=== PATIENT | male | born 1960 | race Caucasian/White ===

== ENCOUNTER → 2016-06-29 | Outpatient (CLI) | payer MEDICARE, OTHER ==
[2016-06-29 13:21] LABS: ALT 30 U/L (21-72); AST 26 U/L (17-59); Alkaline Phosphatase 58 U/L (38-126); Anion Gap 11 mmol/L; Blood Urea Nitrogen 11 mg/dL (9-20); Calcium 9.7 mg/dL (8.4-10.2); Carbon Dioxide 28 mmol/L (22-30); Chloride 97 mmol/L (98-107); Cholesterol 129 mg/dL (<200); Glucose 217 mg/dL (74-99); HDL Cholesterol 68 mg/dL (40-60); Non-African American GFR(MDRD) >60 (>60 ml/min/1.73 sqM); Potassium 4.3 mmol/L (3.5-5.1); Sodium 136 mmol/L (137-145); Total Bilirubin 0.7 mg/dL (0.2-1.3); Total Protein 7.1 g/dL (6.3-8.2); Triglycerides 56 mg/dL (<150)
--- NOTE | 2016-06-29 15:24 | CT ---
EXAMINATION TYPE: CT abdomen wo/w con DATE OF EXAM: 06/29/2016 2:31 PM REFERENCE: Previous study dated 01/28/2016. HISTORY: Pancreatitis K86.1 CT DLP: 1421 mGy Automated exposure control for dose reduction was used. TECHNIQUE: Helical acquisition through the abdomen and pelvis was obtained following the oral ingesti on of with Oral Contrast and following intravenous administration of 100 ml mL of Omnipaque 300. The data was reformatted in axial, coronal and sagittal projections. FINDINGS: Visualized portions of the lungs are clear. There is no pleural or pericardial fluid. The heart is upper limits of normal in size. Within the abdomen, there are gallstones within the gallbladder. The liver and spleen appear normal. Both adrenal glands appear normal. Both kidneys demonstrate function and appear morphologically normal. There are multiple calcifications associated with the pancreas indicating chronic calcific pancreatit is. A cystic lesion in the mid body of the pancreas is decreased in size from 2.3 cm to 1.7 cm. And 1 .6 x 1.4 cm cyst in the head of pancreas is enlarged. 3.1 x 2.3 cm on today's exam. There is no surro unding inflammatory change. There is no significant retroperitoneal adenopathy. There is considerable stool within the colon. Small bowel loops are unremarkable. There is hypertrophic spondylosis within the spine. No free fluid and no free air is seen. IMPRESSION: 1. CHANGING PICTURE OF PANCREATITIS WITH WAXING AND WANING A PANCREATIC CYST. 2. NO SIGNIFICANT PERIPANCREATIC INFLAMMATION. 3. CHOLELITHIASIS. 4. BORDERLINE CARDIOMEGALY. 5. CONSTIPATION.
== END | disposition home or self-care (01) ==
LOC: RADCTMAIN 12:11
DX: K86.1 Other chronic pancreatitis (principal); K86.2 Cyst of pancreas; K80.20 Calculus of gallbladder without cholecystitis without obstruction
CPT/HCPCS: 80061; 80053; 84443; 86301; 82043; 74170; 36415; Q9967

== ENCOUNTER → 2016-11-02 | Outpatient (CLI) | payer MEDICARE, OTHER ==
[2016-11-02 10:43] LABS: ALT 33 U/L (21-72); AST 24 U/L (17-59); Alkaline Phosphatase 56 U/L (38-126); Anion Gap 9 mmol/L; Blood Urea Nitrogen 20 mg/dL (9-20); Calcium 9.6 mg/dL (8.4-10.2); Carbon Dioxide 27 mmol/L (22-30); Chloride 104 mmol/L (98-107); Glucose 79 mg/dL (74-99); Magnesium 1.9 mg/dL (1.6-2.3); Non-African American GFR(MDRD) >60 (>60 ml/min/1.73 sqM); Potassium 4.1 mmol/L (3.5-5.1); Sodium 140 mmol/L (137-145); Total Bilirubin 0.3 mg/dL (0.2-1.3); Total Protein 6.2 g/dL (6.3-8.2)
[2016-11-02 11:32] LABS: Vitamin B12 267 pg/mL (239-931)
== END ==
LOC: LABWHC1 09:57
PROVIDERS: ATTEND Internal Medicine Endocrinology, Diabetes & Metabolism
DX: E11.65 Type 2 diabetes mellitus with hyperglycemia (principal); R63.4 Abnormal weight loss
CPT/HCPCS: 36415; 80053; 82533; 82607; 83735; 84439; 84443; 84681

== ENCOUNTER 2016-11-19 21:03 | Inpatient (IN) | payer MEDICARE, OTHER ==
[2016-11-19] MEDS ORDERED: ACETAMINOPHEN TAB 500 MG TAB PO STA (21:34)
[2016-11-19] MEDS ORDERED: LORazepam 2 MG/ML SYRINGE IV STA (21:35)
[2016-11-19] MEDS ORDERED: MORPHINE SULFATE 4 MG/ML SYRINGE IVP STA (21:35)
[2016-11-19] MEDS ORDERED: LEVOFLOXACIN 750MG-D5W PMX 750 MG in DEXTROSE/WATER 1 150ML.BAG IVPB STA (21:36)
[2016-11-19] MEDS ORDERED: methylPREDNISolone SOD SUCCI 125 MG/2 ML VIAL IV STA (21:36)
[2016-11-19] MEDS ORDERED: IPRATROPIUM 0.5 MG/2.5 ML NEBU INHALATION STA (21:36)
[2016-11-19] MEDS ORDERED: ALBUTEROL NEBULIZED 2.5 MG/3 ML INHALATION STA (21:36)
[2016-11-19] MEDS ORDERED: SODIUM CHLORIDE 0.9% 500 ML IV STA (21:36)
[2016-11-19] MEDS ORDERED: PIPERACILLIN-TAZOBACTAM 3.375 GM in DEXTROSE/WATER 1 50ML.BAG IVPB STA (21:36)
[2016-11-19] MEDS ORDERED: SODIUM CHLORIDE 0.9% 1,000 ML IV STA ×2 (21:36)
[2016-11-19 21:58] LABS: INR 1.1 (<1.2); Partial Thromboplastin Time 28.9 sec (22.0-30.0); Prothrombin Time 10.8 sec (9.0-12.0)
[2016-11-19 21:59] LABS: Basophils % (A) 0 %; CH 30.9; CHCM 34.2; Eosinophils % (A) 0 %; HCT 37.7 % (39.0-53.0); HDW 2.33; HGB 12.5 gm/dL (13.0-17.5); Luc # (Auto) 0.14; Luc % (Auto) 3; Lymphocytes # (A) 0.4 k/uL (1.0-4.8); Lymphocytes % (A) 8 %; MCH 30.1 pg (25.0-35.0); MCHC 33.2 g/dL (31.0-37.0); MCV 90.6 fL (80.0-100.0); Mean Platelet Volume 7.2; Monocytes # (A) 0.5 k/uL (0-1.0); Monocytes % (A) 10 %; Neutrophils # (A) 3.6 k/uL (1.3-7.7); Neutrophils % (A) 79 %; RBC 4.16 m/uL (4.30-5.90); RDW 13.4 % (11.5-15.5); WBC 4.6 k/uL (3.8-10.6)
[2016-11-19] MEDS ORDERED: PNEUMONIA PROTOCOL UTILIZED 1 EACH MISC PO PRN (21:59)
[2016-11-19] MEDS ORDERED: ALBUTEROL NEBULIZED 2.5 MG/3 ML INHALATION PRN (21:59)
[2016-11-19 22:00] LABS: ALT 34 U/L (21-72); AST 23 U/L (17-59); Alkaline Phosphatase 67 U/L (38-126); Anion Gap 11 mmol/L; Blood Urea Nitrogen 16 mg/dL (9-20); Calcium 9.5 mg/dL (8.4-10.2); Carbon Dioxide 23 mmol/L (22-30); Chloride 93 mmol/L (98-107); Glucose 104 mg/dL (74-99); Magnesium 1.7 mg/dL (1.6-2.3); Non-African American GFR(MDRD) >60 (>60 ml/min/1.73 sqM); Potassium 4.3 mmol/L (3.5-5.1); Sodium 127 mmol/L (137-145); Total Bilirubin 0.9 mg/dL (0.2-1.3); Total Protein 6.8 g/dL (6.3-8.2)
--- NOTE | 2016-11-19 22:01 | ED ---
General Adult HPI - General Chief complaint: Chest Pain Stated complaint: chest pain/SOB Time Seen by Provider: 11/19/16 21:24 Source: patient, family, RN notes reviewed, old records reviewed Mode of arrival: wheelchair Limitations: no limitations - History of Present Illness Initial comments: This is a 56-year-old male in the ER for evaluation. Patient presents to ER for evaluation regarding shortness of breath, severe shortness of breath with cough and congestion. Fever. Chest pain. Patient has history of COPD multiple recent hospital admissions. Patient is in significant distress, he does admit to smoking cigarettes. No recent travel history - Related Data Home Medications Medication Instructions Recorded Confirmed Albuterol Nebulized [Ventolin 2.5 mg INHALATION RT-QID PRN 08/21/13 12/09/15 Nebulized] Aspirin 325 mg PO DAILY 08/21/13 12/09/15 Carvedilol [Coreg] 3.125 mg PO BID 08/21/13 12/09/15 Furosemide [Lasix] 40 mg PO BID 08/21/13 12/09/15 Ipratropium/Albuterol Sulfate 1 puff INHALATION RT-QID PRN 08/21/13 12/09/15 [Combivent Respimat Inhaler] Lisinopril [Zestril] 2.5 mg PO BID 08/21/13 12/09/15 Spironolactone [Aldactone] 25 mg PO BID 08/21/13 12/09/15 Atorvastatin [Lipitor] 20 mg PO HS 04/23/14 12/09/15 Budesonide-Formot 160-4.5 Mcg 2 puff INHALATION RT-BID 04/23/14 12/09/15 [Symbicort 160-4.5 Mcg Inhaler] cycloSPORINE [Restasis] 1 drop LEFT EYE DAILY 04/23/14 12/09/15 Acetaminophen with Codeine 1 tab PO Q4H PRN 12/09/15 12/09/15 [Acetaminophen with Codeine #4] Ciprofloxacin-Dexameth [Ciprodex 4 drop LEFT EAR BID 12/09/15 12/09/15 Otic Susp] HYDROcodone/APAP 7.5-325MG [[place] 1 tab PO Q4H PRN 12/09/15 12/09/15 7.5-325] Insulin Aspart [NovoLOG Flexpen] See Protocol SQ PC-TID 12/09/15 12/09/15 Insulin Detemir [Levemir Flextouch] 26 units SQ BID 12/09/15 12/09/15 Zolpidem [Ambien] 5 mg PO HS PRN 12/09/15 12/09/15 glipiZIDE [Glucotrol] 10 mg PO DAILY 12/09/15 12/09/15 metFORMIN HCL 1,000 mg PO BID 12/09/15 12/09/15 oxyCODONE-APAP 7.5-325MG [Percocet 1 tab PO Q8H PRN 12/09/15 12/09/15 7.5-325 mg] Allergies Allergy/AdvReac Type Severity Reaction Status Date / Time meperidine HCl [From Demerol] Allergy Severe Rapid Verified 11/19/16 22:17 Heart Rate/VOMITING ibuprofen [From Motrin] AdvReac Vomiting Verified 11/19/16 22:17 Review of Systems ROS Statement: Those systems with pertinent positive or pertinent negative responses have been documented in the HPI. ROS Other: All systems not noted in ROS Statement are negative. Past Medical History Past Medical History: Coronary Artery Disease (CAD), Heart Failure, COPD, Diabetes Mellitus, Hyperlipidemia, Hypertension, Renal Disease Additional Past Medical History / Comment(s): PANCREATITIS, O2 DEPENDANT 4 LITERS N/[place], arthritis History of Any Multi-Drug Resistant Organisms: None Reported Past Surgical History: AICD, Pacemaker Past Anesthesia/Blood Transfusion Reactions: No Reported Reaction Type of Cardiac Device: Permanent Pacemaker, Unknown Device Placement Date:: 2009 Past Psychological History: No Psychological Hx Reported Smoking Status: Current some day smoker Past Alcohol Use History: Occasional Past Drug Use History: None Reported - Past Family History Father Family Medical History: Congestive Heart Failure (CHF), COPD, Diabetes Mellitus Additional Family Medical History / Comment(s): mrsa, gbs, asbestoes exposure/ lings Mother Family Medical History: Diabetes Mellitus, Hypertension General Exam Limitations: no limitations General appearance: alert, anxious, in distress, cachectic Head exam: Present: atraumatic, normocephalic, normal inspection Eye exam: Present: normal appearance, PERRL, EOMI. Absent: scleral icterus, conjunctival injection, periorbital swelling ENT exam: Present: normal exam, mucous membranes moist Neck exam: Present: normal inspection. Absent: tenderness, meningismus, lymphadenopathy Respiratory exam: Present: respiratory distress, wheezes, accessory muscle use, decreased breath sounds, prolonged expiratory. Absent: rales, rhonchi, stridor Cardiovascular Exam: Present: normal rhythm, tachycardia, normal heart sounds. Absent: systolic murmur, diastolic murmur, rubs, gallop, clicks GI/Abdominal exam: Present: soft, normal bowel sounds. Absent: distended, tenderness, guarding, rebound, rigid Extremities exam: Present: normal inspection, full ROM, normal capillary refill. Absent: tenderness, pedal edema, joint swelling, calf tenderness Back exam: Present: normal inspection Neurological exam: Present: alert, oriented X3, CN II-XII intact Psychiatric exam: Present: normal affect, normal mood Skin exam: Present: warm, dry, intact, normal color. 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 She was on BiPAP EKG Findings - EKG Comments: EKG Findings:: EKG shows sinus tachycardia rate of 129, TN 140, QRS 96, QTc 460 Medical Decision Making - Medical Decision Making 56 mailed to the ER for reevaluation significant shortness of breath or chest pain. Patient has positive pneumonia positive fever and severe respiratory failure on BiPAP. Patient be admitted for cardiopulmonary resuscitation evaluation - Lab Data Result diagrams: 11/19/16 21:35 11/19/16 21:35 Lab Results 11/19/16 11/19/16 11/19/16 Range/Units 21:35 21:35 21:35 WBC 4.6 (3.8-10.6) k/uL RBC 4.16 L (4.30-5.90) m/uL Hgb 12.5 L (13.0-17.5) gm/dL Hct 37.7 L (39.0-53.0) % MCV 90.6 (80.0-100.0) fL MCH 30.1 (25.0-35.0) pg MCHC 33.2 (31.0-37.0) g/dL RDW 13.4 (11.5-15.5) % Plt Count 180 (150-450) k/uL Neutrophils % 79 % Lymphocytes % 8 % Monocytes % 10 % Eosinophils % 0 % Basophils % 0 % Neutrophils # 3.6 (1.3-7.7) k/uL Lymphocytes # 0.4 L (1.0-4.8) k/uL Monocytes # 0.5 (0-1.0) k/uL Eosinophils # 0.0 (0-0.7) k/uL Basophils # 0.0 (0-0.2) k/uL PT 10.8 (9.0-12.0) sec INR 1.1 (<1.2) APTT 28.9 (22.0-30.0) sec Sodium 127 L (137-145) mmol/L Potassium 4.3 (3.5-5.1) mmol/L Chloride 93 L (98-107) mmol/L Carbon Dioxide 23 (22-30) mmol/L Anion Gap 11 mmol/L BUN 16 (9-20) mg/dL Creatinine 0.90 (0.66-1.25) mg/dL Est GFR (MDRD) Af Amer >60 (>60 ml/min/1.73 sqM) Est GFR (MDRD) Non-Af >60 (>60 ml/min/1.73 sqM) Glucose 104 H (74-99) mg/dL POC Glucose (mg/dL) (75-99) mg/dL POC Glu Chemic Mangler ID Plasma Lactic Acid Iam (0.7-2.0) mmol/L Calcium 9.5 (8.4-10.2) mg/dL Magnesium 1.7 (1.6-2.3) mg/dL Total Bilirubin 0.9 (0.2-1.3) mg/dL AST 23 (17-59) U/L ALT 34 (21-72) U/L Alkaline Phosphatase 67 (38-126) U/L Total Protein 6.8 (6.3-8.2) g/dL Albumin 4.3 (3.5-5.0) g/dL 11/19/16 11/19/16 Range/Units 21:35 21:58 WBC (3.8-10.6) k/uL RBC (4.30-5.90) m/uL Hgb (13.0-17.5) gm/dL Hct (39.0-53.0) % MCV (80.0-100.0) fL MCH (25.0-35.0) pg MCHC (31.0-37.0) g/dL RDW (11.5-15.5) % Plt Count (150-450) k/uL Neutrophils % % Lymphocytes % % Monocytes % % Eosinophils % % Basophils % % Neutrophils # (1.3-7.7) k/uL Lymphocytes # (1.0-4.8) k/uL Monocytes # (0-1.0) k/uL Eosinophils # (0-0.7) k/uL Basophils # (0-0.2) k/uL PT (9.0-12.0) sec INR (<1.2) APTT (22.0-30.0) sec Sodium (137-145) mmol/L Potassium (3.5-5.1) mmol/L Chloride (98-107) mmol/L Carbon Dioxide (22-30) mmol/L Anion Gap mmol/L BUN (9-20) mg/dL Creatinine (0.66-1.25) mg/dL Est GFR (MDRD) Af Amer (>60 ml/min/1.73 sqM) Est GFR (MDRD) Non-Af (>60 ml/min/1.73 sqM) Glucose (74-99) mg/dL POC Glucose (mg/dL) 109 H (75-99) mg/dL POC Glu Chemic Mangler Janeth Lopez Plasma Lactic Acid Iam 0.8 (0.7-2.0) mmol/L Calcium (8.4-10.2) mg/dL Magnesium (1.6-2.3) mg/dL Total Bilirubin (0.2-1.3) mg/dL AST (17-59) U/L ALT (21-72) U/L Alkaline Phosphatase (38-126) U/L Total Protein (6.3-8.2) g/dL Albumin (3.5-5.0) g/dL - Radiology Data Radiology results: report reviewed (Chest x-ray is positive for pneumonia), image reviewed Critical Care Time Critical Care Time: Yes Total Critical Care Time: 31 Disposition Clinical Impression: COPD (chronic obstructive pulmonary disease), Nosocomial pneumonia, Hypoxia, Respiratory failure Disposition: ADMITTED IP TO THIS HOSP Condition: Serious Referrals: Yusuf Lind MD [Primary Care Provider] - 1-2 days
--- NOTE | 2016-11-19 22:02 | XR ---
EXAMINATION TYPE: XR chest 1V portable DATE OF EXAM: 11/19/2016 COMPARISON: 12/09/2015 HISTORY: Chest pain and short of breath TECHNIQUE: Single frontal view of the chest is obtained. FINDINGS: There is some blunting of left costophrenic angle. There is infiltrate in the left lower l obe behind the heart. There is no heart failure. Heart size is normal. There is a left axillary pacem bea with the lead tip in the right ventricle. There are no hilar masses. IMPRESSION: There is new left lower lobe pneumonic infiltrate compared to last exam. No heart failur e. There is probably also a minimal right paraspinal right lower lobe new infiltrate.
[2016-11-19 22:15] LABS: Glucose,Whole Blood 109 mg/dL (75-99)
[2016-11-19 22:49] LABS: Creatine Kinase MB 0.3 ng/mL (0.0-2.4); Troponin I 0.033 ng/mL (0.000-0.034)
[2016-11-20 00:07] LABS: Glucose,Whole Blood 161 mg/dL (75-99)
[2016-11-20] MEDS ORDERED: PIPERACILLIN-TAZOBACTAM 3.375 GM in DEXTROSE/WATER 1 50ML.BAG IVPB STA (01:13)
[2016-11-20] MEDS: SODIUM CHLORIDE 0.9% 1,000 ML IV SCH ×4 (01:31→21:34)
[2016-11-20 07:06] LABS: Glucose,Whole Blood 302 mg/dL (75-99)
--- NOTE | 2016-11-20 07:19 | XR ---
EXAMINATION TYPE: XR chest 1V portable DATE OF EXAM: 11/20/2016 COMPARISON: 11/19/2016 HISTORY: Shortness of breath TECHNIQUE: Single frontal view of the chest is obtained. FINDINGS: The heart is enlarged diffuse hyperinflation. Cardiac device seen. Arthropathy of the shou lders noted. Subsegmental consolidation and tiny left effusion. Subsegmental changes in the right per ihilar region remain. Underlying COPD noted. Arthropathy shoulders. IMPRESSION: 1. Stable left lower lobe infiltrate and tiny effusion. 2. COPD with right perihilar infiltrate.
[2016-11-20] MEDS: IPRATROPIUM-ALBUTEROL 3 ML NEB INHALATION SCH ×4 (08:34→20:41)
[2016-11-20 09:14] VITALS: RESP 20
[2016-11-20] MEDS ORDERED: INSULIN DETEMIR 100 UNIT/ML 10 ML VIAL SQ SCH (09:30)
[2016-11-20] MEDS ORDERED: INSULIN LISPRO (humaLOG) 300 UNIT/3 ML VIAL SQ ONE (09:31)
[2016-11-20 09:45] LABS: Glucose,Whole Blood 333 mg/dL (75-99)
[2016-11-20] MEDS: PIPERACILLIN-TAZOBACTAM 3.375 GM in DEXTROSE/WATER 1 50ML.BAG IVPB SCH ×3 (09:50→23:31)
[2016-11-20] MEDS: ENOXAPARIN 40 MG/0.4 ML SYRINGE SQ SCH (09:50)
[2016-11-20 11:50] LABS: Glucose,Whole Blood 542 mg/dL (75-99)
--- NOTE | 2016-11-20 12:11 | P.CNPUL ---
History of Present Illness Consult date: 11/20/16 Requesting physician: Yusuf Lind Reason for consult: dyspnea Chief complaint: Shortness of breath, cough and congestion. Chest pain History of present illness: This is a very pleasant 56-year-old gentleman who follows with Dr. Lind as his primary care physician. He has a history of coronary artery disease with ischemic cardiomyopathy status post AICD placement, pancreatitis with previous alcohol abuse, diabetes mellitus, hypertension, hyperlipidemia, renal disease. The patient also has significant chronic obstructive pulmonary disease and is oxygen dependent usually on 4 L in the outpatient setting. Unfortunately he continues to smoke. He follows with Dr. Khanna in our office for the same. He is maintained on Symbicort and Combivent in the outpatient setting. He presented here to the emergency room yesterday with complaints of chest pain, shortness of breath cough and congestion. His chest x-ray revealed a left lower lobe pneumonic infiltrate. There is a minimal right perihilar infiltrate as well. He did present with a T-max of 102.5. No leukocytosis. Hemodynamically stable. He is maintaining good O2 saturations in the 90s on the 4 L/m per nasal cannula. Sodium was low at 127. Review of Systems 14 point review of system was conducted. All negative other than as mentioned in the HPI. Past Medical History Past Medical History: Coronary Artery Disease (CAD), Heart Failure, COPD, Diabetes Mellitus, Hyperlipidemia, Hypertension, Renal Disease Additional Past Medical History / Comment(s): PANCREATITIS, O2 DEPENDANT 4 LITERS N/[place], arthritis. bone infection L ear, hole in eardrum. History of Any Multi-Drug Resistant Organisms: None Reported Past Surgical History: AICD, Pacemaker Past Anesthesia/Blood Transfusion Reactions: No Reported Reaction Type of Cardiac Device: Permanent Pacemaker, Unknown Device Placement Date:: 2009 Past Psychological History: No Psychological Hx Reported Smoking Status: Current some day smoker Past Alcohol Use History: Occasional Additional Past Alcohol Use History / Comment(s): started smoking age 8, smoked 2 ppd, quit 2012 after severl attempts to quit, drinks occassionaly Past Drug Use History: None Reported - Past Family History Father Family Medical History: Congestive Heart Failure (CHF), COPD, Diabetes Mellitus Additional Family Medical History / Comment(s): mrsa, gbs, asbestoes exposure/ lings Mother Family Medical History: Diabetes Mellitus, Hypertension Medications and Allergies Home Medications Medication Instructions Recorded Confirmed Type Albuterol Nebulized [Ventolin 2.5 mg INHALATION RT-QID PRN 08/21/13 11/20/16 History Nebulized] Furosemide [Lasix] 40 mg PO BID 08/21/13 11/20/16 History Ipratropium/Albuterol Sulfate 1 puff INHALATION RT-QID PRN 08/21/13 11/20/16 History [Combivent Respimat Inhaler] Lisinopril [Zestril] 2.5 mg PO BID 08/21/13 11/20/16 History Spironolactone [Aldactone] 25 mg PO DAILY 08/21/13 11/20/16 History Insulin Detemir [Levemir Flextouch] 23 units SQ BID 12/09/15 11/20/16 History glipiZIDE [Glucotrol] 15 mg PO DAILY 12/09/15 11/20/16 History metFORMIN HCL 1,000 mg PO BID 12/09/15 11/20/16 History Fluticasone/Vilanterol [Breo 1 puff INHALATION RT-DAILY 11/20/16 11/20/16 History Ellipta 200-25 Mcg INH] Hydrocodone/Acetaminophen [[place] 1 tab PO Q4H PRN 11/20/16 11/20/16 History 10-325] Lipase/Protease/Amylase [Alesia Dr 1 cap PO TID 11/20/16 11/20/16 History 36,000 Units Capsule] Metoprolol Succinate (ER) [Toprol 50 mg PO DAILY 11/20/16 11/20/16 History Xl] Allergies Allergy/AdvReac Type Severity Reaction Status Date / Time meperidine HCl [From Demerol] Allergy Severe Rapid Verified 11/19/16 22:17 Heart Rate/VOMITING ibuprofen [From Motrin] AdvReac Vomiting Verified 11/19/16 22:17 Physical Exam Vitals: Vital Signs Temp Pulse Pulse Pulse Resp BP BP 11/20/16 08:47 96 11/20/16 08:34 92 11/20/16 08:00 98.9 F 90 20 118/72 11/20/16 03:46 98.6 F 97 24 140/85 11/20/16 00:00 98.6 F 112 H 30 H 116/76 11/19/16 23:42 11/19/16 23:12 99.0 F 126 H 30 H 109/62 11/19/16 22:38 98.6 F 112 H 30 H 116/76 11/19/16 22:29 128 H 11/19/16 22:00 127 H 11/19/16 21:45 125 H 11/19/16 21:27 129 H 11/19/16 21:22 102.5 F H 129 H 40 H 126/76 Pulse Ox 11/20/16 08:47 11/20/16 08:34 11/20/16 08:00 96 11/20/16 03:46 98 11/20/16 00:00 100 11/19/16 23:42 100 11/19/16 23:12 98 11/19/16 22:38 100 11/19/16 22:29 11/19/16 22:00 11/19/16 21:45 11/19/16 21:27 11/19/16 21:22 95 Intake and Output 11/19/16 11/20/16 11/20/16 22:59 06:59 14:59 Intake Total 100 1160 Output Total 800 Balance -700 1160 Intake: Intake, IV Titration 100 800 Amount Sodium Chloride 0.9% 1, 100 800 000 ml @ 100 mls/hr IV . Q10H JOSY Rx#:[id number] Oral 360 Output: Urine 800 Other: # Voids 1 Weight 55 kg 53 kg GENERAL EXAM: Alert, weak, comfortable in no apparent distress. HEAD: Normocephalic. EYES: Normal reaction of pupils, equal size. NOSE: Clear with pink turbinates. THROAT: No erythema or exudates. NECK: No masses, no JVD. CHEST: No chest wall deformity. LUNGS: Equal air entry with crackles in the posterior bases more so on the left. Diminished. CVS: S1 and S2 normal with no audible murmurs, regular rhythm. ABDOMEN: No hepatosplenomegaly, normal bowel sounds, no guarding or rigidity. SPINE: No scoliosis or deformity SKIN: No rashes CENTRAL NERVOUS SYSTEM: No focal deficits, tone is normal in all 4 extremities. Extremities: There is trace peripheral edema. No clubbing, no cyanosis. Peripheral pulses are intact. Results - Laboratory Findings CBC and BMP: 11/19/16 21:35 11/19/16 21:35 PT/INR, D-dimer PT 10.8 sec (9.0-12.0) 11/19/16 21:35 INR 1.1 (<1.2) 11/19/16 21:35 Abnormal lab findings: Abnormal Labs 11/19/16 11/19/16 11/19/16 21:35 21:35 21:35 RBC 4.16 L Hgb 12.5 L Hct 37.7 L Lymphocytes # 0.4 L Sodium 127 L Chloride 93 L Glucose 104 H POC Glucose (mg/dL) Total Creatine Kinase 33 L 11/19/16 11/19/16 11/20/16 21:58 23:55 07:02 RBC Hgb Hct Lymphocytes # Sodium Chloride Glucose POC Glucose (mg/dL) 109 H 161 H 302 H Total Creatine Kinase 11/20/16 11/20/16 09:32 11:49 RBC Hgb Hct Lymphocytes # Sodium Chloride Glucose POC Glucose (mg/dL) 333 H 542 H Total Creatine Kinase - Diagnostic Findings Chest x-ray: image reviewed Assessment and Plan Plan: Impression: #1 Acute community-acquired left lower lobe pneumonia. #2 Acute exacerbation of chronic obstructive pulmonary disease secondary to above. #3 Chronic and ongoing tobacco dependence. #4 Coronary artery disease. #5 Ischemic cardiomyopathy status post AICD placement. #6 History of pancreatitis. #7 History of previous alcohol abuse. #8 Diabetes mellitus with steroid-induced hyperglycemia. #9 Hypertension. #10 Hyperlipidemia. Plan: The patient was seen and evaluated by Dr. Ray. His chest x-rays and labs were reviewed. We will continue with his current medications including DuoNeb inhalations 4 times a day and when necessary, Symbicort and antibiotics in the form of Zosyn and Levaquin. He is on Lovenox for DVT prophylaxis. We will increase his activity as tolerated. We'll continue to follow.
[2016-11-20] MEDS ORDERED: INSULIN LISPRO (humaLOG) 300 UNIT/3 ML VIAL SQ STA (12:12)
[2016-11-20 12:13] LABS: Glucose,Whole Blood 540 mg/dL (75-99)
[2016-11-20] MEDS ORDERED: INSULIN REGULAR BOLUS (FROM DRIP BAG) IV ONE (12:17)
[2016-11-20] MEDS ORDERED: INSULIN LISPRO (humaLOG) 300 UNIT/3 ML VIAL SQ SCH ×5 (12:30)
[2016-11-20 12:42] VITALS: BMI 17.2
[2016-11-20 13:02] LABS: Glucose,Whole Blood 545 mg/dL (75-99)
[2016-11-20] MEDS: INSULIN REGULAR 100 UNIT in SODIUM CHLORIDE 0.9% 100 ML IV SCH ×6 (13:06→20:14)
[2016-11-20] MEDS: INSULIN LISPRO (humaLOG) 300 UNIT/3 ML VIAL SQ SCH ×2 (13:18→17:17)
[2016-11-20] MEDS: HYDROcodone/APAP 10-325MG 1 EACH TAB PO PRN ×2 (13:30→23:45)
[2016-11-20 13:38] LABS: Glucose,Whole Blood >600 mg/dL (75-99)
[2016-11-20 14:19] LABS: Hemoglobin A1C 11.1 % (4.2-6.1)
[2016-11-20 14:37] LABS: Glucose,Whole Blood 498 mg/dL (75-99)
[2016-11-20 15:15] LABS: Glucose,Whole Blood 462 mg/dL (75-99)
[2016-11-20] MEDS: LISINOPRIL 2.5 MG TAB PO SCH ×2 (15:37→20:04)
[2016-11-20] MEDS: methylPREDNISolone SOD SUCCI 125 MG/2 ML VIAL IV SCH ×3 (15:37→23:30)
[2016-11-20] MEDS: FUROSEMIDE 40 MG TAB PO SCH ×2 (15:37→20:04)
[2016-11-20] MEDS: METOPROLOL SUCCINATE (ER) 50 MG TAB.ER.24H PO SCH (15:38)
[2016-11-20] MEDS: SPIRONOLACTONE 25 MG TAB PO SCH (15:38)
[2016-11-20 15:47] LABS: Glucose,Whole Blood 450 mg/dL (75-99)
[2016-11-20 16:12] LABS: Glucose,Whole Blood 415 mg/dL (75-99)
[2016-11-20] MEDS: HYDROmorphone 1 MG/ML 1 ML SYRINGE IVP PRN ×2 (16:12→21:39)
[2016-11-20 16:14] LABS: Basophils % (A) 0 %; CHCM 31.5; Eosinophils % (A) 0 %; HCT 34.8 % (39.0-53.0); HDW 2.39; HGB 11.1 gm/dL (13.0-17.5); Luc # (Auto) 0.07; Luc % (Auto) 1; Lymphocytes # (A) 0.3 k/uL (1.0-4.8); Lymphocytes % (A) 6 %; MCH 30.7 pg (25.0-35.0); Mean Platelet Volume 7.3; Monocytes # (A) 0.3 k/uL (0-1.0); Monocytes % (A) 7 %; Neutrophils % (A) 85 %; RBC 3.64 m/uL (4.30-5.90); RDW 13.5 % (11.5-15.5); WBC 4.6 k/uL (3.8-10.6); WBC (Perox) 4.89
[2016-11-20 16:20] LABS: MCV 95.7 fL (80.0-100.0)
[2016-11-20 16:23] LABS: Anion Gap 11 mmol/L; Blood Urea Nitrogen 25 mg/dL (9-20); Calcium 8.4 mg/dL (8.4-10.2); Carbon Dioxide 17 mmol/L (22-30); Chloride 101 mmol/L (98-107); Non-African American GFR(MDRD) 59 (>60 ml/min/1.73 sqM); Potassium 4.1 mmol/L (3.5-5.1); Sodium 129 mmol/L (137-145)
[2016-11-20 16:36] LABS: Glucose,Whole Blood 332 mg/dL (75-99)
[2016-11-20 16:40] LABS: Glucose 503 mg/dL (74-99)
[2016-11-20 17:16] LABS: Glucose,Whole Blood 283 mg/dL (75-99)
[2016-11-20] MEDS: LIPASE 5,000/PROTEASE 17,000/AMYLASE 27,0000 PO SCH ×2 (17:16→20:04)
[2016-11-20] MEDS ORDERED: SUCRALFATE 1 GM TAB PO SCH (17:30)
[2016-11-20 17:37] LABS: Glucose,Whole Blood 261 mg/dL (75-99)
[2016-11-20 18:01] LABS: Glucose,Whole Blood 254 mg/dL (75-99)
[2016-11-20 18:45] LABS: Glucose,Whole Blood 265 mg/dL (75-99)
[2016-11-20 20:03] LABS: Glucose,Whole Blood 207 mg/dL (75-99)
[2016-11-20] MEDS: SYMBICORT 160-4.5 MCG INHALER INHALATION SCH (20:42)
[2016-11-20] MEDS ORDERED: PANTOPRAZOLE 40 MG/10 ML VIAL IVP SCH (21:00)
[2016-11-20] MEDS ORDERED: LEVOFLOXACIN 750MG-D5W PMX 750 MG in DEXTROSE/WATER 1 150ML.BAG IVPB SCH (21:00)
[2016-11-20 21:55] LABS: Glucose,Whole Blood 137 mg/dL (75-99)
[2016-11-20 23:52] LABS: Glucose,Whole Blood 114 mg/dL (75-99)
[2016-11-21 01:14] LABS: Glucose,Whole Blood 161 mg/dL (75-99)
[2016-11-21] MEDS: HYDROmorphone 1 MG/ML 1 ML SYRINGE IVP PRN ×2 (02:35→06:19)
[2016-11-21 02:50] LABS: Glucose,Whole Blood 163 mg/dL (75-99)
[2016-11-21 03:50] LABS: Basophils % (A) 0 %; CH 29.7; CHCM 31.9; Eosinophils % (A) 1 %; HCT 32.1 % (39.0-53.0); HDW 2.45; HGB 10.6 gm/dL (13.0-17.5); Luc # (Auto) 0.13; Luc % (Auto) 3; Lymphocytes # (A) 0.4 k/uL (1.0-4.8); Lymphocytes % (A) 10 %; MCH 30.8 pg (25.0-35.0); MCV 93.5 fL (80.0-100.0); Mean Platelet Volume 7.2; Monocytes # (A) 0.3 k/uL (0-1.0); Monocytes % (A) 7 %; Neutrophils % (A) 80 %; RBC 3.44 m/uL (4.30-5.90); RDW 13.5 % (11.5-15.5); WBC 3.8 k/uL (3.8-10.6); WBC (Perox) 3.87
[2016-11-21 04:41] LABS: Anion Gap 10 mmol/L; Blood Urea Nitrogen 34 mg/dL (9-20); Calcium 8.5 mg/dL (8.4-10.2); Carbon Dioxide 17 mmol/L (22-30); Chloride 106 mmol/L (98-107); Glucose 158 mg/dL (74-99); Non-African American GFR(MDRD) >60 (>60 ml/min/1.73 sqM); Potassium 4.4 mmol/L (3.5-5.1); Sodium 133 mmol/L (137-145)
[2016-11-21] MEDS: methylPREDNISolone SOD SUCCI 125 MG/2 ML VIAL IV SCH ×2 (05:15→11:06)
[2016-11-21 05:36] LABS: Glucose,Whole Blood 176 mg/dL (75-99)
[2016-11-21 06:32] LABS: Glucose,Whole Blood 204 mg/dL (75-99)
[2016-11-21] MEDS: INSULIN LISPRO (humaLOG) 300 UNIT/3 ML VIAL SQ SCH ×2 (07:15→12:21)
[2016-11-21] MEDS: HYDROcodone/APAP 10-325MG 1 EACH TAB PO PRN (07:23)
[2016-11-21] MEDS: SYMBICORT 160-4.5 MCG INHALER INHALATION SCH (07:49)
[2016-11-21] MEDS: IPRATROPIUM-ALBUTEROL 3 ML NEB INHALATION SCH ×2 (07:49→10:50)
[2016-11-21] MEDS ORDERED: NON-FORMULARY DRUG (Fluticasone/Vilanterol [Breo Ellipta 200-25 Mcg Inh] 1 PUFF) INHALATION SCH (08:00)
[2016-11-21 08:16] LABS: Glucose,Whole Blood 238 mg/dL (75-99)
[2016-11-21] MEDS: ENOXAPARIN 40 MG/0.4 ML SYRINGE SQ SCH (08:22)
[2016-11-21] MEDS: LIPASE 5,000/PROTEASE 17,000/AMYLASE 27,0000 PO SCH (08:23)
[2016-11-21] MEDS: FUROSEMIDE 40 MG TAB PO SCH (08:23)
[2016-11-21] MEDS: LISINOPRIL 2.5 MG TAB PO SCH (08:23)
[2016-11-21] MEDS: SPIRONOLACTONE 25 MG TAB PO SCH (08:24)
[2016-11-21] MEDS: METOPROLOL SUCCINATE (ER) 50 MG TAB.ER.24H PO SCH (08:24)
[2016-11-21] MEDS: PIPERACILLIN-TAZOBACTAM 3.375 GM in DEXTROSE/WATER 1 50ML.BAG IVPB SCH (08:33)
[2016-11-21] MEDS ORDERED: PANTOPRAZOLE 40 MG/10 ML VIAL IVP SCH (09:00)
[2016-11-21 10:11] LABS: Glucose,Whole Blood 277 mg/dL (75-99)
--- NOTE | 2016-11-21 11:31 | HP ---
DATE OF ADMISSION: 11/20/16 I am covering for Dr. Lind. CHIEF COMPLAINT: Chest pain, shortness of breath, cough and sputum. HISTORY OF PRESENT ILLNESS: This 56-year-old gentleman with past medical history of multiple medical problems including CAD, COPD, CHF, hypertension, being followed by Dr. Lind as well as Dr. Khanna in the outpatient setting, was not feeling well over the past several days. The patient has shortness of breath as well as cough and congestion. The patient was found to have multilobar pneumonia. The patient came to [facility] and was admitted to the hospital for further evaluation and treatment. The patient was given steroids and bronchodilators. The patient feeling slightly better but however, the blood sugars are more than 500 with steroids and insulin that has been initiated. There is no history of fever, rigors or chills. No history of headache, loss of consciousness or seizures. Past medical history of CAD, COPD, diabetes, hypertension, hyperlipidemia. Mediations prior to admission include: Home medications are: 1. Toprol XL 50 mg po daily. 2. Lipase. 3. Amylase. 4. [place] one tablets po t.i.d. 5. Breo Ellipta one puff daily. 6. Metformin 1000 mg po b.i.d. 7. Glucotrol 15 mg po daily. 8. Aldactone 25 mg po daily. 9. Zestril 2.5 mg po b.i.d. 10. Combivent one puff q.i.d. and prn. 11. Levemir 23 units subcu b.i.d. 12. [place] one tablet q4h prn. 13. Lasix 40 mg po b.i.d. 14. Ventolin 2.5 mg q.i.d. prn ALLERGIES: DEMEROL, MOTRIN. FAMILY HISTORY: History of CHF and COPD, diabetes mellitus. SOCIAL HISTORY: History of smoking. No history of alcohol intake. REVIEW OF SYSTEMS: HEENT: No diminished vision. No diminished hearing. Cardiovascular system: As mentioned earlier. Respiratory: As mentioned earlier. GI: No nausea or vomiting. : No dysuria. Nervous system: No numbness, weakness. Allergy/Immunology: No asthma or hayfever. Musculoskeletal : As mentioned earlier. Hematology/oncology: No history of anemia. Endocrine: as mentioned earlier. Constitutional: As mentioned earlier. Dermatology: Negative. Rheumatology: Negative. Psychiatry: As mentioned earlier. PHYSICAL EXAMINATION: The patient is alert, oriented times three. Pulse 84. Blood pressure 120/73. Respiratory rate 20, temperature 98.4. Pulse ox 100% on 4 L. HEENT: Conjunctivae normal. Oral mucosa moist. NECK: No JVD. No thyroid enlargement. No lymph node enlargement. Cardiovascular: S1, S2 muffled. Respiratory: Breath sounds diminished at the bases. No rhonchi and no crackles. No bronchial breath sounds. Abdomen is soft, nontender. No mass palpable. Legs: No edema. No swelling. Nervous system: Higher functions as mentioned earlier. Moves all four limbs. No focal motor or sensory deficits. Lymphatics: No lymph nodes palpable in the neck, axilla or groin. Skin: No ulcer, rash or bleeding. LABS: At this time shows x-ray reviewed. Accu-Cheks noted. WBC 4.6, hemoglobin 11.9, sodium 129. FINAL DIAGNOSES: 1. Chronic obstructive pulmonary disease acute exacerbation with bibasilar pneumonia, mostly left lower lobe pneumonia. 2. History of nicotine dependence. 3. Diabetes mellitus Type 2 uncontrolled. 4. Hyponatremia. 5. History of hypertension. 6. History of hyperlipidemia. 7. History of pancreatitis. RECOMMENDATIONS AND DISCUSSION: In this 56 -year-old gentleman who presented with multiple medical issues, we will monitor the patient closely, continue the current medications. We will optimize bronchodilator treatment and empiric antibiotics. Closely follow with pulmonary. Obtain the cultures. Resume the home medications. DVT prophylaxis. Otherwise, proton pump inhibitors. See orders for further details. Prognosis guarded. Further recommendations to follow. MTDD
--- NOTE | 2016-11-21 11:33 | P.PN ---
Subjective Progress note dated 11/21/2016 56-year-old male who sees Dr. Lind and also my partner. I the patient has a history of CAD with previous AICD placement pancreatitis secondary to alcohol abuse diabetes mellitus hypertension hyperlipidemia and chronic renal disease. The patient also has oxygen-dependent COPD. This is why he sees my partner. He continues to smoke. He was admitted with a diagnosis of a respiratory complaints including shortness breath chest congestion cough and phlegm production. Chest x-ray revealed a left lower lobe infiltrate/pneumonia. His temperature was elevated. He was seen yesterday in consultation by myself my nurse practitioner. Apparently today he wants to be discharged. Not a very compliant male who does not give a very good history. Objective - Vital Signs Vital signs: Vital Signs Temp 97.8 F 11/21/16 08:00 Pulse 72 11/21/16 11:01 Resp 20 11/21/16 08:00 BP 95/60 11/21/16 08:00 Pulse Ox 100 11/21/16 08:00 Intake & Output 11/20/16 11/21/16 11/21/16 18:59 06:59 18:59 Intake Total 1478.867 41.458 133.200 Balance 1478.867 41.458 133.200 Weight 53 kg 56.4 kg Intake: Intake, IV Titration 878.867 41.458 13.200 Amount Insulin Regular 100 unit 78.867 41.458 13.200 In Sodium Chloride 0.9% 100 ml @ Titrate IV .Q0M JOSY Rx#:[id number] Sodium Chloride 0.9% 1, 800 000 ml @ 100 mls/hr IV . Q10H JOSY Rx#:[id number] Oral 600 120 Other: # Voids 2 - Exam No acute distress, oriented 3. No respiratory distress. HEENT examination is unremarkable lesions. Neck is supple. Full range of motion. No adenopathy thyromegaly or neck vein distention. Cardiovascular examination reveals regular rhythm rate. S1-S2 normal. No S3- S4 or murmur. Lungs reveal a few scattered coarse rhonchi. Breath sounds are equal but diminished. No crackles. No wheezes. Abdomen soft bowel sounds are heard. Extremities are intact. No cyanosis clubbing. No edema. Skin without rash. Neurologic examination is nonfocal. - Labs CBC & Chem 7: 11/21/16 03:37 11/21/16 03:37 Labs: Abnormal Lab Results - Last 24 Hours (Table) 11/19/16 11/20/16 11/20/16 Range/Units 21:35 11:49 12:04 RBC (4.30-5.90) m/uL Hgb (13.0-17.5) gm/dL Hct (39.0-53.0) % Lymphocytes # (1.0-4.8) k/uL Sodium (137-145) mmol/L Carbon Dioxide (22-30) mmol/L BUN (9-20) mg/dL Creatinine (0.66-1.25) mg/dL Glucose (74-99) mg/dL POC Glucose (mg/dL) 542 H 540 H (75-99) mg/dL Hemoglobin A1c 11.1 H (4.2-6.1) % 11/20/16 11/20/16 11/20/16 Range/Units 13:00 13:34 14:24 RBC (4.30-5.90) m/uL Hgb (13.0-17.5) gm/dL Hct (39.0-53.0) % Lymphocytes # (1.0-4.8) k/uL Sodium (137-145) mmol/L Carbon Dioxide (22-30) mmol/L BUN (9-20) mg/dL Creatinine (0.66-1.25) mg/dL Glucose (74-99) mg/dL POC Glucose (mg/dL) 545 H >600 H 498 H (75-99) mg/dL Hemoglobin A1c (4.2-6.1) % 11/20/16 11/20/16 11/20/16 Range/Units 15:03 15:21 15:21 RBC 3.64 L (4.30-5.90) m/uL Hgb 11.1 L (13.0-17.5) gm/dL Hct 34.8 L (39.0-53.0) % Lymphocytes # 0.3 L (1.0-4.8) k/uL Sodium 129 L (137-145) mmol/L Carbon Dioxide 17 L (22-30) mmol/L BUN 25 H (9-20) mg/dL Creatinine 1.26 H (0.66-1.25) mg/dL Glucose 503 H* (74-99) mg/dL POC Glucose (mg/dL) 462 H (75-99) mg/dL Hemoglobin A1c (4.2-6.1) % 11/20/16 11/20/16 11/20/16 Range/Units 15:36 15:59 16:30 RBC (4.30-5.90) m/uL Hgb (13.0-17.5) gm/dL Hct (39.0-53.0) % Lymphocytes # (1.0-4.8) k/uL Sodium (137-145) mmol/L Carbon Dioxide (22-30) mmol/L BUN (9-20) mg/dL Creatinine (0.66-1.25) mg/dL Glucose (74-99) mg/dL POC Glucose (mg/dL) 450 H 415 H 332 H (75-99) mg/dL Hemoglobin A1c (4.2-6.1) % 11/20/16 11/20/16 11/20/16 Range/Units 17:05 17:35 18:00 RBC (4.30-5.90) m/uL Hgb (13.0-17.5) gm/dL Hct (39.0-53.0) % Lymphocytes # (1.0-4.8) k/uL Sodium (137-145) mmol/L Carbon Dioxide (22-30) mmol/L BUN (9-20) mg/dL Creatinine (0.66-1.25) mg/dL Glucose (74-99) mg/dL POC Glucose (mg/dL) 283 H 261 H 254 H (75-99) mg/dL Hemoglobin A1c (4.2-6.1) % 11/20/16 11/20/16 11/20/16 Range/Units 18:35 19:43 21:44 RBC (4.30-5.90) m/uL Hgb (13.0-17.5) gm/dL Hct (39.0-53.0) % Lymphocytes # (1.0-4.8) k/uL Sodium (137-145) mmol/L Carbon Dioxide (22-30) mmol/L BUN (9-20) mg/dL Creatinine (0.66-1.25) mg/dL Glucose (74-99) mg/dL POC Glucose (mg/dL) 265 H 207 H 137 H (75-99) mg/dL Hemoglobin A1c (4.2-6.1) % 11/20/16 11/21/16 11/21/16 Range/Units 23:40 00:50 02:38 RBC (4.30-5.90) m/uL Hgb (13.0-17.5) gm/dL Hct (39.0-53.0) % Lymphocytes # (1.0-4.8) k/uL Sodium (137-145) mmol/L Carbon Dioxide (22-30) mmol/L BUN (9-20) mg/dL Creatinine (0.66-1.25) mg/dL Glucose (74-99) mg/dL POC Glucose (mg/dL) 114 H 161 H 163 H (75-99) mg/dL Hemoglobin A1c (4.2-6.1) % 11/21/16 11/21/16 11/21/16 Range/Units 03:37 03:37 05:16 RBC 3.44 L (4.30-5.90) m/uL Hgb 10.6 L (13.0-17.5) gm/dL Hct 32.1 L (39.0-53.0) % Lymphocytes # 0.4 L (1.0-4.8) k/uL Sodium 133 L (137-145) mmol/L Carbon Dioxide 17 L (22-30) mmol/L BUN 34 H (9-20) mg/dL Creatinine (0.66-1.25) mg/dL Glucose 158 H (74-99) mg/dL POC Glucose (mg/dL) 176 H (75-99) mg/dL Hemoglobin A1c (4.2-6.1) % 11/21/16 11/21/16 11/21/16 Range/Units 06:16 08:02 09:59 RBC (4.30-5.90) m/uL Hgb (13.0-17.5) gm/dL Hct (39.0-53.0) % Lymphocytes # (1.0-4.8) k/uL Sodium (137-145) mmol/L Carbon Dioxide (22-30) mmol/L BUN (9-20) mg/dL Creatinine (0.66-1.25) mg/dL Glucose (74-99) mg/dL POC Glucose (mg/dL) 204 H 238 H 277 H (75-99) mg/dL Hemoglobin A1c (4.2-6.1) % Microbiology - Last 24 Hours (Table) 11/19/16 21:35 Blood Culture - Preliminary Blood No Growth after 24 hours Assessment and Plan (1) COPD (chronic obstructive pulmonary disease) Status: Acute (2) Hypoxia Status: Acute (3) Nosocomial pneumonia Status: Acute (4) Respiratory failure Status: Acute (5) Chronic pancreatitis Status: Acute (6) Diabetes Status: Acute (7) NICM (nonischemic cardiomyopathy) Status: Acute (8) Pancreatitis Status: Acute Plan: Date plan dated 11/21/2016 This 56-year-old male well-known to our service was admitted with a diagnosis of community-acquired left lower lobe pneumonia and COPD exacerbation. Doing better today. Apparently expressed a desire to be discharged. In addition, the patient has history of chronic and ongoing tobacco use CAD and ischemic cardiomyopathy, status post AICD placement pancreatitis previous alcohol abuse diabetes mellitus hypertension and hyperlipidemia. The patient was placed on DuoNeb as Symbicort antibiotics. The patient possibly may be discharged today. Up to the hospitalist. We'll continue to follow. We encourage him to follow up with Dr. Khanna and our office. Time with Patient: Less than 30
[2016-11-21 12:14] LABS: Glucose,Whole Blood 219 mg/dL (75-99)
[2016-11-21 12:37] VITALS: BP 85/49; PULSE 80; TEMP 97.5
[2016-11-21 14:19] LABS: Glucose,Whole Blood 226 mg/dL (75-99)
--- NOTE | 2016-11-21 18:36 | P.DS ---
Providers Date of admission: 11/19/16 21:59 Attending physician: Yusuf Lind Consults: 11/19/16 21:59 Consult Physician Routine Consulting Provider: Steve Khanna Consult Reason/Comments: known Do you want consulting provider notified?: Yes Primary care physician: Yusuf Lind Hospital Course: This 56-year-old gentleman was admitted with COPD acute exacerbation as well as by Mr. pneumonia. Patient improved significantly with the treatment. Patient was seen by Dr. Bower on consultation. Patient is keen on going home. Patient has to have some appointments in the next few days according to him. He will follow-up with Dr. Lind and Dr. Khanna as an outpatient. On exam vitals stable. Cardio S1 and S2 normal. Respirator system bilateral scattered rhonchi and a few crackles. Abdomen soft nontender. Nervous system no focal deficit. Final diagnosis 1. COPD acute exacerbation with possibly left lower lobe pneumonia possibly gram-negative. Improved 2. History and nicotine dependence 3. Diabetes was type II uncontrolled 4. Hyponatremia 5. History of hypertension Patient Condition at Discharge: Serious Plan - Discharge Summary New Discharge Prescriptions: New Azithromycin [Zithromax] 500 mg PO DAILY #5 tab Cefuroxime Axetil [Ceftin] 500 mg PO BID #10 tab predniSONE 10 mg PO DIRECTED #6 tab Continue Furosemide [Lasix] 40 mg PO BID Spironolactone [Aldactone] 25 mg PO DAILY Lisinopril [Zestril] 2.5 mg PO BID Ipratropium/Albuterol Sulfate [Combivent Respimat Inhaler] 1 puff INHALATION RT-QID PRN PRN Reason: Shortness Of Breath glipiZIDE [Glucotrol] 15 mg PO DAILY metFORMIN HCL 1,000 mg PO BID Insulin Detemir [Levemir Flextouch] 23 units SQ BID Metoprolol Succinate (ER) [Toprol XL] 50 mg PO DAILY Lipase/Protease/Amylase [[place] 36,000 Units Capsule] 1 cap PO TID Fluticasone/Vilanterol [Breo Ellipta 200-25 Mcg INH] 1 puff INHALATION RT- DAILY Hydrocodone/Acetaminophen [[place] 10-325] 1 tab PO Q4H PRN PRN Reason: Pain Changed Albuterol Nebulized [Ventolin Nebulized] 2.5 mg INHALATION RT-QID #0 Discharge Medication List Furosemide [Lasix] 40 mg PO BID 08/21/13 [History] Ipratropium/Albuterol Sulfate [Combivent Respimat Inhaler] 1 puff INHALATION RT- QID PRN 08/21/13 [History] Lisinopril [Zestril] 2.5 mg PO BID 08/21/13 [History] Spironolactone [Aldactone] 25 mg PO DAILY 08/21/13 [History] Insulin Detemir [Levemir Flextouch] 23 units SQ BID 12/09/15 [History] glipiZIDE [Glucotrol] 15 mg PO DAILY 12/09/15 [History] metFORMIN HCL 1,000 mg PO BID 12/09/15 [History] Fluticasone/Vilanterol [Breo Ellipta 200-25 Mcg INH] 1 puff INHALATION RT-DAILY 11/20/16 [History] Hydrocodone/Acetaminophen [[place] 10-325] 1 tab PO Q4H PRN 11/20/16 [History] Lipase/Protease/Amylase [Creon Dr 36,000 Units Capsule] 1 cap PO TID 11/20/16 [ History] Metoprolol Succinate (ER) [Toprol XL] 50 mg PO DAILY 11/20/16 [History] Albuterol Nebulized [Ventolin Nebulized] 2.5 mg INHALATION RT-QID #0 11/21/16 [ Rx] Azithromycin [Zithromax] 500 mg PO DAILY #5 tab 11/21/16 [Rx] Cefuroxime Axetil [Ceftin] 500 mg PO BID #10 tab 11/21/16 [Rx] predniSONE 10 mg PO DIRECTED #6 tab 11/21/16 [Rx] Follow up Appointment(s)/Referral(s): Yusuf Lind MD [Primary Care Provider] - 3 Days Alexa Feng MD [REFERRING] - 11/22/16 ([facility]) Ambulatory/Diagnostic Orders: Complete Blood Count w/diff [LAB.AMB] Time Frame: 3 Days, Location: Determined By Patient Activity/Diet/Wound Care/Special Instructions: Lisinopril on hold secondary to hypotension, reevaluate outpatient at follow-up visit with PCP Diet: Cardiac, consistent carb Accu-Cheks before meals and at bedtime Activity: Limited until follow up Discharge Disposition: HOME SELF-CARE
== END 2016-11-21 15:40 | disposition home or self-care (01) | DRG 190 ==
LOC: EC 21:03 → 6SEL 21:59
PROVIDERS: ADMIT Family Medicine; ATTEND Family Medicine
DX: J44.0 Chronic obstructive pulmonary disease with (acute) lower respiratory infection (principal); J15.6 Pneumonia due to other Gram-negative bacteria; J96.91 Respiratory failure, unspecified with hypoxia; R64 Cachexia; I95.9 Hypotension, unspecified; E11.22 Type 2 diabetes mellitus with diabetic chronic kidney disease; E11.65 Type 2 diabetes mellitus with hyperglycemia; Z99.81 Dependence on supplemental oxygen; E87.1 Hypo-osmolality and hyponatremia; K86.1 Other chronic pancreatitis; Z68.1 Body mass index [BMI] 19.9 or less, adult; J44.1 Chronic obstructive pulmonary disease with (acute) exacerbation; I25.5 Ischemic cardiomyopathy; I12.9 Hypertensive chronic kidney disease with stage 1 through stage 4 chronic kidney disease, or unspecified chronic kidney disease; N18.9 Chronic kidney disease, unspecified; T38.0X5A Adverse effect of glucocorticoids and synthetic analogues, initial encounter; I25.10 Atherosclerotic heart disease of native coronary artery without angina pectoris; T46.4X5A Adverse effect of angiotensin-converting-enzyme inhibitors, initial encounter; E78.5 Hyperlipidemia, unspecified; R00.0 Tachycardia, unspecified; R53.1 Weakness; M19.90 Unspecified osteoarthritis, unspecified site; F17.210 Nicotine dependence, cigarettes, uncomplicated; Z79.899 Other long term (current) drug therapy; Z79.51 Long term (current) use of inhaled steroids; Z79.4 Long term (current) use of insulin; Z82.5 Family history of asthma and other chronic lower respiratory diseases; Z83.3 Family history of diabetes mellitus; Z82.49 Family history of ischemic heart disease and other diseases of the circulatory system; Z95.810 Presence of automatic (implantable) cardiac defibrillator; Z88.6 Allergy status to analgesic agent; Z88.5 Allergy status to narcotic agent; Z71.3 Dietary counseling and surveillance; Z87.19 Personal history of other diseases of the digestive system; Z91.19 Patient's noncompliance with other medical treatment and regimen; Z79.82 Long term (current) use of aspirin; Z86.79 Personal history of other diseases of the circulatory system; Z86.19 Personal history of other infectious and parasitic diseases; Z87.39 Personal history of other diseases of the musculoskeletal system and connective tissue; Z86.69 Personal history of other diseases of the nervous system and sense organs; Z79.891 Long term (current) use of opiate analgesic
CPT/HCPCS: 36415; 71010; 80048; 80053; 82550; 82553; 83036; 83605; 83735; 83880; 84484; 85025; 85610; 85730; 87040; 87070; 87205; 93005; 94640; 94644; 94660; 96360; 96361; 96365; 96366; 96375; 99291

== ENCOUNTER → 2016-11-22 | Outpatient (CLI) | payer MEDICARE, OTHER ==
[2016-11-22 14:34] LABS: Basophils % (A) 0 %; CH 30.8; CHCM 32.3; Eosinophils % (A) 0 %; HCT 39.4 % (39.0-53.0); HDW 2.55; HGB 12.2 gm/dL (13.0-17.5); Luc # (Auto) 0.15; Luc % (Auto) 2; Lymphocytes # (A) 0.8 k/uL (1.0-4.8); Lymphocytes % (A) 11 %; MCH 29.7 pg (25.0-35.0); MCHC 30.9 g/dL (31.0-37.0); MCV 96.1 fL (80.0-100.0); Mean Platelet Volume 8.6; Monocytes # (A) 0.7 k/uL (0-1.0); Monocytes % (A) 9 %; Neutrophils # (A) 6.1 k/uL (1.3-7.7); Neutrophils % (A) 78 %; RDW 14.5 % (11.5-15.5); WBC 7.8 k/uL (3.8-10.6); WBC (Perox) 8.12
[2016-11-22 14:46] LABS: ALT 61 U/L (21-72); AST 38 U/L (17-59); Alkaline Phosphatase 66 U/L (38-126); Amylase <30 U/L (30-110); Anion Gap 12 mmol/L; Blood Urea Nitrogen 30 mg/dL (9-20); Calcium 9.2 mg/dL (8.4-10.2); Carbon Dioxide 22 mmol/L (22-30); Chloride 103 mmol/L (98-107); Glucose 182 mg/dL (74-99); Non-African American GFR(MDRD) >60 (>60 ml/min/1.73 sqM); Potassium 3.8 mmol/L (3.5-5.1); Sodium 137 mmol/L (137-145); Total Bilirubin 0.2 mg/dL (0.2-1.3); Total Protein 5.6 g/dL (6.3-8.2)
== END | disposition home or self-care (01) ==
LOC: LABWHC1 14:01
DX: K86.89 Other specified diseases of pancreas (principal)
CPT/HCPCS: 36415; 80053; 82150; 83690; 85025

== ENCOUNTER → 2017-01-03 | Outpatient (CLI) | payer MEDICARE, OTHER ==
[2017-01-03 11:52] LABS: ALT 54 U/L (21-72); AST 36 U/L (17-59); Alkaline Phosphatase 66 U/L (38-126); Anion Gap 10 mmol/L; Blood Urea Nitrogen 19 mg/dL (9-20); Calcium 9.3 mg/dL (8.4-10.2); Carbon Dioxide 26 mmol/L (22-30); Chloride 98 mmol/L (98-107); Cholesterol 153 mg/dL (<200); Glucose 190 mg/dL (74-99); HDL Cholesterol 89 mg/dL (40-60); Non-African American GFR(MDRD) >60 (>60 ml/min/1.73 sqM); Potassium 4.7 mmol/L (3.5-5.1); Sodium 134 mmol/L (137-145); Total Bilirubin 0.3 mg/dL (0.2-1.3); Total Protein 6.9 g/dL (6.3-8.2)
== END | disposition home or self-care (01) ==
LOC: LABWHC1 11:07
PROVIDERS: ATTEND Internal Medicine Clinical Cardiac Electrophysiology
DX: I42.9 Cardiomyopathy, unspecified (principal)
CPT/HCPCS: 36415; 80053; 80061

== ENCOUNTER → 2017-01-31 | Outpatient (CLI) | payer MEDICARE, OTHER ==
--- NOTE | 2017-01-31 15:38 | XR ---
EXAMINATION TYPE: XR shoulder complete BILAT DATE OF EXAM: 01/31/2017 CLINICAL HISTORY: pain TECHNIQUE: Three views of the bilateral shoulders are obtained. COMPARISON: None FINDINGS: There is no acute fracture/dislocation evident. The acromioclavicular and glenohumeral sujey int spaces appear mildly narrowed. Nonacute rib deformities left ribs 5 and 6. IMPRESSION: 1. There is no acute fracture or dislocation. ICD 10 NO FRACTURE, INITIAL EVALUATION
--- NOTE | 2017-01-31 15:39 | XR ---
EXAMINATION TYPE: XR cervical spine comp DATE OF EXAM: 01/31/2017 CLINICAL HISTORY: pain COMPARISON: NONE TECHNIQUE: Frontal, lateral, oblique, swimmers, and open mouth view of the cervical spine are obtaine d. FINDINGS: The cervical spine is visualized in its entirety from C1 thru the top of T1 level. It is s atisfactory in alignment without evidence of acute fracture or dislocation. The pre-vertebral soft t issue appears within normal limits. Mild degenerative disc space narrowing identified. The C1-C2 viv culation is unremarkable on the open mouth view. The oblique images are within normal limits. IMPRESSION: No acute fracture or dislocation is seen in the cervical spine.ICD 10 NO FRACTURE, INITI AL EVALUATION
== END | disposition home or self-care (01) ==
LOC: RADXRMAIN 15:05
PROVIDERS: ATTEND Family Medicine
DX: M54.2 Cervicalgia (principal); M25.512 Pain in left shoulder
CPT/HCPCS: 72050

== ENCOUNTER → 2017-06-09 | Outpatient (CLI) | payer MEDICARE, OTHER ==
[2017-06-09 13:24] LABS: ALT 36 U/L (21-72); AST 35 U/L (17-59); Albumin 4.6 g/dL (3.5-5.0); Alkaline Phosphatase 94 U/L (38-126); Anion Gap 10 mmol/L; Blood Urea Nitrogen 17 mg/dL (9-20); Calcium 9.4 mg/dL (8.4-10.2); Carbon Dioxide 28 mmol/L (22-30); Chloride 95 mmol/L (98-107); Cholesterol 156 mg/dL (<200); Glucose 330 mg/dL (74-99); HDL Cholesterol 90 mg/dL (40-60); LDL Cholesterol,Calculated 54 mg/dL (0-99); Potassium 4.7 mmol/L (3.5-5.1); Sodium 133 mmol/L (137-145); Total Bilirubin 0.6 mg/dL (0.2-1.3); Triglycerides 61 mg/dL (<150)
[2017-06-09 13:40] LABS: T4, Free (Free Thyroxine) 1.26 ng/dL (0.78-2.19)
[2017-06-10 06:04] LABS: Hemoglobin A1C 10.1 % (4.0-6.0)
== END | disposition home or self-care (01) ==
LOC: LABWHC1 12:53
PROVIDERS: ATTEND Internal Medicine
DX: E10.65 Type 1 diabetes mellitus with hyperglycemia (principal)
CPT/HCPCS: 36415; 80053; 80061; 82043; 82570; 83036; 84439; 84443

== ENCOUNTER 2017-08-19 21:17 | Emergency (ER) | payer MEDICARE, OTHER ==
[2017-08-19 21:32] VITALS: TEMP 97.3
--- NOTE | 2017-08-19 21:57 | ED ---
Chest Pain HPI - General Chief Complaint: Chest Pain Stated Complaint: Chest pain,PIA Time Seen by Provider: 08/19/17 21:43 Source: patient, family Mode of arrival: ambulatory Limitations: no limitations - History of Present Illness Initial Comments: This patient is a 56-year-old man who presents with 2 complaints today. The first complaint is that since about 1:00 in the morning, going on 21 hours now, he has been feeling more short of breath than usual. The patient has history of COPD and is on home oxygen he states usually at 4 L. He states starting around 1 AM he was feeling more short of breath than usual. He did try nebulize treatment but didn't have much relief from it. He states that starting in the morning he began having some intermittent chest pains that he locates in the left anterior axillary line lateral to his nipple. He has a difficult time characterizing these pains. He states that they come on for a minute to at time and resolved. He has not found any factors that seem to make them get better or worse. He denies any anginal symptoms other than the dyspnea which is been going on. He has not had diaphoresis, nausea or vomiting , palpitations, lightheadedness or syncope. MD Complaint: chest pain, other Onset/Timin -: hour(s) Onset: during rest Pain Location: left chest Pain Radiation: none Severity: mild Quality: other (Unable to characterize) Consistency: intermittent Improves With: nothing Worsens With: nothing Treatments Prior to Arrival: none - Related Data Home Medications Medication Instructions Recorded Confirmed Furosemide [Lasix] 40 mg PO BID 08/21/13 11/20/16 Ipratropium/Albuterol Sulfate 1 puff INHALATION RT-QID PRN 08/21/13 11/20/16 [Combivent Respimat Inhaler] Lisinopril [Zestril] 2.5 mg PO BID 08/21/13 11/20/16 Spironolactone [Aldactone] 25 mg PO DAILY 08/21/13 11/20/16 Insulin Detemir [Levemir Flextouch] 23 units SQ BID 12/09/15 11/20/16 glipiZIDE [Glucotrol] 15 mg PO DAILY 12/09/15 11/20/16 metFORMIN HCL 1,000 mg PO BID 12/09/15 11/20/16 Fluticasone/Vilanterol [Breo 1 puff INHALATION RT-DAILY 11/20/16 11/20/16 Ellipta 200-25 Mcg INH] Hydrocodone/Acetaminophen [[place] 1 tab PO Q4H PRN 11/20/16 11/20/16 10-325] Lipase/Protease/Amylase [Creon Dr 1 cap PO TID 11/20/16 11/20/16 36,000 Units Capsule] Metoprolol Succinate (ER) [Toprol 50 mg PO DAILY 11/20/16 11/20/16 XL] Previous Rx's Medication Instructions Recorded Albuterol Nebulized [Ventolin 2.5 mg INHALATION RT-QID #0 11/21/16 Nebulized] Azithromycin [Zithromax] 500 mg PO DAILY #5 tab 11/21/16 Cefuroxime Axetil [Ceftin] 500 mg PO BID #10 tab 11/21/16 predniSONE 10 mg PO DIRECTED #6 tab 11/21/16 Allergies Allergy/AdvReac Type Severity Reaction Status Date / Time meperidine HCl [From Demerol] Allergy Severe Rapid Verified 08/19/17 21:57 Heart Rate/VOMITING ibuprofen [From Motrin] AdvReac Vomiting Verified 08/19/17 21:57 Review of Systems ROS Statement: Those systems with pertinent positive or pertinent negative responses have been documented in the HPI. ROS Other: All systems not noted in ROS Statement are negative. Constitutional: Denies: fever, chills, weakness Respiratory: Reports: as per HPI, dyspnea, wheezes. Denies: cough, hemoptysis Cardiovascular: Reports: as per HPI, chest pain. Denies: palpitations, dyspnea on exertion, orthopnea, edema, syncope Gastrointestinal: Denies: abdominal pain, vomiting, diarrhea Genitourinary: Denies: dysuria, hematuria Musculoskeletal: Denies: back pain Skin: Denies: rash Neurological: Denies: headache, weakness, numbness EKG Findings - EKG Results: EKG: interpreted by ERMMani, sinus rhythm (With occasional PVCs, rate is 96 bpm) - Blocks, [place], Hypertrophy, ST Abn: AV and intraventricular conduction: left anterior fascicular block Chamber hypertrophy or enlargement: left ventricular hypertrophy or enlargement (LVE) Past Medical History Past Medical History: Coronary Artery Disease (CAD), Heart Failure, COPD, Diabetes Mellitus, Hyperlipidemia, Hypertension, Renal Disease Additional Past Medical History / Comment(s): PANCREATITIS, O2 DEPENDANT 4 LITERS N/[place], arthritis. bone infection L ear, hole in eardrum. History of Any Multi-Drug Resistant Organisms: None Reported Past Surgical History: AICD, Pacemaker Past Anesthesia/Blood Transfusion Reactions: No Reported Reaction Type of Cardiac Device: Permanent Pacemaker, Unknown Device Placement Date:: 2009 Past Psychological History: No Psychological Hx Reported Smoking Status: Current some day smoker Past Alcohol Use History: Occasional Past Drug Use History: None Reported - Past Family History Father Family Medical History: Congestive Heart Failure (CHF), COPD, Diabetes Mellitus Additional Family Medical History / Comment(s): mrsa, gbs, asbestoes exposure/ lings Mother Family Medical History: Diabetes Mellitus, Hypertension General Exam Limitations: no limitations General appearance: alert, in no apparent distress Head exam: Present: atraumatic, normocephalic Eye exam: Present: normal appearance. Absent: scleral icterus, conjunctival injection ENT exam: Present: normal oropharynx Neck exam: Present: normal inspection Respiratory exam: Present: wheezes. Absent: respiratory distress, rales, rhonchi, stridor, chest wall tenderness, accessory muscle use, decreased breath sounds, prolonged expiratory Cardiovascular Exam: Present: regular rate, normal rhythm, normal heart sounds. Absent: systolic murmur, diastolic murmur, rubs, gallop GI/Abdominal exam: Present: soft. Absent: distended, tenderness, guarding, rebound, mass Extremities exam: Present: normal inspection, normal capillary refill. Absent: pedal edema, calf tenderness Back exam: Present: normal inspection. Absent: CVA tenderness (R), CVA tenderness (L) Neurological exam: Present: alert Skin exam: Present: warm, dry, intact, normal color. Absent: rash Course Vital Signs 08/19/17 08/19/17 08/19/17 21:27 22:49 23:01 Temperature 97.3 F L Pulse Rate 62 66 99 Respiratory 20 16 Rate Blood Pressure 128/92 112/66 O2 Sat by Pulse 99 97 Oximetry 08/19/17 23:11 Temperature Pulse Rate 99 Respiratory Rate Blood Pressure O2 Sat by Pulse Oximetry Disposition Clinical Impression: COPD (chronic obstructive pulmonary disease), Acute coronary syndrome Disposition: ADMITTED IP TO THIS HOSP Condition: Fair
[2017-08-19 22:12] LABS: Basophils % (A) 0 %; Eosinophils # (A) 0.1 k/uL (0-0.7); Eosinophils % (A) 2 %; HCT 39.9 % (39.0-53.0); HGB 13.5 gm/dL (13.0-17.5); Lymphocytes # (A) 1.5 k/uL (1.0-4.8); Lymphocytes % (A) 27 %; MCH 30.5 pg (25.0-35.0); MCHC 33.7 g/dL (31.0-37.0); MCV 90.5 fL (80.0-100.0); Mean Platelet Volume 6.9; Monocytes # (A) 0.4 k/uL (0-1.0); Monocytes % (A) 7 %; Neutrophils # (A) 3.4 k/uL (1.3-7.7); Neutrophils % (A) 61 %; Platelet Count 176 k/uL (150-450); RBC 4.41 m/uL (4.30-5.90); WBC 5.6 k/uL (3.8-10.6)
[2017-08-19 22:21] LABS: INR 1.2 (<1.2); Partial Thromboplastin Time 25.8 sec (22.0-30.0); Prothrombin Time 11.2 sec (9.0-12.0)
--- NOTE | 2017-08-19 22:25 | XR ---
EXAMINATION TYPE: XR chest 1V portable DATE OF EXAM: 08/19/2017 COMPARISON: 11/20/2016 HISTORY: Difficulty breathing. Short of breath TECHNIQUE: Single frontal view of the chest is obtained. FINDINGS: No pulmonary consolidation. There is no pleural effusion. There is slight coarsening of in terstitial markings. There are old left-sided healed rib fractures. There is a left axillary pacemake r with the lead tip in the right ventricle. There are chest leads. IMPRESSION: No active cardiopulmonary disease. No significant change compared to old exam.
[2017-08-19 22:31] LABS: ALT 72 U/L (21-72); AST 65 U/L (17-59); Alkaline Phosphatase 127 U/L (38-126); Anion Gap 13 mmol/L; Blood Urea Nitrogen 27 mg/dL (9-20); Calcium 9.2 mg/dL (8.4-10.2); Carbon Dioxide 21 mmol/L (22-30); Chloride 94 mmol/L (98-107); Glucose 320 mg/dL (74-99); Magnesium 1.9 mg/dL (1.6-2.3); Potassium 4.9 mmol/L (3.5-5.1); Sodium 128 mmol/L (137-145); Total Bilirubin 0.8 mg/dL (0.2-1.3)
[2017-08-19 22:52] VITALS: BP 112/66; RESP 16
[2017-08-19] MEDS ORDERED: ASPIRIN 81 MG PO STA (22:54)
[2017-08-19] MEDS ORDERED: NITROGLYCERIN SL TABS 0.4 MG TAB SUBLINGUAL STA (22:54)
[2017-08-19] MEDS ORDERED: HEPARIN SODIUM,PORCINE 5,000 UNIT/ML 1 ML VIAL IV ONE (22:54)
[2017-08-19] MEDS ORDERED: HEPARIN SODIUM,PORCINE 5,000 UNIT/ML 1 ML VIAL IV PRN (22:54)
[2017-08-19] MEDS ORDERED: INSULIN REGULAR 100 UNIT/ML VIAL IV STA (22:55)
[2017-08-19] MEDS ORDERED: ALBUTEROL NEBULIZED 2.5 MG/3 ML INHALATION STA (22:55)
[2017-08-19] MEDS ORDERED: NITROGLYCERIN SL TABS 0.4 MG TAB SUBLINGUAL PRN (22:57)
[2017-08-19] MEDS ORDERED: HYDROcodone/APAP 10-325MG 1 EACH TAB PO PRN (22:59)
[2017-08-19] MEDS ORDERED: IPRATROPIUM-ALBUTEROL 3 ML NEB INHALATION PRN (22:59)
[2017-08-19] MEDS ORDERED: HEPARIN SODIUM,PORCINE/D5W PMX 25,000 UNIT in DEXTROSE/WATER 1 500ML.BAG IV SCH (23:00)
[2017-08-19 23:03] VITALS: PULSE 99
[2017-08-20] MEDS ORDERED: ALBUTEROL NEBULIZED 2.5 MG/3 ML INHALATION SCH (08:00)
[2017-08-20] MEDS ORDERED: SYMBICORT 160-4.5 MCG INHALER INHALATION SCH (08:00)
[2017-08-20] MEDS ORDERED: predniSONE 10 MG TAB PO SCH (09:00)
[2017-08-20] MEDS ORDERED: glipiZIDE 5 MG TAB PO SCH (09:00)
[2017-08-20] MEDS ORDERED: CEFUROXIME 250 MG TAB PO SCH (09:00)
[2017-08-20] MEDS ORDERED: LIPASE 5,000/PROTEASE 17,000/AMYLASE 27,0000 PO SCH (09:00)
[2017-08-20] MEDS ORDERED: LISINOPRIL 2.5 MG TAB PO SCH (09:00)
[2017-08-20] MEDS ORDERED: INSULIN DETEMIR 100 UNIT/ML 10 ML VIAL SQ SCH (09:00)
[2017-08-20] MEDS ORDERED: ASPIRIN 325 MG TAB PO SCH (09:00)
[2017-08-20] MEDS ORDERED: metFORMIN 500 MG TAB PO SCH (09:00)
[2017-08-20] MEDS ORDERED: FUROSEMIDE 40 MG TAB PO SCH (09:00)
[2017-08-20] MEDS ORDERED: AZITHROMYCIN 500 MG TAB PO SCH (09:00)
[2017-08-20] MEDS ORDERED: SPIRONOLACTONE 25 MG TAB PO SCH (09:00)
[2017-08-20] MEDS ORDERED: METOPROLOL SUCCINATE (ER) 50 MG TAB.ER.24H PO SCH (09:00)
== END 2017-08-19 23:53 | disposition other institution (70) ==
LOC: EC 21:17 → UNDOADMIN 22:59 → 6SEL 22:59 → EC 23:53
DX: J44.9 Chronic obstructive pulmonary disease, unspecified (principal); I24.9 Acute ischemic heart disease, unspecified; I11.0 Hypertensive heart disease with heart failure; I50.9 Heart failure, unspecified; I25.10 Atherosclerotic heart disease of native coronary artery without angina pectoris; E11.9 Type 2 diabetes mellitus without complications; F17.200 Nicotine dependence, unspecified, uncomplicated; Z79.4 Long term (current) use of insulin; Z79.51 Long term (current) use of inhaled steroids; Z79.899 Other long term (current) drug therapy; Z88.5 Allergy status to narcotic agent; Z88.6 Allergy status to analgesic agent; Z99.81 Dependence on supplemental oxygen; Z82.49 Family history of ischemic heart disease and other diseases of the circulatory system; Z95.0 Presence of cardiac pacemaker
CPT/HCPCS: 36415; 71045; 80053; 83735; 84484; 85025; 85610; 85730; 93005; 94640; 99285

== ENCOUNTER 2017-09-16 23:51 | Observation (INO) | payer MEDICARE, OTHER ==
[2017-09-17] MEDS ORDERED: ONDANSETRON 4 MG/2 ML VIAL IVP STA (00:18)
[2017-09-17] MEDS ORDERED: SODIUM CHLORIDE 0.9% 500 ML IV STA (00:18)
[2017-09-17] MEDS ORDERED: PANTOPRAZOLE 40 MG/10 ML VIAL IVP STA (00:18)
[2017-09-17] MEDS ORDERED: SODIUM CHLORIDE 0.9% 1,000 ML IV STA (00:18)
[2017-09-17] MEDS ORDERED: MORPHINE SULFATE 2 MG/ML SYRINGE IV STA (00:18)
[2017-09-17 00:23] LABS: Glucose,Whole Blood 385 mg/dL (75-99)
[2017-09-17] MEDS ORDERED: DIAZEPAM 5 MG/ML 2 ML INJ IVP STA (00:33)
[2017-09-17 00:40] LABS: Basophils % (A) 0 %; Eosinophils # (A) 0.1 k/uL (0-0.7); Eosinophils % (A) 2 %; HCT 45.1 % (39.0-53.0); HGB 14.7 gm/dL (13.0-17.5); Lymphocytes # (A) 1.4 k/uL (1.0-4.8); Lymphocytes % (A) 26 %; MCH 30.3 pg (25.0-35.0); MCHC 32.7 g/dL (31.0-37.0); MCV 92.9 fL (80.0-100.0); Mean Platelet Volume 7.1; Monocytes # (A) 0.5 k/uL (0-1.0); Monocytes % (A) 9 %; Neutrophils # (A) 3.3 k/uL (1.3-7.7); Neutrophils % (A) 61 %; Platelet Count 178 k/uL (150-450); RBC 4.85 m/uL (4.30-5.90); RDW 13.7 % (11.5-15.5); WBC 5.4 k/uL (3.8-10.6)
[2017-09-17 00:49] LABS: ALT 35 U/L (21-72); AST 38 U/L (17-59); Albumin 4.6 g/dL (3.5-5.0); Alkaline Phosphatase 78 U/L (38-126); Amylase 47 U/L (30-110); Anion Gap 15 mmol/L; Blood Urea Nitrogen 25 mg/dL (9-20); Calcium 9.7 mg/dL (8.4-10.2); Carbon Dioxide 22 mmol/L (22-30); Chloride 94 mmol/L (98-107); Glucose 394 mg/dL (74-99); Lipase 349 U/L (23-300); Potassium 4.6 mmol/L (3.5-5.1); Sodium 131 mmol/L (137-145); Total Bilirubin 0.5 mg/dL (0.2-1.3); Total Protein 6.7 g/dL (6.3-8.2)
[2017-09-17] MEDS ORDERED: MORPHINE SULFATE 2 MG/ML SYRINGE IVP STA (01:20)
--- NOTE | 2017-09-17 01:22 | ED ---
General Adult HPI - General Chief complaint: Extremity Injury, Lower Stated complaint: foot pain/diabetic concerns Time Seen by Provider: 09/17/17 00:07 Source: patient, family, RN notes reviewed, old records reviewed Mode of arrival: ambulatory Limitations: no limitations - History of Present Illness Initial comments: This is a 48-year-old male the ER for evaluation. Patient is today for evaluation of significant medical complaints multiple medical complaints. Patient states that he does not feel well, bilateral lower extremity pain, chest pain, shortness of breath. Patient has multiple episodes of similar complaints, states his legs and early her this much so he does have history of chest pain history of pancreatitis - Related Data Home Medications Medication Instructions Recorded Confirmed Furosemide [Lasix] 40 mg PO BID 08/21/13 09/17/17 Ipratropium/Albuterol Sulfate 1 puff INHALATION RT-QID PRN 08/21/13 09/17/17 [Combivent Respimat Inhaler] Lisinopril [Zestril] 2.5 mg PO BID 08/21/13 09/17/17 Spironolactone [Aldactone] 25 mg PO DAILY 08/21/13 09/17/17 Insulin Detemir [Levemir Flextouch] 28 units SQ HS 12/09/15 09/17/17 glipiZIDE [Glucotrol] 15 mg PO DAILY 12/09/15 09/17/17 metFORMIN HCL 1,000 mg PO BID 12/09/15 09/17/17 Fluticasone/Vilanterol [Breo 1 puff INHALATION RT-DAILY 11/20/16 09/17/17 Ellipta 200-25 Mcg INH] Hydrocodone/Acetaminophen [[place] 1 tab PO Q4H PRN 11/20/16 09/17/17 10-325] Lipase/Protease/Amylase [Creon Dr 1 cap PO TID 11/20/16 09/17/17 36,000 Units Capsule] Metoprolol Succinate (ER) [Toprol 50 mg PO DAILY 11/20/16 09/17/17 XL] INSULIN LISPRO (humaLOG) [humaLOG] See Protocol SQ ACHS 09/17/17 09/17/17 Previous Rx's Medication Instructions Recorded Albuterol Nebulized [Ventolin 2.5 mg INHALATION RT-QID #0 11/21/16 Nebulized] Allergies Allergy/AdvReac Type Severity Reaction Status Date / Time meperidine HCl [From Demerol] Allergy Severe Rapid Verified 09/17/17 10:14 Heart Rate/VOMITING ibuprofen [From Motrin] AdvReac Vomiting Verified 09/17/17 10:14 Review of Systems ROS Statement: Those systems with pertinent positive or pertinent negative responses have been documented in the HPI. ROS Other: All systems not noted in ROS Statement are negative. Past Medical History Past Medical History: Coronary Artery Disease (CAD), Heart Failure, COPD, Diabetes Mellitus, Hyperlipidemia, Hypertension, Renal Disease Additional Past Medical History / Comment(s): PANCREATITIS, O2 DEPENDANT 4 LITERS N/[place], arthritis. bone infection L ear, hole in eardrum. History of Any Multi-Drug Resistant Organisms: None Reported Past Surgical History: AICD, Pacemaker Past Anesthesia/Blood Transfusion Reactions: No Reported Reaction Type of Cardiac Device: Permanent Pacemaker, Unknown Device Placement Date:: 2009 Past Psychological History: No Psychological Hx Reported Smoking Status: Current some day smoker Past Alcohol Use History: Occasional Past Drug Use History: None Reported - Past Family History Father Family Medical History: Congestive Heart Failure (CHF), COPD, Diabetes Mellitus Additional Family Medical History / Comment(s): mrsa, gbs, asbestoes exposure/ lings Mother Family Medical History: Diabetes Mellitus, Hypertension General Exam Limitations: no limitations General appearance: alert, in no apparent distress Head exam: Present: atraumatic, normocephalic, normal inspection Eye exam: Present: normal appearance, PERRL, EOMI. Absent: scleral icterus, conjunctival injection, periorbital swelling ENT exam: Present: normal exam, mucous membranes moist Neck exam: Present: normal inspection. Absent: tenderness, meningismus, lymphadenopathy Respiratory exam: Present: normal lung sounds bilaterally. Absent: respiratory distress, wheezes, rales, rhonchi, stridor Cardiovascular Exam: Present: regular rate, normal rhythm, normal heart sounds. Absent: systolic murmur, diastolic murmur, rubs, gallop, clicks GI/Abdominal exam: Present: soft, normal bowel sounds. Absent: distended, tenderness, guarding, rebound, rigid Extremities exam: Present: normal inspection, full ROM, normal capillary refill. Absent: tenderness, pedal edema, joint swelling, calf tenderness Back exam: Present: normal inspection Neurological exam: Present: alert, oriented X3, CN II-XII intact Psychiatric exam: Present: normal affect, normal mood Skin exam: Present: warm, dry, intact, normal color. Absent: rash Course Vital Signs 09/17/17 09/17/17 09/17/17 00:00 00:10 01:04 Temperature 98.3 F Pulse Rate 110 H 101 H 99 Respiratory 20 16 15 Rate Blood Pressure 134/79 141/86 138/79 O2 Sat by Pulse 98 96 98 Oximetry 09/17/17 09/17/17 09/17/17 03:40 06:00 07:09 Temperature 98.4 F Pulse Rate 98 80 89 Respiratory 19 15 16 Rate Blood Pressure 124/73 119/64 116/82 O2 Sat by Pulse 100 97 99 Oximetry 09/17/17 11:46 Temperature 98 F Pulse Rate 78 Respiratory 16 Rate Blood Pressure 126/81 O2 Sat by Pulse 99 Oximetry - Reevaluation(s) Reevaluation #1: Patient is significantly improved symptom control EKG Findings - EKG Comments: EKG Findings:: EKG shows sinus tachycardia rate of 84, NM 1:30, QRS 02, QTc 444 Medical Decision Making - Medical Decision Making 56 male the ER for evaluation of severe lower [place] pain. Patient also found a panic otitis of chest pain. Patient be admitted for chest pain observation secondary to elevated troponin, patient will also be placed on pain control and hydration for pancreatitis as well as neuropathic pain management - Lab Data Result diagrams: 09/17/17 00:16 09/17/17 00:16 Lab Results 09/17/17 09/17/17 09/17/17 Range/Units 00:16 00:16 00:16 WBC 5.4 (3.8-10.6) k/uL RBC 4.85 (4.30-5.90) m/uL Hgb 14.7 (13.0-17.5) gm/dL Hct 45.1 (39.0-53.0) % MCV 92.9 (80.0-100.0) fL MCH 30.3 (25.0-35.0) pg MCHC 32.7 (31.0-37.0) g/dL RDW 13.7 (11.5-15.5) % Plt Count 178 (150-450) k/uL Neutrophils % 61 % Lymphocytes % 26 % Monocytes % 9 % Eosinophils % 2 % Basophils % 0 % Neutrophils # 3.3 (1.3-7.7) k/uL Lymphocytes # 1.4 (1.0-4.8) k/uL Monocytes # 0.5 (0-1.0) k/uL Eosinophils # 0.1 (0-0.7) k/uL Basophils # 0.0 (0-0.2) k/uL Sodium 131 L (137-145) mmol/L Potassium 4.6 (3.5-5.1) mmol/L Chloride 94 L (98-107) mmol/L Carbon Dioxide 22 (22-30) mmol/L Anion Gap 15 mmol/L BUN 25 H (9-20) mg/dL Creatinine 1.10 (0.66-1.25) mg/dL Est GFR (CKD-EPI)AfAm 85 (>60 ml/min/1.73 sqM) Est GFR (CKD-EPI)NonAf 74 (>60 ml/min/1.73 sqM) Glucose 394 H (74-99) mg/dL POC Glucose (mg/dL) (75-99) mg/dL POC Glu Section Gang ID Calcium 9.7 (8.4-10.2) mg/dL Total Bilirubin 0.5 (0.2-1.3) mg/dL AST 38 (17-59) U/L ALT 35 (21-72) U/L Alkaline Phosphatase 78 (38-126) U/L Total Creatine Kinase 149 (55-170) U/L CK-MB (CK-2) 3.0 H* (0.0-2.4) ng/mL CK-MB (CK-2) Rel Index 2.0 Troponin I 0.074 H* (0.000-0.034) ng/mL Total Protein 6.7 (6.3-8.2) g/dL Albumin 4.6 (3.5-5.0) g/dL Amylase 47 (30-110) U/L Lipase 349 H (23-300) U/L Acetone, Qual Negative (Negative) 09/17/17 Range/Units 00:21 WBC (3.8-10.6) k/uL RBC (4.30-5.90) m/uL Hgb (13.0-17.5) gm/dL Hct (39.0-53.0) % MCV (80.0-100.0) fL MCH (25.0-35.0) pg MCHC (31.0-37.0) g/dL RDW (11.5-15.5) % Plt Count (150-450) k/uL Neutrophils % % Lymphocytes % % Monocytes % % Eosinophils % % Basophils % % Neutrophils # (1.3-7.7) k/uL Lymphocytes # (1.0-4.8) k/uL Monocytes # (0-1.0) k/uL Eosinophils # (0-0.7) k/uL Basophils # (0-0.2) k/uL Sodium (137-145) mmol/L Potassium (3.5-5.1) mmol/L Chloride (98-107) mmol/L Carbon Dioxide (22-30) mmol/L Anion Gap mmol/L BUN (9-20) mg/dL Creatinine (0.66-1.25) mg/dL Est GFR (CKD-EPI)AfAm (>60 ml/min/1.73 sqM) Est GFR (CKD-EPI)NonAf (>60 ml/min/1.73 sqM) Glucose (74-99) mg/dL POC Glucose (mg/dL) 385 H (75-99) mg/dL POC Glu Section Gang ID Manuel Beaver Calcium (8.4-10.2) mg/dL Total Bilirubin (0.2-1.3) mg/dL AST (17-59) U/L ALT (21-72) U/L Alkaline Phosphatase (38-126) U/L Total Creatine Kinase (55-170) U/L CK-MB (CK-2) (0.0-2.4) ng/mL CK-MB (CK-2) Rel Index Troponin I (0.000-0.034) ng/mL Total Protein (6.3-8.2) g/dL Albumin (3.5-5.0) g/dL Amylase (30-110) U/L Lipase (23-300) U/L Acetone, Qual (Negative) - Radiology Data Radiology results: report reviewed, image reviewed Disposition Clinical Impression: Pancreatitis, Chronic pancreatitis, Chest pain, Neuropathic pain of right foot Disposition: ADMITTED IP TO THIS [facility] Condition: Fair Is patient prescribed a controlled substance at d/c from ED?: No
[2017-09-17 01:23] LABS: Troponin I 0.074 ng/mL (0.000-0.034)
[2017-09-17] MEDS ORDERED: MORPHINE SULFATE 2 MG/ML SYRINGE IV PRN (01:38)
[2017-09-17] MEDS ORDERED: GABAPENTIN 300 MG CAP PO STA (01:38)
[2017-09-17] MEDS ORDERED: NITROGLYCERIN SL TABS 0.4 MG TAB SUBLINGUAL PRN (01:38)
[2017-09-17 04:25] LABS: Glucose,Whole Blood 240 mg/dL (75-99)
[2017-09-17 06:26] LABS: Creatine Kinase MB 2.4 ng/mL (0.0-2.4)
[2017-09-17 06:39] LABS: Troponin I 0.072 ng/mL (0.000-0.034)
[2017-09-17 06:48] LABS: Appearance,Urine Clear (Clear); Bilirubin,Urine Negative (Negative); Blood,Urine Negative (Negative); Color,Urine Yellow; Glucose,Urine (UA) 4+ (Negative); Hyaline Casts,Urine 1 /lpf (0-2); Ketones,Urine Negative (Negative); Leukocyte Esterase,Urine Negative (Negative); Nitrite,Urine Negative (Negative); PH, Urine 5.5 (5.0-8.0); Protein,Urine 1+ (Negative); RBC,Urine <1 /hpf (0-5); Specific Gravity,Urine 1.009 (1.001-1.035); Urobilinogen,Urine <2.0 mg/dL (<2.0); WBC,Urine 1 /hpf (0-5)
[2017-09-17 06:56] LABS: Glucose,Whole Blood 156 mg/dL (75-99)
[2017-09-17 07:11] VITALS: RESP 16
[2017-09-17] MEDS ORDERED: INSULIN ASPART 100 UNIT/ML 1 ML 10 ML VIAL SQ SCH (07:30)
[2017-09-17] MEDS ORDERED: GABAPENTIN 300 MG CAP PO SCH (09:00)
[2017-09-17 11:47] VITALS: BP 126/81; PULSE 78; TEMP 98
[2017-09-17 13:03] LABS: Hemoglobin A1C 11.6 % (4.0-6.0)
--- NOTE | 2017-09-17 19:33 | P.DS ---
Providers Date of admission: 09/17/17 01:40 Attending physician: Jamison Morris Primary care physician: Yusuf Lind [facility] Course: pt is presented with chest pain , pancreatitis, foot pain , i was called by the nurse norma pt signed leaving AMA before i have a chance to see him Patient Condition at Discharge: Fair Plan - Discharge Summary New Discharge Prescriptions: No Action Furosemide [Lasix] 40 mg PO BID Spironolactone [Aldactone] 25 mg PO DAILY Lisinopril [Zestril] 2.5 mg PO BID Ipratropium/Albuterol Sulfate [Combivent Respimat Inhaler] 1 puff INHALATION RT-QID PRN PRN Reason: Shortness Of Breath glipiZIDE [Glucotrol] 15 mg PO DAILY metFORMIN HCL 1,000 mg PO BID Insulin Detemir [Levemir Flextouch] 28 units SQ HS Metoprolol Succinate (ER) [Toprol XL] 50 mg PO DAILY Lipase/Protease/Amylase [Creon Dr 36,000 Units Capsule] 1 cap PO TID Fluticasone/Vilanterol [Breo Ellipta 200-25 Mcg INH] 1 puff INHALATION RT- DAILY Hydrocodone/Acetaminophen [Mims 10-325] 1 tab PO Q4H PRN PRN Reason: Pain Albuterol Nebulized [Ventolin Nebulized] 2.5 mg INHALATION RT-QID #0 INSULIN LISPRO (humaLOG) [humaLOG] See Protocol SQ ACHS Discharge Medication List Furosemide [Lasix] 40 mg PO BID 08/21/13 [History] Ipratropium/Albuterol Sulfate [Combivent Respimat Inhaler] 1 puff INHALATION RT- QID PRN 08/21/13 [History] Lisinopril [Zestril] 2.5 mg PO BID 08/21/13 [History] Spironolactone [Aldactone] 25 mg PO DAILY 08/21/13 [History] Insulin Detemir [Levemir Flextouch] 28 units SQ HS 12/09/15 [History] glipiZIDE [Glucotrol] 15 mg PO DAILY 12/09/15 [History] metFORMIN HCL 1,000 mg PO BID 12/09/15 [History] Fluticasone/Vilanterol [Breo Ellipta 200-25 Mcg INH] 1 puff INHALATION RT-DAILY 11/20/16 [History] Hydrocodone/Acetaminophen [Mims 10-325] 1 tab PO Q4H PRN 11/20/16 [History] Lipase/Protease/Amylase [Creon Dr 36,000 Units Capsule] 1 cap PO TID 11/20/16 [ History] Metoprolol Succinate (ER) [Toprol XL] 50 mg PO DAILY 11/20/16 [History] Albuterol Nebulized [Ventolin Nebulized] 2.5 mg INHALATION RT-QID #0 11/21/16 [ Rx] INSULIN LISPRO (humaLOG) [humaLOG] See Protocol SQ ACHS 09/17/17 [History] Follow up Appointment(s)/Referral(s): Yusuf Lind MD [Primary Care Provider] - 1-2 days Discharge Disposition: Left Against Medical Advice
--- NOTE | 2017-09-17 19:34 | P.HPIM ---
History of Present Illness pt is presented with chest pain , pancreatitis, foot pain , i was called by the nurse pt signed leaving AMA before i have a chance to see him Past Medical History Past Medical History: Coronary Artery Disease (CAD), Heart Failure, COPD, Diabetes Mellitus, Hyperlipidemia, Hypertension, Renal Disease Additional Past Medical History / Comment(s): PANCREATITIS, O2 DEPENDANT 4 LITERS [place], arthritis. bone infection L ear, hole in eardrum. History of Any Multi-Drug Resistant Organisms: None Reported Past Surgical History: AICD, Pacemaker Past Anesthesia/Blood Transfusion Reactions: No Reported Reaction Type of Cardiac Device: Permanent Pacemaker, Unknown Device Placement Date:: 2009 Past Psychological History: No Psychological Hx Reported Smoking Status: Current some day smoker Past Alcohol Use History: Occasional Past Drug Use History: None Reported - Past Family History Father Family Medical History: Congestive Heart Failure (CHF), COPD, Diabetes Mellitus Additional Family Medical History / Comment(s): mrsa, gbs, asbestoes exposure/ lings Mother Family Medical History: Diabetes Mellitus, Hypertension Medications and Allergies Home Medications Medication Instructions Recorded Confirmed Type Furosemide [Lasix] 40 mg PO BID 08/21/13 09/17/17 History Ipratropium/Albuterol Sulfate 1 puff INHALATION RT-QID PRN 08/21/13 09/17/17 History [Combivent Respimat Inhaler] Lisinopril [Zestril] 2.5 mg PO BID 08/21/13 09/17/17 History Spironolactone [Aldactone] 25 mg PO DAILY 08/21/13 09/17/17 History Insulin Detemir [Levemir Flextouch] 28 units SQ HS 12/09/15 09/17/17 History glipiZIDE [Glucotrol] 15 mg PO DAILY 12/09/15 09/17/17 History metFORMIN HCL 1,000 mg PO BID 12/09/15 09/17/17 History Fluticasone/Vilanterol [Breo 1 puff INHALATION RT-DAILY 11/20/16 09/17/17 History Ellipta 200-25 Mcg INH] Hydrocodone/Acetaminophen [[place] 1 tab PO Q4H PRN 11/20/16 09/17/17 History 10-325] Lipase/Protease/Amylase [Creon Dr 1 cap PO TID 11/20/16 09/17/17 History 36,000 Units Capsule] Metoprolol Succinate (ER) [Toprol 50 mg PO DAILY 11/20/16 09/17/17 History XL] Albuterol Nebulized [Ventolin 2.5 mg INHALATION RT-QID #0 11/21/16 09/17/17 Rx Nebulized] INSULIN LISPRO (humaLOG) [humaLOG] See Protocol SQ ACHS 09/17/17 09/17/17 History Allergies Allergy/AdvReac Type Severity Reaction Status Date / Time meperidine HCl [From Demerol] Allergy Severe Rapid Verified 09/17/17 10:14 Heart Rate/VOMITING ibuprofen [From Motrin] AdvReac Vomiting Verified 09/17/17 10:14 Physical Exam Vitals: Vital Signs Temp Pulse Resp BP Pulse Ox 09/17/17 11:46 98 F 78 16 126/81 99 09/17/17 07:09 89 16 116/82 99 09/17/17 06:00 98.4 F 80 15 119/64 97 09/17/17 03:40 98 19 124/73 100 09/17/17 01:04 99 15 138/79 98 09/17/17 00:10 101 H 16 141/86 96 09/17/17 00:00 98.3 F 110 H 20 134/79 98 Intake and Output 09/17/17 09/17/17 09/17/17 06:59 14:59 22:59 Other: Weight 58.967 kg Results CBC & Chem 7: 09/17/17 00:16 09/17/17 00:16 Labs: Abnormal Lab Results - Last 24 Hours (Table) 09/17/17 09/17/17 09/17/17 Range/Units 00:16 00:16 00:21 Sodium 131 L (137-145) mmol/L Chloride 94 L (98-107) mmol/L BUN 25 H (9-20) mg/dL Glucose 394 H (74-99) mg/dL POC Glucose (mg/dL) 385 H (75-99) mg/dL CK-MB (CK-2) 3.0 H* (0.0-2.4) ng/mL Troponin I 0.074 H* (0.000-0.034) ng/mL Lipase 349 H (23-300) U/L Urine Protein (Negative) Urine Glucose (UA) (Negative) 09/17/17 09/17/17 09/17/17 Range/Units 04:24 05:41 06:27 Sodium (137-145) mmol/L Chloride (98-107) mmol/L BUN (9-20) mg/dL Glucose (74-99) mg/dL POC Glucose (mg/dL) 240 H (75-99) mg/dL CK-MB (CK-2) (0.0-2.4) ng/mL Troponin I 0.072 H* (0.000-0.034) ng/mL Lipase (23-300) U/L Urine Protein 1+ H (Negative) Urine Glucose (UA) 4+ H (Negative) 09/17/17 Range/Units 06:52 Sodium (137-145) mmol/L Chloride (98-107) mmol/L BUN (9-20) mg/dL Glucose (74-99) mg/dL POC Glucose (mg/dL) 156 H (75-99) mg/dL CK-MB (CK-2) (0.0-2.4) ng/mL Troponin I (0.000-0.034) ng/mL Lipase (23-300) U/L Urine Protein (Negative) Urine Glucose (UA) (Negative) Microbiology - Last 24 Hours (Table) 09/17/17 06:27 Urine Culture - Preliminary Urine,Voided
[2017-09-18] MEDS ORDERED: ASPIRIN 325 MG TAB PO SCH (09:00)
== END 2017-09-17 13:30 | disposition left against medical advice (07) ==
LOC: EC 09-17 00:40 → 3OBS 09-17 01:40 → 6SEL 09-17 01:48
PROVIDERS: ADMIT Hospitalist; ATTEND Hospitalist
DX: R07.9 Chest pain, unspecified (principal); K85.90 Acute pancreatitis without necrosis or infection, unspecified; K86.1 Other chronic pancreatitis; M79.671 Pain in right foot; G62.9 Polyneuropathy, unspecified; Z53.21 Procedure and treatment not carried out due to patient leaving prior to being seen by health care provider; I25.10 Atherosclerotic heart disease of native coronary artery without angina pectoris; I50.9 Heart failure, unspecified; J44.9 Chronic obstructive pulmonary disease, unspecified; E11.9 Type 2 diabetes mellitus without complications; E78.5 Hyperlipidemia, unspecified; I11.0 Hypertensive heart disease with heart failure; Z99.81 Dependence on supplemental oxygen; M19.90 Unspecified osteoarthritis, unspecified site; Z95.810 Presence of automatic (implantable) cardiac defibrillator; F17.200 Nicotine dependence, unspecified, uncomplicated; Z79.899 Other long term (current) drug therapy; Z79.84 Long term (current) use of oral hypoglycemic drugs; Z79.4 Long term (current) use of insulin; Z79.51 Long term (current) use of inhaled steroids; Z88.8 Allergy status to other drugs, medicaments and biological substances; Z88.5 Allergy status to narcotic agent
CPT/HCPCS: 96374 ×2; 96375 ×4; 96376 ×3; 99284 ×2; 36415; 93005; 80053; 82150; 82550; 82553; 82009; 83690; 84484; 85025; 81001; 87086; 83036; G0378; J3360; J2405; J2270; C9113

== ENCOUNTER → 2017-11-08 | Outpatient (CLI) | payer MEDICARE, OTHER ==
[2017-11-08 08:27] LABS: Albumin 4.4 g/dL (3.5-5.0); Calcium 9.3 mg/dL (8.4-10.2); Potassium 4.2 mmol/L (3.5-5.1); Total Bilirubin 0.8 mg/dL (0.2-1.3); Total Protein 6.6 g/dL (6.3-8.2)
== END | disposition home or self-care (01) ==
LOC: LABWHC1 07:40
PROVIDERS: ATTEND Nurse Practitioner Adult Health
DX: I50.23 Acute on chronic systolic (congestive) heart failure (principal)
CPT/HCPCS: 36415; 80053

== ENCOUNTER → 2017-11-18 | Outpatient (CLI) | payer MEDICARE, OTHER ==
[2017-11-18 13:31] LABS: ALT 33 U/L (21-72); AST 30 U/L (17-59); Albumin 3.9 g/dL (3.5-5.0); Alkaline Phosphatase 83 U/L (38-126); Anion Gap 8 mmol/L; Blood Urea Nitrogen 22 mg/dL (9-20); Calcium 8.9 mg/dL (8.4-10.2); Carbon Dioxide 27 mmol/L (22-30); Chloride 94 mmol/L (98-107); Glucose 368 mg/dL (74-99); Potassium 4.9 mmol/L (3.5-5.1); Sodium 129 mmol/L (137-145); Total Bilirubin 0.8 mg/dL (0.2-1.3); Total Protein 5.9 g/dL (6.3-8.2)
== END | disposition home or self-care (01) ==
LOC: LABWHC1 12:45
PROVIDERS: ATTEND Internal Medicine Critical Care Medicine
DX: E87.1 Hypo-osmolality and hyponatremia (principal)
CPT/HCPCS: 36415; 80053

== ENCOUNTER 2017-11-25 14:50 | Inpatient (IN) | payer MEDICARE, OTHER ==
--- NOTE | 2017-11-25 15:16 | XR ---
EXAMINATION TYPE: XR chest 2V DATE OF EXAM: 11/25/2017 COMPARISON: 08/19/2017 HISTORY: 57-year-old male difficulty breathing, pain TECHNIQUE: PA and lateral views FINDINGS: Left anterior chest wall AICD generator with right ventricular lead. Heart upper limits of normal in size. Mild diffuse interstitial prominence is a chronic appearance. Strandy atelectasis mid and lower lungs. No dulce consolidation or pleural effusion. Old left-sided upper rib fracture deformity. IMPRESSION: Chronic-appearing changes, possible chronic bronchitis/asthma. No definite acute process.
[2017-11-25 15:45] LABS: Basophils % (A) 0 %; Eosinophils % (A) 1 %; HCT 47.7 % (39.0-53.0); HGB 15.3 gm/dL (13.0-17.5); Lymphocytes # (A) 0.3 k/uL (1.0-4.8); Lymphocytes % (A) 6 %; MCH 30.4 pg (25.0-35.0); Mean Platelet Volume 7.2; Monocytes # (A) 0.4 k/uL (0-1.0); Monocytes % (A) 9 %; Neutrophils # (A) 3.7 k/uL (1.3-7.7); Neutrophils % (A) 83 %; Platelet Count 148 k/uL (150-450); RBC 5.02 m/uL (4.30-5.90); RDW 14.6 % (11.5-15.5); WBC 4.5 k/uL (3.8-10.6)
[2017-11-25 15:56] LABS: ALT 32 U/L (21-72); AST 29 U/L (17-59); Albumin 4.2 g/dL (3.5-5.0); Alkaline Phosphatase 108 U/L (38-126); Anion Gap 12 mmol/L; Blood Urea Nitrogen 17 mg/dL (9-20); Calcium 9.1 mg/dL (8.4-10.2); Carbon Dioxide 24 mmol/L (22-30); Chloride 94 mmol/L (98-107); Glucose 422 mg/dL (74-99); Potassium 5.1 mmol/L (3.5-5.1); Sodium 130 mmol/L (137-145); Total Bilirubin 0.9 mg/dL (0.2-1.3); Total Protein 6.6 g/dL (6.3-8.2)
[2017-11-25 16:02] LABS: INR 1.2 (<1.2); Partial Thromboplastin Time 25.7 sec (22.0-30.0); Prothrombin Time 11.4 sec (9.0-12.0)
[2017-11-25 16:10] LABS: Creatine Kinase MB 2.1 ng/mL (0.0-2.4)
[2017-11-25 16:11] LABS: Troponin I 0.039 ng/mL (0.000-0.034)
[2017-11-25] MEDS ORDERED: NITROGLYCERIN SL TABS 0.4 MG TAB SUBLINGUAL PRN (16:22)
[2017-11-25] MEDS ORDERED: FUROSEMIDE 10 MG/ML 4 ML VIAL IV STA (16:22)
[2017-11-25] MEDS ORDERED: methylPREDNISolone SOD SUCCI 125 MG/2 ML VIAL IV STA (16:22)
[2017-11-25] MEDS ORDERED: ALBUTEROL NEBULIZED 2.5 MG/3 ML INHALATION STA (16:22)
[2017-11-25] MEDS ORDERED: IPRATROPIUM 0.5 MG/2.5 ML NEBU INHALATION STA (16:22)
[2017-11-25] MEDS ORDERED: LORazepam 2 MG/ML INJ IV STA (16:22)
[2017-11-25] MEDS ORDERED: ASPIRIN 81 MG PO STA (16:22)
[2017-11-25 16:54] LABS: Magnesium 2.2 mg/dL (1.6-2.3)
--- NOTE | 2017-11-25 17:38 | ED ---
General Adult HPI - General Chief complaint: Abdominal Pain Stated complaint: Chest Pain Time Seen by Provider: 11/25/17 16:14 Source: patient, RN notes reviewed, old records reviewed Mode of arrival: wheelchair Limitations: no limitations - History of Present Illness Initial comments: This is a 57-year-old male the ER for evaluation. This patient presents today for evaluation regards to not feeling well. Patient states he hasn't abdominal pain, shortness of breath, denies chest pain. Patient has significant history of heart disease, as well as COPD. They debrided she was at home with no significant help. No recent travel history no known sick contacts. No fevers. - Related Data Home Medications Medication Instructions Recorded Confirmed Furosemide [Lasix] 40 mg PO BID 08/21/13 11/25/17 Ipratropium/Albuterol Sulfate 1 puff INHALATION RT-QID PRN 08/21/13 11/25/17 [Combivent Respimat Inhaler] Lisinopril [Zestril] 2.5 mg PO BID 08/21/13 11/25/17 Spironolactone [Aldactone] 25 mg PO DAILY 08/21/13 11/25/17 Insulin Detemir [Levemir Flextouch] 28 units SQ HS 12/09/15 11/25/17 glipiZIDE [Glucotrol] 10 mg PO DAILY 12/09/15 11/25/17 Fluticasone/Vilanterol [Breo 1 puff INHALATION RT-DAILY 11/20/16 11/25/17 Ellipta 200-25 Mcg INH] Lipase/Protease/Amylase [Alesia Dr 1 cap PO TID 11/20/16 11/25/17 36,000 Units Capsule] INSULIN LISPRO (humaLOG) [humaLOG] See Protocol SQ ACHS 09/17/17 11/25/17 Atorvastatin [Lipitor] 20 mg PO DAILY 11/25/17 11/25/17 Budesonide/Formoterol Fumarate 2 puff INHALATION BID 11/25/17 11/25/17 [Symbicort 160-4.5 Mcg Inhaler] Carvedilol [Coreg] 3.125 mg PO BID 11/25/17 11/25/17 Metoprolol Succinate [Toprol XL] 25 mg PO DAILY 11/25/17 11/25/17 metFORMIN HCL [Glucophage] 500 mg PO BID 11/25/17 11/25/17 Previous Rx's Medication Instructions Recorded Albuterol Nebulized [Ventolin 2.5 mg INHALATION RT-QID #0 11/21/16 Nebulized] Allergies Allergy/AdvReac Type Severity Reaction Status Date / Time meperidine HCl [From Demerol] Allergy Severe Rapid Verified 11/25/17 14:56 Heart Rate/VOMITING ibuprofen [From Motrin] AdvReac Vomiting Verified 11/25/17 14:56 Review of Systems ROS Statement: Those systems with pertinent positive or pertinent negative responses have been documented in the HPI. ROS Other: All systems not noted in ROS Statement are negative. Past Medical History Past Medical History: Coronary Artery Disease (CAD), Heart Failure, COPD, Diabetes Mellitus, Hyperlipidemia, Hypertension, Renal Disease Additional Past Medical History / Comment(s): PANCREATITIS, O2 DEPENDANT 4 LITERS [place], arthritis. bone infection L ear, hole in eardrum. History of Any Multi-Drug Resistant Organisms: None Reported Past Surgical History: AICD, Pacemaker Past Anesthesia/Blood Transfusion Reactions: No Reported Reaction Type of Cardiac Device: Permanent Pacemaker, Unknown Device Placement Date:: 2009 Past Psychological History: No Psychological Hx Reported Smoking Status: Current some day smoker Past Alcohol Use History: Occasional Past Drug Use History: None Reported - Past Family History Father Family Medical History: Congestive Heart Failure (CHF), COPD, Diabetes Mellitus Additional Family Medical History / Comment(s): mrsa, gbs, asbestoes exposure/ lings Mother Family Medical History: Diabetes Mellitus, Hypertension General Exam Limitations: no limitations General appearance: alert, anxious, in distress Head exam: Present: atraumatic, normocephalic, normal inspection Eye exam: Present: normal appearance, PERRL, EOMI. Absent: scleral icterus, conjunctival injection, periorbital swelling ENT exam: Present: normal exam, mucous membranes moist Neck exam: Present: normal inspection. Absent: tenderness, meningismus, lymphadenopathy Respiratory exam: Present: respiratory distress, wheezes, accessory muscle use, decreased breath sounds, prolonged expiratory. Absent: normal lung sounds bilaterally, rales, rhonchi, stridor Cardiovascular Exam: Present: regular rate, normal rhythm, normal heart sounds. Absent: systolic murmur, diastolic murmur, rubs, gallop, clicks GI/Abdominal exam: Present: soft, normal bowel sounds. Absent: distended, tenderness, guarding, rebound, rigid Extremities exam: Present: normal inspection, full ROM, normal capillary refill. Absent: tenderness, pedal edema, joint swelling, calf tenderness Back exam: Present: normal inspection Neurological exam: Present: alert, oriented X3, CN II-XII intact Psychiatric exam: Present: normal affect, normal mood Skin exam: Present: warm, dry, intact, normal color. Absent: rash Course Vital Signs 11/25/17 11/25/17 11/25/17 14:52 17:06 17:07 Temperature 98.8 F Pulse Rate 58 L 89 96 Respiratory 22 18 Rate Blood Pressure 136/80 144/82 O2 Sat by Pulse 99 100 Oximetry 11/25/17 11/25/17 11/25/17 17:20 17:55 17:59 Temperature Pulse Rate 102 H 99 Respiratory 20 Rate Blood Pressure O2 Sat by Pulse Oximetry EKG Findings - EKG Comments: EKG Findings:: EKG shows sinus rhythm rate of 93, MI 152, QRS 08, QTc 474 Medical Decision Making - Medical Decision Making 57 male to be admitted for COPD. Chest pain. History of pancreatitis and multiple other medical issues. Patient can be discharged home - Lab Data Result diagrams: 11/25/17 15:33 11/25/17 15:33 Lab Results 11/25/17 11/25/17 11/25/17 Range/Units 15:33 15:33 15:33 WBC 4.5 (3.8-10.6) k/uL RBC 5.02 (4.30-5.90) m/uL Hgb 15.3 (13.0-17.5) gm/dL Hct 47.7 (39.0-53.0) % MCV 95.0 (80.0-100.0) fL MCH 30.4 (25.0-35.0) pg MCHC 32.0 (31.0-37.0) g/dL RDW 14.6 (11.5-15.5) % Plt Count 148 L (150-450) k/uL Neutrophils % 83 % Lymphocytes % 6 % Monocytes % 9 % Eosinophils % 1 % Basophils % 0 % Neutrophils # 3.7 (1.3-7.7) k/uL Lymphocytes # 0.3 L (1.0-4.8) k/uL Monocytes # 0.4 (0-1.0) k/uL Eosinophils # 0.0 (0-0.7) k/uL Basophils # 0.0 (0-0.2) k/uL PT (9.0-12.0) sec INR (<1.2) APTT (22.0-30.0) sec Sodium 130 L (137-145) mmol/L Potassium 5.1 (3.5-5.1) mmol/L Chloride 94 L (98-107) mmol/L Carbon Dioxide 24 (22-30) mmol/L Anion Gap 12 mmol/L BUN 17 (9-20) mg/dL Creatinine 1.03 (0.66-1.25) mg/dL Est GFR (CKD-EPI)AfAm >90 (>60 ml/min/1.73 sqM) Est GFR (CKD-EPI)NonAf 80 (>60 ml/min/1.73 sqM) Glucose 422 H (74-99) mg/dL Calcium 9.1 (8.4-10.2) mg/dL Magnesium (1.6-2.3) mg/dL Total Bilirubin 0.9 (0.2-1.3) mg/dL AST 29 (17-59) U/L ALT 32 (21-72) U/L Alkaline Phosphatase 108 (38-126) U/L Total Creatine Kinase 96 (55-170) U/L CK-MB (CK-2) 2.1 (0.0-2.4) ng/mL CK-MB (CK-2) Rel Index 2.2 Troponin I 0.039 H* (0.000-0.034) ng/mL NT-Pro-B Natriuret Pep pg/mL Total Protein 6.6 (6.3-8.2) g/dL Albumin 4.2 (3.5-5.0) g/dL Lipase (23-300) U/L 11/25/17 11/25/17 11/25/17 Range/Units 15:33 15:33 15:33 WBC (3.8-10.6) k/uL RBC (4.30-5.90) m/uL Hgb (13.0-17.5) gm/dL Hct (39.0-53.0) % MCV (80.0-100.0) fL MCH (25.0-35.0) pg MCHC (31.0-37.0) g/dL RDW (11.5-15.5) % Plt Count (150-450) k/uL Neutrophils % % Lymphocytes % % Monocytes % % Eosinophils % % Basophils % % Neutrophils # (1.3-7.7) k/uL Lymphocytes # (1.0-4.8) k/uL Monocytes # (0-1.0) k/uL Eosinophils # (0-0.7) k/uL Basophils # (0-0.2) k/uL PT 11.4 (9.0-12.0) sec INR 1.2 H (<1.2) APTT 25.7 (22.0-30.0) sec Sodium (137-145) mmol/L Potassium (3.5-5.1) mmol/L Chloride (98-107) mmol/L Carbon Dioxide (22-30) mmol/L Anion Gap mmol/L BUN (9-20) mg/dL Creatinine (0.66-1.25) mg/dL Est GFR (CKD-EPI)AfAm (>60 ml/min/1.73 sqM) Est GFR (CKD-EPI)NonAf (>60 ml/min/1.73 sqM) Glucose (74-99) mg/dL Calcium (8.4-10.2) mg/dL Magnesium 2.2 (1.6-2.3) mg/dL Total Bilirubin (0.2-1.3) mg/dL AST (17-59) U/L ALT (21-72) U/L Alkaline Phosphatase (38-126) U/L Total Creatine Kinase (55-170) U/L CK-MB (CK-2) (0.0-2.4) ng/mL CK-MB (CK-2) Rel Index Troponin I (0.000-0.034) ng/mL NT-Pro-B Natriuret Pep 84200 pg/mL Total Protein (6.3-8.2) g/dL Albumin (3.5-5.0) g/dL Lipase 116 (23-300) U/L - Radiology Data Radiology results: report reviewed (CXR negative,CT abd pelvis negative), image reviewed Critical Care Time Critical Care Time: Yes Total Critical Care Time: 31 Disposition Clinical Impression: Hypoxia, Acute coronary syndrome, COPD (chronic obstructive pulmonary disease) Disposition: ADMITTED IP TO THIS HOSP Condition: Fair Is patient prescribed a controlled substance at d/c from ED?: No Referrals: Yusuf Lind MD [Primary Care Provider] - 1-2 days
[2017-11-25] MEDS: methylPREDNISolone SOD SUCCI 125 MG/2 ML VIAL IV SCH ×2 (18:59→23:53)
--- NOTE | 2017-11-25 19:04 | CT ---
EXAMINATION TYPE: CT abdomen pelvis w con DATE OF EXAM: 11/25/2017 COMPARISON: 06/29/2016 HISTORY: Generalized abdominal pain. CT DLP: 409.2 mGycm Automated exposure control for dose reduction was used. TECHNIQUE: Helical acquisition of images was performed from the lung bases through the pelvis. CONTRAST: Performed without Oral Contrast and with IV Contrast, patient injected with 100 mL of Isovue 300. FINDINGS: Lung bases are clear of consolidation. Heart is enlarged. Liver shows no focal defect. There is possi ble small 5 mm calcified gallstone. Spleen shows no discrete defect. The graft there is extensive cys tic change and calcification in the pancreas. Bile ducts are not dilated. There is no adrenal mass. Kidneys show satisfactory contrast opacification. There is no hydronephrosi s. Ureters are not dilated. Bladder distends smoothly. There is mild free fluid in the abdomen. There is no evidence of a bowel obstruction. There is no free air. There is no retroperitoneal adenopathy. Abdominal aorta is atheromatous. There is no intestinal wall thickening. IMPRESSION: CYSTIC CHANGES AND CALCIFICATION IN THE PANCREAS CONSISTENT WITH CHRONIC PANCREATITIS AND MULTIPLE PS EUDOCYSTS. THIS APPEARS STABLE COMPARED TO OLD EXAM. THERE IS NEW MILD ASCITES COMPARED TO OLD EXAM. MODERATE CARDIOMEGALY. SMALL CALCIFIED GALLSTONE UNCHANGED.
[2017-11-25] MEDS ORDERED: INSULIN REGULAR 100 UNIT/ML VIAL SQ ONE (20:05)
[2017-11-25] MEDS ORDERED: INSULIN REGULAR 100 UNIT/ML VIAL IV ONE (20:05)
[2017-11-25] MEDS ORDERED: SODIUM CHLORIDE 0.9% 1,000 ML IV ONE ×2 (20:05→21:16)
[2017-11-25] MEDS ORDERED: SODIUM CHLORIDE 0.9% 500 ML IV ONE (20:05)
[2017-11-25 20:16] LABS: Glucose,Whole Blood 518 mg/dL (75-99)
[2017-11-25] MEDS: IPRATROPIUM-ALBUTEROL 3 ML NEB INHALATION SCH (20:24)
[2017-11-25 20:28] LABS: Appearance,Urine Clear (Clear); Bacteria,Urine Rare /hpf; Bilirubin,Urine Negative (Negative); Blood,Urine Negative (Negative); Color,Urine Light Yellow; Glucose,Urine (UA) 4+ (Negative); Ketones,Urine Trace (Negative); Leukocyte Esterase,Urine Negative (Negative); Nitrite,Urine Negative (Negative); Protein,Urine 1+ (Negative); RBC,Urine 1 /hpf (0-5); Specific Gravity,Urine 1.012 (1.001-1.035); Urobilinogen,Urine <2.0 mg/dL (<2.0)
[2017-11-25 21:03] LABS: Glucose,Whole Blood >600 mg/dL (75-99)
[2017-11-25] MEDS ORDERED: Magnesium Replacement Protocol 1 EACH MISC MISCELLANE PRN (21:16)
[2017-11-25] MEDS ORDERED: Potassium Replacement Protocol 1 EACH MISC MISCELLANE PRN (21:16)
[2017-11-25] MEDS ORDERED: INSULIN REGULAR BOLUS (FROM DRIP BAG) IV ONE (21:16)
[2017-11-25] MEDS ORDERED: SODIUM CHLORIDE 0.9% 1,000 ML IV SCH (21:30)
[2017-11-25] MEDS ORDERED: D5-0.45% NACL WITH KCL 20MEQ/L 1,000 ML IV SCH (21:30)
[2017-11-25] MEDS ORDERED: INSULIN REGULAR 100 UNIT in SODIUM CHLORIDE 0.9% 100 ML IV SCH (21:30)
[2017-11-25 21:39] LABS: Glucose,Whole Blood >600 mg/dL (75-99)
[2017-11-25 22:07] LABS: Glucose,Whole Blood 524 mg/dL (75-99)
[2017-11-25 22:52] VITALS: BMI 19.8
[2017-11-25] MEDS ORDERED: IPRATROPIUM-ALBUTEROL 3 ML NEB INHALATION PRN (23:04)
[2017-11-25 23:06] LABS: Creatine Kinase MB 1.9 ng/mL (0.0-2.4)
[2017-11-25] MEDS ORDERED: MORPHINE SULFATE 2 MG/ML SYRINGE IVP PRN (23:06)
[2017-11-25] MEDS ORDERED: TEMAZEPAM 15 MG CAP PO PRN (23:07)
[2017-11-25] MEDS ORDERED: HYDROcodone/APAP 5-325MG 1 EACH TAB PO PRN (23:07)
[2017-11-25] MEDS ORDERED: LORazepam 0.5 MG TAB PO PRN (23:07)
[2017-11-25 23:17] LABS: Troponin I 0.046 ng/mL (0.000-0.034)
[2017-11-25 23:19] LABS: Glucose,Whole Blood 487 mg/dL (75-99)
[2017-11-25] MEDS: HEPARIN SODIUM,PORCINE 5,000 UNIT/ML 1 ML VIAL SQ SCH (23:44)
[2017-11-25] MEDS: cefTRIAXone IN SWFI 1,000 MG/10 ML SYRINGE IVP SCH (23:44)
[2017-11-25] MEDS: PANTOPRAZOLE 40 MG/10 ML VIAL IVP SCH (23:45)
[2017-11-25] MEDS: INSULIN REGULAR 100 UNIT in SODIUM CHLORIDE 0.9% 100 ML IV SCH (23:46)
--- NOTE | 2017-11-25 23:56 | HP ---
HISTORY AND PHYSICAL DATE OF SERVICE: 11/25/2017 CHIEF COMPLAINTS: Abdominal pain and shortness of breath. HISTORY OF PRESENT ILLNESS: I am covering for Dr. Lind. This 57-year-old gentleman with a past medical history of multiple medical issues, including CAD, CHF, COPD, diabetes mellitus, hypertension, hyperlipidemia, history of pancreatitis, AICD pacemaker being followed by Dr. Lind in the outpatient setting, is complaining of several days of increasing shortness of breath with diffuse abdominal pain. The patient previously had an episode of chest pain as well as the acute pancreatitis, admitted and the patient left the hospital AGAINST MEDICAL ADVICE. Patient used to drink heavily, according to him. Currently the patient is on smoking and drinking occasionally, according to him. The chest x-ray showed some evidence of some CHF also. BNP was elevated. The patient has also had blood sugar elevated more than 600. The patient is started on insulin drip also. There is no evidence of diabetic ketoacidosis at this time. There is no history of any fever, rigors. No history of headache, loss of consciousness, seizures at this time. The troponin is elevated up to 0.039. BNP is 2200. PAST MEDICAL HISTORY: History of CAD, CHF, COPD, diabetes mellitus, hypertension, hyperlipidemia, renal disease, pancreatitis, COPD, chronic hypoxic respiratory failure. MEDICATIONS: 1. Glucophage 500 mg p.o. b.i.d. 2. Glucotrol 10 mg p.o. daily. 3. Aldactone 25 mg p.o. daily. 4. Toprol-XL 25 mg p.o. daily. 5. Zestril 2.5 mg b.i.d. 6. Creon 1 capsule p.o. t.i.d. 7. Combivent 1 puff q.i.d. p.r.n. 8. Levemir 28 units subcu q.h.s. 9. Humalog a.c. and at bedtime. 10.Lasix 40 mg p.o. b.i.d. 11.Breo Ellipta 1 puff daily. 12.Coreg 3.125 mg p.o. b.i.d. 13.Symbicort 160/4.5 two puffs b.i.d. 14.Lipitor 20 mg daily. 15.Ventolin 2.5 q.i.d. ALLERGIES: MEPERIDINE, IBUPROFEN. FAMILY HISTORY: History of CHF, COPD, diabetes mellitus, history of MRSA, asbestos exposure. SOCIAL HISTORY: History of smoking and alcohol as mentioned earlier. REVIEW OF SYSTEMS: ENT: Diminished hearing, diminished vision. CARDIOVASCULAR: As mentioned earlier. RESPIRATORY: As mentioned earlier. GI: As mentioned earlier. : No dysuria. NERVOUS: No numbness or weakness. ALLERGY/IMMUNOLOGY: No asthma or hay fever. MUSCULOSKELETAL: As mentioned earlier. HEMATOLOGY/ONCOLOGY: No history of anemia. ENDOCRINE: As mentioned earlier. CONSTITUTIONAL: As mentioned earlier. DERMATOLOGY: Negative. RHEUMATOLOGY: Negative. PSYCHIATRY: As mentioned earlier. PHYSICAL EXAM: Patient is alert, oriented x3. The patient is short of breath at rest. HEENT: Conjunctivae normal. Oral mucosa moist. NECK: No jugular venous distention. No thyroid enlargement. No carotid bruits. No accessory muscles of respirations acting. CARDIOVASCULAR: S1, S2 muffled. No S3, S4. RESPIRATORY: Breath sounds diminished in the bases. Bilateral scattered rhonchi and crackles. Expiratory wheezing also present. ABDOMEN: Soft. Mild diffuse tenderness present. No mass palpable. LEGS: No edema. No swelling. NERVOUS SYSTEM: No focal deficits. LYMPHATIC: No lymphadenopathy in neck, axillae or groin. SKIN: No ulcer, rash or bleeding. JOINTS: No active deforming arthropathy. LAB STUDIES: WBC 12.5, hemoglobin is 15.8, platelets 148. Sodium is 130, potassium is 5.1, glucose is 524. Troponin 0.039. ASSESSMENT: 1. Shortness of breath, possibly a combination of congestive heart failure acute exacerbation with acute on chronic systolic dysfunction, ejection fraction 40%-45% as well as chronic obstructive pulmonary disease acute exacerbation. 2. Chronic hypoxic respiratory failure. 3. Diabetes mellitus type 2, uncontrolled with hyperglycemia. 4. Hyponatremia. 5. Abdominal pain, possibly acute on chronic pancreatitis. 6. Troponin 0.039, indeterminate. 7. Remote history of EtOH. 8. History of nicotine dependence. 9. History of coronary artery disease. 10.History of hyperlipidemia. 11.Hypertension. 12.History of renal disease. 13.History of degenerative joint disease. 14.History of automatic implantable cardioverter-defibrillator. 15.History of permanent pacemaker. RECOMMENDATIONS AND DISCUSSION: In this 57-year-old gentleman who presented with multiple complex medical issues as mentioned earlier, will monitor the patient closely. Will limit IV fluids. IV Lasix. Monitor BUN, creatinine, fluid balance closely. Otherwise, a cardiology consultation, a 2D echo will be ordered. Also recommend intensive bronchodilator treatment for the shortness of breath and also continue with insulin drip with steroids. Otherwise, continue the rest of medications. DVT prophylaxis. The prognosis is guarded because of multiple complex medical issues and further recommendations to follow. A copy of this dictation will be forwarded to Dr. Lind, who is the primary physician . Proton pump inhibitors. See orders for further details. MMODL / IJN: [id number] /
[2017-11-26 00:21] LABS: Glucose,Whole Blood 398 mg/dL (75-99)
[2017-11-26 00:52] LABS: Glucose,Whole Blood 349 mg/dL (75-99)
[2017-11-26 01:06] LABS: Glucose,Whole Blood 377 mg/dL (75-99)
[2017-11-26 01:44] LABS: Glucose,Whole Blood 297 mg/dL (75-99)
[2017-11-26 02:14] LABS: Glucose,Whole Blood 258 mg/dL (75-99)
[2017-11-26 02:35] LABS: Glucose,Whole Blood 227 mg/dL (75-99)
[2017-11-26 03:51] LABS: Basophils % (A) 0 %; Eosinophils % (A) 0 %; HCT 44.2 % (39.0-53.0); HGB 14.1 gm/dL (13.0-17.5); Lymphocytes # (A) 0.2 k/uL (1.0-4.8); Lymphocytes % (A) 8 %; MCHC 31.8 g/dL (31.0-37.0); MCV 94.4 fL (80.0-100.0); Mean Platelet Volume 6.9; Monocytes # (A) 0.1 k/uL (0-1.0); Monocytes % (A) 5 %; Neutrophils % (A) 85 %; Platelet Count 143 k/uL (150-450); RBC 4.68 m/uL (4.30-5.90); RDW 14.5 % (11.5-15.5); WBC 2.4 k/uL (3.8-10.6)
[2017-11-26 04:08] LABS: Calcium 8.7 mg/dL (8.4-10.2); Phosphorus 3.2 mg/dL (2.5-4.5); Potassium 3.9 mmol/L (3.5-5.1)
[2017-11-26 04:10] LABS: Glucose,Whole Blood 200 mg/dL (75-99)
[2017-11-26 04:34] LABS: Creatine Kinase MB 1.9 ng/mL (0.0-2.4)
[2017-11-26 04:44] LABS: Troponin I 0.037 ng/mL (0.000-0.034)
[2017-11-26 06:02] LABS: Glucose,Whole Blood 137 mg/dL (75-99)
[2017-11-26] MEDS: FUROSEMIDE 10 MG/ML 4 ML VIAL IV SCH ×3 (06:20→21:13)
[2017-11-26] MEDS: methylPREDNISolone SOD SUCCI 125 MG/2 ML VIAL IV SCH ×2 (06:21→12:17)
[2017-11-26] MEDS: CARVEDILOL 3.125 MG TAB PO SCH ×2 (06:23→17:09)
[2017-11-26] MEDS: PROTEASE PO SCH ×4 (06:24→17:09)
[2017-11-26] MEDS: AMYLASE PO SCH ×4 (06:24→17:09)
[2017-11-26] MEDS: LIPASE PO SCH ×4 (06:24→17:09)
[2017-11-26] MEDS: INSULIN ASPART 100 UNIT/ML 1 ML 10 ML VIAL SQ SCH ×3 (07:10→17:09)
[2017-11-26] MEDS ORDERED: metFORMIN 500 MG TAB PO SCH (07:30)
[2017-11-26] MEDS: MORPHINE ORAL SOLN 10 MG/5 ML CUP PO PRN ×3 (08:12→22:08)
[2017-11-26] MEDS: ATORVASTATIN 20 MG TAB PO SCH (08:15)
[2017-11-26] MEDS: PANTOPRAZOLE 40 MG/10 ML VIAL IVP SCH ×2 (08:15→21:09)
[2017-11-26] MEDS: LISINOPRIL 2.5 MG TAB PO SCH ×2 (08:15→21:09)
[2017-11-26] MEDS: SPIRONOLACTONE 25 MG TAB PO SCH (08:15)
[2017-11-26] MEDS: METOPROLOL SUCCINATE (ER) 25 MG TAB.ER.24H PO SCH (08:15)
[2017-11-26] MEDS: HEPARIN SODIUM,PORCINE 5,000 UNIT/ML 1 ML VIAL SQ SCH ×2 (08:16→21:13)
[2017-11-26] MEDS: cefTRIAXone IN SWFI 1,000 MG/10 ML SYRINGE IVP SCH (08:16)
[2017-11-26] MEDS: NICOTINE 21MG/24HR PATCH TRANSDERM SCH (08:17)
[2017-11-26] MEDS: IPRATROPIUM-ALBUTEROL 3 ML NEB INHALATION SCH ×4 (08:25→21:14)
[2017-11-26] MEDS: BUDESONIDE 1 MG/2 ML NEBU INHALATION SCH ×2 (08:25→21:14)
[2017-11-26] MEDS: FORMOTEROL FUMARATE 20 MCG/2 ML NEBU INHALATION SCH ×2 (08:25→21:14)
[2017-11-26 08:56] LABS: Glucose,Whole Blood 196 mg/dL (75-99)
[2017-11-26] MEDS ORDERED: ASPIRIN 325 MG TAB PO SCH (09:00)
[2017-11-26] MEDS ORDERED: glipiZIDE 10 MG TAB PO SCH (09:00)
--- NOTE | 2017-11-26 10:13 | P.CNPUL ---
History of Present Illness Consult date: 11/26/17 Requesting physician: Yusuf Lind Reason for consult: dyspnea, abnormal CXR/CT Chief complaint: Shortness of breath, lower extremity edema History of present illness: This is a very pleasant 57-year-old gentleman follows with Dr. Lind as his primary care physician. He has a history of coronary artery disease, cardiomyopathy last ejection fraction 45% status post AICD placement, alcoholism , pancreatitis, diabetes mellitus, hypertension, hyperlipidemia, renal disease. He also has a history of chronic tobacco dependence with severe oxygen dependent chronic obstructive pulmonary disease and follows with Dr. Khanna in our office for the same. He is maintained on Breo and Combivent. He was seen in the office yesterday and was noted to have significant increased swelling in lower extremities, increasing shortness of breath, congestion, abdominal discomfort. He was referred to the emergency room for evaluation. Chest x-ray revealed evidence of chronic obstructive pulmonary disease and chronic bronchitis but no acute pulmonary process. Computed tomography scan of the abdomen revealed cystic changes and calcification in the pancreas consistent with chronic pancreatitis and multiple pseudocysts. Stable compared to previous. There was new mild ascites noted. Moderate cardiomegaly. White count 2.4. Hemoglobin 14.1. Creatinine 1.06. Troponin 0.039, 0.046, 0.037. Pro BNP 22,200. He is seen today in consultation on the selective care unit. Currently he is awake and alert in no acute distress. He is dyspneic with minimal exertion however. He has a dry nonproductive cough. He is maintaining O2 saturations in the 90s on 4 L/m per nasal cannula. He has been afebrile. Hemodynamically stable. 1-2+ lower extremity edema which she states is improved compared to yesterday. He had been initiated on Lasix 40 mg IV push every 12 hours. Bronchodilators, IV Solu-Medrol. Review of Systems Constitutional: Reports chronic pain, Reports fatigue, Reports poor appetite, Reports weakness, Reports weight gain Eyes: denies blurred vision, denies decreased vision Ears: deny: decreased hearing Ears, nose, mouth and throat: Denies headache, Denies sore throat Cardiovascular: Reports dyspnea on exertion, Reports leg edema, Reports shortness of breath Respiratory: Reports congestion, Reports cough, Reports dyspnea, Reports home oxygen, Reports wheezing Gastrointestinal: Reports bloating Genitourinary: Reports urinary frequency Musculoskeletal: Reports low back pain Musculoskeletal: bilateral: ankle swelling, foot swelling Integumentary: Reports color changes Neurological: Reports weakness Psychiatric: Reports anxiety, Reports irritability Endocrine: Reports high blood sugars Hematologic/Lymphatic: Reports as per HPI Allergic/Immunologic: Reports as per HPI Past Medical History Past Medical History: Coronary Artery Disease (CAD), Heart Failure, COPD, Diabetes Mellitus, Hyperlipidemia, Hypertension, Renal Disease Additional Past Medical History / Comment(s): PANCREATITIS, O2 DEPENDANT 4 LITERS [place], arthritis. bone infection L ear, hole in eardrum. History of Any Multi-Drug Resistant Organisms: None Reported Past Surgical History: AICD, Pacemaker Past Anesthesia/Blood Transfusion Reactions: No Reported Reaction Type of Cardiac Device: Permanent Pacemaker, Unknown Device Placement Date:: 2009 Past Psychological History: No Psychological Hx Reported Smoking Status: Current some day smoker Past Alcohol Use History: Occasional Additional Past Alcohol Use History / Comment(s): started smoking age 8, smoked 2 ppd, quit 2012 after severl attempts to quit, drinks occassionaly Past Drug Use History: None Reported - Past Family History Father Family Medical History: Congestive Heart Failure (CHF), COPD, Diabetes Mellitus Additional Family Medical History / Comment(s): mrsa, gbs, asbestoes exposure/ lings Mother Family Medical History: Diabetes Mellitus, Hypertension Medications and Allergies Home Medications Medication Instructions Recorded Confirmed Type Furosemide [Lasix] 40 mg PO BID 08/21/13 11/25/17 History Ipratropium/Albuterol Sulfate 1 puff INHALATION RT-QID PRN 08/21/13 11/25/17 History [Combivent Respimat Inhaler] Lisinopril [Zestril] 2.5 mg PO BID 08/21/13 11/25/17 History Spironolactone [Aldactone] 25 mg PO DAILY 08/21/13 11/25/17 History Insulin Detemir [Levemir Flextouch] 28 units SQ HS 12/09/15 11/25/17 History glipiZIDE [Glucotrol] 10 mg PO DAILY 12/09/15 11/25/17 History Fluticasone/Vilanterol [Breo 1 puff INHALATION RT-DAILY 11/20/16 11/25/17 History Ellipta 200-25 Mcg INH] Lipase/Protease/Amylase [Creon Dr 1 cap PO TID 11/20/16 11/25/17 History 36,000 Units Capsule] Albuterol Nebulized [Ventolin 2.5 mg INHALATION RT-QID #0 11/21/16 11/25/17 Rx Nebulized] INSULIN LISPRO (humaLOG) [humaLOG] See Protocol SQ ACHS 09/17/17 11/25/17 History Atorvastatin [Lipitor] 20 mg PO DAILY 11/25/17 11/25/17 History Budesonide/Formoterol Fumarate 2 puff INHALATION BID 11/25/17 11/25/17 History [Symbicort 160-4.5 Mcg Inhaler] Carvedilol [Coreg] 3.125 mg PO BID 11/25/17 11/25/17 History Metoprolol Succinate [Toprol XL] 25 mg PO DAILY 11/25/17 11/25/17 History metFORMIN HCL [Glucophage] 500 mg PO BID 11/25/17 11/25/17 History Gabapentin [Neurontin] 300 mg PO BID 11/26/17 11/26/17 History Allergies Allergy/AdvReac Type Severity Reaction Status Date / Time meperidine HCl [From Demerol] Allergy Severe Rapid Verified 11/25/17 14:56 Heart Rate/VOMITING ibuprofen [From Motrin] AdvReac Vomiting Verified 11/25/17 14:56 Physical Exam Vitals: Vital Signs Temp Pulse Pulse Resp BP BP Pulse Ox 11/26/17 08:46 108 H 11/26/17 08:40 100 11/26/17 08:35 98 11/26/17 08:25 102 H 11/26/17 03:30 97.1 F L 84 20 105/66 97 11/26/17 00:15 96.9 F L 78 22 127/61 99 11/25/17 22:43 97.0 F L 74 24 139/58 11/25/17 22:20 97.0 F L 74 24 139/58 98 11/25/17 22:14 98.3 F 62 18 133/80 97 11/25/17 20:32 93 11/25/17 20:25 100 11/25/17 19:59 67 18 139/80 97 11/25/17 17:59 20 11/25/17 17:55 99 11/25/17 17:20 102 H 11/25/17 17:07 96 18 144/82 100 11/25/17 17:06 89 11/25/17 14:52 98.8 F 58 L 22 136/80 99 Intake and Output 11/25/17 11/26/17 11/26/17 22:59 06:59 14:59 Intake Total 68.172 1.533 Balance 68.172 1.533 Intake: Intake, IV Titration 68.172 1.533 Amount Insulin Regular 100 unit 68.172 1.533 In Sodium Chloride 0.9% 100 ml @ Titrate IV .Q0M [facility] Rx#:[id number] Other: # Voids 1 Weight 60.8 kg 60.8 kg - Constitutional General appearance: cooperative, disheveled, mild distress - EENT Eyes: EOMI, PERRLA, poor dentition Ears: bilateral: normal - Neck Neck: normal ROM Carotids: bilateral: upstroke normal Thyroid: bilateral: normal size - Respiratory Respiratory: bilateral: diminished, rales, wheezing, prolonged expiration - Cardiovascular Rhythm: regular Heart sounds: normal: S1, S2 Abnormal Heart Sounds: systolic murmur - Gastrointestinal General gastrointestinal: normal bowel sounds - Integumentary Integumentary: normal turgor - Neurologic Neurologic: CNII-XII intact - Musculoskeletal Musculoskeletal: generalized weakness - Psychiatric Psychiatric: A&O x's 3, appropriate affect, intact judgment & insight Results - Laboratory Findings CBC and BMP: 11/26/17 03:11 11/26/17 03:11 PT/INR, D-dimer PT 11.4 sec (9.0-12.0) 11/25/17 15:33 INR 1.2 (<1.2) H 11/25/17 15:33 Abnormal lab findings: Abnormal Labs 11/25/17 11/25/17 11/25/17 15:33 15:33 15:33 WBC Plt Count 148 L Lymphocytes # 0.3 L INR Sodium 130 L Chloride 94 L BUN Glucose 422 H POC Glucose (mg/dL) Troponin I 0.039 H* HDL Cholesterol Urine Protein Urine Glucose (UA) Urine Ketones Urine Bacteria 11/25/17 11/25/17 11/25/17 15:33 20:03 20:08 WBC Plt Count Lymphocytes # INR 1.2 H Sodium Chloride BUN Glucose POC Glucose (mg/dL) 518 H Troponin I HDL Cholesterol Urine Protein 1+ H Urine Glucose (UA) 4+ H Urine Ketones Trace H Urine Bacteria Rare H 11/25/17 11/25/17 11/25/17 20:58 21:24 21:57 WBC Plt Count Lymphocytes # INR Sodium Chloride BUN Glucose POC Glucose (mg/dL) >600 H >600 H 524 H Troponin I HDL Cholesterol Urine Protein Urine Glucose (UA) Urine Ketones Urine Bacteria 11/25/17 11/25/17 11/26/17 22:25 23:16 00:09 WBC Plt Count Lymphocytes # INR Sodium Chloride BUN Glucose POC Glucose (mg/dL) 487 H 398 H Troponin I 0.046 H* HDL Cholesterol Urine Protein Urine Glucose (UA) Urine Ketones Urine Bacteria 11/26/17 11/26/17 11/26/17 00:34 01:01 01:32 WBC Plt Count Lymphocytes # INR Sodium Chloride BUN Glucose POC Glucose (mg/dL) 349 H 377 H 297 H Troponin I HDL Cholesterol Urine Protein Urine Glucose (UA) Urine Ketones Urine Bacteria 11/26/17 11/26/17 11/26/17 02:02 02:34 03:11 WBC Plt Count Lymphocytes # INR Sodium Chloride BUN Glucose POC Glucose (mg/dL) 258 H 227 H Troponin I 0.037 H* HDL Cholesterol Urine Protein Urine Glucose (UA) Urine Ketones Urine Bacteria 11/26/17 11/26/17 11/26/17 03:11 03:11 03:59 WBC 2.4 L Plt Count 143 L Lymphocytes # 0.2 L INR Sodium 135 L Chloride BUN 23 H Glucose 213 H POC Glucose (mg/dL) 200 H Troponin I HDL Cholesterol 77 H Urine Protein Urine Glucose (UA) Urine Ketones Urine Bacteria 11/26/17 11/26/17 05:57 08:51 WBC Plt Count Lymphocytes # INR Sodium Chloride BUN Glucose POC Glucose (mg/dL) 137 H 196 H Troponin I HDL Cholesterol Urine Protein Urine Glucose (UA) Urine Ketones Urine Bacteria - Diagnostic Findings Chest x-ray: image reviewed Assessment and Plan Assessment: Impression: #1 Acute on chronic hypoxic respiratory failure secondary to an acute exacerbation of chronic obstructive pulmonary disease as well as an acute exacerbation of chronic systolic congestive heart failure. #2 Peripheral edema of the lower extremities secondary to above. #3 History of severe nonischemic cardiomyopathy with previous ejection fraction 30%, more recently 45%. Status post AICD placement. #4 History of alcoholism. #5 History of chronic pancreatitis with pseudocysts. #6 Diabetes mellitus with steroid-induced hyperglycemia. #7 Hypertension. #8 Hyperlipidemia. #9 Chronic tobacco dependence. #10 Progressive weight loss secondary to chronic malabsorption Plan: The patient was seen and evaluated by Dr. Steiner. Chest x-ray and labs were reviewed. We'll go ahead and treat the patient for both his COPD and CHF exacerbations. Continue IV diuretics. Continue DuoNeb inhalations, Pulmicort and Perforomist inhalations IV Solu-Medrol. He is currently on insulin drip at 2.5 units per hour. Heparin for DVT prophylaxis. Protonix for GI prophylaxis. He is again educated regarding the importance of complete smoking cessation. He states he is smoking very little these days. Declined Habitrol patch. We will increase his activity as tolerated. We'll continue to follow and make further recommendations based on his clinical status. I, the cosigning physician, performed a history & physical examination of the patient. Lungs sounds with bilateral end expiratory wheeze, crackles in the posterior bases, diminished. Maintaining good O2 saturations in the 90s on 4 L/ m per nasal cannula. I discussed the assessment and plan of care with my nurse practitioner, Elenita Anne. I attest to the above consultation as dictated by her. Time with Patient: Greater than 30
--- NOTE | 2017-11-26 10:27 | P.CRDCN ---
History of Present Illness Consult date: 11/26/17 Requesting physician: Yusuf Lind Consult reason: congestive heart failure Chief complaint: Shortness of breath and leg swelling History of present illness: This is a 57-year-old gentleman who follows with Dr. Jeffrey in the office. He has history of nonischemic cardiomyopathy, secondary to EtOH, history of systolic congestive heart failure, hypertension, diabetes, COPD, hyperlipidemia, family history of premature coronary artery disease. He underwent a cardiac cath in 2005 which revealed no coronary arteries. Patient also has history of single-chamber ICD which was implanted for severe nonischemic cardiomyopathy. History of chronic pancreatitis, nicotine dependence, prior history of alcoholism. He presents to the hospital with symptoms of 3 weeks or more duration of progressively worsening shortness of breath as well as bilateral lower extremity edema. He states that he called cardiology office could not see Dr. Jeffrey for a couple of months and for this reason came to the emergency room for further evaluation. Most recent echocardiogram with Doppler study from 2016 shows an ejection fraction of 45-50% . Chest x-ray on arrival here revealed chronic appearing changes possible chronic bronchitis or asthma. EKG shows a normal sinus rhythm with left anterior fascicular block, occasional PVCs, nonspecific ST-T wave changes. White blood cell count 4.5 on admission 2.4 this morning, hemoglobin 14.1, platelet count 143. Sodium 135, potassium 3.9, BUN 23, creatinine 1.0. Blood sugar on arrival 487. BNP level 22,200. Troponins 0.039, 0.046, 0.037. At the time of my examination this morning, patient continues to feel quite short of breath, he states he has put out good urine from the Lasix he received in the emergency room and his swelling is much improved from admission although he continues to have significant peripheral edema. Patient is also coughing up significant amounts of [place] sputum. Past Medical History Past Medical History: Coronary Artery Disease (CAD), Heart Failure, COPD, Diabetes Mellitus, Hyperlipidemia, Hypertension, Renal Disease Additional Past Medical History / Comment(s): PANCREATITIS, O2 DEPENDANT 4 LITERS [place], arthritis. bone infection L ear, hole in eardrum. History of Any Multi-Drug Resistant Organisms: None Reported Past Surgical History: AICD, Pacemaker Past Anesthesia/Blood Transfusion Reactions: No Reported Reaction Type of Cardiac Device: Permanent Pacemaker, Unknown Device Placement Date:: 2009 Past Psychological History: No Psychological Hx Reported Smoking Status: Current some day smoker Past Alcohol Use History: Occasional Additional Past Alcohol Use History / Comment(s): started smoking age 8, smoked 2 ppd, quit 2012 after severl attempts to quit, drinks occassionaly Past Drug Use History: None Reported - Past Family History Father Family Medical History: Congestive Heart Failure (CHF), COPD, Diabetes Mellitus Additional Family Medical History / Comment(s): mrsa, gbs, asbestoes exposure/ lings Mother Family Medical History: Diabetes Mellitus, Hypertension Medications and Allergies Home Medications Medication Instructions Recorded Confirmed Type Furosemide [Lasix] 40 mg PO BID 08/21/13 11/25/17 History Ipratropium/Albuterol Sulfate 1 puff INHALATION RT-QID PRN 08/21/13 11/25/17 History [Combivent Respimat Inhaler] Lisinopril [Zestril] 2.5 mg PO BID 08/21/13 11/25/17 History Spironolactone [Aldactone] 25 mg PO DAILY 08/21/13 11/25/17 History Insulin Detemir [Levemir Flextouch] 28 units SQ HS 12/09/15 11/25/17 History glipiZIDE [Glucotrol] 10 mg PO DAILY 12/09/15 11/25/17 History Fluticasone/Vilanterol [Breo 1 puff INHALATION RT-DAILY 11/20/16 11/25/17 History Ellipta 200-25 Mcg INH] Lipase/Protease/Amylase [Creon Dr 1 cap PO TID 11/20/16 11/25/17 History 36,000 Units Capsule] Albuterol Nebulized [Ventolin 2.5 mg INHALATION RT-QID #0 11/21/16 11/25/17 Rx Nebulized] INSULIN LISPRO (humaLOG) [humaLOG] See Protocol SQ ACHS 09/17/17 11/25/17 History Atorvastatin [Lipitor] 20 mg PO DAILY 11/25/17 11/25/17 History Budesonide/Formoterol Fumarate 2 puff INHALATION BID 11/25/17 11/25/17 History [Symbicort 160-4.5 Mcg Inhaler] Carvedilol [Coreg] 3.125 mg PO BID 11/25/17 11/25/17 History Metoprolol Succinate [Toprol XL] 25 mg PO DAILY 11/25/17 11/25/17 History metFORMIN HCL [Glucophage] 500 mg PO BID 11/25/17 11/25/17 History Gabapentin [Neurontin] 300 mg PO BID 11/26/17 11/26/17 History Allergies Allergy/AdvReac Type Severity Reaction Status Date / Time meperidine HCl [From Demerol] Allergy Severe Rapid Verified 11/25/17 14:56 Heart Rate/VOMITING ibuprofen [From Motrin] AdvReac Vomiting Verified 11/25/17 14:56 Physical Exam Vitals: Vital Signs Temp Pulse Pulse Resp BP BP Pulse Ox 11/26/17 08:46 108 H 11/26/17 08:40 100 11/26/17 08:35 98 11/26/17 08:25 102 H 11/26/17 08:00 94.5 F L 81 20 109/55 97 11/26/17 03:30 97.1 F L 84 20 105/66 97 11/26/17 00:15 96.9 F L 78 22 127/61 99 11/25/17 22:43 97.0 F L 74 24 139/58 11/25/17 22:20 97.0 F L 74 24 139/58 98 11/25/17 22:14 98.3 F 62 18 133/80 97 11/25/17 20:32 93 11/25/17 20:25 100 11/25/17 19:59 67 18 139/80 97 11/25/17 17:59 20 11/25/17 17:55 99 11/25/17 17:20 102 H 11/25/17 17:07 96 18 144/82 100 11/25/17 17:06 89 11/25/17 14:52 98.8 F 58 L 22 136/80 99 Intake and Output 11/25/17 11/26/17 11/26/17 22:59 06:59 14:59 Intake Total 68.172 1.533 Balance 68.172 1.533 Intake: Intake, IV Titration 68.172 1.533 Amount Insulin Regular 100 unit 68.172 1.533 In Sodium Chloride 0.9% 100 ml @ Titrate IV .Q0M [facility] Rx#:[id number] Other: # Voids 1 Weight 60.8 kg 60.8 kg PHYSICAL EXAMINATION: GENERAL: 57-year-old gentleman in no acute distress at the time of my examination HEENT: Head is atraumatic, normocephalic. Pupils equal, round. Sclera anicteric. Conjunctiva are clear. Mucous membranes of the mouth are moist. Neck is supple. There is elevated jugular venous pressure. No carotid bruit is heard. HEART EXAMINATION: R S1 and S2 systolic murmur is heard. CHEST EXAMINATION: Lungs reveal diminished air entry bilaterally with rales to the bases, scattered coarse wheezes throughout. ABDOMEN: Soft, nontender. Bowel sounds are heard. No organomegaly noted. EXTREMITIES:[ 2+ peripheral pulses with 2+ evidence of peripheral edema NEUROLOGIC patient is awake, alert and oriented X3 . Results 11/26/17 03:11 11/26/17 03:11 Cardiac Enzymes 11/25/17 11/25/17 11/25/17 Range/Units 15:33 15:33 22:25 AST 29 (17-59) U/L CK-MB (CK-2) 2.1 1.9 (0.0-2.4) ng/mL Troponin I 0.039 H* 0.046 H* (0.000-0.034) ng/mL 11/26/17 Range/Units 03:11 AST (17-59) U/L CK-MB (CK-2) 1.9 (0.0-2.4) ng/mL Troponin I 0.037 H* (0.000-0.034) ng/mL Coagulation 11/25/17 Range/Units 15:33 PT 11.4 (9.0-12.0) sec APTT 25.7 (22.0-30.0) sec Lipids 11/26/17 Range/Units 03:11 Triglycerides 40 (<150) mg/dL Cholesterol 138 (<200) mg/dL HDL Cholesterol 77 H (40-60) mg/dL CBC 11/25/17 11/26/17 Range/Units 15:33 03:11 WBC 4.5 2.4 L (3.8-10.6) k/uL RBC 5.02 4.68 (4.30-5.90) m/uL Hgb 15.3 14.1 (13.0-17.5) gm/dL Hct 47.7 44.2 (39.0-53.0) % Plt Count 148 L 143 L (150-450) k/uL Comprehensive Metabolic Panel 11/25/17 11/26/17 Range/Units 15:33 03:11 Sodium 130 L 135 L (137-145) mmol/L Potassium 5.1 3.9 (3.5-5.1) mmol/L Chloride 94 L 100 (98-107) mmol/L Carbon Dioxide 24 25 (22-30) mmol/L BUN 17 23 H (9-20) mg/dL Creatinine 1.03 1.06 (0.66-1.25) mg/dL Glucose 422 H 213 H (74-99) mg/dL Calcium 9.1 8.7 (8.4-10.2) mg/dL AST 29 (17-59) U/L ALT 32 (21-72) U/L Alkaline Phosphatase 108 (38-126) U/L Total Protein 6.6 (6.3-8.2) g/dL Albumin 4.2 (3.5-5.0) g/dL Current Medications Generic Name Dose Route Start Last Admin Trade Name Freq PRN Reason Stop Dose Admin Hydrocodone Bitart/Acetaminophen 1 each 11/25/17 23:07 [place] 5-325 PO Q6HR PRN Moderate Pain Albuterol/Ipratropium 3 ml 11/25/17 20:00 11/26/17 08:25 Duoneb 0.5 Mg-3 Mg/3 Ml Soln INHALATION 3 ml RT-QID JOSY Administration Albuterol/Ipratropium 3 ml 11/25/17 23:04 Duoneb 0.5 Mg-3 Mg/3 Ml Soln INHALATION RT-TID PRN Shortness Of Breath Or Wheezing Lipase/Protease/Amylase 7 each 11/26/17 07:30 11/26/17 06:[address] 5,000 Units Capsule PO Not Given TID-W/MEALS JOSY Aspirin 325 mg 11/26/17 09:00 11/26/17 08:15 Aspirin PO 325 mg DAILY JOSY Administration Atorvastatin Calcium 20 mg 11/26/17 09:00 11/26/17 08:15 Lipitor PO 20 mg DAILY JOSY Administration Budesonide 1 mg 11/26/17 08:00 11/26/17 08:25 Pulmicort INHALATION 1 mg RT-BID JOSY Administration Carvedilol 3.125 mg 11/26/17 07:30 11/26/17 06:23 Coreg PO 3.125 mg BID-W/MEALS JOSY Administration Ceftriaxone Sodium 1,000 mg 11/25/17 23:15 11/26/17 08:16 Rocephin IVP 1,000 mg Q24HR JOSY Administration Formoterol Fumarate 20 mcg 11/26/17 08:00 11/26/17 08:25 Perforomist INHALATION 20 mcg RT-BID JOSY Administration Furosemide 40 mg 11/26/17 06:00 11/26/17 08:16 Lasix IV 40 mg Q12HR JOSY Administration Glipizide 10 mg 11/26/17 09:00 11/26/17 08:15 Glucotrol PO Not Given DAILY JOSY Heparin Sodium (Porcine) 5,000 unit 11/25/17 23:15 11/26/17 08:16 Heparin SQ 5,000 unit Q12HR JOSY Administration Insulin Human Regular 100 unit 101 mls @ 0 mls/hr 11/25/17 23:30 11/26/17 09: 05 / Sodium Chloride IV 2.5 units/hr .Q0M JOSY 2.52 mls/hr Titration Protocol Titrate Insulin Aspart 8 unit 11/26/17 07:30 11/26/17 07:10 Novolog 0.13 unit/kg (8 unit) 8 unit SQ Administration AC-TID JOSY Lisinopril 2.5 mg 11/26/17 09:00 11/26/17 08:15 Zestril PO 2.5 mg BID JOSY Administration Lorazepam 0.5 mg 11/25/17 23:07 Ativan PO Q4HR PRN Anxiety Metformin HCl 500 mg 11/26/17 07:30 11/26/17 07:10 Glucophage PO Not Given BID-W/MEALS [facility] Methylprednisolone Sodium Succinate 60 mg 11/25/17 18:00 11/26/17 06:21 Solu-Medrol IV 60 mg Q6HR JOSY Administration Metoprolol Succinate 25 mg 11/26/17 09:00 11/26/17 08:15 Toprol Xl PO 25 mg DAILY JOSY Administration Miscellaneous Information 1 each 11/25/17 21:16 Magnesium Per Protocol MISCELLANE DAILY PRN Per Protocol Protocol Miscellaneous Information 1 each 11/25/17 21:16 Potassium Per Protocol MISCELLANE DAILY PRN Per Protocol Morphine Sulfate 6 mg 11/26/17 06:26 11/26/17 08:12 Morphine Oral Sully 2mg/Ml PO 6 mg Q4HR PRN Administration Moderate Pain Nicotine 1 patch 11/26/17 09:00 11/26/17 08:17 Habitrol 21mg/24hr Patch TRANSDERM Not Given DAILY JOSY Nitroglycerin 0.4 mg 11/25/17 16:22 Nitrostat SUBLINGUAL Q5M PRN Chest Pain Pantoprazole Sodium 40 mg 11/25/17 23:15 11/26/17 08:15 Protonix IVP 40 mg BID JOSY Administration Spironolactone 25 mg 11/26/17 09:00 11/26/17 08:15 Aldactone PO 25 mg DAILY JOSY Administration Temazepam 15 mg 11/25/17 23:07 Restoril PO HS PRN Insomnia Intake and Output 11/25/17 11/26/17 11/26/17 22:59 06:59 14:59 Intake Total 68.172 1.533 Balance 68.172 1.533 Intake: Intake, IV Titration 68.172 1.533 Amount Insulin Regular 100 unit 68.172 1.533 In Sodium Chloride 0.9% 100 ml @ Titrate IV .Q0M [facility] Rx#:[id number] Other: # Voids 1 Weight 60.8 kg 60.8 kg 11/26/17 03:11 11/26/17 03:11 EKG Interpretations (text) EKG shows normal sinus rhythm with frequent PVCs, left anterior fascicular block , nonspecific ST-T wave changes. Assessment and Plan Plan: Assessment and plan #1 acute on chronic hypoxic respiratory failure secondary to systolic congestive heart failure acute on chronic and COPD exacerbation, possible tracheobronchitis. #2 nonischemic cardio myopathy with prior AICD implantation #3 history of alcoholism #4 nicotine dependence #5 COPD #6 diabetes #7 hypertension #8 hyperlipidemia #9 chronic pancreatitis Plan We will obtain a repeat echocardiogram with Doppler study, the most recent echo we have is from 2015 revealed an ejection fraction at that time of 45-50%. We' ll continue the patient on IV Lasix 40 mg every 12 hours. Decrease his aspirin 81 mg daily, continue Coreg, Lipitor, lisinopril and Aldactone. Continue to monitor intake and output along with daily weights and daily lytes BUN and creatinine. DNP note has been reviewed, I agree with a documented findings and plan of care. Patient was seen and examined.
[2017-11-26 11:05] LABS: Glucose,Whole Blood 64 mg/dL (75-99)
[2017-11-26 11:47] LABS: Glucose,Whole Blood 76 mg/dL (75-99)
[2017-11-26 12:22] LABS: Glucose,Whole Blood 79 mg/dL (75-99)
[2017-11-26 13:17] LABS: Hemoglobin A1C 11.6 % (4.0-6.0)
[2017-11-26] MEDS: GABAPENTIN 300 MG CAP PO SCH ×2 (13:38→21:08)
[2017-11-26 13:39] LABS: Glucose,Whole Blood 234 mg/dL (75-99)
[2017-11-26 16:34] LABS: Glucose,Whole Blood 357 mg/dL (75-99)
--- NOTE | 2017-11-26 17:39 | PN ---
PROGRESS NOTE DATE OF SERVICE: 11/26/2017 I am covering for Dr. Lind. This 57-year-old gentleman who was admitted with shortness of breath also had chronic hypoxic respiratory failure. Patient also had possibly a combination of COPD and CHF. After diuretics the patient is feeling slightly better. Troponin indeterminate. Patient also complaining of severe abdominal pain. The patient also had a possible chronic pancreatitis with significant pancreatic residual defects, also. Abdominal pelvis CAT scan noted. The blood sugar has been extremely brittle and significantly elevated. PAST MEDICAL HISTORY: Reviewed. REVIEW OF SYSTEMS: CARDIOVASCULAR SYSTEM: As mentioned. RESPIRATORY: As mentioned. GI: No nausea. : No dysuria. NERVOUS SYSTEM: No numbness or weakness. CURRENT MEDICATIONS: Reviewed and include: 1. Orange 5 mg q.6h p.r.n. 2. DuoNeb q.i.d. and p.r.n. 3. Xanax p.r.n. 4. Aspirin 81 mg p.o. 5. Lipitor 20 mg. 6. Pulmicort 1 mg. 7. Coreg 3.125 b.i.d. 8. Rocephin 1 g daily. 9. Perforomist 20 mcg b.i.d. 10.Lasix 40 mg b.i.d. 11.Neurontin. 12.Heparin. 13.Ativan. 14.Solu-Medrol 60 IV q.6h. 15.Lipitor. 16.Restoril. PHYSICAL EXAM: Patient is alert, oriented x3. Pulse is 85, blood pressure is 103/52, respirations 16, temperature normal, pulse ox 97 percent on 4 L. HEENT: Conjunctivae normal. Oral mucosa moist. NECK: No jugular venous distention. No carotid bruit. No lymph node enlargement. CARDIOVASCULAR: S1, S2. RESPIRATORY: Breath sounds diminished in the bases. A few scattered rhonchi and crackles. ABDOMEN: Soft. Mild diffuse discomfort. No mass palpable. No guarding. No rigidity. LEGS: No edema. NERVOUS SYSTEM: No focal deficits. LABS: Glucose 357. WBC 2.4, sodium is 135, troponin is noted. ASSESSMENT: 1. Shortness of breath, possibly multifactorial including congestive heart failure acute exacerbation with acute on chronic systolic dysfunction, ejection fraction 40- 45 percent as well as chronic obstructive pulmonary disease acute exacerbation. 2. Chronic hypoxic respiratory failure. 3. Troponin 0.039 indeterminate, rule out acute non ST-segment elevation myocardial infarction. 4. Diabetes mellitus type 2, uncontrolled with hyperglycemia. 5. Hyponatremia. 6. Abdominal pain possible acute on chronic pancreatitis. 7. Remote history of EtOH. 8. History of nicotine dependence. 9. History of coronary artery disease. 10.History of hyperlipidemia. 11.Hypertension. 12.History of renal disease. 13.History of degenerative joint disease. 14.History of AICD. 15.History of permanent pacemaker. RECOMMENDATIONS AND DISCUSSION: I recommend to continue current medications, monitoring and continue with symptomatic treatment. Clinically, the patient has multiple complex medical issues as listed above. I recommend to continue the current medications and taper the steroids. Continue with diuresis. Monitor fluid and electrolytes balance closely. Closely follow with multiple consultants. Prognosis guarded because of multiple complex medical issues and further recommendations to follow. CHIARA / DEANDRE: [id number] /
[2017-11-26 18:09] LABS: Glucose,Whole Blood 315 mg/dL (75-99)
[2017-11-26 20:01] LABS: Glucose,Whole Blood 110 mg/dL (75-99)
[2017-11-26] MEDS: INSULIN REGULAR 100 UNIT in SODIUM CHLORIDE 0.9% 100 ML IV SCH (20:02)
[2017-11-26 21:15] LABS: Glucose,Whole Blood 65 mg/dL (75-99)
[2017-11-26 21:30] LABS: Glucose,Whole Blood 70 mg/dL (75-99)
[2017-11-26 22:00] LABS: Glucose,Whole Blood 141 mg/dL (75-99)
[2017-11-26] MEDS: methylPREDNISolone SOD SUCCI 40 MG/ML 1 ML VIAL IV SCH (23:09)
[2017-11-27 00:09] LABS: Glucose,Whole Blood 197 mg/dL (75-99)
[2017-11-27 02:02] LABS: Glucose,Whole Blood 234 mg/dL (75-99)
[2017-11-27 04:03] LABS: Glucose,Whole Blood 229 mg/dL (75-99)
[2017-11-27 05:59] LABS: Glucose,Whole Blood 215 mg/dL (75-99)
[2017-11-27 06:23] LABS: Basophils % (A) 0 %; Eosinophils % (A) 0 %; HCT 37.8 % (39.0-53.0); HGB 12.1 gm/dL (13.0-17.5); Lymphocytes # (A) 0.6 k/uL (1.0-4.8); Lymphocytes % (A) 8 %; MCH 30.5 pg (25.0-35.0); MCV 95.2 fL (80.0-100.0); Mean Platelet Volume 7.1; Monocytes # (A) 0.5 k/uL (0-1.0); Monocytes % (A) 6 %; Neutrophils # (A) 6.7 k/uL (1.3-7.7); Neutrophils % (A) 85 %; Platelet Count 140 k/uL (150-450); RBC 3.97 m/uL (4.30-5.90); RDW 14.8 % (11.5-15.5); WBC 7.8 k/uL (3.8-10.6)
[2017-11-27 06:26] LABS: Calcium 8.7 mg/dL (8.4-10.2); Potassium 4.2 mmol/L (3.5-5.1)
[2017-11-27] MEDS: MORPHINE ORAL SOLN 10 MG/5 ML CUP PO PRN (06:54)
[2017-11-27] MEDS: CARVEDILOL 3.125 MG TAB PO SCH (06:56)
[2017-11-27] MEDS: PROTEASE PO SCH ×2 (06:56→12:20)
[2017-11-27] MEDS: LIPASE PO SCH ×2 (06:56→12:20)
[2017-11-27] MEDS: AMYLASE PO SCH ×2 (06:56→12:20)
[2017-11-27] MEDS: INSULIN ASPART 100 UNIT/ML 1 ML 10 ML VIAL SQ SCH ×2 (07:02→12:19)
[2017-11-27] MEDS: BUDESONIDE 1 MG/2 ML NEBU INHALATION SCH (07:35)
[2017-11-27] MEDS: IPRATROPIUM-ALBUTEROL 3 ML NEB INHALATION SCH ×2 (07:35→11:12)
[2017-11-27] MEDS: FORMOTEROL FUMARATE 20 MCG/2 ML NEBU INHALATION SCH (07:35)
[2017-11-27] MEDS: SPIRONOLACTONE 25 MG TAB PO SCH (08:13)
[2017-11-27] MEDS: METOPROLOL SUCCINATE (ER) 25 MG TAB.ER.24H PO SCH (08:13)
[2017-11-27] MEDS: ATORVASTATIN 20 MG TAB PO SCH (08:13)
[2017-11-27] MEDS: LISINOPRIL 2.5 MG TAB PO SCH (08:13)
[2017-11-27] MEDS: GABAPENTIN 300 MG CAP PO SCH (08:13)
[2017-11-27] MEDS: FUROSEMIDE 10 MG/ML 4 ML VIAL IV SCH (08:14)
[2017-11-27] MEDS: PANTOPRAZOLE 40 MG/10 ML VIAL IVP SCH (08:15)
[2017-11-27] MEDS: cefTRIAXone IN SWFI 1,000 MG/10 ML SYRINGE IVP SCH (08:15)
[2017-11-27] MEDS: HEPARIN SODIUM,PORCINE 5,000 UNIT/ML 1 ML VIAL SQ SCH (08:15)
[2017-11-27] MEDS: methylPREDNISolone SOD SUCCI 40 MG/ML 1 ML VIAL IV SCH (08:15)
[2017-11-27 08:18] LABS: Glucose,Whole Blood 281 mg/dL (75-99)
[2017-11-27] MEDS ORDERED: ASPIRIN 81 MG PO SCH (09:00)
[2017-11-27] MEDS: NICOTINE 21MG/24HR PATCH TRANSDERM SCH (09:24)
[2017-11-27 10:14] LABS: Glucose,Whole Blood 238 mg/dL (75-99)
[2017-11-27 10:31] VITALS: RESP 20
--- NOTE | 2017-11-27 11:26 | P.PN ---
Subjective Progress Note Date: 11/27/17 Principal diagnosis: Acute on chronic chronic hypoxic respiratory failure secondary to acute exacerbation of COPD and systolic congestive heart failure. This is a very pleasant 57-year-old gentleman follows with Dr. Lind as his primary care physician. He has a history of coronary artery disease, cardiomyopathy last ejection fraction 45% status post AICD placement, alcoholism , pancreatitis, diabetes mellitus, hypertension, hyperlipidemia, renal disease. He also has a history of chronic tobacco dependence with severe oxygen dependent chronic obstructive pulmonary disease and follows with Dr. Khanna in our office for the same. He is maintained on Breo and Combivent. He was seen in the office yesterday and was noted to have significant increased swelling in lower extremities, increasing shortness of breath, congestion, abdominal discomfort. He was referred to the emergency room for evaluation. Chest x-ray revealed evidence of chronic obstructive pulmonary disease and chronic bronchitis but no acute pulmonary process. Computed tomography scan of the abdomen revealed cystic changes and calcification in the pancreas consistent with chronic pancreatitis and multiple pseudocysts. Stable compared to previous. There was new mild ascites noted. Moderate cardiomegaly. White count 2.4. Hemoglobin 14.1. Creatinine 1.06. Troponin 0.039, 0.046, 0.037. Pro BNP 22,200. He is seen today in consultation on the selective care unit. Currently he is awake and alert in no acute distress. He is dyspneic with minimal exertion however. He has a dry nonproductive cough. He is maintaining O2 saturations in the 90s on 4 L/m per nasal cannula. He has been afebrile. Hemodynamically stable. 1-2+ lower extremity edema which she states is improved compared to yesterday. He had been initiated on Lasix 40 mg IV push every 12 hours. Bronchodilators, IV Solu-Medrol. Patient was reevaluated today on 11/27/2017, patient is stating that he is feeling much better, and he would like to go home. Pulmonary-aragon, I believe the patient could be cleared for discharge, however he will need a cardiac clearance to be discharged home. Patient is known to have nonischemic cardiomyopathy with previous AICD CD placement, and that is being addressed by cardiology on the case. Pulmonary-aragon, patient could be placed on oral prednisone burst and taper, bronchodilators in the form of albuterol Atrovent and Symbicort, and we can easily cleared for discharge if cleared for discharge by cardiology. Labs were reviewed today. Chest x-ray on admission was reviewed and mostly had chronic changes. Objective - Vital Signs Vital signs: Vital Signs Temp 96.8 F L 11/27/17 08:00 Pulse 83 11/27/17 11:12 Resp 20 11/27/17 08:00 BP 90/58 11/27/17 08:00 Pulse Ox 97 11/27/17 08:00 Intake & Output 11/26/17 11/27/17 11/27/17 18:59 06:59 18:59 Intake Total 1182.828 16.434 14.090 Balance 1182.828 16.434 14.090 Weight 60.8 kg Intake: IV 160 .9 160 Intake, IV Titration 32.828 16.434 14.090 Amount Insulin Regular 100 unit 32.828 16.434 14.090 In Sodium Chloride 0.9% 100 ml @ Titrate IV .Q0M [facility] Rx#:[id number] Oral 990 - Exam - Constitutional General appearance: cooperative, disheveled, mild distress - EENT Eyes: EOMI, PERRLA, poor dentition Ears: bilateral: normal - Neck Neck: normal ROM Carotids: bilateral: upstroke normal Thyroid: bilateral: normal size - Respiratory Respiratory: bilateral: diminished, rales, nor rhonchi no wheezes noted. - Cardiovascular Rhythm: regular Heart sounds: normal: S1, S2 Abnormal Heart Sounds: systolic murmur - Gastrointestinal General gastrointestinal: normal bowel sounds - Integumentary Integumentary: normal turgor - Neurologic Neurologic: CNII-XII intact - Musculoskeletal Musculoskeletal: generalized weakness - Psychiatric Psychiatric: A&O x's 3, appropriate affect, intact judgment & insight - Labs CBC & Chem 7: 11/27/17 05:56 11/27/17 05:56 Labs: Abnormal Lab Results - Last 24 Hours (Table) 11/25/17 11/26/17 11/26/17 Range/Units 22:25 13:36 16:04 RBC (4.30-5.90) m/uL Hgb (13.0-17.5) gm/dL Hct (39.0-53.0) % Plt Count (150-450) k/uL Lymphocytes # (1.0-4.8) k/uL Sodium (137-145) mmol/L Chloride (98-107) mmol/L BUN (9-20) mg/dL Creatinine (0.66-1.25) mg/dL Glucose (74-99) mg/dL POC Glucose (mg/dL) 234 H 357 H (75-99) mg/dL Hemoglobin A1c 11.6 H (4.0-6.0) % 11/26/17 11/26/17 11/26/17 Range/Units 18:07 19:58 21:02 RBC (4.30-5.90) m/uL Hgb (13.0-17.5) gm/dL Hct (39.0-53.0) % Plt Count (150-450) k/uL Lymphocytes # (1.0-4.8) k/uL Sodium (137-145) mmol/L Chloride (98-107) mmol/L BUN (9-20) mg/dL Creatinine (0.66-1.25) mg/dL Glucose (74-99) mg/dL POC Glucose (mg/dL) 315 H 110 H 65 L (75-99) mg/dL Hemoglobin A1c (4.0-6.0) % 11/26/17 11/26/17 11/27/17 Range/Units 21:28 21:58 00:00 RBC (4.30-5.90) m/uL Hgb (13.0-17.5) gm/dL Hct (39.0-53.0) % Plt Count (150-450) k/uL Lymphocytes # (1.0-4.8) k/uL Sodium (137-145) mmol/L Chloride (98-107) mmol/L BUN (9-20) mg/dL Creatinine (0.66-1.25) mg/dL Glucose (74-99) mg/dL POC Glucose (mg/dL) 70 L 141 H 197 H (75-99) mg/dL Hemoglobin A1c (4.0-6.0) % 11/27/17 11/27/17 11/27/17 Range/Units 02:00 04:01 05:56 RBC 3.97 L (4.30-5.90) m/uL Hgb 12.1 L (13.0-17.5) gm/dL Hct 37.8 L (39.0-53.0) % Plt Count 140 L (150-450) k/uL Lymphocytes # 0.6 L (1.0-4.8) k/uL Sodium (137-145) mmol/L Chloride (98-107) mmol/L BUN (9-20) mg/dL Creatinine (0.66-1.25) mg/dL Glucose (74-99) mg/dL POC Glucose (mg/dL) 234 H 229 H (75-99) mg/dL Hemoglobin A1c (4.0-6.0) % 11/27/17 11/27/17 11/27/17 Range/Units 05:56 05:57 08:08 RBC (4.30-5.90) m/uL Hgb (13.0-17.5) gm/dL Hct (39.0-53.0) % Plt Count (150-450) k/uL Lymphocytes # (1.0-4.8) k/uL Sodium 130 L (137-145) mmol/L Chloride 93 L (98-107) mmol/L BUN 37 H (9-20) mg/dL Creatinine 1.27 H (0.66-1.25) mg/dL Glucose 205 H (74-99) mg/dL POC Glucose (mg/dL) 215 H 281 H (75-99) mg/dL Hemoglobin A1c (4.0-6.0) % 11/27/17 Range/Units 10:11 RBC (4.30-5.90) m/uL Hgb (13.0-17.5) gm/dL Hct (39.0-53.0) % Plt Count (150-450) k/uL Lymphocytes # (1.0-4.8) k/uL Sodium (137-145) mmol/L Chloride (98-107) mmol/L BUN (9-20) mg/dL Creatinine (0.66-1.25) mg/dL Glucose (74-99) mg/dL POC Glucose (mg/dL) 238 H (75-99) mg/dL Hemoglobin A1c (4.0-6.0) % Microbiology - Last 24 Hours (Table) 11/25/17 20:08 Urine Culture - Final Urine,Voided Assessment and Plan Assessment: #1 Acute on chronic hypoxic respiratory failure secondary to an acute exacerbation of chronic obstructive pulmonary disease as well as an acute exacerbation of chronic systolic congestive heart failure. #2 Peripheral edema of the lower extremities secondary to above. #3 History of severe nonischemic cardiomyopathy with previous ejection fraction 30%, more recently 45%. Status post AICD placement. #4 History of alcoholism. #5 History of chronic pancreatitis with pseudocysts. #6 Diabetes mellitus with steroid-induced hyperglycemia. #7 Hypertension. #8 Hyperlipidemia. #9 Chronic tobacco dependence. #10 Progressive weight loss secondary to chronic malabsorption Recommendation: Continue present meds can switch the patient to oral prednisone burst and taper over 2 weeks, continue albuterol with Atrovent [place], [place] place him on Symbicort 160/4.52 puffs twice a day, consider discharge planning if the patient is cleared by cardiology. Patient should follow up with one of us on outpatient basis if discharged home today or tomorrow. Time with Patient: Less than 30
[2017-11-27 11:54] LABS: Glucose,Whole Blood 106 mg/dL (75-99)
[2017-11-27 12:59] VITALS: BP 94/58; PULSE 69; TEMP 96.5
--- NOTE | 2017-11-28 08:11 | DS ---
DISCHARGE SUMMARY DATE OF SERVICE: 11/27/2017 FINAL DIAGNOSES: 1. Shortness of breath possibly multifactorial including congestive heart failure acute exacerbation with acute on chronic systolic dysfunction, ejection fraction 40- 45 percent as well as chronic obstructive pulmonary disease acute exacerbation. 2. Chronic hypoxic respiratory failure. 3. Troponin 0.039, indeterminate. 4. Diabetes type 2, uncontrolled with hyperglycemia. 5. Hyponatremia. 6. Abdominal pain with possible acute on chronic pancreatitis. 7. Remote history of ETOH. 8. History of nicotine dependence. 9. History of coronary artery disease. 10.History of hyperlipidemia. 11.History of hypertension. 12.History of renal disease. 13.History of degenerative joint disease. 14.History of AICD. 15.History of permanent pacemaker. DISCHARGE DISPOSITION: The patient will be discharged in stable condition with guarded prognosis. Total time taken 35 minutes. HISTORY OF PRESENT ILLNESS: This 57-year-old gentleman with a past medical history of multiple medical problems being followed by Dr. Lind in the outpatient setting was admitted with shortness of breath. The patient was treated in conjunction with Cardiology and Pulmonology. Medications were continued. Patient improved significantly. Patient is extremely keen on going home. The patient being discharged in stable condition. Guarded prognosis. On exam, vitals are stable. CARDIOVASCULAR: S1, S2. Respiratory: A few scattered rhonchi. Abdomen is soft. Nervous system: No focal deficits. DISCHARGE ADVICE AND MEDICATIONS: 1. Diet is cardiac diet. 2. Activity limited until followup. 3. Follow up with Dr. Lind. 4. Follow with Dr. Steiner as recommended. 5. Follow with the investigations chief as recommended. MEDICATIONS ARE: 1. Lipitor 20 mg p.o. daily. 2. Symbicort 2 puffs b.i.d. 3. Coreg 3.125 mg b.i.d. 4. Breo Ellipta 1 puff daily. 5. Lasix 40 mg p.o. b.i.d. 6. Neurontin 300 mg p.o. b.i.d. 7. Levemir 20 units subcu q.h.s. 8. Humalog scale. 9. Creon 1 capsule t.i.d. 10.Zestril 2.5 mg b.i.d. 11.Toprol-XL 25 mg p.o. daily. 12.Aldactone 25 mg p.o. daily. 13.Aspirin 81 mg p.o. daily. 14.Ceftin 500 mg p.o. b.i.d. for 3 days. 15.DuoNeb q.i.d. and p.r.n. 16.Habitrol 21 daily. No smoking. Once again, the patient is being discharged in stable condition with guarded prognosis. MMODL / IJN: [id number] /
--- NOTE | 2017-11-28 15:21 | ECHOF ---
Referral Reason:chf MEASUREMENTS -------- HEIGHT: 175.3 cm WEIGHT: 60.8 kg BP: 105/66 IVSd: 1.2 cm (0.6 - 1.1) LVIDd: 5.9 cm (3.9 - 5.3) LVPWd: 1.2 cm (0.6 - 1.1) EDV(Teich): 173 ml IVSs: 1.3 cm LVIDs: 5.3 cm LVPWs: 1.4 cm %IVS Thck: 15 % ESV(Teich): 133 ml EF(Teich): 23 % %FS: 11 % SV(Teich): 41 ml LA Diam: 4.4 cm (2.7 - 3.8) RVIDd: 3.3 cm (< 3.3) IVC: 22.36 mm LALs A4C: 6.6 cm LAAs A4C: 31.2 cm LAESV A-L A4C: 124 ml LAESV MOD A4C: 118 ml LALs A2C: 6.0 cm LAAs A2C: 25.3 cm LAESV A-L A2C: 90 ml LAESV MOD A2C: 89 ml LAESV(A-L): 111 ml LAESV Index (A-L): 63.91 ml/m Ao Diam: 3.1 cm (2.0 - 3.7) AV Cusp: 2.4 cm (1.5 - 2.6) EPSS: 1.7 cm MV E Niraj: 0.72 m/s MV DecT: 181 ms MV Dec [place]: 4.0 m/s MV A Niraj: 0.31 m/s MV E/A Ratio: 2.33 MV PHT: 52 ms AV Vmax: 0.84 m/s AV maxP.85 mmHg TR Vmax: 2.36 m/s TR maxP.32 mmHg RAP: 5.00 mmHg RVSP: 27.32 mmHg MV EF SLOPE: 133.74 mm/s (70 - 150) MV EXCURSION: 20.13 mm (> 18.000) FINDINGS -------- A-V paced rhythm. This was a technically excellent study. The left ventricular size is normal. There is borderline concentric left ventricular hypertrophy. Overall left ventricular systolic function is severely impaired with, an EF < 20%. The right ventricle is mildly enlarged. LA is severely dilated >40 ml/m2 The right atrium is normal in size. The aortic valve is trileaflet and appears structurally normal. There is trace to mild mitral regurgitation. Mild tricuspid regurgitation present. Right ventricular systolic pressure is normal at < 35 mmHg. There is no pulmonic regurgitation present. The aortic root size is normal. Normal inferior vena cava with normal inspiratory collapse consistent with estimated right atrial pre ssure of 5 mmHg. The inferior vena cava is mildly dilated. There is no pericardial effusion. CONCLUSIONS -------- 1. A-V paced rhythm. 2. This was a technically excellent study. 3. The left ventricular size is normal. 4. There is borderline concentric left ventricular hypertrophy. 5. Overall left ventricular systolic function is severely impaired with, an EF < 20%. 6. The right ventricle is mildly enlarged. 7. LA is severely dilated >40 ml/m2 8. The right atrium is normal in size. 9. The aortic valve is trileaflet and appears structurally normal. 10. There is trace to mild mitral regurgitation. 11. Mild tricuspid regurgitation present. 12. Right ventricular systolic pressure is normal at < 35 mmHg. 13. There is no pulmonic regurgitation present. 14. The aortic root size is normal. 15. Normal inferior vena cava with normal inspiratory collapse consistent with estimated right atrial pressure of 5 mmHg. 16. The inferior vena cava is mildly dilated. 17. There is no pericardial effusion. WRAP KNITTING MACHINE OPERATOR: Clary España RDCS
== END 2017-11-27 14:07 | disposition home or self-care (01) | DRG 291 ==
LOC: EC 14:50 → 6SEL 16:22
PROVIDERS: ADMIT Family Medicine; ATTEND Family Medicine
DX: I11.0 Hypertensive heart disease with heart failure (principal); J96.21 Acute and chronic respiratory failure with hypoxia; E87.1 Hypo-osmolality and hyponatremia; J44.1 Chronic obstructive pulmonary disease with (acute) exacerbation; K90.9 Intestinal malabsorption, unspecified; K86.1 Other chronic pancreatitis; I50.23 Acute on chronic systolic (congestive) heart failure; I42.6 Alcoholic cardiomyopathy; E78.5 Hyperlipidemia, unspecified; I25.10 Atherosclerotic heart disease of native coronary artery without angina pectoris; I44.4 Left anterior fascicular block; E09.65 Drug or chemical induced diabetes mellitus with hyperglycemia; T38.0X5A Adverse effect of glucocorticoids and synthetic analogues, initial encounter; Z79.82 Long term (current) use of aspirin; Z79.899 Other long term (current) drug therapy; Z79.51 Long term (current) use of inhaled steroids; Z79.4 Long term (current) use of insulin; Z95.810 Presence of automatic (implantable) cardiac defibrillator; Z99.81 Dependence on supplemental oxygen; Z87.891 Personal history of nicotine dependence; Z82.49 Family history of ischemic heart disease and other diseases of the circulatory system; Z82.5 Family history of asthma and other chronic lower respiratory diseases; Z83.3 Family history of diabetes mellitus; Z88.6 Allergy status to analgesic agent; Z88.5 Allergy status to narcotic agent
CPT/HCPCS: 36415; 71046; 74177; 80048; 80053; 80061; 81001; 82009; 82550; 82553; 83036; 83690; 83735; 83880; 84100; 84484; 85025; 85610; 85730; 87086; 93005; 93306; 94640; 94644; 94760; 96374; 96375; 99291

== ENCOUNTER → 2017-11-29 | Outpatient (CLI) | payer MEDICARE, OTHER ==
[2017-11-29 14:30] LABS: Basophils % (A) 0 %; Eosinophils # (A) 0.1 k/uL (0-0.7); Eosinophils % (A) 1 %; HCT 47.3 % (39.0-53.0); Lymphocytes % (A) 17 %; MCH 30.5 pg (25.0-35.0); MCHC 32.1 g/dL (31.0-37.0); MCV 95.2 fL (80.0-100.0); Mean Platelet Volume 7.1; Monocytes # (A) 0.6 k/uL (0-1.0); Monocytes % (A) 10 %; Neutrophils # (A) 3.9 k/uL (1.3-7.7); Neutrophils % (A) 69 %; Platelet Count 175 k/uL (150-450); RBC 4.97 m/uL (4.30-5.90); RDW 14.5 % (11.5-15.5); WBC 5.6 k/uL (3.8-10.6)
[2017-11-29 14:41] LABS: HGB 15.2 gm/dL (13.0-17.5)
[2017-11-29 15:04] LABS: Anion Gap 13 mmol/L; Blood Urea Nitrogen 26 mg/dL (9-20); Calcium 9.3 mg/dL (8.4-10.2); Carbon Dioxide 26 mmol/L (22-30); Chloride 92 mmol/L (98-107); Glucose 376 mg/dL (74-99); Potassium 4.8 mmol/L (3.5-5.1); Sodium 131 mmol/L (137-145)
== END | disposition home or self-care (01) ==
LOC: LABWHC1 13:53
PROVIDERS: ATTEND Hospitalist
DX: J44.9 Chronic obstructive pulmonary disease, unspecified (principal); I50.9 Heart failure, unspecified
CPT/HCPCS: 36415; 80048; 85025

== ENCOUNTER → 2018-01-23 | Outpatient (CLI) | payer MEDICARE, OTHER ==
--- NOTE | 2018-01-23 13:57 | US ---
EXAMINATION TYPE: US venous doppler duplex LE RT DATE OF EXAM: 01/23/2018 1:38 PM COMPARISON: US 12/12/14 CLINICAL HISTORY: R22.41 SWELLING RT LEG. SIDE PERFORMED: Right TECHNIQUE: The lower extremity deep venous system is examined utilizing real time linear array sonog zhen with graded compression, doppler sonography and color-flow sonography. VESSELS IMAGED: External Iliac Vein (EIV) Common Femoral Vein Deep Femoral Vein Greater Saphenous Vein * Femoral Vein Popliteal Vein Small Saphenous Vein * Proximal Calf Veins (* superficial vessels) Right Leg: Negative for DVT IMPRESSION: No evidence for DVT at this time.
== END ==
LOC: RADUSWWP 13:00
PROVIDERS: ATTEND Family Medicine
DX: R22.41 Localized swelling, mass and lump, right lower limb (principal)

== ENCOUNTER 2018-03-22 12:07 | Inpatient (IN) | payer MEDICARE, OTHER ==
[2018-03-22] MEDS ORDERED: SODIUM CHLORIDE 0.9% 1,000 ML IV STA (12:42)
--- NOTE | 2018-03-22 12:44 | ED ---
Neuro HPI - General Chief Complaint: Neuro Symptoms/Deficit Stated Complaint: Lt hand numbness, trouble standing Time Seen by Provider: 03/22/18 12:26 Source: patient, RN notes reviewed, old records reviewed Mode of arrival: ambulatory Limitations: no limitations - History of Present Illness Is the patient presenting with stroke symptoms?: Yes Last Known Well Date: 03/21/18 -: days(s) Location: left arm History of same: Yes Place: home Severity: mild Quality: weak, numb, tingling Improves With: none Worsens With: none On Anticoagulants: No Context: gradual onset Associated Symptoms: denies other symptoms Treatments Prior to Arrival: none - Related Data Home Medications: Home Medications Medication Instructions Recorded Confirmed Furosemide [Lasix] 40 mg PO DAILY 08/21/13 03/22/18 Atorvastatin [Lipitor] 40 mg PO DAILY 03/22/18 03/22/18 HYDROcodone/APAP 10-325MG [[place] 1 tab PO Q4HR PRN 03/22/18 03/22/18 10-325] Insulin Degludec [Tresiba 32 unit SQ DAILY 03/22/18 03/22/18 Flextouch U-200] Insulin Lispro [humaLOG Kwikpen] See Protocol SQ ACHS 03/22/18 03/22/18 Pregabalin [Lyrica] 150 mg PO TID 03/22/18 03/22/18 Allergies/Adverse Reactions: Allergies Allergy/AdvReac Type Severity Reaction Status Date / Time meperidine HCl [From Demerol] Allergy Severe Rapid Verified 03/22/18 12:32 Heart Rate/VOMITING ibuprofen [From Motrin] AdvReac Vomiting Verified 03/22/18 12:32 Review of Systems ROS Statement: Those systems with pertinent positive or pertinent negative responses have been documented in the HPI. ROS Other: All systems not noted in ROS Statement are negative. General Exam Limitations: no limitations General appearance: alert, in no apparent distress Head exam: Present: atraumatic, normocephalic, normal inspection Eye exam: Present: normal appearance, PERRL, EOMI. Absent: scleral icterus, conjunctival injection, periorbital swelling ENT exam: Present: normal exam, mucous membranes moist Neck exam: Present: normal inspection. Absent: tenderness, meningismus, lymphadenopathy Respiratory exam: Present: normal lung sounds bilaterally. Absent: respiratory distress, wheezes, rales, rhonchi, stridor Cardiovascular Exam: Present: regular rate, normal rhythm, normal heart sounds. Absent: systolic murmur, diastolic murmur, rubs, gallop, clicks GI/Abdominal exam: Present: soft, normal bowel sounds. Absent: distended, tenderness, guarding, rebound, rigid Extremities exam: Present: normal inspection, full ROM, normal capillary refill. Absent: tenderness, pedal edema, joint swelling, calf tenderness Back exam: Present: normal inspection Neurological exam: Present: alert, oriented X3, CN II-XII intact Psychiatric exam: Present: normal affect, normal mood Skin exam: Present: warm, dry, intact, normal color. Absent: rash Stroke MDM - Lab Data Result diagrams: 03/22/18 12:50 03/22/18 12:50 Lab Results 03/22/18 03/22/18 03/22/18 Range/Units 12:50 12:50 12:50 WBC 5.1 (3.8-10.6) k/uL RBC 4.04 L (4.30-5.90) m/uL Hgb 12.4 L (13.0-17.5) gm/dL Hct 38.2 L (39.0-53.0) % MCV 94.7 (80.0-100.0) fL MCH 30.8 (25.0-35.0) pg MCHC 32.5 (31.0-37.0) g/dL RDW 14.0 (11.5-15.5) % Plt Count 181 (150-450) k/uL Neutrophils % 68 % Lymphocytes % 20 % Monocytes % 7 % Eosinophils % 3 % Basophils % 0 % Neutrophils # 3.5 (1.3-7.7) k/uL Lymphocytes # 1.0 (1.0-4.8) k/uL Monocytes # 0.3 (0-1.0) k/uL Eosinophils # 0.1 (0-0.7) k/uL Basophils # 0.0 (0-0.2) k/uL PT (9.0-12.0) sec INR (<1.2) APTT (22.0-30.0) sec Sodium 132 L (137-145) mmol/L Potassium 5.1 (3.5-5.1) mmol/L Chloride 97 L (98-107) mmol/L Carbon Dioxide 28 (22-30) mmol/L Anion Gap 7 mmol/L BUN 25 H (9-20) mg/dL Creatinine 0.81 (0.66-1.25) mg/dL Est GFR (CKD-EPI)AfAm >90 (>60 ml/min/1.73 sqM) Est GFR (CKD-EPI)NonAf >90 (>60 ml/min/1.73 sqM) Glucose 277 H (74-99) mg/dL Calcium 9.1 (8.4-10.2) mg/dL Phosphorus 4.3 (2.5-4.5) mg/dL Magnesium 2.0 (1.6-2.3) mg/dL Total Bilirubin 0.8 (0.2-1.3) mg/dL AST 57 (17-59) U/L ALT 72 (21-72) U/L Alkaline Phosphatase 176 H (38-126) U/L Total Creatine Kinase 73 (55-170) U/L CK-MB (CK-2) 3.0 H (0.0-2.4) ng/mL CK-MB (CK-2) Rel Index 4.1 Troponin I 0.076 H* (0.000-0.034) ng/mL Total Protein 6.1 L (6.3-8.2) g/dL Albumin 3.6 (3.5-5.0) g/dL Lipase 244 (23-300) U/L 03/22/18 Range/Units 12:50 WBC (3.8-10.6) k/uL RBC (4.30-5.90) m/uL Hgb (13.0-17.5) gm/dL Hct (39.0-53.0) % MCV (80.0-100.0) fL MCH (25.0-35.0) pg MCHC (31.0-37.0) g/dL RDW (11.5-15.5) % Plt Count (150-450) k/uL Neutrophils % % Lymphocytes % % Monocytes % % Eosinophils % % Basophils % % Neutrophils # (1.3-7.7) k/uL Lymphocytes # (1.0-4.8) k/uL Monocytes # (0-1.0) k/uL Eosinophils # (0-0.7) k/uL Basophils # (0-0.2) k/uL PT 11.1 (9.0-12.0) sec INR 1.1 (<1.2) APTT 26.0 (22.0-30.0) sec Sodium (137-145) mmol/L Potassium (3.5-5.1) mmol/L Chloride (98-107) mmol/L Carbon Dioxide (22-30) mmol/L Anion Gap mmol/L BUN (9-20) mg/dL Creatinine (0.66-1.25) mg/dL Est GFR (CKD-EPI)AfAm (>60 ml/min/1.73 sqM) Est GFR (CKD-EPI)NonAf (>60 ml/min/1.73 sqM) Glucose (74-99) mg/dL Calcium (8.4-10.2) mg/dL Phosphorus (2.5-4.5) mg/dL Magnesium (1.6-2.3) mg/dL Total Bilirubin (0.2-1.3) mg/dL AST (17-59) U/L ALT (21-72) U/L Alkaline Phosphatase (38-126) U/L Total Creatine Kinase (55-170) U/L CK-MB (CK-2) (0.0-2.4) ng/mL CK-MB (CK-2) Rel Index Troponin I (0.000-0.034) ng/mL Total Protein (6.3-8.2) g/dL Albumin (3.5-5.0) g/dL Lipase (23-300) U/L - NIH Stroke Scale 1a. Level of Consciousness: (0) alert 1b. LOC Questions: (0) answers correctly 1c. LOC Commands: (0) performs tasks correctly 2. Best Gaze: (0) normal 3. Visual: (0) no visual loss 4. Facial Palsy: (0) normal symmetrical movement 5a. Motor Arm Left: (0) no drift 5b. Motor Arm Right: (0) no drift 6a. Motor Leg Left: (0) no drift 6b. Motor Leg Right: (0) no drift 7. Limb Ataxia: (0) absent 8. Sensory: (0) normal 9. Best Language: (0) no aphasia 10. Dysarthria: (0) normal 11. Extinction/Inattention: (0) no abnormality - Thrombolytic Inclusion/Exclusion Thrombolytic Exclusion Criteria: Symptom Onset > 3 Hours - Medical Decision Making 57 male the ER for evaluation presents today for evaluation regards to tPA. Patient will be admitted for further evaluation by neurology and cardiology regarding acute CVA - Radiology Data Radiology results: report reviewed (CT CTA negative for acute CVA, patient does have significant stenosis of both ICAs), image reviewed - EKG Data -: EKG Interpreted by Me (EKG shows sinus rhythm rate of 91, [place] 134, QRS 120, QTC 474) Past Medical History Past Medical History: Coronary Artery Disease (CAD), Heart Failure, COPD, Diabetes Mellitus, Hyperlipidemia, Hypertension, Renal Disease Additional Past Medical History / Comment(s): PANCREATITIS, O2 DEPENDANT 4 LITERS N/C, arthritis. bone infection L ear, hole in eardrum. History of Any Multi-Drug Resistant Organisms: None Reported Past Surgical History: AICD, Pacemaker Past Anesthesia/Blood Transfusion Reactions: No Reported Reaction Type of Cardiac Device: Permanent Pacemaker, Unknown Device Placement Date:: 2009 Past Psychological History: No Psychological Hx Reported Smoking Status: Current some day smoker Past Alcohol Use History: Occasional Past Drug Use History: None Reported - Past Family History Father Family Medical History: Congestive Heart Failure (CHF), COPD, Diabetes Mellitus Additional Family Medical History / Comment(s): mrsa, gbs, asbestoes exposure/ lings Mother Family Medical History: Diabetes Mellitus, Hypertension Course Vital Signs 03/22/18 03/22/18 03/22/18 12:16 12:47 13:30 Temperature 97.3 F L Pulse Rate 62 88 87 Respiratory 18 20 18 Rate Blood Pressure 135/74 135/91 110/68 O2 Sat by Pulse 99 100 100 Oximetry 03/22/18 14:47 Temperature Pulse Rate 87 Respiratory 18 Rate Blood Pressure 118/79 O2 Sat by Pulse 98 Oximetry - Reevaluation(s) Reevaluation #1: 03/22/18 15:39 Medical record is reviewed including prior EKGs and cardiology evaluations Reevaluation #2: 03/22/18 15:39 Patient has no change or improvement in symptoms Disposition Clinical Impression: Cerebrovascular accident Disposition: ADMITTED IP TO THIS [facility] Condition: Fair Is patient prescribed a controlled substance at d/c from ED?: No Referrals: Yusuf Lind MD [Primary Care Provider] - 1-2 days
[2018-03-22 13:22] LABS: Basophils % (A) 0 %; Eosinophils # (A) 0.1 k/uL (0-0.7); Eosinophils % (A) 3 %; HCT 38.2 % (39.0-53.0); HGB 12.4 gm/dL (13.0-17.5); Lymphocytes % (A) 20 %; MCH 30.8 pg (25.0-35.0); MCHC 32.5 g/dL (31.0-37.0); MCV 94.7 fL (80.0-100.0); Mean Platelet Volume 7.1; Monocytes # (A) 0.3 k/uL (0-1.0); Monocytes % (A) 7 %; Neutrophils # (A) 3.5 k/uL (1.3-7.7); Neutrophils % (A) 68 %; Platelet Count 181 k/uL (150-450); RBC 4.04 m/uL (4.30-5.90); WBC 5.1 k/uL (3.8-10.6)
[2018-03-22] MEDS ORDERED: SODIUM CHLORIDE 0.9% 500 ML 500 ML IV ONE (13:26)
[2018-03-22 13:27] LABS: Albumin 3.6 g/dL (3.5-5.0); Anion Gap 7 mmol/L; Blood Urea Nitrogen 25 mg/dL (9-20); Calcium 9.1 mg/dL (8.4-10.2); Carbon Dioxide 28 mmol/L (22-30); Chloride 97 mmol/L (98-107); Glucose 277 mg/dL (74-99); Lipase 244 U/L (23-300); Sodium 132 mmol/L (137-145); Total Bilirubin 0.8 mg/dL (0.2-1.3); Total Protein 6.1 g/dL (6.3-8.2)
[2018-03-22 13:29] LABS: Potassium 5.1 mmol/L (3.5-5.1)
[2018-03-22 13:30] LABS: ALT 72 U/L (21-72); AST 57 U/L (17-59); Alkaline Phosphatase 176 U/L (38-126); Phosphorus 4.3 mg/dL (2.5-4.5)
[2018-03-22 13:32] LABS: INR 1.1 (<1.2); Prothrombin Time 11.1 sec (9.0-12.0)
--- NOTE | 2018-03-22 13:42 | CT ---
EXAMINATION TYPE: CT brain wo con DATE OF EXAM: 03/22/2018 COMPARISON: May 30, 2015 HISTORY: Left hand/arm numbness. CT DLP: 965.[address] of the brain was performed. The ventricles, basal cisterns and sulci overlying the cerebral convexities demonstrate mild enlargem ent. There is no evidence for intracranial hemorrhage or sulcal effacement. There is decreased attenuation about the periventricular white matter and deep white matter of both c erebral hemispheres, compatible with chronic small vessel ischemia. Differential diagnosis does inclu de demyelination. No mass effects are seen.No midline shift. Osseous calvarium is intact. If symptoms persist consider MRI. IMPRESSION: 1. Age related atrophic and chronic small vessel ischemic change without acute intracranial process s een at this time.
--- NOTE | 2018-03-22 14:04 | CT ---
EXAMINATION TYPE: CT angio head neck DATE OF EXAM: 03/22/2018 COMPARISON: None HISTORY: Left hand/arm numbness CT DLP: 361.3 mGycm CONTRAST: Performed with IV Contrast, patient injected with 65 mL of Isovue 370. Combination Contrast CTA cervical carotids and [place] CTA cervical carotids with 3-D recons truction Contrast CTA of the cervical carotids was performed 3-D reconstruction imaging obtained at a separate workstation. Right carotid system: Mild plaque is seen of the right common carotid artery. There is moderate plaq ue also noted at the carotid bulb and proximal ICA. Estimated diameter reduction of greater than 70- 75%. ECA is patent. Right vertebral artery appears unremarkable. Left carotid system: Mild plaque is seen of the left common carotid artery. There is mild plaque als o noted at the carotid bulb and proximal ICA. Estimated diameter reduction of 50%. ECA is patent. L eft vertebral artery appears unremarkable. Small right-sided pleural effusion noted. IMPRESSION: 1. 70-75% diameter reduction right ICA. 2. 50% diameter reduction left ICA. CTA [place] with 3-D reconstruction Contrast CTA of the ramp[place] was performed 3-D reconstruction imaging obtained at a separate workstation. Vertebrobasilar system as well as intracranial portions of the internal carotid arteries and their ma arshawn tributaries are patent. I do not see evidence for sizable aneurysm or vascular malformation. Pl ease note MRI provides greater sensitivity and specificity. Visualized brain appears grossly unremar kable. IMPRESSION: 1. No siginificant abnormality.
[2018-03-22 14:22] LABS: Troponin I 0.076 ng/mL (0.000-0.034)
[2018-03-22] MEDS ORDERED: ASPIRIN 325 MG TAB PO STA (15:37)
[2018-03-22] MEDS: SODIUM CHLORIDE 0.9% 1,000 ML IV SCH (15:55)
[2018-03-22] MEDS: ASPIRIN 325 MG TAB PO SCH (16:33)
[2018-03-22 17:14] LABS: Glucose,Whole Blood 283 mg/dL (75-99)
[2018-03-22] MEDS ORDERED: HYDROcodone/APAP 10-325MG 1 EACH TAB PO PRN (18:22)
--- NOTE | 2018-03-22 19:27 | P.CNNES ---
History of Present Illness Consult date: 03/22/18 Reason for Consult: Patient admitted with left sided arm numbness and weakness. History of Present Illness: This patient is a 57-year-old right-handed white male who was brought into the emergency room today for evaluation of left hand numbness and weakness. Patient is not a very good historian but states that for the past several days he has been having numbness involving his left hand. Today he was also complaining of weakness and holding things and objects in his left hand due to the feeling of numbness and muscle spasms. The symptoms seem to worsen yesterday and he decided to come into the emergency room today for further evaluation. He was seen in the ER at [facility] and evaluated by Dr. Alfaro. He was outside of the TPA window for intervention and he was recommended further stroke assessment and admission. His NIH stroke scale in the ER also was noted to be 0. He was sent for a computed tomography scan of the brain which revealed age related atrophy and chronic small vessel ischemic changes with no evidence of acute stroke or hemorrhage. Patient states he also was considering possibility that his symptoms were related to his diabetes mellitus. He has been a diabetic for many years. He states his blood sugars have been running elevated recently as high as 500. He is on various treatments for his diabetes but has had a hard time controlling his blood sugars on a regular basis. The patient is not aware of his most recent hemoglobin A1c blood level. He as noted his computed tomography scan of the brain failed to reveal any acute changes. He also underwent CT angiogram of the head and neck which revealed 70-75% stenosis of the right ICA. We are recommending a vascular surgery consultation for further assessment. There was no evidence of any aneurysm. The patient was updated on the results of the CTA angiogram of the head and neck. He states he is not aware of his last serum cholesterol blood level. His stroke risk factors include diabetes and vascular occlusive disease. The patient states he still gets numbness in the left hand but was concerned yesterday that it also involved his left leg. He denies any facial numbness or slurring of his speech during this episode. He has now been admitted and neurology has been consulted for further evaluation and recommendations. Review of Systems Constitutional: Denies chills, Denies fever Eyes: denies blurred vision, denies pain Ears, nose, mouth and throat: Denies headache, Denies sore throat Cardiovascular: Denies chest pain, Denies shortness of breath Respiratory: Denies cough Gastrointestinal: Denies abdominal pain, Denies diarrhea, Denies nausea, Denies vomiting Musculoskeletal: Denies myalgias Integumentary: Denies pruritus, Denies rash Neurological: Reports balance difficulties, Reports paresthesias, Reports sensory deficit, Denies numbness, Denies weakness Psychiatric: Denies anxiety, Denies depression Endocrine: Denies fatigue, Denies weight change Past Medical History Past Medical History: Coronary Artery Disease (CAD), Heart Failure, COPD, Diabetes Mellitus, Hyperlipidemia, Hypertension, Renal Disease Additional Past Medical History / Comment(s): PANCREATITIS, O2 DEPENDANT 4 LITERS N/C, arthritis. bone infection L ear, hole in eardrum. History of Any Multi-Drug Resistant Organisms: None Reported Past Surgical History: AICD, Pacemaker Past Anesthesia/Blood Transfusion Reactions: No Reported Reaction Type of Cardiac Device: Permanent Pacemaker, Unknown Device Placement Date:: 2009 Past Psychological History: No Psychological Hx Reported Smoking Status: Current some day smoker Past Alcohol Use History: Occasional Past Drug Use History: None Reported - Past Family History Father Family Medical History: Congestive Heart Failure (CHF), COPD, Diabetes Mellitus Additional Family Medical History / Comment(s): mrsa, gbs, asbestoes exposure/ lings Mother Family Medical History: Diabetes Mellitus, Hypertension Medications and Allergies Home Medications Medication Instructions Recorded Confirmed Type Furosemide [Lasix] 40 mg PO DAILY 08/21/13 03/22/18 History Atorvastatin [Lipitor] 40 mg PO DAILY 03/22/18 03/22/18 History HYDROcodone/APAP 10-325MG [[place] 1 tab PO Q4HR PRN 03/22/18 03/22/18 History 10-325] Insulin Degludec [Tresiba 32 unit SQ DAILY 03/22/18 03/22/18 History Flextouch U-200] Insulin Lispro [humaLOG Kwikpen] See Protocol SQ ACHS 03/22/18 03/22/18 History Pregabalin [Lyrica] 150 mg PO TID 03/22/18 03/22/18 History Allergies Allergy/AdvReac Type Severity Reaction Status Date / Time meperidine HCl [From Demerol] Allergy Severe Rapid Verified 03/22/18 12:32 Heart Rate/VOMITING ibuprofen [From Motrin] AdvReac Vomiting Verified 03/22/18 12:32 Physical Examination - Vital Signs Vital Signs: Vital Signs Temp Pulse Pulse Resp BP BP Pulse Ox 03/22/18 17:37 59 L 16 115/77 03/22/18 16:37 96.1 F L 85 16 126/76 98 03/22/18 16:28 98.2 F 87 18 108/83 98 03/22/18 15:48 91 18 130/79 99 03/22/18 14:47 87 18 118/79 98 03/22/18 13:30 87 18 110/68 100 03/22/18 12:47 88 20 135/91 100 03/22/18 12:16 97.3 F L 62 18 135/74 99 Intake and Output 03/22/18 03/22/18 03/22/18 06:59 14:59 22:59 Other: Weight 51.256 kg - Constitutional General appearance: average body habitus, cooperative - EENT EENT: PERRL, mucous membranes moist - Respiratory Respiratory: lungs clear, normal breath sounds - Cardiovascular Cardiovascular: regular rate, normal S1, normal S2 Extremities: no peripheral edema bilaterally - Gastrointestinal Gastrointestinal: normoactive bowel sounds - Integumentary Integumentary: normal - Neurologic Cranial nerve examination: PERRL, VFF, V1/V2/V3 grossly intact, face symmetric, intact gag reflex, intact corneal reflex, normal palatal elevation Speech examination: intact Sensorimotor examination: intact Motor examination - right side: 4/5: biceps, triceps, wrist flexion, wrist extension, saturator operator, hip flexors, knee extensors, dorsiflexion, toe extension (EHL) , plantarflexion Motor examination - left side: 4/5: biceps, triceps, wrist flexion, wrist extension, saturator operator, hip flexors, knee extensors, dorsiflexion, toe extension (EHL) , plantarflexion Detailed sensory examination: intact Reflex and gait examination: intact Reflexes: 1+: ankle, bicep, knee, tricep - Musculoskeletal Musculoskeletal: no pain - Psychiatric Psychiatric: mood/affect appropriate, cooperative Results - Laboratory Findings CBC and BMP: 03/22/18 12:50 03/22/18 12:50 Abnormal Lab Findings: Abnormal Labs 03/22/18 03/22/18 03/22/18 12:50 12:50 12:50 RBC 4.04 L Hgb 12.4 L Hct 38.2 L Sodium 132 L Chloride 97 L BUN 25 H Glucose 277 H POC Glucose (mg/dL) Alkaline Phosphatase 176 H CK-MB (CK-2) 3.0 H Troponin I 0.076 H* Total Protein 6.1 L 03/22/18 17:08 RBC Hgb Hct Sodium Chloride BUN Glucose POC Glucose (mg/dL) 283 H Alkaline Phosphatase CK-MB (CK-2) Troponin I Total Protein Assessment and Plan (1) Acute right arterial ischemic stroke, MCA (middle cerebral artery) Current Visit: Yes Status: Acute Code(s): I63.511 - CEREB INFRC D/T UNSP OCCLS OR STENOS OF RIGHT MID CEREB ART SNOMED Code(s): 213259835 (2) TIA (transient ischemic attack) Current Visit: Yes Status: Acute Code(s): G45.9 - TRANSIENT CEREBRAL ISCHEMIC ATTACK, UNSPECIFIED SNOMED Code(s): 265756897 (3) Diabetic neuropathy Current Visit: Yes Status: Acute Code(s): E11.40 - TYPE 2 DIABETES MELLITUS WITH DIABETIC NEUROPATHY, UNSP SNOMED Code(s): 033430281 (4) Diabetes Current Visit: No Status: Acute Code(s): E11.9 - TYPE 2 DIABETES MELLITUS WITHOUT COMPLICATIONS SNOMED Code(s): 86028476 Plan: This patient is a 57-year-old male admitted with acute onset of left hand and leg numbness that began yesterday. He was brought into the emergency room today for further evaluation. His NIH stroke scale performed by Dr. Alfaro was 0. He underwent a computed tomography scan of the brain which failed to reveal any acute changes. Essentially admitted to hospital for further stroke evaluation today. CAT scan revealed only age-related atrophy but no evidence of acute stroke. Patient did undergo a CTA angiogram of the head and neck which revealed right ICA stenosis of 70-75%. We have recommended a vascular surgery consult for further assessment. We would recommend the patient undergo MRI of the brain for further assessment of possible TIA versus stroke. He also has history of long-standing diabetes mellitus which may also be causing some of his paresthesias. We will check a hemoglobin A1c and his serum cholesterol. Would recommend he be placed on one baby aspirin for secondary stroke prevention. We will continue close neurological follow-up for the patient during this admission. His overall prognosis at this time remains guarded. Time with Patient: Greater than 30
--- NOTE | 2018-03-22 20:57 | P.HPIM ---
History of Present Illness H&P Date: 03/22/18 Chief Complaint: Left upper extremity and left lower extremity numbness. This is a history and physical 57-year-old white male with known history of COPD and intermittent and chronic bronchitis with diabetes who stated yesterday after his Kevin dinner he started having waxing and waning hand and lower extremity numbness with upper extremity numbness. The patient was able to sleep yesterday but woke up with arm tingling numbness. Strength seemed to be appropriate but because of the paresthesias, he came for appropriate hospitalization and evaluation. The patient has multiple comorbidities and because of this he is appropriately admitted by neurology. Troponin is slightly elevated, cardiology was notified but given his overall comorbidities, he'll be observed closely and we'll rule out myocardial infraction. Appreciate neurology consult. The patient has MRI, EEG and echocardiogram ordered for tomorrow. Review of Systems Constitutional: Denies chills, Denies fever Eyes: denies blurred vision, denies pain Ears, nose, mouth and throat: Denies headache, Denies sore throat Cardiovascular: Denies chest pain, Denies shortness of breath Respiratory: Denies cough Gastrointestinal: Denies abdominal pain, Denies diarrhea, Denies nausea, Denies vomiting Neurological: Reports numbness, Reports paresthesias, Reports tingling, Denies change in speech, Denies confusion, Denies convulsions, Denies double vision, Denies gait dysfunction, Denies weakness Psychiatric: Denies anxiety, Denies depression Endocrine: Denies fatigue, Denies weight change Past Medical History Past Medical History: Coronary Artery Disease (CAD), Heart Failure, COPD, Diabetes Mellitus, Hyperlipidemia, Hypertension, Renal Disease Additional Past Medical History / Comment(s): PANCREATITIS, O2 DEPENDANT 4 LITERS N/[place], arthritis. bone infection L ear, hole in eardrum. History of Any Multi-Drug Resistant Organisms: None Reported Past Surgical History: AICD, Pacemaker Past Anesthesia/Blood Transfusion Reactions: No Reported Reaction Type of Cardiac Device: Permanent Pacemaker, Unknown Device Placement Date:: 2009 Past Psychological History: No Psychological Hx Reported Smoking Status: Current some day smoker Past Alcohol Use History: Occasional Past Drug Use History: None Reported - Past Family History Father Family Medical History: Congestive Heart Failure (CHF), COPD, Diabetes Mellitus Additional Family Medical History / Comment(s): mrsa, gbs, asbestoes exposure/ lings Mother Family Medical History: Diabetes Mellitus, Hypertension Medications and Allergies Home Medications Medication Instructions Recorded Confirmed Type Furosemide [Lasix] 40 mg PO DAILY 08/21/13 03/22/18 History Atorvastatin [Lipitor] 40 mg PO DAILY 03/22/18 03/22/18 History HYDROcodone/APAP 10-325MG [[place] 1 tab PO Q4HR PRN 03/22/18 03/22/18 History 10-325] Insulin Degludec [Tresiba 32 unit SQ DAILY 03/22/18 03/22/18 History Flextouch U-200] Insulin Lispro [humaLOG Kwikpen] See Protocol SQ ACHS 03/22/18 03/22/18 History Pregabalin [Lyrica] 150 mg PO TID 03/22/18 03/22/18 History Allergies Allergy/AdvReac Type Severity Reaction Status Date / Time meperidine HCl [From Demerol] Allergy Severe Rapid Verified 03/22/18 12:32 Heart Rate/VOMITING ibuprofen [From Motrin] AdvReac Vomiting Verified 03/22/18 12:32 Physical Exam Vitals: Vital Signs Temp Pulse Pulse Resp BP BP Pulse Ox 03/22/18 17:37 59 L 16 115/77 03/22/18 16:37 96.1 F L 85 16 126/76 98 03/22/18 16:28 98.2 F 87 18 108/83 98 03/22/18 15:48 91 18 130/79 99 03/22/18 14:47 87 18 118/79 98 03/22/18 13:30 87 18 110/68 100 03/22/18 12:47 88 20 135/91 100 03/22/18 12:16 97.3 F L 62 18 135/74 99 Intake and Output 03/22/18 03/22/18 03/22/18 06:59 14:59 22:59 Other: Weight 51.256 kg - Constitutional General appearance: thin - Neck Neck: no lymphadenopathy - Respiratory Respiratory: bilateral: CTA - Cardiovascular Rhythm: regular Heart sounds: normal: S1, S2 Abnormal Heart Sounds: no S3 Gallop - Gastrointestinal General gastrointestinal: soft, no tenderness - Integumentary Integumentary: no cellulitis - Neurologic Neurologic: CNII-XII intact, focal deficits Results CBC & Chem 7: 03/22/18 12:50 03/22/18 12:50 Labs: Abnormal Lab Results - Last 24 Hours (Table) 03/22/18 03/22/18 03/22/18 Range/Units 12:50 12:50 12:50 RBC 4.04 L (4.30-5.90) m/uL Hgb 12.4 L (13.0-17.5) gm/dL Hct 38.2 L (39.0-53.0) % Sodium 132 L (137-145) mmol/L Chloride 97 L (98-107) mmol/L BUN 25 H (9-20) mg/dL Glucose 277 H (74-99) mg/dL POC Glucose (mg/dL) (75-99) mg/dL Alkaline Phosphatase 176 H (38-126) U/L CK-MB (CK-2) 3.0 H (0.0-2.4) ng/mL Troponin I 0.076 H* (0.000-0.034) ng/mL Total Protein 6.1 L (6.3-8.2) g/dL 03/22/18 03/22/18 Range/Units 17:08 18:04 RBC (4.30-5.90) m/uL Hgb (13.0-17.5) gm/dL Hct (39.0-53.0) % Sodium (137-145) mmol/L Chloride (98-107) mmol/L BUN (9-20) mg/dL Glucose (74-99) mg/dL POC Glucose (mg/dL) 283 H (75-99) mg/dL Alkaline Phosphatase (38-126) U/L CK-MB (CK-2) (0.0-2.4) ng/mL Troponin I 0.056 H* (0.000-0.034) ng/mL Total Protein (6.3-8.2) g/dL Assessment and Plan (1) Diabetic neuropathy Current Visit: Yes Status: Acute Code(s): E11.40 - TYPE 2 DIABETES MELLITUS WITH DIABETIC NEUROPATHY, UNSP SNOMED Code(s): 018536448 (2) TIA (transient ischemic attack) Current Visit: Yes Status: Acute Code(s): G45.9 - TRANSIENT CEREBRAL ISCHEMIC ATTACK, UNSPECIFIED SNOMED Code(s): 706073612 (3) COPD (chronic obstructive pulmonary disease) Current Visit: No Status: Acute Code(s): J44.9 - CHRONIC OBSTRUCTIVE PULMONARY DISEASE, UNSPECIFIED SNOMED Code(s): 96635435 (4) High risk for readmission Current Visit: No Status: Acute Code(s): Z91.89 - OTH PERSONAL RISK FACTORS , NOT ELSEWHERE CLASSIFIED SNOMED Code(s): 418369640 (5) NICM (nonischemic cardiomyopathy) Current Visit: No Status: Acute Code(s): I42.9 - CARDIOMYOPATHY, UNSPECIFIED SNOMED Code(s): 84928135 Plan: We'll go ahead and rule out myocardial infraction. Question element of TIA versus reversible in ischemic neurologic deficit versus CVA. MRI, echo cardiac EEG is pending. Check CMP and CBC in a.m. Go ahead and give nebulized treatments as needed if necessary. Ambien 5 mg when necessary sleep. See orders otherwise. Prognosis is guarded. Time with Patient: Greater than 30
[2018-03-22] MEDS: ATORVASTATIN 40 MG TAB PO SCH (20:58)
[2018-03-22] MEDS: PREGABALIN 75 MG CAP PO SCH (20:58)
[2018-03-22] MEDS ORDERED: ZOLPIDEM 5 MG TAB PO PRN (20:59)
[2018-03-22 21:14] LABS: Glucose,Whole Blood 491 mg/dL (75-99)
[2018-03-22] MEDS: INSULIN DETEMIR 100 UNIT/ML 10 ML VIAL SQ SCH (21:23)
[2018-03-22] MEDS: INSULIN ASPART 100 UNIT/ML 1 ML 10 ML VIAL SQ SCH (21:25)
[2018-03-22] MEDS: ALBUTEROL NEBULIZED 2.5 MG/3 ML INHALATION PRN (23:57)
[2018-03-23 00:33] LABS: Glucose,Whole Blood 298 mg/dL (75-99)
[2018-03-23] MEDS: ALBUTEROL NEBULIZED 2.5 MG/3 ML INHALATION PRN ×5 (03:21→19:49)
[2018-03-23 05:42] LABS: Glucose,Whole Blood 88 mg/dL (75-99)
[2018-03-23] MEDS: INSULIN ASPART 100 UNIT/ML 1 ML 10 ML VIAL SQ SCH ×4 (05:59→21:31)
[2018-03-23 07:01] LABS: HCT 35.9 % (39.0-53.0); HGB 11.5 gm/dL (13.0-17.5); MCH 30.2 pg (25.0-35.0); MCHC 31.9 g/dL (31.0-37.0); MCV 94.4 fL (80.0-100.0); Mean Platelet Volume 7.1; Platelet Count 180 k/uL (150-450); RBC 3.81 m/uL (4.30-5.90); WBC 4.1 k/uL (3.8-10.6)
[2018-03-23] MEDS: SODIUM CHLORIDE 0.9% 1,000 ML IV SCH ×3 (07:01→22:48)
[2018-03-23 07:21] LABS: ALT 55 U/L (21-72); AST 44 U/L (17-59); Albumin 3.1 g/dL (3.5-5.0); Alkaline Phosphatase 142 U/L (38-126); Anion Gap 7 mmol/L; Blood Urea Nitrogen 22 mg/dL (9-20); Calcium 8.6 mg/dL (8.4-10.2); Carbon Dioxide 24 mmol/L (22-30); Chloride 102 mmol/L (98-107); Cholesterol 105 mg/dL (<200); Glucose 72 mg/dL (74-99); HDL Cholesterol 61 mg/dL (40-60); LDL Cholesterol,Calculated 35 mg/dL (0-99); Potassium 4.5 mmol/L (3.5-5.1); Sodium 133 mmol/L (137-145); Total Bilirubin 0.3 mg/dL (0.2-1.3); Total Protein 5.4 g/dL (6.3-8.2); Triglycerides 44 mg/dL (<150)
--- NOTE | 2018-03-23 08:14 | P.PN ---
Subjective Progress Note Date: 03/23/18 Principal diagnosis: TIA ?CVA with extremity numbness The patient woke up this morning complaining of left finger tingling. He does have significant cough and congestion. He is undergoing nebulize treatment at this time because of this. No voiding difficulties. MRI, EEG and echocardiogram are pending. Objective - Vital Signs Vital signs: Vital Signs Temp 97.8 F 03/23/18 04:00 Pulse 94 03/23/18 08:06 Resp 18 03/23/18 04:00 BP 128/78 03/23/18 04:00 Pulse Ox 97 03/23/18 04:00 Intake & Output 03/22/18 03/23/18 03/23/18 18:59 06:59 18:59 Intake Total 1842 Balance 1842 Weight 51.256 kg 63.4 kg Intake: Oral 1842 Other: Voiding Method Toilet # Voids 2 - Constitutional General appearance: Present: thin - EENT Eyes: Absent: abnormal pupil - Neck Neck: Absent: lymphadenopathy - Respiratory Respiratory: right: rhonchi, wheezing - Cardiovascular Rhythm: regular Heart sounds: normal: S1, S2 Abnormal Heart Sounds: Absent: S3 Gallop - Gastrointestinal General gastrointestinal: Present: soft. Absent: tenderness - Neurologic Neurologic: Present: CNII-XII intact - Labs CBC & Chem 7: 03/23/18 06:16 03/23/18 06:16 Labs: Abnormal Lab Results - Last 24 Hours (Table) 03/22/18 03/22/18 03/22/18 Range/Units 12:50 12:50 12:50 RBC 4.04 L (4.30-5.90) m/uL Hgb 12.4 L (13.0-17.5) gm/dL Hct 38.2 L (39.0-53.0) % Sodium 132 L (137-145) mmol/L Chloride 97 L (98-107) mmol/L BUN 25 H (9-20) mg/dL Glucose 277 H (74-99) mg/dL POC Glucose (mg/dL) (75-99) mg/dL Alkaline Phosphatase 176 H (38-126) U/L CK-MB (CK-2) 3.0 H (0.0-2.4) ng/mL Troponin I 0.076 H* (0.000-0.034) ng/mL Total Protein 6.1 L (6.3-8.2) g/dL Albumin (3.5-5.0) g/dL HDL Cholesterol (40-60) mg/dL 03/22/18 03/22/18 03/22/18 Range/Units 17:08 18:04 21:12 RBC (4.30-5.90) m/uL Hgb (13.0-17.5) gm/dL Hct (39.0-53.0) % Sodium (137-145) mmol/L Chloride (98-107) mmol/L BUN (9-20) mg/dL Glucose (74-99) mg/dL POC Glucose (mg/dL) 283 H 491 H (75-99) mg/dL Alkaline Phosphatase (38-126) U/L CK-MB (CK-2) (0.0-2.4) ng/mL Troponin I 0.056 H* (0.000-0.034) ng/mL Total Protein (6.3-8.2) g/dL Albumin (3.5-5.0) g/dL HDL Cholesterol (40-60) mg/dL 03/23/18 03/23/18 03/23/18 Range/Units 00:30 00:31 06:16 RBC (4.30-5.90) m/uL Hgb (13.0-17.5) gm/dL Hct (39.0-53.0) % Sodium 133 L (137-145) mmol/L Chloride (98-107) mmol/L BUN 22 H (9-20) mg/dL Glucose 72 L (74-99) mg/dL POC Glucose (mg/dL) 298 H (75-99) mg/dL Alkaline Phosphatase 142 H (38-126) U/L CK-MB (CK-2) (0.0-2.4) ng/mL Troponin I 0.053 H* (0.000-0.034) ng/mL Total Protein 5.4 L (6.3-8.2) g/dL Albumin 3.1 L (3.5-5.0) g/dL HDL Cholesterol 61 H (40-60) mg/dL 03/23/18 Range/Units 06:16 RBC 3.81 L (4.30-5.90) m/uL Hgb 11.5 L (13.0-17.5) gm/dL Hct 35.9 L (39.0-53.0) % Sodium (137-145) mmol/L Chloride (98-107) mmol/L BUN (9-20) mg/dL Glucose (74-99) mg/dL POC Glucose (mg/dL) (75-99) mg/dL Alkaline Phosphatase (38-126) U/L CK-MB (CK-2) (0.0-2.4) ng/mL Troponin I (0.000-0.034) ng/mL Total Protein (6.3-8.2) g/dL Albumin (3.5-5.0) g/dL HDL Cholesterol (40-60) mg/dL Assessment and Plan (1) Diabetic neuropathy Current Visit: Yes Status: Acute Code(s): E11.40 - TYPE 2 DIABETES MELLITUS WITH DIABETIC NEUROPATHY, UNSP SNOMED Code(s): 234856042 (2) TIA (transient ischemic attack) Current Visit: Yes Status: Acute Code(s): G45.9 - TRANSIENT CEREBRAL ISCHEMIC ATTACK, UNSPECIFIED SNOMED Code(s): 053654724 (3) COPD (chronic obstructive pulmonary disease) Current Visit: No Status: Acute Code(s): J44.9 - CHRONIC OBSTRUCTIVE PULMONARY DISEASE, UNSPECIFIED SNOMED Code(s): 97486855 (4) High risk for readmission Current Visit: No Status: Acute Code(s): Z91.89 - OTH PERSONAL RISK FACTORS , NOT ELSEWHERE CLASSIFIED SNOMED Code(s): 261147441 (5) NICM (nonischemic cardiomyopathy) Current Visit: No Status: Acute Code(s): I42.9 - CARDIOMYOPATHY, UNSPECIFIED SNOMED Code(s): 30612895 Plan: Await neurologic evaluation agnostic radiology. Appreciate Dr. Kaplan input. We'll continue to follow. COPD-is fairly well-controlled with nebulizer treatments. If the patient does worsen, consider [facility] Medrol. Anticipate discharge in next 24-48 hours if testing is stable and clinically resolving symptoms.
[2018-03-23] MEDS: FUROSEMIDE 40 MG TAB PO SCH (08:51)
[2018-03-23] MEDS: ATORVASTATIN 40 MG TAB PO SCH (08:51)
[2018-03-23] MEDS: PREGABALIN 75 MG CAP PO SCH ×3 (08:52→21:37)
[2018-03-23] MEDS: ASPIRIN 325 MG TAB PO SCH (08:52)
[2018-03-23] MEDS: INSULIN DETEMIR 100 UNIT/ML 10 ML VIAL SQ SCH (09:34)
[2018-03-23 11:35] LABS: Glucose,Whole Blood 229 mg/dL (75-99)
[2018-03-23 12:32] LABS: Hemoglobin A1C 13.6 % (4.0-6.0)
--- NOTE | 2018-03-23 12:46 | ECHOF ---
Referral Reason:Thrombus MEASUREMENTS -------- HEIGHT: 175.3 cm WEIGHT: 63.0 kg BP: 128/78 RVIDd: 3.0 cm (< 3.3) IVSd: 1.3 cm (0.6 - 1.1) LVIDd: 6.0 cm (3.9 - 5.3) LVPWd: 1.4 cm (0.6 - 1.1) IVSs: 1.5 cm LVIDs: 4.9 cm LVPWs: 1.5 cm LA Diam: 4.7 cm (2.7 - 3.8) LAESV Index (A-L): 67.45 ml/m Ao Diam: 3.1 cm (2.0 - 3.7) AV Cusp: 1.6 cm (1.5 - 2.6) LA Diam: 4.4 cm (2.7 - 3.8) MV EXCURSION: 19.089 mm (> 18.000) MV EF SLOPE: 132 mm/s (70 - 150) EPSS: 1.8 cm MV E Niraj: 0.83 m/s MV DecT: 80 ms MV A Niraj: 0.54 m/s MV E/A Ratio: 1.52 RAP: 5.00 mmHg RVSP: 32.77 mmHg FINDINGS -------- Paced rhythm. Lumason used to r/o clot in apex. The left ventricular size is normal. There is borderline concentric left ventricular hypertrophy. There is severe global hypokinesis of LV . Overall left ventricular systolic function is severely impaired with, an EF < 20%. The right ventricle is normal in size. The left atrium is moderately dilated. LA is severely dilated >40 ml/m2 The right atrial size is normal. There is mild aortic valve sclerosis. There is no evidence of aortic regurgitation. Mild mitral annular calcification present. Moderate mitral regurgitation is present. Mild tricuspid regurgitation present. There is no evidence of pulmonary hypertension. The right v entricular systolic pressure, as measured by Doppler, is 32.77mmHg. Trace/mild (physiologic) pulmonic regurgitation. There is a trivial pericardial effusion present. CONCLUSIONS -------- 1. Lumason used to r/o clot in apex. 2. The left ventricular size is normal. 3. There is borderline concentric left ventricular hypertrophy. 4. There is severe global hypokinesis of LV . 5. Overall left ventricular systolic function is severely impaired with, an EF < 20%. 6. The right ventricle is normal in size. 7. The left atrium is moderately dilated. 8. LA is severely dilated >40 ml/m2 9. The right atrial size is normal. 10. There is mild aortic valve sclerosis. 11. Mild mitral annular calcification present. 12. Moderate mitral regurgitation is present. 13. Mild tricuspid regurgitation present. 14. There is no evidence of pulmonary hypertension. 15. The right ventricular systolic pressure, as measured by Doppler, is 32.77mmHg. 16. Trace/mild (physiologic) pulmonic regurgitation. 17. There is a trivial pericardial effusion present. LICENSED APPRAISER: Alison Covington RDCS
[2018-03-23] MEDS ORDERED: FUROSEMIDE 10 MG/ML 4 ML VIAL IV STA (13:05)
[2018-03-23] MEDS ORDERED: FUROSEMIDE 10 MG/ML 4 ML VIAL ONE (13:06)
[2018-03-23 14:41] VITALS: BMI 20.6
[2018-03-23 16:21] LABS: Glucose,Whole Blood 215 mg/dL (75-99)
--- NOTE | 2018-03-23 18:13 | P.PN ---
Subjective Progress Note Date: 03/23/18 This patient is a 57-year-old male who was admitted to hospital for evaluation of left-sided arm and leg numbness. His clinical symptoms suggested possibility of TIA versus stroke. He has a long-standing history of diabetes mellitus and was sent for laboratory testing yesterday for further assessment. His hemoglobin A1c came back very elevated at 13.6. He states yesterday evening he also experienced some numbness in his right foot as well. Clinical symptoms are suggesting possibility of diffuse diabetic peripheral neuropathy as a cause of his symptoms. He underwent CAT scan which failed to reveal any evidence of acute stroke. We recommend MRI of the brain to be done for further assessment of possible right hemispheric stroke. MRI is still pending this evening. We reviewed the results of his laboratory testing with the patient and he will require tight control of his diabetes mellitus. We will continue to follow his condition and neurological status closely during this admission. His overall prognosis at this time remains guarded. Objective - Vital Signs Vital signs: Vital Signs Temp 97.8 F 03/23/18 04:00 Pulse 82 03/23/18 16:22 Resp 16 03/23/18 15:37 BP 139/78 03/23/18 12:00 Pulse Ox 99 03/23/18 12:00 Intake & Output 03/22/18 03/23/18 03/23/18 18:59 06:59 18:59 Intake Total 1842 1220 Balance 1842 1220 Weight 51.256 kg 63.4 kg 63.4 kg Intake: Intake, IV Titration 500 Amount Sodium Chloride 0.9% 1, 500 000 ml @ 100 mls/hr IV . Q10H [facility] Rx#:[id number] Oral 1842 720 Other: Voiding Method Toilet Toilet # Voids 2 3 - Exam Physical examination: PHYSICAL EXAMINATION: Patient is resting comfortably in bed. VITAL SIGNS: Blood pressure is [139/78]. Heart rate is [104]. Respiration is [16 ]. Temperature is [97.8]. HEENT: Head is atraumatic, neck is supple, there were no carotid bruits. CHEST: Lungs are clear to auscultation and percussion. CARDIAC: S1, S2 normal rate and rhythm. There is no murmur. ABDOMEN: Soft and nontender. Bowel sounds are present. EXTREMITIES: There is no pedal edema. Peripheral pulses are present. Neurological examination: Patient's neurological examination remains unchanged from yesterday. Continues to experience paresthesias involving his left arm and leg. - Labs CBC & Chem 7: 03/23/18 06:16 03/23/18 06:16 Labs: Abnormal Lab Results - Last 24 Hours (Table) 03/22/18 03/22/18 03/23/18 Range/Units 18:04 21:12 00:30 RBC (4.30-5.90) m/uL Hgb (13.0-17.5) gm/dL Hct (39.0-53.0) % Sodium (137-145) mmol/L BUN (9-20) mg/dL Glucose (74-99) mg/dL POC Glucose (mg/dL) 491 H (75-99) mg/dL Hemoglobin A1c (4.0-6.0) % Alkaline Phosphatase (38-126) U/L Troponin I 0.056 H* 0.053 H* (0.000-0.034) ng/mL Total Protein (6.3-8.2) g/dL Albumin (3.5-5.0) g/dL HDL Cholesterol (40-60) mg/dL 03/23/18 03/23/18 03/23/18 Range/Units 00:31 06:16 06:16 RBC (4.30-5.90) m/uL Hgb (13.0-17.5) gm/dL Hct (39.0-53.0) % Sodium 133 L (137-145) mmol/L BUN 22 H (9-20) mg/dL Glucose 72 L (74-99) mg/dL POC Glucose (mg/dL) 298 H (75-99) mg/dL Hemoglobin A1c 13.6 H (4.0-6.0) % Alkaline Phosphatase 142 H (38-126) U/L Troponin I (0.000-0.034) ng/mL Total Protein 5.4 L (6.3-8.2) g/dL Albumin 3.1 L (3.5-5.0) g/dL HDL Cholesterol 61 H (40-60) mg/dL 03/23/18 03/23/18 03/23/18 Range/Units 06:16 11:31 16:19 RBC 3.81 L (4.30-5.90) m/uL Hgb 11.5 L (13.0-17.5) gm/dL Hct 35.9 L (39.0-53.0) % Sodium (137-145) mmol/L BUN (9-20) mg/dL Glucose (74-99) mg/dL POC Glucose (mg/dL) 229 H 215 H (75-99) mg/dL Hemoglobin A1c (4.0-6.0) % Alkaline Phosphatase (38-126) U/L Troponin I (0.000-0.034) ng/mL Total Protein (6.3-8.2) g/dL Albumin (3.5-5.0) g/dL HDL Cholesterol (40-60) mg/dL Assessment and Plan (1) Acute right arterial ischemic stroke, MCA (middle cerebral artery) Current Visit: Yes Status: Acute Code(s): I63.511 - CEREB INFRC D/T UNSP OCCLS OR STENOS OF RIGHT MID CEREB ART SNOMED Code(s): 967254777 (2) TIA (transient ischemic attack) Current Visit: Yes Status: Acute Code(s): G45.9 - TRANSIENT CEREBRAL ISCHEMIC ATTACK, UNSPECIFIED SNOMED Code(s): 348863627 (3) Diabetic neuropathy Current Visit: Yes Status: Acute Code(s): E11.40 - TYPE 2 DIABETES MELLITUS WITH DIABETIC NEUROPATHY, UNSP SNOMED Code(s): 666527118 (4) Diabetes Current Visit: No Status: Acute Code(s): E11.9 - TYPE 2 DIABETES MELLITUS WITHOUT COMPLICATIONS SNOMED Code(s): 02006656 Plan: This patient is a 57-year-old male being evaluated for left-sided paresthesias and numbness. He also had some weakness suggesting possibility of right hemispheric TIA versus stroke. We are waiting MRI of the brain to be completed for him. His laboratory testing today reveals his hemoglobin A1c to be quite elevated at 13.6. He'll require tighter control of his diabetes. Some of his symptoms may be related to diffuse diabetic peripheral neuropathy. We will continue his current stroke workup at this time. We have reviewed his test results with the patient in detail today. Would recommend he continue on 1 aspirin daily for secondary stroke prevention. His total cholesterol came back well within normal range. We will continue to monitor him for any further changes in his neurological status. His overall prognosis at this time remains guarded.
[2018-03-23 19:58] LABS: Glucose,Whole Blood 220 mg/dL (75-99)
--- NOTE | 2018-03-23 20:26 | EEG ---
ELECTROENCEPHALOGRAM REPORT DATE OF EE03/23/2018 ELECTROENCEPHALOGRAPHIC EXAMINATION REPORT: INDICATION FOR EXAMINATION: This patient is a 57-year-old male being evaluated for left hand numbness and weakness and possible TIA. AGE: [age]. EEG FINDINGS: A routine 21-channel awake digital EEG recording was accomplished utilizing the 10-20 international system with bipolar and referential montages. The background activity in the most alert resting state consists of a low to medium amplitude, fairly well developed well sustained 6-7 Hz activity over the posterior head regions. This posterior rhythm attenuates to eye opening. There is a small amount of low amplitude 18-20 Hz beta activity seen maximally over the anterior head regions. Muscle and movement artifact was observed on a few occasions during the tracing. Hyperventilation was not performed. Photic stimulation at flash frequencies of 2-30 Hz produced a minimal occipital driving response. Toward the mid and lateral portion of the tracing, the patient does drift into spontaneous drowsiness. No epileptiform discharges were seen. IMPRESSION: This EEG is mildly abnormal in a diffuse fashion due to slight slowing of the EEG background. The EEG failed to reveal any focal, lateralized, or epileptiform abnormalities. Clinical correlation is recommended. MMODL / IJN: [id number] /
[2018-03-24 01:36] VITALS: TEMP 97
[2018-03-24] MEDS: ALBUTEROL NEBULIZED 2.5 MG/3 ML INHALATION PRN ×2 (03:21→07:59)
[2018-03-24 06:35] LABS: Glucose,Whole Blood 271 mg/dL (75-99)
[2018-03-24] MEDS: INSULIN ASPART 100 UNIT/ML 1 ML 10 ML VIAL SQ SCH (07:00)
--- NOTE | 2018-03-24 08:16 | P.DS ---
Providers Date of admission: 03/22/18 15:38 Attending physician: Yusuf Lind Consults: 03/22/18 15:37 Consult Physician Routine Consulting Provider: Chloe Cain Consult Reason/Comments: cva Do you want consulting provider notified?: Yes Primary care physician: Yusuf Lind - Discharge Diagnosis(es) (1) Diabetic neuropathy Current Visit: Yes Status: Acute (2) TIA (transient ischemic attack) Current Visit: Yes Status: Acute (3) COPD (chronic obstructive pulmonary disease) Current Visit: No Status: Acute (4) High risk for readmission Current Visit: Yes Status: Acute (5) NICM (nonischemic cardiomyopathy) Current Visit: No Status: Acute Hospital Course: The patient is here essentially for TIA symptoms. The patient, we suspect is related to peripheral neuropathy from diabetes. As underlying history of severe cardiomyopathy and COPD. The patient was stabilized. MRI EEG was done. EEG showed diffuse changes however, no significant acute lateralizing findings were noted. The patient will be discharged once cleared by neurology to follow-up with me about 5-7 days. Patient Condition at Discharge: Fair Plan - Discharge Summary Discharge Rx Participant: Yes New Discharge Prescriptions: New Albuterol Nebulized [Ventolin Nebulized] 2.5 mg INHALATION RT-QID PRN nebu PRN Reason: Shortness Of Breath Or Wheezing Insulin Detemir [Levemir] 40 unit SQ DAILY #14 syr Continue Furosemide [Lasix] 40 mg PO DAILY HYDROcodone/APAP 10-325MG [[place] 10-325] 1 tab PO Q4HR PRN PRN Reason: Pain Pregabalin [Lyrica] 150 mg PO TID Insulin Lispro [humaLOG Kwikpen] See Protocol SQ ACHS Insulin Degludec [Tresiba Flextouch U-200] 32 unit SQ DAILY Atorvastatin [Lipitor] 40 mg PO DAILY Discharge Medication List Furosemide [Lasix] 40 mg PO DAILY 08/21/13 [History] Atorvastatin [Lipitor] 40 mg PO DAILY 03/22/18 [History] HYDROcodone/APAP 10-325MG [[place] 10-325] 1 tab PO Q4HR PRN 03/22/18 [History] Insulin Degludec [Tresiba Flextouch U-200] 32 unit SQ DAILY 03/22/18 [History] Insulin Lispro [humaLOG Kwikpen] See Protocol SQ ACHS 03/22/18 [History] Pregabalin [Lyrica] 150 mg PO TID 03/22/18 [History] Albuterol Nebulized [Ventolin Nebulized] 2.5 mg INHALATION RT-QID PRN nebu [Rx] Insulin Detemir [Levemir] 40 unit SQ DAILY #14 syr 03/24/18 [Rx] Follow up Appointment(s)/Referral(s): Chloe Cain MD [STAFF PHYSICIAN] - 1 Week Yusuf Lind MD [Primary Care Provider] - 1 Week Patient Instructions/Handouts: Transient Ischemic Attack (DC), Meal Planning with Diabetes Exchanges (DC), Hemoglobin A1c (GEN), Diabetes and Nutrition (DC) Discharge Disposition: HOME SELF-CARE
[2018-03-24] MEDS: PREGABALIN 75 MG CAP PO SCH (08:38)
[2018-03-24] MEDS: ASPIRIN 325 MG TAB PO SCH (08:38)
[2018-03-24] MEDS: FUROSEMIDE 40 MG TAB PO SCH (08:38)
[2018-03-24] MEDS: ATORVASTATIN 40 MG TAB PO SCH (08:38)
[2018-03-24] MEDS: INSULIN DETEMIR 100 UNIT/ML 10 ML VIAL SQ SCH (08:39)
[2018-03-24 09:10] VITALS: BP 124/74; PULSE 108; RESP 16
== END 2018-03-24 10:00 | disposition home or self-care (01) | DRG 74 ==
LOC: EC 12:07 → 3SCARD 15:38
PROVIDERS: ADMIT Family Medicine; ATTEND Family Medicine
DX: E11.40 Type 2 diabetes mellitus with diabetic neuropathy, unspecified (principal); I42.9 Cardiomyopathy, unspecified; I43 Cardiomyopathy in diseases classified elsewhere; E78.5 Hyperlipidemia, unspecified; F17.200 Nicotine dependence, unspecified, uncomplicated; I11.0 Hypertensive heart disease with heart failure; I25.10 Atherosclerotic heart disease of native coronary artery without angina pectoris; I11.9 Hypertensive heart disease without heart failure; I50.9 Heart failure, unspecified; I65.21 Occlusion and stenosis of right carotid artery; J44.9 Chronic obstructive pulmonary disease, unspecified; Z79.4 Long term (current) use of insulin; Z79.899 Other long term (current) drug therapy; Z82.49 Family history of ischemic heart disease and other diseases of the circulatory system; Z82.5 Family history of asthma and other chronic lower respiratory diseases; Z83.3 Family history of diabetes mellitus; Z99.81 Dependence on supplemental oxygen
CPT/HCPCS: 36415; 70450; 70496; 70498; 80053; 80061; 82550; 82553; 83036; 83690; 83735; 84100; 84484; 85025; 85027; 85610; 85730; 93005; 93306; 94640; 95819; 96360; 99285

== ENCOUNTER → 2018-03-29 | Outpatient (CLI) | payer MEDICARE, OTHER ==
--- NOTE | 2018-03-29 16:29 | US ---
EXAMINATION TYPE: US abdomen limited DATE OF EXAM: 03/29/2018 COMPARISON: CT 06/29/2016 CLINICAL HISTORY: 57-year-old male K86.1 chronic PANCREATITIS. TECHNIQUE: Multiple sonographic images of the right upper quadrant are obtained. FINDINGS: EXAM MEASUREMENTS: Liver Length: 15.3 cm Gallbladder Wall: 0.1 cm CBD: 1.0 cm Right Kidney: 9.9 x 4.9 x 5.7 cm Blueprint Maker notes: Patient had severe shortness of breath and had to sit upright for exam, unable to roll LLD. Pancreas: some limitations due to overlying bowel gas, heavily calcified, large probable calcificatio n in the uncinate measuring 1.5 x 1.8 x 1.0cm, probable pseudocyst seen in head of pancrease measurin g 3.1 x 2.4 x 2.8, adjacent cyst measuring 1.5 x 1.3 x 1.8cm Liver: wnl Gallbladder: 1.3 cm gallstone. No abnormal gallbladder distention, wall thickening, or pericholecysti c fluid. Evidence for sonographic Victor's sign: Not reported CBD: Questionable stones in duct, difficult to assess due to overlying bowel and heavily calcified pa ncreas causing shadowing Right Kidney: Portions visualized wnl, partially obscured by overlying bowel gas IMPRESSION: 1. Extensive pancreatic calcifications in keeping with provided history of chronic pancreatitis. 2. There are 2 cystic lesions in the pancreas measuring 3.1 cm and 1.5 cm. These are nonspecific and pseudocysts are possible. On the CT of 06/29/2016 and 11/25/2017, 2 cysts are present measuring 3.1 and 2.1 cm and then 2.9 and 1.4 cm, respectively. This suggests relative stability from 11/25/2017. Ultras ound follow-up can be performed. 3. The bile duct appears mildly dilated at 1 cm. Questionable stones in the duct versus the adjacent pancreatic calcifications. Correlate with alkaline phosphatase and bilirubin levels to exclude the po ssibility of biliary obstruction.
== END | disposition home or self-care (01) ==
LOC: RADUSWWP 14:30
DX: K86.1 Other chronic pancreatitis (principal); K86.89 Other specified diseases of pancreas; K86.2 Cyst of pancreas; K83.8 Other specified diseases of biliary tract
CPT/HCPCS: 76705

== ENCOUNTER → 2018-04-14 | Outpatient (CLI) | payer MEDICARE, OTHER ==
[2018-04-14 16:57] LABS: ALT 40 U/L (10-49); AST 45 U/L (14-35); Alkaline Phosphatase 157 U/L (41-126); Calcium 8.6 mg/dL (8.7-10.3); Carbon Dioxide 27.4 mmol/L (21.6-31.8); Chloride 96 mmol/L (96-109); Cholesterol 117 mg/dL (0-200); Globulin 1.5 g/dL (1.6-3.3); Glucose 125 mg/dL (70-110); Potassium 4.4 mmol/L (3.5-5.5); Sodium 130 mmol/L (135-145); Total Bilirubin 0.4 mg/dL (0.2-1.2); Total Protein 5.4 g/dL (6.2-8.2); Triglycerides <50.0 mg/dL (0.0-149.0); VLDL Calculation 9.98 mg/dL (5.00-40.00)
[2018-04-14 17:37] LABS: Hemoglobin A1C 11.9 % (4.0-6.0)
== END | disposition home or self-care (01) ==
LOC: LABWHC1 11:03
PROVIDERS: ATTEND Internal Medicine
DX: E10.65 Type 1 diabetes mellitus with hyperglycemia (principal); E55.9 Vitamin D deficiency, unspecified
CPT/HCPCS: 36415; 80053; 80061; 82043; 82306; 82570; 83036; 84439; 84443

== ENCOUNTER 2018-04-20 09:29 | Day surgery (SDC) | payer MEDICARE, OTHER ==
[2018-04-18 13:25] VITALS: BMI 16.7
[~2018-04-20 09:29] MED LIST: SODIUM CHLORIDE 0.9% 1,000 ML IV SCH
[2018-04-20 10:01] LABS: Glucose,Whole Blood 105 mg/dL (75-99)
[2018-04-20 10:06] VITALS: BP 120/89; PULSE 92; RESP 16; TEMP 97.6
--- NOTE | 2018-04-20 12:47 | PCN ---
PROCEDURE NOTE Mr. Choudhury has recurrent dizzy spells. He is brought in for a tilt-table test. Baseline 12-lead ECG showed sinus rhythm with frequent PVCs, IVCD of a left bundle branch block morphology. Tilt-table test was performed. Baseline blood pressure 118/92 mmHg, baseline heart rate 100 beats per minute, sinus. Patient is tilted upright at an angle of 70 degrees per protocol. There was no significant change in heart rate or blood pressure. No dysautonomia was noted. No vasodepressor syncope was noted and patient of the procedure. IMPRESSION: Normal heart rate and blood pressure response to upright tilting. A 12-lead ECG shows premature ventricular contractions with IVCD. MMODL / IJN: [id number] /
== END 2018-04-20 11:52 | disposition home or self-care (01) ==
LOC: CATHEP 09:29
PROVIDERS: ATTEND Internal Medicine Clinical Cardiac Electrophysiology
DX: I49.3 Ventricular premature depolarization (principal); I44.7 Left bundle-branch block, unspecified; I42.0 Dilated cardiomyopathy; I11.0 Hypertensive heart disease with heart failure; I50.22 Chronic systolic (congestive) heart failure; I42.6 Alcoholic cardiomyopathy; J98.6 Disorders of diaphragm; E11.9 Type 2 diabetes mellitus without complications; K86.1 Other chronic pancreatitis; F17.210 Nicotine dependence, cigarettes, uncomplicated; F10.21 Alcohol dependence, in remission; Z99.81 Dependence on supplemental oxygen; Z79.82 Long term (current) use of aspirin; Z79.4 Long term (current) use of insulin; Z79.51 Long term (current) use of inhaled steroids; Z79.899 Other long term (current) drug therapy; Z82.49 Family history of ischemic heart disease and other diseases of the circulatory system; Z88.6 Allergy status to analgesic agent; Z88.5 Allergy status to narcotic agent
CPT/HCPCS: 93660

== ENCOUNTER 2018-05-04 14:09 | Inpatient (IN) | payer MEDICARE, OTHER ==
[2018-05-04] MEDS ORDERED: methylPREDNISolone SOD SUCCI 125 MG/2 ML VIAL IV STA (14:26)
[2018-05-04] MEDS ORDERED: IPRATROPIUM-ALBUTEROL 3 ML NEB INHALATION STA (14:26)
[2018-05-04] MEDS ORDERED: FUROSEMIDE 10 MG/ML 4 ML VIAL IV STA (14:26)
--- NOTE | 2018-05-04 14:31 | ED ---
SOB HPI - General Chief Complaint: Shortness of Breath Stated Complaint: Swollen legs,PIA, headache, diarrhea Time Seen by Provider: 05/04/18 14:17 Source: patient, RN notes reviewed Mode of arrival: wheelchair Limitations: no limitations - History of Present Illness Initial Comments: This is a 57-year-old male with a history of COPD 4 L of oxygen normally who states he had the onset this morning of shortness of breath he also had diarrhea 11:30 this morning rate a normal bowel movement earlier he complains of some mild headache his left naris being plugged up cough with phlegm but he can get phlegm up. He feels hot he states but no overt fevers chills or sweats. No overt chest pain. He states he has exertional dyspnea and some orthopnea. MD Complaint: shortness of breath, cough - Related Data Home Medications Medication Instructions Recorded Confirmed HYDROcodone/APAP 10-325MG [[place] 1 tab PO Q4HR PRN 03/22/18 05/04/18 10-325] Insulin Degludec [Tresiba 28 unit SQ DAILY 03/22/18 05/04/18 Flextouch U-200] Insulin Lispro [humaLOG Kwikpen] See Protocol SQ ACHS 03/22/18 05/04/18 Pregabalin [Lyrica] 150 mg PO TID 03/22/18 05/04/18 Cetirizine HCl [Zyrtec] 10 mg PO DAILY 05/04/18 05/04/18 Docusate [Colace] 100 mg PO DAILY 05/04/18 05/04/18 Ergocalciferol (Vitamin D2) 50,000 unit PO Q7D 05/04/18 05/04/18 [Vitamin D2] Famotidine 20 mg PO BID 05/04/18 05/04/18 Metolazone [Zaroxolyn] 5 mg PO DAILY 05/04/18 05/04/18 Zolpidem [Ambien] 10 mg PO HS PRN 05/04/18 05/04/18 Previous Rx's Medication Instructions Recorded Albuterol Nebulized [Ventolin 2.5 mg INHALATION RT-QID PRN nebu 03/24/18 Nebulized] Allergies Allergy/AdvReac Type Severity Reaction Status Date / Time meperidine HCl [From Demerol] Allergy Severe Rapid Verified 05/04/18 15:05 Heart Rate/VOMITING ibuprofen [From Motrin] AdvReac Vomiting Verified 05/04/18 15:05 Review of Systems ROS Statement: Those systems with pertinent positive or pertinent negative responses have been documented in the HPI. ROS Other: All systems not noted in ROS Statement are negative. Past Medical History Past Medical History: COPD, Diabetes Mellitus, Renal Disease Additional Past Medical History / Comment(s): SEE DR TAYLOR H&P, PANCREATITIS, O2 DEPENDANT 4 LITERS N/C, arthritis. bone infection L ear, hole in eardrum. History of Any Multi-Drug Resistant Organisms: None Reported Past Surgical History: AICD Past Anesthesia/Blood Transfusion Reactions: No Reported Reaction Type of Cardiac Device: AICD Device Placement Date:: UNKNOWN Past Psychological History: No Psychological Hx Reported Smoking Status: Current every day smoker Past Alcohol Use History: None Reported Past Drug Use History: None Reported - Past Family History Father Family Medical History: Congestive Heart Failure (CHF), COPD, Diabetes Mellitus Additional Family Medical History / Comment(s): mrsa, gbs, asbestoes exposure/ lings Mother Family Medical History: Diabetes Mellitus, Hypertension General Exam - General Exam Comments Initial Comments: This is a well-developed asthenic appearing male who is awake alert anxious in some respiratory distress Limitations: no limitations General appearance: alert, anxious, in distress Head exam: Present: atraumatic, normocephalic, normal inspection Eye exam: Present: normal appearance, PERRL, EOMI. Absent: scleral icterus, conjunctival injection, periorbital swelling ENT exam: Present: mucous membranes dry, other (Boggy nasal mucosa) Neck exam: Present: normal inspection. Absent: tenderness, meningismus, lymphadenopathy Respiratory exam: Present: wheezes, decreased breath sounds. Absent: respiratory distress, rales, rhonchi, stridor Cardiovascular Exam: Present: regular rate, normal rhythm, normal heart sounds. Absent: systolic murmur, diastolic murmur, rubs, gallop, clicks GI/Abdominal exam: Present: soft, normal bowel sounds. Absent: distended, tenderness, guarding, rebound, rigid Extremities exam: Present: normal inspection, full ROM, normal capillary refill , pedal edema. Absent: tenderness, joint swelling, calf tenderness Back exam: Present: normal inspection Neurological exam: Present: alert, oriented X3, CN II-XII intact Psychiatric exam: Present: normal affect, normal mood Skin exam: Present: warm, dry, intact, normal color. Absent: rash Course Vital Signs 05/04/18 05/04/18 05/04/18 14:12 14:14 14:48 Temperature 97.7 F Pulse Rate 72 101 H Respiratory 18 20 Rate Blood Pressure 128/81 O2 Sat by Pulse 85 L Oximetry 05/04/18 05/04/18 14:59 15:14 Temperature Pulse Rate 101 H Respiratory Rate Blood Pressure O2 Sat by Pulse 100 Oximetry Medical Decision Making - Medical Decision Making I did discuss the findings with the patient he will be admitted the presentation is consistent with COPD and CHF exacerbations. Patient also does demonstrate elevated troponin. He states that every time he comes the hospital this is a recurring event. He does state he had chest pain this morning when she did not discuss earlier in the encounter. Patient will be admitted to Dr. Lind with consultation by both cardiology and pulmonary medicine. - Lab Data Result diagrams: 05/04/18 14:36 05/04/18 14:36 Lab Results 05/04/18 05/04/18 05/04/18 Range/Units 14:27 14:36 14:36 WBC 6.9 (3.8-10.6) k/uL RBC 4.35 (4.30-5.90) m/uL Hgb 12.8 L (13.0-17.5) gm/dL Hct 41.3 (39.0-53.0) % MCV 95.0 (80.0-100.0) fL MCH 29.4 (25.0-35.0) pg MCHC 30.9 L (31.0-37.0) g/dL RDW 14.4 (11.5-15.5) % Plt Count 175 (150-450) k/uL Neutrophils % 68 % Lymphocytes % 19 % Monocytes % 9 % Eosinophils % 2 % Basophils % 0 % Neutrophils # 4.7 (1.3-7.7) k/uL Lymphocytes # 1.3 (1.0-4.8) k/uL Monocytes # 0.6 (0-1.0) k/uL Eosinophils # 0.1 (0-0.7) k/uL Basophils # 0.0 (0-0.2) k/uL PT (9.0-12.0) sec INR (<1.2) APTT (22.0-30.0) sec Sodium (137-145) mmol/L Potassium (3.5-5.1) mmol/L Chloride (98-107) mmol/L Carbon Dioxide (22-30) mmol/L Anion Gap mmol/L BUN (9-20) mg/dL Creatinine (0.66-1.25) mg/dL Est GFR (CKD-EPI)AfAm (>60 ml/min/1.73 sqM) Est GFR (CKD-EPI)NonAf (>60 ml/min/1.73 sqM) Glucose (74-99) mg/dL Calcium (8.4-10.2) mg/dL Magnesium (1.6-2.3) mg/dL Total Bilirubin (0.2-1.3) mg/dL AST (17-59) U/L ALT (21-72) U/L Alkaline Phosphatase (38-126) U/L Total Creatine Kinase 69 (55-170) U/L CK-MB (CK-2) 2.0 (0.0-2.4) ng/mL CK-MB (CK-2) Rel Index 2.9 Troponin I 0.087 H* (0.000-0.034) ng/mL NT-Pro-B Natriuret Pep pg/mL Total Protein (6.3-8.2) g/dL Albumin (3.5-5.0) g/dL Influenza Type A RNA Not Detected (Not Detectd) Influenza Type B (PCR) Not Detected (Not Detectd) 05/04/18 05/04/18 05/04/18 Range/Units 14:36 14:36 14:36 WBC (3.8-10.6) k/uL RBC (4.30-5.90) m/uL Hgb (13.0-17.5) gm/dL Hct (39.0-53.0) % MCV (80.0-100.0) fL MCH (25.0-35.0) pg MCHC (31.0-37.0) g/dL RDW (11.5-15.5) % Plt Count (150-450) k/uL Neutrophils % % Lymphocytes % % Monocytes % % Eosinophils % % Basophils % % Neutrophils # (1.3-7.7) k/uL Lymphocytes # (1.0-4.8) k/uL Monocytes # (0-1.0) k/uL Eosinophils # (0-0.7) k/uL Basophils # (0-0.2) k/uL PT 11.1 (9.0-12.0) sec INR 1.0 (<1.2) APTT 26.1 (22.0-30.0) sec Sodium 135 L (137-145) mmol/L Potassium 4.4 (3.5-5.1) mmol/L Chloride 98 (98-107) mmol/L Carbon Dioxide 27 (22-30) mmol/L Anion Gap 10 mmol/L BUN 35 H (9-20) mg/dL Creatinine 0.83 (0.66-1.25) mg/dL Est GFR (CKD-EPI)AfAm >90 (>60 ml/min/1.73 sqM) Est GFR (CKD-EPI)NonAf >90 (>60 ml/min/1.73 sqM) Glucose 182 H (74-99) mg/dL Calcium 9.3 (8.4-10.2) mg/dL Magnesium 2.7 H (1.6-2.3) mg/dL Total Bilirubin 0.5 (0.2-1.3) mg/dL AST 55 (17-59) U/L ALT 36 (21-72) U/L Alkaline Phosphatase 108 (38-126) U/L Total Creatine Kinase (55-170) U/L CK-MB (CK-2) (0.0-2.4) ng/mL CK-MB (CK-2) Rel Index Troponin I (0.000-0.034) ng/mL NT-Pro-B Natriuret Pep 81241 pg/mL Total Protein 6.6 (6.3-8.2) g/dL Albumin 4.3 (3.5-5.0) g/dL Influenza Type A RNA (Not Detectd) Influenza Type B (PCR) (Not Detectd) - EKG Data -: EKG Interpreted by Me (EKG shows sinus rhythm premature ventricular complexes rate was 100. Inter) - Radiology Data Radiology results: report reviewed (I did review the imaging and report no evidence of acute findings.), image reviewed Critical Care Time Critical Care Time: Yes Critical Care Time: Total care time of 43 masses includes initial presentation with history physical labs x-rays review of old charting. Multiple reevaluation the patient response to therapy discuss with the patient regarding the findings. Discussed with Dr. Lind regarding the findings admission orders and documentation of the above. Disposition Clinical Impression: Congestive heart failure, Acute exacerbation of chronic obstructive airways disease, Adult respiratory distress syndrome Disposition: ADMITTED IP TO THIS [facility] Condition: Serious Referrals: Yusuf Lind MD [Primary Care Provider] - 1-2 days
[2018-05-04 14:53] LABS: Basophils % (A) 0 %; Eosinophils # (A) 0.1 k/uL (0-0.7); Eosinophils % (A) 2 %; HCT 41.3 % (39.0-53.0); HGB 12.8 gm/dL (13.0-17.5); Lymphocytes # (A) 1.3 k/uL (1.0-4.8); Lymphocytes % (A) 19 %; MCH 29.4 pg (25.0-35.0); MCHC 30.9 g/dL (31.0-37.0); Monocytes # (A) 0.6 k/uL (0-1.0); Monocytes % (A) 9 %; Neutrophils # (A) 4.7 k/uL (1.3-7.7); Neutrophils % (A) 68 %; Platelet Count 175 k/uL (150-450); RBC 4.35 m/uL (4.30-5.90); RDW 14.4 % (11.5-15.5); WBC 6.9 k/uL (3.8-10.6)
[2018-05-04 15:04] LABS: Partial Thromboplastin Time 26.1 sec (22.0-30.0); Prothrombin Time 11.1 sec (9.0-12.0)
[2018-05-04 15:09] LABS: ALT 36 U/L (21-72); AST 55 U/L (17-59); Albumin 4.3 g/dL (3.5-5.0); Alkaline Phosphatase 108 U/L (38-126); Anion Gap 10 mmol/L; Blood Urea Nitrogen 35 mg/dL (9-20); Calcium 9.3 mg/dL (8.4-10.2); Carbon Dioxide 27 mmol/L (22-30); Chloride 98 mmol/L (98-107); Glucose 182 mg/dL (74-99); Magnesium 2.7 mg/dL (1.6-2.3); Potassium 4.4 mmol/L (3.5-5.1); Sodium 135 mmol/L (137-145); Total Bilirubin 0.5 mg/dL (0.2-1.3); Total Protein 6.6 g/dL (6.3-8.2)
--- NOTE | 2018-05-04 15:37 | XR ---
EXAMINATION TYPE: XR chest 2V DATE OF EXAM: 05/04/2018 COMPARISON: November 25, 2017 HISTORY: Shortness of breath TECHNIQUE: Frontal and lateral views of the chest are obtained. FINDINGS: Scattered senescent parenchymal changes noted. Hyperinflation compatible with COPD. No evidence for infiltrate. No evidence for atelectasis. Heart size is stable. Mediastinal structures are stable and grossly unremarkable. No evidence for hilar prominence. Degenerative changes dorsal spine. IMPRESSION: 1. No evidence for acute pulmonary disease.
[2018-05-04 15:46] LABS: Troponin I 0.087 ng/mL (0.000-0.034)
[2018-05-04] MEDS ORDERED: ZOLPIDEM 10 MG TAB PO PRN (17:14)
[2018-05-04] MEDS: INSULIN ASPART (NovoLOG) 100 UNIT/ML VIAL SQ SCH ×2 (19:46→20:48)
[2018-05-04] MEDS: SODIUM CHLORIDE 0.9% 1,000 ML IV SCH (19:46)
[2018-05-04] MEDS: HYDROcodone/APAP 10-325MG 1 EACH TAB PO PRN (19:54)
[2018-05-04] MEDS: methylPREDNISolone SOD SUCCI 125 MG/2 ML VIAL IV SCH (19:54)
[2018-05-04] MEDS: PREGABALIN 75 MG CAP PO SCH (19:54)
[2018-05-04] MEDS: FAMOTIDINE 20 MG TAB PO SCH (19:55)
[2018-05-04 20:08] LABS: Glucose,Whole Blood 274 mg/dL (75-99)
[2018-05-04] MEDS: IPRATROPIUM-ALBUTEROL 3 ML NEB INHALATION SCH (21:12)
[2018-05-05] MEDS: IPRATROPIUM-ALBUTEROL 3 ML NEB INHALATION SCH ×7 (00:17→22:56)
[2018-05-05] MEDS: methylPREDNISolone SOD SUCCI 125 MG/2 ML VIAL IV SCH ×2 (01:10→07:06)
[2018-05-05 06:04] LABS: Glucose,Whole Blood 552 mg/dL (75-99)
[2018-05-05 06:04] LABS: Glucose,Whole Blood 583 mg/dL (75-99)
[2018-05-05] MEDS ORDERED: INSULIN REGULAR BOLUS (FROM DRIP BAG) IV ONE (06:14)
[2018-05-05 06:57] LABS: Glucose,Whole Blood 540 mg/dL (75-99)
[2018-05-05] MEDS: INSULIN REGULAR 100 UNIT in SODIUM CHLORIDE 0.9% 100 ML IV SCH ×2 (07:01→14:09)
[2018-05-05 07:33] LABS: Glucose,Whole Blood 502 mg/dL (75-99)
--- NOTE | 2018-05-05 07:43 | P.HPIM ---
History of Present Illness H&P Date: 05/05/18 Chief Complaint: Shortness of breath This is a 57-year-old white male with known history of coronary myopathy and COPD with history of chronic pancreatitis and poorly controlled diabetes who was having difficulty with edema last week. He stated element of scrotal edema and I wanted have the patient admitted but he refused. He now had an element of worsening dyspnea on exertion and shortness of breath. The patient was appropriately evaluated and found to have element of COPD exacerbation with element of recurrent CHF. The patient is now admitted for appropriate treatment. Review of Systems Constitutional: Reports fatigue, Denies chills, Denies fever Eyes: denies blurred vision, denies pain Ears, nose, mouth and throat: Denies headache, Denies sore throat Cardiovascular: Reports dyspnea on exertion, Reports shortness of breath, Denies chest pain Respiratory: Denies cough Gastrointestinal: Denies abdominal pain, Denies diarrhea, Denies nausea, Denies vomiting Musculoskeletal: Denies myalgias Integumentary: Denies pruritus, Denies rash Past Medical History Past Medical History: Heart Failure, COPD, Diabetes Mellitus, GERD/Reflux, Pneumonia, Renal Disease Additional Past Medical History / Comment(s): 05-04-18 pt stated he thinks he had a pne vaccine but not sure of date, 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 bone infection L ear, hole in eardrum. History of Any Multi-Drug Resistant Organisms: None Reported Past Surgical History: AICD Past Anesthesia/Blood Transfusion Reactions: No Reported Reaction Type of Cardiac Device: AICD Device Placement Date:: UNKNOWN Past Psychological History: No Psychological Hx Reported Additional Psychological History / Comment(s): pt lives alone uses 02 4 liters n /c. has home care services but not sure of the name of company. also has a nebulizer, glucometer.independant/ drives occ or sisters take him to appts. Smoking Status: Current every day smoker Past Alcohol Use History: None Reported Additional Past Alcohol Use History / Comment(s): started smoking age 8, smoked 2 ppd, quit 2014 after severl attempts to quit then restarted - smokes 8 cig per day, denies any current alcohol use Past Drug Use History: None Reported Additional Drug Use History / Comment(s): in the used cocaine. - Past Family History Father Family Medical History: Congestive Heart Failure (CHF), COPD, Diabetes Mellitus Additional Family Medical History / Comment(s): mrsa, gbs, asbestoes exposure/ lings Mother Family Medical History: Diabetes Mellitus, Hypertension Medications and Allergies Home Medications Medication Instructions Recorded Confirmed Type HYDROcodone/APAP 10-325MG [[place] 1 tab PO Q4HR PRN 03/22/18 05/04/18 History 10-325] Insulin Degludec [Tresiba 28 unit SQ DAILY 03/22/18 05/04/18 History Flextouch U-200] Insulin Lispro [humaLOG Kwikpen] See Protocol SQ ACHS 03/22/18 05/04/18 History Pregabalin [Lyrica] 150 mg PO TID 03/22/18 05/04/18 History Albuterol Nebulized [Ventolin 2.5 mg INHALATION RT-QID PRN nebu 03/24/18 Rx Nebulized] Cetirizine HCl [Zyrtec] 10 mg PO DAILY 05/04/18 05/04/18 History Docusate [Colace] 100 mg PO DAILY 05/04/18 05/04/18 History Ergocalciferol (Vitamin D2) 50,000 unit PO Q7D 05/04/18 05/04/18 History [Vitamin D2] Famotidine 20 mg PO BID 05/04/18 05/04/18 History Metolazone [Zaroxolyn] 5 mg PO DAILY 05/04/18 05/04/18 History Zolpidem [Ambien] 10 mg PO HS PRN 05/04/18 05/04/18 History Allergies Allergy/AdvReac Type Severity Reaction Status Date / Time meperidine HCl [From Demerol] Allergy Severe Rapid Verified 05/04/18 15:05 Heart Rate/VOMITING ibuprofen [From Motrin] AdvReac Vomiting Verified 05/04/18 15:05 Physical Exam Vitals: Vital Signs Temp Pulse Pulse Resp BP BP Pulse Ox 05/05/18 04:46 97.7 F 84 18 97/58 99 05/05/18 03:58 80 05/05/18 00:00 101 H 16 121/78 98 05/04/18 21:24 98 05/04/18 21:14 98 05/04/18 19:55 97.7 F 99 18 100/70 97 05/04/18 18:30 98 18 106/83 99 05/04/18 17:21 98.5 F 99 18 106/83 99 05/04/18 15:14 100 05/04/18 14:59 101 H 05/04/18 14:48 101 H 05/04/18 14:14 20 05/04/18 14:12 97.7 F 72 18 128/81 85 L Intake and Output 05/04/18 05/05/18 05/05/18 22:59 06:59 14:59 Other: Voiding Method Toilet # Voids 1 Weight 60.5 kg - Constitutional General appearance: thin - EENT Eyes: EOMI - Neck Neck: no lymphadenopathy - Respiratory Respiratory: bilateral: dullness - Cardiovascular Rhythm: regular Heart sounds: normal: S1, S2 Abnormal Heart Sounds: no S3 Gallop - Gastrointestinal General gastrointestinal: soft, no tenderness - Neurologic Neurologic: CNII-XII intact Results CBC & Chem 7: 05/04/18 14:36 05/04/18 14:36 Labs: Abnormal Lab Results - Last 24 Hours (Table) 05/04/18 05/04/18 05/04/18 Range/Units 14:36 14:36 14:36 Hgb 12.8 L (13.0-17.5) gm/dL MCHC 30.9 L (31.0-37.0) g/dL Sodium 135 L (137-145) mmol/L BUN 35 H (9-20) mg/dL Glucose 182 H (74-99) mg/dL POC Glucose (mg/dL) (75-99) mg/dL Magnesium 2.7 H (1.6-2.3) mg/dL Troponin I 0.087 H* (0.000-0.034) ng/mL 05/04/18 05/05/18 05/05/18 Range/Units 20:06 06:01 06:03 Hgb (13.0-17.5) gm/dL MCHC (31.0-37.0) g/dL Sodium (137-145) mmol/L BUN (9-20) mg/dL Glucose (74-99) mg/dL POC Glucose (mg/dL) 274 H 552 H 583 H (75-99) mg/dL Magnesium (1.6-2.3) mg/dL Troponin I (0.000-0.034) ng/mL 05/05/18 05/05/18 Range/Units 06:44 07:30 Hgb (13.0-17.5) gm/dL MCHC (31.0-37.0) g/dL Sodium (137-145) mmol/L BUN (9-20) mg/dL Glucose (74-99) mg/dL POC Glucose (mg/dL) 540 H 502 H (75-99) mg/dL Magnesium (1.6-2.3) mg/dL Troponin I (0.000-0.034) ng/mL Thrombosis Risk Factor Assmnt - Choose All That Apply Any of the Below Risk Factors Present?: Yes Each Factor Represents 1 point: Abnormal pulmonary function (COPD), Age 41-60 years, Swollen legs (current) Thrombosis Risk Factor Assessment Total Risk Factor Score: 3 Thrombosis Risk Factor Assessment Level: Moderate Risk Assessment and Plan (1) Acute exacerbation of chronic obstructive airways disease Current Visit: Yes Status: Acute Code(s): J44.1 - CHRONIC OBSTRUCTIVE PULMONARY DISEASE W (ACUTE) EXACERBATION SNOMED Code(s): 280943163 (2) Congestive heart failure Current Visit: Yes Status: Acute Code(s): I50.9 - HEART FAILURE, UNSPECIFIED SNOMED Code(s): 85077645 (3) Hypoxia Current Visit: No Status: Acute Code(s): R09.02 - HYPOXEMIA SNOMED Code(s) : 085513157 (4) NICM (nonischemic cardiomyopathy) Current Visit: No Status: Acute Code(s): I42.9 - CARDIOMYOPATHY, UNSPECIFIED SNOMED Code(s): 06012571 (5) Pancreatitis Current Visit: No Status: Acute Code(s): K85.9 - ACUTE PANCREATITIS, UNSPECIFIED * DO NOT USE * SNOMED Code(s): 58650105 Plan: Check CMP in a.m. Appreciate consultants input. Sliding scale with insulin drip. Reconcile home medications. Slowly wean off of Solu-Medrol. Lasix to be given by mouth today. Dr. Morris's group will covering for the weekend. Anticipate discharge in the next 24-48 hours Time with Patient: Greater than 30
[2018-05-05 08:07] LABS: Glucose,Whole Blood 529 mg/dL (75-99)
[2018-05-05] MEDS: methylPREDNISolone SOD SUCCI 40 MG/ML 1 ML VIAL IV SCH ×4 (08:28→23:28)
[2018-05-05] MEDS: LORATADINE 10 MG TAB PO SCH (08:33)
[2018-05-05] MEDS: FAMOTIDINE 20 MG TAB PO SCH ×2 (08:33→20:45)
[2018-05-05] MEDS: FUROSEMIDE 40 MG TAB PO SCH ×2 (08:33→16:25)
[2018-05-05] MEDS: DOCUSATE 100 MG CAP PO SCH (08:33)
[2018-05-05] MEDS: PREGABALIN 75 MG CAP PO SCH ×3 (08:33→20:45)
[2018-05-05 08:34] LABS: Glucose,Whole Blood 441 mg/dL (75-99)
[2018-05-05] MEDS ORDERED: METOLAZONE 5 MG TAB PO SCH (09:00)
[2018-05-05] MEDS ORDERED: INSULIN DETEMIR (LEVEMIR) 100 UNIT/ML SYR SQ SCH (09:00)
[2018-05-05 09:05] LABS: Glucose,Whole Blood 448 mg/dL (75-99)
[2018-05-05 10:05] LABS: Glucose,Whole Blood 407 mg/dL (75-99)
[2018-05-05 10:35] LABS: Glucose,Whole Blood 363 mg/dL (75-99)
[2018-05-05 11:03] LABS: Glucose,Whole Blood 349 mg/dL (75-99)
[2018-05-05] MEDS: HYDROcodone/APAP 10-325MG 1 EACH TAB PO PRN ×3 (11:17→20:44)
--- NOTE | 2018-05-05 11:25 | P.CRDCN ---
History of Present Illness Consult date: 05/05/18 Requesting physician: Yusuf Lind Reason for Consult (text): CHF Chief complaint: weakness, fatigue History of present illness: This is a pleasant 57-year-old gentleman who follows with Dr. Be in the office. He is a history of nonischemic cardiomyopathy secondary to EtOH abuse, chronic systolic congestive heart failure, hypertension, diabetes, COPD, O2 dependence, diaphragmatic paralysis, hyperlipidemia and prior single chamber AICD, chronic pancreatitis, nicotine dependence and history of alcoholism. He presented to the hospital on this admission with complaints of overall not feeling well, weakness, fatigue and day time sleepiness. The patient has been having episodes of dizziness and underwent tilt table testing in March that was negative. Chest x-ray this admission showed no evidence for acute pulmonary disease. Mr. Choudhury has chronic shortness of breath. He did have significant lower extremity and scrotal edema week or 2 ago but currently has no edema. [facility] admission showed sinus rhythm with PVCs, IVCD and a left bundle branch pattern. Laboratory values showed BUN 35, creatinine 0.83, troponin 0.087 and NT proBNP of 16,400 which is lower than previous level from November. Initially started on IV Lasix which has been changed to by mouth. Also been receiving Solu-Medrol with significant increase in blood glucose and is currently on an insulin drip. Overall, patient is not feeling much better. He continues to complain of fatigue and weakness as well as sleepiness. Also complaining of a congested cough but he is unable to expectorate sputum. 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 bone infection L ear, hole in eardrum. History of Any Multi-Drug Resistant Organisms: None Reported Past Surgical History: AICD Past Anesthesia/Blood Transfusion Reactions: No Reported Reaction Type of Cardiac Device: AICD Device Placement Date:: UNKNOWN Past Psychological History: No Psychological Hx Reported Additional Psychological History / Comment(s): pt lives alone uses 02 4 liters n /c. has home care services but not sure of the name of company. also has a nebulizer, glucometer.independant/ drives occ or sisters take him to appts. Smoking Status: Current every day smoker Past Alcohol Use History: None Reported Additional Past Alcohol Use History / Comment(s): started smoking age 8, smoked 2 ppd, quit 2014 after severl attempts to quit then restarted - smokes 8 cig per day, denies any current alcohol use Past Drug Use History: None Reported Additional Drug Use History / Comment(s): in the used cocaine. - Past Family History Father Family Medical History: Congestive Heart Failure (CHF), COPD, Diabetes Mellitus Additional Family Medical History / Comment(s): mrsa, gbs, asbestoes exposure/ lings Mother Family Medical History: Diabetes Mellitus, Hypertension Medications and Allergies Home Medications Medication Instructions Recorded Confirmed Type HYDROcodone/APAP 10-325MG [[place] 1 tab PO Q4HR PRN 03/22/18 05/04/18 History 10-325] Insulin Degludec [Tresiba 28 unit SQ DAILY 03/22/18 05/04/18 History Flextouch U-200] Insulin Lispro [humaLOG Kwikpen] See Protocol SQ ACHS 03/22/18 05/04/18 History Pregabalin [Lyrica] 150 mg PO TID 03/22/18 05/04/18 History Albuterol Nebulized [Ventolin 2.5 mg INHALATION RT-QID PRN nebu 03/24/18 Rx Nebulized] Cetirizine HCl [Zyrtec] 10 mg PO DAILY 05/04/18 05/04/18 History Docusate [Colace] 100 mg PO DAILY 05/04/18 05/04/18 History Ergocalciferol (Vitamin D2) 50,000 unit PO Q7D 05/04/18 05/04/18 History [Vitamin D2] Famotidine 20 mg PO BID 05/04/18 05/04/18 History Metolazone [Zaroxolyn] 5 mg PO DAILY 05/04/18 05/04/18 History Zolpidem [Ambien] 10 mg PO HS PRN 05/04/18 05/04/18 History Allergies Allergy/AdvReac Type Severity Reaction Status Date / Time meperidine HCl [From [facility]] Allergy Severe Rapid Verified 05/04/18 15:05 Heart Rate/VOMITING ibuprofen [From Motrin] AdvReac Vomiting Verified 05/04/18 15:05 Physical Exam Vitals: Vital Signs Temp Pulse Pulse Resp BP BP Pulse Ox 05/05/18 08:44 80 05/05/18 08:34 84 05/05/18 08:00 98.2 F 74 14 111/61 99 05/05/18 04:46 97.7 F 84 18 97/58 99 05/05/18 03:58 80 05/05/18 00:00 101 H 16 121/78 98 05/04/18 21:24 98 05/04/18 21:14 98 05/04/18 19:55 97.7 F 99 18 100/70 97 05/04/18 18:30 98 18 106/83 99 05/04/18 17:21 98.5 F 99 18 106/83 99 05/04/18 15:14 100 05/04/18 14:59 101 H 05/04/18 14:48 101 H 05/04/18 14:14 20 05/04/18 14:12 97.7 F 72 18 128/81 85 L Intake and Output 05/04/18 05/05/18 05/05/18 22:59 06:59 14:59 Intake Total 240 Balance 240 Intake: Oral 240 Other: Voiding Method Toilet # Voids 1 Weight 60.5 kg PHYSICAL EXAMINATION: HEENT: Head is atraumatic, normocephalic. Pupils equal, round. Neck is supple. There is no elevated jugular venous pressure. HEART EXAMINATION: Heart sounds regular, S1 and S2 with a systolic murmur. CHEST EXAMINATION: Lungs with coarse wheezing and rhonchi throughout. No chest wall tenderness is noted on palpation or with deep breathing. ABDOMEN: Soft, nontender. Bowel sounds are heard. No organomegaly noted. EXTREMITIES: 2+ peripheral pulses with no evidence of peripheral edema and no calf tenderness noted. NEUROLOGIC patient is awake, alert and oriented x3. . Results 05/04/18 14:36 05/04/18 14:36 Cardiac Enzymes 05/04/18 05/04/18 Range/Units 14:36 14:36 AST 55 (17-59) U/L CK-MB (CK-2) 2.0 (0.0-2.4) ng/mL Troponin I 0.087 H* (0.000-0.034) ng/mL Coagulation 05/04/18 Range/Units 14:36 PT 11.1 (9.0-12.0) sec APTT 26.1 (22.0-30.0) sec CBC 05/04/18 Range/Units 14:36 WBC 6.9 (3.8-10.6) k/uL RBC 4.35 (4.30-5.90) m/uL Hgb 12.8 L (13.0-17.5) gm/dL Hct 41.3 (39.0-53.0) % Plt Count 175 (150-450) k/uL Comprehensive Metabolic Panel 05/04/18 Range/Units 14:36 Sodium 135 L (137-145) mmol/L Potassium 4.4 (3.5-5.1) mmol/L Chloride 98 (98-107) mmol/L Carbon Dioxide 27 (22-30) mmol/L BUN 35 H (9-20) mg/dL Creatinine 0.83 (0.66-1.25) mg/dL Glucose 182 H (74-99) mg/dL Calcium 9.3 (8.4-10.2) mg/dL AST 55 (17-59) U/L ALT 36 (21-72) U/L Alkaline Phosphatase 108 (38-126) U/L Total Protein 6.6 (6.3-8.2) g/dL Albumin 4.3 (3.5-5.0) g/dL Current Medications Generic Name Dose Route Start Last Admin Trade Name Freq PRN Reason Stop Dose Admin Hydrocodone Bitart/Acetaminophen 1 each 05/04/18 17:14 05/04/18 19:54 [place] 10 PO 1 each Q4HR PRN Administration Moderate Pain Albuterol/Ipratropium 3 ml 05/04/18 20:00 05/05/18 08:32 Duoneb 0.5 Mg-3 Mg/3 Ml Soln INHALATION 3 ml RT-Q4H JOSY Administration Docusate Sodium 100 mg 05/05/18 09:00 05/05/18 08:33 Colace PO 100 mg DAILY JOSY Administration Ergocalciferol 50,000 unit 05/08/18 09:00 Vitamin D2 PO Q7D JOSY Famotidine 20 mg 05/04/18 21:00 05/05/18 08:33 Pepcid PO 20 mg BID JOSY Administration Furosemide 40 mg 05/05/18 09:00 05/05/18 08:33 Lasix PO 40 mg BID@0900,1600 JOSY Administration Sodium Chloride 1,000 mls @ 20 mls/hr 05/04/18 17:15 05/04/18 19:46 Saline 0.9% IV Not Given .Q24H JOSY Insulin Human Regular 100 unit 101 mls @ 0 mls/hr 05/05/18 06:30 05/05/18 07: 01 / Sodium Chloride IV 30 ml/hr .Q0M JOSY 30 mls/hr Administration Protocol Titrate Loratadine 10 mg 05/05/18 09:00 05/05/18 08:33 Claritin PO 10 mg DAILY JOSY Administration Methylprednisolone Sodium Succinate 40 mg 05/05/18 08:00 05/05/18 08:28 Solu-Medrol IV Not Given Q8HR [facility] Metolazone 5 mg 05/05/18 09:00 Zaroxolyn PO DAILY [facility] Pregabalin 150 mg 05/04/18 22:00 05/05/18 08:33 Lyrica PO 150 mg TID JOSY Administration Zolpidem Tartrate 10 mg 05/04/18 17:14 Ambien PO HS PRN Insomnia Intake and Output 05/04/18 05/05/18 05/05/18 22:59 06:59 14:59 Intake Total 240 Balance 240 Intake: Oral 240 Other: Voiding Method Toilet # Voids 1 Weight 60.5 kg 05/04/18 14:36 05/04/18 14:36 Assessment and Plan Assessment: #1 symptoms of weakness, fatigue and sleepiness #2 nonischemic cardiomyopathy #3 chronic systolic congestive heart failure #4 Acute exacerbation COPD #5 diabetes mellitus #6 diaphragmatic paralysis Plan: From cardiology's perspective, medications were reviewed and we will resume home dose of Toprol XL and Aldactone. Patient appears to be euvolemic at this time. Hold Metolazone. Continue to hold lisinopril as we will check coverage for Entresto. If he has coverage we will start Entresto 24/ BID. Monitor renal function and electrolytes. We'll continue to follow patient by further recommendations accordingly. OPERATIONS FORESTER note has been reviewed, I agree with a documented findings and plan of care. Patient was seen and examined.
[2018-05-05 11:39] LABS: Glucose,Whole Blood 292 mg/dL (75-99)
[2018-05-05 12:02] LABS: Glucose,Whole Blood 236 mg/dL (75-99)
[2018-05-05] MEDS: INSULIN ASPART (NovoLOG) 100 UNIT/ML VIAL SQ SCH ×2 (12:11→17:33)
[2018-05-05 14:03] LABS: Glucose,Whole Blood 176 mg/dL (75-99)
[2018-05-05 16:13] LABS: Glucose,Whole Blood 96 mg/dL (75-99)
[2018-05-05] MEDS: SPIRONOLACTONE 25 MG TAB PO SCH (16:24)
[2018-05-05] MEDS ORDERED: SALINE NASAL GEL 14.1 GM TUBE TOPICAL PRN (16:36)
--- NOTE | 2018-05-05 16:41 | P.CNPUL ---
History of Present Illness Consult date: 05/05/18 Reason for consult: COPD History of present illness: 57-year-old male patient with known history of advanced COPD, chronic hypoxic respiratory failure, severe cardiomyopathy and the patient has an AICD in place , previous history of chronic pancreatitis, chronic weight loss, who happens to continue to smoke cigarettes despite our ongoing recommendations. The patient is a recovering alcoholic in addition. He is a very pleasant gentleman. He comes into the hospital because of generalized weakness. Apparently he was having increased swelling in lower extremities and based on that his diuretic dose has been adjusted and the patient was given aggressive diuresis on outpatient basis. Subsequently he felt very weak and tired and lethargic. He was getting also more sleepy. No fever. No chills. No significant sputum production. No chest pain. No pleurisy. No angina. He comes into the hospital and the patient's BNP level is 16,000. Renal function is stable within normal limits. Influenza screen was negative. Chest x-ray does not show any acute abnormalities. Affect on his nonelevated. EKG showing a sinus rhythm with a premature ventricular beats and left anterior fascicular block. There is also prolongation of the QT interval. The patient was seen by cardiology. The patient was found to be stable from a CHF standpoint. No significant fluid overload. He is on oral Lasix 40 mg twice a day. He is also on Entresto , and Aldactone. He is receiving IV Solu Medrol regarding COPD exacerbation. He has a congested cough. His blood sugars are slightly elevated today to systemic steroid use and the patient is currently on insulin drip for blood sugar control. Review of Systems Constitutional: Reports chronic pain, Reports fatigue, Reports poor appetite, Reports weakness, Reports weight gain Eyes: denies blurred vision, denies decreased vision Ears: deny: decreased hearing Ears, nose, mouth and throat: Denies headache, Denies sore throat Cardiovascular: Reports dyspnea on exertion, Reports leg edema, Reports shortness of breath Respiratory: Reports congestion, Reports cough, Reports dyspnea, Reports home oxygen, Reports wheezing, and the patient is chronically short of breath and the patient has chronic hypoxic respiratory failure. Gastrointestinal: Reports bloating Genitourinary: Reports urinary frequency Musculoskeletal: Reports low back pain Musculoskeletal: bilateral: ankle swelling, foot swelling Integumentary: Reports color changes Neurological: Reports weakness Psychiatric: Reports anxiety, Reports irritability Endocrine: Reports high blood sugars Hematologic/Lymphatic: Reports as per HPI Allergic/Immunologic: Reports as per HPI Past Medical History Past Medical History: Heart Failure, COPD, Diabetes Mellitus, GERD/Reflux, Pneumonia, Renal Disease Additional Past Medical History / Comment(s): Severe COPD, chronic hypoxic respiratory failure, cardiomyopathy, AICD placement, chronic alcoholism, chronic pancreatitis, diabetes mellitus, hypertension, hyperlipidemia, chronic smoker, chronic pancreatic insufficiency with malabsorption, pancreatic pseudocyst, history of degenerative arthritis, history of bone infection, history of perforated left tympanic membranes History of Any Multi-Drug Resistant Organisms: None Reported Past Surgical History: AICD Past Anesthesia/Blood Transfusion Reactions: No Reported Reaction Type of Cardiac Device: AICD Device Placement Date:: UNKNOWN Past Psychological History: No Psychological Hx Reported Additional Psychological History / Comment(s): pt lives alone uses 02 4 liters n /c. has home care services but not sure of the name of company. also has a nebulizer, glucometer.independant/ drives occ or sisters take him to appts. Smoking Status: Current every day smoker Past Alcohol Use History: None Reported Additional Past Alcohol Use History / Comment(s): started smoking age 8, smoked 2 ppd, quit 2014 after severl attempts to quit then restarted - smokes 8 cig per day, denies any current alcohol use Past Drug Use History: None Reported Additional Drug Use History / Comment(s): in the used cocaine. - Past Family History Father Family Medical History: Congestive Heart Failure (CHF), COPD, Diabetes Mellitus Additional Family Medical History / Comment(s): mrsa, gbs, asbestoes exposure/ lings Mother Family Medical History: Diabetes Mellitus, Hypertension Medications and Allergies Home Medications Medication Instructions Recorded Confirmed Type HYDROcodone/APAP 10-325MG [[place] 1 tab PO Q4HR PRN 03/22/18 05/04/18 History 10-325] Insulin Degludec [Tresiba 28 unit SQ DAILY 03/22/18 05/04/18 History Flextouch U-200] Insulin Lispro [humaLOG Kwikpen] See Protocol SQ ACHS 03/22/18 05/04/18 History Pregabalin [Lyrica] 150 mg PO TID 03/22/18 05/04/18 History Albuterol Nebulized [Ventolin 2.5 mg INHALATION RT-QID PRN nebu 03/24/18 Rx Nebulized] Cetirizine HCl [Zyrtec] 10 mg PO DAILY 05/04/18 05/04/18 History Docusate [Colace] 100 mg PO DAILY 05/04/18 05/04/18 History Ergocalciferol (Vitamin D2) 50,000 unit PO Q7D 05/04/18 05/04/18 History [Vitamin D2] Famotidine 20 mg PO BID 05/04/18 05/04/18 History Metolazone [Zaroxolyn] 5 mg PO DAILY 05/04/18 05/04/18 History Zolpidem [Ambien] 10 mg PO HS PRN 05/04/18 05/04/18 History Allergies Allergy/AdvReac Type Severity Reaction Status Date / Time meperidine HCl [From Demerol] Allergy Severe Rapid Verified 05/04/18 15:05 Heart Rate/VOMITING ibuprofen [From Motrin] AdvReac Vomiting Verified 05/04/18 15:05 Physical Exam Vitals: Vital Signs Temp Pulse Pulse Resp BP BP Pulse Ox 05/05/18 16:30 98.2 F 68 16 114/67 96 05/05/18 16:28 73 05/05/18 16:00 73 16 122/68 99 05/05/18 12:00 98 F 80 72 16 114/70 100 05/05/18 11:53 78 05/05/18 08:44 80 05/05/18 08:34 84 05/05/18 08:30 74 14 05/05/18 08:00 98.2 F 74 14 111/61 99 05/05/18 04:46 97.7 F 84 18 97/58 99 05/05/18 03:58 80 05/05/18 00:00 101 H 16 121/78 98 05/04/18 21:24 98 05/04/18 21:14 98 05/04/18 19:55 97.7 F 99 18 100/70 97 05/04/18 18:30 98 18 106/83 99 05/04/18 17:21 98.5 F 99 18 106/83 99 Intake and Output 05/05/18 05/05/18 05/05/18 06:59 14:59 22:59 Intake Total 701 Balance 701 Intake: Intake, IV Titration 101 Amount Insulin Regular 100 unit 101 In Sodium Chloride 0.9% 100 ml @ Titrate IV .Q0M [facility] Rx#:[id number] Oral 600 Other: Voiding Method Toilet # Voids 1 1 Weight 60.5 kg 60.5 kg - Constitutional General appearance: cooperative, disheveled, mild distress - EENT Eyes: EOMI, PERRLA, poor dentition Ears: bilateral: normal - Neck Neck: normal ROM Carotids: bilateral: upstroke normal Thyroid: bilateral: normal size - Respiratory Respiratory: bilateral: diminished, rales, wheezing, prolonged expiration - Cardiovascular Rhythm: regular Heart sounds: normal: S1, S2 Abnormal Heart Sounds: systolic murmur - Gastrointestinal General gastrointestinal: normal bowel sounds - Integumentary Integumentary: normal turgor - Neurologic Neurologic: CNII-XII intact - Musculoskeletal Musculoskeletal: generalized weakness - Psychiatric Psychiatric: A&O x's 3, appropriate affect, intact judgment & insight Results - Laboratory Findings CBC and BMP: 05/04/18 14:36 05/04/18 14:36 PT/INR, D-dimer PT 11.1 sec (9.0-12.0) 05/04/18 14:36 INR 1.0 (<1.2) 05/04/18 14:36 Abnormal lab findings: Abnormal Labs 05/04/18 05/04/18 05/04/18 14:36 14:36 14:36 Hgb 12.8 L MCHC 30.9 L Sodium 135 L BUN 35 H Glucose 182 H POC Glucose (mg/dL) Magnesium 2.7 H Troponin I 0.087 H* 05/04/18 05/05/18 05/05/18 20:06 06:01 06:03 Hgb MCHC Sodium BUN Glucose POC Glucose (mg/dL) 274 H 552 H 583 H Magnesium Troponin I 05/05/18 05/05/18 05/05/18 06:44 07:30 08:05 Hgb MCHC Sodium BUN Glucose POC Glucose (mg/dL) 540 H 502 H 529 H Magnesium Troponin I 05/05/18 05/05/18 05/05/18 08:32 09:02 10:02 Hgb MCHC Sodium BUN Glucose POC Glucose (mg/dL) 441 H 448 H 407 H Magnesium Troponin I 05/05/18 05/05/18 05/05/18 10:33 11:01 11:35 Hgb MCHC Sodium BUN Glucose POC Glucose (mg/dL) 363 H 349 H 292 H Magnesium Troponin I 05/05/18 05/05/18 11:59 14:01 Hgb MCHC Sodium BUN Glucose POC Glucose (mg/dL) 236 H 176 H Magnesium Troponin I - Diagnostic Findings Chest x-ray: image reviewed Assessment and Plan Assessment: Impression: 1 # severe COPD with chronic hypoxic respiratory failure. The patient has chronic exertional dyspnea. He may have a mild component of COPD exacerbation. His CHF is currently inactive in stable. No signs of any fluid overload. Chest x-ray shows no acute abnormality is on a chronic COPD. #2 generalized weakness, probably related to aggressive diuresis as the patient was offered on outpatient basis #3 History of severe nonischemic cardiomyopathy with previous ejection fraction 30%, more recently 45%. Status post AICD placement. #4 History of alcoholism. Currently a non-alcohol drinker #5 History of chronic pancreatitis with pseudocysts. #6 Diabetes mellitus with steroid-induced hyperglycemia. #7 Hypertension. #8 Hyperlipidemia. #9 Chronic tobacco dependence. #10 Progressive weight loss secondary to chronic malabsorption #11 steroid-induced hyperglycemia Plan Agree on the current treatment. Unfortunately the patient has developed some steroid-induced hyperglycemia. The patient is currently on insulin. At a time of discharge, with suggest putting the patient a prednisone burst taper and starting at a dose of 30 mg by mouth daily. Insulin may be discontinued and the patient can go back to his long-acting insulin regimen. Continue Lasix, Zaroxolyn and Aldactone regimen outpatient basis. His CHF is stable. His EF is improved. We'll continue to follow.
[2018-05-05 17:06] LABS: Glucose,Whole Blood 138 mg/dL (75-99)
[2018-05-05 17:21] LABS: Hemoglobin A1C 11.5 % (4.0-6.0)
[2018-05-05 18:15] LABS: Glucose,Whole Blood 230 mg/dL (75-99)
[2018-05-05 20:17] LABS: Glucose,Whole Blood 156 mg/dL (75-99)
[2018-05-05] MEDS: guaiFENesin-DM 100-10MG/5ML 10 ML CUP PO SCH ×2 (20:38→23:26)
[2018-05-05] MEDS: SACUBITRIL/VALSARTAN 24 MG-26 MG TABLET PO SCH (20:45)
[2018-05-05] MEDS: SODIUM CHLORIDE 0.9% 1,000 ML IV SCH (22:03)
[2018-05-05 22:29] LABS: Glucose,Whole Blood 206 mg/dL (75-99)
[2018-05-06 00:27] LABS: Glucose,Whole Blood 171 mg/dL (75-99)
[2018-05-06 02:25] LABS: Glucose,Whole Blood 121 mg/dL (75-99)
[2018-05-06 03:50] LABS: Glucose,Whole Blood 123 mg/dL (75-99)
[2018-05-06] MEDS: IPRATROPIUM-ALBUTEROL 3 ML NEB INHALATION SCH ×6 (04:18→23:34)
[2018-05-06] MEDS: guaiFENesin-DM 100-10MG/5ML 10 ML CUP PO SCH ×4 (04:45→21:26)
[2018-05-06 05:06] LABS: Glucose,Whole Blood 178 mg/dL (75-99)
[2018-05-06 07:10] LABS: Glucose,Whole Blood 133 mg/dL (75-99)
[2018-05-06] MEDS: INSULIN ASPART (NovoLOG) 100 UNIT/ML VIAL SQ SCH ×4 (07:48→21:30)
[2018-05-06 08:14] LABS: Albumin 3.4 g/dL (3.5-5.0); Calcium 8.6 mg/dL (8.4-10.2); Potassium 4.8 mmol/L (3.5-5.1); Total Bilirubin 0.5 mg/dL (0.2-1.3); Total Protein 5.5 g/dL (6.3-8.2)
[2018-05-06 09:00] LABS: Glucose,Whole Blood 134 mg/dL (75-99)
[2018-05-06] MEDS: PREGABALIN 75 MG CAP PO SCH ×3 (10:04→21:29)
[2018-05-06] MEDS: LORATADINE 10 MG TAB PO SCH (10:04)
[2018-05-06] MEDS: FAMOTIDINE 20 MG TAB PO SCH ×2 (10:04→21:30)
[2018-05-06] MEDS: SPIRONOLACTONE 25 MG TAB PO SCH (10:04)
[2018-05-06] MEDS: DOCUSATE 100 MG CAP PO SCH (10:04)
[2018-05-06] MEDS: METOPROLOL SUCCINATE (ER) 25 MG TAB.ER.24H PO SCH (10:04)
[2018-05-06] MEDS: FUROSEMIDE 40 MG TAB PO SCH (10:05)
[2018-05-06] MEDS: HYDROcodone/APAP 10-325MG 1 EACH TAB PO PRN ×2 (10:05→16:23)
[2018-05-06] MEDS: SACUBITRIL/VALSARTAN 24 MG-26 MG TABLET PO SCH (10:05)
[2018-05-06] MEDS: methylPREDNISolone SOD SUCCI 40 MG/ML 1 ML VIAL IV SCH (10:05)
[2018-05-06 11:23] LABS: Glucose,Whole Blood 109 mg/dL (75-99)
--- NOTE | 2018-05-06 11:26 | P.PN ---
Subjective Patient is admitted for COPD exacerbation patient has advanced COPD he is fully steroids and patient is still wheezing declining to use IV steroids because of his concerns of elevated blood sugars. And will be started on oral steroids and patient is agreeable to take oral prednisone once a day. Patient will be resumed on his insulin home regimen along with sliding scale IV insulin will be discontinued. Patient became hyponatremic and the worsening creatinine because of which IV Lasix and the Aldactone will be discontinued. I'll leave the decision of continuation of entresto to cardiology. Patient wanted to go home he says he feels okay. Constitutional: Denied any fatigue denied any fever. Cardio vascular: denied any chest pain, palpitations Gastrointestinal denied any nausea vomiting Pulmonary: Mentioned in HPI Neurologic denied any new focal deficits All inpatient medications were reviewed and appropriate changes in these medications as dictated in the interval history and assessment and plan. Objective - Vital Signs Vital signs: Vital Signs Temp 97.8 F 05/06/18 08:00 Pulse 84 05/06/18 11:19 Resp 18 05/06/18 08:00 BP 90/52 05/06/18 08:00 Pulse Ox 94 L 05/06/18 08:00 Intake & Output 05/05/18 05/06/18 05/06/18 18:59 06:59 18:59 Intake Total 941 29.691 5.467 Balance 941 29.691 5.467 Weight 60.5 kg 63.1 kg Intake: Intake, IV Titration 101 29.691 5.467 Amount Insulin Regular 100 unit 101 29.691 5.467 In Sodium Chloride 0.9% 100 ml @ Titrate IV .Q0M [facility] Rx#:[id number] Oral 840 Other: Voiding Method Toilet Toilet Toilet # Voids 1 1 - Exam PHYSICAL EXAMINATION: GENERAL: The patient is alert and oriented x3, not in any acute distress. Well developed, well nourished. HEENT: Pupils are round and equally reacting to light. EOMI. No scleral icterus. No conjunctival pallor. Normocephalic, atraumatic. No pharyngeal erythema. No thyromegaly. CARDIOVASCULAR: S1 and S2 present. No murmurs, rubs, or gallops. PULMONARY: Decreased air entry rhonchus breath sounds and expiratory wheezing on 4 L of oxygen. ABDOMEN: Soft, nontender, nondistended, normoactive bowel sounds. No palpable organomegaly. MUSCULOSKELETAL: No joint swelling or deformity. EXTREMITIES: No cyanosis, clubbing, or pedal edema. NEUROLOGICAL: Gross neurological examination did not reveal any focal deficits. SKIN: No rashes. - Labs CBC & Chem 7: 05/04/18 14:36 05/06/18 06:57 Labs: Abnormal Lab Results - Last 24 Hours (Table) 05/04/18 05/05/18 05/05/18 Range/Units 14:36 11:35 11:59 Sodium (137-145) mmol/L Chloride (98-107) mmol/L BUN (9-20) mg/dL Creatinine (0.66-1.25) mg/dL Glucose (74-99) mg/dL POC Glucose (mg/dL) 292 H 236 H (75-99) mg/dL Hemoglobin A1c 11.5 H (4.0-6.0) % Total Protein (6.3-8.2) g/dL Albumin (3.5-5.0) g/dL 05/05/18 05/05/18 05/05/18 Range/Units 14:01 17:04 18:13 Sodium (137-145) mmol/L Chloride (98-107) mmol/L BUN (9-20) mg/dL Creatinine (0.66-1.25) mg/dL Glucose (74-99) mg/dL POC Glucose (mg/dL) 176 H 138 H 230 H (75-99) mg/dL Hemoglobin A1c (4.0-6.0) % Total Protein (6.3-8.2) g/dL Albumin (3.5-5.0) g/dL 05/05/18 05/05/18 05/06/18 Range/Units 20:16 22:27 00:25 Sodium (137-145) mmol/L Chloride (98-107) mmol/L BUN (9-20) mg/dL Creatinine (0.66-1.25) mg/dL Glucose (74-99) mg/dL POC Glucose (mg/dL) 156 H 206 H 171 H (75-99) mg/dL Hemoglobin A1c (4.0-6.0) % Total Protein (6.3-8.2) g/dL Albumin (3.5-5.0) g/dL 05/06/18 05/06/18 05/06/18 Range/Units 02:25 03:47 04:53 Sodium (137-145) mmol/L Chloride (98-107) mmol/L BUN (9-20) mg/dL Creatinine (0.66-1.25) mg/dL Glucose (74-99) mg/dL POC Glucose (mg/dL) 121 H 123 H 178 H (75-99) mg/dL Hemoglobin A1c (4.0-6.0) % Total Protein (6.3-8.2) g/dL Albumin (3.5-5.0) g/dL 05/06/18 05/06/18 05/06/18 Range/Units 06:57 07:06 08:58 Sodium 126 L (137-145) mmol/L Chloride 89 L (98-107) mmol/L BUN 50 H (9-20) mg/dL Creatinine 1.27 H (0.66-1.25) mg/dL Glucose 132 H (74-99) mg/dL POC Glucose (mg/dL) 133 H 134 H (75-99) mg/dL Hemoglobin A1c (4.0-6.0) % Total Protein 5.5 L (6.3-8.2) g/dL Albumin 3.4 L (3.5-5.0) g/dL Microbiology - Last 24 Hours (Table) 05/04/18 14:36 Blood Culture - Preliminary Blood No Growth after 24 hours Assessment and Plan Plan: COPD with acute exacerbation patient has acute on chronic hypercapnic respiratory failure secondary to COPD exacerbation patient the his advanced COPD isn't requiring 4 L of onset and continuous systemic steroids but will be switched to oral and continue with inhalational treatments -Generalized weakness due to aggressive diuresis diuretics will be held -Acute renal failure,: Secondary to excessive diuretic therapy is diuretic therapy will be held patient is hypovolemic patient's serum creatinine has gone up and patient serum sodium is low -Severe nonischemic edema with ejection fraction of 30% and recent one being 45 % patient has an AICD my diuretic therapy will be discontinued because of above- mentioned reasons will monitor basic metabolic profile tomorrow -History of alcoholism quit drinking for a while ago -History of pancreatic pseudocyst next and-type 2 diabetes mellitus uncontrolled and elevated blood sugars system is a secondary to systemic steroids further management as mentioned in the interval history -Hypertension next and epinephrine hyperlipidemia
[2018-05-06] MEDS: predniSONE 20 MG TAB PO SCH (13:06)
--- NOTE | 2018-05-06 14:56 | P.PN ---
Subjective Progress Note Date: 05/06/18 Principal diagnosis: Acute on chronic hypoxic respiratory failure secondary to COPD exacerbation 57-year-old male patient with known history of advanced COPD, chronic hypoxic respiratory failure, severe cardiomyopathy and the patient has an AICD in place , previous history of chronic pancreatitis, chronic weight loss, who happens to continue to smoke cigarettes despite our ongoing recommendations. The patient is a recovering alcoholic in addition. He is a very pleasant gentleman. He comes into the hospital because of generalized weakness. Apparently he was having increased swelling in lower extremities and based on that his diuretic dose has been adjusted and the patient was given aggressive diuresis on outpatient basis. Subsequently he felt very weak and tired and lethargic. He was getting also more sleepy. No fever. No chills. No significant sputum production. No chest pain. No pleurisy. No angina. He comes into the hospital and the patient's BNP level is 16,000. Renal function is stable within normal limits. Influenza screen was negative. Chest x-ray does not show any acute abnormalities. Affect on his nonelevated. EKG showing a sinus rhythm with a premature ventricular beats and left anterior fascicular block. There is also prolongation of the QT interval. The patient was seen by cardiology. The patient was found to be stable from a CHF standpoint. No significant fluid overload. He is on oral Lasix 40 mg twice a day. He is also on Entresto , and Aldactone. He is receiving IV Solu Medrol regarding COPD exacerbation. He has a congested cough. His blood sugars are slightly elevated today to systemic steroid use and the patient is currently on insulin drip for blood sugar control. The patient is seen today 05/06/2018 in follow-up on the selective care unit. He is awake and alert in no acute distress. He is breathing easier today as compared to yesterday. So with a dry nonproductive cough. Currently maintaining good O2 saturations in the mid 90s on 4 L/m per nasal cannula. He' s afebrile. Blood culture reveals no growth. Sodium 126, creatinine 1.27. Currently in a negative balance. Objective - Vital Signs Vital signs: Vital Signs Temp 97.7 F 05/06/18 12:00 Pulse 94 05/06/18 12:00 Resp 18 05/06/18 12:00 BP 80/58 05/06/18 12:00 Pulse Ox 95 05/06/18 12:00 Intake & Output 05/05/18 05/06/18 05/06/18 18:59 06:59 18:59 Intake Total 941 29.691 965.467 Output Total 1200 Balance 941 29.691 -234.533 Weight 60.5 kg 63.1 kg Intake: Intake, IV Titration 101 29.691 5.467 Amount Insulin Regular 100 unit 101 29.691 5.467 In Sodium Chloride 0.9% 100 ml @ Titrate IV .Q0M [facility] Rx#:[id number] Oral 840 960 Output: Urine 1200 Other: Voiding Method Toilet Toilet Toilet # Voids 1 1 - Exam GENERAL EXAM: Alert, active, comfortable in no apparent distress. Appears older than stated age. On 4 L/m per nasal cannula. HEAD: Normocephalic. EYES: Normal reaction of pupils, equal size. NOSE: Clear with pink turbinates. THROAT: No erythema or exudates. NECK: No masses, no JVD. CHEST: No chest wall deformity. LUNGS: Equal air entry with faint end expiratory wheeze, diminished.. CVS: S1 and S2 normal with no audible murmur, regular rhythm. ABDOMEN: No hepatosplenomegaly, normal bowel sounds, no guarding or rigidity. SPINE: No scoliosis or deformity SKIN: No rashes CENTRAL NERVOUS SYSTEM: No focal deficits, tone is normal in all 4 extremities. EXTREMITIES: There is 2+ peripheral edema. No clubbing, no cyanosis. Peripheral pulses are intact. - Labs CBC & Chem 7: 05/04/18 14:36 05/06/18 06:57 Labs: Abnormal Lab Results - Last 24 Hours (Table) 05/04/18 05/05/18 05/05/18 Range/Units 14:36 17:04 18:13 Sodium (137-145) mmol/L Chloride (98-107) mmol/L BUN (9-20) mg/dL Creatinine (0.66-1.25) mg/dL Glucose (74-99) mg/dL POC Glucose (mg/dL) 138 H 230 H (75-99) mg/dL Hemoglobin A1c 11.5 H (4.0-6.0) % Total Protein (6.3-8.2) g/dL Albumin (3.5-5.0) g/dL 05/05/18 05/05/18 05/06/18 Range/Units 20:16 22:27 00:25 Sodium (137-145) mmol/L Chloride (98-107) mmol/L BUN (9-20) mg/dL Creatinine (0.66-1.25) mg/dL Glucose (74-99) mg/dL POC Glucose (mg/dL) 156 H 206 H 171 H (75-99) mg/dL Hemoglobin A1c (4.0-6.0) % Total Protein (6.3-8.2) g/dL Albumin (3.5-5.0) g/dL 05/06/18 05/06/18 05/06/18 Range/Units 02:25 03:47 04:53 Sodium (137-145) mmol/L Chloride (98-107) mmol/L BUN (9-20) mg/dL Creatinine (0.66-1.25) mg/dL Glucose (74-99) mg/dL POC Glucose (mg/dL) 121 H 123 H 178 H (75-99) mg/dL Hemoglobin A1c (4.0-6.0) % Total Protein (6.3-8.2) g/dL Albumin (3.5-5.0) g/dL 05/06/18 05/06/18 05/06/18 Range/Units 06:57 07:06 08:58 Sodium 126 L (137-145) mmol/L Chloride 89 L (98-107) mmol/L BUN 50 H (9-20) mg/dL Creatinine 1.27 H (0.66-1.25) mg/dL Glucose 132 H (74-99) mg/dL POC Glucose (mg/dL) 133 H 134 H (75-99) mg/dL Hemoglobin A1c (4.0-6.0) % Total Protein 5.5 L (6.3-8.2) g/dL Albumin 3.4 L (3.5-5.0) g/dL 05/06/18 Range/Units 11:21 Sodium (137-145) mmol/L Chloride (98-107) mmol/L BUN (9-20) mg/dL Creatinine (0.66-1.25) mg/dL Glucose (74-99) mg/dL POC Glucose (mg/dL) 109 H (75-99) mg/dL Hemoglobin A1c (4.0-6.0) % Total Protein (6.3-8.2) g/dL Albumin (3.5-5.0) g/dL Microbiology - Last 24 Hours (Table) 05/04/18 14:36 Blood Culture - Preliminary Blood No Growth after 24 hours Assessment and Plan Assessment: Impression: #1 severe COPD with chronic hypoxic respiratory failure. The patient has chronic exertional dyspnea. He may have a mild component of COPD exacerbation. His CHF is currently inactive in stable. No signs of any fluid overload. Chest x-ray shows no acute abnormality is on a chronic COPD. #2 generalized weakness, probably related to aggressive diuresis as the patient was offered on outpatient basis #3 History of severe nonischemic cardiomyopathy with previous ejection fraction 30%, more recently 45%. Status post AICD placement. #4 History of alcoholism. Currently a non-alcohol drinker #5 History of chronic pancreatitis with pseudocysts. #6 Diabetes mellitus with steroid-induced hyperglycemia. #7 Hypertension. #8 Hyperlipidemia. #9 Chronic tobacco dependence. #10 Progressive weight loss secondary to chronic malabsorption #11 steroid-induced hyperglycemia Plan: The patient was seen and evaluated by Dr. Khanna. He is noted to be hyponatremic. We will increase his 0.9 normal saline at 50 MLS per hour. He was his current medications. Continue to monitor his blood glucose. We'll increase his activity as tolerated. We'll continue to follow. I, the cosigning physician, performed a history & physical examination of the patient. Lungs sounds with faint end expiratory wheeze, diminished. Maintaining good O2 saturations in the 90s on 4 L/m per nasal cannula. I discussed the assessment and plan of care with my nurse practitioner, Elenita Anne. I attest to the above note as dictated by her.
--- NOTE | 2018-05-06 16:18 | P.PN ---
Subjective Progress Note Date: 05/06/18 This is a pleasant 57-year-old gentleman who follows with Dr. Be in the office. He is a history of nonischemic cardiomyopathy secondary to EtOH abuse, chronic systolic congestive heart failure, hypertension, diabetes, COPD, O2 dependence, virtually he continues to smoke, diaphragmatic paralysis, hyperlipidemia and prior single chamber AICD, chronic pancreatitis, nicotine dependence and history of alcoholism. He presented to the hospital on this admission with complaints of overall not feeling well, weakness, fatigue and day time sleepiness. The patient has been having episodes of dizziness and underwent tilt table testing in March that was negative. Chest x-ray this admission showed no evidence for acute pulmonary disease. Mr. Choudhury has chronic shortness of breath. He did have significant lower extremity and scrotal edema week or 2 ago but currently has no edema. [facility] admission showed sinus rhythm with PVCs, IVCD and a left bundle branch pattern. Laboratory values showed BUN 35, creatinine 0.83, troponin 0.087 and NT proBNP of 16,400 which is lower than previous level from November. Initially started on IV Lasix which has been changed to by mouth. Also been receiving Solu- Medrol with significant increase in blood glucose and is currently on an insulin drip. Overall, patient is not feeling much better. He continues to complain of fatigue and weakness as well as sleepiness. Also complaining of a congested cough but he is unable to expectorate sputum. 05/06/18 Patient was seen and examined today. Patient was unable to tolerate Entresto due to hypotension. Patient was noted to have elevated BUN/creatinine say of 51.27 which is up compared to yesterday. Diuretics including Aldactone on hold. Overall he verbalizes feeling somewhat better. Objective - Vital Signs Vital signs: Vital Signs Temp 97.7 F 05/06/18 12:00 Pulse 86 05/06/18 15:40 Resp 18 05/06/18 12:00 BP 80/58 05/06/18 12:00 Pulse Ox 99 05/06/18 15:31 Intake & Output 05/05/18 05/06/18 05/06/18 18:59 06:59 18:59 Intake Total 941 29.691 965.467 Output Total 1200 Balance 941 29.691 -234.533 Weight 60.5 kg 63.1 kg Intake: Intake, IV Titration 101 29.691 5.467 Amount Insulin Regular 100 unit 101 29.691 5.467 In Sodium Chloride 0.9% 100 ml @ Titrate IV .Q0M [facility] Rx#:[id number] Oral 840 960 Output: Urine 1200 Other: Voiding Method Toilet Toilet Toilet # Voids 1 1 - Exam PHYSICAL EXAMINATION: HEENT: Head is atraumatic, normocephalic. Pupils equal, round. Neck is supple. There is no elevated jugular venous pressure. HEART EXAMINATION: Heart sounds regular, S1 and S2 with a systolic murmur. CHEST EXAMINATION: Lungs with air entry bilaterally. No chest wall tenderness is noted on palpation or with deep breathing. ABDOMEN: Soft, nontender. Bowel sounds are heard. No organomegaly noted. EXTREMITIES: 2+ peripheral pulses with no evidence of peripheral edema and no calf tenderness noted. NEUROLOGIC patient is awake, alert and oriented x3. - Labs CBC & Chem 7: 05/04/18 14:36 05/06/18 06:57 Labs: Abnormal Lab Results - Last 24 Hours (Table) 05/04/18 05/05/18 05/05/18 Range/Units 14:36 17:04 18:13 Sodium (137-145) mmol/L Chloride (98-107) mmol/L BUN (9-20) mg/dL Creatinine (0.66-1.25) mg/dL Glucose (74-99) mg/dL POC Glucose (mg/dL) 138 H 230 H (75-99) mg/dL Hemoglobin A1c 11.5 H (4.0-6.0) % Total Protein (6.3-8.2) g/dL Albumin (3.5-5.0) g/dL 05/05/18 05/05/18 05/06/18 Range/Units 20:16 22:27 00:25 Sodium (137-145) mmol/L Chloride (98-107) mmol/L BUN (9-20) mg/dL Creatinine (0.66-1.25) mg/dL Glucose (74-99) mg/dL POC Glucose (mg/dL) 156 H 206 H 171 H (75-99) mg/dL Hemoglobin A1c (4.0-6.0) % Total Protein (6.3-8.2) g/dL Albumin (3.5-5.0) g/dL 05/06/18 05/06/18 05/06/18 Range/Units 02:25 03:47 04:53 Sodium (137-145) mmol/L Chloride (98-107) mmol/L BUN (9-20) mg/dL Creatinine (0.66-1.25) mg/dL Glucose (74-99) mg/dL POC Glucose (mg/dL) 121 H 123 H 178 H (75-99) mg/dL Hemoglobin A1c (4.0-6.0) % Total Protein (6.3-8.2) g/dL Albumin (3.5-5.0) g/dL 05/06/18 05/06/18 05/06/18 Range/Units 06:57 07:06 08:58 Sodium 126 L (137-145) mmol/L Chloride 89 L (98-107) mmol/L BUN 50 H (9-20) mg/dL Creatinine 1.27 H (0.66-1.25) mg/dL Glucose 132 H (74-99) mg/dL POC Glucose (mg/dL) 133 H 134 H (75-99) mg/dL Hemoglobin A1c (4.0-6.0) % Total Protein 5.5 L (6.3-8.2) g/dL Albumin 3.4 L (3.5-5.0) g/dL 05/06/18 Range/Units 11:21 Sodium (137-145) mmol/L Chloride (98-107) mmol/L BUN (9-20) mg/dL Creatinine (0.66-1.25) mg/dL Glucose (74-99) mg/dL POC Glucose (mg/dL) 109 H (75-99) mg/dL Hemoglobin A1c (4.0-6.0) % Total Protein (6.3-8.2) g/dL Albumin (3.5-5.0) g/dL Microbiology - Last 24 Hours (Table) 05/04/18 14:36 Blood Culture - Preliminary Blood No Growth after 24 hours Assessment and Plan Assessment: #1 symptoms of weakness, fatigue and sleepiness #2 nonischemic cardiomyopathy #3 chronic systolic congestive heart failure #4 Acute exacerbation COPD #5 diabetes mellitus #6 diaphragmatic paralysis Plan: From cardiology's perspective, discontinue Entresto as he cannot tolerate this due to hypotension. Hold diuretics including Aldactone today. Recheck BMP tomorrow and likely resume Aldactone at that time. Further recommendations to follow. 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 Patient was seen and examined.
[2018-05-06 16:45] LABS: Glucose,Whole Blood 63 mg/dL (75-99)
[2018-05-06 17:49] LABS: Glucose,Whole Blood 151 mg/dL (75-99)
[2018-05-06 20:41] LABS: Glucose,Whole Blood 344 mg/dL (75-99)
[2018-05-07] MEDS: SODIUM CHLORIDE 0.9% 1,000 ML IV SCH ×4 (03:16→21:43)
[2018-05-07] MEDS: IPRATROPIUM-ALBUTEROL 3 ML NEB INHALATION SCH ×6 (04:33→23:45)
[2018-05-07] MEDS: guaiFENesin-DM 100-10MG/5ML 10 ML CUP PO SCH ×4 (05:46→21:39)
[2018-05-07 06:07] LABS: Glucose,Whole Blood 203 mg/dL (75-99)
[2018-05-07] MEDS: INSULIN ASPART (NovoLOG) 100 UNIT/ML VIAL SQ SCH ×7 (06:18→21:39)
[2018-05-07 07:11] LABS: Calcium 7.5 mg/dL (8.4-10.2); Potassium 4.4 mmol/L (3.5-5.1)
[2018-05-07] MEDS: predniSONE 20 MG TAB PO SCH (08:20)
[2018-05-07] MEDS: LORATADINE 10 MG TAB PO SCH (08:20)
[2018-05-07] MEDS: METOPROLOL SUCCINATE (ER) 25 MG TAB.ER.24H PO SCH (08:20)
[2018-05-07] MEDS: DOCUSATE 100 MG CAP PO SCH (08:20)
[2018-05-07] MEDS: PREGABALIN 75 MG CAP PO SCH ×3 (08:20→21:38)
[2018-05-07] MEDS: FAMOTIDINE 20 MG TAB PO SCH ×2 (08:20→21:38)
[2018-05-07] MEDS: HYDROcodone/APAP 10-325MG 1 EACH TAB PO PRN (08:21)
--- NOTE | 2018-05-07 11:00 | P.PN ---
Subjective Patient is admitted for COPD exacerbation patient has advanced COPD he is fully steroids and patient is still wheezing declining to use IV steroids because of his concerns of elevated blood sugars. And will be started on oral steroids and patient is agreeable to take oral prednisone once a day. Patient will be resumed on his insulin home regimen along with sliding scale IV insulin will be discontinued. Patient became hyponatremic and the worsening creatinine because of which IV Lasix and the Aldactone will be discontinued. I'll leave the decision of continuation of entresto to cardiology. Patient wanted to go home he says he feels okay. 05/07/2018 Patient is pretty status improved patient served BUN and serum sodium are fairly stable no improvement patient was started on IV fluids repeat echocardiogram will be obtained to assess the ejection fraction as it showed steady improvement in the past. Entresto was discontinued. Patient was started on IV fluids gentle hydration with 75 mL per hour after 1 L and recheck serum sodium and creatinine tomorrow patient is complaining of URI like symptoms, patient has body aches will obtain influenza testing Constitutional: Denied any fatigue denied any fever. Cardio vascular: denied any chest pain, palpitations Gastrointestinal denied any nausea vomiting Pulmonary: Mentioned in HPI Neurologic denied any new focal deficits All inpatient medications were reviewed and appropriate changes in these medications as dictated in the interval history and assessment and plan. Objective - Vital Signs Vital signs: Vital Signs Temp 97.8 F 05/07/18 08:00 Pulse 84 05/07/18 09:23 Resp 20 05/07/18 08:00 BP 129/68 05/07/18 08:00 Pulse Ox 95 05/07/18 08:00 Intake & Output 05/06/18 05/07/18 05/07/18 18:59 06:59 18:59 Intake Total 1445.467 400 400 Output Total 1200 Balance 245.467 400 400 Weight 63.2 kg Intake: Intake, IV Titration 5.467 400 400 Amount Insulin Regular 100 unit 5.467 In Sodium Chloride 0.9% 100 ml @ Titrate IV .Q0M [facility] Rx#:[id number] Sodium Chloride 0.9% 1, 400 400 000 ml @ 20 mls/hr IV . Q24H [facility] Rx#:[id number] Oral 1440 Output: Urine 1200 Other: Voiding Method Toilet Toilet # Voids 1 2 - Exam PHYSICAL EXAMINATION: GENERAL: The patient is alert and oriented x3, not in any acute distress. Well developed, well nourished. HEENT: Pupils are round and equally reacting to light. EOMI. No scleral icterus. No conjunctival pallor. Normocephalic, atraumatic. No pharyngeal erythema. No thyromegaly. CARDIOVASCULAR: S1 and S2 present. No murmurs, rubs, or gallops. PULMONARY: Much clearer today with good air entry into bilateral lung smith no expiratory wheezing was appreciated today ABDOMEN: Soft, nontender, nondistended, normoactive bowel sounds. No palpable organomegaly. MUSCULOSKELETAL: No joint swelling or deformity. EXTREMITIES: No cyanosis, clubbing, or pedal edema. NEUROLOGICAL: Gross neurological examination did not reveal any focal deficits. SKIN: No rashes. - Labs CBC & Chem 7: 05/04/18 14:36 05/07/18 05:52 Labs: Abnormal Lab Results - Last 24 Hours (Table) 05/06/18 05/06/18 05/06/18 Range/Units 11:21 16:40 17:46 Sodium (137-145) mmol/L Chloride (98-107) mmol/L BUN (9-20) mg/dL Creatinine (0.66-1.25) mg/dL Glucose (74-99) mg/dL POC Glucose (mg/dL) 109 H 63 L 151 H (75-99) mg/dL Calcium (8.4-10.2) mg/dL 05/06/18 05/07/18 05/07/18 Range/Units 20:40 05:52 06:06 Sodium 125 L (137-145) mmol/L Chloride 95 L (98-107) mmol/L BUN 52 H (9-20) mg/dL Creatinine 1.39 H (0.66-1.25) mg/dL Glucose 178 H (74-99) mg/dL POC Glucose (mg/dL) 344 H 203 H (75-99) mg/dL Calcium 7.5 L (8.4-10.2) mg/dL Microbiology - Last 24 Hours (Table) 05/04/18 14:36 Blood Culture - Preliminary Blood No Growth after 48 hours Assessment and Plan Plan: COPD with acute exacerbation patient has acute on chronic hypercapnic respiratory failure secondary to COPD exacerbation patient the his advanced COPD isn't requiring 4 L of onset and continuous systemic steroids but will be switched to oral and continue with inhalational treatments -Generalized weakness due to aggressive diuresis diuretics will be held -Acute renal failure,: Secondary to excessive diuretic therapy is diuretic therapy will be held patient is hypovolemic patient's serum creatinine has gone up and patient serum sodium is low, no improvement competitors today patient was started on IV fluids as mentioned above -Severe nonischemic cardio myopathy with ejection fraction of 30% and recent one being 45% patient has an AICD my diuretic therapy will be discontinued because of above-mentioned reasons will monitor basic metabolic profile tomorrow , repeat echocardiogram today -History of alcoholism quit drinking for a while ago -History of pancreatic pseudocyst type 2 diabetes mellitus uncontrolled and elevated blood sugars system is a secondary to systemic steroids further management as mentioned in the interval history -Hypertension next and epinephrine hyperlipidemia
[2018-05-07 12:15] LABS: Glucose,Whole Blood 244 mg/dL (75-99)
--- NOTE | 2018-05-07 14:16 | P.PN ---
Subjective Progress Note Date: 05/07/18 This is a pleasant 57-year-old gentleman who follows with Dr. Be in the office. He is a history of nonischemic cardiomyopathy secondary to EtOH abuse, chronic systolic congestive heart failure, hypertension, diabetes, COPD, O2 dependence, virtually he continues to smoke, diaphragmatic paralysis, hyperlipidemia and prior single chamber AICD, chronic pancreatitis, nicotine dependence and history of alcoholism. He presented to the hospital on this admission with complaints of overall not feeling well, weakness, fatigue and day time sleepiness. The patient has been having episodes of dizziness and underwent tilt table testing in March that was negative. Chest x-ray this admission showed no evidence for acute pulmonary disease. Mr. Choudhury has chronic shortness of breath. He did have significant lower extremity and scrotal edema week or 2 ago but currently has no edema. [facility] admission showed sinus rhythm with PVCs, IVCD and a left bundle branch pattern. Laboratory values showed BUN 35, creatinine 0.83, troponin 0.087 and NT proBNP of 16,400 which is lower than previous level from November. Initially started on IV Lasix which has been changed to by mouth. Also been receiving Solu- Medrol with significant increase in blood glucose and is currently on an insulin drip. Overall, patient is not feeling much better. He continues to complain of fatigue and weakness as well as sleepiness. Also complaining of a congested cough but he is unable to expectorate sputum. 05/06/18 Patient was seen and examined today. Patient was unable to tolerate Entresto due to hypotension. Patient was noted to have elevated BUN/creatinine say of 51.27 which is up compared to yesterday. Diuretics including Aldactone on hold. Overall he verbalizes feeling somewhat better. 05/07/18 The patient was seen and examined today. Diuretics including Aldactone and continue to be on hold. Entresto was discontinued yesterday. Vital signs are stable. A evaluation a sodium of 125 with worsening renal function with a BUN of 52 and creatinine 1.39. He's been ordered to have 1 L fluids by primary. Objective - Vital Signs Vital signs: Vital Signs Temp 97.6 F 05/07/18 11:46 Pulse 82 05/07/18 13:01 Resp 20 05/07/18 11:46 BP 104/59 05/07/18 11:46 Pulse Ox 98 05/07/18 11:46 Intake & Output 05/06/18 05/07/18 05/07/18 18:59 06:59 18:59 Intake Total 1445.467 400 400 Output Total 1200 Balance 245.467 400 400 Weight 63.2 kg Intake: Intake, IV Titration 5.467 400 400 Amount Insulin Regular 100 unit 5.467 In Sodium Chloride 0.9% 100 ml @ Titrate IV .Q0M [facility] Rx#:[id number] Sodium Chloride 0.9% 1, 400 400 000 ml @ 20 mls/hr IV . Q24H [facility] Rx#:[id number] Oral 1440 Output: Urine 1200 Other: Voiding Method Toilet Toilet # Voids 1 2 - Exam PHYSICAL EXAMINATION: HEENT: Head is atraumatic, normocephalic. Pupils equal, round. Neck is supple. There is no elevated jugular venous pressure. HEART EXAMINATION: Heart sounds regular, S1 and S2 with a systolic murmur. CHEST EXAMINATION: Lungs with diminished air entry bilaterally. No chest wall tenderness is noted on palpation or with deep breathing. ABDOMEN: Soft, nontender. Bowel sounds are heard. No organomegaly noted. EXTREMITIES: 2+ peripheral pulses with no evidence of peripheral edema and no calf tenderness noted. NEUROLOGIC patient is awake, alert and oriented x3. - Labs CBC & Chem 7: 05/04/18 14:36 05/07/18 05:52 Labs: Abnormal Lab Results - Last 24 Hours (Table) 05/06/18 05/06/18 05/06/18 Range/Units 16:40 17:46 20:40 Sodium (137-145) mmol/L Chloride (98-107) mmol/L BUN (9-20) mg/dL Creatinine (0.66-1.25) mg/dL Glucose (74-99) mg/dL POC Glucose (mg/dL) 63 L 151 H 344 H (75-99) mg/dL Calcium (8.4-10.2) mg/dL 05/07/18 05/07/18 05/07/18 Range/Units 05:52 06:06 11:45 Sodium 125 L (137-145) mmol/L Chloride 95 L (98-107) mmol/L BUN 52 H (9-20) mg/dL Creatinine 1.39 H (0.66-1.25) mg/dL Glucose 178 H (74-99) mg/dL POC Glucose (mg/dL) 203 H 244 H (75-99) mg/dL Calcium 7.5 L (8.4-10.2) mg/dL Microbiology - Last 24 Hours (Table) 05/04/18 14:36 Blood Culture - Preliminary Blood No Growth after 48 hours Assessment and Plan Assessment: #1 symptoms of weakness, fatigue and sleepiness #2 nonischemic cardiomyopathy #3 chronic systolic congestive heart failure #4 Acute exacerbation COPD #5 diabetes mellitus #6 diaphragmatic paralysis Plan: From cardiology's perspective, continue to hold diuretics. Continue to monitor renal function and electrolytes. We will continue to follow the patient and provide further recommendations accordingly. 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 Patient was seen and examined.
--- NOTE | 2018-05-07 17:05 | P.PN ---
Subjective Progress Note Date: 05/07/18 57-year-old male patient with known history of advanced COPD, chronic hypoxic respiratory failure, severe cardiomyopathy and the patient has an AICD in place , previous history of chronic pancreatitis, chronic weight loss, who happens to continue to smoke cigarettes despite our ongoing recommendations. The patient is a recovering alcoholic in addition. He is a very pleasant gentleman. He comes into the hospital because of generalized weakness. Apparently he was having increased swelling in lower extremities and based on that his diuretic dose has been adjusted and the patient was given aggressive diuresis on outpatient basis. Subsequently he felt very weak and tired and lethargic. He was getting also more sleepy. No fever. No chills. No significant sputum production. No chest pain. No pleurisy. No angina. He comes into the hospital and the patient's BNP level is 16,000. Renal function is stable within normal limits. Influenza screen was negative. Chest x-ray does not show any acute abnormalities. Affect on his nonelevated. EKG showing a sinus rhythm with a premature ventricular beats and left anterior fascicular block. There is also prolongation of the QT interval. The patient was seen by cardiology. The patient was found to be stable from a CHF standpoint. No significant fluid overload. He is on oral Lasix 40 mg twice a day. He is also on Entresto , and Aldactone. He is receiving IV Solu Medrol regarding COPD exacerbation. He has a congested cough. His blood sugars are slightly elevated today to systemic steroid use and the patient is currently on insulin drip for blood sugar control. The patient is seen today 05/06/2018 in follow-up on the selective care unit. He is awake and alert in no acute distress. He is breathing easier today as compared to yesterday. So with a dry nonproductive cough. Currently maintaining good O2 saturations in the mid 90s on 4 L/m per nasal cannula. He' s afebrile. Blood culture reveals no growth. Sodium 126, creatinine 1.27. Currently in a negative balance. On today's evaluation of the I'm seeing this patient for a follow-up. The patient is still weak and tired and fatigued. We are having issues with electrode imbalance. The patient developed an acute kidney injury. The patient also had developed hyponatremia. Currently is on normal saline and a bolus of 1 L will be given to him. His most recent sodium level is at 125. His diuretics are on hold. Entresto is also on hold. No fever. No chills. No nausea or vomiting. No alternative medications. The blood cultures been negative. No other significant events over the past 24 hours. Family is at the bedside. In terms of his COPD, the patient is on DuoNeb nebulized treatments around the clock. The patient was started on a prednisone burst taper. Fluids are running at the rate of 75 an hour. Objective - Vital Signs Vital signs: Vital Signs Temp 97.0 F L 05/07/18 16:00 Pulse 89 05/07/18 16:00 Resp 20 05/07/18 16:00 BP 105/67 05/07/18 16:00 Pulse Ox 99 05/07/18 16:00 Intake & Output 05/06/18 05/07/18 05/07/18 18:59 06:59 18:59 Intake Total 1445.467 400 400 Output Total 1200 Balance 245.467 400 400 Weight 63.2 kg Intake: Intake, IV Titration 5.467 400 400 Amount Insulin Regular 100 unit 5.467 In Sodium Chloride 0.9% 100 ml @ Titrate IV .Q0M [facility] Rx#:[id number] Sodium Chloride 0.9% 1, 400 400 000 ml @ 20 mls/hr IV . Q24H [facility] Rx#:[id number] Oral 1440 Output: Urine 1200 Other: Voiding Method Toilet Toilet # Voids 1 2 - Exam GENERAL EXAM: Alert, active, comfortable in no apparent distress. Appears older than stated age. On 4 L/m per nasal cannula. HEAD: Normocephalic. EYES: Normal reaction of pupils, equal size. NOSE: Clear with pink turbinates. THROAT: No erythema or exudates. NECK: No masses, no JVD. CHEST: No chest wall deformity. LUNGS: Equal air entry with faint end expiratory wheeze, diminished.. CVS: S1 and S2 normal with no audible murmur, regular rhythm. ABDOMEN: No hepatosplenomegaly, normal bowel sounds, no guarding or rigidity. SPINE: No scoliosis or deformity SKIN: No rashes CENTRAL NERVOUS SYSTEM: No focal deficits, tone is normal in all 4 extremities. EXTREMITIES: There is 1+ peripheral edema. No clubbing, no cyanosis. Peripheral pulses are intact. - Labs CBC & Chem 7: 05/04/18 14:36 05/07/18 05:52 Labs: Abnormal Lab Results - Last 24 Hours (Table) 05/06/18 05/06/18 05/07/18 Range/Units 17:46 20:40 05:52 Sodium 125 L (137-145) mmol/L Chloride 95 L (98-107) mmol/L BUN 52 H (9-20) mg/dL Creatinine 1.39 H (0.66-1.25) mg/dL Glucose 178 H (74-99) mg/dL POC Glucose (mg/dL) 151 H 344 H (75-99) mg/dL Calcium 7.5 L (8.4-10.2) mg/dL 05/07/18 05/07/18 Range/Units 06:06 11:45 Sodium (137-145) mmol/L Chloride (98-107) mmol/L BUN (9-20) mg/dL Creatinine (0.66-1.25) mg/dL Glucose (74-99) mg/dL POC Glucose (mg/dL) 203 H 244 H (75-99) mg/dL Calcium (8.4-10.2) mg/dL Microbiology - Last 24 Hours (Table) 05/04/18 14:36 Blood Culture - Preliminary Blood No Growth after 72 hours Assessment and Plan Plan: Impression: #1 severe COPD with chronic hypoxic respiratory failure. The COPD is currently inactive and stable as the patient is completing a prednisone burst taper. #2 generalized weakness, probably related to aggressive diuresis and hyponatremia with a sodium level of 125. Currently on normal saline infusion. #3 History of severe nonischemic cardiomyopathy with previous ejection fraction 30%, more recently 45%. Status post AICD placement. #4 History of alcoholism. Currently a non-alcohol drinker #5 History of chronic pancreatitis with pseudocysts. #6 Diabetes mellitus with steroid-induced hyperglycemia. #7 Hypertension. #8 Hyperlipidemia. #9 Chronic tobacco dependence. #10 Progressive weight loss secondary to chronic malabsorption #11 steroid-induced hyperglycemia #12 acute kidney injury, off Entresto Plan Continue same treatment. Replenish fluids. Monitor sodium level. Monitor renal function. Prednisone burst taper. We'll continue to follow.
[2018-05-07 17:15] LABS: Glucose,Whole Blood 375 mg/dL (75-99)
[2018-05-07 20:11] LABS: Glucose,Whole Blood 455 mg/dL (75-99)
[2018-05-07] MEDS ORDERED: INSULIN ASPART (NovoLOG) 100 UNIT/ML VIAL SQ ONE (22:40)
[2018-05-08] MEDS: IPRATROPIUM-ALBUTEROL 3 ML NEB INHALATION SCH ×5 (03:48→20:28)
[2018-05-08] MEDS: guaiFENesin-DM 100-10MG/5ML 10 ML CUP PO SCH ×4 (05:57→22:34)
[2018-05-08 06:16] LABS: Glucose,Whole Blood 272 mg/dL (75-99)
[2018-05-08 06:54] LABS: Calcium 8.9 mg/dL (8.4-10.2); Potassium 4.8 mmol/L (3.5-5.1)
[2018-05-08] MEDS: INSULIN ASPART (NovoLOG) 100 UNIT/ML VIAL SQ SCH ×7 (07:03→21:19)
--- NOTE | 2018-05-08 07:58 | P.PN ---
Subjective Progress Note Date: 05/08/18 Principal diagnosis: Exacerbation of COPD and CHF. This is a continue present 57-year-old white male with known history of COPD and CHF with history of chronic pancreatitis who is came in for exacerbation of respiratory distress. The patient is currently have an echocardiogram done and states that he feels much better today. Objective - Vital Signs Vital signs: Vital Signs Temp 97.6 F 05/08/18 03:06 Pulse 105 H 05/08/18 07:26 Resp 18 05/08/18 07:26 BP 100/73 05/08/18 03:06 Pulse Ox 98 05/08/18 07:14 Intake & Output 05/07/18 05/08/18 05/08/18 18:59 06:59 18:59 Intake Total 1170 2480 Output Total 1500 Balance -330 2480 Weight 61.7 kg Intake: Intake, IV Titration 400 1000 Amount Sodium Chloride 0.9% 1, 400 000 ml @ 20 mls/hr IV . Q24H [facility] Rx#:[id number] Sodium Chloride 0.9% 1, 1000 000 ml @ 75 mls/hr IV . [id number] [facility] Rx#:[id number] Oral 770 1480 Output: Urine 1500 Other: Voiding Method Toilet # Voids 3 1 - Constitutional General appearance: Present: thin - EENT Eyes: Absent: abnormal pupil - Neck Neck: Absent: lymphadenopathy - Respiratory Respiratory: bilateral: diminished - Cardiovascular Rhythm: regular Heart sounds: normal: S1, S2 - Gastrointestinal General gastrointestinal: Present: soft. Absent: tenderness - Labs CBC & Chem 7: 05/04/18 14:36 05/08/18 06:02 Labs: Abnormal Lab Results - Last 24 Hours (Table) 05/07/18 05/07/18 05/07/18 Range/Units 11:45 17:02 20:10 Sodium (137-145) mmol/L Chloride (98-107) mmol/L BUN (9-20) mg/dL Creatinine (0.66-1.25) mg/dL Glucose (74-99) mg/dL POC Glucose (mg/dL) 244 H 375 H 455 H (75-99) mg/dL 05/08/18 05/08/18 Range/Units 06:02 06:15 Sodium 129 L (137-145) mmol/L Chloride 94 L (98-107) mmol/L BUN 48 H (9-20) mg/dL Creatinine 1.27 H (0.66-1.25) mg/dL Glucose 264 H (74-99) mg/dL POC Glucose (mg/dL) 272 H (75-99) mg/dL Microbiology - Last 24 Hours (Table) 05/04/18 14:36 Blood Culture - Preliminary Blood No Growth after 72 hours Assessment and Plan (1) Acute exacerbation of chronic obstructive airways disease Current Visit: Yes Status: Acute Code(s): J44.1 - CHRONIC OBSTRUCTIVE PULMONARY DISEASE W (ACUTE) EXACERBATION SNOMED Code(s): 512411580 (2) Congestive heart failure Current Visit: Yes Status: Acute Code(s): I50.9 - HEART FAILURE, UNSPECIFIED SNOMED Code(s): 69253802 (3) Hypoxia Current Visit: No Status: Acute Code(s): R09.02 - HYPOXEMIA SNOMED Code(s) : 254369701 (4) NICM (nonischemic cardiomyopathy) Current Visit: No Status: Acute Code(s): I42.9 - CARDIOMYOPATHY, UNSPECIFIED SNOMED Code(s): 08472683 (5) Pancreatitis Current Visit: No Status: Acute Code(s): K85.9 - ACUTE PANCREATITIS, UNSPECIFIED * DO NOT USE * SNOMED Code(s): 53592178 Plan: Await echocardiogram results. Appreciate pulmonology and cardiology input. Anticipate discharge in next 24 hours if cleared by consultants. Check CMP in a.m. Time with Patient: Less than 30
[2018-05-08] MEDS ORDERED: ERGOCALCIFEROL 50,000 UNIT CAP PO SCH (09:00)
[2018-05-08] MEDS: DOCUSATE 100 MG CAP PO SCH (09:20)
[2018-05-08] MEDS: METOPROLOL SUCCINATE (ER) 25 MG TAB.ER.24H PO SCH (09:20)
[2018-05-08] MEDS: LORATADINE 10 MG TAB PO SCH (09:20)
[2018-05-08] MEDS: FAMOTIDINE 20 MG TAB PO SCH ×2 (09:20→20:16)
[2018-05-08] MEDS: PREGABALIN 75 MG CAP PO SCH ×3 (09:20→21:20)
[2018-05-08] MEDS: predniSONE 20 MG TAB PO SCH (09:20)
[2018-05-08] MEDS: HYDROcodone/APAP 10-325MG 1 EACH TAB PO PRN ×3 (09:21→20:23)
--- NOTE | 2018-05-08 11:00 | ECHOF ---
Referral Reason:CHF MEASUREMENTS -------- HEIGHT: 175.3 cm WEIGHT: 61.7 kg BP: RVIDd: 3.5 cm (< 3.3) IVSd: 0.9 cm (0.6 - 1.1) LVIDd: 5.9 cm (3.9 - 5.3) LVPWd: 1.0 cm (0.6 - 1.1) IVSs: 1.1 cm LVIDs: 5.3 cm LVPWs: 1.2 cm LAESV Index (A-L): 52.60 ml/m Ao Diam: 2.8 cm (2.0 - 3.7) AV Cusp: 2.2 cm (1.5 - 2.6) LA Diam: 4.4 cm (2.7 - 3.8) MV EXCURSION: 16.659 mm (> 18.000) MV EF SLOPE: 119 mm/s (70 - 150) EPSS: 1.7 cm MV E Niraj: 0.89 m/s MV DecT: 198 ms MV A Niraj: 0.37 m/s MV E/A Ratio: 2.37 RAP: 15.00 mmHg RVSP: 44.35 mmHg FINDINGS -------- Pacerwire seen in RV and RA. AICD This was a technically good study. The left ventricle is mildly dilated. There is mild concentric left ventricular hypertrophy. Ther e is severe global hypokinesis of LV . Overall left ventricular systolic function is severely impai red with, an EF < 20%. The right ventricle is mildly enlarged. LA is severely dilated >40 ml/m2 The right atrium is normal in size. Aortic valve is trileaflet and is mildly thickened. Mild mitral regurgitation is present. Mild tricuspid regurgitation present. There is mild pulmonary hypertension. The right ventricular systolic pressure, as measured by Doppler, is 44.35mmHg. Pulmonic valve appears structurally normal. The aortic root size is normal. The inferior vena cava is mildly dilated. The pericardium is normal. CONCLUSIONS -------- 1. Pacerwire seen in RV and RA. 2. AICD 3. This was a technically good study. 4. The left ventricle is mildly dilated. 5. There is mild concentric left ventricular hypertrophy. 6. There is severe global hypokinesis of LV . 7. Overall left ventricular systolic function is severely impaired with, an EF < 20%. 8. The right ventricle is mildly enlarged. 9. LA is severely dilated >40 ml/m2 10. The right atrium is normal in size. 11. Aortic valve is trileaflet and is mildly thickened. 12. Mild mitral regurgitation is present. 13. Mild tricuspid regurgitation present. 14. There is mild pulmonary hypertension. 15. The right ventricular systolic pressure, as measured by Doppler, is 44.35mmHg. 16. Pulmonic valve appears structurally normal. 17. The aortic root size is normal. 18. The inferior vena cava is mildly dilated. 19. The pericardium is normal. REINFORCEMENT MAKER: Damaris Fregoso RDCS
[2018-05-08 11:23] LABS: Glucose,Whole Blood 281 mg/dL (75-99)
--- NOTE | 2018-05-08 15:11 | P.PN ---
Subjective Progress Note Date: 05/08/18 Principal diagnosis: Severe COPD with chronic hypoxic respiratory failure, generalized weakness, hyponatremia 57-year-old male patient with known history of advanced COPD, chronic hypoxic respiratory failure, severe cardiomyopathy and the patient has an AICD in place , previous history of chronic pancreatitis, chronic weight loss, who happens to continue to smoke cigarettes despite our ongoing recommendations. The patient is a recovering alcoholic in addition. He is a very pleasant gentleman. He comes into the hospital because of generalized weakness. Apparently he was having increased swelling in lower extremities and based on that his diuretic dose has been adjusted and the patient was given aggressive diuresis on outpatient basis. Subsequently he felt very weak and tired and lethargic. He was getting also more sleepy. No fever. No chills. No significant sputum production. No chest pain. No pleurisy. No angina. He comes into the hospital and the patient's BNP level is 16,000. Renal function is stable within normal limits. Influenza screen was negative. Chest x-ray does not show any acute abnormalities. Affect on his nonelevated. EKG showing a sinus rhythm with a premature ventricular beats and left anterior fascicular block. There is also prolongation of the QT interval. The patient was seen by cardiology. The patient was found to be stable from a CHF standpoint. No significant fluid overload. He is on oral Lasix 40 mg twice a day. He is also on Entresto , and Aldactone. He is receiving IV Solu Medrol regarding COPD exacerbation. He has a congested cough. His blood sugars are slightly elevated today to systemic steroid use and the patient is currently on insulin drip for blood sugar control. The patient is seen today 05/06/2018 in follow-up on the selective care unit. He is awake and alert in no acute distress. He is breathing easier today as compared to yesterday. So with a dry nonproductive cough. Currently maintaining good O2 saturations in the mid 90s on 4 L/m per nasal cannula. He' s afebrile. Blood culture reveals no growth. Sodium 126, creatinine 1.27. Currently in a negative balance. On today's evaluation of the and I'm seeing this patient for a follow-up. The patient is still weak and tired and fatigued. We are having issues with electrode imbalance. The patient developed an acute kidney injury. The patient also had developed hyponatremia. Currently is on normal saline and a bolus of 1 L will be given to him. His most recent sodium level is at 125. His diuretics are on hold. Entresto is also on hold. No fever. No chills. No nausea or vomiting. No alternative medications. The blood cultures been negative. No other significant events over the past 24 hours. Family is at the bedside. In terms of his COPD, the patient is on DuoNeb nebulized treatments around the clock. The patient was started on a prednisone burst taper. Fluids are running at the rate of 75 an hour. On 05/08/2018 patient seen in follow-up on selective care unit. Resting in bed , in no acute distress, sounds are diminished, no rhonchi, no wheezing. Patient denies any worsening shortness of breath, today's sodium is up to 129, patient remains on IV 0.9 normal saline at a rate of 75 ML per hour. His Entresto remains on hold, diuretics are on hold. Renal profile is slightly improved, with BUN down to 48, creatinine is 1.27. Denies any chest pain, he states his weakness is improving. Repeat echocardiogram showed severely impaired left ventricular systolic function with an EF of less than 20%. Objective - Vital Signs Vital signs: Vital Signs Temp 98.1 F 05/08/18 11:55 Pulse 51 L 05/08/18 11:55 Resp 18 05/08/18 11:55 BP 124/72 05/08/18 11:55 Pulse Ox 98 05/08/18 07:14 Intake & Output 05/07/18 05/08/18 05/08/18 18:59 06:59 18:59 Intake Total 1170 2480 615 Output Total 1500 Balance -330 2480 615 Weight 61.7 kg Intake: Intake, IV Titration 400 1000 Amount Sodium Chloride 0.9% 1, 400 000 ml @ 20 mls/hr IV . Q24H JOSY Rx#:[id number] Sodium Chloride 0.9% 1, 1000 000 ml @ 75 mls/hr IV . [id number] JOSY Rx#:[id number] Oral 770 1480 615 Output: Urine 1500 Other: Voiding Method Toilet Toilet # Voids 3 1 1 - Exam GENERAL EXAM: Alert, active, comfortable in no apparent distress. HEAD: Normocephalic/atraumatic. EYES: Normal reaction of pupils, equal size. Conjunctiva pink, sclera white. NOSE: Clear with pink turbinates. THROAT: No erythema or exudates. NECK: No masses, no JVD, no thyroid enlargement, no adenopathy. CHEST: No chest wall deformity. Symmetrical expansion. LUNGS: Equal air entry with no crackles, wheeze, rhonchi or dullness. CVS: Regular rate and rhythm, normal S1 and S2, no gallops, no murmurs, no rubs ABDOMEN: Soft, nontender. No hepatosplenomegaly, normal bowel sounds, no guarding or rigidity. EXTREMITIES: No clubbing, no edema, no cyanosis, 2+ pulses and upper and lower extremities. MUSCULOSKELETAL: Muscle strength and tone normal. SPINE: No scoliosis or deformity SKIN: No rashes CENTRAL NERVOUS SYSTEM: Alert and oriented -3. No focal deficits, tone is normal in all 4 extremities. PSYCHIATRIC: Alert and oriented -3. Appropriate affect. Intact judgment and insight. - Labs CBC & Chem 7: 05/04/18 14:36 05/08/18 06:02 Labs: Abnormal Lab Results - Last 24 Hours (Table) 05/07/18 05/07/18 05/08/18 Range/Units 17:02 20:10 06:02 Sodium 129 L (137-145) mmol/L Chloride 94 L (98-107) mmol/L BUN 48 H (9-20) mg/dL Creatinine 1.27 H (0.66-1.25) mg/dL Glucose 264 H (74-99) mg/dL POC Glucose (mg/dL) 375 H 455 H (75-99) mg/dL 05/08/18 05/08/18 Range/Units 06:15 11:18 Sodium (137-145) mmol/L Chloride (98-107) mmol/L BUN (9-20) mg/dL Creatinine (0.66-1.25) mg/dL Glucose (74-99) mg/dL POC Glucose (mg/dL) 272 H 281 H (75-99) mg/dL Microbiology - Last 24 Hours (Table) 05/04/18 14:36 Blood Culture - Preliminary Blood No Growth after 72 hours Assessment and Plan Plan: #1 severe COPD with chronic hypoxic respiratory failure. The COPD is currently inactive and stable as the patient is completing a prednisone burst taper. #2 generalized weakness, probably related to aggressive diuresis and hyponatremia with a sodium level of 125. Currently on normal saline infusion. #3 History of severe nonischemic cardiomyopathy with previous ejection fraction 30%, more recently 45%. Status post AICD placement. #4 History of alcoholism. Currently a non-alcohol drinker #5 History of chronic pancreatitis with pseudocysts. #6 Diabetes mellitus with steroid-induced hyperglycemia. #7 Hypertension. #8 Hyperlipidemia. #9 Chronic tobacco dependence. #10 Progressive weight loss secondary to chronic malabsorption #11 steroid-induced hyperglycemia #12 acute kidney injury, off Entresto Plan: Continue IV hydration, serum sodium level is improving, renal profile is improving. Continue nebulized bronchodilators, and prednisone . We'll continue to follow I performed a history & physical examination of the patient and discussed their management with my nurse practitioner, Princess Epps. I reviewed the nurse practitioner's note and agree with the documented findings and plan of care. Lung sounds are positive for diminished breath sounds. The findings and the impression was discussed with the patient. I attest to the documentation by the nurse practitioner. Time with Patient: Less than 30
--- NOTE | 2018-05-08 15:42 | P.PN ---
Subjective Progress Note Date: 05/08/18 This is a pleasant 57-year-old gentleman who follows with Dr. Be in the office. He is a history of nonischemic cardiomyopathy secondary to EtOH abuse, chronic systolic congestive heart failure, hypertension, diabetes, COPD, O2 dependence, virtually he continues to smoke, diaphragmatic paralysis, hyperlipidemia and prior single chamber AICD, chronic pancreatitis, nicotine dependence and history of alcoholism. He presented to the hospital on this admission with complaints of overall not feeling well, weakness, fatigue and day time sleepiness. The patient has been having episodes of dizziness and underwent tilt table testing in March that was negative. Chest x-ray this admission showed no evidence for acute pulmonary disease. Mr. Choudhury has chronic shortness of breath. He did have significant lower extremity and scrotal edema week or 2 ago but currently has no edema. His BNP level on admission was 16,400, which was lower than the one he had in November. Initially he was given IV Lasix and was changed over to oral diuretics. Patient was started on Entresto, he was also on metolazone and IV Lasix at the time, patient became quite hypotensive and the and chest O was discontinued. At the time of her examination today, his weight is down, BUN and creatinine 48 and 1.2. His blood pressure today is 124/70, heart rate in the 50s. Objective - Vital Signs Vital signs: Vital Signs Temp 98.1 F 05/08/18 11:55 Pulse 51 L 05/08/18 11:55 Resp 18 05/08/18 11:55 BP 124/72 05/08/18 11:55 Pulse Ox 98 05/08/18 07:14 Intake & Output 05/07/18 05/08/18 05/08/18 18:59 06:59 18:59 Intake Total 1170 2480 615 Output Total 1500 Balance -330 2480 615 Weight 61.7 kg Intake: Intake, IV Titration 400 1000 Amount Sodium Chloride 0.9% 1, 400 000 ml @ 20 mls/hr IV . Q24H JOSY Rx#:[id number] Sodium Chloride 0.9% 1, 1000 000 ml @ 75 mls/hr IV . [id number] JOSY Rx#:[id number] Oral 770 1480 615 Output: Urine 1500 Other: Voiding Method Toilet Toilet # Voids 3 1 1 - Exam PHYSICAL EXAMINATION: HEENT: Head is atraumatic, normocephalic. Pupils equal, round. Neck is supple. There is no elevated jugular venous pressure. HEART EXAMINATION: Heart sounds regular, S1 and S2 with a systolic murmur. CHEST EXAMINATION: Lungs with diminished air entry bilaterally. No chest wall tenderness is noted on palpation or with deep breathing. ABDOMEN: Soft, nontender. Bowel sounds are heard. No organomegaly noted. EXTREMITIES: 2+ peripheral pulses with no evidence of peripheral edema and no calf tenderness noted. NEUROLOGIC patient is awake, alert and oriented x3. - Labs CBC & Chem 7: 05/04/18 14:36 05/08/18 06:02 Labs: Abnormal Lab Results - Last 24 Hours (Table) 05/07/18 05/07/18 05/08/18 Range/Units 17:02 20:10 06:02 Sodium 129 L (137-145) mmol/L Chloride 94 L (98-107) mmol/L BUN 48 H (9-20) mg/dL Creatinine 1.27 H (0.66-1.25) mg/dL Glucose 264 H (74-99) mg/dL POC Glucose (mg/dL) 375 H 455 H (75-99) mg/dL 05/08/18 05/08/18 Range/Units 06:15 11:18 Sodium (137-145) mmol/L Chloride (98-107) mmol/L BUN (9-20) mg/dL Creatinine (0.66-1.25) mg/dL Glucose (74-99) mg/dL POC Glucose (mg/dL) 272 H 281 H (75-99) mg/dL Microbiology - Last 24 Hours (Table) 05/04/18 14:36 Blood Culture - Preliminary Blood No Growth after 72 hours Assessment and Plan Plan: Assessment: #1 symptoms of weakness, fatigue and sleepiness #2 nonischemic cardiomyopathy #3 chronic systolic congestive heart failure #4 Acute exacerbation COPD #5 diabetes mellitus #6 diaphragmatic paralysis Plan We will again start the patient on Entresto and see how his blood pressure tolerates in the next 24 hours. DNP note has been reviewed, I agree with a documented findings and plan of care. Patient was seen and examined.
[2018-05-08 16:43] LABS: Glucose,Whole Blood 331 mg/dL (75-99)
[2018-05-08] MEDS: SACUBITRIL/VALSARTAN 24 MG-26 MG TABLET PO SCH ×2 (17:09→20:16)
[2018-05-08] MEDS: SODIUM CHLORIDE 0.9% 1,000 ML IV SCH ×2 (17:14→20:18)
[2018-05-08 21:00] LABS: Glucose,Whole Blood 363 mg/dL (75-99)
[2018-05-09] MEDS: IPRATROPIUM-ALBUTEROL 3 ML NEB INHALATION SCH ×4 (01:10→13:11)
[2018-05-09] MEDS: SODIUM CHLORIDE 0.9% 1,000 ML IV SCH (03:39)
[2018-05-09] MEDS: guaiFENesin-DM 100-10MG/5ML 10 ML CUP PO SCH ×2 (04:55→09:05)
[2018-05-09] MEDS: HYDROcodone/APAP 10-325MG 1 EACH TAB PO PRN ×2 (04:58→09:08)
[2018-05-09 05:41] LABS: Glucose,Whole Blood 498 mg/dL (75-99)
[2018-05-09 06:17] LABS: Albumin 3.5 g/dL (3.5-5.0); Calcium 8.9 mg/dL (8.4-10.2); Potassium 5.6 mmol/L (3.5-5.1); Total Bilirubin 0.4 mg/dL (0.2-1.3); Total Protein 5.6 g/dL (6.3-8.2)
[2018-05-09] MEDS ORDERED: INSULIN ASPART (NovoLOG) 100 UNIT/ML VIAL SQ ONE (06:30)
[2018-05-09] MEDS: INSULIN ASPART (NovoLOG) 100 UNIT/ML VIAL SQ SCH ×4 (07:28→12:38)
[2018-05-09] MEDS: DOCUSATE 100 MG CAP PO SCH (09:04)
[2018-05-09] MEDS: LORATADINE 10 MG TAB PO SCH (09:04)
[2018-05-09] MEDS: SACUBITRIL/VALSARTAN 24 MG-26 MG TABLET PO SCH (09:04)
[2018-05-09] MEDS: FAMOTIDINE 20 MG TAB PO SCH (09:04)
[2018-05-09] MEDS: PREGABALIN 75 MG CAP PO SCH (09:04)
[2018-05-09] MEDS: METOPROLOL SUCCINATE (ER) 25 MG TAB.ER.24H PO SCH (09:04)
[2018-05-09] MEDS: predniSONE 20 MG TAB PO SCH (09:04)
[2018-05-09 11:38] LABS: Glucose,Whole Blood 222 mg/dL (75-99)
--- NOTE | 2018-05-09 12:34 | P.DS ---
Providers Date of admission: 05/06/18 12:44 Attending physician: Yusuf Lind Consults: 05/04/18 17:12 Consult Physician Routine Consulting Provider: Steve Khanna Consult Reason/Comments: COPD exacerbation with CHF Do you want consulting provider notified?: Yes Consult Physician Routine Consulting Provider: Debora Ayala Consult Reason/Comments: CHF Do you want consulting provider notified?: Yes Primary care physician: Yusuf Lind - Discharge Diagnosis(es) (1) Acute exacerbation of chronic obstructive airways disease Current Visit: Yes Status: Acute (2) Congestive heart failure Current Visit: Yes Status: Acute (3) Hypoxia Current Visit: No Status: Acute (4) NICM (nonischemic cardiomyopathy) Current Visit: No Status: Acute (5) Pancreatitis Current Visit: No Status: Acute Hospital Course: This is a discharge summary 57-year-old white male with known history of COPD diabetes type pancreatitis and CHF. The patient was stabilized with appropriate treatment has been started on and chest area and a beta owen. The patient is not discharged in stable condition to follow-up in about one week. Guarded prognosis given multiplicity of chronic diagnoses We will see the patient in 4-5 days. Patient Condition at Discharge: Serious Plan - Discharge Summary Discharge Rx Participant: Yes New Discharge Prescriptions: New RX: Metoprolol Succinate (ER) [Toprol XL] 25 mg PO DAILY #30 tab.er.24h RX: predniSONE 40 mg PO DAILY #7 tab RX: Sacubitril/Valsartan [Entresto 24 mg-26 mg Tablet] 1 each PO BID #30 tablet RX: Saline Nasal Gel [[place] Nasal Gel] 1 applic TOPICAL Q4HR PRN gm PRN Reason: Dry Nasal Passages Continue RX: HYDROcodone/APAP 10-325MG [Chancellor 10-325] 1 tab PO Q4HR PRN PRN Reason: Pain RX: Pregabalin [Lyrica] 150 mg PO TID RX: Insulin Lispro [humaLOG Kwikpen] See Protocol SQ ACHS RX: Insulin Degludec [Tresiba Flextouch U-200] 28 unit SQ DAILY RX: Albuterol Nebulized [Ventolin Nebulized] 2.5 mg INHALATION RT-QID PRN nebu PRN Reason: Shortness Of Breath Or Wheezing RX: Zolpidem [Ambien] 10 mg PO HS PRN PRN Reason: Insomnia RX: Metolazone [Zaroxolyn] 5 mg PO DAILY RX: Docusate [Colace] 100 mg PO DAILY RX: Cetirizine HCl [Zyrtec] 10 mg PO DAILY RX: Famotidine 20 mg PO BID RX: Ergocalciferol (Vitamin D2) [Vitamin D2] 50,000 unit PO Q7D Discharge Medication List RX: HYDROcodone/APAP 10-325MG [Chancellor 10-325] 1 tab PO Q4HR PRN 03/22/18 [History ] RX: Insulin Degludec [Tresiba Flextouch U-200] 28 unit SQ DAILY 03/22/18 [ History] RX: Insulin Lispro [humaLOG Kwikpen] See Protocol SQ ACHS 03/22/18 [History] RX: Pregabalin [Lyrica] 150 mg PO TID 03/22/18 [History] RX: Albuterol Nebulized [Ventolin Nebulized] 2.5 mg INHALATION RT-QID PRN nebu 03/24/18 [Rx] RX: Cetirizine HCl [Zyrtec] 10 mg PO DAILY 05/04/18 [History] RX: Docusate [Colace] 100 mg PO DAILY 05/04/18 [History] RX: Ergocalciferol (Vitamin D2) [Vitamin D2] 50,000 unit PO Q7D 05/04/18 [ History] RX: Famotidine 20 mg PO BID 05/04/18 [History] RX: Metolazone [Zaroxolyn] 5 mg PO DAILY 05/04/18 [History] RX: Zolpidem [Ambien] 10 mg PO HS PRN 05/04/18 [History] RX: Metoprolol Succinate (ER) [Toprol XL] 25 mg PO DAILY #30 tab.er.24h [Rx] RX: Sacubitril/Valsartan [Entresto 24 mg-26 mg Tablet] 1 each PO BID #30 tablet 05/09/18 [Rx] RX: Saline Nasal Gel [[place] Nasal Gel] 1 applic TOPICAL Q4HR PRN gm 05/09/18 [Rx] RX: predniSONE 40 mg PO DAILY #7 tab 05/09/18 [Rx] Follow up Appointment(s)/Referral(s): Josh Be MD [STAFF PHYSICIAN] - 05/26/18 9:45 am (With Amparo GARCIA.) Yusuf Lind MD [Primary Care Provider] - 1-2 days [facility], [REFERRING] - As Needed Steve Khanna MD [STAFF PHYSICIAN] - 1 Week Patient Instructions/Handouts: Heart Failure (DC), Heart Healthy Diet (DC) Activity/Diet/Wound Care/Special Instructions: Entresto script filled in [facility] - [facility] - copay is $3.70
[2018-05-09 13:30] VITALS: BP 111/75; PULSE 100; RESP 18; TEMP 98
--- NOTE | 2018-05-09 14:03 | P.PN ---
Subjective Progress Note Date: 05/09/18 This is a pleasant 57-year-old gentleman who follows with Dr. Be in the office. He is a history of nonischemic cardiomyopathy secondary to EtOH abuse, chronic systolic congestive heart failure, hypertension, diabetes, COPD, O2 dependence, virtually he continues to smoke, diaphragmatic paralysis, hyperlipidemia and prior single chamber AICD, chronic pancreatitis, nicotine dependence and history of alcoholism. He presented to the hospital on this admission with complaints of overall not feeling well, weakness, fatigue and day time sleepiness. The patient has been having episodes of dizziness and underwent tilt table testing in March that was negative. Chest x-ray this admission showed no evidence for acute pulmonary disease. Mr. Choudhury has chronic shortness of breath. He did have significant lower extremity and scrotal edema week or 2 ago but currently has no edema. His BNP level on admission was 16,400, which was lower than the one he had in November. Initially he was given IV Lasix and was changed over to oral diuretics. Patient was started on Entresto, he was also on metolazone and IV Lasix at the time, patient became quite hypotensive and the and chest O was discontinued. At the time of her examination today, his weight is down, BUN and creatinine 48 and 1.2. His blood pressure today is 124/70, heart rate in the 50s. 05/09/2018 Patient seen and examined this morning, feels well, no complaints. We did start him on Entresto yesterday, blood pressure today in the 120 range, creatinine 1.3. From our perspective he may be discharged home today, we'll make him a follow-up appointment to see Dr. Be in the office in one week, orion BUN and creatinine in a week. Objective - Vital Signs Vital signs: Vital Signs Temp 98.0 F 05/09/18 11:50 Pulse 100 05/09/18 11:50 Resp 18 05/09/18 11:50 BP 111/75 05/09/18 11:50 Pulse Ox 98 05/09/18 11:50 Intake & Output 05/08/18 05/09/18 05/09/18 18:59 06:59 18:59 Intake Total 855 300 720 Balance 855 300 720 Weight 61.5 kg 61.5 kg Intake: Oral 855 300 720 Other: Voiding Method Toilet Toilet # Voids 1 1 3 - Exam PHYSICAL EXAMINATION: HEENT: Head is atraumatic, normocephalic. Pupils equal, round. Neck is supple. There is no elevated jugular venous pressure. HEART EXAMINATION: Heart sounds regular, S1 and S2 with a systolic murmur. CHEST EXAMINATION: Lungs with diminished air entry bilaterally. No chest wall tenderness is noted on palpation or with deep breathing. ABDOMEN: Soft, nontender. Bowel sounds are heard. No organomegaly noted. EXTREMITIES: 2+ peripheral pulses with no evidence of peripheral edema and no calf tenderness noted. NEUROLOGIC patient is awake, alert and oriented x3. - Labs CBC & Chem 7: 05/04/18 14:36 05/09/18 05:18 Labs: Abnormal Lab Results - Last 24 Hours (Table) 05/08/18 05/08/18 05/09/18 Range/Units 16:39 20:59 05:18 Sodium 131 L (137-145) mmol/L Potassium 5.6 H (3.5-5.1) mmol/L Chloride 93 L (98-107) mmol/L BUN 43 H (9-20) mg/dL Creatinine 1.32 H (0.66-1.25) mg/dL Glucose 487 H (74-99) mg/dL POC Glucose (mg/dL) 331 H 363 H (75-99) mg/dL Total Protein 5.6 L (6.3-8.2) g/dL 05/09/18 05/09/18 Range/Units 05:40 11:08 Sodium (137-145) mmol/L Potassium (3.5-5.1) mmol/L Chloride (98-107) mmol/L BUN (9-20) mg/dL Creatinine (0.66-1.25) mg/dL Glucose (74-99) mg/dL POC Glucose (mg/dL) 498 H 222 H (75-99) mg/dL Total Protein (6.3-8.2) g/dL Microbiology - Last 24 Hours (Table) 05/04/18 14:36 Blood Culture - Preliminary Blood No Growth after 96 hours Assessment and Plan Plan: Assessment: #1 symptoms of weakness, fatigue and sleepiness #2 nonischemic cardiomyopathy #3 chronic systolic congestive heart failure #4 Acute exacerbation COPD #5 diabetes mellitus #6 diaphragmatic paralysis Plan We will again start the patient on Entresto and see how his blood pressure tolerates in the next 24 hours. DNP note has been reviewed, I agree with a documented findings and plan of care. Patient was seen and examined.
--- NOTE | 2018-05-09 14:23 | P.PN ---
Subjective Progress Note Date: 05/09/18 Principal diagnosis: Severe COPD with chronic hypoxic respiratory failure, generalized weakness, hyponatremia 57-year-old male patient with known history of advanced COPD, chronic hypoxic respiratory failure, severe cardiomyopathy and the patient has an AICD in place , previous history of chronic pancreatitis, chronic weight loss, who happens to continue to smoke cigarettes despite our ongoing recommendations. The patient is a recovering alcoholic in addition. He is a very pleasant gentleman. He comes into the hospital because of generalized weakness. Apparently he was having increased swelling in lower extremities and based on that his diuretic dose has been adjusted and the patient was given aggressive diuresis on outpatient basis. Subsequently he felt very weak and tired and lethargic. He was getting also more sleepy. No fever. No chills. No significant sputum production. No chest pain. No pleurisy. No angina. He comes into the hospital and the patient's BNP level is 16,000. Renal function is stable within normal limits. Influenza screen was negative. Chest x-ray does not show any acute abnormalities. Affect on his nonelevated. EKG showing a sinus rhythm with a premature ventricular beats and left anterior fascicular block. There is also prolongation of the QT interval. The patient was seen by cardiology. The patient was found to be stable from a CHF standpoint. No significant fluid overload. He is on oral Lasix 40 mg twice a day. He is also on Entresto , and Aldactone. He is receiving IV Solu Medrol regarding COPD exacerbation. He has a congested cough. His blood sugars are slightly elevated today to systemic steroid use and the patient is currently on insulin drip for blood sugar control. The patient is seen today 05/06/2018 in follow-up on the selective care unit. He is awake and alert in no acute distress. He is breathing easier today as compared to yesterday. So with a dry nonproductive cough. Currently maintaining good O2 saturations in the mid 90s on 4 L/m per nasal cannula. He' s afebrile. Blood culture reveals no growth. Sodium 126, creatinine 1.27. Currently in a negative balance. On today's evaluation of the and I'm seeing this patient for a follow-up. The patient is still weak and tired and fatigued. We are having issues with electrode imbalance. The patient developed an acute kidney injury. The patient also had developed hyponatremia. Currently is on normal saline and a bolus of 1 L will be given to him. His most recent sodium level is at 125. His diuretics are on hold. Entresto is also on hold. No fever. No chills. No nausea or vomiting. No alternative medications. The blood cultures been negative. No other significant events over the past 24 hours. Family is at the bedside. In terms of his COPD, the patient is on DuoNeb nebulized treatments around the clock. The patient was started on a prednisone burst taper. Fluids are running at the rate of 75 an hour. On 05/08/2018 patient seen in follow-up on selective care unit. Resting in bed , in no acute distress, sounds are diminished, no rhonchi, no wheezing. Patient denies any worsening shortness of breath, today's sodium is up to 129, patient remains on IV 0.9 normal saline at a rate of 75 ML per hour. His Entresto remains on hold, diuretics are on hold. Renal profile is slightly improved, with BUN down to 48, creatinine is 1.27. Denies any chest pain, he states his weakness is improving. Repeat echocardiogram showed severely impaired left ventricular systolic function with an EF of less than 20%. On 05/09/2018 patient seen in follow-up on selective care unit, doing well, denies any worsening shortness of breath, he is currently on 4 L per nasal cannula his pulse ox is 98%, he is afebrile, hemodynamically stable, no complaints of chest pain. He was restarted on Entresto per cardiology, his diuretics remain on hold, today's labs have been reviewed, his serum sodium is up to 131, potassium is 5.6, heart was 93, CO2 is 28, BUN is 43, creatinine is 1.32. Lung sounds positive for diffuse rhonchi, patient has a strong affective cough. No swelling in lower extremities. Fever or chills, patient has been ambulating in the hallway and then in the room, tolerating activity well. Cleared for discharge by cardiology, from pulmonary perspective he is stable for discharge as well. Objective - Vital Signs Vital signs: Vital Signs Temp 98.0 F 05/09/18 11:50 Pulse 100 05/09/18 11:50 Resp 18 05/09/18 11:50 BP 111/75 05/09/18 11:50 Pulse Ox 98 05/09/18 11:50 Intake & Output 05/08/18 05/09/18 05/09/18 18:59 06:59 18:59 Intake Total 855 300 720 Balance 855 300 720 Weight 61.5 kg 61.5 kg Intake: Oral 855 300 720 Other: Voiding Method Toilet Toilet # Voids 1 1 3 - Exam GENERAL EXAM: Alert, active, comfortable in no apparent distress. HEAD: Normocephalic/atraumatic. EYES: Normal reaction of pupils, equal size. Conjunctiva pink, sclera white. NOSE: Clear with pink turbinates. THROAT: No erythema or exudates. NECK: No masses, no JVD, no thyroid enlargement, no adenopathy. CHEST: No chest wall deformity. Symmetrical expansion. LUNGS: Equal air entry with some scattered limited rhonchi CVS: Regular rate and rhythm, normal S1 and S2, no gallops, no murmurs, no rubs ABDOMEN: Soft, nontender. No hepatosplenomegaly, normal bowel sounds, no guarding or rigidity. EXTREMITIES: No clubbing, no edema, no cyanosis, 2+ pulses and upper and lower extremities. MUSCULOSKELETAL: Muscle strength and tone normal. SPINE: No scoliosis or deformity SKIN: No rashes CENTRAL NERVOUS SYSTEM: Alert and oriented -3. No focal deficits, tone is normal in all 4 extremities. PSYCHIATRIC: Alert and oriented -3. Appropriate affect. Intact judgment and insight. - Labs CBC & Chem 7: 05/04/18 14:36 05/09/18 05:18 Labs: Abnormal Lab Results - Last 24 Hours (Table) 05/08/18 05/08/18 05/09/18 Range/Units 16:39 20:59 05:18 Sodium 131 L (137-145) mmol/L Potassium 5.6 H (3.5-5.1) mmol/L Chloride 93 L (98-107) mmol/L BUN 43 H (9-20) mg/dL Creatinine 1.32 H (0.66-1.25) mg/dL Glucose 487 H (74-99) mg/dL POC Glucose (mg/dL) 331 H 363 H (75-99) mg/dL Total Protein 5.6 L (6.3-8.2) g/dL 05/09/18 05/09/18 Range/Units 05:40 11:08 Sodium (137-145) mmol/L Potassium (3.5-5.1) mmol/L Chloride (98-107) mmol/L BUN (9-20) mg/dL Creatinine (0.66-1.25) mg/dL Glucose (74-99) mg/dL POC Glucose (mg/dL) 498 H 222 H (75-99) mg/dL Total Protein (6.3-8.2) g/dL Microbiology - Last 24 Hours (Table) 05/04/18 14:36 Blood Culture - Preliminary Blood No Growth after 96 hours Assessment and Plan Plan: #1 severe COPD with chronic hypoxic respiratory failure. The COPD is currently inactive and stable as the patient is completing a prednisone burst taper. #2 generalized weakness, probably related to aggressive diuresis and hyponatremia with a sodium level of 125. Currently on normal saline infusion. #3 History of severe nonischemic cardiomyopathy with previous ejection fraction 30%, more recently 45%. Status post AICD placement. #4 History of alcoholism. Currently a non-alcohol drinker #5 History of chronic pancreatitis with pseudocysts. #6 Diabetes mellitus with steroid-induced hyperglycemia. #7 Hypertension. #8 Hyperlipidemia. #9 Chronic tobacco dependence. #10 Progressive weight loss secondary to chronic malabsorption #11 steroid-induced hyperglycemia #12 acute kidney injury, off Entresto Plan: No worsening dyspnea, patient is tolerating ambulation, serum sodium has improved, right extremity and on hold, patient has been started on Entresto, no hypotension. Tolerating ambulation, no fever or chills. He is stable for discharge home from pulmonary perspective, he can follow up with Dr. Khanna in the office in 7-10 days I performed a history & physical examination of the patient and discussed their management with my nurse practitioner, Princess Epps. I reviewed the nurse practitioner's note and agree with the documented findings and plan of care. Lung sounds are positive for diminished breath sounds. The findings and the impression was discussed with the patient. I attest to the documentation by the nurse practitioner. Time with Patient: Less than 30
== END 2018-05-09 16:46 | disposition home health service (06) | DRG 190 ==
LOC: EC 14:09 → 3SCARD 17:29 → OBSVTOIN 05-06 12:44
PROVIDERS: ADMIT Family Medicine; ATTEND Family Medicine
DX: J44.1 Chronic obstructive pulmonary disease with (acute) exacerbation (principal); J96.21 Acute and chronic respiratory failure with hypoxia; E87.1 Hypo-osmolality and hyponatremia; I42.6 Alcoholic cardiomyopathy; I50.22 Chronic systolic (congestive) heart failure; K86.1 Other chronic pancreatitis; K90.9 Intestinal malabsorption, unspecified; N17.9 Acute kidney failure, unspecified; I11.0 Hypertensive heart disease with heart failure; I95.9 Hypotension, unspecified; E11.65 Type 2 diabetes mellitus with hyperglycemia; J98.6 Disorders of diaphragm; T50.1X5A Adverse effect of loop [high-ceiling] diuretics, initial encounter; E78.5 Hyperlipidemia, unspecified; F10.21 Alcohol dependence, in remission; F17.210 Nicotine dependence, cigarettes, uncomplicated; I44.4 Left anterior fascicular block; K21.9 Gastro-esophageal reflux disease without esophagitis; T38.0X5A Adverse effect of glucocorticoids and synthetic analogues, initial encounter; M19.90 Unspecified osteoarthritis, unspecified site; R19.7 Diarrhea, unspecified; R63.4 Abnormal weight loss; R77.9 Abnormality of plasma protein, unspecified; R53.1 Weakness; Z79.4 Long term (current) use of insulin; Z79.899 Other long term (current) drug therapy; Z99.81 Dependence on supplemental oxygen; Z95.810 Presence of automatic (implantable) cardiac defibrillator; Z87.01 Personal history of pneumonia (recurrent); Z88.6 Allergy status to analgesic agent; Z88.5 Allergy status to narcotic agent; Z82.49 Family history of ischemic heart disease and other diseases of the circulatory system; Z82.5 Family history of asthma and other chronic lower respiratory diseases; Z83.3 Family history of diabetes mellitus
CPT/HCPCS: 36415; 71046; 80048; 80053; 82550; 82553; 83036; 83735; 83880; 84484; 85025; 85610; 85730; 87040; 87502; 93005; 93306; 94640; 94760; 96374; 96375; 99291

== ENCOUNTER 2018-05-14 10:54 | Inpatient (IN) | payer MEDICARE, OTHER ==
[2018-05-14] MEDS ORDERED: FUROSEMIDE 10 MG/ML 4 ML VIAL IV STA (11:16)
[2018-05-14] MEDS ORDERED: methylPREDNISolone SOD SUCCI 125 MG/2 ML VIAL IV STA (11:16)
[2018-05-14] MEDS ORDERED: IPRATROPIUM-ALBUTEROL 3 ML NEB INHALATION STA ×2 (11:16→14:25)
--- NOTE | 2018-05-14 11:25 | ED ---
SOB HPI - General Chief Complaint: Shortness of Breath Stated Complaint: PIA/chest pain/high blood sugar Time Seen by Provider: 05/14/18 11:03 Source: patient, RN notes reviewed Mode of arrival: wheelchair Limitations: no limitations - History of Present Illness Initial Comments: This is a 57-year-old male with a history of CHF and COPD who was recently admitted on the ninth of this month and discharged on 12 for the same who presents with complaints of exertional dyspnea shortness of breath at rest left- sided and epigastric chest pain moderate in severity no fevers chills or sweats he also complains of edema to legs extending up into his scrotum and penis which started over last day or so. When some lower abdominal pain. MD Complaint: shortness of breath, cough, chest pain - Related Data Home Medications Medication Instructions Recorded Confirmed HYDROcodone/APAP 10-325MG [[place] 1 tab PO Q4HR PRN 03/22/18 05/14/18 10-325] Insulin Degludec [Tresiba 28 unit SQ DAILY 03/22/18 05/14/18 Flextouch U-200] Insulin Lispro [humaLOG Kwikpen] See Protocol SQ ACHS 03/22/18 05/14/18 Pregabalin [Lyrica] 150 mg PO TID 03/22/18 05/14/18 Cetirizine HCl [Zyrtec] 10 mg PO DAILY 05/04/18 05/14/18 Docusate [Colace] 100 mg PO DAILY 05/04/18 05/14/18 Ergocalciferol (Vitamin D2) 50,000 unit PO Q7D 05/04/18 05/14/18 [Vitamin D2] Famotidine 20 mg PO BID 05/04/18 05/14/18 Zolpidem [Ambien] 10 mg PO HS PRN 05/04/18 05/14/18 Sacubitril/Valsartan [Entresto 24 1 tab PO BID 05/14/18 05/14/18 mg-26 mg Tablet] Previous Rx's Medication Instructions Recorded Albuterol Nebulized [Ventolin 2.5 mg INHALATION RT-QID PRN nebu 03/24/18 Nebulized] Metoprolol Succinate (ER) [Toprol 25 mg PO DAILY #30 tab.er.24h 05/09/18 XL] Saline Nasal Gel [[employer] Nasal Gel] 1 applic TOPICAL Q4HR PRN gm 05/09/18 predniSONE 40 mg PO DAILY #7 tab 05/09/18 Allergies Allergy/AdvReac Type Severity Reaction Status Date / Time meperidine HCl [From Demerol] Allergy Severe Rapid Verified 05/14/18 11:22 Heart Rate/VOMITING ibuprofen [From Motrin] AdvReac Vomiting Verified 05/14/18 11:22 Review of Systems ROS Statement: Those systems with pertinent positive or pertinent negative responses have been documented in the HPI. ROS Other: All systems not noted in ROS Statement are negative. Past Medical History Past Medical History: Heart Failure, COPD, Diabetes Mellitus, GERD/Reflux, Pneumonia, Renal Disease Additional Past Medical History / Comment(s): Severe COPD, chronic hypoxic respiratory failure, cardiomyopathy, AICD placement, chronic alcoholism, chronic pancreatitis, diabetes mellitus, hypertension, hyperlipidemia, chronic smoker, chronic pancreatic insufficiency with malabsorption, pancreatic pseudocyst, history of degenerative arthritis, history of bone infection, history of perforated left tympanic membranes History of Any Multi-Drug Resistant Organisms: None Reported Past Surgical History: AICD Past Anesthesia/Blood Transfusion Reactions: No Reported Reaction Type of Cardiac Device: AICD Device Placement Date:: UNKNOWN Past Psychological History: No Psychological Hx Reported Smoking Status: Former smoker Past Alcohol Use History: None Reported Past Drug Use History: None Reported - Past Family History Father Family Medical History: Congestive Heart Failure (CHF), COPD, Diabetes Mellitus Additional Family Medical History / Comment(s): mrsa, gbs, asbestoes exposure/ lings Mother Family Medical History: Diabetes Mellitus, Hypertension General Exam - General Exam Comments Initial Comments: This is a well-developed well-nourished awake alert oriented 3 male who is in respiratory distress Limitations: no limitations General appearance: alert, anxious, in distress Head exam: Present: atraumatic, normocephalic, normal inspection Eye exam: Present: normal appearance, PERRL, EOMI. Absent: scleral icterus, conjunctival injection, periorbital swelling ENT exam: Present: mucous membranes dry Neck exam: Present: normal inspection, other (No stridor JVD or bruits). Absent : tenderness, meningismus, lymphadenopathy Respiratory exam: Present: wheezes, rhonchi, decreased breath sounds. Absent: respiratory distress, rales, stridor Cardiovascular Exam: Present: normal rhythm, tachycardia, normal heart sounds. Absent: systolic murmur, diastolic murmur, rubs, gallop, clicks GI/Abdominal exam: Present: soft, tenderness (Epigastric tenderness), normal bowel sounds, other. Absent: distended, guarding, rebound, rigid, bruit, pulsatile mass Rectal exam: Present: other (Penile and scrotal edema noted no discharge or drainage) Extremities exam: Present: full ROM, normal capillary refill, pedal edema. Absent: tenderness, joint swelling, calf tenderness Back exam: Present: normal inspection Neurological exam: Present: alert, oriented X3, CN II-XII intact Psychiatric exam: Present: normal affect, normal mood Skin exam: Present: warm, dry, intact, other (Him evidence of stasis changes). Absent: rash Course Vital Signs 05/14/18 05/14/18 05/14/18 10:57 11:24 12:20 Temperature 97.8 F Pulse Rate 101 H 92 Respiratory 24 22 Rate Blood Pressure 128/86 O2 Sat by Pulse 98 Oximetry - Reevaluation(s) Reevaluation #1: 05/14/18 14:25 Reevaluation patient revealed he was still is suffering from difficulty breathing he did feel slightly better however. This was after the initial treatment. Medical Decision Making - Medical Decision Making Reevaluation patient reveals minimal improvement since last evaluation. Patient will be admitted I did discuss the case with Dr. long who is covering Dr. Lind. Patient does demonstrate exacerbation CHF as well as COPD in addition to a elevated troponin. - Lab Data Result diagrams: 05/14/18 12:12 05/14/18 12:12 Lab Results 05/14/18 05/14/18 05/14/18 Range/Units 12:12 12:12 12:12 WBC 6.2 (3.8-10.6) k/uL RBC 4.40 (4.30-5.90) m/uL Hgb 13.0 (13.0-17.5) gm/dL Hct 41.7 (39.0-53.0) % MCV 94.8 (80.0-100.0) fL MCH 29.6 (25.0-35.0) pg MCHC 31.2 (31.0-37.0) g/dL RDW 14.3 (11.5-15.5) % Plt Count 170 (150-450) k/uL Neutrophils % 78 % Lymphocytes % 13 % Monocytes % 6 % Eosinophils % 1 % Basophils % 0 % Neutrophils # 4.9 (1.3-7.7) k/uL Lymphocytes # 0.8 L (1.0-4.8) k/uL Monocytes # 0.4 (0-1.0) k/uL Eosinophils # 0.0 (0-0.7) k/uL Basophils # 0.0 (0-0.2) k/uL PT (9.0-12.0) sec INR (<1.2) APTT (22.0-30.0) sec Sodium 133 L (137-145) mmol/L Potassium 4.4 (3.5-5.1) mmol/L Chloride 98 (98-107) mmol/L Carbon Dioxide 25 (22-30) mmol/L Anion Gap 10 mmol/L BUN 29 H (9-20) mg/dL Creatinine 0.94 (0.66-1.25) mg/dL Est GFR (CKD-EPI)AfAm >90 (>60 ml/min/1.73 sqM) Est GFR (CKD-EPI)NonAf 89 (>60 ml/min/1.73 sqM) Glucose 493 H (74-99) mg/dL Calcium 9.0 (8.4-10.2) mg/dL Magnesium 2.1 (1.6-2.3) mg/dL Total Bilirubin 0.6 (0.2-1.3) mg/dL AST 30 (17-59) U/L ALT 42 (21-72) U/L Alkaline Phosphatase 108 (38-126) U/L Total Creatine Kinase 47 L (55-170) U/L CK-MB (CK-2) 1.9 (0.0-2.4) ng/mL CK-MB (CK-2) Rel Index 4.0 Troponin I 0.078 H* (0.000-0.034) ng/mL NT-Pro-B Natriuret Pep pg/mL Total Protein 5.9 L (6.3-8.2) g/dL Albumin 3.8 (3.5-5.0) g/dL 05/14/18 05/14/18 Range/Units 12:12 12:12 WBC (3.8-10.6) k/uL RBC (4.30-5.90) m/uL Hgb (13.0-17.5) gm/dL Hct (39.0-53.0) % MCV (80.0-100.0) fL MCH (25.0-35.0) pg MCHC (31.0-37.0) g/dL RDW (11.5-15.5) % Plt Count (150-450) k/uL Neutrophils % % Lymphocytes % % Monocytes % % Eosinophils % % Basophils % % Neutrophils # (1.3-7.7) k/uL Lymphocytes # (1.0-4.8) k/uL Monocytes # (0-1.0) k/uL Eosinophils # (0-0.7) k/uL Basophils # (0-0.2) k/uL PT 12.0 (9.0-12.0) sec INR 1.1 (<1.2) APTT 25.0 (22.0-30.0) sec Sodium (137-145) mmol/L Potassium (3.5-5.1) mmol/L Chloride (98-107) mmol/L Carbon Dioxide (22-30) mmol/L Anion Gap mmol/L BUN (9-20) mg/dL Creatinine (0.66-1.25) mg/dL Est GFR (CKD-EPI)AfAm (>60 ml/min/1.73 sqM) Est GFR (CKD-EPI)NonAf (>60 ml/min/1.73 sqM) Glucose (74-99) mg/dL Calcium (8.4-10.2) mg/dL Magnesium (1.6-2.3) mg/dL Total Bilirubin (0.2-1.3) mg/dL AST (17-59) U/L ALT (21-72) U/L Alkaline Phosphatase (38-126) U/L Total Creatine Kinase (55-170) U/L CK-MB (CK-2) (0.0-2.4) ng/mL CK-MB (CK-2) Rel Index Troponin I (0.000-0.034) ng/mL NT-Pro-B Natriuret Pep 24818 pg/mL Total Protein (6.3-8.2) g/dL Albumin (3.5-5.0) g/dL - EKG Data -: EKG Interpreted by Me EKG shows normal: sinus rhythm (EKG shows a sinus rhythm with a occasional PVCs rate was 99. Interval 150 to QRS duration 118 daily since QTC 364/467 evidence of left anterior fascicular block nonspecific T-wave configuration and prolonged QT noted.) - Radiology Data Radiology results: report reviewed (Did review the imaging and report evidence of mild CHF with some evidence of a blunted costophrenic angles.), image reviewed Critical Care Time Critical Care Time: Yes Critical Care Time: 39 minutes of critical care time which includes initial presentation with history physical labs x-rays multiple reevaluation the patient response to therapy. Discussed with the patient family regarding the findings discussed with Dr. long regarding the findings. Review of old charting that was available. Admission orders and documentation of the above Disposition Clinical Impression: Systolic congestive heart failure, Adult respiratory distress syndrome, Acute exacerbation of chronic obstructive airways disease, Elevated troponin I level, Failure of outpatient treatment Disposition: ADMITTED IP TO THIS HOSP Condition: Serious Referrals: Yusuf Lind MD [Primary Care Provider] - 1-2 days
[2018-05-14 12:59] LABS: ALT 42 U/L (21-72); AST 30 U/L (17-59); Albumin 3.8 g/dL (3.5-5.0); Alkaline Phosphatase 108 U/L (38-126); Anion Gap 10 mmol/L; Basophils % (A) 0 %; Blood Urea Nitrogen 29 mg/dL (9-20); Carbon Dioxide 25 mmol/L (22-30); Chloride 98 mmol/L (98-107); Eosinophils % (A) 1 %; Glucose 493 mg/dL (74-99); HCT 41.7 % (39.0-53.0); Lymphocytes # (A) 0.8 k/uL (1.0-4.8); Lymphocytes % (A) 13 %; MCH 29.6 pg (25.0-35.0); MCHC 31.2 g/dL (31.0-37.0); MCV 94.8 fL (80.0-100.0); Magnesium 2.1 mg/dL (1.6-2.3); Mean Platelet Volume 6.4; Monocytes # (A) 0.4 k/uL (0-1.0); Monocytes % (A) 6 %; Neutrophils # (A) 4.9 k/uL (1.3-7.7); Neutrophils % (A) 78 %; Platelet Count 170 k/uL (150-450); Potassium 4.4 mmol/L (3.5-5.1); RDW 14.3 % (11.5-15.5); Sodium 133 mmol/L (137-145); Total Bilirubin 0.6 mg/dL (0.2-1.3); Total Protein 5.9 g/dL (6.3-8.2); WBC 6.2 k/uL (3.8-10.6)
[2018-05-14 13:00] LABS: INR 1.1 (<1.2)
--- NOTE | 2018-05-14 13:13 | XR ---
EXAMINATION TYPE: XR chest 2V DATE OF EXAM: 05/14/2018 COMPARISON: 05/04/2018 HISTORY: 57-year-old male difficulty breathing, shortness of breath TECHNIQUE: PA and lateral views FINDINGS: Left anterior chest wall AICD generator with right ventricular lead. Heart mildly enlarged. Mild diff use interstitial prominence. Small effusions. No dulce consolidation. IMPRESSION: Cardiomegaly with interstitial changes and trace effusions. Correlate for mild CHF. No dulce pulmonar y edema.
[2018-05-14 13:49] LABS: Creatine Kinase MB 1.9 ng/mL (0.0-2.4)
[2018-05-14 14:01] LABS: Troponin I 0.078 ng/mL (0.000-0.034)
[2018-05-14] MEDS ORDERED: SALINE NASAL GEL 14.1 GM TUBE TOPICAL PRN (14:37)
[2018-05-14] MEDS ORDERED: HEPARIN SODIUM,PORCINE 5,000 UNIT/ML 1 ML VIAL IV ONE (14:37)
[2018-05-14] MEDS ORDERED: HEPARIN SODIUM,PORCINE 5,000 UNIT/ML 1 ML VIAL IV PRN (14:37)
[2018-05-14] MEDS ORDERED: INSULIN REGULAR 100 UNIT/ML VIAL IV ONE (14:41)
[2018-05-14] MEDS ORDERED: HEPARIN SOD,PORK IN 0.45% NACL 25,000 UNIT in 0.45% NACL 1 250ML.BAG IV SCH (14:45)
[2018-05-14] MEDS ORDERED: FUROSEMIDE 40 MG TAB PO SCH (16:00)
[2018-05-14] MEDS: IPRATROPIUM-ALBUTEROL 3 ML NEB INHALATION SCH ×4 (16:00→23:38)
[2018-05-14] MEDS: FAMOTIDINE 20 MG TAB PO SCH (16:45)
[2018-05-14] MEDS: INSULIN ASPART (NovoLOG) 100 UNIT/ML VIAL SQ SCH ×2 (17:16→20:22)
[2018-05-14] MEDS: NITROGLYCERIN OINT 1 INCH/GM PACKET TOPICAL SCH ×2 (17:18→20:22)
[2018-05-14 17:28] LABS: Glucose,Whole Blood 524 mg/dL (75-99)
[2018-05-14 17:28] LABS: Glucose,Whole Blood 509 mg/dL (75-99)
[2018-05-14] MEDS ORDERED: methylPREDNISolone SOD SUCCI 125 MG/2 ML VIAL IV SCH (18:00)
[2018-05-14 18:38] LABS: Basophils % (A) 0 %; Eosinophils % (A) 0 %; Lymphocytes # (A) 0.4 k/uL (1.0-4.8); Lymphocytes % (A) 11 %; MCH 30.4 pg (25.0-35.0); MCHC 31.8 g/dL (31.0-37.0); MCV 95.6 fL (80.0-100.0); Mean Platelet Volume 7.2; Monocytes # (A) 0.1 k/uL (0-1.0); Monocytes % (A) 2 %; Neutrophils # (A) 3.4 k/uL (1.3-7.7); Neutrophils % (A) 86 %; Platelet Count 152 k/uL (150-450); RBC 4.29 m/uL (4.30-5.90); RDW 14.3 % (11.5-15.5)
[2018-05-14 19:06] LABS: INR 1.2 (<1.2); Partial Thromboplastin Time 60.2 sec (22.0-30.0); Prothrombin Time 12.3 sec (9.0-12.0)
[2018-05-14 20:05] VITALS: BMI 20.3
[2018-05-14] MEDS: SODIUM CHLORIDE 0.9% 1,000 ML IV SCH (20:21)
[2018-05-14] MEDS: SACUBITRIL/VALSARTAN 24 MG-26 MG TABLET PO SCH (20:21)
[2018-05-14] MEDS: PREGABALIN 75 MG CAP PO SCH ×2 (20:22→20:30)
[2018-05-14] MEDS: FUROSEMIDE 10 MG/ML 4 ML VIAL IV SCH (20:22)
[2018-05-14 20:41] LABS: Glucose,Whole Blood 387 mg/dL (75-99)
[2018-05-14] MEDS: ZOLPIDEM 10 MG TAB PO PRN (23:34)
[2018-05-15 05:56] LABS: Glucose,Whole Blood 434 mg/dL (75-99)
[2018-05-15 06:32] LABS: Basophils % (A) 0 %; Eosinophils % (A) 1 %; HCT 39.9 % (39.0-53.0); HGB 12.5 gm/dL (13.0-17.5); Hypochromasia Slight; Lymphocytes # (A) 0.7 k/uL (1.0-4.8); Lymphocytes % (A) 11 %; MCH 30.4 pg (25.0-35.0); MCHC 31.4 g/dL (31.0-37.0); MCV 96.8 fL (80.0-100.0); Mean Platelet Volume 6.5; Monocytes # (A) 0.3 k/uL (0-1.0); Monocytes % (A) 5 %; Neutrophils # (A) 5.2 k/uL (1.3-7.7); Neutrophils % (A) 82 %; Platelet Count 140 k/uL (150-450); RBC 4.12 m/uL (4.30-5.90); RDW 14.2 % (11.5-15.5); WBC 6.4 k/uL (3.8-10.6)
[2018-05-15] MEDS: INSULIN ASPART (NovoLOG) 100 UNIT/ML VIAL SQ SCH ×4 (06:52→20:52)
[2018-05-15] MEDS: IPRATROPIUM-ALBUTEROL 3 ML NEB INHALATION SCH ×4 (08:30→20:41)
[2018-05-15] MEDS ORDERED: INSULIN DETEMIR (LEVEMIR) 100 UNIT/ML SYR SQ SCH (09:00)
--- NOTE | 2018-05-15 09:25 | P.HPIM ---
History of Present Illness H&P Date: 05/15/18 Chief Complaint: Edema with shortness of breath. This is a history of physical on a 57-year-old white male with known history of cardiomyopathy AICD placement with diabetes and COPD who was recently discharged for similar presentation who states that he was at his sister's, who was a nurse and ended up going home for a day and had significant edema of his lower extremities and genital area. The patient has had similar symptoms in the past and was told, from his home health aide and nurse today be reevaluated in the hospital. The patient is now readmitted for significant edema and congestive heart failure element. The patient's blood sugar has been labile. Review of Systems Constitutional: Reports fatigue, Reports weakness Eyes: denies blurred vision, denies pain Ears, nose, mouth and throat: Denies headache, Denies sore throat Cardiovascular: Reports dyspnea on exertion, Reports edema, Reports leg edema, Reports paroxysmal nocturnal dyspnea Respiratory: Denies cough Gastrointestinal: Denies abdominal pain, Denies diarrhea, Denies nausea, Denies vomiting Musculoskeletal: Denies myalgias Integumentary: Denies pruritus, Denies rash Neurological: Denies numbness, Denies weakness Past Medical History Past Medical History: Heart Failure, COPD, Diabetes Mellitus, GERD/Reflux, Pneumonia, Renal Disease Additional Past Medical History / Comment(s): Severe COPD, chronic hypoxic respiratory failure, cardiomyopathy, AICD placement, chronic alcoholism, chronic pancreatitis, diabetes mellitus, hypertension, hyperlipidemia, chronic smoker, chronic pancreatic insufficiency with malabsorption, pancreatic pseudocyst, history of degenerative arthritis, history of bone infection, history of perforated left tympanic membranes History of Any Multi-Drug Resistant Organisms: None Reported Past Surgical History: AICD Past Anesthesia/Blood Transfusion Reactions: No Reported Reaction Type of Cardiac Device: AICD Device Placement Date:: UNKNOWN Past Psychological History: No Psychological Hx Reported Additional Psychological History / Comment(s): pt lives alone uses 02 4 liters n /c. has home care services but not sure of the name of company. also has a nebulizer, glucometer.independant/ drives occ or sisters take him to appts. Smoking Status: Former smoker Past Alcohol Use History: None Reported Additional Past Alcohol Use History / Comment(s): started smoking age 8, smoked 2 ppd, quit 2014 after severl attempts to quit then restarted 10-2018- smokes 8 cig per day, denies any current alcohol use Past Drug Use History: None Reported Additional Drug Use History / Comment(s): in the used cocaine. - Past Family History Father Family Medical History: Congestive Heart Failure (CHF), COPD, Diabetes Mellitus Additional Family Medical History / Comment(s): mrsa, gbs, asbestoes exposure/ lings Mother Family Medical History: Diabetes Mellitus, Hypertension Medications and Allergies Home Medications Medication Instructions Recorded Confirmed Type HYDROcodone/APAP 10-325MG [[place] 1 tab PO Q4HR PRN 03/22/18 05/14/18 History 10-325] Insulin Degludec [Tresiba 28 unit SQ DAILY 03/22/18 05/14/18 History Flextouch U-200] Insulin Lispro [humaLOG Kwikpen] See Protocol SQ ACHS 03/22/18 05/14/18 History Pregabalin [Lyrica] 150 mg PO TID 03/22/18 05/14/18 History Albuterol Nebulized [Ventolin 2.5 mg INHALATION RT-QID PRN nebu 03/24/18 Rx Nebulized] Cetirizine HCl [Zyrtec] 10 mg PO DAILY 05/04/18 05/14/18 History Docusate [Colace] 100 mg PO DAILY 05/04/18 05/14/18 History Ergocalciferol (Vitamin D2) 50,000 unit PO Q7D 05/04/18 05/14/18 History [Vitamin D2] Famotidine 20 mg PO BID 05/04/18 05/14/18 History Zolpidem [Ambien] 10 mg PO HS PRN 05/04/18 05/14/18 History Metoprolol Succinate (ER) [Toprol 25 mg PO DAILY #30 tab.er.24h 05/09/18 Rx XL] Saline Nasal Gel [Centuria Nasal Gel] 1 applic TOPICAL Q4HR PRN gm 05/09/18 Rx predniSONE 40 mg PO DAILY #7 tab 05/09/18 05/14/18 Rx Sacubitril/Valsartan [Entresto 24 1 tab PO BID 05/14/18 05/14/18 History mg-26 mg Tablet] Allergies Allergy/AdvReac Type Severity Reaction Status Date / Time meperidine HCl [From Demerol] Allergy Severe Rapid Verified 05/14/18 11:22 Heart Rate/VOMITING ibuprofen [From Motrin] AdvReac Vomiting Verified 05/14/18 11:22 Physical Exam Vitals: Vital Signs Temp Pulse Pulse Resp BP BP Pulse Ox 05/15/18 08:45 90 05/15/18 08:30 90 96 05/15/18 04:00 97.1 F L 69 15 105/62 95 05/15/18 00:00 73 21 90/55 100 05/14/18 23:37 72 05/14/18 23:29 98 05/14/18 23:26 87 05/14/18 20:27 101 H 05/14/18 20:18 103 H 05/14/18 20:00 97.4 F L 97 22 126/88 100 05/14/18 19:25 97.8 F 103 H 18 127/91 99 05/14/18 18:30 103 H 18 127/91 99 05/14/18 18:15 96 05/14/18 18:07 88 05/14/18 18:00 137/103 05/14/18 17:30 99 27 H 137/103 99 05/14/18 17:00 104 H 20 130/95 05/14/18 16:30 130/95 05/14/18 16:00 103 H 20 117/83 05/14/18 15:30 102 H 29 H 117/83 05/14/18 15:00 121/89 05/14/18 14:59 97.4 F L 97 22 126/88 100 05/14/18 14:30 114 H 29 H 121/89 05/14/18 14:00 97 29 H 117/98 05/14/18 13:30 105 H 11 L 117/98 100 05/14/18 13:00 117/98 05/14/18 12:30 100 15 117/98 100 05/14/18 12:20 22 05/14/18 12:03 100 28 H 05/14/18 11:35 92 05/14/18 11:24 92 05/14/18 10:57 97.8 F 101 H 24 128/86 98 Intake and Output 05/14/18 05/15/18 05/15/18 22:59 06:59 14:59 Intake Total 80 146.013 Balance 80 146.013 Intake: IV 80 100 Sodium Chloride 0.9% 1, 80 100 000 ml @ 20 mls/hr IV . Q24H [facility] Rx#:[id number] Intake, IV Titration 46.013 Amount Heparin Sod,Pork in 0.45% 46.013 NaCl 25,000 unit In 0.45 % NaCl 1 250ml.bag @ 12 UNITS/KG/HR 6.8 mls/hr IV .Q24H [facility] Rx#:[id number] Other: Voiding Method Toilet Toilet # Voids 3 2 Weight 62.5 kg - Constitutional General appearance: thin - EENT Eyes: EOMI - Neck Neck: no lymphadenopathy - Respiratory Respiratory: bilateral: diminished - Cardiovascular Rhythm: regular Heart sounds: normal: S1, S2 Abnormal Heart Sounds: no S3 Gallop - Gastrointestinal General gastrointestinal: soft, no tenderness - Neurologic Neurologic: CNII-XII intact - Musculoskeletal Musculoskeletal: generalized weakness Results CBC & Chem 7: 05/15/18 05:52 05/14/18 12:12 Labs: Abnormal Lab Results - Last 24 Hours (Table) 05/14/18 05/14/18 05/14/18 Range/Units 12:12 12:12 12:12 RBC (4.30-5.90) m/uL Hgb (13.0-17.5) gm/dL Plt Count (150-450) k/uL Lymphocytes # 0.8 L (1.0-4.8) k/uL PT (9.0-12.0) sec INR (<1.2) APTT (22.0-30.0) sec Sodium 133 L (137-145) mmol/L BUN 29 H (9-20) mg/dL Glucose 493 H (74-99) mg/dL POC Glucose (mg/dL) (75-99) mg/dL Total Creatine Kinase 47 L (55-170) U/L Troponin I 0.078 H* (0.000-0.034) ng/mL Total Protein 5.9 L (6.3-8.2) g/dL 05/14/18 05/14/18 05/14/18 Range/Units 16:55 16:57 18:17 RBC 4.29 L (4.30-5.90) m/uL Hgb (13.0-17.5) gm/dL Plt Count (150-450) k/uL Lymphocytes # 0.4 L (1.0-4.8) k/uL PT (9.0-12.0) sec INR (<1.2) APTT (22.0-30.0) sec Sodium (137-145) mmol/L BUN (9-20) mg/dL Glucose (74-99) mg/dL POC Glucose (mg/dL) 509 H 524 H (75-99) mg/dL Total Creatine Kinase (55-170) U/L Troponin I (0.000-0.034) ng/mL Total Protein (6.3-8.2) g/dL 05/14/18 05/14/18 05/15/18 Range/Units : 20:15 00:21 RBC (4.30-5.90) m/uL Hgb (13.0-17.5) gm/dL Plt Count (150-450) k/uL Lymphocytes # (1.0-4.8) k/uL PT 12.3 H (9.0-12.0) sec INR 1.2 H (<1.2) APTT 60.2 H (22.0-30.0) sec Sodium (137-145) mmol/L BUN (9-20) mg/dL Glucose (74-99) mg/dL POC Glucose (mg/dL) 387 H (75-99) mg/dL Total Creatine Kinase (55-170) U/L Troponin I 0.062 H* (0.000-0.034) ng/mL Total Protein (6.3-8.2) g/dL 05/15/18 05/15/18 05/15/18 Range/Units 05:52 05:52 05:52 RBC 4.12 L (4.30-5.90) m/uL Hgb 12.5 L (13.0-17.5) gm/dL Plt Count 140 L (150-450) k/uL Lymphocytes # 0.7 L (1.0-4.8) k/uL PT (9.0-12.0) sec INR (<1.2) APTT 30.8 H (22.0-30.0) sec Sodium (137-145) mmol/L BUN (9-20) mg/dL Glucose (74-99) mg/dL POC Glucose (mg/dL) (75-99) mg/dL Total Creatine Kinase (55-170) U/L Troponin I 0.060 H* (0.000-0.034) ng/mL Total Protein (6.3-8.2) g/dL 05/15/18 Range/Units 05:54 RBC (4.30-5.90) m/uL Hgb (13.0-17.5) gm/dL Plt Count (150-450) k/uL Lymphocytes # (1.0-4.8) k/uL PT (9.0-12.0) sec INR (<1.2) APTT (22.0-30.0) sec Sodium (137-145) mmol/L BUN (9-20) mg/dL Glucose (74-99) mg/dL POC Glucose (mg/dL) 434 H (75-99) mg/dL Total Creatine Kinase (55-170) U/L Troponin I (0.000-0.034) ng/mL Total Protein (6.3-8.2) g/dL Thrombosis Risk Factor Assmnt - Choose All That Apply Any of the Below Risk Factors Present?: Yes Each Factor Represents 1 point: Age 41-60 years, Swollen legs (current) Other Risk Factors: No Other congenital or acquired thrombophilia - If yes, enter type in comment: No Thrombosis Risk Factor Assessment Total Risk Factor Score: 2 Thrombosis Risk Factor Assessment Level: Low Risk Assessment and Plan (1) Acute exacerbation of chronic obstructive airways disease Current Visit: Yes Status: Acute Code(s): J44.1 - CHRONIC OBSTRUCTIVE PULMONARY DISEASE W (ACUTE) EXACERBATION SNOMED Code(s): 336259543 (2) Adult respiratory distress syndrome Current Visit: Yes Status: Acute Code(s): J80 - ACUTE RESPIRATORY DISTRESS SYNDROME SNOMED Code(s): 70823174 (3) Elevated troponin I level Current Visit: Yes Status: Acute Code(s): R74.8 - ABNORMAL LEVELS OF OTHER SERUM ENZYMES SNOMED Code(s): 923176796 (4) Failure of outpatient treatment Current Visit: Yes Status: Acute Code(s): Z78.9 - OTHER SPECIFIED HEALTH STATUS SNOMED Code(s): 902997924 (5) Systolic congestive heart failure Current Visit: Yes Status: Acute Code(s): I50.20 - UNSPECIFIED SYSTOLIC ( CONGESTIVE) HEART FAILURE SNOMED Code(s): 072066448 (6) Chronic pancreatitis Current Visit: No Status: Acute Code(s): K86.1 - OTHER CHRONIC PANCREATITIS SNOMED Code(s): 981912865 (7) Diabetes Current Visit: No Status: Acute Code(s): E11.9 - TYPE 2 DIABETES MELLITUS WITHOUT COMPLICATIONS SNOMED Code(s): 49509680 (8) High risk for readmission Current Visit: No Status: Acute Code(s): Z91.89 - OT PERSONAL RISK FACTORS , NOT ELSEWHERE CLASSIFIED SNOMED Code(s): 062653823 (9) NICM (nonischemic cardiomyopathy) Current Visit: No Status: Acute Code(s): I42.9 - CARDIOMYOPATHY, UNSPECIFIED SNOMED Code(s): 71014388 Plan: We'll go ahead and continue diuresis. Multiple consultants including pulmonology and cardiology. Place on appropriate sliding scale and appropriate diet. New. Check CBC and CMP in a.m. per Prognosis is guarded secondary to his multiple comorbidities. Otherwise, he is a full code. Check CBC and CMP in a.m. Time with Patient: Greater than 30
[2018-05-15] MEDS: predniSONE 20 MG TAB PO SCH (09:26)
[2018-05-15] MEDS: DOCUSATE 100 MG CAP PO SCH (09:27)
[2018-05-15] MEDS: PREGABALIN 75 MG CAP PO SCH ×3 (09:27→20:51)
[2018-05-15] MEDS: SACUBITRIL/VALSARTAN 24 MG-26 MG TABLET PO SCH (09:27)
[2018-05-15] MEDS: METOPROLOL SUCCINATE (ER) 25 MG TAB.ER.24H PO SCH (09:27)
[2018-05-15] MEDS: LORATADINE 10 MG TAB PO SCH (09:27)
[2018-05-15] MEDS: FAMOTIDINE 20 MG TAB PO SCH ×2 (09:27→20:51)
[2018-05-15] MEDS: NITROGLYCERIN OINT 1 INCH/GM PACKET TOPICAL SCH (09:27)
--- NOTE | 2018-05-15 09:33 | P.CRDCN ---
History of Present Illness Consult date: 05/15/18 Requesting physician: Yusuf Lind Consult reason: congestive heart failure Chief complaint: Shortness of breath, edema History of present illness: This is a 57-year-old gentleman who follows with Dr. Be in the office. He has a known history of nonischemic cardiomyopathy secondary to EtOH abuse, chronic systolic congestive heart failure, hypertension, diabetes, COPD, O2 dependence, diaphragmatic paralysis, hyperlipidemia, prior AICD implantation , chronic pancreatitis, nicotine dependence,,History of alcoholism. He was just recently in the hospital with an exacerbation of congestive cardiac failure. He re-presents to the hospital on this occasion with symptoms of orthopnea, shortness of breath and edema. He states that he has significant swelling in both of his legs up into his scrotal area. According to the patient he was taking his medications as prescribed, he denies using any alcohol or excessive salt since his discharge from here. Chest x-ray on arrival here shows cardiomegaly with interstitial change and trace effusions, mild congestive heart failure. EKG shows a normal sinus rhythm with occasional PVCs, nonspecific ST changes. Blood pressure 105/60 with a heart rate in the 60s, 95% on 4 L of oxygen. Blood cell count 6.4, hemoglobin 12.5, platelet count 140. Sodium 133, potassium 4.4, BUN 29 and creatinine 0.9. Blood glucose on arrival 493. Magnesium 2.1. BNP level 43,100. troponins .078, .062 , .060. Patient is noted on recent admissions to have abnormality in troponins. BNP level on the seventh of this month 16,400. At the time of my examination this morning, he is sitting up in bed, states that he is already put out a significant amount of urine since his admission here. Continues to feel short of breath however much improved from admission. Past Medical History Past Medical History: Heart Failure, COPD, Diabetes Mellitus, GERD/Reflux, Pneumonia, Renal Disease Additional Past Medical History / Comment(s): Severe COPD, chronic hypoxic respiratory failure, cardiomyopathy, AICD placement, chronic alcoholism, chronic pancreatitis, diabetes mellitus, hypertension, hyperlipidemia, chronic smoker, chronic pancreatic insufficiency with malabsorption, pancreatic pseudocyst, history of degenerative arthritis, history of bone infection, history of perforated left tympanic membranes History of Any Multi-Drug Resistant Organisms: None Reported Past Surgical History: AICD Past Anesthesia/Blood Transfusion Reactions: No Reported Reaction Type of Cardiac Device: AICD Device Placement Date:: UNKNOWN Past Psychological History: No Psychological Hx Reported Additional Psychological History / Comment(s): pt lives alone uses 02 4 liters n /c. has home care services but not sure of the name of company. also has a nebulizer, glucometer.independant/ drives occ or sisters take him to appts. Smoking Status: Former smoker Past Alcohol Use History: None Reported Additional Past Alcohol Use History / Comment(s): started smoking age 8, smoked 2 ppd, quit 2014 after severl attempts to quit then restarted - smokes 8 cig per day, denies any current alcohol use Past Drug Use History: None Reported Additional Drug Use History / Comment(s): in the used cocaine. - Past Family History Father Family Medical History: Congestive Heart Failure (CHF), COPD, Diabetes Mellitus Additional Family Medical History / Comment(s): mrsa, gbs, asbestoes exposure/ lings Mother Family Medical History: Diabetes Mellitus, Hypertension Medications and Allergies Home Medications Medication Instructions Recorded Confirmed Type HYDROcodone/APAP 10-325MG [[place] 1 tab PO Q4HR PRN 03/22/18 05/14/18 History 10-325] Insulin Degludec [Tresiba 28 unit SQ DAILY 03/22/18 05/14/18 History Flextouch U-200] Insulin Lispro [humaLOG Kwikpen] See Protocol SQ ACHS 03/22/18 05/14/18 History Pregabalin [Lyrica] 150 mg PO TID 03/22/18 05/14/18 History Albuterol Nebulized [Ventolin 2.5 mg INHALATION RT-QID PRN nebu 03/24/18 Rx Nebulized] Cetirizine HCl [Zyrtec] 10 mg PO DAILY 05/04/18 05/14/18 History Docusate [Colace] 100 mg PO DAILY 05/04/18 05/14/18 History Ergocalciferol (Vitamin D2) 50,000 unit PO Q7D 05/04/18 05/14/18 History [Vitamin D2] Famotidine 20 mg PO BID 05/04/18 05/14/18 History Zolpidem [Ambien] 10 mg PO HS PRN 05/04/18 05/14/18 History Metoprolol Succinate (ER) [Toprol 25 mg PO DAILY #30 tab.er.24h 05/09/18 Rx XL] Saline Nasal Gel [Deputy Nasal Gel] 1 applic TOPICAL Q4HR PRN gm 05/09/18 Rx predniSONE 40 mg PO DAILY #7 tab 05/09/18 05/14/18 Rx Sacubitril/Valsartan [Entresto 24 1 tab PO BID 05/14/18 05/14/18 History mg-26 mg Tablet] Allergies Allergy/AdvReac Type Severity Reaction Status Date / Time meperidine HCl [From Demerol] Allergy Severe Rapid Verified 05/14/18 11:22 Heart Rate/VOMITING ibuprofen [From Motrin] AdvReac Vomiting Verified 05/14/18 11:22 Physical Exam Vitals: Vital Signs Temp Pulse Pulse Resp BP BP Pulse Ox 05/15/18 08:45 90 05/15/18 08:30 90 96 05/15/18 04:00 97.1 F L 69 15 105/62 95 05/15/18 00:00 73 21 90/55 100 05/14/18 23:37 72 05/14/18 23:29 98 05/14/18 23:26 87 05/14/18 20:27 101 H 05/14/18 20:18 103 H 05/14/18 20:00 97.4 F L 97 22 126/88 100 05/14/18 19:25 97.8 F 103 H 18 127/91 99 05/14/18 18:30 103 H 18 127/91 99 05/14/18 18:15 96 05/14/18 18:07 88 05/14/18 18:00 137/103 05/14/18 17:30 99 27 H 137/103 99 05/14/18 17:00 104 H 20 130/95 05/14/18 16:30 130/95 05/14/18 16:00 103 H 20 117/83 05/14/18 15:30 102 H 29 H 117/83 05/14/18 15:00 121/89 05/14/18 14:59 97.4 F L 97 22 126/88 100 05/14/18 14:30 114 H 29 H 121/89 05/14/18 14:00 97 29 H 117/98 05/14/18 13:30 105 H 11 L 117/98 100 05/14/18 13:00 117/98 05/14/18 12:30 100 15 117/98 100 05/14/18 12:20 22 05/14/18 12:03 100 28 H 05/14/18 11:35 92 05/14/18 11:24 92 05/14/18 10:57 97.8 F 101 H 24 128/86 98 Intake and Output 05/14/18 05/15/18 05/15/18 22:59 06:59 14:59 Intake Total 80 146.013 Balance 80 146.013 Intake: IV 80 100 Sodium Chloride 0.9% 1, 80 100 000 ml @ 20 mls/hr IV . Q24H [facility] Rx#:[id number] Intake, IV Titration 46.013 Amount Heparin Sod,Pork in 0.45% 46.013 NaCl 25,000 unit In 0.45 % NaCl 1 250ml.bag @ 12 UNITS/KG/HR 6.8 mls/hr IV .Q24H [facility] Rx#:[id number] Other: Voiding Method Toilet Toilet # Voids 3 2 Weight 62.5 kg PHYSICAL EXAMINATION: GENERAL: 57-year-old gentleman in no acute distress at the time of my examination HEENT: Head is atraumatic, normocephalic. Pupils equal, round. Sclera anicteric. Conjunctiva are clear. Mucous membranes of the mouth are moist. Neck is supple. There is elevated jugular venous pressure. No carotid bruit is heard. HEART EXAMINATION: Heart S1 and S2 systolic murmur is heard. CHEST EXAMINATION: Lungs reveal coarse wheezing throughout with diminished air entry bilaterally to the bases. ABDOMEN: Soft, nontender. Bowel sounds are heard. No organomegaly noted. EXTREMITIES: 2+ peripheral pulses with 1-2+ evidence of peripheral edema and no calf tenderness noted. NEUROLOGIC patient is awake, alert and oriented 3 . . Results 05/15/18 05:52 05/14/18 12:12 Cardiac Enzymes 05/14/18 05/14/18 05/15/18 Range/Units 12:12 12:12 00:21 AST 30 (17-59) U/L CK-MB (CK-2) 1.9 (0.0-2.4) ng/mL Troponin I 0.078 H* 0.062 H* (0.000-0.034) ng/mL 05/15/18 Range/Units 05:52 AST (17-59) U/L CK-MB (CK-2) (0.0-2.4) ng/mL Troponin I 0.060 H* (0.000-0.034) ng/mL Coagulation 05/14/18 05/14/18 05/15/18 Range/Units 12:12 18:17 05:52 PT 12.0 12.3 H (9.0-12.0) sec APTT 25.0 60.2 H 30.8 H (22.0-30.0) sec CBC 05/14/18 05/14/18 05/15/18 Range/Units 12:12 18:17 05:52 WBC 6.2 4.0 6.4 (3.8-10.6) k/uL RBC 4.40 4.29 L 4.12 L (4.30-5.90) m/uL Hgb 13.0 13.0 12.5 L (13.0-17.5) gm/dL Hct 41.7 41.0 39.9 (39.0-53.0) % Plt Count 170 152 140 L (150-450) k/uL Comprehensive Metabolic Panel 05/14/18 Range/Units 12:12 Sodium 133 L (137-145) mmol/L Potassium 4.4 (3.5-5.1) mmol/L Chloride 98 (98-107) mmol/L Carbon Dioxide 25 (22-30) mmol/L BUN 29 H (9-20) mg/dL Creatinine 0.94 (0.66-1.25) mg/dL Glucose 493 H (74-99) mg/dL Calcium 9.0 (8.4-10.2) mg/dL AST 30 (17-59) U/L ALT 42 (21-72) U/L Alkaline Phosphatase 108 (38-126) U/L Total Protein 5.9 L (6.3-8.2) g/dL Albumin 3.8 (3.5-5.0) g/dL Current Medications Generic Name Dose Route Start Last Admin Trade Name Freq PRN Reason Stop Dose Admin Hydrocodone Bitart/Acetaminophen 1 each 05/14/18 14:37 [place] 10 PO Q4HR PRN Moderate Pain Albuterol/Ipratropium 3 ml 05/14/18 16:00 05/15/18 08:30 Duoneb 0.5 Mg-3 Mg/3 Ml Soln INHALATION 3 ml Q4HR [facility] Administration Docusate Sodium 100 mg 05/15/18 09:00 Colace PO DAILY [facility] Ergocalciferol 50,000 unit 05/20/18 09:00 Vitamin D2 PO Q7D [facility] Famotidine 20 mg 05/14/18 21:00 05/14/18 16:45 Pepcid PO 20 mg BID [facility] Administration Furosemide 40 mg 05/14/18 21:00 05/14/18 20:22 Lasix IV 40 mg Q12HR [facility] Administration Heparin Sodium (Porcine) 0 unit 05/14/18 14:37 Heparin IV PER PROTOCOL PRN Low PTT Protocol Heparin Sodium/Sodium Chloride 250 mls @ 6.8 mls/hr 05/14/18 14:45 05/14/18 23:23 25,000 unit/ Sodium Chloride IV 12 units/kg/hr .Q24H [facility] 6.8 mls/hr Titration Protocol 12 UNITS/KG/HR Sodium Chloride 1,000 mls @ 20 mls/hr 05/14/18 14:45 05/14/18 20:21 Saline 0.9% IV 20 mls/hr .Q24H [facility] Administration Insulin Aspart 0 unit 05/14/18 17:30 05/15/18 06:52 Novolog SQ 11 unit ACHS [facility] Administration Protocol Insulin Detemir 28 unit 05/15/18 09:00 Levemir SQ DAILY [facility] Loratadine 10 mg 05/15/18 09:00 Claritin PO DAILY [facility] Metoprolol Succinate 25 mg 05/15/18 09:00 Toprol Xl PO DAILY [facility] Nitroglycerin 1 inch 05/14/18 18:00 05/14/18 20:22 Nitro-Bid Oint TOPICAL 1 inch QID [facility] Administration Prednisone 40 mg 05/15/18 09:00 PO DAILY [facility] Pregabalin 150 mg 05/14/18 16:00 05/14/18 20:30 Lyrica PO Not Given TID [facility] Sacubitril/Valsartan 1 each 05/14/18 21:00 05/14/18 20:21 Entresto 24 Mg-26 Mg Tablet PO 1 each BID [facility] Administration Sodium Chloride 1 applic 05/14/18 14:37 Deputy Nasal Gel TOPICAL Q4HR PRN Dry Nasal Passages Zolpidem Tartrate 10 mg 05/14/18 14:37 05/14/18 23:34 Ambien PO 10 mg HS PRN Administration Insomnia Intake and Output 05/14/18 05/15/18 05/15/18 22:59 06:59 14:59 Intake Total 80 146.013 Balance 80 146.013 Intake: IV 80 100 Sodium Chloride 0.9% 1, 80 100 000 ml @ 20 mls/hr IV . Q24H [facility] Rx#:[id number] Intake, IV Titration 46.013 Amount Heparin Sod,Pork in 0.45% 46.013 NaCl 25,000 unit In 0.45 % NaCl 1 250ml.bag @ 12 UNITS/KG/HR 6.8 mls/hr IV .Q24H [facility] Rx#:[id number] Other: Voiding Method Toilet Toilet # Voids 3 2 Weight 62.5 kg 05/15/18 05:52 05/14/18 12:12 EKG Interpretations (text) EKG shows sinus rhythm with occasional PVC and nonspecific ST-T wave changes Assessment and Plan Plan: Assessment and plan #1 systolic congestive heart failure acute on chronic #2 nonischemic cardiomyopathy secondary to EtOH abuse #3 COPD #4 nicotine dependence #5 diabetes, uncontrolled #6 hypertension #7 hyperlipidemia #8 EtOH abuse Plan Patient had an echocardiogram with Doppler study performed earlier this month, revealed an ejection fraction of less than 20%. We will not repeat an echo on this admission. We will discontinue the IV push Lasix and put the patient on a Lasix drip today. Continue to monitor intake and output along with daily weights and daily lytes BUN and creatinine. Continue metoprolol and Entresto. DNP note has been reviewed, I agree with a documented findings and plan of care. Patient was seen and examined.
[2018-05-15] MEDS ORDERED: SACUBITRIL/VALSARTAN 24 MG-26 MG TABLET PO ONE (10:30)
[2018-05-15 11:20] LABS: Glucose,Whole Blood 364 mg/dL (75-99)
[2018-05-15] MEDS: SPIRONOLACTONE 25 MG TAB PO SCH (12:16)
[2018-05-15] MEDS: FUROSEMIDE 100 MG in SODIUM CHLORIDE 0.9% 90 ML IV SCH ×2 (12:17→18:42)
[2018-05-15] MEDS: FUROSEMIDE 10 MG/ML 4 ML VIAL IV SCH (13:03)
[2018-05-15] MEDS: NICOTINE 21MG/24HR PATCH TRANSDERM SCH (13:08)
[2018-05-15] MEDS ORDERED: INSULIN DETEMIR (LEVEMIR) 100 UNIT/ML SYR SQ ONE (13:30)
[2018-05-15] MEDS ORDERED: IPRATROPIUM-ALBUTEROL 3 ML NEB INHALATION PRN (13:58)
[2018-05-15 16:30] LABS: Glucose,Whole Blood 106 mg/dL (75-99)
[2018-05-15] MEDS: SODIUM CHLORIDE 0.9% 1,000 ML IV SCH ×2 (17:41→20:53)
[2018-05-15] MEDS ORDERED: SYMBICORT 160-4.5 MCG INHALER INHALATION SCH (20:00)
[2018-05-15] MEDS: SYMBICORT 160-4.5 MCG INHALER INHALATION SCH (20:41)
[2018-05-15 20:47] LABS: Glucose,Whole Blood 187 mg/dL (75-99)
[2018-05-15] MEDS: SACUBITRIL/VALSARTAN 49 MG-51 MG TABLET PO SCH (20:51)
--- NOTE | 2018-05-15 21:18 | CONS ---
CONSULTATION This is a 57-year-old male with a history of heart failure and COPD. He was recently in the hospital. He was discharged a couple days back. He apparently comes into the hospital with similar complaints of increasing shortness of breath, primarily on exertion but also at rest. The patient also has significant lower extremity edema. He denies any chest pain or chest discomfort. He was seen in the emergency room, admitted with a diagnosis of congestive heart failure and COPD exacerbations. The patient is well known to my nurse practitioner who sees him with me. She remembers him being in the hospital recently and sees my partner Dr. Khanna in the clinic. The patient does have a well-established history of heart failure and COPD. Feeling better today. Denies any chest pain or chest discomfort. No fever or chills. Not really coughing up much phlegm. His legs were swollen, but improved today. HOME MEDICATIONS: Include [place], insulin, Lyrica, Zyrtec, Colace, vitamin D2, famotidine, Ambien, Entresto, albuterol, metoprolol, saline nasal gel, prednisone. ALLERGIES: MEPERIDINE AND IBUPROFEN. MEDICAL HISTORY: CHF, COPD, diabetes, GERD, pneumonia, renal failure, chronic hypoxemic respiratory failure, cardiomyopathy, AICD placement, chronic alcohol abuse, chronic pancreatitis, hypertension, hyperlipidemia, pancreatic insufficiency, pancreatic pseudocyst, DJD, osteomyelitis and perforated tympanic membrane. SURGICAL HISTORY: Includes among other things, AICD placement. SOCIAL HISTORY: Positive for previous tobacco use. The patient does not smoke currently. Denies any alcohol use or illicit drug use. FAMILY HISTORY: Positive for congestive heart failure, COPD, diabetes, MRSA infection, asbestos exposure, and hypertension. REVIEW OF SYSTEMS: Constitutional: Weakness. Neurologic negative. HEENT negative. Cardiovascular negative. Pulmonary: Shortness of breath. GI/ negative. Rheumatologic: Negative. Immunologic negative. ENDOCRINOLOGIC: Negative. DERMATOLOGIC: Negative. PHYSICAL EXAMINATION: Current vital signs are reviewed. Temperature is 97.7. Heart rate 76, respiratory rate 16, blood pressure 92/59 mean 74 L. Saturation between 96% and 98%. Appears in no acute distress. He is lying on his left side. He states he does feel better. HEENT examination is grossly unremarkable. Mucous membranes are moist. No oral lesions. NECK: Supple. Full range of motion. No adenopathy or thyromegaly. Cardiovascular examination reveals a regular rhythm and rate. S1, S2 normal. Heart sounds distant. Soft systolic murmur is noted. LUNGS: Some bibasilar crackles. There is some coarse rhonchi. There is some expiratory wheezes. Breath sounds are diminished throughout. ABDOMEN: Soft. Bowel sounds are heard. Extremities are intact. There is some peripheral edema. Skin without rash. Neurologic examination is brief but nonfocal. LABORATORY STUDIES: White count 6.4, hemoglobin 12.5, hematocrit 39.9, platelet count 140,000. PTT is 30.8. PT/INR is 12.3 and 1.2. Troponins were 0.062 and 0.060. His N-terminal proBNP was quite elevated at 43,100. Sodium 133, potassium 4.4, chloride 98, CO2 25, BUN and creatinine were 29 and 0.94. Chest x-ray shows changes of COPD and CHF. I believe CHF predominates. There is cardiomegaly with some interstitial changes. There is some fluid in the minor fissure and small pleural effusions. Medications are reviewed. ASSESSMENT: 1. Shortness of breath with hypoxia acute hypoxemic respiratory failure, likely multifactorial in part mostly related to underlying congestive heart failure, but also a component of chronic obstructive pulmonary disease. 2. History of congestive heart failure. 3. History of severe chronic obstructive pulmonary disease. 4. Chronic hypoxemic respiratory failure. 5. History of diabetes mellitus. 6. Gastroesophageal reflux disease. 7. History of pneumonia. 8. Chronic kidney disease. 9. Chronic pancreatitis. 10.History of chronic alcohol abuse. 11.Status post AICD placement. 12.Cardiomyopathy. 13.Hypertension. 14.Hyperlipidemia. 15.Pancreatic exocrine insufficiency. 16.Degenerative joint disease. 17.Pancreatic pseudocyst. 18.History of osteomyelitis. 19.History of perforated left tympanic membrane. PLAN: The patient's medications are reviewed. We will make sure that he is on appropriate medications for COPD as well as include updrafts q.i.d. and p.r.n. as well as Pulmicort 1 mg and Perforomist twice a day. Additional recommendations and suggestions are forthcoming. We will continue to follow. Prognosis is guarded. He is also being seen by the primary service and Cardiology. MMODL / IJN: [id number] /
[2018-05-15 23:38] LABS: Hemoglobin A1C 11.6 % (4.0-6.0)
[2018-05-16] MEDS: FUROSEMIDE 100 MG in SODIUM CHLORIDE 0.9% 90 ML IV SCH ×3 (00:33→20:19)
[2018-05-16 06:12] LABS: Glucose,Whole Blood 186 mg/dL (75-99)
[2018-05-16] MEDS: INSULIN ASPART (NovoLOG) 100 UNIT/ML VIAL SQ SCH ×3 (06:42→18:08)
[2018-05-16 07:35] LABS: Basophils % (A) 0 %; Eosinophils # (A) 0.1 k/uL (0-0.7); Eosinophils % (A) 1 %; HCT 42.3 % (39.0-53.0); Lymphocytes # (A) 1.5 k/uL (1.0-4.8); Lymphocytes % (A) 21 %; MCH 29.1 pg (25.0-35.0); MCHC 30.7 g/dL (31.0-37.0); MCV 94.7 fL (80.0-100.0); Mean Platelet Volume 6.5; Monocytes # (A) 0.4 k/uL (0-1.0); Monocytes % (A) 5 %; Neutrophils # (A) 5.1 k/uL (1.3-7.7); Neutrophils % (A) 71 %; Platelet Count 162 k/uL (150-450); RBC 4.47 m/uL (4.30-5.90); RDW 14.3 % (11.5-15.5); WBC 7.2 k/uL (3.8-10.6)
[2018-05-16 07:50] LABS: Albumin 3.5 g/dL (3.5-5.0); Calcium 8.9 mg/dL (8.4-10.2); Potassium 3.9 mmol/L (3.5-5.1); Total Bilirubin 0.5 mg/dL (0.2-1.3); Total Protein 5.6 g/dL (6.3-8.2)
[2018-05-16] MEDS ORDERED: INSULIN DETEMIR (LEVEMIR) 100 UNIT/ML SYR SQ SCH (09:00)
[2018-05-16] MEDS: IPRATROPIUM-ALBUTEROL 3 ML NEB INHALATION SCH ×4 (09:05→19:10)
[2018-05-16] MEDS: SYMBICORT 160-4.5 MCG INHALER INHALATION SCH ×2 (09:05→19:10)
[2018-05-16] MEDS: NICOTINE 21MG/24HR PATCH TRANSDERM SCH (10:43)
[2018-05-16] MEDS: PREGABALIN 75 MG CAP PO SCH ×3 (10:44→20:20)
[2018-05-16] MEDS: METOPROLOL SUCCINATE (ER) 25 MG TAB.ER.24H PO SCH (10:44)
[2018-05-16] MEDS: predniSONE 20 MG TAB PO SCH (10:44)
[2018-05-16] MEDS: LORATADINE 10 MG TAB PO SCH (10:44)
[2018-05-16] MEDS: FAMOTIDINE 20 MG TAB PO SCH ×2 (10:45→20:20)
[2018-05-16] MEDS: SPIRONOLACTONE 25 MG TAB PO SCH (10:45)
[2018-05-16] MEDS: HYDROcodone/APAP 10-325MG 1 EACH TAB PO PRN ×2 (10:45→20:25)
[2018-05-16] MEDS: SACUBITRIL/VALSARTAN 49 MG-51 MG TABLET PO SCH ×2 (10:51→20:20)
[2018-05-16] MEDS: DOCUSATE 100 MG CAP PO SCH (10:53)
[2018-05-16 11:43] LABS: Glucose,Whole Blood 376 mg/dL (75-99)
[2018-05-16] MEDS: guaiFENesin 600 MG TABLET.ER PO PRN (13:10)
--- NOTE | 2018-05-16 14:20 | P.PN ---
Subjective Progress Note Date: 05/16/18 Principal diagnosis: Acute hypoxemic respiratory failure secondary to an acute exacerbation of chronic systolic congestive heart failure and a component of acute exacerbation of chronic obstructive pulmonary disease. The patient is seen today 05/16/2017 in follow-up on the selective care unit. He is awake and alert in no acute distress. Currently sitting up in bed. He is breathing a bit better today as compared to yesterday but still not quite back to his baseline. No peripheral edema today. He is maintaining good O2 saturations in the 90s on 4 L/m per nasal cannula. He's been afebrile. Hemodynamically stable. Weight is down to 61 kg. White count 7.2. Hemoglobin 13.0. Creatinine 1.27. Bronchodilators, Symbicort, Mucinex and prednisone continue. A NicoDerm patches in place. He remains on a Lasix drip at 10 mg per hour. Objective - Vital Signs Vital signs: Vital Signs Temp 97.5 F L 05/16/18 10:59 Pulse 92 05/16/18 13:06 Resp 18 05/16/18 10:59 BP 107/72 05/16/18 10:59 Pulse Ox 98 05/16/18 04:00 Intake & Output 05/15/18 05/16/18 05/16/18 18:59 06:59 18:59 Intake Total 64.167 1968.5 480 Output Total 1200 950 Balance -5411.596 5567.5 480 Weight 62.5 kg 61 kg Intake: IV 30 Invasive Line 2 30 Intake, IV Titration 64.167 378.5 Amount Furosemide 100 mg In 64.167 58.5 Sodium Chloride 0.9% 90 ml @ 10 MG/HR 10 mls/hr IV .Q10H JOSY Rx#: [id number] Sodium Chloride 0.9% 1, 320 000 ml @ 20 mls/hr IV . Q24H JOSY Rx#:[id number] Oral 1560 480 Output: Urine 1200 950 Other: Voiding Method Toilet Toilet Urinal # Voids 3 3 - Exam GENERAL EXAM: Alert, frail, cachectic, comfortable in no apparent distress. On 4 L nasal cannula HEAD: Normocephalic. EYES: Normal reaction of pupils, equal size. NOSE: Clear with pink turbinates. THROAT: No erythema or exudates. NECK: No masses, no JVD. CHEST: No chest wall deformity. LUNGS: Equal air entry with echoes in the bilateral bases, end expiratory wheeze , diminished. CVS: S1 and S2 normal with no audible murmur, regular rhythm. ABDOMEN: No hepatosplenomegaly, normal bowel sounds, no guarding or rigidity. SPINE: No scoliosis or deformity SKIN: No rashes CENTRAL NERVOUS SYSTEM: No focal deficits, tone is normal in all 4 extremities. EXTREMITIES: There is no peripheral edema. No clubbing, no cyanosis. Peripheral pulses are intact. - Labs CBC & Chem 7: 05/16/18 06:22 05/16/18 06:22 Labs: Abnormal Lab Results - Last 24 Hours (Table) 05/15/18 05/15/18 05/15/18 Range/Units 05:52 16:29 20:46 MCHC (31.0-37.0) g/dL Sodium (137-145) mmol/L Chloride (98-107) mmol/L Carbon Dioxide (22-30) mmol/L BUN (9-20) mg/dL Creatinine (0.66-1.25) mg/dL Glucose (74-99) mg/dL POC Glucose (mg/dL) 106 H 187 H (75-99) mg/dL Hemoglobin A1c 11.6 H (4.0-6.0) % Total Protein (6.3-8.2) g/dL 05/16/18 05/16/18 05/16/18 Range/Units 06:10 06:22 06:22 MCHC 30.7 L (31.0-37.0) g/dL Sodium 132 L (137-145) mmol/L Chloride 93 L (98-107) mmol/L Carbon Dioxide 33 H (22-30) mmol/L BUN 29 H (9-20) mg/dL Creatinine 1.27 H (0.66-1.25) mg/dL Glucose 188 H (74-99) mg/dL POC Glucose (mg/dL) 186 H (75-99) mg/dL Hemoglobin A1c (4.0-6.0) % Total Protein 5.6 L (6.3-8.2) g/dL 05/16/18 Range/Units 11:33 MCHC (31.0-37.0) g/dL Sodium (137-145) mmol/L Chloride (98-107) mmol/L Carbon Dioxide (22-30) mmol/L BUN (9-20) mg/dL Creatinine (0.66-1.25) mg/dL Glucose (74-99) mg/dL POC Glucose (mg/dL) 376 H (75-99) mg/dL Hemoglobin A1c (4.0-6.0) % Total Protein (6.3-8.2) g/dL Assessment and Plan Assessment: Impression: #1 Acute on chronic hypoxemic respiratory failure secondary to an acute exacerbation of chronic systolic congestive heart failure along with an acute exacerbation of chronic obstructive pulmonary disease. #2 Ischemic cardiomyopathy with severely impaired left ventricular systolic function with ejection fraction less than 20%, status post AICD placement. #3 Severe chronic obstructive pulmonary disease, oxygen dependent. #4 Chronic and ongoing tobacco dependence. #5 History of chronic alcoholism. #6 Chronic pancreatitis with history of pancreatic pseudocyst and malabsorption secondary to chronic pancreatic insufficiency. #7 Diabetes mellitus. #8 Hypertension. #9 Hyperlipidemia. #10 Degenerative arthritis. #11 Acute on chronic renal failure. Current creatinine 1.27. Plan: The patient was seen and evaluated by Dr. Ray. He is breathing easier today as compared to yesterday. He remains on a Lasix drip for now. Her tenuous pulmonary medications including prednisone. We'll continue to follow make further recommendations based on his clinical status. I, the cosigning physician, performed a history & physical examination of the patient. Lungs sounds with bilateral end expiratory wheeze, posterior crackles, diminished. Maintaining good O2 saturations in the 90s on 4 L/m per nasal cannula. I discussed the assessment and plan of care with my nurse practitioner , Elenita Anne. I attest to the above note as dictated by her.
--- NOTE | 2018-05-16 14:22 | P.PN ---
Subjective Progress Note Date: 05/16/18 This is a 57-year-old gentleman who follows with Dr. Be in the office. He has a known history of nonischemic cardiomyopathy secondary to EtOH abuse, chronic systolic congestive heart failure, hypertension, diabetes, COPD, O2 dependence, diaphragmatic paralysis, hyperlipidemia, prior AICD implantation , chronic pancreatitis, nicotine dependence,,History of alcoholism. He was just recently in the hospital with an exacerbation of congestive cardiac failure. He re-presents to the hospital on this occasion with symptoms of orthopnea, shortness of breath and edema. He states that he has significant swelling in both of his legs up into his scrotal area. According to the patient he was taking his medications as prescribed, he denies using any alcohol or excessive salt since his discharge from here. Chest x-ray on arrival here shows cardiomegaly with interstitial change and trace effusions, mild congestive heart failure. EKG shows a normal sinus rhythm with occasional PVCs, nonspecific ST changes. Blood pressure 105/60 with a heart rate in the 60s, 95% on 4 L of oxygen. Blood cell count 6.4, hemoglobin 12.5, platelet count 140. Sodium 133, potassium 4.4, BUN 29 and creatinine 0.9. Blood glucose on arrival 493. Magnesium 2.1. BNP level 43,100. troponins .078, .062 , .060. Patient is noted on recent admissions to have abnormality in troponins. BNP level on the seventh of this month 16,400. At the time of my examination this morning, he is sitting up in bed, states that he is already put out a significant amount of urine since his admission here. Continues to feel short of breath however much improved from admission. 05/16/2018 Patient was seen and examined this morning, diuresing well through the night last night, weight is down 1 kg today. Echocardiogram with Doppler study remains pending. Patient continues to be on IV Lasix drip at 10 mg per hour. Blood pressure 108/70 with a heart rate of 90, white blood cell count 7.2, hemoglobin 13.0, platelet count 162. Sodium 132, potassium 3.9, BUN 29, creatinine 1.2. Objective - Vital Signs Vital signs: Vital Signs Temp 97.5 F L 05/16/18 10:59 Pulse 92 05/16/18 13:06 Resp 18 05/16/18 10:59 BP 107/72 05/16/18 10:59 Pulse Ox 98 05/16/18 04:00 Intake & Output 05/15/18 05/16/18 05/16/18 18:59 06:59 18:59 Intake Total 64.167 1968.5 480 Output Total 1200 950 Balance -6224.652 5882.5 480 Weight 62.5 kg 61 kg Intake: IV 30 Invasive Line 2 30 Intake, IV Titration 64.167 378.5 Amount Furosemide 100 mg In 64.167 58.5 Sodium Chloride 0.9% 90 ml @ 10 MG/HR 10 mls/hr IV .Q10H JOSY Rx#: [id number] Sodium Chloride 0.9% 1, 320 000 ml @ 20 mls/hr IV . Q24H JOSY Rx#:[id number] Oral 1560 480 Output: Urine 1200 950 Other: Voiding Method Toilet Toilet Urinal # Voids 3 3 - Exam PHYSICAL EXAMINATION: GENERAL: 57-year-old gentleman in no acute distress at the time of my examination HEENT: Head is atraumatic, normocephalic. Pupils equal, round. Sclera anicteric. Conjunctiva are clear. Mucous membranes of the mouth are moist. Neck is supple. There is elevated jugular venous pressure. No carotid bruit is heard. HEART EXAMINATION: Heart S1 and S2 systolic murmur is heard. CHEST EXAMINATION: Lungs reveal improvement in air entry bilaterally ABDOMEN: Soft, nontender. Bowel sounds are heard. No organomegaly noted. EXTREMITIES: 2+ peripheral pulses with 1+ evidence of peripheral edema and no calf tenderness noted. NEUROLOGIC patient is awake, alert and oriented 3 . . - Labs CBC & Chem 7: 05/16/18 06:22 05/16/18 06:22 Labs: Abnormal Lab Results - Last 24 Hours (Table) 05/15/18 05/15/18 05/15/18 Range/Units 05:52 16:29 20:46 MCHC (31.0-37.0) g/dL Sodium (137-145) mmol/L Chloride (98-107) mmol/L Carbon Dioxide (22-30) mmol/L BUN (9-20) mg/dL Creatinine (0.66-1.25) mg/dL Glucose (74-99) mg/dL POC Glucose (mg/dL) 106 H 187 H (75-99) mg/dL Hemoglobin A1c 11.6 H (4.0-6.0) % Total Protein (6.3-8.2) g/dL 05/16/18 05/16/18 05/16/18 Range/Units 06:10 06:22 06:22 MCHC 30.7 L (31.0-37.0) g/dL Sodium 132 L (137-145) mmol/L Chloride 93 L (98-107) mmol/L Carbon Dioxide 33 H (22-30) mmol/L BUN 29 H (9-20) mg/dL Creatinine 1.27 H (0.66-1.25) mg/dL Glucose 188 H (74-99) mg/dL POC Glucose (mg/dL) 186 H (75-99) mg/dL Hemoglobin A1c (4.0-6.0) % Total Protein 5.6 L (6.3-8.2) g/dL 05/16/18 Range/Units 11:33 MCHC (31.0-37.0) g/dL Sodium (137-145) mmol/L Chloride (98-107) mmol/L Carbon Dioxide (22-30) mmol/L BUN (9-20) mg/dL Creatinine (0.66-1.25) mg/dL Glucose (74-99) mg/dL POC Glucose (mg/dL) 376 H (75-99) mg/dL Hemoglobin A1c (4.0-6.0) % Total Protein (6.3-8.2) g/dL Assessment and Plan Plan: Assessment and plan #1 systolic congestive heart failure acute on chronic #2 nonischemic cardiomyopathy secondary to EtOH abuse #3 COPD #4 nicotine dependence #5 diabetes, uncontrolled #6 hypertension #7 hyperlipidemia #8 EtOH abuse Plan Patient had an echocardiogram with Doppler study performed earlier this month, revealed an ejection fraction of less than 20%. We will not repeat an echo on this admission. We will continue with current dose of IV Lasix drip. Continue to monitor the intake and output along with daily weights and daily lytes BUN and creatinine. DNP note has been reviewed, I agree with a documented findings and plan of care. Patient was seen and examined.
[2018-05-16 16:40] LABS: Glucose,Whole Blood 231 mg/dL (75-99)
--- NOTE | 2018-05-16 16:46 | P.PN ---
Subjective Progress Note Date: 05/16/18 Principal diagnosis: Continue current regimen of treatment with diuresis. Continue Lasix drip. Appreciate cardiology input. Appreciate pulmonology input. Prognosis is guarded Question need for palliative versus hospice. Objective - Vital Signs Vital signs: Vital Signs Temp 97.5 F L 05/16/18 10:59 Pulse 92 05/16/18 13:06 Resp 18 05/16/18 10:59 BP 118/64 05/16/18 12:00 Pulse Ox 99 05/16/18 12:00 Intake & Output 05/15/18 05/16/18 05/16/18 18:59 06:59 18:59 Intake Total 64.167 1968.5 480 Output Total 1200 950 Balance -5204.059 1722.5 480 Weight 62.5 kg 61 kg Intake: IV 30 Invasive Line 2 30 Intake, IV Titration 64.167 378.5 Amount Furosemide 100 mg In 64.167 58.5 Sodium Chloride 0.9% 90 ml @ 10 MG/HR 10 mls/hr IV .Q10H JOSY Rx#: [id number] Sodium Chloride 0.9% 1, 320 000 ml @ 20 mls/hr IV . Q24H JOSY Rx#:[id number] Oral 1560 480 Output: Urine 1200 950 Other: Voiding Method Toilet Toilet Urinal # Voids 3 3 - Labs CBC & Chem 7: 05/16/18 06:22 05/16/18 06:22 Labs: Abnormal Lab Results - Last 24 Hours (Table) 05/15/18 05/15/18 05/15/18 Range/Units 05:52 16:29 20:46 MCHC (31.0-37.0) g/dL Sodium (137-145) mmol/L Chloride (98-107) mmol/L Carbon Dioxide (22-30) mmol/L BUN (9-20) mg/dL Creatinine (0.66-1.25) mg/dL Glucose (74-99) mg/dL POC Glucose (mg/dL) 106 H 187 H (75-99) mg/dL Hemoglobin A1c 11.6 H (4.0-6.0) % Total Protein (6.3-8.2) g/dL 05/16/18 05/16/18 05/16/18 Range/Units 06:10 06:22 06:22 MCHC 30.7 L (31.0-37.0) g/dL Sodium 132 L (137-145) mmol/L Chloride 93 L (98-107) mmol/L Carbon Dioxide 33 H (22-30) mmol/L BUN 29 H (9-20) mg/dL Creatinine 1.27 H (0.66-1.25) mg/dL Glucose 188 H (74-99) mg/dL POC Glucose (mg/dL) 186 H (75-99) mg/dL Hemoglobin A1c (4.0-6.0) % Total Protein 5.6 L (6.3-8.2) g/dL 05/16/18 Range/Units 11:33 MCHC (31.0-37.0) g/dL Sodium (137-145) mmol/L Chloride (98-107) mmol/L Carbon Dioxide (22-30) mmol/L BUN (9-20) mg/dL Creatinine (0.66-1.25) mg/dL Glucose (74-99) mg/dL POC Glucose (mg/dL) 376 H (75-99) mg/dL Hemoglobin A1c (4.0-6.0) % Total Protein (6.3-8.2) g/dL Assessment and Plan (1) Acute exacerbation of chronic obstructive airways disease Current Visit: Yes Status: Acute Code(s): J44.1 - CHRONIC OBSTRUCTIVE PULMONARY DISEASE W (ACUTE) EXACERBATION SNOMED Code(s): 857945442 (2) Adult respiratory distress syndrome Current Visit: Yes Status: Acute Code(s): J80 - ACUTE RESPIRATORY DISTRESS SYNDROME SNOMED Code(s): 01819262 (3) Elevated troponin I level Current Visit: Yes Status: Acute Code(s): R74.8 - ABNORMAL LEVELS OF OTHER SERUM ENZYMES SNOMED Code(s): 165813410 (4) Failure of outpatient treatment Current Visit: Yes Status: Acute Code(s): Z78.9 - OTHER SPECIFIED HEALTH STATUS SNOMED Code(s): 290096402 (5) Systolic congestive heart failure Current Visit: Yes Status: Acute Code(s): I50.20 - UNSPECIFIED SYSTOLIC ( CONGESTIVE) HEART FAILURE SNOMED Code(s): 498220250 (6) Chronic pancreatitis Current Visit: No Status: Acute Code(s): K86.1 - OTHER CHRONIC PANCREATITIS SNOMED Code(s): 834849676 (7) Diabetes Current Visit: No Status: Acute Code(s): E11.9 - TYPE 2 DIABETES MELLITUS WITHOUT COMPLICATIONS SNOMED Code(s): 04934174 (8) High risk for readmission Current Visit: No Status: Acute Code(s): Z91.89 - OTH PERSONAL RISK FACTORS , NOT ELSEWHERE CLASSIFIED SNOMED Code(s): 381451773 (9) NICM (nonischemic cardiomyopathy) Current Visit: No Status: Acute Code(s): I42.9 - CARDIOMYOPATHY, UNSPECIFIED SNOMED Code(s): 64286467 Plan: Continue current regimen of treatment. Appreciate multiple inputs. Prognosis is guarded. Question need for palliative versus hospice care. Check CMP in a.m. Time with Patient: Less than 30
[2018-05-16] MEDS ORDERED: NITROGLYCERIN OINT 1 INCH/GM PACKET TOPICAL ONE (20:13)
[2018-05-16] MEDS: NITROGLYCERIN OINT 1 INCH/GM PACKET TOPICAL SCH (20:20)
[2018-05-16 20:23] LABS: Glucose,Whole Blood 352 mg/dL (75-99)
[2018-05-16] MEDS ORDERED: INSULIN REGULAR BOLUS (FROM DRIP BAG) IV ONE (20:46)
[2018-05-16] MEDS ORDERED: INSULIN REGULAR 100 UNIT in SODIUM CHLORIDE 0.9% 100 ML IV SCH (21:00)
[2018-05-16 22:37] LABS: Glucose,Whole Blood 331 mg/dL (75-99)
[2018-05-16 23:08] LABS: Glucose,Whole Blood 303 mg/dL (75-99)
[2018-05-16 23:31] LABS: Glucose,Whole Blood 274 mg/dL (75-99)
[2018-05-17 00:03] LABS: Glucose,Whole Blood 214 mg/dL (75-99)
[2018-05-17] MEDS: HYDROcodone/APAP 10-325MG 1 EACH TAB PO PRN ×5 (01:56→20:45)
[2018-05-17] MEDS: guaiFENesin 600 MG TABLET.ER PO PRN ×2 (01:59→15:51)
[2018-05-17 02:25] LABS: Glucose,Whole Blood 136 mg/dL (75-99)
[2018-05-17 04:10] LABS: Glucose,Whole Blood 97 mg/dL (75-99)
[2018-05-17 05:17] LABS: Glucose,Whole Blood 127 mg/dL (75-99)
[2018-05-17 06:07] LABS: Glucose,Whole Blood 177 mg/dL (75-99)
[2018-05-17 06:24] LABS: Basophils % (A) 0 %; Eosinophils % (A) 0 %; HCT 49.4 % (39.0-53.0); HGB 15.2 gm/dL (13.0-17.5); Lymphocytes # (A) 1.1 k/uL (1.0-4.8); Lymphocytes % (A) 17 %; MCH 29.7 pg (25.0-35.0); MCHC 30.9 g/dL (31.0-37.0); MCV 96.1 fL (80.0-100.0); Mean Platelet Volume 7.2; Monocytes # (A) 0.4 k/uL (0-1.0); Monocytes % (A) 7 %; Neutrophils # (A) 4.9 k/uL (1.3-7.7); Neutrophils % (A) 75 %; Platelet Count 186 k/uL (150-450); RBC 5.14 m/uL (4.30-5.90); RDW 14.3 % (11.5-15.5); WBC 6.5 k/uL (3.8-10.6)
[2018-05-17] MEDS: FUROSEMIDE 100 MG in SODIUM CHLORIDE 0.9% 90 ML IV SCH (06:28)
[2018-05-17] MEDS: SYMBICORT 160-4.5 MCG INHALER INHALATION SCH ×2 (07:29→20:44)
[2018-05-17] MEDS: IPRATROPIUM-ALBUTEROL 3 ML NEB INHALATION SCH ×4 (07:29→20:42)
[2018-05-17] MEDS ORDERED: INSULIN ASPART (NovoLOG) 100 UNIT/ML VIAL SQ SCH (07:30)
--- NOTE | 2018-05-17 08:28 | P.PN ---
Subjective Principal diagnosis: Shortness of breath. This is a 57-year-old white male essentially admitted for his aspiration of CHF and COPD and history of chronic pancreatitis with poorly controlled diabetes. Will wean patient off insulin drip and hopefully cardiology will wean the patient off Lasix drip today. He does have clinical improvement compared to yesterday. He is now up ambulating without significant shortness of breath. Oxygen dependency is noted. Again, question diabetes understanding Objective - Vital Signs Vital signs: Vital Signs Temp 97.5 F L 05/17/18 04:00 Pulse 88 05/17/18 07:41 Resp 20 05/17/18 04:00 BP 103/69 05/17/18 04:00 Pulse Ox 99 05/17/18 07:31 Intake & Output 05/16/18 05/17/18 05/17/18 18:59 06:59 18:59 Intake Total 819.5 856.651 Output Total 3600 Balance 819.5 -2743.349 Weight 58 kg Intake: IV 20 Invasive Line 3 20 Intake, IV Titration 99.5 244.651 Amount Furosemide 100 mg In 99.5 198.167 Sodium Chloride 0.9% 90 ml @ 10 MG/HR 10 mls/hr IV .Q10H JOSY Rx#: [id number] Insulin Regular 100 unit 46.484 In Sodium Chloride 0.9% 100 ml @ Titrate IV .Q0M JOSY Rx#:[id number] Oral 720 592 Output: Urine 3600 Other: Voiding Method Toilet Urinal # Voids 3 2 - Constitutional General appearance: Present: thin - EENT Eyes: Absent: abnormal pupil - Neck Neck: Absent: lymphadenopathy - Respiratory Respiratory: bilateral: diminished - Cardiovascular Rhythm: regular Heart sounds: normal: S1, S2 Abnormal Heart Sounds: Absent: S3 Gallop - Gastrointestinal General gastrointestinal: Present: soft, splenomegaly. Absent: tenderness - Integumentary Integumentary: Absent: cellulitis - Labs CBC & Chem 7: 05/17/18 05:14 05/16/18 06:22 Labs: Abnormal Lab Results - Last 24 Hours (Table) 05/16/18 05/16/18 05/16/18 Range/Units 11:33 16:38 20:21 MCHC (31.0-37.0) g/dL POC Glucose (mg/dL) 376 H 231 H 352 H (75-99) mg/dL 05/16/18 05/16/18 05/16/18 Range/Units 22:35 23:07 23:30 MCHC (31.0-37.0) g/dL POC Glucose (mg/dL) 331 H 303 H 274 H (75-99) mg/dL 05/17/18 05/17/18 05/17/18 Range/Units 00:02 02:22 05:14 MCHC 30.9 L (31.0-37.0) g/dL POC Glucose (mg/dL) 214 H 136 H (75-99) mg/dL 05/17/18 05/17/18 Range/Units 05:16 06:06 MCHC (31.0-37.0) g/dL POC Glucose (mg/dL) 127 H 177 H (75-99) mg/dL Assessment and Plan (1) Acute exacerbation of chronic obstructive airways disease Current Visit: Yes Status: Acute Code(s): J44.1 - CHRONIC OBSTRUCTIVE PULMONARY DISEASE W (ACUTE) EXACERBATION SNOMED Code(s): 858572502 (2) Adult respiratory distress syndrome Current Visit: Yes Status: Acute Code(s): J80 - ACUTE RESPIRATORY DISTRESS SYNDROME SNOMED Code(s): 44281632 (3) Elevated troponin I level Current Visit: Yes Status: Acute Code(s): R74.8 - ABNORMAL LEVELS OF OTHER SERUM ENZYMES SNOMED Code(s): 615356276 (4) Failure of outpatient treatment Current Visit: Yes Status: Acute Code(s): Z78.9 - OTHER SPECIFIED HEALTH STATUS SNOMED Code(s): 186040222 (5) Systolic congestive heart failure Current Visit: Yes Status: Acute Code(s): I50.20 - UNSPECIFIED SYSTOLIC ( CONGESTIVE) HEART FAILURE SNOMED Code(s): 839307547 (6) Chronic pancreatitis Current Visit: No Status: Acute Code(s): K86.1 - OTHER CHRONIC PANCREATITIS SNOMED Code(s): 583457586 (7) Diabetes Current Visit: No Status: Acute Code(s): E11.9 - TYPE 2 DIABETES MELLITUS WITHOUT COMPLICATIONS SNOMED Code(s): 40872586 (8) High risk for readmission Current Visit: No Status: Acute Code(s): Z91.89 - OTH PERSONAL RISK FACTORS , NOT ELSEWHERE CLASSIFIED SNOMED Code(s): 463483725 (9) NICM (nonischemic cardiomyopathy) Current Visit: No Status: Acute Code(s): I42.9 - CARDIOMYOPATHY, UNSPECIFIED SNOMED Code(s): 49298769 Plan: Wean off of insulin drip. Transition to oral medication. Check CBC and CMP in a.m. per Anticipate discharge in the a.m. if the patient is stabilizing. Discharge planning for possible hospice evaluation given his overall prognosis and multiple comorbidities including cardiomyopathy, COPD with diabetes.
[2018-05-17 08:37] LABS: Glucose,Whole Blood 340 mg/dL (75-99)
[2018-05-17] MEDS: PREGABALIN 75 MG CAP PO SCH ×3 (10:47→20:46)
[2018-05-17] MEDS: predniSONE 20 MG TAB PO SCH (10:47)
[2018-05-17] MEDS: SPIRONOLACTONE 25 MG TAB PO SCH (10:48)
[2018-05-17] MEDS: NITROGLYCERIN OINT 1 INCH/GM PACKET TOPICAL SCH (10:48)
[2018-05-17] MEDS: METOPROLOL SUCCINATE (ER) 25 MG TAB.ER.24H PO SCH (10:48)
[2018-05-17] MEDS: LORATADINE 10 MG TAB PO SCH (10:48)
[2018-05-17] MEDS: DOCUSATE 100 MG CAP PO SCH (10:48)
[2018-05-17] MEDS: FAMOTIDINE 20 MG TAB PO SCH ×2 (10:48→20:45)
[2018-05-17] MEDS: NICOTINE 21MG/24HR PATCH TRANSDERM SCH (10:49)
[2018-05-17] MEDS: SACUBITRIL/VALSARTAN 49 MG-51 MG TABLET PO SCH ×2 (10:50→20:46)
[2018-05-17 10:58] LABS: Glucose,Whole Blood 366 mg/dL (75-99)
[2018-05-17] MEDS: INSULIN ASPART (NovoLOG) 100 UNIT/ML VIAL SQ SCH ×6 (10:59→20:47)
[2018-05-17 12:00] LABS: Glucose,Whole Blood 301 mg/dL (75-99)
--- NOTE | 2018-05-17 15:07 | P.PN ---
Subjective Progress Note Date: 05/17/18 This is a 57-year-old gentleman who follows with Dr. Be in the office. He has a known history of nonischemic cardiomyopathy secondary to EtOH abuse, chronic systolic congestive heart failure, hypertension, diabetes, COPD, O2 dependence, diaphragmatic paralysis, hyperlipidemia, prior AICD implantation , chronic pancreatitis, nicotine dependence,,History of alcoholism. He was just recently in the hospital with an exacerbation of congestive cardiac failure. He re-presents to the hospital on this occasion with symptoms of orthopnea, shortness of breath and edema. He states that he has significant swelling in both of his legs up into his scrotal area. According to the patient he was taking his medications as prescribed, he denies using any alcohol or excessive salt since his discharge from here. Chest x-ray on arrival here shows cardiomegaly with interstitial change and trace effusions, mild congestive heart failure. EKG shows a normal sinus rhythm with occasional PVCs, nonspecific ST changes. Blood pressure 105/60 with a heart rate in the 60s, 95% on 4 L of oxygen. Blood cell count 6.4, hemoglobin 12.5, platelet count 140. Sodium 133, potassium 4.4, BUN 29 and creatinine 0.9. Blood glucose on arrival 493. Magnesium 2.1. BNP level 43,100. troponins .078, .062 , .060. Patient is noted on recent admissions to have abnormality in troponins. BNP level on the seventh of this month 16,400. At the time of my examination this morning, he is sitting up in bed, states that he is already put out a significant amount of urine since his admission here. Continues to feel short of breath however much improved from admission. 05/16/2018 Patient was seen and examined this morning, diuresing well through the night last night, weight is down 1 kg today. Echocardiogram with Doppler study remains pending. Patient continues to be on IV Lasix drip at 10 mg per hour. Blood pressure 108/70 with a heart rate of 90, white blood cell count 7.2, hemoglobin 13.0, platelet count 162. Sodium 132, potassium 3.9, BUN 29, creatinine 1.2. 05/17/2018 Patient seen and examined today, overall looking somewhat better. Last night complained of significant chest tightness through the night. We did start him on Imdur. Blood pressure today 112/70 with a heart rate in the 80s, 97% on 2 L of oxygen. Edema significantly improved today. Discussions are being made regarding possible hospice. Objective - Vital Signs Vital signs: Vital Signs Temp 97.8 F 05/17/18 10:35 Pulse 84 05/17/18 11:30 Resp 18 05/17/18 10:35 BP 112/78 05/17/18 10:35 Pulse Ox 97 05/17/18 10:35 Intake & Output 05/16/18 05/17/18 05/17/18 18:59 06:59 18:59 Intake Total 819.5 523.797 5732 Output Total 3600 875 Balance 819.5 -2743.349 205 Weight 58 kg Intake: IV 20 Invasive Line 3 20 Intake, IV Titration 99.5 244.651 Amount Furosemide 100 mg In 99.5 198.167 Sodium Chloride 0.9% 90 ml @ 10 MG/HR 10 mls/hr IV .Q10H [facility] Rx#: [id number] Insulin Regular 100 unit 46.484 In Sodium Chloride 0.9% 100 ml @ Titrate IV .Q0M [facility] Rx#:[id number] Oral 551 300 6653 Output: Urine 3600 875 Other: Voiding Method Toilet Urinal # Voids 3 2 - Exam PHYSICAL EXAMINATION: GENERAL: 57-year-old gentleman in no acute distress at the time of my examination HEENT: Head is atraumatic, normocephalic. Pupils equal, round. Sclera anicteric. Conjunctiva are clear. Mucous membranes of the mouth are moist. Neck is supple. There is elevated jugular venous pressure. No carotid bruit is heard. HEART EXAMINATION: Heart S1 and S2 systolic murmur is heard. CHEST EXAMINATION: Lungs reveal improvement in air entry bilaterally ABDOMEN: Soft, nontender. Bowel sounds are heard. No organomegaly noted. EXTREMITIES: 2+ peripheral pulses with trace to 1+ evidence of peripheral edema and no calf tenderness noted. NEUROLOGIC patient is awake, alert and oriented 3 . . - Labs CBC & Chem 7: 05/17/18 05:14 05/16/18 06:22 Labs: Abnormal Lab Results - Last 24 Hours (Table) 05/16/18 05/16/18 05/16/18 Range/Units 16:38 20:21 22:35 MCHC (31.0-37.0) g/dL POC Glucose (mg/dL) 231 H 352 H 331 H (75-99) mg/dL 05/16/18 05/16/18 05/17/18 Range/Units 23:07 23:30 00:02 MCHC (31.0-37.0) g/dL POC Glucose (mg/dL) 303 H 274 H 214 H (75-99) mg/dL 05/17/18 05/17/18 05/17/18 Range/Units 02:22 05:14 05:16 MCHC 30.9 L (31.0-37.0) g/dL POC Glucose (mg/dL) 136 H 127 H (75-99) mg/dL 05/17/18 05/17/18 05/17/18 Range/Units 06:06 08:34 10:55 MCHC (31.0-37.0) g/dL POC Glucose (mg/dL) 177 H 340 H 366 H (75-99) mg/dL 05/17/18 Range/Units 11:56 MCHC (31.0-37.0) g/dL POC Glucose (mg/dL) 301 H (75-99) mg/dL Assessment and Plan Plan: Assessment and plan #1 systolic congestive heart failure acute on chronic #2 nonischemic cardiomyopathy secondary to EtOH abuse #3 COPD #4 nicotine dependence #5 diabetes, uncontrolled #6 hypertension #7 hyperlipidemia #8 EtOH abuse Plan From cardiology's perspective we will continue current dose of Lasix drip for 24 hours, check lytes BUN and creatinine in the morning. Repeat chest x-ray tomorrow. DNP note has been reviewed, I agree with a documented findings and plan of care. Patient was seen and examined.
[2018-05-17 15:17] LABS: Glucose,Whole Blood 72 mg/dL (75-99)
[2018-05-17] MEDS ORDERED: FUROSEMIDE 10 MG/ML 4 ML VIAL ONE (15:48)
[2018-05-17] MEDS: ISOSORBIDE MONONITRATE ER 30 MG TAB.ER.24H PO SCH (15:53)
[2018-05-17] MEDS: SODIUM CHLORIDE 0.9% 1,000 ML IV SCH (15:54)
[2018-05-17] MEDS: FUROSEMIDE 10 MG/ML 4 ML VIAL IV SCH ×2 (15:56→23:37)
--- NOTE | 2018-05-17 17:20 | P.PN ---
Subjective Progress Note Date: 05/17/18 On today's evaluation of 05/17/2018 I'm seeing this patient for a follow-up. The patient is hospital S4 acute he Said heart failure. Ejection fraction of less than 20% consistent with nonischemic cardiomyopathy. His other comorbidities include COPD, chronic pancreatitis, chronic absorption, history of diaphragmatic paralysis, AICD placement, diabetes, hypertension, chronic hypoxic respiratory failure and previous history of alcoholism. He was in the hospital approximately 3 weeks ago for intravascular volume depletion dehydration and hypernatremia back and the patient was given back fluids. He came in for fluid overload. He had significant swelling in lower extremities in the scrotal area. He was placed on a Lasix drip. He had a BNP of 16,000. No angina. Hemoglobin without 7.2. The patient was started on Lasix drip. The patient improved. His optimization of his arm status. There is improvement in his scrotal edema lower extremity edema. Nevertheless his creatinine is up to 1.27. Based on that the Lasix drip was discontinued today and the patient was switched to IV Lasix pushes. The patient is also on oral Aldactone 25 mg by mouth daily. He is on Symbicort as maintenance and on of the breast units [id number]. Overall is feeling better. He has some congestion and plugging in his left nostril which is a chronic ongoing problem. He is tolerating his diet. No nausea or vomiting. No abdominal pain. Altered mentation. Objective - Vital Signs Vital signs: Vital Signs Temp 97.5 F L 05/17/18 15:30 Pulse 88 05/17/18 15:30 Resp 20 05/17/18 15:30 BP 108/56 05/17/18 15:30 Pulse Ox 96 05/17/18 15:30 Intake & Output 05/16/18 05/17/18 05/17/18 18:59 06:59 18:59 Intake Total 819.5 105.457 5148 Output Total 3600 875 Balance 819.5 -2743.349 205 Weight 58 kg Intake: IV 20 Invasive Line 3 20 Intake, IV Titration 99.5 244.651 Amount Furosemide 100 mg In 99.5 198.167 Sodium Chloride 0.9% 90 ml @ 10 MG/HR 10 mls/hr IV .Q10H [facility] Rx#: [id number] Insulin Regular 100 unit 46.484 In Sodium Chloride 0.9% 100 ml @ Titrate IV .Q0M [facility] Rx#:[id number] Oral [id number] 985 8032 Output: Urine 3600 875 Other: Voiding Method Toilet Urinal # Voids 3 2 - Exam PHYSICAL EXAMINATION: GENERAL: 57-year-old gentleman in no acute distress at the time of my examination Head exam was generally normal. There was no scleral icterus or corneal arcus. Mucous membranes were moist. HEENT: Head is atraumatic, normocephalic. Pupils equal, round. Sclera anicteric. Conjunctiva are clear. Mucous membranes of the mouth are moist. Neck is supple. There is elevated jugular venous pressure. No carotid bruit is heard. HEART EXAMINATION: Heart S1 and S2 systolic murmur is heard. CHEST EXAMINATION: Lungs reveal improvement in air entry bilaterally ABDOMEN: Soft, nontender. Bowel sounds are heard. No organomegaly noted. EXTREMITIES: 2+ peripheral pulses with trace to 1+ evidence of peripheral edema and no calf tenderness noted. There is improvement in lower extremity edema. Is also improvement in the scrotal edema. NEUROLOGIC patient is awake, alert and oriented 3 . - Labs CBC & Chem 7: 05/17/18 05:14 05/16/18 06:22 Labs: Abnormal Lab Results - Last 24 Hours (Table) 05/16/18 05/16/18 05/16/18 Range/Units 20:21 22:35 23:07 MCHC (31.0-37.0) g/dL POC Glucose (mg/dL) 352 H 331 H 303 H (75-99) mg/dL 05/16/18 05/17/18 05/17/18 Range/Units 23:30 00:02 02:22 MCHC (31.0-37.0) g/dL POC Glucose (mg/dL) 274 H 214 H 136 H (75-99) mg/dL 05/17/18 05/17/18 05/17/18 Range/Units 05:14 05:16 06:06 MCHC 30.9 L (31.0-37.0) g/dL POC Glucose (mg/dL) 127 H 177 H (75-99) mg/dL 05/17/18 05/17/18 05/17/18 Range/Units 08:34 10:55 11:56 MCHC (31.0-37.0) g/dL POC Glucose (mg/dL) 340 H 366 H 301 H (75-99) mg/dL 05/17/18 Range/Units 15:15 MCHC (31.0-37.0) g/dL POC Glucose (mg/dL) 72 L (75-99) mg/dL Assessment and Plan Plan: #1 acute exacerbation of a nonischemic cardiomyopathy with an ejection fraction of less than 20% and secondary shortness of breath and signs of fluid overload. Patient is clinically improving. #2 severe COPD with chronic hypoxic respiratory failure. The COPD is currently inactive and stable as the patient is completing a prednisone burst taper. #3 History of severe nonischemic cardiomyopathy with previous ejection fraction 30%, more recently 45%. Status post AICD placement. #4 History of alcoholism. Currently a non-alcohol drinker #5 History of chronic pancreatitis with pseudocysts. #6 Diabetes mellitus with steroid-induced hyperglycemia. #7 Hypertension. #8 Hyperlipidemia. #9 Chronic tobacco dependence. #10 Progressive weight loss secondary to chronic malabsorption #11 history of alcoholism #12 acute kidney injury, secondary to diuresis and the patient is also on entresto Plan Discontinue the Lasix drip. Continue with Lasix pushes for another 24 hours. Continue Aldactone. Continue entresto and monitor the renal function. Continue oxygen therapy. Add humidification to O2 source. Continue Symbicort. Continue DuoNeb the [id number]. Levemir insulin 32 units daily along with a 10 units of NovoLog with meals and a sliding scale coverage. Prednisone burst taper. We'll continue to follow. Long-term prognosis poor based on the above-mentioned comorbidities. Constipation is being given for palliative care.
[2018-05-17 17:24] LABS: Glucose,Whole Blood 90 mg/dL (75-99)
[2018-05-17 20:26] LABS: Glucose,Whole Blood 157 mg/dL (75-99)
[2018-05-17] MEDS: ZOLPIDEM 10 MG TAB PO PRN (20:46)
[2018-05-17] MEDS ORDERED: INSULIN DETEMIR (LEVEMIR) 100 UNIT/ML SYR SQ SCH (21:00)
[2018-05-18 06:09] LABS: Glucose,Whole Blood 190 mg/dL (75-99)
[2018-05-18 06:46] LABS: Basophils % (A) 0 %; Eosinophils % (A) 1 %; HGB 14.4 gm/dL (13.0-17.5); Hypochromasia Slight; Lymphocytes # (A) 1.4 k/uL (1.0-4.8); Lymphocytes % (A) 18 %; MCH 29.6 pg (25.0-35.0); MCHC 30.7 g/dL (31.0-37.0); MCV 96.3 fL (80.0-100.0); Mean Platelet Volume 6.7; Monocytes # (A) 0.6 k/uL (0-1.0); Monocytes % (A) 8 %; Neutrophils # (A) 5.3 k/uL (1.3-7.7); Neutrophils % (A) 72 %; Platelet Count 194 k/uL (150-450); RBC 4.88 m/uL (4.30-5.90); RDW 14.3 % (11.5-15.5); WBC 7.4 k/uL (3.8-10.6)
[2018-05-18 06:51] LABS: Albumin 3.5 g/dL (3.5-5.0); Calcium 8.9 mg/dL (8.4-10.2); Potassium 4.7 mmol/L (3.5-5.1); Total Bilirubin 0.5 mg/dL (0.2-1.3); Total Protein 5.6 g/dL (6.3-8.2)
[2018-05-18] MEDS: INSULIN ASPART (NovoLOG) 100 UNIT/ML VIAL SQ SCH ×4 (07:06→14:38)
[2018-05-18] MEDS: HYDROcodone/APAP 10-325MG 1 EACH TAB PO PRN ×2 (07:12→11:16)
--- NOTE | 2018-05-18 08:00 | P.DS ---
Providers Date of admission: 05/14/18 14:42 Attending physician: Yusuf Lind Consults: 05/14/18 14:33 Consult Physician Routine Consulting Provider: Adriana Steiner Consult Reason/Comments: COPD, CHF Do you want consulting provider notified?: Yes Consult Physician Routine Consulting Provider: Cale Manning Consult Reason/Comments: At bedtime, elevated troponin, COPD exacerbation Do you want consulting provider notified?: Yes Primary care physician: Yusuf Lind - Discharge Diagnosis(es) (1) Acute exacerbation of chronic obstructive airways disease Current Visit: Yes Status: Acute (2) Adult respiratory distress syndrome Current Visit: Yes Status: Acute (3) Elevated troponin I level Current Visit: Yes Status: Acute (4) Failure of outpatient treatment Current Visit: Yes Status: Acute (5) Systolic congestive heart failure Current Visit: Yes Status: Acute (6) Chronic pancreatitis Current Visit: No Status: Acute (7) Diabetes Current Visit: No Status: Acute (8) High risk for readmission Current Visit: No Status: Acute (9) NICM (nonischemic cardiomyopathy) Current Visit: No Status: Acute Hospital Course: This discharge summary 57-year-old white male essentially admitted for exacerbation of CHF and COPD. The patient was stabilized from medical perspective but given his overall prognosis hospice was discussed and he is agreeable to this at this time, although reluctantly. We will place on prednisone and appropriate CHF medication. The patient is discharged in serous condition to follow-up with me in approximately 3-5 days, once cleared by consultants. Patient Condition at Discharge: Serious Plan - Discharge Summary Discharge Rx Participant: Yes New Discharge Prescriptions: New Ipratropium-Albuterol Nebulize [Duoneb 0.5 mg-3 mg/3 ml Soln] 3 ml INHALATION RT-QID ampul.neb Isosorbide Mononitrate ER [Imdur] 30 mg PO DAILY #30 tab.er.24h Nicotine 21Mg/24Hr Patch [Habitrol] 1 patch TRANSDERM DAILY #30 patch Spironolactone [Aldactone] 25 mg PO DAILY #30 tab Continue Pregabalin [Lyrica] 150 mg PO TID Insulin Lispro [humaLOG Kwikpen] See Protocol SQ ACHS Insulin Degludec [Tresiba Flextouch U-200] 28 unit SQ DAILY Albuterol Nebulized [Ventolin Nebulized] 2.5 mg INHALATION RT-QID PRN nebu PRN Reason: Shortness Of Breath Or Wheezing Zolpidem [Ambien] 10 mg PO HS PRN PRN Reason: Insomnia Docusate [Colace] 100 mg PO DAILY Cetirizine HCl [Zyrtec] 10 mg PO DAILY Famotidine 20 mg PO BID Ergocalciferol (Vitamin D2) [Vitamin D2] 50,000 unit PO Q7D Metoprolol Succinate (ER) [Toprol XL] 25 mg PO DAILY #30 tab.er.24h predniSONE 40 mg PO DAILY #7 tab Saline Nasal Gel [Oscar Nasal Gel] 1 applic TOPICAL Q4HR PRN gm PRN Reason: Dry Nasal Passages Sacubitril/Valsartan [Entresto 24 mg-26 mg Tablet] 1 tab PO BID HYDROcodone/APAP 10-325MG [Bristol 10-325] 1 tab PO Q4HR PRN #120 tab PRN Reason: Pain Discharge Medication List Insulin Degludec [Tresiba Flextouch U-200] 28 unit SQ DAILY 03/22/18 [History] Insulin Lispro [humaLOG Kwikpen] See Protocol SQ ACHS 03/22/18 [History] Pregabalin [Lyrica] 150 mg PO TID 03/22/18 [History] Albuterol Nebulized [Ventolin Nebulized] 2.5 mg INHALATION RT-QID PRN nebu [Rx] Cetirizine HCl [Zyrtec] 10 mg PO DAILY 05/04/18 [History] Docusate [Colace] 100 mg PO DAILY 05/04/18 [History] Ergocalciferol (Vitamin D2) [Vitamin D2] 50,000 unit PO Q7D 05/04/18 [History] Famotidine 20 mg PO BID 05/04/18 [History] Zolpidem [Ambien] 10 mg PO HS PRN 05/04/18 [History] Metoprolol Succinate (ER) [Toprol XL] 25 mg PO DAILY #30 tab.er.24h 05/09/18 [Rx ] Saline Nasal Gel [Oscar Nasal Gel] 1 applic TOPICAL Q4HR PRN gm 05/09/18 [Rx] predniSONE 40 mg PO DAILY #7 tab 05/09/18 [Rx] Sacubitril/Valsartan [Entresto 24 mg-26 mg Tablet] 1 tab PO BID 05/14/18 [ History] HYDROcodone/APAP 10-325MG [Bristol 10-325] 1 tab PO Q4HR PRN #120 tab 05/18/18 [Rx ] Ipratropium-Albuterol Nebulize [Duoneb 0.5 mg-3 mg/3 ml Soln] 3 ml INHALATION RT -QID ampul.neb 05/18/18 [Rx] Isosorbide Mononitrate ER [Imdur] 30 mg PO DAILY #30 tab.er.24h 05/18/18 [Rx] Nicotine 21Mg/24Hr Patch [Habitrol] 1 patch TRANSDERM DAILY #30 patch 05/18/18 [ Rx] Spironolactone [Aldactone] 25 mg PO DAILY #30 tab 05/18/18 [Rx] Follow up Appointment(s)/Referral(s): Yusuf Lind MD [Primary Care Provider] - 3 Days Discharge Disposition: HOME WITH HOSPICE
[2018-05-18 08:29] VITALS: RESP 18
[2018-05-18] MEDS: SACUBITRIL/VALSARTAN 49 MG-51 MG TABLET PO SCH (09:01)
[2018-05-18] MEDS: SPIRONOLACTONE 25 MG TAB PO SCH (09:01)
[2018-05-18] MEDS: PREGABALIN 75 MG CAP PO SCH (09:01)
[2018-05-18] MEDS: LORATADINE 10 MG TAB PO SCH (09:01)
[2018-05-18] MEDS: METOPROLOL SUCCINATE (ER) 25 MG TAB.ER.24H PO SCH (09:01)
[2018-05-18] MEDS: DOCUSATE 100 MG CAP PO SCH (09:01)
[2018-05-18] MEDS: predniSONE 20 MG TAB PO SCH (09:02)
[2018-05-18] MEDS: ISOSORBIDE MONONITRATE ER 30 MG TAB.ER.24H PO SCH (09:02)
[2018-05-18] MEDS: NICOTINE 21MG/24HR PATCH TRANSDERM SCH (09:02)
[2018-05-18] MEDS: FAMOTIDINE 20 MG TAB PO SCH (09:02)
[2018-05-18] MEDS: FUROSEMIDE 10 MG/ML 4 ML VIAL IV SCH (09:02)
[2018-05-18] MEDS: IPRATROPIUM-ALBUTEROL 3 ML NEB INHALATION SCH ×2 (09:09→12:14)
[2018-05-18] MEDS: SYMBICORT 160-4.5 MCG INHALER INHALATION SCH (09:10)
[2018-05-18 11:37] LABS: Glucose,Whole Blood 118 mg/dL (75-99)
--- NOTE | 2018-05-18 12:15 | P.PN ---
Subjective Progress Note Date: 05/18/18 This is a 57-year-old gentleman who follows with Dr. Be in the office. He has a known history of nonischemic cardiomyopathy secondary to EtOH abuse, chronic systolic congestive heart failure, hypertension, diabetes, COPD, O2 dependence, diaphragmatic paralysis, hyperlipidemia, prior AICD implantation , chronic pancreatitis, nicotine dependence,,History of alcoholism. He was just recently in the hospital with an exacerbation of congestive cardiac failure. He re-presents to the hospital on this occasion with symptoms of orthopnea, shortness of breath and edema. He states that he has significant swelling in both of his legs up into his scrotal area. According to the patient he was taking his medications as prescribed, he denies using any alcohol or excessive salt since his discharge from here. Chest x-ray on arrival here shows cardiomegaly with interstitial change and trace effusions, mild congestive heart failure. EKG shows a normal sinus rhythm with occasional PVCs, nonspecific ST changes. Blood pressure 105/60 with a heart rate in the 60s, 95% on 4 L of oxygen. Blood cell count 6.4, hemoglobin 12.5, platelet count 140. Sodium 133, potassium 4.4, BUN 29 and creatinine 0.9. Blood glucose on arrival 493. Magnesium 2.1. BNP level 43,100. troponins .078, .062 , .060. Patient is noted on recent admissions to have abnormality in troponins. BNP level on the seventh of this month 16,400. At the time of my examination this morning, he is sitting up in bed, states that he is already put out a significant amount of urine since his admission here. Continues to feel short of breath however much improved from admission. 05/16/2018 Patient was seen and examined this morning, diuresing well through the night last night, weight is down 1 kg today. Echocardiogram with Doppler study remains pending. Patient continues to be on IV Lasix drip at 10 mg per hour. Blood pressure 108/70 with a heart rate of 90, white blood cell count 7.2, hemoglobin 13.0, platelet count 162. Sodium 132, potassium 3.9, BUN 29, creatinine 1.2. 05/17/2018 Patient seen and examined today, overall looking somewhat better. Last night complained of significant chest tightness through the night. We did start him on Imdur. Blood pressure today 112/70 with a heart rate in the 80s, 97% on 2 L of oxygen. Edema significantly improved today. Discussions are being made regarding possible hospice. 05/18/2018 Patient seen and examined this morning, he's been up ambulating with physical therapy, overall doing well. We will discontinue the IV Lasix and discharged the patient home today with Demadex. Follow-up appointment in the office with Dr. Jeffrey post discharge. Objective - Vital Signs Vital signs: Vital Signs Temp 98.1 F 05/18/18 08:00 Pulse 92 05/18/18 09:24 Resp 18 05/18/18 08:00 BP 141/62 05/18/18 08:00 Pulse Ox 95 05/18/18 08:00 Intake & Output 05/17/18 05/18/18 05/18/18 18:59 06:59 18:59 Intake Total 1320 540 Output Total 875 450 Balance 445 -450 540 Weight 59.5 kg Intake: Oral 1320 540 Output: Urine 875 450 Other: Voiding Method Toilet Urinal # Voids 1 - Exam PHYSICAL EXAMINATION: GENERAL: 57-year-old gentleman in no acute distress at the time of my examination HEENT: Head is atraumatic, normocephalic. Pupils equal, round. Sclera anicteric. Conjunctiva are clear. Mucous membranes of the mouth are moist. Neck is supple. There is elevated jugular venous pressure. No carotid bruit is heard. HEART EXAMINATION: Heart S1 and S2 systolic murmur is heard. CHEST EXAMINATION: Lungs reveal improvement in air entry bilaterally ABDOMEN: Soft, nontender. Bowel sounds are heard. No organomegaly noted. EXTREMITIES: 2+ peripheral pulses with trace evidence of peripheral edema and no calf tenderness noted. NEUROLOGIC patient is awake, alert and oriented 3 . . - Labs CBC & Chem 7: 05/18/18 06:16 05/18/18 06:16 Labs: Abnormal Lab Results - Last 24 Hours (Table) 05/17/18 05/17/18 05/18/18 Range/Units 15:15 20:25 06:06 MCHC (31.0-37.0) g/dL Sodium (137-145) mmol/L Chloride (98-107) mmol/L Carbon Dioxide (22-30) mmol/L BUN (9-20) mg/dL Creatinine (0.66-1.25) mg/dL Glucose (74-99) mg/dL POC Glucose (mg/dL) 72 L 157 H 190 H (75-99) mg/dL Total Protein (6.3-8.2) g/dL 05/18/18 05/18/18 05/18/18 Range/Units 06:16 06:16 11:33 MCHC 30.7 L (31.0-37.0) g/dL Sodium 135 L (137-145) mmol/L Chloride 89 L (98-107) mmol/L Carbon Dioxide 38 H (22-30) mmol/L BUN 51 H (9-20) mg/dL Creatinine 1.79 H (0.66-1.25) mg/dL Glucose 209 H (74-99) mg/dL POC Glucose (mg/dL) 118 H (75-99) mg/dL Total Protein 5.6 L (6.3-8.2) g/dL Assessment and Plan Plan: Assessment and plan #1 systolic congestive heart failure acute on chronic #2 nonischemic cardiomyopathy secondary to EtOH abuse #3 COPD #4 nicotine dependence #5 diabetes, uncontrolled #6 hypertension #7 hyperlipidemia #8 EtOH abuse Plan From cardiology's perspective, we will change patient over to oral diuretics in the form of Demadex. He may be able to be discharged home once cleared by primary. Follow-up appointment in the office with Dr. Be. DNP note has been reviewed, I agree with a documented findings and plan of care. Patient was seen and examined.
[2018-05-18 12:23] VITALS: BP 97/66; TEMP 97.6
[2018-05-18 15:49] VITALS: PULSE 87
--- NOTE | 2018-05-18 16:44 | P.PN ---
Subjective Progress Note Date: 05/18/18 Principal diagnosis: Acute hypoxemic respiratory failure secondary to an acute exacerbation of chronic systolic congestive heart failure and a component of acute exacerbation of chronic obstructive pulmonary disease. The patient is seen again today 05/18/2017 in follow-up on the selective care unit. He is currently awake and alert in no acute distress. He is planning to be discharged home today. He states he is back to his baseline as far as his breathing is concerned. His lower extremity edema has resolved. Maintaining good O2 saturations in the mid 90s on 2 L/m per nasal cannula. He's been afebrile. Hemodynamically stable. White count 7.4. Hemoglobin 14.4. Creatinine 1.79. His been maintained on DuoNeb inhalations, Symbicort, IV diuretics. Remains in a negative balance. Objective - Vital Signs Vital signs: Vital Signs Temp 97.6 F 05/18/18 12:00 Pulse 96 05/18/18 12:24 Resp 18 05/18/18 12:00 BP 97/66 05/18/18 12:00 Pulse Ox 95 05/18/18 12:00 Intake & Output 05/17/18 05/18/18 05/18/18 18:59 06:59 18:59 Intake Total 1320 720 Output Total 875 450 Balance 445 -450 720 Weight 59.5 kg Intake: Oral 1320 720 Output: Urine 875 450 Other: Voiding Method Toilet Toilet Urinal Urinal # Voids 1 - Exam GENERAL EXAM: Alert, frail, cachectic, comfortable in no apparent distress. On 2 L nasal cannula HEAD: Normocephalic. EYES: Normal reaction of pupils, equal size. NOSE: Clear with pink turbinates. THROAT: No erythema or exudates. NECK: No masses, no JVD. CHEST: No chest wall deformity. LUNGS: Equal air entry with echoes in the bilateral bases, end expiratory wheeze , diminished. CVS: S1 and S2 normal with no audible murmur, regular rhythm. ABDOMEN: No hepatosplenomegaly, normal bowel sounds, no guarding or rigidity. SPINE: No scoliosis or deformity SKIN: No rashes CENTRAL NERVOUS SYSTEM: No focal deficits, tone is normal in all 4 extremities. EXTREMITIES: There is no peripheral edema. No clubbing, no cyanosis. Peripheral pulses are intact. - Labs CBC & Chem 7: 05/18/18 06:16 05/18/18 06:16 Labs: Abnormal Lab Results - Last 24 Hours (Table) 05/17/18 05/18/18 05/18/18 Range/Units 20:25 06:06 06:16 MCHC 30.7 L (31.0-37.0) g/dL Sodium (137-145) mmol/L Chloride (98-107) mmol/L Carbon Dioxide (22-30) mmol/L BUN (9-20) mg/dL Creatinine (0.66-1.25) mg/dL Glucose (74-99) mg/dL POC Glucose (mg/dL) 157 H 190 H (75-99) mg/dL Total Protein (6.3-8.2) g/dL 05/18/18 05/18/18 Range/Units 06:16 11:33 MCHC (31.0-37.0) g/dL Sodium 135 L (137-145) mmol/L Chloride 89 L (98-107) mmol/L Carbon Dioxide 38 H (22-30) mmol/L BUN 51 H (9-20) mg/dL Creatinine 1.79 H (0.66-1.25) mg/dL Glucose 209 H (74-99) mg/dL POC Glucose (mg/dL) 118 H (75-99) mg/dL Total Protein 5.6 L (6.3-8.2) g/dL Assessment and Plan Assessment: Impression: #1 Acute on chronic hypoxemic respiratory failure secondary to an acute exacerbation of chronic systolic congestive heart failure along with an acute exacerbation of chronic obstructive pulmonary disease. #2 Ischemic cardiomyopathy with severely impaired left ventricular systolic function with ejection fraction less than 20%, status post AICD placement. #3 Severe chronic obstructive pulmonary disease, oxygen dependent. #4 Chronic and ongoing tobacco dependence. #5 History of chronic alcoholism. #6 Chronic pancreatitis with history of pancreatic pseudocyst and malabsorption secondary to chronic pancreatic insufficiency. #7 Diabetes mellitus. #8 Hypertension. #9 Hyperlipidemia. #10 Degenerative arthritis. #11 Acute on chronic renal failure. Current creatinine 1.79. Plan: The patient was seen and evaluated by Dr. Khanna. He is cleared for discharge from the pulmonary standpoint. There has been some ongoing discussion regarding hospice which the patient and his family are discussing. If not placed in hospice, he'll follow-up in our office in 1-2 weeks' time. He is encouraged to call sooner with any recurrence of symptoms or other questions or concerns. I, the cosigning physician, performed a history & physical examination of the patient. Lungs sounds with bilateral end expiratory wheeze, posterior crackles, diminished. Maintaining good O2 saturations in the 90s on 2 L/m per nasal cannula. I discussed the assessment and plan of care with my nurse practitioner , Elenita Anne. I attest to the above note as dictated by her.
[2018-05-19] MEDS ORDERED: FAMOTIDINE 20 MG TAB PO SCH (09:00)
[2018-05-20] MEDS ORDERED: ERGOCALCIFEROL 50,000 UNIT CAP PO SCH (09:00)
== END 2018-05-18 15:49 | disposition hospice, home (50) | DRG 291 ==
LOC: EC 10:54 → 3SCARD 14:42
PROVIDERS: ADMIT Family Medicine; ATTEND Family Medicine
DX: I13.0 Hypertensive heart and chronic kidney disease with heart failure and stage 1 through stage 4 chronic kidney disease, or unspecified chronic kidney disease (principal); I50.23 Acute on chronic systolic (congestive) heart failure; J96.21 Acute and chronic respiratory failure with hypoxia; J44.1 Chronic obstructive pulmonary disease with (acute) exacerbation; K86.1 Other chronic pancreatitis; K86.3 Pseudocyst of pancreas; N17.9 Acute kidney failure, unspecified; K90.9 Intestinal malabsorption, unspecified; E11.22 Type 2 diabetes mellitus with diabetic chronic kidney disease; E11.65 Type 2 diabetes mellitus with hyperglycemia; E78.5 Hyperlipidemia, unspecified; F10.20 Alcohol dependence, uncomplicated; F17.210 Nicotine dependence, cigarettes, uncomplicated; I25.5 Ischemic cardiomyopathy; I42.6 Alcoholic cardiomyopathy; I49.3 Ventricular premature depolarization; K21.9 Gastro-esophageal reflux disease without esophagitis; K86.81 Exocrine pancreatic insufficiency; M19.90 Unspecified osteoarthritis, unspecified site; N18.9 Chronic kidney disease, unspecified; N50.89 Other specified disorders of the male genital organs; Z79.4 Long term (current) use of insulin; Z79.899 Other long term (current) drug therapy; Z82.49 Family history of ischemic heart disease and other diseases of the circulatory system; Z82.5 Family history of asthma and other chronic lower respiratory diseases; Z83.3 Family history of diabetes mellitus; Z87.01 Personal history of pneumonia (recurrent); Z95.810 Presence of automatic (implantable) cardiac defibrillator; Z99.81 Dependence on supplemental oxygen; Z79.891 Long term (current) use of opiate analgesic; Z79.52 Long term (current) use of systemic steroids; Z88.6 Allergy status to analgesic agent; Z88.5 Allergy status to narcotic agent; Z51.5 Encounter for palliative care; Z66 Do not resuscitate
CPT/HCPCS: 36415; 71046; 80053; 82550; 82553; 83036; 83735; 83880; 84484; 85025; 85610; 85730; 93005; 94640; 94760; 96365; 96366; 96375; 96376; 99291

== ENCOUNTER 2018-05-24 12:11 | Inpatient (IN) | payer MEDICARE, OTHER ==
[2018-05-24] MEDS ORDERED: SODIUM CHLORIDE 0.9% 2,000 ML IV STA (12:31)
[2018-05-24] MEDS ORDERED: methylPREDNISolone SOD SUCCI 125 MG/2 ML VIAL IV STA (12:40)
[2018-05-24] MEDS ORDERED: SODIUM CHLORIDE 0.9% 1,000 ML IV STA ×3 (12:40→19:13)
--- NOTE | 2018-05-24 12:44 | ED ---
Weakness HPI - General Chief complaint: Recheck/Abnormal Lab/Rx Stated complaint: Hyperglycemia >600 Time Seen by Provider: 05/24/18 12:31 Source: patient, RN notes reviewed, old records reviewed Mode of arrival: wheelchair Limitations: no limitations - History of Present Illness Initial comments: This is a 57-year-old male the ER for evaluation. Patient was sent in for abnormal lab tests liver does admit some weakness and shortness of breath as well as pain. Patient has had blood sugar running with others for about 4 days ever since discharge from hospital. He does have diabetes and was placed on steroids secondary COPD. His admission also included problems with CHF and elevated blood sugar as well. Patient denies any abdominal pain no chest pain. No shortness of breath currently MD Complaint: generalized weakness Location: generalized Severity: mild Severity scale (1-10): 3 Consistency: constant Improves with: none Worsens with: none Context: recent illness, history of similar Associated Symptoms: fever/chills, nausea/vomiting - Related Data Home Medications Medication Instructions Recorded Confirmed Insulin Lispro [humaLOG Kwikpen] See Protocol SQ ACHS 03/22/18 05/24/18 Pregabalin [Lyrica] 150 mg PO TID 03/22/18 05/24/18 Cetirizine HCl [Zyrtec] 10 mg PO DAILY 05/04/18 05/24/18 Docusate [Colace] 100 mg PO DAILY 05/04/18 05/24/18 Ergocalciferol (Vitamin D2) 50,000 unit PO Q7D 05/04/18 05/24/18 [Vitamin D2] Famotidine 20 mg PO BID 05/04/18 05/24/18 Zolpidem [Ambien] 10 mg PO HS PRN 05/04/18 05/24/18 Sacubitril/Valsartan [Entresto 24 1 tab PO BID 05/14/18 05/24/18 mg-26 mg Tablet] INSULIN LISPRO (humaLOG) [humaLOG] 10 unit SQ AC-TID 05/24/18 05/24/18 Metolazone [Zaroxolyn] 5 mg PO DAILY 05/24/18 05/24/18 Previous Rx's Medication Instructions Recorded Albuterol Nebulized [Ventolin 2.5 mg INHALATION RT-QID PRN nebu 03/24/18 Nebulized] Metoprolol Succinate (ER) [Toprol 25 mg PO DAILY #30 tab.er.24h 05/09/18 XL] Saline Nasal Gel [[place] Nasal Gel] 1 applic TOPICAL Q4HR PRN gm 05/09/18 HYDROcodone/APAP 10-325MG [[place] 1 tab PO Q4HR PRN #120 tab 05/18/18 10-325] Insulin Degludec [Tresiba 32 unit SQ DAILY #3 insuln.pen 05/18/18 Flextouch U-200] Ipratropium-Albuterol Nebulize 3 ml INHALATION RT-QID ampul.neb 05/18/18 [Duoneb 0.5 mg-3 mg/3 ml Soln] Isosorbide Mononitrate ER [Imdur] 30 mg PO DAILY #30 tab.er.24h 05/18/18 Nicotine 21Mg/24Hr Patch [Habitrol] 1 patch TRANSDERM DAILY #30 patch 05/18/18 Spironolactone [Aldactone] 25 mg PO DAILY #30 tab 05/18/18 Torsemide [Demadex] 20 mg PO BID #60 tablet 05/18/18 Allergies Allergy/AdvReac Type Severity Reaction Status Date / Time meperidine HCl [From Demerol] Allergy Severe Rapid Verified 05/24/18 13:37 Heart Rate/VOMITING mayonnaise Allergy Nausea & Verified 05/24/18 13:37 Vomiting & Diarrhea ibuprofen [From Motrin] AdvReac Vomiting Verified 05/24/18 13:37 Review of Systems ROS Statement: Those systems with pertinent positive or pertinent negative responses have been documented in the HPI. ROS Other: All systems not noted in ROS Statement are negative. Past Medical History Past Medical History: Heart Failure, COPD, Diabetes Mellitus, GERD/Reflux, Pneumonia, Renal Disease Additional Past Medical History / Comment(s): Severe COPD, chronic hypoxic respiratory failure, cardiomyopathy, AICD placement, chronic alcoholism, chronic pancreatitis, diabetes mellitus, hypertension, hyperlipidemia, chronic smoker, chronic pancreatic insufficiency with malabsorption, pancreatic pseudocyst, history of degenerative arthritis, history of bone infection, history of perforated left tympanic membranes History of Any Multi-Drug Resistant Organisms: None Reported Past Surgical History: AICD Past Anesthesia/Blood Transfusion Reactions: No Reported Reaction Type of Cardiac Device: AICD Device Placement Date:: UNKNOWN Past Psychological History: No Psychological Hx Reported Smoking Status: Former smoker Past Alcohol Use History: None Reported Past Drug Use History: None Reported - Past Family History Father Family Medical History: Congestive Heart Failure (CHF), COPD, Diabetes Mellitus Additional Family Medical History / Comment(s): mrsa, gbs, asbestoes exposure/ lings Mother Family Medical History: Diabetes Mellitus, Hypertension General Exam Limitations: no limitations General appearance: alert, in no apparent distress Head exam: Present: atraumatic, normocephalic, normal inspection Eye exam: Present: normal appearance, PERRL, EOMI. Absent: scleral icterus, conjunctival injection, periorbital swelling ENT exam: Present: normal exam, mucous membranes moist Neck exam: Present: normal inspection. Absent: tenderness, meningismus, lymphadenopathy Respiratory exam: Present: normal lung sounds bilaterally. Absent: respiratory distress, wheezes, rales, rhonchi, stridor Cardiovascular Exam: Present: normal rhythm, bradycardia, normal heart sounds. Absent: systolic murmur, diastolic murmur, rubs, gallop, clicks GI/Abdominal exam: Present: soft, normal bowel sounds. Absent: distended, tenderness, guarding, rebound, rigid Extremities exam: Present: normal inspection, full ROM, normal capillary refill. Absent: tenderness, pedal edema, joint swelling, calf tenderness Back exam: Present: normal inspection Neurological exam: Present: alert, oriented X3, CN II-XII intact Psychiatric exam: Present: normal affect, normal mood Skin exam: Present: warm, dry, intact, normal color. Absent: rash Course Vital Signs 05/24/18 05/24/18 05/24/18 12:23 12:43 13:00 Temperature 93.6 F L Pulse Rate 51 L Respiratory 22 Rate Blood Pressure 90/58 129/77 O2 Sat by Pulse 98 98 99 Oximetry 05/24/18 05/24/18 05/24/18 13:30 14:00 14:30 Temperature 97.0 F L Pulse Rate 86 54 L Respiratory 14 18 Rate Blood Pressure 120/71 89/62 120/81 O2 Sat by Pulse 99 98 Oximetry 05/24/18 05/24/18 05/24/18 14:45 15:00 15:15 Temperature Pulse Rate Respiratory Rate Blood Pressure 120/81 120/81 136/115 O2 Sat by Pulse 99 97 Oximetry 05/24/18 05/24/18 05/24/18 15:30 15:45 16:00 Temperature Pulse Rate Respiratory Rate Blood Pressure 136/115 151/135 151/135 O2 Sat by Pulse 98 Oximetry 05/24/18 05/24/18 05/24/18 16:10 16:15 16:30 Temperature Pulse Rate 85 Respiratory 18 Rate Blood Pressure 70/44 70/44 72/56 O2 Sat by Pulse 98 98 98 Oximetry 05/24/18 05/24/18 05/24/18 16:45 17:00 17:15 Temperature Pulse Rate 83 Respiratory 18 Rate Blood Pressure 62/51 64/47 73/51 O2 Sat by Pulse 98 97 Oximetry 05/24/18 05/24/18 05/24/18 17:30 17:45 18:00 Temperature Pulse Rate 82 Respiratory 18 Rate Blood Pressure 97/62 74/51 74/51 O2 Sat by Pulse 100 100 100 Oximetry 05/24/18 18:50 Temperature Pulse Rate 78 Respiratory 18 Rate Blood Pressure 90/65 O2 Sat by Pulse 99 Oximetry - Reevaluation(s) Reevaluation #1: 05/24/18 13:33 Medical record and prior hospitalization I reviewed Reevaluation #2: 05/24/18 16:34 Patient throughout ER stay is maintaining that he feels well and wants to be discharged home, his blood sugar is now improved Reevaluation #3: 05/24/18 16:34 Patient warned of low blood pressure, he states he is not want stay in hospital for low blood pressure, patient given advice of what medications not to take as a he is on some medications that can low blood pressure Medical Decision Making - Medical Decision Making 57 male the ER for evaluation. Patient resents today for evaluation regarding abnormally high blood sugar. Patient is on steroids secondary to recent diagnosis of bronchitis and hospital admission. Patient dehydrated on exam, although he feels normal with IV fluids here in the emergency room. At this time patient is agreeable to admission - Lab Data Result diagrams: 05/24/18 12:49 05/24/18 12:49 Lab Results 05/24/18 05/24/18 05/24/18 Range/Units 12:49 12:49 13:33 WBC 5.3 (3.8-10.6) k/uL RBC 5.22 (4.30-5.90) m/uL Hgb 15.4 (13.0-17.5) gm/dL Hct 49.0 (39.0-53.0) % MCV 93.8 (80.0-100.0) fL MCH 29.6 (25.0-35.0) pg MCHC 31.5 (31.0-37.0) g/dL RDW 13.9 (11.5-15.5) % Plt Count 225 (150-450) k/uL Neutrophils % 60 % Lymphocytes % 25 % Monocytes % 10 % Eosinophils % 1 % Basophils % 1 % Neutrophils # 3.2 (1.3-7.7) k/uL Lymphocytes # 1.3 (1.0-4.8) k/uL Monocytes # 0.5 (0-1.0) k/uL Eosinophils # 0.1 (0-0.7) k/uL Basophils # 0.0 (0-0.2) k/uL VBG pH 7.45 H (7.31-7.41) VBG pCO2 38 (37-51) mmHg VBG HCO3 26 (24-28) mmol/L Sodium 125 L (137-145) mmol/L Potassium 5.0 (3.5-5.1) mmol/L Chloride 86 L (98-107) mmol/L Carbon Dioxide 25 (22-30) mmol/L Anion Gap 14 mmol/L BUN 62 H (9-20) mg/dL Creatinine 1.31 H (0.66-1.25) mg/dL Est GFR (CKD-EPI)AfAm 69 (>60 ml/min/1.73 sqM) Est GFR (CKD-EPI)NonAf 59 (>60 ml/min/1.73 sqM) Glucose 659 H* (74-99) mg/dL POC Glucose (mg/dL) (75-99) mg/dL POC Glu Institution Director ID Calcium 9.4 (8.4-10.2) mg/dL Phosphorus 3.5 (2.5-4.5) mg/dL Magnesium 2.3 (1.6-2.3) mg/dL Total Bilirubin 0.8 (0.2-1.3) mg/dL AST 217 H (17-59) U/L ALT 193 H (21-72) U/L Alkaline Phosphatase 232 H (38-126) U/L Total Protein 6.5 (6.3-8.2) g/dL Albumin 4.3 (3.5-5.0) g/dL Amylase 39 (30-110) U/L Lipase 375 H (23-300) U/L Acetone, Qual Negative (Negative) 05/24/18 05/24/18 Range/Units 14:56 16:05 WBC (3.8-10.6) k/uL RBC (4.30-5.90) m/uL Hgb (13.0-17.5) gm/dL Hct (39.0-53.0) % MCV (80.0-100.0) fL MCH (25.0-35.0) pg MCHC (31.0-37.0) g/dL RDW (11.5-15.5) % Plt Count (150-450) k/uL Neutrophils % % Lymphocytes % % Monocytes % % Eosinophils % % Basophils % % Neutrophils # (1.3-7.7) k/uL Lymphocytes # (1.0-4.8) k/uL Monocytes # (0-1.0) k/uL Eosinophils # (0-0.7) k/uL Basophils # (0-0.2) k/uL VBG pH (7.31-7.41) VBG pCO2 (37-51) mmHg VBG HCO3 (24-28) mmol/L Sodium (137-145) mmol/L Potassium (3.5-5.1) mmol/L Chloride (98-107) mmol/L Carbon Dioxide (22-30) mmol/L Anion Gap mmol/L BUN (9-20) mg/dL Creatinine (0.66-1.25) mg/dL Est GFR (CKD-EPI)AfAm (>60 ml/min/1.73 sqM) Est GFR (CKD-EPI)NonAf (>60 ml/min/1.73 sqM) Glucose (74-99) mg/dL POC Glucose (mg/dL) 574 H 354 H (75-99) mg/dL POC Glu Institution Director ID Bam KnightMercedes blanchard Nivia Calcium (8.4-10.2) mg/dL Phosphorus (2.5-4.5) mg/dL Magnesium (1.6-2.3) mg/dL Total Bilirubin (0.2-1.3) mg/dL AST (17-59) U/L ALT (21-72) U/L Alkaline Phosphatase (38-126) U/L Total Protein (6.3-8.2) g/dL Albumin (3.5-5.0) g/dL Amylase (30-110) U/L Lipase (23-300) U/L Acetone, Qual (Negative) - Radiology Data Radiology results: report reviewed (Chest x-rays negative for acute disease, ultrasound gallbladder is negative), image reviewed Disposition Clinical Impression: Hyperglycemia, Hypotension Disposition: ADMITTED IP TO THIS HOSP Condition: Good Instructions (If sedation given, give patient instructions): Diabetic Hyperglycemia (ED) Is patient prescribed a controlled substance at d/c from ED?: No Referrals: Yusuf Lind MD [Primary Care Provider] - 1-2 days
[2018-05-24] MEDS ORDERED: MORPHINE SULFATE 4 MG/ML SYRINGE IVP STA (13:16)
[2018-05-24] MEDS ORDERED: ONDANSETRON 4 MG/2 ML VIAL IVP STA (13:16)
[2018-05-24 13:27] LABS: Basophils % (A) 1 %; Eosinophils # (A) 0.1 k/uL (0-0.7); Eosinophils % (A) 1 %; HGB 15.4 gm/dL (13.0-17.5); Lymphocytes # (A) 1.3 k/uL (1.0-4.8); Lymphocytes % (A) 25 %; MCH 29.6 pg (25.0-35.0); MCHC 31.5 g/dL (31.0-37.0); MCV 93.8 fL (80.0-100.0); Mean Platelet Volume 7.2; Monocytes # (A) 0.5 k/uL (0-1.0); Monocytes % (A) 10 %; Neutrophils # (A) 3.2 k/uL (1.3-7.7); Neutrophils % (A) 60 %; Platelet Count 225 k/uL (150-450); RBC 5.22 m/uL (4.30-5.90); RDW 13.9 % (11.5-15.5); WBC 5.3 k/uL (3.8-10.6)
[2018-05-24 13:30] LABS: ALT 193 U/L (21-72); AST 217 U/L (17-59); Albumin 4.3 g/dL (3.5-5.0); Alkaline Phosphatase 232 U/L (38-126); Amylase 39 U/L (30-110); Anion Gap 14 mmol/L; Blood Urea Nitrogen 62 mg/dL (9-20); Calcium 9.4 mg/dL (8.4-10.2); Carbon Dioxide 25 mmol/L (22-30); Chloride 86 mmol/L (98-107); Lipase 375 U/L (23-300); Magnesium 2.3 mg/dL (1.6-2.3); Phosphorus 3.5 mg/dL (2.5-4.5); Sodium 125 mmol/L (137-145); Total Bilirubin 0.8 mg/dL (0.2-1.3); Total Protein 6.5 g/dL (6.3-8.2)
[2018-05-24 13:48] LABS: Glucose 659 mg/dL (74-99)
[2018-05-24 14:07] LABS: VBG PH 7.45 (7.31-7.41)
--- NOTE | 2018-05-24 14:18 | XR ---
EXAMINATION TYPE: XR chest 2V DATE OF EXAM: 05/24/2018 COMPARISON: 05/14/2018 TECHNIQUE: PA and lateral views submitted. HISTORY: Pain FINDINGS: The lungs are clear and there is no pneumothorax, pleural effusion, or focal pneumonia. Heart is en larged and there is a cardiac device. Hyperinflation suggests COPD. Arthropathy of the shoulder. Hype rtrophic and degenerative change of the spine. IMPRESSION: 1. Cardiomegaly and findings suggestive of COPD..
[2018-05-24] MEDS ORDERED: INSULIN REGULAR 100 UNIT/ML VIAL SQ ONE (14:30)
[2018-05-24] MEDS ORDERED: INSULIN REGULAR 100 UNIT/ML VIAL IV ONE (14:30)
[2018-05-24 14:58] LABS: Glucose,Whole Blood 574 mg/dL (75-99)
--- NOTE | 2018-05-24 16:13 | US ---
EXAMINATION TYPE: US gallbladder DATE OF EXAM: 05/24/2018 COMPARISON: CLINICAL HISTORY: Pain. No surgeries, npo, previous tests show panc abnormality EXAM MEASUREMENTS: Liver Length: 15.0cm Gallbladder Wall: 0.2 cm CBD: 0.6 cm CHD: 0.4 cm Right Kidney: 9.3 x 5.0 x 5.5 cm Limited exam due to overlying bowel gas Pancreas: Limited visualization due to bowel gas. Appears heterogenous with multiple echogenic foci with twinkling artifact, largest = 1.5 cm in body. Two possible cystic appearing lesions; 1- body - 2.0 x 1.2 x 1.5 cm. 2- head- 3.5 x 2.8 x 2.8 cm. Liver: wnl Gallbladder: mobile shadowing focus - 0.7 cm. Fold seen. Length - 8.6 cm Evidence for sonographic Victor's sign: neg CBD: Limited visualization Right Kidney: wnl IMPRESSION: 1. Suggestion of some calcification may be within the gallbladder. Consider chronic pancreatitis. Cli nical correlation is recommended. 2. Cystic areas within the pancreas. Consider CT abdomen for additional evaluation. 3. Cholelithiasis.
[2018-05-24 16:15] LABS: Glucose,Whole Blood 354 mg/dL (75-99)
[2018-05-24] MEDS ORDERED: SODIUM CHLORIDE 0.9% 500 ML 500 ML IV STA ×2 (17:16→19:13)
[2018-05-24 20:16] LABS: Appearance,Urine Clear (Clear); Bilirubin,Urine Negative (Negative); Blood,Urine Negative (Negative); Color,Urine Yellow; Glucose,Urine (UA) 4+ (Negative); Ketones,Urine Negative (Negative); Leukocyte Esterase,Urine Negative (Negative); Nitrite,Urine Negative (Negative); Protein,Urine Trace (Negative); Specific Gravity,Urine 1.009 (1.001-1.035); Urobilinogen,Urine <2.0 mg/dL (<2.0)
[2018-05-24 20:22] VITALS: BMI 17.4
[2018-05-24 21:43] LABS: Glucose,Whole Blood 350 mg/dL (75-99)
[2018-05-24 21:54] VITALS: RESP 16; TEMP 97.7
[2018-05-24] MEDS ORDERED: ALBUTEROL NEBULIZED 2.5 MG/3 ML INHALATION PRN (22:10)
[2018-05-24] MEDS ORDERED: HYDROcodone/APAP 10-325MG 1 EACH TAB PO PRN (22:10)
[2018-05-24] MEDS ORDERED: ZOLPIDEM 10 MG TAB PO PRN (22:10)
[2018-05-24] MEDS ORDERED: INSULIN DETEMIR (LEVEMIR) 100 UNIT/ML SYR SQ SCH (22:15)
[2018-05-24] MEDS: PREGABALIN 75 MG CAP PO SCH (22:29)
[2018-05-24] MEDS: INSULIN ASPART (NovoLOG) 100 UNIT/ML VIAL SQ SCH (22:30)
[2018-05-25 02:04] LABS: Glucose,Whole Blood 404 mg/dL (75-99)
[2018-05-25 06:08] LABS: Glucose,Whole Blood 280 mg/dL (75-99)
[2018-05-25 06:25] VITALS: BP 107/69; PULSE 74
[2018-05-25] MEDS: INSULIN ASPART (NovoLOG) 100 UNIT/ML VIAL SQ SCH (06:28)
[2018-05-25] MEDS ORDERED: INSULIN ASPART (NovoLOG) 100 UNIT/ML VIAL SQ SCH (07:30)
[2018-05-25] MEDS: IPRATROPIUM-ALBUTEROL 3 ML NEB INHALATION SCH ×2 (08:05→11:01)
--- NOTE | 2018-05-25 08:18 | P.HPIM ---
History of Present Illness Chief Complaint: Dehydration low blood pressure. This is a readmission on a 57-year-old white male with history of cardiomyopathy , COPD and poorly controlled blood sugar. History was obtained by the patient and the emergency room showed that the patient decreased by mouth liquid intake secondary to history of worsening edema. Edema was most likely related to history of CHF and he did not want to and during this so he discontinued appropriate by mouth intake and blood sugar was starting to elevate. Blood sugar was in 600s and he was admitted for hypotension dehydration. Since he has had significant rehospitalization, suggest ECF. Home health has suggested hospice which he declined as of yesterday. He is refusing to go to extended care facility. After long discussion with him and his family, they have suggested to compromise and have extra paid help from nursing. The patient admits his stubbornness. Review of Systems Constitutional: Denies chills, Denies fever Eyes: denies blurred vision, denies pain Ears, nose, mouth and throat: Denies headache, Denies sore throat Cardiovascular: Reports decreased exercise tolerance, Reports dyspnea on exertion, Reports edema, Reports leg edema, Reports shortness of breath Respiratory: Denies cough Gastrointestinal: Denies abdominal pain, Denies diarrhea, Denies nausea, Denies vomiting Musculoskeletal: Denies myalgias Integumentary: Denies pruritus, Denies rash Neurological: Denies numbness, Denies weakness Past Medical History Past Medical History: Heart Failure, COPD, Diabetes Mellitus, GERD/Reflux, Pneumonia, Renal Disease Additional Past Medical History / Comment(s): Severe COPD, chronic hypoxic respiratory failure, cardiomyopathy, AICD placement, chronic alcoholism, chronic pancreatitis, diabetes mellitus, hypertension, hyperlipidemia, chronic smoker, chronic pancreatic insufficiency with malabsorption, pancreatic pseudocyst, history of degenerative arthritis, history of bone infection, history of perforated left tympanic membranes History of Any Multi-Drug Resistant Organisms: None Reported Past Surgical History: AICD Past Anesthesia/Blood Transfusion Reactions: No Reported Reaction Type of Cardiac Device: AICD Device Placement Date:: UNKNOWN Smoking Status: Former smoker - Past Family History Father Family Medical History: Congestive Heart Failure (CHF), COPD, Diabetes Mellitus Additional Family Medical History / Comment(s): mrsa, gbs, asbestoes exposure/ lings Mother Family Medical History: Diabetes Mellitus, Hypertension Medications and Allergies Home Medications Medication Instructions Recorded Confirmed Type Insulin Lispro [humaLOG Kwikpen] See Protocol SQ ACHS 03/22/18 05/24/18 History Pregabalin [Lyrica] 150 mg PO TID 03/22/18 05/24/18 History Albuterol Nebulized [Ventolin 2.5 mg INHALATION RT-QID PRN nebu 03/24/18 Rx Nebulized] Cetirizine HCl [Zyrtec] 10 mg PO DAILY 05/04/18 05/24/18 History Docusate [Colace] 100 mg PO DAILY 05/04/18 05/24/18 History Ergocalciferol (Vitamin D2) 50,000 unit PO Q7D 05/04/18 05/24/18 History [Vitamin D2] Famotidine 20 mg PO BID 05/04/18 05/24/18 History Zolpidem [Ambien] 10 mg PO HS PRN 05/04/18 05/24/18 History Metoprolol Succinate (ER) [Toprol 25 mg PO DAILY #30 tab.er.24h 05/09/18 Rx XL] Saline Nasal Gel [[place] Nasal Gel] 1 applic TOPICAL Q4HR PRN gm 05/09/18 Rx Sacubitril/Valsartan [Entresto 24 1 tab PO BID 05/14/18 05/24/18 History mg-26 mg Tablet] HYDROcodone/APAP 10-325MG [[place] 1 tab PO Q4HR PRN #120 tab 05/18/18 05/24/18 Rx 10-325] Insulin Degludec [Tresiba 32 unit SQ DAILY #3 insuln.pen 05/18/18 05/24/18 Rx Flextouch U-200] Ipratropium-Albuterol Nebulize 3 ml INHALATION RT-QID ampul.neb 05/18/18 Rx [Duoneb 0.5 mg-3 mg/3 ml Soln] Isosorbide Mononitrate ER [Imdur] 30 mg PO DAILY #30 tab.er.24h 05/18/18 Rx Nicotine 21Mg/24Hr Patch [Habitrol] 1 patch TRANSDERM DAILY #30 patch 05/18/18 05/24/18 Rx Spironolactone [Aldactone] 25 mg PO DAILY #30 tab 05/18/18 05/24/18 Rx Torsemide [Demadex] 20 mg PO BID #60 tablet 05/18/18 05/24/18 Rx INSULIN LISPRO (humaLOG) [humaLOG] 10 unit SQ AC-TID 05/24/18 05/24/18 History Metolazone [Zaroxolyn] 5 mg PO DAILY 05/24/18 05/24/18 History Allergies Allergy/AdvReac Type Severity Reaction Status Date / Time meperidine HCl [From Demerol] Allergy Severe Rapid Verified 05/24/18 13:37 Heart Rate/VOMITING mayonnaise Allergy Nausea & Verified 05/24/18 13:37 Vomiting & Diarrhea ibuprofen [From Motrin] AdvReac Vomiting Verified 05/24/18 13:37 Physical Exam Vitals: Vital Signs Temp Pulse Pulse Resp BP BP Pulse Ox 05/25/18 06:23 97.7 F 74 16 107/69 98 05/25/18 00:40 73 16 95/52 98 05/24/18 21:44 97.7 F 80 16 95/54 96 05/24/18 21:04 71 18 97/58 100 05/24/18 21:00 97/62 05/24/18 20:30 108/82 05/24/18 20:01 96.9 F L 75 18 108/82 100 05/24/18 20:00 95/63 100 05/24/18 19:30 74 18 67/51 100 05/24/18 19:00 99 05/24/18 18:50 78 18 90/65 99 05/24/18 18:30 71/50 100 05/24/18 18:00 74/51 100 05/24/18 17:45 74/51 100 05/24/18 17:30 82 18 97/62 100 05/24/18 17:15 73/51 97 05/24/18 17:00 83 18 64/47 98 05/24/18 16:45 62/51 05/24/18 16:30 72/56 98 05/24/18 16:15 70/44 98 05/24/18 16:10 85 18 70/44 98 05/24/18 16:00 151/135 98 05/24/18 15:45 151/135 05/24/18 15:30 136/115 05/24/18 15:15 136/115 97 05/24/18 15:00 120/81 99 05/24/18 14:45 120/81 05/24/18 14:30 54 L 18 120/81 98 05/24/18 14:00 89/62 05/24/18 13:30 97.0 F L 86 14 120/71 99 05/24/18 13:00 129/77 99 05/24/18 12:43 98 05/24/18 12:23 93.6 F L 51 L 22 90/58 98 Intake and Output 05/24/18 05/25/18 05/25/18 22:59 06:59 14:59 Other: Voiding Method Toilet # Voids 1 Weight 55.3 kg 55.3 kg - EENT Eyes: EOMI - Neck Neck: no lymphadenopathy - Respiratory Respiratory: bilateral: CTA - Cardiovascular Rhythm: regular Heart sounds: normal: S1, S2 Abnormal Heart Sounds: no S3 Gallop - Gastrointestinal General gastrointestinal: soft, no tenderness - Integumentary Integumentary: no cellulitis Results CBC & Chem 7: 05/24/18 12:49 05/24/18 12:49 Labs: Abnormal Lab Results - Last 24 Hours (Table) 05/24/18 05/24/18 05/24/18 Range/Units 12:49 13:33 14:56 VBG pH 7.45 H (7.31-7.41) Sodium 125 L (137-145) mmol/L Chloride 86 L (98-107) mmol/L BUN 62 H (9-20) mg/dL Creatinine 1.31 H (0.66-1.25) mg/dL Glucose 659 H* (74-99) mg/dL POC Glucose (mg/dL) 574 H (75-99) mg/dL AST 217 H (17-59) U/L ALT 193 H (21-72) U/L Alkaline Phosphatase 232 H (38-126) U/L Lipase 375 H (23-300) U/L Urine Protein (Negative) Urine Glucose (UA) (Negative) 05/24/18 05/24/18 05/24/18 Range/Units 16:05 20:00 21:42 VBG pH (7.31-7.41) Sodium (137-145) mmol/L Chloride (98-107) mmol/L BUN (9-20) mg/dL Creatinine (0.66-1.25) mg/dL Glucose (74-99) mg/dL POC Glucose (mg/dL) 354 H 350 H (75-99) mg/dL AST (17-59) U/L ALT (21-72) U/L Alkaline Phosphatase (38-126) U/L Lipase (23-300) U/L Urine Protein Trace H (Negative) Urine Glucose (UA) 4+ H (Negative) 05/25/18 05/25/18 Range/Units 02:02 06:06 VBG pH (7.31-7.41) Sodium (137-145) mmol/L Chloride (98-107) mmol/L BUN (9-20) mg/dL Creatinine (0.66-1.25) mg/dL Glucose (74-99) mg/dL POC Glucose (mg/dL) 404 H 280 H (75-99) mg/dL AST (17-59) U/L ALT (21-72) U/L Alkaline Phosphatase (38-126) U/L Lipase (23-300) U/L Urine Protein (Negative) Urine Glucose (UA) (Negative) Thrombosis Risk Factor Assmnt - Choose All That Apply Any of the Below Risk Factors Present?: Yes Each Factor Represents 1 point: Abnormal pulmonary function (COPD), Age 41-60 years Thrombosis Risk Factor Assessment Total Risk Factor Score: 2 Thrombosis Risk Factor Assessment Level: Low Risk Assessment and Plan (1) Hypotension Current Visit: Yes Status: Acute Code(s): I95.9 - HYPOTENSION, UNSPECIFIED SNOMED Code(s): 12512348 (2) COPD (chronic obstructive pulmonary disease) Current Visit: No Status: Acute Code(s): J44.9 - CHRONIC OBSTRUCTIVE PULMONARY DISEASE, UNSPECIFIED SNOMED Code(s): 76614083 (3) Chronic pancreatitis Current Visit: No Status: Acute Code(s): K86.1 - OTHER CHRONIC PANCREATITIS SNOMED Code(s): 911273403 (4) Congestive heart failure Current Visit: No Status: Acute Code(s): I50.9 - HEART FAILURE, UNSPECIFIED SNOMED Code(s): 53308264 (5) Diabetes Current Visit: No Status: Acute Code(s): E11.9 - TYPE 2 DIABETES MELLITUS WITHOUT COMPLICATIONS SNOMED Code(s): 80433924 (6) Diabetic neuropathy Current Visit: No Status: Acute Code(s): E11.40 - TYPE 2 DIABETES MELLITUS WITH DIABETIC NEUROPATHY, UNSP SNOMED Code(s): 204442083 (7) NICM (nonischemic cardiomyopathy) Current Visit: No Status: Acute Code(s): I42.9 - CARDIOMYOPATHY, UNSPECIFIED SNOMED Code(s): 78670579 Plan: The patient significant poor prognosis. We will she is to sign out AGAINST MEDICAL ADVICE due to the fact that he does not want to give to the halfway. The family will compensate and realign resources to have extra Nursing. Prognosis is guarded secondary to his multiple comorbidities. We'll discharge as requested. Time with Patient: Greater than 30
--- NOTE | 2018-05-25 08:22 | P.DS ---
Providers Date of admission: 05/24/18 19:14 Attending physician: Yusuf Lind Consults: 05/24/18 22:09 Consult Physician Routine Consulting Provider: Jennie Feng Consult Reason/Comments: hypotension Do you want consulting provider notified?: Yes, Notify in am Primary care physician: Yusuf Lind - Discharge Diagnosis(es) (1) Hypotension Current Visit: Yes Status: Acute (2) COPD (chronic obstructive pulmonary disease) Current Visit: No Status: Acute (3) Chronic pancreatitis Current Visit: No Status: Acute (4) Congestive heart failure Current Visit: No Status: Acute (5) Diabetes Current Visit: No Status: Acute (6) Diabetic neuropathy Current Visit: No Status: Acute (7) NICM (nonischemic cardiomyopathy) Current Visit: No Status: Acute Hospital Course: The patient is 57-year-old white male essentially admitted for significant problems related to COPD, CHF and poorly controlled diabetes. The patient essentially came in with dehydration to the fact that he was not taking appropriate by mouth intake because of perceived edema if he did. Blood sugar and elevated. He is now stabilized and due to his multiple consultations, I suggested ECF, which the patient patient is presently refusing. The patient has now decided to leave AGAINST MEDICAL ADVICE noted discharged in guarded condition and follow-up with me as necessary in Patient Condition at Discharge: Serious Plan - Discharge Summary Discharge Rx Participant: Yes New Discharge Prescriptions: Continue Pregabalin [Lyrica] 150 mg PO TID Insulin Lispro [humaLOG Kwikpen] See Protocol SQ ACHS Albuterol Nebulized [Ventolin Nebulized] 2.5 mg INHALATION RT-QID PRN nebu PRN Reason: Shortness Of Breath Or Wheezing Zolpidem [Ambien] 10 mg PO HS PRN PRN Reason: Insomnia Docusate [Colace] 100 mg PO DAILY Cetirizine HCl [Zyrtec] 10 mg PO DAILY Famotidine 20 mg PO BID Ergocalciferol (Vitamin D2) [Vitamin D2] 50,000 unit PO Q7D Metoprolol Succinate (ER) [Toprol XL] 25 mg PO DAILY #30 tab.er.24h Saline Nasal Gel [[place] Nasal Gel] 1 applic TOPICAL Q4HR PRN gm PRN Reason: Dry Nasal Passages Sacubitril/Valsartan [Entresto 24 mg-26 mg Tablet] 1 tab PO BID Ipratropium-Albuterol Nebulize [Duoneb 0.5 mg-3 mg/3 ml Soln] 3 ml INHALATION RT-QID ampul.neb Isosorbide Mononitrate ER [Imdur] 30 mg PO DAILY #30 tab.er.24h Nicotine 21Mg/24Hr Patch [Habitrol] 1 patch TRANSDERM DAILY #30 patch Spironolactone [Aldactone] 25 mg PO DAILY #30 tab HYDROcodone/APAP 10-325MG [[place] 10-325] 1 tab PO Q4HR PRN #120 tab PRN Reason: Pain Insulin Degludec [Tresiba Flextouch U-200] 32 unit SQ DAILY #3 insuln.pen Torsemide [Demadex] 20 mg PO BID #60 tablet INSULIN LISPRO (humaLOG) [humaLOG] 10 unit SQ AC-TID Metolazone [Zaroxolyn] 5 mg PO DAILY Discharge Medication List Insulin Lispro [humaLOG Kwikpen] See Protocol SQ ACHS 03/22/18 [History] Pregabalin [Lyrica] 150 mg PO TID 03/22/18 [History] Albuterol Nebulized [Ventolin Nebulized] 2.5 mg INHALATION RT-QID PRN nebu [Rx] Cetirizine HCl [Zyrtec] 10 mg PO DAILY 05/04/18 [History] Docusate [Colace] 100 mg PO DAILY 05/04/18 [History] Ergocalciferol (Vitamin D2) [Vitamin D2] 50,000 unit PO Q7D 05/04/18 [History] Famotidine 20 mg PO BID 05/04/18 [History] Zolpidem [Ambien] 10 mg PO HS PRN 05/04/18 [History] Metoprolol Succinate (ER) [Toprol XL] 25 mg PO DAILY #30 tab.er.24h 05/09/18 [Rx ] Saline Nasal Gel [[place] Nasal Gel] 1 applic TOPICAL Q4HR PRN gm 05/09/18 [Rx] Sacubitril/Valsartan [Entresto 24 mg-26 mg Tablet] 1 tab PO BID 05/14/18 [ History] HYDROcodone/APAP 10-325MG [[place] 10-325] 1 tab PO Q4HR PRN #120 tab 05/18/18 [Rx ] Insulin Degludec [Tresiba Flextouch U-200] 32 unit SQ DAILY #3 insuln.pen [Rx] Ipratropium-Albuterol Nebulize [Duoneb 0.5 mg-3 mg/3 ml Soln] 3 ml INHALATION RT -QID ampul.neb 05/18/18 [Rx] Isosorbide Mononitrate ER [Imdur] 30 mg PO DAILY #30 tab.er.24h 05/18/18 [Rx] Nicotine 21Mg/24Hr Patch [Habitrol] 1 patch TRANSDERM DAILY #30 patch 05/18/18 [ Rx] Spironolactone [Aldactone] 25 mg PO DAILY #30 tab 05/18/18 [Rx] Torsemide [Demadex] 20 mg PO BID #60 tablet 05/18/18 [Rx] INSULIN LISPRO (humaLOG) [humaLOG] 10 unit SQ AC-TID 05/24/18 [History] Metolazone [Zaroxolyn] 5 mg PO DAILY 05/24/18 [History] Follow up Appointment(s)/Referral(s): Yusuf Lind MD [Primary Care Provider] - 1-2 days Patient Instructions/Handouts: Diabetic Hyperglycemia (ED) Discharge Disposition: Left Against Medical Advice
[2018-05-25] MEDS ORDERED: DOCUSATE 100 MG CAP PO SCH (09:00)
[2018-05-25] MEDS ORDERED: LORATADINE 10 MG TAB PO SCH (09:00)
[2018-05-25] MEDS ORDERED: FAMOTIDINE 20 MG TAB PO SCH (09:00)
[2018-05-25] MEDS ORDERED: NICOTINE 21MG/24HR PATCH TRANSDERM SCH (09:00)
[2018-05-25] MEDS ORDERED: ENOXAPARIN 40 MG/0.4 ML SYRINGE SQ SCH (09:00)
[2018-05-25] MEDS: PREGABALIN 75 MG CAP PO SCH (09:32)
== END 2018-05-25 10:35 | disposition left against medical advice (07) | DRG 315 ==
LOC: EC 12:11 → 3SCARD 19:14
PROVIDERS: ADMIT Family Medicine; ATTEND Family Medicine
DX: I95.9 Hypotension, unspecified (principal); J96.11 Chronic respiratory failure with hypoxia; I42.9 Cardiomyopathy, unspecified; K90.9 Intestinal malabsorption, unspecified; K86.1 Other chronic pancreatitis; E11.65 Type 2 diabetes mellitus with hyperglycemia; I11.0 Hypertensive heart disease with heart failure; I50.9 Heart failure, unspecified; K86.89 Other specified diseases of pancreas; E11.40 Type 2 diabetes mellitus with diabetic neuropathy, unspecified; E86.0 Dehydration; J44.9 Chronic obstructive pulmonary disease, unspecified; E78.5 Hyperlipidemia, unspecified; K21.9 Gastro-esophageal reflux disease without esophagitis; F10.20 Alcohol dependence, uncomplicated; M19.90 Unspecified osteoarthritis, unspecified site; Z79.4 Long term (current) use of insulin; Z79.899 Other long term (current) drug therapy; Z87.891 Personal history of nicotine dependence; Z87.01 Personal history of pneumonia (recurrent); Z95.810 Presence of automatic (implantable) cardiac defibrillator; Z87.19 Personal history of other diseases of the digestive system; Z88.5 Allergy status to narcotic agent; Z88.8 Allergy status to other drugs, medicaments and biological substances; Z91.018 Allergy to other foods; Z83.3 Family history of diabetes mellitus; Z82.49 Family history of ischemic heart disease and other diseases of the circulatory system; Z82.5 Family history of asthma and other chronic lower respiratory diseases
CPT/HCPCS: 36415; 71046; 76705; 80053; 81003; 82009; 82150; 82803; 83690; 83735; 84100; 85025; 87040; 96361; 96374; 96375; 99285

== ENCOUNTER → 2018-07-05 | Outpatient (CLI) | payer MEDICARE, OTHER ==
--- NOTE | 2018-07-05 14:00 | XR ---
EXAMINATION TYPE: XR shoulder complete LT DATE OF EXAM: 07/05/2018 CLINICAL HISTORY: Pain. TECHNIQUE: Three views of the left shoulder are obtained. COMPARISON: None. FINDINGS: There is no acute fracture/dislocation evident in the left shoulder. Mild to moderate narr owing and inferior spurring clavicular joint is present. Glenohumeral joint is maintained. There is p artial visualization of left-sided pacemaker/defibrillator device. IMPRESSION: As above.
[2018-07-05 21:14] LABS: Hemoglobin A1C 13.8 % (4.0-6.0)
== END | disposition home or self-care (01) ==
LOC: LABWHC1 12:56
PROVIDERS: ATTEND Internal Medicine
DX: M89.8X1 Other specified disorders of bone, shoulder (principal); E10.65 Type 1 diabetes mellitus with hyperglycemia; Z95.0 Presence of cardiac pacemaker
CPT/HCPCS: 36415; 83036

== ENCOUNTER 2018-07-18 12:28 | Emergency (ER) | payer MEDICARE, OTHER ==
[2018-07-18 12:33] VITALS: RESP 18; TEMP 97.7
[2018-07-18 13:38] LABS: Appearance,Urine Clear (Clear); Bacteria,Urine Rare /hpf; Bilirubin,Urine Negative (Negative); Blood,Urine Negative (Negative); Color,Urine Yellow; Glucose,Urine (UA) Negative (Negative); Hyaline Casts,Urine 1 /lpf (0-2); Ketones,Urine Negative (Negative); Leukocyte Esterase,Urine Negative (Negative); Mucus,Urine Rare /hpf; Nitrite,Urine Negative (Negative); PH, Urine 5.5 (5.0-8.0); Protein,Urine 1+ (Negative); RBC,Urine 1 /hpf (0-5); Specific Gravity,Urine 1.012 (1.001-1.035); Sperm,Urine Rare /hpf; Urobilinogen,Urine <2.0 mg/dL (<2.0)
--- NOTE | 2018-07-18 13:53 | ED ---
Male Urogenital HPI - General Chief complaint: Urogenital Stated complaint: Hurts to urinate Time Seen by Provider: 07/18/18 12:35 Source: patient, RN notes reviewed, old records reviewed Mode of arrival: ambulatory Limitations: no limitations - History of Present Illness Initial comments: This is a 57-year-old male the ER for evaluation presents with burning with urination. Suprapubic abdominal discomfort. No blood. Patient has no prior history of UTI. Please of baby UTI currently. No known history of prostate issues. Patient has no fevers. No nausea vomiting. No recent change in medications. Urination is in painful 3 days. He does have history of diabetes MD Complaint: dysuria -: days(s) (3) Location: penis Radiation: none Severity: mild Severity scale (1-10): 3 Quality: aching, burning, sharp Consistency: constant Improves with: none Worsens with: urination Reports: denies other symptoms - Related Data Home Medications Medication Instructions Recorded Confirmed Pregabalin [Lyrica] 150 mg PO TID 03/22/18 07/18/18 Docusate [Colace] 100 mg PO DAILY 05/04/18 07/18/18 Famotidine 20 mg PO BID 05/04/18 07/18/18 Zolpidem [Ambien] 10 mg PO HS PRN 05/04/18 07/18/18 Sacubitril/Valsartan [Entresto 24 1 tab PO BID 05/14/18 07/18/18 mg-26 mg Tablet] Gabapentin [Neurontin] 400 mg PO BID 07/18/18 07/18/18 Lisinopril [Zestril] 2.5 mg PO BID 07/18/18 07/18/18 Spironolactone [Aldactone] 25 mg PO BID 07/18/18 07/18/18 Previous Rx's Medication Instructions Recorded Metoprolol Succinate (ER) [Toprol 25 mg PO DAILY #30 tab.er.24h 05/09/18 XL] HYDROcodone/APAP 10-325MG [[place] 1 tab PO Q4HR PRN #120 tab 05/18/18 10-325] Isosorbide Mononitrate ER [Imdur] 30 mg PO DAILY #30 tab.er.24h 05/18/18 Torsemide [Demadex] 20 mg PO BID #60 tablet 05/18/18 Sulfamethox-Tmp 800-160Mg [Bactrim 1 tab PO Q12HR #20 tab 07/18/18 DS 800-160 mg] Allergies Allergy/AdvReac Type Severity Reaction Status Date / Time meperidine HCl [From Demerol] Allergy Severe Rapid Verified 07/18/18 13:45 Heart Rate/VOMITING mayonnaise Allergy Nausea & Verified 07/18/18 13:45 Vomiting & Diarrhea ibuprofen [From Motrin] AdvReac Vomiting Verified 07/18/18 13:45 Review of Systems ROS Statement: Those systems with pertinent positive or pertinent negative responses have been documented in the HPI. ROS Other: All systems not noted in ROS Statement are negative. Past Medical History Past Medical History: Heart Failure, COPD, Diabetes Mellitus, GERD/Reflux, Pneumonia, Renal Disease Additional Past Medical History / Comment(s): Severe COPD, chronic hypoxic respiratory failure, cardiomyopathy, AICD placement, chronic alcoholism, chronic pancreatitis, diabetes mellitus, hypertension, hyperlipidemia, chronic smoker, chronic pancreatic insufficiency with malabsorption, pancreatic pseudocyst, history of degenerative arthritis, history of bone infection, history of perforated left tympanic membranes History of Any Multi-Drug Resistant Organisms: None Reported Past Surgical History: AICD Past Anesthesia/Blood Transfusion Reactions: No Reported Reaction Type of Cardiac Device: AICD Device Placement Date:: UNKNOWN Past Psychological History: No Psychological Hx Reported Smoking Status: Former smoker Past Alcohol Use History: None Reported Past Drug Use History: None Reported - Past Family History Father Family Medical History: Congestive Heart Failure (CHF), COPD, Diabetes Mellitus Additional Family Medical History / Comment(s): mrsa, gbs, asbestoes exposure/lings Mother Family Medical History: Diabetes Mellitus, Hypertension General Exam Limitations: no limitations General appearance: alert, in no apparent distress Head exam: Present: atraumatic, normocephalic, normal inspection Eye exam: Present: normal appearance, PERRL, EOMI. Absent: scleral icterus, conjunctival injection, periorbital swelling ENT exam: Present: normal exam, mucous membranes moist Neck exam: Present: normal inspection. Absent: tenderness, meningismus, lymphadenopathy Respiratory exam: Present: normal lung sounds bilaterally. Absent: respiratory distress, wheezes, rales, rhonchi, stridor Cardiovascular Exam: Present: regular rate, normal rhythm, normal heart sounds. Absent: systolic murmur, diastolic murmur, rubs, gallop, clicks GI/Abdominal exam: Present: soft, normal bowel sounds. Absent: distended, tenderness, guarding, rebound, rigid Extremities exam: Present: normal inspection, full ROM, normal capillary refill. Absent: tenderness, pedal edema, joint swelling, calf tenderness Back exam: Present: normal inspection Neurological exam: Present: alert, oriented X3, CN II-XII intact Psychiatric exam: Present: normal affect, normal mood Skin exam: Present: warm, dry, intact, normal color. Absent: rash Course Vital Signs 07/18/18 12:31 Temperature 97.7 F Pulse Rate 53 L Respiratory 18 Rate Blood Pressure 113/63 O2 Sat by Pulse 100 Oximetry - Reevaluation(s) Reevaluation #1: 07/18/18 13:52 Medical record reviewed Reevaluation #2: 07/18/18 13:52 Patient without abdominal pain or tenderness Medical Decision Making - Medical Decision Making This 57 male the ER for evaluation of positive urinary tract infection. Patient can be discharged home - Lab Data Lab Results 07/18/18 Range/Units 13:09 Urine Color Yellow Urine Appearance Clear (Clear) Urine pH 5.5 (5.0-8.0) Ur Specific [place] 1.012 (1.001-1.035) Urine Protein 1+ H (Negative) Urine Glucose (UA) Negative (Negative) Urine Ketones Negative (Negative) Urine Blood Negative (Negative) Urine Nitrite Negative (Negative) Urine Bilirubin Negative (Negative) Urine Urobilinogen <2.0 (<2.0) mg/dL Ur Leukocyte Esterase Negative (Negative) Urine RBC 1 (0-5) /hpf Urine WBC <1 (0-5) /hpf Urine Bacteria Rare H (None) /hpf Hyaline Casts 1 (0-2) /lpf Urine Mucus Rare H (None) /hpf Urine Sperm Rare (None) /hpf Disposition Clinical Impression: UTI (urinary tract infection) Disposition: HOME SELF-CARE Condition: Good Instructions (If sedation given, give patient instructions): Urinary Tract Infection in Men (ED) Prescriptions: Sulfamethox-Tmp 800-160Mg [Bactrim DS 800-160 mg] 1 tab PO Q12HR #20 tab Is patient prescribed a controlled substance at d/c from ED?: No Referrals: Yusuf Lind MD [Primary Care Provider] - 1-2 days
[2018-07-18] MEDS ORDERED: SULFAMETHOX-TMP 800-160MG 1 EACH TAB PO STA (14:23)
[2018-07-18] MEDS ORDERED: PHENAZOPYRIDINE 200 MG TAB PO STA (14:24)
[2018-07-18 15:20] VITALS: BP 90/69; PULSE 46
== END 2018-07-18 15:18 | disposition home or self-care (01) ==
LOC: EC 12:28
DX: N39.0 Urinary tract infection, site not specified (principal); I50.9 Heart failure, unspecified; K21.9 Gastro-esophageal reflux disease without esophagitis; Z87.891 Personal history of nicotine dependence; Z88.5 Allergy status to narcotic agent; Z88.6 Allergy status to analgesic agent; Z91.018 Allergy to other foods; Z79.899 Other long term (current) drug therapy; Z95.810 Presence of automatic (implantable) cardiac defibrillator
CPT/HCPCS: 81001; 99283

== ENCOUNTER → 2018-07-21 | Outpatient (CLI) | payer MEDICARE, OTHER ==
--- NOTE | 2018-07-21 15:50 | US ---
EXAMINATION TYPE: US abdomen complete DATE OF EXAM: 07/21/2018 COMPARISON: US 2019 CLINICAL HISTORY: K86.1 OTHER CHR PANCREATITIS. Pancreatitis, patient having SOB so he was sitting up right during exam EXAM MEASUREMENTS: Liver Length: 16.5 cm Gallbladder Wall: 0.2 cm CBD: 0.5 cm Spleen: 8.6 cm Right Kidney: 9.2 x 5.4 x 5.0 cm Left Kidney: 9.7 x 5.9 x 5.8 cm Pancreas: body and tail obscured by overlying midline bowel gas, heavily calcified with largest calc ification measuring 1.3cm, 4.2 x 3.6 x 3.5cm cystic area Liver: wnl Gallbladder: 0.8cm shadowing focus Evidence for sonographic Victor's sign: no CBD: wnl Spleen: visualized portions wnl, limited by overlying bowel gas Right Kidney: visualized portions wnl, inferior pole partially obscured by overlying bowel gas Left Kidney: wnl Upper IVC: wnl Abd Aorta: visualized portions wnl, mid portion obscured by overlying bowel gas IMPRESSION: 1. Calcifications appear to be within the pancreas. There appears be a large calcification posterior shadowing measuring 1.3 cm in size. Findings could be related to chronic pancreatitis. 2. Large cyst within the pancreas measuring approximately 4 cm in diameter. Cystadenoma and cystadeno carcinoma should be considered. Additional workup with contrast CT is recommended. A Long level critical message alert has been initiated for Yusuf Lind MD via the [employer] Critical Results System on 07/21/2018 3:38 PM. This message alert has been sent to Yusuf Lind MD via the preferences provided by the clinician for the receipt of Radiology Critical Findings. Message ID [id number].
== END | disposition home or self-care (01) ==
LOC: RADUSWWP 10:09
PROVIDERS: ATTEND Family Medicine
DX: K86.2 Cyst of pancreas (principal); K86.1 Other chronic pancreatitis; Z88.5 Allergy status to narcotic agent; Z88.6 Allergy status to analgesic agent
CPT/HCPCS: 76700

== ENCOUNTER → 2018-08-09 | Outpatient (CLI) | payer MEDICARE, OTHER ==
[2018-08-09 17:36] LABS: Anisocytosis Slight; Basophils % (A) 1 %; Eosinophils # (A) 0.2 k/uL (0-0.7); Eosinophils % (A) 4 %; HGB 10.1 gm/dL (13.0-17.5); Hypochromasia Slight; Lymphocytes % (A) 37 %; MCHC 31.7 g/dL (31.0-37.0); MCV 91.5 fL (80.0-100.0); Mean Platelet Volume 7.8; Monocytes # (A) 0.4 k/uL (0-1.0); Monocytes % (A) 7 %; Neutrophils # (A) 2.6 k/uL (1.3-7.7); Neutrophils % (A) 49 %; Platelet Count 254 k/uL (150-450); Poikilocytosis Slight; RDW 16.6 % (11.5-15.5); WBC 5.4 k/uL (3.8-10.6)
[2018-08-09 17:43] LABS: Appearance,Urine Clear (Clear); Bilirubin,Urine Negative (Negative); Blood,Urine Negative (Negative); Color,Urine Yellow; Glucose,Urine (UA) Trace (Negative); Ketones,Urine Negative (Negative); Leukocyte Esterase,Urine Negative (Negative); Nitrite,Urine Negative (Negative); PH, Urine 5.5 (5.0-8.0); Protein,Urine Trace (Negative); Specific Gravity,Urine 1.011 (1.001-1.035); Urobilinogen,Urine <2.0 mg/dL (<2.0)
[2018-08-10 01:36] LABS: Albumin 4.4 g/dL (3.80-4.90); Albumin/Globulin Ratio 2.75 (1.60-3.17); Anion Gap 9.3 mmol/L (4.00-12.00); Calcium 8.7 mg/dL (8.7-10.3); Carbon Dioxide 22.7 mmol/L (21.6-31.8); Globulin 1.6 g/dL (1.6-3.3); Potassium 4.4 mmol/L (3.5-5.5); Total Bilirubin 0.4 mg/dL (0.3-1.2)
== END | disposition home or self-care (01) ==
LOC: LABWHC1 16:54
PROVIDERS: ATTEND Internal Medicine Critical Care Medicine
DX: N28.9 Disorder of kidney and ureter, unspecified (principal)
CPT/HCPCS: 36415; 80053; 81003; 85025

== ENCOUNTER → 2018-11-14 | Outpatient (CLI) | payer MEDICARE, OTHER ==
[2018-11-14 12:26] LABS: Basophils % (A) 1 %; Eosinophils # (A) 0.1 k/uL (0-0.7); Eosinophils % (A) 2 %; HCT 39.3 % (39.0-53.0); HGB 12.5 gm/dL (13.0-17.5); Lymphocytes # (A) 1.4 k/uL (1.0-4.8); Lymphocytes % (A) 24 %; MCH 29.7 pg (25.0-35.0); MCHC 31.7 g/dL (31.0-37.0); MCV 93.6 fL (80.0-100.0); Mean Platelet Volume 7.4; Monocytes # (A) 0.5 k/uL (0-1.0); Monocytes % (A) 8 %; Neutrophils # (A) 3.7 k/uL (1.3-7.7); Neutrophils % (A) 63 %; Platelet Count 221 k/uL (150-450); RDW 14.1 % (11.5-15.5); WBC 5.9 k/uL (3.8-10.6)
[2018-11-14 18:27] LABS: African American GFR (CKD) 75.7 (60.0-200.0); Albumin 4.2 g/dL (3.80-4.90); Anion Gap 6.6 mmol/L (4.00-12.00); Calcium 8.7 mg/dL (8.7-10.3); Carbon Dioxide 26.4 mmol/L (21.6-31.8); Globulin 1.4 g/dL (1.6-3.3); Non-African American GFR(CKD) 65.3 (60.0-200.0); Potassium 5.1 mmol/L (3.5-5.5); Total Bilirubin 0.3 mg/dL (0.2-1.2); Total Protein 5.6 g/dL (6.2-8.2)
== END | disposition home or self-care (01) ==
LOC: LABWHC1 11:45
PROVIDERS: ATTEND Internal Medicine Critical Care Medicine
DX: I50.9 Heart failure, unspecified (principal)
CPT/HCPCS: 36415; 80053; 85025

== ENCOUNTER 2018-11-16 07:24 | Inpatient (IN) | payer MEDICARE, OTHER ==
[2018-11-16] MEDS ORDERED: FUROSEMIDE 10 MG/ML 4 ML VIAL IV STA (07:39)
[2018-11-16] MEDS ORDERED: methylPREDNISolone SOD SUCCI 125 MG/2 ML VIAL IV STA (07:39)
[2018-11-16] MEDS ORDERED: IPRATROPIUM-ALBUTEROL 3 ML NEB INHALATION STA (07:39)
[2018-11-16] MEDS ORDERED: NITROGLYCERIN SL TABS 0.4 MG TAB SUBLINGUAL STA (07:40)
--- NOTE | 2018-11-16 07:51 | ED ---
General Adult HPI - General Chief complaint: Shortness of Breath Stated complaint: PIA Time Seen by Provider: 11/16/18 07:30 Source: patient, RN notes reviewed Mode of arrival: wheelchair Limitations: no limitations - History of Present Illness Initial comments: Patient is a pleasant 58-year-old male presenting to the emergency department with difficulty breathing. Onset of symptoms was within the past day. Rare cough. Patient does have some mild chest discomfort. Patient also has leg swelling. Patient does have a history of similar symptoms previously associated with both CHF and COPD. No fevers. Symptoms have progressively worsened. - Related Data Home Medications Medication Instructions Recorded Confirmed Pregabalin [Lyrica] 150 mg PO TID 03/22/18 07/18/18 Docusate [Colace] 100 mg PO DAILY 05/04/18 07/18/18 Famotidine 20 mg PO BID 05/04/18 07/18/18 Zolpidem [Ambien] 10 mg PO HS PRN 05/04/18 07/18/18 Sacubitril/Valsartan [Entresto 24 1 tab PO BID 05/14/18 07/18/18 mg-26 mg Tablet] Gabapentin [Neurontin] 400 mg PO BID 07/18/18 07/18/18 Lisinopril [Zestril] 2.5 mg PO BID 07/18/18 07/18/18 Spironolactone [Aldactone] 25 mg PO BID 07/18/18 07/18/18 Previous Rx's Medication Instructions Recorded Metoprolol Succinate (ER) [Toprol 25 mg PO DAILY #30 tab.er.24h 05/09/18 XL] HYDROcodone/APAP 10-325MG [[place] 1 tab PO Q4HR PRN #120 tab 05/18/18 10-325] Isosorbide Mononitrate ER [Imdur] 30 mg PO DAILY #30 tab.er.24h 05/18/18 Torsemide [Demadex] 20 mg PO BID #60 tablet 05/18/18 Sulfamethox-Tmp 800-160Mg [Bactrim 1 tab PO Q12HR #20 tab 07/18/18 DS 800-160 mg] Allergies Allergy/AdvReac Type Severity Reaction Status Date / Time meperidine HCl [From Demerol] Allergy Severe Rapid Verified 07/18/18 13:45 Heart Rate/VOMITING mayonnaise Allergy Nausea & Verified 07/18/18 13:45 Vomiting & Diarrhea ibuprofen [From Motrin] AdvReac Vomiting Verified 07/18/18 13:45 Review of Systems ROS Statement: Those systems with pertinent positive or pertinent negative responses have been documented in the HPI. ROS Other: All systems not noted in ROS Statement are negative. Constitutional: Denies: fever Eyes: Denies: eye pain ENT: Denies: ear pain Respiratory: Reports: cough, dyspnea Cardiovascular: Reports: chest pain Endocrine: Reports: fatigue Gastrointestinal: Denies: abdominal pain Genitourinary: Denies: dysuria Musculoskeletal: Denies: back pain Skin: Denies: rash Neurological: Denies: weakness Past Medical History Past Medical History: Heart Failure, COPD, Diabetes Mellitus, GERD/Reflux, Pneumonia, Renal Disease Additional Past Medical History / Comment(s): Severe COPD, chronic hypoxic respiratory failure, cardiomyopathy, AICD placement, chronic alcoholism, chronic pancreatitis, diabetes mellitus, hypertension, hyperlipidemia, chronic smoker, chronic pancreatic insufficiency with malabsorption, pancreatic pseudocyst, history of degenerative arthritis, history of bone infection, history of perforated left tympanic membranes History of Any Multi-Drug Resistant Organisms: None Reported Past Surgical History: AICD Past Anesthesia/Blood Transfusion Reactions: No Reported Reaction Type of Cardiac Device: AICD Device Placement Date:: UNKNOWN Past Psychological History: No Psychological Hx Reported Smoking Status: Former smoker Past Alcohol Use History: None Reported Past Drug Use History: None Reported - Past Family History Father Family Medical History: Congestive Heart Failure (CHF), COPD, Diabetes Mellitus Additional Family Medical History / Comment(s): mrsa, gbs, asbestoes exposure/lings Mother Family Medical History: Diabetes Mellitus, Hypertension General Exam Limitations: no limitations General appearance: alert, in no apparent distress Head exam: Present: atraumatic Eye exam: Present: normal appearance Neck exam: Present: normal inspection Respiratory exam: Present: wheezes, decreased breath sounds Cardiovascular Exam: Present: tachycardia Expanded Peripheral pulses: 2+: Radial (R), Radial (L), Dorsalis Pedis (R), Dorsalis Pedis (L) GI/Abdominal exam: Present: soft. Absent: tenderness Extremities exam: Present: pedal edema. Absent: calf tenderness Neurological exam: Present: alert Psychiatric exam: Present: normal affect, normal mood Skin exam: Present: normal color Course Vital Signs 11/16/18 11/16/18 11/16/18 07:27 08:00 08:10 Temperature 97.4 F L Pulse Rate 107 H 109 H 106 H Respiratory 18 Rate Blood Pressure 127/85 O2 Sat by Pulse 99 Oximetry 11/16/18 11/16/18 08:30 09:00 Temperature Pulse Rate 107 H Respiratory 20 19 Rate Blood Pressure 135/88 124/83 O2 Sat by Pulse 99 99 Oximetry EKG Findings - EKG Comments: EKG Findings:: Sinus tachycardia 105. PVC is present. IL 160. QRS 122. QT 360. QTC 475. Left axis. Septal Q waves. T-wave inversion in V6. T-wave inversion in aVL. Left anterior fascicular block. Medical Decision Making - Medical Decision Making Patient reevaluated and somewhat improved. No respiratory distress however patient is still using some accessory muscle use. Patient and family updated on results and plan. Dr. Lind has been paged for admission of his patient. - Lab Data Result diagrams: 11/16/18 07:52 11/16/18 07:52 Lab Results 11/16/18 11/16/18 11/16/18 Range/Units 07:52 07:52 07:52 WBC 7.3 (3.8-10.6) k/uL RBC 4.48 (4.30-5.90) m/uL Hgb 13.5 (13.0-17.5) gm/dL Hct 41.5 (39.0-53.0) % MCV 92.8 (80.0-100.0) fL MCH 30.1 (25.0-35.0) pg MCHC 32.5 (31.0-37.0) g/dL RDW 15.1 (11.5-15.5) % Plt Count 232 (150-450) k/uL Neutrophils % 66 % Lymphocytes % 22 % Monocytes % 8 % Eosinophils % 2 % Basophils % 1 % Neutrophils # 4.8 (1.3-7.7) k/uL Lymphocytes # 1.6 (1.0-4.8) k/uL Monocytes # 0.6 (0-1.0) k/uL Eosinophils # 0.1 (0-0.7) k/uL Basophils # 0.0 (0-0.2) k/uL PT 11.4 (9.0-12.0) sec INR 1.1 (<1.2) APTT 27.2 (22.0-30.0) sec Sodium 129 L (137-145) mmol/L Potassium 5.5 H (3.5-5.1) mmol/L Chloride 96 L (98-107) mmol/L Carbon Dioxide 23 (22-30) mmol/L Anion Gap 10 mmol/L BUN 16 (9-20) mg/dL Creatinine 0.96 (0.66-1.25) mg/dL Est GFR (CKD-EPI)AfAm >90 (>60 ml/min/1.73 sqM) Est GFR (CKD-EPI)NonAf 86 (>60 ml/min/1.73 sqM) Glucose 129 H (74-99) mg/dL Calcium 8.9 (8.4-10.2) mg/dL Total Bilirubin 0.6 (0.2-1.3) mg/dL AST 113 H (17-59) U/L ALT 57 (21-72) U/L Alkaline Phosphatase 142 H (38-126) U/L Troponin I (0.000-0.034) ng/mL NT-Pro-B Natriuret Pep pg/mL Total Protein 6.6 (6.3-8.2) g/dL Albumin 4.3 (3.5-5.0) g/dL 11/16/18 11/16/18 Range/Units 07:52 07:52 WBC (3.8-10.6) k/uL RBC (4.30-5.90) m/uL Hgb (13.0-17.5) gm/dL Hct (39.0-53.0) % MCV (80.0-100.0) fL MCH (25.0-35.0) pg MCHC (31.0-37.0) g/dL RDW (11.5-15.5) % Plt Count (150-450) k/uL Neutrophils % % Lymphocytes % % Monocytes % % Eosinophils % % Basophils % % Neutrophils # (1.3-7.7) k/uL Lymphocytes # (1.0-4.8) k/uL Monocytes # (0-1.0) k/uL Eosinophils # (0-0.7) k/uL Basophils # (0-0.2) k/uL PT (9.0-12.0) sec INR (<1.2) APTT (22.0-30.0) sec Sodium (137-145) mmol/L Potassium (3.5-5.1) mmol/L Chloride (98-107) mmol/L Carbon Dioxide (22-30) mmol/L Anion Gap mmol/L BUN (9-20) mg/dL Creatinine (0.66-1.25) mg/dL Est GFR (CKD-EPI)AfAm (>60 ml/min/1.73 sqM) Est GFR (CKD-EPI)NonAf (>60 ml/min/1.73 sqM) Glucose (74-99) mg/dL Calcium (8.4-10.2) mg/dL Total Bilirubin (0.2-1.3) mg/dL AST (17-59) U/L ALT (21-72) U/L Alkaline Phosphatase (38-126) U/L Troponin I 0.044 H* (0.000-0.034) ng/mL NT-Pro-B Natriuret Pep 07964 pg/mL Total Protein (6.3-8.2) g/dL Albumin (3.5-5.0) g/dL - Radiology Data Radiology results: image reviewed (Chest x-ray shows cardiomegaly and some interstitial changes, more so with the basis.) Disposition Clinical Impression: COPD (chronic obstructive pulmonary disease), Congestive heart failure Disposition: ADMITTED IP TO THIS HOSP Is patient prescribed a controlled substance at d/c from ED?: No Referrals: Yusuf Lind MD [Primary Care Provider] - 1-2 days Decision Time: 09:04
[2018-11-16 08:08] LABS: Basophils % (A) 1 %; Eosinophils # (A) 0.1 k/uL (0-0.7); Eosinophils % (A) 2 %; HCT 41.5 % (39.0-53.0); HGB 13.5 gm/dL (13.0-17.5); Lymphocytes # (A) 1.6 k/uL (1.0-4.8); Lymphocytes % (A) 22 %; MCH 30.1 pg (25.0-35.0); MCHC 32.5 g/dL (31.0-37.0); MCV 92.8 fL (80.0-100.0); Mean Platelet Volume 7.2; Monocytes # (A) 0.6 k/uL (0-1.0); Monocytes % (A) 8 %; Neutrophils # (A) 4.8 k/uL (1.3-7.7); Neutrophils % (A) 66 %; Platelet Count 232 k/uL (150-450); RBC 4.48 m/uL (4.30-5.90); RDW 15.1 % (11.5-15.5); WBC 7.3 k/uL (3.8-10.6)
[2018-11-16 08:11] LABS: INR 1.1 (<1.2); Partial Thromboplastin Time 27.2 sec (22.0-30.0); Prothrombin Time 11.4 sec (9.0-12.0)
[2018-11-16 08:21] LABS: ALT 57 U/L (21-72); AST 113 U/L (17-59); African American GFR (CKD) >90 (>60 ml/min/1.73 sqM); Albumin 4.3 g/dL (3.5-5.0); Alkaline Phosphatase 142 U/L (38-126); Anion Gap 10 mmol/L; Blood Urea Nitrogen 16 mg/dL (9-20); Calcium 8.9 mg/dL (8.4-10.2); Carbon Dioxide 23 mmol/L (22-30); Chloride 96 mmol/L (98-107); Glucose 129 mg/dL (74-99); Non-African American GFR(CKD) 86 (>60 ml/min/1.73 sqM); Potassium 5.5 mmol/L (3.5-5.1); Sodium 129 mmol/L (137-145); Total Bilirubin 0.6 mg/dL (0.2-1.3); Total Protein 6.6 g/dL (6.3-8.2)
--- NOTE | 2018-11-16 08:45 | XR ---
EXAMINATION TYPE: XR chest 2V DATE OF EXAM: 11/16/2018 COMPARISON: Chest x-ray May 24, 2018 HISTORY: Shortness of breath for one day. TECHNIQUE: Frontal and lateral views of the chest are obtained. FINDINGS: There is cardiomegaly with single lead pacemaker/AICD. Overlying EKG leads are seen. There is chronic parenchymal change with bibasilar opacities. No pleural effusion or pneumothorax is seen bilaterally. Osseous structures are intact. IMPRESSION: Cardiomegaly and chronic parenchymal changes with new patchy bibasilar acute infiltrate and/or atelectasis suspected. Consider progress study.
[2018-11-16] MEDS ORDERED: ASPIRIN 325 MG TAB PO STA (09:04)
[2018-11-16] MEDS ORDERED: IPRATROPIUM-ALBUTEROL 3 ML NEB INHALATION PRN (09:04)
[2018-11-16 10:33] LABS: Glucose,Whole Blood 158 mg/dL (75-99)
[2018-11-16] MEDS: IPRATROPIUM-ALBUTEROL 3 ML NEB INHALATION SCH ×3 (11:07→20:17)
[2018-11-16] MEDS ORDERED: ZOLPIDEM 10 MG TAB PO PRN (11:33)
[2018-11-16] MEDS ORDERED: NITROGLYCERIN SL TABS 0.4 MG TAB SUBLINGUAL PRN (11:33)
[2018-11-16 11:49] LABS: Glucose,Whole Blood 253 mg/dL (75-99)
[2018-11-16] MEDS: methylPREDNISolone SOD SUCCI 125 MG/2 ML VIAL IV SCH ×3 (12:33→23:35)
--- NOTE | 2018-11-16 12:33 | P.CNPUL ---
History of Present Illness Consult date: 11/16/18 Requesting physician: Yusuf Lind Reason for consult: dyspnea Chief complaint: Orthopnea, dyspnea, lower extremity swelling History of present illness: This is a 58-year-old white male patient with known history of non-ischemic cardiomyopathy, history of EtOH abuse currently in remission, chronic systolic congestive heart failure, hypertension, diabetes, COPD on home oxygen, chronic diaphragmatic paralysis, hyperlipidemia, prior AICD implantation, chronic pancreatitis, nicotine dependence ongoing. Patient presented to the emergency department this morning, on 11/16/2018 at around 7:00 in the morning, for evaluation of worsening shortness of breath, orthopnea, and lower extremity swelling, patient also admitted to having midsternal and left sided that chest discomfort, and described it as pressure in the mid sternum, ongoing, rates it 8 out of 10, with no real exacerbating factors, that has been present since last night. EKG showed sinus tachycardia with occasional PVCs, evidence of anterior infarct of undetermined age, and nonspecific T-wave inversion in V6 lead. Troponin was positive at 0.044, proB[place] 44102, CBC was unremarkable, coagulation profile was normal, serum sodium was 129, potassium is 5.5, chloride was 96, the rest of the electrolytes and renal profile within normal limits. No fever or chills, patient has a mild cough, and some mild phlegm production, but denied any fever or chills. He states he has been compliant with his medications, however she is still smoking, currently down to 8 cigarettes a day, denies drinking alcohol. Chest x-ray was completed showing cardiomegaly and chronic parenchymal changes with new patchy basilar acute infiltrate versus atelectasis. Patient has been started on IV diuretics, nebulized bronchodilators, IV steroids and we are consulted in regards to patient's COPD exacerbation Review of Systems All systems: negative Constitutional: Denies chills, Denies fever Eyes: denies blurred vision, denies pain Ears, nose, mouth and throat: Denies headache, Denies sore throat Cardiovascular: Reports chest pain, Reports leg edema, Denies shortness of breath Respiratory: Reports cough with sputum, Reports dyspnea, Reports wheezing, Denies cough Gastrointestinal: Denies abdominal pain, Denies diarrhea, Denies nausea, Denies vomiting Musculoskeletal: Denies myalgias Integumentary: Denies pruritus, Denies rash Neurological: Denies numbness, Denies weakness Psychiatric: Denies anxiety, Denies depression Endocrine: Denies fatigue, Denies weight change Past Medical History Past Medical History: Heart Failure, COPD, CVA/TIA, Diabetes Mellitus, GERD/Reflux, Hyperlipidemia, Hypertension, Osteoarthritis (OA), Pneumonia, Renal Disease Additional Past Medical History / Comment(s): Severe COPD, chronic hypoxic respiratory failure, home oxygen at 4L/NC ATC, nonishemic cardiomyopathy, AICD/pacer placement, TIA in 2018, pt denies past alcoholism, chronic pancreatitis, 3 pancreatic pseudocysts, IDDM type II, neuropathy biltaral legs/feet, chronic smoker, bilateral tinnitis occasionally, history of perforated left tympanic membranes-[facility] left ear, pt states he has been treated for L arm pain with physical therapy but still having problems and has decreased ROM, chronic generalized pain, migraines, sinusitis History of Any Multi-Drug Resistant Organisms: None Reported Past Surgical History: AICD, Pacemaker Additional Past Surgical History / Comment(s): colonoscopy, "lump" removed from left side of neck. Past Anesthesia/Blood Transfusion Reactions: No Reported Reaction Type of Cardiac Device: Permanent Pacemaker, AICD Device Placement Date:: 09/2016 Past Psychological History: No Psychological Hx Reported Additional Psychological History / Comment(s): Pt resides alone. He has a nebulizer, home oxygen and a glucometer. He states he drives. Smoking Status: Current every day smoker Past Alcohol Use History: None Reported Additional Past Alcohol Use History / Comment(s): Pt started smoking in 1968. He has quit several times over the years. Pt states in the past he would drink 6 beers a day but none for "a long time" Past Drug Use History: None Reported Additional Drug Use History / Comment(s): in the used cocaine. - Past Family History Father Family Medical History: Congestive Heart Failure (CHF), COPD, Diabetes Mellitus Additional Family Medical History / Comment(s): mrsa, asbestoes exposure/lungs Mother Family Medical History: Diabetes Mellitus, Hypertension Additional Family Medical History / Comment(s): Mother is 87yrs old. Medications and Allergies Home Medications Medication Instructions Recorded Confirmed Type Pregabalin [Lyrica] 150 mg PO TID 03/22/18 11/16/18 History Docusate [Colace] 100 mg PO DAILY 05/04/18 11/16/18 History Zolpidem [Ambien] 10 mg PO HS PRN 05/04/18 11/16/18 History Metoprolol Succinate (ER) [Toprol 25 mg PO DAILY #30 tab.er.24h 05/09/18 11/16/18 Rx XL] Sacubitril/Valsartan [Entresto 24 1 tab PO BID 05/14/18 11/16/18 History mg-26 mg Tablet] HYDROcodone/APAP 10-325MG [[place] 1 tab PO Q4HR PRN #120 tab 05/18/18 11/16/18 Rx 10-325] Isosorbide Mononitrate ER [Imdur] 30 mg PO DAILY #30 tab.er.24h 05/18/18 11/16/18 Rx Torsemide [Demadex] 20 mg PO BID #60 tablet 05/18/18 11/16/18 Rx Gabapentin [Neurontin] 400 mg PO BID 07/18/18 11/16/18 History Spironolactone [Aldactone] 25 mg PO BID 07/18/18 11/16/18 History Albuterol Nebulized [Ventolin 2.5 mg INHALATION RT-Q6H 11/16/18 11/16/18 History Nebulized] Atorvastatin [Lipitor] 20 mg PO DAILY 11/16/18 11/16/18 History Budesonide/Formoterol Fumarate 2 puff INHALATION RT-BID 11/16/18 11/16/18 History [Symbicort 160-4.5 Mcg Inhaler] Fluticasone/Vilanterol [Breo 1 puff INHALATION RT-DAILY 11/16/18 11/16/18 History Ellipta 200-25 Mcg INH] Furosemide [Lasix] 40 mg PO BID 11/16/18 11/16/18 History Insulin Degludec [Tresiba] 32 units SQ 11/16/18 History Insulin Lispro [humaLOG Kwikpen] See Protocol SQ ACHS 11/16/18 11/16/18 History Lipase/Protease/Amylase [[place] 36,000 units PO TID 11/16/18 11/16/18 History 36,000 Units Capsule] Nitroglycerin Sl Tabs [Nitrostat] 0.4 mg SUBLINGUAL Q5M PRN 11/16/18 11/16/18 History Polyethylene Glycol 3350 [Miralax] 17 gm PO DAILY 11/16/18 11/16/18 History Tamsulosin HCl [Flomax] 0.4 mg PO DAILY 11/16/18 11/16/18 History Varenicline [Chantix Continuing 1 mg PO BID 11/16/18 11/16/18 History Pack] Allergies Allergy/AdvReac Type Severity Reaction Status Date / Time meperidine HCl [From Demerol] AdvReac Severe Rapid Verified 11/16/18 09:04 Heart Rate/VOMITING ibuprofen [From Motrin] AdvReac Vomiting Verified 11/16/18 09:04 [facility] AdvReac Nausea & Verified 11/16/18 09:04 Vomiting & Diarrhea Physical Exam Vitals: Vital Signs Temp Pulse Resp BP Pulse Ox 11/16/18 11:21 106 H 11/16/18 11:10 110 H 11/16/18 09:00 107 H 19 124/83 99 11/16/18 08:30 20 135/88 99 11/16/18 08:10 106 H 11/16/18 08:00 109 H 11/16/18 07:27 97.4 F L 107 H 18 127/85 99 Intake and Output 11/15/18 11/16/18 11/16/18 22:59 06:59 14:59 Intake Total 10 Balance 10 Intake: IV 10 0.9 10 Other: Weight 55.792 kg GENERAL EXAM: Alert, pleasant, 58-year-old white male, on 4 L of oxygen and the pulse ox of 97%, comfortable in no apparent distress. HEAD: Normocephalic/atraumatic. EYES: Normal reaction of pupils, equal size. Conjunctiva pink, sclera white. NOSE: Clear with pink turbinates. THROAT: No erythema or exudates. NECK: No masses, no JVD, no thyroid enlargement, no adenopathy. CHEST: No chest wall deformity. Symmetrical expansion. LUNGS: Equal air entry with rales at bilateral bases, but no wheeze, rhonchi or dullness. CVS: Regular rate and rhythm, normal S1 and S2, no gallops, no murmurs, no rubs ABDOMEN: Soft, nontender. No hepatosplenomegaly, normal bowel sounds, no guarding or rigidity. EXTREMITIES: No clubbing, 1+ pretibial and ankle edema, no cyanosis, 2+ pulses and upper and lower extremities. MUSCULOSKELETAL: Muscle strength and tone normal. SPINE: No scoliosis or deformity SKIN: No rashes CENTRAL NERVOUS SYSTEM: Alert and oriented -3. No focal deficits, tone is normal in all 4 extremities. PSYCHIATRIC: Alert and oriented -3. Appropriate affect. Intact judgment and insight. Results - Laboratory Findings CBC and BMP: 11/16/18 07:52 11/16/18 07:52 PT/INR, D-dimer PT 11.4 sec (9.0-12.0) 11/16/18 07:52 INR 1.1 (<1.2) 11/16/18 07:52 Abnormal lab findings: Abnormal Labs 11/16/18 11/16/18 11/16/18 07:52 07:52 10:31 Sodium 129 L Potassium 5.5 H Chloride 96 L Glucose 129 H POC Glucose (mg/dL) 158 H AST 113 H Alkaline Phosphatase 142 H Troponin I 0.044 H* 11/16/18 11:48 Sodium Potassium Chloride Glucose POC Glucose (mg/dL) 253 H AST Alkaline Phosphatase Troponin I - Diagnostic Findings Chest x-ray: report reviewed, image reviewed Additional studies: EKG reviewed Assessment and Plan Plan: Assessment: #1 dyspnea, orthopnea, lower extremity swelling secondary to an acute exacerbation of chronic systolic congestive heart failure along with an acute exacerbation of chronic obstructive pulmonary disease. #2 Non-ischemic cardiomyopathy with severely impaired left ventricular systolic function with ejection fraction less than 20%, status post AICD placement. #3 Elevated troponin of 0.044, could be related to acute exacerbation of chronic systolic congestive heart failure #4 mild hyponatremia likely related to acute CHF exacerbation #5 Severe chronic obstructive pulmonary disease, oxygen dependent. #6 Chronic and ongoing tobacco dependence. #7 History of chronic alcoholism. #8 Chronic pancreatitis with history of pancreatic pseudocyst and malabsorption secondary to chronic pancreatic insufficiency. #9 Diabetes mellitus. #10 Hypertension. #11 Hyperlipidemia. #12 Degenerative arthritis. #13 Chronic renal failure, unspecified Plan: Continue IV diuretics, continue nebulized bronchodilators, and IV steroids. Cardiology has been consulted, will await their input. Accurate intake and output, daily weights, daily labs. Patient is afebrile, hemodynamically stable, is complaining of ongoing chest discomfort, EKG showed nonspecific T-wave inversion in lateral leads. We'll continue to follow and make further recommendations. I performed a history & physical examination of the patient and discussed their management with my nurse practitioner, Princess Epps. I reviewed the nurse practitioner's note and agree with the documented findings and plan of care. L brandy sounds are positive for basilar rales. The findings and the impression was discussed with the patient. I attest to the documentation by the nurse practitioner. Time with Patient: Greater than 30
[2018-11-16] MEDS: FUROSEMIDE 10 MG/ML 4 ML VIAL IV SCH ×2 (12:34→20:29)
[2018-11-16] MEDS: LIPASE 5,000/PROTEASE 17,000/AMYLASE 24,000 PO SCH ×2 (12:34→17:21)
[2018-11-16] MEDS: HYDROcodone/APAP 10-325MG 1 EACH TAB PO PRN ×2 (12:53→20:57)
[2018-11-16] MEDS ORDERED: NITROGLYCERIN OINT 1 INCH/GM PACKET TOPICAL SCH (13:00)
[2018-11-16] MEDS: INSULIN ASPART (NovoLOG) 100 UNIT/ML VIAL SQ SCH ×3 (13:01→20:28)
--- NOTE | 2018-11-16 15:04 | P.CRDCN ---
History of Present Illness Consult date: 11/16/18 Requesting physician: Yusuf Lind Consult reason: congestive heart failure Chief complaint: Shortness of breath History of present illness: This is a 58-year-old white male patient with known history of non-ischemic cardiomyopathy, history of EtOH abuse, chronic systolic congestive heart failur e, hypertension, diabetes, COPD on home oxygen, chronic diaphragmatic paralysis, hyperlipidemia, prior AICD implantation, chronic pancreatitis, nicotine dependence ongoing. Patient presented to the emergency department this morning, on 11/16/2018 at around 7:00 in the morning, for evaluation of worsening shortness of breath, orthopnea, and lower extremity swelling, according to the patient and his , patient has been having several episodes of diarrhea stools, and significant nausea and vomiting.. EKG showed sinus tachycardia with occasional PVCs, evidence of anterior infarct of undetermined age, and nonspecific T-wave inversion in V6 lead. Troponin was positive at 0.044, [place] [address], CBC was unremarkable, sodium 129, potassium 5.5, BUN 16, creatinine 0.9. Chest x-ray showed cardiomegaly and chronic parenchymal changes with new patchy bibasilar acute infiltrate. At the time of my examination, patient is quite agitated that he is here in the hospital, he states he is aching all over, his hips are hurting, continues to have abdominal cramping from his diarrhea. He is notably short of breath. Patient was initiated on IV Lasix in the emergency room. He is currently on aspirin 81 mg daily, Lipitor 20 mg daily, IV Lasix 40 mg every 8 hourly, insulin, Imdur 30 mg daily, nicotine patch,Entresto, and Aldactone. Past Medical History Past Medical History: Heart Failure, COPD, CVA/TIA, Diabetes Mellitus, GERD/Reflux, Hyperlipidemia, Hypertension, Osteoarthritis (OA), Pneumonia, Renal Disease Additional Past Medical History / Comment(s): Severe COPD, chronic hypoxic respiratory failure, home oxygen at 4L/[place] ATC, nonishemic cardiomyopathy, AICD/pacer placement, TIA in 2018, pt denies past alcoholism, chronic pancreatitis, 3 pancreatic pseudocysts, IDDM type II, neuropathy biltaral legs/feet, chronic smoker, bilateral tinnitis occasionally, history of perforated left tympanic membranes-[place] left ear, pt states he has been treated for L arm pain with physical therapy but still having problems and has decreased ROM, chronic generalized pain, migraines, sinusitis History of Any Multi-Drug Resistant Organisms: None Reported Past Surgical History: AICD, Pacemaker Additional Past Surgical History / Comment(s): colonoscopy, "lump" removed from left side of neck. Past Anesthesia/Blood Transfusion Reactions: No Reported Reaction Type of Cardiac Device: Permanent Pacemaker, AICD Device Placement Date:: 09/2016 Past Psychological History: No Psychological Hx Reported Additional Psychological History / Comment(s): Pt resides alone. He has a nebulizer, home oxygen and a glucometer. He states he drives. Smoking Status: Current every day smoker Past Alcohol Use History: None Reported Additional Past Alcohol Use History / Comment(s): Pt started smoking in 1968. He has quit several times over the years. Pt states in the past he would drink 6 beers a day but none for "a long time" Past Drug Use History: None Reported Additional Drug Use History / Comment(s): in the used cocaine. - Past Family History Father Family Medical History: Congestive Heart Failure (CHF), COPD, Diabetes Mellitus Additional Family Medical History / Comment(s): mrsa, asbestoes exposure/lungs Mother Family Medical History: Diabetes Mellitus, Hypertension Additional Family Medical History / Comment(s): Mother is 87yrs old. Medications and Allergies Home Medications Medication Instructions Recorded Confirmed Type Pregabalin [Lyrica] 150 mg PO TID 03/22/18 11/16/18 History Docusate [Colace] 100 mg PO DAILY 05/04/18 11/16/18 History Zolpidem [Ambien] 10 mg PO HS PRN 05/04/18 11/16/18 History Metoprolol Succinate (ER) [Toprol 25 mg PO DAILY #30 tab.er.24h 05/09/18 11/16/18 Rx XL] Sacubitril/Valsartan [Entresto 24 1 tab PO BID 05/14/18 11/16/18 History mg-26 mg Tablet] HYDROcodone/APAP 10-325MG [[place] 1 tab PO Q4HR PRN #120 tab 05/18/18 11/16/18 Rx 10-325] Isosorbide Mononitrate ER [Imdur] 30 mg PO DAILY #30 tab.er.24h 05/18/18 11/16/18 Rx Torsemide [Demadex] 20 mg PO BID #60 tablet 05/18/18 11/16/18 Rx Gabapentin [Neurontin] 400 mg PO BID 07/18/18 11/16/18 History Spironolactone [Aldactone] 25 mg PO BID 07/18/18 11/16/18 History Albuterol Nebulized [Ventolin 2.5 mg INHALATION RT-Q6H 11/16/18 11/16/18 History Nebulized] Atorvastatin [Lipitor] 20 mg PO DAILY 11/16/18 11/16/18 History Budesonide/Formoterol Fumarate 2 puff INHALATION RT-BID 11/16/18 11/16/18 History [Symbicort 160-4.5 Mcg Inhaler] Fluticasone/Vilanterol [Breo 1 puff INHALATION RT-DAILY 11/16/18 11/16/18 History Ellipta 200-25 Mcg INH] Furosemide [Lasix] 40 mg PO BID 11/16/18 11/16/18 History Insulin Degludec [Tresiba] 32 units SQ 11/16/18 History Insulin Lispro [humaLOG Kwikpen] See Protocol SQ ACHS 11/16/18 11/16/18 History Lipase/Protease/Amylase [Creon Dr 36,000 units PO TID 11/16/18 11/16/18 History 36,000 Units Capsule] Nitroglycerin Sl Tabs [Nitrostat] 0.4 mg SUBLINGUAL Q5M PRN 11/16/18 11/16/18 History Polyethylene Glycol 3350 [Miralax] 17 gm PO DAILY 11/16/18 11/16/18 History Tamsulosin HCl [Flomax] 0.4 mg PO DAILY 11/16/18 11/16/18 History Varenicline [Chantix Continuing 1 mg PO BID 11/16/18 11/16/18 History Pack] Allergies Allergy/AdvReac Type Severity Reaction Status Date / Time meperidine HCl [From Demerol] AdvReac Severe Rapid Verified 11/16/18 09:04 Heart Rate/VOMITING ibuprofen [From Motrin] AdvReac Vomiting Verified 11/16/18 09:04 mayonnaise AdvReac Nausea & Verified 11/16/18 09:04 Vomiting & Diarrhea Physical Exam Vitals: Vital Signs Temp Pulse Pulse Resp BP BP Pulse Ox 11/16/18 12:00 97 F L 106 H 22 133/84 97 11/16/18 11:21 106 H 11/16/18 11:10 110 H 11/16/18 09:00 107 H 19 124/83 99 11/16/18 08:30 20 135/88 99 11/16/18 08:10 106 H 11/16/18 08:00 109 H 11/16/18 07:27 97.4 F L 107 H 18 127/85 99 Intake and Output 11/15/18 11/16/18 11/16/18 22:59 06:59 14:59 Intake Total 970 Balance 970 Intake: IV 10 0.9 10 Oral 960 Other: # Voids 1 # Bowel Movements 1 Weight 55.792 kg PHYSICAL EXAMINATION: GENERAL: 58-year-old gentleman in no acute distress at the time of my examination HEENT: Head is atraumatic, normocephalic. Pupils equal, round. Sclera anicteric. Conjunctiva are clear. Mucous membranes of the mouth are moist. Neck is supple. There is elevated jugular venous pressure. No carotid bruit is heard. HEART EXAMINATION: Heart S1, S2 normal. No murmur or gallop heard. CHEST EXAMINATION: His reveal diminished air entry to bilateral bases, there are rales heard bilaterally to the bases. ABDOMEN: Soft, nontender. Bowel sounds are heard. No organomegaly noted. EXTREMITIES: 2+ peripheral pulses with trace to 1+ evidence of peripheral edema and no calf tenderness noted. NEUROLOGIC patient is awake, alert and oriented 3 . . Results 11/16/18 07:52 11/16/18 07:52 Cardiac Enzymes 11/16/18 11/16/18 Range/Units 07:52 07:52 AST 113 H (17-59) U/L Troponin I 0.044 H* (0.000-0.034) ng/mL Coagulation 11/16/18 Range/Units 07:52 PT 11.4 (9.0-12.0) sec APTT 27.2 (22.0-30.0) sec CBC 11/16/18 Range/Units 07:52 WBC 7.3 (3.8-10.6) k/uL RBC 4.48 (4.30-5.90) m/uL Hgb 13.5 (13.0-17.5) gm/dL Hct 41.5 (39.0-53.0) % Plt Count 232 (150-450) k/uL Comprehensive Metabolic Panel 11/16/18 Range/Units 07:52 Sodium 129 L (137-145) mmol/L Potassium 5.5 H (3.5-5.1) mmol/L Chloride 96 L (98-107) mmol/L Carbon Dioxide 23 (22-30) mmol/L BUN 16 (9-20) mg/dL Creatinine 0.96 (0.66-1.25) mg/dL Glucose 129 H (74-99) mg/dL Calcium 8.9 (8.4-10.2) mg/dL AST 113 H (17-59) U/L ALT 57 (21-72) U/L Alkaline Phosphatase 142 H (38-126) U/L Total Protein 6.6 (6.3-8.2) g/dL Albumin 4.3 (3.5-5.0) g/dL Current Medications Generic Name Dose Route Start Last Admin Trade Name Freq PRN Reason Stop Dose Admin Hydrocodone Bitart/Acetaminophen 1 each 11/16/18 11:33 11/16/18 12:53 [place] 10 PO 1 each Q4HR PRN Administration Pain Albuterol/Ipratropium 3 ml 11/16/18 12:00 11/16/18 11:07 Duoneb 0.5 Mg-3 Mg/3 Ml Soln INHALATION 3 ml RT-QID JOSY Administration Albuterol/Ipratropium 3 ml 11/16/18 09:04 Duoneb 0.5 Mg-3 Mg/3 Ml Soln INHALATION RT-Q4H PRN Shortness Of Breath Or Wheezing Lipase/Protease/Amylase 7 each 11/16/18 12:30 11/16/18 12:[address] 5,000 Unit Capsule PO 7 each AC-TID JOSY Administration Aspirin 81 mg 11/17/18 09:00 Aspirin PO DAILY [facility] Atorvastatin Calcium 20 mg 11/17/18 09:00 Lipitor PO DAILY [facility] Docusate Sodium 100 mg 11/17/18 09:00 Colace PO DAILY [facility] Furosemide 40 mg 11/16/18 13:00 11/16/18 12:34 Lasix IV 40 mg Q8H JOSY Administration Gabapentin 400 mg 11/16/18 21:00 Neurontin PO BID [facility] Insulin Aspart 0 unit 11/16/18 12:30 11/16/18 13:01 Novolog SQ 8 unit ACHS JOSY Administration Protocol Insulin Detemir 20 unit 11/16/18 21:00 Levemir SQ HS JOSY Isosorbide Mononitrate 30 mg 11/17/18 09:00 Imdur PO DAILY [facility] Methylprednisolone Sodium Succinate 60 mg 11/16/18 12:00 11/16/18 12:33 Solu-Medrol IV 60 mg Q6HR [facility] Administration Metoprolol Succinate 25 mg 11/16/18 21:00 Toprol Xl PO BID [facility] Nicotine 1 patch 11/17/18 09:00 Habitrol 7mg/24hr Patch TRANSDERM DAILY [facility] Nitroglycerin 0.4 mg 11/16/18 11:33 Nitrostat SUBLINGUAL Q5M PRN Chest Pain Polyethylene Glycol 17 gm 11/17/18 09:00 Miralax PO DAILY [facility] Sacubitril/Valsartan 1 each 11/16/18 21:00 Entresto 24 Mg-26 Mg Tablet PO BID [facility] Spironolactone 25 mg 11/16/18 21:00 Aldactone PO BID [facility] Tamsulosin HCl 0.4 mg 11/17/18 09:00 Flomax PO DAILY [facility] Zolpidem Tartrate 10 mg 11/16/18 11:33 Ambien PO HS PRN Insomnia Intake and Output 11/15/18 11/16/18 11/16/18 22:59 06:59 14:59 Intake Total 970 Balance 970 Intake: IV 10 0.9 10 Oral 960 Other: # Voids 1 # Bowel Movements 1 Weight 55.792 kg Patient Weight 11/17/18 06:59 Weight 55.792 kg 11/16/18 07:52 11/16/18 07:52 EKG Interpretations (text) EKG shows a sinus tachycardia with left anterior fascicular block, ST-T wave changes noted in the lateral leads Assessment and Plan Plan: Assessment and plan: #1 dyspnea, orthopnea, lower extremity swelling secondary to an acute exacerbation of chronic systolic congestive heart failure along with an acute exacerbation of chronic obstructive pulmonary disease. #2 Non-ischemic cardiomyopathy with severely impaired left ventricular systolic function with ejection fraction less than 20%, status post AICD placement. #3 Elevated troponin of 0.044, could be related to acute exacerbation of chronic systolic congestive heart failure #4 mild hyponatremia likely related to acute CHF exacerbation #5 Severe chronic obstructive pulmonary disease, oxygen dependent. #6 Chronic and ongoing tobacco dependence. #7 History of chronic alcoholism. #8 Chronic pancreatitis with history of pancreatic pseudocyst and malabsorption secondary to chronic pancreatic insufficiency. #9 Diabetes mellitus. #10 Hypertension. #11 Hyperlipidemia. #12 Degenerative arthritis. Plan From cardiology's perspective, we'll recommend to continue the patient on IV Lasix. Continue baby aspirin, Lipitor 20 mg daily, metoprolol, nicotine patch,Entresto and Aldactone. Continue to monitor the intake and output along with daily weights and daily lytes BUN and creatinine. DNP note has been reviewed, I agree with a documented findings and plan of care. Patient was seen and examined.
[2018-11-16 16:37] VITALS: BMI 18.1
[2018-11-16 16:41] LABS: Glucose,Whole Blood 291 mg/dL (75-99)
[2018-11-16] MEDS: GABAPENTIN 400 MG CAP PO SCH (20:29)
[2018-11-16] MEDS: SACUBITRIL/VALSARTAN 24 MG-26 MG TABLET PO SCH (20:29)
[2018-11-16] MEDS: SPIRONOLACTONE 25 MG TAB PO SCH (20:29)
[2018-11-16] MEDS: METOPROLOL SUCCINATE (ER) 25 MG TAB.ER.24H PO SCH (20:29)
[2018-11-16 20:34] LABS: Glucose,Whole Blood 504 mg/dL (75-99)
[2018-11-16] MEDS ORDERED: INSULIN REGULAR BOLUS (FROM DRIP BAG) IV ONE (20:35)
[2018-11-16] MEDS ORDERED: INSULIN REGULAR 100 UNIT in SODIUM CHLORIDE 0.9% 100 ML IV SCH (20:45)
[2018-11-16] MEDS ORDERED: INSULIN DETEMIR (LEVEMIR) 100 UNIT/ML SYR SQ SCH (21:00)
[2018-11-16 23:16] LABS: Glucose,Whole Blood 436 mg/dL (75-99)
[2018-11-16 23:43] LABS: Glucose,Whole Blood 394 mg/dL (75-99)
[2018-11-17 00:07] LABS: Glucose,Whole Blood 331 mg/dL (75-99)
[2018-11-17 00:45] LABS: Glucose,Whole Blood 265 mg/dL (75-99)
[2018-11-17 01:27] LABS: Glucose,Whole Blood 188 mg/dL (75-99)
[2018-11-17 03:15] LABS: Glucose,Whole Blood 45 mg/dL (75-99)
[2018-11-17 03:35] LABS: Glucose,Whole Blood 85 mg/dL (75-99)
[2018-11-17 04:30] LABS: Glucose,Whole Blood 85 mg/dL (75-99)
[2018-11-17] MEDS: methylPREDNISolone SOD SUCCI 125 MG/2 ML VIAL IV SCH ×4 (05:27→23:50)
[2018-11-17] MEDS: HYDROcodone/APAP 10-325MG 1 EACH TAB PO PRN ×3 (05:27→21:27)
[2018-11-17] MEDS: FUROSEMIDE 10 MG/ML 4 ML VIAL IV SCH (05:27)
[2018-11-17 05:53] LABS: Glucose,Whole Blood 89 mg/dL (75-99)
[2018-11-17 06:58] LABS: Glucose,Whole Blood 114 mg/dL (75-99)
[2018-11-17] MEDS: INSULIN ASPART (NovoLOG) 100 UNIT/ML VIAL SQ SCH ×7 (07:04→21:22)
[2018-11-17] MEDS: LIPASE 5,000/PROTEASE 17,000/AMYLASE 24,000 PO SCH ×3 (07:05→17:00)
[2018-11-17 07:41] LABS: Albumin 3.4 g/dL (3.5-5.0); Calcium 8.1 mg/dL (8.4-10.2); Potassium 4.8 mmol/L (3.5-5.1); Total Bilirubin 0.5 mg/dL (0.2-1.3); Total Protein 5.5 g/dL (6.3-8.2)
[2018-11-17 07:46] LABS: HCT 36.9 % (39.0-53.0); HGB 12.1 gm/dL (13.0-17.5); MCH 29.3 pg (25.0-35.0); MCHC 32.6 g/dL (31.0-37.0); MCV 89.8 fL (80.0-100.0); Mean Platelet Volume 7.4; Platelet Count 240 k/uL (150-450); RBC 4.11 m/uL (4.30-5.90); RDW 14.7 % (11.5-15.5); WBC 7.1 k/uL (3.8-10.6)
--- NOTE | 2018-11-17 07:50 | P.HPIM ---
History of Present Illness H&P Date: 11/17/18 Chief Complaint: RAMIREZ and SOB This is a history and physical [id number] white male with known history of diabetes intermittent and chronic pancreatitis with history of CHF and COPD. The patient still continues to intermittently smoke. He came in with element of dyspnea for the last 2-3 days. Evaluation emergency room did show element of recurrent congestive heart failure and COPD. The patient is now admitted for treatment with cardiology and pulmonology consultation. He is tolerating diet. No significant nausea, vomiting or diarrhea stated. Review of Systems Constitutional: Denies chills, Denies fever Eyes: denies blurred vision, denies pain Ears, nose, mouth and throat: Denies headache, Denies sore throat Cardiovascular: Reports dyspnea on exertion Respiratory: Denies cough Gastrointestinal: Denies abdominal pain, Denies diarrhea, Denies nausea, Denies vomiting Musculoskeletal: Denies myalgias Past Medical History Past Medical History: Heart Failure, COPD, CVA/TIA, Diabetes Mellitus, GERD/Reflux, Hyperlipidemia, Hypertension, Osteoarthritis (OA), Pneumonia, Renal Disease Additional Past Medical History / Comment(s): Severe COPD, chronic hypoxic respiratory failure, home oxygen at 4L/[place] ATC, nonishemic cardiomyopathy, AICD/pacer placement, TIA in 2018, pt denies past alcoholism, chronic pancr eatitis, 3 pancreatic pseudocysts, IDDM type II, neuropathy biltaral legs/feet, chronic smoker, bilateral tinnitis occasionally, history of perforated left tympanic membranes-[place] left ear, pt states he has been treated for L arm pain with physical therapy but still having problems and has decreased ROM, chronic generalized pain, migraines, sinusitis History of Any Multi-Drug Resistant Organisms: None Reported Past Surgical History: AICD, Pacemaker Additional Past Surgical History / Comment(s): colonoscopy, "lump" removed from left side of neck. Past Anesthesia/Blood Transfusion Reactions: No Reported Reaction Type of Cardiac Device: Permanent Pacemaker, AICD Device Placement Date:: 09/2016 Past Psychological History: No Psychological Hx Reported Additional Psychological History / Comment(s): Pt resides alone. He has a nebulizer, home oxygen and a glucometer. He states he drives. Smoking Status: Current every day smoker Past Alcohol Use History: None Reported Additional Past Alcohol Use History / Comment(s): Pt started smoking in 1968. He has quit several times over the years. Pt states in the past he would drink 6 beers a day but none for "a long time" Past Drug Use History: None Reported Additional Drug Use History / Comment(s): in the used cocaine. - Past Family History Father Family Medical History: Congestive Heart Failure (CHF), COPD, Diabetes Mellitus Additional Family Medical History / Comment(s): mrsa, asbestoes exposure/lungs Mother Family Medical History: Diabetes Mellitus, Hypertension Additional Family Medical History / Comment(s): Mother is 87yrs old. Medications and Allergies Home Medications Medication Instructions Recorded Confirmed Type Pregabalin [Lyrica] 150 mg PO TID 03/22/18 11/16/18 History Docusate [Colace] 100 mg PO DAILY 05/04/18 11/16/18 History Zolpidem [Ambien] 10 mg PO HS PRN 05/04/18 11/16/18 History Metoprolol Succinate (ER) [Toprol 25 mg PO DAILY #30 tab.er.24h 05/09/18 11/16/18 Rx XL] Sacubitril/Valsartan [Entresto 24 1 tab PO BID 05/14/18 11/16/18 History mg-26 mg Tablet] HYDROcodone/APAP 10-325MG [[place] 1 tab PO Q4HR PRN #120 tab 05/18/18 11/16/18 Rx 10-325] Isosorbide Mononitrate ER [Imdur] 30 mg PO DAILY #30 tab.er.24h 05/18/18 11/16/18 Rx Torsemide [Demadex] 20 mg PO BID #60 tablet 05/18/18 11/16/18 Rx Gabapentin [Neurontin] 400 mg PO BID 07/18/18 11/16/18 History Spironolactone [Aldactone] 25 mg PO BID 07/18/18 11/16/18 History Albuterol Nebulized [Ventolin 2.5 mg INHALATION RT-Q6H 11/16/18 11/16/18 History Nebulized] Atorvastatin [Lipitor] 20 mg PO DAILY 11/16/18 11/16/18 History Budesonide/Formoterol Fumarate 2 puff INHALATION RT-BID 11/16/18 11/16/18 History [Symbicort 160-4.5 Mcg Inhaler] Fluticasone/Vilanterol [Breo 1 puff INHALATION RT-DAILY 11/16/18 11/16/18 History Ellipta 200-25 Mcg INH] Furosemide [Lasix] 40 mg PO BID 11/16/18 11/16/18 History Insulin Degludec [Tresiba] 32 units SQ 11/16/18 History Insulin Lispro [humaLOG Kwikpen] See Protocol SQ ACHS 11/16/18 11/16/18 History Lipase/Protease/Amylase [Creon Dr 36,000 units PO TID 11/16/18 11/16/18 History 36,000 Units Capsule] Nitroglycerin Sl Tabs [Nitrostat] 0.4 mg SUBLINGUAL Q5M PRN 11/16/18 11/16/18 History Polyethylene Glycol 3350 [Miralax] 17 gm PO DAILY 11/16/18 11/16/18 History Tamsulosin HCl [Flomax] 0.4 mg PO DAILY 11/16/18 11/16/18 History Varenicline [Chantix Continuing 1 mg PO BID 11/16/18 11/16/18 History Pack] Allergies Allergy/AdvReac Type Severity Reaction Status Date / Time meperidine HCl [From Demerol] AdvReac Severe Rapid Verified 11/16/18 09:04 Heart Rate/VOMITING ibuprofen [From Motrin] AdvReac Vomiting Verified 11/16/18 09:04 mayonnaise AdvReac Nausea & Verified 11/16/18 09:04 Vomiting & Diarrhea Physical Exam Vitals: Vital Signs Temp Pulse Pulse Resp BP BP Pulse Ox 11/17/18 03:24 97.6 F 76 20 119/81 96 11/16/18 23:38 97.6 F 85 20 108/59 99 11/16/18 23:11 20 11/16/18 20:00 98.4 F 95 20 119/72 98 11/16/18 16:57 98 11/16/18 16:56 97 16 11/16/18 16:45 98 16 98 11/16/18 15:43 97.6 F 94 18 111/63 98 11/16/18 12:00 97 F L 106 H 22 133/84 97 11/16/18 11:21 106 H 11/16/18 11:10 110 H 11/16/18 09:00 107 H 19 124/83 99 11/16/18 08:30 20 135/88 99 11/16/18 08:10 106 H 11/16/18 08:00 109 H Intake and Output 11/16/18 11/17/18 11/17/18 22:59 06:59 14:59 Intake Total 680 242.954 Balance 680 242.954 Intake: Intake, IV Titration 92.954 Amount Insulin Regular 100 unit 92.954 In Sodium Chloride 0.9% 100 ml @ Titrate IV .Q0M [facility] Rx#:[id number] Oral 680 150 Other: # Voids 1 2 # Bowel Movements 1 Weight 55.792 kg 60.6 kg - Constitutional General appearance: thin - EENT Eyes: EOMI - Neck Neck: no lymphadenopathy - Respiratory Respiratory: bilateral: diminished - Cardiovascular Rhythm: regular Heart sounds: normal: S1, S2 Abnormal Heart Sounds: no S3 Gallop - Gastrointestinal General gastrointestinal: soft, no tenderness - Integumentary Integumentary: no cellulitis - Neurologic Neurologic: CNII-XII intact - Musculoskeletal Musculoskeletal: generalized weakness - Psychiatric Psychiatric: A&O x's 3, intact judgment & insight Results CBC & Chem 7: 11/16/18 07:52 11/17/18 06:54 Labs: Abnormal Lab Results - Last 24 Hours (Table) 11/16/18 11/16/18 11/16/18 Range/Units 07:52 07:52 10:31 Sodium 129 L (137-145) mmol/L Potassium 5.5 H (3.5-5.1) mmol/L Chloride 96 L (98-107) mmol/L BUN (9-20) mg/dL Creatinine (0.66-1.25) mg/dL Glucose 129 H (74-99) mg/dL POC Glucose (mg/dL) 158 H (75-99) mg/dL Calcium (8.4-10.2) mg/dL AST 113 H (17-59) U/L Alkaline Phosphatase 142 H (38-126) U/L Troponin I 0.044 H* (0.000-0.034) ng/mL Total Protein (6.3-8.2) g/dL Albumin (3.5-5.0) g/dL 11/16/18 11/16/18 11/16/18 Range/Units 11:48 14:06 16:39 Sodium (137-145) mmol/L Potassium (3.5-5.1) mmol/L Chloride (98-107) mmol/L BUN (9-20) mg/dL Creatinine (0.66-1.25) mg/dL Glucose (74-99) mg/dL POC Glucose (mg/dL) 253 H 291 H (75-99) mg/dL Calcium (8.4-10.2) mg/dL AST (17-59) U/L Alkaline Phosphatase (38-126) U/L Troponin I 0.040 H* (0.000-0.034) ng/mL Total Protein (6.3-8.2) g/dL Albumin (3.5-5.0) g/dL 11/16/18 11/16/18 11/16/18 Range/Units 20:24 23:04 23:34 Sodium (137-145) mmol/L Potassium (3.5-5.1) mmol/L Chloride (98-107) mmol/L BUN (9-20) mg/dL Creatinine (0.66-1.25) mg/dL Glucose (74-99) mg/dL POC Glucose (mg/dL) 504 H 436 H 394 H (75-99) mg/dL Calcium (8.4-10.2) mg/dL AST (17-59) U/L Alkaline Phosphatase (38-126) U/L Troponin I (0.000-0.034) ng/mL Total Protein (6.3-8.2) g/dL Albumin (3.5-5.0) g/dL 11/17/18 11/17/18 11/17/18 Range/Units 00:05 00:34 01:07 Sodium (137-145) mmol/L Potassium (3.5-5.1) mmol/L Chloride (98-107) mmol/L BUN (9-20) mg/dL Creatinine (0.66-1.25) mg/dL Glucose (74-99) mg/dL POC Glucose (mg/dL) 331 H 265 H 188 H (75-99) mg/dL Calcium (8.4-10.2) mg/dL AST (17-59) U/L Alkaline Phosphatase (38-126) U/L Troponin I (0.000-0.034) ng/mL Total Protein (6.3-8.2) g/dL Albumin (3.5-5.0) g/dL 11/17/18 11/17/18 11/17/18 Range/Units 03:04 06:54 06:57 Sodium 126 L (137-145) mmol/L Potassium (3.5-5.1) mmol/L Chloride 91 L (98-107) mmol/L BUN 40 H (9-20) mg/dL Creatinine 1.44 H (0.66-1.25) mg/dL Glucose (74-99) mg/dL POC Glucose (mg/dL) 45 L 114 H (75-99) mg/dL Calcium 8.1 L (8.4-10.2) mg/dL AST (17-59) U/L Alkaline Phosphatase (38-126) U/L Troponin I (0.000-0.034) ng/mL Total Protein 5.5 L (6.3-8.2) g/dL Albumin 3.4 L (3.5-5.0) g/dL Thrombosis Risk Factor Assmnt - Choose All That Apply Any of the Below Risk Factors Present?: Yes Each Factor Represents 1 point: Age 41-60 years, Swollen legs (current) Thrombosis Risk Factor Assessment Total Risk Factor Score: 2 Thrombosis Risk Factor Assessment Level: Low Risk Assessment and Plan (1) Shoulder pain Current Visit: Yes Status: Acute Code(s): M25.519 - PAIN IN UNSPECIFIED SHOULDER SNOMED Code(s): 56187237 (2) Congestive heart failure Current Visit: Yes Status: Acute Code(s): I50.9 - HEART FAILURE, UNSPECIFIED SNOMED Code(s): 34393534 (3) Acute exacerbation of chronic obstructive airways disease Current Visit: No Status: Acute Code(s): J44.1 - CHRONIC OBSTRUCTIVE PULMONARY DISEASE W (ACUTE) EXACERBATION SNOMED Code(s): 685607817 (4) Chronic pancreatitis Current Visit: No Status: Acute Code(s): K86.1 - OTHER CHRONIC PANCREATITIS SNOMED Code(s): 826859765 (5) Diabetes Current Visit: No Status: Acute Code(s): E11.9 - TYPE 2 DIABETES MELLITUS WITHOUT COMPLICATIONS SNOMED Code(s): 61041750 (6) Diabetic neuropathy Current Visit: No Status: Acute Code(s): E11.40 - TYPE 2 DIABETES MELLITUS WITH DIABETIC NEUROPATHY, UNSP SNOMED Code(s): 740957753 (7) NICM (nonischemic cardiomyopathy) Current Visit: No Status: Acute Code(s): I42.9 - CARDIOMYOPATHY, UNSPECIFIED SNOMED Code(s): 70784535 Plan: The patient is requesting PT for the left shoulder. We will go ahead and have this evaluated. Reconcile home medications. Appreciate consultants input. Dr. Morris's group covering for the weekend. Prognosis is guarded given his multiple comorbidities. Time with Patient: Greater than 30
[2018-11-17 08:02] LABS: Glucose,Whole Blood 173 mg/dL (75-99)
[2018-11-17] MEDS: ATORVASTATIN 20 MG TAB PO SCH (08:15)
[2018-11-17] MEDS: ASPIRIN 81 MG PO SCH (08:16)
[2018-11-17] MEDS: IPRATROPIUM-ALBUTEROL 3 ML NEB INHALATION SCH ×4 (08:21→20:11)
[2018-11-17] MEDS ORDERED: TAMSULOSIN 0.4 MG CAP.ER.24H PO SCH (09:00)
[2018-11-17] MEDS ORDERED: METOPROLOL SUCCINATE (ER) 25 MG TAB.ER.24H PO SCH (09:00)
[2018-11-17] MEDS ORDERED: ASPIRIN 325 MG TAB PO SCH (09:00)
[2018-11-17] MEDS ORDERED: ISOSORBIDE MONONITRATE ER 30 MG TAB.ER.24H PO SCH (09:00)
[2018-11-17 09:01] LABS: Glucose,Whole Blood 231 mg/dL (75-99)
[2018-11-17] MEDS: NICOTINE 7MG/24HR PATCH TRANSDERM SCH (09:01)
[2018-11-17] MEDS: DOCUSATE 100 MG CAP PO SCH (09:01)
[2018-11-17] MEDS: POLYETHYLENE GLYCOL 3350 17 GM POWD.PACK PO SCH (09:01)
[2018-11-17] MEDS: METOPROLOL SUCCINATE (ER) 25 MG TAB.ER.24H PO SCH ×2 (10:36→23:50)
[2018-11-17] MEDS: GABAPENTIN 400 MG CAP PO SCH ×2 (10:36→20:05)
[2018-11-17] MEDS: SACUBITRIL/VALSARTAN 24 MG-26 MG TABLET PO SCH ×2 (10:37→20:05)
[2018-11-17] MEDS: guaiFENesin 600 MG TABLET.ER PO SCH ×2 (10:43→20:05)
[2018-11-17] MEDS: DOXYCYCLINE 100 MG CAP PO SCH ×2 (10:43→20:05)
[2018-11-17] MEDS: SPIRONOLACTONE 25 MG TAB PO SCH (10:46)
[2018-11-17 11:54] LABS: Glucose,Whole Blood 296 mg/dL (75-99)
--- NOTE | 2018-11-17 12:32 | P.PN ---
Subjective Progress Note Date: 11/17/18 Principal diagnosis: Orthopnea, lower extremity swelling, chest tightness This is a 58-year-old white male patient with known history of non-ischemic cardiomyopathy, history of EtOH abuse currently in remission, chronic systolic congestive heart failure, hypertension, diabetes, COPD on home oxygen, chronic diaphragmatic paralysis, hyperlipidemia, prior AICD implantation, chronic pancreatitis, nicotine dependence ongoing. Patient presented to the emergency department this morning, on 11/16/2018 at around 7:00 in the morning, for evaluation of worsening shortness of breath, orthopnea, and lower extremity swelling, patient also admitted to having midsternal and left sided that chest discomfort, and described it as pressure in the mid sternum, ongoing, rates it 8 out of 10, with no real exacerbating factors, that has been present since last night. EKG showed sinus tachycardia with occasional PVCs, evidence of anterior infarct of undetermined age, and nonspecific T-wave inversion in V6 lead. Troponin was positive at 0.044, [place] 30[address], CBC was unremarkable, coa gulation profile was normal, serum sodium was 129, potassium is 5.5, chloride was 96, the rest of the electrolytes and renal profile within normal limits. No fever or chills, patient has a mild cough, and some mild phlegm production, but denied any fever or chills. He states he has been compliant with his medications, however she is still smoking, currently down to 8 cigarettes a day, denies drinking alcohol. Chest x-ray was completed showing cardiomegaly and chronic parenchymal changes with new patchy basilar acute infiltrate versus atelectasis. Patient has been started on IV diuretics, nebulized bronchodilators, IV steroids and we are consulted in regards to patient's COPD exacerbation On 11/17/2018 patient seen in follow-up on selective care unit, denies any acute distress, still having some chest tightness in the midsternal and left chest area, lung sounds are positive for rales, and wheezing. he continues on diuretics, and on today's labs there has been worsening of patient's renal profile, with the BUN up to 40 and creatinine is up to 1.44, serum sodium is 126, and IV Lasix has been transitioned to oral Lasix per cardiology. Patient remains on IV steroids, nebulized bronchodilators, still states that his chest feels tight, and thinks this may be related to COPD exacerbation. No significant nausea, vomiting or diarrhea. Objective - Vital Signs Vital signs: Vital Signs Temp 97.5 F L 11/17/18 08:00 Pulse 99 11/17/18 08:32 Resp 20 11/17/18 08:00 BP 110/55 11/17/18 10:20 Pulse Ox 98 11/17/18 08:00 Intake & Output 11/16/18 11/17/18 11/17/18 18:59 06:59 18:59 Intake Total 1450 442.954 490 Balance 1450 442.954 490 Weight 55.792 kg 60.6 kg Intake: IV 10 10 0.9 10 10 Intake, IV Titration 92.954 Amount Insulin Regular 100 unit 92.954 In Sodium Chloride 0.9% 100 ml @ Titrate IV .Q0M JOSY Rx#:[id number] Oral 1440 350 480 Other: # Voids 1 2 # Bowel Movements 1 1 - Exam GENERAL EXAM: Alert, pleasant, 58-year-old white male, on 4 L of oxygen and the pulse ox of 97%, comfortable in no apparent distress. HEAD: Normocephalic/atraumatic. EYES: Normal reaction of pupils, equal size. Conjunctiva pink, sclera white. NOSE: Clear with pink turbinates. THROAT: No erythema or exudates. NECK: No masses, no JVD, no thyroid enlargement, no adenopathy. CHEST: No chest wall deformity. Symmetrical expansion. LUNGS: Equal air entry with rales at bilateral bases, but no wheeze, rhonchi or dullness. CVS: Regular rate and rhythm, normal S1 and S2, no gallops, no murmurs, no rubs ABDOMEN: Soft, nontender. No hepatosplenomegaly, normal bowel sounds, no guar ding or rigidity. EXTREMITIES: No clubbing, 1+ pretibial and ankle edema, no cyanosis, 2+ pulses and upper and lower extremities. MUSCULOSKELETAL: Muscle strength and tone normal. SPINE: No scoliosis or deformity SKIN: No rashes CENTRAL NERVOUS SYSTEM: Alert and oriented -3. No focal deficits, tone is normal in all 4 extremities. PSYCHIATRIC: Alert and oriented -3. Appropriate affect. Intact judgment and insight. - Labs CBC & Chem 7: 11/17/18 06:54 11/17/18 06:54 Labs: Abnormal Lab Results - Last 24 Hours (Table) 11/16/18 11/16/18 11/16/18 Range/Units 14:06 16:39 20:24 RBC (4.30-5.90) m/uL Hgb (13.0-17.5) gm/dL Hct (39.0-53.0) % Sodium (137-145) mmol/L Chloride (98-107) mmol/L BUN (9-20) mg/dL Creatinine (0.66-1.25) mg/dL POC Glucose (mg/dL) 291 H 504 H (75-99) mg/dL Calcium (8.4-10.2) mg/dL Troponin I 0.040 H* (0.000-0.034) ng/mL Total Protein (6.3-8.2) g/dL Albumin (3.5-5.0) g/dL 11/16/18 11/16/18 11/17/18 Range/Units 23:04 23:34 00:05 RBC (4.30-5.90) m/uL Hgb (13.0-17.5) gm/dL Hct (39.0-53.0) % Sodium (137-145) mmol/L Chloride (98-107) mmol/L BUN (9-20) mg/dL Creatinine (0.66-1.25) mg/dL POC Glucose (mg/dL) 436 H 394 H 331 H (75-99) mg/dL Calcium (8.4-10.2) mg/dL Troponin I (0.000-0.034) ng/mL Total Protein (6.3-8.2) g/dL Albumin (3.5-5.0) g/dL 11/17/18 11/17/18 11/17/18 Range/Units 00:34 01:07 03:04 RBC (4.30-5.90) m/uL Hgb (13.0-17.5) gm/dL Hct (39.0-53.0) % Sodium (137-145) mmol/L Chloride (98-107) mmol/L BUN (9-20) mg/dL Creatinine (0.66-1.25) mg/dL POC Glucose (mg/dL) 265 H 188 H 45 L (75-99) mg/dL Calcium (8.4-10.2) mg/dL Troponin I (0.000-0.034) ng/mL Total Protein (6.3-8.2) g/dL Albumin (3.5-5.0) g/dL 11/17/18 11/17/18 11/17/18 Range/Units 06:54 06:54 06:57 RBC 4.11 L (4.30-5.90) m/uL Hgb 12.1 L (13.0-17.5) gm/dL Hct 36.9 L (39.0-53.0) % Sodium 126 L (137-145) mmol/L Chloride 91 L (98-107) mmol/L BUN 40 H (9-20) mg/dL Creatinine 1.44 H (0.66-1.25) mg/dL POC Glucose (mg/dL) 114 H (75-99) mg/dL Calcium 8.1 L (8.4-10.2) mg/dL Troponin I (0.000-0.034) ng/mL Total Protein 5.5 L (6.3-8.2) g/dL Albumin 3.4 L (3.5-5.0) g/dL 11/17/18 11/17/18 11/17/18 Range/Units 08:00 08:58 11:47 RBC (4.30-5.90) m/uL Hgb (13.0-17.5) gm/dL Hct (39.0-53.0) % Sodium (137-145) mmol/L Chloride (98-107) mmol/L BUN (9-20) mg/dL Creatinine (0.66-1.25) mg/dL POC Glucose (mg/dL) 173 H 231 H 296 H (75-99) mg/dL Calcium (8.4-10.2) mg/dL Troponin I (0.000-0.034) ng/mL Total Protein (6.3-8.2) g/dL Albumin (3.5-5.0) g/dL Assessment and Plan Plan: Assessment: #1 dyspnea, orthopnea, lower extremity swelling secondary to an acute exacerbation of chronic systolic congestive heart failure along with an acute exacerbation of chronic obstructive pulmonary disease. #2 Non-ischemic cardiomyopathy with severely impaired left ventricular systolic function with ejection fraction less than 20%, status post AICD placement. #3 Elevated troponin of 0.044, could be related to acute exacerbation of chronic systolic congestive heart failure #4 mild hyponatremia likely related to acute CHF exacerbation #5 Severe chronic obstructive pulmonary disease, oxygen dependent. #6 Chronic and ongoing tobacco dependence. #7 History of chronic alcoholism. #8 Chronic pancreatitis with history of pancreatic pseudocyst and malabsorption secondary to chronic pancreatic insufficiency. #9 Diabetes mellitus. #10 Hypertension. #11 Hyperlipidemia. #12 Degenerative arthritis. #13 Chronic renal failure, unspecified Plan: Continue current plan of treatment, IV steroids, neb bronchodilators, antibiotics will be added in the form of doxycycline, continues to have wheezing and congestion, and chest tightness, cardiology consultation was noted, patient has been transitioned to oral Lasix. We'll continue to follow I performed a history & physical examination of the patient and discussed their management with my nurse practitioner, Princess Epps. I reviewed the nurse practitioner's note and agree with the documented findings and plan of care. Lung sounds are positive for basilar rales. The findings and the impression was discussed with the patient. I attest to the documentation by the nurse practitioner. Time with Patient: Less than 30
--- NOTE | 2018-11-17 13:09 | PN ---
PROGRESS NOTE Mr. Choudhury is a 58-year-old male with known history of severe nonischemic cardiomyopathy, history of chronic obstructive lung disease, who presented with progressive dyspnea and worsening CHF and exacerbation of COPD. He is complaining today about the inability to sleep but otherwise denying any chest pain. No dizziness. No palpitation. His breathing is better. Overall, he has less peripheral edema. He denies any nausea or vomiting. He continued to be on Lasix 40 mg IV q.8 hours, Entresto 24-26 mg twice a day, metoprolol succinate 25 mg twice a day, Aldactone 25 mg twice a day, isosorbide mononitrate 30 mg daily, aspirin once a day, Lipitor 20 mg daily. PHYSICAL EXAMINATION: His blood pressure running on the low side in the high 80s, 90s and low 100s. Heart rate in the 90s. LUNGS: With improved air exchange. No wheezes appreciated. HEART: Regular rate and rhythm. S1, S2. No S3 with systolic murmur. No rub. ABDOMEN: Soft, nontender. No organomegaly. EXTREMITIES: With decreased edema, minimal at this point. LAB DATA: Lab data revealed BUN and creatinine 40 and 1.44, potassium 4.8, sodium down to 126 from 129. IMPRESSION: 1. Exacerbation of congestive heart failure in a patient with known history of severe nonischemic cardiomyopathy. 2. Exacerbation of chronic obstructive pulmonary disease. 3. Chronic tobacco use. 4. Prior history of alcohol intake. 5. Hyponatremia. 6. History of diabetes. 7. Hyperlipidemia. RECOMMENDATION: I will switch him to oral diuretics. I will cut down the Aldactone to once a day and stop the isosorbide mononitrate to stabilize his blood pressure. Will follow his blood pressure and his breathing status. If stable blood pressure I will increase the dose of the Entresto. Continue the rest of his medical regimen. Depending on his progress, further recommendation will be made. MMODL / IJN: [id number] /
[2018-11-17 14:44] LABS: Hemoglobin A1C 12.2 % (4.0-6.0)
[2018-11-17] MEDS ORDERED: FUROSEMIDE 40 MG TAB PO SCH (16:00)
[2018-11-17 17:12] LABS: Glucose,Whole Blood 421 mg/dL (75-99)
[2018-11-17] MEDS ORDERED: INSULIN ASPART (NovoLOG) 100 UNIT/ML VIAL SQ ONE (18:03)
[2018-11-17] MEDS: FORMOTEROL FUMARATE 20 MCG/2 ML NEBU INHALATION SCH (20:09)
[2018-11-17] MEDS: BUDESONIDE 1 MG/2 ML NEBU INHALATION SCH (20:09)
[2018-11-17 20:14] LABS: Glucose,Whole Blood 456 mg/dL (75-99)
[2018-11-17] MEDS ORDERED: INSULIN DETEMIR (LEVEMIR) 100 UNIT/ML SYR SQ SCH (21:00)
[2018-11-17 21:15] LABS: Glucose,Whole Blood 380 mg/dL (75-99)
[2018-11-18] MEDS: HYDROcodone/APAP 10-325MG 1 EACH TAB PO PRN (04:45)
[2018-11-18 04:52] VITALS: TEMP 97.9
[2018-11-18] MEDS: methylPREDNISolone SOD SUCCI 125 MG/2 ML VIAL IV SCH ×2 (06:15→12:09)
[2018-11-18] MEDS: INSULIN ASPART (NovoLOG) 100 UNIT/ML VIAL SQ SCH ×4 (06:47→12:11)
[2018-11-18 06:54] LABS: Glucose,Whole Blood 96 mg/dL (75-99)
[2018-11-18] MEDS: LIPASE 5,000/PROTEASE 17,000/AMYLASE 24,000 PO SCH (07:01)
[2018-11-18 07:14] LABS: HCT 34.7 % (39.0-53.0); HGB 11.4 gm/dL (13.0-17.5); MCH 29.8 pg (25.0-35.0); MCHC 32.9 g/dL (31.0-37.0); MCV 90.4 fL (80.0-100.0); Mean Platelet Volume 7.3; Platelet Count 239 k/uL (150-450); RBC 3.84 m/uL (4.30-5.90); RDW 14.6 % (11.5-15.5); WBC 9.8 k/uL (3.8-10.6)
[2018-11-18 07:26] LABS: Albumin 3.8 g/dL (3.5-5.0); Calcium 8.6 mg/dL (8.4-10.2); Potassium 5.4 mmol/L (3.5-5.1); Total Bilirubin 0.3 mg/dL (0.2-1.3); Total Protein 5.9 g/dL (6.3-8.2)
[2018-11-18] MEDS: IPRATROPIUM-ALBUTEROL 3 ML NEB INHALATION SCH ×2 (08:22→11:47)
[2018-11-18] MEDS: BUDESONIDE 1 MG/2 ML NEBU INHALATION SCH (08:22)
[2018-11-18] MEDS: FORMOTEROL FUMARATE 20 MCG/2 ML NEBU INHALATION SCH (08:23)
[2018-11-18] MEDS: ASPIRIN 81 MG PO SCH (08:44)
[2018-11-18] MEDS: guaiFENesin 600 MG TABLET.ER PO SCH (08:44)
[2018-11-18] MEDS: POLYETHYLENE GLYCOL 3350 17 GM POWD.PACK PO SCH (08:44)
[2018-11-18] MEDS: NICOTINE 7MG/24HR PATCH TRANSDERM SCH (08:45)
[2018-11-18] MEDS: DOCUSATE 100 MG CAP PO SCH (08:45)
[2018-11-18] MEDS: GABAPENTIN 400 MG CAP PO SCH (08:45)
[2018-11-18] MEDS: DOXYCYCLINE 100 MG CAP PO SCH (08:45)
[2018-11-18] MEDS: ATORVASTATIN 20 MG TAB PO SCH (08:45)
[2018-11-18] MEDS ORDERED: SPIRONOLACTONE 25 MG TAB PO SCH (09:00)
[2018-11-18 11:52] VITALS: RESP 16
[2018-11-18 11:59] LABS: Glucose,Whole Blood 266 mg/dL (75-99)
--- NOTE | 2018-11-18 12:01 | P.PN ---
Subjective Progress Note Date: 11/18/18 This is a 4-year-old gentleman who follows Dr. Phillips in the office. He has a history of severe nonischemic cardiomyopathy, COPD, nicotine dependence. He presented with progressive dyspnea and worsening CHF and exacerbation of COPD. Overall today, he says he feels better and his edema is gone and his breathing is better. He has no chest discomfort, dizziness or palpitations. He's had no nausea or vomiting. He was switched to oral Lasix yesterday. He is currently on aspirin 81 mg by mouth daily, Lasix 40 mg by mouth twice a day, metoprolol succinate 25 mg by mouth twice a day, Aldactone 25 mg by mouth daily and Entresto 2426 mg by mouth twice a day. Blood pressure was slightly low this morning 86/52 which patient normally runs on the low side. Morning medications are being staggered. Objective - Vital Signs Vital signs: Vital Signs Temp 97.9 F 11/18/18 04:00 Pulse 84 11/18/18 11:47 Resp 16 11/18/18 11:47 BP 86/52 11/18/18 08:00 Pulse Ox 97 11/18/18 08:23 Intake & Output 11/17/18 11/18/18 11/18/18 18:59 06:59 18:59 Intake Total 1330 360 Output Total 200 Balance 1330 160 Weight 62.6 kg Intake: IV 10 0.9 10 Oral 1320 360 Output: Urine 200 Other: # Voids 1 - Exam PHYSICAL EXAMINATION: HEENT: Head is atraumatic, normocephalic. Pupils equal, round. Neck is supple. There is no elevated jugular venous pressure. HEART EXAMINATION: Heart sounds regular, S1 and S2 with a systolic murmur. CHEST EXAMINATION: Lungs reveal diminished air entry bilaterally. No chest wall tenderness is noted on palpation or with deep breathing. ABDOMEN: Soft, nontender. Bowel sounds are heard. No organomegaly noted. EXTREMITIES: 2+ peripheral pulses with no evidence of peripheral edema and no calf tenderness noted. NEUROLOGIC patient is awake, alert and oriented x3. . - Labs CBC & Chem 7: 11/18/18 06:27 11/18/18 06:27 Labs: Abnormal Lab Results - Last 24 Hours (Table) 11/17/18 11/17/18 11/17/18 Range/Units 06:54 17:09 20:03 RBC (4.30-5.90) m/uL Hgb (13.0-17.5) gm/dL Hct (39.0-53.0) % Sodium (137-145) mmol/L Potassium (3.5-5.1) mmol/L Chloride (98-107) mmol/L BUN (9-20) mg/dL Creatinine (0.66-1.25) mg/dL POC Glucose (mg/dL) 421 H 456 H (75-99) mg/dL Hemoglobin A1c 12.2 H (4.0-6.0) % Total Protein (6.3-8.2) g/dL 11/17/18 11/18/18 11/18/18 Range/Units 21:12 06:27 06:27 RBC 3.84 L (4.30-5.90) m/uL Hgb 11.4 L (13.0-17.5) gm/dL Hct 34.7 L (39.0-53.0) % Sodium 129 L (137-145) mmol/L Potassium 5.4 H (3.5-5.1) mmol/L Chloride 93 L (98-107) mmol/L BUN 59 H (9-20) mg/dL Creatinine 1.68 H (0.66-1.25) mg/dL POC Glucose (mg/dL) 380 H (75-99) mg/dL Hemoglobin A1c (4.0-6.0) % Total Protein 5.9 L (6.3-8.2) g/dL Assessment and Plan Assessment: #1 exacerbation of systolic CHF in a patient with known history of severe nonischemic cardiomyopathy #2 exacerbation of COPD #3 chronic tobacco use, smoking up until day of admission #4 prior history of alcohol abuse #5 hyponatremia #6 history of diabetes #7 hyperlipidemia Plan: From cardiology's perspective, medications were reviewed will continue the same at this time. We will be unable to increased dose of Entresto at this time. Discussed with the patient in detail importance of smoking cessation. [employer] note has been reviewed, I agree with a documented findings and plan of care. Patient was seen and examined.
[2018-11-18] MEDS: METOPROLOL SUCCINATE (ER) 25 MG TAB.ER.24H PO SCH (12:09)
[2018-11-18 12:15] VITALS: BP 121/75; PULSE 80
--- NOTE | 2018-11-18 12:43 | P.PN ---
Subjective Progress Note Date: 11/18/18 Principal diagnosis: Acute exacerbation of chronic systolic congestive heart failure. This is a 58-year-old white male patient with known history of non-ischemic cardiomyopathy, history of EtOH abuse currently in remission, chronic systolic congestive heart failure, hypertension, diabetes, COPD on home oxygen, chronic diaphragmatic paralysis, hyperlipidemia, prior AICD implantation, chronic pancreatitis, nicotine dependence ongoing. Patient presented to the emergency department this morning, on 11/16/2018 at around 7:00 in the morning, for evaluation of worsening shortness of breath, orthopnea, and lower extremity swelling, patient also admitted to having midsternal and left sided that chest discomfort, and described it as pressure in the mid sternum, ongoing, rates it 8 out of 10, with no real exacerbating factors, that has been present since last night. EKG showed sinus tachycardia with occasional PVCs, evidence of anterior infarct of undetermined age, and nonspecific T-wave inversion in V6 lead. Troponin was positive at 0.044, proBNP [place] 50137, CBC was unremarkable, coagulation profile was normal, serum sodium was 129, potassium is 5.5, chloride was 96, the rest of the electrolytes and renal profile within normal limits. No fever or chills, patient has a mild cough, and some mild phlegm production, but denied any fever or chills. He states he has been compliant with his medications, however she is still smoking, currently down to 8 cigarettes a day, denies drinking alcohol. Chest x-ray was completed showing cardiomegaly and chronic parenchymal changes with new patchy basilar acute infiltrate versus atelectasis. Patient has been started on IV diuretics, nebulized bronchodilators, IV steroids and we are consulted in regards to patient's COPD exacerbation On 11/17/2018 patient seen in follow-up on selective care unit, denies any acute distress, still having some chest tightness in the midsternal and left chest area, lung sounds are positive for rales, and wheezing. he continues on diuretics, and on today's labs there has been worsening of patient's renal profile, with the BUN up to 40 and creatinine is up to 1.44, serum sodium is 1 26, and IV Lasix has been transitioned to oral Lasix per cardiology. Patient remains on IV steroids, nebulized bronchodilators, still states that his chest feels tight, and thinks this may be related to COPD exacerbation. No significant nausea, vomiting or diarrhea. The patient is seen today 11/18/2018 in follow-up on the selective care unit. He is currently awake and alert in no acute distress. He denies any worsening shortness of breath, cough or congestion. Breathing easier today as compared to yesterday.currently maintaining good O2 saturations up to 100% on 4 L/m per nasal cannula. Afebrile. Hemodynamically stable. white count 9.8. Hemoglobin 11.4. Creatinine 1.68. Sodium 129. Potassium 5.4.currently on oral diuretics. He remains on DuoNeb inhalations, Perforomist and Pulmicort inhalations, IV Solu-Medrol. Antibiotics in the form of Vibramycin. NicoDerm patch is in place. Objective - Vital Signs Vital signs: Vital Signs Temp 97.9 F 11/18/18 04:00 Pulse 80 11/18/18 12:00 Resp 16 11/18/18 12:00 BP 121/75 11/18/18 12:00 Pulse Ox 100 11/18/18 12:00 Intake & Output 11/17/18 11/18/18 11/18/18 18:59 06:59 18:59 Intake Total 1330 360 Output Total 200 Balance 1330 160 Weight 62.6 kg Intake: IV 10 0.9 10 Oral 1320 360 Output: Urine 200 Other: # Voids 1 - Exam GENERAL EXAM: Alert, pleasant, 58-year-old gentleman, on 4 L of oxygen and the pulse ox of 100%, comfortable in no apparent distress. HEAD: Normocephalic/atraumatic. EYES: Normal reaction of pupils, equal size. Conjunctiva pink, sclera white. NOSE: Clear with pink turbinates. THROAT: No erythema or exudates. NECK: No masses, no JVD, no thyroid enlargement, no adenopathy. CHEST: No chest wall deformity. Symmetrical expansion. LUNGS: Equal air entry with rales at bilateral bases, but no wheeze, rhonchi or dullness. CVS: Regular rate and rhythm, normal S1 and S2, no gallops, no murmurs, no rubs ABDOMEN: Soft, nontender. No hepatosplenomegaly, normal bowel sounds, no guarding or rigidity. EXTREMITIES: No clubbing, 1+ pretibial and ankle edema, no cyanosis, 2+ pulses and upper and lower extremities. MUSCULOSKELETAL: Muscle strength and tone normal. SPINE: No scoliosis or deformity SKIN: No rashes CENTRAL NERVOUS SYSTEM: No focal deficits, tone is normal in all 4 extremities. PSYCHIATRIC: Alert and oriented -3. Appropriate affect. Intact judgment and insight. - Labs CBC & Chem 7: 11/18/18 06:27 11/18/18 06:27 Labs: Abnormal Lab Results - Last 24 Hours (Table) 11/17/18 11/17/18 11/17/18 Range/Units 06:54 17:09 20:03 RBC (4.30-5.90) m/uL Hgb (13.0-17.5) gm/dL Hct (39.0-53.0) % Sodium (137-145) mmol/L Potassium (3.5-5.1) mmol/L Chloride (98-107) mmol/L BUN (9-20) mg/dL Creatinine (0.66-1.25) mg/dL POC Glucose (mg/dL) 421 H 456 H (75-99) mg/dL Hemoglobin A1c 12.2 H (4.0-6.0) % Total Protein (6.3-8.2) g/dL 11/17/18 11/18/18 11/18/18 Range/Units 21:12 06:27 06:27 RBC 3.84 L (4.30-5.90) m/uL Hgb 11.4 L (13.0-17.5) gm/dL Hct 34.7 L (39.0-53.0) % Sodium 129 L (137-145) mmol/L Potassium 5.4 H (3.5-5.1) mmol/L Chloride 93 L (98-107) mmol/L BUN 59 H (9-20) mg/dL Creatinine 1.68 H (0.66-1.25) mg/dL POC Glucose (mg/dL) 380 H (75-99) mg/dL Hemoglobin A1c (4.0-6.0) % Total Protein 5.9 L (6.3-8.2) g/dL 11/18/18 Range/Units 11:52 RBC (4.30-5.90) m/uL Hgb (13.0-17.5) gm/dL Hct (39.0-53.0) % Sodium (137-145) mmol/L Potassium (3.5-5.1) mmol/L Chloride (98-107) mmol/L BUN (9-20) mg/dL Creatinine (0.66-1.25) mg/dL POC Glucose (mg/dL) 266 H (75-99) mg/dL Hemoglobin A1c (4.0-6.0) % Total Protein (6.3-8.2) g/dL Assessment and Plan Assessment: Assessment: #1 Acute on chronic hypoxic respiratory failure secondary to acute exacerbation of chronic systolic congestive heart failure along with an acute exacerbation of chronic obstructive pulmonary disease. #2 Non-ischemic cardiomyopathy with severely impaired left ventricular systolic function with ejection fraction less than 20%, status post AICD placement. #3 Elevated troponin of 0.044, could be related to acute exacerbation of chronic systolic congestive heart failure #4 Mild hyponatremia likely related to acute CHF exacerbation. Sodium 129. #5 Severe chronic obstructive pulmonary disease, oxygen dependent. #6 Chronic and ongoing tobacco dependence. #7 History of chronic alcoholism. #8 Chronic pancreatitis with history of pancreatic pseudocyst and malabsorption secondary to chronic pancreatic insufficiency. #9 Diabetes mellitus. #10 Hypertension. #11 Hyperlipidemia. #12 Degenerative arthritis. #13 Chronic renal failure, unspecified Plan: The patient was seen and evaluated by Dr. Steiner. He is feeling back to his baseline as far as his pulmonary status. He does have home oxygen and nebulized treatments.The patient is anxious to go home as his mom had a stroke yesterday. If able to be discharged he'll follow-up with Dr. Khanna in our office in 1-2 weeks' time. Complete a prednisone burst and taper. I, the cosigning physician, performed a history & physical examination of the patient. Lungs sounds with bilateral crackles in the posterior bases. Maintaining good O2 saturations in the 90s on 4 L/m per nasal cannula. I discussed the assessment and plan of care with my nurse practitioner, Elenita Anne. I attest to the above note as dictated by her.
[2018-11-18] MEDS ORDERED: predniSONE 50 MG TAB PO SCH (15:00)
--- NOTE | 2018-12-05 23:17 | P.DS ---
Providers Date of admission: 11/16/18 09:05 Expected date of discharge: 11/18/18 Attending physician: Yusuf Lind Consults: 11/16/18 09:04 Consult Physician Routine Consulting Provider: Steve Khanna Consult Reason/Comments: copd Do you want consulting provider notified?: Yes Consult Physician Routine Consulting Provider: Cal Lafleur Consult Reason/Comments: chf Do you want consulting provider notified?: Yes Primary care physician: Yusuf Lind Hospital Course: Discharge diagnosis #1 dyspnea, orthopnea, lower extremity swelling secondary to an acute exacerbation of chronic systolic congestive heart failure along with an acute exacerbation of chronic obstructive pulmonary disease. #2 Non-ischemic cardiomyopathy with severely impaired left ventricular systolic function with ejection fraction less than 20%, status post AICD placement. #3 Elevated troponin of 0.044, could be related to acute exacerbation of chronic systolic congestive heart failure #4 mild hyponatremia likely related to acute CHF exacerbation. Improving now #5 Severe chronic obstructive pulmonary disease, oxygen dependent. #6 Chronic and ongoing tobacco dependence. #7 History of chronic alcoholism. #8 Chronic pancreatitis with history of pancreatic pseudocyst and malabsorption secondary to chronic pancreatic insufficiency. #9 Diabetes mellitus. #10 Hypertension. #11 Hyperlipidemia. #12 Degenerative arthritis. #13 Chronic renal failure, unspecified Hospital course This is a history and physical [id number] white male with known history of diabetes intermittent and chronic pancreatitis with history of CHF and COPD. The patient still continues to intermittently smoke. He came in with element of dyspnea for the last 2-3 days. Evaluation emergency room did show element of recurrent congestive heart failure and COPD. The patient was admitted for treatment with cardiology and pulmonology consultation. He is tolerating diet. No significant nausea, vomiting or diarrhea stated. 11/18/2018 Patient is currently awake alert and oriented 3. Denied any complaints of chest pain. Breathing status is improving. Saturating well on 4 L nausea cannula oxygen as per his home regimen. Otherwise hemoglobin is stable. Creatinine level I.68. Potassium 5.4. Currently being continued on oral Lasix. Patient will be continued on oral steroid taper, breathing treatments and antibiotics.. Sodium level improved to 129 today. Patient is cleared from cardiology and pulmonary standpoint. Pulmonary function is stable. Patient is anxious to go home as his mother had stroke yesterday. - Exam GENERAL EXAM: Alert, pleasant, 58-year-old gentleman, on 4 L of oxygen and the pulse ox of 100%, comfortable in no apparent distress. HEAD: Normocephalic/atraumatic. EYES: Normal reaction of pupils, equal size. Conjunctiva pink, sclera white. NOSE: Clear with pink turbinates. THROAT: No erythema or exudates. NECK: No masses, no JVD, no thyroid enlargement, no adenopathy. CHEST: No chest wall deformity. Symmetrical expansion. LUNGS: Equal air entry with rales at bilateral bases, but no wheeze, rhonchi or dullness. CVS: Regular rate and rhythm, normal S1 and S2, no gallops, no murmurs, no rubs ABDOMEN: Soft, nontender. No hepatosplenomegaly, normal bowel sounds, no guarding or rigidity. EXTREMITIES: No clubbing, 1+ pretibial and ankle edema, no cyanosis, 2+ pulses and upper and lower extremities. MUSCULOSKELETAL: Muscle strength and tone normal. SPINE: No scoliosis or deformity SKIN: No rashes CENTRAL NERVOUS SYSTEM: No focal deficits, tone is normal in all 4 extremities. PSYCHIATRIC: Alert and oriented -3. Appropriate affect. Intact judgment and insight. Temp 97.9 F 11/18/18 04:00 Pulse 80 11/18/18 12:00 Resp 16 11/18/18 12:00 BP 121/75 11/18/18 12:00 Pulse Ox 100 11/18/18 12:00 Intake & Output 11/17/18 11/18/18 11/18/18 18:59 06:59 18:59 Intake Total 1330 600 Output Total 200 Balance 1330 400 Weight 62.6 kg Intake: IV 10 0.9 10 Oral 1320 600 Output: Urine 200 Other: # Voids 1 - Labs CBC & Chem 7: 11/18/18 06:27 11/18/18 06:27 Labs: Abnormal Lab Results - Last 24 Hours (Table) 11/17/18 11/17/18 11/17/18 Range/Units 06:54 17:09 20:03 RBC (4.30-5.90) m/uL Hgb (13.0-17.5) gm/dL Hct (39.0-53.0) % Sodium (137-145) mmol/L Potassium (3.5-5.1) mmol/L Chloride (98-107) mmol/L BUN (9-20) mg/dL Creatinine (0.66-1.25) mg/dL POC Glucose (mg/dL) 421 H 456 H (75-99) mg/dL Hemoglobin A1c 12.2 H (4.0-6.0) % Total Protein (6.3-8.2) g/dL 11/17/18 11/18/18 11/18/18 Range/Units 21:12 06:27 06:27 RBC 3.84 L (4.30-5.90) m/uL Hgb 11.4 L (13.0-17.5) gm/dL Hct 34.7 L (39.0-53.0) % Sodium 129 L (137-145) mmol/L Potassium 5.4 H (3.5-5.1) mmol/L Chloride 93 L (98-107) mmol/L BUN 59 H (9-20) mg/dL Creatinine 1.68 H (0.66-1.25) mg/dL POC Glucose (mg/dL) 380 H (75-99) mg/dL Hemoglobin A1c (4.0-6.0) % Total Protein 5.9 L (6.3-8.2) g/dL 11/18/18 Range/Units 11:52 RBC (4.30-5.90) m/uL Hgb (13.0-17.5) gm/dL Hct (39.0-53.0) % Sodium (137-145) mmol/L Potassium (3.5-5.1) mmol/L Chloride (98-107) mmol/L BUN (9-20) mg/dL Creatinine (0.66-1.25) mg/dL POC Glucose (mg/dL) 266 H (75-99) mg/dL Hemoglobin A1c (4.0-6.0) % Total Protein (6.3-8.2) g/dL Total time taken greater than 35 minutes including 18 minutes for counseling and coordination of care. Patient Condition at Discharge: Fair Plan - Discharge Summary Discharge Rx Participant: Yes New Discharge Prescriptions: New Doxycycline [Vibramycin] 100 mg PO BID 4 Days #8 cap Spironolactone [Aldactone] 25 mg PO DAILY tab Aspirin 81 mg PO DAILY chew predniSONE See Taper PO DIRECTED #30 tab Continue Pregabalin [Lyrica] 150 mg PO TID Zolpidem [Ambien] 10 mg PO HS PRN PRN Reason: Insomnia Docusate [Colace] 100 mg PO DAILY Metoprolol Succinate (ER) [Toprol XL] 25 mg PO DAILY #30 tab.er.24h Sacubitril/Valsartan [Entresto 24 mg-26 mg Tablet] 1 tab PO BID HYDROcodone/APAP 10-325MG [[place] 10-325] 1 tab PO Q4HR PRN #120 tab PRN Reason: Pain Gabapentin [Neurontin] 400 mg PO BID Budesonide/Formoterol Fumarate [Symbicort 160-4.5 Mcg Inhaler] 2 puff INHALATION RT-BID Polyethylene Glycol 3350 [Miralax] 17 gm PO DAILY Nitroglycerin Sl Tabs [Nitrostat] 0.4 mg SUBLINGUAL Q5M PRN PRN Reason: Chest Pain Insulin Lispro [humaLOG Kwikpen] See Protocol SQ ACHS Tamsulosin HCl [Flomax] 0.4 mg PO DAILY Furosemide [Lasix] 40 mg PO BID Lipase/Protease/Amylase [Creon Dr 36,000 Units Capsule] 36,000 units PO TID Varenicline [Chantix Continuing Pack] 1 mg PO BID Atorvastatin [Lipitor] 20 mg PO DAILY Albuterol Nebulized [Ventolin Nebulized] 2.5 mg INHALATION RT-Q6H Insulin Degludec [Tresiba] 32 units SQ Discontinued Isosorbide Mononitrate ER [Imdur] 30 mg PO DAILY #30 tab.er.24h Torsemide [Demadex] 20 mg PO BID #60 tablet Spironolactone [Aldactone] 25 mg PO BID Fluticasone/Vilanterol [Breo Ellipta 200-25 Mcg INH] 1 puff INHALATION RT- DAILY Discharge Medication List Pregabalin [Lyrica] 150 mg PO TID 03/22/18 [History] Docusate [Colace] 100 mg PO DAILY 05/04/18 [History] Zolpidem [Ambien] 10 mg PO HS PRN 05/04/18 [History] Metoprolol Succinate (ER) [Toprol XL] 25 mg PO DAILY #30 tab.er.24h 05/09/18 [Rx] Sacubitril/Valsartan [Entresto 24 mg-26 mg Tablet] 1 tab PO BID 05/14/18 [History] HYDROcodone/APAP 10-325MG [[place] 10-325] 1 tab PO Q4HR PRN #120 tab 05/18/18 [Rx] Gabapentin [Neurontin] 400 mg PO BID 07/18/18 [History] Albuterol Nebulized [Ventolin Nebulized] 2.5 mg INHALATION RT-Q6H 11/16/18 [History] Atorvastatin [Lipitor] 20 mg PO DAILY 11/16/18 [History] Budesonide/Formoterol Fumarate [Symbicort 160-4.5 Mcg Inhaler] 2 puff INHALATION RT-BID 11/16/18 [History] Furosemide [Lasix] 40 mg PO BID 11/16/18 [History] Insulin Degludec [Tresiba] 32 units SQ 11/16/18 [History] Insulin Lispro [humaLOG Kwikpen] See Protocol SQ ACHS 11/16/18 [History] Lipase/Protease/Amylase [Creon Dr 36,000 Units Capsule] 36,000 units PO TID 11/16/18 [History] Nitroglycerin Sl Tabs [Nitrostat] 0.4 mg SUBLINGUAL Q5M PRN 11/16/18 [History] Polyethylene Glycol 3350 [Miralax] 17 gm PO DAILY 11/16/18 [History] Tamsulosin HCl [Flomax] 0.4 mg PO DAILY 11/16/18 [History] Varenicline [Chantix Continuing Pack] 1 mg PO BID 11/16/18 [History] Aspirin 81 mg PO DAILY chew 11/18/18 [Rx] Doxycycline [Vibramycin] 100 mg PO BID 4 Days #8 cap 11/18/18 [Rx] Spironolactone [Aldactone] 25 mg PO DAILY tab 11/18/18 [Rx] predniSONE See Taper PO DIRECTED #30 tab 11/18/18 [Rx] Follow up Appointment(s)/Referral(s): Josh Be MD [STAFF PHYSICIAN] - 1 Week Yusuf Lind MD [Primary Care Provider] - 1-2 days Patient Instructions/Handouts: Heart Failure (ER) Discharge Disposition: HOME SELF-CARE
== END 2018-11-18 15:51 | disposition home or self-care (01) | DRG 291 ==
LOC: EC 07:24 → 3SCARD 09:05
PROVIDERS: ADMIT Family Medicine; ATTEND Family Medicine
DX: I13.0 Hypertensive heart and chronic kidney disease with heart failure and stage 1 through stage 4 chronic kidney disease, or unspecified chronic kidney disease (principal); I50.23 Acute on chronic systolic (congestive) heart failure; J96.21 Acute and chronic respiratory failure with hypoxia; J44.1 Chronic obstructive pulmonary disease with (acute) exacerbation; E87.1 Hypo-osmolality and hyponatremia; K86.1 Other chronic pancreatitis; I42.9 Cardiomyopathy, unspecified; E11.22 Type 2 diabetes mellitus with diabetic chronic kidney disease; E11.40 Type 2 diabetes mellitus with diabetic neuropathy, unspecified; E78.5 Hyperlipidemia, unspecified; F17.210 Nicotine dependence, cigarettes, uncomplicated; G47.00 Insomnia, unspecified; I49.3 Ventricular premature depolarization; J98.6 Disorders of diaphragm; K21.9 Gastro-esophageal reflux disease without esophagitis; M19.90 Unspecified osteoarthritis, unspecified site; N18.9 Chronic kidney disease, unspecified; Z79.4 Long term (current) use of insulin; Z79.51 Long term (current) use of inhaled steroids; Z79.82 Long term (current) use of aspirin; Z79.899 Other long term (current) drug therapy; Z82.49 Family history of ischemic heart disease and other diseases of the circulatory system; Z82.5 Family history of asthma and other chronic lower respiratory diseases; Z83.3 Family history of diabetes mellitus; Z86.73 Personal history of transient ischemic attack (TIA), and cerebral infarction without residual deficits; Z95.810 Presence of automatic (implantable) cardiac defibrillator; Z99.81 Dependence on supplemental oxygen; Z60.2 Problems related to living alone; Z83.6 Family history of other diseases of the respiratory system; Z88.6 Allergy status to analgesic agent; Z86.14 Personal history of Methicillin resistant Staphylococcus aureus infection; Z87.01 Personal history of pneumonia (recurrent); H93.13 Tinnitus, bilateral; M25.519 Pain in unspecified shoulder
CPT/HCPCS: 36415; 71046; 80053; 83036; 83880; 84484; 85025; 85027; 85610; 85730; 93005; 94640; 94760; 96374; 96375; 99214; 99285; 99406

== ENCOUNTER → 2018-12-04 | Outpatient (CLI) | payer MEDICARE, OTHER ==
[2018-12-04 16:08] LABS: African American GFR (CKD) 68.7 (60.0-200.0); Anion Gap 7.1 mmol/L (4.00-12.00); BUN/Creat Ratio 19.23 Ratio (12.00-20.00); Calcium 9.1 mg/dL (8.7-10.3); Carbon Dioxide 26.9 mmol/L (21.6-31.8); Potassium 5.9 mmol/L (3.5-5.5)
== END | disposition home or self-care (01) ==
LOC: LABWHC1 09:23
PROVIDERS: ATTEND Physician Assistant
DX: I11.0 Hypertensive heart disease with heart failure (principal)
CPT/HCPCS: 36415; 80048

== ENCOUNTER 2018-12-10 15:34 | Inpatient (IN) | payer MEDICARE, OTHER ==
[2018-12-10] MEDS ORDERED: FUROSEMIDE 10 MG/ML 10 ML VIAL IV STA (16:16)
[2018-12-10] MEDS ORDERED: MORPHINE SULFATE 4 MG/ML SYRINGE IV STA ×2 (16:19→18:24)
--- NOTE | 2018-12-10 16:21 | ED ---
General Adult HPI - General Chief complaint: Extremity Problem,Nontraumatic Stated complaint: water retention/CHF Time Seen by Provider: 12/10/18 16:01 Source: patient Mode of arrival: wheelchair Limitations: no limitations - History of Present Illness Initial comments: Dictation was produced using [employer] dictation software. please excuse any grammatical, word or spelling errors. Chief Complaint: 58-year-old male multiple comorbidities presents with lower extremity pain and dyspnea. History of Present Illness: Is a 58-year-old male he has multiple comorbidities. His past medical history includes AICD, nonischemic cardiomyopathy, severe COPD. Presents today with worsening lower extremity pain bilaterally and dyspn ea. Patient states he was admitted to the hospital for acute decompensated heart failure last month. At the time he was discharged he felt as though his symptoms were controlled. Over the next several weeks his symptoms slowly progressed to today. Patient states that the swelling is causing him pain to the point where he can barely walk. He denies any fever, chills or night sweats. He also complains of difficulty breathing. He states he can't get any sleep at night because when he lies flat he feels short of breath. Denies any cough. Denies any chest pain. The ROS documented in this emergency department record has been reviewed and confirmed by me. Those systems with pertinent positive or negative responses have been documented in the HPI. All other systems are other negative and/or noncontributory. PHYSICAL EXAM: General Impression: Alert and oriented x3, mildly dyspneic HEENT: Normocephalic atraumatic, extra-ocular movements intact, pupils equal and reactive to light bilaterally, mucous membranes moist. Cardiovascular: Heart regular rate and rhythm, S1&S2 audible, no murmurs, rubs or gallops Chest: Diffuse crackles Abdomen: Bowel sounds present, abdomen soft, non-tender, non-distended, no organomegaly Musculoskeletal: Pulses present and equal in all extremities, 3+ pitting edema Motor: no focal deficits noted Neurological: CN II-XII grossly intact, no focal motor or sensory deficits noted Skin: Bilateral lower extremities are slightly erythematous with slight warmth to touch. Psych: Normal affect and mood ED course: he is a 58-year-old male with multiple cardiopulmonary comorbidities. Patient lies on oxygen supplementation at home. He presents today with worsening lower extremity pain, difficulty breathing gets worse with exertion and lying in a supine position. Clinical presentation is concerning for acute decompensated heart failure. Patient has a history of 20% ejection fraction. He also has extensive history of COPD. Patient is lying on oxygen supplementation. Laboratory evaluation obtained. CBC, coag panel unremarkable. Metabolic panel shows sodium 1:30, mild Acidosis. Troponin 0.046 with a prematurity peptide of 21,000. Urinalysis shows 4+ glucose, 1+ protein. Serum alcohol is negative. Chest x-rays obtained showing chronic lung processes. Clinical presentation concerning for acute Heart Failure. Patient Given 6 Mg of IV Lasix. Patient Be Admitted for Gentle Diuresis and Cardiology Consultation. At this point clinic al presentation is concerning for cellulitis given that more likely diagnosis is heart failure. Patient and family is understandable and agreeable to disposition. EKG interpretation: Ventricular rate 13, sinus tachycardia, NV interval 160, QS 118, QTC 471. No NV prolongation, no QTC prolongation, no ST or T-wave changes noted. EKG compared to 11/16/2018 showing no changes. Overall, this EKG is unremarkable - Related Data Home Medications Medication Instructions Recorded Confirmed Pregabalin [Lyrica] 150 mg PO TID 03/22/18 12/10/18 Docusate [Colace] 100 mg PO DAILY 05/04/18 12/10/18 Zolpidem [Ambien] 10 mg PO HS PRN 05/04/18 12/10/18 Sacubitril/Valsartan [Entresto 24 1 tab PO BID 05/14/18 12/10/18 mg-26 mg Tablet] Gabapentin [Neurontin] 400 mg PO BID 07/18/18 12/10/18 Albuterol Nebulized [Ventolin 2.5 mg INHALATION RT-Q6H 11/16/18 12/10/18 Nebulized] Atorvastatin [Lipitor] 20 mg PO DAILY 11/16/18 12/10/18 Budesonide/Formoterol Fumarate 2 puff INHALATION RT-BID 11/16/18 12/10/18 [Symbicort 160-4.5 Mcg Inhaler] Furosemide [Lasix] 60 mg PO DAILY 11/16/18 12/10/18 Insulin Degludec [Tresiba] 32 units SQ QAM 11/16/18 12/10/18 Insulin Lispro [humaLOG Kwikpen] See Protocol SQ ACHS 11/16/18 12/10/18 Lipase/Protease/Amylase [[place] 36,000 units PO TID 11/16/18 12/10/18 36,000 Units Capsule] Nitroglycerin Sl Tabs [Nitrostat] 0.4 mg SUBLINGUAL Q5M PRN 11/16/18 12/10/18 Polyethylene Glycol 3350 [Miralax] 17 gm PO DAILY 11/16/18 12/10/18 Tamsulosin HCl [Flomax] 0.4 mg PO DAILY 11/16/18 12/10/18 Previous Rx's Medication Instructions Recorded Metoprolol Succinate (ER) [Toprol 25 mg PO DAILY #30 tab.er.24h 05/09/18 XL] HYDROcodone/APAP 10-325MG [[place] 1 tab PO Q4HR PRN #120 tab 05/18/18 10-325] Aspirin 81 mg PO DAILY chew 11/18/18 Spironolactone [Aldactone] 25 mg PO DAILY tab 11/18/18 Allergies Allergy/AdvReac Type Severity Reaction Status Date / Time meperidine HCl [From Demerol] AdvReac Severe Rapid Verified 12/10/18 16:09 Heart Rate/VOMITING ibuprofen [From Motrin] AdvReac Vomiting Verified 12/10/18 16:09 mayonnaise AdvReac Nausea & Verified 12/10/18 16:09 Vomiting & Diarrhea Review of Systems ROS Statement: Those systems with pertinent positive or pertinent negative responses have been documented in the HPI. ROS Other: All systems not noted in ROS Statement are negative. Past Medical History Past Medical History: Heart Failure, COPD, CVA/TIA, Diabetes Mellitus, GERD/Reflux, Hyperlipidemia, Hypertension, Osteoarthritis (OA), Pneumonia, Renal Disease Additional Past Medical History / Comment(s): Severe COPD, chronic hypoxic respiratory failure, home oxygen at 4L/NC ATC, nonishemic cardiomyopathy, AICD/pacer placement, TIA in 2018, pt denies past alcoholism, chronic pancreatitis, 3 pancreatic pseudocysts, IDDM type II, neuropathy biltaral legs/feet, chronic smoker, bilateral tinnitis occasionally, history of perforat ed left tympanic membranes-SLEETMUTE left ear, pt states he has been treated for L arm pain with physical therapy but still having problems and has decreased ROM, chronic generalized pain, migraines, sinusitis History of Any Multi-Drug Resistant Organisms: None Reported Past Surgical History: AICD, Pacemaker Additional Past Surgical History / Comment(s): colonoscopy, "lump" removed from left side of neck. Past Anesthesia/Blood Transfusion Reactions: No Reported Reaction Type of Cardiac Device: Permanent Pacemaker, AICD Device Placement Date:: 09/2016 Past Psychological History: No Psychological Hx Reported Smoking Status: Current every day smoker Past Alcohol Use History: None Reported Past Drug Use History: None Reported - Past Family History Father Family Medical History: Congestive Heart Failure (CHF), COPD, Diabetes Mellitus Additional Family Medical History / Comment(s): mrsa, asbestoes exposure/lungs Mother Family Medical History: Diabetes Mellitus, Hypertension Additional Family Medical History / Comment(s): Mother is 87yrs old. General Exam Limitations: no limitations Course Vital Signs 12/10/18 12/10/18 15:42 17:01 Temperature 97.5 F L Pulse Rate 108 H 107 H Respiratory 20 18 Rate Blood Pressure 131/90 124/98 O2 Sat by Pulse 99 100 Oximetry Medical Decision Making - Lab Data Result diagrams: 12/10/18 16:10 12/10/18 16:10 Lab Results 12/10/18 12/10/18 12/10/18 Range/Units 16:10 16:10 16:10 WBC 4.8 (3.8-10.6) k/uL RBC 4.05 L (4.30-5.90) m/uL Hgb 11.8 L (13.0-17.5) gm/dL Hct 37.4 L (39.0-53.0) % MCV 92.1 (80.0-100.0) fL MCH 29.1 (25.0-35.0) pg MCHC 31.6 (31.0-37.0) g/dL RDW 14.8 (11.5-15.5) % Plt Count 271 (150-450) k/uL Neutrophils % 62 % Lymphocytes % 24 % Monocytes % 7 % Eosinophils % 4 % Basophils % 1 % Neutrophils # 3.0 (1.3-7.7) k/uL Lymphocytes # 1.2 (1.0-4.8) k/uL Monocytes # 0.3 (0-1.0) k/uL Eosinophils # 0.2 (0-0.7) k/uL Basophils # 0.0 (0-0.2) k/uL Hypochromasia Slight PT (9.0-12.0) sec INR (<1.2) Sodium 130 L (137-145) mmol/L Potassium 5.0 (3.5-5.1) mmol/L Chloride 97 L (98-107) mmol/L Carbon Dioxide 21 L (22-30) mmol/L Anion Gap 12 mmol/L BUN 17 (9-20) mg/dL Creatinine 0.92 (0.66-1.25) mg/dL Est GFR (CKD-EPI)AfAm >90 (>60 ml/min/1.73 sqM) Est GFR (CKD-EPI)NonAf >90 (>60 ml/min/1.73 sqM) Glucose 473 H (74-99) mg/dL Calcium 8.9 (8.4-10.2) mg/dL Troponin I (0.000-0.034) ng/mL NT-Pro-B Natriuret Pep 17936 pg/mL Urine Color Urine Appearance (Clear) Urine pH (5.0-8.0) Ur Specific [place] (1.001-1.035) Urine Protein (Negative) Urine Glucose (UA) (Negative) Urine Ketones (Negative) Urine Blood (Negative) Urine Nitrite (Negative) Urine Bilirubin (Negative) Urine Urobilinogen (<2.0) mg/dL Ur Leukocyte Esterase (Negative) Ur Squamous Epith Cells (0-4) /hpf Urine Mucus (None) /hpf Serum Alcohol <10 mg/dL 12/10/18 12/10/18 12/10/18 Range/Units 16:10 16:10 16:40 WBC (3.8-10.6) k/uL RBC (4.30-5.90) m/uL Hgb (13.0-17.5) gm/dL Hct (39.0-53.0) % MCV (80.0-100.0) fL MCH (25.0-35.0) pg MCHC (31.0-37.0) g/dL RDW (11.5-15.5) % Plt Count (150-450) k/uL Neutrophils % % Lymphocytes % % Monocytes % % Eosinophils % % Basophils % % Neutrophils # (1.3-7.7) k/uL Lymphocytes # (1.0-4.8) k/uL Monocytes # (0-1.0) k/uL Eosinophils # (0-0.7) k/uL Basophils # (0-0.2) k/uL Hypochromasia PT 11.8 (9.0-12.0) sec INR 1.1 (<1.2) Sodium (137-145) mmol/L Potassium (3.5-5.1) mmol/L Chloride (98-107) mmol/L Carbon Dioxide (22-30) mmol/L Anion Gap mmol/L BUN (9-20) mg/dL Creatinine (0.66-1.25) mg/dL Est GFR (CKD-EPI)AfAm (>60 ml/min/1.73 sqM) Est GFR (CKD-EPI)NonAf (>60 ml/min/1.73 sqM) Glucose (74-99) mg/dL Calcium (8.4-10.2) mg/dL Troponin I 0.046 H* (0.000-0.034) ng/mL NT-Pro-B Natriuret Pep pg/mL Urine Color Yellow Urine Appearance Clear (Clear) Urine pH 6.0 (5.0-8.0) Ur Specific [place] 1.011 (1.001-1.035) Urine Protein 1+ H (Negative) Urine Glucose (UA) 4+ H (Negative) Urine Ketones Negative (Negative) Urine Blood Negative (Negative) Urine Nitrite Negative (Negative) Urine Bilirubin Negative (Negative) Urine Urobilinogen <2.0 (<2.0) mg/dL Ur Leukocyte Esterase Negative (Negative) Ur Squamous Epith Cells <1 (0-4) /hpf Urine Mucus Rare H (None) /hpf Serum Alcohol mg/dL Disposition Clinical Impression: Heart failure Disposition: ADMITTED IP TO THIS HOSP Condition: Fair Referrals: Yusuf Lind MD [Primary Care Provider] - 1-2 days Decision Time: 17:44
[2018-12-10 16:27] LABS: Basophils % (A) 1 %; Eosinophils # (A) 0.2 k/uL (0-0.7); Eosinophils % (A) 4 %; HCT 37.4 % (39.0-53.0); HGB 11.8 gm/dL (13.0-17.5); Hypochromasia Slight; Lymphocytes # (A) 1.2 k/uL (1.0-4.8); Lymphocytes % (A) 24 %; MCH 29.1 pg (25.0-35.0); MCHC 31.6 g/dL (31.0-37.0); MCV 92.1 fL (80.0-100.0); Mean Platelet Volume 7.1; Monocytes # (A) 0.3 k/uL (0-1.0); Monocytes % (A) 7 %; Neutrophils % (A) 62 %; Platelet Count 271 k/uL (150-450); RBC 4.05 m/uL (4.30-5.90); RDW 14.8 % (11.5-15.5); WBC 4.8 k/uL (3.8-10.6)
[2018-12-10 16:36] LABS: African American GFR (CKD) >90 (>60 ml/min/1.73 sqM); Alcohol <10 mg/dL; Anion Gap 12 mmol/L; Blood Urea Nitrogen 17 mg/dL (9-20); Calcium 8.9 mg/dL (8.4-10.2); Carbon Dioxide 21 mmol/L (22-30); Chloride 97 mmol/L (98-107); Glucose 473 mg/dL (74-99); Sodium 130 mmol/L (137-145)
[2018-12-10 16:41] LABS: INR 1.1 (<1.2); Prothrombin Time 11.8 sec (9.0-12.0)
--- NOTE | 2018-12-10 17:08 | XR ---
EXAMINATION TYPE: XR chest 2V DATE OF EXAM: 12/10/2018 COMPARISON: Chest x-ray November 16, 2018 HISTORY: History of heart failure COPD with wheezing. TECHNIQUE: Frontal and lateral views of the chest are obtained. FINDINGS: There is chronic parenchymal change without suspicious new focal airspace opacity, pleural effusion, or pneumothorax on current study. Bilateral hilar prominence suggests product of underlyin g pulmonary artery hypertension. The cardiac silhouette size is enlarged with single lead pacemaker/A ICD. The osseous structures are demineralized. IMPRESSION: Cardiomegaly and chronic changes without new acute pulmonary process.
[2018-12-10 17:25] LABS: Appearance,Urine Clear (Clear); Bilirubin,Urine Negative (Negative); Blood,Urine Negative (Negative); Color,Urine Yellow; Glucose,Urine (UA) 4+ (Negative); Ketones,Urine Negative (Negative); Leukocyte Esterase,Urine Negative (Negative); Mucus,Urine Rare /hpf; Nitrite,Urine Negative (Negative); Protein,Urine 1+ (Negative); Specific Gravity,Urine 1.011 (1.001-1.035); Squamous Epithelial Cell,Urine <1 /hpf (0-4); Urobilinogen,Urine <2.0 mg/dL (<2.0)
[2018-12-10] MEDS ORDERED: ASPIRIN 81 MG PO STA (17:35)
[2018-12-10] MEDS: SODIUM CHLORIDE 0.9% 1,000 ML IV SCH (18:33)
[2018-12-10] MEDS ORDERED: NITROGLYCERIN SL TABS 0.4 MG TAB SUBLINGUAL PRN (19:06)
[2018-12-10] MEDS ORDERED: ZOLPIDEM 10 MG TAB PO PRN (19:06)
[2018-12-10] MEDS ORDERED: IPRATROPIUM-ALBUTEROL 3 ML NEB INHALATION PRN (19:19)
[2018-12-10] MEDS ORDERED: ALPRAZolam 0.25 MG TAB PO PRN (19:19)
[2018-12-10] MEDS: SYMBICORT 160-4.5 MCG INHALER INHALATION SCH (20:11)
[2018-12-10] MEDS: IPRATROPIUM-ALBUTEROL 3 ML NEB INHALATION SCH (20:12)
[2018-12-10 20:33] LABS: Glucose,Whole Blood 597 mg/dL (75-99)
[2018-12-10] MEDS ORDERED: GABAPENTIN 400 MG CAP PO SCH (21:00)
[2018-12-10] MEDS ORDERED: INSULIN DETEMIR (LEVEMIR) 100 UNIT/ML SYR SQ SCH (21:00)
[2018-12-10] MEDS: SACUBITRIL/VALSARTAN 24 MG-26 MG TABLET PO SCH (21:32)
[2018-12-10] MEDS: HEPARIN SODIUM,PORCINE 5,000 UNIT/ML 1 ML VIAL SQ SCH (21:32)
[2018-12-10] MEDS: FUROSEMIDE 10 MG/ML 4 ML VIAL IV SCH (21:33)
[2018-12-10] MEDS: INSULIN ASPART (NovoLOG) 100 UNIT/ML VIAL SQ SCH (21:34)
[2018-12-10] MEDS ORDERED: INSULIN DETEMIR (LEVEMIR) 100 UNIT/ML SYR SQ STA (21:37)
[2018-12-10] MEDS ORDERED: PREGABALIN 75 MG CAP PO SCH (22:00)
[2018-12-10] MEDS: MORPHINE SULFATE 4 MG/ML SYRINGE IVP PRN (22:23)
--- NOTE | 2018-12-10 22:30 | HP ---
HISTORY AND PHYSICAL I am covering for Dr. Lind. DATE OF SERVICE: 12/10/2018 CHIEF COMPLAINT: Shortness of breath and cough and leg edema. HISTORY OF PRESENT ILLNESS: This 58-year-old gentleman with a past medical history of multiple medical problems including CHF, COPD, CVA, TIA, diabetes mellitus, history of GERD, hypertension, hyperlipidemia, history of pneumonia, history of chronic hypoxic respiratory failure, history AICD placement, being followed by Dr. Lind in the outpatient setting, was complaining of increasing shortness of breath over the past several days. The patient also complains of cough and some sputum and because of increasing cough and bilateral leg swelling, patient came to [facility] and was admitted to the hospital for further evaluation and treatment. The patient had decompensated heart failure last month. There is no history of fever, rigors or chills. No history of headache, loss of consciousness or seizures at this time. BNP was elevated. Chest x-ray done in the ER showed evidence of CHF. Patient was admitted to the hospital for further evaluation and treatment. There is no history of any fever, rigor or chills at this time. No history of chest pain or palpitations. PAST MEDICAL HISTORY: Past medical history of CHF, COPD, CVA, TIA, diabetes type 2, GERD, hypertension, hyperlipidemia, DJD, history AICD, pacemaker. MEDICATIONS: Prior to admission home medications are: 1. Tresiba 28 units subcu q.h.s. 2. Nitrostat 0.4 mg sublingual p.r.n. 3. Ambien 10 mg q.h.s. p.r.n. 4. Flomax 0.4 daily. 5. Entresto 24/26 p.o. b.i.d. 6. Lyrica 150 mg p.o. t.i.d. 7. MiraLAX 17 g p.o. daily. 8. Toprol-XL 25 mg p.o. daily. 9. Creon 36,000 t.i.d. 10.Humalog a.c. and q.h.s. 11.Ellsworth 10 mg q.4 p.r.n. 12.Neurontin 400 mg p.o. b.i.d. 13.Lasix 60 mg p.o. daily. 14.Colace 100 mg p.o. b.i.d. 15.Symbicort 160/4.5 two puffs b.i.d. 16.Lipitor 20 mg p.o. daily. 17.Aspirin 81 mg p.o. daily. 18.Albuterol 2.5 q.6h. ALLERGIES: DEMEROL, MOTRIN, MAYONNAISE. FAMILY HISTORY: History of CHF, COPD, diabetes mellitus, MRSA in the family. SOCIAL HISTORY: History of smoking, continued ongoing. REVIEW OF SYSTEMS: ENT: No diminished hearing. No diminished vision. CARDIOVASCULAR as mentioned earlier. RESPIRATORY: As mentioned earlier. GI no nausea or vomiting. no dysuria. NERVOUS SYSTEM: No numbness or weakness. ALLERGY/IMMUNOLOGY: No asthma or hayfever. MUSCULOSKELETAL as mentioned earlier. HEMATOLOGY/ONCOLOGY: No history of any anemia. ENDOCRINE: As mentioned earlier. CONSTITUTIONAL: As mentioned earlier. DERMATOLOGY: Negative. RHEUMATOLOGY: Negative. PSYCHIATRY: As mentioned earlier. PHYSICAL EXAMINATION: Pulse 103, blood pressure 121/82, respiration 22, temp 97.8. Pulse ox 100 percent on 4 L. HEENT is conjunctivae normal. Oral mucosa moist. NECK is jugular venous distention at the root of the neck. No bruit. CARDIOVASCULAR SYSTEMS: S1, S2 normal. S3 present. Ejection systolic murmur. RESPIRATIONS: Breathing efforts are markedly increased. Bilateral scattered rhonchi and crackles. Coarse crackles present. ABDOMEN: Soft, nontender. No mass palpable. LEGS: Bilateral leg swelling present. Pulses felt diminished. NERVOUS SYSTEM: Higher functions as mentioned earlier. Moves all 4 limbs. No focal motor or sensory deficits. LYMPHATICS: No lymph nodes palpable in the neck, axillae or groin. SKIN: No ulcer, no rash. No bleeding. JOINTS: No active deforming arthropathy. LABS: WBC 4.2, hemoglobin 11.8, sodium 130, potassium 5 and glucose 473. ASSESSMENT: 1. Congestive heart failure, acute exacerbation. 2. Chronic obstructive pulmonary disease with acute purulent tracheobronchitis. 3. Hyponatremia. 4. Troponin 0.05 indeterminate. 5. Diabetes mellitus type 2, uncontrolled with hyperglycemia. 6. Hyponatremia. 7. History of cerebrovascular accident/transient ischemic attack. 8. Gastroesophageal reflux disease. 9. Hyperlipidemia. 10.Degenerative joint disease. 11.History of pneumonia. 12.History of renal disease. 13.History of chronic hypoxic respiratory failure on home O2 4 L nasal cannula. 14.History of nonischemic cardiomyopathy. 15.History AICD. 16.History of pancreatic pseudocyst. 17.Chronic pancreatitis. 18.History of nicotine dependence. 19.Asthma. 20.Mild to moderate protein calorie malnutrition with a BMI of 17.7. RECOMMENDATIONS AND DISCUSSION: In this 58-year-old gentleman who presented with multiple complex medical issues, we will monitor the patient closely, continue the current medications, management and symptomatic treatment. Initiate IV diuretics. Resume the home medication and bronchodilators. I would also recommend empiric antibiotics. We will continue to monitor. See orders for details. Dr. Lind will follow tomorrow. Overall prognosis guarded because of multiple complex medical issues. Further recommendations to follow. Dietary evaluation for malnutrition. MMODL / IJN: [id number] /
[2018-12-11 00:02] LABS: Glucose,Whole Blood 384 mg/dL (75-99)
[2018-12-11] MEDS ORDERED: INSULIN REGULAR 100 UNIT in SODIUM CHLORIDE 0.9% 100 ML IV SCH (00:15)
[2018-12-11] MEDS: HYDROcodone/APAP 10-325MG 1 EACH TAB PO PRN (01:03)
[2018-12-11] MEDS: HEPARIN SODIUM,PORCINE 5,000 UNIT/ML 1 ML VIAL SQ SCH ×3 (01:32→16:04)
[2018-12-11] MEDS: HYDROmorphone 0.5 MG/0.5 ML SYRINGE IVP PRN ×4 (01:36→12:30)
[2018-12-11 02:12] LABS: Glucose,Whole Blood 128 mg/dL (75-99)
[2018-12-11 03:18] LABS: Glucose,Whole Blood 37 mg/dL (75-99)
[2018-12-11 03:33] LABS: Glucose,Whole Blood 44 mg/dL (75-99)
--- NOTE | 2018-12-11 03:43 | US ---
EXAM: US Duplex Bilateral Lower Extremities Veins CLINICAL HISTORY: ITS.REASON US Reason: PAIN/REDNESS TECHNIQUE: Real-time duplex ultrasound scan of the bilateral lower extremity veins integrating B-mode two-dimensional vascular structure, Doppler spectral analysis, color flow Doppler imaging and compression. COMPARISON: No relevant prior studies available. FINDINGS: Right deep veins: No DVT in the right common femoral, femoral, proximal deep femoral or popliteal veins. The veins demonstrate normal color flow, are normally compressible, with normal phasic flow and/or augmentation response. Right superficial veins: No thrombus in the visualized right great saphenous vein. Left deep veins: No DVT in the left common femoral, femoral, proximal deep femoral or popliteal veins. The veins demonstrate normal color flow, are normally compressible, with normal phasic flow and/or augmentation response. Left superficial veins: No thrombus in the visualized left great saphenous vein. Soft tissues: Edematous soft tissues. IMPRESSION: No DVT bilaterally.
[2018-12-11 03:58] LABS: Glucose,Whole Blood 55 mg/dL (75-99)
[2018-12-11 04:07] LABS: Basophils # (A) 0.1 k/uL (0-0.2); Basophils % (A) 1 %; Eosinophils # (A) 0.2 k/uL (0-0.7); Eosinophils % (A) 4 %; HCT 34.1 % (39.0-53.0); HGB 10.5 gm/dL (13.0-17.5); Lymphocytes # (A) 2.1 k/uL (1.0-4.8); Lymphocytes % (A) 34 %; MCH 27.6 pg (25.0-35.0); MCHC 30.6 g/dL (31.0-37.0); MCV 90.1 fL (80.0-100.0); Mean Platelet Volume 6.8; Monocytes # (A) 0.6 k/uL (0-1.0); Monocytes % (A) 10 %; Neutrophils # (A) 2.8 k/uL (1.3-7.7); Neutrophils % (A) 47 %; Platelet Count 244 k/uL (150-450); RBC 3.79 m/uL (4.30-5.90); RDW 14.8 % (11.5-15.5)
[2018-12-11 04:14] LABS: Calcium 9.2 mg/dL (8.4-10.2); Potassium 3.7 mmol/L (3.5-5.1)
[2018-12-11 04:18] LABS: Glucose,Whole Blood 81 mg/dL (75-99)
[2018-12-11 05:01] LABS: Glucose,Whole Blood 63 mg/dL (75-99)
[2018-12-11 05:56] LABS: Glucose,Whole Blood 134 mg/dL (75-99)
[2018-12-11] MEDS ORDERED: INSULIN DETEMIR (LEVEMIR) 100 UNIT/ML SYR SQ SCH (07:00)
--- NOTE | 2018-12-11 07:23 | P.PN ---
Subjective Progress Note Date: 12/11/18 Principal diagnosis: LE pain with edema This is a continue progress on a 58-year-old white male with history of COPD protocol controlled diabetes and decompensated heart failure who is here essentially because of recurrence of shortness of breath. He is maintained complaint today however is lower extremity episodic pain. He suspect this is related to neuropathy from diabetes. Breathing is much more stable today. However, he is also complaining of his lower extremity edema. Objective - Vital Signs Vital signs: Vital Signs Temp 97.9 F 12/11/18 04:00 Pulse 99 12/11/18 04:00 Resp 21 12/11/18 04:00 BP 122/76 12/11/18 04:00 Pulse Ox 97 12/11/18 04:00 Intake & Output 12/10/18 12/11/18 12/11/18 18:59 06:59 18:59 Intake Total 944.533 Output Total 300 Balance 644.533 Weight 54.431 kg 60 kg Intake: Intake, IV Titration 124.533 Amount Insulin Regular 100 unit 24.533 In Sodium Chloride 0.9% 100 ml @ Titrate IV .Q0M JOSY Rx#:[id number] cefTRIAXone 1 gm In 100 Sodium Chloride 0.9% 50 ml @ 100 mls/hr IVPB Q24HR JOSY Rx#:[id number] Oral 820 Output: Urine 300 Other: Voiding Method Toilet # Voids 3 - Constitutional General appearance: Present: thin - EENT Eyes: Absent: abnormal pupil - Neck Neck: Absent: lymphadenopathy - Respiratory Respiratory: bilateral: rhonchi, prolonged expiration - Cardiovascular Rhythm: irregularly irregular Heart sounds: normal: S1, S2 Abnormal Heart Sounds: Absent: S3 Gallop - Gastrointestinal General gastrointestinal: Present: soft. Absent: tenderness - Integumentary Integumentary Comment(s): Edema is noted. - Neurologic Neurologic: Present: CNII-XII intact - Musculoskeletal Musculoskeletal: Present: generalized weakness - Psychiatric Psychiatric: Present: A&O x's 3, intact judgment & insight - Labs CBC & Chem 7: 12/11/18 03:53 12/11/18 03:53 Labs: Abnormal Lab Results - Last 24 Hours (Table) 12/10/18 12/10/18 12/10/18 Range/Units 16:10 16:10 16:10 RBC 4.05 L (4.30-5.90) m/uL Hgb 11.8 L (13.0-17.5) gm/dL Hct 37.4 L (39.0-53.0) % MCHC (31.0-37.0) g/dL Sodium 130 L (137-145) mmol/L Chloride 97 L (98-107) mmol/L Carbon Dioxide 21 L (22-30) mmol/L BUN (9-20) mg/dL Creatinine (0.66-1.25) mg/dL Glucose 473 H (74-99) mg/dL POC Glucose (mg/dL) (75-99) mg/dL Troponin I 0.046 H* (0.000-0.034) ng/mL Urine Protein (Negative) Urine Glucose (UA) (Negative) Urine WBC (0-5) /hpf Urine Mucus (None) /hpf 12/10/18 12/10/18 12/10/18 Range/Units 16:40 20:32 22:20 RBC (4.30-5.90) m/uL Hgb (13.0-17.5) gm/dL Hct (39.0-53.0) % MCHC (31.0-37.0) g/dL Sodium (137-145) mmol/L Chloride (98-107) mmol/L Carbon Dioxide (22-30) mmol/L BUN (9-20) mg/dL Creatinine (0.66-1.25) mg/dL Glucose (74-99) mg/dL POC Glucose (mg/dL) 597 H (75-99) mg/dL Troponin I 0.061 H* (0.000-0.034) ng/mL Urine Protein 1+ H (Negative) Urine Glucose (UA) 4+ H (Negative) Urine WBC 11 H (0-5) /hpf Urine Mucus Rare H (None) /hpf 12/11/18 12/11/18 12/11/18 Range/Units 00:01 02:10 03:17 RBC (4.30-5.90) m/uL Hgb (13.0-17.5) gm/dL Hct (39.0-53.0) % MCHC (31.0-37.0) g/dL Sodium (137-145) mmol/L Chloride (98-107) mmol/L Carbon Dioxide (22-30) mmol/L BUN (9-20) mg/dL Creatinine (0.66-1.25) mg/dL Glucose (74-99) mg/dL POC Glucose (mg/dL) 384 H 128 H 37 L (75-99) mg/dL Troponin I (0.000-0.034) ng/mL Urine Protein (Negative) Urine Glucose (UA) (Negative) Urine WBC (0-5) /hpf Urine Mucus (None) /hpf 12/11/18 12/11/18 12/11/18 Range/Units 03:32 03:53 03:53 RBC 3.79 L (4.30-5.90) m/uL Hgb 10.5 L (13.0-17.5) gm/dL Hct 34.1 L (39.0-53.0) % MCHC 30.6 L (31.0-37.0) g/dL Sodium (137-145) mmol/L Chloride (98-107) mmol/L Carbon Dioxide (22-30) mmol/L BUN (9-20) mg/dL Creatinine (0.66-1.25) mg/dL Glucose (74-99) mg/dL POC Glucose (mg/dL) 44 L (75-99) mg/dL Troponin I 0.065 H* (0.000-0.034) ng/mL Urine Protein (Negative) Urine Glucose (UA) (Negative) Urine WBC (0-5) /hpf Urine Mucus (None) /hpf 12/11/18 12/11/18 12/11/18 Range/Units 03:53 03:57 04:59 RBC (4.30-5.90) m/uL Hgb (13.0-17.5) gm/dL Hct (39.0-53.0) % MCHC (31.0-37.0) g/dL Sodium 135 L (137-145) mmol/L Chloride (98-107) mmol/L Carbon Dioxide (22-30) mmol/L BUN 22 H (9-20) mg/dL Creatinine 1.33 H (0.66-1.25) mg/dL Glucose 50 L (74-99) mg/dL POC Glucose (mg/dL) 55 L 63 L (75-99) mg/dL Troponin I (0.000-0.034) ng/mL Urine Protein (Negative) Urine Glucose (UA) (Negative) Urine WBC (0-5) /hpf Urine Mucus (None) /hpf 12/11/18 Range/Units 05:54 RBC (4.30-5.90) m/uL Hgb (13.0-17.5) gm/dL Hct (39.0-53.0) % MCHC (31.0-37.0) g/dL Sodium (137-145) mmol/L Chloride (98-107) mmol/L Carbon Dioxide (22-30) mmol/L BUN (9-20) mg/dL Creatinine (0.66-1.25) mg/dL Glucose (74-99) mg/dL POC Glucose (mg/dL) 134 H (75-99) mg/dL Troponin I (0.000-0.034) ng/mL Urine Protein (Negative) Urine Glucose (UA) (Negative) Urine WBC (0-5) /hpf Urine Mucus (None) /hpf Microbiology - Last 24 Hours (Table) 12/10/18 16:40 Urine Culture - Preliminary Urine,Voided Assessment and Plan (1) Heart failure Current Visit: Yes Status: Acute Code(s): I50.9 - HEART FAILURE, UNSPECIFIED SNOMED Code(s): 11551444 (2) Congestive heart failure Current Visit: No Status: Acute Code(s): I50.9 - HEART FAILURE, UNSPECIFIED SNOMED Code(s): 64326511 (3) Diabetic neuropathy Current Visit: No Status: Acute Code(s): E11.40 - TYPE 2 DIABETES MELLITUS WITH DIABETIC NEUROPATHY, UNSP SNOMED Code(s): 601411936 (4) High risk for readmission Current Visit: No Status: Acute Code(s): Z91.89 - OTH PERSONAL RISK FACTORS, NOT ELSEWHERE CLASSIFIED SNOMED Code(s): 086963445 (5) NICM (nonischemic cardiomyopathy) Current Visit: No Status: Acute Code(s): I42.9 - CARDIOMYOPATHY, UNSPECIFIED SNOMED Code(s): 14322231 Plan: Continue diuresis. Appreciate consultants input. Adjust medication for neuropathy. Check CBC and CMP in a.m. Prognosis is guarded secondary to his multiple comorbidities. Time with Patient: Greater than 30
[2018-12-11] MEDS: SYMBICORT 160-4.5 MCG INHALER INHALATION SCH ×2 (08:06→19:39)
[2018-12-11] MEDS: IPRATROPIUM-ALBUTEROL 3 ML NEB INHALATION SCH ×4 (08:06→19:40)
[2018-12-11] MEDS: FUROSEMIDE 10 MG/ML 4 ML VIAL IV SCH ×2 (08:30→16:04)
[2018-12-11] MEDS: ASPIRIN 81 MG PO SCH (08:31)
[2018-12-11] MEDS: DOCUSATE 100 MG CAP PO SCH (08:31)
[2018-12-11] MEDS: METOPROLOL SUCCINATE (ER) 25 MG TAB.ER.24H PO SCH (08:31)
[2018-12-11] MEDS: ATORVASTATIN 20 MG TAB PO SCH (08:31)
[2018-12-11] MEDS: POLYETHYLENE GLYCOL 3350 17 GM POWD.PACK PO SCH (08:32)
[2018-12-11] MEDS: PREGABALIN 100 MG CAP PO SCH ×3 (08:32→22:29)
[2018-12-11] MEDS ORDERED: ASPIRIN 325 MG TAB PO SCH (09:00)
[2018-12-11] MEDS ORDERED: TAMSULOSIN 0.4 MG CAP.ER.24H PO SCH (09:00)
--- NOTE | 2018-12-11 09:05 | P.CRDCN ---
History of Present Illness Consult date: 12/11/18 Requesting physician: Yusuf Lind Consult reason: congestive heart failure Chief complaint: Bilateral leg pain, shortness of breath History of present illness: This is a 58-year-old gentleman with known history of nonischemic cardiomyopathy and prior AICD implantation, history of EtOH abuse, chronic systolic congestive heart failure, prior TIA, hypertension, diabetes, COPD on home O2, chronic diaphragmatic paralysis, hyperlipidemia, chronic pancreatitis, nicotine dependence. He presented to the hospital on this occasion with symptoms of severe bilateral leg pain with associated swelling, he also states that he's been having a mild increase in his shortness of breath. Chest x-ray on presentation here showed cardiomegaly and chronic changes without any new acute pulmonary process. EKG shows a sinus tachycardia with left ventricular hypertrophy, occasional PVC and nonspecific ST-T wave changes. Bilateral venous duplex study was negative for DVT bilaterally. Blood pressure on arrival 130/90, heart rate 108, 99% on 4 L of oxygen. Temperature 97.5. White blood cell count is normal, hemoglobin 10.5, platelet count 244. Sodium 135, potassium 5 on admission, 3.7 this morning. BUN on admission 17 with a creatinine of 0.9, 22 and 1.3 this morning. Blood glucose on arrival 597. Troponins 0.046, 0.061, 0.065. BNP level 21,000. Serum alcohol level was less than 10. At the time of my examination this morning, patient is complaining of aching all over, primarily in his bilateral lower legs, he complains of his hips hurting. The patient denies any chest discomfort. Past Medical History Past Medical History: Heart Failure, COPD, CVA/TIA, Diabetes Mellitus, GERD/Reflux, Hyperlipidemia, Hypertension, Osteoarthritis (OA), Pneumonia, Renal Disease Additional Past Medical History / Comment(s): Severe COPD, chronic hypoxic respiratory failure, home oxygen at 4L/NC ATC, nonishemic cardiomyopathy, AI CD/pacer placement, TIA in 2018, pt denies past alcoholism, chronic pancreatitis, 3 pancreatic pseudocysts, IDDM type II, neuropathy biltaral legs/feet, chronic smoker, bilateral tinnitis occasionally, history of perforated left tympanic membranes-[place] left ear, pt states he has been treated for L arm pain with physical therapy but still having problems and has decreased ROM, chronic generalized pain, migraines, sinusitis History of Any Multi-Drug Resistant Organisms: None Reported Past Surgical History: AICD, Pacemaker Additional Past Surgical History / Comment(s): colonoscopy, "lump" removed from left side of neck. Past Anesthesia/Blood Transfusion Reactions: No Reported Reaction Type of Cardiac Device: Permanent Pacemaker, AICD Device Placement Date:: 09/2016 Past Psychological History: No Psychological Hx Reported Additional Psychological History / Comment(s): Pt resides alone. He has a nebulizer, home oxygen and a glucometer. He states he drives. Smoking Status: Current some day smoker Past Alcohol Use History: None Reported Additional Past Alcohol Use History / Comment(s): Pt started smoking in 1968. He has quit several times over the years. Pt states in the past he would drink 6 beers a day but none for "a long time" Past Drug Use History: None Reported Additional Drug Use History / Comment(s): in the used cocaine. - Past Family History Father Family Medical History: Congestive Heart Failure (CHF), COPD, Diabetes Mellitus Additional Family Medical History / Comment(s): mrsa, asbestoes exposure/lungs Mother Family Medical History: Diabetes Mellitus, Hypertension Additional Family Medical History / Comment(s): Mother is 87yrs old. Medications and Allergies Home Medications Medication Instructions Recorded Confirmed Type Pregabalin [Lyrica] 150 mg PO TID 03/22/18 12/10/18 History Docusate [Colace] 100 mg PO DAILY 05/04/18 12/10/18 History Zolpidem [Ambien] 10 mg PO HS PRN 05/04/18 12/10/18 History Metoprolol Succinate (ER) [Toprol 25 mg PO DAILY #30 tab.er.24h 05/09/18 12/10/18 Rx XL] Sacubitril/Valsartan [Entresto 24 1 tab PO BID 05/14/18 12/10/18 History mg-26 mg Tablet] HYDROcodone/APAP 10-325MG [[place] 1 tab PO Q4HR PRN #120 tab 05/18/18 12/10/18 Rx 10-325] Gabapentin [Neurontin] 400 mg PO BID 07/18/18 12/10/18 History Albuterol Nebulized [Ventolin 2.5 mg INHALATION RT-Q6H 11/16/18 12/10/18 History Nebulized] Atorvastatin [Lipitor] 20 mg PO DAILY 11/16/18 12/10/18 History Budesonide/Formoterol Fumarate 2 puff INHALATION RT-BID 11/16/18 12/10/18 History [Symbicort 160-4.5 Mcg Inhaler] Furosemide [Lasix] 60 mg PO DAILY 11/16/18 12/10/18 History Insulin Degludec [Tresiba] 28 units SQ QAM 11/16/18 12/10/18 History Insulin Lispro [humaLOG Kwikpen] See Protocol SQ ACHS 11/16/18 12/10/18 History Lipase/Protease/Amylase [Creon Dr 36,000 units PO TID 11/16/18 12/10/18 History 36,000 Units Capsule] Nitroglycerin Sl Tabs [Nitrostat] 0.4 mg SUBLINGUAL Q5M PRN 11/16/18 12/10/18 History Polyethylene Glycol 3350 [Miralax] 17 gm PO DAILY 11/16/18 12/10/18 History Tamsulosin HCl [Flomax] 0.4 mg PO DAILY 11/16/18 12/10/18 History Aspirin 81 mg PO DAILY chew 11/18/18 12/10/18 Rx Allergies Allergy/AdvReac Type Severity Reaction Status Date / Time meperidine HCl [From Demerol] AdvReac Severe Rapid Verified 12/10/18 16:09 Heart Rate/VOMITING ibuprofen [From Motrin] AdvReac Vomiting Verified 12/10/18 16:09 mayonnaise AdvReac Nausea & Verified 12/10/18 16:09 Vomiting & Diarrhea Physical Exam Vitals: Vital Signs Temp Pulse Pulse Resp BP BP Pulse Ox 12/11/18 08:19 92 12/11/18 08:07 88 12/11/18 04:00 97.9 F 99 21 122/76 97 12/10/18 23:52 98.0 F 100 20 117/70 98 12/10/18 23:38 100 12/10/18 23:27 100 12/10/18 20:26 104 H 12/10/18 20:12 104 H 12/10/18 20:00 97.5 F L 107 H 22 110/72 99 12/10/18 18:50 97.9 F 103 H 22 121/81 100 12/10/18 18:18 110 H 18 108/72 100 12/10/18 17:01 107 H 18 124/98 100 12/10/18 15:42 97.5 F L 108 H 20 131/90 99 Intake and Output 12/10/18 12/11/18 12/11/18 22:59 06:59 14:59 Intake Total 820 124.533 Output Total 300 Balance 520 124.533 Intake: Intake, IV Titration 124.533 Amount Insulin Regular 100 unit 24.533 In Sodium Chloride 0.9% 100 ml @ Titrate IV .Q0M JOSY Rx#:[id number] cefTRIAXone 1 gm In 100 Sodium Chloride 0.9% 50 ml @ 100 mls/hr IVPB Q24HR JOSY Rx#:[id number] Oral 820 Output: Urine 300 Other: Voiding Method Toilet Toilet # Voids 1 3 Weight 54.431 kg 60 kg PHYSICAL EXAMINATION: GENERAL: 58-year-old gentleman complaining of significant bilateral leg pain at the time of my examination. HEENT: Head is atraumatic, normocephalic. Pupils equal, round. Sclera anicteric. Conjunctiva are clear. Mucous membranes of the mouth are moist. Neck is supple. There is no elevated jugular venous pressure.] bruit is heard. HEART EXAMINATION: Heart S1, S2 normal. No murmur or gallop heard. CHEST EXAMINATION: His reveal crackles bilaterally with diminished air entry to the bases. ABDOMEN: Soft, nontender. Bowel sounds are heard. No organomegaly noted. EXTREMITIES:[ 2+ peripheral pulses with 1+ evidence of peripheral edema , bilateral leg pain NEUROLOGIC patient is awake, alert and oriented 3 . . Results 12/11/18 03:53 12/11/18 03:53 Cardiac Enzymes 12/10/18 12/10/18 12/11/18 Range/Units 16:10 22:20 03:53 Troponin I 0.046 H* 0.061 H* 0.065 H* (0.000-0.034) ng/mL Coagulation 12/10/18 Range/Units 16:10 PT 11.8 (9.0-12.0) sec CBC 12/10/18 12/11/18 Range/Units 16:10 03:53 WBC 4.8 6.0 (3.8-10.6) k/uL RBC 4.05 L 3.79 L (4.30-5.90) m/uL Hgb 11.8 L 10.5 L (13.0-17.5) gm/dL Hct 37.4 L 34.1 L (39.0-53.0) % Plt Count 271 244 (150-450) k/uL Comprehensive Metabolic Panel 12/10/18 12/11/18 Range/Units 16:10 03:53 Sodium 130 L 135 L (137-145) mmol/L Potassium 5.0 3.7 (3.5-5.1) mmol/L Chloride 97 L 99 (98-107) mmol/L Carbon Dioxide 21 L 28 (22-30) mmol/L BUN 17 22 H (9-20) mg/dL Creatinine 0.92 1.33 H (0.66-1.25) mg/dL Glucose 473 H 50 L (74-99) mg/dL Calcium 8.9 9.2 (8.4-10.2) mg/dL Current Medications Generic Name Dose Route Start Last Admin Trade Name Freq PRN Reason Stop Dose Admin Hydrocodone Bitart/Acetaminophen 1 each 12/10/18 19:06 12/11/18 01:03 [place] 10 PO 1 each Q4HR PRN Administration Moderate Pain Albuterol/Ipratropium 3 ml 12/10/18 20:00 12/11/18 08:06 Duoneb 0.5 Mg-3 Mg/3 Ml Soln INHALATION 3 ml RT-QID JOSY Administration Albuterol/Ipratropium 3 ml 12/10/18 19:19 12/10/18 23:25 Duoneb 0.5 Mg-3 Mg/3 Ml Soln INHALATION 3 ml RT-QID PRN Administration Shortness Of Breath Or Wheezing Alprazolam 0.25 mg 12/10/18 19:19 Xanax PO TID PRN Anxiety Lipase/Protease/Amylase 7 each 12/11/18 07:30 Tejinder Linda 5,000 Unit Capsule PO AC-TID [facility] Aspirin 325 mg 12/11/18 09:00 Aspirin PO DAILY [facility] [place] Aspirin 81 mg 12/11/18 09:00 Aspirin PO DAILY [facility] [place] Atorvastatin Calcium 20 mg 12/11/18 09:00 Lipitor PO DAILY [facility] [place] Budesonide/Formoterol Fumarate 2 puff 12/10/18 20:00 12/11/18 08:06 Symbicort 160-4.5 Mcg Inhaler INHALATION 2 puff RT-BID JOSY Administration Docusate Sodium 100 mg 12/11/18 09:00 Colace PO DAILY [facility] [place] Furosemide 40 mg 12/11/18 00:00 12/10/18 21:33 Lasix IV 40 mg Q8HR JOSY Administration Heparin Sodium (Porcine) 5,000 unit 12/10/18 19:15 12/11/18 01:32 Heparin SQ Not Given Q8HR JOSY Hydromorphone HCl 0.5 mg 12/11/18 01:30 12/11/18 04:49 Dilaudid IVP 0.5 mg Q3HR PRN Administration Pain Sodium Chloride 1,000 mls @ 20 mls/hr 12/10/18 17:45 12/10/18 18:33 Saline 0.9% IV Not Given .Q24H JOSY Ceftriaxone Sodium 1 gm/ 50 mls @ 100 mls/hr 12/10/18 20:00 12/10/18 22:19 Sodium Chloride IVPB 100 mls/hr Q24HR JOSY Administration Insulin Human Regular 100 unit 101 mls @ 0 mls/hr 12/11/18 00:15 12/11/18 03:52 / Sodium Chloride IV 0 units/hr .Q0M JOSY 0 mls/hr Titration Protocol Titrate Insulin Aspart 0 unit 12/10/18 21:00 12/10/18 21:34 Novolog SQ 12 unit ACHS JOSY Administration Protocol Insulin Aspart 7 unit 12/11/18 07:30 Novolog 0.13 unit/kg (7 unit) SQ AC-TID [facility] Insulin Detemir 28 unit 12/11/18 21:00 Levemir SQ HS [facility] [place] Metoprolol Succinate 25 mg 12/11/18 09:00 Toprol Xl PO DAILY [facility] [place] Morphine Sulfate 4 mg 12/10/18 18:24 12/10/18 22:23 Morphine Sulfate (Inj) IVP 4 mg Q4HR PRN Administration Pain Nitroglycerin 0.4 mg 12/10/18 19:06 Nitrostat SUBLINGUAL Q5M PRN Chest Pain Pantoprazole Sodium 40 mg 12/11/18 07:30 Protonix PO AC-BRKFST [facility] [place] Polyethylene Glycol 17 gm 12/11/18 09:00 Miralax PO DAILY [facility] [place] Pregabalin 200 mg 12/11/18 09:00 Lyrica PO TID [facility] [place] Sacubitril/Valsartan 1 each 12/10/18 21:00 12/10/18 21:32 Entresto 24 Mg-26 Mg Tablet PO 1 each BID [facility] [place] Administration Tamsulosin HCl 0.4 mg 12/11/18 09:00 Flomax PO DAILY [facility] [place] Zolpidem Tartrate 10 mg 12/10/18 19:06 Ambien PO HS PRN Insomnia Intake and Output 12/10/18 12/11/18 12/11/18 22:59 06:59 14:59 Intake Total 820 124.533 Output Total 300 Balance 520 124.533 Intake: Intake, IV Titration 124.533 Amount Insulin Regular 100 unit 24.533 In Sodium Chloride 0.9% 100 ml @ Titrate IV .Q0M [facility] [place] Rx#:[id number] cefTRIAXone 1 gm In 100 Sodium Chloride 0.9% 50 ml @ 100 mls/hr IVPB Q24HR [facility] [place] Rx#:[id number] Oral 820 Output: Urine 300 Other: Voiding Method Toilet Toilet # Voids 1 3 Weight 54.431 kg 60 kg 12/11/18 03:53 12/11/18 03:53 EKG Interpretations (text) EKG shows normal sinus rhythm with LVH strain pattern, occasional PVC and nonspecific ST-T wave changes Assessment and Plan Plan: Assessment and plan #1 systolic congestive heart failure acute on chronic #2 bilateral leg pain #3 patient has a history of chronic pain #4 nonischemic cardiomyopathy with severely impaired left ventricular systolic function, EF less than 20%, status post AICD implant #5 severe COPD, oxygen dependent #6 chronic alcoholism #7 nicotine dependence #8 hypertension #9 diabetes, uncontrolled #10 hyperlipidemia #11 degenerative arthritis #12 chronic pancreatitis with a history of pancreatic pseudocyst and malabsorption #13 acute on chronic renal insufficiency #14, abnormality in troponin, likely secondary to congestive heart failure and severe COPD, patient is known to have cyst and abnormality in his troponins for over a year. Plan Patient's most recent echocardiogram with Doppler study was performed in April, it revealed an ejection fraction of less than 20%, severe global hypokinesia. We will repeat an echo with this time. Patient's blood pressure this morning is 88/60, he denies any dizziness or lightheadedness. The patient is on both the full aspirin and a baby aspirin, we will discontinue the full aspirin, continue current dose of IV Lasix, we will write some parameters on the patient's Entresto, to hold for systolic less than 90. Discontinue Flomax this morning. Further recommendations to follow. DNP note has been reviewed, I agree with a documented findings and plan of care. Patient was seen and examined.
[2018-12-11] MEDS: LIPASE 5,000/PROTEASE 17,000/AMYLASE 24,000 PO SCH ×3 (11:14→17:24)
[2018-12-11] MEDS: INSULIN ASPART (NovoLOG) 100 UNIT/ML VIAL SQ SCH ×6 (11:14→17:24)
[2018-12-11] MEDS: PANTOPRAZOLE 40 MG TABLET PO SCH (11:15)
[2018-12-11] MEDS: SACUBITRIL/VALSARTAN 24 MG-26 MG TABLET PO SCH ×2 (11:15→22:29)
--- NOTE | 2018-12-11 11:36 | ECHOF ---
Referral Reason:chf MEASUREMENTS -------- HEIGHT: 175.3 cm WEIGHT: 59.9 kg BP: 88/56 RVIDd: 4.1 cm (< 3.3) IVSd: 1.4 cm (0.6 - 1.1) LVIDd: 5.9 cm (3.9 - 5.3) LVPWd: 1.5 cm (0.6 - 1.1) IVSs: 1.4 cm LVIDs: 5.7 cm LVPWs: 1.6 cm LAESV Index (A-L): 60.30 ml/m Ao Diam: 3.4 cm (2.0 - 3.7) AV Cusp: 2.2 cm (1.5 - 2.6) LA Diam: 4.4 cm (2.7 - 3.8) EPSS: 1.8 cm MV E Niraj: 0.72 m/s MV DecT: 167 ms MV A Niraj: 0.44 m/s MV E/A Ratio: 1.63 RAP: 20.00 mmHg RVSP: 33.98 mmHg MV EF SLOPE: 109.93 mm/s (70 - 150) MV EXCURSION: 1.75 cm (> 18.000) FINDINGS -------- Sinus rhythm. This was a technically good study. The left ventricular size is normal. There is moderate concentric left ventricular hypertrophy. T here is severe global hypokinesis of LV . Overall left ventricular systolic function is severely im paired with, an EF between 20 - 25 %. Mitral Doppler inflow pattern suggests diastolic filling abno rmality. The right ventricle is severely enlarged. Left atrium is severely dilated by volume. Electronic pacemaker lead seen in the right atrial cavity. RA appears enlarged Interatrial and interventricular septum intact. The aortic valve is trileaflet, and appears structurally normal. No aortic stenosis or regurgitation. The mitral valve is normal. Moderate mitral regurgitation is present. Mild tricuspid regurgitation present. There is mild pulmonary hypertension. The right ventricular systolic pressure, as measured by Doppler, is 33.98mmHg. There is no pulmonic regurgitation present. The aortic root size is normal. The inferior vena cava is dilated with no significant inspiratory collapse which is consistent estima natalia right atrial pressure of >20 mmHg. There is a trivial pericardial effusion present. CONCLUSIONS -------- 1. Sinus rhythm. 2. This was a technically good study. 3. The left ventricular size is normal. 4. There is moderate concentric left ventricular hypertrophy. 5. There is severe global hypokinesis of LV . 6. Overall left ventricular systolic function is severely impaired with, an EF between 20 - 25 %. 7. The right ventricle is severely enlarged. 8. Left atrium is severely dilated by volume. 9. Electronic pacemaker lead seen in the right atrial cavity. 10. RA appears enlarged 11. The aortic valve is trileaflet, and appears structurally normal. No aortic stenosis or regurgitat ion. 12. The mitral valve is normal. 13. Moderate mitral regurgitation is present. 14. Mild tricuspid regurgitation present. 15. There is mild pulmonary hypertension. 16. There is no pulmonic regurgitation present. 17. The aortic root size is normal. 18. The inferior vena cava is dilated with no significant inspiratory collapse which is consistent es timated right atrial pressure of >20 mmHg. 19. There is a trivial pericardial effusion present. [employer] OFFICER: Bailey Richard RDCS
[2018-12-11 12:14] LABS: Glucose,Whole Blood 46 mg/dL (75-99)
[2018-12-11 12:14] LABS: Glucose,Whole Blood 45 mg/dL (75-99)
[2018-12-11 12:33] LABS: Glucose,Whole Blood 83 mg/dL (75-99)
[2018-12-11 12:48] LABS: Glucose,Whole Blood 132 mg/dL (75-99)
--- NOTE | 2018-12-11 16:45 | XR ---
EXAMINATION TYPE: XR chest 1V portable DATE OF EXAM: 12/11/2018 COMPARISON: 12/10/2018 HISTORY: COPD. Short of breath. TECHNIQUE: Single frontal view of the chest is obtained. FINDINGS: There is pulmonary vascular congestion. There is blunting of costophrenic angles. There is basilar pulmonary infiltrates and atelectasis. There is a left axillary pacemaker. IMPRESSION: Congestive heart failure with basilar pulmonary infiltrates that is new compared to exam yesterday.
[2018-12-11 17:15] LABS: Glucose,Whole Blood 246 mg/dL (75-99)
[2018-12-11] MEDS: SODIUM CHLORIDE 0.9% 1,000 ML IV SCH (17:25)
[2018-12-11 21:14] LABS: Glucose,Whole Blood 169 mg/dL (75-99)
[2018-12-11 21:17] LABS: Hemoglobin A1C 11.4 % (4.0-6.0)
[2018-12-11] MEDS: INSULIN DETEMIR (LEVEMIR) 100 UNIT/ML SYR SQ SCH (22:29)
[2018-12-12 06:00] LABS: Glucose,Whole Blood 89 mg/dL (75-99)
[2018-12-12 06:20] LABS: Basophils # (A) 0.1 k/uL (0-0.2); Basophils % (A) 1 %; Eosinophils # (A) 0.2 k/uL (0-0.7); Eosinophils % (A) 4 %; HCT 33.4 % (39.0-53.0); HGB 10.8 gm/dL (13.0-17.5); Hypochromasia Slight; Lymphocytes # (A) 0.9 k/uL (1.0-4.8); Lymphocytes % (A) 20 %; MCHC 32.4 g/dL (31.0-37.0); MCV 92.7 fL (80.0-100.0); Monocytes # (A) 0.5 k/uL (0-1.0); Monocytes % (A) 11 %; Neutrophils # (A) 2.7 k/uL (1.3-7.7); Neutrophils % (A) 61 %; Platelet Count 239 k/uL (150-450); RDW 15.3 % (11.5-15.5); WBC 4.5 k/uL (3.8-10.6)
[2018-12-12 06:21] LABS: Albumin 3.1 g/dL (3.5-5.0); Calcium 8.4 mg/dL (8.4-10.2); Potassium 5.4 mmol/L (3.5-5.1); Total Bilirubin 0.3 mg/dL (0.2-1.3); Total Protein 5.2 g/dL (6.3-8.2)
[2018-12-12] MEDS: INSULIN ASPART (NovoLOG) 100 UNIT/ML VIAL SQ SCH ×8 (06:40→21:11)
[2018-12-12] MEDS: HEPARIN SODIUM,PORCINE 5,000 UNIT/ML 1 ML VIAL SQ SCH ×4 (06:41→21:47)
[2018-12-12] MEDS: FUROSEMIDE 10 MG/ML 4 ML VIAL IV SCH ×4 (06:41→21:47)
[2018-12-12] MEDS: PANTOPRAZOLE 40 MG TABLET PO SCH (06:50)
[2018-12-12] MEDS: LIPASE 5,000/PROTEASE 17,000/AMYLASE 24,000 PO SCH ×3 (06:50→17:09)
[2018-12-12] MEDS: SYMBICORT 160-4.5 MCG INHALER INHALATION SCH ×2 (07:41→19:01)
[2018-12-12] MEDS: IPRATROPIUM-ALBUTEROL 3 ML NEB INHALATION SCH ×4 (07:41→19:01)
[2018-12-12] MEDS: ATORVASTATIN 20 MG TAB PO SCH (08:46)
[2018-12-12] MEDS: ASPIRIN 81 MG PO SCH (08:46)
[2018-12-12] MEDS: DOCUSATE 100 MG CAP PO SCH (08:46)
[2018-12-12] MEDS: PREGABALIN 100 MG CAP PO SCH ×3 (08:46→21:49)
[2018-12-12] MEDS: POLYETHYLENE GLYCOL 3350 17 GM POWD.PACK PO SCH (08:47)
[2018-12-12] MEDS: HYDROcodone/APAP 10-325MG 1 EACH TAB PO PRN ×3 (08:58→21:46)
[2018-12-12] MEDS: SACUBITRIL/VALSARTAN 24 MG-26 MG TABLET PO SCH ×2 (10:52→21:46)
[2018-12-12] MEDS: METOPROLOL SUCCINATE (ER) 25 MG TAB.ER.24H PO SCH (10:52)
[2018-12-12 11:39] LABS: Glucose,Whole Blood 117 mg/dL (75-99)
[2018-12-12 11:42] VITALS: BMI 20.3
--- NOTE | 2018-12-12 14:07 | P.PN ---
Subjective Principal diagnosis: LE pain with edema This is a continue progress on a 58-year-old white male with history of COPD protocol controlled diabetes and decompensated heart failure who is here essentially because of recurrence of shortness of breath. He is maintained complaint today however is lower extremity episodic pain. He suspect this is related to neuropathy from diabetes. Breathing is much more stable today. However, he is also complaining of his lower extremity edema. I do suspect element of neuropathy. Objective - Vital Signs Vital signs: Vital Signs Temp 98.2 F 12/12/18 11:00 Pulse 92 12/12/18 11:09 Resp 18 12/12/18 11:00 BP 99/69 12/12/18 11:00 Pulse Ox 98 12/12/18 11:00 Intake & Output 12/11/18 12/12/18 12/12/18 18:59 06:59 18:59 Intake Total 240 Balance 240 Weight 60 kg 62.5 kg 62.5 kg Intake: Oral 240 Other: Voiding Method Toilet Toilet # Voids 1 1 - Constitutional General appearance: Present: severe distress - EENT Eyes: Absent: abnormal pupil - Neck Neck: Absent: lymphadenopathy - Respiratory Respiratory: bilateral: CTA - Cardiovascular Rhythm: regular Heart sounds: normal: S1, S2 Abnormal Heart Sounds: Absent: S3 Gallop - Gastrointestinal General gastrointestinal: Present: soft. Absent: tenderness - Neurologic Neurologic: Present: CNII-XII intact. Absent: focal deficits - Labs CBC & Chem 7: 12/12/18 05:44 12/12/18 05:44 Labs: Abnormal Lab Results - Last 24 Hours (Table) 12/11/18 12/11/18 12/11/18 Range/Units 07:51 17:13 21:12 RBC (4.30-5.90) m/uL Hgb (13.0-17.5) gm/dL Hct (39.0-53.0) % Lymphocytes # (1.0-4.8) k/uL Sodium (137-145) mmol/L Potassium (3.5-5.1) mmol/L Chloride (98-107) mmol/L BUN (9-20) mg/dL Creatinine (0.66-1.25) mg/dL POC Glucose (mg/dL) 246 H 169 H (75-99) mg/dL Hemoglobin A1c 11.4 H (4.0-6.0) % ALT (21-72) U/L Total Protein (6.3-8.2) g/dL Albumin (3.5-5.0) g/dL 12/12/18 12/12/18 12/12/18 Range/Units 05:44 05:44 11:38 RBC 3.60 L (4.30-5.90) m/uL Hgb 10.8 L (13.0-17.5) gm/dL Hct 33.4 L (39.0-53.0) % Lymphocytes # 0.9 L (1.0-4.8) k/uL Sodium 133 L (137-145) mmol/L Potassium 5.4 H (3.5-5.1) mmol/L Chloride 97 L (98-107) mmol/L BUN 26 H (9-20) mg/dL Creatinine 1.51 H (0.66-1.25) mg/dL POC Glucose (mg/dL) 117 H (75-99) mg/dL Hemoglobin A1c (4.0-6.0) % ALT 20 L (21-72) U/L Total Protein 5.2 L (6.3-8.2) g/dL Albumin 3.1 L (3.5-5.0) g/dL Microbiology - Last 24 Hours (Table) 12/11/18 22:00 Sputum Culture - Preliminary Sputum 12/11/18 07:51 Blood Culture - Preliminary Blood No Growth after 24 hours 12/10/18 16:40 Urine Culture - Final Urine,Voided Assessment and Plan (1) Heart failure Current Visit: Yes Status: Acute Code(s): I50.9 - HEART FAILURE, UNSPECIFIED SNOMED Code(s): 75574920 (2) Congestive heart failure Current Visit: No Status: Acute Code(s): I50.9 - HEART FAILURE, UNSPECIFIED SNOMED Code(s): 43978700 (3) Diabetic neuropathy Current Visit: No Status: Acute Code(s): E11.40 - TYPE 2 DIABETES MELLITUS WITH DIABETIC NEUROPATHY, UNSP SNOMED Code(s): 645733729 (4) High risk for readmission Current Visit: No Status: Acute Code(s): Z91.89 - OTH PERSONAL RISK FACTORS, NOT ELSEWHERE CLASSIFIED SNOMED Code(s): 647125072 (5) NICM (nonischemic cardiomyopathy) Current Visit: No Status: Acute Code(s): I42.9 - CARDIOMYOPATHY, UNSPECIFIED SNOMED Code(s): 27624626 Plan: Continue diuresis. Furosemide has been increased. Appreciate consultants input. Adjust medication for neuropathy. Check CBC and CMP in a.m. Prognosis is guarded secondary to his multiple comorbidities.
--- NOTE | 2018-12-12 14:08 | P.PN ---
Subjective Progress Note Date: 12/12/18 This is a 58-year-old gentleman with known history of nonischemic cardiomyopathy and prior AICD implantation, history of EtOH abuse, chronic systolic congestive heart failure, prior TIA, hypertension, diabetes, COPD on home O2, chronic diaphragmatic paralysis, hyperlipidemia, chronic pancreatitis, nicotine dependence. He presented to the hospital on this occasion with symptoms of severe bilateral leg pain with associated swelling, he also states that he's been having a mild increase in his shortness of breath. Chest x-ray on presentation here showed cardiomegaly and chronic changes without any new acute pulmonary process. EKG shows a sinus tachycardia with left ventricular hypertrophy, occasional PVC and nonspecific ST-T wave changes. Bilateral venous duplex study was negative for DVT bilaterally. Blood pressure on arrival 130/90, heart rate 108, 99% on 4 L of oxygen. Temperature 97.5. White blood cell count is normal, hemoglobin 10.5, platelet count 244. Sodium 135, potass ium 5 on admission, 3.7 this morning. BUN on admission 17 with a creatinine of 0.9, 22 and 1.3 this morning. Blood glucose on arrival 597. Troponins 0.046, 0.061, 0.065. BNP level 21,000. Serum alcohol level was less than 10. At the time of my examination this morning, patient is complaining of aching all over, primarily in his bilateral lower legs, he complains of his hips hurting. The patient denies any chest discomfort. 12/12/2018 Patient was seen and examined this morning, he continues to complain of discomfort in his bilateral legs. Overall his breathing is improved, he also complains that he feels his legs are significantly swollen, he does have some swelling to his lower extremities and some redness. Blood pressure is running on the low side today although the patient denies any dizziness or lightheadedness. Blood pressure 99/60 with a heart rate in the 80s, 98% on 4 L of oxygen. White blood cell count 4.5, hemoglobin 10.8, platelet count 239, sodium 133, potassium 5.4, BUN 26 and creatinine 1.5. Chest x-ray performed today continued to show evidence of congestive cardiac failure. Objective - Vital Signs Vital signs: Vital Signs Temp 98.2 F 12/12/18 11:00 Pulse 92 12/12/18 11:09 Resp 18 12/12/18 11:00 BP 99/69 12/12/18 11:00 Pulse Ox 98 12/12/18 11:00 Intake & Output 12/11/18 12/12/18 12/12/18 18:59 06:59 18:59 Intake Total 240 Balance 240 Weight 60 kg 62.5 kg 62.5 kg Intake: Oral 240 Other: Voiding Method Toilet Toilet # Voids 1 1 - Exam PHYSICAL EXAMINATION: GENERAL: 58-year-old gentleman complaining of significant bilateral leg pain at the time of my examination. HEENT: Head is atraumatic, normocephalic. Pupils equal, round. Sclera anicteric. Conjunctiva are clear. Mucous membranes of the mouth are moist. Neck is supple. There is no elevated jugular venous pressure.] bruit is heard. HEART EXAMINATION: Heart S1, S2 normal. No murmur or gallop heard. CHEST EXAMINATION: His reveal crackles bilaterally with diminished air entry to the bases. ABDOMEN: Soft, nontender. Bowel sounds are heard. No organomegaly noted. EXTREMITIES:[ 1+ peripheral pulses with 1+ evidence of peripheral edema , bilateral leg pain bilateral leg redness in the lower extremities NEUROLOGIC patient is awake, alert and oriented 3 . - Labs CBC & Chem 7: 12/12/18 05:44 12/12/18 05:44 Labs: Abnormal Lab Results - Last 24 Hours (Table) 12/11/18 12/11/18 12/11/18 Range/Units 07:51 17:13 21:12 RBC (4.30-5.90) m/uL Hgb (13.0-17.5) gm/dL Hct (39.0-53.0) % Lymphocytes # (1.0-4.8) k/uL Sodium (137-145) mmol/L Potassium (3.5-5.1) mmol/L Chloride (98-107) mmol/L BUN (9-20) mg/dL Creatinine (0.66-1.25) mg/dL POC Glucose (mg/dL) 246 H 169 H (75-99) mg/dL Hemoglobin A1c 11.4 H (4.0-6.0) % ALT (21-72) U/L Total Protein (6.3-8.2) g/dL Albumin (3.5-5.0) g/dL 12/12/18 12/12/18 12/12/18 Range/Units 05:44 05:44 11:38 RBC 3.60 L (4.30-5.90) m/uL Hgb 10.8 L (13.0-17.5) gm/dL Hct 33.4 L (39.0-53.0) % Lymphocytes # 0.9 L (1.0-4.8) k/uL Sodium 133 L (137-145) mmol/L Potassium 5.4 H (3.5-5.1) mmol/L Chloride 97 L (98-107) mmol/L BUN 26 H (9-20) mg/dL Creatinine 1.51 H (0.66-1.25) mg/dL POC Glucose (mg/dL) 117 H (75-99) mg/dL Hemoglobin A1c (4.0-6.0) % ALT 20 L (21-72) U/L Total Protein 5.2 L (6.3-8.2) g/dL Albumin 3.1 L (3.5-5.0) g/dL Microbiology - Last 24 Hours (Table) 12/11/18 22:00 Sputum Culture - Preliminary Sputum 12/11/18 07:51 Blood Culture - Preliminary Blood No Growth after 24 hours 12/10/18 16:40 Urine Culture - Final Urine,Voided Assessment and Plan Plan: Assessment and plan #1 systolic congestive heart failure acute on chronic #2 bilateral leg pain #3 patient has a history of chronic pain #4 nonischemic cardiomyopathy with severely impaired left ventricular systolic function, EF less than 20%, status post AICD implant #5 severe COPD, oxygen dependent #6 chronic alcoholism #7 nicotine dependence #8 hypertension #9 diabetes, uncontrolled #10 hyperlipidemia #11 degenerative arthritis #12 chronic pancreatitis with a history of pancreatic pseudocyst and malabsorption #13 acute on chronic renal insufficiency #14, abnormality in troponin, likely secondary to congestive heart failure and severe COPD, patient is known to have cyst and abnormality in his troponins for over a year. Plan From cardiology's perspective, we'll recommend to continue this patient on his current dose of IV Lasix. Continue to monitor the intake and output along with daily weights and daily lytes BUN and creatinine. We will also write parameters for the patient's blood pressure medication. DNP note has been reviewed, I agree with a documented findings and plan of care. Patient was seen and examined.
[2018-12-12 16:35] LABS: Glucose,Whole Blood 99 mg/dL (75-99)
[2018-12-12 19:52] LABS: Glucose,Whole Blood 50 mg/dL (75-99)
[2018-12-12 20:08] LABS: Glucose,Whole Blood 51 mg/dL (75-99)
[2018-12-12 20:40] LABS: Glucose,Whole Blood 119 mg/dL (75-99)
[2018-12-12] MEDS: SODIUM CHLORIDE 0.9% 1,000 ML IV SCH (21:26)
[2018-12-12] MEDS: INSULIN DETEMIR (LEVEMIR) 100 UNIT/ML SYR SQ SCH (21:54)
[2018-12-13 01:18] LABS: Glucose,Whole Blood 289 mg/dL (75-99)
[2018-12-13] MEDS: INSULIN DETEMIR (LEVEMIR) 100 UNIT/ML SYR SQ SCH ×2 (04:18→22:06)
[2018-12-13 06:15] LABS: Basophils % (A) 1 %; Eosinophils # (A) 0.2 k/uL (0-0.7); Eosinophils % (A) 6 %; HCT 35.6 % (39.0-53.0); HGB 11.3 gm/dL (13.0-17.5); Hypochromasia Slight; Lymphocytes # (A) 1.1 k/uL (1.0-4.8); Lymphocytes % (A) 28 %; MCH 29.6 pg (25.0-35.0); MCHC 31.9 g/dL (31.0-37.0); MCV 92.9 fL (80.0-100.0); Mean Platelet Volume 7.5; Monocytes # (A) 0.4 k/uL (0-1.0); Monocytes % (A) 11 %; Neutrophils % (A) 51 %; Platelet Count 231 k/uL (150-450); RBC 3.84 m/uL (4.30-5.90); RDW 14.6 % (11.5-15.5); WBC 3.9 k/uL (3.8-10.6)
[2018-12-13 06:25] LABS: Albumin 3.2 g/dL (3.5-5.0); Calcium 8.1 mg/dL (8.4-10.2); Potassium 5.1 mmol/L (3.5-5.1); Total Bilirubin 0.3 mg/dL (0.2-1.3); Total Protein 5.1 g/dL (6.3-8.2)
[2018-12-13 06:36] LABS: Glucose,Whole Blood 280 mg/dL (75-99)
[2018-12-13] MEDS: LIPASE 5,000/PROTEASE 17,000/AMYLASE 24,000 PO SCH ×3 (06:45→17:15)
[2018-12-13] MEDS: PANTOPRAZOLE 40 MG TABLET PO SCH (06:45)
[2018-12-13] MEDS: INSULIN ASPART (NovoLOG) 100 UNIT/ML VIAL SQ SCH ×7 (06:46→22:06)
[2018-12-13] MEDS: SYMBICORT 160-4.5 MCG INHALER INHALATION SCH ×2 (07:22→19:34)
[2018-12-13] MEDS: IPRATROPIUM-ALBUTEROL 3 ML NEB INHALATION SCH ×4 (07:22→19:34)
[2018-12-13] MEDS: ASPIRIN 81 MG PO SCH (08:55)
[2018-12-13] MEDS: PREGABALIN 100 MG CAP PO SCH ×3 (08:55→20:20)
[2018-12-13] MEDS: ATORVASTATIN 20 MG TAB PO SCH (08:55)
[2018-12-13] MEDS: HEPARIN SODIUM,PORCINE 5,000 UNIT/ML 1 ML VIAL SQ SCH ×3 (08:55→23:21)
[2018-12-13] MEDS: DOCUSATE 100 MG CAP PO SCH (08:55)
[2018-12-13] MEDS: POLYETHYLENE GLYCOL 3350 17 GM POWD.PACK PO SCH (08:56)
[2018-12-13] MEDS: SACUBITRIL/VALSARTAN 24 MG-26 MG TABLET PO SCH ×2 (11:04→20:20)
[2018-12-13] MEDS: METOPROLOL SUCCINATE (ER) 25 MG TAB.ER.24H PO SCH (11:04)
[2018-12-13] MEDS: HYDROcodone/APAP 10-325MG 1 EACH TAB PO PRN ×2 (11:10→20:21)
[2018-12-13] MEDS: FUROSEMIDE 10 MG/ML 4 ML VIAL IV SCH ×3 (11:10→23:21)
[2018-12-13 11:57] LABS: Glucose,Whole Blood 191 mg/dL (75-99)
--- NOTE | 2018-12-13 14:24 | P.PN ---
Subjective Principal diagnosis: LE pain with edema This is a continue progress on a 58-year-old white male with history of COPD protocol controlled diabetes and decompensated heart failure who is here essentially because of recurrence of shortness of breath. He is maintained complaint today however is lower extremity episodic pain. He suspect this is related to neuropathy from diabetes. Breathing is much more stable today. However, he is also complaining of his lower extremity edema. I do suspect element of neuropathy. 12/13 The patient is here complaining of still lower extremity pain with scrotal edema which I do suspect is related to congestive heart failure. The patient medication has been titrated. Minimal ambulation is stated. Element of COPD element of chronic pancreatitis Objective - Vital Signs Vital signs: Vital Signs Temp 98.4 F 12/13/18 11:17 Pulse 89 12/13/18 11:17 Resp 18 12/13/18 11:17 BP 103/64 12/13/18 11:17 Pulse Ox 99 12/13/18 11:17 Intake & Output 12/12/18 12/13/18 12/13/18 18:59 06:59 18:59 Intake Total 960 50 Output Total 1250 Balance 960 -1250 50 Weight 62.5 kg 62.9 kg Intake: Intake, IV Titration 50 Amount cefTRIAXone 1 gm In 50 Sodium Chloride 0.9% 50 ml @ 100 mls/hr IVPB Q24HR [facility] Rx#:[id number] Oral 960 Output: Urine 1250 Other: Voiding Method Toilet Toilet Toilet # Voids 1 2 2 # Bowel Movements 1 1 - Constitutional General appearance: Present: thin - EENT Eyes: Absent: abnormal pupil - Neck Neck: Absent: lymphadenopathy - Respiratory Respiratory: bilateral: diminished - Cardiovascular Rhythm: irregularly irregular Heart sounds: normal: S1, S2 Abnormal Heart Sounds: Absent: S3 Gallop - Gastrointestinal General gastrointestinal: Present: soft. Absent: tenderness - Psychiatric Psychiatric: Present: A&O x's 3 - Labs CBC & Chem 7: 12/13/18 05:50 12/13/18 05:50 Labs: Abnormal Lab Results - Last 24 Hours (Table) 12/12/18 12/12/18 12/12/18 Range/Units 19:51 20:07 20:31 RBC (4.30-5.90) m/uL Hgb (13.0-17.5) gm/dL Hct (39.0-53.0) % Sodium (137-145) mmol/L Chloride (98-107) mmol/L Carbon Dioxide (22-30) mmol/L BUN (9-20) mg/dL Creatinine (0.66-1.25) mg/dL Glucose (74-99) mg/dL POC Glucose (mg/dL) 50 L 51 L 119 H (75-99) mg/dL Calcium (8.4-10.2) mg/dL Total Protein (6.3-8.2) g/dL Albumin (3.5-5.0) g/dL 12/13/18 12/13/18 12/13/18 Range/Units 01:08 05:50 05:50 RBC 3.84 L (4.30-5.90) m/uL Hgb 11.3 L (13.0-17.5) gm/dL Hct 35.6 L (39.0-53.0) % Sodium 131 L (137-145) mmol/L Chloride 92 L (98-107) mmol/L Carbon Dioxide 32 H (22-30) mmol/L BUN 27 H (9-20) mg/dL Creatinine 1.80 H (0.66-1.25) mg/dL Glucose 242 H (74-99) mg/dL POC Glucose (mg/dL) 289 H (75-99) mg/dL Calcium 8.1 L (8.4-10.2) mg/dL Total Protein 5.1 L (6.3-8.2) g/dL Albumin 3.2 L (3.5-5.0) g/dL 12/13/18 12/13/18 Range/Units 06:35 11:56 RBC (4.30-5.90) m/uL Hgb (13.0-17.5) gm/dL Hct (39.0-53.0) % Sodium (137-145) mmol/L Chloride (98-107) mmol/L Carbon Dioxide (22-30) mmol/L BUN (9-20) mg/dL Creatinine (0.66-1.25) mg/dL Glucose (74-99) mg/dL POC Glucose (mg/dL) 280 H 191 H (75-99) mg/dL Calcium (8.4-10.2) mg/dL Total Protein (6.3-8.2) g/dL Albumin (3.5-5.0) g/dL Microbiology - Last 24 Hours (Table) 12/11/18 07:51 Blood Culture - Preliminary Blood No Growth after 48 hours 12/11/18 22:00 Gram Stain - Preliminary Sputum Sputum Culture - Preliminary Assessment and Plan (1) Heart failure Current Visit: Yes Status: Acute Code(s): I50.9 - HEART FAILURE, UNSPECIFIED SNOMED Code(s): 71439740 (2) Congestive heart failure Current Visit: No Status: Acute Code(s): I50.9 - HEART FAILURE, UNSPECIFIED SNOMED Code(s): 13247541 (3) Diabetic neuropathy Current Visit: No Status: Acute Code(s): E11.40 - TYPE 2 DIABETES MELLITUS WITH DIABETIC NEUROPATHY, UNSP SNOMED Code(s): 230058588 (4) High risk for readmission Current Visit: No Status: Acute Code(s): Z91.89 - OTH PERSONAL RISK FACTORS, NOT ELSEWHERE CLASSIFIED SNOMED Code(s): 250153437 (5) NICM (nonischemic cardiomyopathy) Current Visit: No Status: Acute Code(s): I42.9 - CARDIOMYOPATHY, UNSPECIFIED SNOMED Code(s): 39447406 Plan: This morning he seemed hypotensive. Otherwise, watch edema elements. Check CBC and CMP in the a.m. Prognosis guarded secondary to his multiple comorbidities.
--- NOTE | 2018-12-13 16:15 | P.PN ---
Subjective Progress Note Date: 12/13/18 This is a 58-year-old gentleman with known history of nonischemic cardiomyopathy and prior AICD implantation, history of EtOH abuse, chronic systolic congestive heart failure, prior TIA, hypertension, diabetes, COPD on home O2, chronic diaphragmatic paralysis, hyperlipidemia, chronic pancreatitis, nicotine dependence. He presented to the hospital on this occasion with symptoms of severe bilateral leg pain with associated swelling, he also states that he's been having a mild increase in his shortness of breath. Chest x-ray on presentation here showed cardiomegaly and chronic changes without any new acute pulmonary process. EKG shows a sinus tachycardia with left ventricular hypertrophy, occasional PVC and nonspecific ST-T wave changes. Bilateral venous duplex study was negative for DVT bilaterally. Blood pressure on arrival 130/90, heart rate 108, 99% on 4 L of oxygen. Temperature 97.5. White blood cell count is normal, hemoglobin 10.5, platelet count 244. Sodium 135, potass ium 5 on admission, 3.7 this morning. BUN on admission 17 with a creatinine of 0.9, 22 and 1.3 this morning. Blood glucose on arrival 597. Troponins 0.046, 0.061, 0.065. BNP level 21,000. Serum alcohol level was less than 10. At the time of my examination this morning, patient is complaining of aching all over, primarily in his bilateral lower legs, he complains of his hips hurting. The patient denies any chest discomfort. 12/12/2018 Patient was seen and examined this morning, he continues to complain of discomfort in his bilateral legs. Overall his breathing is improved, he also complains that he feels his legs are significantly swollen, he does have some swelling to his lower extremities and some redness. Blood pressure is running on the low side today although the patient denies any dizziness or lightheadedness. Blood pressure 99/60 with a heart rate in the 80s, 98% on 4 L of oxygen. White blood cell count 4.5, hemoglobin 10.8, platelet count 239, sodium 133, potassium 5.4, BUN 26 and creatinine 1.5. Chest x-ray performed today continued to show evidence of congestive cardiac failure. 12/13/2018 Patient seen and examined this morning, denies any dizziness or lightheadedness, does state that the discomfort in his legs is improving. He is diuresing, his weight is unchanged from yesterday. White blood cell count 3.9, hemoglobin 11.3, platelet count 231. Sodium 131, potassium 5.1, BUN 27 and creatinine 1.8. He continues to be on IV Lasix, we will repeat a chest x-ray tomorrow. Blood pressure is running on the low side today, patient is asymptomatic. We will give the patient is IV Lasix but hold his Entresto dose today and reevaluate in the morning. Objective - Vital Signs Vital signs: Vital Signs Temp 97.8 F 12/13/18 15:52 Pulse 85 12/13/18 15:52 Resp 18 12/13/18 15:52 BP 86/50 12/13/18 15:52 Pulse Ox 98 12/13/18 15:52 Intake & Output 12/12/18 12/13/18 12/13/18 18:59 06:59 18:59 Intake Total 960 168 Output Total 1250 Balance 960 -1250 168 Weight 62.5 kg 62.9 kg Intake: Intake, IV Titration 50 Amount cefTRIAXone 1 gm In 50 Sodium Chloride 0.9% 50 ml @ 100 mls/hr IVPB Q24HR [facility] Rx#:[id number] Oral 960 118 Output: Urine 1250 Other: Voiding Method Toilet Toilet Toilet # Voids 1 2 2 # Bowel Movements 1 1 - Exam PHYSICAL EXAMINATION: GENERAL: 58-year-old gentleman complaining of significant bilateral l eg pain at the time of my examination. HEENT: Head is atraumatic, normocephalic. Pupils equal, round. Sclera anicteric. Conjunctiva are clear. Mucous membranes of the mouth are moist. Neck is supple. There is no elevated jugular venous pressure.] bruit is heard. HEART EXAMINATION: Heart S1, S2 normal. No murmur or gallop heard. CHEST EXAMINATION: His reveal crackles bilaterally with diminished air entry to the bases. ABDOMEN: Soft, nontender. Bowel sounds are heard. No organomegaly noted. EXTREMITIES:[ 1+ peripheral pulses with 1+ evidence of peripheral edema , bilateral leg pain bilateral leg redness in the lower extremities NEUROLOGIC patient is awake, alert and oriented 3 . - Labs CBC & Chem 7: 12/13/18 05:50 12/13/18 05:50 Labs: Abnormal Lab Results - Last 24 Hours (Table) 12/12/18 12/12/18 12/12/18 Range/Units 19:51 20:07 20:31 RBC (4.30-5.90) m/uL Hgb (13.0-17.5) gm/dL Hct (39.0-53.0) % Sodium (137-145) mmol/L Chloride (98-107) mmol/L Carbon Dioxide (22-30) mmol/L BUN (9-20) mg/dL Creatinine (0.66-1.25) mg/dL Glucose (74-99) mg/dL POC Glucose (mg/dL) 50 L 51 L 119 H (75-99) mg/dL Calcium (8.4-10.2) mg/dL Total Protein (6.3-8.2) g/dL Albumin (3.5-5.0) g/dL 12/13/18 12/13/18 12/13/18 Range/Units 01:08 05:50 05:50 RBC 3.84 L (4.30-5.90) m/uL Hgb 11.3 L (13.0-17.5) gm/dL Hct 35.6 L (39.0-53.0) % Sodium 131 L (137-145) mmol/L Chloride 92 L (98-107) mmol/L Carbon Dioxide 32 H (22-30) mmol/L BUN 27 H (9-20) mg/dL Creatinine 1.80 H (0.66-1.25) mg/dL Glucose 242 H (74-99) mg/dL POC Glucose (mg/dL) 289 H (75-99) mg/dL Calcium 8.1 L (8.4-10.2) mg/dL Total Protein 5.1 L (6.3-8.2) g/dL Albumin 3.2 L (3.5-5.0) g/dL 12/13/18 12/13/18 Range/Units 06:35 11:56 RBC (4.30-5.90) m/uL Hgb (13.0-17.5) gm/dL Hct (39.0-53.0) % Sodium (137-145) mmol/L Chloride (98-107) mmol/L Carbon Dioxide (22-30) mmol/L BUN (9-20) mg/dL Creatinine (0.66-1.25) mg/dL Glucose (74-99) mg/dL POC Glucose (mg/dL) 280 H 191 H (75-99) mg/dL Calcium (8.4-10.2) mg/dL Total Protein (6.3-8.2) g/dL Albumin (3.5-5.0) g/dL Microbiology - Last 24 Hours (Table) 12/11/18 07:51 Blood Culture - Preliminary Blood No Growth after 48 hours 12/11/18 22:00 Gram Stain - Preliminary Sputum Sputum Culture - Preliminary Assessment and Plan Plan: Assessment and plan #1 systolic congestive heart failure acute on chronic #2 bilateral leg pain #3 patient has a history of chronic pain #4 nonischemic cardiomyopathy with severely impaired left ventricular systolic function, EF less than 20%, status post AICD implant #5 severe COPD, oxygen dependent #6 chronic alcoholism #7 nicotine dependence #8 hypertension #9 diabetes, uncontrolled #10 hyperlipidemia #11 degenerative arthritis #12 chronic pancreatitis with a history of pancreatic pseudocyst and malabsorpti on #13 acute on chronic renal insufficiency #14, abnormality in troponin, likely secondary to congestive heart failure and severe COPD, patient is known to have cyst and abnormality in his troponins for over a year. Plan From cardiology's perspective, we'll recommend to continue this patient on his current dose of IV Lasix. Continue to monitor the intake and output along with daily weights and daily lytes BUN and creatinine. DNP note has been reviewed, I agree with a documented findings and plan of care. Patient was seen and examined.
[2018-12-13 16:59] LABS: Glucose,Whole Blood 243 mg/dL (75-99)
[2018-12-13 17:15] LABS: Glucose,Whole Blood 288 mg/dL (75-99)
[2018-12-13] MEDS: SODIUM CHLORIDE 0.9% 1,000 ML IV SCH (20:13)
[2018-12-13 21:00] LABS: Glucose,Whole Blood 351 mg/dL (75-99)
[2018-12-13] MEDS: HYDROmorphone 0.5 MG/0.5 ML SYRINGE IVP PRN (22:06)
[2018-12-14 04:08] LABS: Glucose,Whole Blood 340 mg/dL (75-99)
[2018-12-14] MEDS: HYDROmorphone 0.5 MG/0.5 ML SYRINGE IVP PRN ×3 (04:15→20:35)
[2018-12-14 06:34] LABS: Glucose,Whole Blood 315 mg/dL (75-99)
[2018-12-14] MEDS: INSULIN ASPART (NovoLOG) 100 UNIT/ML VIAL SQ SCH ×7 (06:39→20:53)
[2018-12-14] MEDS: LIPASE 5,000/PROTEASE 17,000/AMYLASE 24,000 PO SCH ×3 (06:40→17:12)
[2018-12-14] MEDS: PANTOPRAZOLE 40 MG TABLET PO SCH (06:40)
[2018-12-14] MEDS: SYMBICORT 160-4.5 MCG INHALER INHALATION SCH ×2 (08:37→20:06)
[2018-12-14] MEDS: IPRATROPIUM-ALBUTEROL 3 ML NEB INHALATION SCH ×4 (08:37→20:09)
[2018-12-14] MEDS: HEPARIN SODIUM,PORCINE 5,000 UNIT/ML 1 ML VIAL SQ SCH ×3 (09:18→23:19)
[2018-12-14] MEDS: PREGABALIN 100 MG CAP PO SCH ×3 (09:18→20:37)
[2018-12-14] MEDS: ASPIRIN 81 MG PO SCH (09:18)
[2018-12-14] MEDS: DOCUSATE 100 MG CAP PO SCH (09:18)
[2018-12-14] MEDS: ATORVASTATIN 20 MG TAB PO SCH (09:18)
[2018-12-14] MEDS: FUROSEMIDE 10 MG/ML 4 ML VIAL IV SCH ×3 (09:18→23:19)
[2018-12-14] MEDS: POLYETHYLENE GLYCOL 3350 17 GM POWD.PACK PO SCH (09:19)
[2018-12-14] MEDS: SACUBITRIL/VALSARTAN 24 MG-26 MG TABLET PO SCH ×2 (09:20→20:37)
--- NOTE | 2018-12-14 10:56 | CDI ---
Documentation Clarification Form Date: 12/14/2018 10:44:13 AM From: Joi AdamsKEMAL, CCDS Admit Date: 12/10/2018 5:40:00 PM Patient Name: Jamal Choudhury Visit Number: [id number] Discharge Date: ATTENTION: The Clinical Documentation Specialists (CDI) and [facility] Coding Staff appreciate your assistance in clarifying documentation. Please respond to the clarification below the line at the bottom and electronically sign. The CDI & [facility] Coding staff will review the response and follow-up if needed. Please note: Queries are made part of the Legal Health Record. If you have any questions, please contact the author of this message via ITS. Dr. Snow Perez: Patient was admitted with CHF, bilateral leg pain, SOB, cough & 3+ pitting edema. Per the cardiology consult & subsequent progress notes: "acute on chronic renal insufficiency." History/Risk Factors: Chronic systolic CHF, Chronic pain, Nonischemic cardiomyopathy w/EF <20% w/AICD implant, Severe COPD, O2 dep; Chronic alcoholism, Smoker, Hypertension, DM II, Hyperlipidemia, Degenerative arthritis and Chronic pancreatitis. Clinical Indicators: Diagnosed with Acute on chronic systolic CHF. BUN: (17) - 22^ - 26^ - 27^ Creatinine: (0.92) - 1.33^, 1.51^ - 1.80^ GFR: >90 - 58 - 50 - 48 Baseline BUN/Cr/GFR unknown or not documented, nephrology was not consulted. RAD: CXR: cardiomegaly. Venous US BLE: Edematous soft tissues. No DVT bilaterally. Repeat CXR: CHF w/basilar pulmonary infiltrates. Treatment: IV Lasix, IV Ms, po ASA, o [place], Heparin sq, INH Albuterol, INH Symbicort, IV Rocephin. In order to capture the severity of the patient's documented renal insufficiency or if chronic renal disease is ruled out: CKD Ruled Out CKD Ruled In: o CKD Stage 1 (GFR > 90) o CKD Stage 2 (GFR 60-89) o CKD Stage 3 (GFR 30-59) Other, please specify Unable to determine (Last Revision: June 2017) MTDD
[2018-12-14] MEDS: METOPROLOL SUCCINATE (ER) 25 MG TAB.ER.24H PO SCH (11:52)
[2018-12-14 11:57] LABS: Glucose,Whole Blood 336 mg/dL (75-99)
--- NOTE | 2018-12-14 12:55 | P.PN ---
Subjective Progress Note Date: 12/14/18 This is a 58-year-old gentleman with known history of nonischemic cardiomyopathy and prior AICD implantation, history of EtOH abuse, chronic systolic congestive heart failure, prior TIA, hypertension, diabetes, COPD on home O2, chronic diaphragmatic paralysis, hyperlipidemia, chronic pancreatitis, nicotine dependence. He presented to the hospital on this occasion with symptoms of severe bilateral leg pain with associated swelling, he also states that he's been having a mild increase in his shortness of breath. Chest x-ray on presentation here showed cardiomegaly and chronic changes without any new acute pulmonary process. EKG shows a sinus tachycardia with left ventricular hypertrophy, occasional PVC and nonspecific ST-T wave changes. Bilateral venous duplex study was negative for DVT bilaterally. Blood pressure on arrival 130/90, heart rate 108, 99% on 4 L of oxygen. Temperature 97.5. White blood cell count is normal, hemoglobin 10.5, platelet count 244. Sodium 135, potass ium 5 on admission, 3.7 this morning. BUN on admission 17 with a creatinine of 0.9, 22 and 1.3 this morning. Blood glucose on arrival 597. Troponins 0.046, 0.061, 0.065. BNP level 21,000. Serum alcohol level was less than 10. At the time of my examination this morning, patient is complaining of aching all over, primarily in his bilateral lower legs, he complains of his hips hurting. The patient denies any chest discomfort. 12/12/2018 Patient was seen and examined this morning, he continues to complain of discomfort in his bilateral legs. Overall his breathing is improved, he also complains that he feels his legs are significantly swollen, he does have some swelling to his lower extremities and some redness. Blood pressure is running on the low side today although the patient denies any dizziness or lightheadedness. Blood pressure 99/60 with a heart rate in the 80s, 98% on 4 L of oxygen. White blood cell count 4.5, hemoglobin 10.8, platelet count 239, sodium 133, potassium 5.4, BUN 26 and creatinine 1.5. Chest x-ray performed today continued to show evidence of congestive cardiac failure. 12/13/2018 Patient seen and examined this morning, denies any dizziness or lightheadedness, does state that the discomfort in his legs is improving. He is diuresing, his weight is unchanged from yesterday. White blood cell count 3.9, hemoglobin 11.3, platelet count 231. Sodium 131, potassium 5.1, BUN 27 and creatinine 1.8. He continues to be on IV Lasix, we will repeat a chest x-ray tomorrow. Blood pressure is running on the low side today, patient is asymptomatic. We will give the patient is IV Lasix but hold his Entresto dose today and reevaluate in the morning. 12/14/2018 Patient was seen and examined this morning, he does state that his breathing has significantly improved, he continues to have pain in his bilateral lower extremities however that has also improved significantly. Patient's edema and redness in the lower extremities has also improved overall. His lytes BUN and creatinine from today are pending. He continues to be on IV Lasix. Objective - Vital Signs Vital signs: Vital Signs Temp 97.8 F 12/14/18 11:43 Pulse 89 12/14/18 11:43 Resp 20 12/14/18 11:43 BP 127/71 12/14/18 11:43 Pulse Ox 99 12/14/18 11:43 Intake & Output 12/13/18 12/14/18 12/14/18 18:59 06:59 18:59 Intake Total 168 924 Output Total 350 Balance 168 -350 924 Weight 62.9 kg Intake: Intake, IV Titration 50 Amount cefTRIAXone 1 gm In 50 Sodium Chloride 0.9% 50 ml @ 100 mls/hr IVPB Q24HR [facility] Rx#:[id number] Oral 118 924 Output: Urine 350 Other: Voiding Method Toilet # Voids 2 1 - Exam PHYSICAL EXAMINATION: GENERAL: 58-year-old gentleman complaining of significant bilateral leg pain at the time of my examination. HEENT: Head is atraumatic, normocephalic. Pupils equal, round. Sclera anicteric. Conjunctiva are clear. Mucous membranes of the mouth are moist. Neck is supple. There is no elevated jugular venous pressure.] bruit is heard. HEART EXAMINATION: Heart S1, S2 normal. No murmur or gallop heard. CHEST EXAMINATION: Lungs reveal crackles bilaterally with diminished air entry to the bases. ABDOMEN: Soft, nontender. Bowel sounds are heard. No organomegaly noted. EXTREMITIES:[ 1+ peripheral pulses with 1+ evidence of peripheral edema , bilateral leg pain bilateral leg redness in the lower extremities improving. NEUROLOGIC patient is awake, alert and oriented 3 . - Labs CBC & Chem 7: 12/13/18 05:50 12/13/18 05:50 Labs: Abnormal Lab Results - Last 24 Hours (Table) 12/13/18 12/13/18 12/13/18 Range/Units 16:58 17:14 20:58 POC Glucose (mg/dL) 243 H 288 H 351 H (75-99) mg/dL 12/14/18 12/14/18 12/14/18 Range/Units 04:07 06:33 11:52 POC Glucose (mg/dL) 340 H 315 H 336 H (75-99) mg/dL Microbiology - Last 24 Hours (Table) 12/11/18 22:00 Gram Stain - Final Sputum Sputum Culture - Final 12/11/18 07:51 Blood Culture - Preliminary Blood No Growth after 72 hours Assessment and Plan Plan: Assessment and plan #1 systolic congestive heart failure acute on chronic #2 bilateral leg pain #3 patient has a history of chronic pain #4 nonischemic cardiomyopathy with severely impaired left ventricular systolic function, EF less than 20%, status post AICD implant #5 severe COPD, oxygen dependent #6 chronic alcoholism #7 nicotine dependence #8 hypertension #9 diabetes, uncontrolled #10 hyperlipidemia #11 degenerative arthritis #12 chronic pancreatitis with a history of pancreatic pseudocyst and malabsorption #13 acute on chronic renal insufficiency #14, abnormality in troponin, likely secondary to congestive heart failure and severe COPD, patient is known to have cyst and abnormality in his troponins for over a year. Plan From cardiology's perspective, we'll recommend to continue this patient on his current dose of IV Lasix. Check lytes BUN and creatinine. DNP note has been reviewed, I agree with a documented findings and plan of care. Patient was seen and examined.
[2018-12-14 13:34] LABS: Calcium 8.4 mg/dL (8.4-10.2); Potassium 5.1 mmol/L (3.5-5.1)
[2018-12-14 16:40] LABS: Glucose,Whole Blood 323 mg/dL (75-99)
[2018-12-14] MEDS: HYDROcodone/APAP 10-325MG 1 EACH TAB PO PRN (19:12)
[2018-12-14] MEDS: SODIUM CHLORIDE 0.9% 1,000 ML IV SCH (19:13)
[2018-12-14] MEDS: INSULIN DETEMIR (LEVEMIR) 100 UNIT/ML SYR SQ SCH (20:52)
[2018-12-14 20:54] LABS: Glucose,Whole Blood 174 mg/dL (75-99)
[2018-12-15] MEDS: MORPHINE SULFATE 4 MG/ML SYRINGE IVP PRN (01:16)
[2018-12-15 06:32] LABS: Glucose,Whole Blood 115 mg/dL (75-99)
[2018-12-15 06:40] LABS: Calcium 9.4 mg/dL (8.4-10.2); Potassium 5.1 mmol/L (3.5-5.1)
[2018-12-15] MEDS: INSULIN ASPART (NovoLOG) 100 UNIT/ML VIAL SQ SCH ×7 (06:46→21:49)
[2018-12-15] MEDS: PANTOPRAZOLE 40 MG TABLET PO SCH (06:50)
[2018-12-15] MEDS: LIPASE 5,000/PROTEASE 17,000/AMYLASE 24,000 PO SCH ×3 (06:50→17:19)
[2018-12-15] MEDS: ASPIRIN 81 MG PO SCH (08:07)
[2018-12-15] MEDS: DOCUSATE 100 MG CAP PO SCH (08:08)
[2018-12-15] MEDS: PREGABALIN 100 MG CAP PO SCH ×3 (08:08→21:48)
[2018-12-15] MEDS: ATORVASTATIN 20 MG TAB PO SCH (08:08)
[2018-12-15] MEDS: METOPROLOL SUCCINATE (ER) 25 MG TAB.ER.24H PO SCH (08:08)
[2018-12-15] MEDS: HYDROcodone/APAP 10-325MG 1 EACH TAB PO PRN ×2 (08:09→17:17)
[2018-12-15] MEDS: SACUBITRIL/VALSARTAN 24 MG-26 MG TABLET PO SCH ×2 (08:09→21:49)
[2018-12-15] MEDS: HEPARIN SODIUM,PORCINE 5,000 UNIT/ML 1 ML VIAL SQ SCH ×3 (08:11→23:49)
[2018-12-15] MEDS: FUROSEMIDE 10 MG/ML 4 ML VIAL IV SCH ×3 (08:12→23:49)
[2018-12-15] MEDS: SYMBICORT 160-4.5 MCG INHALER INHALATION SCH ×2 (08:20→20:21)
[2018-12-15] MEDS: IPRATROPIUM-ALBUTEROL 3 ML NEB INHALATION SCH ×4 (08:20→20:21)
[2018-12-15] MEDS: POLYETHYLENE GLYCOL 3350 17 GM POWD.PACK PO SCH (08:30)
[2018-12-15] MEDS: HYDROmorphone 0.5 MG/0.5 ML SYRINGE IVP PRN ×2 (10:08→18:36)
[2018-12-15 11:39] LABS: Glucose,Whole Blood 214 mg/dL (75-99)
--- NOTE | 2018-12-15 12:47 | P.PN ---
Subjective Progress Note Date: 12/15/18 This is a 58-year-old gentleman with known history of nonischemic cardiomyopathy and prior AICD implantation, history of EtOH abuse, chronic systolic congestive heart failure, prior TIA, hypertension, diabetes, COPD on home O2, chronic diaphragmatic paralysis, hyperlipidemia, chronic pancreatitis, nicotine dependence. He presented to the hospital on this occasion with symptoms of severe bilateral leg pain with associated swelling, he also states that he's been having a mild increase in his shortness of breath. Chest x-ray on presentation here showed cardiomegaly and chronic changes without any new acute pulmonary process. EKG shows a sinus tachycardia with left ventricular hypertrophy, occasional PVC and nonspecific ST-T wave changes. Bilateral venous duplex study was negative for DVT bilaterally. Blood pressure on arrival 130/90, heart rate 108, 99% on 4 L of oxygen. Temperature 97.5. White blood cell count is normal, hemoglobin 10.5, platelet count 244. Sodium 135, potass ium 5 on admission, 3.7 this morning. BUN on admission 17 with a creatinine of 0.9, 22 and 1.3 this morning. Blood glucose on arrival 597. Troponins 0.046, 0.061, 0.065. BNP level 21,000. Serum alcohol level was less than 10. At the time of my examination this morning, patient is complaining of aching all over, primarily in his bilateral lower legs, he complains of his hips hurting. The patient denies any chest discomfort. 12/12/2018 Patient was seen and examined this morning, he continues to complain of discomfort in his bilateral legs. Overall his breathing is improved, he also complains that he feels his legs are significantly swollen, he does have some swelling to his lower extremities and some redness. Blood pressure is running on the low side today although the patient denies any dizziness or lightheadedness. Blood pressure 99/60 with a heart rate in the 80s, 98% on 4 L of oxygen. White blood cell count 4.5, hemoglobin 10.8, platelet count 239, sodium 133, potassium 5.4, BUN 26 and creatinine 1.5. Chest x-ray performed today continued to show evidence of congestive cardiac failure. 12/13/2018 Patient seen and examined this morning, denies any dizziness or lightheadedness, does state that the discomfort in his legs is improving. He is diuresing, his weight is unchanged from yesterday. White blood cell count 3.9, hemoglobin 11.3, platelet count 231. Sodium 131, potassium 5.1, BUN 27 and creatinine 1.8. He continues to be on IV Lasix, we will repeat a chest x-ray tomorrow. Blood pressure is running on the low side today, patient is asymptomatic. We will give the patient is IV Lasix but hold his Entresto dose today and reevaluate in the morning. 12/14/2018 Patient was seen and examined this morning, he does state that his breathing has significantly improved, he continues to have pain in his bilateral lower extremities however that has also improved significantly. Patient's edema and redness in the lower extremities has also improved overall. His lytes BUN and creatinine from today are pending. He continues to be on IV Lasix. 12/15/2018 Patient seen and examined this morning, overall doing better. Let pressure 100/60 with a heart rate in the 70s, 97% on 4 L of oxygen. Sodium 135, potassium 5.1, BUN 40 and creatinine 1.6, magnesium 2.0. Patient's weight is down 2 kg today. Objective - Vital Signs Vital signs: Vital Signs Temp 97.6 F 12/15/18 12:00 Pulse 70 12/15/18 12:01 Resp 17 12/15/18 12:00 BP 101/62 12/15/18 12:00 Pulse Ox 97 12/15/18 12:00 Intake & Output 12/14/18 12/15/18 12/15/18 18:59 06:59 18:59 Intake Total 2396 480 Output Total 1600 600 Balance 796 -120 Weight 60.5 kg Intake: Intake, IV Titration 50 Amount cefTRIAXone 1 gm In 50 Sodium Chloride 0.9% 50 ml @ 100 mls/hr IVPB Q24HR [facility] Rx#:[id number] Oral 2346 480 Output: Urine 1600 600 Other: Voiding Method Toilet Toilet # Voids 2 - Exam PHYSICAL EXAMINATION: GENERAL: 58-year-old gentleman complaining of significant bilateral leg pain at the time of my examination. HEENT: Head is atraumatic, normocephalic. Pupils equal, round. Sclera anicteric. Conjunctiva are clear. Mucous membranes of the mouth are moist. Neck is supple. There is no elevated jugular venous pressure.] bruit is heard. HEART EXAMINATION: Heart S1, S2 normal. No murmur or gallop heard. CHEST EXAMINATION: Lungs are clear with mild diminished air entry to the bases. ABDOMEN: Soft, nontender. Bowel sounds are heard. No organomegaly noted. EXTREMITIES:[ 1+ peripheral pulses with 1+ evidence of peripheral edema , bilateral leg pain bilateral leg redness in the lower extremities improving. NEUROLOGIC patient is awake, alert and oriented 3 . - Labs CBC & Chem 7: 12/13/18 05:50 12/15/18 05:45 Labs: Abnormal Lab Results - Last 24 Hours (Table) 12/14/18 12/14/18 12/14/18 Range/Units 12:56 16:39 20:50 Sodium 129 L (137-145) mmol/L Chloride 90 L (98-107) mmol/L Carbon Dioxide 31 H (22-30) mmol/L BUN 37 H (9-20) mg/dL Creatinine 1.60 H (0.66-1.25) mg/dL Glucose 360 H (74-99) mg/dL POC Glucose (mg/dL) 323 H 174 H (75-99) mg/dL 12/15/18 12/15/18 12/15/18 Range/Units 05:45 06:32 11:37 Sodium 135 L (137-145) mmol/L Chloride 92 L (98-107) mmol/L Carbon Dioxide 35 H (22-30) mmol/L BUN 40 H (9-20) mg/dL Creatinine 1.67 H (0.66-1.25) mg/dL Glucose 128 H (74-99) mg/dL POC Glucose (mg/dL) 115 H 214 H (75-99) mg/dL Microbiology - Last 24 Hours (Table) 12/11/18 07:51 Blood Culture - Preliminary Blood No Growth after 96 hours 12/11/18 22:00 Gram Stain - Final Sputum Sputum Culture - Final Assessment and Plan Plan: Assessment and plan #1 systolic congestive heart failure acute on chronic #2 bilateral leg pain #3 patient has a history of chronic pain #4 nonischemic cardiomyopathy with severely impaired left ventricular systolic function, EF less than 20%, status post AICD implant #5 severe COPD, oxygen dependent #6 chronic alcoholism #7 nicotine dependence #8 hypertension #9 diabetes, uncontrolled #10 hyperlipidemia #11 degenerative arthritis #12 chronic pancreatitis with a history of pancreatic pseudocyst and malabsorption #13 acute on chronic renal insufficiency #14, abnormality in troponin, likely secondary to congestive heart failure and severe COPD, patient is known to have cyst and abnormality in his troponins for over a year. Plan From cardiology's perspective, patient is stable for discharge once cleared by nephrology and primary. We will make him a follow-up appointment in the office post discharge. DNP note has been reviewed, I agree with a documented findings and plan of care. Patient was seen and examined.
--- NOTE | 2018-12-15 14:20 | XR ---
EXAMINATION TYPE: XR chest 2V DATE OF EXAM: 12/15/2018 COMPARISON: 11/16/2018 HISTORY: CHF follow-up, short of breath TECHNIQUE: Chest examined in frontal and lateral projections FINDINGS: Heart size is normal. Electronic device overlies left chest. The pulmonary vasculature is n ormal. Mild infiltrate is at the right base. Small right pleural effusion may be present. IMPRESSION: 1. Mild right lower lobe infiltrate and small right pleural effusion
[2018-12-15 16:41] LABS: Glucose,Whole Blood 396 mg/dL (75-99)
[2018-12-15] MEDS: SODIUM CHLORIDE 0.9% 1,000 ML IV SCH (17:27)
[2018-12-15 20:41] LABS: Glucose,Whole Blood 389 mg/dL (75-99)
[2018-12-15] MEDS: INSULIN DETEMIR (LEVEMIR) 100 UNIT/ML SYR SQ SCH (21:49)
[2018-12-16 06:10] LABS: Glucose,Whole Blood 110 mg/dL (75-99)
[2018-12-16] MEDS: INSULIN ASPART (NovoLOG) 100 UNIT/ML VIAL SQ SCH ×7 (06:12→20:26)
[2018-12-16] MEDS: PANTOPRAZOLE 40 MG TABLET PO SCH (06:44)
[2018-12-16] MEDS: LIPASE 5,000/PROTEASE 17,000/AMYLASE 24,000 PO SCH ×3 (06:44→17:26)
[2018-12-16 07:05] LABS: Basophils # (A) 0.1 k/uL (0-0.2); Basophils % (A) 1 %; Eosinophils # (A) 0.3 k/uL (0-0.7); Eosinophils % (A) 7 %; HCT 35.6 % (39.0-53.0); HGB 11.4 gm/dL (13.0-17.5); Lymphocytes # (A) 1.4 k/uL (1.0-4.8); Lymphocytes % (A) 32 %; MCH 29.4 pg (25.0-35.0); Mean Platelet Volume 6.9; Monocytes # (A) 0.5 k/uL (0-1.0); Monocytes % (A) 11 %; Neutrophils # (A) 1.9 k/uL (1.3-7.7); Neutrophils % (A) 44 %; Platelet Count 249 k/uL (150-450); RBC 3.87 m/uL (4.30-5.90); RDW 14.6 % (11.5-15.5); WBC 4.3 k/uL (3.8-10.6)
[2018-12-16 07:29] LABS: Calcium 9.6 mg/dL (8.4-10.2); Potassium 5.3 mmol/L (3.5-5.1)
[2018-12-16] MEDS: SYMBICORT 160-4.5 MCG INHALER INHALATION SCH ×3 (09:03→19:51)
[2018-12-16] MEDS: IPRATROPIUM-ALBUTEROL 3 ML NEB INHALATION SCH ×4 (09:03→19:52)
[2018-12-16] MEDS: ASPIRIN 81 MG PO SCH (09:34)
[2018-12-16] MEDS: HEPARIN SODIUM,PORCINE 5,000 UNIT/ML 1 ML VIAL SQ SCH ×3 (09:34→23:40)
[2018-12-16] MEDS: METOPROLOL SUCCINATE (ER) 25 MG TAB.ER.24H PO SCH (09:34)
[2018-12-16] MEDS: DOCUSATE 100 MG CAP PO SCH (09:34)
[2018-12-16] MEDS: HYDROcodone/APAP 10-325MG 1 EACH TAB PO PRN (09:34)
[2018-12-16] MEDS: PREGABALIN 100 MG CAP PO SCH ×3 (09:34→20:26)
[2018-12-16] MEDS: ATORVASTATIN 20 MG TAB PO SCH (09:34)
[2018-12-16] MEDS: FUROSEMIDE 10 MG/ML 4 ML VIAL IV SCH (09:34)
[2018-12-16] MEDS: POLYETHYLENE GLYCOL 3350 17 GM POWD.PACK PO SCH (09:35)
[2018-12-16] MEDS: SACUBITRIL/VALSARTAN 24 MG-26 MG TABLET PO SCH ×2 (09:36→20:26)
[2018-12-16 11:57] LABS: Glucose,Whole Blood 275 mg/dL (75-99)
[2018-12-16] MEDS: MORPHINE SULFATE 4 MG/ML SYRINGE IVP PRN ×3 (12:22→23:41)
[2018-12-16] MEDS: FUROSEMIDE 40 MG TAB PO SCH (15:45)
[2018-12-16 16:55] LABS: Glucose,Whole Blood 200 mg/dL (75-99)
[2018-12-16] MEDS: SODIUM CHLORIDE 0.9% 1,000 ML IV SCH (19:16)
[2018-12-16 20:23] LABS: Glucose,Whole Blood 182 mg/dL (75-99)
[2018-12-16] MEDS: INSULIN DETEMIR (LEVEMIR) 100 UNIT/ML SYR SQ SCH (20:26)
--- NOTE | 2018-12-17 01:57 | P.PN ---
Subjective Progress Note Date: 12/15/18 Principal diagnosis: Acute and chronic systolic CHF Patient is a 58-year-old male with a known history of nonischemic cardiomyopathy and prior AICD implantation admitted to the hospital due to acute on chronic CHF with systolic dysfunction. 12/15/2018 Patient says that his breathing is better. Otherwise still continued on IV Lasix now. Cardiology is on board. Blood pressure is fairly stable. BUN 40 and creatinine 1.67. Patient is otherwise clinically improving. No complaints of chest pain. No worsening shortness of breath. No fever no chills. No nausea vomiting or abdominal pain. Cardiology is following. Medications reviewed. Objective - Vital Signs Vital signs: Vital Signs Temp 97.2 F L 12/15/18 08:00 Pulse 74 12/15/18 08:31 Resp 17 12/15/18 08:00 BP 122/67 12/15/18 08:00 Pulse Ox 96 12/15/18 08:00 Intake & Output 12/14/18 12/15/18 12/15/18 18:59 06:59 18:59 Intake Total 2396 240 Output Total 1600 600 Balance 796 -360 Weight 60.5 kg Intake: Intake, IV Titration 50 Amount cefTRIAXone 1 gm In 50 Sodium Chloride 0.9% 50 ml @ 100 mls/hr IVPB Q24HR [facility] Rx#:[id number] Oral 2346 240 Output: Urine 1600 600 Other: Voiding Method Toilet Toilet # Voids 2 - Exam PHYSICAL EXAMINATION: Patient is lying in the bed comfortably, no acute distress, awake alert and oriented.. HEENT: Normocephalic. Neck is supple. Pupils reactive. Nostrils clear. Oral cavity is moist. Ears reveal no drainage. Neck reveals no JVD, carotid bruits, or thyromegaly. CHEST EXAMINATION: Trachea is central. Symmetrical expansion. Bibasilar diminished air entry and crackles. Lung smith clear to auscultation and percussion. CARDIAC: Normal S1, S2 with no gallops. No murmurs ABDOMEN: Soft. Bowel sounds normal. No organomegaly. No abdominal bruits. Extremities: reveal no edema. No clubbing or cyanosis Neurologically awake, alert, oriented x3 with well-coordinated movements. No focal deficits noted Skin: No rash or skin lesions. Psychiatric: Coperative. Nonsuicidal Musculoskeletal: No joint swelling or deformity. Normal range of motion. - Labs CBC & Chem 7: 12/16/18 06:30 12/16/18 06:30 Labs: Abnormal Lab Results - Last 24 Hours (Table) 12/14/18 12/14/18 12/14/18 Range/Units 11:52 12:56 16:39 Sodium 129 L (137-145) mmol/L Chloride 90 L (98-107) mmol/L Carbon Dioxide 31 H (22-30) mmol/L BUN 37 H (9-20) mg/dL Creatinine 1.60 H (0.66-1.25) mg/dL Glucose 360 H (74-99) mg/dL POC Glucose (mg/dL) 336 H 323 H (75-99) mg/dL 12/14/18 12/15/18 12/15/18 Range/Units 20:50 05:45 06:32 Sodium 135 L (137-145) mmol/L Chloride 92 L (98-107) mmol/L Carbon Dioxide 35 H (22-30) mmol/L BUN 40 H (9-20) mg/dL Creatinine 1.67 H (0.66-1.25) mg/dL Glucose 128 H (74-99) mg/dL POC Glucose (mg/dL) 174 H 115 H (75-99) mg/dL 12/15/18 Range/Units 11:37 Sodium (137-145) mmol/L Chloride (98-107) mmol/L Carbon Dioxide (22-30) mmol/L BUN (9-20) mg/dL Creatinine (0.66-1.25) mg/dL Glucose (74-99) mg/dL POC Glucose (mg/dL) 214 H (75-99) mg/dL Microbiology - Last 24 Hours (Table) 12/11/18 07:51 Blood Culture - Preliminary Blood No Growth after 96 hours 12/11/18 22:00 Gram Stain - Final Sputum Sputum Culture - Final Assessment and Plan Assessment: Acute on chronic CHF with systolic dysfunction. Bilateral lower action to pain Nonischemic cardiomyopathy with ejection fraction 20% status post AICD Severe COPD on oxygen dependent Chronic hypoxic respiratory failure Chronic alcohol abuse Nicotine addiction Hypertension Diabetes type 2 uncontrolled with hyperglycemia Hyperlipidemia Degenerative joint disease Chronic pancreatitis with history of pancreatic pseudocyst and malabsorption Acute on chronic kidney disease secondary to diuresis. Elevated troponin level likely due to CHF and severe COPD and has been chronically elevated. DVT prophylaxis Plan: Patient will be continued on IV diuresis and follow-up renal function and potassium level. Cardiology is on board. Further recommendations based on the clinical course. Prognosis is guarded with multiple medical problems and comorbid conditions. Time with Patient: Greater than 30
--- NOTE | 2018-12-17 01:58 | P.PN ---
Subjective Progress Note Date: 12/16/18 Principal diagnosis: Acute and chronic systolic CHF Patient is a 58-year-old male with a known history of nonischemic cardiomyopathy and prior AICD implantation admitted to the hospital due to acute on chronic CHF with systolic dysfunction. 12/15/2018 Patient says that his breathing is better. Otherwise still continued on IV Lasix now. Cardiology is on board. Blood pressure is fairly stable. BUN 40 and creatinine 1.67. Patient is otherwise clinically improving. No complaints of chest pain. No worsening shortness of breath. No fever no chills. No nausea vomiting or abdominal pain. Cardiology is following. 12/16/2018 Patient says that he is feeling better. IV Lasix will be changed to by mouth. Potassium level is 5.3. Otherwise creatinine level slightly increased to 1.7 today. We'll monitor lites tomorrow. Possible discharge in next 24 hours with more clinical and laboratory values improvement. No chest pain. No worsening shortness of breath. No nausea vomiting or abdominal pain. No diarrhea or dysuria. Currently saturating well on nausea cannula oxygen. Medications reviewed. Objective - Vital Signs Vital signs: Vital Signs Temp 98 F 12/16/18 15:49 Pulse 84 12/16/18 16:04 Resp 18 12/16/18 15:49 BP 107/69 12/16/18 15:49 Pulse Ox 93 L 12/16/18 15:57 Intake & Output 12/16/18 12/16/18 12/17/18 06:59 18:59 06:59 Intake Total 180 Balance 180 Weight 60.1 kg Intake: Oral 180 Other: Voiding Method Toilet Toilet # Voids 2 325 - Exam PHYSICAL EXAMINATION: Patient is lying in the bed comfortably, no acute distress, awake alert and oriented.. HEENT: Normocephalic. Neck is supple. Pupils reactive. Nostrils clear. Oral cavity is moist. Ears reveal no drainage. Neck reveals no JVD, carotid bruits, or thyromegaly. CHEST EXAMINATION: Trachea is central. Symmetrical expansion. Bibasilar diminished air entry and crackles. Lung smith clear to auscultation and percussion. CARDIAC: Normal S1, S2 with no gallops. No murmurs ABDOMEN: Soft. Bowel sounds normal. No organomegaly. No abdominal bruits. Extremities: reveal no edema. No clubbing or cyanosis Neurologically awake, alert, oriented x3 with well-coordinated movements. No focal deficits noted Skin: No rash or skin lesions. Psychiatric: Coperative. Nonsuicidal Musculoskeletal: No joint swelling or deformity. Normal range of motion. - Labs CBC & Chem 7: 12/16/18 06:30 12/16/18 06:30 Labs: Abnormal Lab Results - Last 24 Hours (Table) 12/15/18 12/16/18 12/16/18 Range/Units 20:40 06:09 06:30 RBC 3.87 L (4.30-5.90) m/uL Hgb 11.4 L (13.0-17.5) gm/dL Hct 35.6 L (39.0-53.0) % Sodium (137-145) mmol/L Potassium (3.5-5.1) mmol/L Chloride (98-107) mmol/L Carbon Dioxide (22-30) mmol/L BUN (9-20) mg/dL Creatinine (0.66-1.25) mg/dL Glucose (74-99) mg/dL POC Glucose (mg/dL) 389 H 110 H (75-99) mg/dL 12/16/18 12/16/18 12/16/18 Range/Units 06:30 11:31 16:44 RBC (4.30-5.90) m/uL Hgb (13.0-17.5) gm/dL Hct (39.0-53.0) % Sodium 136 L (137-145) mmol/L Potassium 5.3 H (3.5-5.1) mmol/L Chloride 91 L (98-107) mmol/L Carbon Dioxide 37 H (22-30) mmol/L BUN 48 H (9-20) mg/dL Creatinine 1.71 H (0.66-1.25) mg/dL Glucose 109 H (74-99) mg/dL POC Glucose (mg/dL) 275 H 200 H (75-99) mg/dL Microbiology - Last 24 Hours (Table) 12/11/18 07:51 Blood Culture - Preliminary Blood No Growth after 120 hours Assessment and Plan Assessment: Acute on chronic CHF with systolic dysfunction. Bilateral lower action to pain Nonischemic cardiomyopathy with ejection fraction 20% status post AICD Severe COPD on oxygen dependent Chronic hypoxic respiratory failure Chronic alcohol abuse Nicotine addiction Hypertension Diabetes type 2 uncontrolled with hyperglycemia Hyperlipidemia Degenerative joint disease Chronic pancreatitis with history of pancreatic pseudocyst and malabsorption Acute on chronic kidney disease secondary to diuresis. Elevated troponin level likely due to CHF and severe COPD and has been chronically elevated. DVT prophylaxis Plan: Patient is continued on IV diuresis and follow-up renal function and potassium level. Lasix changed to by mouth. Cardiology is on board. Further recomm endations based on the clinical course. Prognosis is guarded with multiple medical problems and comorbid conditions. Time with Patient: Greater than 30
[2018-12-17] MEDS: PANTOPRAZOLE 40 MG TABLET PO SCH (06:26)
[2018-12-17] MEDS: LIPASE 5,000/PROTEASE 17,000/AMYLASE 24,000 PO SCH ×2 (06:27→12:23)
[2018-12-17 06:48] LABS: Glucose,Whole Blood 151 mg/dL (75-99)
[2018-12-17] MEDS: INSULIN ASPART (NovoLOG) 100 UNIT/ML VIAL SQ SCH ×4 (06:50→12:23)
[2018-12-17] MEDS: MORPHINE SULFATE 4 MG/ML SYRINGE IVP PRN (06:53)
[2018-12-17] MEDS: IPRATROPIUM-ALBUTEROL 3 ML NEB INHALATION SCH ×2 (09:05→12:14)
[2018-12-17] MEDS: SYMBICORT 160-4.5 MCG INHALER INHALATION SCH (09:05)
[2018-12-17] MEDS: DOCUSATE 100 MG CAP PO SCH (09:58)
[2018-12-17] MEDS: ATORVASTATIN 20 MG TAB PO SCH (09:58)
[2018-12-17] MEDS: METOPROLOL SUCCINATE (ER) 25 MG TAB.ER.24H PO SCH (09:58)
[2018-12-17] MEDS: ASPIRIN 81 MG PO SCH (09:58)
[2018-12-17] MEDS: PREGABALIN 100 MG CAP PO SCH (09:58)
[2018-12-17] MEDS: HEPARIN SODIUM,PORCINE 5,000 UNIT/ML 1 ML VIAL SQ SCH (09:58)
[2018-12-17] MEDS: FUROSEMIDE 40 MG TAB PO SCH (09:58)
[2018-12-17] MEDS: SACUBITRIL/VALSARTAN 24 MG-26 MG TABLET PO SCH (09:59)
[2018-12-17] MEDS: POLYETHYLENE GLYCOL 3350 17 GM POWD.PACK PO SCH (09:59)
[2018-12-17 11:53] LABS: Glucose,Whole Blood 252 mg/dL (75-99)
[2018-12-17 12:34] LABS: Calcium 9.4 mg/dL (8.4-10.2); Potassium 5.3 mmol/L (3.5-5.1)
[2018-12-17] MEDS ORDERED: SODIUM POLYSTYRENE SULFONATE 15 GM/60 ML BOTTLE PO STA (12:45)
[2018-12-17 12:48] VITALS: BP 95/56; PULSE 87; RESP 18; TEMP 98.4
--- NOTE | 2018-12-18 07:34 | CDI ---
Documentation Clarification Form Date: 12/14/2018 10:44:00 AM From: Joi AdamsKEMAL, CCDS Admit Date: 12/10/2018 5:40:00 PM Patient Name: Jamal Choudhury Visit Number: [id number] Discharge Date: 12/17/2018 1:55:00 PM ATTENTION: The Clinical Documentation Specialists (CDI) and [facility] Coding Staff appreciate your assistance in clarifying documentation. Please respond to the clarification below the line at the bottom and electronically sign. The CDI & [facility] Coding staff will review the response and follow-up if needed. Please note: Queries are made part of the Legal Health Record. If you have any questions, please contact the author of this message via ITS. Dr. Cameron Bryan: Patient was admitted with CHF, bilateral leg pain, SOB, cough & 3+ pitting edema. Per the cardiology consult & subsequent progress notes: "acute on chronic renal insufficiency." History/Risk Factors: Chronic systolic CHF, Chronic pain, Nonischemic cardiomyopathy w/EF <20% w/AICD implant, Severe COPD, O2 dep; Chronic alcoholism, Smoker, Hypertension, DM II, Hyperlipidemia, Degenerative arthritis and Chronic pancreatitis. Clinical Indicators: Diagnosed with Acute on chronic systolic CHF. BUN: (17) - 22^ - 26^ - 27^ Creatinine: (0.92) - 1.33^, 1.51^ - 1.80^ GFR: >90 - 58 - 50 - 48 Baseline BUN/Cr/GFR unknown or not documented, nephrology was not consulted. RAD: CXR: cardiomegaly. Venous US BLE: Edematous soft tissues. No DVT bilaterally. Repeat CXR: CHF w/basilar pulmonary infiltrates. Treatment: IV Lasix, IV Ms, po ASA, o [place], Heparin sq, INH Albuterol, INH Symbicort, IV Rocephin In order to capture the severity of the patient's documented renal insufficiency or if chronic renal disease is ruled out: CKD Ruled Out CKD Ruled In: CKD Stage 1 (GFR > 90) CKD Stage 2 (GFR 60-89) CKD Stage 3 (GFR 30-59) Other, please specify Unable to determine (Last Revision: June 2017) Unable to determine MTDD
--- NOTE | 2018-12-24 19:58 | P.DS ---
Providers Date of admission: 12/10/18 17:40 Expected date of discharge: 12/17/18 Attending physician: Yusuf Lind Consults: 12/10/18 17:36 Consult Physician Routine Consulting Provider: Debora Ayala Consult Reason/Comments: chf exacerbation Do you want consulting provider notified?: Yes 12/14/18 08:19 Consult Physician Routine Consulting Provider: Jacoby Leyva Consult Reason/Comments: IDDM poor control Do you want consulting provider notified?: Yes Primary care physician: Yusuf Lind Hospital Course: Discharge diagnosis Acute on chronic CHF with systolic dysfunction. Bilateral lower extremity pain Nonischemic cardiomyopathy with ejection fraction 20% status post AICD Severe COPD on oxygen dependent Chronic hypoxic respiratory failure Chronic alcohol abuse Nicotine addiction Hypertension Diabetes type 2 uncontrolled with hyperglycemia Hyperlipidemia Degenerative joint disease Chronic pancreatitis with history of pancreatic pseudocyst and malabsorption Acute on chronic kidney disease secondary to diuresis. Elevated troponin level likely due to CHF and severe COPD and has been chronically elevated. DVT prophylaxis Hospital course Patient is a 58-year-old male with a known history of nonischemic cardiomyopathy and prior AICD implantation admitted to the hospital due to acute on chronic CHF with systolic dysfunction. 12/15/2018 Patient says that his breathing is better. Otherwise still continued on IV Lasix now. Cardiology is on board. Blood pressure is fairly stable. BUN 40 and creatinine 1.67. Patient is otherwise clinically improving. No complaints of chest pain. No worsening shortness of breath. No fever no chills. No nausea vomiting or abdominal pain. Cardiology is following. 12/16/2018 Patient says that he is feeling better. IV Lasix will be changed to by mouth. Potassium level is 5.3. Otherwise creatinine level slightly increased to 1.7 today. We'll monitor lites tomorrow. Possible discharge in next 24 hours with more clinical and laboratory values improvement. No chest pain. No worsening shortness of breath. No nausea vomiting or abdominal pain. No diarrhea or dysuria. Currently saturating well on nausea cannula oxygen. 12/17/2018 Patient says that he is feeling better. No complaints of chest pain or shortness of breath. Percussion is still at 5.3. Patient was given a dose of Kayexalate. Renal function is stable at 1.73. No complaints of nausea vomiting or abdominal pain. No diarrhea. Patient is currently oxygenating well. No other acute overnight issues. Patient wants to be discharged home and says he will leave A if he doesn't get discharged. PHYSICAL EXAMINATION: Patient is lying in the bed comfortably, no acute distress, awake alert and oriented.. HEENT: Normocephalic. Neck is supple. Pupils reactive. Nostrils clear. Oral cavity is moist. Ears reveal no drainage. Neck reveals no JVD, carotid bruits, or thyromegaly. CHEST EXAMINATION: Trachea is central. Symmetrical expansion. Bilateral slow air entry and scattered rhonchi. CARDIAC: Normal S1, S2 with no gallops. No murmurs ABDOMEN: Soft. Bowel sounds normal. No organomegaly. No abdominal bruits. Extremities: reveal no edema. No clubbing or cyanosis Neurologically awake, alert, oriented x3 with well-coordinated movements. No focal deficits noted Skin: No rash or skin lesions. Psychiatric: Coperative. Nonsuicidal Musculoskeletal: No joint swelling or deformity. Normal range of motion. Discharge vitals reviewed. Total time taken greater than 35 minutes including 18 minutes for counseling and coordination of care. Patient Condition at Discharge: Fair Plan - Discharge Summary Discharge Rx Participant: No New Discharge Prescriptions: New Furosemide [Lasix] 40 mg PO BID@0900,1600 tab Continue Pregabalin [Lyrica] 150 mg PO TID Zolpidem [Ambien] 10 mg PO HS PRN PRN Reason: Insomnia Docusate [Colace] 100 mg PO DAILY Metoprolol Succinate (ER) [Toprol XL] 25 mg PO DAILY #30 tab.er.24h Sacubitril/Valsartan [Entresto 24 mg-26 mg Tablet] 1 tab PO BID HYDROcodone/APAP 10-325MG [[place] 10-325] 1 tab PO Q4HR PRN #120 tab PRN Reason: Pain Gabapentin [Neurontin] 400 mg PO BID Budesonide/Formoterol Fumarate [Symbicort 160-4.5 Mcg Inhaler] 2 puff INHALATION RT-BID Polyethylene Glycol 3350 [Miralax] 17 gm PO DAILY Nitroglycerin Sl Tabs [Nitrostat] 0.4 mg SUBLINGUAL Q5M PRN PRN Reason: Chest Pain Insulin Lispro [humaLOG Kwikpen] See Protocol SQ ACHS Tamsulosin HCl [Flomax] 0.4 mg PO DAILY Lipase/Protease/Amylase [Creon Dr 36,000 Units Capsule] 36,000 units PO TID Atorvastatin [Lipitor] 20 mg PO DAILY Albuterol Nebulized [Ventolin Nebulized] 2.5 mg INHALATION RT-Q6H Insulin Degludec [Tresiba] 28 units SQ QAM Aspirin 81 mg PO DAILY chew Discontinued Furosemide [Lasix] 60 mg PO DAILY Discharge Medication List Pregabalin [Lyrica] 150 mg PO TID 03/22/18 [History] Docusate [Colace] 100 mg PO DAILY 05/04/18 [History] Zolpidem [Ambien] 10 mg PO HS PRN 05/04/18 [History] Metoprolol Succinate (ER) [Toprol XL] 25 mg PO DAILY #30 tab.er.24h 05/09/18 [Rx] Sacubitril/Valsartan [Entresto 24 mg-26 mg Tablet] 1 tab PO BID 05/14/18 [History] HYDROcodone/APAP 10-325MG [[place] 10-325] 1 tab PO Q4HR PRN #120 tab 05/18/18 [Rx] Gabapentin [Neurontin] 400 mg PO BID 07/18/18 [History] Albuterol Nebulized [Ventolin Nebulized] 2.5 mg INHALATION RT-Q6H 11/16/18 [History] Atorvastatin [Lipitor] 20 mg PO DAILY 11/16/18 [History] Budesonide/Formoterol Fumarate [Symbicort 160-4.5 Mcg Inhaler] 2 puff INHALATION RT-BID 11/16/18 [History] Insulin Degludec [Tresiba] 28 units SQ QAM 11/16/18 [History] Insulin Lispro [humaLOG Kwikpen] See Protocol SQ ACHS 11/16/18 [History] Lipase/Protease/Amylase [[place] 36,000 Units Capsule] 36,000 units PO TID 11/16/18 [History] Nitroglycerin Sl Tabs [Nitrostat] 0.4 mg SUBLINGUAL Q5M PRN 11/16/18 [History] Polyethylene Glycol 3350 [Miralax] 17 gm PO DAILY 11/16/18 [History] Tamsulosin HCl [Flomax] 0.4 mg PO DAILY 11/16/18 [History] Aspirin 81 mg PO DAILY chew 11/18/18 [Rx] Furosemide [Lasix] 40 mg PO BID@0900,1600 tab 12/17/18 [Rx] Follow up Appointment(s)/Referral(s): Jacoby Leyva MD [REFERRING] - 1 Week (Pt to make appointment as the office is closed.) Yusuf Lind MD [Primary Care Provider] - 1-2 days (Pt to make appointment as the office is closed.) Patient Instructions/Handouts: Heart Failure (DC) Activity/Diet/Wound Care/Special Instructions: Home Care - [facility] - [phone] Discharge Disposition: HOME WITH HOME HEALTH SERVICES
== END 2018-12-17 13:55 | disposition home health service (06) | DRG 291 ==
LOC: EC 15:34 → 3SCARD 17:40
PROVIDERS: ADMIT Family Medicine; ATTEND Family Medicine
DX: I13.0 Hypertensive heart and chronic kidney disease with heart failure and stage 1 through stage 4 chronic kidney disease, or unspecified chronic kidney disease (principal); I50.23 Acute on chronic systolic (congestive) heart failure; E87.2 Acidosis; K86.1 Other chronic pancreatitis; J96.11 Chronic respiratory failure with hypoxia; E87.1 Hypo-osmolality and hyponatremia; J44.0 Chronic obstructive pulmonary disease with (acute) lower respiratory infection; Z68.1 Body mass index [BMI] 19.9 or less, adult; E44.0 Moderate protein-calorie malnutrition; I42.9 Cardiomyopathy, unspecified; J20.9 Acute bronchitis, unspecified; N18.9 Chronic kidney disease, unspecified; K21.9 Gastro-esophageal reflux disease without esophagitis; E78.5 Hyperlipidemia, unspecified; E11.40 Type 2 diabetes mellitus with diabetic neuropathy, unspecified; E11.22 Type 2 diabetes mellitus with diabetic chronic kidney disease; E11.65 Type 2 diabetes mellitus with hyperglycemia; G89.29 Other chronic pain; M19.90 Unspecified osteoarthritis, unspecified site; T50.2X5A Adverse effect of carbonic-anhydrase inhibitors, benzothiadiazides and other diuretics, initial encounter; J98.6 Disorders of diaphragm; F10.20 Alcohol dependence, uncomplicated; F17.200 Nicotine dependence, unspecified, uncomplicated; F17.210 Nicotine dependence, cigarettes, uncomplicated; R79.89 Other specified abnormal findings of blood chemistry; Z99.81 Dependence on supplemental oxygen; Z95.810 Presence of automatic (implantable) cardiac defibrillator; Z79.899 Other long term (current) drug therapy; Z79.51 Long term (current) use of inhaled steroids; Z79.4 Long term (current) use of insulin; Z79.82 Long term (current) use of aspirin; Z86.73 Personal history of transient ischemic attack (TIA), and cerebral infarction without residual deficits; Z87.01 Personal history of pneumonia (recurrent); Z88.6 Allergy status to analgesic agent; Z88.5 Allergy status to narcotic agent; Z91.048 Other nonmedicinal substance allergy status; Z98.890 Other specified postprocedural states; Z82.49 Family history of ischemic heart disease and other diseases of the circulatory system; Z82.5 Family history of asthma and other chronic lower respiratory diseases; Z83.3 Family history of diabetes mellitus
CPT/HCPCS: 36415; 71045; 71046; 80048; 80053; 80320; 81001; 83036; 83605; 83735; 83880; 84484; 85025; 85610; 87040; 87070; 87086; 87205; 93005; 93306; 93970; 94640; 94760; 96374; 96375; 96376; 99285

== ENCOUNTER 2019-02-06 06:46 | Inpatient (IN) | payer MEDICARE, OTHER ==
[2019-02-06 07:00] LABS: Glucose,Whole Blood 409 mg/dL (75-99)
[2019-02-06] MEDS ORDERED: IPRATROPIUM-ALBUTEROL 3 ML NEB INHALATION STA (07:02)
--- NOTE | 2019-02-06 07:05 | ED ---
SOB HPI - General Chief Complaint: Shortness of Breath Stated Complaint: SOB/altered mental status Time Seen by Provider: 02/06/19 06:53 Source: patient, family, RN notes reviewed Mode of arrival: wheelchair Limitations: physical limitation - History of Present Illness Initial Comments: 58-year-old male presents emergency Department chief complaint of dyspnea, altered mental status. Patient had a bout of confusion only lasted a few seconds but he has been steady decline over the last few days. He was advised to go to the hospital a few days ago by his client technologies specialist. Patient states that he was told that he had a large pleural effusion. Patient does have known CHF with an EF less than 20. Patient has been more lethargic than usual. Patient denies any fevers or chills. He does complain of some chest discomfort, dyspnea. He also complaint abdominal pain. He has no dysuria no hematuria. Patient denies any change in medications. Family states that they have been bugging him to come to the hospital for a while. Family states that is an normal baseline at this time. - Related Data Home Medications Medication Instructions Recorded Confirmed Pregabalin [Lyrica] 150 mg PO TID 03/22/18 12/10/18 Docusate [Colace] 100 mg PO DAILY 05/04/18 12/10/18 Zolpidem [Ambien] 10 mg PO HS PRN 05/04/18 12/10/18 Sacubitril/Valsartan [Entresto 24 1 tab PO BID 05/14/18 12/10/18 mg-26 mg Tablet] Gabapentin [Neurontin] 400 mg PO BID 07/18/18 12/10/18 Albuterol Nebulized [Ventolin 2.5 mg INHALATION RT-Q6H 11/16/18 12/10/18 Nebulized] Atorvastatin [Lipitor] 20 mg PO DAILY 11/16/18 12/10/18 Budesonide/Formoterol Fumarate 2 puff INHALATION RT-BID 11/16/18 12/10/18 [Symbicort 160-4.5 Mcg Inhaler] Insulin Degludec [Tresiba] 28 units SQ QAM 11/16/18 12/10/18 Insulin Lispro [humaLOG Kwikpen] See Protocol SQ ACHS 11/16/18 12/10/18 Lipase/Protease/Amylase [[place]ia [place] 36,000 units PO TID 11/16/18 12/10/18 36,000 Units Capsule] Nitroglycerin Sl Tabs [Nitrostat] 0.4 mg SUBLINGUAL Q5M PRN 11/16/18 12/10/18 Polyethylene Glycol 3350 [Miralax] 17 gm PO DAILY 11/16/18 12/10/18 Tamsulosin HCl [Flomax] 0.4 mg PO DAILY 11/16/18 12/10/18 Previous Rx's Medication Instructions Recorded Metoprolol Succinate (ER) [Toprol 25 mg PO DAILY #30 tab.er.24h 05/09/18 XL] HYDROcodone/APAP 10-325MG [Shirley 1 tab PO Q4HR PRN #120 tab 05/18/18 10-325] Aspirin 81 mg PO DAILY chew 11/18/18 Furosemide [Lasix] 40 mg PO BID@0900,1600 tab 12/17/18 Allergies Allergy/AdvReac Type Severity Reaction Status Date / Time meperidine HCl [From Demerol] AdvReac Severe Rapid Verified 12/10/18 16:09 Heart Rate/VOMITING ibuprofen [From Motrin] AdvReac Vomiting Verified 12/10/18 16:09 mayonnaise AdvReac Nausea & Verified 12/10/18 16:09 Vomiting & Diarrhea Review of Systems ROS Statement: Those systems with pertinent positive or pertinent negative responses have been documented in the HPI. ROS Other: All systems not noted in ROS Statement are negative. Past Medical History Past Medical History: Heart Failure, COPD, CVA/TIA, Diabetes Mellitus, GERD/Reflux, Hyperlipidemia, Hypertension, Osteoarthritis (OA), Pneumonia, Renal Disease Additional Past Medical History / Comment(s): Severe COPD, chronic hypoxic respiratory failure, home oxygen at 4L/NC ATC, nonishemic cardiomyopathy, AICD/pacer placement, TIA in 2018, pt denies past alcoholism, chronic lou creatitis, 3 pancreatic pseudocysts, IDDM type II, neuropathy biltaral legs/feet, chronic smoker, bilateral tinnitis occasionally, history of perforated left tympanic membranes-[place] left ear, pt states he has been treated for L arm pain with physical therapy but still having problems and has decreased ROM, chronic generalized pain, migraines, sinusitis History of Any Multi-Drug Resistant Organisms: None Reported Past Surgical History: AICD, Pacemaker Additional Past Surgical History / Comment(s): colonoscopy, "lump" removed from left side of neck. Past Anesthesia/Blood Transfusion Reactions: No Reported Reaction Type of Cardiac Device: Permanent Pacemaker, AICD Device Placement Date:: 09/2016 Past Psychological History: No Psychological Hx Reported Smoking Status: Current some day smoker Past Alcohol Use History: None Reported Past Drug Use History: None Reported - Past Family History Father Family Medical History: Congestive Heart Failure (CHF), COPD, Diabetes Mellitus Additional Family Medical History / Comment(s): mrsa, asbestoes exposure/lungs Mother Family Medical History: Diabetes Mellitus, Hypertension Additional Family Medical History / Comment(s): Mother is 87yrs old. General Exam Limitations: physical limitation General appearance: alert, in no apparent distress Head exam: Present: atraumatic, normocephalic, normal inspection Eye exam: Present: normal appearance, PERRL, EOMI. Absent: scleral icterus, conjunctival injection, periorbital swelling ENT exam: Present: normal exam, normal oropharynx, mucous membranes moist, TM's normal bilaterally Neck exam: Present: normal inspection, full ROM. Absent: tenderness, meningismus, lymphadenopathy Respiratory exam: Present: wheezes, rales. Absent: normal lung sounds bilaterally, respiratory distress, rhonchi, stridor Cardiovascular Exam: Present: regular rate, normal rhythm, normal heart sounds. Absent: systolic murmur, diastolic murmur, rubs, gallop, clicks GI/Abdominal exam: Present: soft, distended, normal bowel sounds. Absent: tenderness, guarding, rebound, rigid Extremities exam: Present: pedal edema Back exam: Absent: CVA tenderness (R), CVA tenderness (L) Neurological exam: Present: alert, oriented X3 Skin exam: Present: warm, dry, intact, normal color. Absent: rash Course Vital Signs 02/06/19 02/06/19 02/06/19 06:58 07:02 07:10 Temperature 97.8 F 97.7 F Pulse Rate 98 95 Respiratory 24 24 18 Rate Blood Pressure 137/75 120/82 O2 Sat by Pulse 99 99 Oximetry 02/06/19 02/06/19 02/06/19 07:36 07:50 08:01 Temperature Pulse Rate 98 100 102 H Respiratory 18 Rate Blood Pressure 111/79 O2 Sat by Pulse 99 Oximetry 02/06/19 08:37 Temperature Pulse Rate 102 H Respiratory 18 Rate Blood Pressure 133/73 O2 Sat by Pulse 98 Oximetry Medical Decision Making - Medical Decision Making Patiently admitted for a CHF exacerbation, elevated troponin. Case discussed with Dr. Lind who will admit the patient. Consult cardiology. - Lab Data Result diagrams: 02/06/19 07:05 02/06/19 07:05 Lab Results 02/06/19 02/06/19 02/06/19 Range/Units 06:55 07:05 07:05 WBC 4.7 (3.8-10.6) k/uL RBC 3.91 L (4.30-5.90) m/uL Hgb 11.6 L (13.0-17.5) gm/dL Hct 36.7 L (39.0-53.0) % MCV 94.0 (80.0-100.0) fL MCH 29.7 (25.0-35.0) pg MCHC 31.6 (31.0-37.0) g/dL RDW 14.4 (11.5-15.5) % Plt Count 166 (150-450) k/uL Neutrophils % 59 % Lymphocytes % 24 % Monocytes % 9 % Eosinophils % 3 % Basophils % 1 % Neutrophils # 2.8 (1.3-7.7) k/uL Lymphocytes # 1.1 (1.0-4.8) k/uL Monocytes # 0.4 (0-1.0) k/uL Eosinophils # 0.1 (0-0.7) k/uL Basophils # 0.0 (0-0.2) k/uL Manual Slide Review Performed Hypochromasia Moderate PT (9.0-12.0) sec INR (<1.2) APTT (22.0-30.0) sec Sodium 136 L (137-145) mmol/L Potassium 4.9 (3.5-5.1) mmol/L Chloride 98 (98-107) mmol/L Carbon Dioxide 30 (22-30) mmol/L Anion Gap 8 mmol/L BUN 36 H (9-20) mg/dL Creatinine 1.15 (0.66-1.25) mg/dL Est GFR (CKD-EPI)AfAm 80 (>60 ml/min/1.73 sqM) Est GFR (CKD-EPI)NonAf 69 (>60 ml/min/1.73 sqM) Glucose 397 H (74-99) mg/dL POC Glucose (mg/dL) 409 H (75-99) mg/dL POC Glu Labor Operator ID Hilda Donald Calcium 9.0 (8.4-10.2) mg/dL Magnesium 2.5 H (1.6-2.3) mg/dL Total Bilirubin 0.6 (0.2-1.3) mg/dL AST 40 (17-59) U/L ALT 38 (21-72) U/L Alkaline Phosphatase 121 (38-126) U/L Troponin I (0.000-0.034) ng/mL NT-Pro-B Natriuret Pep pg/mL Total Protein 6.5 (6.3-8.2) g/dL Albumin 4.3 (3.5-5.0) g/dL 02/06/19 02/06/19 02/06/19 Range/Units 07:05 07:05 07:05 WBC (3.8-10.6) k/uL RBC (4.30-5.90) m/uL Hgb (13.0-17.5) gm/dL Hct (39.0-53.0) % MCV (80.0-100.0) fL MCH (25.0-35.0) pg MCHC (31.0-37.0) g/dL RDW (11.5-15.5) % Plt Count (150-450) k/uL Neutrophils % % Lymphocytes % % Monocytes % % Eosinophils % % Basophils % % Neutrophils # (1.3-7.7) k/uL Lymphocytes # (1.0-4.8) k/uL Monocytes # (0-1.0) k/uL Eosinophils # (0-0.7) k/uL Basophils # (0-0.2) k/uL Manual Slide Review Hypochromasia PT 11.5 (9.0-12.0) sec INR 1.1 (<1.2) APTT 26.4 (22.0-30.0) sec Sodium (137-145) mmol/L Potassium (3.5-5.1) mmol/L Chloride (98-107) mmol/L Carbon Dioxide (22-30) mmol/L Anion Gap mmol/L BUN (9-20) mg/dL Creatinine (0.66-1.25) mg/dL Est GFR (CKD-EPI)AfAm (>60 ml/min/1.73 sqM) Est GFR (CKD-EPI)NonAf (>60 ml/min/1.73 sqM) Glucose (74-99) mg/dL POC Glucose (mg/dL) (75-99) mg/dL POC Glu Labor Operator ID Calcium (8.4-10.2) mg/dL Magnesium (1.6-2.3) mg/dL Total Bilirubin (0.2-1.3) mg/dL AST (17-59) U/L ALT (21-72) U/L Alkaline Phosphatase (38-126) U/L Troponin I 0.055 H* (0.000-0.034) ng/mL NT-Pro-B Natriuret Pep 49411 pg/mL Total Protein (6.3-8.2) g/dL Albumin (3.5-5.0) g/dL - EKG Data -: EKG Interpreted by Me EKG Comments: EKG performed at 6:57 sinus rhythm with PVC, left bundle rate of 92 WI 178 QRS 122 QT/QTC 378/467 Critical Care Time Critical Care Time: Yes Total Critical Care Time: 35 Critical Care Time: Total of 35 minutes of critical care time were used to initially evaluated patient, for her labs, review of her studies, imaging studies and treatment with discussed the case with accepting physician. Patient had CBC, CMP, Magnesium and Ordered. EKG Showed No Acute Findings. Patient's Troponin Is 0.055 Which She Does Have a Chronically Elevated Troponin. Patient's BMP Is Elevated at 10,500 Patient Chest X-Ray Shows Evidence of Pulmonary Edema. Patient's Has No Infectious Signs or Concerns for Pneumonia at This Time. Patient's Legs Are Swollen Consistent with CHF Exacerbation. Patient Will Be Admitted for IV Diuresis. Disposition Clinical Impression: COPD (chronic obstructive pulmonary disease), Adult respiratory distress syndro me, CHF exacerbation Disposition: ADMITTED IP TO THIS HOSP Condition: Serious Referrals: Yusuf Lind MD [Primary Care Provider] - 1-2 days
[2019-02-06 07:26] LABS: Albumin 4.3 g/dL (3.5-5.0); Magnesium 2.5 mg/dL (1.6-2.3); Potassium 4.9 mmol/L (3.5-5.1); Total Bilirubin 0.6 mg/dL (0.2-1.3); Total Protein 6.5 g/dL (6.3-8.2)
[2019-02-06 07:41] LABS: INR 1.1 (<1.2); Partial Thromboplastin Time 26.4 sec (22.0-30.0); Prothrombin Time 11.5 sec (9.0-12.0)
[2019-02-06 07:42] LABS: Basophils % (A) 1 %; Eosinophils # (A) 0.1 k/uL (0-0.7); Eosinophils % (A) 3 %; HCT 36.7 % (39.0-53.0); HGB 11.6 gm/dL (13.0-17.5); Hypochromasia Moderate; Lymphocytes # (A) 1.1 k/uL (1.0-4.8); Lymphocytes % (A) 24 %; MCH 29.7 pg (25.0-35.0); MCHC 31.6 g/dL (31.0-37.0); Mean Platelet Volume 6.7; Monocytes # (A) 0.4 k/uL (0-1.0); Monocytes % (A) 9 %; Neutrophils # (A) 2.8 k/uL (1.3-7.7); Neutrophils % (A) 59 %; Platelet Count 166 k/uL (150-450); RBC 3.91 m/uL (4.30-5.90); RDW 14.4 % (11.5-15.5); WBC 4.7 k/uL (3.8-10.6)
--- NOTE | 2019-02-06 07:42 | XR ---
EXAMINATION TYPE: XR chest 2V DATE OF EXAM: 02/06/2019 COMPARISON: 12/15/2018 TECHNIQUE: PA and lateral views submitted. HISTORY: Difficulty breathing FINDINGS: Cardiac device seen with bilateral perihilar infiltrates. Tiny effusion suspected with no pneumothora x. Atherosclerotic change aorta. IMPRESSION: 1. Bilateral infiltrate and tiny effusion correlate for pneumonia versus CHF.
[2019-02-06] MEDS ORDERED: FUROSEMIDE 10 MG/ML 4 ML VIAL IV STA (08:26)
[2019-02-06] MEDS ORDERED: IPRATROPIUM-ALBUTEROL 3 ML NEB INHALATION PRN (09:04)
[2019-02-06 09:35] LABS: Appearance,Urine Clear (Clear); Bilirubin,Urine Negative (Negative); Blood,Urine Negative (Negative); Color,Urine Yellow; Glucose,Urine (UA) 4+ (Negative); Ketones,Urine Negative (Negative); Leukocyte Esterase,Urine Negative (Negative); Mucus,Urine Rare /hpf; Nitrite,Urine Negative (Negative); Protein,Urine 1+ (Negative); Sperm,Urine Rare /hpf; Urobilinogen,Urine <2.0 mg/dL (<2.0); WBC,Urine <1 /hpf (0-5)
[2019-02-06 09:51] LABS: Glucose,Whole Blood 478 mg/dL (75-99)
[2019-02-06 10:23] VITALS: BMI 20.2
[2019-02-06] MEDS: HYDROcodone/APAP 10-325MG 1 EACH TAB PO PRN ×3 (11:41→21:06)
[2019-02-06 12:16] LABS: Glucose,Whole Blood 403 mg/dL (75-99)
--- NOTE | 2019-02-06 12:18 | P.CNPUL ---
History of Present Illness Consult date: 02/06/19 Requesting physician: Yusuf Lind Reason for consult: dyspnea, abnormal CXR/CT Chief complaint: Lower extremity edema, shortness of breath, chest pain, altered mental stat History of present illness: This is a very pleasant 58-year-old gentleman who follows with Dr. Lind as his primary care physician. He has a history of diabetes mellitus, CVA/TIA, hypertension, hyperlipidemia, severe nonischemic cardiomyopathy with an AICD placement, previous alcoholism, chronic pancreatitis with pancreatic pseudocyst, neuropathy, perforated left tympanic membrane with difficulty hearing. He also has severe oxygen dependent chronic hypoxic respiratory failure with home oxygen at 4 L per nasal cannula around the clock. He continues to smoke. He follows with Dr. Khanna in our office for the same. He presented here to the emergency room earlier this morning with some altered mental status thinking his sister was visiting nurse, chest discomfort, shortness of breath and increased swelling of the lower extremities. Asked x-ray shows evidence of COPD with bilateral infiltrates and tiny effusions with evidence of fluid volume overload. White count 4.7. Hemoglobin 11.6. Sodium 136. Potassium 4.9. Creatinine 1.15. Troponin 0.055. ProBNP 10,500. Urinalysis with 4+ glucose. Current bl ood glucose 478. He's been initiated on DuoNeb inhalations, Symbicort and the IV diuretics. He is on Entresto. Most recent echocardiogram revealed severely impaired left ventricular systolic function with ejection fraction 20-25%. Review of Systems REVIEW OF SYSTEMS: CONSTITUTIONAL: Positive for minimal weight gain. EYES: Denies change in vision. EARS, NOSE, MOUTH, THROAT: Denies headaches, denies sore throat. CARDIOVASCULAR: Positive for chest pain, no palpitations or syncopal episodes. RESPIRATORY: Positive for shortness of breath, no cough, congestion or hemop tysis. GASTROINTESTINAL: Denies change in appetite, denies abdominal pain GENITOURINARY: Denies hematuria, denies infections. MUSKULOSKELETAL: Positive for pain, positive for swelling. INTEGUMENTARY: Denies rash, denies eczema. NEUROLOGICAL: Denies recent memory loss, no recent seizure activity. PSYCHIATRIC: Denies anxiety, denies depression. HEMATOLOGIC/LYMPHATIC: Denies anemia, denies enlarged lymph nodes. Past Medical History Past Medical History: Heart Failure, COPD, CVA/TIA, Diabetes Mellitus, GERD/Reflux, Hyperlipidemia, Hypertension, Osteoarthritis (OA), Pneumonia, Renal Disease Additional Past Medical History / Comment(s): Severe COPD, chronic hypoxic respiratory failure, home oxygen at 4L/[place] ATC, nonishemic cardiomyopathy, AICD/pacer placement, TIA in 2018, pt denies past alcoholism, chronic pancreatitis, 3 pancreatic pseudocysts, IDDM type II, neuropathy biltaral legs/feet, chronic smoker, bilateral tinnitis occasionally, history of perforated left tympanic membranes-[place] left ear, pt states he has been treated for L arm pain with physical therapy but still having problems and has decreased ROM, chronic generalized pain, sinusitis History of Any Multi-Drug Resistant Organisms: None Reported Past Surgical History: AICD, Pacemaker Additional Past Surgical History / Comment(s): colonoscopy, "lump" removed from left side of neck. Past Anesthesia/Blood Transfusion Reactions: No Reported Reaction Type of Cardiac Device: Permanent Pacemaker, AICD Device Placement Date:: 09/2016 Smoking Status: Current every day smoker - Past Family History Father Family Medical History: Congestive Heart Failure (CHF), COPD, Diabetes Mellitus Additional Family Medical History / Comment(s): Father is . He had mrsa, asbestoes exposure/lungs Mother Family Medical History: Diabetes Mellitus, Hypertension Additional Family Medical History / Comment(s): Mother is 87yrs old. Medications and Allergies Home Medications Medication Instructions Recorded Confirmed Type Docusate [Colace] 100 mg PO DAILY 05/04/18 02/06/19 History Zolpidem [Ambien] 10 mg PO HS 05/04/18 02/06/19 History HYDROcodone/APAP 10-325MG [[place] 1 tab PO Q4HR PRN #120 tab 05/18/18 02/06/19 Rx 10-325] Atorvastatin [Lipitor] 20 mg PO DAILY 11/16/18 02/06/19 History Insulin Lispro [humaLOG Kwikpen] See Protocol SQ ACHS 11/16/18 02/06/19 History Lipase/Protease/Amylase [Creon Dr 36,000 units PO TID 11/16/18 02/06/19 History 36,000 Units Capsule] Nitroglycerin Sl Tabs [Nitrostat] 0.4 mg SUBLINGUAL Q5M PRN 11/16/18 02/06/19 History Polyethylene Glycol 3350 [Miralax] 17 gm PO DAILY 11/16/18 02/06/19 History Tamsulosin HCl [Flomax] 0.4 mg PO DAILY 11/16/18 02/06/19 History Aspirin 81 mg PO DAILY chew 11/18/18 02/06/19 Rx Furosemide [Lasix] 40 mg PO BID@0900,1600 tab 12/17/18 02/06/19 Rx Diphenoxylate HCl/Atropine 1 tab PO BID PRN 02/06/19 02/06/19 History [Lomotil 2.5-0.025 mg Tablet] Fluticasone/Vilanterol [Breo 1 puff INHALATION RT-DAILY 02/06/19 02/06/19 History Ellipta 200-25 Mcg INH] Gabapentin [Neurontin] 400 mg PO BID 02/06/19 02/06/19 History Insulin Degludec [Tresiba 32 unit SQ QAM 02/06/19 02/06/19 History Flextouch U-100] Ipratropium-Albuterol Nebulize 3 ml INHALATION RT-QID 02/06/19 02/06/19 History [Duoneb 0.5 mg-3 mg/3 ml Soln] Ipratropium/Albuterol Sulfate 1 puff INHALATION RT-QID 02/06/19 02/06/19 History [Combivent Respimat Inhaler] Metoprolol Succinate (ER) [Toprol 25 mg PO BID 02/06/19 02/06/19 History Xl] clonazePAM 0.5 mg PO HS 02/06/19 02/06/19 History Allergies Allergy/AdvReac Type Severity Reaction Status Date / Time meperidine HCl [From Demerol] AdvReac Severe Rapid Verified 02/06/19 10:01 Heart Rate/VOMITING ibuprofen [From Motrin] AdvReac Vomiting Verified 02/06/19 10:01 mayonnaise AdvReac Nausea & Verified 02/06/19 10:01 Vomiting & Diarrhea Physical Exam Vitals: Vital Signs Temp Pulse Pulse Resp BP BP Pulse Ox 02/06/19 11:09 101 H 16 02/06/19 11:07 98.1 F 101 H 16 127/94 98 02/06/19 10:07 98 16 02/06/19 09:45 97.6 F 98 19 111/74 99 02/06/19 09:00 97.8 F 101 H 18 133/73 02/06/19 08:37 102 H 18 133/73 98 02/06/19 08:01 102 H 18 111/79 99 02/06/19 08:00 100 18 111/79 97 02/06/19 07:50 100 02/06/19 07:36 98 02/06/19 07:10 97.7 F 95 18 120/82 99 02/06/19 07:02 24 02/06/19 07:00 98 16 137/75 99 02/06/19 06:58 97.8 F 98 24 137/75 99 Intake and Output 02/05/19 02/06/19 02/06/19 22:59 06:59 14:59 Other: Weight 54.431 kg 62.142 kg GENERAL EXAM: Alert, pleasant, 58-year-old gentleman, on 4 L of oxygen with a pulse ox of 98%, comfortable in no apparent distress. HEAD: Normocephalic/atraumatic. EYES: Normal reaction of pupils, equal size. Conjunctiva pink, sclera white. NOSE: Clear with pink turbinates. THROAT: No erythema or exudates. NECK: No masses, no JVD, no thyroid enlargement, no adenopathy. CHEST: No chest wall deformity. Symmetrical expansion. LUNGS: Equal air entry with rales at bilateral bases, but no wheeze, rhonchi or dullness. CVS: Regular rate and rhythm, normal S1 and S2, no gallops, no murmurs, no rubs ABDOMEN: Soft, nontender. No hepatosplenomegaly, normal bowel sounds, no guarding or rigidity. EXTREMITIES: No clubbing, 2+ pretibial and ankle edema, no cyanosis, 2+ pulses and upper and lower extremities. MUSCULOSKELETAL: Muscle strength and tone normal. SPINE: No scoliosis or deformity SKIN: No rashes CENTRAL NERVOUS SYSTEM: No focal deficits, tone is normal in all 4 extremities. PSYCHIATRIC: Alert and oriented -3. Appropriate affect. Intact judgment and insight. Results - Laboratory Findings CBC and BMP: 02/06/19 07:05 02/06/19 07:05 PT/INR, D-dimer PT 11.5 sec (9.0-12.0) 02/06/19 07:05 INR 1.1 (<1.2) 02/06/19 07:05 Abnormal lab findings: Abnormal Labs 02/06/19 02/06/19 02/06/19 06:55 07:05 07:05 RBC 3.91 L Hgb 11.6 L Hct 36.7 L Sodium 136 L BUN 36 H Glucose 397 H POC Glucose (mg/dL) 409 H Magnesium 2.5 H Troponin I Urine Protein Urine Glucose (UA) Urine Mucus 02/06/19 02/06/19 02/06/19 07:05 08:50 09:49 RBC Hgb Hct Sodium BUN Glucose POC Glucose (mg/dL) 478 H Magnesium Troponin I 0.055 H* Urine Protein 1+ H Urine Glucose (UA) 4+ H Urine Mucus Rare H - Diagnostic Findings Chest x-ray: image reviewed Assessment and Plan Assessment: #1 Acute on chronic hypoxic respiratory failure with orthopnea, lower extremity swelling secondary to an acute exacerbation of chronic systolic congestive heart failure. #2 Non-ischemic cardiomyopathy with severely impaired left ventricular systolic function with ejection fraction less than 20%, status post AICD placement. #3 Elevated troponin of 0.055, could be related to acute exacerbation of chronic systolic congestive heart failure #4 Chronic hypoxic respiratory failure secondary to COPD, systolic congestive heart failure. #5 Severe chronic obstructive pulmonary disease, oxygen dependent. #6 Chronic and ongoing tobacco dependence. #7 History of chronic alcoholism. #8 Chronic pancreatitis with history of pancreatic pseudocyst and malabsorption secondary to chronic pancreatic insufficiency. #9 Diabetes mellitus. #10 Hypertension. #11 Hyperlipidemia. #12 Degenerative arthritis. #13 Chronic renal failure, unspecified Plan: The patient was seen and evaluated by Dr. Steiner. Chest x-ray and labs reviewed. Continue IV diuretics. Continue DuoNeb inhalations and Symbicort. He is again educated regarding the importance of complete smoking cessation. He is scheduled to see Dr. Khanna later this week. We will see how the hospitalization goes. We'll continue to follow and make further recommendations based on his clinical status. I, the cosigning physician, performed a history & physical examination of the patient. Lungs sounds with faint crackles in the bilateral posterior bases, diminished. Maintaining good O2 saturations in the 90s on 4 L/m per nasal cannula. I discussed the assessment and plan of care with my nurse practitioner, Elenita Anne. I attest to the above note as dictated by her. Time with Patient: Greater than 30
[2019-02-06] MEDS ORDERED: DIPHENOX-ATROP 2.5-0.025 MG 1 EACH TAB PO PRN (12:19)
[2019-02-06] MEDS: INSULIN ASPART (NovoLOG) 100 UNIT/ML VIAL SQ SCH ×3 (12:32→20:43)
--- NOTE | 2019-02-06 14:30 | P.CRDCN ---
History of Present Illness Consult date: 02/06/19 Requesting physician: Yusuf Lind Consult reason: congestive heart failure Chief complaint: Shortness of breath History of present illness: This is a 58-year-old gentleman with known history of nonischemic cardiomyopathy and prior AICD implantation, history of EtOH abuse, chronic systolic congestive heart failure, prior TIAs, hypertension, diabetes, COPD on home O2, chronic diaphragmatic paralysis, hyperlipidemia, chronic pancreatitis, nicotine dependence, who was most recently in the hospital in November with an exacerbation of congestive cardiac failure. He presented to the hospital on this occasion with symptoms of shortness of breath, he also was having some mental status changes and bilateral lower extremity edema. His chest x-ray on admission here revealed evidence of COPD with bilateral infiltrate and tiny effusions with evidence of fluid volume overload. EKG showed a normal sinus rhythm with occasional PVCs, left bundle-branch block pattern. I pressure 127/90 with a heart rate in the 100, 90% on 4 L of oxygen. White blood cell count 4.7, hemoglobin 11.6, platelet count 166. Sodium 136, potassium 4.9, BUN 36 and creatinine 1.1. Troponin 0.055, BNP level 10,500. UA negative. Patient was initiated on IV Lasix in the emergency room. Patient's most recent echocardiogram with Doppler study was performed on December 11 of this year which revealed an ejection fraction of 20-25%, severe global hypokinesia, moderate mitral regurgitation. Past Medical History Past Medical History: Heart Failure, COPD, CVA/TIA, Diabetes Mellitus, GERD/Reflux, Hyperlipidemia, Hypertension, Osteoarthritis (OA), Pneumonia, Renal Disease Additional Past Medical History / Comment(s): Severe COPD, chronic hypoxic respiratory failure, home oxygen at 4L/[place] ATC, nonishemic cardiomyopathy, AICD/pacer placement, TIA in 2018, pt denies past alcoholism, chronic pancreatitis, 3 pancreatic pseudocysts, IDDM type II, neuropathy biltaral legs/feet, chronic smoker, bilateral tinnitis occasionally, history of perf orated left tympanic membranes-[place] left ear, pt states he has been treated for L arm pain with physical therapy but still having problems and has decreased ROM, chronic generalized pain, sinusitis History of Any Multi-Drug Resistant Organisms: None Reported Past Surgical History: AICD, Pacemaker Additional Past Surgical History / Comment(s): colonoscopy, "lump" removed from left side of neck. Past Anesthesia/Blood Transfusion Reactions: No Reported Reaction Type of Cardiac Device: Permanent Pacemaker, AICD Device Placement Date:: 09/2016 Smoking Status: Current every day smoker - Past Family History Father Family Medical History: Congestive Heart Failure (CHF), COPD, Diabetes Mellitus Additional Family Medical History / Comment(s): Father is . He had mrsa, asbestoes exposure/lungs Mother Family Medical History: Diabetes Mellitus, Hypertension Additional Family Medical History / Comment(s): Mother is 87yrs old. Medications and Allergies Home Medications Medication Instructions Recorded Confirmed Type Docusate [Colace] 100 mg PO DAILY 05/04/18 02/06/19 History Zolpidem [Ambien] 10 mg PO HS 05/04/18 02/06/19 History HYDROcodone/APAP 10-325MG [[place] 1 tab PO Q4HR PRN #120 tab 05/18/18 02/06/19 Rx 10-325] Atorvastatin [Lipitor] 20 mg PO DAILY 11/16/18 02/06/19 History Insulin Lispro [humaLOG Kwikpen] See Protocol SQ ACHS 11/16/18 02/06/19 History Lipase/Protease/Amylase [Creon Dr 36,000 units PO TID 11/16/18 02/06/19 History 36,000 Units Capsule] Nitroglycerin Sl Tabs [Nitrostat] 0.4 mg SUBLINGUAL Q5M PRN 11/16/18 02/06/19 History Polyethylene Glycol 3350 [Miralax] 17 gm PO DAILY 11/16/18 02/06/19 History Tamsulosin HCl [Flomax] 0.4 mg PO DAILY 11/16/18 02/06/19 History Aspirin 81 mg PO DAILY chew 11/18/18 02/06/19 Rx Furosemide [Lasix] 40 mg PO BID@0900,1600 tab 12/17/18 02/06/19 Rx Diphenoxylate HCl/Atropine 1 tab PO BID PRN 02/06/19 02/06/19 History [Lomotil 2.5-0.025 mg Tablet] Fluticasone/Vilanterol [Breo 1 puff INHALATION RT-DAILY 02/06/19 02/06/19 Hist ory Ellipta 200-25 Mcg INH] Gabapentin [Neurontin] 400 mg PO BID 02/06/19 02/06/19 History Insulin Degludec [Tresiba 32 unit SQ QAM 02/06/19 02/06/19 History Flextouch U-100] Ipratropium-Albuterol Nebulize 3 ml INHALATION RT-QID 02/06/19 02/06/19 History [Duoneb 0.5 mg-3 mg/3 ml Soln] Ipratropium/Albuterol Sulfate 1 puff INHALATION RT-QID 02/06/19 02/06/19 History [Combivent Respimat Inhaler] Metoprolol Succinate (ER) [Toprol 25 mg PO BID 02/06/19 02/06/19 History Xl] clonazePAM 0.5 mg PO HS 02/06/19 02/06/19 History Allergies Allergy/AdvReac Type Severity Reaction Status Date / Time meperidine HCl [From Demerol] AdvReac Severe Rapid Verified 02/06/19 10:01 Heart Rate/VOMITING ibuprofen [From Motrin] AdvReac Vomiting Verified 02/06/19 10:01 mayonnaise AdvReac Nausea & Verified 02/06/19 10:01 Vomiting & Diarrhea Physical Exam Vitals: Vital Signs Temp Pulse Pulse Resp BP BP Pulse Ox 02/06/19 11:09 101 H 16 02/06/19 11:07 98.1 F 101 H 16 127/94 98 02/06/19 10:07 98 16 02/06/19 09:45 97.6 F 98 19 111/74 99 02/06/19 09:00 97.8 F 101 H 18 133/73 02/06/19 08:37 102 H 18 133/73 98 02/06/19 08:01 102 H 18 111/79 99 02/06/19 08:00 100 18 111/79 97 02/06/19 07:50 100 02/06/19 07:36 98 02/06/19 07:10 97.7 F 95 18 120/82 99 02/06/19 07:02 24 02/06/19 07:00 98 16 137/75 99 02/06/19 06:58 97.8 F 98 24 137/75 99 Intake and Output 02/05/19 02/06/19 02/06/19 22:59 06:59 14:59 Intake Total 200 Balance 200 Intake: Oral 200 Other: Weight 54.431 kg 62.142 kg 4-year-old gentleman in no acute distress at the time of my examination HEAD: Normocephalic/atraumatic. EYES: Normal reaction of pupils, equal size. Conjunctiva pink, sclera white. NOSE: Clear with pink turbinates. THROAT: No erythema or exudates. NECK: No masses, no JVD, no thyroid enlargement, no adenopathy. CHEST: No chest wall deformity. Symmetrical expansion. LUNGS: Equal air entry with rales at bilateral bases, but no wheeze, rhonchi or dullness. CVS: Regular rate and rhythm, normal S1 and S2, systolic murmur heard ABDOMEN: Soft, nontender. No hepatosplenomegaly, normal bowel sounds, no guarding or rigidity. EXTREMITIES: No clubbing, 2+ pretibial and ankle edema, no cyanosis, 2+ pulses and upper and lower extremities. MUSCULOSKELETAL: Muscle strength and tone normal. SPINE: No scoliosis or deformity SKIN: No rashes CENTRAL NERVOUS SYSTEM: No focal deficits, tone is normal in all 4 extremities. PSYCHIATRIC: Alert and oriented -3. Appropriate affect. Intact judgment and insight. Results 02/06/19 07:05 02/06/19 07:05 Cardiac Enzymes 02/06/19 02/06/19 Range/Units 07:05 07:05 AST 40 (17-59) U/L Troponin I 0.055 H* (0.000-0.034) ng/mL Coagulation 02/06/19 Range/Units 07:05 PT 11.5 (9.0-12.0) sec APTT 26.4 (22.0-30.0) sec CBC 02/06/19 Range/Units 07:05 WBC 4.7 (3.8-10.6) k/uL RBC 3.91 L (4.30-5.90) m/uL Hgb 11.6 L (13.0-17.5) gm/dL Hct 36.7 L (39.0-53.0) % Plt Count 166 (150-450) k/uL Comprehensive Metabolic Panel 02/06/19 Range/Units 07:05 Sodium 136 L (137-145) mmol/L Potassium 4.9 (3.5-5.1) mmol/L Chloride 98 (98-107) mmol/L Carbon Dioxide 30 (22-30) mmol/L BUN 36 H (9-20) mg/dL Creatinine 1.15 (0.66-1.25) mg/dL Glucose 397 H (74-99) mg/dL Calcium 9.0 (8.4-10.2) mg/dL AST 40 (17-59) U/L ALT 38 (21-72) U/L Alkaline Phosphatase 121 (38-126) U/L Total Protein 6.5 (6.3-8.2) g/dL Albumin 4.3 (3.5-5.0) g/dL Current Medications Generic Name Dose Route Start Last Admin Trade Name Freq PRN Reason Stop Dose Admin Hydrocodone Bitart/Acetaminophen 1 each 02/06/19 09:03 02/06/19 11:41 [place] 10 PO 1 each Q4HR PRN Administration Pain Albuterol/Ipratropium 3 ml 02/06/19 09:04 Duoneb 0.5 Mg-3 Mg/3 Ml Soln INHALATION RT-QID PRN Shortness Of Breath Or Wheezing Aspirin 81 mg 02/07/19 09:00 Aspirin PO DAILY [facility] Atorvastatin Calcium 20 mg 02/07/19 09:00 Lipitor PO DAILY [facility] Budesonide/Formoterol Fumarate 2 puff 02/06/19 20:00 Symbicort 160-4.5 Mcg Inhaler INHALATION RT-BID [facility] Clonazepam 0.5 mg 02/06/19 21:00 Klonopin PO HS [facility] Diphenoxylate HCl/Atropine 1 each 02/06/19 12:19 Lomotil PO BID PRN Diarrhea Docusate Sodium 100 mg 02/07/19 09:00 Colace PO DAILY [facility] Furosemide 40 mg 02/06/19 21:00 Lasix IV Q12HR [facility] Gabapentin 400 mg 02/06/19 21:00 Neurontin PO BID [facility] Insulin Aspart 0 unit 02/06/19 12:30 02/06/19 12:32 Novolog SQ 8 unit ACHS [facility] Administration Protocol Insulin Detemir 28 unit 02/07/19 09:00 Levemir SQ QAM [facility] Metoprolol Succinate 25 mg 02/07/19 09:00 Toprol Xl PO DAILY [facility] Pregabalin 150 mg 02/06/19 16:00 Lyrica PO TID [facility] Sacubitril/Valsartan 1 each 02/06/19 21:00 Entresto 24 Mg-26 Mg Tablet PO BID [facility]OS[facility] Intake and Output 02/05/19 02/06/19 02/06/19 22:59 06:59 14:59 Intake Total 200 Balance 200 Intake: Oral 200 Other: Weight 54.431 kg 62.142 kg Patient Weight 02/07/19 06:59 Weight 62.142 kg 02/06/19 07:05 02/06/19 07:05 EKG Interpretations (text) EKG shows normal sinus rhythm with occasional PVCs. Left bundle-branch block pattern Assessment and Plan Plan: Assessment and plan #1 Acute on chronic hypoxic respiratory failure with orthopnea, lower extremity swelling secondary to an acute exacerbation of chronic systolic congestive heart failure. #2 Non-ischemic cardiomyopathy with severely impaired left ventricular systolic function with ejection fraction less than 20%, status post AICD placement. #3 Elevated troponin of 0.055, could be related to acute exacerbation of chronic systolic congestive heart failure #4 Chronic hypoxic respiratory failure secondary to COPD, systolic congestive heart failure. #5 Severe chronic obstructive pulmonary disease, oxygen dependent. #6 Chronic and ongoing tobacco dependence. #7 History of chronic alcoholism. #8 Chronic pancreatitis with history of pancreatic pseudocyst and malabsorption secondary to chronic pancreatic insufficiency. #9 Diabetes mellitus. #10 Hypertension. #11 Hyperlipidemia. #12 Degenerative arthritis. #13 prior TIAs #14 GERD #15 history of pancreatic pseudocysts Plan Patient just recently had an echo in November of this year so we will not repeat an echo at this time. We will continue with baby aspirin, Lipitor, IV Lasix 40 mg twice a day, metoprolol 25 mg daily, and Entresto. Patient's potassium today is 4.9, if the levels come down we will consider the addition of Aldactone. Monitor intake and output along with daily weights and daily lytes BUN and creatinine. DNP note has been reviewed, I agree with a documented findings and plan of care. Patient was seen and examined.
[2019-02-06] MEDS: IPRATROPIUM-ALBUTEROL 3 ML NEB INHALATION SCH ×2 (16:20→20:30)
[2019-02-06] MEDS: PREGABALIN 75 MG CAP PO SCH ×2 (16:39→21:06)
--- NOTE | 2019-02-06 16:53 | US ---
EXAMINATION TYPE: US venous doppler duplex LE DATE OF EXAM: 02/06/2019 4:22 PM COMPARISON: NONE CLINICAL HISTORY: swelling in lower extremities. SIDE PERFORMED: Bilateral TECHNIQUE: The lower extremity deep venous system is examined utilizing real time linear array sonog zhen with graded compression, doppler sonography and color-flow sonography. VESSELS IMAGED: External Iliac Vein (EIV) Common Femoral Vein Deep Femoral Vein Greater Saphenous Vein * Femoral Vein Popliteal Vein Small Saphenous Vein * Proximal Calf Veins (* superficial vessels) Grayscale, color doppler, spectral doppler imaging performed of the deep veins of the lower extremiti es. There is normal flow, compressibility, vascular waveforms. Right Leg: Negative for DVT Left Leg: Negative for DVT Bilateral lower extremity nonspecific subcutaneous edema is present. IMPRESSION: No sonographic evidence of deep venous thrombosis within either the bilateral lower extr emities. Nonspecific dependent subcutaneous edema noted.
[2019-02-06 17:33] LABS: Glucose,Whole Blood 289 mg/dL (75-99)
[2019-02-06 20:29] LABS: Glucose,Whole Blood 95 mg/dL (75-99)
[2019-02-06] MEDS: SYMBICORT 160-4.5 MCG INHALER INHALATION SCH (20:30)
[2019-02-06] MEDS ORDERED: GABAPENTIN 400 MG CAP PO SCH (21:00)
[2019-02-06] MEDS: FUROSEMIDE 10 MG/ML 4 ML VIAL IV SCH (21:05)
[2019-02-06] MEDS: clonazePAM 0.5 MG TAB PO SCH (21:06)
[2019-02-06] MEDS: SACUBITRIL/VALSARTAN 24 MG-26 MG TABLET PO SCH (21:06)
[2019-02-07] MEDS: HYDROcodone/APAP 10-325MG 1 EACH TAB PO PRN ×3 (02:05→21:03)
[2019-02-07 06:19] LABS: Glucose,Whole Blood 340 mg/dL (75-99)
[2019-02-07 06:24] LABS: HCT 38.2 % (39.0-53.0); HGB 11.6 gm/dL (13.0-17.5); Hypochromasia Moderate; MCH 28.7 pg (25.0-35.0); MCHC 30.3 g/dL (31.0-37.0); MCV 94.7 fL (80.0-100.0); Mean Platelet Volume 7.3; Platelet Count 153 k/uL (150-450); RBC 4.03 m/uL (4.30-5.90); RDW 14.5 % (11.5-15.5); WBC 4.6 k/uL (3.8-10.6)
[2019-02-07 06:35] LABS: Albumin 3.8 g/dL (3.5-5.0); Calcium 8.8 mg/dL (8.4-10.2); Total Bilirubin 0.4 mg/dL (0.2-1.3); Total Protein 5.8 g/dL (6.3-8.2)
[2019-02-07] MEDS: INSULIN ASPART (NovoLOG) 100 UNIT/ML VIAL SQ SCH ×4 (07:11→21:02)
[2019-02-07] MEDS: SYMBICORT 160-4.5 MCG INHALER INHALATION SCH ×2 (07:36→19:50)
[2019-02-07] MEDS: IPRATROPIUM-ALBUTEROL 3 ML NEB INHALATION SCH ×4 (07:37→19:50)
[2019-02-07] MEDS ORDERED: SYMBICORT 160-4.5 MCG INHALER INHALATION SCH (08:00)
--- NOTE | 2019-02-07 08:10 | P.HPIM ---
History of Present Illness H&P Date: 02/07/19 Chief Complaint: Exacerbation of CHF. This is a history of physical 58-year-old white male essentially admitted for exacerbation of congestive heart failure. He has an underlying history of congestive heart failure COPD chronic pain otitis and poorly controlled diabetes. He was still smoking up until about a week ago. He is a long-time smoker and was smoking about 5 cigarettes a day admittedly. Essentially started having worsening shortness of breath and lower extremity edema. Furosemide was titrated as an outpatient but this was ineffective. The patient is now admitted for appropriate treatment for his COPD and CHF. Review of Systems Constitutional: Denies chills, Denies fever Eyes: denies blurred vision, denies pain Ears, nose, mouth and throat: Denies headache, Denies sore throat Cardiovascular: Reports leg edema, Denies chest pain, Denies shortness of breath Respiratory: Reports as per HPI, Reports cough Gastrointestinal: Denies abdominal pain, Denies diarrhea, Denies nausea, Denies vomiting Musculoskeletal: Denies myalgias Integumentary: Denies pruritus, Denies rash Neurological: Denies numbness, Denies weakness Past Medical History Past Medical History: Heart Failure, COPD, CVA/TIA, Diabetes Mellitus, GERD/Reflux, Hyperlipidemia, Hypertension, Osteoarthritis (OA), Pneumonia, Renal Disease Additional Past Medical History / Comment(s): Severe COPD, chronic hypoxic respiratory failure, home oxygen at 4L/NC ATC, nonishemic cardiomyopathy, AICD/pacer placement, TIA in 2018, pt denies past alcoholism, chronic pancreatitis, 3 pancreatic pseudocysts, IDDM type II, neuropathy biltaral legs/feet, chronic smoker, bilateral tinnitis occasionally, history of perforated left tympanic membranes-[place] left ear, pt states he has been treated for L arm pain with physical therapy but still having problems and has decreased ROM, chronic generalized pain, sinusitis History of Any Multi-Drug Resistant Organisms: None Reported Past Surgical History: AICD, Pacemaker Additional Past Surgical History / Comment(s): colonoscopy, "lump" removed from left side of neck. Past Anesthesia/Blood Transfusion Reactions: No Reported Reaction Type of Cardiac Device: Permanent Pacemaker, AICD Device Placement Date:: 09/2016 Smoking Status: Current every day smoker - Past Family History Father Family Medical History: Congestive Heart Failure (CHF), COPD, Diabetes Mellitus Additional Family Medical History / Comment(s): Father is . He had mrsa, asbestoes exposure/lungs Mother Family Medical History: Diabetes Mellitus, Hypertension Additional Family Medical History / Comment(s): Mother is 87yrs old. Medications and Allergies Home Medications Medication Instructions Recorded Confirmed Type Docusate [Colace] 100 mg PO DAILY 05/04/18 02/06/19 History Zolpidem [Ambien] 10 mg PO HS 05/04/18 02/06/19 History HYDROcodone/APAP 10-325MG [[place] 1 tab PO Q4HR PRN #120 tab 05/18/18 02/06/19 Rx 10-325] Atorvastatin [Lipitor] 20 mg PO DAILY 11/16/18 02/06/19 History Insulin Lispro [humaLOG Kwikpen] See Protocol SQ ACHS 11/16/18 02/06/19 History Lipase/Protease/Amylase [Alesia Dr 36,000 units PO TID 11/16/18 02/06/19 History 36,000 Units Capsule] Nitroglycerin Sl Tabs [Nitrostat] 0.4 mg SUBLINGUAL Q5M PRN 11/16/18 02/06/19 History Polyethylene Glycol 3350 [Miralax] 17 gm PO DAILY 11/16/18 02/06/19 History Tamsulosin HCl [Flomax] 0.4 mg PO DAILY 11/16/18 02/06/19 History Aspirin 81 mg PO DAILY chew 11/18/18 02/06/19 Rx Furosemide [Lasix] 40 mg PO BID@0900,1600 tab 12/17/18 02/06/19 Rx Diphenoxylate HCl/Atropine 1 tab PO BID PRN 02/06/19 02/06/19 History [Lomotil 2.5-0.025 mg Tablet] Fluticasone/Vilanterol [Breo 1 puff INHALATION RT-DAILY 02/06/19 02/06/19 History Ellipta 200-25 Mcg INH] Gabapentin [Neurontin] 400 mg PO BID 02/06/19 02/06/19 History Insulin Degludec [Tresiba 32 unit SQ QAM 02/06/19 02/06/19 History Flextouch U-100] Ipratropium-Albuterol Nebulize 3 ml INHALATION RT-QID 02/06/19 02/06/19 History [Duoneb 0.5 mg-3 mg/3 ml Soln] Ipratropium/Albuterol Sulfate 1 puff INHALATION RT-QID 02/06/19 02/06/19 History [Combivent Respimat Inhaler] Metoprolol Succinate (ER) [Toprol 25 mg PO BID 02/06/19 02/06/19 History Xl] clonazePAM 0.5 mg PO HS 02/06/19 02/06/19 History Allergies Allergy/AdvReac Type Severity Reaction Status Date / Time meperidine HCl [From Demerol] AdvReac Severe Rapid Verified 02/06/19 10:01 Heart Rate/VOMITING ibuprofen [From Motrin] AdvReac Vomiting Verified 02/06/19 10:01 mayonnaise AdvReac Nausea & Verified 02/06/19 10:01 Vomiting & Diarrhea Physical Exam Vitals: Vital Signs Temp Pulse Pulse Resp BP BP Pulse Ox 02/07/19 04:00 98.5 F 81 19 134/73 98 02/07/19 00:00 98.4 F 89 19 110/71 97 02/06/19 20:46 90 02/06/19 20:30 89 02/06/19 20:10 97.9 F 89 19 148/77 96 02/06/19 16:32 62 02/06/19 16:20 62 99 02/06/19 15:19 93 16 02/06/19 15:16 97.7 F 93 16 109/72 99 02/06/19 11:09 101 H 16 02/06/19 11:07 98.1 F 101 H 16 127/94 98 02/06/19 10:07 98 16 02/06/19 09:45 97.6 F 98 19 111/74 99 02/06/19 09:00 97.8 F 101 H 18 133/73 02/06/19 08:37 102 H 18 133/73 98 Intake and Output 02/06/19 02/07/19 02/07/19 22:59 06:59 14:59 Intake Total 870 250 240 Balance 870 250 240 Intake: IV 10 10 0.9 10 Invasive Line 1 10 Oral 860 240 240 Other: Voiding Method Toilet Toilet # Voids 1 4 Weight 62.1 kg - Constitutional General appearance: thin - EENT Eyes: EOMI - Neck Neck: no lymphadenopathy - Respiratory Respiratory: bilateral: diminished, wheezing - Cardiovascular Rhythm: regular Heart sounds: normal: S1, S2 Abnormal Heart Sounds: no S3 Gallop - Gastrointestinal General gastrointestinal: soft, no tenderness - Musculoskeletal Musculoskeletal: generalized weakness - Psychiatric Psychiatric: A&O x's 3, appropriate affect Results CBC & Chem 7: 02/07/19 05:36 02/07/19 05:36 Labs: Abnormal Lab Results - Last 24 Hours (Table) 02/06/19 02/06/19 02/06/19 Range/Units 07:05 08:50 09:49 RBC 3.91 L (4.30-5.90) m/uL Hgb 11.6 L (13.0-17.5) gm/dL Hct 36.7 L (39.0-53.0) % MCHC (31.0-37.0) g/dL Sodium (137-145) mmol/L Chloride (98-107) mmol/L Carbon Dioxide (22-30) mmol/L BUN (9-20) mg/dL Creatinine (0.66-1.25) mg/dL Glucose (74-99) mg/dL POC Glucose (mg/dL) 478 H (75-99) mg/dL Alkaline Phosphatase (38-126) U/L Total Protein (6.3-8.2) g/dL Urine Protein 1+ H (Negative) Urine Glucose (UA) 4+ H (Negative) Urine Mucus Rare H (None) /hpf 02/06/19 02/06/19 02/07/19 Range/Units 12:14 17:02 05:36 RBC (4.30-5.90) m/uL Hgb (13.0-17.5) gm/dL Hct (39.0-53.0) % MCHC (31.0-37.0) g/dL Sodium 134 L (137-145) mmol/L Chloride 96 L (98-107) mmol/L Carbon Dioxide 31 H (22-30) mmol/L BUN 36 H (9-20) mg/dL Creatinine 1.62 H (0.66-1.25) mg/dL Glucose 322 H (74-99) mg/dL POC Glucose (mg/dL) 403 H 289 H (75-99) mg/dL Alkaline Phosphatase 134 H (38-126) U/L Total Protein 5.8 L (6.3-8.2) g/dL Urine Protein (Negative) Urine Glucose (UA) (Negative) Urine Mucus (None) /hpf 02/07/19 02/07/19 Range/Units 05:36 06:18 RBC 4.03 L (4.30-5.90) m/uL Hgb 11.6 L (13.0-17.5) gm/dL Hct 38.2 L (39.0-53.0) % MCHC 30.3 L (31.0-37.0) g/dL Sodium (137-145) mmol/L Chloride (98-107) mmol/L Carbon Dioxide (22-30) mmol/L BUN (9-20) mg/dL Creatinine (0.66-1.25) mg/dL Glucose (74-99) mg/dL POC Glucose (mg/dL) 340 H (75-99) mg/dL Alkaline Phosphatase (38-126) U/L Total Protein (6.3-8.2) g/dL Urine Protein (Negative) Urine Glucose (UA) (Negative) Urine Mucus (None) /hpf Thrombosis Risk Factor Assmnt - Choose All That Apply Any of the Below Risk Factors Present?: Yes Each Factor Represents 1 point: Abnormal pulmonary function (COPD), Age 41-60 years, Heart failure (<1month), Serious lung disease incl. pneumonia (< 1month) Other Risk Factors: No Other congenital or acquired thrombophilia - If yes, enter type in comment: No Thrombosis Risk Factor Assessment Total Risk Factor Score: 4 Thrombosis Risk Factor Assessment Level: Moderate Risk Assessment and Plan (1) CHF exacerbation Current Visit: Yes Status: Acute Code(s): I50.9 - HEART FAILURE, UNSPECIFIED SNOMED Code(s): 842972245 (2) COPD (chronic obstructive pulmonary disease) Current Visit: Yes Status: Acute Code(s): J44.9 - CHRONIC OBSTRUCTIVE PULMONARY DISEASE, UNSPECIFIED SNOMED Code(s): 15240730 (3) Chronic pancreatitis Current Visit: No Status: Acute Code(s): K86.1 - OTHER CHRONIC PANCREATITIS SNOMED Code(s): 763169524 (4) Diabetes Current Visit: No Status: Acute Code(s): E11.9 - TYPE 2 DIABETES MELLITUS WITHOUT COMPLICATIONS SNOMED Code(s): 72628710 (5) Diabetic neuropathy Current Visit: No Status: Acute Code(s): E11.40 - TYPE 2 DIABETES MELLITUS WITH DIABETIC NEUROPATHY, UNSP SNOMED Code(s): 419560009 (6) NICM (nonischemic cardiomyopathy) Current Visit: No Status: Acute Code(s): I42.9 - CARDIOMYOPATHY, UNSPECIFIED SNOMED Code(s): 40244722 Plan: Appreciate multiple consultants input. Continue diuresis. Prognosis is guarded secondary to his multiple comorbidities. Past titrate Lyrica related to his neuropathy. New pack check CBC and CMP in a.m. Otherwise, the patient is full code. Time with Patient: Greater than 30
[2019-02-07] MEDS ORDERED: ASPIRIN 325 MG TAB PO SCH (09:00)
[2019-02-07] MEDS ORDERED: METOPROLOL SUCCINATE (ER) 25 MG TAB.ER.24H PO SCH (09:00)
[2019-02-07] MEDS: FUROSEMIDE 10 MG/ML 4 ML VIAL IV SCH (09:18)
[2019-02-07] MEDS: PREGABALIN 100 MG CAP PO SCH ×3 (09:18→21:06)
[2019-02-07] MEDS: INSULIN DETEMIR (LEVEMIR) 100 UNIT/ML SYR SQ SCH (09:18)
[2019-02-07] MEDS: SACUBITRIL/VALSARTAN 24 MG-26 MG TABLET PO SCH ×2 (09:19→20:45)
[2019-02-07] MEDS: DOCUSATE 100 MG CAP PO SCH (09:19)
[2019-02-07] MEDS: ASPIRIN 81 MG PO SCH (09:19)
[2019-02-07] MEDS: ATORVASTATIN 20 MG TAB PO SCH (09:19)
[2019-02-07] MEDS: TAMSULOSIN 0.4 MG CAP.ER.24H PO SCH (09:19)
[2019-02-07 12:06] LABS: Glucose,Whole Blood 72 mg/dL (75-99)
--- NOTE | 2019-02-07 12:12 | CDI ---
Documentation Clarification Form Date: 02/07/2019 11:59:30 AM From: Joi BejaranoAdamsKEMAL juárez, CCDS Admit Date: 02/06/2019 9:02:00 AM Patient Name: Jamal Choudhury Visit Number: [id number] Discharge Date: ATTENTION: The Clinical Documentation Specialists (CDI) and [facility] Coding Staff appreciate your assistance in clarifying documentation. Please respond to the clarification below the line at the bottom and electronically sign. The CDI & [facility] Coding staff will review the response and follow-up if needed. Please note: Queries are made part of the Legal Health Record. If you have any questions, please contact the author of this message via ITS. Dr. Yusuf Lind: Per the History & Physical: "The patient is now admitted for appropriate treatment for his COPD and CHF." History/Risk Factors: Previous pneumonia, CHF, COPD, CVA, DM, Hypertension, Hyperlipidemia, Chronic respiratory failure, Home O2 & smoker. Has AICD. Clinical Indicators: Presented with SOB & altered mental status. Admitted with CHF exacerbation & elevated troponins. Vital signs on admission: T 97.8, P 98, R 24 (sob, cough), BP 137/75, PO 99 4Lnc. LAB: Hgb 11.6*, Na 136*, BUN 36^, Glucose 397^, Mag 2.5^, Trop 0.055^^. No cultures drawn. RAD: Bilateral infiltrate & tiny effusion correlate for pneumonia vs CHF. Treatment: INH Albuterol, IV Lasix, O2 4Lnc In order to capture the severity of condition, please clarify if the condition signifies and you are treating for: Pneumonia ruled out Viral Pneumonia, specify casual organism (if known) Healthcare Acquired Pneumonia/Pneumonia, unspecified Other type of pneumonia, please specify: Other, please specify Unable to determine (Last Revision: June 2017) The patient has an element of healthcare acquired pneumonia MTDD
--- NOTE | 2019-02-07 13:22 | P.PN ---
Subjective Progress Note Date: 02/07/19 Principal diagnosis: Lower extremity edema, shortness of breath This is a very pleasant 58-year-old gentleman who follows with Dr. Lind as his primary care physician. He has a history of diabetes mellitus, CVA/TIA, hypertension, hyperlipidemia, severe nonischemic cardiomyopathy with an AICD placement, previous alcoholism, chronic pancreatitis with pancreatic pseudocyst, neuropathy, perforated left tympanic membrane with difficulty hearing. He also has severe oxygen dependent chronic hypoxic respiratory failure with home oxygen at 4 L per nasal cannula around the clock. He continues to smoke. He follows with Dr. Khanna in our office for the same. He presented here to the emergency room earlier this morning with some altered mental status thinking his sister was visiting nurse, chest discomfort, shortness of breath and increased swelling of the lower extremities. Asked x-ray shows evidence of COPD with bilateral infiltrates and tiny effusions with evidence of fluid volume overload. White count 4.7. Hemoglobin 11.6. Sodium 136. Potassium 4.9. Creatinine 1.15. Troponin 0.055. ProBNP 10,500. Urinalysis with 4+ glucose. Current blood glucose 478. He's been initiated on DuoNeb inhalations, Symbicort and the IV diuretics. He is on Entresto. Most recent echocardiogram revealed severely impaired left ventricular systolic function with ejection fraction 20-25%. On 02/07/2019 patient seen in follow-up on selective care in, he is awake and alert, in no acute distress, he states his breathing is improving, Ms. of 4 L of oxygen his pulse ox is 98%, no complaints of chest pain, his lower extremity edema is improving, no fever or chills, occasional cough. He was dynamically stable, no acute issues overnight, is on IV diuretics at 40 mg every 12 hours, remains on breathing treatments. Ultrasound Dopplers of lower extremities showed no evidence of DVT in bilateral lower extremities. Objective - Vital Signs Vital signs: Vital Signs Temp 98.5 F 02/07/19 04:00 Pulse 86 02/07/19 11:43 Resp 19 02/07/19 04:00 BP 134/73 02/07/19 04:00 Pulse Ox 98 02/07/19 04:00 Intake & Output 02/06/19 02/07/19 02/07/19 18:59 06:59 18:59 Intake Total 1070 250 240 Balance 1070 250 240 Weight 62.142 kg 62.1 kg Intake: IV 10 10 0.9 10 Invasive Line 1 10 Oral 1060 240 240 Other: Voiding Method Toilet # Voids 4 2 - Exam GENERAL EXAM: Alert, pleasant, 58-year-old white male on 4 L of oxygen comfortable in no apparent distress. HEAD: Normocephalic/atraumatic. EYES: Normal reaction of pupils, equal size. Conjunctiva pink, sclera white. NOSE: Clear with pink turbinates. THROAT: No erythema or exudates. NECK: No masses, no JVD, no thyroid enlargement, no adenopathy. CHEST: No chest wall deformity. Symmetrical expansion. LUNGS: Equal air entry with a few rhonchi or dullness. CVS: Regular rate and rhythm, normal S1 and S2, no gallops, no murmurs, no rubs ABDOMEN: Soft, nontender. No hepatosplenomegaly, normal bowel sounds, no guarding or rigidity. EXTREMITIES: No clubbing, no edema, no cyanosis, 2+ pulses and upper and lower extremities. MUSCULOSKELETAL: Muscle strength and tone normal. SPINE: No scoliosis or deformity SKIN: No rashes CENTRAL NERVOUS SYSTEM: Alert and oriented -3. No focal deficits, tone is normal in all 4 extremities. PSYCHIATRIC: Alert and oriented -3. Appropriate affect. Intact judgment and insight. - Labs CBC & Chem 7: 02/07/19 05:36 02/07/19 05:36 Labs: Abnormal Lab Results - Last 24 Hours (Table) 02/06/19 02/07/19 02/07/19 Range/Units 17:02 05:36 05:36 RBC (4.30-5.90) m/uL Hgb (13.0-17.5) gm/dL Hct (39.0-53.0) % MCHC (31.0-37.0) g/dL Sodium 134 L (137-145) mmol/L Chloride 96 L (98-107) mmol/L Carbon Dioxide 31 H (22-30) mmol/L BUN 36 H (9-20) mg/dL Creatinine 1.62 H (0.66-1.25) mg/dL Glucose 322 H (74-99) mg/dL POC Glucose (mg/dL) 289 H (75-99) mg/dL Hemoglobin A1c 10.0 H (4.0-6.0) % Alkaline Phosphatase 134 H (38-126) U/L Total Protein 5.8 L (6.3-8.2) g/dL 02/07/19 02/07/19 02/07/19 Range/Units 05:36 06:18 11:50 RBC 4.03 L (4.30-5.90) m/uL Hgb 11.6 L (13.0-17.5) gm/dL Hct 38.2 L (39.0-53.0) % MCHC 30.3 L (31.0-37.0) g/dL Sodium (137-145) mmol/L Chloride (98-107) mmol/L Carbon Dioxide (22-30) mmol/L BUN (9-20) mg/dL Creatinine (0.66-1.25) mg/dL Glucose (74-99) mg/dL POC Glucose (mg/dL) 340 H 72 L (75-99) mg/dL Hemoglobin A1c (4.0-6.0) % Alkaline Phosphatase (38-126) U/L Total Protein (6.3-8.2) g/dL Assessment and Plan Plan: Assessment: #1 Acute on chronic hypoxic respiratory failure with orthopnea, lower extremity swelling secondary to an acute exacerbation of chronic systolic congestive heart failure. #2 Non-ischemic cardiomyopathy with severely impaired left ventricular systolic function with ejection fraction less than 20%, status post AICD placement. #3 Elevated troponin of 0.055, could be related to acute exacerbation of chronic systolic congestive heart failure #4 Chronic hypoxic respiratory failure secondary to COPD, systolic congestive heart failure. #5 Severe chronic obstructive pulmonary disease, oxygen dependent. #6 Chronic and ongoing tobacco dependence. #7 History of chronic alcoholism. #8 Chronic pancreatitis with history of pancreatic pseudocyst and malabsorption secondary to chronic pancreatic insufficiency. #9 Diabetes mellitus. #10 Hypertension. #11 Hyperlipidemia. #12 Degenerative arthritis. #13 Chronic renal failure, unspecified Plan: Continue IV diuretics, patient is breathing easier, lower extremity edema is improving, treatments, Symbicort, increase activity as tolerated, overall patient is stable. No fever or chills, improvement in his breathing since admission. Anticipate discharge home today or tomorrow, follow up with Dr. Khanna in the outpatient basis I performed a history & physical examination of the patient and discussed their management with my nurse practitioner, Princess Epps. I reviewed the nurse practitioner's note and agree with the documented findings and plan of care. Lung sounds are positive for a few scattered rhonchi. The findings and the impression was discussed with the patient. I attest to the documentation by the nurse practitioner. Time with Patient: Less than 30
--- NOTE | 2019-02-07 14:18 | P.PN ---
Subjective Progress Note Date: 02/07/19 This is a 58-year-old gentleman with known history of nonischemic cardiomyopathy and prior AICD implantation, history of EtOH abuse, chronic systolic congestive heart failure, prior TIAs, hypertension, diabetes, COPD on home O2, chronic diaphragmatic paralysis, hyperlipidemia, chronic pancreatitis, nicotine dependence, who was most recently in the hospital in November with an exacerbation of congestive cardiac failure. He presented to the hospital on this occasion with symptoms of shortness of breath, he also was having some mental status changes and bilateral lower extremity edema. His chest x-ray on admission here revealed evidence of COPD with bilateral infiltrate and tiny effusions with evidence of fluid volume overload. EKG showed a normal sinus rhythm with occasional PVCs, left bundle-branch block pattern. I pressure 127/90 with a heart rate in the 100, 90% on 4 L of oxygen. White blood cell count 4.7, hemoglobin 11.6, platelet count 166. Sodium 136, potassium 4.9, BUN 36 and creatinine 1.1. Troponin 0.055, BNP level 10,500. UA negative. Patient was initiated on IV Lasix in the emergency room. Patient's most recent echocardiogram with Doppler study was performed on December 11 of this year which revealed an ejection fraction of 20-25%, severe global hypokinesia, moderate mitral regurgitation. 02/07/2019 Patient seen and examined this morning, good urine output through the night last night, continues to have about 1+ lateral peripheral edema. Blood pressure 134/70 with a heart rate of 80, 98%. White blood cell count 4.6, hemoglobin 11.6, platelet count 153. Sodium 134, potassium 5.0, BUN 36, creatinine 1.6. Objective - Vital Signs Vital signs: Vital Signs Temp 98.5 F 02/07/19 04:00 Pulse 86 02/07/19 11:43 Resp 19 02/07/19 04:00 BP 134/73 02/07/19 04:00 Pulse Ox 98 02/07/19 04:00 Intake & Output 02/06/19 02/07/19 02/07/19 18:59 06:59 18:59 Intake Total 1070 250 240 Balance 1070 250 240 Weight 62.142 kg 62.1 kg Intake: IV 10 10 0.9 10 Invasive Line 1 10 Oral 1060 240 240 Other: Voiding Method Toilet # Voids 4 2 - Exam HEAD: Normocephalic/atraumatic. EYES: Normal reaction of pupils, equal size. Conjunctiva pink, sclera white. NOSE: Clear with pink turbinates. THROAT: No erythema or exudates. NECK: No masses, no JVD, no thyroid enlargement, no adenopathy. CHEST: No chest wall deformity. Symmetrical expansion. LUNGS: Equal air entry with rales at bilateral bases, but no wheeze, rhonchi or dullness. CVS: Regular rate and rhythm, normal S1 and S2, systolic murmur heard ABDOMEN: Soft, nontender. No hepatosplenomegaly, normal bowel sounds, no guar ding or rigidity. EXTREMITIES: No clubbing, 2+ pretibial and ankle edema, no cyanosis, 2+ pulses and upper and lower extremities. MUSCULOSKELETAL: Muscle strength and tone normal. SPINE: No scoliosis or deformity SKIN: No rashes CENTRAL NERVOUS SYSTEM: No focal deficits, tone is normal in all 4 extremities. PSYCHIATRIC: Alert and oriented -3. Appropriate affect. Intact judgment and insight. - Labs CBC & Chem 7: 02/07/19 05:36 02/07/19 05:36 Labs: Abnormal Lab Results - Last 24 Hours (Table) 02/06/19 02/07/19 02/07/19 Range/Units 17:02 05:36 05:36 RBC (4.30-5.90) m/uL Hgb (13.0-17.5) gm/dL Hct (39.0-53.0) % MCHC (31.0-37.0) g/dL Sodium 134 L (137-145) mmol/L Chloride 96 L (98-107) mmol/L Carbon Dioxide 31 H (22-30) mmol/L BUN 36 H (9-20) mg/dL Creatinine 1.62 H (0.66-1.25) mg/dL Glucose 322 H (74-99) mg/dL POC Glucose (mg/dL) 289 H (75-99) mg/dL Hemoglobin A1c 10.0 H (4.0-6.0) % Alkaline Phosphatase 134 H (38-126) U/L Total Protein 5.8 L (6.3-8.2) g/dL 02/07/19 02/07/19 02/07/19 Range/Units 05:36 06:18 11:50 RBC 4.03 L (4.30-5.90) m/uL Hgb 11.6 L (13.0-17.5) gm/dL Hct 38.2 L (39.0-53.0) % MCHC 30.3 L (31.0-37.0) g/dL Sodium (137-145) mmol/L Chloride (98-107) mmol/L Carbon Dioxide (22-30) mmol/L BUN (9-20) mg/dL Creatinine (0.66-1.25) mg/dL Glucose (74-99) mg/dL POC Glucose (mg/dL) 340 H 72 L (75-99) mg/dL Hemoglobin A1c (4.0-6.0) % Alkaline Phosphatase (38-126) U/L Total Protein (6.3-8.2) g/dL Assessment and Plan Plan: Assessment and plan #1 Acute on chronic hypoxic respiratory failure with orthopnea, lower extremity swelling secondary to an acute exacerbation of chronic systolic congestive heart failure. #2 Non-ischemic cardiomyopathy with severely impaired left ventricular systolic function with ejection fraction less than 20%, status post AICD placement. #3 Elevated troponin of 0.055, could be related to acute exacerbation of chronic systolic congestive heart failure #4 Chronic hypoxic respiratory failure secondary to COPD, systolic congestive heart failure. #5 Severe chronic obstructive pulmonary disease, oxygen dependent. #6 Chronic and ongoing tobacco dependence. #7 History of chronic alcoholism. #8 Chronic pancreatitis with history of pancreatic pseudocyst and malabsorption secondary to chronic pancreatic insufficiency. #9 Diabetes mellitus. #10 Hypertension. #11 Hyperlipidemia. #12 Degenerative arthritis. #13 prior TIAs #14 GERD #15 history of pancreatic pseudocysts Plan Patient just recently had an echo in November of this year so we will not repeat an echo at this time. We will continue with baby aspirin, Lipitor, IV Lasix 40 mg twice a day, metoprolol 25 mg daily, and Entresto. DNP note has been reviewed, I agree with a documented findings and plan of care. Patient was seen and examined.
[2019-02-07 16:36] LABS: Glucose,Whole Blood 42 mg/dL (75-99)
[2019-02-07 16:51] LABS: Glucose,Whole Blood 49 mg/dL (75-99)
[2019-02-07] MEDS: FUROSEMIDE 40 MG TAB PO SCH (17:05)
[2019-02-07 17:13] LABS: Glucose,Whole Blood 96 mg/dL (75-99)
[2019-02-07 20:41] LABS: Glucose,Whole Blood 307 mg/dL (75-99)
[2019-02-07] MEDS: clonazePAM 0.5 MG TAB PO SCH (20:52)
[2019-02-07] MEDS ORDERED: ZOLPIDEM 10 MG TAB PO SCH (21:00)
[2019-02-08 06:25] LABS: Glucose,Whole Blood 206 mg/dL (75-99)
[2019-02-08] MEDS: INSULIN ASPART (NovoLOG) 100 UNIT/ML VIAL SQ SCH ×2 (06:28→12:32)
[2019-02-08 06:31] LABS: HGB 11.7 gm/dL (13.0-17.5); Hypochromasia Moderate; MCH 28.4 pg (25.0-35.0); MCV 94.7 fL (80.0-100.0); Mean Platelet Volume 7.2; Platelet Count 162 k/uL (150-450); RBC 4.12 m/uL (4.30-5.90); RDW 14.6 % (11.5-15.5)
[2019-02-08 06:41] LABS: Albumin 3.6 g/dL (3.5-5.0); Calcium 8.3 mg/dL (8.4-10.2); Potassium 5.6 mmol/L (3.5-5.1); Total Bilirubin 0.5 mg/dL (0.2-1.3); Total Protein 5.6 g/dL (6.3-8.2)
[2019-02-08] MEDS: IPRATROPIUM-ALBUTEROL 3 ML NEB INHALATION SCH ×2 (09:01→13:41)
[2019-02-08] MEDS: SYMBICORT 160-4.5 MCG INHALER INHALATION SCH (09:01)
[2019-02-08] MEDS: INSULIN DETEMIR (LEVEMIR) 100 UNIT/ML SYR SQ SCH (09:53)
[2019-02-08] MEDS: HYDROcodone/APAP 10-325MG 1 EACH TAB PO PRN (09:53)
[2019-02-08] MEDS: SACUBITRIL/VALSARTAN 24 MG-26 MG TABLET PO SCH (09:57)
[2019-02-08] MEDS: FUROSEMIDE 40 MG TAB PO SCH (09:57)
[2019-02-08] MEDS: PREGABALIN 100 MG CAP PO SCH (09:57)
[2019-02-08] MEDS: ASPIRIN 81 MG PO SCH (09:58)
[2019-02-08] MEDS: TAMSULOSIN 0.4 MG CAP.ER.24H PO SCH (09:58)
[2019-02-08] MEDS: DOCUSATE 100 MG CAP PO SCH (09:58)
[2019-02-08] MEDS: ATORVASTATIN 20 MG TAB PO SCH (09:58)
--- NOTE | 2019-02-08 11:14 | P.PN ---
Subjective Progress Note Date: 02/08/19 Principal diagnosis: Lower extremity edema, shortness of breath This is a very pleasant 58-year-old gentleman who follows with Dr. Lind as his primary care physician. He has a history of diabetes mellitus, CVA/TIA, hypertension, hyperlipidemia, severe nonischemic cardiomyopathy with an AICD placement, previous alcoholism, chronic pancreatitis with pancreatic pseudocyst, neuropathy, perforated left tympanic membrane with difficulty hearing. He also has severe oxygen dependent chronic hypoxic respiratory failure with home oxygen at 4 L per nasal cannula around the clock. He continues to smoke. He follows with Dr. Khanna in our office for the same. He presented here to the emergency room earlier this morning with some altered mental status thinking his sister was visiting nurse, chest discomfort, shortness of breath and increased swelling of the lower extremities. Asked x-ray shows evidence of COPD with bilateral infiltrates and tiny effusions with evidence of fluid volume overload. White count 4.7. Hemoglobin 11.6. Sodium 136. Potassium 4.9. Creatinine 1.15. Troponin 0.055. ProBNP 10,500. Urinalysis with 4+ glucose. Current blood glucose 478. He's been initiated on DuoNeb inhalations, Symbicort and the IV diuretics. He is on Entresto. Most recent echocardiogram revealed severely impaired left ventricular systolic function with ejection fraction 20-25%. On 02/07/2019 patient seen in follow-up on selective care in, he is awake and alert, in no acute distress, he states his breathing is improving, Ms. of 4 L of oxygen his pulse ox is 98%, no complaints of chest pain, his lower extremity edema is improving, no fever or chills, occasional cough. He was dynamically stable, no acute issues overnight, is on IV diuretics at 40 mg every 12 hours, remains on breathing treatments. Ultrasound Dopplers of lower extremities showed no evidence of DVT in bilateral lower extremities. On 02/08/2019 patient is seen in follow-up on selective care unit. Yesterday he was experiencing episodes of hypotension, and we had switched his diuretics to oral. This morning his blood pressure is 131/65, patient is awake and alert, in no acute distress, no fever or chills, no complaints of chest pain, he has been ambulating to the bathroom and back and tolerating activity well. Today's labs have been reviewed, there is very slight worsening of patient's renal profile, BUN is 48, and creatinine is 1.63. White count is 18.1, but patient has had no fever or chills. Clinically stable, and is requesting to go home today. Objective - Vital Signs Vital signs: Vital Signs Temp 97.8 F 02/08/19 08:02 Pulse 76 02/08/19 09:14 Resp 16 02/08/19 08:02 BP 131/65 02/08/19 08:02 Pulse Ox 95 02/08/19 08:02 Intake & Output 02/07/19 02/08/19 02/08/19 18:59 06:59 18:59 Intake Total 1680 480 Balance 1680 480 Weight 64.8 kg Intake: Oral 1680 480 Other: Voiding Method Urinal Urinal # Voids 2 2 - Exam GENERAL EXAM: Alert, pleasant, 58-year-old white male on 4 L of oxygen comfortable in no apparent distress. HEAD: Normocephalic/atraumatic. EYES: Normal reaction of pupils, equal size. Conjunctiva pink, sclera white. NOSE: Clear with pink turbinates. THROAT: No erythema or exudates. NECK: No masses, no JVD, no thyroid enlargement, no adenopathy. CHEST: No chest wall deformity. Symmetrical expansion. LUNGS: Equal air entry with a few rhonchi or dullness. CVS: Regular rate and rhythm, normal S1 and S2, no gallops, no murmurs, no rubs ABDOMEN: Soft, nontender. No hepatosplenomegaly, normal bowel sounds, no guarding or rigidity. EXTREMITIES: No clubbing, no edema, no cyanosis, 2+ pulses and upper and lower extremities. MUSCULOSKELETAL: Muscle strength and tone normal. SPINE: No scoliosis or deformity SKIN: No rashes CENTRAL NERVOUS SYSTEM: Alert and oriented -3. No focal deficits, tone is normal in all 4 extremities. PSYCHIATRIC: Alert and oriented -3. Appropriate affect. Intact judgment and insight. - Labs CBC & Chem 7: 02/08/19 05:53 02/08/19 05:53 Labs: Abnormal Lab Results - Last 24 Hours (Table) 02/07/19 02/07/19 02/07/19 Range/Units 05:36 11:50 16:30 RBC (4.30-5.90) m/uL Hgb (13.0-17.5) gm/dL MCHC (31.0-37.0) g/dL Sodium (137-145) mmol/L Potassium (3.5-5.1) mmol/L Chloride (98-107) mmol/L BUN (9-20) mg/dL Creatinine (0.66-1.25) mg/dL Glucose (74-99) mg/dL POC Glucose (mg/dL) 72 L 42 L (75-99) mg/dL Hemoglobin A1c 10.0 H (4.0-6.0) % Calcium (8.4-10.2) mg/dL Alkaline Phosphatase (38-126) U/L Total Protein (6.3-8.2) g/dL 02/07/19 02/07/19 02/08/19 Range/Units 16:44 20:36 05:53 RBC 4.12 L (4.30-5.90) m/uL Hgb 11.7 L (13.0-17.5) gm/dL MCHC 30.0 L (31.0-37.0) g/dL Sodium (137-145) mmol/L Potassium (3.5-5.1) mmol/L Chloride (98-107) mmol/L BUN (9-20) mg/dL Creatinine (0.66-1.25) mg/dL Glucose (74-99) mg/dL POC Glucose (mg/dL) 49 L 307 H (75-99) mg/dL Hemoglobin A1c (4.0-6.0) % Calcium (8.4-10.2) mg/dL Alkaline Phosphatase (38-126) U/L Total Protein (6.3-8.2) g/dL 02/08/19 02/08/19 Range/Units 05:53 06:23 RBC (4.30-5.90) m/uL Hgb (13.0-17.5) gm/dL MCHC (31.0-37.0) g/dL Sodium 133 L (137-145) mmol/L Potassium 5.6 H (3.5-5.1) mmol/L Chloride 95 L (98-107) mmol/L BUN 49 H (9-20) mg/dL Creatinine 1.94 H (0.66-1.25) mg/dL Glucose 159 H (74-99) mg/dL POC Glucose (mg/dL) 206 H (75-99) mg/dL Hemoglobin A1c (4.0-6.0) % Calcium 8.3 L (8.4-10.2) mg/dL Alkaline Phosphatase 135 H (38-126) U/L Total Protein 5.6 L (6.3-8.2) g/dL Assessment and Plan Plan: Assessment: #1 Acute on chronic hypoxic respiratory failure with orthopnea, lower extremity swelling secondary to an acute exacerbation of chronic systolic congestive heart failure. #2 Non-ischemic cardiomyopathy with severely impaired left ventricular systolic function with ejection fraction less than 20%, status post AICD placement. #3 Elevated troponin of 0.055, could be related to acute exacerbation of chronic systolic congestive heart failure #4 Chronic hypoxic respiratory failure secondary to COPD, systolic congestive heart failure. #5 Severe chronic obstructive pulmonary disease, oxygen dependent. #6 Chronic and ongoing tobacco dependence. #7 History of chronic alcoholism. #8 Chronic pancreatitis with history of pancreatic pseudocyst and malabsorption secondary to chronic pancreatic insufficiency. #9 Diabetes mellitus. #10 Hypertension. #11 Hyperlipidemia. #12 Degenerative arthritis. #13 Chronic renal failure, unspecified Plan: Blood pressure has recovered, patient continues on his home dose oral Lasix 40 mg twice daily, breathing is stable, he is tolerating ambulation, he is on supplemental oxygen 4 L, with a pulse ox of 99%, no fever or chills, no complaints of chest pain or worsening dyspnea. She is requesting to go home today, and she stable for discharge from pulmonary perspective, he will need to follow up with Dr. Khanna in the office in one or 2 weeks I performed a history & physical examination of the patient and discussed their management with my nurse practitioner, Princess Epps. I reviewed the nurse practitioner's note and agree with the documented findings and plan of care. Lung sounds are positive for a few scattered rhonchi. The findings and the impression was discussed with the patient. I attest to the documentation by the nurse practitioner. Time with Patient: Less than 30
[2019-02-08 11:33] VITALS: BP 121/68; RESP 20; TEMP 97.6
[2019-02-08 12:35] LABS: Glucose,Whole Blood 377 mg/dL (75-99)
--- NOTE | 2019-02-08 12:57 | P.DS ---
Providers Date of admission: 02/06/19 09:02 Attending physician: Yusuf Lind Consults: 02/06/19 12:21 Consult Physician Routine Consulting Provider: Adriana Steiner Consult Reason/Comments: CHF, COPD Do you want consulting provider notified?: Yes Consult Physician Routine Consulting Provider: Cal Lafleur Consult Reason/Comments: CHF Do you want consulting provider notified?: Yes Primary care physician: Yusuf Lind - Discharge Diagnosis(es) (1) CHF exacerbation Current Visit: Yes Status: Acute (2) COPD (chronic obstructive pulmonary disease) Current Visit: Yes Status: Acute (3) Chronic pancreatitis Current Visit: No Status: Acute (4) Diabetes Current Visit: No Status: Acute (5) Diabetic neuropathy Current Visit: No Status: Acute (6) NICM (nonischemic cardiomyopathy) Current Visit: No Status: Acute Hospital Course: This is a discharge summary 58-year-old white male essentially admitted for exacerbation of CHF. Per diuresis and consultations including cardiology and pulmonology were done. The patient had appropriate weight loss and is now breathing without difficulty. We had a long discussion regarding tobacco cessation. He is discharged in stable condition following about 3-5 days per Patient Condition at Discharge: Serious Plan - Discharge Summary Discharge Rx Participant: No New Discharge Prescriptions: No Action Zolpidem [Ambien] 10 mg PO HS Docusate [Colace] 100 mg PO DAILY HYDROcodone/APAP 10-325MG [[place] 10-325] 1 tab PO Q4HR PRN #120 tab PRN Reason: Pain Polyethylene Glycol 3350 [Miralax] 17 gm PO DAILY Nitroglycerin Sl Tabs [Nitrostat] 0.4 mg SUBLINGUAL Q5M PRN PRN Reason: Chest Pain Insulin Lispro [humaLOG Kwikpen] See Protocol SQ ACHS Tamsulosin HCl [Flomax] 0.4 mg PO DAILY Lipase/Protease/Amylase [[place] 36,000 Units Capsule] 36,000 units PO TID Atorvastatin [Lipitor] 20 mg PO DAILY Aspirin 81 mg PO DAILY chew Furosemide [Lasix] 40 mg PO BID@0900,1600 tab Diphenoxylate HCl/Atropine [Lomotil 2.5-0.025 mg Tablet] 1 tab PO BID PRN PRN Reason: Diarrhea Metoprolol Succinate (ER) [Toprol Xl] 25 mg PO BID Gabapentin [Neurontin] 400 mg PO BID Fluticasone/Vilanterol [Breo Ellipta 200-25 Mcg INH] 1 puff INHALATION RT- DAILY Ipratropium-Albuterol Nebulize [Duoneb 0.5 mg-3 mg/3 ml Soln] 3 ml INHALATION RT-QID Insulin Degludec [Tresiba Flextouch U-100] 32 unit SQ QAM clonazePAM 0.5 mg PO HS Ipratropium/Albuterol Sulfate [Combivent Respimat Inhaler] 1 puff INHALATION RT-QID Discharge Medication List Docusate [Colace] 100 mg PO DAILY 05/04/18 [History] Zolpidem [Ambien] 10 mg PO HS 05/04/18 [History] HYDROcodone/APAP 10-325MG [[place] 10-325] 1 tab PO Q4HR PRN #120 tab 05/18/18 [Rx] Atorvastatin [Lipitor] 20 mg PO DAILY 11/16/18 [History] Insulin Lispro [humaLOG Kwikpen] See Protocol SQ ACHS 11/16/18 [History] Lipase/Protease/Amylase [Creon Dr 36,000 Units Capsule] 36,000 units PO TID 11/16/18 [History] Nitroglycerin Sl Tabs [Nitrostat] 0.4 mg SUBLINGUAL Q5M PRN 11/16/18 [History] Polyethylene Glycol 3350 [Miralax] 17 gm PO DAILY 11/16/18 [History] Tamsulosin HCl [Flomax] 0.4 mg PO DAILY 11/16/18 [History] Aspirin 81 mg PO DAILY chew 11/18/18 [Rx] Furosemide [Lasix] 40 mg PO BID@0900,1600 tab 12/17/18 [Rx] Diphenoxylate HCl/Atropine [Lomotil 2.5-0.025 mg Tablet] 1 tab PO BID PRN 02/06/19 [History] Fluticasone/Vilanterol [Breo Ellipta 200-25 Mcg INH] 1 puff INHALATION RT-DAILY 02/06/19 [History] Gabapentin [Neurontin] 400 mg PO BID 02/06/19 [History] Insulin Degludec [Tresiba Flextouch U-100] 32 unit SQ QAM 02/06/19 [History] Ipratropium-Albuterol Nebulize [Duoneb 0.5 mg-3 mg/3 ml Soln] 3 ml INHALATION RT-QID 02/06/19 [History] Ipratropium/Albuterol Sulfate [Combivent Respimat Inhaler] 1 puff INHALATION RT- QID 02/06/19 [History] Metoprolol Succinate (ER) [Toprol Xl] 25 mg PO BID 02/06/19 [History] clonazePAM 0.5 mg PO HS 02/06/19 [History] Follow up Appointment(s)/Referral(s): Yusuf Lind MD [Primary Care Provider] - 1-2 days Steve Khanna MD [STAFF PHYSICIAN] - 1 Week Patient Instructions/Handouts: Heart Failure (DC), Heart Healthy Diet (DC) Activity/Diet/Wound Care/Special Instructions: [facility] care Discharge Disposition: HOME SELF-CARE
[2019-02-08 13:58] VITALS: PULSE 76
--- NOTE | 2019-02-08 14:32 | P.PN ---
Subjective Progress Note Date: 02/08/19 This is a 58-year-old gentleman with known history of nonischemic cardiomyopathy and prior AICD implantation, history of EtOH abuse, chronic systolic congestive heart failure, prior TIAs, hypertension, diabetes, COPD on home O2, chronic diaphragmatic paralysis, hyperlipidemia, chronic pancreatitis, nicotine dependence, who was most recently in the hospital in November with an exacerbation of congestive cardiac failure. He presented to the hospital on this occasion with symptoms of shortness of breath, he also was having some mental status changes and bilateral lower extremity edema. His chest x-ray on admission here revealed evidence of COPD with bilateral infiltrate and tiny effusions with evidence of fluid volume overload. EKG showed a normal sinus rhythm with occasional PVCs, left bundle-branch block pattern. I pressure 127/90 with a heart rate in the 100, 90% on 4 L of oxygen. White blood cell count 4.7, hemoglobin 11.6, platelet count 166. Sodium 136, potassium 4.9, BUN 36 and creatinine 1.1. Troponin 0.055, BNP level 10,500. UA negative. Patient was initiated on IV Lasix in the emergency room. Patient's most recent echocardiogram with Doppler study was performed on December 11 of this year which revealed an ejection fraction of 20-25%, severe global hypokinesia, moderate mitral regurgitation. 02/07/2019 Patient seen and examined this morning, good urine output through the night last night, continues to have about 1+ lateral peripheral edema. Blood pressure 134/70 with a heart rate of 80, 98%. White blood cell count 4.6, hemoglobin 11.6, platelet count 153. Sodium 134, potassium 5.0, BUN 36, creatinine 1.6. 02/08/2019 White blood cell count 4.0, hemoglobin 11.7, Patient was seen and examined this morning, doing significantly better overall. Edema is much less. Breathing is considerably improved. Blood pressure 120/60 with a heart rate in the 70s 94% on 4 L of oxygen. White blood cell count 4.0, hemoglobin 11.7, platelet count 162. Sodium 133, potassium 5.6, BUN 49 and creatinine 1.9. Objective - Vital Signs Vital signs: Vital Signs Temp 97.6 F 02/08/19 11:33 Pulse 76 02/08/19 13:55 Resp 20 02/08/19 11:33 BP 121/68 02/08/19 11:33 Pulse Ox 94 L 02/08/19 11:33 Intake & Output 02/07/19 02/08/19 02/08/19 18:59 06:59 18:59 Intake Total 1680 480 Balance 1680 480 Weight 64.8 kg Intake: Oral 1680 480 Other: Voiding Method Urinal Urinal # Voids 2 2 - Exam HEAD: Normocephalic/atraumatic. EYES: Normal reaction of pupils, equal size. Conjunctiva pink, sclera white. NOSE: Clear with pink turbinates. THROAT: No erythema or exudates. NECK: No masses, no JVD, no thyroid enlargement, no adenopathy. CHEST: No chest wall deformity. Symmetrical expansion. LUNGS: Equal air entry with rales at bilateral bases, but no wheeze, rhonchi or dullness. CVS: Regular rate and rhythm, normal S1 and S2, systolic murmur heard ABDOMEN: Soft, nontender. No hepatosplenomegaly, normal bowel sounds, no guarding or rigidity. EXTREMITIES: No clubbing, trace to 1+ pretibial and ankle edema, no cyanosis, 2+ pulses and upper and lower extremities. MUSCULOSKELETAL: Muscle strength and tone normal. SPINE: No scoliosis or deformity SKIN: No rashes CENTRAL NERVOUS SYSTEM: No focal deficits, tone is normal in all 4 extremities. PSYCHIATRIC: Alert and oriented -3. Appropriate affect. Intact judgment and insight. - Labs CBC & Chem 7: 02/08/19 05:53 02/08/19 05:53 Labs: Abnormal Lab Results - Last 24 Hours (Table) 02/07/19 02/07/19 02/07/19 Range/Units 16:30 16:44 20:36 RBC (4.30-5.90) m/uL Hgb (13.0-17.5) gm/dL MCHC (31.0-37.0) g/dL Sodium (137-145) mmol/L Potassium (3.5-5.1) mmol/L Chloride (98-107) mmol/L BUN (9-20) mg/dL Creatinine (0.66-1.25) mg/dL Glucose (74-99) mg/dL POC Glucose (mg/dL) 42 L 49 L 307 H (75-99) mg/dL Calcium (8.4-10.2) mg/dL Alkaline Phosphatase (38-126) U/L Total Protein (6.3-8.2) g/dL 02/08/19 02/08/19 02/08/19 Range/Units 05:53 05:53 06:23 RBC 4.12 L (4.30-5.90) m/uL Hgb 11.7 L (13.0-17.5) gm/dL MCHC 30.0 L (31.0-37.0) g/dL Sodium 133 L (137-145) mmol/L Potassium 5.6 H (3.5-5.1) mmol/L Chloride 95 L (98-107) mmol/L BUN 49 H (9-20) mg/dL Creatinine 1.94 H (0.66-1.25) mg/dL Glucose 159 H (74-99) mg/dL POC Glucose (mg/dL) 206 H (75-99) mg/dL Calcium 8.3 L (8.4-10.2) mg/dL Alkaline Phosphatase 135 H (38-126) U/L Total Protein 5.6 L (6.3-8.2) g/dL 02/08/19 Range/Units 12:18 RBC (4.30-5.90) m/uL Hgb (13.0-17.5) gm/dL MCHC (31.0-37.0) g/dL Sodium (137-145) mmol/L Potassium (3.5-5.1) mmol/L Chloride (98-107) mmol/L BUN (9-20) mg/dL Creatinine (0.66-1.25) mg/dL Glucose (74-99) mg/dL POC Glucose (mg/dL) 377 H (75-99) mg/dL Calcium (8.4-10.2) mg/dL Alkaline Phosphatase (38-126) U/L Total Protein (6.3-8.2) g/dL Assessment and Plan Plan: Assessment and plan #1 Acute on chronic hypoxic respiratory failure with orthopnea, lower extremity swelling secondary to an acute exacerbation of chronic systolic congestive heart failure. #2 Non-ischemic cardiomyopathy with severely impaired left ventricular systolic function with ejection fraction less than 20%, status post AICD placement. #3 Elevated troponin of 0.055, could be related to acute exacerbation of chronic systolic congestive heart failure #4 Chronic hypoxic respiratory failure secondary to COPD, systolic congestive heart failure. #5 Severe chronic obstructive pulmonary disease, oxygen dependent. #6 Chronic and ongoing tobacco dependence. #7 History of chronic alcoholism. #8 Chronic pancreatitis with history of pancreatic pseudocyst and malabsorption secondary to chronic pancreatic insufficiency. #9 Diabetes mellitus. #10 Hypertension. #11 Hyperlipidemia. #12 Degenerative arthritis. #13 prior TIAs #14 GERD #15 history of pancreatic pseudocysts Plan I'm cardiology's perspective, patient may be able to be discharged home today, follow-up appointment will be made in the office post discharge with Dr. Be. DNP note has been reviewed, I agree with a documented findings and plan of care. Patient was seen and examined.
== END 2019-02-08 14:51 | disposition home health service (06) | DRG 291 ==
LOC: EC 06:46 → 3SCARD 09:02
PROVIDERS: ADMIT Family Medicine; ATTEND Family Medicine
DX: I13.0 Hypertensive heart and chronic kidney disease with heart failure and stage 1 through stage 4 chronic kidney disease, or unspecified chronic kidney disease (principal); J96.21 Acute and chronic respiratory failure with hypoxia; I50.23 Acute on chronic systolic (congestive) heart failure; J18.9 Pneumonia, unspecified organism; K86.1 Other chronic pancreatitis; K90.9 Intestinal malabsorption, unspecified; J44.9 Chronic obstructive pulmonary disease, unspecified; I95.9 Hypotension, unspecified; G89.29 Other chronic pain; K86.89 Other specified diseases of pancreas; E11.40 Type 2 diabetes mellitus with diabetic neuropathy, unspecified; E11.22 Type 2 diabetes mellitus with diabetic chronic kidney disease; K21.9 Gastro-esophageal reflux disease without esophagitis; E78.5 Hyperlipidemia, unspecified; M19.90 Unspecified osteoarthritis, unspecified site; I42.8 Other cardiomyopathies; F17.210 Nicotine dependence, cigarettes, uncomplicated; G43.909 Migraine, unspecified, not intractable, without status migrainosus; Y95 Nosocomial condition; F10.21 Alcohol dependence, in remission; N18.9 Chronic kidney disease, unspecified; I44.7 Left bundle-branch block, unspecified; I34.0 Nonrheumatic mitral (valve) insufficiency; Z98.890 Other specified postprocedural states; Z83.3 Family history of diabetes mellitus; Z82.49 Family history of ischemic heart disease and other diseases of the circulatory system; Z83.1 Family history of other infectious and parasitic diseases; Z82.5 Family history of asthma and other chronic lower respiratory diseases; Z79.899 Other long term (current) drug therapy; Z79.82 Long term (current) use of aspirin; Z79.51 Long term (current) use of inhaled steroids; Z79.4 Long term (current) use of insulin; Z88.6 Allergy status to analgesic agent; Z88.8 Allergy status to other drugs, medicaments and biological substances; Z91.018 Allergy to other foods; Z86.73 Personal history of transient ischemic attack (TIA), and cerebral infarction without residual deficits; Z87.01 Personal history of pneumonia (recurrent); Z99.81 Dependence on supplemental oxygen; Z95.810 Presence of automatic (implantable) cardiac defibrillator; Z86.19 Personal history of other infectious and parasitic diseases
CPT/HCPCS: 36415; 71046; 80053; 81001; 83036; 83735; 83880; 84484; 85025; 85027; 85610; 85730; 93005; 93970; 94640; 94760; 96374; 99291

== ENCOUNTER → 2019-05-02 | Outpatient (CLI) | payer MEDICARE, OTHER ==
[2019-05-02 18:19] LABS: Anisocytosis Slight; Basophils % (A) 1 %; Eosinophils # (A) 0.2 k/uL (0-0.7); Eosinophils % (A) 4 %; Hypochromasia Marked; Lymphocytes # (A) 1.1 k/uL (1.0-4.8); Lymphocytes % (A) 24 %; MCH 28.4 pg (25.0-35.0); MCHC 30.1 g/dL (31.0-37.0); MCV 94.5 fL (80.0-100.0); Mean Platelet Volume 9.1; Monocytes # (A) 0.4 k/uL (0-1.0); Monocytes % (A) 9 %; Neutrophils # (A) 2.8 k/uL (1.3-7.7); Neutrophils % (A) 60 %; Platelet Count 138 k/uL (150-450); RBC 4.23 m/uL (4.30-5.90); RDW 16.5 % (11.5-15.5); WBC 4.6 k/uL (3.8-10.6)
[2019-05-03 00:55] LABS: African American GFR (CKD) 57.8 (60.0-200.0); Albumin 4.4 g/dL (3.80-4.90); Albumin/Globulin Ratio 3.67 (1.60-3.17); Anion Gap 4.3 mmol/L (4.00-12.00); BUN/Creat Ratio 15.33 Ratio (12.00-20.00); Calcium 8.4 mg/dL (8.7-10.3); Carbon Dioxide 26.7 mmol/L (21.6-31.8); Globulin 1.2 g/dL (1.6-3.3); Non-African American GFR(CKD) 49.9 (60.0-200.0); Potassium 4.9 mmol/L (3.5-5.5); Total Bilirubin 0.3 mg/dL (0.3-1.2); Total Protein 5.6 g/dL (6.2-8.2)
== END | disposition home or self-care (01) ==
LOC: LABWHC1 17:07
PROVIDERS: ATTEND Internal Medicine Critical Care Medicine
DX: N28.9 Disorder of kidney and ureter, unspecified (principal)
CPT/HCPCS: 36415; 80053; 85025

== ENCOUNTER 2019-09-23 10:33 | Inpatient (IN) | payer MEDICARE, OTHER ==
--- NOTE | 2019-09-23 11:21 | ED ---
General Adult HPI - General Chief complaint: Neuro Symptoms/Deficit Stated complaint: chest pain Time Seen by Provider: 09/23/19 10:44 Source: patient, family Mode of arrival: wheelchair Limitations: no limitations - History of Present Illness Initial comments: Dictation was produced using what3words dictation software. please excuse any grammatical, word or spelling errors. This patient was cared for during a federal and state declared state of ergency secondary to Covid 19 Chief Complaint: 58-year-old male with past medical history of heart failure, diabetes, COPD, dyslipidemia presents with ataxia. History of Present Illness: patient is a 58-year-old male presents today with ataxia. Patient woke up this morning to go to the bathroom when he felt like he was tripping over his own feet. Patient states he has had a history of stroke in the past. Patient denies any fever, chills or night sweats. Does report some mild neck pain. Patient states that he feels a little bit more paresthesias in the right compared to the left lower refill is equally weak in both legs. Denies any numbness to the legs. Patient's family member resident bedside reports that patient is "a hot mess" this morning. According to family member patient does not appear to be confused. Denies any bowel or bladder incontinence. He does feel some mild neck pain. Having trouble relaxing his neck back. The ROS documented in this emergency department record has been reviewed and confirmed by me. Those systems with pertinent positive or negative responses have been documented in the HPI. All other systems are other negative and/or noncontributory. PHYSICAL EXAM: General Impression: Alert and oriented x3, not in acute distress HEENT: Normocephalic atraumatic, extra-ocular movements intact, pupils equal and reactive to light bilaterally, mucous membranes moist, neck moves around freely Cardiovascular: Heart regular rate and rhythm Chest: Able to complete full sentences, no retractions, no tachypnea Abdomen: abdomen soft, non-tender, non-distended, no organomegaly Musculoskeletal: Pulses present and equal in all extremities, no peripheral edema Motor: Equally weak in both lower extremities Neurological: CN II-XII grossly intact, difficulty standing, unable to walk Skin: Intact with no visualized rashes Psych: Frustrated ED course: 58-year-old male presents with acute onset ataxia. Vital signs upon arrival shows heart rate of 40, rest of vital signs within acceptable limits per patient has trouble standing. He denies any sensation of the room spinning. Code stroke paged. He has some subjective paresthesias worse in the right leg compared to the left. Laboratory evaluation obtained. CBC unremarkable. Coag panel unremarkable. Patient's sodium is 120, potassium 5.8. Elevated renal markers which appear to be around patient's baseline. Glucose 345. Troponin is 0.041 which appears to be around his baseline. Slight elevation in liver markers. Medications were reviewed. Given patient's clinical presentation is concern of prerenal azotemia secondary to dehydration and diuretic use. Computed tomography scan of the brain and CT angios of the head and neck was obtained showing no acute processes. Patient states he does not feel any symptoms at this time. He claims he is not weak and wants to go home. Discussed with patient that there is concern of either neurologic issue and there is also a component of metabolic abnormalities. Patient states that he does not feel paresthesias in his right leg any more since arriving to the hospital. He was then convinced that he should be admitted for at medical monitoring and neurology consultation. Patient given aspirin. Patient is agreeable. Patient given dextrose, Lasix, insulin, Kayexalate. he'll be admitted to [facility] hospitalist group. Pending discussion with on-call hospitalist. EKG interpretation: Ventricular rate 85, sinus rhythm, left bundle CA interval. 172, QRS 144, QTC 476. No CA prolongation, no QTC prolongation, no ST or T-wave changes noted. EKG compared to 09/15/2019 showing no changes. Overall, this EKG is unremarkable. No sgarbossa criteria. - Related Data Home Medications Medication Instructions Recorded Confirmed Lipase/Protease/Amylase [[place] 36,000 units PO TID 11/16/18 09/23/19 36,000 Units Capsule] Nitroglycerin Sl Tabs [Nitrostat] 0.4 mg SUBLINGUAL Q5M PRN 11/16/18 09/23/19 Diphenoxylate HCl/Atropine 1 tab PO BID PRN 02/06/19 09/23/19 [Lomotil 2.5-0.025 mg Tablet] Ipratropium/Albuterol Sulfate 1 puff INHALATION RT-QID 02/06/19 09/23/19 [Combivent Respimat Inhaler] Metoprolol Succinate (ER) [Toprol 25 mg PO BID 02/06/19 09/23/19 Xl] Atorvastatin [Lipitor] 40 mg PO HS 09/23/19 09/23/19 Famotidine [Pepcid] 20 mg PO BID 09/23/19 09/23/19 Furosemide [Lasix] 40 mg PO DAILY 09/23/19 09/23/19 Insulin Glargine,Hum.rec.anlog 30 unit SQ DAILY 09/23/19 09/23/19 [Lantus Solostar] Nitroglycerin 0.1MG/Hr Patch 1 patch TRANSDERM DAILY 09/23/19 09/23/19 [Nitro-Dur 0.1MG/Hr Patch] Pregabalin 225 mg PO BID 09/23/19 09/23/19 Sacubitril/Valsartan [Entresto 24 1 tab PO BID 09/23/19 09/23/19 mg-26 mg Tablet] Varenicline [Chantix Continuing 1 mg PO BID 09/23/19 09/23/19 Pack] oxyCODONE-APAP 10-325MG [Percocet 1 tab PO Q6HR PRN 09/23/19 09/23/19 10-325 mg] Previous Rx's Medication Instructions Recorded HYDROcodone/APAP 10-325MG [[place] 1 tab PO Q4HR PRN #120 tab 05/18/18 10-325] Aspirin 81 mg PO DAILY chew 11/18/18 Allergies Allergy/AdvReac Type Severity Reaction Status Date / Time meperidine HCl [From Demerol] AdvReac Severe Rapid Verified 09/23/19 11:59 Heart Rate/VOMITING ibuprofen [From Motrin] AdvReac Vomiting Verified 09/23/19 11:59 mayonnaise AdvReac Nausea & Verified 09/23/19 11:59 Vomiting & Diarrhea Review of Systems ROS Statement: Those systems with pertinent positive or pertinent negative responses have been documented in the HPI. ROS Other: All systems not noted in ROS Statement are negative. Past Medical History Past Medical History: Heart Failure, COPD, CVA/TIA, Diabetes Mellitus, GERD/Reflux, Hyperlipidemia, Hypertension, Osteoarthritis (OA), Pneumonia, Renal Disease Additional Past Medical History / Comment(s): Severe COPD, chronic hypoxic respiratory failure, home oxygen at 4L/NC ATC, nonishemic cardiomyopathy, AICD /pacer placement, TIA in 2018, pt denies past alcoholism, chronic pancreatitis, 3 pancreatic pseudocysts, IDDM type II, neuropathy biltaral legs/feet, chronic smoker, bilateral tinnitis occasionally, history of perforated left tympanic membranes-[place] left ear, pt states he has been treated for L arm pain with physical therapy but still having problems and has decreased ROM, chronic generalized pain, sinusitis History of Any Multi-Drug Resistant Organisms: None Reported Past Surgical History: AICD, Pacemaker Additional Past Surgical History / Comment(s): colonoscopy, "lump" removed from left side of neck. Past Anesthesia/Blood Transfusion Reactions: No Reported Reaction Type of Cardiac Device: Permanent Pacemaker, AICD Device Placement Date:: 09/2016 Past Psychological History: No Psychological Hx Reported Smoking Status: Current every day smoker - Past Family History Father Family Medical History: Congestive Heart Failure (CHF), COPD, Diabetes Mellitus Additional Family Medical History / Comment(s): Father is . He had mrsa, asbestoes exposure/lungs Mother Family Medical History: Diabetes Mellitus, Hypertension Additional Family Medical History / Comment(s): Mother is 87yrs old. General Exam Limitations: no limitations Course Vital Signs 09/23/19 09/23/19 09/23/19 10:36 10:47 11:14 Temperature 98.3 F Pulse Rate 48 L 54 L Respiratory 18 24 Rate Blood Pressure 117/75 100/61 O2 Sat by Pulse 96 100 100 Oximetry 09/23/19 09/23/19 09/23/19 11:15 11:30 11:45 Temperature Pulse Rate 60 67 68 Respiratory 20 22 23 Rate Blood Pressure 100/61 123/67 129/73 O2 Sat by Pulse 100 100 100 Oximetry 09/23/19 09/23/19 12:00 12:20 Temperature Pulse Rate 66 66 Respiratory 21 22 Rate Blood Pressure 102/49 114/69 O2 Sat by Pulse 100 100 Oximetry Medical Decision Making - Lab Data Result diagrams: 09/23/19 11:22 09/23/19 11:22 Lab Results 09/23/19 09/23/19 09/23/19 Range/Units 11:22 11:22 11:22 WBC 6.4 (3.8-10.6) k/uL RBC 4.58 (4.30-5.90) m/uL Hgb 13.8 (13.0-17.5) gm/dL Hct 42.6 (39.0-53.0) % MCV 93.0 (80.0-100.0) fL MCH 30.2 (25.0-35.0) pg MCHC 32.5 (31.0-37.0) g/dL RDW 15.2 (11.5-15.5) % Plt Count 143 L (150-450) k/uL Neutrophils % 57 % Lymphocytes % 24 % Monocytes % 8 % Eosinophils % 9 % Basophils % 0 % Neutrophils # 3.6 (1.3-7.7) k/uL Lymphocytes # 1.5 (1.0-4.8) k/uL Monocytes # 0.5 (0-1.0) k/uL Eosinophils # 0.6 (0-0.7) k/uL Basophils # 0.0 (0-0.2) k/uL Hypochromasia Slight PT 10.6 (9.0-12.0) sec INR 1.0 (<1.2) APTT 25.8 (22.0-30.0) sec Sodium 128 L (137-145) mmol/L Potassium 5.8 H (3.5-5.1) mmol/L Chloride 94 L (98-107) mmol/L Carbon Dioxide 24 (22-30) mmol/L Anion Gap 10 mmol/L BUN 37 H (9-20) mg/dL Creatinine 1.83 H (0.66-1.25) mg/dL Est GFR (CKD-EPI)AfAm 45 (>60 ml/min/1.73 sqM) Est GFR (CKD-EPI)NonAf 39 (>60 ml/min/1.73 sqM) Glucose 345 H (74-99) mg/dL Plasma Lactic Acid Iam (0.7-2.0) mmol/L Calcium 9.1 (8.4-10.2) mg/dL Ionized Calcium Racquel 5.1 (4.5-5.3) mg/dL Magnesium 2.2 (1.6-2.3) mg/dL Total Bilirubin 0.7 (0.2-1.3) mg/dL AST 68 H (17-59) U/L ALT 78 H (4-49) U/L Alkaline Phosphatase 615 H (38-126) U/L Troponin I (0.000-0.034) ng/mL Total Protein 6.5 (6.3-8.2) g/dL Albumin 4.2 (3.5-5.0) g/dL 09/23/19 09/23/19 Range/Units 11:22 11:22 WBC (3.8-10.6) k/uL RBC (4.30-5.90) m/uL Hgb (13.0-17.5) gm/dL Hct (39.0-53.0) % MCV (80.0-100.0) fL MCH (25.0-35.0) pg MCHC (31.0-37.0) g/dL RDW (11.5-15.5) % Plt Count (150-450) k/uL Neutrophils % % Lymphocytes % % Monocytes % % Eosinophils % % Basophils % % Neutrophils # (1.3-7.7) k/uL Lymphocytes # (1.0-4.8) k/uL Monocytes # (0-1.0) k/uL Eosinophils # (0-0.7) k/uL Basophils # (0-0.2) k/uL Hypochromasia PT (9.0-12.0) sec INR (<1.2) APTT (22.0-30.0) sec Sodium (137-145) mmol/L Potassium (3.5-5.1) mmol/L Chloride (98-107) mmol/L Carbon Dioxide (22-30) mmol/L Anion Gap mmol/L BUN (9-20) mg/dL Creatinine (0.66-1.25) mg/dL Est GFR (CKD-EPI)AfAm (>60 ml/min/1.73 sqM) Est GFR (CKD-EPI)NonAf (>60 ml/min/1.73 sqM) Glucose (74-99) mg/dL Plasma Lactic Acid Iam 0.7 (0.7-2.0) mmol/L Calcium (8.4-10.2) mg/dL Ionized Calcium Racquel (4.5-5.3) mg/dL Magnesium (1.6-2.3) mg/dL Total Bilirubin (0.2-1.3) mg/dL AST (17-59) U/L ALT (4-49) U/L Alkaline Phosphatase (38-126) U/L Troponin I 0.041 H* (0.000-0.034) ng/mL Total Protein (6.3-8.2) g/dL Albumin (3.5-5.0) g/dL Disposition Clinical Impression: Electrolyte abnormality, Ataxia, Paresthesia Disposition: ADMITTED IP TO THIS [facility] Condition: Fair Referrals: Yusuf Lind MD [Primary Care Provider] - 1-2 days Decision Time: 13:24
[2019-09-23 11:34] LABS: Ionized Calcium 5.1 mg/dL (4.5-5.3)
[2019-09-23 11:40] LABS: Albumin 4.2 g/dL (3.5-5.0); Calcium 9.1 mg/dL (8.4-10.2); Magnesium 2.2 mg/dL (1.6-2.3); Potassium 5.8 mmol/L (3.5-5.1); Total Bilirubin 0.7 mg/dL (0.2-1.3); Total Protein 6.5 g/dL (6.3-8.2)
[2019-09-23 11:43] LABS: Basophils % (A) 0 %; Eosinophils # (A) 0.6 k/uL (0-0.7); Eosinophils % (A) 9 %; HCT 42.6 % (39.0-53.0); HGB 13.8 gm/dL (13.0-17.5); Hypochromasia Slight; Lymphocytes # (A) 1.5 k/uL (1.0-4.8); Lymphocytes % (A) 24 %; MCH 30.2 pg (25.0-35.0); MCHC 32.5 g/dL (31.0-37.0); Mean Platelet Volume 8.6; Monocytes # (A) 0.5 k/uL (0-1.0); Monocytes % (A) 8 %; Neutrophils # (A) 3.6 k/uL (1.3-7.7); Neutrophils % (A) 57 %; Platelet Count 143 k/uL (150-450); RBC 4.58 m/uL (4.30-5.90); RDW 15.2 % (11.5-15.5); WBC 6.4 k/uL (3.8-10.6)
--- NOTE | 2019-09-23 11:46 | CT ---
EXAMINATION TYPE: CT brain wo con DATE OF EXAM: 09/23/2019 COMPARISON: Previous study dated 03/22/2018. HISTORY: CODE STROKE CT DLP: Not available at time of entry [email or web address] Automated exposure control for dose reduction was used. FINDINGS: No 2 axial images are submitted for interpretation. There are various coronal and coronal oblique candelario ges. Central structures appear midline. There is no evidence of hydrocephalus. No acute focal lesion, mass effect or midline shift is seen. I do not see evidence of intracranial blood. Coronal views of the sinuses are unremarkable. Coronal views of the mastoid air cells are unremarkabl e. IMPRESSION: 1. MARKEDLY SUBOPTIMAL EXAMINATION WITHOUT AXIAL IMAGES. 2. NO ACUTE INTRACRANIAL ABNORMALITY.
--- NOTE | 2019-09-23 11:49 | XR ---
EXAMINATION TYPE: XR chest 1V DATE OF EXAM: 09/23/2019 HISTORY: cva. REFERENCE: Previous study dated 02/06/2019. FINDINGS: There is unipolar pacemaker place on the left. Heart size upper limits of normal. The lungs appear clear. Pleural spaces are clear. IMPRESSION: BORDERLINE CARDIOMEGALY.
[2019-09-23] MEDS ORDERED: SODIUM CHLORIDE 0.9% 1,000 ML IV STA (11:57)
[2019-09-23 12:07] LABS: Partial Thromboplastin Time 25.8 sec (22.0-30.0); Prothrombin Time 10.6 sec (9.0-12.0)
[2019-09-23] MEDS ORDERED: INSULIN REGULAR 100 UNIT/ML VIAL IV ONE ×2 (12:14→20:37)
[2019-09-23] MEDS ORDERED: DEXTROSE 50% SYRINGE 50 ML IVP STA (12:14)
[2019-09-23] MEDS ORDERED: SODIUM POLYSTYRENE SULFONATE 15 GM/60 ML BOTTLE PO ONE (12:15)
[2019-09-23] MEDS ORDERED: FUROSEMIDE 10 MG/ML 4 ML VIAL IV STA (12:15)
--- NOTE | 2019-09-23 12:15 | CT ---
EXAMINATION TYPE: CT angio head neck DATE OF EXAM: 09/23/2019 HISTORY: CVA, CODE STROKE COMPARISON: Previous CT scan of the brain dated earlier today. CT DLP: 342.2 mGycm. Automated Exposure Control for Dose Reduction was Utilized. TECHNIQUE: CTA scan of the neck is performed without and with IV Contrast, patient injected with 65 ml mL of Isovue 370, axial images are obtained, coronal and sagittal reformatted images are reviewed. Three-D reconstructed images are created on an independent workstation and reviewed. FINDINGS: There is minimal bullous change in the right upper lobe. Visualized portions of the lungs a re otherwise clear. There is a small right pleural effusion. The heart is enlarged. The normal cervical lordosis is replaced by a moderate kyphosis. Alignment is maintained. Atlantoaxia l relationships are normal. There is fluid in the mastoid air cells bilaterally suggesting acute mastoiditis, worse on the left t palomo the right. There is moderate atheromatous calcification of the visualized arterial tree including the carotid bi furcations. There is a normal origin of the great vessels. The left vertebral artery is dominant. There is modera te atheromatous calcification in the carotid bulbs bilaterally. There is a 64% by diameter stenosis o f the proximal right ICA. There is a 61% by diameter stenosis involving the proximal left ICA. There is mild dolichoectasia of the vertebrobasilar system. 2 axial images are grainy were not obtain ed. The posterior circulation is unremarkable. There are 2 anterior cerebral arteries. There is johnnie l branching of the MCAs bilaterally. No sizable aneurysm is seen. IMPRESSION: 1. SUBOPTIMAL EXAMINATION DUE TO THE INABILITY TO POSITION THE PATIENT CORRECTLY WITHIN THE GANTRY. 2. 64% BY DIAMETER STENOSIS OF THE PROXIMAL RIGHT ICA. 3. 61% BY DIAMETER STENOSIS OF THE PROXIMAL LEFT ICA. 4. NORMAL MRA OF THE [place].
[2019-09-23] MEDS ORDERED: ASPIRIN 81 MG PO STA (12:19)
[2019-09-23] MEDS ORDERED: ACETAMINOPHEN TAB 325 MG TAB PO PRN (12:41)
[2019-09-23] MEDS ORDERED: NALOXONE 0.4 MG/ML 1 ML VIAL IV PRN (12:41)
[2019-09-23 14:33] LABS: Glucose,Whole Blood 323 mg/dL (75-99)
[2019-09-23 20:03] LABS: Glucose,Whole Blood 510 mg/dL (75-99)
[2019-09-23] MEDS ORDERED: INSULIN REGULAR 100 UNIT/ML VIAL SQ ONE (20:37)
[2019-09-23] MEDS: SODIUM CHLORIDE 0.9% 1,000 ML IV SCH (20:49)
[2019-09-23] MEDS ORDERED: NITROGLYCERIN SL TABS 0.4 MG TAB SUBLINGUAL PRN (20:54)
[2019-09-23] MEDS ORDERED: DIPHENOX-ATROP 2.5-0.025 MG 1 EACH TAB PO PRN (20:54)
[2019-09-23] MEDS ORDERED: ALPRAZolam 0.25 MG TAB PO PRN (20:56)
[2019-09-23] MEDS ORDERED: HYDROmorphone 0.5 MG/0.5 ML SYRINGE IVP PRN (20:56)
[2019-09-23 21:47] LABS: Glucose,Whole Blood 311 mg/dL (75-99)
[2019-09-23] MEDS: FAMOTIDINE 20 MG TAB PO SCH (22:33)
[2019-09-23] MEDS: VARENICLINE 1 MG TAB PO SCH (22:33)
[2019-09-23] MEDS: METOPROLOL SUCCINATE (ER) 25 MG TAB.ER.24H PO SCH (22:33)
[2019-09-23] MEDS: PREGABALIN 75 MG CAP PO SCH (22:33)
[2019-09-23] MEDS: SACUBITRIL/VALSARTAN 24 MG-26 MG TABLET PO SCH (22:33)
[2019-09-23] MEDS: ATORVASTATIN 40 MG TAB PO SCH (22:34)
[2019-09-23] MEDS: HEPARIN SODIUM,PORCINE 5,000 UNIT/ML 1 ML VIAL SQ SCH (22:34)
[2019-09-24 00:37] LABS: Glucose,Whole Blood 188 mg/dL (75-99)
[2019-09-24] MEDS: LIPASE 5,000/PROTEASE 17,000/AMYLASE 24,000 PO SCH ×4 (00:37→19:54)
[2019-09-24 06:04] LABS: Glucose,Whole Blood 69 mg/dL (75-99)
[2019-09-24 06:24] LABS: Glucose,Whole Blood 68 mg/dL (75-99)
[2019-09-24 06:24] LABS: Glucose,Whole Blood 71 mg/dL (75-99)
[2019-09-24 06:48] LABS: Calcium 8.7 mg/dL (8.4-10.2); Potassium 4.8 mmol/L (3.5-5.1)
[2019-09-24 06:51] LABS: Basophils # (A) 0.1 k/uL (0-0.2); Basophils % (A) 1 %; Eosinophils # (A) 0.6 k/uL (0-0.7); Eosinophils % (A) 9 %; HCT 42.3 % (39.0-53.0); HGB 13.3 gm/dL (13.0-17.5); Hypochromasia Slight; Lymphocytes # (A) 2.4 k/uL (1.0-4.8); Lymphocytes % (A) 37 %; MCH 29.4 pg (25.0-35.0); MCHC 31.4 g/dL (31.0-37.0); MCV 93.7 fL (80.0-100.0); Mean Platelet Volume 8.8; Monocytes # (A) 0.6 k/uL (0-1.0); Monocytes % (A) 9 %; Neutrophils # (A) 2.7 k/uL (1.3-7.7); Neutrophils % (A) 41 %; Platelet Count 153 k/uL (150-450); RBC 4.51 m/uL (4.30-5.90); RDW 15.1 % (11.5-15.5); WBC 6.5 k/uL (3.8-10.6)
--- NOTE | 2019-09-24 07:29 | HP ---
HISTORY AND PHYSICAL DATE OF SERVICE: 09/23/2019 I am covering for Dr. Lnid. CHIEF COMPLAINTS: Unsteadiness of gait. HISTORY OF PRESENT ILLNESS: This 58-year-old gentleman with a past medical history of multiple medical problems including history of CHF, COPD, history of diabetes, GERD, hypertension, hyperlipidemia, being followed by Dr. Lind in the outpatient setting woke up today and patient had unsteady gait. Patient was bumping into things and tripping over. The patient came to [facility] and admitted for further and evaluation and treatment. The patient was evaluated for stroke. Apparently, stroke code was called and CT brain was done which showed only marked suboptimal exam and a CT angio showed some stenosis of the proximal right and left RCA about 61% to 64% even though suboptimal. Patient will be closely monitored. Neurology has been consulted. There is no history of fever, rigors. No history of headache, loss of consciousness. After admission, the sugars also been elevated up to 344 and more than 500 currently. PAST MEDICAL HISTORY: History of CHF, COPD, CVA, TIA, diabetes mellitus, hypertension, hyperlipidemia, history of DJD. MEDICATIONS: Medications prior to admission, the home medications which are reviewed include: 1. Oxycodone. 2. Chantix. 3. Entresto. 4. Lyrica. 5. Nitrostat. 6. Nitro-Dur. 7. Toprol-XL. 8. Creon. 9. Combivent. 10.Lantus. 11.[place]. 12.Lasix. 13.Pepcid. 14.Lomotil. 15.Lipitor. 16.Aspirin. ALLERGIES: MEPERIDINE, IBUPROFEN, MAYONNAISE. FAMILY HISTORY: History of CHF, COPD, diabetes mellitus type 2. SOCIAL HISTORY: History of smoking. No history of alcohol intake. REVIEW OF SYSTEMS: ENT: No diminished hearing or diminished vision. CARDIOVASCULAR SYSTEM: No angina. RESPIRATORY SYSTEM: No cough. GI: As mentioned earlier. : No dysuria. NERVOUS SYSTEM: As mentioned earlier. ALLERGY/IMMUNOLOGY: No asthma. MUSCULOSKELETAL: As mentioned earlier. HEMATOLOGIC: No history of anemia. ENDOCRINE: History of diabetes. CONSTITUTIONAL: As mentioned earlier. DERMATOLOGY: Negative. RHEUMATOLOGY: Negative. PSYCHIATRY: As mentioned earlier. PHYSICAL EXAMINATION: The patient is alert and oriented x3. Pulse is 70. Blood pressure is 108/67, respirations 16, temperature normal, pulse ox 96% on 4 L. HEENT: Conjunctivae normal. Oral mucosa moist. NECK: No jugular venous distention. CARDIOVASCULAR: S1, S2 muffled. RESPIRATORY: Breath sounds diminished at the bases. No rhonchi, no crackles. ABDOMEN: Soft, nontender. No mass palpable. LEGS: No edema, no swelling. NERVOUS SYSTEM: Higher function as mentioned earlier. Cranial nerves grossly intact. No nystagmus. Otherwise mild finger-nose incoordination. Gait unsteady. No focal motor deficits. Some mild emaciation present. LYMPHATICS: No lymphadenopathy of the neck, axillae or groin. SKIN: No ulcer, rash or bleeding. JOINTS: No active deforming arthropathy. LABS: CBC within normal limits. Sodium 128, potassium 5.8, creatinine is 1.83. Baseline creatinine is noted. AST, ALT noted. Troponin 0.041. ASSESSMENT: 1. Unsteadiness of gait, possibly acute cerebrovascular accident and stroke. 2. Hyponatremia. 3. Possible bilateral carotid artery stenosis. 4. Hyperkalemia. 5. Chronic kidney disease, stage 3. 6. Diabetes mellitus type 2 uncontrolled with hyperglycemia. 7. Increased AST, ALT. 8. Troponin 0.041 indeterminate. 9. Severe protein calorie malnutrition with body mass index of 16.8. 10.Thrombocytopenia. 11.History of congestive heart failure. 12.History of chronic obstructive pulmonary disease. 13.Cerebrovascular accident, transient ischemic attack. 14.Gastroesophageal reflux disease. 15.Hypertension. 16.Hyperlipidemia. 17.History of degenerative joint disease. 18.History of chronic hypoxic respiratory failure on 4 L nasal cannula. 19.Continued ongoing nicotine dependence. 20.Nonischemic cardiomyopathy. 21.History of automated implantable cardioverter-defibrillator. 22.History of transient ischemic attack. 23.History of pancreatic pseudocyst. 24.History of peripheral neuropathy. 25.History of hard of hearing. RECOMMENDATIONS AND DISCUSSION: In this 58-year-old gentleman who presented with multiple complex medical issues, we will monitor the patient closely. Continue the current medications. Continue symptomatic treatment. Resume the home medications. Recommend insulin 10 units now IV and 10 units subcu and monitor closely. If the sugars are not coming down, I would recommend insulin drip. Otherwise neurology consultation, complete neurovascular workup. Otherwise resume the home medications. See orders for further details. Prognosis guarded. Discussed with the patient. Smoking cessation has been advised. A copy of dictation forwarded to Dr. Lind who is the primary physician. CHIARA / OLIVIERN: [id number] /
[2019-09-24] MEDS ORDERED: PANTOPRAZOLE 40 MG TABLET PO SCH (07:30)
--- NOTE | 2019-09-24 08:00 | US ---
EXAMINATION TYPE: US carotid duplex BILAT DATE OF EXAM: 09/24/2019 COMPARISON: CTA 09/23/2019 CLINICAL HISTORY: 58-year-old male stroke. TECHNIQUE: Carotid duplex ultrasound examination. Indirect Doppler criteria is utilized. FINDINGS: EXAM MEASUREMENTS: RIGHT: Peak Systolic Velocity (PSV) cm/sec ----- Right CCA: 60.9 ----- Right ICA: 216.3 ----- Right ECA: 67.7 ICA/CCA ratio: 3.5 RIGHT: End Diastole cm/sec ----- Right CCA: 11.5 ----- Right ICA: 61.1 ----- Right ECA: 67.7 LEFT: Peak Systolic Velocity (PSV) cm/sec ----- Left CCA: 88.7 ----- Left ICA: 145.6 ----- Left ECA: 108.2 ICA/CCA ratio: 1.6 LEFT: End Diastole cm/sec ----- Left CCA: 24.1 ----- Left ICA: 45.1 ----- Left ECA: 13.6 VERTEBRALS (direction of flow): Right Vertebral: Antegrade Left Vertebral: Antegrade Rhythm: Arrhythmia Unit Aide notes: Severe amount of plaque visualized bilaterally, left greater than right. Elevated velocities visualized in right ICA, left ICA. Elevated right ICA/CCA ratio IMPRESSION: 1. Extensive atherosclerotic change of the carotid bifurcations. Measurements suggest a moderate (50- 69%) right ICA stenosis. 2. Measurements also suggest a lesser degree of moderate left ICA stenosis. Criteria for Assigning % of Stenosis / Diameter reduction (Estimation based on the indirect measurements of the internal carotid artery velocities (ICA PSV). 1. Normal (no stenosis)=ICA PSV < 125 cm/s: ratio < 2.0: ICA EDV<40 cm/s. 2. Less than 50% stenosis=ICA PSV < 125 cm/s: ratio < 2.0: ICA EDV<40 cm/s. 3. 50 to 69% stenosis=ICA PSV of 125 to 230 cm/s: ration 2.0 ? 4.0: ICA EDV 40-100 cm/s. 4. Greater than 70% stenosis to near occlusion= ICA PSV > 230 cm/s: ratio > 4.0: ICA EDV > 100 cm/s. 5. Near occlusion= ICA PSV velocities may be low or undetectable: variable ratio and ICA EDV. 6. Total occlusion=unable to detect flow.
--- NOTE | 2019-09-24 08:04 | P.PN ---
Subjective Progress Note Date: 09/24/19 Principal diagnosis: The patient is here essentially because of ataxia. He states he is able to catch himself before he falls but is having more frequent episodes of this. Element of hypoglycemia. He has poor blood sugar control in general. Cognitive issues regarding diabetes control have been prevalent throughout his life. Otherwise, he states no voiding difficulties. Appetite is nominal. Element of hypoglycemia on admission. No fever or chills. No sniffing nausea or vomiting. No overt chest pain. No shortness of breath. History of chronic pancreatitis is noted. Objective - Vital Signs Vital signs: Vital Signs Temp 97.9 F 09/24/19 04:00 Pulse 77 09/24/19 04:00 Resp 20 09/24/19 04:00 BP 98/57 09/24/19 04:00 Pulse Ox 97 09/24/19 04:00 Intake & Output 09/23/19 09/24/19 09/24/19 18:59 06:59 18:59 Output Total 360 Balance -360 Weight 51.71 kg 54 kg Output: Urine 360 Other: # Voids 2 - Constitutional General appearance: Present: thin - EENT Eyes: Absent: abnormal pupil - Respiratory Respiratory: bilateral: CTA - Cardiovascular Rhythm: regular Heart sounds: normal: S1, S2 Abnormal Heart Sounds: Absent: S3 Gallop - Gastrointestinal General gastrointestinal: Present: soft - Neurologic Neurologic: Present: CNII-XII intact - Musculoskeletal Musculoskeletal: Present: generalized weakness - Psychiatric Psychiatric: Present: A&O x's 3 - Labs CBC & Chem 7: 09/24/19 05:27 09/24/19 05:27 Labs: Abnormal Lab Results - Last 24 Hours (Table) 09/23/19 09/23/19 09/23/19 Range/Units 11:22 11:22 11:22 Plt Count 143 L (150-450) k/uL Sodium 128 L (137-145) mmol/L Potassium 5.8 H (3.5-5.1) mmol/L Chloride 94 L (98-107) mmol/L BUN 37 H (9-20) mg/dL Creatinine 1.83 H (0.66-1.25) mg/dL Glucose 345 H (74-99) mg/dL POC Glucose (mg/dL) (75-99) mg/dL AST 68 H (17-59) U/L ALT 78 H (4-49) U/L Alkaline Phosphatase 615 H (38-126) U/L Troponin I 0.041 H* (0.000-0.034) ng/mL 09/23/19 09/23/19 09/23/19 Range/Units 14:31 20:01 21:45 Plt Count (150-450) k/uL Sodium (137-145) mmol/L Potassium (3.5-5.1) mmol/L Chloride (98-107) mmol/L BUN (9-20) mg/dL Creatinine (0.66-1.25) mg/dL Glucose (74-99) mg/dL POC Glucose (mg/dL) 323 H 510 H 311 H (75-99) mg/dL AST (17-59) U/L ALT (4-49) U/L Alkaline Phosphatase (38-126) U/L Troponin I (0.000-0.034) ng/mL 09/24/19 09/24/19 09/24/19 Range/Units 00:36 05:27 06:02 Plt Count (150-450) k/uL Sodium 131 L (137-145) mmol/L Potassium (3.5-5.1) mmol/L Chloride (98-107) mmol/L BUN 37 H (9-20) mg/dL Creatinine 1.52 H (0.66-1.25) mg/dL Glucose 47 L* (74-99) mg/dL POC Glucose (mg/dL) 188 H 69 L (75-99) mg/dL AST (17-59) U/L ALT (4-49) U/L Alkaline Phosphatase (38-126) U/L Troponin I (0.000-0.034) ng/mL 09/24/19 09/24/19 Range/Units 06:21 06:22 Plt Count (150-450) k/uL Sodium (137-145) mmol/L Potassium (3.5-5.1) mmol/L Chloride (98-107) mmol/L BUN (9-20) mg/dL Creatinine (0.66-1.25) mg/dL Glucose (74-99) mg/dL POC Glucose (mg/dL) 68 L 71 L (75-99) mg/dL AST (17-59) U/L ALT (4-49) U/L Alkaline Phosphatase (38-126) U/L Troponin I (0.000-0.034) ng/mL Assessment and Plan (1) Hypoglycemia Current Visit: Yes Status: Acute Code(s): E16.2 - HYPOGLYCEMIA, UNSPECIFIED SNOMED Code(s): 373665766 (2) Ataxia Current Visit: Yes Status: Acute Code(s): R27.0 - ATAXIA, UNSPECIFIED SNOMED Code(s): 83722569 (3) Electrolyte abnormality Current Visit: Yes Status: Acute Code(s): E87.8 - OTH DISORDERS OF ELECTROLYTE AND FLUID BALANCE, NEC SNOMED Code(s): 228999989 (4) Diabetes Current Visit: No Status: Acute Code(s): E11.9 - TYPE 2 DIABETES MELLITUS WITHOUT COMPLICATIONS SNOMED Code(s): 78839806 (5) NICM (nonischemic cardiomyopathy) Current Visit: No Status: Acute Code(s): I42.9 - CARDIOMYOPATHY, UNSPECIFIED SNOMED Code(s): 31767044 Plan: I suspect element of ataxia could also be related to labile blood sugar. He has poor conceptional understanding of his disease and has difficulty controlling. Check CBC and CMP in a.m. Appreciate neurology input today. Unfortunate, CT angiography is been not nominal related to poor positioning. Changes on his carotid Doppler are chronic. He has element of chronic pancreatitis. See orders otherwise. Time with Patient: Greater than 30
[2019-09-24] MEDS: IPRATROPIUM-ALBUTEROL 3 ML NEB INHALATION SCH ×3 (08:19→20:54)
[2019-09-24] MEDS: METOPROLOL SUCCINATE (ER) 25 MG TAB.ER.24H PO SCH ×2 (10:11→19:53)
[2019-09-24] MEDS: VARENICLINE 1 MG TAB PO SCH ×2 (10:11→19:54)
[2019-09-24] MEDS: FUROSEMIDE 40 MG TAB PO SCH (10:11)
[2019-09-24] MEDS: PREGABALIN 75 MG CAP PO SCH ×2 (10:11→19:52)
[2019-09-24] MEDS: SACUBITRIL/VALSARTAN 24 MG-26 MG TABLET PO SCH ×2 (10:11→19:54)
[2019-09-24] MEDS: HEPARIN SODIUM,PORCINE 5,000 UNIT/ML 1 ML VIAL SQ SCH ×2 (10:12→19:54)
[2019-09-24] MEDS: INSULIN DETEMIR (LEVEMIR) 100 UNIT/ML SYR SQ SCH (10:12)
[2019-09-24] MEDS: FAMOTIDINE 20 MG TAB PO SCH (10:12)
[2019-09-24] MEDS: ASPIRIN 81 MG PO SCH (10:12)
[2019-09-24] MEDS: oxyCODONE-APAP 10-325MG 1 EACH TAB PO PRN ×2 (10:13→20:02)
[2019-09-24 12:28] LABS: Glucose,Whole Blood 361 mg/dL (75-99)
[2019-09-24] MEDS: SODIUM CHLORIDE 0.9% 1,000 ML IV SCH ×2 (12:45→16:55)
--- NOTE | 2019-09-24 12:46 | ECHOF ---
Referral Reason:Stroke MEASUREMENTS -------- HEIGHT: 175.3 cm WEIGHT: 54.0 kg BP: RVIDd: 4.0 cm (< 3.3) IVSd: 1.1 cm (0.6 - 1.1) LVIDd: 5.9 cm (3.9 - 5.3) LVPWd: 1.2 cm (0.6 - 1.1) IVSs: 1.2 cm LVIDs: 5.1 cm LVPWs: 1.6 cm LA Diam: 4.3 cm (2.7 - 3.8) LAESV Index (A-L): 47.30 ml/m Ao Diam: 3.4 cm (2.0 - 3.7) AV Cusp: 1.8 cm (1.5 - 2.6) LA Diam: 4.7 cm (2.7 - 3.8) MV EXCURSION: 20.477 mm (> 18.000) MV EF SLOPE: 90 mm/s (70 - 150) EPSS: 1.5 cm MV E Niraj: 0.55 m/s MV DecT: 189 ms MV A Niraj: 1.02 m/s MV E/A Ratio: 0.54 RAP: 5.00 mmHg RVSP: 8.23 mmHg FINDINGS -------- Paced rhythm. This was a technically good study. The left ventricular size is normal. Left ventricular wall thickness is normal. There is moderate global hypokinesis of LV . Overall left ventricular systolic function is severely impaired with, a n EF between 25 - 30 %. The right ventricle is mild to moderately enlarged. The left atrium is markedly dilated. The right atrial size is normal. The aortic valve is trileaflet, and appears structurally normal. No aortic stenosis or regurgitation. The mitral valve leaflets are mildly thickened. Moderate mitral regurgitation is present. Mild tricuspid regurgitation present. Right ventricular systolic pressure is normal at < 35 mmHg. There is no pulmonic regurgitation present. The aortic root size is normal. There is no pericardial effusion. CONCLUSIONS -------- 1. Paced rhythm. 2. This was a technically good study. 3. The left ventricular size is normal. 4. Left ventricular wall thickness is normal. 5. There is moderate global hypokinesis of LV . 6. Overall left ventricular systolic function is severely impaired with, an EF between 25 - 30 %. 7. The right ventricle is mild to moderately enlarged. 8. The left atrium is markedly dilated. 9. The right atrial size is normal. 10. The aortic valve is trileaflet, and appears structurally normal. No aortic stenosis or regurgitat ion. 11. The mitral valve leaflets are mildly thickened. 12. Moderate mitral regurgitation is present. 13. Mild tricuspid regurgitation present. 14. Right ventricular systolic pressure is normal at < 35 mmHg. 15. There is no pulmonic regurgitation present. 16. The aortic root size is normal. 17. There is no pericardial effusion. PLANT OPERATOR HELPER: Alison Covington RDCS
[2019-09-24 14:03] VITALS: BMI 17.6
[2019-09-24 16:56] LABS: Glucose,Whole Blood 570 mg/dL (75-99)
[2019-09-24 16:56] LABS: Glucose,Whole Blood 548 mg/dL (75-99)
[2019-09-24] MEDS: INSULIN ASPART (NovoLOG) 100 UNIT/ML VIAL SQ SCH ×2 (17:43→20:54)
--- NOTE | 2019-09-24 19:17 | P.CNNES ---
History of Present Illness Consult date: 09/24/19 Requesting physician: Mckay Pastor Reason for Consult: Ataxia History of Present Illness: Patient is a 58-year-old male, who arrived to the hospital yesterday at 10:33 AM for possible ataxia. As per documentation in the ED report, he had mentioned that he woke up in the morning to go to the bathroom when he felt like he was tripping over his own feet. Patient states he has been losing balance going on for "a long time", but then he changes his statement states that it all started yesterday. He states he it has happened couple times before. He states that he sleeps in the couch. When he gets up, he ends up falling on the couch. He is still able to walk without any device. Patient states for the last 9 months he has very frequent feeling of toes and feet being freeze and cold most of the time. Sometimes this neuropathic symptoms extends to the legs all the way to the hips. Patient says the numbness in the feet comes and goes and sometimes he gets painful sensation in the toes and bottom of the feet. He also states that for the last few years he has been having intermittent numbness in the fingers of both hands. The symptoms in the hands started since he was diagnosed with diabetes. Patient says that he was seen by neurologist previously in [facility] who performed EMG testing, but he does not know the results. Patient's vitals on arrival was 117/75, pulse rate 48, temperature 98.3. Patient underwent CT head showed markedly suboptimal examination without axial images. No acute intracranial abnormality. Chest x-ray showed borderline cardiomegaly. EKG with sinus rhythm with occasional PVCs. Left axis deviation. CTA of head and neck was suboptimal due to inability to position the patient correctly during the procedure. 64% by diameter stenosis of the proximal right ICA. 61% by diameter stenosis of the proximal left ICA. Normal CTA of the [place]. Patient had a carotid Doppler, which revealed extensive atherosclerotic change of the carotid bifurcations. Measurements suggest a moderate 50-69% stenosis right ICA. Measurement also suggest a lesser degree of moderate left ICA stenosis. Antegrade flow in both vertebral arteries. Patient had a 2-D echo which revealed paced rhythm. The left-ventricular size is normal. Moderate global hypokinesis of left ventricle. Overall left- ventricular systolic function is severely impaired with EF between 25-30%. Left atrial size is normal. Moderate MR, mild TR. The aortic root size is normal. Patient's blood tests showed normal CBC, sodium 131 potassium 4.8, glucose was 47. It has been running low between 69-71. Patient's previous B12 was 267 on 11/02/2016. TSH normal. Patient's hemoglobin A1c was 10.0 on 02/07/2019. Review of Systems Patient complains of symptoms in the feet and hands, balance issues. Denies any headache problem with the vision horses [place] dysphagia. Denies any chest pain shortness of breath wheezing or cough. Denies any abdominal pain nausea vomiting diarrhea. Denies any significant neck or back pain. He does have chronic issue with his left shoulder probably related to rotator cuff. He has tremors. He has difficulty drinking with his left arm because of the shoulder. All other review of systems unremarkable. Past Medical History Past Medical History: Heart Failure, COPD, CVA/TIA, Diabetes Mellitus, GERD/Reflux, Hyperlipidemia, Hypertension, Osteoarthritis (OA), Pneumonia, Renal Disease Additional Past Medical History / Comment(s): Severe COPD, chronic hypoxic respiratory failure, home oxygen at 4L/NC ATC, nonishemic cardiomyopathy, AICD/pacer placement, TIA in 2018, pt denies past alcoholism, chronic pancreatitis, 3 pancreatic pseudocysts, IDDM type II, neuropathy biltaral legs/feet, chronic smoker, bilateral tinnitis occasionally, history of per forated left tympanic membranes-[place] left ear, pt states he has been treated for L arm pain with physical therapy but still having problems and has decreased ROM, chronic generalized pain, sinusitis History of Any Multi-Drug Resistant Organisms: None Reported Past Surgical History: AICD, Pacemaker Additional Past Surgical History / Comment(s): colonoscopy, "lump" removed from left side of neck. Past Anesthesia/Blood Transfusion Reactions: No Reported Reaction Type of Cardiac Device: Permanent Pacemaker, AICD Device Placement Date:: 09/2016 Past Psychological History: No Psychological Hx Reported Additional Psychological History / Comment(s): Pt resides alone. He is receiving home care thru [facility]. He has a nebulizer, home oxygen and a glucometer. He states he drives to [employer] only. Smoking Status: Current every day smoker Past Alcohol Use History: None Reported Additional Past Alcohol Use History / Comment(s): Pt started smoking in 1968. He has quit several times over the years. States he quit again a few days ago. Pt states in the past he would drink 6 beers a day but none for "a long time" Past Drug Use History: None Reported Additional Drug Use History / Comment(s): in the used cocaine. - Past Family History Father Family Medical History: Congestive Heart Failure (CHF), COPD, Diabetes Mellitus Additional Family Medical History / Comment(s): Father is . He had mrsa, asbestoes exposure/lungs Mother Family Medical History: Diabetes Mellitus, Hypertension Additional Family Medical History / Comment(s): Mother is 87yrs old. Medications and Allergies Home Medications Medication Instructions Recorded Confirmed Type HYDROcodone/APAP 10-325MG [[place] 1 tab PO Q4HR PRN #120 tab 05/18/18 09/23/19 Rx 10-325] Lipase/Protease/Amylase [Creon Dr 36,000 units PO TID 11/16/18 09/23/19 History 36,000 Units Capsule] Nitroglycerin Sl Tabs [Nitrostat] 0.4 mg SUBLINGUAL Q5M PRN 11/16/18 09/23/19 History Aspirin 81 mg PO DAILY chew 11/18/18 09/23/19 Rx Diphenoxylate HCl/Atropine 1 tab PO BID PRN 02/06/19 09/23/19 History [Lomotil 2.5-0.025 mg Tablet] Ipratropium/Albuterol Sulfate 1 puff INHALATION RT-QID 02/06/19 09/23/19 History [Combivent Respimat Inhaler] Metoprolol Succinate (ER) [Toprol 25 mg PO BID 02/06/19 09/23/19 History Xl] Atorvastatin [Lipitor] 40 mg PO HS 09/23/19 09/23/19 History Famotidine [Pepcid] 20 mg PO BID 09/23/19 09/23/19 History Furosemide [Lasix] 40 mg PO DAILY 09/23/19 09/23/19 History Insulin Glargine,Hum.rec.anlog 30 unit SQ DAILY 09/23/19 09/23/19 History [Lantus Solostar] Nitroglycerin 0.1MG/Hr Patch 1 patch TRANSDERM DAILY 09/23/19 09/23/19 History [Nitro-Dur 0.1MG/Hr Patch] Pregabalin 225 mg PO BID 09/23/19 09/23/19 History Sacubitril/Valsartan [Entresto 24 1 tab PO BID 09/23/19 09/23/19 History mg-26 mg Tablet] Varenicline [Chantix Continuing 1 mg PO BID 09/23/19 09/23/19 History Pack] oxyCODONE-APAP 10-325MG [Percocet 1 tab PO Q6HR PRN 09/23/19 09/23/19 History 10-325 mg] Allergies Allergy/AdvReac Type Severity Reaction Status Date / Time meperidine HCl [From Demerol] AdvReac Severe Rapid Verified 09/23/19 11:59 Heart Rate/VOMITING ibuprofen [From Motrin] AdvReac Vomiting Verified 09/23/19 11:59 mayonnaise AdvReac Nausea & Verified 09/23/19 11:59 Vomiting & Diarrhea Physical Examination - Vital Signs Vital Signs: Vital Signs Temp Pulse Pulse Resp BP BP Pulse Ox 09/24/19 12:00 76 19 128/57 100 09/24/19 11:32 89 09/24/19 11:23 88 09/24/19 08:36 94 09/24/19 08:20 92 09/24/19 08:00 97.8 F 83 16 139/72 97 09/24/19 04:00 97.9 F 77 20 98/57 97 09/24/19 00:00 97.7 F 67 20 135/85 92 L 09/23/19 18:44 70 16 108/67 96 Intake and Output 09/24/19 09/24/19 09/24/19 06:59 14:59 22:59 Intake Total 230 Output Total 360 Balance -360 230 Intake: Oral 230 Output: Urine 360 Other: # Voids 2 Weight 54 kg 54 kg On examination patient is a late middle aged male, in no acute distress. Patient is alert awake oriented to time place and person. Speech and language functions are normal. Attention and concentration and fund of knowledge adequate. On Cranial nerve examination, pupils are round and reactive to light, visual smith are full on confrontation, extraocular muscles are intact with no nystagmus. Face is symmetric, tongue protrudes to the midline. Palatal elevation and sensation normal. Hearing and shoulder shrug normal. On muscle strength testing there is no pronator drift and the strength is normal in arms and legs distally and proximally except left deltoid which is 5-related to probable rotator cuff issue. Reflexes are 2+ all over except ankles which are absent. Plantars are downgoing. Sensory touch is decreased distally in the hands and feet. Patient has some tremulousness test for [id number] testing. However he is significantly ataxic for [id number] testing bilaterally. Tone and bulk of muscles normal. Patient walks with slight wide base. There is no obvious bruit, S1 and S2 audible. Peripheral pulses present no edema. Abdomen soft nontender. Chest is clear. Results - Laboratory Findings CBC and BMP: 09/24/19 05:27 09/24/19 05:27 Abnormal Lab Findings: Abnormal Labs 09/23/19 09/23/19 09/23/19 11:22 11:22 11:22 Plt Count 143 L Sodium 128 L Potassium 5.8 H Chloride 94 L BUN 37 H Creatinine 1.83 H Glucose 345 H POC Glucose (mg/dL) AST 68 H ALT 78 H Alkaline Phosphatase 615 H Troponin I 0.041 H* 09/23/19 09/23/19 09/23/19 14:31 20:01 21:45 Plt Count Sodium Potassium Chloride BUN Creatinine Glucose POC Glucose (mg/dL) 323 H 510 H 311 H AST ALT Alkaline Phosphatase Troponin I 09/24/19 09/24/19 09/24/19 00:36 05:27 06:02 Plt Count Sodium 131 L Potassium Chloride BUN 37 H Creatinine 1.52 H Glucose 47 L* POC Glucose (mg/dL) 188 H 69 L AST ALT Alkaline Phosphatase Troponin I 09/24/19 09/24/19 09/24/19 06:21 06:22 12:24 Plt Count Sodium Potassium Chloride BUN Creatinine Glucose POC Glucose (mg/dL) 68 L 71 L 361 H AST ALT Alkaline Phosphatase Troponin I 09/24/19 09/24/19 16:50 16:51 Plt Count Sodium Potassium Chloride BUN Creatinine Glucose POC Glucose (mg/dL) 570 H 548 H AST ALT Alkaline Phosphatase Troponin I Assessment and Plan Assessment: * Ataxia of the bilateral lower > upper extremities. Patient does have numbness and cold sensation in the feet > hands. Patient probably has sensory ataxia, due to underlying sensory neuropathy, which is likely related to uncontrolled diabetes. Rule out other metabolic causes. No definitive evidence of CVA. * Diabetes, poorly controlled. Plan: * We will perform detailed blood tests to evaluate for various causes of possible peripheral neuropathy. Rule out B12, folate or B6 deficiency. * Suggest EMG and nerve conduction studies of upper and lower extremities to evaluate for type and severity of peripheral neuropathy. * Optimize control of diabetes.
[2019-09-24] MEDS: ATORVASTATIN 40 MG TAB PO SCH (19:53)
[2019-09-24 20:45] LABS: Glucose,Whole Blood 285 mg/dL (75-99)
[2019-09-25] MEDS: SODIUM CHLORIDE 0.9% 1,000 ML IV SCH ×2 (02:12→20:22)
[2019-09-25 02:30] LABS: Glucose,Whole Blood 62 mg/dL (75-99)
[2019-09-25 02:48] LABS: Glucose,Whole Blood 61 mg/dL (75-99)
[2019-09-25 03:11] LABS: Glucose,Whole Blood 93 mg/dL (75-99)
[2019-09-25] MEDS: IPRATROPIUM-ALBUTEROL 3 ML NEB INHALATION SCH ×4 (04:26→20:09)
[2019-09-25 06:17] LABS: Glucose,Whole Blood 231 mg/dL (75-99)
[2019-09-25] MEDS: INSULIN ASPART (NovoLOG) 100 UNIT/ML VIAL SQ SCH ×4 (06:57→21:21)
[2019-09-25 07:50] LABS: Calcium 8.4 mg/dL (8.4-10.2)
[2019-09-25 07:57] LABS: Potassium 6.3 mmol/L (3.5-5.1)
[2019-09-25] MEDS ORDERED: SODIUM POLYSTYRENE SULFONATE 15 GM/60 ML BOTTLE PO STA (08:22)
--- NOTE | 2019-09-25 08:39 | P.PN ---
Subjective Principal diagnosis: The patient is here essentially because of ataxia. He states he is able to catch himself before he falls but is having more frequent episodes of this. Element of hypoglycemia. He has poor blood sugar control in general. Cognitive issues regarding diabetes control have been prevalent throughout his life. Oth erwise, he states no voiding difficulties. Appetite is nominal. Element of hypoglycemia on admission. Potassium is elevated today. I appreciate neurology input. I do suspect that his diabetic peripheral neuropathy. Workup is pending. Objective - Vital Signs Vital signs: Vital Signs Temp 97.6 F 09/25/19 07:59 Pulse 77 09/25/19 08:24 Resp 16 09/25/19 07:59 BP 102/62 09/25/19 07:59 Pulse Ox 100 09/25/19 08:11 Intake & Output 09/24/19 09/25/19 09/25/19 18:59 06:59 18:59 Intake Total 230 Output Total 800 Balance -570 Weight 54 kg 56.8 kg Intake: Oral 230 Output: Urine 800 Other: # Voids 2 1 - Labs CBC & Chem 7: 09/24/19 05:27 09/25/19 07:08 Labs: Abnormal Lab Results - Last 24 Hours (Table) 09/24/19 09/24/19 09/24/19 Range/Units 12:24 16:50 16:51 Sodium (137-145) mmol/L Potassium (3.5-5.1) mmol/L BUN (9-20) mg/dL Creatinine (0.66-1.25) mg/dL Glucose (74-99) mg/dL POC Glucose (mg/dL) 361 H 570 H 548 H (75-99) mg/dL 09/24/19 09/25/19 09/25/19 Range/Units 20:43 02:27 02:47 Sodium (137-145) mmol/L Potassium (3.5-5.1) mmol/L BUN (9-20) mg/dL Creatinine (0.66-1.25) mg/dL Glucose (74-99) mg/dL POC Glucose (mg/dL) 285 H 62 L 61 L (75-99) mg/dL 09/25/19 09/25/19 Range/Units 06:15 07:08 Sodium 132 L (137-145) mmol/L Potassium 6.3 H* (3.5-5.1) mmol/L BUN 39 H (9-20) mg/dL Creatinine 1.68 H (0.66-1.25) mg/dL Glucose 244 H (74-99) mg/dL POC Glucose (mg/dL) 231 H (75-99) mg/dL Assessment and Plan (1) Hypoglycemia Current Visit: Yes Status: Acute Code(s): E16.2 - HYPOGLYCEMIA, UNSPECIFIED SNOMED Code(s): 134060977 (2) Ataxia Current Visit: Yes Status: Acute Code(s): R27.0 - ATAXIA, UNSPECIFIED SNOMED Code(s): 30799836 (3) Electrolyte abnormality Current Visit: Yes Status: Acute Code(s): E87.8 - OTH DISORDERS OF ELECTROLYTE AND FLUID BALANCE, NEC SNOMED Code(s): 544054201 (4) Diabetes Current Visit: No Status: Acute Code(s): E11.9 - TYPE 2 DIABETES MELLITUS WITHOUT COMPLICATIONS SNOMED Code(s): 86882856 (5) NICM (nonischemic cardiomyopathy) Current Visit: No Status: Acute Code(s): I42.9 - CARDIOMYOPATHY, UNSPECIFIED SNOMED Code(s): 64664291 Plan: I suspect element of ataxia could also be related to labile blood sugar. He has poor conceptional understanding of his disease and has difficulty controlling. Check CBC and CMP in a.m. We'll add Kayexalate today. See orders otherwise. Time with Patient: Greater than 30
[2019-09-25 08:41] LABS: HCT 39.1 % (39.0-53.0); HGB 12.3 gm/dL (13.0-17.5); Hypochromasia Moderate; MCHC 31.3 g/dL (31.0-37.0); MCV 95.7 fL (80.0-100.0); Mean Platelet Volume 9.6; Platelet Count 110 k/uL (150-450); RBC 4.09 m/uL (4.30-5.90); RDW 15.3 % (11.5-15.5); WBC 5.1 k/uL (3.8-10.6)
[2019-09-25] MEDS: ASPIRIN 81 MG PO SCH (08:46)
[2019-09-25] MEDS: FAMOTIDINE 20 MG TAB PO SCH (08:46)
[2019-09-25] MEDS: PREGABALIN 75 MG CAP PO SCH ×2 (08:46→20:24)
[2019-09-25] MEDS: FUROSEMIDE 40 MG TAB PO SCH (08:46)
[2019-09-25] MEDS: METOPROLOL SUCCINATE (ER) 25 MG TAB.ER.24H PO SCH ×2 (08:46→20:24)
[2019-09-25] MEDS: INSULIN DETEMIR (LEVEMIR) 100 UNIT/ML SYR SQ SCH (08:47)
[2019-09-25] MEDS: HEPARIN SODIUM,PORCINE 5,000 UNIT/ML 1 ML VIAL SQ SCH ×2 (08:47→20:24)
[2019-09-25] MEDS: LIPASE 5,000/PROTEASE 17,000/AMYLASE 24,000 PO SCH ×3 (08:47→20:25)
[2019-09-25] MEDS: SACUBITRIL/VALSARTAN 24 MG-26 MG TABLET PO SCH ×2 (08:48→20:25)
[2019-09-25] MEDS: VARENICLINE 1 MG TAB PO SCH ×2 (08:48→20:24)
--- NOTE | 2019-09-25 09:01 | CDI ---
Documentation Clarification Form Date: 09/25/2019 08:52:49 AM From: Gini Santo RN, CCDS Admit Date: 09/23/2019 12:42:00 PM Patient Name: Jamal Choudhury Visit Number: [id number] ATTENTION: The Clinical Documentation Specialists (CDI) and [facility] Coding Staff appreciate your assistance in clarifying documentation. Please respond to the clarification below the line at the bottom and electronically sign. The CDI & [facility] Coding staff will review the response and follow-up if needed. Please note: Queries are made part of the Legal Health Record. If you have any questions, please contact the author of this message via ITS. Dr. Yusuf Lind CHF is documented in the H&P and Neurology consult and requires further specificity. History/Risk Factors: CHF, COPD, CVA, TIA, DM, HTN, Hyperlipidemia Clinical Indicators: 09/22 1036 VS/Pulse OX: Temp 98.3, hr 48, RR 18, B/P 117/75, spo2 96% 4l NC BNP: not checked Echocardiogram Results: EF 25-30%, moderate global hypokinesis, RV dilation, moderate mitral regurg 09/22 Chest X Ray: borderline cardiomegaly Treatment: Lasix 40 mg IVP OT Lasix 40 mg PO QD Toprol XL 25 mg PO BID 09/22 1L 0.9% NS IVF Bolus In your professional opinion, can you please clarify the acuity and type of CHF if known? Systolic Heart Failure: Acute Chronic Acute on Chronic Systolic & Diastolic Heart Failure: Acute Chronic Acute on Chronic Heart Failure-This is the correct diagnosis. Unable to Determine Other, please specify (Last Revision: June 2017) MTDD
[2019-09-25] MEDS: oxyCODONE-APAP 10-325MG 1 EACH TAB PO PRN ×2 (09:47→20:24)
[2019-09-25 10:45] LABS: Eosinophils # (M) 0.56 k/uL (0-0.7); Lymphocytes # (M) 0.92 k/uL (1.0-4.8); Monocytes # (M) 0.66 k/uL (0-1.0); Neutrophils # (M) 2.96 k/uL (1.3-7.7); Neutrophils % (M) 58 %; Nucleated Red Blood Cells 0 /100 WBC (0-0); Total Cells Counted 100
[2019-09-25 11:48] LABS: Glucose,Whole Blood 330 mg/dL (75-99)
[2019-09-25 11:49] LABS: Protein, Total 5.2 g/dL (6.2-8.2)
[2019-09-25 12:29] LABS: Hemoglobin A1C 10.6 % (4.0-6.0)
--- NOTE | 2019-09-25 14:16 | P.PN ---
Subjective Progress Note Date: 09/25/19 Patient denies any new complaints. Patient is laying in the bed. He is using nebulizer. Objective - Vital Signs Vital signs: Vital Signs Temp 97.7 F 09/25/19 11:53 Pulse 74 09/25/19 13:24 Resp 16 09/25/19 11:53 BP 144/81 09/25/19 11:53 Pulse Ox 99 09/25/19 11:53 Intake & Output 09/24/19 09/25/19 09/25/19 18:59 06:59 18:59 Intake Total 230 240 Output Total 800 Balance -570 240 Weight 54 kg 56.8 kg Intake: Oral 230 240 Output: Urine 800 Other: # Voids 2 1 - Exam Deferred. - Labs CBC & Chem 7: 09/26/19 06:30 09/26/19 06:30 Labs: Abnormal Lab Results - Last 24 Hours (Table) 09/24/19 09/24/19 09/24/19 Range/Units 16:50 16:51 20:43 RBC (4.30-5.90) m/uL Hgb (13.0-17.5) gm/dL Plt Count (150-450) k/uL Lymphocytes # (Manual) (1.0-4.8) k/uL Sodium (137-145) mmol/L Potassium (3.5-5.1) mmol/L BUN (9-20) mg/dL Creatinine (0.66-1.25) mg/dL Glucose (74-99) mg/dL POC Glucose (mg/dL) 570 H 548 H 285 H (75-99) mg/dL Hemoglobin A1c (4.0-6.0) % Total Protein (PEP) (6.2-8.2) g/dL 09/25/19 09/25/19 09/25/19 Range/Units 02:27 02:47 06:15 RBC (4.30-5.90) m/uL Hgb (13.0-17.5) gm/dL Plt Count (150-450) k/uL Lymphocytes # (Manual) (1.0-4.8) k/uL Sodium (137-145) mmol/L Potassium (3.5-5.1) mmol/L BUN (9-20) mg/dL Creatinine (0.66-1.25) mg/dL Glucose (74-99) mg/dL POC Glucose (mg/dL) 62 L 61 L 231 H (75-99) mg/dL Hemoglobin A1c (4.0-6.0) % Total Protein (PEP) (6.2-8.2) g/dL 09/25/19 09/25/19 09/25/19 Range/Units 07:08 07:08 07:08 RBC (4.30-5.90) m/uL Hgb (13.0-17.5) gm/dL Plt Count (150-450) k/uL Lymphocytes # (Manual) (1.0-4.8) k/uL Sodium 132 L (137-145) mmol/L Potassium 6.3 H* (3.5-5.1) mmol/L BUN 39 H (9-20) mg/dL Creatinine 1.68 H (0.66-1.25) mg/dL Glucose 244 H (74-99) mg/dL POC Glucose (mg/dL) (75-99) mg/dL Hemoglobin A1c 10.6 H (4.0-6.0) % Total Protein (PEP) 5.2 L (6.2-8.2) g/dL 09/25/19 09/25/19 Range/Units 07:08 11:41 RBC 4.09 L (4.30-5.90) m/uL Hgb 12.3 L (13.0-17.5) gm/dL Plt Count 110 L (150-450) k/uL Lymphocytes # (Manual) 0.92 L (1.0-4.8) k/uL Sodium (137-145) mmol/L Potassium (3.5-5.1) mmol/L BUN (9-20) mg/dL Creatinine (0.66-1.25) mg/dL Glucose (74-99) mg/dL POC Glucose (mg/dL) 330 H (75-99) mg/dL Hemoglobin A1c (4.0-6.0) % Total Protein (PEP) (6.2-8.2) g/dL Assessment and Plan Assessment: * Ataxia of the bilateral lower > upper extremities. Patient does have numbness and cold sensation in the feet > hands. Patient probably has sensory ataxia, due to underlying diabetic sensory neuropathy, which is likely related to uncontrolled diabetes. Rule out other metabolic causes. No definitive evidence of CVA. * Diabetes, poorly controlled. Plan: * Patient's hemoglobin A1c 10.6, indicative of poorly controlled diabetes. Patient probably has diabetic peripheral neuropathy. Need to optimize control of diabetes. * Patient is already on Lyrica 225 mg twice a day for diabetic neuropathy, which patient states does help with neuropathic symptoms. * TSH is normal 0.515. Sjogren's antibodies negative, RPR negative. B12 328, folate 16.8, other blood test is pending. The rest of the blood test results can be followed up as an outpatient, by outside neurologist. * Suggest EMG and nerve conduction studies of upper and lower extremities to evaluate for type and severity of peripheral neuropathy.
[2019-09-25 17:00] LABS: Glucose,Whole Blood 153 mg/dL (75-99)
[2019-09-25 18:53] LABS: Folate, Serum 16.8 ng/mL
[2019-09-25] MEDS: NICOTINE 14MG/24HR PATCH TRANSDERM SCH (20:24)
[2019-09-25] MEDS: ATORVASTATIN 40 MG TAB PO SCH (20:25)
[2019-09-25 21:12] LABS: Glucose,Whole Blood 141 mg/dL (75-99)
[2019-09-26] MEDS: IPRATROPIUM-ALBUTEROL 3 ML NEB INHALATION SCH ×4 (02:05→19:05)
[2019-09-26 02:06] LABS: Glucose,Whole Blood 290 mg/dL (75-99)
[2019-09-26] MEDS: SODIUM CHLORIDE 0.9% 1,000 ML IV SCH ×2 (04:15→20:40)
[2019-09-26 06:25] LABS: Glucose,Whole Blood 309 mg/dL (75-99)
[2019-09-26] MEDS: INSULIN ASPART (NovoLOG) 100 UNIT/ML VIAL SQ SCH ×4 (06:36→21:39)
[2019-09-26 07:18] LABS: Calcium 8.4 mg/dL (8.4-10.2); Potassium 5.8 mmol/L (3.5-5.1)
[2019-09-26 07:53] LABS: Basophils % (A) 1 %; Eosinophils # (A) 0.4 k/uL (0-0.7); Eosinophils % (A) 8 %; HCT 36.3 % (39.0-53.0); HGB 11.5 gm/dL (13.0-17.5); Hypochromasia Moderate; Lymphocytes # (A) 1.2 k/uL (1.0-4.8); Lymphocytes % (A) 26 %; MCH 30.1 pg (25.0-35.0); MCHC 31.8 g/dL (31.0-37.0); MCV 94.8 fL (80.0-100.0); Mean Platelet Volume 9.2; Monocytes # (A) 0.4 k/uL (0-1.0); Monocytes % (A) 8 %; Neutrophils # (A) 2.6 k/uL (1.3-7.7); Neutrophils % (A) 55 %; Platelet Count 111 k/uL (150-450); RBC 3.82 m/uL (4.30-5.90); RDW 15.4 % (11.5-15.5); WBC 4.7 k/uL (3.8-10.6)
[2019-09-26] MEDS: ASPIRIN 81 MG PO SCH (08:32)
[2019-09-26] MEDS: FAMOTIDINE 20 MG TAB PO SCH (08:32)
[2019-09-26] MEDS: METOPROLOL SUCCINATE (ER) 25 MG TAB.ER.24H PO SCH ×2 (08:32→20:36)
[2019-09-26] MEDS: PREGABALIN 75 MG CAP PO SCH ×2 (08:32→20:35)
[2019-09-26] MEDS: FUROSEMIDE 40 MG TAB PO SCH (08:32)
[2019-09-26] MEDS: INSULIN DETEMIR (LEVEMIR) 100 UNIT/ML SYR SQ SCH (08:32)
[2019-09-26] MEDS: NICOTINE 14MG/24HR PATCH TRANSDERM SCH (08:32)
[2019-09-26] MEDS: HEPARIN SODIUM,PORCINE 5,000 UNIT/ML 1 ML VIAL SQ SCH ×2 (08:32→20:36)
[2019-09-26] MEDS: LIPASE 5,000/PROTEASE 17,000/AMYLASE 24,000 PO SCH ×3 (08:33→20:37)
[2019-09-26] MEDS: SACUBITRIL/VALSARTAN 24 MG-26 MG TABLET PO SCH ×2 (08:34→20:36)
[2019-09-26] MEDS: VARENICLINE 1 MG TAB PO SCH ×2 (08:34→20:37)
[2019-09-26] MEDS: oxyCODONE-APAP 10-325MG 1 EACH TAB PO PRN ×3 (08:44→22:53)
[2019-09-26] MEDS ORDERED: SODIUM POLYSTYRENE SULFONATE 15 GM/60 ML BOTTLE PO STA (08:47)
--- NOTE | 2019-09-26 08:47 | P.PN ---
Subjective Principal diagnosis: The patient is here essentially because of ataxia. He states he is able to catch himself before he falls but is having more frequent episodes of this. Element of hypoglycemia. He has poor blood sugar control in general. Cognitive issues regarding diabetes control have been prevalent throughout his life. Oth erwise, he states no voiding difficulties. Appetite is nominal. Element of hypoglycemia on admission. Potassium is elevated today. I appreciate neurology input. I do suspect that his diabetic peripheral neuropathy. Workup is pending. Objective - Vital Signs Vital signs: Vital Signs Temp 97.9 F 09/26/19 04:00 Pulse 77 09/26/19 08:00 Resp 18 09/26/19 04:00 BP 111/72 09/26/19 04:00 Pulse Ox 96 09/26/19 04:00 Intake & Output 09/25/19 09/26/19 09/26/19 18:59 06:59 18:59 Intake Total 640 480 Balance 640 480 Weight 56.4 kg Intake: Oral 640 480 Other: # Voids 3 2 - Constitutional General appearance: Present: average body habitus - EENT Eyes: Absent: abnormal pupil - Neck Neck: Absent: lymphadenopathy - Respiratory Respiratory: bilateral: CTA - Cardiovascular Rhythm: regular Heart sounds: normal: S1, S2 Abnormal Heart Sounds: Absent: S3 Gallop - Gastrointestinal General gastrointestinal: Present: soft. Absent: tenderness - Integumentary Integumentary: Absent: cellulitis - Labs CBC & Chem 7: 09/26/19 06:30 09/26/19 06:30 Labs: Abnormal Lab Results - Last 24 Hours (Table) 09/25/19 09/25/19 09/25/19 Range/Units 07:08 07:08 07:08 RBC 4.09 L (4.30-5.90) m/uL Hgb 12.3 L (13.0-17.5) gm/dL Hct (39.0-53.0) % Plt Count 110 L (150-450) k/uL Lymphocytes # (Manual) 0.92 L (1.0-4.8) k/uL Sodium (137-145) mmol/L Potassium (3.5-5.1) mmol/L BUN (9-20) mg/dL Creatinine (0.66-1.25) mg/dL Glucose (74-99) mg/dL POC Glucose (mg/dL) (75-99) mg/dL Hemoglobin A1c 10.6 H (4.0-6.0) % Total Protein (PEP) 5.2 L (6.2-8.2) g/dL 09/25/19 09/25/19 09/25/19 Range/Units 11:41 16:44 21:10 RBC (4.30-5.90) m/uL Hgb (13.0-17.5) gm/dL Hct (39.0-53.0) % Plt Count (150-450) k/uL Lymphocytes # (Manual) (1.0-4.8) k/uL Sodium (137-145) mmol/L Potassium (3.5-5.1) mmol/L BUN (9-20) mg/dL Creatinine (0.66-1.25) mg/dL Glucose (74-99) mg/dL POC Glucose (mg/dL) 330 H 153 H 141 H (75-99) mg/dL Hemoglobin A1c (4.0-6.0) % Total Protein (PEP) (6.2-8.2) g/dL 09/26/19 09/26/19 09/26/19 Range/Units 02:04 06:24 06:30 RBC 3.82 L (4.30-5.90) m/uL Hgb 11.5 L (13.0-17.5) gm/dL Hct 36.3 L (39.0-53.0) % Plt Count 111 L (150-450) k/uL Lymphocytes # (Manual) (1.0-4.8) k/uL Sodium (137-145) mmol/L Potassium (3.5-5.1) mmol/L BUN (9-20) mg/dL Creatinine (0.66-1.25) mg/dL Glucose (74-99) mg/dL POC Glucose (mg/dL) 290 H 309 H (75-99) mg/dL Hemoglobin A1c (4.0-6.0) % Total Protein (PEP) (6.2-8.2) g/dL 09/26/19 Range/Units 06:30 RBC (4.30-5.90) m/uL Hgb (13.0-17.5) gm/dL Hct (39.0-53.0) % Plt Count (150-450) k/uL Lymphocytes # (Manual) (1.0-4.8) k/uL Sodium 131 L (137-145) mmol/L Potassium 5.8 H (3.5-5.1) mmol/L BUN 36 H (9-20) mg/dL Creatinine 1.47 H (0.66-1.25) mg/dL Glucose 274 H (74-99) mg/dL POC Glucose (mg/dL) (75-99) mg/dL Hemoglobin A1c (4.0-6.0) % Total Protein (PEP) (6.2-8.2) g/dL Assessment and Plan (1) Hypoglycemia Current Visit: Yes Status: Acute Code(s): E16.2 - HYPOGLYCEMIA, UNSPECIFIED SNOMED Code(s): 669964188 (2) Ataxia Current Visit: Yes Status: Acute Code(s): R27.0 - ATAXIA, UNSPECIFIED SNOMED Code(s): 58340000 (3) Electrolyte abnormality Current Visit: Yes Status: Acute Code(s): E87.8 - OTH DISORDERS OF ELECTROLYTE AND FLUID BALANCE, NEC SNOMED Code(s): 343592507 (4) Diabetes Current Visit: No Status: Acute Code(s): E11.9 - TYPE 2 DIABETES MELLITUS WITHOUT COMPLICATIONS SNOMED Code(s): 24062249 (5) NICM (nonischemic cardiomyopathy) Current Visit: No Status: Acute Code(s): I42.9 - CARDIOMYOPATHY, UNSPECIFIED SNOMED Code(s): 31106107 Plan: I suspect element of ataxia could also be related to labile blood sugar. He has poor conceptional understanding of his disease and has difficulty controlling. Check CBC and CMP in a.m. Increase Kayexelate See orders otherwise.
[2019-09-26 12:04] LABS: Glucose,Whole Blood 196 mg/dL (75-99)
--- NOTE | 2019-09-26 12:08 | P.PN ---
Subjective Progress Note Date: 09/26/19 Patient denies any new complaints. Patient is laying in the bed. Appears slightly depressed. Objective - Vital Signs Vital signs: Vital Signs Temp 97.9 F 09/26/19 11:33 Pulse 82 09/26/19 11:33 Resp 16 09/26/19 11:33 BP 98/55 09/26/19 11:33 Pulse Ox 100 09/26/19 11:33 Intake & Output 09/25/19 09/26/19 09/26/19 18:59 06:59 18:59 Intake Total 640 830 Balance 640 830 Weight 56.4 kg Intake: Oral 640 830 Other: # Voids 3 2 2 - Exam Mental status, speech and language functions are normal. Muscle strength is normal. Still has some ataxia in the legs.peripheral pulses were not clearly felt. His feet although subjectively cold, was warm to touch. - Labs CBC & Chem 7: 09/26/19 06:30 09/26/19 06:30 Labs: Abnormal Lab Results - Last 24 Hours (Table) 09/25/19 09/25/19 09/25/19 Range/Units 07:08 16:44 21:10 RBC (4.30-5.90) m/uL Hgb (13.0-17.5) gm/dL Hct (39.0-53.0) % Plt Count (150-450) k/uL Sodium (137-145) mmol/L Potassium (3.5-5.1) mmol/L BUN (9-20) mg/dL Creatinine (0.66-1.25) mg/dL Glucose (74-99) mg/dL POC Glucose (mg/dL) 153 H 141 H (75-99) mg/dL Hemoglobin A1c 10.6 H (4.0-6.0) % 09/26/19 09/26/19 09/26/19 Range/Units 02:04 06:24 06:30 RBC 3.82 L (4.30-5.90) m/uL Hgb 11.5 L (13.0-17.5) gm/dL Hct 36.3 L (39.0-53.0) % Plt Count 111 L (150-450) k/uL Sodium (137-145) mmol/L Potassium (3.5-5.1) mmol/L BUN (9-20) mg/dL Creatinine (0.66-1.25) mg/dL Glucose (74-99) mg/dL POC Glucose (mg/dL) 290 H 309 H (75-99) mg/dL Hemoglobin A1c (4.0-6.0) % 09/26/19 09/26/19 Range/Units 06:30 11:37 RBC (4.30-5.90) m/uL Hgb (13.0-17.5) gm/dL Hct (39.0-53.0) % Plt Count (150-450) k/uL Sodium 131 L (137-145) mmol/L Potassium 5.8 H (3.5-5.1) mmol/L BUN 36 H (9-20) mg/dL Creatinine 1.47 H (0.66-1.25) mg/dL Glucose 274 H (74-99) mg/dL POC Glucose (mg/dL) 196 H (75-99) mg/dL Hemoglobin A1c (4.0-6.0) % Assessment and Plan Assessment: * Ataxia of the bilateral lower > upper extremities. Patient does have numbness and cold sensation in the feet > hands. Patient probably has sensory ataxia, due to underlying diabetic sensory neuropathy, which is likely related to uncontrolled diabetes. Rule out other metabolic causes. No definitive evidence of CVA. * Diabetes, poorly controlled. Plan: * Patient's hemoglobin A1c 10.6, indicative of poorly controlled diabetes. Patient probably has diabetic peripheral neuropathy. Need to optimize control of diabetes. * Patient is already on Lyrica 225 mg twice a day for diabetic neuropathy, which patient states does help with neuropathic symptoms. * TSH is normal 0.515. Sjogren's antibodies negative, RPR negative. B12 328 (somewhat borderline, we will start replacement), folate 16.8, other blood test is pending. The rest of the blood test results can be followed up as an outpatient, by outside neurologist. * Suggest EMG and nerve conduction studies of upper and lower extremities to evaluate for type and severity of peripheral neuropathy. * Patient complains of his feet being cold. However it is very warm to touch. Peripheral pulses were not clearly felt. Suggest checking arterial Doppler of the lower extremities also to rule out peripheral arterial disease.
[2019-09-26 16:57] LABS: Glucose,Whole Blood 123 mg/dL (75-99)
[2019-09-26] MEDS: ATORVASTATIN 40 MG TAB PO SCH (20:35)
[2019-09-26 21:17] LABS: Glucose,Whole Blood 131 mg/dL (75-99)
[2019-09-27] MEDS: IPRATROPIUM-ALBUTEROL 3 ML NEB INHALATION SCH ×3 (00:28→11:57)
[2019-09-27 02:14] LABS: Glucose,Whole Blood 71 mg/dL (75-99)
[2019-09-27 06:32] LABS: Glucose,Whole Blood 160 mg/dL (75-99)
[2019-09-27] MEDS: SODIUM CHLORIDE 0.9% 1,000 ML IV SCH (06:54)
[2019-09-27] MEDS: INSULIN ASPART (NovoLOG) 100 UNIT/ML VIAL SQ SCH ×2 (07:00→12:46)
[2019-09-27 07:52] LABS: ALT 66 U/L (4-49); AST 58 U/L (17-59); African American GFR (CKD) 67 (>60 ml/min/1.73 sqM); Albumin 3.3 g/dL (3.5-5.0); Alkaline Phosphatase 364 U/L (38-126); Amylase <30 U/L (30-110); Anion Gap 4 mmol/L; Blood Urea Nitrogen 38 mg/dL (9-20); Calcium 8.5 mg/dL (8.4-10.2); Carbon Dioxide 30 mmol/L (22-30); Chloride 101 mmol/L (98-107); Glucose 144 mg/dL (74-99); Non-African American GFR(CKD) 58 (>60 ml/min/1.73 sqM); Potassium 5.4 mmol/L (3.5-5.1); Sodium 135 mmol/L (137-145); Total Bilirubin 0.4 mg/dL (0.2-1.3); Total Protein 5.6 g/dL (6.3-8.2)
[2019-09-27] MEDS: FAMOTIDINE 20 MG TAB PO SCH (08:26)
[2019-09-27] MEDS: INSULIN DETEMIR (LEVEMIR) 100 UNIT/ML SYR SQ SCH (08:27)
[2019-09-27] MEDS: NICOTINE 14MG/24HR PATCH TRANSDERM SCH (08:27)
[2019-09-27] MEDS: ASPIRIN 81 MG PO SCH (08:27)
[2019-09-27] MEDS: HEPARIN SODIUM,PORCINE 5,000 UNIT/ML 1 ML VIAL SQ SCH (08:27)
[2019-09-27] MEDS: FUROSEMIDE 40 MG TAB PO SCH (08:27)
[2019-09-27] MEDS: PREGABALIN 75 MG CAP PO SCH (08:27)
[2019-09-27] MEDS: METOPROLOL SUCCINATE (ER) 25 MG TAB.ER.24H PO SCH (08:27)
[2019-09-27] MEDS: LIPASE 5,000/PROTEASE 17,000/AMYLASE 24,000 PO SCH (08:28)
[2019-09-27] MEDS: SACUBITRIL/VALSARTAN 24 MG-26 MG TABLET PO SCH (08:29)
[2019-09-27] MEDS: VARENICLINE 1 MG TAB PO SCH (08:29)
--- NOTE | 2019-09-27 08:33 | P.DS ---
Providers Date of admission: 09/23/19 12:42 Attending physician: Yusuf Lind Consults: 09/23/19 12:42 Consult Physician Routine Consulting Provider: Ryann Vila Consult Reason/Comments: ataxia Do you want consulting provider notified?: Yes Primary care physician: Yusuf Lind - Discharge Diagnosis(es) (1) Hypoglycemia Current Visit: Yes Status: Acute (2) Ataxia Current Visit: Yes Status: Acute (3) Electrolyte abnormality Current Visit: Yes Status: Acute (4) Diabetes Current Visit: No Status: Acute (5) NICM (nonischemic cardiomyopathy) Current Visit: No Status: Acute Hospital Course: This is a discharge summary 58-year-old white male with known nonischemic cardiac myopathy with underlying history of ataxia. Neurology is consulted and diabetic neuropathy was most likely related. He has poorly controlled diabetes. He was kept several days secondary to hyperkalemia. He will follow-up with me in 1-2 days for appropriate follow-up. He is given Kayexalate and will follow- up with me in 2-3 days. Patient Condition at Discharge: Fair Plan - Discharge Summary Discharge Rx Participant: No New Discharge Prescriptions: New Nicotine 14Mg/24Hr Patch [Habitrol] 1 patch TRANSDERM DAILY #30 patch Continue HYDROcodone/APAP 10-325MG [[place] 10-325] 1 tab PO Q4HR PRN #120 tab PRN Reason: Pain Nitroglycerin Sl Tabs [Nitrostat] 0.4 mg SUBLINGUAL Q5M PRN PRN Reason: Chest Pain Lipase/Protease/Amylase [Creon Dr 36,000 Units Capsule] 36,000 units PO TID Aspirin 81 mg PO DAILY chew Diphenoxylate HCl/Atropine [Lomotil 2.5-0.025 mg Tablet] 1 tab PO BID PRN PRN Reason: Diarrhea Metoprolol Succinate (ER) [Toprol XL] 25 mg PO BID Ipratropium/Albuterol Sulfate [Combivent Respimat Inhaler] 1 puff INHALATION RT-QID oxyCODONE-APAP 10-325MG [Percocet 10-325 mg] 1 tab PO Q6HR PRN PRN Reason: Pain Pregabalin 225 mg PO BID Nitroglycerin 0.1MG/Hr Patch [Nitro-Dur 0.1MG/Hr Patch] 1 patch TRANSDERM DAILY Insulin Glargine,Hum.rec.anlog [Lantus Solostar] 30 unit SQ DAILY Famotidine [Pepcid] 20 mg PO BID Varenicline [Chantix Continuing Pack] 1 mg PO BID Atorvastatin [Lipitor] 40 mg PO HS Sacubitril/Valsartan [Entresto 24 mg-26 mg Tablet] 1 tab PO BID Furosemide [Lasix] 40 mg PO DAILY Discharge Medication List HYDROcodone/APAP 10-325MG [[place] 10-325] 1 tab PO Q4HR PRN #120 tab 05/18/18 [Rx] Lipase/Protease/Amylase [[place] 36,000 Units Capsule] 36,000 units PO TID 11/16/18 [History] Nitroglycerin Sl Tabs [Nitrostat] 0.4 mg SUBLINGUAL Q5M PRN 11/16/18 [History] Aspirin 81 mg PO DAILY chew 11/18/18 [Rx] Diphenoxylate HCl/Atropine [Lomotil 2.5-0.025 mg Tablet] 1 tab PO BID PRN 02/06/19 [History] Ipratropium/Albuterol Sulfate [Combivent Respimat Inhaler] 1 puff INHALATION RT- QID 02/06/19 [History] Metoprolol Succinate (ER) [Toprol XL] 25 mg PO BID 02/06/19 [History] Atorvastatin [Lipitor] 40 mg PO HS 09/23/19 [History] Famotidine [Pepcid] 20 mg PO BID 09/23/19 [History] Furosemide [Lasix] 40 mg PO DAILY 09/23/19 [History] Insulin Glargine,Hum.rec.anlog [Lantus Solostar] 30 unit SQ DAILY 09/23/19 [History] Nitroglycerin 0.1MG/Hr Patch [Nitro-Dur 0.1MG/Hr Patch] 1 patch TRANSDERM DAILY 09/23/19 [History] Pregabalin 225 mg PO BID 09/23/19 [History] Sacubitril/Valsartan [Entresto 24 mg-26 mg Tablet] 1 tab PO BID 09/23/19 [ History] Varenicline [Chantix Continuing Pack] 1 mg PO BID 09/23/19 [History] oxyCODONE-APAP 10-325MG [Percocet 10-325 mg] 1 tab PO Q6HR PRN 09/23/19 [History] Nicotine 14Mg/24Hr Patch [Habitrol] 1 patch TRANSDERM DAILY #30 patch 09/27/19 [Rx] Follow up Appointment(s)/Referral(s): Yusuf Lind MD [Primary Care Provider] - 1-2 days Activity/Diet/Wound Care/Special Instructions: Patient requires a nebulizer prior to discharge for dx: copd
[2019-09-27] MEDS ORDERED: SODIUM POLYSTYRENE SULFONATE 15 GM/60 ML BOTTLE PO STA (08:35)
[2019-09-27 11:49] VITALS: BP 108/61; RESP 17; TEMP 98
[2019-09-27 12:10] VITALS: PULSE 80
[2019-09-27 12:22] LABS: Glucose,Whole Blood 207 mg/dL (75-99)
[2019-10-02 09:20] LABS: Albumin 3.44 g/dL (3.80-4.90); Gamma Globulin 0.37 g/dL (0.70-1.50)
== END 2019-09-27 13:01 | disposition home or self-care (01) | DRG 73 ==
LOC: EC 10:33 → 3SCARD 12:42
PROVIDERS: ADMIT Family Medicine; ATTEND Family Medicine
DX: E11.42 Type 2 diabetes mellitus with diabetic polyneuropathy (principal); E43 Unspecified severe protein-calorie malnutrition; I50.43 Acute on chronic combined systolic (congestive) and diastolic (congestive) heart failure; J96.11 Chronic respiratory failure with hypoxia; I13.0 Hypertensive heart and chronic kidney disease with heart failure and stage 1 through stage 4 chronic kidney disease, or unspecified chronic kidney disease; I42.8 Other cardiomyopathies; E87.1 Hypo-osmolality and hyponatremia; Z68.1 Body mass index [BMI] 19.9 or less, adult; K86.1 Other chronic pancreatitis; E11.649 Type 2 diabetes mellitus with hypoglycemia without coma; D69.6 Thrombocytopenia, unspecified; E11.22 Type 2 diabetes mellitus with diabetic chronic kidney disease; N18.3 Chronic kidney disease, stage 3 (moderate); E11.65 Type 2 diabetes mellitus with hyperglycemia; J44.9 Chronic obstructive pulmonary disease, unspecified; Z79.4 Long term (current) use of insulin; Z11.59 Encounter for screening for other viral diseases; K21.9 Gastro-esophageal reflux disease without esophagitis; I65.23 Occlusion and stenosis of bilateral carotid arteries; E78.5 Hyperlipidemia, unspecified; E86.0 Dehydration; M75.102 Unspecified rotator cuff tear or rupture of left shoulder, not specified as traumatic; M54.2 Cervicalgia; E87.5 Hyperkalemia; I49.3 Ventricular premature depolarization; G89.29 Other chronic pain; H93.13 Tinnitus, bilateral; H91.92 Unspecified hearing loss, left ear; M19.90 Unspecified osteoarthritis, unspecified site; F17.210 Nicotine dependence, cigarettes, uncomplicated; Z71.6 Tobacco abuse counseling; Z99.81 Dependence on supplemental oxygen; Z79.82 Long term (current) use of aspirin; Z79.899 Other long term (current) drug therapy; Z88.6 Allergy status to analgesic agent; Z86.73 Personal history of transient ischemic attack (TIA), and cerebral infarction without residual deficits; Z87.01 Personal history of pneumonia (recurrent); Z95.810 Presence of automatic (implantable) cardiac defibrillator; Z87.19 Personal history of other diseases of the digestive system; Z86.69 Personal history of other diseases of the nervous system and sense organs; Z88.5 Allergy status to narcotic agent; Z91.018 Allergy to other foods; Z82.49 Family history of ischemic heart disease and other diseases of the circulatory system; Z82.5 Family history of asthma and other chronic lower respiratory diseases; Z83.3 Family history of diabetes mellitus
CPT/HCPCS: 36415; 70450; 70496; 70498; 71045; 80048; 80053; 82150; 82330; 82607; 82746; 83036; 83605; 83690; 83735; 83921; 84165; 84207; 84443; 84484; 85025; 85610; 85730; 86235; 86334; 86780; 93005; 93306; 93880; 94640; 94760; 96361; 96374; 96375; 99285

== ENCOUNTER → 2019-10-26 | Outpatient (CLI) | payer MEDICARE, OTHER ==
--- NOTE | 2019-10-26 09:18 | US ---
EXAMINATION TYPE: US abdomen complete DATE OF EXAM: 10/26/2019 COMPARISON: Multiple US's and CT's CLINICAL HISTORY: R10.9 abdominal pain, K86.1 pancreatitis. EXAM MEASUREMENTS: Liver Length: 14.8 cm Gallbladder Wall: 0.3 cm CBD: 0.8 cm Spleen: 10.3 cm Right Kidney: 9.1 x 5.2 x 5.7 cm Left Kidney: 10.5 x 5.6 x 6.2 cm Technically difficult study due to extensive midline bowel gas. Patient unable to lay flat for exam, was semi upright. Pancreas: unable to visualize. There is a Complex lesion near head measuring 4.3 x 3.4 x 4.4 cm. Liver: wnl Gallbladder: layering sludge noted Evidence for sonographic Victor's sign: No CBD: measures 0.8 cm Spleen: wnl Right Kidney: limited visualization of lower pole due to bowel gas, otherwise no hydro seen. Left Kidney: No hydronephrosis or masses seen Upper IVC: wnl Abd Aorta: wnl The liver is homogenous. The intrahepatic portion of the IVC and proximal abdominal aorta are within normal limits The spleen is unremarkable. Kidneys are symmetric and free of hydronephrosis. No [place] al lesions are seen. IMPRESSION: 1. Complex mass near the head of the pancreas. CT is recommended. 2. Layering gallbladder sludge identified. 3. Mild dilatation of the common bile duct.
[2019-10-26 10:25] LABS: Cholesterol 124 mg/dL (<200); HDL Cholesterol 65 mg/dL (40-60); LDL Cholesterol,Calculated 43 mg/dL (0-99); Triglycerides 81 mg/dL (<150)
== END | disposition home or self-care (01) ==
LOC: RADUSWWP 08:31
PROVIDERS: ATTEND Internal Medicine Gastroenterology
DX: K86.89 Other specified diseases of pancreas (principal); K82.8 Other specified diseases of gallbladder; K83.8 Other specified diseases of biliary tract; E10.65 Type 1 diabetes mellitus with hyperglycemia
CPT/HCPCS: 76700; 80061; 83036

== ENCOUNTER 2020-02-02 14:26 | Inpatient (IN) | payer MEDICARE, OTHER ==
--- NOTE | 2020-02-02 14:55 | ED ---
General Adult HPI - General Chief complaint: Shortness of Breath Stated complaint: Bilateral Leg Swelling Time Seen by Provider: 02/02/20 14:52 Source: patient Mode of arrival: wheelchair Limitations: no limitations - History of Present Illness Initial comments: Patient presents the ED complaining of having bilateral lower extremity edema for the past 3 days and mild dyspnea for the past 2 days. Patient is also complaining of having epigastric pain for the past week, which she states is from his "pancreas". Patient denies having any other site of pain. Patient states that he is a smoker. Patient denies trauma or injury, fever or chills, headache, focal numbness/weakness/neuro deficit, sore throat, chest pain, cough or cold symptoms, palpitations, dizziness, back pain, nausea or vomiting, diarrhea or constipation, bloody or melanotic stool, dysuria or urinary symptoms, decreased urine output, leg or calf pain, or any other symptoms or complaints. Patient states that he is on 4 L of home O2. - Related Data Home Medications Medication Instructions Recorded Confirmed Ipratropium/Albuterol Sulfate 1 puff INHALATION RT-QID 02/06/19 02/02/20 [Combivent Respimat Inhaler] Metoprolol Succinate (ER) [Toprol 25 mg PO DAILY 02/06/19 02/02/20 XL] Famotidine [Pepcid] 20 mg PO BID PRN 09/23/19 02/02/20 Furosemide [Lasix] 40 mg PO Q48H 09/23/19 02/02/20 Nitroglycerin 0.1MG/Hr Patch 1 patch TRANSDERM DAILY PRN 09/23/19 02/02/20 [Nitro-Dur 0.1MG/Hr Patch] Atorvastatin Calcium [Lipitor] 10 mg PO HS 02/02/20 02/02/20 Insulin Degludec [Tresiba 12 units SQ DAILY 02/02/20 02/02/20 Flextouch U-100] Insulin Lispro [humaLOG Kwikpen] See Protocol SQ AC-TID MDD 70 UNITS 02/02/20 02/02/20 Isosorbide Mononitrate ER [Imdur] 30 mg PO DAILY 02/02/20 02/02/20 Nicotine 7Mg/24Hr Patch [Habitrol 1 patch TRANSDERM DAILY PRN 02/02/20 02/02/20 7Mg/24Hr Patch] Pantoprazole Sodium [Protonix] 40 mg PO DAILY PRN 02/02/20 02/02/20 Pregabalin 300 mg PO BID 02/02/20 02/02/20 Zaleplon [Sonata] 10 mg PO HS PRN 02/02/20 02/02/20 Zenpep 20,000 Iu 1 cap PO W/BRKFST 02/02/20 02/02/20 diazePAM [Valium] 2 mg PO BID PRN 02/02/20 02/02/20 Previous Rx's Medication Instructions Recorded HYDROcodone/APAP 10-325MG [[place] 1 tab PO Q4HR PRN #120 tab 05/18/18 10-325] Allergies Allergy/AdvReac Type Severity Reaction Status Date / Time meperidine HCl [From Demerol] AdvReac Severe Rapid Verified 02/02/20 14:36 Heart Rate/VOMITING ibuprofen [From Motrin] AdvReac Vomiting Verified 02/02/20 14:36 mayonnaise AdvReac Nausea & Verified 02/02/20 14:36 Vomiting & Diarrhea Review of Systems ROS Statement: Those systems with pertinent positive or pertinent negative responses have been documented in the HPI. ROS Other: All systems not noted in ROS Statement are negative. Past Medical History Past Medical History: Heart Failure, COPD, CVA/TIA, Diabetes Mellitus, GERD/Reflux, Hyperlipidemia, Hypertension, Osteoarthritis (OA), Pneumonia, Renal Disease Additional Past Medical History / Comment(s): Severe COPD, chronic hypoxic respiratory failure, home oxygen at 4L/[place] ATC, nonishemic cardiomyopathy, AICD/pacer placement, TIA in 2018, pt denies past alcoholism, chronic pancreatitis, 3 pancreatic pseudocysts, IDDM type II, neuropathy biltaral legs/feet, chronic smoker, bilateral tinnitis occasionally, history of perforated left tympanic membranes-[place] left ear, pt states he has been treated for L arm pain with physical therapy but still having problems and has decreased ROM, chronic generalized pain, sinusitis History of Any Multi-Drug Resistant Organisms: None Reported Past Surgical History: AICD, Pacemaker Additional Past Surgical History / Comment(s): colonoscopy, "lump" removed from left side of neck. Past Anesthesia/Blood Transfusion Reactions: No Reported Reaction Type of Cardiac Device: Permanent Pacemaker, AICD Device Placement Date:: 09/2016 Past Psychological History: No Psychological Hx Reported Smoking Status: Current every day smoker Past Alcohol Use History: None Reported Past Drug Use History: None Reported - Past Family History Father Family Medical History: Congestive Heart Failure (CHF), COPD, Diabetes Mellitus Additional Family Medical History / Comment(s): Father is . He had mrsa, asbestoes exposure/lungs Mother Family Medical History: Diabetes Mellitus, Hypertension Additional Family Medical History / Comment(s): Mother is 87yrs old. General Exam Limitations: no limitations General appearance: alert, in no apparent distress Head exam: Present: atraumatic, normocephalic Eye exam: Present: normal appearance, EOMI ENT exam: Present: mucous membranes moist Neck exam: Present: other (trachea is in midline) Respiratory exam: Present: other (mild bilateral expiratory wheezes). Absent: respiratory distress, rales, rhonchi, stridor Cardiovascular Exam: Present: regular rate, normal rhythm, normal heart sounds, other (normal radial pulses bilaterally) GI/Abdominal exam: Present: soft, normal bowel sounds. Absent: distended, tenderness, guarding Extremities exam: Present: other (bilateral lower extremity 2+ pitting edema; negative Homans sign bilaterally). Absent: tenderness, calf tenderness Neurological exam: Present: alert, oriented X3. Absent: motor sensory deficit Psychiatric exam: Present: normal affect, normal mood Skin exam: Present: warm, dry, intact, normal color Course Vital Signs 02/02/20 02/02/20 02/02/20 14:34 15:27 15:31 Temperature 98.1 F Pulse Rate 95 92 90 Respiratory 20 22 Rate Blood Pressure 122/72 139/71 O2 Sat by Pulse 95 97 Oximetry 02/02/20 02/02/20 16:00 17:00 Temperature 98 F Pulse Rate 88 88 Respiratory 20 26 H Rate Blood Pressure 119/69 139/71 O2 Sat by Pulse 97 96 Oximetry - Reevaluation(s) Reevaluation #1: 02/02/20 16:49 Patient denies development of any new pain or symptoms while in the ED. Patient's abdomen remains soft and nontender on examination. Patient continues to deny having any chest pain. Patient remains alert and breathing comfortably. Patient is aware of his test results, and he agrees with hospital admission at this time. 02/02/20 17:48 Case, H&P, test results and ED management were discussed with MATTHEW Neal. He accepts hospital admission on behalf of himself and Dr. Stiles. He has no further recommendations at this time. EKG Findings - EKG Comments: EKG Findings:: normal sinus rhythm, ventricular rate of 90 bpm, occasional PVCs, normal HI interval, normal QT interval, QRS widened at 124 ms, left anterior fascicular block, LVH with strain pattern, no significant change when compared to 09/23/2019 EKG Medical Decision Making - Medical Decision Making I suspect that the patient's symptoms are likely secondary to CHF. Will continue to trend the patient's troponin given his mild elevation on initial level. Patient is also noted to have acute on chronic renal insufficiency. Will admit the patient to the hospital for further evaluation and management. Dr. Stiles has accepted hospital admission. - Lab Data Result diagrams: 02/02/20 15:19 02/02/20 15:19 Lab Results 02/02/20 02/02/20 02/02/20 Range/Units 15:19 15:19 15:19 WBC 3.6 L (3.8-10.6) k/uL RBC 3.80 L (4.30-5.90) m/uL Hgb 11.6 L (13.0-17.5) gm/dL Hct 37.8 L (39.0-53.0) % MCV 99.5 (80.0-100.0) fL MCH 30.4 (25.0-35.0) pg MCHC 30.6 L (31.0-37.0) g/dL RDW 14.3 (11.5-15.5) % Plt Count 73 L (150-450) k/uL Neutrophils % (Manual) 63 % Band Neuts % (Manual) 4 % Lymphocytes % (Manual) 23 % Monocytes % (Manual) 6 % Eosinophils % (Manual) 3 % Metamyelocytes % 1 % Neutrophils # (Manual) 2.40 (1.3-7.7) k/uL Lymphocytes # (Manual) 0.83 L (1.0-4.8) k/uL Monocytes # (Manual) 0.22 (0-1.0) k/uL Eosinophils # (Manual) 0.11 (0-0.7) k/uL Metamyelocytes # (Man) 0.04 H (0) k/uL Nucleated RBCs 0 (0-0) /100 WBC Manual Slide Review Performed Hypochromasia Marked PT 11.0 (9.0-12.0) sec INR 1.1 (<1.2) APTT 29.6 (22.0-30.0) sec Sodium 127 L (137-145) mmol/L Potassium 5.2 H (3.5-5.1) mmol/L Chloride 97 L (98-107) mmol/L Carbon Dioxide 23 (22-30) mmol/L Anion Gap 7 mmol/L BUN 49 H (9-20) mg/dL Creatinine 2.59 H (0.66-1.25) mg/dL Est GFR (CKD-EPI)AfAm 30 (>60 ml/min/1.73 sqM) Est GFR (CKD-EPI)NonAf 26 (>60 ml/min/1.73 sqM) Glucose 355 H (74-99) mg/dL Calcium 7.8 L (8.4-10.2) mg/dL Total Bilirubin 0.6 (0.2-1.3) mg/dL AST 33 (17-59) U/L ALT 21 (4-49) U/L Alkaline Phosphatase 152 H (38-126) U/L Troponin I (0.000-0.034) ng/mL NT-Pro-B Natriuret Pep pg/mL Total Protein 6.1 L (6.3-8.2) g/dL Albumin 4.1 (3.5-5.0) g/dL Lipase 54 (23-300) U/L 02/02/20 02/02/20 Range/Units 15:19 15:19 WBC (3.8-10.6) k/uL RBC (4.30-5.90) m/uL Hgb (13.0-17.5) gm/dL Hct (39.0-53.0) % MCV (80.0-100.0) fL MCH (25.0-35.0) pg MCHC (31.0-37.0) g/dL RDW (11.5-15.5) % Plt Count (150-450) k/uL Neutrophils % (Manual) % Band Neuts % (Manual) % Lymphocytes % (Manual) % Monocytes % (Manual) % Eosinophils % (Manual) % Metamyelocytes % % Neutrophils # (Manual) (1.3-7.7) k/uL Lymphocytes # (Manual) (1.0-4.8) k/uL Monocytes # (Manual) (0-1.0) k/uL Eosinophils # (Manual) (0-0.7) k/uL Metamyelocytes # (Man) (0) k/uL Nucleated RBCs (0-0) /100 WBC Manual Slide Review Hypochromasia PT (9.0-12.0) sec INR (<1.2) APTT (22.0-30.0) sec Sodium (137-145) mmol/L Potassium (3.5-5.1) mmol/L Chloride (98-107) mmol/L Carbon Dioxide (22-30) mmol/L Anion Gap mmol/L BUN (9-20) mg/dL Creatinine (0.66-1.25) mg/dL Est GFR (CKD-EPI)AfAm (>60 ml/min/1.73 sqM) Est GFR (CKD-EPI)NonAf (>60 ml/min/1.73 sqM) Glucose (74-99) mg/dL Calcium (8.4-10.2) mg/dL Total Bilirubin (0.2-1.3) mg/dL AST (17-59) U/L ALT (4-49) U/L Alkaline Phosphatase (38-126) U/L Troponin I 0.065 H* (0.000-0.034) ng/mL NT-Pro-B Natriuret Pep 34712 pg/mL Total Protein (6.3-8.2) g/dL Albumin (3.5-5.0) g/dL Lipase (23-300) U/L - Radiology Data Radiology results: image reviewed (chest x-ray shows mild CHF, bilateral (left greater than right) pleural effusions, pacemaker) Disposition Clinical Impression: CHF (congestive heart failure), Wheezing, Acute on chronic renal insufficiency, Hyponatremia, Hyperglycemia, Elevated troponin, Epigastric pain Disposition: ADMITTED IP TO THIS [facility] Condition: Stable Is patient prescribed a controlled substance at d/c from ED?: No Time of Disposition: 17:18
[2020-02-02] MEDS ORDERED: IPRATROPIUM-ALBUTEROL 3 ML NEB INHALATION STA (14:59)
[2020-02-02] MEDS ORDERED: methylPREDNISolone SOD SUCCI 125 MG/2 ML VIAL IV STA (14:59)
[2020-02-02 15:37] LABS: HCT 37.8 % (39.0-53.0); HGB 11.6 gm/dL (13.0-17.5); Hypochromasia Marked; MCH 30.4 pg (25.0-35.0); MCHC 30.6 g/dL (31.0-37.0); MCV 99.5 fL (80.0-100.0); Mean Platelet Volume 10.4; RDW 14.3 % (11.5-15.5); WBC 3.6 k/uL (3.8-10.6)
[2020-02-02 15:38] LABS: Albumin 4.1 g/dL (3.5-5.0); Calcium 7.8 mg/dL (8.4-10.2); Potassium 5.2 mmol/L (3.5-5.1); Total Bilirubin 0.6 mg/dL (0.2-1.3); Total Protein 6.1 g/dL (6.3-8.2)
[2020-02-02 15:43] LABS: INR 1.1 (<1.2); Partial Thromboplastin Time 29.6 sec (22.0-30.0)
--- NOTE | 2020-02-02 16:06 | XR ---
EXAMINATION TYPE: XR chest 2V DATE OF EXAM: 02/02/2020 COMPARISON: 09/23/2019 HISTORY: Difficulty breathing TECHNIQUE: FINDINGS: Heart is enlarged. There is pulmonary vascular congestion. There is blunting of the costoph renic angles. There is left axillary pacemaker. IMPRESSION: Mild congestive heart failure with pleural effusions. Chest appears worse than last exam. Lower lobe pneumonia not excluded.
[2020-02-02] MEDS ORDERED: INSULIN REGULAR 100 UNIT/ML VIAL SQ ONE (16:12)
[2020-02-02] MEDS ORDERED: FUROSEMIDE 10 MG/ML 4 ML VIAL IV STA (16:21)
[2020-02-02] MEDS ORDERED: ASPIRIN 325 MG TAB PO STA (16:22)
[2020-02-02 16:35] LABS: Band Neutrophils % 4 %; Eosinophils # (M) 0.11 k/uL (0-0.7); Lymphocytes # (M) 0.83 k/uL (1.0-4.8); Metamyelocytes # (M) 0.04 k/uL (0); Metamyelocytes % 1 %; Monocytes # (M) 0.22 k/uL (0-1.0); Neutrophils % (M) 63 %; Nucleated Red Blood Cells 0 /100 WBC (0-0); Total Cells Counted 100
[2020-02-02 16:36] LABS: Platelet Count 73 k/uL (150-450)
[2020-02-02] MEDS ORDERED: MORPHINE SULFATE 4 MG/ML SYRINGE IVP STA (16:45)
[2020-02-02] MEDS ORDERED: PANTOPRAZOLE 40 MG TABLET PO PRN (17:16)
[2020-02-02 17:54] LABS: Glucose,Whole Blood 332 mg/dL (75-99)
[2020-02-02] MEDS: ATORVASTATIN 10 MG TAB PO SCH (21:11)
[2020-02-02] MEDS ORDERED: TEMAZEPAM 30 MG CAP PO PRN (23:08)
[2020-02-02] MEDS ORDERED: diazePAM 2 MG TAB PO PRN (23:08)
[2020-02-02] MEDS ORDERED: NICOTINE 7MG/24HR PATCH TRANSDERM PRN (23:08)
--- NOTE | 2020-02-02 23:33 | P.HPIM ---
History of Present Illness H&P Date: 02/02/20 Chief Complaint: SOB Mr. Choudhury is a 59-year-old May with a past medical history of congestive heart failure, severe COPD on home oxygen of 4 L, nonischemic cardiomyopathy status post AICD/pacemaker placement, TIA, chronic pancreatitis, pancreatic pseudocyst, type 2 diabetes mellitus, neuropathy of bilateral lower extremities, hypertension, hyperlipidemia, osteoarthritis, renal disease coming into the hospital with a chief complaint of difficulty in breathing and increased swelling in both feet. Patient also complaining of epigastric pain for the past week, associated with mild nausea. He denies having any vomiting. No diarrhea or constipation. Patient denies having any blood in his stool. Patient states that he has history of chronic pancreatitis. On review of systems patient denies having any fevers chills or rigors. No weakness of his extremities. No dysuria or hematuria. In the emergency room patient had chest x-ray showing mild congestive heart failure with pleural effusion with questionable a lower lobe pneumonia and an EKG showing sinus rhythm with occasional PVCs. Patient has been afebrile, saturating at 95% on 4 L of oxygen. On reviewing his labs hemoglobin of 11.6, platelets 73. Sodium 127, potassium 5.2, chloride 97, bicarb 23, BUN 49, creatinine 2.59. Blood sugar 300s. Troponin 0 0.065, proBNP 59993, AST 33, ALT 21. Alkaline phosphatase 152. Lipase is 54. Review of Systems REVIEW OF SYSTEMS: CONSTITUTIONAL: No fever, no malaise, no fatigue. HEENT: No recent visual problems or hearing problems. Denied any sore throat. CARDIOVASCULAR: As per HPI PULMONARY: no cough, no hemoptysis. GASTROINTESTINAL: As per HPI NEUROLOGICAL: No headaches, no weakness, no numbness. HEMATOLOGICAL: Denies any bleeding or petechiae. GENITOURINARY: Denies any burning micturition, frequency, or urgency. MUSCULOSKELETAL/RHEUMATOLOGICAL: Denies any joint pain, swelling, or any muscle pain. ENDOCRINE: Denies any polyuria or polydipsia. The rest of the 14-point review of systems is negative. Past Medical History Past Medical History: Heart Failure, COPD, CVA/TIA, Diabetes Mellitus, GERD/Reflux, Hyperlipidemia, Hypertension, Osteoarthritis (OA), Pneumonia, Renal Disease Additional Past Medical History / Comment(s): Severe COPD, chronic hypoxic respiratory failure, home oxygen at 4L/[place] ATC, nonishemic cardiomyopathy, AICD/pacer placement, TIA in 2018, pt denies past alcoholism, chronic pancreatitis, 3 pancreatic pseudocysts, IDDM type II, neuropathy biltaral legs/feet, chronic smoker, bilateral tinnitis occasionally, history of perforated left tympanic membranes-[place] left ear, pt states he has been treated for L arm pain with physical therapy but still having problems and has decreased ROM, chronic generalized pain, sinusitis History of Any Multi-Drug Resistant Organisms: None Reported Past Surgical History: AICD, Pacemaker Additional Past Surgical History / Comment(s): colonoscopy, "lump" removed from left side of neck. Past Anesthesia/Blood Transfusion Reactions: No Reported Reaction Type of Cardiac Device: Permanent Pacemaker, AICD Device Placement Date:: 09/2016 Past Psychological History: No Psychological Hx Reported Smoking Status: Current every day smoker Past Alcohol Use History: None Reported Past Drug Use History: None Reported - Past Family History Father Family Medical History: Congestive Heart Failure (CHF), COPD, Diabetes Mellitus Additional Family Medical History / Comment(s): Father is . He had mrsa, asbestoes exposure/lungs Mother Family Medical History: Diabetes Mellitus, Hypertension Additional Family Medical History / Comment(s): Mother is 87yrs old. Medications and Allergies Home Medications Medication Instructions Recorded Confirmed Type HYDROcodone/APAP 10-325MG [[place] 1 tab PO Q4HR PRN #120 tab 05/18/18 02/02/20 Rx 10-325] Ipratropium/Albuterol Sulfate 1 puff INHALATION RT-QID 02/06/19 02/02/20 History [Combivent Respimat Inhaler] Metoprolol Succinate (ER) [Toprol 25 mg PO DAILY 02/06/19 02/02/20 History XL] Famotidine [Pepcid] 20 mg PO BID PRN 09/23/19 02/02/20 History Furosemide [Lasix] 40 mg PO Q48H 09/23/19 02/02/20 History Nitroglycerin 0.1MG/Hr Patch 1 patch TRANSDERM DAILY PRN 09/23/19 02/02/20 History [Nitro-Dur 0.1MG/Hr Patch] Atorvastatin Calcium [Lipitor] 10 mg PO HS 02/02/20 02/02/20 History Insulin Degludec [Tresiba 12 units SQ DAILY 02/02/20 02/02/20 History Flextouch U-100] Insulin Lispro [humaLOG Kwikpen] See Protocol SQ AC-TID MDD 70 UNITS 02/02/20 02/02/20 History Isosorbide Mononitrate ER [Imdur] 30 mg PO DAILY 02/02/20 02/02/20 History Nicotine 7Mg/24Hr Patch [Habitrol 1 patch TRANSDERM DAILY PRN 02/02/20 02/02/20 History 7Mg/24Hr Patch] Pantoprazole Sodium [Protonix] 40 mg PO DAILY PRN 02/02/20 02/02/20 History Pregabalin 300 mg PO BID 02/02/20 02/02/20 History Zaleplon [Sonata] 10 mg PO HS PRN 02/02/20 02/02/20 History Zenpep 20,000 Iu 1 cap PO W/BRKFST 02/02/20 02/02/20 History diazePAM [Valium] 2 mg PO BID PRN 02/02/20 02/02/20 History Allergies Allergy/AdvReac Type Severity Reaction Status Date / Time meperidine HCl [From Demerol] AdvReac Severe Rapid Verified 02/02/20 14:36 Heart Rate/VOMITING ibuprofen [From Motrin] AdvReac Vomiting Verified 02/02/20 14:36 mayonnaise AdvReac Nausea & Verified 02/02/20 14:36 Vomiting & Diarrhea Physical Exam Vitals: Vital Signs Temp Pulse Resp BP Pulse Ox 02/02/20 17:00 98 F 88 26 H 139/71 96 02/02/20 16:00 88 20 119/69 97 02/02/20 15:31 90 02/02/20 15:27 92 22 139/71 97 02/02/20 14:34 98.1 F 95 20 122/72 95 Intake and Output 02/02/20 02/02/20 02/02/20 06:59 14:59 22:59 Other: Weight 58.967 kg PHYSICAL EXAMINATION: GENERAL: The patient is alert and oriented x3, not in any acute distress. Chronicall ill appearing HEENT: Pupils are round and equally reacting to light. EOMI. No scleral icterus. No conjunctival pallor. Normocephalic, atraumatic. No pharyngeal erythema. No thyromegaly. CARDIOVASCULAR: S1 and S2 present. No murmurs, rubs, or gallops. PULMONARY: Diminishe BS in all lung field. Mild crackles at the lung bases . ABDOMEN: Soft, + tenderness in epigastric donnie. , nondistended, normoactive bowel sounds. No palpable organomegaly. MUSCULOSKELETAL: No joint swelling or deformity. EXTREMITIES: Mild pedal edema. NEUROLOGICAL: Gross neurological examination did not reveal any focal deficits. SKIN: No rashes. Results CBC & Chem 7: 02/02/20 15:19 02/02/20 15:19 Labs: Abnormal Lab Results - Last 24 Hours (Table) 02/02/20 02/02/20 02/02/20 Range/Units 15:19 15: 15:19 WBC 3.6 L (3.8-10.6) k/uL RBC 3.80 L (4.30-5.90) m/uL Hgb 11.6 L (13.0-17.5) gm/dL Hct 37.8 L (39.0-53.0) % MCHC 30.6 L (31.0-37.0) g/dL Plt Count 73 L (150-450) k/uL Lymphocytes # (Manual) 0.83 L (1.0-4.8) k/uL Metamyelocytes # (Man) 0.04 H (0) k/uL Sodium 127 L (137-145) mmol/L Potassium 5.2 H (3.5-5.1) mmol/L Chloride 97 L (98-107) mmol/L BUN 49 H (9-20) mg/dL Creatinine 2.59 H (0.66-1.25) mg/dL Glucose 355 H (74-99) mg/dL POC Glucose (mg/dL) (75-99) mg/dL Calcium 7.8 L (8.4-10.2) mg/dL Alkaline Phosphatase 152 H (38-126) U/L Troponin I 0.065 H* (0.000-0.034) ng/mL Total Protein 6.1 L (6.3-8.2) g/dL 02/02/20 Range/Units 17:51 WBC (3.8-10.6) k/uL RBC (4.30-5.90) m/uL Hgb (13.0-17.5) gm/dL Hct (39.0-53.0) % MCHC (31.0-37.0) g/dL Plt Count (150-450) k/uL Lymphocytes # (Manual) (1.0-4.8) k/uL Metamyelocytes # (Man) (0) k/uL Sodium (137-145) mmol/L Potassium (3.5-5.1) mmol/L Chloride (98-107) mmol/L BUN (9-20) mg/dL Creatinine (0.66-1.25) mg/dL Glucose (74-99) mg/dL POC Glucose (mg/dL) 332 H (75-99) mg/dL Calcium (8.4-10.2) mg/dL Alkaline Phosphatase (38-126) U/L Troponin I (0.000-0.034) ng/mL Total Protein (6.3-8.2) g/dL Assessment and Plan Assessment: ASSESSMENT Shortness of breath -multifactorial Acute CHF exacerbation Acute COPD exacerbation Chronic hypoxic respiratory failure on 4 L of oxygen at home Acute kidney injury Hyperglycemia Pseudohyponatremia Hyperkalemia Elevated troponins Elevated BNP Nonischemic cardiomyopathy Chronic pancreatitis History of pancreatic pseudocysts Type 2 diabetes mellitus Bilateral peripheral neuropathy Hypertension CVA/TIA Hyperlipidemia Osteoarthritis PLAN: Patient was given a dose of Lasix, Solu-Medrol, morphine and breathing treatments in the ER and his symptoms subsided. Patient has elevated troponins, in the setting of acute kidney injury, will get serial troponins. Patient has history of chronic pancreatitis, will continue with PPI and pancreatic supplements for his epigastric pain. Cardiology consult has been obtained. Patient's home medications have been restarted. Further recommendations to follow depending on the progress of the patient.
[2020-02-03] MEDS: HYDROcodone/APAP 10-325MG 1 EACH TAB PO PRN ×2 (06:19→09:51)
[2020-02-03 06:23] LABS: Glucose,Whole Blood 368 mg/dL (75-99)
[2020-02-03] MEDS: LIPASE 5,000/PROTEASE 17,000/AMYLASE 24,000 PO SCH (06:54)
[2020-02-03] MEDS: INSULIN ASPART (NovoLOG) 100 UNIT/ML VIAL SQ SCH ×4 (06:55→23:51)
[2020-02-03] MEDS: INSULIN DETEMIR (LEVEMIR) 100 UNIT/ML SYR SQ SCH (07:10)
[2020-02-03] MEDS: ISOSORBIDE MONONITRATE ER 30 MG TAB.ER.24H PO SCH (08:04)
[2020-02-03] MEDS: METOPROLOL SUCCINATE (ER) 25 MG TAB.ER.24H PO SCH (08:04)
[2020-02-03] MEDS: PREGABALIN 100 MG CAP PO SCH ×2 (08:04→20:46)
[2020-02-03 09:22] LABS: Basophils % (A) 1 %; Eosinophils % (A) 0 %; HCT 39.1 % (39.0-53.0); Hypochromasia Marked; Lymphocytes # (A) 0.7 k/uL (1.0-4.8); Lymphocytes % (A) 21 %; MCH 30.7 pg (25.0-35.0); MCHC 30.6 g/dL (31.0-37.0); MCV 100.3 fL (80.0-100.0); Macrocytosis Slight; Mean Platelet Volume 11.4; Monocytes # (A) 0.3 k/uL (0-1.0); Monocytes % (A) 8 %; Neutrophils # (A) 2.3 k/uL (1.3-7.7); Neutrophils % (A) 69 %; RDW 14.3 % (11.5-15.5); WBC 3.3 k/uL (3.8-10.6)
[2020-02-03 09:31] LABS: Albumin 3.9 g/dL (3.5-5.0); Calcium 7.8 mg/dL (8.4-10.2); Potassium 5.5 mmol/L (3.5-5.1); Total Bilirubin 0.5 mg/dL (0.2-1.3)
[2020-02-03 09:32] LABS: Platelet Count 76 k/uL (150-450)
[2020-02-03 10:07] LABS: Poikilocytosis (M) Present
[2020-02-03] MEDS: methylPREDNISolone SOD SUCCI 40 MG/ML 1 ML VIAL IV SCH ×3 (11:30→23:51)
[2020-02-03] MEDS: FUROSEMIDE 10 MG/ML 4 ML VIAL IV SCH ×2 (11:31→20:45)
[2020-02-03] MEDS: DOXYCYCLINE 100 MG CAP PO SCH ×2 (11:31→20:59)
--- NOTE | 2020-02-03 12:06 | P.CRDCN ---
History of Present Illness Consult date: 02/03/20 History of present illness: History of present illness: This is a 59-year-old male with known history of nonischemic cardiomyopathy and prior AICD implantation, history of EtOH abuse, chronic systolic heart failure, prior TIAs, hypertension, diabetes, COPD on home O2, chronic diaphragmatic paralysis, hyperlipidemia, chronic pancreatitis, nicotine dependence. Patient presented to the hospital due to difficulty with breathing and swelling in both feet. He also had epigastric pain for a week as well as nausea. At the time of our evaluation, patient complains that he came in because his hands were not working right. He denies having any chest pain or s hortness of breath. Chest x-ray reveals mild congestive heart failure with pleural effusions. Chest appears worse than last exam. Lower lobe pneumonia not excluded. Troponin 0.065, 0.058, 0.047. Creatinine 3.02, sodium 127, potassium 5.5, CO2 22, chloride 96. WBC 3.3, hemoglobin 12, platelet count 76. Patient is a poor historian. Echocardiogram in August revealed EF of 25-30%, moderate mitral regurgitation, mild tricuspid regurgitation. Review Of Systems: Constitutional: No fever, no chills. No weakness, fatigue or lethargy. EENT: No headache. No dizziness. Lungs: No shortness of breath, cough, no sputum production. No wheezing. Cardiovascular: No chest pain, mild lower extremity edema. No palpitations. No paroxysmal nocturnal dyspnea. No orthopnea. No lightheadedness or dizziness. No syncopal episodes. Abdominal: No abdominal pain. No nausea, vomiting. No diarrhea. No constipation. Musculoskeletal: No myalgias. Integumentary: No wounds, no lesions. No rash or pruritus. Neurologic: No aphasia. No facial droop. Physical examination: Gen: This is a 59-year-old male. Disheveled appearance. No acute distress VS: Afebrile, heart rate 78, blood pressure 98/55, pulse ox 92% on 4 L nasal cannula. HEENT: Head is atraumatic, normocephalic. Pupils equal, round. Sclerae is anicteric. NECK: Supple. No JVD. No lymphadenopathy. No thyromegaly. LUNGS: Clear to auscultation. No wheezes or rhonchi. No intercostal retractions. HEART: Regular rate and rhythm. Systolic murmur. ABDOMEN: Soft. Bowel sounds are present. No masses. No tenderness. EXTREMITIES: No pedal edema. No calf tenderness. Dorsalis pedis +2 bilaterally NEUROLOGICAL: Patient is awake, alert and oriented x3. Cranial nerves 2 through 12 are grossly intact. Assessment: Nonischemic cardiomyopathy status post AICD Acute on chronic systolic heart failure Chronic hypoxic respiratory failure Acute kidney injury Elevated troponins most likely secondary to acute kidney injury Electrolytes abnormalities with hyponatremia, hyperkalemia Severe COPD with chronic hypoxic respiratory failure Hypertension Hyperlipidemia Prior TIAs Plan: Continue Lasix 40 mg IV every 12 hours Continue Imdur 30 mg daily, Lipitor, Toprol-XL No need to repeat echocardiogram Further recommendations to follow based upon clinical course Thank you kindly for this consultation. Nurse practitioner note has been reviewed, I agree with documented findings and plan of care. Patient was seen and examined. Past Medical History Past Medical History: Heart Failure, COPD, CVA/TIA, Diabetes Mellitus, GERD/Reflux, Hyperlipidemia, Hypertension, Osteoarthritis (OA), Pneumonia, Renal Disease Additional Past Medical History / Comment(s): Severe COPD, chronic hypoxic respiratory failure, home oxygen at 4L/[place] ATC, nonishemic cardiomyopathy, AIC D/pacer placement, TIA in 2018, pt denies past alcoholism, chronic pancreatitis, 3 pancreatic pseudocysts, IDDM type II, neuropathy biltaral legs/feet, chronic smoker, bilateral tinnitis occasionally, history of perforated left tympanic membranes-[place] left ear, pt states he has been treated for L arm pain with physical therapy but still having problems and has decreased ROM, chronic generalized pain, sinusitis History of Any Multi-Drug Resistant Organisms: None Reported Past Surgical History: AICD, Pacemaker Additional Past Surgical History / Comment(s): colonoscopy, "lump" removed from left side of neck. Past Anesthesia/Blood Transfusion Reactions: No Reported Reaction Type of Cardiac Device: Permanent Pacemaker, AICD Device Placement Date:: 09/2016 Past Psychological History: No Psychological Hx Reported Smoking Status: Current every day smoker Past Alcohol Use History: None Reported Past Drug Use History: None Reported - Past Family History Father Family Medical History: Congestive Heart Failure (CHF), COPD, Diabetes Mellitus Additional Family Medical History / Comment(s): Father is . He had mrsa, asbestoes exposure/lungs Mother Family Medical History: Diabetes Mellitus, Hypertension Additional Family Medical History / Comment(s): Mother is 87yrs old. Medications and Allergies Home Medications Medication Instructions Recorded Confirmed Type HYDROcodone/APAP 10-325MG [[place] 1 tab PO Q4HR PRN #120 tab 05/18/18 02/02/20 Rx 10-325] Ipratropium/Albuterol Sulfate 1 puff INHALATION RT-QID 02/06/19 02/02/20 History [Combivent Respimat Inhaler] Metoprolol Succinate (ER) [Toprol 25 mg PO DAILY 02/06/19 02/02/20 History XL] Famotidine [Pepcid] 20 mg PO BID PRN 09/23/19 02/02/20 History Furosemide [Lasix] 40 mg PO Q48H 09/23/19 02/02/20 History Nitroglycerin 0.1MG/Hr Patch 1 patch TRANSDERM DAILY PRN 09/23/19 02/02/20 History [Nitro-Dur 0.1MG/Hr Patch] Atorvastatin Calcium [Lipitor] 10 mg PO HS 02/02/20 02/02/20 History Insulin Degludec [Tresiba 12 units SQ DAILY 02/02/20 02/02/20 History Flextouch U-100] Insulin Lispro [humaLOG Kwikpen] See Protocol SQ AC-TID MDD 70 UNITS 02/02/20 02/02/20 History Isosorbide Mononitrate ER [Imdur] 30 mg PO DAILY 02/02/20 02/02/20 History Nicotine 7Mg/24Hr Patch [Habitrol 1 patch TRANSDERM DAILY PRN 02/02/20 02/02/20 History 7Mg/24Hr Patch] Pantoprazole Sodium [Protonix] 40 mg PO DAILY PRN 02/02/20 02/02/20 History Pregabalin 300 mg PO BID 02/02/20 02/02/20 History Zaleplon [Sonata] 10 mg PO HS PRN 02/02/20 02/02/20 History Zenpep 20,000 Iu 1 cap PO W/BRKFST 02/02/20 02/02/20 History diazePAM [Valium] 2 mg PO BID PRN 02/02/20 02/02/20 History Allergies Allergy/AdvReac Type Severity Reaction Status Date / Time meperidine HCl [From Demerol] AdvReac Severe Rapid Verified 02/02/20 14:36 Heart Rate/VOMITING ibuprofen [From Motrin] AdvReac Vomiting Verified 02/02/20 14:36 mayonnaise AdvReac Nausea & Verified 02/02/20 14:36 Vomiting & Diarrhea Physical Exam Vitals: Vital Signs Temp Pulse Pulse Resp BP BP Pulse Ox 02/03/20 08:00 97.6 F 92 18 146/77 96 02/03/20 04:00 96 18 146/71 94 L 02/03/20 00:00 94 20 130/61 94 L 02/02/20 21:15 20 02/02/20 20:39 86 20 122/63 97 02/02/20 18:23 98.1 F 90 18 141/68 98 02/02/20 17:00 98 F 88 26 H 139/71 96 02/02/20 16:00 88 20 119/69 97 02/02/20 15:31 90 02/02/20 15:27 92 22 139/71 97 02/02/20 14:34 98.1 F 95 20 122/72 95 Intake and Output 02/02/20 02/03/20 02/03/20 22:59 06:59 14:59 Other: Voiding Method Toilet Toilet # Voids 1 1 Weight 58.967 kg 66.1 kg Results 02/03/20 08:51 02/03/20 08:51 Cardiac Enzymes 02/02/20 02/02/20 02/02/20 Range/Units 15:19 15:19 18:58 AST 33 (17-59) U/L Troponin I 0.065 H* 0.058 H* (0.000-0.034) ng/mL 02/02/20 02/03/20 Range/Units 22:28 08:51 AST 28 (17-59) U/L Troponin I 0.047 H* (0.000-0.034) ng/mL Coagulation 02/02/20 Range/Units 15:19 PT 11.0 (9.0-12.0) sec APTT 29.6 (22.0-30.0) sec CBC 02/02/20 02/03/20 Range/Units 15:19 08:51 WBC 3.6 L 3.3 L (3.8-10.6) k/uL RBC 3.80 L 3.90 L (4.30-5.90) m/uL Hgb 11.6 L 12.0 L (13.0-17.5) gm/dL Hct 37.8 L 39.1 (39.0-53.0) % Plt Count 73 L (150-450) k/uL Comprehensive Metabolic Panel 02/02/20 02/03/20 Range/Units 15:19 08:51 Sodium 127 L 127 L (137-145) mmol/L Potassium 5.2 H 5.5 H (3.5-5.1) mmol/L Chloride 97 L 96 L (98-107) mmol/L Carbon Dioxide 23 22 (22-30) mmol/L BUN 49 H 55 H (9-20) mg/dL Creatinine 2.59 H 3.02 H (0.66-1.25) mg/dL Glucose 355 H 273 H (74-99) mg/dL Calcium 7.8 L 7.8 L (8.4-10.2) mg/dL AST 33 28 (17-59) U/L ALT 21 20 (4-49) U/L Alkaline Phosphatase 152 H 134 H (38-126) U/L Total Protein 6.1 L 6.0 L (6.3-8.2) g/dL Albumin 4.1 3.9 (3.5-5.0) g/dL Current Medications Generic Name Dose Route Start Last Admin Trade Name Freq PRN Reason Stop Dose Admin Hydrocodone Bitart/Acetaminophen 1 each 02/02/20 23:08 02/03/20 06:19 Hydrocodone/Apap 10-325mg 1 Each Tab PO 1 each Q4HR PRN Administration Pain Lipase/Protease/Amylase 4 each 02/03/20 07:30 02/03/20 06:54 Lipase 5,000/Protease 17,000/Amylase 24,000 PO 4 each W/BRKFST JOSY Administration Atorvastatin Calcium 10 mg 02/02/20 21:00 02/02/20 21:11 Atorvastatin 10 Mg Tab PO 10 mg HS JOSY Administration Diazepam 2 mg 02/02/20 23:08 Diazepam 2 Mg Tab PO BID PRN Anxiety Insulin Aspart 0 unit 02/03/20 07:30 02/03/20 06:55 Insulin Aspart (Novolog) 100 Unit/Ml Vial SQ 7 unit ACHS JOSY Administration Protocol Insulin Detemir 12 unit 02/03/20 07:00 02/03/20 07:10 Insulin Detemir (Levemir) 100 Unit/Ml Syr SQ 12 unit DAILY@0700 JOSY Administration Isosorbide Mononitrate 30 mg 02/03/20 09:00 02/03/20 08:04 Isosorbide Mononitrate Er 30 Mg Tab.Er.24h PO 30 mg DAILY JOSY Administration Metoprolol Succinate 25 mg 02/03/20 09:00 02/03/20 08:04 Metoprolol Succinate (Er) 25 Mg Tab.Er.24h PO 25 mg DAILY JOSY Administration Naloxone HCl 0.2 mg 02/02/20 17:14 Naloxone 0.4 Mg/Ml 1 Ml Vial IV Q2M PRN Opioid Reversal Nicotine 1 patch 02/02/20 23:08 Nicotine 7mg/24hr Patch TRANSDERM DAILY PRN NICOTINE ADDICTION Pantoprazole Sodium 40 mg 02/02/20 17:16 Pantoprazole 40 Mg Tablet PO DAILY PRN GERDS Pregabalin 300 mg 02/03/20 09:00 02/03/20 08:04 Pregabalin 100 Mg Cap PO 300 mg BID JOSY Administration Temazepam 30 mg 02/02/20 23:08 Temazepam 30 Mg Cap PO HS PRN Insomnia Intake and Output 02/02/20 02/03/20 02/03/20 22:59 06:59 14:59 Other: Voiding Method Toilet Toilet # Voids 1 1 Weight 58.967 kg 66.1 kg 02/03/20 08:51 02/03/20 08:51
[2020-02-03 12:43] LABS: ABG Base Excess -7.4 mmol/L; ABG HCO3 23 mmol/L (21-25); ABG Oxygen Saturation 91.9 % (94-97); ABG PO2 74 mmHg (83-108); ABG TCO2 26 mmol/L (19-24); Allen Test Performed? Yes
[2020-02-03 12:49] LABS: ABG PH 7.04 (7.35-7.45)
[2020-02-03 12:50] LABS: ABG PCO2 87 mmHg (35-45)
[2020-02-03 13:13] LABS: Glucose,Whole Blood 268 mg/dL (75-99)
[2020-02-03 14:15] LABS: ABG Base Excess -6.9 mmol/L; ABG HCO3 23 mmol/L (21-25); ABG Oxygen Saturation 80.1 % (94-97); ABG TCO2 26 mmol/L (19-24); Allen Test Performed? Yes
[2020-02-03 14:17] LABS: ABG PH 7.08 (7.35-7.45)
[2020-02-03 14:18] LABS: ABG PCO2 78 mmHg (35-45); ABG PO2 49 mmHg (83-108)
[2020-02-03] MEDS ORDERED: propofoL 100 ML IV ONE (14:44)
[2020-02-03] MEDS ORDERED: ETOMIDATE 2 MG/ML 10 ML VIAL ONE (14:46)
[2020-02-03] MEDS ORDERED: SUCCINYLCHOLINE CHLORIDE VIAL 200 MG/10 ML VIAL IV ONE (14:46)
--- NOTE | 2020-02-03 15:05 | XR ---
EXAMINATION TYPE: XR chest 1V portable DATE OF EXAM: 02/03/2020 COMPARISON: Yesterday HISTORY: Intubation TECHNIQUE: Single view FINDINGS: Endotracheal tube is 3 cm from the soto. Heart is enlarged. There is probably vascular co ngestion. There is left axillary pacemaker. There is nasogastric tube in the stomach. There is blunti ng of the costophrenic angles. IMPRESSION: Congestive heart failure with pleural effusions slightly worse than yesterday.
--- NOTE | 2020-02-03 15:06 | P.CNPUL ---
History of Present Illness Consult date: 02/03/20 Requesting physician: Tashia Stiles Reason for consult: dyspnea, COPD, hypoxemia, pleural effusion Chief complaint: Shortness of breath and swelling in both feet. History of present illness: This is a 59-year-old white male with known history of nonischemic cardiomyopathy, ejection fraction is 25-50%, history of moderate mitral regurgitation. previous AICD implantation, history of alcohol abuse, chronic systolic heart failure, chronic obstructive pulmonary disease, on home O2 at 2 L, chronic diaphragmatic paralysis, chronic pancreatitis, dyslipidemia, patient presented yesterday to the hospital with a few days' history of increased shortness of breath, and lower extremities edema. He was also complaining that his hands are not working right. He had no chest pain, no fever no chills, no hemoptysis. On admission, his chest x-ray clearly showed evidence of congestive heart failure and pleural effusions. Left lower lobe pneumonia is not entirely excluded. On admission, patient was noted to have significant abnormalities including Normal electrolytes and acute on chronic kidney injury. Patient was noted to have hyponatremia with a sodium of 127 potassium 5.5 twice a day a 55 creatinine 3.02. I rounded on this patient on the medical floor, and the patient talked to me, noted to be slightly confused, even walk to the door asking me questions. Shortly after I was notified about the patient becoming lethargic, and follow-up ABG showed a pO2 of 74 pCO2 of 87 pH of 7.04. Patient was placed on BiPAP, and he was transferred to the ICU. Repeat ABG showed a pO2 of 49 pCO2 of 78 pH of 7.08 and this was on a 60% BiPAP. With IPAP of 14 and EPAP of 6. Hence I recommended immediate intubation of the patient. And I will go back and reevaluate the patient in the ICU post intubation. Follow-up chest x-ray is pending. Review of Systems Constitutional: No fever, no chills. Or weight loss EENT: No headache. No dizziness. Lungs: As noted in HPI, mostly shortness of breath, and swelling of both lower extremities. Cardiovascular: As noted in HPI. Abdominal: No abdominal pain. No nausea, vomiting. No diarrhea. No constipation. Musculoskeletal: Seems to have difficulty with his hands movement, and seems to be complaining about swelling in both lower extremities. Integumentary: No wounds, no lesions. No rash or pruritus. Neurologic: Denies headache blurred vision dizziness. Psychiatric: Denies symptoms of depression. Hematologic: No clotting bleeding or bruising. GI: Negative Genitourinary: Negative Past Medical History Past Medical History: Heart Failure, COPD, CVA/TIA, Diabetes Mellitus, GERD/Reflux, Hyperlipidemia, Hypertension, Osteoarthritis (OA), Pneumonia, Renal Disease Additional Past Medical History / Comment(s): Severe COPD, chronic hypoxic respiratory failure, home oxygen at 4L/[place] ATC, nonishemic cardiomyopathy, AICD/pacer placement, TIA in 2018, pt denies past alcoholism, chronic pancreatitis, 3 pancreatic pseudocysts, IDDM type II, neuropathy biltaral legs/feet, chronic smoker, bilateral tinnitis occasionally, history of perforated left tympanic membranes-[place] left ear, pt states he has been treated for L arm pain with physical therapy but still having problems and has decreased ROM, chronic generalized pain, sinusitis History of Any Multi-Drug Resistant Organisms: None Reported Past Surgical History: AICD, Pacemaker Additional Past Surgical History / Comment(s): colonoscopy, "lump" removed from left side of neck. Past Anesthesia/Blood Transfusion Reactions: No Reported Reaction Type of Cardiac Device: Permanent Pacemaker, AICD Device Placement Date:: 09/2016 Past Psychological History: No Psychological Hx Reported Smoking Status: Current every day smoker Past Alcohol Use History: None Reported Past Drug Use History: None Reported - Past Family History Father Family Medical History: Congestive Heart Failure (CHF), COPD, Diabetes Mellitus Additional Family Medical History / Comment(s): Father is . He had mrsa, asbestoes exposure/lungs Mother Family Medical History: Diabetes Mellitus, Hypertension Additional Family Medical History / Comment(s): Mother is 87yrs old. Medications and Allergies Home Medications Medication Instructions Recorded Confirmed Type HYDROcodone/APAP 10-325MG [[place] 1 tab PO Q4HR PRN #120 tab 05/18/18 02/02/20 Rx 10-325] Ipratropium/Albuterol Sulfate 1 puff INHALATION RT-QID 02/06/19 02/02/20 History [Combivent Respimat Inhaler] Metoprolol Succinate (ER) [Toprol 25 mg PO DAILY 02/06/19 02/02/20 History XL] Famotidine [Pepcid] 20 mg PO BID PRN 09/23/19 02/02/20 History Furosemide [Lasix] 40 mg PO Q48H 09/23/19 02/02/20 History Nitroglycerin 0.1MG/Hr Patch 1 patch TRANSDERM DAILY PRN 09/23/19 02/02/20 History [Nitro-Dur 0.1MG/Hr Patch] Atorvastatin Calcium [Lipitor] 10 mg PO HS 02/02/20 02/02/20 History Insulin Degludec [Tresiba 12 units SQ DAILY 02/02/20 02/02/20 History Flextouch U-100] Insulin Lispro [humaLOG Kwikpen] See Protocol SQ AC-TID MDD 70 UNITS 02/02/20 02/02/20 History Isosorbide Mononitrate ER [Imdur] 30 mg PO DAILY 02/02/20 02/02/20 History Nicotine 7Mg/24Hr Patch [Habitrol 1 patch TRANSDERM DAILY PRN 02/02/20 02/02/20 History 7Mg/24Hr Patch] Pantoprazole Sodium [Protonix] 40 mg PO DAILY PRN 02/02/20 02/02/20 History Pregabalin 300 mg PO BID 02/02/20 02/02/20 History Zaleplon [Sonata] 10 mg PO HS PRN 02/02/20 02/02/20 History Zenpep 20,000 Iu 1 cap PO W/BRKFST 02/02/20 02/02/20 History diazePAM [Valium] 2 mg PO BID PRN 02/02/20 02/02/20 History Allergies Allergy/AdvReac Type Severity Reaction Status Date / Time meperidine HCl [From Demerol] AdvReac Severe Rapid Verified 02/02/20 14:36 Heart Rate/VOMITING ibuprofen [From Motrin] AdvReac Vomiting Verified 02/02/20 14:36 mayonnaise AdvReac Nausea & Verified 02/02/20 14:36 Vomiting & Diarrhea Physical Exam Vitals: Vital Signs Temp Pulse Pulse Resp BP BP Pulse Ox 02/03/20 11:53 18 02/03/20 11:33 18 98/55 92 L 02/03/20 11:24 97.4 F L 78 18 87/51 87 L 02/03/20 08:00 97.6 F 92 18 146/77 96 02/03/20 04:00 96 18 146/71 94 L 02/03/20 00:00 94 20 130/61 94 L 02/02/20 21:15 20 02/02/20 20:39 86 20 122/63 97 02/02/20 18:23 98.1 F 90 18 141/68 98 02/02/20 17:00 98 F 88 26 H 139/71 96 02/02/20 16:00 88 20 119/69 97 02/02/20 15:31 90 02/02/20 15:27 92 22 139/71 97 Intake and Output 02/02/20 02/03/20 02/03/20 22:59 06:59 14:59 Intake Total 24 Balance 24 Intake: IV 24 Furosemide 4 Saline Flush 20 Other: Voiding Method Toilet Toilet # Voids 1 1 Weight 58.967 kg 66.1 kg Gen: This is a 59-year-old male. Disheveled appearance. On 4 L nasal cannula. Before being transferred to ICU. VS: Afebrile, heart rate 78, blood pressure 98/55, pulse ox 92% on 4 L nasal cannula. HEENT: Atraumatic, normocephalic. EENT: PERRLA, EOMI, neck is, no neck masses, no JVD. NECK: Supple. No JVD. No lymphadenopathy. No thyromegaly. LUNGS: Diminished breath sound bilaterally no rhonchi no wheezes. Symmetrical chest expansion. HEART: Regular rate and rhythm. 2/6 systolic murmur thought the precordium. ABDOMEN: Soft nontender no megaly no rebound no guarding. EXTREMITIES: 2+ bipedal edema. Diminished pulses bilaterally. NEUROLOGICAL: Patient is noted to be awake, however he is slow, slightly confused, otherwise no gross focal deficits. Psychiatric: Normal mood affect and slow mentation slightly confused. Results - Laboratory Findings CBC and BMP: 02/03/20 08:51 02/03/20 08:51 ABG ABG pH 7.08 (7.35-7.45) L* 02/03/20 14:08 ABG pCO2 78 mmHg (35-45) H* 02/03/20 14:08 ABG pO2 49 mmHg (83-108) L* 02/03/20 14:08 ABG O2 Saturation 80.1 % (94-97) L 02/03/20 14:08 PT/INR, D-dimer PT 11.0 sec (9.0-12.0) 02/02/20 15:19 INR 1.1 (<1.2) 02/02/20 15:19 Abnormal lab findings: Abnormal Labs 02/02/20 02/02/20 02/02/20 15:19 15:19 15:19 WBC 3.6 L RBC 3.80 L Hgb 11.6 L Hct 37.8 L MCV MCHC 30.6 L Plt Count 73 L Lymphocytes # Lymphocytes # (Manual) 0.83 L Metamyelocytes # (Man) 0.04 H ABG pH ABG pCO2 ABG pO2 ABG Total CO2 ABG O2 Saturation Sodium 127 L Potassium 5.2 H Chloride 97 L BUN 49 H Creatinine 2.59 H Glucose 355 H POC Glucose (mg/dL) Calcium 7.8 L Alkaline Phosphatase 152 H Troponin I 0.065 H* Total Protein 6.1 L 02/02/20 02/02/20 02/02/20 17:51 18:58 22:28 WBC RBC Hgb Hct MCV MCHC Plt Count Lymphocytes # Lymphocytes # (Manual) Metamyelocytes # (Man) ABG pH ABG pCO2 ABG pO2 ABG Total CO2 ABG O2 Saturation Sodium Potassium Chloride BUN Creatinine Glucose POC Glucose (mg/dL) 332 H Calcium Alkaline Phosphatase Troponin I 0.058 H* 0.047 H* Total Protein 02/03/20 02/03/20 02/03/20 06:21 08:51 08:51 WBC 3.3 L RBC 3.90 L Hgb 12.0 L Hct MCV 100.3 H MCHC 30.6 L Plt Count 76 L Lymphocytes # 0.7 L Lymphocytes # (Manual) Metamyelocytes # (Man) ABG pH ABG pCO2 ABG pO2 ABG Total CO2 ABG O2 Saturation Sodium 127 L Potassium 5.5 H Chloride 96 L BUN 55 H Creatinine 3.02 H Glucose 273 H POC Glucose (mg/dL) 368 H Calcium 7.8 L Alkaline Phosphatase 134 H Troponin I Total Protein 6.0 L 02/03/20 02/03/20 02/03/20 12:36 13:11 14:08 WBC RBC Hgb Hct MCV MCHC Plt Count Lymphocytes # Lymphocytes # (Manual) Metamyelocytes # (Man) ABG pH 7.04 L* 7.08 L* ABG pCO2 87 H* 78 H* ABG pO2 74 L 49 L* ABG Total CO2 26 H 26 H ABG O2 Saturation 91.9 L 80.1 L Sodium Potassium Chloride BUN Creatinine Glucose POC Glucose (mg/dL) 268 H Calcium Alkaline Phosphatase Troponin I Total Protein - Diagnostic Findings Chest x-ray: image reviewed (Chest x-ray as noted in HPI, consistent with congestive heart failure, bilateral pleural effusions, doubt underlying pneumonia.) Assessment and Plan Assessment: Impression: Acute on chronic hypoxic and hypercapnic respiratory failure Acute on chronic systolic congestive heart failure History of severe underlying COPD and restrictive lung disease secondary to diaphragm paralysis. Acute kidney injury, could be cardiorenal in nature considering the patient has severe LV dysfunction. Severe systolic left ventricular dysfunction. History of severe underlying COPD and chronic hypoxic respiratory failure Hypertension. Dyslipidemia. Type 2 diabetes. GERD without esophagitis. Nonischemic cardiomyopathy and previous AICD placement History of chronic pancreatitis. History of pancreatic pseudocysts History of diabetic peripheral neuropathy. Recommendation: Considering the worsening of the patient's clinical status since the last time I saw him on the floor, I recommended immediate placement on BiPAP, however follow-up ABG showed slight worsening of his oxygenation and his hypercapnia, and I recommended immediate intubation. Ventilatory support. Diuretics. Hemodynamic support if needed. GI and DVT prophylaxis. Diuretics for his underlying systolic congestive heart failure Bronchodilators for his underlying COPD Nutritional support while on mechanical ventilation. Will reassess the patient in the ICU, and we'll continue to follow. Patient is obviously now critically ill, and he has multiple comorbidities. Prognosis is extremely poor and guarded. Time with Patient: Greater than 30
[2020-02-03 15:45] LABS: ABG Base Excess -7.8 mmol/L; ABG HCO3 21 mmol/L (21-25); ABG Oxygen Saturation 98.3 % (94-97); ABG PCO2 59 mmHg (35-45); ABG PO2 146 mmHg (83-108); ABG TCO2 23 mmol/L (19-24); Allen Test Performed? Yes
[2020-02-03 15:46] LABS: ABG PH 7.16 (7.35-7.45)
--- NOTE | 2020-02-03 17:19 | XR ---
EXAMINATION TYPE: XR chest 1V portable DATE OF EXAM: 02/03/2020 COMPARISON: Today HISTORY: Check line placement TECHNIQUE: FINDINGS: There is nasogastric tube in the stomach. There is endotracheal tube 4 cm from the soto. There is right subclavian catheter with the tip in the right atrium. Heart and mediastinum are shifte d significantly to the left side. There is left axillary pacemaker. There is no pneumothorax. IMPRESSION: There is significant volume loss in the left hemithorax with complete atelectasis of the left lung which is a significant change compared to exam 2 hours ago. Left bronchial obstruction is s uspected. There is pulmonary edema unchanged.
[2020-02-03] MEDS ORDERED: CISATRACURIUM 2 MG/ML 5 ML VIAL IV ONE (17:20)
[2020-02-03] MEDS: DOBUTamine DRIP 500 MG in DEXTROSE/WATER 1 250ML.BAG IV SCH (17:21)
[2020-02-03] MEDS: CISATRACURIUM 2 MG/ML 5 ML VIAL IV ONE ×2 (17:22→17:24)
--- NOTE | 2020-02-03 17:27 | XR ---
EXAMINATION TYPE: XR chest 1V portable DATE OF EXAM: 02/03/2020 COMPARISON: Today HISTORY: Pleural effusion. Thoracentesis. TECHNIQUE: Single view FINDINGS: There is complete opacification left hemithorax. Heart and mediastinum are shifted to the l eft side. Endotracheal tube is 4.5 cm from the soto. There is nasogastric tube in the stomach. Ther e is right subclavian catheter with tip in the superior vena cava. There is some mild atelectasis and pleural fluid right lung base. There is no heart failure. IMPRESSION: Complete atelectasis of the left lung unchanged. No pneumothorax. Small right pleural eff usion unchanged.
[2020-02-03 17:42] LABS: Glucose,Whole Blood 157 mg/dL (75-99)
[2020-02-03 17:48] LABS: ABG Base Excess -7.3 mmol/L; ABG HCO3 20 mmol/L (21-25); ABG Oxygen Saturation 98.9 % (94-97); ABG PCO2 47 mmHg (35-45); ABG PH 7.24 (7.35-7.45); ABG PO2 234 mmHg (83-108); ABG TCO2 22 mmol/L (19-24)
--- NOTE | 2020-02-03 17:51 | US ---
EXAMINATION TYPE: US chest DATE OF EXAM: 02/03/2020 COMPARISON: x ray CLINICAL HISTORY: left pleural effusion. TECHNIQUE: Targeted ultrasound of the posterior left chest EXAM MEASUREMENTS: Left Pleural Effusion pocket size: large fluid pocket seen but not measured due to lung seen anterio rly within fluid pocket. Dr Steiner at patient bedside during US scan left chest. Left side was not marked for possible thoracentesis outside the dept. Pulmonologists are able to review the images in the patient?s EMR. IMPRESSIONS: There is small amount of left pleural fluid demonstrated.
--- NOTE | 2020-02-03 18:03 | XR ---
EXAMINATION TYPE: XR chest 1V DATE OF EXAM: 02/03/2020 COMPARISON: Today HISTORY: Bronchoscopy TECHNIQUE: Single view FINDINGS: There is some aeration of the left upper lobe which is a significant improvement of the lef t lung compared to exam 30 minutes ago. Trachea is almost midline. There is infiltrate and atelectasi s left lower lobe. The left axillary pacemaker is noted. There is nasogastric tube in the stomach. En dotracheal tube is 5 cm from the soto. There is right subclavian catheter with tip in the superior vena cava. IMPRESSION: There is improvement in the left side pulmonary atelectasis compared to exam 30 minutes a go.
--- NOTE | 2020-02-03 18:57 | CT ---
EXAMINATION TYPE: CT brain wo con DATE OF EXAM: 02/03/2020 COMPARISON: 09/23/2019 HISTORY: mental status changes CT DLP: 1041.4 mGycm Automated exposure control for dose reduction was used. Ventricles and sulci appear normal. There is no mass effect nor midline shift. There is no sign of in tracranial hemorrhage. The calvarium is intact. IMPRESSION: Negative unenhanced head CT scan. No change.
--- NOTE | 2020-02-03 19:05 | CT ---
EXAMINATION TYPE: CT chest wo con DATE OF EXAM: 02/03/2020 COMPARISON: None HISTORY: respiratory failure CT DLP: 344.4 mGycm Automated exposure control for dose reduction was used. there are bilateral moderate pleural effusions. There is bilateral lower lobe pulmonary consolidatio n and atelectasis. There is endotracheal tube. There is nasogastric tube in the stomach. Heart is enl arged. There is no mediastinal adenopathy. Exam limited by lack of contrast. Bony thorax is intact. S ternum is intact. There is no pericardial effusion. Gallbladder is dilated and measures 12 x 5 cm. Th ere is calcified gallstone. There are pancreatic multiple calcifications consistent with chronic panc reatitis. Impression Bilateral pleural effusions with lower lobe pulmonary consolidation and atelectasis. Moderate cardiom egaly.
[2020-02-03] MEDS ORDERED: SYMBICORT 160-4.5 MCG INHALER INHALATION SCH (20:00)
[2020-02-03] MEDS ORDERED: SODIUM BICARB 8.4% 50 ML SYR (1 MEQ/ML) IV STA (20:01)
[2020-02-03] MEDS: ATORVASTATIN 10 MG TAB PO SCH (20:45)
[2020-02-03] MEDS: CHLORHEXIDINE GLUCONATE 15 ML CUP MUCOUS MEM SCH (20:45)
[2020-02-03] MEDS: ENOXAPARIN 40 MG/0.4 ML SYRINGE SQ SCH (20:46)
[2020-02-03] MEDS ORDERED: INSULIN ASPART (NovoLOG) 100 UNIT/ML VIAL SQ SCH (21:00)
--- NOTE | 2020-02-03 22:55 | P.PN ---
Subjective Progress Note Date: 02/03/20 Principal diagnosis: Acute CHF/COPD exacerbation Mr. Choudhury is a 59-year-old May with a past medical history of congestive heart failure, severe COPD on home oxygen of 4 L, nonischemic cardiomyopathy status post AICD/pacemaker placement, TIA, chronic pancreatitis, pancreatic pseudocyst, type 2 diabetes mellitus, neuropathy of bilateral lower extremities, hypertension, hyperlipidemia, osteoarthritis, renal disease coming into the hospital with a chief complaint of difficulty in breathing and increased swelling in both feet. Patient also complaining of epigastric pain for the past week, associated with mild nausea. He denies having any vomiting. No diarrhea or constipation. Patient denies having any blood in his stool. Patient states that he has history of chronic pancreatitis. On review of systems patient denies having any fevers chills or rigors. No w eakness of his extremities. No dysuria or hematuria. In the emergency room patient had chest x-ray showing mild congestive heart failure with pleural effusion with questionable a lower lobe pneumonia and an EKG showing sinus rhythm with occasional PVCs. Patient has been afebrile, saturating at 95% on 4 L of oxygen. On reviewing his labs hemoglobin of 11.6, platelets 73. Sodium 127, potassium 5.2, chloride 97, bicarb 23, BUN 49, creatinine 2.59. Blood sugar 300s. Troponin 0 0.065, proBNP 93655, AST 33, ALT 21. Alkaline phosphatase 152. Lipase is 54. On 02/03/2020 -around noon, I was paged by the nurse taking care of the patient that the patient has been having difficulty in breathing and that his peripheries have been blue and his lips have been turning blue. As per discussion with the nursing staff, she mentioned that the patient was saturating around high 90s on 4 L of his oxygen. Patient was also up and walking in the hallway this morning. So this is an acute deterioration in his condition. When I went to evaluate the patient, patient was short of breath, he was confused and had cyanosis of his lips. Patient's oxygen was increased from 4 L to 7 L, his oxygen saturation was around 85%. Patient's blood pressure was 110 x 60 and his heart rate was in 60s to 70s. So ABGs were obtained, pH of 7.08, PCO2 of 78, PO2 of 49. So the patient is started on BiPAP, transferred to ICU. Pulmonary team has been consulted and case was discussed with Dr. Kumar. Objective - Vital Signs Vital signs: Vital Signs Temp 97.4 F L 02/03/20 11:24 Pulse 78 02/03/20 11:24 Resp 18 02/03/20 11:53 BP 98/55 02/03/20 11:33 Pulse Ox 92 L 02/03/20 11:33 Intake & Output 02/02/20 02/03/20 02/03/20 18:59 06:59 18:59 Intake Total 24 Balance 24 Weight 58.967 kg 66.1 kg Intake: IV 24 Furosemide 4 Saline Flush 20 Other: Voiding Method Toilet # Voids 1 - Exam PHYSICAL EXAMINATION: GENERAL: Chronicall ill appearing , Temporal wasting, having difficulty in breathing HEENT: Pupils are round and equally reacting to light. EOMI. No scleral icterus. No conjunctival pallor. CARDIOVASCULAR: S1 and S2 present. No murmurs, rubs, or gallops. PULMONARY: Diminished BS in all lung field. Mild crackles at the lung bases . ABDOMEN: Soft, non tender , nondistended, normoactive bowel sounds. No palpable organomegaly. MUSCULOSKELETAL: No joint swelling or deformity. EXTREMITIES: Mild pedal edema. NEUROLOGICAL: Pt is confused SKIN: cyanosis of the lips and fingers. - Labs CBC & Chem 7: 02/03/20 08:51 02/03/20 08:51 Labs: Abnormal Lab Results - Last 24 Hours (Table) 02/02/20 02/02/20 02/02/20 Range/Units 15:19 15:19 15:19 WBC 3.6 L (3.8-10.6) k/uL RBC 3.80 L (4.30-5.90) m/uL Hgb 11.6 L (13.0-17.5) gm/dL Hct 37.8 L (39.0-53.0) % MCV (80.0-100.0) fL MCHC 30.6 L (31.0-37.0) g/dL Plt Count 73 L (150-450) k/uL Lymphocytes # (1.0-4.8) k/uL Lymphocytes # (Manual) 0.83 L (1.0-4.8) k/uL Metamyelocytes # (Man) 0.04 H (0) k/uL ABG pH (7.35-7.45) ABG pCO2 (35-45) mmHg ABG pO2 (83-108) mmHg ABG Total CO2 (19-24) mmol/L ABG O2 Saturation (94-97) % Sodium 127 L (137-145) mmol/L Potassium 5.2 H (3.5-5.1) mmol/L Chloride 97 L (98-107) mmol/L BUN 49 H (9-20) mg/dL Creatinine 2.59 H (0.66-1.25) mg/dL Glucose 355 H (74-99) mg/dL POC Glucose (mg/dL) (75-99) mg/dL Calcium 7.8 L (8.4-10.2) mg/dL Alkaline Phosphatase 152 H (38-126) U/L Troponin I 0.065 H* (0.000-0.034) ng/mL Total Protein 6.1 L (6.3-8.2) g/dL 02/02/20 02/02/20 02/02/20 Range/Units 17:51 18:58 22:28 WBC (3.8-10.6) k/uL RBC (4.30-5.90) m/uL Hgb (13.0-17.5) gm/dL Hct (39.0-53.0) % MCV (80.0-100.0) fL MCHC (31.0-37.0) g/dL Plt Count (150-450) k/uL Lymphocytes # (1.0-4.8) k/uL Lymphocytes # (Manual) (1.0-4.8) k/uL Metamyelocytes # (Man) (0) k/uL ABG pH (7.35-7.45) ABG pCO2 (35-45) mmHg ABG pO2 (83-108) mmHg ABG Total CO2 (19-24) mmol/L ABG O2 Saturation (94-97) % Sodium (137-145) mmol/L Potassium (3.5-5.1) mmol/L Chloride (98-107) mmol/L BUN (9-20) mg/dL Creatinine (0.66-1.25) mg/dL Glucose (74-99) mg/dL POC Glucose (mg/dL) 332 H (75-99) mg/dL Calcium (8.4-10.2) mg/dL Alkaline Phosphatase (38-126) U/L Troponin I 0.058 H* 0.047 H* (0.000-0.034) ng/mL Total Protein (6.3-8.2) g/dL 02/03/20 02/03/20 02/03/20 Range/Units 06:21 08:51 08:51 WBC 3.3 L (3.8-10.6) k/uL RBC 3.90 L (4.30-5.90) m/uL Hgb 12.0 L (13.0-17.5) gm/dL Hct (39.0-53.0) % MCV 100.3 H (80.0-100.0) fL MCHC 30.6 L (31.0-37.0) g/dL Plt Count 76 L (150-450) k/uL Lymphocytes # 0.7 L (1.0-4.8) k/uL Lymphocytes # (Manual) (1.0-4.8) k/uL Metamyelocytes # (Man) (0) k/uL ABG pH (7.35-7.45) ABG pCO2 (35-45) mmHg ABG pO2 (83-108) mmHg ABG Total CO2 (19-24) mmol/L ABG O2 Saturation (94-97) % Sodium 127 L (137-145) mmol/L Potassium 5.5 H (3.5-5.1) mmol/L Chloride 96 L (98-107) mmol/L BUN 55 H (9-20) mg/dL Creatinine 3.02 H (0.66-1.25) mg/dL Glucose 273 H (74-99) mg/dL POC Glucose (mg/dL) 368 H (75-99) mg/dL Calcium 7.8 L (8.4-10.2) mg/dL Alkaline Phosphatase 134 H (38-126) U/L Troponin I (0.000-0.034) ng/mL Total Protein 6.0 L (6.3-8.2) g/dL 02/03/20 02/03/20 Range/Units 12:36 13:11 WBC (3.8-10.6) k/uL RBC (4.30-5.90) m/uL Hgb (13.0-17.5) gm/dL Hct (39.0-53.0) % MCV (80.0-100.0) fL MCHC (31.0-37.0) g/dL Plt Count (150-450) k/uL Lymphocytes # (1.0-4.8) k/uL Lymphocytes # (Manual) (1.0-4.8) k/uL Metamyelocytes # (Man) (0) k/uL ABG pH 7.04 L* (7.35-7.45) ABG pCO2 87 H* (35-45) mmHg ABG pO2 74 L (83-108) mmHg ABG Total CO2 26 H (19-24) mmol/L ABG O2 Saturation 91.9 L (94-97) % Sodium (137-145) mmol/L Potassium (3.5-5.1) mmol/L Chloride (98-107) mmol/L BUN (9-20) mg/dL Creatinine (0.66-1.25) mg/dL Glucose (74-99) mg/dL POC Glucose (mg/dL) 268 H (75-99) mg/dL Calcium (8.4-10.2) mg/dL Alkaline Phosphatase (38-126) U/L Troponin I (0.000-0.034) ng/mL Total Protein (6.3-8.2) g/dL Assessment and Plan Assessment: ASSESSMENT Acute on Chronic hypoxic, hypercapnic respiratory failure Acute CHF exacerbation Acute COPD exacerbation Chronic hypoxic respiratory failure on 4 L of oxygen at home Acute kidney injury Hyperglycemia Pseudohyponatremia Hyperkalemia Elevated troponins Elevated BNP Nonischemic cardiomyopathy Chronic pancreatitis History of pancreatic pseudocysts Type 2 diabetes mellitus Bilateral peripheral neuropathy Hypertension CVA/TIA Hyperlipidemia Osteoarthritis PLAN: Patient had acute deterioration in his condition. ABGs obtained show pH of 7.03, PCO2 of 78, PO2 of 47. The patient has been started on BiPAP and tra nsferred to the ICU. Pulmonary Dr. Kumar accepted the patient to the ICU.Patient's family has been updated about the change in his status. Overall prognosis is poor.
[2020-02-03 23:43] LABS: Glucose,Whole Blood 154 mg/dL (75-99)
[2020-02-04 04:41] LABS: ABG HCO3 23 mmol/L (21-25); ABG Oxygen Saturation 92.9 % (94-97); ABG PCO2 39 mmHg (35-45); ABG PH 7.38 (7.35-7.45); ABG PO2 63 mmHg (83-108); ABG TCO2 24 mmol/L (19-24)
[2020-02-04 04:44] LABS: Appearance,BF Bloody; Color,BF Red; Nucleated Cells, Body Fluid 620 /uL; RBC, Body Fluid 7885 /uL
[2020-02-04 05:06] LABS: Allen Test Performed? no
[2020-02-04 05:16] LABS: Mononuclear WBC,Body Fluid 3 %; Polynuclear WBC,Body Fluid 97 %; Total Cells Counted,Body Fluid 100
[2020-02-04 05:27] LABS: HCT 33.4 % (39.0-53.0); MCH 30.4 pg (25.0-35.0); MCHC 32.9 g/dL (31.0-37.0); Mean Platelet Volume 9.8; RBC 3.62 m/uL (4.30-5.90); RDW 14.4 % (11.5-15.5); WBC 4.4 k/uL (3.8-10.6)
[2020-02-04 05:32] LABS: Albumin 2.8 g/dL (3.5-5.0); Potassium 4.2 mmol/L (3.5-5.1); Total Bilirubin 0.4 mg/dL (0.2-1.3); Total Protein 4.6 g/dL (6.3-8.2)
[2020-02-04 05:45] LABS: Platelet Count 87 k/uL (150-450)
[2020-02-04 05:46] LABS: MCV 92.5 fL (80.0-100.0)
[2020-02-04 06:58] LABS: Glucose,Whole Blood 147 mg/dL (75-99)
[2020-02-04] MEDS: INSULIN ASPART (NovoLOG) 100 UNIT/ML VIAL SQ SCH ×4 (06:58→21:38)
[2020-02-04] MEDS: methylPREDNISolone SOD SUCCI 40 MG/ML 1 ML VIAL IV SCH ×3 (06:59→17:33)
[2020-02-04] MEDS: LIPASE 5,000/PROTEASE 17,000/AMYLASE 24,000 PO SCH (07:07)
[2020-02-04] MEDS: INSULIN DETEMIR (LEVEMIR) 100 UNIT/ML SYR SQ SCH (07:07)
--- NOTE | 2020-02-04 07:24 | XR ---
EXAMINATION TYPE: XR chest 1V portable DATE OF EXAM: 02/04/2020 COMPARISON: 02/03/2020 HISTORY: SOB, Follow Up FINDINGS: Indwelling tubes and catheters are unchanged. Patchy perihilar and left basilar infiltrates noted without significant change. Stable appearance of the cardio-mediastinal structures at this time. Pleural effusion unchanged. IMPRESSION: 1. Stable portable chest. Clinical correlation and follow up until resolution is recommended.
--- NOTE | 2020-02-04 08:22 | US ---
EXAMINATION TYPE: US venous doppler duplex LE BI DATE OF EXAM: 02/03/2020 3:59 PM COMPARISON: NONE CLINICAL HISTORY: dvt. SIDE PERFORMED: Bilateral TECHNIQUE: The lower extremity deep venous system is examined utilizing real time linear array sonog zhen with graded compression, doppler sonography and color-flow sonography. VESSELS IMAGED: External Iliac Vein (EIV) Common Femoral Vein Deep Femoral Vein Greater Saphenous Vein * Femoral Vein Popliteal Vein Small Saphenous Vein * Proximal Calf Veins (* superficial vessels) Right Leg: Negative for DVT Left Leg: Negative for DVT *Extensive edema. Heavily calcified arteries. Technically difficult due to technologist contorting her body trying to reach patient, patient on emeli t in middle of bed. IMPRESSION: No evidence of deep vein thrombosis. Limited exam.
--- NOTE | 2020-02-04 09:24 | PCN ---
PROCEDURE NOTE PLACEMENT OF A RIGHT RADIAL ARTERIAL LINE: PREOPERATIVE DIAGNOSIS: Acute hypoxic and hypercapnic respiratory failure with congestive heart failure. POSTOPERATIVE DIAGNOSIS: Acute hypoxic and hypercapnic respiratory failure with congestive heart failure. ANESTHESIA USES: None deployed. PROCEDURE: The patient was placed in the supine position, the right wrist was prepared in a sterile fashion and drapes were applied. The right radial artery was palpated, cannulated, and a guidewire was placed. A Cook catheter was inserted over the guidewire, and the guidewire was removed. Good blood flow noted, good waveform, no evidence of any immediate complications. Line was secured using 3.0 silk sutures. MMODL / IJN: [id number] /
--- NOTE | 2020-02-04 09:30 | PCN ---
PROCEDURE NOTE PLACEMENT OF A RIGHT SUBCLAVIAN TRIPLE-LUMEN CATHETER: PREOPERATIVE DIAGNOSIS: Acute hypoxic and hypercapnic respiratory failure with congestive heart failure and COPD. POSTOPERATIVE DIAGNOSIS: Acute hypoxic and hypercapnic respiratory failure with congestive heart failure and COPD. ANESTHESIA USES: Two mL of 1% lidocaine. PROCEDURE: The patient was placed in a Trendelenburg position, the area of the right neck region and subclavian region was prepared in a sterile fashion and drapes were applied. The area below the right clavicle was prepared and it was anesthetized locally with lidocaine. Then using the infraclavicular approach, the right subclavian vein was easily cannulated, a guidewire was placed, the area around the guidewire was dilated. Then a triple-lumen catheter was inserted over the guidewire, and the guidewire was removed. Good blood flow noted in the 3 different ports of the triple-lumen catheter. The line was secured using 3.0 silk sutures. Chest x-ray ordered postoperatively. No evidence of any immediate complications. MMODL / IJN: [id number] /
[2020-02-04] MEDS: DOXYCYCLINE 100 MG CAP PO SCH ×2 (09:56→21:38)
[2020-02-04] MEDS: FUROSEMIDE 10 MG/ML 4 ML VIAL IV SCH ×2 (09:56→21:37)
[2020-02-04] MEDS: METOPROLOL SUCCINATE (ER) 25 MG TAB.ER.24H PO SCH (09:56)
[2020-02-04] MEDS: CHLORHEXIDINE GLUCONATE 15 ML CUP MUCOUS MEM SCH (09:56)
[2020-02-04] MEDS: ENOXAPARIN 40 MG/0.4 ML SYRINGE SQ SCH (09:56)
[2020-02-04] MEDS: ISOSORBIDE MONONITRATE ER 30 MG TAB.ER.24H PO SCH (09:56)
[2020-02-04] MEDS: PREGABALIN 100 MG CAP PO SCH ×2 (09:57→20:27)
--- NOTE | 2020-02-04 10:29 | PCN ---
PROCEDURE NOTE LEFT-SIDED THORACENTESIS: PREOPERATIVE DIAGNOSIS: Collapsed left lung, questionable extension of previous pleural effusion. POSTOPERATIVE DIAGNOSIS: No significant effusion noted with thoracentesis. PROCEDURE: Patient was sitting upright position, the area to the left scapula was prepared in a sterile fashion and drapes were applied. A 26-gauge needle was inserted at least 3 times into different spaces in the area of the left scapula, and attempts were made to drain fluid; however, there is no more than 2 mL of light colored fluid could be drained from the left lung. Hence, no further attempts were made, ultrasound done postoperatively showed minimal amount of fluid, and basically showed collapsed lung. Hence, no further attempts were made and went ahead and performed a bronchoscopy. Please refer to the operative report on bronchoscopy. MMODL / IJN: [id number] /
--- NOTE | 2020-02-04 10:33 | PCN ---
PROCEDURE NOTE BRONCHOSCOPY AND LAVAGE OF THE LEFT LUNG: PREOPERATIVE DIAGNOSIS: Collapsed left lung with suspicion of the left the mucous plugging. POSTOPERATIVE DIAGNOSIS: Collapsed left lung with suspicion of the left the mucous plugging. ANESTHESIA USES: Patient was already on mechanical ventilation, propofol and he was given Nimbex 10 mg IV push prior to the procedure. PROCEDURE: Patient was already connected to mechanical ventilation, an adapter was applied at the endotracheal tube, and we were monitoring his cardiac rhythm continuously. Blood pressure was continuously monitored via arterial line, and the bronchoscope was advanced through the endotracheal tube down to the area of the soto. Endotracheal tube was noted to be about 3 cm above the soto. Examination of the right side showed no evidence of any mucus plugs. Examination of the left side showed some minimal loose plugs in the left mainstem bronchus. These were suctioned with the bronchoscope, and lavage was done of the different areas of the left lung including the left upper lobe lingula and left lower lobe. No evidence of any complications. The chest x-ray postoperatively showed re-expansion of the left upper lobe, there was no evidence of pneumothorax, and the left lower lobe remained collapsed, but nice air bronchogram was noted in the left lower lobe. The procedure was well tolerated and no evidence of any immediate complications. MMODL / IJN: [id number] /
--- NOTE | 2020-02-04 11:31 | PN ---
PROGRESS NOTE PULMONARY/CRITICAL CARE PROGRESS NOTE: DATE OF SERVICE: 02/04/2020 Critical care time 34 minutes. This is a patient who was seen by my partner yesterday in evaluation. The patient was admitted actually on February 02, 2020. He came in with complaints of shortness of breath and heart failure. His was initially admitted to [address] [place] [address] and was transferred to the ICU on February 02 when he was found to be poorly responsive and cyanotic. The patient was intubated on February 03, 2020. Currently he remains on the ventilator. He is on the volume assist-control mode, rate of 26, tidal volume 400, FiO2 45%, PEEP of 5. Gases show a PaO2 of 63, pCO2 of 39 and a pH of 7.38. He is on dobutamine at 2.5 mcg/kg per minute, propofol at 40 mcg/kg per minute and 0.9 at 20 mL an hour. The nurse was concerned about the fact that the patient was rigid and maybe posturing. I did tell the nurse to stop the propofol and to re-evaluate the patient. A CT of the brain was negative. He may need EEG and neurological consultation. In addition, tube feeds will have to be started. 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 The patient did end up having bronchoscopy, thoracentesis, arterial line, central line, etc. Current vital signs are reviewed. They include a temperature 97.8, heart rate 61, respiratory rate 26, blood pressure 124/75 mean 91, saturations are 97%. Currently he is on FiO2 of 45%, PEEP of 5. HEENT: Examination is grossly unremarkable. There is no orally placed endotracheal tube. NECK: Supple, full range of motion. No adenopathy. Neck veins are flat. CARDIOVASCULAR: Examination reveals regular rhythm and rate. Heart rate 71 beats per minute. Heart sounds are distant. LUNGS: Reveal diffuse coarse rhonchi. There are some crackles bilaterally. ABDOMEN: Soft. No bowel sounds. EXTREMITIES: Intact. No edema. SKIN: Without rash. NEUROLOGIC: Examination cannot be adequately assessed as the patient is on propofol. I did ask the nurse to do a daily interruption of sedation to evaluate neurologic status. CURRENT LABORATORY DATA: Reviewed. White count 4.4, hemoglobin 11, hematocrit 33.4, platelet count 87,000, blood gases have been noted. Sodium 131, potassium 4.2, chloride 103, CO2 is 21m anion gap is 7. BUN and creatinine were 50 and 2.67. Albumin 2.8. Microbiology including a pleural fluid analysis is currently pending. The most recent chest x-ray shows a pacemaker insertion as well as mostly clear right lung and a right-sided central line. There may be some atelectasis or infiltrate at the right lung base, right mid lung. The left side is more difficult to interpret as the heart is rather large. There is probably a left-sided pleural effusion and/or consolidation at the left base. CURRENT MEDICATIONS: Reviewed. He is currently on Lipitor, chlorhexidine, dobutamine drip at 2.5 mcg/kg per minute as mentioned earlier, doxycycline, Lovenox, Lasix, insulin, Imdur, Zenpep, Solu- Medrol, metoprolol, Narcan, nicotine patch, Protonix, Lyrica, and propofol. ASSESSMENT: 1. Acute on chronic hypoxemic and hypercapnic respiratory failure, with intubation on February 03, 2020. 2. Acute on chronic systolic congestive heart failure. 3. History of severe underlying chronic obstructive pulmonary disease. 4. 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 5. Acute kidney injury. 6. Severe systolic left ventricular dysfunction. 7. Essential hypertension. 8. Hyperlipidemia. 9. Type 2 diabetes with diabetic peripheral neuropathy. 10.History of gastroesophageal reflux disease. 11.Nonischemic cardiomyopathy, status post AICD placement. 12.History of chronic pancreatitis with pancreatic exocrine insufficiency. 13.History of pancreatic pseudocyst. PLAN: The patient's sedation will be held for the time being. We will re-evaluate the patient's neurologic status. The patient may need EEG and neurological consultation. Additional recommendations and suggestions are forthcoming. We will continue to follow. Prognosis is guarded. Will continue to monitor daily labs. Overall prognosis is very guarded. Not ready for extubation at this time. Critical care time 34 minutes. MMODL / IJN: [id number] /
--- NOTE | 2020-02-04 11:55 | P.PN ---
Subjective Progress Note Date: 02/04/20 HISTORY OF PRESENT ILLNESS: Patient examined this morning at the bedside. Patient remains intubated in the intensive care unit. Patient remains on IV Lasix 40 mg every 12 hours. Patient also remains on low-dose dobutamine. Patient's creatinine today is 2.67. Fluid balance over the last 24 hours is -1 L. PHYSICAL EXAM: VITAL SIGNS: Reviewed. GENERAL: Well-developed in no acute distress-sedation and mechanical ventilation. NECK: Supple. No JVD or thyromegaly LUNGS: Respirations even and unlabored. Lungs diminished with scattered rhonchi HEART: Regular rate and rhythm. S1 and S2 heard. EXTREMITIES: Normal range of motion. No clubbing or cyanosis. Peripheral pulses intact. Trace bilateral lower extremity edema ASSESSMENT: Acute on chronic hypoxic and hypercapnic respiratory failure requiring mechanical ventilation Acute exacerbation of systolic congestive heart failure Acute on chronic kidney disease Hypertension Hyperlipidemia Diabetes minus, type II History of nonischemic cardiomyopathy with previous AICD placement, EF 25-30% PLAN: Repeat BNP Continue IV Dobutamine Continue IV lasix Daily weight Accurate I&O Monitor kidney function Nurse practitioner note has been reviewed by physician. Signing provider agrees with the documented findings, assessment, and plan of care. Objective - Vital Signs Vital signs: Vital Signs Temp 97.9 F 02/04/20 08:00 Pulse 76 02/04/20 10:30 Resp 26 H 02/04/20 10:30 BP 131/108 02/04/20 10:30 Pulse Ox 99 02/04/20 10:30 Intake & Output 02/03/20 02/04/20 02/04/20 18:59 06:59 18:59 Intake Total 64.855 297.904 60 Output Total 215 1160 250 Balance -150.145 -862.096 -190 Weight 58.9 kg Intake: IV 44 240 60 0.9% NS KVO 20 240 60 Furosemide 4 Saline Flush 20 Intake, IV Titration 20.855 57.904 Amount DOBUTamine DRIP 500 mg In 6.445 Dextrose/Water 1 250ml. bag @ 5 MCG/KG/MIN 9.915 mls/hr IV .Q24H [facility] Rx#: [id number] propofoL 1,000 mg In 14.410 57.904 Empty Bag 1 bag @ Titrate IV .Q0M [facility] Rx#: [id number] Output: Urine 215 1160 250 Other: Voiding Method Indwelling Catheter Indwelling Catheter Indwelling Catheter # Voids 1 ABP, PAP, CO, CI - Last Documented Arterial Blood Pressure 167/63 - Labs CBC & Chem 7: 02/04/20 04:40 02/04/20 04:40 Labs: Abnormal Lab Results - Last 24 Hours (Table) 02/03/20 02/03/20 02/03/20 Range/Units 12:36 13:11 14:08 RBC (4.30-5.90) m/uL Hgb (13.0-17.5) gm/dL Hct (39.0-53.0) % Plt Count (150-450) k/uL D-Dimer (<0.60) mg/L FEU ABG pH 7.04 L* 7.08 L* (7.35-7.45) ABG pCO2 87 H* 78 H* (35-45) mmHg ABG pO2 74 L 49 L* (83-108) mmHg ABG HCO3 (21-25) mmol/L ABG Total CO2 26 H 26 H (19-24) mmol/L ABG O2 Saturation 91.9 L 80.1 L (94-97) % Sodium (137-145) mmol/L Carbon Dioxide (22-30) mmol/L BUN (9-20) mg/dL Creatinine (0.66-1.25) mg/dL Glucose (74-99) mg/dL POC Glucose (mg/dL) 268 H (75-99) mg/dL Calcium (8.4-10.2) mg/dL Total Protein (6.3-8.2) g/dL Albumin (3.5-5.0) g/dL 02/03/20 02/03/20 02/03/20 Range/Units 15:17 15:42 17:41 RBC (4.30-5.90) m/uL Hgb (13.0-17.5) gm/dL Hct (39.0-53.0) % Plt Count (150-450) k/uL D-Dimer 1.29 H (<0.60) mg/L FEU ABG pH 7.16 L* (7.35-7.45) ABG pCO2 59 H (35-45) mmHg ABG pO2 146 H (83-108) mmHg ABG HCO3 (21-25) mmol/L ABG Total CO2 (19-24) mmol/L ABG O2 Saturation 98.3 H (94-97) % Sodium (137-145) mmol/L Carbon Dioxide (22-30) mmol/L BUN (9-20) mg/dL Creatinine (0.66-1.25) mg/dL Glucose (74-99) mg/dL POC Glucose (mg/dL) 157 H (75-99) mg/dL Calcium (8.4-10.2) mg/dL Total Protein (6.3-8.2) g/dL Albumin (3.5-5.0) g/dL 02/03/20 02/03/20 02/04/20 Range/Units 17:46 23:42 04:40 RBC (4.30-5.90) m/uL Hgb (13.0-17.5) gm/dL Hct (39.0-53.0) % Plt Count (150-450) k/uL D-Dimer (<0.60) mg/L FEU ABG pH 7.24 L (7.35-7.45) ABG pCO2 47 H (35-45) mmHg ABG pO2 234 H 63 L (83-108) mmHg ABG HCO3 20 L (21-25) mmol/L ABG Total CO2 (19-24) mmol/L ABG O2 Saturation 98.9 H 92.9 L (94-97) % Sodium (137-145) mmol/L Carbon Dioxide (22-30) mmol/L BUN (9-20) mg/dL Creatinine (0.66-1.25) mg/dL Glucose (74-99) mg/dL POC Glucose (mg/dL) 154 H (75-99) mg/dL Calcium (8.4-10.2) mg/dL Total Protein (6.3-8.2) g/dL Albumin (3.5-5.0) g/dL 02/04/20 02/04/20 02/04/20 Range/Units 04:40 04:40 06:56 RBC 3.62 L (4.30-5.90) m/uL Hgb 11.0 L (13.0-17.5) gm/dL Hct 33.4 L (39.0-53.0) % Plt Count 87 L (150-450) k/uL D-Dimer (<0.60) mg/L FEU ABG pH (7.35-7.45) ABG pCO2 (35-45) mmHg ABG pO2 (83-108) mmHg ABG HCO3 (21-25) mmol/L ABG Total CO2 (19-24) mmol/L ABG O2 Saturation (94-97) % Sodium 131 L (137-145) mmol/L Carbon Dioxide 21 L (22-30) mmol/L BUN 58 H (9-20) mg/dL Creatinine 2.67 H (0.66-1.25) mg/dL Glucose 109 H (74-99) mg/dL POC Glucose (mg/dL) 147 H (75-99) mg/dL Calcium 7.0 L (8.4-10.2) mg/dL Total Protein 4.6 L (6.3-8.2) g/dL Albumin 2.8 L (3.5-5.0) g/dL Microbiology - Last 24 Hours (Table) 02/03/20 17:30 Body Fluid Culture - Preliminary Pleural Fluid
[2020-02-04 14:00] LABS: Glucose,Whole Blood 75 mg/dL (75-99)
[2020-02-04] MEDS: IPRATROPIUM-ALBUTEROL 3 ML NEB INHALATION SCH ×4 (14:11→23:39)
[2020-02-04 14:51] LABS: Appearance,Urine Clear (Clear); Bacteria,Urine Rare /hpf; Bilirubin,Urine Negative (Negative); Blood,Urine Small (Negative); Color,Urine Light Yellow; Glucose,Urine (UA) Negative (Negative); Ketones,Urine Negative (Negative); Leukocyte Esterase,Urine Negative (Negative); Mucus,Urine Rare /hpf; Nitrite,Urine Negative (Negative); Protein,Urine Negative (Negative); RBC,Urine 2 /hpf (0-5); Specific Gravity,Urine 1.007 (1.001-1.035); Squamous Epithelial Cell,Urine <1 /hpf (0-4); Urobilinogen,Urine <2.0 mg/dL (<2.0); WBC,Urine 1 /hpf (0-5)
[2020-02-04] MEDS: DOBUTamine DRIP 500 MG in DEXTROSE/WATER 1 250ML.BAG IV SCH (16:52)
[2020-02-04 17:11] LABS: Glucose,Whole Blood 71 mg/dL (75-99)
--- NOTE | 2020-02-04 18:01 | CONS ---
CONSULTATION REASON FOR CONSULT: Renal failure. HISTORY OF PRESENT ILLNESS: Patient is a 59-year-old male who was initially admitted to the hospital on 02/02/2020 with complaints of shortness of breath. He has a history of COPD, CHF, cardiomyopathy, type 2 diabetes and chronic kidney disease. The patient had developed respiratory arrest on the floor and was brought into the ICU post intubation. He was actually extubated this morning. Patient's serum creatinine was 2.59 on admission, increased to 3.0, and now it is down to 2.67. Review of previous labs shows serum creatinine 1.3 to 1.5 mg/dL in September and April of 2019. CKD stage 3. Patient currently has no episodes of hypotension. He is not maintained on IV fluids and did get a dose of IV Lasix this morning. Chest x- ray from today shows patchy perihilar and left basilar infiltrates. Patient had a thoracentesis and bronchoscopy. Bronchoscopy showed a mucus plug with collapsed left lung. Patient also had thoracentesis, but no significant pleural fluid was obtained. PAST MEDICAL HISTORY: COPD, type 2 diabetes, CHF, cardiomyopathy, history of chronic pancreatitis, osteoarthritis, history of pseudocyst, TIA, hearing loss in left ear. PAST SURGICAL HISTORY: AICD placement, colonoscopy. SOCIAL HISTORY: Positive for smoking. No history of drug abuse or alcohol abuse. MEDICATIONS: Medications prior to admission included [place], Pepcid, Toprol, Lasix, Lipitor, Imdur, Valium, Protonix. ALLERGIES: ALLERGIES include DEMEROL, IBUPROFEN. REVIEW OF SYSTEMS: As per HPI. Other systems negative. PHYSICAL EXAMINATION: Patient is comfortable, awake. He is not in any acute distress. Alert, oriented x3. Blood pressure is 120/71, heart rate 71 per minute. He is afebrile. EXAMINATION OF THE HEART: S1 and S2. EXAMINATION OF LUNGS: Decreased breath sounds at bilateral bases. ABDOMEN: Soft, non-tender. Examination of lower extremities shows no evidence of edema. LAP HAND TOOL exam is grossly intact. LABS: Labs show sodium 131, potassium 4.2, chloride 103. CO2 is 21, BUN 58, creatinine 2.67, hemoglobin 11.0 g/dL. UA is not available. ASSESSMENT: 1. Acute kidney injury, possibly cardiorenal, status post diuresis, currently maintained on Lasix 40 mg IV q.12 hours. He is also on dobutamine drip. He has good urine output. Renal function has improved since yesterday. Weight is down. [id number] urine output about 1.3 L. 2. Chronic kidney disease, most likely secondary to nephrosclerosis and diabetic nephropathy. Check urinalysis. Consider CONRAD inhibitors or angiotensin receptor blockers down the road when renal function is stable. 3. Acute hypoxic respiratory failure, status post extubation, currently doing well. 4. Cardiomyopathy, ejection fraction 25% to 30%, on echocardiogram in August of 2019. 5. Collapsed left lung, status post bronchoscopy and removal of mucus plug. PLAN: Continue with current dose of Lasix. Continue with dobutamine. Check urinalysis. Repeat labs in a.m. Thank you for this consultation. Will continue to follow the patient with you during his hospitalization. MMMARGARITOL / OLIVIERN: [id number] /
--- NOTE | 2020-02-04 20:57 | P.PN ---
Subjective Progress Note Date: 02/04/20 Principal diagnosis: CHF with COPD element The patient is a 59-year-old white male with known history of chronic back otitis diabetes CHF and COPD. The patient is mechanically ventilated at this time and has recently undergone bronchoscope for mucus plugging. Patient tolerated the procedure well. Objective - Vital Signs Vital signs: Vital Signs Temp 98.0 F 02/04/20 16:00 Pulse 80 02/04/20 19:00 Resp 21 02/04/20 19:00 BP 136/77 02/04/20 19:00 Pulse Ox 99 02/04/20 19:00 Intake & Output 02/04/20 02/04/20 02/05/20 06:59 18:59 06:59 Intake Total 297.904 740 Output Total 1160 1430 Balance -862.096 -690 Weight 58.9 kg 58.9 kg Intake: IV 240 260 0.9% NS KVO 240 260 Intake, IV Titration 57.904 Amount propofoL 1,000 mg In 57.904 Empty Bag 1 bag @ Titrate IV .Q0M [facility] Rx#: [id number] Oral 480 Output: Urine 1160 1430 Other: Voiding Method Indwelling Catheter Indwelling Catheter ABP, PAP, CO, CI - Last Documented Arterial Blood Pressure 168/57 - Constitutional General appearance: Present: thin - EENT Eyes: Absent: abnormal pupil - Neck Neck: Absent: lymphadenopathy - Respiratory Respiratory: left: diminished - Cardiovascular Rhythm: irregularly irregular Heart sounds: normal: S1, S2 Abnormal Heart Sounds: Absent: S3 Gallop - Gastrointestinal General gastrointestinal: Present: soft. Absent: tenderness - Psychiatric Psychiatric: Absent: A&O x's 3 - Labs CBC & Chem 7: 02/04/20 04:40 02/04/20 04:40 Labs: Abnormal Lab Results - Last 24 Hours (Table) 02/03/20 02/04/20 02/04/20 Range/Units 23:42 04:40 04:40 RBC 3.62 L (4.30-5.90) m/uL Hgb 11.0 L (13.0-17.5) gm/dL Hct 33.4 L (39.0-53.0) % Plt Count 87 L (150-450) k/uL ABG pO2 63 L (83-108) mmHg ABG O2 Saturation 92.9 L (94-97) % Sodium (137-145) mmol/L Carbon Dioxide (22-30) mmol/L BUN (9-20) mg/dL Creatinine (0.66-1.25) mg/dL Glucose (74-99) mg/dL POC Glucose (mg/dL) 154 H (75-99) mg/dL Calcium (8.4-10.2) mg/dL Total Protein (6.3-8.2) g/dL Albumin (3.5-5.0) g/dL Urine Blood (Negative) Urine Bacteria (None) /hpf Urine Mucus (None) /hpf 02/04/20 02/04/20 02/04/20 Range/Units 04:40 06:56 14:00 RBC (4.30-5.90) m/uL Hgb (13.0-17.5) gm/dL Hct (39.0-53.0) % Plt Count (150-450) k/uL ABG pO2 (83-108) mmHg ABG O2 Saturation (94-97) % Sodium 131 L (137-145) mmol/L Carbon Dioxide 21 L (22-30) mmol/L BUN 58 H (9-20) mg/dL Creatinine 2.67 H (0.66-1.25) mg/dL Glucose 109 H (74-99) mg/dL POC Glucose (mg/dL) 147 H (75-99) mg/dL Calcium 7.0 L (8.4-10.2) mg/dL Total Protein 4.6 L (6.3-8.2) g/dL Albumin 2.8 L (3.5-5.0) g/dL Urine Blood Small H (Negative) Urine Bacteria Rare H (None) /hpf Urine Mucus Rare H (None) /hpf 02/04/20 Range/Units 17:09 RBC (4.30-5.90) m/uL Hgb (13.0-17.5) gm/dL Hct (39.0-53.0) % Plt Count (150-450) k/uL ABG pO2 (83-108) mmHg ABG O2 Saturation (94-97) % Sodium (137-145) mmol/L Carbon Dioxide (22-30) mmol/L BUN (9-20) mg/dL Creatinine (0.66-1.25) mg/dL Glucose (74-99) mg/dL POC Glucose (mg/dL) 71 L (75-99) mg/dL Calcium (8.4-10.2) mg/dL Total Protein (6.3-8.2) g/dL Albumin (3.5-5.0) g/dL Urine Blood (Negative) Urine Bacteria (None) /hpf Urine Mucus (None) /hpf Microbiology - Last 24 Hours (Table) 02/04/20 05:12 Sputum Culture - Preliminary Sputum 02/03/20 17:30 Body Fluid Culture - Preliminary Pleural Fluid Assessment and Plan (1) Congestive heart failure Current Visit: Yes Status: Acute Code(s): I50.9 - HEART FAILURE, UNSPECIFIED SNOMED Code(s): 55964263 (2) Hyperglycemia Current Visit: Yes Status: Acute Code(s): R73.9 - HYPERGLYCEMIA, UNSPECIFIED SNOMED Code(s): 44032503 (3) Hyponatremia Current Visit: Yes Status: Acute Code(s): E87.1 - HYPO-OSMOLALITY AND HYPONATREMIA SNOMED Code(s): 87286014 (4) Respiratory failure Current Visit: No Status: Acute Code(s): J96.90 - RESPIRATORY FAILURE, UNSP, UNSP W HYPOXIA OR HYPERCAPNIA SNOMED Code(s): 808043300 Plan: Continue can significant supportive care. Prognosis is guarded secondary to his multiple comorbidities. Check CBC and CMP with chest x-ray in a.m. Time with Patient: Greater than 30
[2020-02-04 21:26] LABS: Glucose,Whole Blood 354 mg/dL (75-99)
[2020-02-04 21:32] LABS: Glucose,Whole Blood 327 mg/dL (75-99)
[2020-02-04] MEDS: ATORVASTATIN 10 MG TAB PO SCH (21:38)
[2020-02-04 23:38] LABS: Glucose,Whole Blood 299 mg/dL (75-99)
[2020-02-05] MEDS: methylPREDNISolone SOD SUCCI 40 MG/ML 1 ML VIAL IV SCH ×5 (00:17→23:48)
[2020-02-05 05:18] LABS: Albumin 3.6 g/dL (3.5-5.0); Calcium 7.7 mg/dL (8.4-10.2); Potassium 5.4 mmol/L (3.5-5.1); Total Bilirubin 0.5 mg/dL (0.2-1.3); Total Protein 5.6 g/dL (6.3-8.2)
[2020-02-05 05:34] LABS: HCT 34.3 % (39.0-53.0); HGB 11.4 gm/dL (13.0-17.5); MCH 30.8 pg (25.0-35.0); MCHC 33.1 g/dL (31.0-37.0); MCV 92.9 fL (80.0-100.0); RBC 3.69 m/uL (4.30-5.90); RDW 14.6 % (11.5-15.5); WBC 3.9 k/uL (3.8-10.6)
[2020-02-05 05:36] LABS: Platelet Count 79 k/uL (150-450)
[2020-02-05] MEDS: IPRATROPIUM-ALBUTEROL 3 ML NEB INHALATION SCH ×5 (05:58→20:54)
[2020-02-05 06:07] LABS: ABG Base Excess -3.3 mmol/L; ABG HCO3 23 mmol/L (21-25); ABG PCO2 43 mmHg (35-45); ABG PH 7.33 (7.35-7.45); ABG PO2 87 mmHg (83-108); ABG TCO2 24 mmol/L (19-24); Allen Test Performed? Yes
[2020-02-05] MEDS: LIPASE 5,000/PROTEASE 17,000/AMYLASE 24,000 PO SCH (06:46)
[2020-02-05] MEDS: INSULIN DETEMIR (LEVEMIR) 100 UNIT/ML SYR SQ SCH (06:46)
--- NOTE | 2020-02-05 07:01 | XR ---
EXAMINATION TYPE: XR chest 1V portable DATE OF EXAM: 02/05/2020 HISTORY: Shortness of breath. COMPARISON: 02/04/2020 TECHNIQUE: Single view of the chest is submitted. FINDINGS: Demonstrated are scattered senescent parenchymal change. There is been interval endotracheal and NG tubes. There is now complete opacification left hemithorax with abrupt termination of the left mainstem bron chus. Underlying mucous plug or lesion is difficult to exclude. Increasing patchy density at the righ t medial lung base is also identified. Degenerative changes are seen of the dorsal spine. IMPRESSION: 1. There is now complete opacification left hemithorax with abrupt termination of the left mainstem bronchus. Underlying mucous plug or lesion is difficult to exclude. Increasing patchy density at the right medial lung base is also identified.
[2020-02-05 07:29] LABS: Glucose,Whole Blood 286 mg/dL (75-99)
[2020-02-05] MEDS ORDERED: INSULIN ASPART (NovoLOG) 100 UNIT/ML VIAL SQ SCH ×3 (07:30→12:45)
[2020-02-05] MEDS: INSULIN ASPART (NovoLOG) 100 UNIT/ML VIAL SQ SCH ×2 (07:32→12:24)
--- NOTE | 2020-02-05 08:34 | P.PN ---
Subjective Principal diagnosis: CHF with COPD element The patient is a 59-year-old white male with known history of chronic back otitis diabetes CHF and COPD. The patient is mechanically ventilated at this time and has recently undergone bronchoscope for mucus plugging. Patient tolerated the procedure well. However, minimal mucus and fluid was removed. I suspect he might need a repeat procedure today to clear the left lung as the x-ray does show significant white out. Objective - Vital Signs Vital signs: Vital Signs Temp 96.9 F L 02/05/20 04:00 Pulse 88 02/05/20 08:24 Resp 18 02/05/20 07:00 BP 144/81 02/05/20 07:00 Pulse Ox 97 02/05/20 07:00 Intake & Output 02/04/20 02/05/20 02/05/20 18:59 06:59 18:59 Intake Total 740 970 20 Output Total 1430 1755 350 Balance -690 -845 -330 Weight 58.9 kg 61.2 kg Intake: IV 260 220 20 0.9% NS KVO 260 220 20 Oral 480 750 Output: Urine 1430 1755 350 Other: Voiding Method Indwelling Catheter Indwelling Catheter ABP, PAP, CO, CI - Last Documented Arterial Blood Pressure 183/72 - Constitutional General appearance: Present: thin - EENT Eyes: Absent: abnormal pupil - Neck Neck: Absent: lymphadenopathy - Respiratory Respiratory: right: rales, left: diminished - Cardiovascular Rhythm: regular Heart sounds: normal: S1, S2 - Gastrointestinal General gastrointestinal: Present: soft. Absent: tenderness - Labs CBC & Chem 7: 02/05/20 04:50 02/05/20 04:50 Labs: Abnormal Lab Results - Last 24 Hours (Table) 02/04/20 02/04/20 02/04/20 Range/Units 14:00 17:09 21:25 RBC (4.30-5.90) m/uL Hgb (13.0-17.5) gm/dL Hct (39.0-53.0) % Plt Count (150-450) k/uL ABG pH (7.35-7.45) Sodium (137-145) mmol/L Potassium (3.5-5.1) mmol/L Chloride (98-107) mmol/L BUN (9-20) mg/dL Creatinine (0.66-1.25) mg/dL Glucose (74-99) mg/dL POC Glucose (mg/dL) 71 L 354 H (75-99) mg/dL Calcium (8.4-10.2) mg/dL Alkaline Phosphatase (38-126) U/L Total Protein (6.3-8.2) g/dL Urine Blood Small H (Negative) Urine Bacteria Rare H (None) /hpf Urine Mucus Rare H (None) /hpf 02/04/20 02/04/20 02/05/20 Range/Units 21:31 23:37 04:50 RBC 3.69 L (4.30-5.90) m/uL Hgb 11.4 L (13.0-17.5) gm/dL Hct 34.3 L (39.0-53.0) % Plt Count 79 L (150-450) k/uL ABG pH (7.35-7.45) Sodium (137-145) mmol/L Potassium (3.5-5.1) mmol/L Chloride (98-107) mmol/L BUN (9-20) mg/dL Creatinine (0.66-1.25) mg/dL Glucose (74-99) mg/dL POC Glucose (mg/dL) 327 H 299 H (75-99) mg/dL Calcium (8.4-10.2) mg/dL Alkaline Phosphatase (38-126) U/L Total Protein (6.3-8.2) g/dL Urine Blood (Negative) Urine Bacteria (None) /hpf Urine Mucus (None) /hpf 02/05/20 02/05/20 02/05/20 Range/Units 04:50 06:05 07:27 RBC (4.30-5.90) m/uL Hgb (13.0-17.5) gm/dL Hct (39.0-53.0) % Plt Count (150-450) k/uL ABG pH 7.33 L (7.35-7.45) Sodium 124 L (137-145) mmol/L Potassium 5.4 H (3.5-5.1) mmol/L Chloride 92 L (98-107) mmol/L BUN 69 H (9-20) mg/dL Creatinine 3.14 H (0.66-1.25) mg/dL Glucose 238 H (74-99) mg/dL POC Glucose (mg/dL) 286 H (75-99) mg/dL Calcium 7.7 L (8.4-10.2) mg/dL Alkaline Phosphatase 137 H (38-126) U/L Total Protein 5.6 L (6.3-8.2) g/dL Urine Blood (Negative) Urine Bacteria (None) /hpf Urine Mucus (None) /hpf Microbiology - Last 24 Hours (Table) 02/04/20 05:12 Gram Stain - Preliminary Sputum Sputum Culture - Preliminary 02/03/20 17:30 Body Fluid Culture - Preliminary Pleural Fluid Assessment and Plan (1) Congestive heart failure Current Visit: Yes Status: Acute Code(s): I50.9 - HEART FAILURE, UNSPECIFIED SNOMED Code(s): 30968784 (2) Hyperglycemia Current Visit: Yes Status: Acute Code(s): R73.9 - HYPERGLYCEMIA, UNSPECIFIED SNOMED Code(s): 98193569 (3) Hyponatremia Current Visit: Yes Status: Acute Code(s): E87.1 - HYPO-OSMOLALITY AND HYPONATREMIA SNOMED Code(s): 82487634 (4) Respiratory failure Current Visit: No Status: Acute Code(s): J96.90 - RESPIRATORY FAILURE, UNSP, UNSP W HYPOXIA OR HYPERCAPNIA SNOMED Code(s): 342142036 Plan: I suspect repeat bronchoscopy will need to be done. Prognosis is guarded secondary to his multiple comorbidities. Continue respiratory support. We'll continue to follow with appropriate eye see management.
[2020-02-05] MEDS ORDERED: TOLVAPTAN 15 MG 1/2 TABLET PO ONE (10:00)
[2020-02-05] MEDS: METOPROLOL SUCCINATE (ER) 25 MG TAB.ER.24H PO SCH (10:28)
[2020-02-05] MEDS: PREGABALIN 100 MG CAP PO SCH ×2 (10:28→20:49)
[2020-02-05] MEDS: ISOSORBIDE MONONITRATE ER 30 MG TAB.ER.24H PO SCH (10:28)
[2020-02-05] MEDS: FUROSEMIDE 10 MG/ML 4 ML VIAL IV SCH (10:28)
[2020-02-05] MEDS: ENOXAPARIN 30 MG/0.3 ML SYRINGE SQ SCH (10:28)
[2020-02-05] MEDS: DOXYCYCLINE 100 MG CAP PO SCH ×2 (10:29→20:49)
--- NOTE | 2020-02-05 12:04 | P.PN ---
Subjective Progress Note Date: 02/05/20 HISTORY OF PRESENT ILLNESS: Patient examined this morning at the bedside in the ICU. Patient was extubated yesterday. He remains on IV Lasix 40 mg every 12 hours and IV dobutamine. Blood pressure 133/82. Creatinine 3.14 today. Fluid balance over the last 24 hours is -1400 mL. Chest x-ray today reveals complete opacification left hemithorax with abrupt termination of the left mainstem bronchus. PHYSICAL EXAM: VITAL SIGNS: Reviewed. GENERAL: Well-developed in no acute distress. NECK: Supple. No JVD or thyromegaly LUNGS: Respirations even and unlabored. Lungs diminished. HEART: Regular rate and rhythm. S1 and S2 heard. EXTREMITIES: Normal range of motion. No clubbing or cyanosis. Peripheral pulses intact. 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 Monitor kidney function Daily weight Accurate I&O Nurse practitioner note has been reviewed by physician. Signing provider agrees with the documented findings, assessment, and plan of care. Objective - Vital Signs Vital signs: Vital Signs Temp 97.9 F 02/05/20 08:00 Pulse 65 02/05/20 09:00 Resp 17 02/05/20 09:00 BP 146/107 02/05/20 08:30 Pulse Ox 95 02/05/20 09:00 Intake & Output 02/04/20 02/05/20 02/05/20 18:59 06:59 18:59 Intake Total 740 970 60 Output Total 1430 1755 735 Balance -586 -785 -675 Weight 58.9 kg 61.2 kg Intake: IV 260 220 60 0.9% NS KVO 260 220 60 Oral 480 750 Output: Urine 1430 1755 735 Other: Voiding Method Indwelling Catheter Indwelling Catheter Indwelling Catheter ABP, PAP, CO, CI - Last Documented Arterial Blood Pressure 183/72 - Labs CBC & Chem 7: 02/05/20 04:50 02/05/20 04:50 Labs: Abnormal Lab Results - Last 24 Hours (Table) 02/04/20 02/04/20 02/04/20 Range/Units 14:00 17:09 21:25 RBC (4.30-5.90) m/uL Hgb (13.0-17.5) gm/dL Hct (39.0-53.0) % Plt Count (150-450) k/uL ABG pH (7.35-7.45) Sodium (137-145) mmol/L Potassium (3.5-5.1) mmol/L Chloride (98-107) mmol/L BUN (9-20) mg/dL Creatinine (0.66-1.25) mg/dL Glucose (74-99) mg/dL POC Glucose (mg/dL) 71 L 354 H (75-99) mg/dL Calcium (8.4-10.2) mg/dL Alkaline Phosphatase (38-126) U/L Total Protein (6.3-8.2) g/dL Urine Blood Small H (Negative) Urine Bacteria Rare H (None) /hpf Urine Mucus Rare H (None) /hpf 02/04/20 02/04/20 02/05/20 Range/Units 21:31 23:37 04:50 RBC 3.69 L (4.30-5.90) m/uL Hgb 11.4 L (13.0-17.5) gm/dL Hct 34.3 L (39.0-53.0) % Plt Count 79 L (150-450) k/uL ABG pH (7.35-7.45) Sodium (137-145) mmol/L Potassium (3.5-5.1) mmol/L Chloride (98-107) mmol/L BUN (9-20) mg/dL Creatinine (0.66-1.25) mg/dL Glucose (74-99) mg/dL POC Glucose (mg/dL) 327 H 299 H (75-99) mg/dL Calcium (8.4-10.2) mg/dL Alkaline Phosphatase (38-126) U/L Total Protein (6.3-8.2) g/dL Urine Blood (Negative) Urine Bacteria (None) /hpf Urine Mucus (None) /hpf 02/05/20 02/05/20 02/05/20 Range/Units 04:50 06:05 07:27 RBC (4.30-5.90) m/uL Hgb (13.0-17.5) gm/dL Hct (39.0-53.0) % Plt Count (150-450) k/uL ABG pH 7.33 L (7.35-7.45) Sodium 124 L (137-145) mmol/L Potassium 5.4 H (3.5-5.1) mmol/L Chloride 92 L (98-107) mmol/L BUN 69 H (9-20) mg/dL Creatinine 3.14 H (0.66-1.25) mg/dL Glucose 238 H (74-99) mg/dL POC Glucose (mg/dL) 286 H (75-99) mg/dL Calcium 7.7 L (8.4-10.2) mg/dL Alkaline Phosphatase 137 H (38-126) U/L Total Protein 5.6 L (6.3-8.2) g/dL Urine Blood (Negative) Urine Bacteria (None) /hpf Urine Mucus (None) /hpf Microbiology - Last 24 Hours (Table) 02/04/20 05:12 Gram Stain - Preliminary Sputum Sputum Culture - Preliminary 02/03/20 17:30 Body Fluid Culture - Preliminary Pleural Fluid
[2020-02-05 12:21] LABS: Glucose,Whole Blood 381 mg/dL (75-99)
--- NOTE | 2020-02-05 12:49 | PN ---
PROGRESS NOTE PULMONARY/CRITICAL CARE PROGRESS NOTE: DATE OF SERVICE: 02/05/2020 Critical care time is 32 minutes. This is a 59-year-old gentleman admitted on February 02, 2020. He was seen by my partner and evaluation initially. He was actually admitted on 02/02/2020. He came in with complaints of increasing shortness of breath and findings on chest x-ray of heart failure. He was admitted initially to [address] [place] [address] and was transferred to the ICU on February 02 when he was found to be poorly responsive and cyanotic. The patient was intubated on February 03, 2020. He remained on the ventilator. Yesterday, when we saw him. Because he was doing so well because his weaning parameters were excellent and he was awake and alert, with a positive cuff leak, we did end up extubating him yesterday. Currently, he is on 6 L nasal cannula. He is on dobutamine at 2.5 mcg/kg per minute and saline at 20 mL an hour. Blood gases show a pO2 of 87, pCO2 of 43 and a pH of 7.33. The chest x-ray shows collapse of the left lung. There probably is a small left- sided pleural effusion. He had previous thoracentesis with only 150 mL removed. Also, bronchoscopy revealed a left-sided mucus plug. Anyway, we are going to be conservative with him with chest physiotherapy and incentive spirometry to see if we cannot pop open that left lung. If not, he will need bronchoscopy. Anyway, the patient is awake and alert. Still smoking about a pack and half a day. Current vital signs are reviewed. His temperature is 97.9, heart rate 65, respiratory rate 17, blood pressure 146/107, mean 120, and saturations are 95%-97% on 6 L. Appears in no acute distress. HEENT: Examination is grossly unremarkable. Nasal O2 in place. NECK: Supple full range of motion. No adenopathy. Neck veins are flat. CARDIOVASCULAR: Examination reveals regular rhythm and rate. Heart rate 80 beats per minute. S1, S2 normal. No S3, S4, or murmur. LUNGS: Reveal diminished breath sounds on the left. A few scattered rhonchi bilaterally. No wheezes or crackles. ABDOMEN: Soft, bowel sounds are heard. EXTREMITIES: Intact. No cyanosis, clubbing, or edema. SKIN: Without rash. NEUROLOGIC: Examination is nonfocal. LABS: Reviewed. White count 3.9, hemoglobin 11.4, hematocrit 34.3, platelet count 79,000. Again blood gases show pO2 of 87, pCO2 43 and a pH of 7.33. This is consistent with a very mild metabolic acidosis. Sodium 124, potassium 5.4, chloride is 92, CO2 is 23, anion gap is 9. BUN and creatinine were 69 and 3.14. Calcium 7.7, total protein is 5.6. BUN and creatinine yesterday were 58 and 2.67. Microbiology is negative. Chest x-ray shows lung collapse. There is a nice cutoff sign from the distal left mainstem. MEDICATIONS: Reviewed. Currently, he is on Lipitor, dobutamine, doxycycline, Lovenox, Lasix which I will stop, insulin, DuoNeb, Imdur, Solu-Medrol, metoprolol, Narcan, nicotine patch, Protonix, Lyrica, and tolvaptan. ASSESSMENT: 1. Acute on chronic hypoxemic and hypercapnic respiratory failure, with intubation on February 02 and successful extubation on February 04, 2020. 2. Acute on chronic systolic congestive heart failure. 3. History of severe underlying COPD. 4. 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 5. Left lung collapse. 6. Acute kidney injury. 7. Severe systolic left ventricular dysfunction. 8. Essential hypertension. 9. Hyperlipidemia. 10.Type 2 diabetes with diabetic peripheral neuropathy. 11.History of gastroesophageal reflux disease. 12.Nonischemic cardiomyopathy, status post AICD placement. 13.History of chronic pancreatitis with pancreatic exocrine insufficiency. 14.History of pancreatic pseudocyst. PLAN: The patient had a daily interruption of sedation yesterday. We were able to successfully extubate him yesterday. Blood gases today show very mild metabolic acidosis. Will stop the Lasix as his renal function continues to worsen. The patient is still on dobutamine at 2.5 mcg/kg per minute. Will continue with incentive spirometer and chest physiotherapy to the left lung. He may need a bronchoscopy. Will also go ahead and continue his updrafts and also add some Pulmicort and formoterol. Critical care time 32 minutes. MMODL / IJN: [id number] /
--- NOTE | 2020-02-05 14:19 | PN ---
PROGRESS NOTE Patient is seen for followup for acute kidney injury, mostly cardiorenal. Patient is maintained on IV Lasix. He is also on dobutamine. Urine output is about 150-200 mL an hour. Patient was extubated yesterday. He currently complains of some shortness of breath which is not worsened. He is maintained on oxygen via nasal cannula. Serum creatinine increased to 3.4 from 2.67 yesterday. The patient has also developed right lung collapse again. He did have bronchoscopy with removal of mucus plug a few days ago. PHYSICAL EXAMINATION: On examination today, blood pressure is 133/82, heart rate 79 per minute, he is afebrile. Examination of the heart S1, S2. Examination of the lungs, bronchial breath sounds. Decreased breath sounds heard on the right side. Decreased breath sounds left base. Abdomen is soft, nontender. Examination of the lower extremities shows trace edema bilaterally. TELEVISION ENGINEER exam grossly intact. LAB: Show sodium 124, potassium 5.4, chloride 92. BUN 69, serum creatinine 3.1, hemoglobin 11.4 g/dL. ASSESSMENT: 1. Acute kidney injury, cardiorenal from and associated with hemodynamic instability with atrial fibrillation with RVR. The serum creatinine is significantly worse today. The patient remains on IV Lasix 40 mg q.12 hours. He has had good urine output. I will decrease the Lasix to once a day and continue to avoid nephrotoxic medications. 2. Chronic kidney disease secondary to nephrosclerosis and diabetic nephropathy, NKF stage III, with previous creatinine 1.3-1.5 in September and April of 2019. 3. Cardiomyopathy, ejection fraction 25%-30%. 4. Collapsed right lung, most likely secondary to mucus plug again, started on chest physiotherapy and possible bronch if not improved. 5. Hyponatremia which is hypervolemic and also associated with dobutamine, which is which has a base of D5W. I will continue with the IV Lasix and add a dose of Samsca. The patient should be maintained on some degree of free water restriction. PLAN: Samsca 15 mg p.o. x1 today. Continue with IV Lasix, decreased to once a day and repeat labs in a.m. MMODL / IJN: [id number] /
[2020-02-05 16:57] LABS: Glucose,Whole Blood 418 mg/dL (75-99)
[2020-02-05] MEDS ORDERED: INSULIN REGULAR BOLUS (FROM DRIP BAG) IV PRN ×2 (17:03→17:11)
[2020-02-05] MEDS: DOBUTamine DRIP 500 MG in DEXTROSE/WATER 1 250ML.BAG IV SCH (17:19)
[2020-02-05] MEDS: INSULIN REGULAR 100 UNIT in SODIUM CHLORIDE 0.9% 100 ML IV SCH (17:55)
[2020-02-05 18:31] LABS: Glucose,Whole Blood 436 mg/dL (75-99)
[2020-02-05 19:04] LABS: Glucose,Whole Blood 338 mg/dL (75-99)
[2020-02-05 20:05] LABS: Glucose,Whole Blood 182 mg/dL (75-99)
[2020-02-05] MEDS: ATORVASTATIN 10 MG TAB PO SCH (20:48)
[2020-02-05] MEDS: FUROSEMIDE 10 MG/ML 2 ML VIAL IV SCH (20:48)
[2020-02-05] MEDS: BUDESONIDE 1 MG/2 ML NEBU INHALATION SCH (20:54)
[2020-02-05] MEDS: FORMOTEROL FUMARATE 20 MCG/2 ML NEBU INHALATION SCH (20:54)
[2020-02-05 21:41] LABS: Glucose,Whole Blood 69 mg/dL (75-99)
[2020-02-05 21:54] LABS: Glucose,Whole Blood 60 mg/dL (75-99)
[2020-02-05 22:30] LABS: Glucose,Whole Blood 113 mg/dL (75-99)
[2020-02-05 23:03] LABS: Glucose,Whole Blood 138 mg/dL (75-99)
[2020-02-05 23:32] LABS: Glucose,Whole Blood 148 mg/dL (75-99)
[2020-02-06] MEDS: IPRATROPIUM-ALBUTEROL 3 ML NEB INHALATION SCH ×6 (01:15→20:29)
[2020-02-06 01:26] LABS: Glucose,Whole Blood 120 mg/dL (75-99)
[2020-02-06 02:13] LABS: Glucose,Whole Blood 133 mg/dL (75-99)
[2020-02-06 03:11] LABS: Glucose,Whole Blood 166 mg/dL (75-99)
[2020-02-06 04:24] LABS: HGB 10.8 gm/dL (13.0-17.5); MCH 30.9 pg (25.0-35.0); MCHC 33.7 g/dL (31.0-37.0); MCV 91.6 fL (80.0-100.0); Mean Platelet Volume 9.9; RBC 3.49 m/uL (4.30-5.90); RDW 14.2 % (11.5-15.5); WBC 3.7 k/uL (3.8-10.6)
[2020-02-06 04:41] LABS: Glucose,Whole Blood 188 mg/dL (75-99)
[2020-02-06 04:43] LABS: Albumin 3.8 g/dL (3.5-5.0); Calcium 7.5 mg/dL (8.4-10.2); Potassium 4.7 mmol/L (3.5-5.1); Total Bilirubin 0.5 mg/dL (0.2-1.3); Total Protein 5.8 g/dL (6.3-8.2)
[2020-02-06 04:45] LABS: Platelet Count 74 k/uL (150-450)
[2020-02-06 05:16] LABS: Glucose,Whole Blood 164 mg/dL (75-99)
[2020-02-06 06:17] LABS: Glucose,Whole Blood 137 mg/dL (75-99)
[2020-02-06] MEDS: methylPREDNISolone SOD SUCCI 40 MG/ML 1 ML VIAL IV SCH (06:40)
[2020-02-06] MEDS: INSULIN DETEMIR (LEVEMIR) 100 UNIT/ML SYR SQ SCH (06:40)
[2020-02-06] MEDS: LIPASE 5,000/PROTEASE 17,000/AMYLASE 24,000 PO SCH (06:40)
[2020-02-06 06:59] LABS: Glucose,Whole Blood 145 mg/dL (75-99)
--- NOTE | 2020-02-06 07:22 | XR ---
EXAMINATION TYPE: XR chest 1V portable DATE OF EXAM: 02/06/2020 Comparison: 02/05/2020 Clinical History: 59-year-old male Tube placement Findings: Right subclavian CVC tip in the right atrium. Of note, the proximal portion of the catheter is kinked , probably positional. Continued white out of the left hemithorax. Only a tiny portion at the apex is now aerated. Small right effusion. Mild interstitial densities throughout the right lung. Left anter ior chest wall AICD generator with right ventricular lead. Impression: 1. Continued white out of the left hemithorax now with only a tiny portion in the left apex aerated. 2. Small right effusion. Interstitial change on the right could reflect pulmonary vascular congestion . 3. Note that the proximal portion of the right subclavian CVC is kinked. This is new from 02/05/2020 and probably positional. Clinically correlate.
[2020-02-06] MEDS: FORMOTEROL FUMARATE 20 MCG/2 ML NEBU INHALATION SCH (07:56)
[2020-02-06] MEDS: BUDESONIDE 1 MG/2 ML NEBU INHALATION SCH (07:56)
[2020-02-06 07:58] LABS: Glucose,Whole Blood 225 mg/dL (75-99)
[2020-02-06] MEDS: INSULIN REGULAR 100 UNIT in SODIUM CHLORIDE 0.9% 100 ML IV SCH (07:58)
[2020-02-06 08:40] LABS: Glucose,Whole Blood 276 mg/dL (75-99)
[2020-02-06 09:57] LABS: Glucose,Whole Blood 229 mg/dL (75-99)
[2020-02-06] MEDS: DOXYCYCLINE 100 MG CAP PO SCH (10:08)
[2020-02-06] MEDS: PREGABALIN 100 MG CAP PO SCH ×2 (10:08→20:48)
[2020-02-06 10:19] LABS: Calcium 7.3 mg/dL (8.4-10.2); Potassium 4.4 mmol/L (3.5-5.1)
--- NOTE | 2020-02-06 10:29 | P.PN ---
Subjective Principal diagnosis: CHF with COPD element The patient is a 59-year-old white male with known history of chronic back otitis diabetes CHF and COPD. The patient is mechanically ventilated at this time and has recently undergone bronchoscope for mucus plugging. Patient tolerated the procedure well. However, minimal mucus and fluid was removed. I suspect he might need a repeat procedure today to clear the left lung as the x-ray does show significant white out. Objective - Vital Signs Vital signs: Vital Signs Temp 97.6 F 02/06/20 08:00 Pulse 78 02/06/20 10:00 Resp 33 H 02/06/20 10:00 BP 122/66 02/06/20 10:00 Pulse Ox 96 02/06/20 10:00 Intake & Output 02/05/20 02/06/20 02/06/20 18:59 06:59 18:59 Intake Total 1314.596 812.787 86.765 Output Total 2165 1595 450 Balance -850.404 -782.213 -363.235 Weight 63.5 kg Intake: IV 240 260 60 0.9% NS KVO 240 260 60 Intake, IV Titration 234.596 82.787 26.765 Amount DOBUTamine DRIP 500 mg In 234.596 Dextrose/Water 1 250ml. bag @ 5 MCG/KG/MIN 9.915 mls/hr IV .Q24H [facility] Rx#: [id number] Insulin Regular 100 unit 82.787 26.765 In Sodium Chloride 0.9% 100 ml @ Per Protocol IV .Q0M [facility] Rx#:[id number] Oral 840 470 Output: Urine 2165 1595 450 Other: Voiding Method Indwelling Catheter Indwelling Catheter Indwelling Catheter ABP, PAP, CO, CI - Last Documented Arterial Blood Pressure 183/72 - Constitutional General appearance: Present: thin - EENT Eyes: Absent: anicteric sclerae - Neck Neck: Present: lymphadenopathy - Respiratory Respiratory: right: diminished, left: dullness - Cardiovascular Rhythm: regular Heart sounds: normal: S1, S2 Abnormal Heart Sounds: Absent: S3 Gallop - Gastrointestinal General gastrointestinal: Present: soft. Absent: tenderness - Integumentary Integumentary: Absent: cellulitis - Psychiatric Psychiatric: Present: appropriate affect - Labs CBC & Chem 7: 02/06/20 03:07 02/06/20 09:13 Labs: Abnormal Lab Results - Last 24 Hours (Table) 02/05/20 02/05/20 02/05/20 Range/Units 12:19 16:55 18:29 WBC (3.8-10.6) k/uL RBC (4.30-5.90) m/uL Hgb (13.0-17.5) gm/dL Hct (39.0-53.0) % Plt Count (150-450) k/uL Sodium (137-145) mmol/L Chloride (98-107) mmol/L BUN (9-20) mg/dL Creatinine (0.66-1.25) mg/dL Glucose (74-99) mg/dL POC Glucose (mg/dL) 381 H 418 H 436 H (75-99) mg/dL Calcium (8.4-10.2) mg/dL Total Protein (6.3-8.2) g/dL 02/05/20 02/05/20 02/05/20 Range/Units 19:03 20:03 21:40 WBC (3.8-10.6) k/uL RBC (4.30-5.90) m/uL Hgb (13.0-17.5) gm/dL Hct (39.0-53.0) % Plt Count (150-450) k/uL Sodium (137-145) mmol/L Chloride (98-107) mmol/L BUN (9-20) mg/dL Creatinine (0.66-1.25) mg/dL Glucose (74-99) mg/dL POC Glucose (mg/dL) 338 H 182 H 69 L (75-99) mg/dL Calcium (8.4-10.2) mg/dL Total Protein (6.3-8.2) g/dL 02/05/20 02/05/20 02/05/20 Range/Units 21:52 22:28 23:02 WBC (3.8-10.6) k/uL RBC (4.30-5.90) m/uL Hgb (13.0-17.5) gm/dL Hct (39.0-53.0) % Plt Count (150-450) k/uL Sodium (137-145) mmol/L Chloride (98-107) mmol/L BUN (9-20) mg/dL Creatinine (0.66-1.25) mg/dL Glucose (74-99) mg/dL POC Glucose (mg/dL) 60 L 113 H 138 H (75-99) mg/dL Calcium (8.4-10.2) mg/dL Total Protein (6.3-8.2) g/dL 02/05/20 02/06/20 02/06/20 Range/Units 23:31 01:23 02:12 WBC (3.8-10.6) k/uL RBC (4.30-5.90) m/uL Hgb (13.0-17.5) gm/dL Hct (39.0-53.0) % Plt Count (150-450) k/uL Sodium (137-145) mmol/L Chloride (98-107) mmol/L BUN (9-20) mg/dL Creatinine (0.66-1.25) mg/dL Glucose (74-99) mg/dL POC Glucose (mg/dL) 148 H 120 H 133 H (75-99) mg/dL Calcium (8.4-10.2) mg/dL Total Protein (6.3-8.2) g/dL 02/06/20 02/06/20 02/06/20 Range/Units 03:07 03:07 03:10 WBC 3.7 L (3.8-10.6) k/uL RBC 3.49 L (4.30-5.90) m/uL Hgb 10.8 L (13.0-17.5) gm/dL Hct 32.0 L (39.0-53.0) % Plt Count 74 L (150-450) k/uL Sodium 126 L (137-145) mmol/L Chloride 90 L (98-107) mmol/L BUN 84 H (9-20) mg/dL Creatinine 3.34 H (0.66-1.25) mg/dL Glucose 153 H (74-99) mg/dL POC Glucose (mg/dL) 166 H (75-99) mg/dL Calcium 7.5 L (8.4-10.2) mg/dL Total Protein 5.8 L (6.3-8.2) g/dL 02/06/20 02/06/20 02/06/20 Range/Units 04:39 05:14 06:15 WBC (3.8-10.6) k/uL RBC (4.30-5.90) m/uL Hgb (13.0-17.5) gm/dL Hct (39.0-53.0) % Plt Count (150-450) k/uL Sodium (137-145) mmol/L Chloride (98-107) mmol/L BUN (9-20) mg/dL Creatinine (0.66-1.25) mg/dL Glucose (74-99) mg/dL POC Glucose (mg/dL) 188 H 164 H 137 H (75-99) mg/dL Calcium (8.4-10.2) mg/dL Total Protein (6.3-8.2) g/dL 02/06/20 02/06/20 02/06/20 Range/Units 06:58 07:57 08:39 WBC (3.8-10.6) k/uL RBC (4.30-5.90) m/uL Hgb (13.0-17.5) gm/dL Hct (39.0-53.0) % Plt Count (150-450) k/uL Sodium (137-145) mmol/L Chloride (98-107) mmol/L BUN (9-20) mg/dL Creatinine (0.66-1.25) mg/dL Glucose (74-99) mg/dL POC Glucose (mg/dL) 145 H 225 H 276 H (75-99) mg/dL Calcium (8.4-10.2) mg/dL Total Protein (6.3-8.2) g/dL 02/06/20 02/06/20 Range/Units 09:13 09:52 WBC (3.8-10.6) k/uL RBC (4.30-5.90) m/uL Hgb (13.0-17.5) gm/dL Hct (39.0-53.0) % Plt Count (150-450) k/uL Sodium 127 L (137-145) mmol/L Chloride 90 L (98-107) mmol/L BUN 85 H (9-20) mg/dL Creatinine 3.48 H (0.66-1.25) mg/dL Glucose 233 H (74-99) mg/dL POC Glucose (mg/dL) 229 H (75-99) mg/dL Calcium 7.3 L (8.4-10.2) mg/dL Total Protein (6.3-8.2) g/dL Microbiology - Last 24 Hours (Table) 02/04/20 05:12 Gram Stain - Final Sputum Sputum Culture - Final 02/03/20 17:30 Gram Stain - Preliminary Pleural Fluid Body Fluid Culture - Preliminary Alpha Hemolytic Streptococcus Gram Neg Bacilli Assessment and Plan (1) Congestive heart failure Current Visit: Yes Status: Acute Code(s): I50.9 - HEART FAILURE, UNSPECIFIED SNOMED Code(s): 95203489 (2) Hyperglycemia Current Visit: Yes Status: Acute Code(s): R73.9 - HYPERGLYCEMIA, UNSPECIFIED SNOMED Code(s): 75857310 (3) Hyponatremia Current Visit: Yes Status: Acute Code(s): E87.1 - HYPO-OSMOLALITY AND HYPONATREMIA SNOMED Code(s): 65143412 (4) Respiratory failure Current Visit: No Status: Acute Code(s): J96.90 - RESPIRATORY FAILURE, UNSP, UNSP W HYPOXIA OR HYPERCAPNIA SNOMED Code(s): 518231351 Plan: Continue supportive care Check CBC and CMP in the a.m. Prognosis is guarded secondary to his multiple comorbidities. Continue respiratory support. I suspect he might need repeat bronchoscopy today given his x-ray findings of the chest. Time with Patient: Greater than 30
[2020-02-06 10:55] LABS: Glucose,Whole Blood 124 mg/dL (75-99)
--- NOTE | 2020-02-06 11:29 | PN ---
PROGRESS NOTE PULMONARY/CRITICAL CARE PROGRESS NOTE DATE OF SERVICE: February 06, 2020. 59-year-old gentleman who was admitted on February 01. He was seen by my partner initially and evaluated. He was admitted on the . She came in with complaints of increasing shortness of breath and findings on chest x-ray of congestive heart failure. He was initially admitted to [address] [place] [address] and transferred to ICU on February 02. He was there, found to be poorly responsive and quite cyanotic. The patient was intubated and transferred to the ICU on the . He has remained on the ventilator until recently, at which time, we were able to extubate him. He was extubated successfully on February 03. Currently, his chest x-ray showing left lung collapse. We are going to try to do bronchoscopy on him today. We attempted incentive spirometry and chest physiotherapy, but that has not seemed to pop open that left lung. Currently, Mr. Choudhury is on 5 L nasal cannula. He is getting saline at 20 mL an hour and insulin at 16 units an hour. Dobutamine was recently discontinued by Cardiology. Currently, the patient is sitting up in bed. Awake and alert. He is not demonstrating any difficulty. Today we described what the procedure is. PHYSICAL EXAMINATION: VITAL SIGNS: Current vital signs are reviewed temperature 97.6 heart rate 79, respiratory rate 24, blood pressure 137/77, mean 97, 6 L saturation 97%. Appears in no acute distress. HEENT: Examination is grossly unremarkable. Nasal O2 in place. NECK: Supple full range of motion. No adenopathy. Neck veins are flat. CARDIOVASCULAR: Examination reveals regular rhythm rate. Heart rate 79 beats per minute. S1, S2 normal. No S3, S4, or murmur. LUNGS: Reveal diminished breath sounds on the left. A few scattered rhonchi on the right. No wheezes or crackles. ABDOMEN: Soft. EXTREMITIES: are intact. No cyanosis, clubbing, or edema. SKIN: Without rash. NEUROLOGIC: Examination is nonfocal. LABS: The labs are reviewed. White count 3.7, hemoglobin 10.8, hematocrit 32.0, platelet count 74,000. Sodium 126, potassium 4.7, chloride 90, CO2, 24, anion gap is 12. BUN and creatinine were 84 and 3.34. Microbiology is showing alpha hemolytic strep from the pleural fluid. Sensitivities have not been done. There is apparently also gram-negative bacilli in the pleural fluid. Chest x-ray continues to show near-complete opacification of the left hemithorax. There is a small right-sided pleural effusion. CURRENT MEDICATIONS: Reviewed. He is on Lipitor, Pulmicort, doxycycline, Lovenox, formoterol, insulin, DuoNeb, Imdur, Zenpep, Solu-Medrol metoprolol, Narcan, nicotine patch, Protonix, Lyrica, and 1 dose of tolvaptan. ASSESSMENT: 1. Acute on chronic hypoxemic and hypercapnic respiratory failure, with intubation on February 02 and successful extubation on February 04, 2020. 2. Acute on chronic systolic congestive heart failure. 3. History of severe underlying COPD. 4. 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 5. Left lung collapse, with anticipated bronchoscopy today. 6. Acute kidney injury. 7. Severe systolic left ventricular dysfunction. 8. Essential hypertension. 9. Hyperlipidemia. 10.Type 2 diabetes mellitus with diabetic neuropathy. 11.History of gastroesophageal reflux disease. 12.Nonischemic cardiomyopathy, status post AICD placement. 13.History of chronic pancreatitis with pancreatic exocrine insufficiency. 14.History of pancreatic pseudocyst. 15.Pleural space infection secondary to alpha hemolytic Streptococcus and gram- negative bacilli. PLAN: The antibiotics will be broadened. Additional recommendations and suggestions are forthcoming. Bronchoscopy today. Medications are reviewed. Solu-Medrol, will be switched to oral prednisone. No additional recommendations are made. Prognosis is guarded. We will continue to follow. MMODL / IJN: [id number] /
--- NOTE | 2020-02-06 11:59 | P.PN ---
Subjective Progress Note Date: 02/06/20 HISTORY OF PRESENT ILLNESS: Patient examined this morning at the bedside in the ICU. The patient denies chest pain or pressure. Denies shortness of breath. He remains on nasal cannula. Chest x-ray this morning continues to reveal left- sided whiteout. There are plans for bronchoscopy today. Patient remains on dobutamine. Blood pressure stable. Patient's Lasix was decreased to 20 mg IV every 12 hours yesterday. Creatinine 3.48 today. PHYSICAL EXAM: VITAL SIGNS: Reviewed. GENERAL: Well-developed in no acute distress. NECK: Supple. No JVD or thyromegaly LUNGS: Respirations even and unlabored. Lungs diminished. HEART: Regular rate and rhythm. S1 and S2 heard. EXTREMITIES: Normal range of motion. No clubbing or cyanosis. Peripheral pulses intact. No lower extremity edema ASSESSMENT: Acute on chronic hypoxic and hypercapnic respiratory failure requiring mechanical ventilation Acute exacerbation of systolic congestive heart failure Acute on chronic kidney disease Hypertension Hyperlipidemia Diabetes minus, type II History of nonischemic cardiomyopathy with previous AICD placement, EF 25-30% PLAN: Patient to undergo bronchoscopy today per pulmonary Discontinue Dobutamine Discontinue Lasix today secondary to worsening kidney function. Repeat BMP in a.m. Monitor kidney function Daily weight Accurate I&O Nurse practitioner note has been reviewed by physician. Signing provider agrees with the documented findings, assessment, and plan of care. Objective - Vital Signs Vital signs: Vital Signs Temp 97.6 F 02/06/20 08:00 Pulse 78 02/06/20 11:34 Resp 33 H 02/06/20 10:00 BP 122/66 02/06/20 10:00 Pulse Ox 96 02/06/20 10:00 Intake & Output 02/05/20 02/06/20 02/06/20 18:59 06:59 18:59 Intake Total 1314.596 812.787 96.865 Output Total 2165 1595 450 Balance -850.404 -782.213 -353.135 Weight 63.5 kg Intake: IV 240 260 60 0.9% NS KVO 240 260 60 Intake, IV Titration 234.596 82.787 36.865 Amount DOBUTamine DRIP 500 mg In 234.596 Dextrose/Water 1 250ml. bag @ 5 MCG/KG/MIN 9.915 mls/hr IV .Q24H [facility] Rx#: [id number] Insulin Regular 100 unit 82.787 36.865 In Sodium Chloride 0.9% 100 ml @ Per Protocol IV .Q0M [facility] Rx#:[id number] Oral 840 470 Output: Urine 2165 1595 450 Other: Voiding Method Indwelling Catheter Indwelling Catheter Indwelling Catheter ABP, PAP, CO, CI - Last Documented Arterial Blood Pressure 183/72 - Labs CBC & Chem 7: 02/06/20 03:07 02/06/20 09:13 Labs: Abnormal Lab Results - Last 24 Hours (Table) 02/05/20 02/05/20 02/05/20 Range/Units 12:19 16:55 18:29 WBC (3.8-10.6) k/uL RBC (4.30-5.90) m/uL Hgb (13.0-17.5) gm/dL Hct (39.0-53.0) % Plt Count (150-450) k/uL Sodium (137-145) mmol/L Chloride (98-107) mmol/L BUN (9-20) mg/dL Creatinine (0.66-1.25) mg/dL Glucose (74-99) mg/dL POC Glucose (mg/dL) 381 H 418 H 436 H (75-99) mg/dL Calcium (8.4-10.2) mg/dL Total Protein (6.3-8.2) g/dL 02/05/20 02/05/20 02/05/20 Range/Units 19:03 20:03 21:40 WBC (3.8-10.6) k/uL RBC (4.30-5.90) m/uL Hgb (13.0-17.5) gm/dL Hct (39.0-53.0) % Plt Count (150-450) k/uL Sodium (137-145) mmol/L Chloride (98-107) mmol/L BUN (9-20) mg/dL Creatinine (0.66-1.25) mg/dL Glucose (74-99) mg/dL POC Glucose (mg/dL) 338 H 182 H 69 L (75-99) mg/dL Calcium (8.4-10.2) mg/dL Total Protein (6.3-8.2) g/dL 02/05/20 02/05/2002/04/20 Range/Units 21:52 22:28 23:02 WBC (3.8-10.6) k/uL RBC (4.30-5.90) m/uL Hgb (13.0-17.5) gm/dL Hct (39.0-53.0) % Plt Count (150-450) k/uL Sodium (137-145) mmol/L Chloride (98-107) mmol/L BUN (9-20) mg/dL Creatinine (0.66-1.25) mg/dL Glucose (74-99) mg/dL POC Glucose (mg/dL) 60 L 113 H 138 H (75-99) mg/dL Calcium (8.4-10.2) mg/dL Total Protein (6.3-8.2) g/dL 02/05/20 02/06/20 02/06/20 Range/Units 23:31 01:23 02:12 WBC (3.8-10.6) k/uL RBC (4.30-5.90) m/uL Hgb (13.0-17.5) gm/dL Hct (39.0-53.0) % Plt Count (150-450) k/uL Sodium (137-145) mmol/L Chloride (98-107) mmol/L BUN (9-20) mg/dL Creatinine (0.66-1.25) mg/dL Glucose (74-99) mg/dL POC Glucose (mg/dL) 148 H 120 H 133 H (75-99) mg/dL Calcium (8.4-10.2) mg/dL Total Protein (6.3-8.2) g/dL 02/06/20 02/06/20 02/06/20 Range/Units 03:07 03:07 03:10 WBC 3.7 L (3.8-10.6) k/uL RBC 3.49 L (4.30-5.90) m/uL Hgb 10.8 L (13.0-17.5) gm/dL Hct 32.0 L (39.0-53.0) % Plt Count 74 L (150-450) k/uL Sodium 126 L (137-145) mmol/L Chloride 90 L (98-107) mmol/L BUN 84 H (9-20) mg/dL Creatinine 3.34 H (0.66-1.25) mg/dL Glucose 153 H (74-99) mg/dL POC Glucose (mg/dL) 166 H (75-99) mg/dL Calcium 7.5 L (8.4-10.2) mg/dL Total Protein 5.8 L (6.3-8.2) g/dL 02/06/20 02/06/20 02/06/20 Range/Units 04:39 05:14 06:15 WBC (3.8-10.6) k/uL RBC (4.30-5.90) m/uL Hgb (13.0-17.5) gm/dL Hct (39.0-53.0) % Plt Count (150-450) k/uL Sodium (137-145) mmol/L Chloride (98-107) mmol/L BUN (9-20) mg/dL Creatinine (0.66-1.25) mg/dL Glucose (74-99) mg/dL POC Glucose (mg/dL) 188 H 164 H 137 H (75-99) mg/dL Calcium (8.4-10.2) mg/dL Total Protein (6.3-8.2) g/dL 02/06/20 02/06/20 02/06/20 Range/Units 06:58 07:57 08:39 WBC (3.8-10.6) k/uL RBC (4.30-5.90) m/uL Hgb (13.0-17.5) gm/dL Hct (39.0-53.0) % Plt Count (150-450) k/uL Sodium (137-145) mmol/L Chloride (98-107) mmol/L BUN (9-20) mg/dL Creatinine (0.66-1.25) mg/dL Glucose (74-99) mg/dL POC Glucose (mg/dL) 145 H 225 H 276 H (75-99) mg/dL Calcium (8.4-10.2) mg/dL Total Protein (6.3-8.2) g/dL 02/06/20 02/06/20 02/06/20 Range/Units 09:13 09:52 10:53 WBC (3.8-10.6) k/uL RBC (4.30-5.90) m/uL Hgb (13.0-17.5) gm/dL Hct (39.0-53.0) % Plt Count (150-450) k/uL Sodium 127 L (137-145) mmol/L Chloride 90 L (98-107) mmol/L BUN 85 H (9-20) mg/dL Creatinine 3.48 H (0.66-1.25) mg/dL Glucose 233 H (74-99) mg/dL POC Glucose (mg/dL) 229 H 124 H (75-99) mg/dL Calcium 7.3 L (8.4-10.2) mg/dL Total Protein (6.3-8.2) g/dL Microbiology - Last 24 Hours (Table) 02/04/20 05:12 Gram Stain - Final Sputum Sputum Culture - Final 02/03/20 17:30 Gram Stain - Preliminary Pleural Fluid Body Fluid Culture - Preliminary Alpha Hemolytic Streptococcus Gram Neg Bacilli
[2020-02-06 12:19] LABS: Glucose,Whole Blood 80 mg/dL (75-99)
[2020-02-06] MEDS: INSULIN ASPART (NovoLOG) 100 UNIT/ML VIAL SQ SCH ×3 (13:47→20:48)
[2020-02-06] MEDS: PIPERACILLIN-TAZOBACTAM 3.375 GM in SODIUM CHLORIDE 0.9% 100 ML IVPB SCH (14:14)
[2020-02-06] MEDS ORDERED: TOLVAPTAN 15 MG 1/2 TABLET PO ONE (15:04)
[2020-02-06] MEDS ORDERED: LIDOCAINE 1% INJ 10MG/ML (20 ML MDV) ONE (15:20)
[2020-02-06] MEDS ORDERED: SUCCINYLCHOLINE CHLORIDE 100 MG/5 ML SYR IV ONE (15:20)
[2020-02-06] MEDS ORDERED: fentaNYL (PF) 50 MCG/ML 2 ML AMP ONE (15:20)
[2020-02-06] MEDS ORDERED: PROPOFOL 10 MG/ML 20 ML VIAL IV ONE (15:20)
[2020-02-06] MEDS ORDERED: IV FLUID CONTINUATION 1,000 ML IV ONE (15:25)
--- NOTE | 2020-02-06 15:53 | PN ---
PROGRESS NOTE Patient is seen for followup for acute kidney injury. He has recently been diuresed for CHF exacerbation. Patient also has a collapsed left lung and is scheduled for bronchoscopy today. His ejection fraction is low and patient has been on dobutamine which is now discontinued. His EF is 25%-30%. Serum creatinine has been slowly increasing over the last 2-3 days with creatinine today up to 3.48 from 3.34 yesterday. Previous creatinine was 1.3 on 09/27/2019. PHYSICAL EXAMINATION: Today, patient is comfortable, awake, not in any acute distress. Blood pressure 102/61, heart rate 85 per minute, patient is afebrile. Examination of the heart S1, S2. Examination of the lungs, bilateral breath sounds are heard. Abdomen is soft, nontender. Examination of the lower extremities shows no evidence of edema. MANAGER COUNTRY exam grossly intact. LABS: Show sodium 127, potassium 4.4, BUN 85 serum creatinine 3.4, potassium 4.4. ASSESSMENT: 1. Hypervolemic hyponatremia, currently improved, status post Samsca. The patient was maintained on Lasix which is currently on hold now. 2. CHF acute on top of chronic mainly systolic. 3. Cardiomyopathy, ejection fraction 25%-30%. 4. Acute kidney injury, mostly cardiorenal and secondary to diuresis. Lasix is currently on hold. The patient's respiratory status should improve after the bronchoscopy. Repeat labs in a.m. No nephrotoxic agents on board and blood pressure has not been significantly low. PLAN: Repeat Samsca today. May hold off on Lasix and repeat labs in a.m. MMODL / IJN: [id number] /
[2020-02-06 15:59] LABS: Hemoglobin A1C 9.2 % (4.0-6.0)
[2020-02-06 16:14] LABS: Glucose,Whole Blood 79 mg/dL (75-99)
[2020-02-06 17:51] LABS: Appearance,BF Clear; Nucleated Cells, Body Fluid 15 /uL; RBC, Body Fluid 175 /uL
[2020-02-06 18:19] LABS: Glucose,Whole Blood 108 mg/dL (75-99)
[2020-02-06] MEDS: ISOSORBIDE MONONITRATE ER 30 MG TAB.ER.24H PO SCH (19:01)
[2020-02-06] MEDS: METOPROLOL SUCCINATE (ER) 25 MG TAB.ER.24H PO SCH (19:01)
[2020-02-06] MEDS: ENOXAPARIN 30 MG/0.3 ML SYRINGE SQ SCH (19:01)
[2020-02-06] MEDS: SYMBICORT 160-4.5 MCG INHALER INHALATION SCH (20:33)
[2020-02-06 20:35] LABS: Glucose,Whole Blood 303 mg/dL (75-99)
[2020-02-06] MEDS: ATORVASTATIN 10 MG TAB PO SCH (20:48)
[2020-02-06] MEDS: HYDROcodone/APAP 10-325MG 1 EACH TAB PO PRN (20:49)
[2020-02-07] MEDS: PIPERACILLIN-TAZOBACTAM 3.375 GM in SODIUM CHLORIDE 0.9% 100 ML IVPB SCH ×2 (00:50→12:30)
--- NOTE | 2020-02-07 02:04 | PCN ---
PROCEDURE NOTE PULMONARY/CRITICAL CARE PROCEDURE NOTE: PROCEDURE: Bronchoscopy, airway examination, therapeutic lavage, BAL left lower lobe. PREOPERATIVE DIAGNOSIS: Mucus plugs and lung collapse, left lung. POSTOPERATIVE DIAGNOSIS: Mucus plugs and lung collapse, left lung. MICROFILM MOUNTER: Dr. Ray. DESCRIPTION OF PROCEDURE: There was informed consent and universal timeout. The patient's procedure was done in room #1. Anesthesia provided general anesthesia. After the patient was adequately sedated and under the effects of full anesthesia, the bronchoscope was inserted through the bronchoscope adapter connected to the endotracheal tube. The bronchoscope was pushed through the endotracheal tube into the trachea. There were thick secretions noted in the distal trachea. The tracheal soto was sharp. Most of the secretions were noted in the left lung, particularly in the left lower lobe. They were very viscid and thick. On the right side, the right upper lobe and its 3 segments, right middle lobe and its 2 segments, right lower lobe and its 5 segments, all had mild degrees of bronchitis and mucus plugging. There was no dominant mass or tumor. There was some mucosal friability. On the left side, there was much more bronchitic changes. There was diffuse moderate to severe erythema and hyperemia in the airways. There were thick mucus plugs noted particularly in the left lower lobe. They were suctioned with some difficulty. The left upper lobe was much better. After the mucus plugs were removed, the bronchoscope was wedged into the left lower lobe and the BAL took place. The patient tolerated the procedure well. There was no immediate complication. The patient will be recovered. The patient will be transported back to his room. The patient tolerated the procedure well. The fluid was sent for analysis. MMODL / IJN: [id number] /
[2020-02-07 03:05] LABS: Glucose,Whole Blood 343 mg/dL (75-99)
[2020-02-07 04:25] LABS: HCT 33.2 % (39.0-53.0); HGB 10.5 gm/dL (13.0-17.5); Hypochromasia Slight; MCH 29.9 pg (25.0-35.0); MCHC 31.8 g/dL (31.0-37.0); MCV 94.2 fL (80.0-100.0); Mean Platelet Volume 10.4; RBC 3.52 m/uL (4.30-5.90); RDW 14.5 % (11.5-15.5); WBC 4.4 k/uL (3.8-10.6)
[2020-02-07 04:27] LABS: Platelet Count 67 k/uL (150-450)
[2020-02-07 04:49] LABS: Albumin 3.6 g/dL (3.5-5.0); Potassium 5.7 mmol/L (3.5-5.1); Total Bilirubin 0.4 mg/dL (0.2-1.3); Total Protein 5.4 g/dL (6.3-8.2)
[2020-02-07 07:19] LABS: Glucose,Whole Blood 353 mg/dL (75-99)
[2020-02-07] MEDS ORDERED: INSULIN REGULAR BOLUS (FROM DRIP BAG) IV PRN (07:30)
--- NOTE | 2020-02-07 07:32 | XR ---
EXAMINATION TYPE: XR chest 1V portable DATE OF EXAM: 02/07/2020 COMPARISON: Prior chest x-ray 02/06/2020 HISTORY: Abnormal chest x-ray, tube placement TECHNIQUE: Single frontal view of the chest is obtained. FINDINGS: Right subclavian central venous catheter is present, there is volume loss in left hemithor ax which is opacified. No evident pneumothorax. There is blunting the right costophrenic angle with b asilar increased density present. Generators present in left pectoral region, there is a lead in the right ventricle. IMPRESSION: There is not a significant change compared to prior exam. Opacified left hemithorax. Pro bable small right pleural effusion.
[2020-02-07] MEDS: IPRATROPIUM-ALBUTEROL 3 ML NEB INHALATION SCH ×4 (07:56→20:13)
[2020-02-07] MEDS: SYMBICORT 160-4.5 MCG INHALER INHALATION SCH ×2 (07:59→20:13)
[2020-02-07] MEDS: INSULIN REGULAR 100 UNIT in SODIUM CHLORIDE 0.9% 100 ML IV SCH (08:10)
[2020-02-07 08:46] LABS: Glucose,Whole Blood 379 mg/dL (75-99)
--- NOTE | 2020-02-07 08:54 | P.PN ---
Subjective Principal diagnosis: CHF with COPD element The patient is a 59-year-old white male with known history of chronic back otitis diabetes CHF and COPD. The patient is mechanically ventilated at this time and has recently undergone bronchoscope for mucus plugging. Patient tolerated the procedure well. The patient feels fine even though he has had multiple bronchoscopy. Chest x- ray is poorly aerated. Objective - Vital Signs Vital signs: Vital Signs Temp 97.8 F 02/07/20 04:00 Pulse 87 02/07/20 08:00 Resp 25 H 02/07/20 08:00 BP 113/70 02/07/20 08:00 Pulse Ox 99 02/07/20 08:00 Intake & Output 02/06/20 02/07/20 02/07/20 18:59 06:59 18:59 Intake Total 775.284 0450 285.757 Output Total 1125 830 110 Balance -608.135 410 175.757 Weight 62.2 kg Intake: IV 480 280 40 0.9% NS KVO 160 180 40 Piperacillin-Tazobactam 3 100 .375 gm In Sodium Chloride 0.9% 100 ml @ 25 mls/hr IVPB Q12H [facility] Rx# :[id number] Intake, IV Titration 36.865 5.757 Amount Insulin Regular 100 unit 36.865 In Sodium Chloride 0.9% 100 ml @ Per Protocol IV .Q0M [facility] Rx#:[id number] Insulin Regular 100 unit 5.757 In Sodium Chloride 0.9% 100 ml @ Per Protocol IV .Q0M [facility] Rx#:[id number] Oral 960 240 Output: Urine 1125 830 110 Other: Voiding Method Indwelling Catheter Indwelling Catheter ABP, PAP, CO, CI - Last Documented Arterial Blood Pressure 183/72 - Constitutional General appearance: Present: thin - EENT Eyes: Absent: abnormal pupil - Neck Neck: Absent: lymphadenopathy - Respiratory Respiratory: bilateral: diminished - Cardiovascular Rhythm: regular Heart sounds: normal: S1, S2 Abnormal Heart Sounds: Absent: S3 Gallop - Gastrointestinal General gastrointestinal: Present: soft. Absent: tenderness - Psychiatric Psychiatric: Present: A&O x's 3 - Labs CBC & Chem 7: 02/07/20 03:30 02/07/20 03:30 Labs: Abnormal Lab Results - Last 24 Hours (Table) 02/06/20 02/06/20 02/06/20 Range/Units 03:07 09:13 09:52 RBC (4.30-5.90) m/uL Hgb (13.0-17.5) gm/dL Hct (39.0-53.0) % Plt Count (150-450) k/uL Sodium 127 L (137-145) mmol/L Potassium (3.5-5.1) mmol/L Chloride 90 L (98-107) mmol/L BUN 85 H (9-20) mg/dL Creatinine 3.48 H (0.66-1.25) mg/dL Glucose 233 H (74-99) mg/dL POC Glucose (mg/dL) 229 H (75-99) mg/dL Hemoglobin A1c 9.2 H (4.0-6.0) % Calcium 7.3 L (8.4-10.2) mg/dL Total Protein (6.3-8.2) g/dL 02/06/20 02/06/20 02/06/20 Range/Units 10:53 18:17 20:34 RBC (4.30-5.90) m/uL Hgb (13.0-17.5) gm/dL Hct (39.0-53.0) % Plt Count (150-450) k/uL Sodium (137-145) mmol/L Potassium (3.5-5.1) mmol/L Chloride (98-107) mmol/L BUN (9-20) mg/dL Creatinine (0.66-1.25) mg/dL Glucose (74-99) mg/dL POC Glucose (mg/dL) 124 H 108 H 303 H (75-99) mg/dL Hemoglobin A1c (4.0-6.0) % Calcium (8.4-10.2) mg/dL Total Protein (6.3-8.2) g/dL 02/07/20 02/07/20 02/07/20 Range/Units 02:53 03:30 03:30 RBC 3.52 L (4.30-5.90) m/uL Hgb 10.5 L (13.0-17.5) gm/dL Hct 33.2 L (39.0-53.0) % Plt Count 67 L (150-450) k/uL Sodium 127 L (137-145) mmol/L Potassium 5.7 H (3.5-5.1) mmol/L Chloride 91 L (98-107) mmol/L BUN 92 H (9-20) mg/dL Creatinine 3.59 H (0.66-1.25) mg/dL Glucose 324 H (74-99) mg/dL POC Glucose (mg/dL) 343 H (75-99) mg/dL Hemoglobin A1c (4.0-6.0) % Calcium 7.0 L (8.4-10.2) mg/dL Total Protein 5.4 L (6.3-8.2) g/dL 02/07/20 02/07/20 Range/Units 07:18 08:44 RBC (4.30-5.90) m/uL Hgb (13.0-17.5) gm/dL Hct (39.0-53.0) % Plt Count (150-450) k/uL Sodium (137-145) mmol/L Potassium (3.5-5.1) mmol/L Chloride (98-107) mmol/L BUN (9-20) mg/dL Creatinine (0.66-1.25) mg/dL Glucose (74-99) mg/dL POC Glucose (mg/dL) 353 H 379 H (75-99) mg/dL Hemoglobin A1c (4.0-6.0) % Calcium (8.4-10.2) mg/dL Total Protein (6.3-8.2) g/dL Microbiology - Last 24 Hours (Table) 02/06/20 15:30 Gram Stain - Preliminary Bronchial Washings - Left Bronchial Washings Culture - Preliminary 02/06/20 15:30 Fungal Culture - Preliminary Bronchial Washings - Left 02/06/20 15:30 Acid Fast Bacilli Culture - Preliminary Bronchial Washings - Left 02/04/20 05:12 Gram Stain - Final Sputum Sputum Culture - Final 02/03/20 17:30 Gram Stain - Preliminary Pleural Fluid Body Fluid Culture - Preliminary Alpha Hemolytic Streptococcus Gram Neg Bacilli Assessment and Plan (1) Congestive heart failure Current Visit: Yes Status: Acute Code(s): I50.9 - HEART FAILURE, UNSPECIFIED SNOMED Code(s): 75546323 (2) Hyperglycemia Current Visit: Yes Status: Acute Code(s): R73.9 - HYPERGLYCEMIA, UNSPECIFIED SNOMED Code(s): 57121986 (3) Hyponatremia Current Visit: Yes Status: Acute Code(s): E87.1 - HYPO-OSMOLALITY AND HYPONATREMIA SNOMED Code(s): 27240794 (4) Respiratory failure Current Visit: No Status: Acute Code(s): J96.90 - RESPIRATORY FAILURE, UNSP, UNSP W HYPOXIA OR HYPERCAPNIA SNOMED Code(s): 272568476 Plan: Continue supportive care Check CBC and CMP in the a.m. Prognosis is guarded secondary to his multiple comorbidities. Continue respiratory support. REAGAN Pierson when cleared by pulmonology. I am worried that he could easily take a turn for the worse given his chest x- ray findings. Time with Patient: Greater than 30
[2020-02-07 09:29] LABS: Glucose,Whole Blood 345 mg/dL (75-99)
[2020-02-07] MEDS: METOPROLOL SUCCINATE (ER) 25 MG TAB.ER.24H PO SCH (09:53)
[2020-02-07] MEDS: predniSONE 10 MG TAB PO SCH (09:53)
[2020-02-07] MEDS: PREGABALIN 100 MG CAP PO SCH ×2 (09:53→22:15)
[2020-02-07] MEDS: LIPASE 5,000/PROTEASE 17,000/AMYLASE 24,000 PO SCH (09:54)
[2020-02-07] MEDS: ENOXAPARIN 30 MG/0.3 ML SYRINGE SQ SCH (09:54)
--- NOTE | 2020-02-07 09:58 | US ---
EXAMINATION TYPE: US chest DATE OF EXAM: 02/07/2020 COMPARISON: x-ray earlier today. Prior ultrasound and CT 4 days ago. CLINICAL HISTORY: Left pleural effusion, recurrence . TECHNIQUE: Targeted ultrasound of the posterior lower bilateral hemithoraces EXAM MEASUREMENTS: Right Pleural Effusion pocket size: 0.8 cm Right skin surface to fluid distance: 2.2 cm Left Pleural Effusion pocket size: 6.1 cm Left skin surface to fluid distance: 2.2 cm Left side marked for possible thoracentesis outside the dept. Lung is visualized within the fluid poc ket Pulmonologists are able to review the images in the patient?s EMR. Small left and tiny right pleural effusions noted on images stated with compressive atelectasis bilat erally. Left-sided effusion increased in size from February 02 ultrasound. IMPRESSIONS: As above.
[2020-02-07] MEDS: ISOSORBIDE MONONITRATE ER 30 MG TAB.ER.24H PO SCH (10:03)
--- NOTE | 2020-02-07 10:23 | PN ---
PROGRESS NOTE PULMONARY/CRITICAL CARE PROGRESS NOTE: DATE OF SERVICE: 02/07/2020 A 59-year-old male admitted on February 02, 2020. He was initially seen by my partner when he was admitted. He came in with complaints of increasing shortness of breath, on chest x-ray was found to have CHF. He was initially admitted to [address] [place] [address] and transferred to ICU on February 03, 2020. He was found to be poorly responsive and cyanotic and the patient was intubated. He remained on the ventilator at which time he was successfully extubated on February 04, 2020. Intubated on 02/03/2020. The patient underwent thoracentesis with limited fluid removal from the left chest by my partner. He underwent bronchoscopy by my partner as well. They were thinking mucous plugging. The left lung was completely collapsed. Minimal secretions were noted. I went ahead and repeated the bronchoscopy yesterday on February 06, 2020. He did have significantly thick secretions noted in the left lower lobe. They were suctioned and samples were sent to the laboratory for analysis. Currently, the patient is on 4 L nasal cannula. That is his home dose. His saline IV is running at 20 mL an hour. He is getting insulin at 9 units an hour. His chest x-ray still shows complete opacification of the left chest. The patient is going to have a repeat ultrasound of the left chest just to make sure there was no significant fluid in the left pleural space. Clinically, he is stable. Current vital signs are reviewed. His temperature is 97.8, heart rate 80, respiratory rate 17, blood pressure 120/70, mean 86, 4 L saturation is 94%. Appears in no acute distress. HEENT: Examination is grossly unremarkable. Nasal cannula noted. NECK: Supple, full range of motion. No adenopathy or thyromegaly. Neck veins are flat. CARDIOVASCULAR: Examination reveals regular rhythm and rate. Heart rate 80 beats per minute. S1, S2 normal. LUNGS: Reveal diminished breath sounds throughout the entire left chest. A few scattered rhonchi on the right. ABDOMEN: Soft, bowel sounds are heard. EXTREMITIES: Intact. No cyanosis, clubbing, or edema. SKIN: Without rash. NEUROLOGIC: Examination is brief but nonfocal. LABS: Reviewed. White count 4.4, hemoglobin 10.5, hematocrit 33.2, platelet count 67,000, sodium 127, potassium 5.7, chloride 91, CO2 is 27, anion gap is 9. BUN and creatinine were 92 and 3.59. Glucose is 324. Microbiology showing some alpha hemolytic strep and gram-negative bacilli in the pleural fluids from February 02. A chest x-ray from this morning again shows complete opacification of the left hemithorax. MEDICATIONS: Reviewed. Currently, patient is on Lipitor, Symbicort, Lovenox, [place], insulin drip, DuoNeb, Imdur, Zenpep, metoprolol, Narcan, nicotine patch, Protonix, Zosyn, prednisone, and Lyrica. ASSESSMENT: 1. Acute on chronic hypoxemic and hypercapnic respiratory failure, with intubation on February 02 and successful extubation on February 04, 2020. 2. Acute on chronic systolic congestive heart failure. 3. History of severe underlying COPD. 4. 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 5. Left lung collapse, status post bronchoscopy x2. The most recent one on February 06, 2020. 6. Acute kidney injury. 7. Severe systolic left ventricular dysfunction. 8. Essential hypertension. 9. Hyperlipidemia. 10.Type 2 diabetes mellitus with diabetic neuropathy. 11.History of gastroesophageal reflux disease. 12.Nonischemic cardiomyopathy, status post AICD placement. 13.History of chronic pancreatitis with pancreatic exocrine insufficiency. 14.History of pancreatic pseudocyst. 15.Pleural space infection secondary to alpha hemolytic Streptococcus and gram- negative bacilli. PLAN: The patient is currently doing reasonably well. His bronchoscopy yesterday did not improve the left chest on today's chest x-ray. Will continue with chest physiotherapy and possible drainage. Will repeat a total ultrasound to see if there is any additional fluid in the left pleural space. He continues on antibiotics. He continues on insulin. Prognosis is guarded. No additional recommendations are made. MMODL / IJN: [id number] /
[2020-02-07 10:52] LABS: Glucose,Whole Blood 219 mg/dL (75-99)
--- NOTE | 2020-02-07 11:38 | PN ---
PROGRESS NOTE Patient is seen for followup for acute kidney injury. He is currently lying in bed, he is comfortable. Patient denies any significant complaints. His serum creatinine is higher at 3.59. Patient's urine output is maintained at about 50-60 mL an hour. His Lasix was held yesterday. Today, his potassium is up to 5.7, although blood sugars are elevated as well at 353 and i345 mg/dL. EXAMINATION: Today patient is comfortable. Blood pressure 106/54, heart rate 78 per minute, he is afebrile. Examination of the heart S1, S2. Examination of the lungs, bilateral breath sounds are heard. Abdomen is soft, nontender. Examination of the lower extremities shows no significant edema. BLOWER OPERATOR exam grossly intact. LABS: Show sodium 127, potassium 5.7, chloride 91, BUN 92, serum creatinine 2.59, hemoglobin 10.5 g/dL. ASSESSMENT: 1. Acute kidney injury, cardiorenal and associated with recent diuresis, currently nonoliguric. patient has good urine output. Lasix is currently on hold. 2. Hyperkalemia associated with acute kidney injury as well as significant hyperglycemia. Expect improvement as blood sugar decreases. 3. Hypovolemic, hyponatremia. Sodium is stable. Patient received a dose of Samsca yesterday. I will hold off on any further doses. We will give him a dose of IV Lasix today. 4. Left lung collapse, being considered for bronchoscopy, previous bronchoscopy done a few days ago with removal of mucus plug. Patient did have his bronchoscopy yesterday and multiple mucus plugs were removed. 5. CHF, acute on top of chronic mainly systolic. 6. Cardiomyopathy, ejection fraction 25%-30%. PLAN: Control blood sugar. Repeat potassium this evening and repeat labs in a.m. Continue to avoid nephrotoxic agents. MMODL / IJN: [id number] /
--- NOTE | 2020-02-07 12:07 | P.PN ---
Subjective Progress Note Date: 02/07/20 HISTORY OF PRESENT ILLNESS: Patient examined this morning at the bedside in the ICU. The patient denies chest pain or pressure. Denies shortness of breath. He remains on nasal cannula. He underwent bronchoscopy yesterday with Dr. Ray. Chest x-ray this morning reveals opacified left hemothorax. Creatinine today 3.59. PHYSICAL EXAM: VITAL SIGNS: Reviewed. GENERAL: Well-developed in no acute distress. NECK: Supple. No JVD or thyromegaly LUNGS: Respirations even and unlabored. Lungs diminished. HEART: Regular rate and rhythm. S1 and S2 heard. EXTREMITIES: Normal range of motion. No clubbing or cyanosis. Peripheral pulses intact. No lower extremity edema ASSESSMENT: Acute on chronic hypoxic and hypercapnic respiratory failure requiring mechanical ventilation Acute exacerbation of systolic congestive heart failure Acute on chronic kidney disease Hypertension Hyperlipidemia Diabetes mellitus, type II History of nonischemic cardiomyopathy with previous AICD placement, EF 25-30% PLAN: Continue pulmonary management per Dr. Ray Continue to hold Lasix secondary to worsening creatinine. Repeat BMP in a.m. Monitor kidney function Daily weight Accurate I&O Nurse practitioner note has been reviewed by physician. Signing provider agrees with the documented findings, assessment, and plan of care. Objective - Vital Signs Vital signs: Vital Signs Temp 97.8 F 02/07/20 04:00 Pulse 76 02/07/20 11:21 Resp 17 02/07/20 11:00 BP 102/56 02/07/20 11:00 Pulse Ox 96 02/07/20 11:00 Intake & Output 02/06/20 02/07/20 02/07/20 18:59 06:59 18:59 Intake Total 618.377 9806 368.162 Output Total 1125 830 110 Balance -608.135 410 258.162 Weight 62.2 kg 62.2 kg Intake: IV 480 280 100 0.9% NS KVO 160 180 100 Piperacillin-Tazobactam 3 100 .375 gm In Sodium Chloride 0.9% 100 ml @ 25 mls/hr IVPB Q12H [facility] Rx# :[id number] Intake, IV Titration 36.865 28.162 Amount Insulin Regular 100 unit 36.865 In Sodium Chloride 0.9% 100 ml @ Per Protocol IV .Q0M [facility] Rx#:[id number] Insulin Regular 100 unit 28.162 In Sodium Chloride 0.9% 100 ml @ Per Protocol IV .Q0M [facility] Rx#:[id number] Oral 960 240 Output: Urine 1125 830 110 Other: Voiding Method Indwelling Catheter Indwelling Catheter ABP, PAP, CO, CI - Last Documented Arterial Blood Pressure 183/72 - Labs CBC & Chem 7: 02/07/20 03:30 02/07/20 03:30 Labs: Abnormal Lab Results - Last 24 Hours (Table) 02/06/20 02/06/20 02/06/20 Range/Units 03:07 18:17 20:34 RBC (4.30-5.90) m/uL Hgb (13.0-17.5) gm/dL Hct (39.0-53.0) % Plt Count (150-450) k/uL Sodium (137-145) mmol/L Potassium (3.5-5.1) mmol/L Chloride (98-107) mmol/L BUN (9-20) mg/dL Creatinine (0.66-1.25) mg/dL Glucose (74-99) mg/dL POC Glucose (mg/dL) 108 H 303 H (75-99) mg/dL Hemoglobin A1c 9.2 H (4.0-6.0) % Calcium (8.4-10.2) mg/dL Total Protein (6.3-8.2) g/dL 02/07/20 02/07/20 02/07/20 Range/Units 02:53 03:30 03:30 RBC 3.52 L (4.30-5.90) m/uL Hgb 10.5 L (13.0-17.5) gm/dL Hct 33.2 L (39.0-53.0) % Plt Count 67 L (150-450) k/uL Sodium 127 L (137-145) mmol/L Potassium 5.7 H (3.5-5.1) mmol/L Chloride 91 L (98-107) mmol/L BUN 92 H (9-20) mg/dL Creatinine 3.59 H (0.66-1.25) mg/dL Glucose 324 H (74-99) mg/dL POC Glucose (mg/dL) 343 H (75-99) mg/dL Hemoglobin A1c (4.0-6.0) % Calcium 7.0 L (8.4-10.2) mg/dL Total Protein 5.4 L (6.3-8.2) g/dL 02/07/20 02/07/20 02/07/20 Range/Units 07:18 08:44 09:27 RBC (4.30-5.90) m/uL Hgb (13.0-17.5) gm/dL Hct (39.0-53.0) % Plt Count (150-450) k/uL Sodium (137-145) mmol/L Potassium (3.5-5.1) mmol/L Chloride (98-107) mmol/L BUN (9-20) mg/dL Creatinine (0.66-1.25) mg/dL Glucose (74-99) mg/dL POC Glucose (mg/dL) 353 H 379 H 345 H (75-99) mg/dL Hemoglobin A1c (4.0-6.0) % Calcium (8.4-10.2) mg/dL Total Protein (6.3-8.2) g/dL 02/07/20 Range/Units 10:50 RBC (4.30-5.90) m/uL Hgb (13.0-17.5) gm/dL Hct (39.0-53.0) % Plt Count (150-450) k/uL Sodium (137-145) mmol/L Potassium (3.5-5.1) mmol/L Chloride (98-107) mmol/L BUN (9-20) mg/dL Creatinine (0.66-1.25) mg/dL Glucose (74-99) mg/dL POC Glucose (mg/dL) 219 H (75-99) mg/dL Hemoglobin A1c (4.0-6.0) % Calcium (8.4-10.2) mg/dL Total Protein (6.3-8.2) g/dL Microbiology - Last 24 Hours (Table) 02/06/20 15:30 Gram Stain - Preliminary Bronchial Washings - Left Bronchial Washings Culture - Preliminary 02/06/20 15:30 Fungal Culture - Preliminary Bronchial Washings - Left 02/06/20 15:30 Acid Fast Bacilli Culture - Preliminary Bronchial Washings - Left 02/04/20 05:12 Gram Stain - Final Sputum Sputum Culture - Final 02/03/20 17:30 Gram Stain - Preliminary Pleural Fluid Body Fluid Culture - Preliminary Alpha Hemolytic Streptococcus Gram Neg Bacilli
[2020-02-07 12:12] LABS: Glucose,Whole Blood 151 mg/dL (75-99)
[2020-02-07 13:35] LABS: Glucose,Whole Blood 106 mg/dL (75-99)
[2020-02-07 14:36] LABS: Glucose,Whole Blood 93 mg/dL (75-99)
[2020-02-07 16:32] LABS: Glucose,Whole Blood 155 mg/dL (75-99)
[2020-02-07 17:35] LABS: Glucose,Whole Blood 234 mg/dL (75-99)
[2020-02-07 19:09] LABS: Glucose,Whole Blood 252 mg/dL (75-99)
[2020-02-07 20:36] LABS: Glucose,Whole Blood 230 mg/dL (75-99)
[2020-02-07] MEDS ORDERED: SODIUM POLYSTYRENE SULFONATE 15 GM/60 ML BOTTLE PO STA (20:45)
[2020-02-07 22:14] LABS: Glucose,Whole Blood 196 mg/dL (75-99)
[2020-02-07] MEDS: ATORVASTATIN 10 MG TAB PO SCH (22:15)
[2020-02-07] MEDS: HYDROcodone/APAP 10-325MG 1 EACH TAB PO PRN (22:19)
[2020-02-07 23:34] LABS: Glucose,Whole Blood 198 mg/dL (75-99)
[2020-02-08] MEDS: PIPERACILLIN-TAZOBACTAM 3.375 GM in SODIUM CHLORIDE 0.9% 100 ML IVPB SCH ×2 (00:19→12:03)
[2020-02-08] MEDS: INSULIN REGULAR 100 UNIT in SODIUM CHLORIDE 0.9% 100 ML IV SCH (00:22)
[2020-02-08 01:24] LABS: Glucose,Whole Blood 108 mg/dL (75-99)
[2020-02-08 02:48] LABS: Glucose,Whole Blood 125 mg/dL (75-99)
[2020-02-08 03:35] LABS: Glucose,Whole Blood 147 mg/dL (75-99)
[2020-02-08 05:43] LABS: Glucose,Whole Blood 137 mg/dL (75-99)
[2020-02-08 05:58] LABS: HGB 10.6 gm/dL (13.0-17.5); Hypochromasia Slight; MCH 30.3 pg (25.0-35.0); MCHC 32.2 g/dL (31.0-37.0); MCV 94.2 fL (80.0-100.0); Mean Platelet Volume 11.5; RDW 14.4 % (11.5-15.5)
[2020-02-08 06:01] LABS: Platelet Count 67 k/uL (150-450)
[2020-02-08] MEDS: HYDROcodone/APAP 10-325MG 1 EACH TAB PO PRN (06:02)
[2020-02-08 06:08] LABS: Albumin 3.5 g/dL (3.5-5.0); Calcium 7.1 mg/dL (8.4-10.2); Potassium 5.7 mmol/L (3.5-5.1); Total Bilirubin 0.5 mg/dL (0.2-1.3); Total Protein 5.4 g/dL (6.3-8.2)
[2020-02-08 07:24] LABS: Glucose,Whole Blood 155 mg/dL (75-99)
[2020-02-08] MEDS: predniSONE 10 MG TAB PO SCH (07:54)
[2020-02-08] MEDS: PREGABALIN 100 MG CAP PO SCH ×2 (07:55→21:09)
[2020-02-08] MEDS: METOPROLOL SUCCINATE (ER) 25 MG TAB.ER.24H PO SCH (07:55)
[2020-02-08] MEDS: ENOXAPARIN 30 MG/0.3 ML SYRINGE SQ SCH (07:55)
[2020-02-08] MEDS: ISOSORBIDE MONONITRATE ER 30 MG TAB.ER.24H PO SCH (07:55)
[2020-02-08] MEDS: LIPASE 5,000/PROTEASE 17,000/AMYLASE 24,000 PO SCH (07:55)
--- NOTE | 2020-02-08 08:21 | XR ---
EXAMINATION TYPE: XR chest 1V portable DATE OF EXAM: 02/08/2020 Comparison: 02/07/2020 Clinical History: 59-year-old male left lung follow-up Findings: Left anterior chest wall AICD generator with right ventricular lead. Right subclavian CVC catheter wi th tip in the right atrium. The proximal aspect of the catheter remains kinked at the right shoulder. There is complete whiteout of the left hemithorax which persists. Small effusion continues on the ri ght as well. Prominent skinfold along the periphery of the right lung. Impression: 1. Continued complete whiteout of the left hemithorax. Small effusion on the right also persists. 2. Right subclavian CVC. The proximal portion of the catheter remains kinked at the right shoulder, p robably positional if it continues to function appropriately.
[2020-02-08] MEDS: SYMBICORT 160-4.5 MCG INHALER INHALATION SCH ×3 (08:40→20:41)
[2020-02-08] MEDS: IPRATROPIUM-ALBUTEROL 3 ML NEB INHALATION SCH ×4 (08:42→20:41)
--- NOTE | 2020-02-08 09:34 | US ---
EXAMINATION TYPE: US kidneys/renal and bladder DATE OF EXAM: 02/08/2020 COMPARISON: NONE CLINICAL HISTORY: 59-year-old male renal failure. TECHNIQUE: Multiple sonographic images of the kidneys and bladder are obtained. FINDINGS: EXAM MEASUREMENTS: Right Kidney: 9.6 x 5.2 x 4.5 cm Left Kidney: 10.3 x 5.5 x 5.1 cm Right Kidney: only able to visualize from a posterior window. No evident hydronephrosis. Somewhat good ited due to overlying bowel gas. Left Kidney: No hydronephrosis. Trace perinephric fluid. Slightly limited views due to overlying [place] l gas Bladder: wnl, free fluid adjacent to bladder IMPRESSION: 1. No hydronephrosis. Trace perinephric fluid on the left could reflect chronic kidney disease or sen escent change. 2. Mild pelvic free fluid adjacent to the bladder. Abnormal in a male patient. Correlate as to etiolo gy.
--- NOTE | 2020-02-08 10:26 | P.PN ---
Subjective Progress Note Date: 02/08/20 Principal diagnosis: Acute on chronic hypoxemic/hypercapnic respiratory failure requiring intubation mechanical ventilatory support from February 02 and successfully extubated Novem . The patient is seen today 02/08/2020 in follow-up in the intensive care unit. He is currently sitting up in bed. Awake and alert in no acute distress. He had developed acute on chronic hypoxemic/hypercapnic respiratory failure requiring intubation on February 02 and successful extubation February 04 2020. He has acute on chronic systolic congestive heart failure. He has severely impaired left ventricular systolic function with ejection fraction 25-30%. Ultrasound of the left recurrent and ongoing and pleural effusions/infiltrates reveals a pocket site of 6.1 cm. There is lung tissue visualized within this pocket. No plans for thoracentesis. We'll plan on doing a computed tomography scan of the chest without contrast today. He does remain fairly stable. He is maintaining O2 saturation in the mid 90s on 4 L/m per nasal cannula. He's been afebrile. Hemodynamically stable. He has 0.9 normal saline at KVO. Continue bronchodilators, prednisone and Zosyn. Objective - Vital Signs Vital signs: Vital Signs Temp 98.2 F 02/08/20 08:00 Pulse 93 02/08/20 09:00 Resp 24 02/08/20 09:00 BP 112/60 02/08/20 09:00 Pulse Ox 93 L 02/08/20 09:00 Intake & Output 02/07/20 02/08/20 02/08/20 18:59 06:59 18:59 Intake Total 863.320 792.713 62.188 Output Total 360 350 Balance 503.320 442.713 62.188 Weight 62.2 kg 65.8 kg Intake: IV 340 260 60 0.9% NS KVO 240 160 60 Piperacillin-Tazobactam 3 100 100 .375 gm In Sodium Chloride 0.9% 100 ml @ 25 mls/hr IVPB Q12H [facility] Rx# :[id number] Intake, IV Titration 43.320 52.713 2.188 Amount Insulin Regular 100 unit 43.320 52.713 2.188 In Sodium Chloride 0.9% 100 ml @ Per Protocol IV .Q0M JOSY Rx#:[id number] Oral 480 480 Output: Urine 360 350 Other: Voiding Method Indwelling Catheter Bedside Commode Bedside Commode # Voids 1 1 # Bowel Movements 1 ABP, PAP, CO, CI - Last Documented Arterial Blood Pressure 183/72 - Exam GENERAL EXAM: Alert, pleasant 59-year-old gentleman, appears older than stated age, on 4 L nasal cannula, comfortable in no apparent distress. HEAD: Normocephalic. EYES: Normal reaction of pupils, equal size. NOSE: Clear with pink turbinates. THROAT: No erythema or exudates. NECK: No masses, no JVD. CHEST: No chest wall deformity. LUNGS: Equal air entry with basilar crackles left greater than right, diminished. CVS: S1 and S2 normal with no audible murmur, regular rhythm. ABDOMEN: No hepatosplenomegaly, normal bowel sounds, no guarding or rigidity. SPINE: No scoliosis or deformity SKIN: No rashes CENTRAL NERVOUS SYSTEM: No focal deficits, tone is normal in all 4 extremities. EXTREMITIES: There is no peripheral edema. No clubbing, no cyanosis. Peripheral pulses are intact. - Labs CBC & Chem 7: 02/08/20 05:38 02/08/20 05:35 Labs: Abnormal Lab Results - Last 24 Hours (Table) 02/07/20 02/07/20 02/07/20 Range/Units 10:50 12:10 13:34 RBC (4.30-5.90) m/uL Hgb (13.0-17.5) gm/dL Hct (39.0-53.0) % Plt Count (150-450) k/uL Sodium (137-145) mmol/L Potassium (3.5-5.1) mmol/L Chloride (98-107) mmol/L BUN (9-20) mg/dL Creatinine (0.66-1.25) mg/dL Glucose (74-99) mg/dL POC Glucose (mg/dL) 219 H 151 H 106 H (75-99) mg/dL Calcium (8.4-10.2) mg/dL Total Protein (6.3-8.2) g/dL 02/07/20 02/07/20 02/07/20 Range/Units 16:31 17:33 19:07 RBC (4.30-5.90) m/uL Hgb (13.0-17.5) gm/dL Hct (39.0-53.0) % Plt Count (150-450) k/uL Sodium (137-145) mmol/L Potassium (3.5-5.1) mmol/L Chloride (98-107) mmol/L BUN (9-20) mg/dL Creatinine (0.66-1.25) mg/dL Glucose (74-99) mg/dL POC Glucose (mg/dL) 155 H 234 H 252 H (75-99) mg/dL Calcium (8.4-10.2) mg/dL Total Protein (6.3-8.2) g/dL 02/07/20 02/07/20 02/07/20 Range/Units 20:00 20:34 22:13 RBC (4.30-5.90) m/uL Hgb (13.0-17.5) gm/dL Hct (39.0-53.0) % Plt Count (150-450) k/uL Sodium (137-145) mmol/L Potassium 5.9 H (3.5-5.1) mmol/L Chloride (98-107) mmol/L BUN (9-20) mg/dL Creatinine (0.66-1.25) mg/dL Glucose (74-99) mg/dL POC Glucose (mg/dL) 230 H 196 H (75-99) mg/dL Calcium (8.4-10.2) mg/dL Total Protein (6.3-8.2) g/dL 02/07/20 02/08/20 02/08/20 Range/Units 23:32 01:23 02:47 RBC (4.30-5.90) m/uL Hgb (13.0-17.5) gm/dL Hct (39.0-53.0) % Plt Count (150-450) k/uL Sodium (137-145) mmol/L Potassium (3.5-5.1) mmol/L Chloride (98-107) mmol/L BUN (9-20) mg/dL Creatinine (0.66-1.25) mg/dL Glucose (74-99) mg/dL POC Glucose (mg/dL) 198 H 108 H 125 H (75-99) mg/dL Calcium (8.4-10.2) mg/dL Total Protein (6.3-8.2) g/dL 02/08/20 02/08/20 02/08/20 Range/Units 03:33 05:35 05:38 RBC 3.50 L (4.30-5.90) m/uL Hgb 10.6 L (13.0-17.5) gm/dL Hct 33.0 L (39.0-53.0) % Plt Count 67 L (150-450) k/uL Sodium 130 L (137-145) mmol/L Potassium 5.7 H (3.5-5.1) mmol/L Chloride 94 L (98-107) mmol/L BUN 100 H (9-20) mg/dL Creatinine 4.55 H (0.66-1.25) mg/dL Glucose 138 H (74-99) mg/dL POC Glucose (mg/dL) 147 H (75-99) mg/dL Calcium 7.1 L (8.4-10.2) mg/dL Total Protein 5.4 L (6.3-8.2) g/dL 02/08/20 02/08/20 Range/Units 05:42 07:22 RBC (4.30-5.90) m/uL Hgb (13.0-17.5) gm/dL Hct (39.0-53.0) % Plt Count (150-450) k/uL Sodium (137-145) mmol/L Potassium (3.5-5.1) mmol/L Chloride (98-107) mmol/L BUN (9-20) mg/dL Creatinine (0.66-1.25) mg/dL Glucose (74-99) mg/dL POC Glucose (mg/dL) 137 H 155 H (75-99) mg/dL Calcium (8.4-10.2) mg/dL Total Protein (6.3-8.2) g/dL Microbiology - Last 24 Hours (Table) 02/06/20 15:30 Gram Stain - Final Bronchial Washings - Left Bronchial Washings Culture - Final Enterobacter gergoviae 02/06/20 15:30 Acid Fast Bacilli Smear - Final Bronchial Washings - Left Acid Fast Bacilli Culture - Preliminary 02/03/20 17:30 Gram Stain - Preliminary Pleural Fluid Body Fluid Culture - Preliminary Alpha Hemolytic Streptococcus Enterobacter gergoviae Gram Neg Bacilli Coagulase Negative Staph Assessment and Plan Assessment: 1 Acute hypoxemic/hypercapnic respiratory failure requiring intubation mechanical ventilator toward support from February 02 through 02/04/2020. Currently on 4 L high flow nasal cannula. Acute exacerbation of systolic congestive heart failure, left lung pleural effusion, left lung collapse. 2 Recurrent left lung pleural effusion with previous thoracentesis with animal fluid returned on 02/03/2020. Fluid positive for of a hemolytic streptococcus, Enterobacter gergoviae, gram-negative bacilli, coag-negative staph. Follow-up chest ultrasound reveals a 6.1 cm pocket however there is his lung tissue visualized within the fluid. Computed tomography scan of the chest pending. 3 Recurrent left lung infiltrate status post bronchoscopy with BAL on 02/03/2020 and again on 02/06/2020. 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 Ray Chest x-ray, microbiology and labs reviewed Repeat computed tomography scan of the chest without contrast Continue bronchodilators and Zosyn Titrate down the FiO2 as tolerated Transfer out to the the selective care unit We'll continue to follow I, the cosigning physician, performed a history & physical examination of the patient. Lungs sounds basilar crackles left greater than right, diminished most of the left lung field. Maintaining good O2 saturations in the 90s on 4 L/m per nasal. I discussed the assessment and plan of care with my nurse practitioner, Elenita Anne. I attest to the above note as dictated by her.
[2020-02-08 11:52] LABS: Glucose,Whole Blood 316 mg/dL (75-99)
[2020-02-08] MEDS: INSULIN ASPART (NovoLOG) 100 UNIT/ML VIAL SQ SCH ×3 (12:03→21:09)
--- NOTE | 2020-02-08 12:18 | PN ---
PROGRESS NOTE Patient is seen for followup for acute kidney injury, mostly cardiorenal. The patient is status post diuresis. He was maintained on dobutamine drip which is now discontinued. Patient also has left lung collapse and has had bronchoscopies a couple of times with removal of mucus plugs. Patient has been hemodynamically stable with blood pressure mostly staying above 100. However, there were a couple of readings with systolic blood pressure in the 86-90 mmHg yesterday. The patient continues to have good urine output with 24 hour output of about 2 L. Lasix is currently on hold. Patient denies any significant chest pains or shortness of breath. He is maintained on physical therapy for his lungs for chest PT. He is maintained on chest PT. PHYSICAL EXAMINATION: On examination today, blood pressure was 128/68, heart rate 88 per minute. He is afebrile. Examination of the heart S1, S2. Examination of the lungs, bilateral breath sounds are heard. Abdomen is soft, nontender. Examination lower extremities shows no evidence of edema. [employer] exam grossly intact. LAB: Show sodium 130, potassium 5.7, chloride 94, CO2 is 25, BUN 100, serum creatinine 4.5, hemoglobin 10.6 g/dL. ASSESSMENT: 1. Acute kidney injury with worsening renal function, mostly associated with hypotension as systolic blood pressure was down in the 80s yesterday. The patient, however, continues to have good urine output. His Lasix is on hold and we will continue to monitor for now. Ultrasound of the kidneys has been ordered. 2. Hyperkalemia associated with acute kidney injury. Blood sugars are not significantly elevated. No urine retention. As patient had an indwelling Pierson catheter, we will check postvoid residual to make sure he is not retaining urine. An ultrasound of the kidneys has been ordered as well. Maintain patient on low- potassium diet for now and once he resumes his loop diuretics, his potassium should be better controlled. 3. Hyponatremia which is hypervolemic currently improved and it was exacerbated with use of dobutamine which is based in D5W. 4. Left lung collapse status post bronchoscopies with removal of mucus plugs currently maintained on chest PT and updraft treatments. 5. Cardiomyopathy, ejection fraction 25-30%. 6. Congestive heart failure exacerbation acute on top of chronic, mainly systolic, currently improved. PLAN: Maintain patient on low-potassium diet. Repeat labs in a.m. Check postvoid residual and check ultrasound of the kidneys. Avoid hypotension. Currently patient is on beta blockers for rate control and no other antihypertensive medications. MMODL / IJN: [id number] /
--- NOTE | 2020-02-08 14:28 | P.PN ---
Subjective Progress Note Date: 02/08/20 this is a pleasant 59-year-old gentleman withcardiomyopathy and chronic kidney disease as well as diabetes and hypertension and dyslipidemia who was admitted to the hospital with acute hypoxic respiratory failure with acute exacerbation of congestive heart failure. He was seen today. Clinically he is stable. He is not on dobutamine anymore. He was not on Lasix anymore as well. The kidney function is worse today. Nephrology is on the case. He denies any symptoms of chest pain or chest discomfort or shortness of breath. He is insisting on going home. Objective - Vital Signs Vital signs: Vital Signs Temp 98.2 F 02/08/20 08:00 Pulse 80 02/08/20 12:03 Resp 24 02/08/20 09:00 BP 112/60 02/08/20 09:00 Pulse Ox 93 L 02/08/20 09:00 Intake & Output 02/07/20 02/08/20 02/08/20 18:59 06:59 18:59 Intake Total 863.320 792.713 82.188 Output Total 360 350 Balance 503.320 442.713 82.188 Weight 62.2 kg 65.8 kg Intake: IV 340 260 80 0.9% NS KVO 240 160 80 Piperacillin-Tazobactam 3 100 100 .375 gm In Sodium Chloride 0.9% 100 ml @ 25 mls/hr IVPB Q12H [facility] Rx# :[id number] Intake, IV Titration 43.320 52.713 2.188 Amount Insulin Regular 100 unit 43.320 52.713 2.188 In Sodium Chloride 0.9% 100 ml @ Per Protocol IV .Q0M JOSY Rx#:[id number] Oral 480 480 Output: Urine 360 350 Other: Voiding Method Indwelling Catheter Bedside Commode Bedside Commode # Voids 1 1 # Bowel Movements 1 ABP, PAP, CO, CI - Last Documented Arterial Blood Pressure 183/72 - Constitutional General appearance: Present: no acute distress - Respiratory Respiratory: right: CTA, left: diminished - Cardiovascular Heart sounds: normal: S1, S2 - Labs CBC & Chem 7: 02/08/20 05:38 02/08/20 05:35 Labs: Abnormal Lab Results - Last 24 Hours (Table) 02/07/20 02/07/20 02/07/20 Range/Units 16:31 17:33 19:07 RBC (4.30-5.90) m/uL Hgb (13.0-17.5) gm/dL Hct (39.0-53.0) % Plt Count (150-450) k/uL Sodium (137-145) mmol/L Potassium (3.5-5.1) mmol/L Chloride (98-107) mmol/L BUN (9-20) mg/dL Creatinine (0.66-1.25) mg/dL Glucose (74-99) mg/dL POC Glucose (mg/dL) 155 H 234 H 252 H (75-99) mg/dL Calcium (8.4-10.2) mg/dL Total Protein (6.3-8.2) g/dL 02/07/20 02/07/20 02/07/20 Range/Units 20:00 20:34 22:13 RBC (4.30-5.90) m/uL Hgb (13.0-17.5) gm/dL Hct (39.0-53.0) % Plt Count (150-450) k/uL Sodium (137-145) mmol/L Potassium 5.9 H (3.5-5.1) mmol/L Chloride (98-107) mmol/L BUN (9-20) mg/dL Creatinine (0.66-1.25) mg/dL Glucose (74-99) mg/dL POC Glucose (mg/dL) 230 H 196 H (75-99) mg/dL Calcium (8.4-10.2) mg/dL Total Protein (6.3-8.2) g/dL 02/07/20 02/08/20 02/08/20 Range/Units 23:32 01:23 02:47 RBC (4.30-5.90) m/uL Hgb (13.0-17.5) gm/dL Hct (39.0-53.0) % Plt Count (150-450) k/uL Sodium (137-145) mmol/L Potassium (3.5-5.1) mmol/L Chloride (98-107) mmol/L BUN (9-20) mg/dL Creatinine (0.66-1.25) mg/dL Glucose (74-99) mg/dL POC Glucose (mg/dL) 198 H 108 H 125 H (75-99) mg/dL Calcium (8.4-10.2) mg/dL Total Protein (6.3-8.2) g/dL 02/08/20 02/08/20 02/08/20 Range/Units 03:33 05:35 05:38 RBC 3.50 L (4.30-5.90) m/uL Hgb 10.6 L (13.0-17.5) gm/dL Hct 33.0 L (39.0-53.0) % Plt Count 67 L (150-450) k/uL Sodium 130 L (137-145) mmol/L Potassium 5.7 H (3.5-5.1) mmol/L Chloride 94 L (98-107) mmol/L BUN 100 H (9-20) mg/dL Creatinine 4.55 H (0.66-1.25) mg/dL Glucose 138 H (74-99) mg/dL POC Glucose (mg/dL) 147 H (75-99) mg/dL Calcium 7.1 L (8.4-10.2) mg/dL Total Protein 5.4 L (6.3-8.2) g/dL 02/08/20 02/08/20 02/08/20 Range/Units 05:42 07:22 11:51 RBC (4.30-5.90) m/uL Hgb (13.0-17.5) gm/dL Hct (39.0-53.0) % Plt Count (150-450) k/uL Sodium (137-145) mmol/L Potassium (3.5-5.1) mmol/L Chloride (98-107) mmol/L BUN (9-20) mg/dL Creatinine (0.66-1.25) mg/dL Glucose (74-99) mg/dL POC Glucose (mg/dL) 137 H 155 H 316 H (75-99) mg/dL Calcium (8.4-10.2) mg/dL Total Protein (6.3-8.2) g/dL Microbiology - Last 24 Hours (Table) 02/03/20 17:30 Gram Stain - Final Pleural Fluid Body Fluid Culture - Final Alpha Hemolytic Streptococcus Enterobacter gergoviae Enterobacter cloacae Coagulase Negative Staph 02/06/20 15:30 Gram Stain - Final Bronchial Washings - Left Bronchial Washings Culture - Final Enterobacter gergoviae 02/06/20 15:30 Acid Fast Bacilli Smear - Final Bronchial Washings - Left Acid Fast Bacilli Culture - Preliminary Assessment and Plan Assessment: assessment #1 acute hypoxic respiratory failure #2 acute exacerbation of congestive heart failure #3 severe cardiomyopathy #4 acute on chronic renal failure #5 multiple comorbid conditions Plan #1 continue holding the Lasix #2 nephrology team is on the case #3 continue monitor the kidney function and electrolytes #4 follow-up with the patient
[2020-02-08 17:22] LABS: Glucose,Whole Blood 374 mg/dL (75-99)
[2020-02-08 21:00] LABS: Glucose,Whole Blood 357 mg/dL (75-99)
[2020-02-08] MEDS: INSULIN DETEMIR (LEVEMIR) 100 UNIT/ML SYR SQ SCH (21:01)
[2020-02-08] MEDS: ATORVASTATIN 10 MG TAB PO SCH (21:09)
--- NOTE | 2020-02-09 01:23 | P.PN ---
Subjective Principal diagnosis: CHF with COPD element The patient is a 59-year-old white male with known history of chronic back otitis diabetes CHF and COPD. The patient is mechanically ventilated at this time and has recently undergone bronchoscope for mucus plugging. Patient tolerated the procedure well. The patient feels fine even though he has had multiple bronchoscopy. Chest x- ray is poorly aerated. I had a long discussion about the patient's overall status and possible prognosis. The patient would like to go home but clinically is unstable at this time. Objective - Vital Signs Vital signs: Vital Signs Temp 98.3 F 02/08/20 15:39 Pulse 84 02/08/20 20:41 Resp 18 02/08/20 15:39 BP 112/67 02/08/20 15:39 Pulse Ox 92 L 02/08/20 15:39 Intake & Output 02/08/20 02/08/20 02/09/20 06:59 18:59 06:59 Intake Total 792.713 82.188 20 Output Total 350 300 Balance 442.713 82.188 -280 Weight 65.8 kg Intake: IV 260 80 20 0.9% NS KVO 160 80 20 Piperacillin-Tazobactam 3 100 .375 gm In Sodium Chloride 0.9% 100 ml @ 25 mls/hr IVPB Q12H [facility] Rx# :[id number] Intake, IV Titration 52.713 2.188 Amount Insulin Regular 100 unit 52.713 2.188 In Sodium Chloride 0.9% 100 ml @ Per Protocol IV .Q0M JOSY Rx#:[id number] Oral 480 Output: Urine 350 300 Other: Voiding Method Bedside Commode Toilet # Voids 1 1 # Bowel Movements 1 ABP, PAP, CO, CI - Last Documented Arterial Blood Pressure 183/72 - Constitutional General appearance: Present: thin - EENT Eyes: Absent: abnormal pupil ENT: Absent: hard of hearing - Neck Neck: Absent: lymphadenopathy - Respiratory Respiratory: bilateral: diminished - Cardiovascular Rhythm: irregularly irregular Heart sounds: normal: S1, S2 Abnormal Heart Sounds: Absent: S3 Gallop - Gastrointestinal General gastrointestinal: Present: soft. Absent: tenderness - Musculoskeletal Musculoskeletal: Present: generalized weakness - Psychiatric Psychiatric: Present: A&O x's 3, appropriate affect - Labs CBC & Chem 7: 02/08/20 05:38 02/08/20 05:35 Labs: Abnormal Lab Results - Last 24 Hours (Table) 02/08/20 02/08/20 02/08/20 Range/Units 01:23 02:47 03:33 RBC (4.30-5.90) m/uL Hgb (13.0-17.5) gm/dL Hct (39.0-53.0) % Plt Count (150-450) k/uL Sodium (137-145) mmol/L Potassium (3.5-5.1) mmol/L Chloride (98-107) mmol/L BUN (9-20) mg/dL Creatinine (0.66-1.25) mg/dL Glucose (74-99) mg/dL POC Glucose (mg/dL) 108 H 125 H 147 H (75-99) mg/dL Calcium (8.4-10.2) mg/dL Total Protein (6.3-8.2) g/dL 02/08/20 02/08/20 02/08/20 Range/Units 05:35 05:38 05:42 RBC 3.50 L (4.30-5.90) m/uL Hgb 10.6 L (13.0-17.5) gm/dL Hct 33.0 L (39.0-53.0) % Plt Count 67 L (150-450) k/uL Sodium 130 L (137-145) mmol/L Potassium 5.7 H (3.5-5.1) mmol/L Chloride 94 L (98-107) mmol/L BUN 100 H (9-20) mg/dL Creatinine 4.55 H (0.66-1.25) mg/dL Glucose 138 H (74-99) mg/dL POC Glucose (mg/dL) 137 H (75-99) mg/dL Calcium 7.1 L (8.4-10.2) mg/dL Total Protein 5.4 L (6.3-8.2) g/dL 02/08/20 02/08/20 02/08/20 Range/Units 07:22 11:51 17:20 RBC (4.30-5.90) m/uL Hgb (13.0-17.5) gm/dL Hct (39.0-53.0) % Plt Count (150-450) k/uL Sodium (137-145) mmol/L Potassium (3.5-5.1) mmol/L Chloride (98-107) mmol/L BUN (9-20) mg/dL Creatinine (0.66-1.25) mg/dL Glucose (74-99) mg/dL POC Glucose (mg/dL) 155 H 316 H 374 H (75-99) mg/dL Calcium (8.4-10.2) mg/dL Total Protein (6.3-8.2) g/dL 02/08/20 Range/Units 20:58 RBC (4.30-5.90) m/uL Hgb (13.0-17.5) gm/dL Hct (39.0-53.0) % Plt Count (150-450) k/uL Sodium (137-145) mmol/L Potassium (3.5-5.1) mmol/L Chloride (98-107) mmol/L BUN (9-20) mg/dL Creatinine (0.66-1.25) mg/dL Glucose (74-99) mg/dL POC Glucose (mg/dL) 357 H (75-99) mg/dL Calcium (8.4-10.2) mg/dL Total Protein (6.3-8.2) g/dL Microbiology - Last 24 Hours (Table) 02/03/20 17:30 Gram Stain - Final Pleural Fluid Body Fluid Culture - Final Alpha Hemolytic Streptococcus Enterobacter gergoviae Enterobacter cloacae Coagulase Negative Staph 02/06/20 15:30 Gram Stain - Final Bronchial Washings - Left Bronchial Washings Culture - Final Enterobacter gergoviae 02/06/20 15:30 Acid Fast Bacilli Smear - Final Bronchial Washings - Left Acid Fast Bacilli Culture - Preliminary Assessment and Plan (1) Congestive heart failure Current Visit: Yes Status: Acute Code(s): I50.9 - HEART FAILURE, UNSPECIFIED SNOMED Code(s): 89783074 (2) Hyperglycemia Current Visit: Yes Status: Acute Code(s): R73.9 - HYPERGLYCEMIA, UNSPECIFIED SNOMED Code(s): 32957599 (3) Hyponatremia Current Visit: Yes Status: Acute Code(s): E87.1 - HYPO-OSMOLALITY AND HYPONATREMIA SNOMED Code(s): 67901014 (4) Respiratory failure Current Visit: No Status: Acute Code(s): J96.90 - RESPIRATORY FAILURE, UNSP, UNSP W HYPOXIA OR HYPERCAPNIA SNOMED Code(s): 056791453 Plan: Continue supportive care Check CBC and CMP in the a.m. Prognosis is guarded secondary to his multiple comorbidities. Continue respiratory support. I am worried that he could easily take a turn for the worse given his chest x- ray findings. Dr. Morris's group Will be covering for the weekend. Hopefully we transfer out of the unit soon Time with Patient: Greater than 30
[2020-02-09] MEDS: FUROSEMIDE 10 MG/ML 2 ML VIAL IV SCH (05:55)
[2020-02-09] MEDS: INSULIN ASPART (NovoLOG) 100 UNIT/ML VIAL SQ SCH ×5 (05:56→21:58)
[2020-02-09 07:34] LABS: Glucose,Whole Blood 231 mg/dL (75-99)
[2020-02-09] MEDS: METOPROLOL SUCCINATE (ER) 25 MG TAB.ER.24H PO SCH (09:00)
[2020-02-09] MEDS: PREGABALIN 100 MG CAP PO SCH ×2 (09:00→21:58)
[2020-02-09] MEDS: ENOXAPARIN 30 MG/0.3 ML SYRINGE SQ SCH (09:00)
[2020-02-09] MEDS: predniSONE 10 MG TAB PO SCH (09:00)
[2020-02-09] MEDS: ISOSORBIDE MONONITRATE ER 30 MG TAB.ER.24H PO SCH (09:00)
[2020-02-09] MEDS: LIPASE 5,000/PROTEASE 17,000/AMYLASE 24,000 PO SCH (09:01)
[2020-02-09] MEDS: HYDROcodone/APAP 10-325MG 1 EACH TAB PO PRN ×2 (09:09→21:57)
[2020-02-09] MEDS: SYMBICORT 160-4.5 MCG INHALER INHALATION SCH ×2 (09:32→20:06)
[2020-02-09] MEDS: IPRATROPIUM-ALBUTEROL 3 ML NEB INHALATION SCH ×4 (09:32→20:07)
--- NOTE | 2020-02-09 10:03 | P.PN ---
Subjective Progress Note Date: 02/09/20 Principal diagnosis: Cardiomyopathy this is a pleasant 59-year-old gentleman withcardiomyopathy and chronic kidney disease as well as diabetes and hypertension and dyslipidemia who was admitted to the hospital with acute hypoxic respiratory failure with acute exacerbation of congestive heart failure. The patient was seen today. He seems to be stable from a cardiovascular sta ndpoint overview. He is asymptomatic. He is hemodynamically stable. No blood work from today including CBC and BMP. I'm going to obtain both of them. He is insisting on going home. Objective - Vital Signs Vital signs: Vital Signs Temp 97.7 F 02/09/20 04:00 Pulse 80 02/09/20 09:42 Resp 18 02/09/20 04:00 BP 117/72 02/09/20 04:00 Pulse Ox 98 02/09/20 04:00 Intake & Output 02/08/20 02/09/20 02/09/20 18:59 06:59 18:59 Intake Total 82.188 60 Output Total 300 Balance 82.188 -240 Weight 69.8 kg Intake: IV 80 60 0.9% NS KVO 80 60 Intake, IV Titration 2.188 Amount Insulin Regular 100 unit 2.188 In Sodium Chloride 0.9% 100 ml @ Per Protocol IV .Q0M JOSY Rx#:[id number] Output: Urine 300 Other: Voiding Method Toilet Toilet # Voids 1 # Bowel Movements 1 ABP, PAP, CO, CI - Last Documented Arterial Blood Pressure 183/72 - Constitutional General appearance: Present: no acute distress - Respiratory Respiratory: bilateral: diminished - Cardiovascular Heart sounds: normal: S1, S2 - Labs CBC & Chem 7: 02/08/20 05:38 02/08/20 05:35 Labs: Abnormal Lab Results - Last 24 Hours (Table) 02/08/20 02/08/20 02/08/20 Range/Units 11:51 17:20 20:58 POC Glucose (mg/dL) 316 H 374 H 357 H (75-99) mg/dL 02/09/20 Range/Units 07:30 POC Glucose (mg/dL) 231 H (75-99) mg/dL Microbiology - Last 24 Hours (Table) 02/03/20 17:30 Gram Stain - Final Pleural Fluid Body Fluid Culture - Final Alpha Hemolytic Streptococcus Enterobacter gergoviae Enterobacter cloacae Coagulase Negative Staph 02/06/20 15:30 Gram Stain - Final Bronchial Washings - Left Bronchial Washings Culture - Final Enterobacter gergoviae Assessment and Plan Assessment: assessment #1 acute hypoxic respiratory failure #2 acute exacerbation of congestive heart failure #3 severe cardiomyopathy #4 acute on chronic renal failure #5 multiple comorbid conditions Plan #1 continue holding the Lasix #2 nephrology team is on the case #3 continue monitor the kidney function and electrolytes #4 follow-up with the patient
[2020-02-09 12:22] LABS: Glucose,Whole Blood 188 mg/dL (75-99)
[2020-02-09] MEDS: PIPERACILLIN-TAZOBACTAM 3.375 GM in SODIUM CHLORIDE 0.9% 100 ML IVPB SCH ×3 (12:59)
--- NOTE | 2020-02-09 13:19 | P.PN ---
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 He was admitted with possible congestive heart failure right lung whiteout is seen with cute acute kidney injury, creatinine has been worsening and currently is at 4.5 as of yesterday. His creatinine on 09/27/2019 was 1.3 and was 2.5 on admission on 02/02/2020 His Lasix was discontinued 2 days ago. Last today are not available. He has refused blood draws today and I tried to convince him but he is not convinced. He denies any nausea vomiting has a good appetite has cough and shortness of breath. No dizziness no diarrhea. No fever no chills. Objective - Vital Signs Vital signs: Vital Signs Temp 97.7 F 02/09/20 04:00 Pulse 76 02/09/20 12:02 Resp 18 02/09/20 08:00 BP 117/72 02/09/20 04:00 Pulse Ox 98 02/09/20 04:00 Intake & Output 02/08/20 02/09/20 02/09/20 18:59 06:59 18:59 Intake Total 82.188 60 Output Total 300 Balance 82.188 -240 Weight 69.8 kg Intake: IV 80 60 0.9% NS KVO 80 60 Intake, IV Titration 2.188 Amount Insulin Regular 100 unit 2.188 In Sodium Chloride 0.9% 100 ml @ Per Protocol IV .Q0M JOSY Rx#:[id number] Output: Urine 300 Other: Voiding Method Toilet Toilet Toilet # Voids 1 # Bowel Movements 1 ABP, PAP, CO, CI - Last Documented Arterial Blood Pressure 183/72 On examination is awake alert oriented. Is somewhat argumentative HEENT exam no JVP neck is supple no facial asymmetry Lungs are significant for good air entry bilaterally in spite of the whiteout on the right. A chest x-ray and a computed tomography scan shows consolidation. Heart sounds unremarkable for any murmur rub gallop Abdomen soft nontender Extremity exam was trace edema Neurologically awake alert oriented. - Labs CBC & Chem 7: 02/08/20 05:38 02/08/20 05:35 Labs: Abnormal Lab Results - Last 24 Hours (Table) 02/08/20 02/08/20 02/09/20 Range/Units 17:20 20:58 07:30 POC Glucose (mg/dL) 374 H 357 H 231 H (75-99) mg/dL 02/09/20 Range/Units 12:07 POC Glucose (mg/dL) 188 H (75-99) mg/dL Microbiology - Last 24 Hours (Table) 02/03/20 17:30 Gram Stain - Final Pleural Fluid Body Fluid Culture - Final Alpha Hemolytic Streptococcus Enterobacter gergoviae Enterobacter cloacae Coagulase Negative Staph 02/06/20 15:30 Gram Stain - Final Bronchial Washings - Left Bronchial Washings Culture - Final Enterobacter gergoviae Assessment and Plan Assessment: Impression 1. Worsening kidney function with creatinine 4.5 as of yesterday with the baseline creatinine of 1.3 dated 09/27/2019 and admission creatinine of 2.5. The cause of this is likely volume depletion currently but initially might have been secondary to prerenal from pneumonia. Possible cardiorenal syndrome 2. Whiteout right lung with consolidation. 3. Diabetes mellitus 4. Ejection fraction 25%. Nonischemic cardiomyopathy 5. COPD. 6. Anemia hemoglobin is 10.6 7. Mild hyperkalemia secondary acute kidney injury 8. Mild hyponatremia secondary to acute kidney injury Recommendation 1. Will gently hydrate him normal saline at 60 an hour 2. Repeat labs today. 3. Check bladder scan. 4. Patient refusing blood draw today
[2020-02-09 13:39] LABS: Basophils % (A) 0 %; Eosinophils # (A) 0.1 k/uL (0-0.7); Eosinophils % (A) 2 %; HCT 33.9 % (39.0-53.0); HGB 10.6 gm/dL (13.0-17.5); Hypochromasia Slight; Lymphocytes # (A) 0.5 k/uL (1.0-4.8); Lymphocytes % (A) 11 %; MCH 29.4 pg (25.0-35.0); MCHC 31.3 g/dL (31.0-37.0); Mean Platelet Volume 10.5; Monocytes # (A) 0.3 k/uL (0-1.0); Monocytes % (A) 7 %; Neutrophils % (A) 80 %; RBC 3.61 m/uL (4.30-5.90); RDW 14.5 % (11.5-15.5); WBC 5.1 k/uL (3.8-10.6)
[2020-02-09 13:48] LABS: African American GFR (CKD) 14 (>60 ml/min/1.73 sqM); Anion Gap 13 mmol/L; Calcium 7.2 mg/dL (8.4-10.2); Carbon Dioxide 22 mmol/L (22-30); Chloride 91 mmol/L (98-107); Glucose 190 mg/dL (74-99); Non-African American GFR(CKD) 12 (>60 ml/min/1.73 sqM); Potassium 5.6 mmol/L (3.5-5.1); Sodium 126 mmol/L (137-145)
[2020-02-09 14:03] LABS: Blood Urea Nitrogen 110 mg/dL (9-20)
[2020-02-09 14:04] LABS: Platelet Count 67 k/uL (150-450)
--- NOTE | 2020-02-09 17:02 | P.PN ---
Subjective Progress Note Date: 02/09/20 Principal diagnosis: Acute on chronic hypoxemic/hypercapnic respiratory failure requiring intubation mechanical ventilatory support from February 02 and successfully extubated Novem . The patient is seen today 02/08/2020 in follow-up in the intensive care unit. He is currently sitting up in bed. Awake and alert in no acute distress. He had developed acute on chronic hypoxemic/hypercapnic respiratory failure requiring intubation on February 02 and successful extubation February 04 2020. He has acute on chronic systolic congestive heart failure. He has severely impaired left ventricular systolic function with ejection fraction 25-30%. Ultrasound of the left recurrent and ongoing and pleural effusions/infiltrates reveals a pocket site of 6.1 cm. There is lung tissue visualized within this pocket. No plans for thoracentesis. We'll plan on doing a computed tomography scan of the chest without contrast today. He does remain fairly stable. He is maintaining O2 saturation in the mid 90s on 4 L/m per nasal cannula. He's been afebrile. Hemodynamically stable. He has 0.9 normal saline at KVO. Continue bronchodilators, prednisone and Zosyn. The patient is seen today 02/09/2020 in follow-up on the regular medical floor. He is currently resting comfortably in bed. Awake and alert in no acute distress. He is maintaining good O2 saturations in the upper 90s on 4 L/m per nasal cannula. Afebrile. Hemodynamically stable. Bronchial wash cultures were positive for Enterobacter. He is currently on Zosyn. He remains on bronchodilators. On prednisone. He is very anxious to go home. Objective - Vital Signs Vital signs: Vital Signs Temp 97.8 F 02/09/20 13:00 Pulse 88 02/09/20 15:54 Resp 18 02/09/20 13:00 BP 102/53 02/09/20 13:00 Pulse Ox 98 02/09/20 13:00 Intake & Output 02/08/20 02/09/20 02/09/20 18:59 06:59 18:59 Intake Total 82.188 60 600 Output Total 300 Balance 82.188 -240 600 Weight 69.8 kg Intake: IV 80 60 0.9% NS KVO 80 60 Intake, IV Titration 2.188 Amount Insulin Regular 100 unit 2.188 In Sodium Chloride 0.9% 100 ml @ Per Protocol IV .Q0M JOSY Rx#:[id number] Oral 600 Output: Urine 300 Other: Voiding Method Toilet Toilet Toilet # Voids 1 1 # Bowel Movements 1 ABP, PAP, CO, CI - Last Documented Arterial Blood Pressure 183/72 - Exam GENERAL EXAM: Alert, pleasant 59-year-old gentleman, appears older than stated age, on 4 L nasal cannula, comfortable in no apparent distress. HEAD: Normocephalic. EYES: Normal reaction of pupils, equal size. NOSE: Clear with pink turbinates. THROAT: No erythema or exudates. NECK: No masses, no JVD. CHEST: No chest wall deformity. LUNGS: Equal air entry with basilar crackles left greater than right, diminished. CVS: S1 and S2 normal with no audible murmur, regular rhythm. ABDOMEN: No hepatosplenomegaly, normal bowel sounds, no guarding or rigidity. SPINE: No scoliosis or deformity SKIN: No rashes CENTRAL NERVOUS SYSTEM: No focal deficits, tone is normal in all 4 extremities. EXTREMITIES: There is no peripheral edema. No clubbing, no cyanosis. Peripheral pulses are intact. - Labs CBC & Chem 7: 02/09/20 13:23 02/09/20 13:23 Labs: Abnormal Lab Results - Last 24 Hours (Table) 02/08/20 02/08/20 02/09/20 Range/Units 17:20 20:58 07:30 RBC (4.30-5.90) m/uL Hgb (13.0-17.5) gm/dL Hct (39.0-53.0) % Plt Count (150-450) k/uL Lymphocytes # (1.0-4.8) k/uL Sodium (137-145) mmol/L Potassium (3.5-5.1) mmol/L Chloride (98-107) mmol/L BUN (9-20) mg/dL Creatinine (0.66-1.25) mg/dL Glucose (74-99) mg/dL POC Glucose (mg/dL) 374 H 357 H 231 H (75-99) mg/dL Calcium (8.4-10.2) mg/dL 02/09/20 02/09/20 02/09/20 Range/Units 12:07 13:23 13:23 RBC 3.61 L (4.30-5.90) m/uL Hgb 10.6 L (13.0-17.5) gm/dL Hct 33.9 L (39.0-53.0) % Plt Count 67 L (150-450) k/uL Lymphocytes # 0.5 L (1.0-4.8) k/uL Sodium 126 L (137-145) mmol/L Potassium 5.6 H (3.5-5.1) mmol/L Chloride 91 L (98-107) mmol/L BUN 110 H* (9-20) mg/dL Creatinine 4.77 H (0.66-1.25) mg/dL Glucose 190 H (74-99) mg/dL POC Glucose (mg/dL) 188 H (75-99) mg/dL Calcium 7.2 L (8.4-10.2) mg/dL Microbiology - Last 24 Hours (Table) 02/03/20 17:30 Gram Stain - Final Pleural Fluid Body Fluid Culture - Final Alpha Hemolytic Streptococcus Enterobacter gergoviae Enterobacter cloacae Coagulase Negative Staph Assessment and Plan Assessment: 1 Acute hypoxemic/hypercapnic respiratory failure requiring intubation mechanical ventilator toward support from February 02 through 02/04/2020. Currently on 4 L high flow nasal cannula. Acute exacerbation of systolic conges tive heart failure, left lung pleural effusion, left lung collapse. 2 Recurrent left lung pleural effusion with previous thoracentesis with animal fluid returned on 02/03/2020. Fluid positive for of a hemolytic streptococcus, Enterobacter gergoviae, gram-negative bacilli, coag-negative staph. Follow-up chest ultrasound reveals a 6.1 cm pocket however there is his lung tissue visualized within the fluid. Computed tomography scan of the chest pending. 3 Recurrent left lung infiltrate status post bronchoscopy with BAL on 02/03/2020 and again on 02/06/2020. 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 Ray Continue bronchodilators and Zosyn Titrate down the FiO2 as tolerated We'll continue to follow I, the cosigning physician, performed a history & physical examination of the patient. Lungs sounds basilar crackles left greater than right, diminished most of the left lung field. Maintaining good O2 saturations in the 90s on 4 L/m per nasal. I discussed the assessment and plan of care with my nurse practitioner, Elenita Anne. I attest to the above note as dictated by her.
[2020-02-09 17:31] LABS: Glucose,Whole Blood 229 mg/dL (75-99)
[2020-02-09] MEDS: SODIUM CHLORIDE 0.9% 1,000 ML IV SCH (17:51)
[2020-02-09 20:45] LABS: Glucose,Whole Blood 320 mg/dL (75-99)
[2020-02-09] MEDS: INSULIN DETEMIR (LEVEMIR) 100 UNIT/ML SYR SQ SCH (21:58)
[2020-02-09] MEDS: ATORVASTATIN 10 MG TAB PO SCH (21:58)
[2020-02-10] MEDS: PIPERACILLIN-TAZOBACTAM 3.375 GM in SODIUM CHLORIDE 0.9% 100 ML IVPB SCH ×2 (00:46→10:18)
[2020-02-10 05:19] LABS: Basophils % (A) 1 %; Eosinophils % (A) 1 %; HCT 33.6 % (39.0-53.0); HGB 10.2 gm/dL (13.0-17.5); Hypochromasia Marked; Lymphocytes # (A) 0.6 k/uL (1.0-4.8); Lymphocytes % (A) 12 %; MCH 29.6 pg (25.0-35.0); MCHC 30.5 g/dL (31.0-37.0); Mean Platelet Volume 10.8; Monocytes # (A) 0.4 k/uL (0-1.0); Monocytes % (A) 8 %; Neutrophils # (A) 3.9 k/uL (1.3-7.7); Neutrophils % (A) 76 %; RBC 3.46 m/uL (4.30-5.90); RDW 14.3 % (11.5-15.5); WBC 5.1 k/uL (3.8-10.6)
[2020-02-10 05:26] LABS: Platelet Count 65 k/uL (150-450)
[2020-02-10 07:27] LABS: Glucose,Whole Blood 324 mg/dL (75-99)
[2020-02-10] MEDS: SYMBICORT 160-4.5 MCG INHALER INHALATION SCH ×2 (07:38→20:35)
[2020-02-10] MEDS: IPRATROPIUM-ALBUTEROL 3 ML NEB INHALATION SCH ×5 (07:38→20:35)
--- NOTE | 2020-02-10 08:12 | XR ---
EXAMINATION TYPE: XR chest 1V DATE OF EXAM: 02/10/2020 HISTORY: Shortness of breath. COMPARISON: 02/08/2020 TECHNIQUE: Single view of the chest is submitted. FINDINGS: Complete opacification left hemithorax is redemonstrated with abrupt termination of the left mainstem bronchus. Correlate for mucous plug or neoplasm. Mildly increasing small right basilar pleural effus ion with associated atelectasis or infiltrate. New finding of pulmonary venous congestion on the righ t. Degenerative changes are seen of the dorsal spine. IMPRESSION: 1. Essentially stable chest although there is increasing right basilar effusion and pulmonary venous congestion right lung.
--- NOTE | 2020-02-10 09:44 | P.PN ---
Subjective Progress Note Date: 02/10/20 Principal diagnosis: Cardiomyopathy this is a pleasant 59-year-old gentleman withcardiomyopathy and chronic kidney disease as well as diabetes and hypertension and dyslipidemia who was admitted to the hospital with acute hypoxic respiratory failure with acute exacerbation of congestive heart failure. The patient was seen today. He seems to have some change in mental status. He denies any symptoms of chest pain or chest discomfort. Hemodynamically he is stable. Pulmonary team as well as nephrology team continues to follow-up with the patient daily. From a cardiovascular standpoint of view, the patient seems to be stable and will follow-up with the patient on when necessary K Objective - Vital Signs Vital signs: Vital Signs Temp 97.6 F 02/10/20 05:28 Pulse 88 02/10/20 07:49 Resp 20 02/10/20 05:28 BP 112/65 02/10/20 05:28 Pulse Ox 98 02/10/20 05:28 Intake & Output 02/09/20 02/10/20 02/10/20 18:59 06:59 18:59 Intake Total 600 700 Output Total 298 Balance 600 402 Intake: IV 100 Piperacillin-Tazobactam 3 100 .375 gm In Sodium Chloride 0.9% 100 ml @ 25 mls/hr IVPB Q12H JOSY Rx# :[id number] Intake, IV Titration 600 Amount Sodium Chloride 0.9% 1, 600 000 ml @ 75 mls/hr IV . [id number] JOSY Rx#:[id number] Oral 600 Output: Post Void Residual 298 Other: Voiding Method Toilet Toilet Urinal # Voids 1 1 ABP, PAP, CO, CI - Last Documented Arterial Blood Pressure 183/72 - Constitutional General appearance: Present: no acute distress - Respiratory Respiratory: left: diminished - Cardiovascular Heart sounds: normal: S1, S2 - Labs CBC & Chem 7: 02/10/20 04:42 02/09/20 13:23 Labs: Abnormal Lab Results - Last 24 Hours (Table) 02/09/20 02/09/20 02/09/20 Range/Units 12:07 13:23 13:23 RBC 3.61 L (4.30-5.90) m/uL Hgb 10.6 L (13.0-17.5) gm/dL Hct 33.9 L (39.0-53.0) % MCHC (31.0-37.0) g/dL Plt Count 67 L (150-450) k/uL Lymphocytes # 0.5 L (1.0-4.8) k/uL Sodium 126 L (137-145) mmol/L Potassium 5.6 H (3.5-5.1) mmol/L Chloride 91 L (98-107) mmol/L BUN 110 H* (9-20) mg/dL Creatinine 4.77 H (0.66-1.25) mg/dL Glucose 190 H (74-99) mg/dL POC Glucose (mg/dL) 188 H (75-99) mg/dL Calcium 7.2 L (8.4-10.2) mg/dL 02/09/20 02/09/20 02/10/20 Range/Units 17:29 20:42 04:42 RBC 3.46 L (4.30-5.90) m/uL Hgb 10.2 L (13.0-17.5) gm/dL Hct 33.6 L (39.0-53.0) % MCHC 30.5 L (31.0-37.0) g/dL Plt Count 65 L (150-450) k/uL Lymphocytes # 0.6 L (1.0-4.8) k/uL Sodium (137-145) mmol/L Potassium (3.5-5.1) mmol/L Chloride (98-107) mmol/L BUN (9-20) mg/dL Creatinine (0.66-1.25) mg/dL Glucose (74-99) mg/dL POC Glucose (mg/dL) 229 H 320 H (75-99) mg/dL Calcium (8.4-10.2) mg/dL 02/10/20 Range/Units 07:26 RBC (4.30-5.90) m/uL Hgb (13.0-17.5) gm/dL Hct (39.0-53.0) % MCHC (31.0-37.0) g/dL Plt Count (150-450) k/uL Lymphocytes # (1.0-4.8) k/uL Sodium (137-145) mmol/L Potassium (3.5-5.1) mmol/L Chloride (98-107) mmol/L BUN (9-20) mg/dL Creatinine (0.66-1.25) mg/dL Glucose (74-99) mg/dL POC Glucose (mg/dL) 324 H (75-99) mg/dL Calcium (8.4-10.2) mg/dL Assessment and Plan Assessment: assessment #1 acute hypoxic respiratory failure #2 acute exacerbation of congestive heart failure #3 severe cardiomyopathy #4 acute on chronic renal failure #5 multiple comorbid conditions Plan #1 continue the current medical regimen #2 the patient seems to be asymptomatic and stable from the cardiac standpoint #3 follow-up with the patient on when necessary K
[2020-02-10] MEDS: SODIUM CHLORIDE 0.9% 1,000 ML IV SCH ×2 (09:59→21:48)
[2020-02-10 10:10] LABS: African American GFR (CKD) 12.2 (60.0-200.0); Anion Gap 14.4 mmol/L (4.00-12.00); BUN/Creat Ratio 22.78 Ratio (12.00-20.00); Calcium 7.6 mg/dL (8.7-10.3); Carbon Dioxide 20.6 mmol/L (21.6-31.8); Non-African American GFR(CKD) 10.5 (60.0-200.0)
[2020-02-10] MEDS: predniSONE 10 MG TAB PO SCH (10:15)
[2020-02-10] MEDS: ISOSORBIDE MONONITRATE ER 30 MG TAB.ER.24H PO SCH (10:15)
[2020-02-10] MEDS: INSULIN ASPART (NovoLOG) 100 UNIT/ML VIAL SQ SCH ×4 (10:15→21:29)
[2020-02-10] MEDS: PREGABALIN 100 MG CAP PO SCH ×2 (10:15→21:27)
[2020-02-10] MEDS: METOPROLOL SUCCINATE (ER) 25 MG TAB.ER.24H PO SCH (10:15)
[2020-02-10] MEDS: ENOXAPARIN 30 MG/0.3 ML SYRINGE SQ SCH (10:16)
[2020-02-10] MEDS: LIPASE 5,000/PROTEASE 17,000/AMYLASE 24,000 PO SCH (10:16)
--- NOTE | 2020-02-10 11:17 | P.PN ---
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 He was admitted with possible congestive heart failure right lung whiteout is seen with cute acute kidney injury, creatinine has been worsening and currently is at 4.5 as of yesterday. His creatinine on 09/27/2019 was 1.3 and was 2.5 on admission on 02/02/2020 His Lasix was discontinued 3 days ago. Yesterday after a lot of convincing he agreed to have labs drawn. His creatinine has gone up again has gone up. Creatinine is 5.4 BUN is 123. Potassium is 6.3 Blood sugar is 334 He is somewhat obtunded. According to nursing staff he did eat some was not able to sleep well last night. His post void residual yesterday was 296 Ultrasound shows no hydronephrosis Objective - Vital Signs Vital signs: Vital Signs Temp 97.6 F 02/10/20 05:28 Pulse 88 02/10/20 07:49 Resp 20 02/10/20 05:28 BP 112/65 02/10/20 05:28 Pulse Ox 98 02/10/20 05:28 Intake & Output 02/09/20 02/10/20 02/10/20 18:59 06:59 18:59 Intake Total 600 700 Output Total 298 Balance 600 402 Intake: IV 100 Piperacillin-Tazobactam 3 100 .375 gm In Sodium Chloride 0.9% 100 ml @ 25 mls/hr IVPB Q12H JOSY Rx# :[id number] Intake, IV Titration 600 Amount Sodium Chloride 0.9% 1, 600 000 ml @ 75 mls/hr IV . [id number] JOSY Rx#:[id number] Oral 600 Output: Post Void Residual 298 Other: Voiding Method Toilet Toilet Urinal # Voids 1 1 ABP, PAP, CO, CI - Last Documented Arterial Blood Pressure 183/72 On examination his obtunded. A chin exam no JVP neck is supple no facial asymmetry Lungs are clear to auscultation in spite of the whiteout of the right lung Heart sounds are unremarkable no murmur rub gallop Abdomen soft nontender Extremity exam was trace edema Neurologically obtunded - Labs CBC & Chem 7: 02/10/20 04:42 02/10/20 04:42 Labs: Abnormal Lab Results - Last 24 Hours (Table) 02/09/20 02/09/20 02/09/20 Range/Units 12:07 13:23 13:23 RBC 3.61 L (4.30-5.90) m/uL Hgb 10.6 L (13.0-17.5) gm/dL Hct 33.9 L (39.0-53.0) % MCHC (31.0-37.0) g/dL Plt Count 67 L (150-450) k/uL Lymphocytes # 0.5 L (1.0-4.8) k/uL Sodium 126 L (137-145) mmol/L Potassium 5.6 H (3.5-5.1) mmol/L Chloride 91 L (98-107) mmol/L Carbon Dioxide (21.6-31.8) mmol/L Anion Gap (4.00-12.00) mmol/L BUN 110 H* (9-20) mg/dL Creatinine 4.77 H (0.66-1.25) mg/dL Est GFR (CKD-EPI)AfAm (60.0-200.0) Est GFR (CKD-EPI)NonAf (60.0-200.0) BUN/Creatinine Ratio (12.00-20.00) Ratio Glucose 190 H (74-99) mg/dL POC Glucose (mg/dL) 188 H (75-99) mg/dL Calcium 7.2 L (8.4-10.2) mg/dL 02/09/20 02/09/20 02/10/20 Range/Units 17:29 20:42 04:42 RBC 3.46 L (4.30-5.90) m/uL Hgb 10.2 L (13.0-17.5) gm/dL Hct 33.6 L (39.0-53.0) % MCHC 30.5 L (31.0-37.0) g/dL Plt Count 65 L (150-450) k/uL Lymphocytes # 0.6 L (1.0-4.8) k/uL Sodium (137-145) mmol/L Potassium (3.5-5.1) mmol/L Chloride (98-107) mmol/L Carbon Dioxide (21.6-31.8) mmol/L Anion Gap (4.00-12.00) mmol/L BUN (9-20) mg/dL Creatinine (0.66-1.25) mg/dL Est GFR (CKD-EPI)AfAm (60.0-200.0) Est GFR (CKD-EPI)NonAf (60.0-200.0) BUN/Creatinine Ratio (12.00-20.00) Ratio Glucose (74-99) mg/dL POC Glucose (mg/dL) 229 H 320 H (75-99) mg/dL Calcium (8.4-10.2) mg/dL 02/10/20 02/10/20 Range/Units 04:42 07:26 RBC (4.30-5.90) m/uL Hgb (13.0-17.5) gm/dL Hct (39.0-53.0) % MCHC (31.0-37.0) g/dL Plt Count (150-450) k/uL Lymphocytes # (1.0-4.8) k/uL Sodium 127 L (137-145) mmol/L Potassium 6.3 H* (3.5-5.1) mmol/L Chloride 92 L (98-107) mmol/L Carbon Dioxide 20.6 L (21.6-31.8) mmol/L Anion Gap 14.40 H (4.00-12.00) mmol/L BUN 123.0 H* (9-20) mg/dL Creatinine 5.4 H (0.66-1.25) mg/dL Est GFR (CKD-EPI)AfAm 12.2 L (60.0-200.0) Est GFR (CKD-EPI)NonAf 10.5 L (60.0-200.0) BUN/Creatinine Ratio 22.78 H (12.00-20.00) Ratio Glucose 334 H (74-99) mg/dL POC Glucose (mg/dL) 324 H (75-99) mg/dL Calcium 7.6 L (8.4-10.2) mg/dL Assessment and Plan Assessment: Impression 1. Worsening kidney function with creatinine 4.5, 4.7, 5.4 this morning significant worsening with change in mental status. ATN from sepsis and possibly cardiorenal syndrome not responding to withdrawal of Lasix and starting IV fluids currently on 75 mL of normal saline. 2. Whiteout right lung with consolidation. 3. Diabetes mellitus 4. Ejection fraction 25%. Nonischemic cardiomyopathy 5. COPD. 6. Anemia hemoglobin is 10.6 7. hyperkalemia, secondary to high blood sugar as well as acute kidney injury 8. Mild hyponatremia secondary to acute kidney injury Recommendation 1. Pierson catheter 2. Treat hyperkalemia with insulin to improve the blood sugar 3. One dose of Kayexalate 15 g 4. Spoke to his sister Criss and she is agreeable to start him on dialysis. We will ask vascular surgery to provide us with a Roge catheter.
[2020-02-10] MEDS ORDERED: SODIUM POLYSTYRENE SULFONATE 15 GM/60 ML BOTTLE PO ONE (11:24)
[2020-02-10] MEDS ORDERED: FUROSEMIDE 10 MG/ML 10 ML VIAL IV STA (11:26)
[2020-02-10 11:59] LABS: Glucose,Whole Blood 299 mg/dL (75-99)
--- NOTE | 2020-02-10 12:13 | P.CN ---
Psychiatric Consult - . Consult date: 02/10/20 Consult:: IDENTIFYING DATA: This patient is a 59-year-old male with significant history of COPD, CHF with ejection fraction of 25% who was admitted for congestive heart failure, lung collapse, and acute kidney injury. HISTORY OF PRESENT ILLNESS: Psychiatry has been consulted for hallucinations, confusion, and forgetfulness. The patient has been petition by his sister as she has been concern that the patient has been increasingly confused and has begun hallucinating. Her primary concern is that the patient will try to leave the hospital against medical advice. The patient currently is not reporting any auditory or visual hallucinations. He reports no previous psychiatric history. He denies any suicidal or homicidal ideation, intention, and/or plan. He is able to recall recent events including naming the President and the President- elect. He is able to identify the date. Of concern, the patient is unable to identify his location. He does report that he is in a "deer blind." He is currently not oriented to place. Review of the patient's medical notes reveal that the patient has been somewhat obtunded for the last few days. Collateral information was provided by the patient's sister reports that the patient's confusion was first evident 2-3 days prior to this admission. She states that he had experienced significant cognitive decline over the last 3 days and this hospital. She reports that there is no prior psychiatric history or history of psychosis for this patient prior to this hospitalization. PAST PSYCHIATRIC HISTORY: The patient and his sister deny any significant psychiatric history. The patient and his sister report no prior psychotropic medications. Patient and sister deny any previous psychiatric hospitalizations. He is not currently open to any outpatient psychiatric follow-up. There have been no prior suicide attempts in the past. PAST MEDICAL HISTORY: Art failure, COPD, CVA, diabetes mellitus, GERD, hyperlipidemia, hypertension, osteoarthritis, pneumonia, renal disease. ALLERGIES: Meperidine, ibuprofen, mayonnaise. CHEMICAL DEPENDENCY HISTORY: Patient and sister deny. FAMILY PSYCHIATRIC/SUBSTANCE USE HISTORY: No only psychiatric histories endorsed. SOCIAL HISTORY: Patient currently lives alone in [place]. He is unmarried. He is of the Spiritism anne. He is supported by his sister Criss lives in [place], [place]. MENTAL STATUS EXAM: General Appearance: Patient appears to be older than stated age, of thin and lean build, has multiple tattoos on his arms. Behavior: Patient is initially lying in bed but sits up during the interview. Eye contact is fair. Speech: Patient's speech is slurred, spontaneous, low in volume. Mood/Affect: Patient reports their mood is "okay", affect is blunted. Suicidality/Homicidality: Patient denies having any suicidal or homicidal ideation intent or plan. Perceptions: Patient denies any auditory hallucinations. He does report that he feels like he is inside a deer blind. Though content/process: Cognition appears to be fluctuating at times. Memory and concentration: Patient is alert and oriented 2 at this time. Concentration is poor. Judgment and insight: poor IMPRESSIONS: Acute encephalopathy PLAN: -At this time patient DOES NOT meet criteria for inpatient psychiatric admission. -Patient DOES NOT have decision making capacity at this time and is unable to reason through and communicate/appreciate the risks, benefits and alternatives to treatment. Due to the patient's fluctuating cognition likely secondary to acute encephalopathy secondary to his multiple medical problems including acute kidney injury and subsequent electrolyte, the patient is unable to engage in appropriate medical decision making. -Delirium precautions recommended with patient including - avoiding use of narcotics and [employer] sedatives, limit anticholinergic medications when possible, frequent re-orientation, minimize use of restraints, open window shades during the day and close them at night -Would recommend the following medication changes/additions: We'll not make any medication changes at this time. Continue your medical management. -Psychiatry will sign off at this point, please contact with any questions. 02/10/20 12:02
[2020-02-10] MEDS: ALPRAZolam 0.25 MG TAB PO PRN (12:49)
[2020-02-10] MEDS: HYDROcodone/APAP 10-325MG 1 EACH TAB PO PRN (12:50)
--- NOTE | 2020-02-10 13:39 | P.GSCN ---
History of Present Illness History of present illness: 59-year-old male, patient came with the high BUN/creatinine and high potassium I was consulted for placement of urgent dialysis catheter. Patient is very restless and not cooperative a tall he has some kind of encephalopathy patient just ate his lunch patient also has history of 4 COPD congestive heart failure and his ejection fraction is 25. Neck is supple no bruit appreciated Chest Eschen has a crackles on her lung bases bilaterally Abdomen soft nontender Vascular femorals are 1+ Plan is we will arrange for dialysis catheter tonight patient to had a full lunch and we'll place his catheter in the Seismograph Operator risk and complication discussed thank you Past Medical History Past Medical History: Heart Failure, COPD, CVA/TIA, Diabetes Mellitus, GERD/Reflux, Hyperlipidemia, Hypertension, Osteoarthritis (OA), Pneumonia, Renal Disease Additional Past Medical History / Comment(s): Severe COPD, chronic hypoxic respiratory failure, home oxygen at 4L/NC ATC, nonishemic cardiomyopathy, AICD/pacer placement, TIA in 2018, pt denies past alcoholism, chronic pancreatitis, 3 pancreatic pseudocysts, IDDM type II, neuropathy biltaral legs/feet, chronic smoker, bilateral tinnitis occasionally, history of perforated left tympanic membranes-QUINAULT left ear, pt states he has been treated for L arm pain with physical therapy but still having problems and has decreased ROM, chronic generalized pain, sinusitis History of Any Multi-Drug Resistant Organisms: None Reported Past Surgical History: AICD, Pacemaker Additional Past Surgical History / Comment(s): colonoscopy, "lump" removed from left side of neck. Past Anesthesia/Blood Transfusion Reactions: No Reported Reaction Type of Cardiac Device: Permanent Pacemaker, AICD Device Placement Date:: 09/2016 Past Psychological History: No Psychological Hx Reported Smoking Status: Current every day smoker Past Alcohol Use History: None Reported Past Drug Use History: None Reported - Past Family History Father Family Medical History: Congestive Heart Failure (CHF), COPD, Diabetes Mellitus Additional Family Medical History / Comment(s): Father is . He had mrsa, asbestoes exposure/lungs Mother Family Medical History: Diabetes Mellitus, Hypertension Additional Family Medical History / Comment(s): Mother is 87yrs old. Medications and Allergies Home Medications Medication Instructions Recorded Confirmed Type HYDROcodone/APAP 10-325MG [Radnor 1 tab PO Q4HR PRN #120 tab 05/18/18 02/02/20 Rx 10-325] Ipratropium/Albuterol Sulfate 1 puff INHALATION RT-QID 02/06/19 02/02/20 History [Combivent Respimat Inhaler] Metoprolol Succinate (ER) [Toprol 25 mg PO DAILY 02/06/19 02/02/20 History XL] Famotidine [Pepcid] 20 mg PO BID PRN 09/23/19 02/02/20 History Furosemide [Lasix] 40 mg PO Q48H 09/23/19 02/02/20 History Nitroglycerin 0.1MG/Hr Patch 1 patch TRANSDERM DAILY PRN 09/23/19 02/02/20 History [Nitro-Dur 0.1MG/Hr Patch] Atorvastatin Calcium [Lipitor] 10 mg PO HS 02/02/20 02/02/20 History Insulin Degludec [Tresiba 12 units SQ DAILY 02/02/20 02/02/20 History Flextouch U-100] Insulin Lispro [humaLOG Kwikpen] See Protocol SQ AC-TID MDD 70 UNITS 02/02/20 02/02/20 History Isosorbide Mononitrate ER [Imdur] 30 mg PO DAILY 02/02/20 02/02/20 History Nicotine 7Mg/24Hr Patch [Habitrol 1 patch TRANSDERM DAILY PRN 02/02/20 02/02/20 History 7Mg/24Hr Patch] Pantoprazole Sodium [Protonix] 40 mg PO DAILY PRN 02/02/20 02/02/20 History Pregabalin 300 mg PO BID 02/02/20 02/02/20 History Zaleplon [Sonata] 10 mg PO HS PRN 02/02/20 02/02/20 History Zenpep 20,000 Iu 1 cap PO W/BRKFST 02/02/20 02/02/20 History diazePAM [Valium] 2 mg PO BID PRN 02/02/20 02/02/20 History Allergies Allergy/AdvReac Type Severity Reaction Status Date / Time meperidine HCl [From Demerol] AdvReac Severe Rapid Verified 02/02/20 14:36 Heart Rate/VOMITING ibuprofen [From Motrin] AdvReac Vomiting Verified 02/02/20 14:36 mayonnaise AdvReac Nausea & Verified 02/02/20 14:36 Vomiting & Diarrhea Surgical - Exam Vital Signs Temp Pulse Resp BP Pulse Ox 98.1 F 95 20 122/72 95 02/02/20 14:34 02/02/20 14:34 02/02/20 14:34 02/02/20 14:34 02/02/20 14:34 Results - Labs 02/10/20 04:42 02/10/20 04:42 Abnormal Lab Results - Last 24 Hours (Table) 02/09/20 02/09/20 02/09/20 Range/Units 13:23 13:23 17:29 RBC 3.61 L (4.30-5.90) m/uL Hgb 10.6 L (13.0-17.5) gm/dL Hct 33.9 L (39.0-53.0) % MCHC (31.0-37.0) g/dL Plt Count 67 L (150-450) k/uL Lymphocytes # 0.5 L (1.0-4.8) k/uL Sodium 126 L (137-145) mmol/L Potassium 5.6 H (3.5-5.1) mmol/L Chloride 91 L (98-107) mmol/L Carbon Dioxide (21.6-31.8) mmol/L Anion Gap (4.00-12.00) mmol/L BUN 110 H* (9-20) mg/dL Creatinine 4.77 H (0.66-1.25) mg/dL Est GFR (CKD-EPI)AfAm (60.0-200.0) Est GFR (CKD-EPI)NonAf (60.0-200.0) BUN/Creatinine Ratio (12.00-20.00) Ratio Glucose 190 H (74-99) mg/dL POC Glucose (mg/dL) 229 H (75-99) mg/dL Calcium 7.2 L (8.4-10.2) mg/dL 02/09/20 02/10/20 02/10/20 Range/Units 20:42 04:42 04:42 RBC 3.46 L (4.30-5.90) m/uL Hgb 10.2 L (13.0-17.5) gm/dL Hct 33.6 L (39.0-53.0) % MCHC 30.5 L (31.0-37.0) g/dL Plt Count 65 L (150-450) k/uL Lymphocytes # 0.6 L (1.0-4.8) k/uL Sodium 127 L (137-145) mmol/L Potassium 6.3 H* (3.5-5.1) mmol/L Chloride 92 L (98-107) mmol/L Carbon Dioxide 20.6 L (21.6-31.8) mmol/L Anion Gap 14.40 H (4.00-12.00) mmol/L BUN 123.0 H* (9-20) mg/dL Creatinine 5.4 H (0.66-1.25) mg/dL Est GFR (CKD-EPI)AfAm 12.2 L (60.0-200.0) Est GFR (CKD-EPI)NonAf 10.5 L (60.0-200.0) BUN/Creatinine Ratio 22.78 H (12.00-20.00) Ratio Glucose 334 H (74-99) mg/dL POC Glucose (mg/dL) 320 H (75-99) mg/dL Calcium 7.6 L (8.4-10.2) mg/dL 02/10/20 02/10/20 Range/Units 07:26 11:58 RBC (4.30-5.90) m/uL Hgb (13.0-17.5) gm/dL Hct (39.0-53.0) % MCHC (31.0-37.0) g/dL Plt Count (150-450) k/uL Lymphocytes # (1.0-4.8) k/uL Sodium (137-145) mmol/L Potassium (3.5-5.1) mmol/L Chloride (98-107) mmol/L Carbon Dioxide (21.6-31.8) mmol/L Anion Gap (4.00-12.00) mmol/L BUN (9-20) mg/dL Creatinine (0.66-1.25) mg/dL Est GFR (CKD-EPI)AfAm (60.0-200.0) Est GFR (CKD-EPI)NonAf (60.0-200.0) BUN/Creatinine Ratio (12.00-20.00) Ratio Glucose (74-99) mg/dL POC Glucose (mg/dL) 324 H 299 H (75-99) mg/dL Calcium (8.4-10.2) mg/dL Diabetes panel 02/09/20 02/10/20 Range/Units 13:23 04:42 Sodium 126 L 127 L (137-145) mmol/L Potassium 5.6 H 6.3 H* (3.5-5.1) mmol/L Chloride 91 L 92 L (98-107) mmol/L Carbon Dioxide 22 20.6 L (22-30) mmol/L BUN 110 H* 123.0 H* (9-20) mg/dL Creatinine 4.77 H 5.4 H (0.66-1.25) mg/dL Glucose 190 H 334 H (74-99) mg/dL Calcium 7.2 L 7.6 L (8.4-10.2) mg/dL Calcium panel 02/09/20 02/10/20 Range/Units 13:23 04:42 Calcium 7.2 L 7.6 L (8.4-10.2) mg/dL Pituitary panel 02/09/20 02/10/20 Range/Units 13:23 04:42 Sodium 126 L 127 L (137-145) mmol/L Potassium 5.6 H 6.3 H* (3.5-5.1) mmol/L Chloride 91 L 92 L (98-107) mmol/L Carbon Dioxide 22 20.6 L (22-30) mmol/L BUN 110 H* 123.0 H* (9-20) mg/dL Creatinine 4.77 H 5.4 H (0.66-1.25) mg/dL Glucose 190 H 334 H (74-99) mg/dL Calcium 7.2 L 7.6 L (8.4-10.2) mg/dL Adrenal panel 02/09/20 02/10/20 Range/Units 13:23 04:42 Sodium 126 L 127 L (137-145) mmol/L Potassium 5.6 H 6.3 H* (3.5-5.1) mmol/L Chloride 91 L 92 L (98-107) mmol/L Carbon Dioxide 22 20.6 L (22-30) mmol/L BUN 110 H* 123.0 H* (9-20) mg/dL Creatinine 4.77 H 5.4 H (0.66-1.25) mg/dL Glucose 190 H 334 H (74-99) mg/dL Calcium 7.2 L 7.6 L (8.4-10.2) mg/dL
[2020-02-10 17:46] LABS: Glucose,Whole Blood 122 mg/dL (75-99)
[2020-02-10] MEDS ORDERED: SODIUM CHLORIDE 0.9% 500 ML 500 ML IV ONE ×2 (17:50→21:41)
[2020-02-10] MEDS ORDERED: MIDAZOLAM 2 MG/2 ML VIAL IV ONE (17:55)
[2020-02-10] MEDS ORDERED: LIDOCAINE 1% INJ 10MG/ML (20 ML MDV) SQ ONE (18:00)
[2020-02-10 18:01] LABS: Hepatitis B Surface AB- Quant 3.5 mIU/mL; Hepatitis B Surface Antibody Non-Reactive (Non-Reactive); Hepatitis B Surface Antigen Non-Reactive (Non-Reactive)
[2020-02-10] MEDS ORDERED: IOPAMIDOL-250 50ML BTL IV ONE (18:08)
[2020-02-10 19:14] LABS: Glucose,Whole Blood 177 mg/dL (75-99)
[2020-02-10] MEDS: NALOXONE 0.4 MG/ML 1 ML VIAL IV PRN ×2 (19:20→19:26)
--- NOTE | 2020-02-10 19:21 | P.PN ---
Subjective Progress Note Date: 02/09/20 Principal diagnosis: Acute on chronic hypoxemic/hypercapnic respiratory failure 02/09/2020 Patient is seen in follow-up on the regular medical floor. He is currently resting comfortably in bed. Awake and alert in no acute distress. He is maintaining good O2 saturations in the upper 90s on 4 L/m per nasal cannula. Afebrile. Hemodynamically stable. Bronchial wash cultures were positive for Enterobacter. He is currently on Zosyn. He remains on bronchodilators. On prednisone. He is very anxious to go home. Patient has been intermittently confused; remains on 4-5 L of oxygen with ECT saturation with minimal activity; patient was discussed with family and patient concern of patient being confused; we will continue with current management; w e'll hold patient's discharge; consult psych for possible evaluation for competency Objective - Vital Signs Vital signs: Vital Signs Temp 97.7 F 02/09/20 04:00 Pulse 76 02/09/20 12:02 Resp 18 02/09/20 08:00 BP 117/72 02/09/20 04:00 Pulse Ox 98 02/09/20 04:00 Intake & Output 02/08/20 02/09/20 02/09/20 18:59 06:59 18:59 Intake Total 82.188 60 Output Total 300 Balance 82.188 -240 Weight 69.8 kg Intake: IV 80 60 0.9% NS KVO 80 60 Intake, IV Titration 2.188 Amount Insulin Regular 100 unit 2.188 In Sodium Chloride 0.9% 100 ml @ Per Protocol IV .Q0M [facility] Rx#:[id number] Output: Urine 300 Other: Voiding Method Toilet Toilet Toilet # Voids 1 # Bowel Movements 1 ABP, PAP, CO, CI - Last Documented Arterial Blood Pressure 183/72 - Exam GENERAL EXAM: Alert, pleasant 59-year-old gentleman, appears older than stated age, on 4 L nasal cannula, comfortable in no apparent distress. HEAD: Normocephalic. NECK: No masses, no JVD. CHEST: No chest wall deformity. LUNGS: Equal air entry with basilar crackles left greater than right, diminished. CVS: S1 and S2 normal with no audible murmur, regular rhythm. ABDOMEN: No hepatosplenomegaly, normal bowel sounds, no guarding or rigidity. SKIN: No rashes EXTREMITIES: There is no peripheral edema. No clubbing, no cyanosis. Peripheral pulses are intact. - Labs CBC & Chem 7: 02/10/20 04:42 02/10/20 04:42 Labs: Abnormal Lab Results - Last 24 Hours (Table) 02/08/20 02/08/20 02/09/20 Range/Units 17:20 20:58 07:30 POC Glucose (mg/dL) 374 H 357 H 231 H (75-99) mg/dL 02/09/20 Range/Units 12:07 POC Glucose (mg/dL) 188 H (75-99) mg/dL Microbiology - Last 24 Hours (Table) 02/03/20 17:30 Gram Stain - Final Pleural Fluid Body Fluid Culture - Final Alpha Hemolytic Streptococcus Enterobacter gergoviae Enterobacter cloacae Coagulase Negative Staph 02/06/20 15:30 Gram Stain - Final Bronchial Washings - Left Bronchial Washings Culture - Final Enterobacter gergoviae Assessment and Plan Assessment: 1 Acute hypoxemic/hypercapnic respiratory failure requiring intubation mechanical ventilator toward support from February 02 through 02/04/2020. Currently on 4 L high flow nasal cannula. Acute exacerbation of systolic congestive heart failure, left lung pleural effusion, left lung collapse. 2 Recurrent left lung pleural effusion with previous thoracentesis with animal fluid returned on 02/03/2020. Fluid positive for of a hemolytic streptococcus, Enterobacter gergoviae, gram-negative bacilli, coag-negative staph. Follow-up chest ultrasound reveals a 6.1 cm pocket however there is his lung tissue visualized within the fluid. Computed tomography scan of the chest pending. 3 Recurrent left lung infiltrate status post bronchoscopy with BAL on 02/03/2020 and again on 02/06/2020. Cultures positive for Enterobacter gergoviae 4 Acute exacerbation of systolic congestive heart failure in a patient with a known ejection fraction 25-30% 5 Acute exacerbation of chronic obstructive pulmonary disease 6 Acute kidney injury; worsening renal failure; we will consult nephrology 7 Hypertension; metoprolol 25 mg daily 8 Hyperlipidemia; Lipitor 10 mg by mouth daily at bedtime 9 Diabetes mellitus with diabetic neuropathy; monitor Accu-Cheks every before meals and at bedtime with insulin sliding scale; Levemir 22 units subcu daily at bedtime DVT prophylaxis; subcu Lovenox CODE STATUS; full code
--- NOTE | 2020-02-10 19:22 | P.PN ---
Subjective Progress Note Date: 02/10/20 Principal diagnosis: Acute on chronic hypoxemic/hypercapnic respiratory failure 02/09/2020 Patient is seen in follow-up on the regular medical floor. He is currently resting comfortably in bed. Awake and alert in no acute distress. He is maintaining good O2 saturations in the upper 90s on 4 L/m per nasal cannula. Afebrile. Hemodynamically stable. Bronchial wash cultures were positive for Enterobacter. He is currently on Zosyn. He remains on bronchodilators. On prednisone. He is very anxious to go home. Patient has been intermittently confused; remains on 4-5 L of oxygen with ECT saturation with minimal activity; patient was discussed with family and patient concern of patient being confused; we will continue with current management; w e'll hold patient's discharge; consult psych for possible evaluation for competency 02/10/2020 Patient is seen and evaluated resting comfortably in bed; patient has been eval uated by psych and is deemed medically unable to make sound decisions; patient's renal function continues to worsen; nephrology is following and inderjit fasting vascular surgery to evaluate patient for placement of urgent dialysis catheter Objective - Vital Signs Vital signs: Vital Signs Temp 97.6 F 02/10/20 05:28 Pulse 88 02/10/20 07:49 Resp 20 02/10/20 05:28 BP 112/65 02/10/20 05:28 Pulse Ox 98 02/10/20 05:28 Intake & Output 02/09/20 02/10/20 02/10/20 18:59 06:59 18:59 Intake Total 600 700 Output Total 298 Balance 600 402 Intake: IV 100 Piperacillin-Tazobactam 3 100 .375 gm In Sodium Chloride 0.9% 100 ml @ 25 mls/hr IVPB Q12H [facility] Rx# :[id number] Intake, IV Titration 600 Amount Sodium Chloride 0.9% 1, 600 000 ml @ 75 mls/hr IV . [id number] [facility] Rx#:[id number] Oral 600 Output: Post Void Residual 298 Other: Voiding Method Toilet Toilet Urinal # Voids 1 1 ABP, PAP, CO, CI - Last Documented Arterial Blood Pressure 183/72 - Exam GENERAL EXAM: Alert, pleasant 59-year-old gentleman, appears older than stated age, on 4 L nasal cannula, comfortable in no apparent distress. HEAD: Normocephalic. NECK: No masses, no JVD. CHEST: No chest wall deformity. LUNGS: Equal air entry with basilar crackles left greater than right, diminished. CVS: S1 and S2 normal with no audible murmur, regular rhythm. ABDOMEN: No hepatosplenomegaly, normal bowel sounds, no guarding or rigidity. SKIN: No rashes EXTREMITIES: There is no peripheral edema. No clubbing, no cyanosis. Peripheral pulses are intact. - Labs CBC & Chem 7: 02/10/20 04:42 02/10/20 04:42 Labs: Abnormal Lab Results - Last 24 Hours (Table) 02/09/20 02/09/20 02/09/20 Range/Units 13:23 13:23 17:29 RBC 3.61 L (4.30-5.90) m/uL Hgb 10.6 L (13.0-17.5) gm/dL Hct 33.9 L (39.0-53.0) % MCHC (31.0-37.0) g/dL Plt Count 67 L (150-450) k/uL Lymphocytes # 0.5 L (1.0-4.8) k/uL Sodium 126 L (137-145) mmol/L Potassium 5.6 H (3.5-5.1) mmol/L Chloride 91 L (98-107) mmol/L Carbon Dioxide (21.6-31.8) mmol/L Anion Gap (4.00-12.00) mmol/L BUN 110 H* (9-20) mg/dL Creatinine 4.77 H (0.66-1.25) mg/dL Est GFR (CKD-EPI)AfAm (60.0-200.0) Est GFR (CKD-EPI)NonAf (60.0-200.0) BUN/Creatinine Ratio (12.00-20.00) Ratio Glucose 190 H (74-99) mg/dL POC Glucose (mg/dL) 229 H (75-99) mg/dL Calcium 7.2 L (8.4-10.2) mg/dL 02/09/20 02/10/20 02/10/20 Range/Units 20:42 04:42 04:42 RBC 3.46 L (4.30-5.90) m/uL Hgb 10.2 L (13.0-17.5) gm/dL Hct 33.6 L (39.0-53.0) % MCHC 30.5 L (31.0-37.0) g/dL Plt Count 65 L (150-450) k/uL Lymphocytes # 0.6 L (1.0-4.8) k/uL Sodium 127 L (137-145) mmol/L Potassium 6.3 H* (3.5-5.1) mmol/L Chloride 92 L (98-107) mmol/L Carbon Dioxide 20.6 L (21.6-31.8) mmol/L Anion Gap 14.40 H (4.00-12.00) mmol/L BUN 123.0 H* (9-20) mg/dL Creatinine 5.4 H (0.66-1.25) mg/dL Est GFR (CKD-EPI)AfAm 12.2 L (60.0-200.0) Est GFR (CKD-EPI)NonAf 10.5 L (60.0-200.0) BUN/Creatinine Ratio 22.78 H (12.00-20.00) Ratio Glucose 334 H (74-99) mg/dL POC Glucose (mg/dL) 320 H (75-99) mg/dL Calcium 7.6 L (8.4-10.2) mg/dL 02/10/20 02/10/20 Range/Units 07:26 11:58 RBC (4.30-5.90) m/uL Hgb (13.0-17.5) gm/dL Hct (39.0-53.0) % MCHC (31.0-37.0) g/dL Plt Count (150-450) k/uL Lymphocytes # (1.0-4.8) k/uL Sodium (137-145) mmol/L Potassium (3.5-5.1) mmol/L Chloride (98-107) mmol/L Carbon Dioxide (21.6-31.8) mmol/L Anion Gap (4.00-12.00) mmol/L BUN (9-20) mg/dL Creatinine (0.66-1.25) mg/dL Est GFR (CKD-EPI)AfAm (60.0-200.0) Est GFR (CKD-EPI)NonAf (60.0-200.0) BUN/Creatinine Ratio (12.00-20.00) Ratio Glucose (74-99) mg/dL POC Glucose (mg/dL) 324 H 299 H (75-99) mg/dL Calcium (8.4-10.2) mg/dL Assessment and Plan Assessment: 1 Acute hypoxemic/hypercapnic respiratory failure requiring intubation mechanical ventilator toward support from February 02 through 02/04/2020. Currently on 4 L high flow nasal cannula. Acute exacerbation of systolic congestive heart failure, left lung pleural effusion, left lung collapse. 2 Recurrent left lung pleural effusion with previous thoracentesis with animal fluid returned on 02/03/2020. Fluid positive for of a hemolytic streptococcus, Enterobacter gergoviae, gram-negative bacilli, coag-negative staph. Follow-up chest ultrasound reveals a 6.1 cm pocket however there is his lung tissue visualized within the fluid. Computed tomography scan of the chest pending. 3 Recurrent left lung infiltrate status post bronchoscopy with BAL on 02/03/2020 and again on 02/06/2020. Cultures positive for Enterobacter gergoviae 4 Acute exacerbation of systolic congestive heart failure in a patient with a known ejection fraction 25-30% 5 Acute exacerbation of chronic obstructive pulmonary disease 6 Acute kidney injury; worsening renal failure; we will consult nephrology 7 Hypertension; metoprolol 25 mg daily 8 Hyperlipidemia; Lipitor 10 mg by mouth daily at bedtime 9 Diabetes mellitus with diabetic neuropathy; monitor Accu-Cheks every before meals and at bedtime with insulin sliding scale; Levemir 22 units subcu daily at bedtime DVT prophylaxis; subcu Lovenox CODE STATUS; full code
[2020-02-10 19:30] LABS: ABG Oxygen Saturation 84.1 % (94-97); ABG PO2 78 mmHg (83-108); Allen Test Performed? Yes
[2020-02-10 20:17] LABS: ABG PH <6.80 (7.35-7.45)
[2020-02-10 20:18] LABS: ABG PCO2 >120 mmHg (35-45)
[2020-02-10 20:22] LABS: Glucose,Whole Blood 182 mg/dL (75-99)
--- NOTE | 2020-02-10 20:32 | XR ---
EXAMINATION TYPE: XR chest 1V portable DATE OF EXAM: 02/10/2020 COMPARISON: Today HISTORY: Tube placement TECHNIQUE: FINDINGS: There is endotracheal tube 5 cm from the soto. There is left side hydrothorax. There is m oderate right pleural effusion. There is right lower lobe pulmonary infiltrate. There is left axillar y pacemaker. There is nasogastric tube in the stomach. IMPRESSION: Tubing in good position. Left side hydrothorax unchanged. Right pleural effusion and righ t lower lobe infiltrate probably not changed. There is probably congestive heart failure.
[2020-02-10 20:50] LABS: African American GFR (CKD) 11 (>60 ml/min/1.73 sqM); Anion Gap 14 mmol/L; Calcium 7.3 mg/dL (8.4-10.2); Carbon Dioxide 21 mmol/L (22-30); Chloride 92 mmol/L (98-107); Glucose 180 mg/dL (74-99); Magnesium 2.2 mg/dL (1.6-2.3); Non-African American GFR(CKD) 10 (>60 ml/min/1.73 sqM); Sodium 127 mmol/L (137-145)
[2020-02-10 21:08] LABS: Blood Urea Nitrogen 123 mg/dL (9-20); Potassium 6.8 mmol/L (3.5-5.1)
[2020-02-10] MEDS ORDERED: DEXTROSE 50% SYRINGE 50 ML IVP STA (21:16)
[2020-02-10] MEDS ORDERED: INSULIN REGULAR 100 UNIT/ML VIAL IV ONE (21:17)
[2020-02-10 21:25] LABS: Allen Test Performed? Yes
[2020-02-10] MEDS: ATORVASTATIN 10 MG TAB PO SCH (21:27)
[2020-02-10] MEDS: CHLORHEXIDINE GLUCONATE 15 ML CUP MUCOUS MEM SCH (21:27)
[2020-02-10] MEDS: INSULIN DETEMIR (LEVEMIR) 100 UNIT/ML SYR SQ SCH (21:27)
[2020-02-10 21:29] LABS: HCT 33.3 % (39.0-53.0); HGB 10.6 gm/dL (13.0-17.5); Hypochromasia Moderate; MCH 30.3 pg (25.0-35.0); MCHC 31.8 g/dL (31.0-37.0); MCV 95.4 fL (80.0-100.0); RBC 3.49 m/uL (4.30-5.90); RDW 14.2 % (11.5-15.5); WBC 4.4 k/uL (3.8-10.6)
[2020-02-10 21:31] LABS: Platelet Count 69 k/uL (150-450)
[2020-02-10 21:32] LABS: ABG Base Excess -10.5 mmol/L; ABG HCO3 18 mmol/L (21-25); ABG Oxygen Saturation 99.1 % (94-97); ABG PCO2 50 mmHg (35-45); ABG PO2 121 mmHg (83-108); ABG TCO2 20 mmol/L (19-24)
[2020-02-10 21:38] LABS: ABG PH 7.17 (7.35-7.45)
[2020-02-10] MEDS ORDERED: SODIUM CHLORIDE 0.9% 1,000 ML IV ONE (21:41)
[2020-02-10 22:18] LABS: Lymphocytes # (M) 0.31 k/uL (1.0-4.8); Metamyelocytes # (M) 0.04 k/uL (0); Metamyelocytes % 1 %; Monocytes # (M) 0.18 k/uL (0-1.0); Myelocytes # (M) 0.13 k/uL (0); Myelocytes % 3 %; Neutrophils # (M) 3.78 k/uL (1.3-7.7); Neutrophils % (M) 86 %; Nucleated Red Blood Cells 0 /100 WBC (0-0); Total Cells Counted 200
--- NOTE | 2020-02-10 23:55 | PN ---
PROGRESS NOTE PULMONARY/CRITICAL CARE PROGRESS NOTE: DATE OF SERVICE: February 10, 2020 This is a 59-year-old gentleman with a history of acute hypoxemic and hypercapnic respiratory failure, requiring intubation and mechanical ventilation from February 02 through February 04, 2020. The patient was actually seen last Tuesday by my partner, Dr. Steiner. I saw him on the , which was Tuesday and got him extubated at that time. He was admitted with a diagnosis of systolic CHF, left-sided pleural effusion, and left lung collapse. Anyway, the patient seems to be doing much better. He is currently on O2 at 5 L by nasal cannula. He has no particular complaints. He is coughing. He is not producing any phlegm. No chest pain or chest discomfort. No nausea, vomiting or diarrhea. PHYSICAL EXAMINATION: VITAL SIGNS: Current vital signs are reviewed. His temperature is 97.6, heart rate 92, respiratory rate 20, blood pressure is 112/65 and 5 L saturation is 97%. GENERAL: He appears in no acute distress. HEENT: Examination is grossly unremarkable. Nasal O2 noted. NECK: Supple. Full range of motion. No adenopathy or thyromegaly. Neck veins are flat. CARDIOVASCULAR: Examination reveals regular rhythm and rate. S1, S2 normal. No murmur. Heart sounds are distant. LUNGS: Reveal diminished breath sounds on the left than the right. There are some crackles at both bases. ABDOMEN: Soft. EXTREMITIES: Are intact. No cyanosis, clubbing, or edema. SKIN: Without rash. NEUROLOGIC: Examination is brief but nonfocal. LABS: Labs are reviewed. White count 5.1, hemoglobin 10.2, hematocrit 33.6, platelet count 65,000. Sodium 127, potassium 6.3, chloride 92, CO2 of 20. Anion gap 14. BUN and creatinine were 123 and 5.4. Calcium was 7.6. Microbiology reveals bronchial washes from the showing Enterobacter gergoviae. Pleural fluid from the shows evidence of alpha hemolytic Streptococcus, Enterobacter gergoviae, Enterobacter cloacae and coag-negative staph. The most recent chest x-ray dated February 09 showed essentially stable chest, with complete opacification of the left hemithorax. CURRENT MEDICATIONS: Current medications are reviewed. The patient is currently on Xanax, Lipitor, Symbicort, Lovenox, Holdrege, insulin, DuoNeb, Imdur, metoprolol, Narcan, nicotine patch, Protonix, Zosyn, prednisone Lyrica, saline IV, and Kayexalate. ASSESSMENT: 1. Acute hypoxemic and hypercapnic respiratory failure, requiring intubation on the and extubation on the 03 of February. 2. Systolic congestive heart failure. 3. Left lung collapse. 4. Left pleural effusion, status post thoracentesis. 5. Pleural space infection secondary to Streptococcus, Enterobacter, Coagulase- Negative staph, and Enterobacter cloacae. 6. Status post bronchoscopy with BAL on February 02 and subsequently again on February 05 without much improvement in the left opacification. 7. Acute exacerbation of systolic congestive heart failure with ejection fraction of 25% and 30%. 8. Chronic obstructive pulmonary disease exacerbation. 9. Chronic tobacco dependence. 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 11.Acute kidney injury. 12.Hypertension. 13.Hyperlipidemia. 14.Diabetes mellitus with diabetic neuropathy. 15.Gastroesophageal reflux disease. 16.Nonischemic cardiomyopathy, status post AICD placement. 17.Chronic pancreatitis with pancreatic exocrine insufficiency. 18.History of pancreatic pseudocyst. 19.General medical debility. PLAN: The patient has been seen by Infectious Diseases. The patient is currently on Zosyn. We will continue to titrate the FiO2. Despite repeated chest x-rays, bronchoscopy x2 and thoracentesis, the left lung remains opacified. Will continue to follow. Prognosis is guarded. MMODL / IJN: [id number] /
[2020-02-11 00:35] LABS: Glucose,Whole Blood 158 mg/dL (75-99)
[2020-02-11] MEDS: INSULIN ASPART (NovoLOG) 100 UNIT/ML VIAL SQ SCH ×4 (00:45→19:24)
[2020-02-11] MEDS: PIPERACILLIN-TAZOBACTAM 3.375 GM in SODIUM CHLORIDE 0.9% 100 ML IVPB SCH ×2 (00:45→11:39)
[2020-02-11 05:11] LABS: Basophils % (A) 0 %; Eosinophils % (A) 1 %; HCT 26.7 % (39.0-53.0); Lymphocytes # (A) 0.4 k/uL (1.0-4.8); Lymphocytes % (A) 11 %; MCH 29.5 pg (25.0-35.0); MCHC 32.3 g/dL (31.0-37.0); MCV 91.2 fL (80.0-100.0); Mean Platelet Volume 10.7; Monocytes # (A) 0.5 k/uL (0-1.0); Monocytes % (A) 13 %; Neutrophils # (A) 2.8 k/uL (1.3-7.7); Neutrophils % (A) 72 %; RBC 2.93 m/uL (4.30-5.90); RDW 14.5 % (11.5-15.5); WBC 3.9 k/uL (3.8-10.6)
[2020-02-11 05:15] LABS: HGB 8.6 gm/dL (13.0-17.5); Platelet Count 55 k/uL (150-450)
[2020-02-11 05:26] LABS: Potassium 4.6 mmol/L (3.5-5.1)
[2020-02-11] MEDS: SODIUM CHLORIDE 0.9% 1,000 ML IV SCH ×2 (05:44→19:24)
[2020-02-11 06:08] LABS: ABG Base Excess -4.2 mmol/L; ABG HCO3 21 mmol/L (21-25); ABG Oxygen Saturation 97.2 % (94-97); ABG PCO2 37 mmHg (35-45); ABG PH 7.36 (7.35-7.45); ABG PO2 96 mmHg (83-108); ABG TCO2 22 mmol/L (19-24); Allen Test Performed? Yes
--- NOTE | 2020-02-11 06:59 | PCN ---
PROCEDURE NOTE PREOPERATIVE DIAGNOSES: 1. Acute on chronic . 2. High potassium. POSTOPERATIVE DIAGNOSES: 1. Acute on chronic . 2. High potassium. PROCEDURE: Ultrasound-guided right dialysis catheter placed, right femoral approach. DESCRIPTION OF THE PROCEDURE: The patient was brought to the cytogenetics laboratory manager. Right groin was prepped and draped in usual sterile manner. Ultrasound-guided micropuncture introduced right femoral vein with local and IV sedation. A 4-Urdu dilator advanced on the top of the guidewire then we passed a regular guidewire and dilator was advanced. Then after that we passed a dialysis catheter, flushed with heparin saline and secured with 3-0 nylon. Dressing applied. Patient tolerated the procedure well. MMODL / IJN: [id number] /
--- NOTE | 2020-02-11 07:10 | XR ---
EXAMINATION TYPE: XR chest 1V portable DATE OF EXAM: 02/11/2020 COMPARISON: 02/10/2020 HISTORY: Tube placement TECHNIQUE: Single frontal view of the chest is obtained. FINDINGS: There is a right-sided consolidation and pleural effusion. ET and NG tube stable. Cardiac device stable. Complete opacification left hemithorax. No pneumothorax. IMPRESSION: Diffuse pleural-parenchymal changes are stable with complete opacification left hemithor ax. Underlying CHF the differential diagnosis. Mucous plug or endobronchial lesion on the left in the differential diagnosis correlate clinically. Underlying pneumonia not excluded
[2020-02-11] MEDS: SYMBICORT 160-4.5 MCG INHALER INHALATION SCH ×2 (07:43→21:30)
[2020-02-11] MEDS: IPRATROPIUM-ALBUTEROL 3 ML NEB INHALATION SCH ×4 (07:44→21:30)
[2020-02-11 07:45] LABS: Appearance,Urine Turbid (Clear); Bacteria,Urine Rare /hpf; Bilirubin,Urine Negative (Negative); Blood,Urine Large (Negative); Budding Yeast,Urine Many /hpf; Color,Urine Light Red; Glucose,Urine (UA) Negative (Negative); Ketones,Urine Negative (Negative); Leukocyte Esterase,Urine Large (Negative); Mucus,Urine Rare /hpf; Nitrite,Urine Negative (Negative); PH, Urine 5.5 (5.0-8.0); Protein,Urine 1+ (Negative); RBC,Urine >182 /hpf (0-5); Specific Gravity,Urine 1.013 (1.001-1.035); Squamous Epithelial Cell,Urine 1 /hpf (0-4); Urobilinogen,Urine <2.0 mg/dL (<2.0)
[2020-02-11] MEDS: LIPASE 5,000/PROTEASE 17,000/AMYLASE 24,000 PO SCH (08:50)
[2020-02-11] MEDS: ISOSORBIDE MONONITRATE ER 30 MG TAB.ER.24H PO SCH (08:50)
[2020-02-11] MEDS: METOPROLOL SUCCINATE (ER) 25 MG TAB.ER.24H PO SCH (08:50)
--- NOTE | 2020-02-11 10:19 | IR ---
Fluoroscopy HISTORY: Dialysis catheter placement 0.9 minutes fluoroscopy time supplied to the referring clinician. 213 intraoperative C-arm images do cument the procedure. See dictated report from vascular surgery.
[2020-02-11] MEDS ORDERED: DEXTROSE 50% SYRINGE 50 ML IVP ONE (10:20)
[2020-02-11] MEDS ORDERED: DEXTROSE 50% SYRINGE 50 ML IVP STA ×3 (10:23→15:15)
[2020-02-11 10:30] LABS: Glucose,Whole Blood 46 mg/dL (75-99)
[2020-02-11 10:36] LABS: Glucose,Whole Blood 137 mg/dL (75-99)
[2020-02-11] MEDS: predniSONE 10 MG TAB PO SCH (11:37)
[2020-02-11] MEDS: ENOXAPARIN 30 MG/0.3 ML SYRINGE SQ SCH (11:37)
[2020-02-11] MEDS: PREGABALIN 100 MG CAP PO SCH ×2 (11:37→21:14)
[2020-02-11] MEDS: CHLORHEXIDINE GLUCONATE 15 ML CUP MUCOUS MEM SCH ×2 (11:37→21:14)
[2020-02-11 11:48] LABS: Potassium 6.3 mmol/L (3.5-5.5)
[2020-02-11 13:00] LABS: Glucose,Whole Blood 32 mg/dL (75-99)
[2020-02-11 13:19] LABS: Glucose,Whole Blood 121 mg/dL (75-99)
[2020-02-11] MEDS: DEXTROSE 5% IN WATER 1,000 ML IV SCH (13:36)
--- NOTE | 2020-02-11 14:40 | P.PN ---
Subjective Patient is seen in follow-up for acute kidney injury. Patient was found unresponsive yesterday evening after he got his dialysis catheter. He is c urrently intubated and sedated. He is on 40% FiO2. Not on any vasopressors. Urine output 15-20 mL an hour. So far is at 2 treatments of hemodialysis without any issues. Blood sugars were low and he was started on D5 W this morning. Vital signs are stable. General: The patient appeared well nourished and normally developed. HEENT: Head exam is unremarkable. Intubated. Lungs: Breath sounds decreased. HEART: Rate and Rhythm are regular. ABDOMEN: Soft, no distention noted. EXTREMITITES: 1+ edema. Objective - Vital Signs Vital signs: Vital Signs Temp 98.2 F 02/11/20 12:00 Pulse 67 02/11/20 14:00 Resp 16 02/11/20 14:00 BP 106/63 02/11/20 14:00 Pulse Ox 94 L 02/11/20 14:00 Intake & Output 02/10/20 02/11/20 02/11/20 18:59 06:59 18:59 Intake Total 750 813.739 503.085 Output Total 275 125 Balance 750 538.739 378.085 Intake: IV 150 775 470 Dextrose 5% in Water 1, 150 000 ml @ 75 mls/hr IV . [id number] [facility] Rx#:[id number] Piperacillin-Tazobactam 3 100 100 75 .375 gm In Sodium Chloride 0.9% 100 ml @ 25 mls/hr IVPB Q12H [facility] Rx# :[id number] Sodium Chloride 0.9% 1, 675 245 000 ml @ 10 mls/hr IV . Q24H [facility] Rx#:[id number] Intake, IV Titration 600 38.739 33.085 Amount Sodium Chloride 0.9% 1, 600 000 ml @ 10 mls/hr IV . Q24H [facility] Rx#:[id number] propofoL 1,000 mg In 38.739 33.085 Empty Bag 1 bag @ Titrate IV .Q0M [facility] Rx#: [id number] Output: Urine 275 125 Hemodialysis 0 Other: Voiding Method Toilet Indwelling Catheter Indwelling Catheter Urinal ABP, PAP, CO, CI - Last Documented Arterial Blood Pressure 183/72 - Labs CBC & Chem 7: 02/11/20 04:12 02/11/20 04:12 Labs: Abnormal Lab Results - Last 24 Hours (Table) 02/10/20 02/10/20 02/10/20 Range/Units 04:42 17:35 19:04 RBC (4.30-5.90) m/uL Hgb (13.0-17.5) gm/dL Hct (39.0-53.0) % Plt Count (150-450) k/uL Lymphocytes # (1.0-4.8) k/uL Lymphocytes # (Manual) (1.0-4.8) k/uL Metamyelocytes # (Man) (0) k/uL Myelocytes # (Manual) (0) k/uL ABG pH (7.35-7.45) ABG pCO2 (35-45) mmHg ABG pO2 (83-108) mmHg ABG HCO3 (21-25) mmol/L ABG O2 Saturation (94-97) % Sodium (137-145) mmol/L Potassium 6.3 H* (3.5-5.5) mmol/L Chloride (98-107) mmol/L Carbon Dioxide (22-30) mmol/L BUN 123.0 H* (9.0-27.0) mg/dL Creatinine (0.66-1.25) mg/dL Glucose (74-99) mg/dL POC Glucose (mg/dL) 122 H 177 H (75-99) mg/dL Calcium (8.4-10.2) mg/dL Urine Protein (Negative) Urine Blood (Negative) Ur Leukocyte Esterase (Negative) Urine RBC (0-5) /hpf Urine Bacteria (None) /hpf Urine Mucus (None) /hpf Urine Yeast (Budding) (None) /hpf 02/10/20 02/10/20 02/10/20 Range/Units 19:25 20:17 20:17 RBC 3.49 L (4.30-5.90) m/uL Hgb 10.6 L (13.0-17.5) gm/dL Hct 33.3 L (39.0-53.0) % Plt Count 69 L (150-450) k/uL Lymphocytes # (1.0-4.8) k/uL Lymphocytes # (Manual) 0.31 L (1.0-4.8) k/uL Metamyelocytes # (Man) 0.04 H (0) k/uL Myelocytes # (Manual) 0.13 H (0) k/uL ABG pH <6.80 L* (7.35-7.45) ABG pCO2 >120 H* (35-45) mmHg ABG pO2 78 L (83-108) mmHg ABG HCO3 (21-25) mmol/L ABG O2 Saturation 84.1 L (94-97) % Sodium 127 L (137-145) mmol/L Potassium 6.8 H* (3.5-5.5) mmol/L Chloride 92 L (98-107) mmol/L Carbon Dioxide 21 L (22-30) mmol/L BUN 123 H* (9.0-27.0) mg/dL Creatinine 5.83 H (0.66-1.25) mg/dL Glucose 180 H (74-99) mg/dL POC Glucose (mg/dL) (75-99) mg/dL Calcium 7.3 L (8.4-10.2) mg/dL Urine Protein (Negative) Urine Blood (Negative) Ur Leukocyte Esterase (Negative) Urine RBC (0-5) /hpf Urine Bacteria (None) /hpf Urine Mucus (None) /hpf Urine Yeast (Budding) (None) /hpf 02/10/20 02/10/20 02/11/20 Range/Units 20:20 21:26 00:34 RBC (4.30-5.90) m/uL Hgb (13.0-17.5) gm/dL Hct (39.0-53.0) % Plt Count (150-450) k/uL Lymphocytes # (1.0-4.8) k/uL Lymphocytes # (Manual) (1.0-4.8) k/uL Metamyelocytes # (Man) (0) k/uL Myelocytes # (Manual) (0) k/uL ABG pH 7.17 L* (7.35-7.45) ABG pCO2 50 H (35-45) mmHg ABG pO2 121 H (83-108) mmHg ABG HCO3 18 L (21-25) mmol/L ABG O2 Saturation 99.1 H (94-97) % Sodium (137-145) mmol/L Potassium (3.5-5.5) mmol/L Chloride (98-107) mmol/L Carbon Dioxide (22-30) mmol/L BUN (9.0-27.0) mg/dL Creatinine (0.66-1.25) mg/dL Glucose (74-99) mg/dL POC Glucose (mg/dL) 182 H 158 H (75-99) mg/dL Calcium (8.4-10.2) mg/dL Urine Protein (Negative) Urine Blood (Negative) Ur Leukocyte Esterase (Negative) Urine RBC (0-5) /hpf Urine Bacteria (None) /hpf Urine Mucus (None) /hpf Urine Yeast (Budding) (None) /hpf 02/11/20 02/11/20 02/11/20 Range/Units 04:12 04:12 06:03 RBC 2.93 L (4.30-5.90) m/uL Hgb 8.6 L D (13.0-17.5) gm/dL Hct 26.7 L (39.0-53.0) % Plt Count 55 L (150-450) k/uL Lymphocytes # 0.4 L (1.0-4.8) k/uL Lymphocytes # (Manual) (1.0-4.8) k/uL Metamyelocytes # (Man) (0) k/uL Myelocytes # (Manual) (0) k/uL ABG pH (7.35-7.45) ABG pCO2 (35-45) mmHg ABG pO2 (83-108) mmHg ABG HCO3 (21-25) mmol/L ABG O2 Saturation 97.2 H (94-97) % Sodium 129 L (137-145) mmol/L Potassium (3.5-5.5) mmol/L Chloride (98-107) mmol/L Carbon Dioxide 20 L (22-30) mmol/L BUN 87 H (9.0-27.0) mg/dL Creatinine 3.98 H (0.66-1.25) mg/dL Glucose (74-99) mg/dL POC Glucose (mg/dL) (75-99) mg/dL Calcium 7.0 L (8.4-10.2) mg/dL Urine Protein (Negative) Urine Blood (Negative) Ur Leukocyte Esterase (Negative) Urine RBC (0-5) /hpf Urine Bacteria (None) /hpf Urine Mucus (None) /hpf Urine Yeast (Budding) (None) /hpf 02/11/20 02/11/20 02/11/20 Range/Units 07:10 10:19 10:34 RBC (4.30-5.90) m/uL Hgb (13.0-17.5) gm/dL Hct (39.0-53.0) % Plt Count (150-450) k/uL Lymphocytes # (1.0-4.8) k/uL Lymphocytes # (Manual) (1.0-4.8) k/uL Metamyelocytes # (Man) (0) k/uL Myelocytes # (Manual) (0) k/uL ABG pH (7.35-7.45) ABG pCO2 (35-45) mmHg ABG pO2 (83-108) mmHg ABG HCO3 (21-25) mmol/L ABG O2 Saturation (94-97) % Sodium (137-145) mmol/L Potassium (3.5-5.5) mmol/L Chloride (98-107) mmol/L Carbon Dioxide (22-30) mmol/L BUN (9.0-27.0) mg/dL Creatinine (0.66-1.25) mg/dL Glucose (74-99) mg/dL POC Glucose (mg/dL) 46 L 137 H (75-99) mg/dL Calcium (8.4-10.2) mg/dL Urine Protein 1+ H (Negative) Urine Blood Large H (Negative) Ur Leukocyte Esterase Large H (Negative) Urine RBC >182 H (0-5) /hpf Urine Bacteria Rare H (None) /hpf Urine Mucus Rare H (None) /hpf Urine Yeast (Budding) Many H (None) /hpf 02/11/20 02/11/20 Range/Units 12:58 13:18 RBC (4.30-5.90) m/uL Hgb (13.0-17.5) gm/dL Hct (39.0-53.0) % Plt Count (150-450) k/uL Lymphocytes # (1.0-4.8) k/uL Lymphocytes # (Manual) (1.0-4.8) k/uL Metamyelocytes # (Man) (0) k/uL Myelocytes # (Manual) (0) k/uL ABG pH (7.35-7.45) ABG pCO2 (35-45) mmHg ABG pO2 (83-108) mmHg ABG HCO3 (21-25) mmol/L ABG O2 Saturation (94-97) % Sodium (137-145) mmol/L Potassium (3.5-5.5) mmol/L Chloride (98-107) mmol/L Carbon Dioxide (22-30) mmol/L BUN (9.0-27.0) mg/dL Creatinine (0.66-1.25) mg/dL Glucose (74-99) mg/dL POC Glucose (mg/dL) 32 L 121 H (75-99) mg/dL Calcium (8.4-10.2) mg/dL Urine Protein (Negative) Urine Blood (Negative) Ur Leukocyte Esterase (Negative) Urine RBC (0-5) /hpf Urine Bacteria (None) /hpf Urine Mucus (None) /hpf Urine Yeast (Budding) (None) /hpf Microbiology - Last 24 Hours (Table) 02/10/20 20:05 Sputum Culture - Preliminary Sputum Assessment and Plan Plan: Assessment: 1. Acute kidney injury secondary to ATN secondary to sepsis and cardiorenal syndrome. He is status post diuresis. Started on hemodialysis February 09. No hydronephrosis noted on kidney ultrasound. 2. Whiteout of the right lung. Possibly pneumonia. No fluid obtained with thoracentesis. Status post bronchoscopy with removal of mucous plugs. 3. Acute on chronic systolic CHF 30 fraction of 25% with moderate mitral regurgitation. 4. Acute hypoxic and hypercapnic respiratory failure. 5. Hyperkalemia secondary to acute kidney injury and metabolic acidosis. 6. Hyponatremia secondary to acute kidney injury. Hypervolemic. 7. Pleural space infection maintained on antibiotics. 8. Chronic kidney disease stage III with baseline creatinine in the range of 1.1-1.5. Etiology is most likely diabetic kidney disease. 9. Hypoglycemia maintained on D5 W. Plan: Hemodialysis tomorrow with goal 1-1.5 L ultrafiltration. Wean FiO2. Continue to monitor renal function and urine output. He was given high-dose Lasix February 09 with no significant improvement in urine output.
[2020-02-11 15:21] LABS: Glucose,Whole Blood 53 mg/dL (75-99)
[2020-02-11 15:31] LABS: Glucose,Whole Blood 155 mg/dL (75-99)
--- NOTE | 2020-02-11 16:22 | P.PN ---
Subjective Progress Note Date: 02/11/20 59-year-old male patient is well-known to me and the patient is currently in the intensive care unit after being reintubated yesterday for respiratory support for an extensive left lung pneumonia. Note that the patient required intubation mechanical ventilation earlier and the patient was successfully extubated on 02/04/2020. His pulmonary workup that included a bronchoscopy and the lavage that showed Enterobacter and the same micrograms and was also cultured from the pleural fluid that was aspirated on 02/03/2020. The patient currently remains on IV antibiotics and the patient is receiving IV Zosyn. Noted the chest exit shown significant consolidation and atelectasis of the left lung in addition to a small left-sided pleural effusion. Overnight, the patient became more hypoxic and less responsive. He had to be reintubated and he was brought into the intensive care unit for further care. This morning, the patient is on propofol running at 10 mg per KG per minute. He is easily arousable while being on sedation. He is also receiving normal sed rate of 75 mL an hour. He remains on assist control mode of ventilation at the rate of 24 the tidal volume of 450 and FiO2 of 40% with a PEEP of 5. The blood gas showed pH of 7.36 with a pCO2 of 37 and pO2 95. The patient is currently on no pressors. He is maintaining his own blood pressure. No fever. No chills. No leukocytosis with a white cell count 3.9. He has developed an acute kidney injury. As mentioned earlier creatinine came up to 5.8 and currently is down to 3.98 and the patient is going to require another session of hemodialysis today. The patient will be kept in ICU for now. I'm suggesting a repeat CAT scan of the chest to reevaluate the left lung. Based on my earlier review of the CAT scan that was done earlier, the patient has volume loss and extensive consolidation with a component of pleural fluid. I think this is essentially small at this point in time. He is on a prednisone burst taper currently on 30 mg by mouth daily. He is on Lovenox 30 mg subcu for DVT prophylaxis. He is on Levemir insulin 22 units at bedtime in addition to a size care coverage. The patient is also to be started enteral feeding for nutritional support. Objective - Vital Signs Vital signs: Vital Signs Temp 98.7 F 02/11/20 08:00 Pulse 72 02/11/20 09:00 Resp 24 02/11/20 09:00 BP 106/58 02/11/20 09:00 Pulse Ox 96 02/11/20 09:00 Intake & Output 02/10/20 02/11/20 02/11/20 18:59 06:59 18:59 Intake Total 750 813.739 225 Output Total 275 50 Balance 750 538.739 175 Intake: IV 150 775 225 Piperacillin-Tazobactam 3 100 100 .375 gm In Sodium Chloride 0.9% 100 ml @ 25 mls/hr IVPB Q12H [facility] Rx# :[id number] Sodium Chloride 0.9% 1, 675 225 000 ml @ 75 mls/hr IV . [id number] [facility] Rx#:[id number] Intake, IV Titration 600 38.739 Amount Sodium Chloride 0.9% 1, 600 000 ml @ 75 mls/hr IV . [id number] [facility] Rx#:[id number] propofoL 1,000 mg In 38.739 Empty Bag 1 bag @ Titrate IV .Q0M [facility] Rx#: [id number] Output: Urine 275 50 Hemodialysis 0 Other: Voiding Method Toilet Indwelling Catheter Indwelling Catheter Urinal ABP, PAP, CO, CI - Last Documented Arterial Blood Pressure 183/72 - Exam GENERAL EXAM: Alert, pleasant 59-year-old gentleman, the patient is calm and comfortable and the patient is intubated on mechanical ventilator. Orogastric and endotracheal tube are both in place. HEAD: Normocephalic. EYES: Normal reaction of pupils, equal size. NOSE: Clear with pink turbinates. THROAT: No erythema or exudates. NECK: No masses, no JVD. CHEST: No chest wall deformity. LUNGS: Equal air entry with basilar crackles left greater than right, diminished. CVS: S1 and S2 normal with no audible murmur, regular rhythm. ABDOMEN: No hepatosplenomegaly, normal bowel sounds, no guarding or rigidity. SPINE: No scoliosis or deformity SKIN: No rashes CENTRAL NERVOUS SYSTEM: No focal deficits, tone is normal in all 4 extremities. EXTREMITIES: There is no peripheral edema. No clubbing, no cyanosis. Peripheral pulses are intact. - Labs CBC & Chem 7: 02/11/20 04:12 02/11/20 04:12 Labs: Abnormal Lab Results - Last 24 Hours (Table) 02/10/20 02/10/20 02/10/20 Range/Units 04:42 11:58 17:35 RBC (4.30-5.90) m/uL Hgb (13.0-17.5) gm/dL Hct (39.0-53.0) % Plt Count (150-450) k/uL Lymphocytes # (1.0-4.8) k/uL Lymphocytes # (Manual) (1.0-4.8) k/uL Metamyelocytes # (Man) (0) k/uL Myelocytes # (Manual) (0) k/uL ABG pH (7.35-7.45) ABG pCO2 (35-45) mmHg ABG pO2 (83-108) mmHg ABG HCO3 (21-25) mmol/L ABG O2 Saturation (94-97) % Sodium 127 L (135-145) mmol/L Potassium 6.3 H* (3.5-5.5) mmol/L Chloride 92 L (96-109) mmol/L Carbon Dioxide 20.6 L (21.6-31.8) mmol/L Anion Gap 14.40 H (4.00-12.00) mmol/L BUN 123.0 H* (9.0-27.0) mg/dL Creatinine 5.4 H (0.6-1.5) mg/dL Est GFR (CKD-EPI)AfAm 12.2 L (60.0-200.0) Est GFR (CKD-EPI)NonAf 10.5 L (60.0-200.0) BUN/Creatinine Ratio 22.78 H (12.00-20.00) Ratio Glucose 334 H (70-110) mg/dL POC Glucose (mg/dL) 299 H 122 H (75-99) mg/dL Calcium 7.6 L (8.7-10.3) mg/dL Urine Protein (Negative) Urine Blood (Negative) Ur Leukocyte Esterase (Negative) Urine RBC (0-5) /hpf Urine Bacteria (None) /hpf Urine Mucus (None) /hpf Urine Yeast (Budding) (None) /hpf 02/10/20 02/10/20 02/10/20 Range/Units 19:04 19:25 20:17 RBC 3.49 L (4.30-5.90) m/uL Hgb 10.6 L (13.0-17.5) gm/dL Hct 33.3 L (39.0-53.0) % Plt Count 69 L (150-450) k/uL Lymphocytes # (1.0-4.8) k/uL Lymphocytes # (Manual) 0.31 L (1.0-4.8) k/uL Metamyelocytes # (Man) 0.04 H (0) k/uL Myelocytes # (Manual) 0.13 H (0) k/uL ABG pH <6.80 L* (7.35-7.45) ABG pCO2 >120 H* (35-45) mmHg ABG pO2 78 L (83-108) mmHg ABG HCO3 (21-25) mmol/L ABG O2 Saturation 84.1 L (94-97) % Sodium (135-145) mmol/L Potassium (3.5-5.5) mmol/L Chloride (96-109) mmol/L Carbon Dioxide (21.6-31.8) mmol/L Anion Gap (4.00-12.00) mmol/L BUN (9.0-27.0) mg/dL Creatinine (0.6-1.5) mg/dL Est GFR (CKD-EPI)AfAm (60.0-200.0) Est GFR (CKD-EPI)NonAf (60.0-200.0) BUN/Creatinine Ratio (12.00-20.00) Ratio Glucose (70-110) mg/dL POC Glucose (mg/dL) 177 H (75-99) mg/dL Calcium (8.7-10.3) mg/dL Urine Protein (Negative) Urine Blood (Negative) Ur Leukocyte Esterase (Negative) Urine RBC (0-5) /hpf Urine Bacteria (None) /hpf Urine Mucus (None) /hpf Urine Yeast (Budding) (None) /hpf 02/10/20 02/10/20 02/10/20 Range/Units 20:17 20:20 21:26 RBC (4.30-5.90) m/uL Hgb (13.0-17.5) gm/dL Hct (39.0-53.0) % Plt Count (150-450) k/uL Lymphocytes # (1.0-4.8) k/uL Lymphocytes # (Manual) (1.0-4.8) k/uL Metamyelocytes # (Man) (0) k/uL Myelocytes # (Manual) (0) k/uL ABG pH 7.17 L* (7.35-7.45) ABG pCO2 50 H (35-45) mmHg ABG pO2 121 H (83-108) mmHg ABG HCO3 18 L (21-25) mmol/L ABG O2 Saturation 99.1 H (94-97) % Sodium 127 L (135-145) mmol/L Potassium 6.8 H* (3.5-5.5) mmol/L Chloride 92 L (96-109) mmol/L Carbon Dioxide 21 L (21.6-31.8) mmol/L Anion Gap (4.00-12.00) mmol/L BUN 123 H* (9.0-27.0) mg/dL Creatinine 5.83 H (0.6-1.5) mg/dL Est GFR (CKD-EPI)AfAm (60.0-200.0) Est GFR (CKD-EPI)NonAf (60.0-200.0) BUN/Creatinine Ratio (12.00-20.00) Ratio Glucose 180 H (70-110) mg/dL POC Glucose (mg/dL) 182 H (75-99) mg/dL Calcium 7.3 L (8.7-10.3) mg/dL Urine Protein (Negative) Urine Blood (Negative) Ur Leukocyte Esterase (Negative) Urine RBC (0-5) /hpf Urine Bacteria (None) /hpf Urine Mucus (None) /hpf Urine Yeast (Budding) (None) /hpf 02/11/20 02/11/20 02/11/20 Range/Units 00:34 04:12 04:12 RBC 2.93 L (4.30-5.90) m/uL Hgb 8.6 L D (13.0-17.5) gm/dL Hct 26.7 L (39.0-53.0) % Plt Count 55 L (150-450) k/uL Lymphocytes # 0.4 L (1.0-4.8) k/uL Lymphocytes # (Manual) (1.0-4.8) k/uL Metamyelocytes # (Man) (0) k/uL Myelocytes # (Manual) (0) k/uL ABG pH (7.35-7.45) ABG pCO2 (35-45) mmHg ABG pO2 (83-108) mmHg ABG HCO3 (21-25) mmol/L ABG O2 Saturation (94-97) % Sodium 129 L (135-145) mmol/L Potassium (3.5-5.5) mmol/L Chloride (96-109) mmol/L Carbon Dioxide 20 L (21.6-31.8) mmol/L Anion Gap (4.00-12.00) mmol/L BUN 87 H (9.0-27.0) mg/dL Creatinine 3.98 H (0.6-1.5) mg/dL Est GFR (CKD-EPI)AfAm (60.0-200.0) Est GFR (CKD-EPI)NonAf (60.0-200.0) BUN/Creatinine Ratio (12.00-20.00) Ratio Glucose (70-110) mg/dL POC Glucose (mg/dL) 158 H (75-99) mg/dL Calcium 7.0 L (8.7-10.3) mg/dL Urine Protein (Negative) Urine Blood (Negative) Ur Leukocyte Esterase (Negative) Urine RBC (0-5) /hpf Urine Bacteria (None) /hpf Urine Mucus (None) /hpf Urine Yeast (Budding) (None) /hpf 02/11/20 02/11/20 Range/Units 06:03 07:10 RBC (4.30-5.90) m/uL Hgb (13.0-17.5) gm/dL Hct (39.0-53.0) % Plt Count (150-450) k/uL Lymphocytes # (1.0-4.8) k/uL Lymphocytes # (Manual) (1.0-4.8) k/uL Metamyelocytes # (Man) (0) k/uL Myelocytes # (Manual) (0) k/uL ABG pH (7.35-7.45) ABG pCO2 (35-45) mmHg ABG pO2 (83-108) mmHg ABG HCO3 (21-25) mmol/L ABG O2 Saturation 97.2 H (94-97) % Sodium (135-145) mmol/L Potassium (3.5-5.5) mmol/L Chloride (96-109) mmol/L Carbon Dioxide (21.6-31.8) mmol/L Anion Gap (4.00-12.00) mmol/L BUN (9.0-27.0) mg/dL Creatinine (0.6-1.5) mg/dL Est GFR (CKD-EPI)AfAm (60.0-200.0) Est GFR (CKD-EPI)NonAf (60.0-200.0) BUN/Creatinine Ratio (12.00-20.00) Ratio Glucose (70-110) mg/dL POC Glucose (mg/dL) (75-99) mg/dL Calcium (8.7-10.3) mg/dL Urine Protein 1+ H (Negative) Urine Blood Large H (Negative) Ur Leukocyte Esterase Large H (Negative) Urine RBC >182 H (0-5) /hpf Urine Bacteria Rare H (None) /hpf Urine Mucus Rare H (None) /hpf Urine Yeast (Budding) Many H (None) /hpf Microbiology - Last 24 Hours (Table) 02/10/20 20:05 Sputum Culture - Preliminary Sputum Assessment and Plan Plan: 1 Acute hypoxemic/hypercapnic respiratory failure requiring intubation mechanical ventilator toward support from February 02 through 02/04/2020. The patient was extubated on 02/04/2020 with subsequent reintubation overnight and the patient is currently back intubated on a mechanical ventilator with extensive consolidation of the left lung secondary to gram-negative pneumonia. The cultures have indicated infection with Enterobacter. A repeat CAT scan of the chest will be needed to reevaluate the extent of consolidation and volume loss in addition to extent of pleural effusion. Previous bronchoscopies shown no evidence of an endobronchial lesions obstructing the airway. The patient is currently intubated on a mechanical ventilator. 2 Recurrent left lung pleural effusion with previous thoracentesis with animal fluid returned on 02/03/2020. Fluid positive for Enterobacter gergoviae and Streptococcus. A follow-up CAT scan is to be ordered today. 3 gram-negative pneumonia with Enterobacter and the patient has dense consolidation left lung infiltrate status post bronchoscopy with BAL on 02/03/2020 and again on 02/06/2020. Cultures positive for Enterobacter gergoviae and the patient is currently on IV Zosyn. 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 8 Acute kidney injury, currently on hemodialysis 9 Hypertension 10 Hyperlipidemia 11 Diabetes mellitus with diabetic neuropathy, currently on Lantus insulin for blood sugar control 12 Gastric esophageal reflux disease 13 Nonischemic cardiomyopathy status post AICD placement 14 Chronic pancreatitis with pancreatic exocrine insufficiency 15 History of pancreatic pseudocyst 16 Poor overall functional performance based on the above mentioned multiple comorbidities Plan Continue ventilator support and no need for any vent changes for today Proceed with a CAT scan of the chest without contrast to reevaluate the left lung opacity/consolidation Continue IV Zosyn which is an appropriate antibiotic coverage for him at this point in time IV fluids to KVO Proceed with hemodialysis today with ultrafiltration Keep the patient sedated for now We'll continue to follow make further recommendations based on his progress. We'll start the patient on feeding for nutritional support. I'm going to review the CAT scan and decided if further intervention is needed regarding the left lung findings. Is a critically care evaluation was done in more than 30 minutes. Outcomes is critical and poor based on the above-mentioned comorbidities. Time with Patient: Greater than 30
[2020-02-11 16:32] LABS: Glucose,Whole Blood 90 mg/dL (75-99)
--- NOTE | 2020-02-11 17:50 | CT ---
EXAMINATION TYPE: CT chest wo con DATE OF EXAM: 02/11/2020 COMPARISON: 02/03/2020. HISTORY: Shortness of breath, follow-up. CT DLP: 379.1 mGycm. Automated Exposure Control for Dose Reduction was Utilized. TECHNIQUE: CT scan of the thorax is performed without IV contrast. FINDINGS: LUNGS: There is interval occlusive mucous plug in the left mainstem bronchus with resultant collapse of the previously partially aerated left lung. There is persistent moderate left greater than right b ibasilar consolidations with accompanying pleural effusions. Additional scattered small to moderate p atchy ground glass opacities in the right lung are again seen. No pneumothorax. The endotracheal and nasogastric tubes remain in place. MEDIASTINUM: Lack of IV contrast is noted to limit evaluation for mediastinal and especially hilar ad enopathy. Stable borderline to mildly enlarged mediastinal lymph nodes, probably reactive. Stable car diomegaly. No pericardial effusion is seen. OTHER: No additional significant abnormality is seen. IMPRESSION: Interval left mainstem bronchus mucous plug with resultant collapse of the left left lung. Persistent bibasilar consolidations with additional right lung groundglass opacities and accompanying bilateral pleural effusions.
[2020-02-11 18:28] LABS: Glucose,Whole Blood 73 mg/dL (75-99)
[2020-02-11 20:42] LABS: Glucose,Whole Blood 82 mg/dL (75-99)
[2020-02-11] MEDS: INSULIN DETEMIR (LEVEMIR) 100 UNIT/ML SYR SQ SCH (21:10)
[2020-02-11] MEDS: ATORVASTATIN 10 MG TAB PO SCH (21:14)
[2020-02-11] MEDS ORDERED: INSULIN DETEMIR (LEVEMIR) 100 UNIT/ML SYR SQ ONE (21:23)
[2020-02-11 21:45] LABS: Glucose,Whole Blood 81 mg/dL (75-99)
--- NOTE | 2020-02-11 22:39 | P.PN ---
Subjective Principal diagnosis: CHF with COPD element The patient is a 59-year-old white male with known history of chronic back otitis diabetes CHF and COPD. The patient feels fine even though he has had multiple bronchoscopy. Chest x-ra y is poorly aerated. The patient was found unresponsive is in and is now reintubated.. Objective - Vital Signs Vital signs: Vital Signs Temp 97.8 F 02/11/20 20:00 Pulse 70 02/11/20 21:50 Resp 24 02/11/20 21:00 BP 92/72 02/11/20 21:00 Pulse Ox 100 02/11/20 21:00 Intake & Output 02/11/20 02/11/20 02/12/20 06:59 18:59 06:59 Intake Total 813.739 855.085 336 Output Total 275 180 102 Balance 538.739 675.085 234 Weight 69.8 kg Intake: IV 775 795 225 Dextrose 5% in Water 1, 450 225 000 ml @ 75 mls/hr IV . [id number] [facility] Rx#:[id number] Piperacillin-Tazobactam 3 100 100 .375 gm In Sodium Chloride 0.9% 100 ml @ 25 mls/hr IVPB Q12H [facility] Rx# :[id number] Sodium Chloride 0.9% 1, 675 245 000 ml @ 10 mls/hr IV . Q24H [facility] Rx#:[id number] Intake, IV Titration 38.739 33.085 Amount propofoL 1,000 mg In 38.739 33.085 Empty Bag 1 bag @ Titrate IV .Q0M [facility] Rx#: [id number] Tube Feeding 27 81 Other 30 Output: Urine 275 180 102 Hemodialysis 0 0 Other: Voiding Method Indwelling Catheter Indwelling Catheter Indwelling Catheter ABP, PAP, CO, CI - Last Documented Arterial Blood Pressure 183/72 - Constitutional General appearance: Present: thin - EENT Eyes: Absent: abnormal pupil - Neck Neck: Absent: lymphadenopathy - Respiratory Respiratory: bilateral: rhonchi - Cardiovascular Rhythm: regular Heart sounds: normal: S1, S2 Abnormal Heart Sounds: Absent: S3 Gallop - Gastrointestinal General gastrointestinal: Present: soft. Absent: tenderness - Integumentary Integumentary: Absent: cellulitis - Labs CBC & Chem 7: 02/11/20 04:12 02/11/20 04:12 Labs: Abnormal Lab Results - Last 24 Hours (Table) 02/10/20 02/11/20 02/11/20 Range/Units 04:42 00:34 04:12 RBC (4.30-5.90) m/uL Hgb (13.0-17.5) gm/dL Hct (39.0-53.0) % Plt Count (150-450) k/uL Lymphocytes # (1.0-4.8) k/uL ABG O2 Saturation (94-97) % Sodium 129 L (137-145) mmol/L Potassium 6.3 H* (3.5-5.5) mmol/L Carbon Dioxide 20 L (22-30) mmol/L BUN 123.0 H* 87 H (9.0-27.0) mg/dL Creatinine 3.98 H (0.66-1.25) mg/dL POC Glucose (mg/dL) 158 H (75-99) mg/dL Calcium 7.0 L (8.4-10.2) mg/dL Urine Protein (Negative) Urine Blood (Negative) Ur Leukocyte Esterase (Negative) Urine RBC (0-5) /hpf Urine Bacteria (None) /hpf Urine Mucus (None) /hpf Urine Yeast (Budding) (None) /hpf 02/11/20 02/11/20 02/11/20 Range/Units 04:12 06:03 07:10 RBC 2.93 L (4.30-5.90) m/uL Hgb 8.6 L D (13.0-17.5) gm/dL Hct 26.7 L (39.0-53.0) % Plt Count 55 L (150-450) k/uL Lymphocytes # 0.4 L (1.0-4.8) k/uL ABG O2 Saturation 97.2 H (94-97) % Sodium (137-145) mmol/L Potassium (3.5-5.5) mmol/L Carbon Dioxide (22-30) mmol/L BUN (9.0-27.0) mg/dL Creatinine (0.66-1.25) mg/dL POC Glucose (mg/dL) (75-99) mg/dL Calcium (8.4-10.2) mg/dL Urine Protein 1+ H (Negative) Urine Blood Large H (Negative) Ur Leukocyte Esterase Large H (Negative) Urine RBC >182 H (0-5) /hpf Urine Bacteria Rare H (None) /hpf Urine Mucus Rare H (None) /hpf Urine Yeast (Budding) Many H (None) /hpf 02/11/20 02/11/20 02/11/20 Range/Units 10:19 10:34 12:58 RBC (4.30-5.90) m/uL Hgb (13.0-17.5) gm/dL Hct (39.0-53.0) % Plt Count (150-450) k/uL Lymphocytes # (1.0-4.8) k/uL ABG O2 Saturation (94-97) % Sodium (137-145) mmol/L Potassium (3.5-5.5) mmol/L Carbon Dioxide (22-30) mmol/L BUN (9.0-27.0) mg/dL Creatinine (0.66-1.25) mg/dL POC Glucose (mg/dL) 46 L 137 H 32 L (75-99) mg/dL Calcium (8.4-10.2) mg/dL Urine Protein (Negative) Urine Blood (Negative) Ur Leukocyte Esterase (Negative) Urine RBC (0-5) /hpf Urine Bacteria (None) /hpf Urine Mucus (None) /hpf Urine Yeast (Budding) (None) /hpf 02/11/20 02/11/20 02/11/20 Range/Units 13:18 15:11 15:30 RBC (4.30-5.90) m/uL Hgb (13.0-17.5) gm/dL Hct (39.0-53.0) % Plt Count (150-450) k/uL Lymphocytes # (1.0-4.8) k/uL ABG O2 Saturation (94-97) % Sodium (137-145) mmol/L Potassium (3.5-5.5) mmol/L Carbon Dioxide (22-30) mmol/L BUN (9.0-27.0) mg/dL Creatinine (0.66-1.25) mg/dL POC Glucose (mg/dL) 121 H 53 L 155 H (75-99) mg/dL Calcium (8.4-10.2) mg/dL Urine Protein (Negative) Urine Blood (Negative) Ur Leukocyte Esterase (Negative) Urine RBC (0-5) /hpf Urine Bacteria (None) /hpf Urine Mucus (None) /hpf Urine Yeast (Budding) (None) /hpf 02/11/20 Range/Units 18:26 RBC (4.30-5.90) m/uL Hgb (13.0-17.5) gm/dL Hct (39.0-53.0) % Plt Count (150-450) k/uL Lymphocytes # (1.0-4.8) k/uL ABG O2 Saturation (94-97) % Sodium (137-145) mmol/L Potassium (3.5-5.5) mmol/L Carbon Dioxide (22-30) mmol/L BUN (9.0-27.0) mg/dL Creatinine (0.66-1.25) mg/dL POC Glucose (mg/dL) 73 L (75-99) mg/dL Calcium (8.4-10.2) mg/dL Urine Protein (Negative) Urine Blood (Negative) Ur Leukocyte Esterase (Negative) Urine RBC (0-5) /hpf Urine Bacteria (None) /hpf Urine Mucus (None) /hpf Urine Yeast (Budding) (None) /hpf Microbiology - Last 24 Hours (Table) 02/10/20 20:05 Gram Stain - Preliminary Sputum Sputum Culture - Preliminary Assessment and Plan (1) Congestive heart failure Current Visit: Yes Status: Acute Code(s): I50.9 - HEART FAILURE, UNSPECIFIED SNOMED Code(s): 30015271 (2) Hyperglycemia Current Visit: Yes Status: Acute Code(s): R73.9 - HYPERGLYCEMIA, UNSPECIFIED SNOMED Code(s): 39674194 (3) Hyponatremia Current Visit: Yes Status: Acute Code(s): E87.1 - HYPO-OSMOLALITY AND HYPONATREMIA SNOMED Code(s): 11430726 (4) Respiratory failure Current Visit: No Status: Acute Code(s): J96.90 - RESPIRATORY FAILURE, UNSP, UNSP W HYPOXIA OR HYPERCAPNIA SNOMED Code(s): 699903087 Plan: Continue supportive care Check CBC and CMP in the a.m. Prognosis is guarded secondary to his multiple comorbidities. Continue respiratory support. Watch diabetes closely. Time with Patient: Greater than 30
[2020-02-12] MEDS: PIPERACILLIN-TAZOBACTAM 3.375 GM in SODIUM CHLORIDE 0.9% 100 ML IVPB SCH ×3 (00:42→23:53)
[2020-02-12 00:46] LABS: Glucose,Whole Blood 89 mg/dL (75-99)
[2020-02-12] MEDS: INSULIN ASPART (NovoLOG) 100 UNIT/ML VIAL SQ SCH ×5 (03:13→20:53)
[2020-02-12] MEDS: DEXTROSE 5% IN WATER 1,000 ML IV SCH (03:15)
[2020-02-12 05:14] LABS: Calcium 7.1 mg/dL (8.4-10.2); Potassium 4.1 mmol/L (3.5-5.1)
[2020-02-12 05:21] LABS: Basophils # (A) 0.1 k/uL (0-0.2); Basophils % (A) 1 %; Eosinophils % (A) 1 %; HCT 28.3 % (39.0-53.0); HGB 9.5 gm/dL (13.0-17.5); Lymphocytes # (A) 0.9 k/uL (1.0-4.8); Lymphocytes % (A) 19 %; MCH 30.1 pg (25.0-35.0); MCHC 33.6 g/dL (31.0-37.0); MCV 89.4 fL (80.0-100.0); Mean Platelet Volume 10.9; Monocytes # (A) 0.5 k/uL (0-1.0); Monocytes % (A) 10 %; Neutrophils # (A) 3.3 k/uL (1.3-7.7); Neutrophils % (A) 68 %; RBC 3.16 m/uL (4.30-5.90); RDW 14.3 % (11.5-15.5); WBC 4.9 k/uL (3.8-10.6)
[2020-02-12 05:23] LABS: Platelet Count 53 k/uL (150-450)
[2020-02-12 06:03] LABS: ABG Base Excess -5.5 mmol/L; ABG HCO3 22 mmol/L (21-25); ABG Oxygen Saturation 97.6 % (94-97); ABG PCO2 50 mmHg (35-45); ABG PH 7.25 (7.35-7.45); ABG PO2 126 mmHg (83-108); ABG TCO2 23 mmol/L (19-24); Allen Test Performed? Yes
[2020-02-12] MEDS ORDERED: HEPARIN SODIUM,PORCINE 5,000 UNIT/ML 1 ML VIAL ONE (07:49)
[2020-02-12] MEDS: SYMBICORT 160-4.5 MCG INHALER INHALATION SCH ×2 (08:51→21:06)
[2020-02-12] MEDS: IPRATROPIUM-ALBUTEROL 3 ML NEB INHALATION SCH ×4 (08:51→21:05)
[2020-02-12] MEDS: ENOXAPARIN 30 MG/0.3 ML SYRINGE SQ SCH (10:00)
--- NOTE | 2020-02-12 10:27 | XR ---
EXAMINATION TYPE: XR chest 1V portable DATE OF EXAM: 02/12/2020 COMPARISON: 02/11/2020 INDICATION: Tube placement TECHNIQUE: Single frontal view of the chest is obtained. FINDINGS: The heart size is mildly prominent. The pulmonary vasculature is normal. There is opacification of the left mid and lower lung smith. Mild infiltrate is at the right base. Endotracheal tube tip is above the soto. Nasogastric tube is curled within the stomach with the tip in the midabdomen. IMPRESSION: 1. Slight improving opacification of the upper outer left lung. The left lung field is largely remain opacified. On 2. Mild right lower lobe infiltrate, similar to comparison. 3. Lines and catheters discussed above.
[2020-02-12] MEDS: LIPASE 5,000/PROTEASE 17,000/AMYLASE 24,000 PO SCH (10:41)
[2020-02-12] MEDS ORDERED: DEXTROSE 50% SYRINGE 50 ML IVP STA (10:41)
[2020-02-12 10:49] LABS: Glucose,Whole Blood 44 mg/dL (75-99)
[2020-02-12 11:07] LABS: Glucose,Whole Blood 93 mg/dL (75-99)
--- NOTE | 2020-02-12 11:36 | US ---
EXAMINATION TYPE: US chest DATE OF EXAM: 02/12/2020 COMPARISON: NONE CLINICAL HISTORY: left Pleural Effusion. Pleural effusion TECHNIQUE: Targeted ultrasound of the posterior lower left hemithorax EXAM MEASUREMENTS: Left Pleural Effusion pocket size: 7.4 cm Left skin surface to fluid distance: 1.9 cm 2.9cm to lung tissue. Left side marked for possible thoracentesis outside the dept. Pulmonologists are able to review the images in the patient?s EMR. IMPRESSIONS: 1. Left pleural effusion
[2020-02-12] MEDS: ISOSORBIDE MONONITRATE ER 30 MG TAB.ER.24H PO SCH (12:09)
[2020-02-12] MEDS: predniSONE 10 MG TAB PO SCH (12:09)
[2020-02-12] MEDS: METOPROLOL SUCCINATE (ER) 25 MG TAB.ER.24H PO SCH (12:09)
[2020-02-12] MEDS: PREGABALIN 100 MG CAP PO SCH ×2 (12:09→20:52)
[2020-02-12 12:59] LABS: Glucose,Whole Blood 74 mg/dL (75-99)
[2020-02-12 13:25] LABS: INR 1.2 (<1.2); Prothrombin Time 12.1 sec (9.0-12.0)
--- NOTE | 2020-02-12 14:26 | P.PN ---
Subjective Patient is seen in follow-up for acute kidney injury. Patient self extubated himself this morning. He is now on 8 L high flow oxygen. Tolerated dialysis this morning with 1.5 L ultrafiltration. Tolerating small amounts of oral intake. Blood sugars still staying low and is maintained on D5 W. Remains off vasopressors. Vital signs are stable. General: The patient appeared well nourished and normally developed. HEENT: Head exam is unremarkable. Lungs: Breath sounds decreased. HEART: Rate and Rhythm are regular. ABDOMEN: Soft, no distention noted. EXTREMITITES: 1+ edema. Objective - Vital Signs Vital signs: Vital Signs Temp 98.2 F 02/12/20 12:00 Pulse 98 02/12/20 13:00 Resp 15 02/12/20 13:00 BP 123/77 02/12/20 13:00 Pulse Ox 98 02/12/20 13:00 Intake & Output 02/11/20 02/12/20 02/12/20 18:59 06:59 18:59 Intake Total 698.552 2067.743 675 Output Total 035 450 9264 Balance 564.536 2241.743 -930 Weight 69.8 kg 77.3 kg Intake: IV 795 900 525 Dextrose 5% in Water 1, 450 900 525 000 ml @ 75 mls/hr IV . [id number] [facility] Rx#:[id number] Piperacillin-Tazobactam 3 100 .375 gm In Sodium Chloride 0.9% 100 ml @ 25 mls/hr IVPB Q12H [facility] Rx# :[id number] Sodium Chloride 0.9% 1, 245 000 ml @ 10 mls/hr IV . Q24H [facility] Rx#:[id number] Intake, IV Titration 33.085 147.743 Amount propofoL 1,000 mg In 33.085 147.743 Empty Bag 1 bag @ Titrate IV .Q0M [facility] Rx#: [id number] Oral 150 Tube Feeding 27 397 Other 60 Output: Urine 180 490 105 Hemodialysis 0 1500 Other: Voiding Method Indwelling Catheter Indwelling Catheter Indwelling Catheter # Bowel Movements 1 ABP, PAP, CO, CI - Last Documented Arterial Blood Pressure 183/72 - Labs CBC & Chem 7: 02/12/20 03:46 02/12/20 03:46 Labs: Abnormal Lab Results - Last 24 Hours (Table) 02/11/20 02/11/20 02/11/20 Range/Units 15:11 15:30 18:26 RBC (4.30-5.90) m/uL Hgb (13.0-17.5) gm/dL Hct (39.0-53.0) % Plt Count (150-450) k/uL Lymphocytes # (1.0-4.8) k/uL PT (9.0-12.0) sec INR (<1.2) ABG pH (7.35-7.45) ABG pCO2 (35-45) mmHg ABG pO2 (83-108) mmHg ABG O2 Saturation (94-97) % Sodium (137-145) mmol/L Carbon Dioxide (22-30) mmol/L BUN (9-20) mg/dL Creatinine (0.66-1.25) mg/dL POC Glucose (mg/dL) 53 L 155 H 73 L (75-99) mg/dL Calcium (8.4-10.2) mg/dL 02/12/20 02/12/20 02/12/20 Range/Units 03:46 03:46 06:01 RBC 3.16 L (4.30-5.90) m/uL Hgb 9.5 L (13.0-17.5) gm/dL Hct 28.3 L (39.0-53.0) % Plt Count 53 L (150-450) k/uL Lymphocytes # 0.9 L (1.0-4.8) k/uL PT (9.0-12.0) sec INR (<1.2) ABG pH 7.25 L (7.35-7.45) ABG pCO2 50 H (35-45) mmHg ABG pO2 126 H (83-108) mmHg ABG O2 Saturation 97.6 H (94-97) % Sodium 131 L (137-145) mmol/L Carbon Dioxide 21 L (22-30) mmol/L BUN 62 H (9-20) mg/dL Creatinine 3.05 H (0.66-1.25) mg/dL POC Glucose (mg/dL) (75-99) mg/dL Calcium 7.1 L (8.4-10.2) mg/dL 02/12/20 02/12/20 02/12/20 Range/Units 10:39 12:58 12:59 RBC (4.30-5.90) m/uL Hgb (13.0-17.5) gm/dL Hct (39.0-53.0) % Plt Count (150-450) k/uL Lymphocytes # (1.0-4.8) k/uL PT 12.1 H (9.0-12.0) sec INR 1.2 H (<1.2) ABG pH (7.35-7.45) ABG pCO2 (35-45) mmHg ABG pO2 (83-108) mmHg ABG O2 Saturation (94-97) % Sodium (137-145) mmol/L Carbon Dioxide (22-30) mmol/L BUN (9-20) mg/dL Creatinine (0.66-1.25) mg/dL POC Glucose (mg/dL) 44 L 74 L (75-99) mg/dL Calcium (8.4-10.2) mg/dL Microbiology - Last 24 Hours (Table) 02/10/20 20:05 Gram Stain - Preliminary Sputum Sputum Culture - Preliminary Gram Neg Bacilli Assessment and Plan Plan: Assessment: 1. Acute kidney injury secondary to ATN secondary to sepsis and cardiorenal syndrome. He is status post diuresis. Started on hemodialysis February 09. No hydronephrosis noted on kidney ultrasound. Urine output 10-25 mL an hour. 2. Whiteout of the right lung. Possibly pneumonia. No fluid obtained with thoracentesis. Status post bronchoscopy with removal of mucous plugs. 3. Acute on chronic systolic CHF with ejection fraction of 25% with moderate mi tral regurgitation. 4. Acute hypoxic and hypercapnic respiratory failure. 5. Hyperkalemia secondary to acute kidney injury and metabolic acidosis. Resolved. 6. Hyponatremia secondary to acute kidney injury. Hypervolemic. Also on hypotonic fluids. Improving. 7. Pleural space infection maintained on antibiotics; sputum culture positive for gram-negative bacilli. Left sided pleural effusion - may need left-sided thoracentesis. 8. Chronic kidney disease stage III with baseline creatinine in the range of 1.1-1.5. Etiology is most likely diabetic kidney disease. 9. Hypoglycemia maintained on D5W. Plan: Continue to assess daily for need for renal replacement therapy. Continue to monitor renal function and urine output. He was given high-dose Lasix November 15 with no significant improvement in urine output. Check phosphorus level.
[2020-02-12 16:05] LABS: Glucose,Whole Blood 89 mg/dL (75-99)
--- NOTE | 2020-02-12 16:10 | XR ---
EXAMINATION TYPE: XR chest 1V portable DATE OF EXAM: 02/12/2020 COMPARISON: 02/12/2020 HISTORY: Post left thoracentesis TECHNIQUE: Single frontal view of the chest is obtained. FINDINGS: There is improved aeration of left lung with persistent consolidation and tiny bilateral e ffusions. Interstitial pattern suggest CHF and the heart is enlarged. Cardiac device noted. No sizabl e pneumothorax. IMPRESSION: 1. No pneumothorax postthoracentesis. Improved aeration noted involving the left hemithorax. 2. Correlate for CHF with bilateral infiltrate and tiny effusion.
--- NOTE | 2020-02-12 16:25 | P.PN ---
Subjective Progress Note Date: 02/12/20 59-year-old male patient is well-known to me and the patient is currently in the intensive care unit after being reintubated yesterday for respiratory support for an extensive left lung pneumonia. Note that the patient required intubation mechanical ventilation earlier and the patient was successfully extubated on 02/04/2020. His pulmonary workup that included a bronchoscopy and the lavage that showed Enterobacter and the same micrograms and was also cultured from the pleural fluid that was aspirated on 02/03/2020. The patient currently remains on IV antibiotics and the patient is receiving IV Zosyn. Noted the chest exit shown significant consolidation and atelectasis of the left lung in addition to a small left-sided pleural effusion. Overnight, the patient became more hypoxic and less responsive. He had to be reintubated and he was brought into the intensive care unit for further care. This morning, the patient is on propofol running at 10 mg per KG per minute. He is easily arousable while being on sedation. He is also receiving normal sed rate of 75 mL an hour. He remains on assist control mode of ventilation at the rate of 24 the tidal volume of 450 and FiO2 of 40% with a PEEP of 5. The blood gas showed pH of 7.36 with a pCO2 of 37 and pO2 95. The patient is currently on no pressors. He is maintaining his own blood pressure. No fever. No chills. No leukocytosis with a white cell count 3.9. He has developed an acute kidney injury. As mentioned earlier creatinine came up to 5.8 and currently is down to 3.98 and the patient is going to require another session of hemodialysis today. The patient will be kept in ICU for now. I'm suggesting a repeat CAT scan of the chest to reevaluate the left lung. Based on my earlier review of the CAT scan that was done earlier, the patient has volume loss and extensive consolidation with a component of pleural fluid. I think this is essentially small at this point in time. He is on a prednisone burst taper currently on 30 mg by mouth daily. He is on Lovenox 30 mg subcu for DVT prophylaxis. He is on Levemir insulin 22 units at bedtime in addition to a size care coverage. The patient is also to be started enteral feeding for nutritional support. 02/12/2020, the patient is being seen for a follow-up. The patient is currently extubated. In the [employer] hours, the patient self extubated and the patient was not reintubated. He was kept on BiPAP at a pressure of 14/7 cm of water and FiO2 of 50%. He is much more comfortable at this point in time is breathing adequately. He is communicating and is awake and alert. Chest x-ray shows significant volume loss on the left with significant opacification of the left lung, however there is some slight improvement in the upper outer left lung with some improved aeration the left upper lobe area. The patient also has a mild right lower lobe pulmonary infiltration. Based on this, I contacted interventional radiology. I requested an ultrasound-guided thoracentesis and another 500 mL of pleural fluid was aspirated from the patient's lung successfu lly. Postprocedure chest x-ray shows significant improvement in aeration of the left lung. Nevertheless distal constellation of the left lower lobe along with some volume loss. The patient will be kept on the BiPAP overnight. I contacted the sister and I also updated her on the condition. Meanwhile, the patient will be kept on DuoNeb nebulized treatments on the clock and the patient is also on IV Zosyn regarding the gram-negative pneumonia with a parapneumonic effusion that was attributed to be related to Enterobacter. Repeat sputum sample was also sent and it's still growing gram-negative bacillus and would awaiting final cultures and sensitivities. In addition, the patient is going to undergo hemodialysis today. IV fluids at [facility] Objective - Vital Signs Vital signs: Vital Signs Temp 98.2 F 02/12/20 08:00 Pulse 75 02/12/20 09:13 Resp 19 02/12/20 08:00 BP 105/95 02/12/20 08:00 Pulse Ox 98 02/12/20 08:00 Intake & Output 02/11/20 02/12/20 02/12/20 18:59 06:59 18:59 Intake Total 947.959 7263.743 75 Output Total 180 490 10 Balance 651.222 8851.743 65 Weight 69.8 kg 77.3 kg Intake: IV 795 900 75 Dextrose 5% in Water 1, 450 900 75 000 ml @ 75 mls/hr IV . [id number] [facility] Rx#:[id number] Piperacillin-Tazobactam 3 100 .375 gm In Sodium Chloride 0.9% 100 ml @ 25 mls/hr IVPB Q12H [facility] Rx# :[id number] Sodium Chloride 0.9% 1, 245 000 ml @ 10 mls/hr IV . Q24H [facility] Rx#:[id number] Intake, IV Titration 33.085 147.743 Amount propofoL 1,000 mg In 33.085 147.743 Empty Bag 1 bag @ Titrate IV .Q0M [facility] Rx#: [id number] Tube Feeding 27 397 Other 60 Output: Urine 180 490 10 Hemodialysis 0 Other: Voiding Method Indwelling Catheter Indwelling Catheter Indwelling Catheter # Bowel Movements 1 ABP, PAP, CO, CI - Last Documented Arterial Blood Pressure 183/72 - Exam GENERAL EXAM: Alert, pleasant 59-year-old gentleman, the patient is extubated and the patient is currently on BiPAP HEAD: Normocephalic. EYES: Normal reaction of pupils, equal size. NOSE: Clear with pink turbinates. THROAT: No erythema or exudates. NECK: No masses, no JVD. CHEST: No chest wall deformity. LUNGS: Equal air entry with basilar crackles left greater than right, diminished. CVS: S1 and S2 normal with no audible murmur, regular rhythm. ABDOMEN: No hepatosplenomegaly, normal bowel sounds, no guarding or rigidity. SPINE: No scoliosis or deformity SKIN: No rashes CENTRAL NERVOUS SYSTEM: No focal deficits, tone is normal in all 4 extremities. The patient is alert and awake and following commands and answering questions appropriately. EXTREMITIES: There is no peripheral edema. No clubbing, no cyanosis. Peripheral pulses are intact. - Labs CBC & Chem 7: 02/12/20 03:46 02/12/20 03:46 Labs: Abnormal Lab Results - Last 24 Hours (Table) 02/10/20 02/11/20 02/11/20 Range/Units 04:42 10:19 10:34 RBC (4.30-5.90) m/uL Hgb (13.0-17.5) gm/dL Hct (39.0-53.0) % Plt Count (150-450) k/uL Lymphocytes # (1.0-4.8) k/uL ABG pH (7.35-7.45) ABG pCO2 (35-45) mmHg ABG pO2 (83-108) mmHg ABG O2 Saturation (94-97) % Sodium (137-145) mmol/L Potassium 6.3 H* (3.5-5.5) mmol/L Carbon Dioxide (22-30) mmol/L BUN 123.0 H* (9.0-27.0) mg/dL Creatinine (0.66-1.25) mg/dL POC Glucose (mg/dL) 46 L 137 H (75-99) mg/dL Calcium (8.4-10.2) mg/dL 02/11/20 02/11/20 02/11/20 Range/Units 12:58 13:18 15:11 RBC (4.30-5.90) m/uL Hgb (13.0-17.5) gm/dL Hct (39.0-53.0) % Plt Count (150-450) k/uL Lymphocytes # (1.0-4.8) k/uL ABG pH (7.35-7.45) ABG pCO2 (35-45) mmHg ABG pO2 (83-108) mmHg ABG O2 Saturation (94-97) % Sodium (137-145) mmol/L Potassium (3.5-5.5) mmol/L Carbon Dioxide (22-30) mmol/L BUN (9.0-27.0) mg/dL Creatinine (0.66-1.25) mg/dL POC Glucose (mg/dL) 32 L 121 H 53 L (75-99) mg/dL Calcium (8.4-10.2) mg/dL 02/11/20 02/11/20 02/12/20 Range/Units 15:30 18:26 03:46 RBC 3.16 L (4.30-5.90) m/uL Hgb 9.5 L (13.0-17.5) gm/dL Hct 28.3 L (39.0-53.0) % Plt Count 53 L (150-450) k/uL Lymphocytes # 0.9 L (1.0-4.8) k/uL ABG pH (7.35-7.45) ABG pCO2 (35-45) mmHg ABG pO2 (83-108) mmHg ABG O2 Saturation (94-97) % Sodium (137-145) mmol/L Potassium (3.5-5.5) mmol/L Carbon Dioxide (22-30) mmol/L BUN (9.0-27.0) mg/dL Creatinine (0.66-1.25) mg/dL POC Glucose (mg/dL) 155 H 73 L (75-99) mg/dL Calcium (8.4-10.2) mg/dL 02/12/20 02/12/20 Range/Units 03:46 06:01 RBC (4.30-5.90) m/uL Hgb (13.0-17.5) gm/dL Hct (39.0-53.0) % Plt Count (150-450) k/uL Lymphocytes # (1.0-4.8) k/uL ABG pH 7.25 L (7.35-7.45) ABG pCO2 50 H (35-45) mmHg ABG pO2 126 H (83-108) mmHg ABG O2 Saturation 97.6 H (94-97) % Sodium 131 L (137-145) mmol/L Potassium (3.5-5.5) mmol/L Carbon Dioxide 21 L (22-30) mmol/L BUN 62 H (9.0-27.0) mg/dL Creatinine 3.05 H (0.66-1.25) mg/dL POC Glucose (mg/dL) (75-99) mg/dL Calcium 7.1 L (8.4-10.2) mg/dL Microbiology - Last 24 Hours (Table) 02/10/20 20:05 Gram Stain - Preliminary Sputum Sputum Culture - Preliminary Assessment and Plan Plan: 1 Acute hypoxemic/hypercapnic respiratory failure requiring intubation mechanical ventilator toward support from 02/03/2020 through 02/04/2020. The patient was extubated on 02/04/2020 with subsequent reintubation overnight and the patient is currently back intubated on a mechanical ventilator with extensive consolidation of the left lung secondary to gram-negative pneumonia. The cultures have indicated infection with Enterobacter. A repeat CAT scan of the chest will be needed to reevaluate the extent of consolidation and volume loss in addition to extent of pleural effusion. Previous bronchoscopies shown no evidence of an endobronchial lesions obstructing the airway. The patient extubated and he was supported with BiPAP. Furthermore, on today's evaluation, the patient was noted to have persistent left sided pleural effusion and another thoracentesis was done and a total of 500 mL of pleural fluid aspirated from the left lung with adequate aeration of the left upper lobe area. There is still some volume loss and consolidation of left lung base. Sputum is growing again gram-negative bacillus. 2 Recurrent left lung pleural effusion with previous thoracentesis with animal fluid returned on 02/03/2020. Fluid positive for Enterobacter gergoviae and Streptococcus. And a follow-up sputum culture is still pending for now. 3 gram-negative pneumonia with Enterobacter and the patient has dense consolidation left lung infiltrate status post bronchoscopy with BAL on 02/03/2020 and again on 02/06/2020. Cultures positive for Enterobacter gergoviae and the patient is currently on IV Zosyn. 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 The patient be taken off the Levemir insulin. 12 Gastric esophageal reflux disease 13 Nonischemic cardiomyopathy status post AICD placement 14 Chronic pancreatitis with pancreatic exocrine insufficiency 15 History of pancreatic pseudocyst 16 Poor overall functional performance based on the above mentioned multiple comorbidities Plan Continue BiPAP throughout the night Recheck the pleural fluid analysis for Gram stain and culture Awaiting repeat sputum Gram stain and culture results which is showing gram- negative bacillus Repeat chest x-ray postthoracentesis shows improvement in aeration of the left lung Chest PT Continue IV Zosyn which is an appropriate antibiotic coverage for him at this point in time IV fluids to KVO Stop the Levemir insulin and the patient will be taken off the D5 water Proceed with hemodialysis today with ultrafiltration The patient is awake and alert. We'll continue to follow make further recommendations based on his progress. Is a critically care evaluation was done in more than 30 minutes. Outcomes is critical and poor based on the above-mentioned comorbidities. Time with Patient: Greater than 30
[2020-02-12 18:12] LABS: Appearance,BF Hazy; Color,BF Yellow; Mononuclear WBC,Body Fluid 89 %; Nucleated Cells, Body Fluid 375 /uL; Polynuclear WBC,Body Fluid 11 %; RBC, Body Fluid 4425 /uL
[2020-02-12] MEDS: SODIUM CHLORIDE 0.9% 1,000 ML IV SCH (18:23)
[2020-02-12 20:42] LABS: Glucose,Whole Blood 291 mg/dL (75-99)
[2020-02-12] MEDS: ATORVASTATIN 10 MG TAB PO SCH (20:52)
--- NOTE | 2020-02-12 22:22 | P.PN ---
Subjective Principal diagnosis: CHF with COPD element The patient is a 59-year-old white male with known history of chronic back otitis diabetes CHF and COPD. The patient feels fine even though he has had multiple bronchoscopy. Chest x-ra y is poorly aerated. The patient is now extubated and on BiPAP. Objective - Vital Signs Vital signs: Vital Signs Temp 98.4 F 02/12/20 20:00 Pulse 95 02/12/20 21:18 Resp 18 02/12/20 21:18 BP 125/75 02/12/20 21:00 Pulse Ox 98 02/12/20 21:00 Intake & Output 02/12/20 02/12/20 02/13/20 06:59 18:59 06:59 Intake Total 6675.385 1088 455 Output Total 490 1690 165 Balance 1014.743 -190 290 Weight 77.3 kg Intake: IV 900 1000 215 Dextrose 5% in Water 1, 900 900 195 000 ml @ 75 mls/hr IV . [id number] JOSY Rx#:[id number] Piperacillin-Tazobactam 3 100 .375 gm In Sodium Chloride 0.9% 100 ml @ 25 mls/hr IVPB Q12H JOSY Rx# :[id number] Sodium Chloride 0.9% 1, 20 000 ml @ 10 mls/hr IV . Q24H JOSY Rx#:[id number] Intake, IV Titration 147.743 Amount propofoL 1,000 mg In 147.743 Empty Bag 1 bag @ Titrate IV .Q0M JOSY Rx#: [id number] Oral 500 240 Tube Feeding 397 Other 60 Output: Urine 490 190 165 Hemodialysis 1500 Other: Voiding Method Indwelling Catheter Indwelling Catheter # Bowel Movements 1 ABP, PAP, CO, CI - Last Documented Arterial Blood Pressure 183/72 - Constitutional General appearance: Present: thin - EENT Eyes: Absent: abnormal pupil - Neck Neck: Absent: lymphadenopathy - Respiratory Respiratory: bilateral: CTA - Cardiovascular Rhythm: irregularly irregular Heart sounds: normal: S1 Abnormal Heart Sounds: Absent: S3 Gallop - Gastrointestinal General gastrointestinal: Present: soft. Absent: tenderness - Integumentary Integumentary: Absent: cellulitis - Labs CBC & Chem 7: 02/12/20 03:46 02/12/20 03:46 Labs: Abnormal Lab Results - Last 24 Hours (Table) 02/12/20 02/12/2020 Range/Units 03:46 03:46 06:01 RBC 3.16 L (4.30-5.90) m/uL Hgb 9.5 L (13.0-17.5) gm/dL Hct 28.3 L (39.0-53.0) % Plt Count 53 L (150-450) k/uL Lymphocytes # 0.9 L (1.0-4.8) k/uL PT (9.0-12.0) sec INR (<1.2) ABG pH 7.25 L (7.35-7.45) ABG pCO2 50 H (35-45) mmHg ABG pO2 126 H (83-108) mmHg ABG O2 Saturation 97.6 H (94-97) % Sodium 131 L (137-145) mmol/L Carbon Dioxide 21 L (22-30) mmol/L BUN 62 H (9-20) mg/dL Creatinine 3.05 H (0.66-1.25) mg/dL POC Glucose (mg/dL) (75-99) mg/dL Calcium 7.1 L (8.4-10.2) mg/dL 02/12/20 02/12/20 02/12/20 Range/Units 10:39 12:58 12:59 RBC (4.30-5.90) m/uL Hgb (13.0-17.5) gm/dL Hct (39.0-53.0) % Plt Count (150-450) k/uL Lymphocytes # (1.0-4.8) k/uL PT 12.1 H (9.0-12.0) sec INR 1.2 H (<1.2) ABG pH (7.35-7.45) ABG pCO2 (35-45) mmHg ABG pO2 (83-108) mmHg ABG O2 Saturation (94-97) % Sodium (137-145) mmol/L Carbon Dioxide (22-30) mmol/L BUN (9-20) mg/dL Creatinine (0.66-1.25) mg/dL POC Glucose (mg/dL) 44 L 74 L (75-99) mg/dL Calcium (8.4-10.2) mg/dL 02/12/20 Range/Units 20:40 RBC (4.30-5.90) m/uL Hgb (13.0-17.5) gm/dL Hct (39.0-53.0) % Plt Count (150-450) k/uL Lymphocytes # (1.0-4.8) k/uL PT (9.0-12.0) sec INR (<1.2) ABG pH (7.35-7.45) ABG pCO2 (35-45) mmHg ABG pO2 (83-108) mmHg ABG O2 Saturation (94-97) % Sodium (137-145) mmol/L Carbon Dioxide (22-30) mmol/L BUN (9-20) mg/dL Creatinine (0.66-1.25) mg/dL POC Glucose (mg/dL) 291 H (75-99) mg/dL Calcium (8.4-10.2) mg/dL Microbiology - Last 24 Hours (Table) 02/10/20 20:05 Gram Stain - Preliminary Sputum Sputum Culture - Preliminary Gram Neg Bacilli Assessment and Plan (1) Congestive heart failure Current Visit: Yes Status: Acute Code(s): I50.9 - HEART FAILURE, UNSPECIFIED SNOMED Code(s): 39491450 (2) Hyperglycemia Current Visit: Yes Status: Acute Code(s): R73.9 - HYPERGLYCEMIA, UNSPECIFIED SNOMED Code(s): 12312547 (3) Hyponatremia Current Visit: Yes Status: Acute Code(s): E87.1 - HYPO-OSMOLALITY AND HYPONATREMIA SNOMED Code(s): 63767706 (4) Respiratory failure Current Visit: No Status: Acute Code(s): J96.90 - RESPIRATORY FAILURE, UNSP, UNSP W HYPOXIA OR HYPERCAPNIA SNOMED Code(s): 742074200 Plan: Continue supportive care Check CBC and CMP in the a.m. Prognosis is guarded secondary to his multiple comorbidities. Continue respiratory support. Watch diabetes closely. Again, the patient is now extubated and continue supportive care. Time with Patient: Greater than 30
[2020-02-13 04:16] LABS: Basophils % (A) 0 %; Eosinophils % (A) 0 %; HCT 29.2 % (39.0-53.0); HGB 9.3 gm/dL (13.0-17.5); Lymphocytes # (A) 0.7 k/uL (1.0-4.8); Lymphocytes % (A) 13 %; MCH 29.8 pg (25.0-35.0); MCV 93.3 fL (80.0-100.0); Monocytes # (A) 0.5 k/uL (0-1.0); Monocytes % (A) 9 %; Neutrophils % (A) 75 %; RBC 3.12 m/uL (4.30-5.90); RDW 14.4 % (11.5-15.5); WBC 5.3 k/uL (3.8-10.6)
[2020-02-13 04:22] LABS: Glucose, BF Source Pleural Fluid; Glucose, Body Fluid 100 mg/dL; LDH, Body Fluid Source Pleural Fluid
[2020-02-13 04:24] LABS: Platelet Count 53 k/uL (150-450)
[2020-02-13 04:25] LABS: Phosphorus 6.7 mg/dL (2.5-4.5); Potassium 4.3 mmol/L (3.5-5.1)
[2020-02-13] MEDS: DEXTROSE 5% IN WATER 1,000 ML IV SCH (05:52)
[2020-02-13 07:23] LABS: Glucose,Whole Blood 228 mg/dL (75-99)
--- NOTE | 2020-02-13 07:31 | XR ---
EXAMINATION TYPE: XR chest 1V portable DATE OF EXAM: 02/13/2020 HISTORY: Shortness of breath. COMPARISON: 02/12/2020 TECHNIQUE: Single view of the chest is submitted. FINDINGS: Demonstrated are scattered senescent parenchymal change. Increasing opacification left hemithorax with complete opacification of approximately two thirds of t he left lung. There is a persistent patchy density at the right lung base. The heart is stable. Hilar and mediastinal structures are within normal limits. Degenerative changes are seen of the dorsal spine. IMPRESSION: 1. Increasing opacification left hemithorax with complete opacification of approximately two thirds of the left lung. There is a persistent patchy density at the right lung base.
[2020-02-13] MEDS: INSULIN ASPART (NovoLOG) 100 UNIT/ML VIAL SQ SCH ×4 (08:11→20:57)
[2020-02-13] MEDS: METOPROLOL SUCCINATE (ER) 25 MG TAB.ER.24H PO SCH (08:13)
[2020-02-13] MEDS: predniSONE 10 MG TAB PO SCH (08:13)
[2020-02-13] MEDS: PREGABALIN 100 MG CAP PO SCH ×2 (08:13→20:55)
[2020-02-13] MEDS: ENOXAPARIN 30 MG/0.3 ML SYRINGE SQ SCH (08:14)
[2020-02-13] MEDS: ISOSORBIDE MONONITRATE ER 30 MG TAB.ER.24H PO SCH (08:14)
[2020-02-13] MEDS: LIPASE 5,000/PROTEASE 17,000/AMYLASE 24,000 PO SCH (08:16)
--- NOTE | 2020-02-13 08:48 | P.PN ---
Subjective Patient is seen in follow-up for acute kidney injury. Had third treatment of hemodialysis yesterday with 1.5 L ultrafiltration. Oral intake slowly improving. Blood sugars stable. Urine output 50-100 mL an hour overnight. Denies chest pain or shortness of breath. Vital signs are stable. General: The patient appeared well nourished and normally developed. HEENT: Head exam is unremarkable. Lungs: Breath sounds decreased. HEART: Rate and Rhythm are regular. ABDOMEN: Soft, no distention noted. EXTREMITITES: 1+ edema. Objective - Vital Signs Vital signs: Vital Signs Temp 98.0 F 02/13/20 04:00 Pulse 86 02/13/20 06:00 Resp 23 02/13/20 06:00 BP 107/75 02/13/20 06:00 Pulse Ox 98 02/13/20 06:00 Intake & Output 02/12/20 02/13/20 02/13/20 18:59 06:59 18:59 Intake Total 1500 995 Output Total 1690 655 Balance -190 340 Intake: IV 1000 755 Dextrose 5% in Water 1, 900 555 000 ml @ 75 mls/hr IV . [id number] JOS[facility] Rx#:[id number] Piperacillin-Tazobactam 3 100 100 .375 gm In Sodium Chloride 0.9% 100 ml @ 25 mls/hr IVPB Q12H [facility] Rx# :[id number] Sodium Chloride 0.9% 1, 100 000 ml @ 10 mls/hr IV . Q24H [facility]OS[facility] Rx#:[id number] Oral 500 240 Output: Urine 190 655 Hemodialysis 1500 Other: Voiding Method Indwelling Catheter Indwelling Catheter ABP, PAP, CO, CI - Last Documented Arterial Blood Pressure 183/72 - Labs CBC & Chem 7: 02/13/20 03:27 02/13/20 03:27 Labs: Abnormal Lab Results - Last 24 Hours (Table) 02/12/20 02/12/20 02/12/20 Range/Units 10:39 12:58 12:59 RBC (4.30-5.90) m/uL Hgb (13.0-17.5) gm/dL Hct (39.0-53.0) % Plt Count (150-450) k/uL Lymphocytes # (1.0-4.8) k/uL PT 12.1 H (9.0-12.0) sec INR 1.2 H (<1.2) Sodium (137-145) mmol/L Chloride (98-107) mmol/L BUN (9-20) mg/dL Creatinine (0.66-1.25) mg/dL Glucose (74-99) mg/dL POC Glucose (mg/dL) 44 L 74 L (75-99) mg/dL Calcium (8.4-10.2) mg/dL Phosphorus (2.5-4.5) mg/dL 02/12/20 02/13/20 02/13/20 Range/Units 20:40 03:27 03:27 RBC 3.12 L (4.30-5.90) m/uL Hgb 9.3 L (13.0-17.5) gm/dL Hct 29.2 L (39.0-53.0) % Plt Count 53 L (150-450) k/uL Lymphocytes # 0.7 L (1.0-4.8) k/uL PT (9.0-12.0) sec INR (<1.2) Sodium 127 L (137-145) mmol/L Chloride 97 L (98-107) mmol/L BUN 51 H (9-20) mg/dL Creatinine 2.69 H (0.66-1.25) mg/dL Glucose 229 H (74-99) mg/dL POC Glucose (mg/dL) 291 H (75-99) mg/dL Calcium 7.0 L (8.4-10.2) mg/dL Phosphorus 6.7 H (2.5-4.5) mg/dL 02/13/20 Range/Units 07:12 RBC (4.30-5.90) m/uL Hgb (13.0-17.5) gm/dL Hct (39.0-53.0) % Plt Count (150-450) k/uL Lymphocytes # (1.0-4.8) k/uL PT (9.0-12.0) sec INR (<1.2) Sodium (137-145) mmol/L Chloride (98-107) mmol/L BUN (9-20) mg/dL Creatinine (0.66-1.25) mg/dL Glucose (74-99) mg/dL POC Glucose (mg/dL) 228 H (75-99) mg/dL Calcium (8.4-10.2) mg/dL Phosphorus (2.5-4.5) mg/dL Microbiology - Last 24 Hours (Table) 02/12/20 16:21 Gram Stain - Preliminary Pleural Fluid Body Fluid Culture - Preliminary 02/12/20 16:21 Fungal Culture - Preliminary Pleural Fluid 02/12/20 16:21 Anaerobic Culture - Preliminary Pleural Fluid 02/12/20 16:21 Acid Fast Bacilli Culture - Preliminary Pleural Fluid 02/10/20 20:05 Gram Stain - Preliminary Sputum Sputum Culture - Preliminary Gram Neg Bacilli Assessment and Plan Plan: Assessment: 1. Acute kidney injury secondary to ATN secondary to sepsis and cardiorenal syndrome. Started on hemodialysis February 09. No hydronephrosis noted on kidney ultrasound. Urine output 50-100 mL an hour. 2. Whiteout of the right lung. Possibly pneumonia. No fluid obtained with thoracentesis. Status post bronchoscopy with removal of mucous plugs. Underwent another thoracentesis on February 11 with 500 mL drained from the left pleural space. 3. Acute on chronic systolic CHF with ejection fraction of 25% with moderate mitral regurgitation. 4. Acute hypoxic and hypercapnic respiratory failure. 5. Hyperkalemia secondary to acute kidney injury and metabolic acidosis. Resolved. 6. Hyponatremia secondary to acute kidney injury. Hypervolemic. Also on hypotonic fluids. 7. Pleural space infection maintained on antibiotics; sputum culture positive for gram-negative bacilli. 8. Chronic kidney disease stage III with baseline creatinine in the range of 1.1-1.5. Etiology is most likely diabetic kidney disease. 9. Hypoglycemia maintained on D5W. Resolved. 10. Hyperphosphatemia secondary to acute kidney injury. 11. Anemia of chronic kidney disease. Plan: Hold hemodialysis today. Continue to assess daily for need for further renal replacement therapy. Add Lasix 40 mg IV daily. Continue to monitor renal function and urine output. Add PhosLo with meals. Add Aranesp. Hep-Lock IV fluids.
[2020-02-13] MEDS: IPRATROPIUM-ALBUTEROL 3 ML NEB INHALATION SCH ×4 (09:17→19:57)
[2020-02-13] MEDS: SYMBICORT 160-4.5 MCG INHALER INHALATION SCH ×2 (09:17→19:59)
[2020-02-13] MEDS: FUROSEMIDE 10 MG/ML 4 ML VIAL IV SCH (11:22)
[2020-02-13] MEDS: DARBEPOETIN ALFA 40 MCG/0.4 ML SYRINGE SQ SCH (11:22)
[2020-02-13 12:22] LABS: Glucose,Whole Blood 392 mg/dL (75-99)
[2020-02-13] MEDS: PIPERACILLIN-TAZOBACTAM 3.375 GM in SODIUM CHLORIDE 0.9% 100 ML IVPB SCH ×2 (12:35→23:51)
[2020-02-13] MEDS: CALCIUM ACETATE 667 MG TAB PO SCH ×2 (12:35→17:24)
--- NOTE | 2020-02-13 15:22 | P.PN ---
Subjective Progress Note Date: 02/13/20 Principal diagnosis: Acute on chronic hypoxemic/hypercapnic respiratory failure requiring intubation mechanical ventilatory support from February 02 and successfully extubated Novem nirmal 9. 59-year-old male patient is well-known to me and the patient is currently in the intensive care unit after being reintubated yesterday for respiratory support for an extensive left lung pneumonia. Note that the patient required intubation mechanical ventilation earlier and the patient was successfully extubated on 02/04/2020. His pulmonary workup that included a bronchoscopy and the lavage that showed Enterobacter and the same micrograms and was also cultured from the pleural fluid that was aspirated on 02/03/2020. The patient currently remains on IV antibiotics and the patient is receiving IV Zosyn. Noted the chest exit shown significant consolidation and atelectasis of the left lung in addition to a small left-sided pleural effusion. Overnight, the patient became more hypoxic and less responsive. He had to be reintubated and he was brought into the intensive care unit for further care. This morning, the patient is on propofol running at 10 mg per KG per minute. He is easily arousable while being on sedation. He is also receiving normal sed rate of 75 mL an hour. He remains on assist control mode of ventilation at the rate of 24 the tidal volume of 450 and FiO2 of 40% with a PEEP of 5. The blood gas showed pH of 7.36 with a pCO2 of 37 and pO2 95. The patient is currently on no pressors. He is maintaining his own blood pressure. No fever. No chills. No leukocytosis with a white cell count 3.9. He has developed an acute kidney injury. As mentioned earlier creatinine came up to 5.8 and currently is down to 3.98 and the patient is going to require another session of hemodialysis today. The patient will be kept in ICU for now. I'm suggesting a repeat CAT scan of the chest to reevaluate the left lung. Based on my earlier review of the CAT scan that was done earlier, the patient has volume loss and extensive consolidation with a component of pleural fluid. I think this is essentially small at this point in time. He is on a prednisone burst taper currently on 30 mg by mouth daily. He is on Lovenox 30 mg subcu for DVT prophylaxis. He is on Levemir insulin 22 units at bedtime in addition to a size care coverage. The patient is also to be started enteral feeding for nutritional support. 02/12/2020, the patient is being seen for a follow-up. The patient is currently extubated. In the operations specialists hours, the patient self extubated and the patient was not reintubated. He was kept on BiPAP at a pressure of 14/7 cm of water and FiO2 of 50%. He is much more comfortable at this point in time is breathing adequately. He is communicating and is awake and alert. Chest x-ray shows significant volume loss on the left with significant opacification of the left lung, however there is some slight improvement in the upper outer left lung with some improved aeration the left upper lobe area. The patient also has a mild right lower lobe pulmonary infiltration. Based on this, I contacted interventional radiology. I requested an ultrasound-guided thoracentesis and another 500 mL of pleural fluid was aspirated from the patient's lung successfully. Postprocedure chest x-ray shows significant improvement in aeration of the left lung. Nevertheless distal constellation of the left lower lobe along with some volume loss. The patient will be kept on the BiPAP overnight. I contacted the sister and I also updated her on the condition. Meanwhile, the patient will be kept on DuoNeb nebulized treatments on the clock and the patient is also on IV Zosyn regarding the gram-negative pneumonia with a parapneumonic effusion that was attributed to be related to Enterobacter. Repeat sputum sample was also sent and it's still growing gram-negative bacillus and would awaiting final cultures and sensitivities. In addition, the patient is going to undergo hemodialysis today. IV fluids at [facility] The patient is seen today 02/13/2020 in follow-up on the selective care unit. He was transferred out of the ICU earlier this morning. He is sitting up at the bedside. Awake and alert in no acute distress. He is currently maintaining good O2 saturations in the high 90s on 7 L high flow nasal cannula. She's been afebrile. Hemodynamically stable. Initial pleural fluid cultures from 02/03/2020 were positive for alpha hemolytic streptococcus, Enterobacter gergoviae, Enterobacter cloacae. Follow-up fluid cultures from 02/12/2020 are pending. White count 5.3. Hemoglobin 9.3. Platelet count 53,000. Sodium 127. Potassium 4.3. Creatinine 2.69. Is currently on Zosyn along with bronchodilators, oral prednisone, IV diuretics. Lovenox for DVT prophylaxis. Objective - Vital Signs Vital signs: Vital Signs Temp 97.4 F L 02/13/20 12:00 Pulse 88 02/13/20 12:09 Resp 20 02/13/20 12:00 BP 124/68 02/13/20 12:00 Pulse Ox 99 02/13/20 12:00 Intake & Output 02/12/20 02/13/20 02/13/20 18:59 06:59 18:59 Intake Total 1500 995 Output Total 1690 655 Balance -190 340 Intake: IV 1000 755 Dextrose 5% in Water 1, 900 555 000 ml @ 75 mls/hr IV . [id number] JOSY Rx#:[id number] Piperacillin-Tazobactam 3 100 100 .375 gm In Sodium Chloride 0.9% 100 ml @ 25 mls/hr IVPB Q12H JOSY Rx# :[id number] Sodium Chloride 0.9% 1, 100 000 ml @ 10 mls/hr IV . Q24H JOSY Rx#:[id number] Oral 500 240 Output: Urine 190 655 Hemodialysis 1500 Other: Voiding Method Indwelling Catheter Indwelling Catheter Indwelling Catheter ABP, PAP, CO, CI - Last Documented Arterial Blood Pressure 183/72 - Exam GENERAL EXAM: Alert, pleasant 59-year-old gentleman, appears older than stated age, on 7 L high flow nasal cannula, comfortable in no apparent distress. HEAD: Normocephalic. EYES: Normal reaction of pupils, equal size. NOSE: Clear with pink turbinates. THROAT: No erythema or exudates. NECK: No masses, no JVD. CHEST: No chest wall deformity. LUNGS: Equal air entry with basilar crackles left greater than right, dimini shed. CVS: S1 and S2 normal with no audible murmur, regular rhythm. ABDOMEN: No hepatosplenomegaly, normal bowel sounds, no guarding or rigidity. SPINE: No scoliosis or deformity SKIN: No rashes CENTRAL NERVOUS SYSTEM: No focal deficits, tone is normal in all 4 extremities. EXTREMITIES: There is no peripheral edema. No clubbing, no cyanosis. Peripheral pulses are intact. - Labs CBC & Chem 7: 02/13/20 03:27 02/13/20 03:27 Labs: Abnormal Lab Results - Last 24 Hours (Table) 02/12/20 02/13/20 02/13/20 Range/Units 20:40 03:27 03:27 RBC 3.12 L (4.30-5.90) m/uL Hgb 9.3 L (13.0-17.5) gm/dL Hct 29.2 L (39.0-53.0) % Plt Count 53 L (150-450) k/uL Lymphocytes # 0.7 L (1.0-4.8) k/uL Sodium 127 L (137-145) mmol/L Chloride 97 L (98-107) mmol/L BUN 51 H (9-20) mg/dL Creatinine 2.69 H (0.66-1.25) mg/dL Glucose 229 H (74-99) mg/dL POC Glucose (mg/dL) 291 H (75-99) mg/dL Calcium 7.0 L (8.4-10.2) mg/dL Phosphorus 6.7 H (2.5-4.5) mg/dL 02/13/20 02/13/20 Range/Units 07:12 12:20 RBC (4.30-5.90) m/uL Hgb (13.0-17.5) gm/dL Hct (39.0-53.0) % Plt Count (150-450) k/uL Lymphocytes # (1.0-4.8) k/uL Sodium (137-145) mmol/L Chloride (98-107) mmol/L BUN (9-20) mg/dL Creatinine (0.66-1.25) mg/dL Glucose (74-99) mg/dL POC Glucose (mg/dL) 228 H 392 H (75-99) mg/dL Calcium (8.4-10.2) mg/dL Phosphorus (2.5-4.5) mg/dL Microbiology - Last 24 Hours (Table) 02/12/20 16:21 Gram Stain - Preliminary Pleural Fluid Body Fluid Culture - Preliminary 02/12/20 16:21 Fungal Culture - Preliminary Pleural Fluid 02/12/20 16:21 Anaerobic Culture - Preliminary Pleural Fluid 02/12/20 16:21 Acid Fast Bacilli Culture - Preliminary Pleural Fluid 02/10/20 20:05 Gram Stain - Preliminary Sputum Sputum Culture - Preliminary Gram Neg Bacilli Assessment and Plan Assessment: 1 Acute hypoxemic/hypercapnic respiratory failure requiring intubation mechanical ventilator toward support from 02/03/2020 through 02/04/2020. The patient was extubated on 02/04/2020 with subsequent reintubation and self extubated, currently on 7 L high flow nasal cannula. Previous bronchoscopies shown no evidence of an endobronchial lesions obstructing the airway. The patient was noted to have persistent left sided pleural effusion and another thoracentesis was done and a total of 500 mL of pleural fluid aspirated from the left lung with adequate aeration of the left upper lobe area. There is still some volume loss and consolidation of left lung base. Sputum is growing again gram-negative bacillus. 2 Recurrent left lung pleural effusion with previous thoracentesis with animal fluid returned on 02/03/2020. Fluid positive for Enterobacter gergoviae and Streptococcus. And a follow-up sputum culture is still pending for now. 3 Gram-negative pneumonia with Enterobacter and the patient has dense consolidation left lung infiltrate status post bronchoscopy with BAL on 02/03/2020 and again on 02/06/2020. Cultures positive for Enterobacter gergoviae and the patient is currently on IV Zosyn. 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 The patient be taken off the Levemir insulin. 12 Gastric esophageal reflux disease 13 Nonischemic cardiomyopathy status post AICD placement 14 Chronic pancreatitis with pancreatic exocrine insufficiency 15 History of pancreatic pseudocyst 16 Poor overall functional performance based on the above mentioned multiple comorbidities Plan The patient was seen and evaluated by Dr. Khanna Checks x-ray, labs and microbiology reviewed He is doing well today Continue to titrate down the FiO2 as tolerated Continue Zosyn and bronchodilators Encouraged increased use of the incentive spirometer and cough and deep breathing exercises We will continue to follow I, the cosigning physician, performed a history & physical examination of the patient. Lungs sounds with bilateral scattered rhonchi more so on the left. Maintaining good O2 saturations in the 90s on 7 L high flow nasal cannula. I discussed the assessment and plan of care with my nurse practitioner, Elenita Anne. I attest to the above note as dictated by her.
[2020-02-13 17:01] LABS: Glucose,Whole Blood 369 mg/dL (75-99)
[2020-02-13 19:47] LABS: Glucose,Whole Blood 426 mg/dL (75-99)
[2020-02-13] MEDS ORDERED: INSULIN ASPART (NovoLOG) 100 UNIT/ML VIAL SQ ONE (20:37)
[2020-02-13] MEDS: HYDROcodone/APAP 10-325MG 1 EACH TAB PO PRN (20:56)
[2020-02-13 20:57] LABS: Glucose,Whole Blood 400 mg/dL (75-99)
[2020-02-13] MEDS: ALPRAZolam 0.25 MG TAB PO PRN ×2 (20:57)
[2020-02-13] MEDS: ATORVASTATIN 10 MG TAB PO SCH (20:57)
[2020-02-13] MEDS: DOCUSATE 100 MG CAP PO PRN (20:57)
[2020-02-13 23:07] LABS: Glucose,Whole Blood 206 mg/dL (75-99)
[2020-02-14] MEDS: IPRATROPIUM-ALBUTEROL 3 ML NEB INHALATION PRN ×2 (00:19→23:19)
[2020-02-14] MEDS: SODIUM CHLORIDE 0.9% 1,000 ML IV SCH ×2 (03:09→22:17)
[2020-02-14] MEDS: HYDROcodone/APAP 10-325MG 1 EACH TAB PO PRN ×3 (03:13→20:18)
[2020-02-14 06:17] LABS: Glucose,Whole Blood 118 mg/dL (75-99)
[2020-02-14] MEDS: INSULIN ASPART (NovoLOG) 100 UNIT/ML VIAL SQ SCH ×4 (06:26→22:15)
[2020-02-14] MEDS: CALCIUM ACETATE 667 MG TAB PO SCH ×3 (06:40→17:26)
[2020-02-14] MEDS: LIPASE 5,000/PROTEASE 17,000/AMYLASE 24,000 PO SCH (06:40)
[2020-02-14 07:54] LABS: Basophils % (A) 0 %; Eosinophils # (A) 0.1 k/uL (0-0.7); Eosinophils % (A) 2 %; HCT 30.6 % (39.0-53.0); HGB 9.9 gm/dL (13.0-17.5); Lymphocytes # (A) 1.2 k/uL (1.0-4.8); Lymphocytes % (A) 20 %; MCH 30.5 pg (25.0-35.0); MCHC 32.4 g/dL (31.0-37.0); Mean Platelet Volume 10.4; Monocytes # (A) 0.4 k/uL (0-1.0); Monocytes % (A) 7 %; Neutrophils # (A) 3.8 k/uL (1.3-7.7); Neutrophils % (A) 67 %; RBC 3.25 m/uL (4.30-5.90); RDW 14.3 % (11.5-15.5); WBC 5.7 k/uL (3.8-10.6)
[2020-02-14 08:05] LABS: Platelet Count 48 k/uL (150-450)
--- NOTE | 2020-02-14 08:08 | P.PN ---
Subjective Principal diagnosis: CHF with COPD element The patient is a 59-year-old white male with known history of chronic pancreatitis diabetes CHF and COPD. The patient feels fine even though he has had multiple bronchoscopy. Chest x-r ay is poorly aerated. Severe pneumonia The patient is on nasal cannula and doing better. \ Objective - Vital Signs Vital signs: Vital Signs Temp 97.5 F L 02/14/20 03:31 Pulse 70 02/14/20 03:31 Resp 18 02/14/20 03:31 BP 107/68 02/14/20 03:31 Pulse Ox 100 02/14/20 03:31 Intake & Output 02/13/20 02/14/20 02/14/20 18:59 06:59 18:59 Intake Total 480 Output Total 700 300 Balance -220 -300 Weight 75.7 kg Intake: Oral 480 Output: Urine 700 300 Uretheral (Pierson) 700 300 Other: Voiding Method Indwelling Catheter Indwelling Catheter ABP, PAP, CO, CI - Last Documented Arterial Blood Pressure 183/72 - Constitutional General appearance: Present: thin - EENT Eyes: Absent: abnormal pupil - Neck Neck: Absent: lymphadenopathy - Respiratory Respiratory: bilateral: diminished - Cardiovascular Rhythm: regular Heart sounds: normal: S1, S2 Abnormal Heart Sounds: Absent: S3 Gallop - Gastrointestinal General gastrointestinal: Present: soft. Absent: tenderness - Integumentary Integumentary Comment(s): Lower extremity edema noted. - Musculoskeletal Musculoskeletal: Present: generalized weakness - Labs CBC & Chem 7: 02/14/20 00:46 02/13/20 03:27 Labs: Abnormal Lab Results - Last 24 Hours (Table) 02/13/20 02/13/20 02/13/20 Range/Units 12:20 16:24 19:45 RBC (4.30-5.90) m/uL Hgb (13.0-17.5) gm/dL Hct (39.0-53.0) % Plt Count (150-450) k/uL POC Glucose (mg/dL) 392 H 369 H 426 H (75-99) mg/dL 02/13/20 02/13/20 02/14/20 Range/Units 20:56 23:05 00:46 RBC 3.25 L (4.30-5.90) m/uL Hgb 9.9 L (13.0-17.5) gm/dL Hct 30.6 L (39.0-53.0) % Plt Count 48 L (150-450) k/uL POC Glucose (mg/dL) 400 H 206 H (75-99) mg/dL 02/14/20 Range/Units 06:12 RBC (4.30-5.90) m/uL Hgb (13.0-17.5) gm/dL Hct (39.0-53.0) % Plt Count (150-450) k/uL POC Glucose (mg/dL) 118 H (75-99) mg/dL Microbiology - Last 24 Hours (Table) 02/12/20 16:21 Gram Stain - Preliminary Pleural Fluid Body Fluid Culture - Preliminary 02/12/20 16:21 Acid Fast Bacilli Smear - Final Pleural Fluid Acid Fast Bacilli Culture - Preliminary Assessment and Plan (1) Congestive heart failure Current Visit: Yes Status: Acute Code(s): I50.9 - HEART FAILURE, UNSPECIFIED SNOMED Code(s): 31499907 (2) Hyperglycemia Current Visit: Yes Status: Acute Code(s): R73.9 - HYPERGLYCEMIA, UNSPECIFIED SNOMED Code(s): 41260618 (3) Hyponatremia Current Visit: Yes Status: Acute Code(s): E87.1 - HYPO-OSMOLALITY AND HYPONATREMIA SNOMED Code(s): 58745299 (4) Respiratory failure Current Visit: No Status: Acute Code(s): J96.90 - RESPIRATORY FAILURE, UNSP, UNSP W HYPOXIA OR HYPERCAPNIA SNOMED Code(s): 462024797
[2020-02-14 08:15] LABS: Calcium 7.6 mg/dL (8.4-10.2); Magnesium 1.9 mg/dL (1.6-2.3); Potassium 4.3 mmol/L (3.5-5.1)
[2020-02-14] MEDS: IPRATROPIUM-ALBUTEROL 3 ML NEB INHALATION SCH ×4 (08:27→22:21)
[2020-02-14] MEDS: PREGABALIN 100 MG CAP PO SCH ×2 (08:41→20:16)
[2020-02-14] MEDS: FUROSEMIDE 10 MG/ML 4 ML VIAL IV SCH ×2 (08:42→20:15)
[2020-02-14] MEDS: METOPROLOL SUCCINATE (ER) 25 MG TAB.ER.24H PO SCH (08:42)
[2020-02-14] MEDS: ISOSORBIDE MONONITRATE ER 30 MG TAB.ER.24H PO SCH (08:42)
[2020-02-14] MEDS: ENOXAPARIN 30 MG/0.3 ML SYRINGE SQ SCH (08:42)
[2020-02-14] MEDS: predniSONE 10 MG TAB PO SCH (08:42)
--- NOTE | 2020-02-14 08:45 | US ---
Ultrasound-guided therapeutic and diagnostic thoracentesis DATE OF EXAM: 02/12/2020 CLINICAL HISTORY: Pleural effusion The procedure was discussed with the patient. The risks, complications, benefits, and alternatives we re discussed and any questions were answered. Informed consent was obtained. The patient was placed supine on the ultrasound table and prepped and draped in the usual sterile fas hion. All elements of maximal barrier and sterile technique were utilized. Under ultrasound guidance, access into the pleural space was obtained, via the thoracentesis catheter system and direct ultrasound guidance.Logan roximately 0.56 liters of straw-colored fluid was removed. Sample sent to pathology for analysis. The patient was stable throughout the procedure and remained stable upon discharge from Department of Radiology. IMPRESSION: 1. Successful therapeutic and diagnostic thoracentesis under ultrasound guidance.
[2020-02-14] MEDS: SYMBICORT 160-4.5 MCG INHALER INHALATION SCH ×2 (11:52→22:21)
[2020-02-14 12:12] LABS: Glucose,Whole Blood 323 mg/dL (75-99)
--- NOTE | 2020-02-14 12:27 | XR ---
EXAMINATION TYPE: XR chest 1V DATE OF EXAM: 02/14/2020 COMPARISON: Prior chest x-ray 02/13/2020 HISTORY: Abnormal chest x-ray, pneumonia TECHNIQUE: Single frontal view of the chest is obtained. FINDINGS: Bibasilar increased attenuation is present, the hemidiaphragms are obscured, there is blun ting the costophrenic angles. No evident pneumothorax. Pacemaker stable. Aorta is dense. Heart is lik dylan enlarged. IMPRESSION: Basilar effusions and associated atelectasis versus edema, correlate for pneumonia.
[2020-02-14] MEDS: PIPERACILLIN-TAZOBACTAM 3.375 GM in SODIUM CHLORIDE 0.9% 100 ML IVPB SCH ×2 (12:29→23:24)
--- NOTE | 2020-02-14 13:12 | P.PN ---
Subjective Patient is seen in follow-up for acute kidney injury. Had third treatment of hemodialysis on February 11 with 1.5 L ultrafiltration. Oral intake is good. Blood sugars stable. Urine output over 2 L in the last 24 hours. Denies chest pain or shortness of breath. Wants to drink more fluids. Also wants the Pierson catheter removed. Vital signs are stable. General: The patient appeared well nourished and normally developed. HEENT: Head exam is unremarkable. Lungs: Breath sounds decreased. HEART: Rate and Rhythm are regular. ABDOMEN: Soft, no distention noted. EXTREMITITES: 1+ edema. Objective - Vital Signs Vital signs: Vital Signs Temp 98.2 F 02/14/20 08:00 Pulse 92 02/14/20 12:00 Resp 20 02/14/20 08:00 BP 115/71 02/14/20 08:00 Pulse Ox 95 02/14/20 08:00 Intake & Output 02/13/20 02/14/20 02/14/20 18:59 06:59 18:59 Intake Total 480 240 Output Total 700 300 Balance -220 -300 240 Weight 75.7 kg 75.7 kg Intake: Oral 480 240 Output: Urine 700 300 Uretheral (Pierson) 700 300 Other: Voiding Method Indwelling Catheter Indwelling Catheter Indwelling Catheter ABP, PAP, CO, CI - Last Documented Arterial Blood Pressure 183/72 - Labs CBC & Chem 7: 02/14/20 00:46 02/14/20 07:33 Labs: Abnormal Lab Results - Last 24 Hours (Table) 02/13/20 02/13/20 02/13/20 Range/Units 16:24 19:45 20:56 RBC (4.30-5.90) m/uL Hgb (13.0-17.5) gm/dL Hct (39.0-53.0) % Plt Count (150-450) k/uL Sodium (137-145) mmol/L Chloride (98-107) mmol/L BUN (9-20) mg/dL Creatinine (0.66-1.25) mg/dL Glucose (74-99) mg/dL POC Glucose (mg/dL) 369 H 426 H 400 H (75-99) mg/dL Calcium (8.4-10.2) mg/dL 02/13/20 02/14/20 02/14/20 Range/Units 23:05 00:46 06:12 RBC 3.25 L (4.30-5.90) m/uL Hgb 9.9 L (13.0-17.5) gm/dL Hct 30.6 L (39.0-53.0) % Plt Count 48 L (150-450) k/uL Sodium (137-145) mmol/L Chloride (98-107) mmol/L BUN (9-20) mg/dL Creatinine (0.66-1.25) mg/dL Glucose (74-99) mg/dL POC Glucose (mg/dL) 206 H 118 H (75-99) mg/dL Calcium (8.4-10.2) mg/dL 02/14/20 02/14/20 Range/Units 07:33 11:52 RBC (4.30-5.90) m/uL Hgb (13.0-17.5) gm/dL Hct (39.0-53.0) % Plt Count (150-450) k/uL Sodium 131 L (137-145) mmol/L Chloride 96 L (98-107) mmol/L BUN 66 H (9-20) mg/dL Creatinine 3.43 H (0.66-1.25) mg/dL Glucose 116 H (74-99) mg/dL POC Glucose (mg/dL) 323 H (75-99) mg/dL Calcium 7.6 L (8.4-10.2) mg/dL Microbiology - Last 24 Hours (Table) 02/10/20 20:05 Gram Stain - Preliminary Sputum Sputum Culture - Preliminary Acinetobacter pasquale/haemol 02/12/20 16:21 Gram Stain - Preliminary Pleural Fluid Body Fluid Culture - Preliminary 02/12/20 16:21 Acid Fast Bacilli Smear - Final Pleural Fluid Acid Fast Bacilli Culture - Preliminary Assessment and Plan Plan: Assessment: 1. Acute kidney injury secondary to ATN secondary to sepsis and cardiorenal syndrome. Started on hemodialysis February 09. No hydronephrosis noted on [facility] ultrasound. Nonoliguric. Urine output over 2 L last 24 hours. 2. Whiteout of the right lung. Possibly pneumonia. No fluid obtained with thoracentesis. Status post bronchoscopy with removal of mucous plugs. Underwent another thoracentesis on February 11 with 500 mL drained from the left pleural space. 3. Acute on chronic systolic CHF with ejection fraction of 25% with moderate mitral regurgitation. 4. Acute hypoxic and hypercapnic respiratory failure. Better. Now on high flow nasal cannula. 5. Hyperkalemia secondary to acute kidney injury and metabolic acidosis. Resolved. 6. Hyponatremia secondary to acute kidney injury. Hypervolemic. 7. Pleural space infection maintained on antibiotics; sputum culture positive for Acinetobacter. 8. Chronic kidney disease stage III with baseline creatinine in the range of 1.1-1.5. Etiology is most likely diabetic kidney disease. 9. Hypoglycemia maintained on D5W. Resolved. 10. Hyperphosphatemia secondary to acute kidney injury. Maintained on PhosLo. 11. Anemia of chronic kidney disease. Maintained on Epogen. Plan: Hold hemodialysis today. Continue to assess daily for need for further renal replacement therapy. Increase Lasix to 40 mg IV twice daily. Okay to discontinue Pierson catheter. Monitor serial bladder scans to make sure no urinary retention. Strict is and os. Repeat chest x-ray tomorrow.
--- NOTE | 2020-02-14 15:17 | P.PN ---
Subjective Progress Note Date: 02/14/20 Principal diagnosis: Acute on chronic hypoxemic/hypercapnic respiratory failure requiring intubation mechanical ventilatory support from February 02 and successfully extubated Novem nirmal 9. 59-year-old male patient is well-known to me and the patient is currently in the intensive care unit after being reintubated yesterday for respiratory support for an extensive left lung pneumonia. Note that the patient required intubation mechanical ventilation earlier and the patient was successfully extubated on 02/04/2020. His pulmonary workup that included a bronchoscopy and the lavage that showed Enterobacter and the same micrograms and was also cultured from the pleural fluid that was aspirated on 02/03/2020. The patient currently remains on IV antibiotics and the patient is receiving IV Zosyn. Noted the chest exit shown significant consolidation and atelectasis of the left lung in addition to a small left-sided pleural effusion. Overnight, the patient became more hypoxic and less responsive. He had to be reintubated and he was brought into the intensive care unit for further care. This morning, the patient is on propofol running at 10 mg per KG per minute. He is easily arousable while being on sedation. He is also receiving normal sed rate of 75 mL an hour. He remains on assist control mode of ventilation at the rate of 24 the tidal volume of 450 and FiO2 of 40% with a PEEP of 5. The blood gas showed pH of 7.36 with a pCO2 of 37 and pO2 95. The patient is currently on no pressors. He is maintaining his own blood pressure. No fever. No chills. No leukocytosis with a white cell count 3.9. He has developed an acute kidney injury. As mentioned earlier creatinine came up to 5.8 and currently is down to 3.98 and the patient is going to require another session of hemodialysis today. The patient will be kept in ICU for now. I'm suggesting a repeat CAT scan of the chest to reevaluate the left lung. Based on my earlier review of the CAT scan that was done earlier, the patient has volume loss and extensive consolidation with a component of pleural fluid. I think this is essentially small at this point in time. He is on a prednisone burst taper currently on 30 mg by mouth daily. He is on Lovenox 30 mg subcu for DVT prophylaxis. He is on Levemir insulin 22 units at bedtime in addition to a size care coverage. The patient is also to be started enteral feeding for nutritional support. 02/12/2020, the patient is being seen for a follow-up. The patient is currently extubated. In the [employer] supervisor hours, the patient self extubated and the patient was not reintubated. He was kept on BiPAP at a pressure of 14/7 cm of water and FiO2 of 50%. He is much more comfortable at this point in time is breathing adequately. He is communicating and is awake and alert. Chest x-ray shows significant volume loss on the left with significant opacification of the left lung, however there is some slight improvement in the upper outer left lung with some improved aeration the left upper lobe area. The patient also has a mild right lower lobe pulmonary infiltration. Based on this, I contacted interventional radiology. I requested an ultrasound-guided thoracentesis and another 500 mL of pleural fluid was aspirated from the patient's lung successfully. Postprocedure chest x-ray shows significant improvement in aeration of the left lung. Nevertheless distal constellation of the left lower lobe along with some volume loss. The patient will be kept on the BiPAP overnight. I contacted the sister and I also updated her on the condition. Meanwhile, the patient will be kept on DuoNeb nebulized treatments on the clock and the patient is also on IV Zosyn regarding the gram-negative pneumonia with a parapneumonic effusion that was attributed to be related to Enterobacter. Repeat sputum sample was also sent and it's still growing gram-negative bacillus and would awaiting final cultures and sensitivities. In addition, the patient is going to undergo hemodialysis today. IV fluids at [facility] The patient is seen today 02/13/2020 in follow-up on the selective care unit. He was transferred out of the ICU earlier this morning. He is sitting up at the bedside. Awake and alert in no acute distress. He is currently maintaining good O2 saturations in the high 90s on 7 L high flow nasal cannula. She's been afebrile. Hemodynamically stable. Initial pleural fluid cultures from 02/03/2020 were positive for alpha hemolytic streptococcus, Enterobacter gergoviae, Enterobacter cloacae. Follow-up fluid cultures from 02/12/2020 are pending. White count 5.3. Hemoglobin 9.3. Platelet count 53,000. Sodium 127. Potassium 4.3. Creatinine 2.69. Is currently on Zosyn along with bronchodilators, oral prednisone, IV diuretics. Lovenox for DVT prophylaxis. The patient is seen today 02/14/2020 in follow-up on the selective care unit. He is sitting up at the bedside. Awake and alert in no acute distress. Denies any worsening shortness of breath. He has a productive cough of grayish brown sputum. Cultures positive for Acinetobacter Pasquale/haemol which is quite a resistant organism. White count 5.7. Hemoglobin 9.9. Sodium 131. Potassium 4.3. Creatinine 3.43. He remains on DuoNeb inhalations, Symbicort, redness him. Continued on IV diuretics. Currently on antibiotics in the form of Zosyn. Chest x-ray continues to show basilar effusion and associated atelectasis. Objective - Vital Signs Vital signs: Vital Signs Temp 98.2 F 02/14/20 08:00 Pulse 80 02/14/20 12:00 Resp 20 02/14/20 12:00 BP 138/75 02/14/20 12:00 Pulse Ox 100 02/14/20 12:00 Intake & Output 02/13/20 02/14/20 02/14/20 18:59 06:59 18:59 Intake Total 480 480 Output Total 700 300 Balance -220 -300 480 Weight 75.7 kg 75.7 kg Intake: Oral 480 480 Output: Urine 700 300 Uretheral (Pierson) 700 300 Other: Voiding Method Indwelling Catheter Indwelling Catheter Indwelling Catheter ABP, PAP, CO, CI - Last Documented Arterial Blood Pressure 183/72 - Exam GENERAL EXAM: Alert, pleasant 59-year-old gentleman, appears older than stated age, on 5 L high flow nasal cannula, comfortable in no apparent distress. HEAD: Normocephalic. EYES: Normal reaction of pupils, equal size. NOSE: Clear with pink turbinates. THROAT: No erythema or exudates. NECK: No masses, no JVD. CHEST: No chest wall deformity. LUNGS: Equal air entry with basilar crackles left greater than right, diminished. CVS: S1 and S2 normal with no audible murmur, regular rhythm. ABDOMEN: No hepatosplenomegaly, normal bowel sounds, no guarding or rigidity. SPINE: No scoliosis or deformity SKIN: No rashes CENTRAL NERVOUS SYSTEM: No focal deficits, tone is normal in all 4 extremities. EXTREMITIES: There is no peripheral edema. No clubbing, no cyanosis. Peripheral pulses are intact. - Labs CBC & Chem 7: 02/14/20 00:46 02/14/20 07:33 Labs: Abnormal Lab Results - Last 24 Hours (Table) 02/13/20 02/13/20 02/13/20 Range/Units 16:24 19:45 20:56 RBC (4.30-5.90) m/uL Hgb (13.0-17.5) gm/dL Hct (39.0-53.0) % Plt Count (150-450) k/uL Sodium (137-145) mmol/L Chloride (98-107) mmol/L BUN (9-20) mg/dL Creatinine (0.66-1.25) mg/dL Glucose (74-99) mg/dL POC Glucose (mg/dL) 369 H 426 H 400 H (75-99) mg/dL Calcium (8.4-10.2) mg/dL 02/13/20 02/14/20 02/14/20 Range/Units 23:05 00:46 06:12 RBC 3.25 L (4.30-5.90) m/uL Hgb 9.9 L (13.0-17.5) gm/dL Hct 30.6 L (39.0-53.0) % Plt Count 48 L (150-450) k/uL Sodium (137-145) mmol/L Chloride (98-107) mmol/L BUN (9-20) mg/dL Creatinine (0.66-1.25) mg/dL Glucose (74-99) mg/dL POC Glucose (mg/dL) 206 H 118 H (75-99) mg/dL Calcium (8.4-10.2) mg/dL 02/14/20 02/14/20 Range/Units 07:33 11:52 RBC (4.30-5.90) m/uL Hgb (13.0-17.5) gm/dL Hct (39.0-53.0) % Plt Count (150-450) k/uL Sodium 131 L (137-145) mmol/L Chloride 96 L (98-107) mmol/L BUN 66 H (9-20) mg/dL Creatinine 3.43 H (0.66-1.25) mg/dL Glucose 116 H (74-99) mg/dL POC Glucose (mg/dL) 323 H (75-99) mg/dL Calcium 7.6 L (8.4-10.2) mg/dL Microbiology - Last 24 Hours (Table) 02/10/20 20:05 Gram Stain - Preliminary Sputum Sputum Culture - Preliminary Acinetobacter pasquale/haemol 02/12/20 16:21 Gram Stain - Preliminary Pleural Fluid Body Fluid Culture - Preliminary 02/12/20 16:21 Acid Fast Bacilli Smear - Final Pleural Fluid Acid Fast Bacilli Culture - Preliminary Assessment and Plan Assessment: 1 Acute hypoxemic/hypercapnic respiratory failure requiring intubation mechanical ventilator toward support from 02/03/2020 through 02/04/2020. The patient was extubated on 02/04/2020 with subsequent reintubation and self extubated, currently on 5 L high flow nasal cannula. Previous bronchoscopies shown no evidence of an endobronchial lesions obstructing the airway. The patient was noted to have persistent left sided pleural effusion and another thoracentesis was done and a total of 500 mL of pleural fluid aspirated from the left lung with adequate aeration of the left upper lobe area. There is still some volume loss and consolidation of left lung base. Sputum is growing Acinetoobacter Pasquale/haemol 2 Recurrent left lung pleural effusion with previous thoracentesis with animal fluid returned on 02/03/2020. Fluid positive for Enterobacter gergoviae and Streptococcus. And a follow-up sputum culture is still pending for now. 3 Gram-negative pneumonia with Enterobacter and the patient has dense consol idation left lung infiltrate status post bronchoscopy with BAL on 02/03/2020 and again on 02/06/2020. Cultures positive for Enterobacter gergoviae and the patient is currently on IV Zosyn. 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 The patient be taken off the Levemir insulin. 12 Gastric esophageal reflux disease 13 Nonischemic cardiomyopathy status post AICD placement 14 Chronic pancreatitis with pancreatic exocrine insufficiency 15 History of pancreatic pseudocyst 16 Poor overall functional performance based on the above mentioned multiple comorbidities Plan The patient was seen and evaluated by Dr. Khanna Checks x-ray, labs and microbiology reviewed Consult infectious disease Continue to titrate down the FiO2 as tolerated Continue Zosyn for now and bronchodilators Encouraged increased use of the incentive spirometer and cough and deep breathing exercises We will continue to follow I, the cosigning physician, performed a history & physical examination of the patient. Lungs sounds with bilateral scattered rhonchi more so on the left. Maintaining good O2 saturations in the 90s on 5 L high flow nasal cannula. I discussed the assessment and plan of care with my nurse practitioner, Elenita Anne. I attest to the above note as dictated by her.
[2020-02-14 17:27] LABS: Glucose,Whole Blood 488 mg/dL (75-99)
[2020-02-14 19:55] LABS: Glucose,Whole Blood 500 mg/dL (75-99)
[2020-02-14] MEDS: ATORVASTATIN 10 MG TAB PO SCH (20:16)
[2020-02-14] MEDS ORDERED: INSULIN ASPART (NovoLOG) 100 UNIT/ML VIAL SQ ONE (22:02)
[2020-02-14] MEDS: INSULIN DETEMIR (LEVEMIR) 100 UNIT/ML SYR SQ SCH (22:37)
[2020-02-14] MEDS: ALPRAZolam 0.25 MG TAB PO PRN (22:40)
[2020-02-15] MEDS: HYDROcodone/APAP 10-325MG 1 EACH TAB PO PRN ×3 (00:19→21:50)
--- NOTE | 2020-02-15 00:57 | CONS ---
CONSULTATION DATE OF SERVICE: 02/14/2020. REASON FOR CONSULTATION: Multidrug resistant Acinetobacter in the sputum. HISTORY OF PRESENT ILLNESS: The patient is a 59-year-old male initially presented to the hospital on 02/02/2020 about 12 days ago with increasing shortness of breath in this patient who did have acute on chronic hypoxic hypercapnic respiratory failure. The patient was on mechanical ventilation on admission until February 03 and the patient did have evidence of extensive left-sided pneumonia. The patient did have a sputum cultures obtained on the which was negative, repeat. The patient subsequently did have a bronchoscopy done. The bronchial washing did grow Enterobacter gergoviae. He also had a thoracocentesis with pleural fluid done on admission did show Enterobacter and alpha hemolytic Streptococcus. Patient has been treated with Zosyn. The patient did have a repeated intubation because of worsening respiratory status after which the patient himself extubated himself. The patient was transferred out of the ICU and is currently on a telemetry floor. He did have sputum obtained repeat on the which came back with multi resistant Acinetobacter baumannii that prompted this infectious disease consultation. The patient also had a repeat thoracocentesis on the and those cultures are currently pending. The patient during this admission has been afebrile. The patient mentioned that he is feeling much better. The patient denies having any headache or URI symptoms. Patient denies having any chest pain. Minimal shortness of breath on exertion. He also has a cough, though mentioned has decreased in intensity with occasional farley sputum. No hemoptysis. No pleuritic chest pain. No nausea, no vomiting. No abdominal pain or any diarrhea. REVIEW OF SYSTEMS: Positive points have been mentioned in HPI. Rest of the systems are negative. PAST MEDICAL HISTORY: COPD, CVA, TIA diabetes mellitus, gastroesophageal reflux disease, hypertension, hyperlipidemia, osteoarthritis, heart failure, and renal disease. PAST SURGICAL HISTORY: ICD and pacemaker placement. SOCIAL HISTORY: Current everyday smoker. No drinking or drug use. FAMILY HISTORY: Father history of congestive heart failure, COPD, diabetes mellitus. Mother has diabetes and hypertension. ALLERGIES: Allergies to MEPERIDINE, IBUPROFEN. MEDICATIONS: Medications include the patient is currently on [place], DuoNeb, Xanax, Lipitor, Symbicort, PhosLo, Aranesp, Colace, Lovenox, Lasix, NovoLog, Imdur, Toprol XL, Zosyn, prednisone, Lyrica. PHYSICAL EXAMINATION: Blood pressure is pulse 137/73 with a pulse of 83, temperature 97.6. He is 100% on 7 L nasal cannula. General description is a middle-aged male up in the chair in no distress. HEENT EXAMINATION: Slight pallor. No scleral icterus. Oral mucous membrane is dry. No pharyngeal erythema or thrush. NECK: Trachea is central. No thyromegaly. LUNGS: Unlabored breathing, decreased breath sounds at the bases. No wheeze or crackle. HEART: S1, S2. Regular rate and rhythm. ABDOMEN: Soft, no tenderness. No guarding or rigidity. EXTREMITIES: No edema of feet. SKIN EXAMINATION: No rash or mass palpable. NEUROLOGICAL: The patient is awake, alert, oriented x3. Mood and affect normal. LABS: BUN of 66, creatinine 3.43. Hemoglobin is 9.8, white count 5.7. Bronchoscopy done on with the culture report as mentioned above. Lopez PCR was negative. The patient did have a chest x-ray new complete opacification left hemithorax with abrupt termination of the left mainstem bronchus that was on the . Chest x-ray this morning, bilateral basilar effusions and associated atelectasis versus edema. CT of the chest done on the did show interval left mainstem bronchus mucus plugging resultant collapse of the left lung and bibasilar pneumonia. DIAGNOSTIC IMPRESSION: Patient admitted to hospital with acute respiratory failure likely secondary left-sided pneumonia with this patient did have significant severe chronic obstructive pulmonary disease. The patient did have bronch wash culture positive for Enterobacter as well as thoracocentesis culture shows Enterobacter and alpha hemolytic Streptococcus likely the infected pathogen as the patient seemed to have shown clinical improvement with Zosyn for which the patient has been treated with now with evidence of Acinetobacter baumannii in the sputum which is multidrug resistant and the patient seemed to have shown clinical improvement without getting treatment for the same likely representing colonization/contamination. PLAN: 1. No need for any specific antibiotic therapy for Acinetobacter. 2. Recommend continue treatment for the Enterobacter gergoviae in bronchial wash as well as the pleural fluid. Antibiotic may be transitioned to cefepime for better coverage and he may need a Midline for outpatient IV antibiotic therapy. 3. We will follow on his clinical condition and further adjust medication if needed. Thank you for this consultation. Will follow the patient along with you. MMODL / IJN: [id number] /
[2020-02-15 06:10] LABS: Glucose,Whole Blood 70 mg/dL (75-99)
[2020-02-15] MEDS: INSULIN ASPART (NovoLOG) 100 UNIT/ML VIAL SQ SCH ×4 (06:14→20:19)
[2020-02-15] MEDS: LIPASE 5,000/PROTEASE 17,000/AMYLASE 24,000 PO SCH (06:51)
[2020-02-15] MEDS: CALCIUM ACETATE 667 MG TAB PO SCH ×3 (06:51→17:14)
--- NOTE | 2020-02-15 07:54 | XR ---
EXAMINATION TYPE: XR chest 2V DATE OF EXAM: 02/15/2020 COMPARISON: 02/14/2020 INDICATION: Short of breath TECHNIQUE: Frontal and lateral views of the chest are obtained. FINDINGS: The heart size is normal. The pulmonary vasculature is normal. Bilateral lung infiltrates are present. Small bilateral pleural effusions are stable. Pacemaker over lies left chest. IMPRESSION: 1. Small bilateral effusions, stable
[2020-02-15] MEDS: IPRATROPIUM-ALBUTEROL 3 ML NEB INHALATION SCH ×4 (08:14→20:32)
[2020-02-15] MEDS: SYMBICORT 160-4.5 MCG INHALER INHALATION SCH ×2 (08:14→20:32)
--- NOTE | 2020-02-15 08:26 | P.PN ---
Subjective Principal diagnosis: CHF with COPD element The patient is a 59-year-old white male with known history of chronic pancreatitis diabetes CHF and COPD. The patient feels fine even though he has had multiple bronchoscopy. Chest x-r ay is improving with bilateral infiltrates The patient is on nasal cannula and doing better. He is much more alert and emotionally at his baseline. \ Objective - Vital Signs Vital signs: Vital Signs Temp 97.6 F 02/15/20 04:00 Pulse 82 02/15/20 08:14 Resp 16 02/15/20 04:00 BP 122/76 02/15/20 04:00 Pulse Ox 100 02/15/20 04:00 Intake & Output 02/14/20 02/15/20 02/15/20 18:59 06:59 18:59 Intake Total 1080 Output Total 325 575 Balance 755 -575 Weight 75.7 kg 78.2 kg Intake: Oral 1080 Output: Urine 325 575 Uretheral (Pierson) 325 Other: Voiding Method Urinal Urinal ABP, PAP, CO, CI - Last Documented Arterial Blood Pressure 183/72 - Constitutional General appearance: Present: average body habitus - EENT Eyes: Absent: abnormal pupil - Neck Neck: Absent: lymphadenopathy - Respiratory Respiratory: bilateral: diminished - Cardiovascular Heart sounds: abnormal: S1 Abnormal Heart Sounds: Absent: S3 Gallop - Gastrointestinal General gastrointestinal: Present: soft. Absent: tenderness - Integumentary Integumentary Comment(s): Still with significant lower extremity edema bilaterally - Musculoskeletal Musculoskeletal: Present: generalized weakness - Psychiatric Psychiatric: Present: A&O x's 3, appropriate affect - Labs CBC & Chem 7: 02/14/20 00:46 02/14/20 07:33 Labs: Abnormal Lab Results - Last 24 Hours (Table) 02/14/20 02/14/20 02/14/20 Range/Units 11:52 16:46 19:54 POC Glucose (mg/dL) 323 H 488 H 500 H (75-99) mg/dL 02/15/20 Range/Units 06:09 POC Glucose (mg/dL) 70 L (75-99) mg/dL Microbiology - Last 24 Hours (Table) 02/12/20 16:21 Anaerobic Culture - Preliminary Pleural Fluid 02/12/20 16:21 Gram Stain - Preliminary Pleural Fluid Body Fluid Culture - Preliminary 02/10/20 20:05 Gram Stain - Preliminary Sputum Sputum Culture - Preliminary Acinetobacter pasquale/haemol Assessment and Plan (1) Congestive heart failure Current Visit: Yes Status: Acute Code(s): I50.9 - HEART FAILURE, UNSPECIFIED SNOMED Code(s): 20603832 (2) Hyperglycemia Current Visit: Yes Status: Acute Code(s): R73.9 - HYPERGLYCEMIA, UNSPECIFIED SNOMED Code(s): 78040405 (3) Hyponatremia Current Visit: Yes Status: Acute Code(s): E87.1 - HYPO-OSMOLALITY AND HYPONATREMIA SNOMED Code(s): 06894560 (4) Respiratory failure Current Visit: No Status: Acute Code(s): J96.90 - RESPIRATORY FAILURE, UNSP, UNSP W HYPOXIA OR HYPERCAPNIA SNOMED Code(s): 959095247 Plan: Continue supportive care Check CBC and CMP in the a.m. Prognosis is guarded secondary to his multiple comorbidities. Titrate insulin for blood sugar control. Appreciate multiple consultants input. Bronchial wash with element of multi-bacterial culture. Dr. Morris's group will covering for the weekend. Time with Patient: Greater than 30
[2020-02-15] MEDS: predniSONE 10 MG TAB PO SCH (08:45)
[2020-02-15] MEDS: FUROSEMIDE 10 MG/ML 4 ML VIAL IV SCH ×2 (08:45→20:06)
[2020-02-15] MEDS: METOPROLOL SUCCINATE (ER) 25 MG TAB.ER.24H PO SCH (08:45)
[2020-02-15] MEDS: ISOSORBIDE MONONITRATE ER 30 MG TAB.ER.24H PO SCH (08:45)
[2020-02-15] MEDS: PREGABALIN 100 MG CAP PO SCH ×2 (08:45→20:06)
[2020-02-15] MEDS: ENOXAPARIN 30 MG/0.3 ML SYRINGE SQ SCH (08:45)
[2020-02-15 09:20] LABS: Basophils % (A) 0 %; Eosinophils # (A) 0.1 k/uL (0-0.7); Eosinophils % (A) 2 %; HCT 29.3 % (39.0-53.0); HGB 9.5 gm/dL (13.0-17.5); Lymphocytes # (A) 1.1 k/uL (1.0-4.8); Lymphocytes % (A) 17 %; MCH 29.8 pg (25.0-35.0); MCHC 32.4 g/dL (31.0-37.0); Mean Platelet Volume 11.3; Monocytes # (A) 0.6 k/uL (0-1.0); Monocytes % (A) 9 %; Neutrophils # (A) 4.4 k/uL (1.3-7.7); Neutrophils % (A) 70 %; RBC 3.19 m/uL (4.30-5.90); RDW 14.6 % (11.5-15.5); WBC 6.3 k/uL (3.8-10.6)
[2020-02-15 09:23] LABS: Platelet Count 55 k/uL (150-450)
[2020-02-15 10:02] LABS: Albumin 3.5 g/dL (3.5-5.0); C Reactive Protein 22.1 mg/L (<10.0); Calcium 7.7 mg/dL (8.4-10.2); Potassium 5.1 mmol/L (3.5-5.1); Total Bilirubin 0.5 mg/dL (0.2-1.3); Total Protein 5.5 g/dL (6.3-8.2)
[2020-02-15 10:56] LABS: Glucose,Whole Blood 137 mg/dL (75-99)
--- NOTE | 2020-02-15 13:25 | P.PN ---
Subjective Patient is seen in follow-up for acute kidney injury. Had third treatment of hemodialysis on February 11 with 1.5 L ultrafiltration. Oral intake is good. Blood sugars stable. Denies chest pain or shortness of breath. Wants to drink more fluids. Pierson catheter was removed yesterday. He voided earlier this morning. Bladder scan will be done. Renal function worsening. Vital signs are stable. General: The patient appeared well nourished and normally developed. HEENT: Head exam is unremarkable. Lungs: Breath sounds decreased. HEART: Rate and Rhythm are regular. ABDOMEN: Soft, no distention noted. EXTREMITITES: 1-2+ edema. Objective - Vital Signs Vital signs: Vital Signs Temp 97.9 F 02/15/20 08:00 Pulse 88 02/15/20 12:23 Resp 22 02/15/20 12:00 BP 111/61 02/15/20 12:00 Pulse Ox 98 02/15/20 12:00 Intake & Output 02/14/20 02/15/20 02/15/20 18:59 06:59 18:59 Intake Total 1080 240 Output Total 325 575 Balance 755 -575 240 Weight 75.7 kg 78.2 kg Intake: Oral 1080 240 Output: Urine 325 575 Uretheral (Pierson) 325 Other: Voiding Method Urinal Urinal Urinal ABP, PAP, CO, CI - Last Documented Arterial Blood Pressure 183/72 - Labs CBC & Chem 7: 02/15/20 08:51 02/15/20 08:51 Labs: Abnormal Lab Results - Last 24 Hours (Table) 02/14/20 02/14/20 02/15/20 Range/Units 16:46 19:54 06:09 RBC (4.30-5.90) m/uL Hgb (13.0-17.5) gm/dL Hct (39.0-53.0) % Plt Count (150-450) k/uL Sodium (137-145) mmol/L Chloride (98-107) mmol/L BUN (9-20) mg/dL Creatinine (0.66-1.25) mg/dL POC Glucose (mg/dL) 488 H 500 H 70 L (75-99) mg/dL Calcium (8.4-10.2) mg/dL C-Reactive Protein (<10.0) mg/L Total Protein (6.3-8.2) g/dL 02/15/20 02/15/20 02/15/20 Range/Units 08:51 08:51 10:54 RBC 3.19 L (4.30-5.90) m/uL Hgb 9.5 L (13.0-17.5) gm/dL Hct 29.3 L (39.0-53.0) % Plt Count 55 L (150-450) k/uL Sodium 132 L (137-145) mmol/L Chloride 94 L (98-107) mmol/L BUN 79 H (9-20) mg/dL Creatinine 4.33 H (0.66-1.25) mg/dL POC Glucose (mg/dL) 137 H (75-99) mg/dL Calcium 7.7 L (8.4-10.2) mg/dL C-Reactive Protein 22.1 H (<10.0) mg/L Total Protein 5.5 L (6.3-8.2) g/dL Microbiology - Last 24 Hours (Table) 02/10/20 20:05 Gram Stain - Final Sputum Sputum Culture - Final Acinetobacter pasquale/haemol 02/12/20 16:21 Anaerobic Culture - Preliminary Pleural Fluid 02/12/20 16:21 Gram Stain - Preliminary Pleural Fluid Body Fluid Culture - Preliminary Assessment and Plan Plan: Assessment: 1. Acute kidney injury secondary to ATN secondary to sepsis and cardiorenal syndrome. Started on hemodialysis February 09 - last treatment on the . No hydronephrosis noted on kidney ultrasound. Nonoliguric. Creatinine up to 4.33 today. 2. Whiteout of the right lung. Possibly pneumonia. No fluid obtained with thoracentesis. Status post bronchoscopy with removal of mucous plugs. Und erwent another thoracentesis on February 11 with 500 mL drained from the left pleural space. 3. Acute on chronic systolic CHF with ejection fraction of 25% with moderate mitral regurgitation. 4. Acute hypoxic and hypercapnic respiratory failure. Better. Now on high flow nasal cannula. 5. Hyperkalemia secondary to acute kidney injury and metabolic acidosis. Resolved. 6. Hyponatremia secondary to acute kidney injury. Hypervolemic. 7. Pleural space infection maintained on antibiotics; sputum culture positive for Acinetobacter. 8. Chronic kidney disease stage III with baseline creatinine in the range of 1.1-1.5. Etiology is most likely diabetic kidney disease. 9. Hypoglycemia maintained on D5W. Resolved. 10. Hyperphosphatemia secondary to acute kidney injury. Maintained on PhosLo. 11. Anemia of chronic kidney disease. Maintained on Epogen. Plan: Hemodialysis today. Check bladder scans to make sure no urinary retention. Maintain IV Lasix. Continue to assess for need for renal replacement therapy on daily basis.
--- NOTE | 2020-02-15 15:13 | P.PN ---
Subjective Progress Note Date: 02/15/20 Principal diagnosis: Acute on chronic hypoxemic/hypercapnic respiratory failure requiring intubation mechanical ventilatory support from February 02 and successfully extubated Novem nirmal 9. 59-year-old male patient is well-known to me and the patient is currently in the intensive care unit after being reintubated yesterday for respiratory support for an extensive left lung pneumonia. Note that the patient required intubation mechanical ventilation earlier and the patient was successfully extubated on 02/04/2020. His pulmonary workup that included a bronchoscopy and the lavage that showed Enterobacter and the same micrograms and was also cultured from the pleural fluid that was aspirated on 02/03/2020. The patient currently remains on IV antibiotics and the patient is receiving IV Zosyn. Noted the chest exit shown significant consolidation and atelectasis of the left lung in addition to a small left-sided pleural effusion. Overnight, the patient became more hypoxic and less responsive. He had to be reintubated and he was brought into the intensive care unit for further care. This morning, the patient is on propofol running at 10 mg per KG per minute. He is easily arousable while being on sedation. He is also receiving normal sed rate of 75 mL an hour. He remains on assist control mode of ventilation at the rate of 24 the tidal volume of 450 and FiO2 of 40% with a PEEP of 5. The blood gas showed pH of 7.36 with a pCO2 of 37 and pO2 95. The patient is currently on no pressors. He is maintaining his own blood pressure. No fever. No chills. No leukocytosis with a white cell count 3.9. He has developed an acute kidney injury. As mentioned earlier creatinine came up to 5.8 and currently is down to 3.98 and the patient is going to require another session of hemodialysis today. The patient will be kept in ICU for now. I'm suggesting a repeat CAT scan of the chest to reevaluate the left lung. Based on my earlier review of the CAT scan that was done earlier, the patient has volume loss and extensive consolidation with a component of pleural fluid. I think this is essentially small at this point in time. He is on a prednisone burst taper currently on 30 mg by mouth daily. He is on Lovenox 30 mg subcu for DVT prophylaxis. He is on Levemir insulin 22 units at bedtime in addition to a size care coverage. The patient is also to be started enteral feeding for nutritional support. 02/12/2020, the patient is being seen for a follow-up. The patient is currently extubated. In the tipple greaser hours, the patient self extubated and the patient was not reintubated. He was kept on BiPAP at a pressure of 14/7 cm of water and FiO2 of 50%. He is much more comfortable at this point in time is breathing adequately. He is communicating and is awake and alert. Chest x-ray shows significant volume loss on the left with significant opacification of the left lung, however there is some slight improvement in the upper outer left lung with some improved aeration the left upper lobe area. The patient also has a mild right lower lobe pulmonary infiltration. Based on this, I contacted interventional radiology. I requested an ultrasound-guided thoracentesis and another 500 mL of pleural fluid was aspirated from the patient's lung successfully. Postprocedure chest x-ray shows significant improvement in aeration of the left lung. Nevertheless distal constellation of the left lower lobe along with some volume loss. The patient will be kept on the BiPAP overnight. I contacted the sister and I also updated her on the condition. Meanwhile, the patient will be kept on DuoNeb nebulized treatments on the clock and the patient is also on IV Zosyn regarding the gram-negative pneumonia with a parapneumonic effusion that was attributed to be related to Enterobacter. Repeat sputum sample was also sent and it's still growing gram-negative bacillus and would awaiting final cultures and sensitivities. In addition, the patient is going to undergo hemodialysis today. IV fluids at [facility] The patient is seen today 02/13/2020 in follow-up on the selective care unit. He was transferred out of the ICU earlier this morning. He is sitting up at the bedside. Awake and alert in no acute distress. He is currently maintaining good O2 saturations in the high 90s on 7 L high flow nasal cannula. She's been afebrile. Hemodynamically stable. Initial pleural fluid cultures from 02/03/2020 were positive for alpha hemolytic streptococcus, Enterobacter gergoviae, Enterobacter cloacae. Follow-up fluid cultures from 02/12/2020 are pending. White count 5.3. Hemoglobin 9.3. Platelet count 53,000. Sodium 127. Potassium 4.3. Creatinine 2.69. Is currently on Zosyn along with bronchodilators, oral prednisone, IV diuretics. Lovenox for DVT prophylaxis. The patient is seen today 02/14/2020 in follow-up on the selective care unit. He is sitting up at the bedside. Awake and alert in no acute distress. Denies any worsening shortness of breath. He has a productive cough of grayish brown sputum. Cultures positive for Acinetobacter Pasquale/haemol which is quite a resistant organism. White count 5.7. Hemoglobin 9.9. Sodium 131. Potassium 4.3. Creatinine 3.43. He remains on DuoNeb inhalations, Symbicort, redness him. Continued on IV diuretics. Currently on antibiotics in the form of Zosyn. Chest x-ray continues to show basilar effusion and associated atelectasis. The patient is seen today 02/15/2020 in follow-up on selective care unit. He is currently up ambulating with physical therapy. He is doing quite well. No worsening shortness of breath, cough or congestion. 18 O2 saturations in the high 90s on 3 L/m per nasal cannula. Cultures positive for Acinetobacter Pasquale/haemol which is quite a resistant organism. Currently on Zosyn. White count 6.3. Hemoglobin 9.5. Sodium 132. Potassium 5.1. Creatinine 4.33. He remains on fluid restrictions. Chest x-ray reveals stable bilateral effusions. He remains on bronchodilators, prednisone. Remains on IV diuretics. Objective - Vital Signs Vital signs: Vital Signs Temp 97.9 F 02/15/20 08:00 Pulse 88 02/15/20 12:23 Resp 22 02/15/20 12:00 BP 111/61 02/15/20 12:00 Pulse Ox 98 02/15/20 12:00 Intake & Output 02/14/20 02/15/20 02/15/20 18:59 06:59 18:59 Intake Total 1080 240 Output Total 325 575 Balance 755 -575 240 Weight 75.7 kg 78.2 kg Intake: Oral 1080 240 Output: Urine 325 575 Uretheral (Pierson) 325 Other: Voiding Method Urinal Urinal Urinal ABP, PAP, CO, CI - Last Documented Arterial Blood Pressure 183/72 - Exam GENERAL EXAM: Alert, pleasant 59-year-old gentleman, appears older than stated age, on 3 L high flow nasal cannula, comfortable in no apparent distress. HEAD: Normocephalic. EYES: Normal reaction of pupils, equal size. NOSE: Clear with pink turbinates. THROAT: No erythema or exudates. NECK: No masses, no JVD. CHEST: No chest wall deformity. LUNGS: Equal air entry with basilar crackles, diminished. CVS: S1 and S2 normal with no audible murmur, regular rhythm. ABDOMEN: No hepatosplenomegaly, normal bowel sounds, no guarding or rigidity. SPINE: No scoliosis or deformity SKIN: No rashes CENTRAL NERVOUS SYSTEM: No focal deficits, tone is normal in all 4 extremities. EXTREMITIES: There is no peripheral edema. No clubbing, no cyanosis. Peripheral pulses are intact. - Labs CBC & Chem 7: 02/15/20 08:51 02/15/20 08:51 Labs: Abnormal Lab Results - Last 24 Hours (Table) 02/14/20 02/14/20 02/15/20 Range/Units 16:46 19:54 06:09 RBC (4.30-5.90) m/uL Hgb (13.0-17.5) gm/dL Hct (39.0-53.0) % Plt Count (150-450) k/uL Sodium (137-145) mmol/L Chloride (98-107) mmol/L BUN (9-20) mg/dL Creatinine (0.66-1.25) mg/dL POC Glucose (mg/dL) 488 H 500 H 70 L (75-99) mg/dL Calcium (8.4-10.2) mg/dL C-Reactive Protein (<10.0) mg/L Total Protein (6.3-8.2) g/dL 02/15/20 02/15/20 02/15/20 Range/Units 08:51 08:51 10:54 RBC 3.19 L (4.30-5.90) m/uL Hgb 9.5 L (13.0-17.5) gm/dL Hct 29.3 L (39.0-53.0) % Plt Count 55 L (150-450) k/uL Sodium 132 L (137-145) mmol/L Chloride 94 L (98-107) mmol/L BUN 79 H (9-20) mg/dL Creatinine 4.33 H (0.66-1.25) mg/dL POC Glucose (mg/dL) 137 H (75-99) mg/dL Calcium 7.7 L (8.4-10.2) mg/dL C-Reactive Protein 22.1 H (<10.0) mg/L Total Protein 5.5 L (6.3-8.2) g/dL Microbiology - Last 24 Hours (Table) 02/10/20 20:05 Gram Stain - Final Sputum Sputum Culture - Final Acinetobacter pasquale/haemol 02/12/20 16:21 Anaerobic Culture - Preliminary Pleural Fluid 02/12/20 16:21 Gram Stain - Preliminary Pleural Fluid Body Fluid Culture - Preliminary Assessment and Plan Assessment: 1 Acute hypoxemic/hypercapnic respiratory failure requiring intubation mechanical ventilator toward support from 02/03/2020 through 02/04/2020. The patient was extubated on 02/04/2020 with subsequent reintubation and self extubated, currently on 5 L high flow nasal cannula. Previous bronchoscopies shown no evidence of an endobronchial lesions obstructing the airway. The patient was noted to have persistent left sided pleural effusion and another thoracentesis was done and a total of 500 mL of pleural fluid aspirated from the left lung with adequate aeration of the left upper lobe area. There is still stas e volume loss and consolidation of left lung base. Sputum is growing Acinetoobacter Pasquale/haemol 2 Recurrent left lung pleural effusion with previous thoracentesis with animal fluid returned on 02/03/2020. Fluid positive for Enterobacter gergoviae and Streptococcus. And a follow-up sputum culture is still pending for now. 3 Gram-negative pneumonia with Enterobacter and the patient has dense consolidation left lung infiltrate status post bronchoscopy with BAL on 02/03/2020 and again on 02/06/2020. Cultures positive for Enterobacter gergoviae and the patient is currently on IV Zosyn. 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 The patient be taken off the Levemir insulin. 12 Gastric esophageal reflux disease 13 Nonischemic cardiomyopathy status post AICD placement 14 Chronic pancreatitis with pancreatic exocrine insufficiency 15 History of pancreatic pseudocyst 16 Poor overall functional performance based on the above mentioned multiple comorbidities Plan The patient was seen and evaluated by Dr. Artinian Checks x-ray, labs reviewed Continue to titrate down the FiO2 as tolerated Continue Zosyn for now and bronchodilators Encouraged increased use of the incentive spirometer and cough and deep breathing exercises Increase activity as tolerated We will continue to follow I, the cosigning physician, performed a history & physical examination of the patient. Lungs sounds with basilar crackles. Maintaining good O2 saturations in the 90s on 3 L high flow nasal cannula. I discussed the assessment and plan of care with my nurse practitioner, Elenita Anne. I attest to the above note as dictated by her.
[2020-02-15] MEDS: PIPERACILLIN-TAZOBACTAM 3.375 GM in SODIUM CHLORIDE 0.9% 100 ML IVPB SCH (15:18)
[2020-02-15] MEDS: CHLORHEXIDINE GLUCONATE 15 ML CUP MUCOUS MEM SCH (15:28)
[2020-02-15] MEDS: DEXTROSE 5% IN WATER 1,000 ML IV SCH (15:31)
[2020-02-15] MEDS: SODIUM CHLORIDE 0.9% 1,000 ML IV SCH (17:15)
[2020-02-15 17:26] LABS: Glucose,Whole Blood 239 mg/dL (75-99)
[2020-02-15 20:01] LABS: Glucose,Whole Blood 402 mg/dL (75-99)
[2020-02-15] MEDS: ATORVASTATIN 10 MG TAB PO SCH (20:06)
[2020-02-15] MEDS: INSULIN DETEMIR (LEVEMIR) 100 UNIT/ML SYR SQ SCH (21:50)
--- NOTE | 2020-02-15 23:23 | PN ---
PROGRESS NOTE DATE OF SERVICE: 02/15/2020 REASON FOR FOLLOWUP: 1. Enterobacter pneumonia and empyema. 2. Positive sputum with Acinetobacter, likely colonization/contaminant. INTERVAL HISTORY: The patient is currently afebrile. The patient mentioned he is breathing comfortably. The patient denies having chest pain. He did have some cough with occasional sputum. No nausea, no vomiting. No abdominal pain or diarrhea. PHYSICAL EXAMINATION: Blood pressure 137/82 with a pulse of 88, temperature 97.6. He is 93% on 3 L nasal cannula. General description is a middle-aged male up in the bed in no distress. RESPIRATORY SYSTEM: Unlabored breathing with decreased breath sounds at the base. No wheeze. HEART: S1, S2. Regular rate and rhythm. ABDOMEN: Soft. No tenderness. LABS: Hemoglobin is 11.5, white count 6.3, BUN of 79, creatinine 4.33. DIAGNOSTIC IMPRESSION AND PLAN: 1. Patient with Enterobacter pneumonia with evidence of Enterobacter has empyema, status post thoracocentesis. Covered with Zosyn. Transition to cefepime on discharge. 2. Positive sputum with Acinetobacter, likely colonization as the patient clinically improved without getting treatment for the same. No need for any specific therapy for it. MMODL / IJN: [id number] /
[2020-02-16] MEDS: PIPERACILLIN-TAZOBACTAM 3.375 GM in SODIUM CHLORIDE 0.9% 100 ML IVPB SCH ×3 (03:03→20:50)
[2020-02-16] MEDS: HYDROcodone/APAP 10-325MG 1 EACH TAB PO PRN (04:59)
[2020-02-16 06:08] LABS: Glucose,Whole Blood 84 mg/dL (75-99)
[2020-02-16] MEDS: INSULIN ASPART (NovoLOG) 100 UNIT/ML VIAL SQ SCH ×4 (06:40→20:50)
[2020-02-16] MEDS: LIPASE 5,000/PROTEASE 17,000/AMYLASE 24,000 PO SCH (06:46)
[2020-02-16] MEDS: CALCIUM ACETATE 667 MG TAB PO SCH ×3 (06:47→16:41)
[2020-02-16 08:32] LABS: HCT 29.7 % (39.0-53.0); HGB 9.5 gm/dL (13.0-17.5); Hypochromasia Slight; MCH 30.1 pg (25.0-35.0); MCHC 32.2 g/dL (31.0-37.0); MCV 93.5 fL (80.0-100.0); RBC 3.17 m/uL (4.30-5.90); RDW 14.3 % (11.5-15.5); WBC 7.3 k/uL (3.8-10.6)
[2020-02-16] MEDS: IPRATROPIUM-ALBUTEROL 3 ML NEB INHALATION SCH ×4 (08:35→20:17)
[2020-02-16] MEDS: SYMBICORT 160-4.5 MCG INHALER INHALATION SCH ×2 (08:36→20:17)
[2020-02-16 08:38] LABS: Platelet Count 50 k/uL (150-450)
[2020-02-16 08:43] LABS: Potassium 4.3 mmol/L (3.5-5.1)
[2020-02-16 08:44] LABS: Albumin 3.5 g/dL (3.5-5.0); Calcium 7.8 mg/dL (8.4-10.2); Total Bilirubin 0.5 mg/dL (0.2-1.3); Total Protein 5.6 g/dL (6.3-8.2)
[2020-02-16] MEDS: METOPROLOL SUCCINATE (ER) 25 MG TAB.ER.24H PO SCH (08:57)
[2020-02-16] MEDS: predniSONE 10 MG TAB PO SCH (08:57)
[2020-02-16] MEDS: FUROSEMIDE 10 MG/ML 4 ML VIAL IV SCH ×2 (08:57→20:51)
[2020-02-16] MEDS: ISOSORBIDE MONONITRATE ER 30 MG TAB.ER.24H PO SCH (08:57)
[2020-02-16] MEDS: ENOXAPARIN 30 MG/0.3 ML SYRINGE SQ SCH (08:57)
[2020-02-16] MEDS: PREGABALIN 100 MG CAP PO SCH ×2 (08:57→20:51)
--- NOTE | 2020-02-16 10:31 | P.PN ---
Subjective Patient is hypoxic and hypercapnic respiratory failure was intubated on admission patient the was extubated on 02/04/2020. Patient is presently on 3 L of oxygen. Patient is dialysis dependent. Patient is being treated heart failure as well as gram-negative pneumonia, sputum cultures are positive for Enterobacter, patient also has positive sputum culture with this and Acinetobacter which is current medication patient is presently on Zosyn and infectious disease is following the patient. Patient is more dialysis dependent. Patient does have urine output retaining some urine consider Pierson catheter patient has significant scrotal swelling patient is also on Lasix at this time nephrology is following the patient along with pulmonary and i nfectious disease. Constitutional: Denied any fatigue denied any fever. Cardio vascular: denied any chest pain, palpitations Gastrointestinal denied any nausea vomiting Pulmonary: Still short of breath All inpatient medications were reviewed and appropriate changes in these medications as dictated in the interval history and assessment and plan. Objective - Vital Signs Vital signs: Vital Signs Temp 97.7 F 02/16/20 08:53 Pulse 72 02/16/20 08:53 Resp 18 02/16/20 08:53 BP 90/53 02/16/20 08:53 Pulse Ox 96 02/16/20 08:53 Intake & Output 02/15/20 02/16/20 02/16/20 18:59 06:59 18:59 Intake Total 1080 Output Total 800 150 Balance 280 -150 Weight 77.4 kg Intake: Oral 1080 Output: Urine 800 150 Post Void Residual 0 Other: Voiding Method Urinal Urinal Urinal # Voids 1 1 ABP, PAP, CO, CI - Last Documented Arterial Blood Pressure 183/72 - Exam PHYSICAL EXAMINATION: GENERAL: The patient is alert and oriented x3, not in any acute distress. Well developed, well nourished. HEENT: Pupils are round and equally reacting to light. EOMI. No scleral icterus. No conjunctival pallor. Normocephalic, atraumatic. No pharyngeal erythema. No thyromegaly. CARDIOVASCULAR: S1 and S2 present. No murmurs, rubs, or gallops. PULMONARY: Diffuse bilateral rhonchi ABDOMEN: Soft, nontender, nondistended, normoactive bowel sounds. No palpable organomegaly. MUSCULOSKELETAL: No joint swelling or deformity. EXTREMITIES: No cyanosis, clubbing, patient does have significant scrotal edema. NEUROLOGICAL: Gross neurological examination did not reveal any focal deficits. SKIN: No rashes. - Labs CBC & Chem 7: 02/16/20 08:08 02/16/20 08:08 Labs: Abnormal Lab Results - Last 24 Hours (Table) 02/15/20 02/15/20 02/15/20 Range/Units 08:51 10:54 16:53 RBC (4.30-5.90) m/uL Hgb (13.0-17.5) gm/dL Hct (39.0-53.0) % Plt Count (150-450) k/uL Sodium (137-145) mmol/L BUN (9-20) mg/dL Creatinine (0.66-1.25) mg/dL Glucose (74-99) mg/dL POC Glucose (mg/dL) 137 H 239 H (75-99) mg/dL Calcium (8.4-10.2) mg/dL Total Protein (6.3-8.2) g/dL Procalcitonin 0.75 H (0.02-0.09) ng/mL 02/15/20 02/16/20 02/16/20 Range/Units 19:52 08:08 08:08 RBC 3.17 L (4.30-5.90) m/uL Hgb 9.5 L (13.0-17.5) gm/dL Hct 29.7 L (39.0-53.0) % Plt Count 50 L (150-450) k/uL Sodium 135 L (137-145) mmol/L BUN 61 H (9-20) mg/dL Creatinine 3.51 H (0.66-1.25) mg/dL Glucose 120 H (74-99) mg/dL POC Glucose (mg/dL) 402 H (75-99) mg/dL Calcium 7.8 L (8.4-10.2) mg/dL Total Protein 5.6 L (6.3-8.2) g/dL Procalcitonin (0.02-0.09) ng/mL Microbiology - Last 24 Hours (Table) 02/12/20 16:21 Gram Stain - Preliminary Pleural Fluid Body Fluid Culture - Preliminary 02/10/20 20:05 Gram Stain - Final Sputum Sputum Culture - Final Acinetobacter pasquale/haemol Assessment and Plan Plan: -Acute hypoxic and hypercapnic respiratory failure: Patient is status post extubation patient was extubated on 02/14/2020.. Patient is presently on nasal cannula oxygen. -Congestive heart failure chronic systolic dysfunction with acute exacerbation EF of around 25-30% -And stays renal disease on hemodialysis -Bilateral recurrent pleural effusion -Gram-negative pneumonia with Enterobacter patient is presently on Zosyn -Acute renal failure secondary to acute tubular necrosis presently on hemodialysis -Hypertension -Hyperlipidemia -Type 2 diabetes mellitus with diabetic neuropathy -Gastroesophageal reflux disease -Pancreatic insufficiency from his chronic pancreatitis -Pancreatic pseudocyst -Generalized deconditioning for from prolonged hospitalization physical therapy and occupational therapy will evaluate the patient.
[2020-02-16 12:44] LABS: Glucose,Whole Blood 189 mg/dL (75-99)
--- NOTE | 2020-02-16 14:38 | P.PN ---
Subjective Progress Note Date: 02/16/20 Principal diagnosis: Acute on chronic hypoxemic/hypercapnic respiratory failure requiring intubation mechanical ventilatory support from February 02 and successfully extubated Novem nirmal 9. 59-year-old male patient is well-known to me and the patient is currently in the intensive care unit after being reintubated yesterday for respiratory support for an extensive left lung pneumonia. Note that the patient required intubation mechanical ventilation earlier and the patient was successfully extubated on 02/04/2020. His pulmonary workup that included a bronchoscopy and the lavage that showed Enterobacter and the same micrograms and was also cultured from the pleural fluid that was aspirated on 02/03/2020. The patient currently remains on IV antibiotics and the patient is receiving IV Zosyn. Noted the chest exit shown significant consolidation and atelectasis of the left lung in addition to a small left-sided pleural effusion. Overnight, the patient became more hypoxic and less responsive. He had to be reintubated and he was brought into the intensive care unit for further care. This morning, the patient is on propofol running at 10 mg per KG per minute. He is easily arousable while being on sedation. He is also receiving normal sed rate of 75 mL an hour. He remains on assist control mode of ventilation at the rate of 24 the tidal volume of 450 and FiO2 of 40% with a PEEP of 5. The blood gas showed pH of 7.36 with a pCO2 of 37 and pO2 95. The patient is currently on no pressors. He is maintaining his own blood pressure. No fever. No chills. No leukocytosis with a white cell count 3.9. He has developed an acute kidney injury. As mentioned earlier creatinine came up to 5.8 and currently is down to 3.98 and the patient is going to require another session of hemodialysis today. The patient will be kept in ICU for now. I'm suggesting a repeat CAT scan of the chest to reevaluate the left lung. Based on my earlier review of the CAT scan that was done earlier, the patient has volume loss and extensive consolidation with a component of pleural fluid. I think this is essentially small at this point in time. He is on a prednisone burst taper currently on 30 mg by mouth daily. He is on Lovenox 30 mg subcu for DVT prophylaxis. He is on Levemir insulin 22 units at bedtime in addition to a size care coverage. The patient is also to be started enteral feeding for nutritional support. 02/12/2020, the patient is being seen for a follow-up. The patient is currently extubated. In the head housekeeper hours, the patient self extubated and the patient was not reintubated. He was kept on BiPAP at a pressure of 14/7 cm of water and FiO2 of 50%. He is much more comfortable at this point in time is breathing adequately. He is communicating and is awake and alert. Chest x-ray shows significant volume loss on the left with significant opacification of the left lung, however there is some slight improvement in the upper outer left lung with some improved aeration the left upper lobe area. The patient also has a mild right lower lobe pulmonary infiltration. Based on this, I contacted interventional radiology. I requested an ultrasound-guided thoracentesis and another 500 mL of pleural fluid was aspirated from the patient's lung successfully. Postprocedure chest x-ray shows significant improvement in aeration of the left lung. Nevertheless distal constellation of the left lower lobe along with some volume loss. The patient will be kept on the BiPAP overnight. I contacted the sister and I also updated her on the condition. Meanwhile, the patient will be kept on DuoNeb nebulized treatments on the clock and the patient is also on IV Zosyn regarding the gram-negative pneumonia with a parapneumonic effusion that was attributed to be related to Enterobacter. Repeat sputum sample was also sent and it's still growing gram-negative bacillus and would awaiting final cultures and sensitivities. In addition, the patient is going to undergo hemodialysis today. IV fluids at [facility] The patient is seen today 02/13/2020 in follow-up on the selective care unit. He was transferred out of the ICU earlier this morning. He is sitting up at the bedside. Awake and alert in no acute distress. He is currently maintaining good O2 saturations in the high 90s on 7 L high flow nasal cannula. She's been afebrile. Hemodynamically stable. Initial pleural fluid cultures from 02/03/2020 were positive for alpha hemolytic streptococcus, Enterobacter gergoviae, Enterobacter cloacae. Follow-up fluid cultures from 02/12/2020 are pending. White count 5.3. Hemoglobin 9.3. Platelet count 53,000. Sodium 127. Potassium 4.3. Creatinine 2.69. Is currently on Zosyn along with bronchodilators, oral prednisone, IV diuretics. Lovenox for DVT prophylaxis. The patient is seen today 02/14/2020 in follow-up on the selective care unit. He is sitting up at the bedside. Awake and alert in no acute distress. Denies any worsening shortness of breath. He has a productive cough of grayish brown sputum. Cultures positive for Acinetobacter Ivy/haemol which is quite a resistant organism. White count 5.7. Hemoglobin 9.9. Sodium 131. Potassium 4.3. Creatinine 3.43. He remains on DuoNeb inhalations, Symbicort, redness him. Continued on IV diuretics. Currently on antibiotics in the form of Zosyn. Chest x-ray continues to show basilar effusion and associated atelectasis. The patient is seen today 02/15/2020 in follow-up on selective care unit. He is currently up ambulating with physical therapy. He is doing quite well. No worsening shortness of breath, cough or congestion. 18 O2 saturations in the high 90s on 3 L/m per nasal cannula. Cultures positive for Acinetobacter Ivy/haemol which is quite a resistant organism. Currently on Zosyn. White count 6.3. Hemoglobin 9.5. Sodium 132. Potassium 5.1. Creatinine 4.33. He remains on fluid restrictions. Chest x-ray reveals stable bilateral effusions. He remains on bronchodilators, prednisone. Remains on IV diuretics. The patient is seen today February 16 2020 follow-up on the selective care unit. He is currently resting fairly comfortably in bed. He is being concern today is continued significant edema the scrotum. He did receive hemodialysis yesterday. Hemodialysis is planned for today. His creatinine is 3.51. He is less short of breath. He started 2 L/m per nasal cannula to maintain O2 saturation in low 90s. White count 7.3. Hemoglobin 9.5. Platelet count 50,000. Sodium 135. Potassium 4.3. Creatinine 2.51. He remains on Lasix 40 mg IV twice a day. Antibiotics in the form of Zosyn for his Acinetobacter Ivy/haemol sputum. Objective - Vital Signs Vital signs: Vital Signs Temp 97.8 F 02/16/20 11:53 Pulse 94 02/16/20 11:53 Resp 20 02/16/20 11:53 BP 102/61 02/16/20 11:53 Pulse Ox 94 L 02/16/20 11:53 Intake & Output 02/15/20 02/16/20 02/16/20 18:59 06:59 18:59 Intake Total 1080 800 Output Total 800 150 Balance 280 -150 800 Weight 77.4 kg Intake: Oral 1080 800 Output: Urine 800 150 Post Void Residual 0 Other: Voiding Method Urinal Urinal Urinal # Voids 1 1 ABP, PAP, CO, CI - Last Documented Arterial Blood Pressure 183/72 - Exam GENERAL EXAM: Alert, pleasant 59-year-old gentleman, appears older than stated age, on 2 L high flow nasal cannula, comfortable in no apparent distress. HEAD: Normocephalic. EYES: Normal reaction of pupils, equal size. NOSE: Clear with pink turbinates. THROAT: No erythema or exudates. NECK: No masses, no JVD. CHEST: No chest wall deformity. LUNGS: Equal air entry with bibasilar crackles, diminished. CVS: S1 and S2 normal with no audible murmur, regular rhythm. ABDOMEN: No hepatosplenomegaly, normal bowel sounds, no guarding or rigidity. SPINE: No scoliosis or deformity SKIN: No rashes CENTRAL NERVOUS SYSTEM: No focal deficits, tone is normal in all 4 extremities. EXTREMITIES: There is significant scrotal edema. There is 1-2+ peripheral edema. No clubbing, no cyanosis. Peripheral pulses are intact. - Labs CBC & Chem 7: 02/16/20 08:08 02/16/20 08:08 Labs: Abnormal Lab Results - Last 24 Hours (Table) 02/15/20 02/15/20 02/15/20 Range/Units 08:51 16:53 19:52 RBC (4.30-5.90) m/uL Hgb (13.0-17.5) gm/dL Hct (39.0-53.0) % Plt Count (150-450) k/uL Sodium (137-145) mmol/L BUN (9-20) mg/dL Creatinine (0.66-1.25) mg/dL Glucose (74-99) mg/dL POC Glucose (mg/dL) 239 H 402 H (75-99) mg/dL Calcium (8.4-10.2) mg/dL Total Protein (6.3-8.2) g/dL Procalcitonin 0.75 H (0.02-0.09) ng/mL 11/21/20 11/21/20 11/21/20 Range/Units 08:08 08:08 12:09 RBC 3.17 L (4.30-5.90) m/uL Hgb 9.5 L (13.0-17.5) gm/dL Hct 29.7 L (39.0-53.0) % Plt Count 50 L (150-450) k/uL Sodium 135 L (137-145) mmol/L BUN 61 H (9-20) mg/dL Creatinine 3.51 H (0.66-1.25) mg/dL Glucose 120 H (74-99) mg/dL POC Glucose (mg/dL) 189 H (75-99) mg/dL Calcium 7.8 L (8.4-10.2) mg/dL Total Protein 5.6 L (6.3-8.2) g/dL Procalcitonin (0.02-0.09) ng/mL Microbiology - Last 24 Hours (Table) 02/12/20 16:21 Gram Stain - Preliminary Pleural Fluid Body Fluid Culture - Preliminary Assessment and Plan Assessment: 1 Acute hypoxemic/hypercapnic respiratory failure requiring intubation mechanical ventilator toward support from 02/03/2020 through 02/04/2020. The patient was extubated on 02/04/2020 with subsequent reintubation and self extubated, currently on 5 L high flow nasal cannula. Previous bronchoscopies shown no evidence of an endobronchial lesions obstructing the airway. The patient was noted to have persistent left sided pleural effusion and another thoracentesis was done and a total of 500 mL of pleural fluid aspirated from the left lung with adequate aeration of the left upper lobe area. There is still some volume loss and consolidation of left lung base. Sputum is growing Acinetoobacter Ivy/haemol 2 Recurrent left lung pleural effusion with previous thoracentesis with animal fluid returned on 02/03/2020. Fluid positive for Enterobacter gergoviae and Streptococcus. And a follow-up sputum culture is still pending for now. 3 Gram-negative pneumonia with Enterobacter and the patient has dense consolidation left lung infiltrate status post bronchoscopy with BAL on 02/03/2020 and again on 02/06/2020. Cultures positive for Enterobacter gergoviae and the patient is currently on IV Zosyn. 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 The patient be taken off the Levemir insulin. 12 Gastric esophageal reflux disease 13 Nonischemic cardiomyopathy status post AICD placement 14 Chronic pancreatitis with pancreatic exocrine insufficiency 15 History of pancreatic pseudocyst 16 Poor overall functional performance based on the above mentioned multiple comorbidities Plan The patient was seen and evaluated by Dr. Jey Hyatt for now and bronchodilators Continue diuretics Dialyzed per nephrology Encouraged increased use of the incentive spirometer and cough and deep breathing exercises Increase activity as tolerated We will continue to follow I, the cosigning physician, performed a history & physical examination of the patient. Lungs sounds with basilar crackles. Maintaining good O2 saturations in the 90s on 2 L high flow nasal cannula. I discussed the assessment and plan of care with my nurse practitioner, Elenita Anne. I attest to the above note as noa fisher by her.
--- NOTE | 2020-02-16 14:45 | P.PN ---
Subjective Patient is seen in follow-up for acute kidney injury. Oral intake is good. Denies chest pain or shortness of breath. Pierson catheter was removed 02/14/20. Being monitored for retention. Had HD yesterday and will be getting another treatment today. Vital signs are stable. General: The patient appeared well nourished and normally developed. HEENT: Head exam is unremarkable. Lungs: Breath sounds decreased. HEART: Rate and Rhythm are regular. ABDOMEN: Soft, no distention noted. EXTREMITITES: 1-2+ edema. Scrotal edema noted. Objective - Vital Signs Vital signs: Vital Signs Temp 97.8 F 02/16/20 11:53 Pulse 94 02/16/20 11:53 Resp 20 02/16/20 11:53 BP 102/61 02/16/20 11:53 Pulse Ox 94 L 02/16/20 11:53 Intake & Output 02/15/20 02/16/20 02/16/20 18:59 06:59 18:59 Intake Total 1080 800 Output Total 800 150 Balance 280 -150 800 Weight 77.4 kg Intake: Oral 1080 800 Output: Urine 800 150 Post Void Residual 0 Other: Voiding Method Urinal Urinal Urinal # Voids 1 1 ABP, PAP, CO, CI - Last Documented Arterial Blood Pressure 183/72 - Labs CBC & Chem 7: 02/16/20 08:08 02/16/20 08:08 Labs: Abnormal Lab Results - Last 24 Hours (Table) 02/15/20 02/15/20 02/15/20 Range/Units 08:51 16:53 19:52 RBC (4.30-5.90) m/uL Hgb (13.0-17.5) gm/dL Hct (39.0-53.0) % Plt Count (150-450) k/uL Sodium (137-145) mmol/L BUN (9-20) mg/dL Creatinine (0.66-1.25) mg/dL Glucose (74-99) mg/dL POC Glucose (mg/dL) 239 H 402 H (75-99) mg/dL Calcium (8.4-10.2) mg/dL Total Protein (6.3-8.2) g/dL Procalcitonin 0.75 H (0.02-0.09) ng/mL 02/16/20 02/16/20 02/16/20 Range/Units 08:08 08:08 12:09 RBC 3.17 L (4.30-5.90) m/uL Hgb 9.5 L (13.0-17.5) gm/dL Hct 29.7 L (39.0-53.0) % Plt Count 50 L (150-450) k/uL Sodium 135 L (137-145) mmol/L BUN 61 H (9-20) mg/dL Creatinine 3.51 H (0.66-1.25) mg/dL Glucose 120 H (74-99) mg/dL POC Glucose (mg/dL) 189 H (75-99) mg/dL Calcium 7.8 L (8.4-10.2) mg/dL Total Protein 5.6 L (6.3-8.2) g/dL Procalcitonin (0.02-0.09) ng/mL Microbiology - Last 24 Hours (Table) 02/12/20 16:21 Gram Stain - Preliminary Pleural Fluid Body Fluid Culture - Preliminary Assessment and Plan Plan: Assessment: 1. Acute kidney injury secondary to ATN secondary to sepsis and cardiorenal syndrome. Started on hemodialysis February 09 - last treatment 02/14. No hydronephrosis noted on kidney ultrasound. Nonoliguric. 2. Whiteout of the right lung. Possibly pneumonia. No fluid obtained with thoracentesis. Status post bronchoscopy with removal of mucous plugs. Underwent another thoracentesis on February 11 with 500 mL drained from the left pleural space. 3. Acute on chronic systolic CHF with ejection fraction of 25% with moderate mitral regurgitation. 4. Acute hypoxic and hypercapnic respiratory failure. Better. Now on 2L nasal cannula. 5. Hyperkalemia secondary to acute kidney injury and metabolic acidosis. Resolved. 6. Hyponatremia secondary to acute kidney injury. Hypervolemic. Better. 7. Pleural space infection maintained on antibiotics; sputum culture positive for Acinetobacter. 8. Chronic kidney disease stage III with baseline creatinine in the range of 1.1-1.5. Etiology is most likely diabetic kidney disease. 9. Hypoglycemia maintained on D5W. Resolved. 10. Hyperphosphatemia secondary to acute kidney injury. Maintained on PhosLo. 11. Anemia of chronic kidney disease. Maintained on Epogen. Plan: Hemodialysis today and again tomorrow mostly for UF. Monitor bladder scans to make sure no urinary retention. Maintain IV Lasix. Continue to assess for need for renal replacement therapy on daily basis.
[2020-02-16] MEDS ORDERED: PIPERACILLIN-TAZOBACTAM 3.375 GM in SODIUM CHLORIDE 0.9% 100 ML IVPB SCH (16:00)
[2020-02-16] MEDS ORDERED: HEPARIN SODIUM,PORCINE 5,000 UNIT/ML 1 ML VIAL SQ SCH (16:00)
[2020-02-16 16:38] LABS: Glucose,Whole Blood 195 mg/dL (75-99)
[2020-02-16 20:23] LABS: Glucose,Whole Blood 351 mg/dL (75-99)
[2020-02-16] MEDS: ATORVASTATIN 10 MG TAB PO SCH (20:51)
[2020-02-16] MEDS: SODIUM CHLORIDE 0.9% 1,000 ML IV SCH (20:51)
[2020-02-16] MEDS: INSULIN DETEMIR (LEVEMIR) 100 UNIT/ML SYR SQ SCH (22:01)
--- NOTE | 2020-02-16 22:45 | PN ---
PROGRESS NOTE DATE OF SERVICE: 02/16/2020 REASON FOR FOLLOWUP: Pneumonia. INTERVAL HISTORY: Patient is currently afebrile. Patient is breathing more comfortably. The patient denies having any chest pain. He did have a cough, not bringing up any sputum. No nausea, no vomiting. No abdominal pain, no diarrhea. EXAM: Blood pressure 159/71 with a pulse of 75, temperature 98. He is 97% on 2 L nasal cannula. General description is a middle-aged male up in the chair in no distress. Respiratory system: Unlabored breathing, coarse breath sounds bilaterally, no wheeze. Heart S1, S2. Regular rate and rhythm. Abdomen soft, no tenderness. LABS: Hemoglobin 9.5, white count 7.2, BUN of 61, creatinine 3.51. DIAGNOSTIC IMPRESSION AND PLAN: 1. Patient with Enterobacter pneumonia with possible parapneumonic effusion, status post thoracocentesis. Currently covered with Zosyn. Recommend switch to cefepime on discharge for a short course. 2. Positive sputum with Acinetobacter baumannii, likely contamination as the patient clinically improved without getting treatment for the same. No need for any treatment. MMODL / IJN: [id number] /
[2020-02-17] MEDS: PIPERACILLIN-TAZOBACTAM 3.375 GM in SODIUM CHLORIDE 0.9% 100 ML IVPB SCH ×3 (05:29→20:19)
[2020-02-17 06:28] LABS: Glucose,Whole Blood 187 mg/dL (75-99)
[2020-02-17] MEDS: CALCIUM ACETATE 667 MG TAB PO SCH ×3 (06:34→16:37)
[2020-02-17] MEDS: LIPASE 5,000/PROTEASE 17,000/AMYLASE 24,000 PO SCH (06:34)
[2020-02-17] MEDS: INSULIN ASPART (NovoLOG) 100 UNIT/ML VIAL SQ SCH ×4 (06:34→20:19)
[2020-02-17 07:54] LABS: Calcium 7.9 mg/dL (8.4-10.2); Magnesium 1.9 mg/dL (1.6-2.3); Phosphorus 6.6 mg/dL (2.5-4.5); Potassium 4.4 mmol/L (3.5-5.1)
[2020-02-17] MEDS: SYMBICORT 160-4.5 MCG INHALER INHALATION SCH ×2 (08:23→20:24)
[2020-02-17] MEDS: IPRATROPIUM-ALBUTEROL 3 ML NEB INHALATION SCH ×4 (08:23→20:24)
[2020-02-17] MEDS: predniSONE 10 MG TAB PO SCH (10:33)
[2020-02-17] MEDS: ISOSORBIDE MONONITRATE ER 30 MG TAB.ER.24H PO SCH (10:33)
[2020-02-17] MEDS: PREGABALIN 100 MG CAP PO SCH ×2 (10:33→20:19)
[2020-02-17] MEDS: METOPROLOL SUCCINATE (ER) 25 MG TAB.ER.24H PO SCH (10:33)
[2020-02-17] MEDS: FUROSEMIDE 10 MG/ML 4 ML VIAL IV SCH ×2 (10:34→20:18)
--- NOTE | 2020-02-17 10:55 | P.PN ---
Subjective Patient is hypoxic and hypercapnic respiratory failure was intubated on admission patient the was extubated on 02/04/2020. Patient is presently on 3 L of oxygen. Patient is dialysis dependent. Patient is being treated heart failure as well as gram-negative pneumonia, sputum cultures are positive for Enterobacter, patient also has positive sputum culture with this and Acinetobacter which is current medication patient is presently on Zosyn and infectious disease is following the patient. Patient is more dialysis dependent. Patient does have urine output retaining some urine consider Pierson catheter patient has significant scrotal swelling patient is also on Lasix at this time nephrology is following the patient along with pulmonary and i nfectious disease. 02/17/2020 Patient is on 2 L of oxygen. Patient underwent hemodialysis today removed about 2.5 L of fluid and will undergo hemodialysis tomorrow as well. Patient the testicular swelling improved Constitutional: Denied any fatigue denied any fever. Cardio vascular: denied any chest pain, palpitations Gastrointestinal denied any nausea vomiting Pulmonary: Still short of breath All inpatient medications were reviewed and appropriate changes in these medications as dictated in the interval history and assessment and plan. Objective - Vital Signs Vital signs: Vital Signs Temp 97.9 F 02/17/20 09:00 Pulse 92 02/17/20 09:00 Resp 20 02/17/20 09:00 BP 116/68 02/17/20 09:00 Pulse Ox 95 02/17/20 09:00 Intake & Output 02/16/20 02/17/20 02/17/20 18:59 06:59 18:59 Intake Total 2600 300 240 Output Total 3100 550 Balance -500 -250 240 Weight 73 kg Intake: IV 300 Sodium Chloride 0.9% 1, 300 000 ml @ 10 mls/hr IV . Q24H [facility] Rx#:[id number] Oral 2600 240 Output: Urine 600 550 Hemodialysis 2500 Other: Voiding Method Urinal Urinal Urinal # Voids 1 ABP, PAP, CO, CI - Last Documented Arterial Blood Pressure 183/72 - Exam PHYSICAL EXAMINATION: GENERAL: The patient is alert and oriented x3, not in any acute distress. Well developed, well nourished. HEENT: Pupils are round and equally reacting to light. EOMI. No scleral icterus. No conjunctival pallor. Normocephalic, atraumatic. No pharyngeal erythema. No thyromegaly. CARDIOVASCULAR: S1 and S2 present. No murmurs, rubs, or gallops. PULMONARY: Diffuse bilateral rhonchi and wheezing ABDOMEN: Soft, nontender, nondistended, normoactive bowel sounds. No palpable organomegaly. MUSCULOSKELETAL: No joint swelling or deformity. EXTREMITIES: No cyanosis, clubbing, patient does have significant scrotal edema compared to yesterday NEUROLOGICAL: Gross neurological examination did not reveal any focal deficits. SKIN: No rashes. - Labs CBC & Chem 7: 02/16/20 08:08 02/17/20 06:46 Labs: Abnormal Lab Results - Last 24 Hours (Table) 02/16/20 02/16/20 02/16/20 Range/Units 12:09 16:29 20:21 BUN (9-20) mg/dL Creatinine (0.66-1.25) mg/dL Glucose (74-99) mg/dL POC Glucose (mg/dL) 189 H 195 H 351 H (75-99) mg/dL Calcium (8.4-10.2) mg/dL Phosphorus (2.5-4.5) mg/dL 02/17/20 02/17/20 Range/Units 06:16 06:46 BUN 48 H (9-20) mg/dL Creatinine 2.92 H (0.66-1.25) mg/dL Glucose 159 H (74-99) mg/dL POC Glucose (mg/dL) 187 H (75-99) mg/dL Calcium 7.9 L (8.4-10.2) mg/dL Phosphorus 6.6 H (2.5-4.5) mg/dL Microbiology - Last 24 Hours (Table) 02/12/20 16:21 Anaerobic Culture - Final Pleural Fluid 02/12/20 16:21 Gram Stain - Final Pleural Fluid Body Fluid Culture - Final Assessment and Plan Plan: -Acute hypoxic and hypercapnic respiratory failure: Patient is status post extubation patient was extubated on 02/14/2020.. Patient is presently on nasal cannula oxygen. -Congestive heart failure chronic systolic dysfunction with acute exacerbation EF of around 25-30% -End-stage renal disease on hemodialysis patient had hemodialysis yesterday today and will undergo hemodialysis tomorrow. -Bilateral recurrent pleural effusion -Gram-negative pneumonia with Enterobacter patient is presently on Zosyn -Acute renal failure secondary to acute tubular necrosis presently on hemodialysis -Hypertension -Hyperlipidemia -Type 2 diabetes mellitus with diabetic neuropathy -Gastroesophageal reflux disease -Pancreatic insufficiency from his chronic pancreatitis -Pancreatic pseudocyst -Generalized deconditioning for from prolonged hospitalization physical therapy and occupational therapy will evaluate the patient.
[2020-02-17 11:23] LABS: Glucose,Whole Blood 155 mg/dL (75-99)
--- NOTE | 2020-02-17 13:04 | P.PN ---
Subjective Patient is seen in follow-up for acute kidney injury. Oral intake is good. Denies chest pain or shortness of breath. Pierson catheter was removed 02/14/20. Being monitored for retention. Last hemodialysis February 15. Had ultrafiltration only with 2-1/2 L removed this morning. Edema improving. Vital signs are stable. General: The patient appeared well nourished and normally developed. HEENT: Head exam is unremarkable. Lungs: Breath sounds decreased. HEART: Rate and Rhythm are regular. ABDOMEN: Soft, no distention noted. EXTREMITITES: 1-2+ edema. Scrotal edema noted. Objective - Vital Signs Vital signs: Vital Signs Temp 97.9 F 02/17/20 12:00 Pulse 85 02/17/20 12:00 Resp 18 02/17/20 12:00 BP 148/76 02/17/20 12:00 Pulse Ox 97 02/17/20 12:00 Intake & Output 02/16/20 02/17/20 02/17/20 18:59 06:59 18:59 Intake Total 2600 300 240 Output Total 3100 550 2500 Balance -500 -250 -2260 Weight 73 kg Intake: IV 300 Sodium Chloride 0.9% 1, 300 000 ml @ 10 mls/hr IV . Q24H [facility] Rx#:[id number] Oral 2600 240 Output: Urine 600 550 Hemodialysis 2500 2500 Other: Voiding Method Urinal Urinal Urinal # Voids 1 ABP, PAP, CO, CI - Last Documented Arterial Blood Pressure 183/72 - Labs CBC & Chem 7: 02/16/20 08:08 02/17/20 06:46 Labs: Abnormal Lab Results - Last 24 Hours (Table) 02/16/20 02/16/20 02/17/20 Range/Units 16:29 20:21 06:16 BUN (9-20) mg/dL Creatinine (0.66-1.25) mg/dL Glucose (74-99) mg/dL POC Glucose (mg/dL) 195 H 351 H 187 H (75-99) mg/dL Calcium (8.4-10.2) mg/dL Phosphorus (2.5-4.5) mg/dL 02/17/20 02/17/20 Range/Units 06:46 11: BUN 48 H (9-20) mg/dL Creatinine 2.92 H (0.66-1.25) mg/dL Glucose 159 H (74-99) mg/dL POC Glucose (mg/dL) 155 H (75-99) mg/dL Calcium 7.9 L (8.4-10.2) mg/dL Phosphorus 6.6 H (2.5-4.5) mg/dL Microbiology - Last 24 Hours (Table) 02/12/20 16:21 Anaerobic Culture - Final Pleural Fluid 02/12/20 16:21 Gram Stain - Final Pleural Fluid Body Fluid Culture - Final Assessment and Plan Plan: Assessment: 1. Acute kidney injury secondary to ATN secondary to sepsis and cardiorenal syndrome. Started on hemodialysis February 09 - last treatment 02/15. No hydronephrosis noted on kidney ultrasound. Nonoliguric. Urine output about 500 mL overnight. 2. Whiteout of the right lung. Possibly pneumonia. No fluid obtained with thoracentesis. Status post bronchoscopy with removal of mucous plugs. Underwent another thoracentesis on February 11 with 500 mL drained from the left pleural space. 3. Acute on chronic systolic CHF with ejection fraction of 25% with moderate mitral regurgitation. 4. Acute hypoxic and hypercapnic respiratory failure. Better. Now on 2L nasal cannula. 5. Hyperkalemia secondary to acute kidney injury and metabolic acidosis. Resolved. 6. Hyponatremia secondary to acute kidney injury. Hypervolemic. Better. 7. Pleural space infection maintained on antibiotics; sputum culture positive for Acinetobacter. 8. Chronic kidney disease stage III with baseline creatinine in the range of 1.1-1.5. Etiology is most likely diabetic kidney disease. 9. Hypoglycemia maintained on D5W. Resolved. 10. Hyperphosphatemia secondary to acute kidney injury. Maintained on PhosLo. 11. Anemia of chronic kidney disease. Maintained on Epogen. Plan: Head and ultrafiltration only treatment this morning. Plan for another treatment tomorrow. Monitor bladder scans to make sure no urinary retention. Maintain IV Lasix.
--- NOTE | 2020-02-17 14:35 | P.PN ---
Subjective Progress Note Date: 02/17/20 Principal diagnosis: Acute on chronic hypoxemic/hypercapnic respiratory failure requiring intubation mechanical ventilatory support from February 02 and successfully extubated Novem nirmal 9. 59-year-old male patient is well-known to me and the patient is currently in the intensive care unit after being reintubated yesterday for respiratory support for an extensive left lung pneumonia. Note that the patient required intubation mechanical ventilation earlier and the patient was successfully extubated on 02/04/2020. His pulmonary workup that included a bronchoscopy and the lavage that showed Enterobacter and the same micrograms and was also cultured from the pleural fluid that was aspirated on 02/03/2020. The patient currently remains on IV antibiotics and the patient is receiving IV Zosyn. Noted the chest exit shown significant consolidation and atelectasis of the left lung in addition to a small left-sided pleural effusion. Overnight, the patient became more hypoxic and less responsive. He had to be reintubated and he was brought into the intensive care unit for further care. This morning, the patient is on propofol running at 10 mg per KG per minute. He is easily arousable while being on sedation. He is also receiving normal sed rate of 75 mL an hour. He remains on assist control mode of ventilation at the rate of 24 the tidal volume of 450 and FiO2 of 40% with a PEEP of 5. The blood gas showed pH of 7.36 with a pCO2 of 37 and pO2 95. The patient is currently on no pressors. He is maintaining his own blood pressure. No fever. No chills. No leukocytosis with a white cell count 3.9. He has developed an acute kidney injury. As mentioned earlier creatinine came up to 5.8 and currently is down to 3.98 and the patient is going to require another session of hemodialysis today. The patient will be kept in ICU for now. I'm suggesting a repeat CAT scan of the chest to reevaluate the left lung. Based on my earlier review of the CAT scan that was done earlier, the patient has volume loss and extensive consolidation with a component of pleural fluid. I think this is essentially small at this point in time. He is on a prednisone burst taper currently on 30 mg by mouth daily. He is on Lovenox 30 mg subcu for DVT prophylaxis. He is on Levemir insulin 22 units at bedtime in addition to a size care coverage. The patient is also to be started enteral feeding for nutritional support. 02/12/2020, the patient is being seen for a follow-up. The patient is currently extubated. In the lcsw hours, the patient self extubated and the patient was not reintubated. He was kept on BiPAP at a pressure of 14/7 cm of water and FiO2 of 50%. He is much more comfortable at this point in time is breathing adequately. He is communicating and is awake and alert. Chest x-ray shows significant volume loss on the left with significant opacification of the left lung, however there is some slight improvement in the upper outer left lung with some improved aeration the left upper lobe area. The patient also has a mild right lower lobe pulmonary infiltration. Based on this, I contacted interventional radiology. I requested an ultrasound-guided thoracentesis and another 500 mL of pleural fluid was aspirated from the patient's lung successfully. Postprocedure chest x-ray shows significant improvement in aeration of the left lung. Nevertheless distal constellation of the left lower lobe along with some volume loss. The patient will be kept on the BiPAP overnight. I contacted the sister and I also updated her on the condition. Meanwhile, the patient will be kept on DuoNeb nebulized treatments on the clock and the patient is also on IV Zosyn regarding the gram-negative pneumonia with a parapneumonic effusion that was attributed to be related to Enterobacter. Repeat sputum sample was also sent and it's still growing gram-negative bacillus and would awaiting final cultures and sensitivities. In addition, the patient is going to undergo hemodialysis today. IV fluids at [facility] The patient is seen today 02/13/2020 in follow-up on the selective care unit. He was transferred out of the ICU earlier this morning. He is sitting up at the bedside. Awake and alert in no acute distress. He is currently maintaining good O2 saturations in the high 90s on 7 L high flow nasal cannula. She's been afebrile. Hemodynamically stable. Initial pleural fluid cultures from 02/03/2020 were positive for alpha hemolytic streptococcus, Enterobacter gergoviae, Enterobacter cloacae. Follow-up fluid cultures from 02/12/2020 are pending. White count 5.3. Hemoglobin 9.3. Platelet count 53,000. Sodium 127. Potassium 4.3. Creatinine 2.69. Is currently on Zosyn along with bronchodilators, oral prednisone, IV diuretics. Lovenox for DVT prophylaxis. The patient is seen today 02/14/2020 in follow-up on the selective care unit. He is sitting up at the bedside. Awake and alert in no acute distress. Denies any worsening shortness of breath. He has a productive cough of grayish brown sputum. Cultures positive for Acinetobacter Ivy/haemol which is quite a resistant organism. White count 5.7. Hemoglobin 9.9. Sodium 131. Potassium 4.3. Creatinine 3.43. He remains on DuoNeb inhalations, Symbicort, redness him. Continued on IV diuretics. Currently on antibiotics in the form of Zosyn. Chest x-ray continues to show basilar effusion and associated atelectasis. The patient is seen today 02/15/2020 in follow-up on selective care unit. He is currently up ambulating with physical therapy. He is doing quite well. No worsening shortness of breath, cough or congestion. 18 O2 saturations in the high 90s on 3 L/m per nasal cannula. Cultures positive for Acinetobacter Ivy/haemol which is quite a resistant organism. Currently on Zosyn. White count 6.3. Hemoglobin 9.5. Sodium 132. Potassium 5.1. Creatinine 4.33. He remains on fluid restrictions. Chest x-ray reveals stable bilateral effusions. He remains on bronchodilators, prednisone. Remains on IV diuretics. The patient is seen today February 16 2020 follow-up on the selective care unit. He is currently resting fairly comfortably in bed. He is being concern today is continued significant edema the scrotum. He did receive hemodialysis yesterday. Hemodialysis is planned for today. His creatinine is 3.51. He is less short of breath. He started 2 L/m per nasal cannula to maintain O2 saturation in low 90s. White count 7.3. Hemoglobin 9.5. Platelet count 50,000. Sodium 135. Potassium 4.3. Creatinine 2.51. He remains on Lasix 40 mg IV twice a day. Patient is seen today 02/17/2020 in follow-up on selective care unit. He is awake and alert in no acute distress. Resting more comfortably in bed. He did receive hemodialysis yesterday and again today. His scrotal swelling has improved and the patient is hoping to go home soon. He plans to stay with his sister upon discharge. He denies any worsening shortness of breath, cough or congestion. He is maintaining O2 saturation the mid 90s on 2 L/m per nasal cannula. Sodium 138. Potassium 4.4. Creatinine 2.92. He remains on antibiotics in the form of Zosyn for his Acinetobacter Ivy/haemol sputum. Objective - Vital Signs Vital signs: Vital Signs Temp 97.9 F 02/17/20 12:00 Pulse 85 02/17/20 12:00 Resp 18 02/17/20 12:00 BP 148/76 02/17/20 12:00 Pulse Ox 97 02/17/20 12:00 Intake & Output 02/16/20 02/17/20 02/17/20 18:59 06:59 18:59 Intake Total 2600 300 360 Output Total 3100 550 2500 Balance -500 -250 -2140 Weight 73 kg Intake: IV 300 Sodium Chloride 0.9% 1, 300 000 ml @ 10 mls/hr IV . Q24H [facility] Rx#:[id number] Oral 2600 360 Output: Urine 600 550 Hemodialysis 2500 2500 Other: Voiding Method Urinal Urinal Urinal # Voids 1 ABP, PAP, CO, CI - Last Documented Arterial Blood Pressure 183/72 - Exam GENERAL EXAM: Alert, pleasant 59-year-old gentleman, appears older than stated age, on 2 L high flow nasal cannula, comfortable in no apparent distress. HEAD: Normocephalic. EYES: Normal reaction of pupils, equal size. NOSE: Clear with pink turbinates. THROAT: No erythema or exudates. NECK: No masses, no JVD. CHEST: No chest wall deformity. LUNGS: Equal air entry with bibasilar crackles, diminished. CVS: S1 and S2 normal with no audible murmur, regular rhythm. ABDOMEN: No hepatosplenomegaly, normal bowel sounds, no guarding or rigidity. SPINE: No scoliosis or deformity SKIN: No rashes CENTRAL NERVOUS SYSTEM: No focal deficits, tone is normal in all 4 extremities. EXTREMITIES: There is significant scrotal edema. There is 1-2+ peripheral edema . No clubbing, no cyanosis. Peripheral pulses are intact. - Labs CBC & Chem 7: 02/16/20 08:08 02/17/20 06:46 Labs: Abnormal Lab Results - Last 24 Hours (Table) 02/16/20 02/16/20 02/17/20 Range/Units 16:29 20:21 06:16 BUN (9-20) mg/dL Creatinine (0.66-1.25) mg/dL Glucose (74-99) mg/dL POC Glucose (mg/dL) 195 H 351 H 187 H (75-99) mg/dL Calcium (8.4-10.2) mg/dL Phosphorus (2.5-4.5) mg/dL 02/17/20 02/17/20 Range/Units 06:46 11:21 BUN 48 H (9-20) mg/dL Creatinine 2.92 H (0.66-1.25) mg/dL Glucose 159 H (74-99) mg/dL POC Glucose (mg/dL) 155 H (75-99) mg/dL Calcium 7.9 L (8.4-10.2) mg/dL Phosphorus 6.6 H (2.5-4.5) mg/dL Microbiology - Last 24 Hours (Table) 02/12/20 16:21 Anaerobic Culture - Final Pleural Fluid 02/12/20 16:21 Gram Stain - Final Pleural Fluid Body Fluid Culture - Final Assessment and Plan Assessment: 1 Acute hypoxemic/hypercapnic respiratory failure requiring intubation mechanical ventilator toward support from 02/03/2020 through 02/04/2020. The patient was extubated on 02/04/2020 with subsequent reintubation and self ext ubated, currently on 5 L high flow nasal cannula. Previous bronchoscopies shown no evidence of an endobronchial lesions obstructing the airway. The patient was noted to have persistent left sided pleural effusion and another thoracentesis was done and a total of 500 mL of pleural fluid aspirated from the left lung with adequate aeration of the left upper lobe area. There is still some volume loss and consolidation of left lung base. Sputum is growing Acinetoobacter Ivy/haemol currently on Zosyn. 2 Recurrent left lung pleural effusion with previous thoracentesis with animal fluid returned on 02/03/2020. Fluid positive for Enterobacter gergoviae and Streptococcus. 3 Gram-negative pneumonia with Enterobacter and the patient has dense consolidation left lung infiltrate status post bronchoscopy with BAL on 02/03/2020 and again on 02/06/2020. Cultures positive for Enterobacter gergo viae and the patient is currently on IV Zosyn. 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 The patient be taken off the Levemir insulin. 12 Gastric esophageal reflux disease 13 Nonischemic cardiomyopathy status post AICD placement 14 Chronic pancreatitis with pancreatic exocrine insufficiency 15 History of pancreatic pseudocyst 16 Poor overall functional performance based on the above mentioned multiple co morbidities Plan The patient was seen and evaluated by Dr. Jey Hyatt for now and bronchodilators Continue incentive spirometer and cough and deep breathing exercises Increase activity as tolerated Plan is to go home to his sister's upon discharge We will continue to follow I, the cosigning physician, performed a history & physical examination of the patient. Lungs sounds with basilar crackles. Maintaining good O2 saturations in the 90s on 2 L high flow nasal cannula. I discussed the assessment and plan of care with my nurse practitioner, Elenita Anne. I attest to the above note as dictated by her.
[2020-02-17] MEDS: HEPARIN SODIUM,PORCINE 5,000 UNIT/ML 1 ML VIAL SQ SCH ×2 (15:31→23:00)
[2020-02-17 16:28] LABS: Glucose,Whole Blood 202 mg/dL (75-99)
[2020-02-17 20:09] LABS: Glucose,Whole Blood 294 mg/dL (75-99)
[2020-02-17] MEDS: ATORVASTATIN 10 MG TAB PO SCH (20:19)
[2020-02-17] MEDS: INSULIN DETEMIR (LEVEMIR) 100 UNIT/ML SYR SQ SCH (20:42)
[2020-02-18] MEDS: SODIUM CHLORIDE 0.9% 1,000 ML IV SCH ×2 (00:32→20:41)
--- NOTE | 2020-02-18 01:14 | PN ---
PROGRESS NOTE DATE OF SERVICE: 02/17/2020 REASON FOR FOLLOWUP: 1. Enterobacter pneumonia and empyema. 2. Positive sputum Acinetobacter, likely colonization/contamination. INTERVAL HISTORY: The patient is currently afebrile. The patient is breathing more comfortably. The patient denies having chest pain. He currently has a cough, but not bringing up any sputum. No nausea, no vomiting. No abdominal pain or diarrhea. PHYSICAL EXAMINATION: Blood pressure 130/69 with a pulse of 84 temperature 97.9. He is 95% on 2 L nasal cannula. General description is a middle-aged male up in the bed in no distress. RESPIRATORY SYSTEM: Unlabored breathing, coarse breath sounds at the bases bilaterally. No wheeze. HEART: S1, S2. Regular rate and rhythm. ABDOMEN: Soft, no tenderness. LABS: BUN of 48, creatinine is 2.92. DIAGNOSTIC IMPRESSION AND PLAN: 1. Patient with Enterobacter pneumonia also with from pleural fluid. The patient is covered with Zosyn to transition to a short course of cefepime on discharge. 2. Positive sputum with Acinetobacter, likely colonized as the patient clinically improved without getting treatment for the same. No need for treatment for the same. MMODL / IJN: [id number] /
[2020-02-18] MEDS: PIPERACILLIN-TAZOBACTAM 3.375 GM in SODIUM CHLORIDE 0.9% 100 ML IVPB SCH ×3 (06:05→20:42)
[2020-02-18 06:07] LABS: Glucose,Whole Blood 159 mg/dL (75-99)
[2020-02-18] MEDS: LIPASE 5,000/PROTEASE 17,000/AMYLASE 24,000 PO SCH (06:34)
[2020-02-18] MEDS: CALCIUM ACETATE 667 MG TAB PO SCH ×3 (06:34→17:10)
[2020-02-18] MEDS: INSULIN ASPART (NovoLOG) 100 UNIT/ML VIAL SQ SCH ×4 (06:34→20:42)
[2020-02-18] MEDS: IPRATROPIUM-ALBUTEROL 3 ML NEB INHALATION SCH ×4 (07:43→20:04)
[2020-02-18] MEDS: SYMBICORT 160-4.5 MCG INHALER INHALATION SCH ×2 (07:43→20:24)
[2020-02-18] MEDS: PREGABALIN 100 MG CAP PO SCH ×2 (08:34→20:41)
[2020-02-18] MEDS: HEPARIN SODIUM,PORCINE 5,000 UNIT/ML 1 ML VIAL SQ SCH ×3 (08:34→23:10)
[2020-02-18] MEDS: FUROSEMIDE 10 MG/ML 4 ML VIAL IV SCH ×2 (08:34→20:42)
[2020-02-18 10:41] LABS: Calcium 7.5 mg/dL (8.4-10.2); Magnesium 1.9 mg/dL (1.6-2.3); Potassium 4.3 mmol/L (3.5-5.1)
[2020-02-18 11:50] LABS: Glucose,Whole Blood 291 mg/dL (75-99)
--- NOTE | 2020-02-18 12:27 | P.PN ---
Subjective Patient is seen in follow-up for acute kidney injury. Oral intake is good. Denies chest pain or shortness of breath. Pierson catheter was removed 02/14/20. Being monitored for retention. Urine output near 1.7 L in the last 24 hours. Last hemodialysis February 15. Had ultrafiltration only with 2-1/2 L removed yesterday. Edema improving. Vital signs are stable. General: The patient appeared well nourished and normally developed. HEENT: Head exam is unremarkable. Lungs: Breath sounds decreased. HEART: Rate and Rhythm are regular. ABDOMEN: Soft, no distention noted. EXTREMITITES: 1-2+ edema. Scrotal edema noted. Objective - Vital Signs Vital signs: Vital Signs Temp 97.6 F 02/18/20 12:00 Pulse 87 02/18/20 12:00 Resp 20 02/18/20 12:00 BP 125/63 02/18/20 12:00 Pulse Ox 97 02/18/20 12:00 Intake & Output 02/17/20 02/18/20 02/18/20 18:59 06:59 18:59 Intake Total 1220 250 240 Output Total 3300 750 475 Balance -0 -500 -235 Weight 73.2 kg Intake: Oral 1220 250 240 Output: Urine 800 750 475 Hemodialysis 2500 Other: Voiding Method Urinal Urinal Urinal # Voids 1 ABP, PAP, CO, CI - Last Documented Arterial Blood Pressure 183/72 - Labs CBC & Chem 7: 02/16/20 08:08 02/18/20 09:02 Labs: Abnormal Lab Results - Last 24 Hours (Table) 02/17/20 02/17/20 02/18/20 Range/Units 16:26 20:07 06:06 Sodium (137-145) mmol/L BUN (9-20) mg/dL Creatinine (0.66-1.25) mg/dL Glucose (74-99) mg/dL POC Glucose (mg/dL) 202 H 294 H 159 H (75-99) mg/dL Calcium (8.4-10.2) mg/dL 02/18/20 02/18/20 Range/Units 09:02 11:49 Sodium 134 L (137-145) mmol/L BUN 51 H (9-20) mg/dL Creatinine 3.58 H (0.66-1.25) mg/dL Glucose 215 H (74-99) mg/dL POC Glucose (mg/dL) 291 H (75-99) mg/dL Calcium 7.5 L (8.4-10.2) mg/dL Assessment and Plan Plan: Assessment: 1. Acute kidney injury secondary to ATN secondary to sepsis and cardiorenal syndrome. Started on hemodialysis February 09 - last treatment 02/15. No hydronephrosis noted on kidney ultrasound. Nonoliguric. 2. Whiteout of the right lung. Possibly pneumonia. No fluid obtained with thoracentesis. Status post bronchoscopy with removal of mucous plugs. Underwent another thoracentesis on February 11 with 500 mL drained from the left pleural space. 3. Acute on chronic systolic CHF with ejection fraction of 25% with moderate mitral regurgitation. 4. Acute hypoxic and hypercapnic respiratory failure. Better. Now on 2L nasal cannula. 5. Hyperkalemia secondary to acute kidney injury and metabolic acidosis. Resolved. 6. Hyponatremia secondary to acute kidney injury. Hypervolemic. 7. Pleural space infection maintained on antibiotics; sputum culture positive for Acinetobacter. 8. Chronic kidney disease stage III with baseline creatinine in the range of 1.1-1.5. Etiology is most likely diabetic kidney disease. 9. Hypoglycemia maintained on D5W. Resolved. 10. Hyperphosphatemia secondary to acute kidney injury. Maintained on PhosLo. 11. Anemia of chronic kidney disease. Maintained on Epogen. Plan: Repeat ultrafiltration only today. Maintain IV Lasix. Continue to monitor renal function and urine output. If renal function continues to decline tomorrow, will schedule for permacath placement. Repeat phosphorus level.
--- NOTE | 2020-02-18 15:00 | P.PN ---
Subjective Principal diagnosis: CHF with COPD element The patient is a 59-year-old white male with known history of chronic pancreatitis diabetes CHF and COPD. The patient has lower extremity edema and has been being treated with dialysis. The patient is on nasal cannula and doing better. He is much more alert and emotionally at his baseline. \ Objective - Vital Signs Vital signs: Vital Signs Temp 97.5 F L 02/18/20 14:39 Pulse 87 02/18/20 14:39 Resp 18 02/18/20 14:39 BP 109/56 02/18/20 14:39 Pulse Ox 97 02/18/20 12:00 Intake & Output 02/17/20 02/18/20 02/18/20 18:59 06:59 18:59 Intake Total 1220 250 600 Output Total 3300 750 3475 Balance -2079 500 -4099 Weight 73.2 kg Intake: IV 80 Sodium Chloride 0.9% 1, 80 000 ml @ 10 mls/hr IV . Q24H [facility] Rx#:[id number] Intake, IV Titration 100 Amount Piperacillin-Tazobactam 3 100 .375 gm In Sodium Chloride 0.9% 100 ml @ 25 mls/hr IVPB Q8H [facility] Rx#: [id number] Oral 1220 250 420 Output: Urine 800 750 475 Hemodialysis 2500 3000 Other: Voiding Method Urinal Urinal Urinal # Voids 1 ABP, PAP, CO, CI - Last Documented Arterial Blood Pressure 183/72 - Constitutional General appearance: Present: no acute distress - EENT Eyes: Absent: abnormal pupil - Neck Neck: Absent: lymphadenopathy - Respiratory Respiratory: bilateral: CTA - Cardiovascular Rhythm: regular Heart sounds: normal: S1, S2 Abnormal Heart Sounds: Absent: S3 Gallop - Gastrointestinal General gastrointestinal: Present: soft. Absent: tenderness - Integumentary Integumentary Comment(s): Lower extremity edema - Neurologic Neurologic: Present: CNII-XII intact - Labs CBC & Chem 7: 02/16/20 08:08 02/18/20 09:02 Labs: Abnormal Lab Results - Last 24 Hours (Table) 02/17/20 02/17/20 02/18/20 Range/Units 16:26 20:07 06:06 Sodium (137-145) mmol/L BUN (9-20) mg/dL Creatinine (0.66-1.25) mg/dL Glucose (74-99) mg/dL POC Glucose (mg/dL) 202 H 294 H 159 H (75-99) mg/dL Calcium (8.4-10.2) mg/dL 02/18/20 02/18/20 Range/Units 09:02 11:49 Sodium 134 L (137-145) mmol/L BUN 51 H (9-20) mg/dL Creatinine 3.58 H (0.66-1.25) mg/dL Glucose 215 H (74-99) mg/dL POC Glucose (mg/dL) 291 H (75-99) mg/dL Calcium 7.5 L (8.4-10.2) mg/dL Microbiology - Last 24 Hours (Table) 02/06/20 15:30 Fungal Culture - Preliminary Bronchial Washings - Left Assessment and Plan (1) Congestive heart failure Current Visit: Yes Status: Acute Code(s): I50.9 - HEART FAILURE, UNSPECIFIED SNOMED Code(s): 64388109 (2) Hyperglycemia Current Visit: Yes Status: Acute Code(s): R73.9 - HYPERGLYCEMIA, UNSPECIFIED SNOMED Code(s): 38883049 (3) Hyponatremia Current Visit: Yes Status: Acute Code(s): E87.1 - HYPO-OSMOLALITY AND HYPONATREMIA SNOMED Code(s): 68163433 (4) Respiratory failure Current Visit: No Status: Acute Code(s): J96.90 - RESPIRATORY FAILURE, UNSP, UNSP W HYPOXIA OR HYPERCAPNIA SNOMED Code(s): 896149506 Plan: Continue supportive care Check CBC and CMP in the a.m. Prognosis is guarded secondary to his multiple comorbidities. Titrate insulin for blood sugar control. Appreciate multiple consultants input.
[2020-02-18 16:52] LABS: Glucose,Whole Blood 261 mg/dL (75-99)
[2020-02-18] MEDS: METOPROLOL SUCCINATE (ER) 25 MG TAB.ER.24H PO SCH (17:10)
[2020-02-18] MEDS: ISOSORBIDE MONONITRATE ER 30 MG TAB.ER.24H PO SCH (17:10)
[2020-02-18] MEDS: predniSONE 10 MG TAB PO SCH (17:10)
--- NOTE | 2020-02-18 17:19 | P.PN ---
Subjective Progress Note Date: 02/18/20 Principal diagnosis: Acute on chronic hypoxic respiratory failure, multifactorial The patient is seen today February 16 2020 follow-up on the selective care unit. He is currently resting fairly comfortably in bed. He is being concern today is continued significant edema the scrotum. He did receive hemodialysis yesterday. Hemodialysis is planned for today. His creatinine is 3.51. He is less short of breath. He started 2 L/m per nasal cannula to maintain O2 saturation in low 90s. White count 7.3. Hemoglobin 9.5. Platelet count 50,000. Sodium 135. Potassium 4.3. Creatinine 2.51. He remains on Lasix 40 mg IV twice a day. Patient is seen today 02/17/2020 in follow-up on selective care unit. He is awake and alert in no acute distress. Resting more comfortably in bed. He did receive hemodialysis yesterday and again today. His scrotal swelling has improved and the patient is hoping to go home soon. He plans to stay with his sister upon discharge. He denies any worsening shortness of breath, cough or congestion. He is maintaining O2 saturation the mid 90s on 2 L/m per nasal cannula. Sodium 138. Potassium 4.4. Creatinine 2.92. He remains on ant ibiotics in the form of Zosyn for his Acinetobacter Ivy/haemol sputum. Patient was reevaluated today on 02/18/20, seems to be quite comfortable today, patient is in no distress, he is on 2 L nasal cannula, O2 saturation is 92%. Patient is hemodynamically stable, does not seem to be experiencing any labored breathing. Basic metabolic profile is normal renal functioning is worse with a BUN of 51 creatinine 3.58. His last chest x-ray on 02/15/20, showed significant improvement in his left lung collapse and his left sided airspace disease as well as pleural effusion. Cytology of the pleural effusion has been negative for malignancy. Objective - Vital Signs Vital signs: Vital Signs Temp 97.6 F 02/18/20 15:36 Pulse 80 02/18/20 16:28 Resp 20 02/18/20 15:39 BP 118/66 02/18/20 15:36 Pulse Ox 92 L 02/18/20 15:36 Intake & Output 02/17/20 02/18/20 02/18/20 18:59 06:59 18:59 Intake Total 1220 250 600 Output Total 3300 750 3375 Balance -4121 -633 -3687 Weight 73.2 kg Intake: IV 80 Sodium Chloride 0.9% 1, 80 000 ml @ 10 mls/hr IV . Q24H JOSY Rx#:[id number] Intake, IV Titration 100 Amount Piperacillin-Tazobactam 3 100 .375 gm In Sodium Chloride 0.9% 100 ml @ 25 mls/hr IVPB Q8H JOSY Rx#: [id number] Oral 1220 250 420 Output: Urine 800 750 475 Hemodialysis 2500 3000 Other: Voiding Method Urinal Urinal Urinal # Voids 1 ABP, PAP, CO, CI - Last Documented Arterial Blood Pressure 183/72 - Exam GENERAL EXAM: Alert, pleasant 59-year-old gentleman, appears older than stated age, on 2 L high flow nasal cannula, comfortable in no apparent distress. HEENT: Atraumatic, normocephalic, PERRLA, no icterus, no neck masses, no JVD, no stridor. CHEST: No chest wall deformity. LUNGS: Equal air entry with bibasilar crackles, diminished. CVS: S1 and S2 normal with no audible murmur, regular rhythm. ABDOMEN: No hepatosplenomegaly, normal bowel sounds, no guarding or rigidity. SPINE: No scoliosis or deformity SKIN: No rashes CENTRAL NERVOUS SYSTEM: No focal deficits, tone is normal in all 4 extremities. EXTREMITIES: There is significant scrotal edema. There is 1-2+ peripheral edema. No clubbing, no cyanosis. Peripheral pulses are intact. - Labs CBC & Chem 7: 02/16/20 08:08 02/18/20 09:02 Labs: Abnormal Lab Results - Last 24 Hours (Table) 02/17/20 02/18/20 02/18/20 Range/Units 20:07 06:06 09:02 Sodium 134 L (137-145) mmol/L BUN 51 H (9-20) mg/dL Creatinine 3.58 H (0.66-1.25) mg/dL Glucose 215 H (74-99) mg/dL POC Glucose (mg/dL) 294 H 159 H (75-99) mg/dL Calcium 7.5 L (8.4-10.2) mg/dL 02/18/20 02/18/20 Range/Units 11:49 16:51 Sodium (137-145) mmol/L BUN (9-20) mg/dL Creatinine (0.66-1.25) mg/dL Glucose (74-99) mg/dL POC Glucose (mg/dL) 291 H 261 H (75-99) mg/dL Calcium (8.4-10.2) mg/dL Microbiology - Last 24 Hours (Table) 02/06/20 15:30 Fungal Culture - Preliminary Bronchial Washings - Left Assessment and Plan Assessment: Impression: Acute hypoxic/hypercapnic rest or failure requiring intubation and mechanical ventilation from 02/02, extubated on 02/03 had to be reintubated and self ex tubated Recurrent left-sided pleural effusion status post thoracentesis, fluid positive for Enterobacter and Streptococcus. Left sided gram-negative pneumonia secondary to Enterobacter with a left lower lobe consolidation. Status post bronchoscopy and BAL on 02/02 and 02/05 Chronic systolic congestive heart failure with ejection fraction of 25%. Chronic obstructive lung disease. 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 Acute kidney injury, presently on hemodialysis. Type 2 diabetes with diabetic neuropathy Hypertension. Dyslipidemia. Nonischemic cardiomyopathy and LV dysfunction with previous AICD placement. Chronic pancreatitis. History of pancreatic cysts. Recommendation: Continue present treatment plan, Continue antibiotics and bronchodilators. Continue incentive spirometry. Increase activity as tolerates. Discharge planning once cleared by other consultants. Time with Patient: Less than 30
[2020-02-18 20:13] LABS: Glucose,Whole Blood 247 mg/dL (75-99)
[2020-02-18] MEDS: ATORVASTATIN 10 MG TAB PO SCH (20:41)
[2020-02-18] MEDS: INSULIN DETEMIR (LEVEMIR) 100 UNIT/ML SYR SQ SCH (20:42)
--- NOTE | 2020-02-18 23:32 | PN ---
PROGRESS NOTE DATE OF SERVICE: 02/18/2020 REASON FOR FOLLOWUP: Enterobacter pneumonia and empyema. INTERVAL HISTORY: The patient is currently afebrile. Patient is breathing more comfortably. The patient denies having any chest pain. The cough had decreased in intensity, dry in nature. No nausea, no vomiting. No abdominal pain, no diarrhea. PHYSICAL EXAMINATION: Blood pressure 130/63 with a pulse of 81, temperature 97.9. He is 95% on 2 L nasal cannula. General description is an elderly male up in the chair in no distress. RESPIRATORY SYSTEM: Unlabored breathing with decreased intensity of breath sounds. No wheeze. HEART: S1, S2. Regular rate and rhythm. ABDOMEN: Soft, no tenderness. LABS: BUN of 51, creatinine 3.58. DIAGNOSTIC IMPRESSION AND PLAN: Patient with acute pneumonia in this patient's sputum positive for Enterobacter as well as the pleural fluid. The patient is covered with Zosyn. Will like to transition to short course of cefepime through dialysis if possible versus Midline. Repeat a chest x- ray and inflammatory marker tomorrow. Continue with supportive care. MMODL / IJN: [id number] /
[2020-02-19 06:02] LABS: Glucose,Whole Blood 274 mg/dL (75-99)
[2020-02-19] MEDS: LIPASE 5,000/PROTEASE 17,000/AMYLASE 24,000 PO SCH (06:28)
[2020-02-19] MEDS: CALCIUM ACETATE 667 MG TAB PO SCH ×3 (06:29→17:13)
[2020-02-19] MEDS: INSULIN ASPART (NovoLOG) 100 UNIT/ML VIAL SQ SCH ×4 (06:29→21:02)
[2020-02-19] MEDS: PIPERACILLIN-TAZOBACTAM 3.375 GM in SODIUM CHLORIDE 0.9% 100 ML IVPB SCH ×3 (06:29→21:01)
[2020-02-19 08:19] LABS: HCT 29.5 % (39.0-53.0); HGB 9.5 gm/dL (13.0-17.5); Hypochromasia Slight; MCV 93.6 fL (80.0-100.0); Mean Platelet Volume 10.6; RBC 3.16 m/uL (4.30-5.90); RDW 14.6 % (11.5-15.5); WBC 4.8 k/uL (3.8-10.6)
[2020-02-19 08:24] LABS: Platelet Count 51 k/uL (150-450)
[2020-02-19 08:31] LABS: Albumin 3.3 g/dL (3.5-5.0); Calcium 7.6 mg/dL (8.4-10.2); Magnesium 1.9 mg/dL (1.6-2.3); Phosphorus 7.1 mg/dL (2.5-4.5); Potassium 4.1 mmol/L (3.5-5.1); Total Bilirubin 0.5 mg/dL (0.2-1.3); Total Protein 5.3 g/dL (6.3-8.2)
[2020-02-19] MEDS: IPRATROPIUM-ALBUTEROL 3 ML NEB INHALATION SCH ×4 (08:48→21:21)
[2020-02-19] MEDS: SYMBICORT 160-4.5 MCG INHALER INHALATION SCH ×2 (08:48→21:21)
[2020-02-19] MEDS: METOPROLOL SUCCINATE (ER) 25 MG TAB.ER.24H PO SCH (08:56)
[2020-02-19] MEDS: ISOSORBIDE MONONITRATE ER 30 MG TAB.ER.24H PO SCH (08:56)
[2020-02-19] MEDS: predniSONE 10 MG TAB PO SCH (08:56)
[2020-02-19] MEDS: PREGABALIN 100 MG CAP PO SCH ×2 (08:56→21:01)
[2020-02-19] MEDS: FUROSEMIDE 10 MG/ML 4 ML VIAL IV SCH (08:57)
[2020-02-19] MEDS: HEPARIN SODIUM,PORCINE 5,000 UNIT/ML 1 ML VIAL SQ SCH ×2 (08:57→17:13)
--- NOTE | 2020-02-19 09:31 | XR ---
EXAMINATION TYPE: XR chest 2V DATE OF EXAM: 02/19/2020 COMPARISON: 02/15/2020 HISTORY: 59 year-old male shortness of breath TECHNIQUE: PA and lateral views FINDINGS: Left anterior chest wall ICD generator with right ventricular lead. Left heart margin obscured by adj acent pleural parenchymal opacity. Cephalized appearance to the pulmonary vasculature. Moderate left and small to moderate right effusions persist. IMPRESSION: Persistent moderate left and [id number] right effusion with adjacent atelectasis and/or consol idation.
[2020-02-19 10:12] LABS: C Reactive Protein 10.7 mg/L (<10.0)
[2020-02-19 11:33] LABS: Glucose,Whole Blood 236 mg/dL (75-99)
--- NOTE | 2020-02-19 13:29 | P.PN ---
Subjective Principal diagnosis: CHF with COPD element The patient is a 59-year-old white male with known history of chronic pancreatitis diabetes CHF and COPD. The patient has lower extremity edema and has been being treated with dialysis. This has improved. Renal function is still poor The patient is on nasal cannula and doing better. He is much more alert and emotionally at his baseline. \ Objective - Vital Signs Vital signs: Vital Signs Temp 97.5 F L 02/19/20 11:42 Pulse 83 02/19/20 11:42 Resp 20 02/19/20 11:42 BP 143/85 02/19/20 11:42 Pulse Ox 93 L 02/19/20 11:42 Intake & Output 02/18/20 02/19/20 02/19/20 18:59 06:59 18:59 Intake Total 840 480 Output Total 3475 500 Balance -2635 -500 480 Weight 74 kg Intake: IV 80 Sodium Chloride 0.9% 1, 80 000 ml @ 10 mls/hr IV . Q24H [facility]OS[facility] Rx#:[id number] Intake, IV Titration 100 Amount Piperacillin-Tazobactam 3 100 .375 gm In Sodium Chloride 0.9% 100 ml @ 25 mls/hr IVPB Q8H JOSY Rx#: [id number] Oral 660 480 Output: Urine 475 500 Hemodialysis 3000 Other: Voiding Method Urinal Urinal # Voids 1 # Bowel Movements 1 ABP, PAP, CO, CI - Last Documented Arterial Blood Pressure 183/72 - Constitutional General appearance: Present: thin - EENT Eyes: Absent: abnormal pupil - Neck Neck: Absent: lymphadenopathy Thyroid: bilateral: normal size - Respiratory Respiratory: bilateral: diminished - Cardiovascular Rhythm: regular Heart sounds: normal: S1, S2 Abnormal Heart Sounds: Absent: S3 Gallop - Gastrointestinal General gastrointestinal: Present: soft. Absent: tenderness - Musculoskeletal Musculoskeletal: Present: generalized weakness - Labs CBC & Chem 7: 02/19/20 07:48 02/19/20 07:48 Labs: Abnormal Lab Results - Last 24 Hours (Table) 02/18/20 02/18/20 02/19/20 Range/Units 16:51 20:11 06:01 RBC (4.30-5.90) m/uL Hgb (13.0-17.5) gm/dL Hct (39.0-53.0) % Plt Count (150-450) k/uL Sodium (137-145) mmol/L BUN (9-20) mg/dL Creatinine (0.66-1.25) mg/dL Glucose (74-99) mg/dL POC Glucose (mg/dL) 261 H 247 H 274 H (75-99) mg/dL Calcium (8.4-10.2) mg/dL Phosphorus (2.5-4.5) mg/dL C-Reactive Protein (<10.0) mg/L Total Protein (6.3-8.2) g/dL Albumin (3.5-5.0) g/dL Procalcitonin (0.02-0.09) ng/mL 02/19/20 02/19/20 02/19/20 Range/Units 07:48 07:48 07:48 RBC 3.16 L (4.30-5.90) m/uL Hgb 9.5 L (13.0-17.5) gm/dL Hct 29.5 L (39.0-53.0) % Plt Count 51 L (150-450) k/uL Sodium 132 L (137-145) mmol/L BUN 57 H (9-20) mg/dL Creatinine 3.88 H (0.66-1.25) mg/dL Glucose 180 H (74-99) mg/dL POC Glucose (mg/dL) (75-99) mg/dL Calcium 7.6 L (8.4-10.2) mg/dL Phosphorus 7.1 H (2.5-4.5) mg/dL C-Reactive Protein 10.7 H (<10.0) mg/L Total Protein 5.3 L (6.3-8.2) g/dL Albumin 3.3 L (3.5-5.0) g/dL Procalcitonin 0.38 H (0.02-0.09) ng/mL 02/19/20 Range/Units 11:31 RBC (4.30-5.90) m/uL Hgb (13.0-17.5) gm/dL Hct (39.0-53.0) % Plt Count (150-450) k/uL Sodium (137-145) mmol/L BUN (9-20) mg/dL Creatinine (0.66-1.25) mg/dL Glucose (74-99) mg/dL POC Glucose (mg/dL) 236 H (75-99) mg/dL Calcium (8.4-10.2) mg/dL Phosphorus (2.5-4.5) mg/dL C-Reactive Protein (<10.0) mg/L Total Protein (6.3-8.2) g/dL Albumin (3.5-5.0) g/dL Procalcitonin (0.02-0.09) ng/mL Microbiology - Last 24 Hours (Table) 02/06/20 15:30 Acid Fast Bacilli Smear - Final Bronchial Washings - Left Acid Fast Bacilli Culture - Preliminary 02/06/20 15:30 Fungal Culture - Preliminary Bronchial Washings - Left Assessment and Plan (1) Congestive heart failure Current Visit: Yes Status: Acute Code(s): I50.9 - HEART FAILURE, UNSPECIFIED SNOMED Code(s): 94497039 (2) Hyperglycemia Current Visit: Yes Status: Acute Code(s): R73.9 - HYPERGLYCEMIA, UNSPECIFIED SNOMED Code(s): 11010804 (3) Hyponatremia Current Visit: Yes Status: Acute Code(s): E87.1 - HYPO-OSMOLALITY AND HYPONATREMIA SNOMED Code(s): 98226167 (4) Respiratory failure Current Visit: No Status: Acute Code(s): J96.90 - RESPIRATORY FAILURE, UNSP, UNSP W HYPOXIA OR HYPERCAPNIA SNOMED Code(s): 394693676 Plan: Continue supportive care Check CBC and CMP in the a.m. Prognosis is guarded secondary to his multiple comorbidities. Titrate insulin for blood sugar control. Appreciate multiple consultants input. I am concerned because of his element of renal disease requiring ultrafiltration.
--- NOTE | 2020-02-19 13:32 | P.PN ---
Subjective Patient is seen in follow-up for acute kidney injury. Oral intake is good. Denies chest pain or shortness of breath. Currently on 2 L nasal cannula. Pierson catheter was removed 02/14/20. Being monitored for retention. Urine output documented as 825 mL in the last 24 hours. Last hemodialysis February 15. Had ultrafiltration only with 3 L removed yesterday. Edema improving. Creatinine rising. Vital signs are stable. General: The patient appeared well nourished and normally developed. HEENT: Head exam is unremarkable. Lungs: Breath sounds decreased. HEART: Rate and Rhythm are regular. ABDOMEN: Soft, no distention noted. EXTREMITITES: 1-2+ edema. Scrotal edema noted. Objective - Vital Signs Vital signs: Vital Signs Temp 97.5 F L 02/19/20 11:42 Pulse 83 02/19/20 11:42 Resp 20 02/19/20 11:42 BP 143/85 02/19/20 11:42 Pulse Ox 93 L 02/19/20 11:42 Intake & Output 02/18/20 02/19/20 02/19/20 18:59 06:59 18:59 Intake Total 840 480 Output Total 3475 500 Balance -2635 -500 480 Weight 74 kg Intake: IV 80 Sodium Chloride 0.9% 1, 80 000 ml @ 10 mls/hr IV . Q24H [facility] Rx#:[id number] Intake, IV Titration 100 Amount Piperacillin-Tazobactam 3 100 .375 gm In Sodium Chloride 0.9% 100 ml @ 25 mls/hr IVPB Q8H [facility]OS[facility] Rx#: [id number] Oral 660 480 Output: Urine 475 500 Hemodialysis 3000 Other: Voiding Method Urinal Urinal # Voids 1 # Bowel Movements 1 ABP, PAP, CO, CI - Last Documented Arterial Blood Pressure 183/72 - Labs CBC & Chem 7: 02/19/20 07:48 02/19/20 07:48 Labs: Abnormal Lab Results - Last 24 Hours (Table) 02/18/20 02/18/20 02/19/20 Range/Units 16:51 20:11 06:01 RBC (4.30-5.90) m/uL Hgb (13.0-17.5) gm/dL Hct (39.0-53.0) % Plt Count (150-450) k/uL Sodium (137-145) mmol/L BUN (9-20) mg/dL Creatinine (0.66-1.25) mg/dL Glucose (74-99) mg/dL POC Glucose (mg/dL) 261 H 247 H 274 H (75-99) mg/dL Calcium (8.4-10.2) mg/dL Phosphorus (2.5-4.5) mg/dL C-Reactive Protein (<10.0) mg/L Total Protein (6.3-8.2) g/dL Albumin (3.5-5.0) g/dL Procalcitonin (0.02-0.09) ng/mL 02/19/20 02/19/20 02/19/20 Range/Units 07:48 07:48 07:48 RBC 3.16 L (4.30-5.90) m/uL Hgb 9.5 L (13.0-17.5) gm/dL Hct 29.5 L (39.0-53.0) % Plt Count 51 L (150-450) k/uL Sodium 132 L (137-145) mmol/L BUN 57 H (9-20) mg/dL Creatinine 3.88 H (0.66-1.25) mg/dL Glucose 180 H (74-99) mg/dL POC Glucose (mg/dL) (75-99) mg/dL Calcium 7.6 L (8.4-10.2) mg/dL Phosphorus 7.1 H (2.5-4.5) mg/dL C-Reactive Protein 10.7 H (<10.0) mg/L Total Protein 5.3 L (6.3-8.2) g/dL Albumin 3.3 L (3.5-5.0) g/dL Procalcitonin 0.38 H (0.02-0.09) ng/mL 02/19/20 Range/Units 11:31 RBC (4.30-5.90) m/uL Hgb (13.0-17.5) gm/dL Hct (39.0-53.0) % Plt Count (150-450) k/uL Sodium (137-145) mmol/L BUN (9-20) mg/dL Creatinine (0.66-1.25) mg/dL Glucose (74-99) mg/dL POC Glucose (mg/dL) 236 H (75-99) mg/dL Calcium (8.4-10.2) mg/dL Phosphorus (2.5-4.5) mg/dL C-Reactive Protein (<10.0) mg/L Total Protein (6.3-8.2) g/dL Albumin (3.5-5.0) g/dL Procalcitonin (0.02-0.09) ng/mL Microbiology - Last 24 Hours (Table) 02/06/20 15:30 Acid Fast Bacilli Smear - Final Bronchial Washings - Left Acid Fast Bacilli Culture - Preliminary 02/06/20 15:30 Fungal Culture - Preliminary Bronchial Washings - Left Assessment and Plan Plan: Assessment: 1. Acute kidney injury secondary to ATN secondary to sepsis and cardiorenal sy ndrome. Started on hemodialysis February 09 - last treatment 02/15. Did undergo ultrafiltration only the last 2 days. No hydronephrosis noted on kidney ultrasound. Nonoliguric. Creatinine rising. 2. Whiteout of the right lung. Possibly pneumonia. No fluid obtained with thoracentesis. Status post bronchoscopy with removal of mucous plugs. Underwent another thoracentesis on February 11 with 500 mL drained from the left pleural space. 3. Acute on chronic systolic CHF with ejection fraction of 25% with moderate mitral regurgitation. 4. Acute hypoxic and hypercapnic respiratory failure. Better. Now on 2L nasal cannula. 5. Hyperkalemia secondary to acute kidney injury and metabolic acidosis. Resolved. 6. Hyponatremia secondary to acute kidney injury. Hypervolemic. 7. Pleural space infection maintained on antibiotics; sputum culture positive for Acinetobacter. 8. Chronic kidney disease stage III with baseline creatinine in the range of 1.1-1.5. Etiology is most likely diabetic kidney disease. 9. Hypoglycemia maintained on D5W. Resolved. 10. Hyperphosphatemia secondary to acute kidney injury. Maintained on PhosLo. 11. Anemia of chronic kidney disease. Maintained on Epogen. 12. Volume overload. Improving with diuresis and ultrafiltration. Plan: Hemodialysis today. I will change Lasix to 80 mg orally twice daily. Continue to monitor renal function and urine output. Increase dose of PhosLo. Reconsult vascular surgery for permacath placement. physiotherapy practice manager to help set up outpatient hemodialysis. Monitor for renal recovery outpatient.
[2020-02-19 15:01] LABS: Basophils % (A) 0 %; Eosinophils % (A) 0 %; HCT 28.3 % (39.0-53.0); HGB 9.3 gm/dL (13.0-17.5); Hypochromasia Slight; Lymphocytes # (A) 0.3 k/uL (1.0-4.8); Lymphocytes % (A) 7 %; MCH 30.5 pg (25.0-35.0); MCHC 32.9 g/dL (31.0-37.0); MCV 92.8 fL (80.0-100.0); Mean Platelet Volume 10.4; Monocytes # (A) 0.2 k/uL (0-1.0); Monocytes % (A) 5 %; Neutrophils # (A) 3.5 k/uL (1.3-7.7); Neutrophils % (A) 86 %; RBC 3.05 m/uL (4.30-5.90); RDW 14.5 % (11.5-15.5); WBC 4.1 k/uL (3.8-10.6)
[2020-02-19 15:22] LABS: Platelet Count 47 k/uL (150-450)
[2020-02-19 16:36] LABS: Glucose,Whole Blood 232 mg/dL (75-99)
[2020-02-19] MEDS: FUROSEMIDE 80 MG TAB PO SCH (17:13)
--- NOTE | 2020-02-19 17:47 | P.PN ---
Subjective Progress Note Date: 02/19/20 Principal diagnosis: Acute on chronic hypoxic respiratory failure, multifactorial The patient is seen today February 16 2020 follow-up on the selective care unit. He is currently resting fairly comfortably in bed. He is being concern today is continued significant edema the scrotum. He did receive hemodialysis yesterday. Hemodialysis is planned for today. His creatinine is 3.51. He is less short of breath. He started 2 L/m per nasal cannula to maintain O2 saturation in low 90s. White count 7.3. Hemoglobin 9.5. Platelet count 50,000. Sodium 135. Potassium 4.3. Creatinine 2.51. He remains on Lasix 40 mg IV twice a day. Patient is seen today 02/17/2020 in follow-up on selective care unit. He is awake and alert in no acute distress. Resting more comfortably in bed. He did receive hemodialysis yesterday and again today. His scrotal swelling has improved and the patient is hoping to go home soon. He plans to stay with his sister upon discharge. He denies any worsening shortness of breath, cough or congestion. He is maintaining O2 saturation the mid 90s on 2 L/m per nasal cannula. Sodium 138. Potassium 4.4. Creatinine 2.92. He remains on ant ibiotics in the form of Zosyn for his Acinetobacter Ivy/haemol sputum. Patient was reevaluated today on 02/18/20, seems to be quite comfortable today, patient is in no distress, he is on 2 L nasal cannula, O2 saturation is 92%. Patient is hemodynamically stable, does not seem to be experiencing any labored breathing. Basic metabolic profile is normal renal functioning is worse with a BUN of 51 creatinine 3.58. His last chest x-ray on 02/15/20, showed significant improvement in his left lung collapse and his left sided airspace disease as well as pleural effusion. Cytology of the pleural effusion has been negative for malignancy. Reevaluated today, patient is receiving hemodialysis at present, denies any shortness of breath cough or wheezing, denies any chest pain, maintain on 2 L nasal cannula. Chest x-ray continues to show small left-sided pleural effusion and atelectasis. CBC is relatively normal. Electrolytes are normal. BUN is 57 creatinine is 3.88 Objective - Vital Signs Vital signs: Vital Signs Temp 98.2 F 02/19/20 16:46 Pulse 78 11/24/20 16:46 Resp 18 02/19/20 16:46 BP 111/54 02/19/20 16:46 Pulse Ox 97 02/19/20 15:48 Intake & Output 02/18/20 02/19/20 02/19/20 18:59 06:59 18:59 Intake Total 840 900 Output Total 3475 500 1999 Balance -3719 -500 -1100 Weight 74 kg Intake: IV 80 80 Sodium Chloride 0.9% 1, 80 80 000 ml @ 10 mls/hr IV . Q24H [facility] Rx#:[id number] Intake, IV Titration 100 100 Amount Piperacillin-Tazobactam 3 100 100 .375 gm In Sodium Chloride 0.9% 100 ml @ 25 mls/hr IVPB Q8H [facility] Rx#: [id number] Oral 660 720 Output: Urine 475 500 Hemodialysis 3000 2000 Other: Voiding Method Urinal Urinal # Voids 1 # Bowel Movements 1 ABP, PAP, CO, CI - Last Documented Arterial Blood Pressure 183/72 - Exam GENERAL EXAM: Alert, pleasant 59-year-old gentleman, appears older than stated age, on 2 L high flow nasal cannula, HEENT: Atraumatic, normocephalic, PERRLA, no icterus, no neck masses, no JVD, no stridor. CHEST: No chest wall deformity. LUNGS: Equal air entry with bibasilar crackles, diminished. CVS: S1 and S2 normal with no audible murmur, regular rhythm. ABDOMEN: No hepatosplenomegaly, normal bowel sounds, no guarding or rigidity. SPINE: No scoliosis or deformity SKIN: No rashes CENTRAL NERVOUS SYSTEM: No focal deficits, tone is normal in all 4 extremities. EXTREMITIES: 1+ bipedal edema noted. Good pulses bilaterally - Labs CBC & Chem 7: 02/19/20 14:36 02/19/20 07:48 Labs: Abnormal Lab Results - Last 24 Hours (Table) 02/18/20 02/19/20 02/19/20 Range/Units 20:11 06:01 07:48 RBC (4.30-5.90) m/uL Hgb (13.0-17.5) gm/dL Hct (39.0-53.0) % Plt Count (150-450) k/uL Lymphocytes # (1.0-4.8) k/uL Sodium 132 L (137-145) mmol/L BUN 57 H (9-20) mg/dL Creatinine 3.88 H (0.66-1.25) mg/dL Glucose 180 H (74-99) mg/dL POC Glucose (mg/dL) 247 H 274 H (75-99) mg/dL Calcium 7.6 L (8.4-10.2) mg/dL Phosphorus 7.1 H (2.5-4.5) mg/dL C-Reactive Protein 10.7 H (<10.0) mg/L Total Protein 5.3 L (6.3-8.2) g/dL Albumin 3.3 L (3.5-5.0) g/dL Procalcitonin (0.02-0.09) ng/mL 02/19/20 02/19/20 02/19/20 Range/Units 07:48 07:48 11:31 RBC 3.16 L (4.30-5.90) m/uL Hgb 9.5 L (13.0-17.5) gm/dL Hct 29.5 L (39.0-53.0) % Plt Count 51 L (150-450) k/uL Lymphocytes # (1.0-4.8) k/uL Sodium (137-145) mmol/L BUN (9-20) mg/dL Creatinine (0.66-1.25) mg/dL Glucose (74-99) mg/dL POC Glucose (mg/dL) 236 H (75-99) mg/dL Calcium (8.4-10.2) mg/dL Phosphorus (2.5-4.5) mg/dL C-Reactive Protein (<10.0) mg/L Total Protein (6.3-8.2) g/dL Albumin (3.5-5.0) g/dL Procalcitonin 0.38 H (0.02-0.09) ng/mL 02/19/20 02/19/20 Range/Units 14:36 16:35 RBC 3.05 L (4.30-5.90) m/uL Hgb 9.3 L (13.0-17.5) gm/dL Hct 28.3 L (39.0-53.0) % Plt Count 47 L (150-450) k/uL Lymphocytes # 0.3 L (1.0-4.8) k/uL Sodium (137-145) mmol/L BUN (9-20) mg/dL Creatinine (0.66-1.25) mg/dL Glucose (74-99) mg/dL POC Glucose (mg/dL) 232 H (75-99) mg/dL Calcium (8.4-10.2) mg/dL Phosphorus (2.5-4.5) mg/dL C-Reactive Protein (<10.0) mg/L Total Protein (6.3-8.2) g/dL Albumin (3.5-5.0) g/dL Procalcitonin (0.02-0.09) ng/mL Microbiology - Last 24 Hours (Table) 02/06/20 15:30 Acid Fast Bacilli Smear - Final Bronchial Washings - Left Acid Fast Bacilli Culture - Preliminary 02/06/20 15:30 Fungal Culture - Preliminary Bronchial Washings - Left Assessment and Plan Assessment: Impression: Acute hypoxic/hypercapnic rest or failure requiring intubation and mechanical ventilation from 02/02, extubated on 02/03 had to be reintubated and self extubated Recurrent left-sided pleural effusion status post thoracentesis, fluid positive for Enterobacter and Streptococcus. Left sided gram-negative pneumonia secondary to Enterobacter with a left lower lobe consolidation. Status post bronchoscopy and BAL on 02/02 and 02/05 Chronic systolic congestive heart failure with ejection fraction of 25%. Chronic obstructive lung disease. 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 Acute kidney injury, presently on hemodialysis. Type 2 diabetes with diabetic neuropathy Hypertension. Dyslipidemia. Nonischemic cardiomyopathy and LV dysfunction with previous AICD placement. Chronic pancreatitis. History of pancreatic cysts. Recommendation: Continue present treatment plan, Continue antibiotics and bronchodilators. Continue incentive spirometry. Increase activity as tolerates. Consider discharge planning if cleared by other consultants. Will follow on when necessary basis. Time with Patient: Less than 30
[2020-02-19 20:52] LABS: Glucose,Whole Blood 307 mg/dL (75-99)
[2020-02-19] MEDS: ATORVASTATIN 10 MG TAB PO SCH (21:01)
[2020-02-19] MEDS: INSULIN DETEMIR (LEVEMIR) 100 UNIT/ML SYR SQ SCH (21:02)
[2020-02-19] MEDS: SODIUM CHLORIDE 0.9% 1,000 ML IV SCH (22:27)
--- NOTE | 2020-02-19 22:55 | PN ---
PROGRESS NOTE DATE OF SERVICE: 02/19/2020 REASON FOR FOLLOWUP: Enterobacter pneumonia and empyema. INTERVAL HISTORY: The patient is currently afebrile. The patient is breathing comfortably. The patient denies having chest pain. Minimal cough. No nausea, no vomiting. No abdominal pain or diarrhea. PHYSICAL EXAMINATION: Blood pressure 111/54 with a pulse of 78, temperature 98.2. He is 97% on 4 L nasal cannula. General description is a middle-aged male up in the chair in no distress. RESPIRATORY SYSTEM: Unlabored breathing with decreased breath sounds at the base. No wheeze. HEART: S1, S2. Regular rate and rhythm. ABDOMEN: Soft. No tenderness. LAB: Hemoglobin is 9.3, white count 4.1. CRP is down to 10.7. DIAGNOSTIC IMPRESSION AND PLAN: Patient with enterobacter pneumonia and possible empyema, status post thoracocentesis x2. The patient has received more than 2 weeks of IV antibiotic therapy. In order to preserve his IV access site for future dialysis, we will hold on adding a PICC or midline. Will switch him over to oral Cipro for another 2 weeks with close outpatient followup. MMODL / IJN: [id number] /
[2020-02-20] MEDS: HEPARIN SODIUM,PORCINE 5,000 UNIT/ML 1 ML VIAL SQ SCH ×3 (00:46→16:51)
[2020-02-20 05:59] LABS: Glucose,Whole Blood 95 mg/dL (75-99)
[2020-02-20] MEDS: INSULIN ASPART (NovoLOG) 100 UNIT/ML VIAL SQ SCH ×4 (06:08→22:04)
[2020-02-20] MEDS: PIPERACILLIN-TAZOBACTAM 3.375 GM in SODIUM CHLORIDE 0.9% 100 ML IVPB SCH ×3 (06:21→22:17)
[2020-02-20] MEDS ORDERED: SODIUM CHLORIDE 0.9% 50 ML BAG ONE (07:07)
[2020-02-20] MEDS ORDERED: DESMOPRESSIN ACETATE 4 MCG/ML VIAL (MDV) ONE (07:07)
[2020-02-20] MEDS: SYMBICORT 160-4.5 MCG INHALER INHALATION SCH ×3 (07:24→20:20)
[2020-02-20] MEDS: IPRATROPIUM-ALBUTEROL 3 ML NEB INHALATION SCH ×5 (07:24→20:20)
[2020-02-20] MEDS ORDERED: LIDOCAINE 1% INJ 10MG/ML (20 ML MDV) ONE ×2 (07:25→07:56)
[2020-02-20] MEDS: MIDAZOLAM 2 MG/2 ML VIAL IV ONE ×2 (07:46→08:10)
[2020-02-20] MEDS ORDERED: LIDOCAINE 1% INJ 10MG/ML (20 ML MDV) SQ ONE ×2 (07:50→07:57)
[2020-02-20] MEDS ORDERED: HEPARIN SODIUM 1,000 UN/ML (10ML VL) ONE (07:53)
[2020-02-20] MEDS ORDERED: IV FLUID CONTINUATION 500 ML IV ONE (07:53)
--- NOTE | 2020-02-20 09:35 | XR ---
EXAMINATION TYPE: XR chest 1V portable DATE OF EXAM: 02/20/2020 HISTORY: Shortness of breath. COMPARISON: 02/19/2020 TECHNIQUE: Single view of the chest is submitted. FINDINGS: Right sided internal jugular hemodialysis catheter is in place with its distal tip overlying the SVC. No evidence for pneumothorax. Near complete opacification left hemithorax is a new finding. Right basilar opacity likely reflects a combination of atelectasis and pleural effusion. Pulmonary venous congestion right upper lobe. The heart is stable. Hilar and mediastinal structures are within normal limits. Degenerative changes are seen of the dorsal spine. IMPRESSION: 1. Near complete opacification left hemithorax is a new finding. Right basilar opacity likely reflec ts a combination of atelectasis and pleural effusion. Pulmonary venous congestion right upper lobe.
[2020-02-20 10:14] LABS: HGB 9.9 gm/dL (13.0-17.5); Hypochromasia Slight; MCV 93.7 fL (80.0-100.0); Mean Platelet Volume 10.1; RBC 3.42 m/uL (4.30-5.90); RDW 14.6 % (11.5-15.5); WBC 4.6 k/uL (3.8-10.6)
--- NOTE | 2020-02-20 10:19 | PCN ---
PROCEDURE NOTE PREOPERATIVE DIAGNOSIS: Acute on chronic renal failure. POSTOPERATIVE DIAGNOSIS: Acute on chronic renal failure. PROCEDURE: 1. Ultrasound-guided placement of a 23 cm dialysis catheter right jugular approach. 2. Removal of the dialysis catheter from the femoral vein. SEDATION TIME: 26 minutes. This patient was brought to the test lab technician with local and IV sedation. Right side of the neck and chest was prepped and groin was prepped and draped in sterile manner; 1% lidocaine was infiltrated for the neck area. Ultrasound-guided micropuncture introducer to the right jugular vein and micropuncture guidewire was passed and a 4 Ukrainian dilator advanced on top of the guidewire. After that, incision was made. Through the incision, we created a tunnel 23 cm dialysis catheter brought to the neck. After that, we passed a regular guidewire which was locked within the inferior vena cava. The dilator was advanced on the top of the guidewire and then the sheath was advanced, through the sheath we introduced the dialysis catheter. The tip of the catheter in the superior vena cava at the junction. Sheath removed. Flushed with heparin saline and hep-locked and secured with 3-0 nylon. After that, the groin was prepped and dialysis catheter removed from the femoral vein. Pressure was held. Patient tolerated the procedure well. MMODL / IJN: [id number] /
[2020-02-20 10:21] LABS: Platelet Count 55 k/uL (150-450)
[2020-02-20 10:48] LABS: Albumin 3.2 g/dL (3.5-5.0); Calcium 7.7 mg/dL (8.4-10.2); Potassium 3.9 mmol/L (3.5-5.1); Total Bilirubin 0.4 mg/dL (0.2-1.3); Total Protein 5.3 g/dL (6.3-8.2)
[2020-02-20] MEDS ORDERED: DEXTROSE 50% SYRINGE 50 ML IVP ONE (11:12)
[2020-02-20] MEDS: LIPASE 5,000/PROTEASE 17,000/AMYLASE 24,000 PO SCH (11:20)
[2020-02-20] MEDS: CALCIUM ACETATE 667 MG TAB PO SCH ×3 (11:20→16:52)
[2020-02-20 11:22] LABS: Glucose,Whole Blood 47 mg/dL (75-99)
[2020-02-20 11:24] LABS: Glucose,Whole Blood 102 mg/dL (75-99)
[2020-02-20 11:49] LABS: Glucose,Whole Blood 90 mg/dL (75-99)
[2020-02-20] MEDS: FUROSEMIDE 80 MG TAB PO SCH ×2 (12:01→16:52)
[2020-02-20] MEDS: PREGABALIN 100 MG CAP PO SCH ×2 (12:02→22:17)
--- NOTE | 2020-02-20 12:47 | P.PN ---
Subjective Principal diagnosis: CHF with COPD element The patient is a 59-year-old white male with known history of chronic pancreatitis diabetes CHF and COPD. The patient has lower extremity edema and has been being treated with dialysis. This has improved. Renal function is still poor.The patient has been taken for permanent type catheter. The patient is on nasal cannula and doing better. He is much more alert and emotionally at his baseline. \ Objective - Vital Signs Vital signs: Vital Signs Temp 96.4 F L 02/20/20 09:30 Pulse 82 02/20/20 11:11 Resp 18 02/20/20 09:30 BP 96/60 02/20/20 09:30 Pulse Ox 93 L 02/20/20 11:00 Intake & Output 02/19/20 02/20/20 02/20/20 18:59 06:59 18:59 Intake Total 900 240 60 Output Total 2000 Balance -1100 240 60 Weight 73.5 kg Intake: IV 80 60 Invasive Line 9 10 Sodium Chloride 0.9% 1, 80 000 ml @ 10 mls/hr IV . Q24H JOSY Rx#:[id number] Intake, IV Titration 100 Amount Piperacillin-Tazobactam 3 100 .375 gm In Sodium Chloride 0.9% 100 ml @ 25 mls/hr IVPB Q8H JOSY Rx#: [id number] Oral 720 240 0 Output: Hemodialysis 1999 Other: # Voids 0 # Bowel Movements 0 ABP, PAP, CO, CI - Last Documented Arterial Blood Pressure 183/72 - Constitutional General appearance: Present: thin - EENT Eyes: Absent: abnormal pupil - Neck Neck: Absent: lymphadenopathy - Respiratory Respiratory: bilateral: diminished - Cardiovascular Rhythm: regular Heart sounds: normal: S1, S2 Abnormal Heart Sounds: Absent: S3 Gallop - Gastrointestinal General gastrointestinal: Present: soft. Absent: tenderness - Integumentary Integumentary: Absent: cellulitis - Neurologic Neurologic: Absent: focal deficits - Musculoskeletal Musculoskeletal: Present: generalized weakness - Labs CBC & Chem 7: 02/20/20 09:29 02/20/20 09:29 Labs: Abnormal Lab Results - Last 24 Hours (Table) 02/19/20 02/19/20 02/19/20 Range/Units 14:36 16:35 20:50 RBC 3.05 L (4.30-5.90) m/uL Hgb 9.3 L (13.0-17.5) gm/dL Hct 28.3 L (39.0-53.0) % Plt Count 47 L (150-450) k/uL Lymphocytes # 0.3 L (1.0-4.8) k/uL Sodium (137-145) mmol/L BUN (9-20) mg/dL Creatinine (0.66-1.25) mg/dL Glucose (74-99) mg/dL POC Glucose (mg/dL) 232 H 307 H (75-99) mg/dL Calcium (8.4-10.2) mg/dL Total Protein (6.3-8.2) g/dL Albumin (3.5-5.0) g/dL 02/20/20 02/20/20 02/20/20 Range/Units 09:29 09:29 11:11 RBC 3.42 L (4.30-5.90) m/uL Hgb 9.9 L (13.0-17.5) gm/dL Hct 32.0 L (39.0-53.0) % Plt Count 55 L (150-450) k/uL Lymphocytes # (1.0-4.8) k/uL Sodium 135 L (137-145) mmol/L BUN 40 H (9-20) mg/dL Creatinine 3.30 H (0.66-1.25) mg/dL Glucose 47 L* (74-99) mg/dL POC Glucose (mg/dL) 47 L (75-99) mg/dL Calcium 7.7 L (8.4-10.2) mg/dL Total Protein 5.3 L (6.3-8.2) g/dL Albumin 3.2 L (3.5-5.0) g/dL 02/20/20 Range/Units 11:23 RBC (4.30-5.90) m/uL Hgb (13.0-17.5) gm/dL Hct (39.0-53.0) % Plt Count (150-450) k/uL Lymphocytes # (1.0-4.8) k/uL Sodium (137-145) mmol/L BUN (9-20) mg/dL Creatinine (0.66-1.25) mg/dL Glucose (74-99) mg/dL POC Glucose (mg/dL) 102 H (75-99) mg/dL Calcium (8.4-10.2) mg/dL Total Protein (6.3-8.2) g/dL Albumin (3.5-5.0) g/dL Assessment and Plan (1) Congestive heart failure Current Visit: Yes Status: Acute Code(s): I50.9 - HEART FAILURE, UNSPECIFIED SNOMED Code(s): 26071999 (2) Hyperglycemia Current Visit: Yes Status: Acute Code(s): R73.9 - HYPERGLYCEMIA, UNSPECIFIED SNOMED Code(s): 88348796 (3) Hyponatremia Current Visit: Yes Status: Acute Code(s): E87.1 - HYPO-OSMOLALITY AND HYPONATREMIA SNOMED Code(s): 79827933 (4) Respiratory failure Current Visit: No Status: Acute Code(s): J96.90 - RESPIRATORY FAILURE, UNSP, UNSP W HYPOXIA OR HYPERCAPNIA SNOMED Code(s): 331410626 Plan: Continue supportive care Check CBC and CMP in the a.m. Prognosis is guarded secondary to his multiple comorbidities. Titrate insulin for blood sugar control. Appreciate multiple consultants input. I am concerned because of his element of renal disease requiring ultrafiltration. Appreciate multiple consultants input. See orders otherwise Dr. Morris's group will be covering for the weekeend
[2020-02-20 12:59] LABS: Glucose,Whole Blood 139 mg/dL (75-99)
[2020-02-20] MEDS: predniSONE 10 MG TAB PO SCH (13:34)
[2020-02-20] MEDS ORDERED: DESMOPRESSIN ACETATE 22 MCG in SODIUM CHLORIDE 0.9% 50 ML IVPB ONE (13:36)
[2020-02-20] MEDS: DARBEPOETIN ALFA 40 MCG/0.4 ML SYRINGE SQ SCH (13:48)
--- NOTE | 2020-02-20 14:43 | P.PN ---
Subjective Patient is seen in follow-up for acute kidney injury. Oral intake is good. Denies chest pain or shortness of breath. Currently on 5 L high flow nasal cannula. Pierson catheter was removed 02/14/20. Bladder scan earlier today revealed over 500 mL of urine. He will be undergoing a straight catheterization now. Had a permacath placed this morning with blood oozing from the site. Patient has been quite tired post catheter placement. Edema improved with ultrafiltration. Vital signs are stable. General: The patient appeared well nourished and normally developed. HEENT: Head exam is unremarkable. Lungs: Breath sounds decreased. HEART: Rate and Rhythm are regular. ABDOMEN: Soft, no distention noted. EXTREMITITES: 1+ edema. Objective - Vital Signs Vital signs: Vital Signs Temp 96.0 F L 02/20/20 14:09 Pulse 82 02/20/20 11:11 Resp 18 02/20/20 09:30 BP 96/60 02/20/20 09:30 Pulse Ox 93 L 02/20/20 11:00 Intake & Output 02/19/20 02/20/20 02/20/20 18:59 06:59 18:59 Intake Total 900 240 160 Output Total 2000 600 Balance -1100 240 -440 Weight 73.5 kg Intake: IV 80 60 Invasive Line 9 10 Sodium Chloride 0.9% 1, 80 000 ml @ 10 mls/hr IV . Q24H JOSY Rx#:[id number] Intake, IV Titration 100 Amount Piperacillin-Tazobactam 3 100 .375 gm In Sodium Chloride 0.9% 100 ml @ 25 mls/hr IVPB Q8H JOSY Rx#: [id number] Oral 720 240 100 Output: Urine 600 Straight 600 Hemodialysis 2000 Other: # Voids 0 # Bowel Movements 0 ABP, PAP, CO, CI - Last Documented Arterial Blood Pressure 183/72 - Labs CBC & Chem 7: 02/20/20 09:29 02/20/20 09:29 Labs: Abnormal Lab Results - Last 24 Hours (Table) 02/19/20 02/19/20 02/19/20 Range/Units 14:36 16:35 20:50 RBC 3.05 L (4.30-5.90) m/uL Hgb 9.3 L (13.0-17.5) gm/dL Hct 28.3 L (39.0-53.0) % Plt Count 47 L (150-450) k/uL Lymphocytes # 0.3 L (1.0-4.8) k/uL Sodium (137-145) mmol/L BUN (9-20) mg/dL Creatinine (0.66-1.25) mg/dL Glucose (74-99) mg/dL POC Glucose (mg/dL) 232 H 307 H (75-99) mg/dL Calcium (8.4-10.2) mg/dL Total Protein (6.3-8.2) g/dL Albumin (3.5-5.0) g/dL 02/20/20 02/20/20 02/20/20 Range/Units 09:29 09:29 11:11 RBC 3.42 L (4.30-5.90) m/uL Hgb 9.9 L (13.0-17.5) gm/dL Hct 32.0 L (39.0-53.0) % Plt Count 55 L (150-450) k/uL Lymphocytes # (1.0-4.8) k/uL Sodium 135 L (137-145) mmol/L BUN 40 H (9-20) mg/dL Creatinine 3.30 H (0.66-1.25) mg/dL Glucose 47 L* (74-99) mg/dL POC Glucose (mg/dL) 47 L (75-99) mg/dL Calcium 7.7 L (8.4-10.2) mg/dL Total Protein 5.3 L (6.3-8.2) g/dL Albumin 3.2 L (3.5-5.0) g/dL 02/20/20 02/20/20 Range/Units 11:23 12:57 RBC (4.30-5.90) m/uL Hgb (13.0-17.5) gm/dL Hct (39.0-53.0) % Plt Count (150-450) k/uL Lymphocytes # (1.0-4.8) k/uL Sodium (137-145) mmol/L BUN (9-20) mg/dL Creatinine (0.66-1.25) mg/dL Glucose (74-99) mg/dL POC Glucose (mg/dL) 102 H 139 H (75-99) mg/dL Calcium (8.4-10.2) mg/dL Total Protein (6.3-8.2) g/dL Albumin (3.5-5.0) g/dL Assessment and Plan Plan: Assessment: 1. Acute kidney injury secondary to ATN secondary to sepsis and cardiorenal syndrome. Started on hemodialysis February 09. Did undergo some treatments of ultrafiltration only. No hydronephrosis noted on kidney ultrasound. 2. Whiteout of the right lung. Possibly pneumonia. No fluid obtained with thoracentesis. Status post bronchoscopy with removal of mucous plugs. Underwent another thoracentesis on February 11 with 500 mL drained from the left pleural space. 3. Acute on chronic systolic CHF with ejection fraction of 25% with moderate mitral regurgitation. 4. Acute hypoxic and hypercapnic respiratory failure. Better. Now on 5L nasal cannula. 5. Hyperkalemia secondary to acute kidney injury and metabolic acidosis. Resolved. 6. Hyponatremia secondary to acute kidney injury. Hypervolemic. Better. 7. Pleural space infection maintained on antibiotics; sputum culture positive for Acinetobacter. 8. Chronic kidney disease stage III with baseline creatinine in the range of 1.1-1.5. Etiology is most likely diabetic kidney disease. 9. Hypoglycemia s/p D5W. Better. 10. Hyperphosphatemia secondary to acute kidney injury. Maintained on PhosLo. 11. Anemia of chronic kidney disease. Maintained on Epogen. 12. Volume overload. Improving with diuresis and ultrafiltration. 13. Urinary retention. Bladder scan revealed over 500 mL urine earlier today. 14. Oozing from the permacath site. The catheter was placed this morning. Plan: Currently seen was undergoing hemodialysis. Next treatment on Tuesday. Straight catheterization now. Monitor serial bladder scans and to insert Pierson catheter if has persistent retention. Maintain Lasix 80 mg orally twice daily. IV DDAVP today. Vascular surgery notified of oozing from the catheter site. Continue to monitor renal function and urine output. Monitor for renal recovery outpatient. Add Flomax.
[2020-02-20 15:45] LABS: Basophils % (A) 1 %; Eosinophils # (A) 0.1 k/uL (0-0.7); Eosinophils % (A) 2 %; HCT 29.6 % (39.0-53.0); HGB 9.6 gm/dL (13.0-17.5); Hypochromasia Slight; Lymphocytes # (A) 0.4 k/uL (1.0-4.8); Lymphocytes % (A) 13 %; MCHC 32.6 g/dL (31.0-37.0); Mean Platelet Volume 9.9; Monocytes # (A) 0.1 k/uL (0-1.0); Monocytes % (A) 3 %; Neutrophils # (A) 2.8 k/uL (1.3-7.7); Neutrophils % (A) 81 %; RBC 3.22 m/uL (4.30-5.90); RDW 14.5 % (11.5-15.5); WBC 3.4 k/uL (3.8-10.6)
[2020-02-20 15:49] LABS: Platelet Count 43 k/uL (150-450)
[2020-02-20] MEDS: METOPROLOL SUCCINATE (ER) 25 MG TAB.ER.24H PO SCH (16:18)
[2020-02-20] MEDS: ISOSORBIDE MONONITRATE ER 30 MG TAB.ER.24H PO SCH (16:18)
--- NOTE | 2020-02-20 16:27 | IR ---
EXAMINATION TYPE: IR cvc insert central tunneled DATE OF EXAM: 02/20/2020 COMPARISON: NONE HISTORY: Renal failure TECHNIQUE: Fluoroscopy. FINDINGS: Fluoroscopic guidance was provided during procedure for performing physician. A total of 0.6 minutes of fluoroscopic time was utilized during the procedure and 111 images were acquired. IMPRESSION: As Above.
[2020-02-20] MEDS: SODIUM CHLORIDE 0.9% 1,000 ML IV SCH (16:53)
[2020-02-20 17:07] LABS: Glucose,Whole Blood 101 mg/dL (75-99)
[2020-02-20 20:59] LABS: Glucose,Whole Blood 131 mg/dL (75-99)
[2020-02-20] MEDS: ATORVASTATIN 10 MG TAB PO SCH (22:17)
[2020-02-20] MEDS: INSULIN DETEMIR (LEVEMIR) 100 UNIT/ML SYR SQ SCH (22:18)
--- NOTE | 2020-02-21 00:12 | PN ---
PROGRESS NOTE DATE OF SERVICE: 02/20/2020 REASON FOR FOLLOWUP: 1. Enterobacter pneumonia and empyema. 2. Positive sputum culture with Enterobacter likely colonization/contamination. INTERVAL HISTORY: The patient is currently afebrile. The patient was evaluated on rounds this morning. The patient came back after Perm-A-Cath placement. Has received and lethargic and unable to provide any history. No vomiting, diarrhea or any other change reported by the nursing staff. PHYSICAL EXAMINATION: Blood pressure 148/61 with a pulse of 88. Temperature 98.6. He is 96% on 5 L nasal cannula. General description is a middle-aged male lying in bed in no distress. Respiratory system: Unlabored breathing, decreased breath sounds at the base. No wheeze. Heart S1, S2. Regular rate and rhythm. ABDOMEN: Soft, no tenderness. LABS: Hemoglobin 9.8, white count 8.4. Chest x-ray with pneumothorax. DIAGNOSTIC IMPRESSION AND PLAN: 1. Patient with Enterobacter pneumonia empyema in this patient who is status post bronchoscopy and thoracentesis, those cultures positive for Enterobacter. Patient covered with Zosyn, to continue. Now with chest x-ray showing complete opacification. Patient may benefit from repeat bronchoscopy and pulmonary evaluation. 2. Positive sputum with Acinetobacter, likely colonization as the patient clinically improved without getting treatment for the same. MMODL / IJN: [id number] /
[2020-02-21] MEDS: HEPARIN SODIUM,PORCINE 5,000 UNIT/ML 1 ML VIAL SQ SCH ×3 (00:15→17:00)
[2020-02-21] MEDS: PIPERACILLIN-TAZOBACTAM 3.375 GM in SODIUM CHLORIDE 0.9% 100 ML IVPB SCH ×3 (04:24→22:03)
[2020-02-21 06:05] LABS: Glucose,Whole Blood 220 mg/dL (75-99)
[2020-02-21] MEDS: LIPASE 5,000/PROTEASE 17,000/AMYLASE 24,000 PO SCH (06:33)
[2020-02-21] MEDS: INSULIN ASPART (NovoLOG) 100 UNIT/ML VIAL SQ SCH ×4 (06:33→22:03)
[2020-02-21] MEDS: CALCIUM ACETATE 667 MG TAB PO SCH ×3 (06:33→17:00)
[2020-02-21] MEDS: SYMBICORT 160-4.5 MCG INHALER INHALATION SCH ×2 (08:27→21:37)
[2020-02-21] MEDS: IPRATROPIUM-ALBUTEROL 3 ML NEB INHALATION SCH ×4 (08:27→21:36)
[2020-02-21] MEDS: ALPRAZolam 0.25 MG TAB PO PRN (09:53)
[2020-02-21] MEDS: PREGABALIN 100 MG CAP PO SCH (09:53)
[2020-02-21] MEDS: FUROSEMIDE 80 MG TAB PO SCH ×2 (09:54→17:00)
[2020-02-21] MEDS: DOCUSATE 100 MG CAP PO PRN (09:54)
[2020-02-21] MEDS: METOPROLOL SUCCINATE (ER) 25 MG TAB.ER.24H PO SCH (09:54)
[2020-02-21] MEDS: predniSONE 10 MG TAB PO SCH (09:54)
[2020-02-21] MEDS: ISOSORBIDE MONONITRATE ER 30 MG TAB.ER.24H PO SCH (10:08)
[2020-02-21 10:49] LABS: HCT 29.4 % (39.0-53.0); HGB 9.4 gm/dL (13.0-17.5); Hypochromasia Marked; MCH 30.4 pg (25.0-35.0); MCHC 31.9 g/dL (31.0-37.0); MCV 95.5 fL (80.0-100.0); RBC 3.07 m/uL (4.30-5.90); RDW 14.8 % (11.5-15.5); WBC 4.6 k/uL (3.8-10.6)
[2020-02-21 10:52] LABS: Platelet Count 47 k/uL (150-450)
[2020-02-21 10:57] LABS: Albumin 3.7 g/dL (3.5-5.0); Calcium 7.7 mg/dL (8.4-10.2); Potassium 4.5 mmol/L (3.5-5.1); Total Bilirubin 0.5 mg/dL (0.2-1.3); Total Protein 5.6 g/dL (6.3-8.2)
[2020-02-21] MEDS: SODIUM CHLORIDE 0.9% 1,000 ML IV SCH (11:35)
[2020-02-21] MEDS: TAMSULOSIN 0.4 MG CAP.ER.24H PO SCH (11:35)
[2020-02-21 12:05] LABS: Glucose,Whole Blood 206 mg/dL (75-99)
[2020-02-21 12:13] LABS: Glucose,Whole Blood 215 mg/dL (75-99)
--- NOTE | 2020-02-21 12:45 | P.PN ---
Subjective Progress Note Date: 02/21/20 Follow-up for acute kidney injury on dialysis. On oxygen. 600 ML's of urine in the last 24 hours. Objective - Vital Signs Vital signs: Vital Signs Temp 97.6 F 02/21/20 11:05 Pulse 98 02/21/20 11:05 Resp 18 02/21/20 11:05 BP 113/58 02/21/20 11:05 Pulse Ox 94 L 02/21/20 11:05 Intake & Output 02/20/20 02/21/20 02/21/20 18:59 06:59 18:59 Intake Total 170 840 600 Output Total 1050 0 Balance -880 840 600 Weight 74.4 kg Intake: IV 70 Invasive Line 9 20 Oral 100 840 600 Output: Urine 600 0 Straight 600 Hemodialysis 450 Other: Voiding Method Urinal Urinal # Voids 0 # Bowel Movements 0 ABP, PAP, CO, CI - Last Documented Arterial Blood Pressure 183/72 - Exam No acute distress S1-S2 heard Decreased breath sounds Trace edema - Labs CBC & Chem 7: 02/21/20 08:30 02/21/20 08:30 Labs: Abnormal Lab Results - Last 24 Hours (Table) 02/20/20 02/20/20 02/20/20 Range/Units 12:57 15:23 17:01 WBC 3.4 L (3.8-10.6) k/uL RBC 3.22 L (4.30-5.90) m/uL Hgb 9.6 L (13.0-17.5) gm/dL Hct 29.6 L (39.0-53.0) % Plt Count 43 L (150-450) k/uL Lymphocytes # 0.4 L (1.0-4.8) k/uL BUN (9-20) mg/dL Creatinine (0.66-1.25) mg/dL Glucose (74-99) mg/dL POC Glucose (mg/dL) 139 H 101 H (75-99) mg/dL Calcium (8.4-10.2) mg/dL Total Protein (6.3-8.2) g/dL 02/20/20 02/21/20 02/21/20 Range/Units 20:53 06:03 08:30 WBC (3.8-10.6) k/uL RBC 3.07 L (4.30-5.90) m/uL Hgb 9.4 L (13.0-17.5) gm/dL Hct 29.4 L (39.0-53.0) % Plt Count 47 L (150-450) k/uL Lymphocytes # (1.0-4.8) k/uL BUN (9-20) mg/dL Creatinine (0.66-1.25) mg/dL Glucose (74-99) mg/dL POC Glucose (mg/dL) 131 H 220 H (75-99) mg/dL Calcium (8.4-10.2) mg/dL Total Protein (6.3-8.2) g/dL 02/21/20 02/21/20 02/21/20 Range/Units 08:30 11:43 12:12 WBC (3.8-10.6) k/uL RBC (4.30-5.90) m/uL Hgb (13.0-17.5) gm/dL Hct (39.0-53.0) % Plt Count (150-450) k/uL Lymphocytes # (1.0-4.8) k/uL BUN 39 H (9-20) mg/dL Creatinine 3.38 H (0.66-1.25) mg/dL Glucose 211 H (74-99) mg/dL POC Glucose (mg/dL) 206 H 215 H (75-99) mg/dL Calcium 7.7 L (8.4-10.2) mg/dL Total Protein 5.6 L (6.3-8.2) g/dL Assessment and Plan Assessment: #1 nonoliguric acute kidney injury secondary to ischemic ATN and cardiorenal syndrome. Started on hemodialysis 02/10/2020. #2 chronic kidney disease stage III secondary to nephrosclerosis/diabetic kidney disease with a baseline creatinine of 1.1-1.5 MG per DL. #3 systolic CHF with EF of 25% #4 volume overload #5 hyperkalemia resolved with dialysis #6 hypoxic respiratory failure on oxygen #7 Enterobacter pneumonia Plan: #1 hemodialysis MWF schedule. Next treatment on Tuesday. #2 monitor strict ins and outs for renal recovery #3 avoid nephrotoxic agents
--- NOTE | 2020-02-21 14:06 | P.PN ---
Subjective Progress Note Date: 02/21/20 HISTORY OF PRESENT ILLNESS: Patient examined this morning at the bedside. Cardiology was reconsulted yesterday secondary to hypotension. Patient had a recorded blood pressure of 85/53. Patient is currently receiving 80 mg Lasix twice a day, 30 mg Imdur daily, and metoprolol 25 mg daily PHYSICAL EXAM: VITAL SIGNS: Reviewed. GENERAL: Well-developed in no acute distress. NECK: Supple. No JVD or thyromegaly LUNGS: Respirations even and unlabored. Lungs diminished. HEART: Regular rate and rhythm. S1 and S2 heard. EXTREMITIES: Normal range of motion. No clubbing or cyanosis. Peripheral pulses intact. No lower extremity edema ASSESSMENT: Acute on chronic hypoxic and hypercapnic respiratory failure requiring mechanical ventilation Acute exacerbation of systolic congestive heart failure Acute on chronic kidney disease, on hemodialysis Hypertension Hyperlipidemia Diabetes mellitus, type II History of nonischemic cardiomyopathy with previous AICD placement, EF 25-30% Hypotension PLAN: Patients blood pressure improved today. Last reading 113/58 Decrease Imdur to 15mg daily Continue to monitor BP Nurse practitioner note has been reviewed by physician. Signing provider agrees with the documented findings, assessment, and plan of care. Objective - Vital Signs Vital signs: Vital Signs Temp 97.6 F 02/21/20 11:05 Pulse 98 02/21/20 11:05 Resp 18 02/21/20 11:05 BP 113/58 02/21/20 11:05 Pulse Ox 94 L 02/21/20 11:05 Intake & Output 02/20/20 02/21/20 02/21/20 18:59 06:59 18:59 Intake Total 170 840 600 Output Total 1050 0 Balance -880 840 600 Weight 74.4 kg Intake: IV 70 Invasive Line 9 20 Oral 100 840 600 Output: Urine 600 0 Straight 600 Hemodialysis 450 Other: Voiding Method Urinal Urinal # Voids 0 # Bowel Movements 0 ABP, PAP, CO, CI - Last Documented Arterial Blood Pressure 183/72 - Labs CBC & Chem 7: 02/21/20 08:30 02/21/20 08:30 Labs: Abnormal Lab Results - Last 24 Hours (Table) 02/20/20 02/20/20 02/20/20 Range/Units 15:23 17:01 20:53 WBC 3.4 L (3.8-10.6) k/uL RBC 3.22 L (4.30-5.90) m/uL Hgb 9.6 L (13.0-17.5) gm/dL Hct 29.6 L (39.0-53.0) % Plt Count 43 L (150-450) k/uL Lymphocytes # 0.4 L (1.0-4.8) k/uL BUN (9-20) mg/dL Creatinine (0.66-1.25) mg/dL Glucose (74-99) mg/dL POC Glucose (mg/dL) 101 H 131 H (75-99) mg/dL Calcium (8.4-10.2) mg/dL Total Protein (6.3-8.2) g/dL 02/21/20 02/21/20 02/21/20 Range/Units 06:03 08:30 08:30 WBC (3.8-10.6) k/uL RBC 3.07 L (4.30-5.90) m/uL Hgb 9.4 L (13.0-17.5) gm/dL Hct 29.4 L (39.0-53.0) % Plt Count 47 L (150-450) k/uL Lymphocytes # (1.0-4.8) k/uL BUN 39 H (9-20) mg/dL Creatinine 3.38 H (0.66-1.25) mg/dL Glucose 211 H (74-99) mg/dL POC Glucose (mg/dL) 220 H (75-99) mg/dL Calcium 7.7 L (8.4-10.2) mg/dL Total Protein 5.6 L (6.3-8.2) g/dL 02/21/20 02/21/20 Range/Units 11:43 12:12 WBC (3.8-10.6) k/uL RBC (4.30-5.90) m/uL Hgb (13.0-17.5) gm/dL Hct (39.0-53.0) % Plt Count (150-450) k/uL Lymphocytes # (1.0-4.8) k/uL BUN (9-20) mg/dL Creatinine (0.66-1.25) mg/dL Glucose (74-99) mg/dL POC Glucose (mg/dL) 206 H 215 H (75-99) mg/dL Calcium (8.4-10.2) mg/dL Total Protein (6.3-8.2) g/dL
[2020-02-21 17:11] LABS: Glucose,Whole Blood 369 mg/dL (75-99)
[2020-02-21 20:10] LABS: Glucose,Whole Blood 327 mg/dL (75-99)
--- NOTE | 2020-02-21 21:43 | P.PN ---
Subjective On-call hospitalist covering Dr. Lind This is a 59 years old male with multiple medical problems was admitted for dyspnea and found to have acute on chronic systolic CHF with ejection fraction 25-30% Review of his history of nonischemic cardiomyopathy and his course was complicated by acute kidney injury secondary to ATN and cardiorenal syndrome that he needed hemodialysis since 02/09, where currently he is still undergoing hemodialysis with nephrology team on the case. Also he has cirrhosis secondary to left pneumonia with recurrent left pleural effusion status post thoracocentesis with culture growing Streptococcus, and Citrobacter and Enterobacter, infectious disease on the case and his been treated with Zosyn. Also recent steroids per pulmonary team recommendation. Today THE PATIENT IS AWAKE BUT IS MORE LETHARGIC PER STAFF THIS IS THE FIRST MC IN THE PATIENT WE GOING TO CHECK URINALYSIS HE IS HEMODYNAMICALLY STABLE AND HE IS SATURATING 95% ON 4 L OXYGEN, ACTUALLY PULMONARY TEAM. FOR DISCHARGE. ALSO PATIENT HAS BEEN FOLLOWED BY SEVERAL CONSULTANTS INCLUDING DIRECTOR DANCE AND DIRECTOR OF MIDWIFERY/STAFF MIDWIFE Objective - Vital Signs Vital signs: Vital Signs Temp 98.6 F 02/21/20 16:00 Pulse 92 02/21/20 17:13 Resp 18 02/21/20 16:00 BP 110/60 02/21/20 16:00 Pulse Ox 98 02/21/20 16:00 Intake & Output 02/21/20 02/21/20 02/22/20 06:59 18:59 06:59 Intake Total 840 600 Output Total 0 420 Balance 840 180 Weight 74.4 kg Intake: Oral 840 600 Output: Urine 0 420 Uretheral (Pierson) 420 Other: Voiding Method Urinal Indwelling Catheter ABP, PAP, CO, CI - Last Documented Arterial Blood Pressure 183/72 - Exam -GENERAL: The patient is alert and awake but lethargic and somewhat drowsy HEENT: Pupils are round and equally reacting to light. EOMI. No scleral icterus. No conjunctival pallor. Normocephalic, atraumatic. No pharyngeal erythema. No thyromegaly. CARDIOVASCULAR: S1 and S2 present. No murmurs, rubs, or gallops. PULMONARY: Chest is clear to auscultation, no wheezing or crackles. ABDOMEN: Soft, nontender, nondistended, normoactive bowel sounds. No palpable organomegaly. MUSCULOSKELETAL: No joint swelling or deformity. EXTREMITIES: No cyanosis, clubbing, or pedal edema. NEUROLOGICAL: Gross neurological examination did not reveal any focal deficits. SKIN: No rashes. no petechiae. - Labs CBC & Chem 7: 02/21/20 08:30 02/21/20 08:30 Labs: Abnormal Lab Results - Last 24 Hours (Table) 02/21/20 02/21/20 02/21/20 Range/Units 06:03 08:30 08:30 RBC 3.07 L (4.30-5.90) m/uL Hgb 9.4 L (13.0-17.5) gm/dL Hct 29.4 L (39.0-53.0) % Plt Count 47 L (150-450) k/uL BUN 39 H (9-20) mg/dL Creatinine 3.38 H (0.66-1.25) mg/dL Glucose 211 H (74-99) mg/dL POC Glucose (mg/dL) 220 H (75-99) mg/dL Calcium 7.7 L (8.4-10.2) mg/dL Total Protein 5.6 L (6.3-8.2) g/dL 02/21/20 02/21/20 02/21/20 Range/Units 11:43 12:12 16:51 RBC (4.30-5.90) m/uL Hgb (13.0-17.5) gm/dL Hct (39.0-53.0) % Plt Count (150-450) k/uL BUN (9-20) mg/dL Creatinine (0.66-1.25) mg/dL Glucose (74-99) mg/dL POC Glucose (mg/dL) 206 H 215 H 369 H (75-99) mg/dL Calcium (8.4-10.2) mg/dL Total Protein (6.3-8.2) g/dL 02/21/20 Range/Units 20:09 RBC (4.30-5.90) m/uL Hgb (13.0-17.5) gm/dL Hct (39.0-53.0) % Plt Count (150-450) k/uL BUN (9-20) mg/dL Creatinine (0.66-1.25) mg/dL Glucose (74-99) mg/dL POC Glucose (mg/dL) 327 H (75-99) mg/dL Calcium (8.4-10.2) mg/dL Total Protein (6.3-8.2) g/dL Microbiology - Last 24 Hours (Table) 02/20/20 17:18 Blood Culture - Preliminary Blood No Growth after 24 hours 02/20/20 17:28 Blood Culture - Preliminary Blood No Growth after 24 hours Assessment and Plan Assessment: Acute and chronic systolic nonischemic cardiomyopathy, ejection fraction 25-30% Acute kidney injury needing hemodialysis secondary to acute and cardiorenal syndrome Sepsis secondary to pneumonia. Also rule out UTI History of recurrent left pleural effusion, status post thoracocentesis this admission with culture showing enterobacter, Acetobacter and symmetrical Plan: This is a pleasant 59 years old male who presents with CHF, AKA I on hemodialysis and pneumonia with pleural effusion. Continue with Zosyn. Check urinalysis. Follow-up recommendation by several consultants including ese teacher, choir singer and control and recovery special tactics. Labs and medication were reviewed.. Continue same treatment. Continue with symptomatic treatment. Resume home medication. Monitor lytes and vitals. DVT and GI prophylaxis. Further recommendationsas per clinical course of the patient DVT prophylaxis: Subcutaneous heparin GI Prophylaxis: Ppi PT/OT: Pending Prognosis is guarded
[2020-02-21] MEDS: INSULIN DETEMIR (LEVEMIR) 100 UNIT/ML SYR SQ SCH (22:02)
[2020-02-22] MEDS: ATORVASTATIN 10 MG TAB PO SCH ×2 (00:45→21:44)
[2020-02-22] MEDS: PREGABALIN 100 MG CAP PO SCH ×3 (00:45→21:44)
[2020-02-22] MEDS: HEPARIN SODIUM,PORCINE 5,000 UNIT/ML 1 ML VIAL SQ SCH ×3 (00:45→18:01)
[2020-02-22] MEDS: PIPERACILLIN-TAZOBACTAM 3.375 GM in SODIUM CHLORIDE 0.9% 100 ML IVPB SCH ×3 (05:10→21:45)
--- NOTE | 2020-02-22 06:06 | PN ---
PROGRESS NOTE DATE OF SERVICE: 02/21/2020 REASON FOR FOLLOWUP: Enterobacter pneumonia and empyema. INTERVAL HISTORY: The patient is currently afebrile. Patient is breathing comfortably. He was noticed to be lethargic and unable to provide any history. No other changes reported by the nursing staff. No vomiting or any diarrhea. PHYSICAL EXAMINATION: Blood pressure 105/60 with a pulse of 85, temperature 97.3. He is 99% on 4 L nasal cannula. General description is a middle-aged male up in the chair in no distress. RESPIRATORY SYSTEM: Unlabored breathing with decreased intensity of breath sounds. No wheeze. HEART: S1, S2. Regular rate and rhythm. ABDOMEN: Soft, no tenderness. LABS: Hemoglobin 9.4, white count of 4.6, BUN of 39 creatinine 3.38. DIAGNOSTIC IMPRESSION AND PLAN: Patient with Enterobacter pneumonia , patient is status post thoracocentesis, now with repeat x-ray did show evidence of near complete opacification left hemothorax. The patient may benefit from pulmonary evaluation. Patient is covered with Zosyn to continue and will monitor his clinical course closely. MMODL / IJN: [id number] /
[2020-02-22 06:09] LABS: Glucose,Whole Blood 314 mg/dL (75-99)
[2020-02-22] MEDS: INSULIN ASPART (NovoLOG) 100 UNIT/ML VIAL SQ SCH ×4 (06:37→21:44)
[2020-02-22] MEDS: LIPASE 5,000/PROTEASE 17,000/AMYLASE 24,000 PO SCH (07:00)
[2020-02-22] MEDS: CALCIUM ACETATE 667 MG TAB PO SCH ×3 (07:00→18:09)
[2020-02-22] MEDS: SYMBICORT 160-4.5 MCG INHALER INHALATION SCH ×2 (08:29→20:35)
[2020-02-22] MEDS: IPRATROPIUM-ALBUTEROL 3 ML NEB INHALATION SCH ×4 (08:30→20:35)
[2020-02-22] MEDS: TAMSULOSIN 0.4 MG CAP.ER.24H PO SCH (09:32)
[2020-02-22] MEDS: predniSONE 10 MG TAB PO SCH (09:32)
[2020-02-22] MEDS: FUROSEMIDE 80 MG TAB PO SCH ×2 (09:32→17:59)
[2020-02-22 10:52] LABS: HCT 27.2 % (39.0-53.0); HGB 8.5 gm/dL (13.0-17.5); Hypochromasia Marked; MCHC 31.2 g/dL (31.0-37.0); MCV 96.2 fL (80.0-100.0); Mean Platelet Volume 10.7; RBC 2.83 m/uL (4.30-5.90); WBC 5.2 k/uL (3.8-10.6)
[2020-02-22 10:54] LABS: Platelet Count 47 k/uL (150-450)
[2020-02-22] MEDS ORDERED: SODIUM CHLORIDE 0.9% 1,000 ML IV ONE (11:23)
--- NOTE | 2020-02-22 11:24 | P.EN ---
A team: Arrived to room to find patient covered in blood with blood on bed, floor, wall, and dialysis cath laying on the floor. Patient had removed all lines and tubes. Patient laying in bed with blood coming from dialysis cath site. Pressure being applied by nursing. Patient had eyes closed but was talking and trying to get out of bed. BP was undetectable on manual cuff. He was lethargic and O2 sat was undetectable. 2 large bore IV established and 0.9 NS bolus started. Patient became decreased responsiveness and A team was converted to code blue. 1 unit O neg blood to bedside. Type and screened and CBC ordered. NRB applied and O2 sat 78 %/ Patient hooked to pads and monitors. Bleeding noted to be stopped. Dr. Hickey paged and came to bedside. He felt bleeding had stopped. His SPO2 increased to 99% and he was down graded to 15L NC. His BP came up to 112/85 with fluids. Patient stable and code stopped. Nursing to notify attending. Dr. Puri will plan on HD cath replacement tomorrow. CBC reviewed and HgB 8.5. However BP went 80/45 will order 1 unit pRBC, check HgB 2 hours later. second 1L bolus ordered. Plt 45. May need plt but will leave the discretion of A total of 35 minutes of critical care time. DX: acute symptomatic bleeding Hypotension Acute respiratory failure with hypoxemia.
[2020-02-22 12:12] LABS: Glucose,Whole Blood 170 mg/dL (75-99)
[2020-02-22] MEDS: ISOSORBIDE MONONITRATE ER 15 MG TAB PO SCH (12:13)
[2020-02-22] MEDS: METOPROLOL SUCCINATE (ER) 25 MG TAB.ER.24H PO SCH (12:13)
--- NOTE | 2020-02-22 12:51 | P.PN ---
Subjective On-call hospitalist covering Dr. Lind This is a 59 years old male with multiple medical problems was admitted for dyspnea and found to have acute on chronic systolic CHF with ejection fraction 25-30% Review of his history of nonischemic cardiomyopathy and his course was complicated by acute kidney injury secondary to ATN and cardiorenal syndrome that he needed hemodialysis since 02/09, where currently he is still undergoing hemodialysis with nephrology team on the case. Also he has cirrhosis secondary to left pneumonia with recurrent left pleural effusion status post thoracocentesis with culture growing Streptococcus, and Citrobacter and Enterobacter, infectious disease on the case and his been treated with Zosyn. Also recent steroids per pulmonary team recommendation. Today THE PATIENT IS AWAKE BUT IS MORE LETHARGIC PER STAFF THIS IS THE FIRST MC IN THE PATIENT WE GOING TO CHECK URINALYSIS HE IS HEMODYNAMICALLY STABLE AND HE IS SATURATING 95% ON 4 L OXYGEN, ACTUALLY PULMONARY TEAM. FOR DISCHARGE. ALSO PATIENT HAS BEEN FOLLOWED BY SEVERAL CONSULTANTS INCLUDING ANIMAL TECHNICIAN AND EQUALIZER OPERATOR 02/22/2020 Today patient was awake and alert, he answered my questions appropriately but by the end of the encounter he wanted to sleep, I suspect he is more lethargic related to his infection , he feels irritated at the bladder side and his lower abdomen. However heis in the hospital and Y his been hospitalized for. his vitals were stable in the morning and he is saturating 99% on 5 L oxygen Nasal cannula. Urine analysis from yesterday was still abnormal and suspicious for infection with large blood and large leukocyte esterase and more than 182 RBCs. Discussed with staff to send urine culture After rounding the patient was found in bed WITH blood after he pulled out his tubes and dialysis catheter, shortly he became unresponsive and DEEPAK RHODES was called however he regained consciousness and the code was stopped, Dr. Saab was at bedside and bleeding was stopped. Blood pressure was low 80/45 and 1 unit of blood transfusion was ordered. Please refer to the event note for more details. And we will check hemoglobin and resolved CBC after blood transfusion, further recommendation based on his clinical situation and lab results as well as vitals Currently he remains on Zosyn and prednisone 30 mg, we going to decrease the dose to 20 mg his prognosis remains critical CONSTITUTIONAL: No fever, no malaise, no fatigue. HEENT: No recent visual problems or hearing problems. Denied any sore throat. CARDIOVASCULAR: No orthopnea, PND, no palpitations, no syncope. PULMONARY: No shortness of breath, no cough, no hemoptysis. GASTROINTESTINAL: No diarrhea, no nausea, no vomiting, no abdominal pain. Normoactive bowel sounds. NEUROLOGICAL: No headaches, no weakness, no numbness. Active Medications Generic Name Dose Route Start Last Admin Trade Name Freq PRN Reason Stop Dose Admin Hydrocodone Bitart/Acetaminophen 1 each 02/06/20 20:18 02/16/20 04:59 Hydrocodone/Apap 10-325mg 1 Each Tab PO 1 each Q4H PRN Administration Pain Albuterol/Ipratropium 3 ml 02/04/20 10:06 02/14/20 23:19 Ipratropium-Albuterol 3 Ml Neb INHALATION 3 ml RT-Q2H PRN Administration Shortness Of Breath Or Wheezing Albuterol/Ipratropium 3 ml 02/07/20 08:00 02/22/20 12:02 Ipratropium-Albuterol 3 Ml Neb INHALATION 3 ml RT-QID JOSY Administration Alprazolam 0.25 mg 02/09/20 14:49 02/21/20 09:53 Alprazolam 0.25 Mg Tab PO 0.25 mg QID PRN Administration Anxiety Lipase/Protease/Amylase 4 each 02/03/20 07:30 02/22/20 07:00 Lipase 5,000/Protease 17,000/Amylase 24,000 PO Not Given W/BRKFST JOSY Atorvastatin Calcium 10 mg 02/02/20 21:00 02/22/20 00:45 Atorvastatin 10 Mg Tab PO Not Given HS JOSY Budesonide/Formoterol Fumarate 2 puff 02/06/20 20:00 02/22/20 08:29 Symbicort 160-4.5 Mcg Inhaler INHALATION 2 puff RT-BID JOSY Administration Calcium Acetate 1,334 mg 02/19/20 17:30 02/22/20 12:40 Calcium Acetate 667 Mg Tab PO Not Given TID-W/MEALS JOSY Darbepoetin Van 40 mcg 02/13/20 09:00 02/20/20 13:48 Darbepoetin Van 40 Mcg/0.4 Ml Syringe SQ 40 mcg Q7D JOSY Administration Docusate Sodium 100 mg 02/13/20 20:39 02/21/20 09:54 Docusate 100 Mg Cap PO 100 mg BID PRN Administration Constipation Furosemide 80 mg 02/19/20 16:00 02/22/20 09:32 Furosemide 80 Mg Tab PO 80 mg BID@0900,1600 JOSY Administration Heparin Sodium (Porcine) 5,000 unit 02/17/20 16:00 02/22/20 09:32 Heparin Sodium,Porcine 5,000 Unit/Ml 1 Ml Vial SQ 5,000 unit Q8HR JOSY Administration Sodium Chloride 1,000 mls @ 10 mls/hr 02/09/20 13:30 02/21/20 11:35 Saline 0.9% IV 10 mls/hr .Q24H JOSY Administration Piperacillin Sod/Tazobactam 100 mls @ 25 mls/hr 02/16/20 21:00 02/22/20 05:10 Sod 3.375 gm/ Sodium Chloride IVPB 25 mls/hr Q8H JOSY Administration Insulin Aspart 0 unit 02/12/20 17:30 02/22/20 06:37 Insulin Aspart (Novolog) 100 Unit/Ml Vial SQ 5 unit ACHS JOSY Administration Protocol Insulin Detemir 22 unit 02/14/20 22:15 02/21/20 22:02 Insulin Detemir (Levemir) 100 Unit/Ml Syr SQ 22 unit HS JOSY Administration Insulin Human Regular 6.2 unit 02/07/20 07:30 Insulin Regular Bolus (From Drip Bag) 0.1 unit/kg (6.2 unit) IV ONCE PRN Blood Sugar - High Isosorbide Mononitrate 15 mg 02/22/20 09:00 02/22/20 12:13 Isosorbide Mononitrate Er 15 Mg Tab PO Not Given DAILY JOSY Metoprolol Succinate 25 mg 02/03/20 09:00 02/22/20 12:13 Metoprolol Succinate (Er) 25 Mg Tab.Er.24h PO Not Given DAILY JOSY Naloxone HCl 0.2 mg 02/02/20 17:14 02/10/20 19:26 Naloxone 0.4 Mg/Ml 1 Ml Vial IV 0.2 mg Q2M PRN Administration Opioid Reversal Nicotine 1 patch 02/02/20 23:08 Nicotine 7mg/24hr Patch TRANSDERM DAILY PRN NICOTINE ADDICTION Pantoprazole Sodium 40 mg 02/02/20 17:16 02/21/20 09:54 Pantoprazole 40 Mg Tablet PO 40 mg DAILY PRN Administration GERDS Prednisone 20 mg 02/23/20 09:00 Prednisone 10 Mg Tab PO DAILY JOSY Pregabalin 300 mg 02/03/20 09:00 02/22/20 09:32 Pregabalin 100 Mg Cap PO 300 mg BID JOSY Administration Tamsulosin HCl 0.4 mg 02/21/20 08:30 02/22/20 09:32 Tamsulosin 0.4 Mg Cap.Er.24h PO 0.4 mg PC-BRKFST JOSY Administration Objective - Vital Signs Vital signs: Vital Signs Temp 97.3 F L 02/22/20 08:00 Pulse 80 02/22/20 12:21 Resp 18 02/22/20 08:00 BP 89/54 02/22/20 08:00 Pulse Ox 99 02/22/20 08:00 Intake & Output 02/21/20 02/22/20 02/22/20 18:59 06:59 18:59 Intake Total 600 240 Output Total 420 Balance 180 240 Weight 75.5 kg Intake: Oral 600 240 Output: Urine 420 Uretheral (Pierson) 420 Other: Voiding Method Indwelling Catheter Indwelling Catheter ABP, PAP, CO, CI - Last Documented Arterial Blood Pressure 183/72 - Exam -GENERAL: The patient is alert and awake but lethargic and somewhat drowsy HEENT: Pupils are round and equally reacting to light. EOMI. No scleral icterus. No conjunctival pallor. Normocephalic, atraumatic. No pharyngeal erythema. No thyromegaly. CARDIOVASCULAR: S1 and S2 present. No murmurs, rubs, or gallops. PULMONARY: Chest is clear to auscultation, no wheezing or crackles. ABDOMEN: Soft, nontender, nondistended, normoactive bowel sounds. No palpable organomegaly. MUSCULOSKELETAL: No joint swelling or deformity. EXTREMITIES: No cyanosis, clubbing, or pedal edema. NEUROLOGICAL: Gross neurological examination did not reveal any focal deficits. SKIN: No rashes. no petechiae. - Labs CBC & Chem 7: 02/22/20 10:31 02/21/20 08:30 Labs: Abnormal Lab Results - Last 24 Hours (Table) 02/21/20 02/21/20 02/22/20 Range/Units 16:51 20:09 06:05 RBC (4.30-5.90) m/uL Hgb (13.0-17.5) gm/dL Hct (39.0-53.0) % Plt Count (150-450) k/uL POC Glucose (mg/dL) 369 H 327 H 314 H (75-99) mg/dL Crossmatch 02/22/20 02/22/20 02/22/20 Range/Units 10:31 10:31 11:48 RBC 2.83 L (4.30-5.90) m/uL Hgb 8.5 L (13.0-17.5) gm/dL Hct 27.2 L (39.0-53.0) % Plt Count 47 L (150-450) k/uL POC Glucose (mg/dL) 170 H (75-99) mg/dL Crossmatch See Detail Microbiology - Last 24 Hours (Table) 02/20/20 17:18 Blood Culture - Preliminary Blood No Growth after 24 hours 02/20/20 17:28 Blood Culture - Preliminary Blood No Growth after 24 hours Assessment and Plan Assessment: Acute and chronic systolic nonischemic cardiomyopathy, ejection fraction 25-30% Acute kidney injury needing hemodialysis secondary to acute and cardiorenal syndrome Sepsis secondary to pneumonia. Also rule out UTI Acute blood loss anemia secondary to pulling dialysis catheter about, status post blood transfusion History of recurrent left pleural effusion, status post thoracocentesis this admission with culture showing enterobacter, Acetobacter and symmetrical Plan: This is a pleasant 59 years old male who presents with CHF, AKA I on hemo dialysis and pneumonia with pleural effusion. Continue with Zosyn. Check urine culture. Follow-up recommendation by several consultants including tomato grader, professor of counseling and ice cream machine operator. Dialysis catheter placement per Dr. Saab Labs and medication were reviewed.. Continue same treatment. Continue with symptomatic treatment. Resume home medication. Monitor lytes and vitals. DVT and GI prophylaxis. Further recommendationsas per clinical course of the patient DVT prophylaxis: Subcutaneous heparin GI Prophylaxis: Ppi PT/OT: Pending Prognosis is guarded
--- NOTE | 2020-02-22 13:09 | P.PN ---
Subjective Progress Note Date: 02/22/20 HISTORY OF PRESENT ILLNESS: Patient examined this morning at the bedside. Patient denied chest pain or pressure. Denies shortness of breath. Patient's Imdur was decreased yesterday. Patients blood pressure remains stable. PHYSICAL EXAM: VITAL SIGNS: Reviewed. GENERAL: Well-developed in no acute distress. NECK: Supple. No JVD or thyromegaly LUNGS: Respirations even and unlabored. Lungs diminished. HEART: Regular rate and rhythm. S1 and S2 heard. EXTREMITIES: Normal range of motion. No clubbing or cyanosis. Peripheral pulses intact. No lower extremity edema ASSESSMENT: Acute on chronic hypoxic and hypercapnic respiratory failure requiring mechanical ventilation Acute exacerbation of systolic congestive heart failure Acute on chronic kidney disease, on hemodialysis Hypertension Hyperlipidemia Diabetes mellitus, type II History of nonischemic cardiomyopathy with previous AICD placement, EF 25-30% Hypotension PLAN: Continue current cardiac medications Continue to monitor blood pressure We will follow on an as-needed basis. Please call with questions or concerns. Nurse practitioner note has been reviewed by physician. Signing provider agrees with the documented findings, assessment, and plan of care. Objective - Vital Signs Vital signs: Vital Signs Temp 97.3 F L 02/22/20 08:00 Pulse 80 02/22/20 12:21 Resp 18 02/22/20 08:00 BP 89/54 02/22/20 08:00 Pulse Ox 99 02/22/20 08:00 Intake & Output 02/21/20 02/22/20 02/22/20 18:59 06:59 18:59 Intake Total 600 240 Output Total 420 Balance 180 240 Weight 75.5 kg Intake: Oral 600 240 Output: Urine 420 Uretheral (Pierson) 420 Other: Voiding Method Indwelling Catheter Indwelling Catheter ABP, PAP, CO, CI - Last Documented Arterial Blood Pressure 183/72 - Labs CBC & Chem 7: 02/22/20 10:31 02/21/20 08:30 Labs: Abnormal Lab Results - Last 24 Hours (Table) 02/21/20 02/21/20 02/22/20 Range/Units 16:51 20:09 06:05 RBC (4.30-5.90) m/uL Hgb (13.0-17.5) gm/dL Hct (39.0-53.0) % Plt Count (150-450) k/uL POC Glucose (mg/dL) 369 H 327 H 314 H (75-99) mg/dL Crossmatch 02/22/20 02/22/20 02/22/20 Range/Units 10:31 10:31 11:48 RBC 2.83 L (4.30-5.90) m/uL Hgb 8.5 L (13.0-17.5) gm/dL Hct 27.2 L (39.0-53.0) % Plt Count 47 L (150-450) k/uL POC Glucose (mg/dL) 170 H (75-99) mg/dL Crossmatch See Detail Microbiology - Last 24 Hours (Table) 02/20/20 17:18 Blood Culture - Preliminary Blood No Growth after 24 hours 02/20/20 17:28 Blood Culture - Preliminary Blood No Growth after 24 hours
--- NOTE | 2020-02-22 16:42 | P.PN ---
Subjective Progress Note Date: 02/22/20 Follow-up for acute kidney injury on dialysis. Per his permacath this morning. Objective - Vital Signs Vital signs: Vital Signs Temp 97.3 F L 02/22/20 15:32 Pulse 82 02/22/20 15:42 Resp 16 02/22/20 15:42 BP 95/54 02/22/20 15:42 Pulse Ox 98 02/22/20 15:42 Intake & Output 02/21/20 02/22/20 02/22/20 18:59 06:59 18:59 Intake Total 600 365 Output Total 420 Balance 180 365 Weight 75.5 kg Intake: Oral 600 365 Blood Product 0 Rc As-1 Unit 0 [id number] Output: Urine 420 Uretheral (Pierson) 420 Other: Voiding Method Indwelling Catheter Indwelling Catheter ABP, PAP, CO, CI - Last Documented Arterial Blood Pressure 183/72 - Exam No acute distress S1-S2 heard Decreased breath sounds Trace edema - Labs CBC & Chem 7: 02/22/20 10:31 02/21/20 08:30 Labs: Abnormal Lab Results - Last 24 Hours (Table) 02/21/20 02/21/20 02/22/20 Range/Units 16:51 20:09 06:05 RBC (4.30-5.90) m/uL Hgb (13.0-17.5) gm/dL Hct (39.0-53.0) % Plt Count (150-450) k/uL POC Glucose (mg/dL) 369 H 327 H 314 H (75-99) mg/dL Crossmatch 02/22/20 02/22/20 02/22/20 Range/Units 10:31 10:31 11:48 RBC 2.83 L (4.30-5.90) m/uL Hgb 8.5 L (13.0-17.5) gm/dL Hct 27.2 L (39.0-53.0) % Plt Count 47 L (150-450) k/uL POC Glucose (mg/dL) 170 H (75-99) mg/dL Crossmatch See Detail Microbiology - Last 24 Hours (Table) 02/20/20 17:18 Blood Culture - Preliminary Blood No Growth after 24 hours 02/20/20 17:28 Blood Culture - Preliminary Blood No Growth after 24 hours Assessment and Plan Assessment: #1 nonoliguric acute kidney injury secondary to ischemic ATN and cardiorenal syndrome. Started on hemodialysis 02/10/2020. #2 chronic kidney disease stage III secondary to nephrosclerosis/diabetic kidney disease with a baseline creatinine of 1.1-1.5 MG per DL. #3 systolic CHF with EF of 25% #4 volume overload #5 hyperkalemia resolved with dialysis #6 hypoxic respiratory failure on oxygen #7 Enterobacter pneumonia Plan: #1 hemodialysis MWF schedule. New permacath placement tomorrow, hemodialysis after that. #2 monitor strict ins and outs for renal recovery #3 avoid nephrotoxic agents
[2020-02-22 17:18] LABS: Glucose,Whole Blood 116 mg/dL (75-99)
[2020-02-22] MEDS: PHENAZOPYRIDINE 100 MG TAB PO SCH (18:01)
--- NOTE | 2020-02-22 18:03 | P.PN ---
Subjective Progress Note Date: 02/22/20 Principal diagnosis: Acute on chronic hypoxemic/hypercapnic respiratory failure requiring intubation mechanical ventilatory support from February 02 and successfully extubated Novem nirmal 9. 59-year-old male patient is well-known to me and the patient is currently in the intensive care unit after being reintubated yesterday for respiratory support for an extensive left lung pneumonia. Note that the patient required intubation mechanical ventilation earlier and the patient was successfully extubated on 02/04/2020. His pulmonary workup that included a bronchoscopy and the lavage that showed Enterobacter and the same micrograms and was also cultured from the pleural fluid that was aspirated on 02/03/2020. The patient currently remains on IV antibiotics and the patient is receiving IV Zosyn. Noted the chest exit shown significant consolidation and atelectasis of the left lung in addition to a small left-sided pleural effusion. Overnight, the patient became more hypoxic and less responsive. He had to be reintubated and he was brought into the intensive care unit for further care. This morning, the patient is on propofol running at 10 mg per KG per minute. He is easily arousable while being on sedation. He is also receiving normal sed rate of 75 mL an hour. He remains on assist control mode of ventilation at the rate of 24 the tidal volume of 450 and FiO2 of 40% with a PEEP of 5. The blood gas showed pH of 7.36 with a pCO2 of 37 and pO2 95. The patient is currently on no pressors. He is maintaining his own blood pressure. No fever. No chills. No leukocytosis with a white cell count 3.9. He has developed an acute kidney injury. As mentioned earlier creatinine came up to 5.8 and currently is down to 3.98 and the patient is going to require another session of hemodialysis today. The patient will be kept in ICU for now. I'm suggesting a repeat CAT scan of the chest to reevaluate the left lung. Based on my earlier review of the CAT scan that was done earlier, the patient has volume loss and extensive consolidation with a component of pleural fluid. I think this is essentially small at this point in time. He is on a prednisone burst taper currently on 30 mg by mouth daily. He is on Lovenox 30 mg subcu for DVT prophylaxis. He is on Levemir insulin 22 units at bedtime in addition to a size care coverage. The patient is also to be started enteral feeding for nutritional support. 02/12/2020, the patient is being seen for a follow-up. The patient is currently extubated. In the heating and cooling technician hours, the patient self extubated and the patient was not reintubated. He was kept on BiPAP at a pressure of 14/7 cm of water and FiO2 of 50%. He is much more comfortable at this point in time is breathing adequately. He is communicating and is awake and alert. Chest x-ray shows significant volume loss on the left with significant opacification of the left lung, however there is some slight improvement in the upper outer left lung with some improved aeration the left upper lobe area. The patient also has a mild right lower lobe pulmonary infiltration. Based on this, I contacted interventional radiology. I requested an ultrasound-guided thoracentesis and another 500 mL of pleural fluid was aspirated from the patient's lung successfully. Postprocedure chest x-ray shows significant improvement in aeration of the left lung. Nevertheless distal constellation of the left lower lobe along with some volume loss. The patient will be kept on the BiPAP overnight. I contacted the sister and I also updated her on the condition. Meanwhile, the patient will be kept on DuoNeb nebulized treatments on the clock and the patient is also on IV Zosyn regarding the gram-negative pneumonia with a parapneumonic effusion that was attributed to be related to Enterobacter. Repeat sputum sample was also sent and it's still growing gram-negative bacillus and would awaiting final cultures and sensitivities. In addition, the patient is going to undergo hemodialysis today. IV fluids at [facility] The patient is seen today 02/13/2020 in follow-up on the selective care unit. He was transferred out of the ICU earlier this morning. He is sitting up at the bedside. Awake and alert in no acute distress. He is currently maintaining good O2 saturations in the high 90s on 7 L high flow nasal cannula. She's been afebrile. Hemodynamically stable. Initial pleural fluid cultures from 02/03/2020 were positive for alpha hemolytic streptococcus, Enterobacter gergoviae, Enterobacter cloacae. Follow-up fluid cultures from 02/12/2020 are pending. White count 5.3. Hemoglobin 9.3. Platelet count 53,000. Sodium 127. Potassium 4.3. Creatinine 2.69. Is currently on Zosyn along with bronchodilators, oral prednisone, IV diuretics. Lovenox for DVT prophylaxis. The patient is seen today 02/14/2020 in follow-up on the selective care unit. He is sitting up at the bedside. Awake and alert in no acute distress. Denies any worsening shortness of breath. He has a productive cough of grayish brown sputum. Cultures positive for Acinetobacter Ivy/haemol which is quite a resistant organism. White count 5.7. Hemoglobin 9.9. Sodium 131. Potassium 4.3. Creatinine 3.43. He remains on DuoNeb inhalations, Symbicort, redness him. Continued on IV diuretics. Currently on antibiotics in the form of Zosyn. Chest x-ray continues to show basilar effusion and associated atelectasis. The patient is seen today 02/15/2020 in follow-up on selective care unit. He is currently up ambulating with physical therapy. He is doing quite well. No worsening shortness of breath, cough or congestion. 18 O2 saturations in the high 90s on 3 L/m per nasal cannula. Cultures positive for Acinetobacter Ivy/haemol which is quite a resistant organism. Currently on Zosyn. White count 6.3. Hemoglobin 9.5. Sodium 132. Potassium 5.1. Creatinine 4.33. He remains on fluid restrictions. Chest x-ray reveals stable bilateral effusions. He remains on bronchodilators, prednisone. Remains on IV diuretics. The patient is seen today February 16 2020 follow-up on the selective care unit. He is currently resting fairly comfortably in bed. He is being concern today is continued significant edema the scrotum. He did receive hemodialysis yesterday. Hemodialysis is planned for today. His creatinine is 3.51. He is less short of breath. He started 2 L/m per nasal cannula to maintain O2 saturation in low 90s. White count 7.3. Hemoglobin 9.5. Platelet count 50,000. Sodium 135. Potassium 4.3. Creatinine 2.51. He remains on Lasix 40 mg IV twice a day. Patient is seen today 02/17/2020 in follow-up on selective care unit. He is awake and alert in no acute distress. Resting more comfortably in bed. He did receive hemodialysis yesterday and again today. His scrotal swelling has improved and the patient is hoping to go home soon. He plans to stay with his sister upon discharge. He denies any worsening shortness of breath, cough or congestion. He is maintaining O2 saturation the mid 90s on 2 L/m per nasal cannula. Sodium 138. Potassium 4.4. Creatinine 2.92. He remains on antibiotics in the form of Zosyn for his Acinetobacter Ivy/haemol sputum. We were reconsulted on the patient today 02/22/2020 after he had developed altered mental status and pulled out his dialysis catheter and IVs and had significant blood loss. He did require 1 unit of packed blood cell replacement. The plan is for replacement of aged catheter tomorrow. He did have a follow-up chest x-ray that showed recurrent left-sided near complete opacity. He is maintaining O2 saturations in the mid 90s on 5 L high flow nasal cannula. Ultrasound of the left chest pending. Objective - Vital Signs Vital signs: Vital Signs Temp 97.3 F L 02/22/20 15:32 Pulse 81 02/22/20 16:52 Resp 16 02/22/20 16:12 BP 89/55 02/22/20 16:12 Pulse Ox 96 02/22/20 16:43 Intake & Output 02/21/20 02/22/20 02/22/20 18:59 06:59 18:59 Intake Total 600 365 Output Total 420 Balance 180 365 Weight 75.5 kg Intake: Oral 600 365 Blood Product 0 Rc As-1 Unit 0 [id number] Output: Urine 420 Uretheral (Pierson) 420 Other: Voiding Method Indwelling Catheter Indwelling Catheter ABP, PAP, CO, CI - Last Documented Arterial Blood Pressure 183/72 - Exam GENERAL EXAM: Alert, pleasant 59-year-old gentleman, appears older than stated age, on 5 L high flow nasal cannula, comfortable in no apparent distress. HEAD: Normocephalic. EYES: Normal reaction of pupils, equal size. NOSE: Clear with pink turbinates. THROAT: No erythema or exudates. NECK: No masses, no JVD. CHEST: No chest wall deformity. LUNGS: Equal air entry with bibasilar crackles, left greater than right, diminished. CVS: S1 and S2 normal with no audible murmur, regular rhythm. ABDOMEN: No hepatosplenomegaly, normal bowel sounds, no guarding or rigidity. SPINE: No scoliosis or deformity SKIN: No rashes CENTRAL NERVOUS SYSTEM: No focal deficits, tone is normal in all 4 extremities. EXTREMITIES: There is significant scrotal edema. There is 1-2+ peripheral edema. No clubbing, no cyanosis. Peripheral pulses are intact. - Labs CBC & Chem 7: 02/22/20 10:31 02/21/20 08:30 Labs: Abnormal Lab Results - Last 24 Hours (Table) 02/21/20 02/22/20 02/22/20 Range/Units 20:09 06:05 10:31 RBC 2.83 L (4.30-5.90) m/uL Hgb 8.5 L (13.0-17.5) gm/dL Hct 27.2 L (39.0-53.0) % Plt Count 47 L (150-450) k/uL POC Glucose (mg/dL) 327 H 314 H (75-99) mg/dL Crossmatch 02/22/20 02/22/20 02/22/20 Range/Units 10:31 11:48 17:10 RBC (4.30-5.90) m/uL Hgb (13.0-17.5) gm/dL Hct (39.0-53.0) % Plt Count (150-450) k/uL POC Glucose (mg/dL) 170 H 116 H (75-99) mg/dL Crossmatch See Detail Microbiology - Last 24 Hours (Table) 02/20/20 17:18 Blood Culture - Preliminary Blood No Growth after 24 hours 02/20/20 17:28 Blood Culture - Preliminary Blood No Growth after 24 hours Assessment and Plan Assessment: 1 Acute hypoxemic/hypercapnic respiratory failure requiring intubation mechanical ventilator toward support from 02/03/2020 through 02/04/2020. The patient was extubated on 02/04/2020 with subsequent reintubation and self extubated, currently on 5 L high flow nasal cannula. Previous bronchoscopies shown no evidence of an endobronchial lesions obstructing the airway. The patient was noted to have persistent left sided pleural effusion and another t horacentesis was done and a total of 500 mL of pleural fluid aspirated from the left lung with adequate aeration of the left upper lobe area. There is still some volume loss and consolidation of left lung base. Sputum is growing Acinetoobacter Ivy/haemol currently on Zosyn. 2 Recurrent left lung pleural effusion with previous thoracentesis with animal fluid returned on 02/03/2020. Fluid positive for Enterobacter gergoviae and Streptococcus. Ultrasound of the left chest dated 02/22/2020 does reveal pleural effusion however there is lung within that fluid. 3 Gram-negative pneumonia with Enterobacter and the patient has dense consolidation left lung infiltrate status post bronchoscopy with BAL on 02/03/2020 and again on 02/06/2020. Cultures positive for Enterobacter gergoviae and the patient is currently on IV Zosyn. 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 Steiner Chest x-ray and ultrasound reviewed No plans for thoracentesis at this time. There is fluid however there is lung tissue in the fluid. Plan is for replacement of the HD catheter and hemodialysis tomorrow Continue Zosyn and bronchodilators Continue incentive spirometer and cough and deep breathing exercises Increase activity as tolerated We will continue to follow I, the cosigning physician, performed a history & physical examination of the patient. Lungs sounds with basilar crackles in the left greater than right. Maintaining good O2 saturations in the 90s on 5 L high flow nasal cannula. I discussed the assessment and plan of care with my nurse practitioner, Elenita Anne. I attest to the above note as dictated by her.
--- NOTE | 2020-02-22 18:14 | US ---
EXAMINATION TYPE: US chest DATE OF EXAM: 02/22/2020 COMPARISON: XR CLINICAL HISTORY: Markings for thoracentesis by pulmonary staff. Pleural effusion. TECHNIQUE: Targeted ultrasound of the posterior lower bilateral hemithoraces EXAM MEASUREMENTS: Right Pleural Effusion pocket size: 1.63 cm Right skin surface to fluid distance: 2.19 cm Left Pleural Effusion pocket size: 2.27 cm Left skin surface to fluid distance: 2.30 cm Small fluid pockets seen bilaterally. Right side not marked for possible thoracentesis outside the dept. Left side not marked for possible thoracentesis outside the dept. Pulmonologists are able to review the images in the patient?s EMR. Impression Bilateral pleural effusions are demonstrated. IMPRESSIONS:
--- NOTE | 2020-02-22 18:23 | XR ---
EXAMINATION TYPE: XR chest 1V portable DATE OF EXAM: 02/22/2020 COMPARISON: 02/20/2020 HISTORY: 02/20/2020 TECHNIQUE: Single view FINDINGS: There is pulmonary vascular congestion. There is essentially complete opacification left he mithorax. There is also blunting right costophrenic angle and infiltrate in the right lung. IMPRESSION: There is increasing bilateral pleural effusions and congestive heart failure compared to recent exam. Bilateral pneumonia also probably present.
[2020-02-22 20:24] LABS: Glucose,Whole Blood 266 mg/dL (75-99)
[2020-02-22 21:01] LABS: Basophils % (A) 0 %; Eosinophils % (A) 0 %; HCT 28.8 % (39.0-53.0); HGB 9.2 gm/dL (13.0-17.5); Hypochromasia Marked; Lymphocytes # (A) 0.3 k/uL (1.0-4.8); Lymphocytes % (A) 4 %; MCHC 31.9 g/dL (31.0-37.0); MCV 93.9 fL (80.0-100.0); Mean Platelet Volume 11.8; Monocytes # (A) 0.2 k/uL (0-1.0); Monocytes % (A) 3 %; Neutrophils # (A) 5.3 k/uL (1.3-7.7); Neutrophils % (A) 92 %; RBC 3.07 m/uL (4.30-5.90); RDW 15.4 % (11.5-15.5); WBC 5.7 k/uL (3.8-10.6)
[2020-02-22 21:04] LABS: Platelet Count 38 k/uL (150-450)
[2020-02-22] MEDS: SODIUM CHLORIDE 0.9% 1,000 ML IV SCH (21:43)
[2020-02-22] MEDS: INSULIN DETEMIR (LEVEMIR) 100 UNIT/ML SYR SQ SCH (21:44)
--- NOTE | 2020-02-22 22:13 | PN ---
PROGRESS NOTE DATE OF SERVICE: 02/22/2020 REASON FOR FOLLOWUP: Enterobacter pneumonia and empyema. INTERVAL HISTORY: Patient is currently afebrile. The patient remains to be slightly confused, pulling out his IVs and lethargic. No significant worsening hypoxemia has been reported. No vomiting or diarrhea reported. The patient himself unable to provide any history. PHYSICAL EXAMINATION: Blood pressure is 88/57, pulse of 83, temperature 97.3. He is 96% on high-flow nasal cannula oxygen. General description is a middle-aged male up in the bed in no distress. Respiratory system: Unlabored breathing. Decreased breath sounds in the base. Heart S1, S2. Regular rate and rhythm. ABDOMEN: Soft, no tenderness. LABORATORY DATA: Hemoglobin 9.1, white count of 5.7. Chest ultrasound bilateral pleural effusion redemonstrated. Chest x-ray this evening bilateral pleural effusion, congestive heart failure. DIAGNOSTIC IMPRESSION AND PLAN: Patient with Enterobacter pneumonia and concern for possible empyema in this patient noticed to have of the chest. Pulmonary has re-evaluated the patient. has been ordered. The patient is currently covered with Zosyn to continue and monitor clinical course closely. MMODL / IJN: [id number] /
[2020-02-22] MEDS: ALPRAZolam 0.25 MG TAB PO PRN (22:22)
[2020-02-23] MEDS: HEPARIN SODIUM,PORCINE 5,000 UNIT/ML 1 ML VIAL SQ SCH ×4 (00:50→22:55)
[2020-02-23] MEDS: PHENAZOPYRIDINE 100 MG TAB PO SCH ×4 (00:53→23:03)
[2020-02-23] MEDS: PIPERACILLIN-TAZOBACTAM 3.375 GM in SODIUM CHLORIDE 0.9% 100 ML IVPB SCH ×4 (04:21→22:57)
[2020-02-23 04:39] LABS: Glucose,Whole Blood 271 mg/dL (75-99)
[2020-02-23 06:01] LABS: HCT 28.7 % (39.0-53.0); HGB 9.1 gm/dL (13.0-17.5); Hypochromasia Marked; MCH 29.6 pg (25.0-35.0); MCHC 31.6 g/dL (31.0-37.0); MCV 93.7 fL (80.0-100.0); Mean Platelet Volume 11.4; RBC 3.06 m/uL (4.30-5.90); RDW 15.6 % (11.5-15.5); WBC 6.1 k/uL (3.8-10.6)
[2020-02-23 06:08] LABS: Platelet Count 34 k/uL (150-450)
[2020-02-23 06:22] LABS: Glucose,Whole Blood 217 mg/dL (75-99)
[2020-02-23 06:56] LABS: Albumin 3.6 g/dL (3.5-5.0); Potassium 4.8 mmol/L (3.5-5.1); Total Bilirubin 0.5 mg/dL (0.2-1.3); Total Protein 5.6 g/dL (6.3-8.2)
[2020-02-23] MEDS: CALCIUM ACETATE 667 MG TAB PO SCH ×3 (06:59→17:41)
[2020-02-23] MEDS: INSULIN ASPART (NovoLOG) 100 UNIT/ML VIAL SQ SCH ×4 (06:59→23:45)
[2020-02-23] MEDS: LIPASE 5,000/PROTEASE 17,000/AMYLASE 24,000 PO SCH (07:00)
[2020-02-23] MEDS ORDERED: CALCIUM CHLORIDE 100 MG/ML 10 ML SYRINGE ONE (08:21)
[2020-02-23] MEDS ORDERED: SODIUM BICARB 8.4% 50 ML SYR (1 MEQ/ML) ONE (08:21)
[2020-02-23] MEDS ORDERED: EPINEPHrine 10 ML SYRINGE (0.1 MG/ML) ONE (08:21)
[2020-02-23] MEDS ORDERED: AMIODARONE 50 MG/ML 3 ML VIAL IV ONE (08:21)
[2020-02-23] MEDS ORDERED: EPINEPHrine 1 MG/ML (MDV) 30 ML VIAL ONE (08:21)
[2020-02-23] MEDS ORDERED: DEXTROSE 5% IN WATER 250 ML BAG IV ONE (08:21)
[2020-02-23] MEDS ORDERED: MAGNESIUM SULFATE SYG 4.06 MEQ/ML SYRINGE ONE (08:21)
[2020-02-23] MEDS ORDERED: DEXTROSE 5% IN WATER 50 ML BAG ONE (08:21)
[2020-02-23 08:25] LABS: Glucose,Whole Blood 207 mg/dL (75-99)
[2020-02-23 08:52] LABS: ABG HCO3 21 mmol/L (21-25); ABG Oxygen Saturation 99.7 % (94-97); ABG PCO2 62 mmHg (35-45); ABG PO2 175 mmHg (83-108); ABG TCO2 23 mmol/L (19-24); Allen Test Performed? Yes
[2020-02-23 08:56] LABS: ABG PH 7.14 (7.35-7.45)
[2020-02-23] MEDS ORDERED: DEXTROSE 5% IN WATER 1,000 ML with SODIUM BICARB (1 MEQ/ML) 150 ML IV SCH (09:00)
[2020-02-23 09:18] LABS: Calcium 8.7 mg/dL (8.4-10.2)
[2020-02-23 09:20] LABS: HCT 30.6 % (39.0-53.0); HGB 9.4 gm/dL (13.0-17.5); Hypochromasia Marked; MCH 29.2 pg (25.0-35.0); MCHC 30.5 g/dL (31.0-37.0); MCV 95.7 fL (80.0-100.0); Mean Platelet Volume 11.5; RDW 15.6 % (11.5-15.5); WBC 8.7 k/uL (3.8-10.6)
[2020-02-23 09:22] LABS: Platelet Count 42 k/uL (150-450)
[2020-02-23 09:41] LABS: Magnesium 5.4 mg/dL (1.6-2.3); Phosphorus 9.9 mg/dL (2.5-4.5)
[2020-02-23] MEDS ORDERED: propofoL 100 ML IV ONE ×2 (09:41→12:09)
[2020-02-23] MEDS: IPRATROPIUM-ALBUTEROL 3 ML NEB INHALATION SCH ×4 (09:43→19:50)
[2020-02-23] MEDS: SYMBICORT 160-4.5 MCG INHALER INHALATION SCH ×2 (09:43→19:50)
[2020-02-23 10:02] LABS: Lymphocytes # (M) 1.83 k/uL (1.0-4.8); Monocytes # (M) 0.61 k/uL (0-1.0); Neutrophils # (M) 6.26 k/uL (1.3-7.7); Neutrophils % (M) 72 %; Nucleated Red Blood Cells 0 /100 WBC (0-0); Total Cells Counted 100
[2020-02-23 10:03] LABS: ABG Base Excess -8.2 mmol/L; ABG HCO3 21 mmol/L (21-25); ABG Oxygen Saturation 82.5 % (94-97); ABG PCO2 67 mmHg (35-45); ABG TCO2 23 mmol/L (19-24); Allen Test Performed? Yes
[2020-02-23 10:08] LABS: ABG PH 7.11 (7.35-7.45); ABG PO2 51 mmHg (83-108)
--- NOTE | 2020-02-23 10:25 | P.EN ---
DEEPAK RHODES NOTE I responded to DEEPAK RHODES called overhead at 08, and arrived by 08. CPR was started at 08 with initial rhythm of asystole. Pulse check done at 824, 826, demonstrated asystole again. IV access was obtained at 08 and initial epi bolus of total 5 epi pushes were given. At 08, initial amp of bicarb of total 3 amps was given. At 08, 1g Calcium chloride and Magnesium bolus. Pulse check at 08 demonstrated PEA, at which point he rec'd 4th push of epi and 2nd push of bicarb. At 08, pulse was demonstrated at HR of 133. CPR was stopped, and epi gtt started. At 833, patient again lost pulse, PEA, and CPR was resumed. 834, patient was noted to be in V Fib, shocked at 200J. At 36, patient again redemonstrated ROSC, and was bolused amiodarone. Initial vitals were 93%, 177/92, HR 112. Patient maintained high BPs on epi gtt, and this was tapered down and switched to small dose levophed. Bicarb gtt was started. Post Code AB.13, pCO2 62, pO2 175 Post Code Neuro Exam: - cough, gag, +corneal b/l; does not withdraw to pain in all 4 extremities. Family (patient's daughter) was notified regarding patient's status.
[2020-02-23] MEDS: FUROSEMIDE 80 MG TAB PO SCH (10:40)
[2020-02-23] MEDS: TAMSULOSIN 0.4 MG CAP.ER.24H PO SCH (10:40)
[2020-02-23] MEDS: ISOSORBIDE MONONITRATE ER 15 MG TAB PO SCH (10:40)
[2020-02-23] MEDS: METOPROLOL SUCCINATE (ER) 25 MG TAB.ER.24H PO SCH (10:41)
[2020-02-23] MEDS: PREGABALIN 100 MG CAP PO SCH ×2 (10:42→23:03)
[2020-02-23] MEDS: predniSONE 10 MG TAB PO SCH (10:43)
[2020-02-23] MEDS ORDERED: CISATRACURIUM 2 MG/ML 5 ML VIAL IV ONE (11:05)
[2020-02-23 11:42] LABS: ABG Base Excess -5.3 mmol/L; ABG HCO3 20 mmol/L (21-25); ABG Oxygen Saturation 96.1 % (94-97); ABG PCO2 37 mmHg (35-45); ABG PH 7.35 (7.35-7.45); ABG PO2 77 mmHg (83-108); ABG TCO2 21 mmol/L (19-24); Allen Test Performed? Yes
[2020-02-23 12:18] LABS: Glucose,Whole Blood 142 mg/dL (75-99)
[2020-02-23] MEDS: FUROSEMIDE 10 MG/ML 10 ML VIAL IV SCH ×2 (12:22→22:53)
--- NOTE | 2020-02-23 12:32 | XR ---
EXAMINATION TYPE: XR chest 1V portable DATE OF EXAM: 02/23/2020 CLINICAL HISTORY: Difficulty breathing had to be intubated. TECHNIQUE: Single AP portable supine view of the chest is obtained. COMPARISON: Chest x-ray from one day earlier and older studies. FINDINGS: New endotracheal tube satisfactory in position 4 to 5 cm above soto. New Orogastric tube projects below diaphragm. Persistent cardiomegaly with single lead pacemaker/defibrillator. Persistent bilateral opacities. Imp roved aeration left lung apex versus prior. Change in technique noted. Improved visualization bilater al heart borders are current study. Osseous structures are intact. IMPRESSION: 1. New endotracheal and orogastric tubes satisfactory in position. 2. Cardiomegaly with moderate central vascular congestion and [id number] bilateral pleural eff usions. Correlate for CHF exacerbation. Underlying infiltrate is not excluded. Improved aeration left upper to midlung noted from prior.
--- NOTE | 2020-02-23 12:55 | P.PN ---
Subjective Progress Note Date: 02/23/20 Follow-up for acute kidney injury on dialysis. Code at this morning, PEA and asystole downtime of 15 minutes. Currently on ventilator, levo fed. Objective - Vital Signs Vital signs: Vital Signs Temp 96.9 F L 02/23/20 00:00 Pulse 64 02/23/20 12:21 Resp 18 02/23/20 04:00 BP 93/57 02/23/20 04:00 Pulse Ox 90 L 02/23/20 04:00 Intake & Output 02/22/20 02/23/20 02/23/20 18:59 06:59 18:59 Intake Total 665 1230 Output Total 100 Balance 665 1230 -100 Weight 60 kg Intake: IV 70 Sodium Chloride 0.9% 1, 70 000 ml @ 10 mls/hr IV . Q24H JOSY Rx#:[id number] Intake, IV Titration 100 Amount Piperacillin-Tazobactam 3 100 .375 gm In Sodium Chloride 0.9% 100 ml @ 25 mls/hr IVPB Q8H JOSY Rx#: [id number] Oral 665 750 Blood Product 0 310 Rc As-1 Unit 0 310 [id number] Output: Urine 100 Other: Voiding Method Indwelling Catheter Indwelling Catheter # Voids 0 ABP, PAP, CO, CI - Last Documented Arterial Blood Pressure 183/72 - Exam No acute distress S1-S2 heard Decreased breath sounds Trace edema - Labs CBC & Chem 7: 02/23/20 08:55 02/23/20 08:55 Labs: Abnormal Lab Results - Last 24 Hours (Table) 02/22/20 02/22/20 02/22/20 Range/Units 10:31 17:10 20:07 RBC (4.30-5.90) m/uL Hgb (13.0-17.5) gm/dL Hct (39.0-53.0) % MCHC (31.0-37.0) g/dL RDW (11.5-15.5) % Plt Count (150-450) k/uL Lymphocytes # (1.0-4.8) k/uL ABG pH (7.35-7.45) ABG pCO2 (35-45) mmHg ABG pO2 (83-108) mmHg ABG HCO3 (21-25) mmol/L ABG O2 Saturation (94-97) % Carbon Dioxide (22-30) mmol/L BUN (9-20) mg/dL Creatinine (0.66-1.25) mg/dL Glucose (74-99) mg/dL POC Glucose (mg/dL) 116 H 266 H (75-99) mg/dL Calcium (8.4-10.2) mg/dL Phosphorus (2.5-4.5) mg/dL Magnesium (1.6-2.3) mg/dL Total Protein (6.3-8.2) g/dL Crossmatch See Detail 02/22/20 02/23/20 02/23/20 Range/Units 20:26 04:37 05:40 RBC 3.07 L 3.06 L (4.30-5.90) m/uL Hgb 9.2 L 9.1 L (13.0-17.5) gm/dL Hct 28.8 L 28.7 L (39.0-53.0) % MCHC (31.0-37.0) g/dL RDW 15.6 H (11.5-15.5) % Plt Count 38 L 34 L (150-450) k/uL Lymphocytes # 0.3 L (1.0-4.8) k/uL ABG pH (7.35-7.45) ABG pCO2 (35-45) mmHg ABG pO2 (83-108) mmHg ABG HCO3 (21-25) mmol/L ABG O2 Saturation (94-97) % Carbon Dioxide (22-30) mmol/L BUN (9-20) mg/dL Creatinine (0.66-1.25) mg/dL Glucose (74-99) mg/dL POC Glucose (mg/dL) 271 H (75-99) mg/dL Calcium (8.4-10.2) mg/dL Phosphorus (2.5-4.5) mg/dL Magnesium (1.6-2.3) mg/dL Total Protein (6.3-8.2) g/dL Crossmatch 02/23/20 02/23/20 02/23/20 Range/Units 05:40 06:09 08:24 RBC (4.30-5.90) m/uL Hgb (13.0-17.5) gm/dL Hct (39.0-53.0) % MCHC (31.0-37.0) g/dL RDW (11.5-15.5) % Plt Count (150-450) k/uL Lymphocytes # (1.0-4.8) k/uL ABG pH (7.35-7.45) ABG pCO2 (35-45) mmHg ABG pO2 (83-108) mmHg ABG HCO3 (21-25) mmol/L ABG O2 Saturation (94-97) % Carbon Dioxide 21 L (22-30) mmol/L BUN 59 H (9-20) mg/dL Creatinine 5.03 H (0.66-1.25) mg/dL Glucose 242 H (74-99) mg/dL POC Glucose (mg/dL) 217 H 207 H (75-99) mg/dL Calcium 8.0 L (8.4-10.2) mg/dL Phosphorus (2.5-4.5) mg/dL Magnesium (1.6-2.3) mg/dL Total Protein 5.6 L (6.3-8.2) g/dL Crossmatch 02/23/20 02/23/20 02/23/20 Range/Units 08:52 08:55 08:55 RBC 3.20 L (4.30-5.90) m/uL Hgb 9.4 L (13.0-17.5) gm/dL Hct 30.6 L (39.0-53.0) % MCHC 30.5 L (31.0-37.0) g/dL RDW 15.6 H (11.5-15.5) % Plt Count 42 L (150-450) k/uL Lymphocytes # (1.0-4.8) k/uL ABG pH 7.14 L* (7.35-7.45) ABG pCO2 62 H (35-45) mmHg ABG pO2 175 H (83-108) mmHg ABG HCO3 (21-25) mmol/L ABG O2 Saturation 99.7 H (94-97) % Carbon Dioxide 19 L (22-30) mmol/L BUN 60 H (9-20) mg/dL Creatinine 4.83 H (0.66-1.25) mg/dL Glucose 200 H (74-99) mg/dL POC Glucose (mg/dL) (75-99) mg/dL Calcium (8.4-10.2) mg/dL Phosphorus 9.9 H* (2.5-4.5) mg/dL Magnesium 5.4 H* (1.6-2.3) mg/dL Total Protein (6.3-8.2) g/dL Crossmatch 02/23/20 02/23/20 02/23/20 Range/Units 10:00 11:37 12:16 RBC (4.30-5.90) m/uL Hgb (13.0-17.5) gm/dL Hct (39.0-53.0) % MCHC (31.0-37.0) g/dL RDW (11.5-15.5) % Plt Count (150-450) k/uL Lymphocytes # (1.0-4.8) k/uL ABG pH 7.11 L* (7.35-7.45) ABG pCO2 67 H (35-45) mmHg ABG pO2 51 L* 77 L (83-108) mmHg ABG HCO3 20 L (21-25) mmol/L ABG O2 Saturation 82.5 L (94-97) % Carbon Dioxide (22-30) mmol/L BUN (9-20) mg/dL Creatinine (0.66-1.25) mg/dL Glucose (74-99) mg/dL POC Glucose (mg/dL) 142 H (75-99) mg/dL Calcium (8.4-10.2) mg/dL Phosphorus (2.5-4.5) mg/dL Magnesium (1.6-2.3) mg/dL Total Protein (6.3-8.2) g/dL Crossmatch Microbiology - Last 24 Hours (Table) 02/20/20 17:18 Blood Culture - Preliminary Blood No Growth after 48 hours 02/20/20 17:28 Blood Culture - Preliminary Blood No Growth after 48 hours Assessment and Plan Assessment: #1 nonoliguric acute kidney injury secondary to ischemic ATN and cardiorenal syndrome. Started on hemodialysis 02/10/2020. #2 chronic kidney disease stage III secondary to nephrosclerosis/diabetic kidney disease with a baseline creatinine of 1.1-1.5 MG per DL. #3 systolic CHF with EF of 25% #4 volume overload #5 hyperkalemia resolved with dialysis #6 hypoxic respiratory failure on oxygen #7 Enterobacter pneumonia #8 cardiopulmonary arrest Plan: #1 hold dialysis today. Repeat labs tomorrow based on the labs plan dialysis with a Roge catheter. #2 monitor strict ins and outs for renal recovery #3 avoid nephrotoxic agents #4 ICU care
[2020-02-23] MEDS: NOREPINEPHRINE 8 MG in SODIUM CHLORIDE 0.9% 250 ML IV SCH (13:12)
--- NOTE | 2020-02-23 15:26 | PCN ---
PROCEDURE NOTE OPERATIVE REPORT: Bronchoscopy and bronchial washings. PREOPERATIVE DIAGNOSIS: Complete collapse of the left lung. POSTOP DIAGNOSIS: Complete collapse of the left lung. ANESTHESIA: Patient was already on Nimbex, propofol, and fentanyl prior to the procedure. PROCEDURE DETAILS: Procedure patient was placed in a supine position, an an adapter was applied to the endotracheal tube, and the bronchoscope was advanced through the adapter, went to the distal end of the endotracheal tube, I was able to visualize the soto, right upper lobe, right middle lobe, right lower lobe, and they were intact. I also visualized the left upper lobe lingula and left lower lobe, there was very minimal bloody secretions, these were suctioned. No significant mucus plugging noted. The procedure was well tolerated, and no evidence of any immediate complications. Postoperative chest x-ray was reviewed and there was near complete re-expansion of the left lung. MMODL / IJN: [id number] /
--- NOTE | 2020-02-23 15:32 | PCN ---
PROCEDURE NOTE OPERATIVE REPORT: Placement of right femoral triple-lumen catheter. PREOPERATIVE DIAGNOSIS: Acute hypoxic respiratory failure. POSTOPERATIVE DIAGNOSIS: Acute hypoxic respiratory failure. ANESTHESIA: 2 mL of 1% lidocaine. PROCEDURE: The patient was placed in the supine position, the area of the right groin was prepared in a sterile fashion and drapes were applied. Then, the area was locally anesthetized with lidocaine. A cannulation of the right femoral vein was performed easily, a guidewire was placed, the area was dilated around the guidewire, then a triple-lumen catheter was inserted over the guidewire, the guidewire was removed. Good blood flow in the three different ports of the triple-lumen catheter noted, and line was secured using 3.0 silk sutures. No complications. Sterile dressing was applied. MMODL / IJN: [id number] /
--- NOTE | 2020-02-23 15:32 | PCN ---
PROCEDURE NOTE OPERATIVE REPORT: Placement of a left radial arterial line. PREOPERATIVE DIAGNOSIS: Acute hypoxic respiratory failure and hypotension. POSTOPERATIVE DIAGNOSIS: Acute hypoxic respiratory failure and hypotension. ANESTHESIA: None deployed. PROCEDURE DETAILS: The patient was placed in supine position, the left naris was prepared in a sterile fashion and drapes were applied. The left radial artery was palpated, cannulated, and a guidewire was placed. A Cook catheter was inserted over the guidewire, and the guidewire was removed. Good blood flow, good waveform noted. No evidence of any complications. Line was secured using 3.0 silk sutures. MMODL / IJN: [id number] /
--- NOTE | 2020-02-23 15:33 | P.PN ---
Subjective Progress Note Date: 02/23/20 Principal diagnosis: Acute on chronic hypoxic respiratory failure, multifactorial 59-year-old male patient is well-known to me and the patient is currently in the intensive care unit after being reintubated yesterday for respiratory support for an extensive left lung pneumonia. Note that the patient required intubation mechanical ventilation earlier and the patient was successfully extubated on 02/04/2020. His pulmonary workup that included a bronchoscopy and the lavage th at showed Enterobacter and the same micrograms and was also cultured from the pleural fluid that was aspirated on 02/03/2020. The patient currently remains on IV antibiotics and the patient is receiving IV Zosyn. Noted the chest exit shown significant consolidation and atelectasis of the left lung in addition to a small left-sided pleural effusion. Overnight, the patient became more hypoxic and less responsive. He had to be reintubated and he was brought into the intensive care unit for further care. This morning, the patient is on propofol running at 10 mg per KG per minute. He is easily arousable while being on sedation. He is also receiving normal sed rate of 75 mL an hour. He remains on assist control mode of ventilation at the rate of 24 the tidal volume of 450 and FiO2 of 40% with a PEEP of 5. The blood gas showed pH of 7.36 with a pCO2 of 37 and pO2 95. The patient is currently on no pressors. He is maintaining his own blood pressure. No fever. No chills. No leukocytosis with a white cell count 3.9. He has developed an acute kidney injury. As mentioned earlier creatinine came up to 5.8 and currently is down to 3.98 and the patient is going to require another session of hemodialysis today. The patient will be kept in ICU for now. I'm suggesting a repeat CAT scan of the chest to reevaluate the left lung. Based on my earlier review of the CAT scan that was done earlier, the patient has volume loss and extensive consolidation with a component of pleural fluid. I think this is essentially small at this point in time. He is on a prednisone burst taper currently on 30 mg by mouth daily. He is on Lovenox 30 mg subcu for DVT prophylaxis. He is on Levemir insulin 22 units at bedtime in addition to a size care coverage. The patient is also to be started enteral feeding for nutritional support. 02/12/2020, the patient is being seen for a follow-up. The patient is currently extubated. 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 He was kept on BiPAP at a pressure of 14/7 cm of water and FiO2 of 50%. He is much more comfortable at this point in time is breathing adequately. He is communicating and is awake and alert. Chest x-ray shows significant volume loss on the left with significant opacification of the left lung, however there is some slight improvement in the upper outer left lung with some improved aeration the left upper lobe area. The patient also has a mild right lower lobe pulmonary infiltration. Based on this, I contacted interventional radiology. I requested an ultrasound-guided thoracentesis and another 500 mL of pleural fluid was aspirated from the patient's lung s uccessfully. Postprocedure chest x-ray shows significant improvement in aeration of the left lung. Nevertheless distal constellation of the left lower lobe along with some volume loss. The patient will be kept on the BiPAP overnight. I contacted the sister and I also updated her on the condition. Meanwhile, the patient will be kept on DuoNeb nebulized treatments on the clock and the patient is also on IV Zosyn regarding the gram-negative pneumonia with a parapneumonic effusion that was attributed to be related to Enterobacter. Repeat sputum sample was also sent and it's still growing gram-negative bacillus and would awaiting final cultures and sensitivities. In addition, the patient i s going to undergo hemodialysis today. IV fluids at [facility] The patient is seen today 02/13/2020 in follow-up on the selective care unit. He was transferred out of the ICU earlier this morning. He is sitting up at the bedside. Awake and alert in no acute distress. He is currently maintaining good O2 saturations in the high 90s on 7 L high flow nasal cannula. She's been afebrile. Hemodynamically stable. Initial pleural fluid cultures from 02/03/2020 were positive for alpha hemolytic streptococcus, Enterobacter gergoviae, Enterobacter cloacae. Follow-up fluid cultures from 02/12/2020 are p ending. White count 5.3. Hemoglobin 9.3. Platelet count 53,000. Sodium 127. Potassium 4.3. Creatinine 2.69. Is currently on Zosyn along with bronchodilators, oral prednisone, IV diuretics. Lovenox for DVT prophylaxis. The patient is seen today 02/14/2020 in follow-up on the selective care unit. He is sitting up at the bedside. Awake and alert in no acute distress. Denies any worsening shortness of breath. He has a productive cough of grayish brown sputum. Cultures positive for Acinetobacter Ivy/haemol which is quite a resistant organism. White count 5.7. Hemoglobin 9.9. Sodium 131. Potassium 4.3. Creatinine 3.43. He remains on DuoNeb inhalations, Symbicort, redness hi m. Continued on IV diuretics. Currently on antibiotics in the form of Zosyn. Chest x-ray continues to show basilar effusion and associated atelectasis. The patient is seen today 02/15/2020 in follow-up on selective care unit. He is currently up ambulating with physical therapy. He is doing quite well. No worsening shortness of breath, cough or congestion. 18 O2 saturations in the high 90s on 3 L/m per nasal cannula. Cultures positive for Acinetobacter Ivy/haemol which is quite a resistant organism. Currently on Zosyn. White count 6.3. Hemoglobin 9.5. Sodium 132. Potassium 5.1. Creatinine 4.33. He remains on fluid restrictions. Chest x-ray reveals stable bilateral effusions. He remains on bronchodilators, prednisone. Remains on IV diuretics. The patient is seen today February 16 2020 follow-up on the selective care unit. He is currently resting fairly comfortably in bed. He is being concern today is continued significant edema the scrotum. He did receive hemodialysis yesterday. Hemodialysis is planned for today. His creatinine is 3.51. He is less short of breath. He started 2 L/m per nasal cannula to maintain O2 saturation in low 90s. White count 7.3. Hemoglobin 9.5. Platelet count 50,000. Sodium 135. Potassium 4.3. Creatinine 2.51. He remains on Lasix 40 mg IV twice a day. Patient is seen today 02/17/2020 in follow-up on selective care unit. He is awake and alert in no acute distress. Resting more comfortably in bed. He did receive hemodialysis yesterday and again today. His scrotal swelling has improved and the patient is hoping to go home soon. He plans to stay with his sister upon discharge. He denies any worsening shortness of breath, cough or congestion. He is maintaining O2 saturation the mid 90s on 2 L/m per nasal ruma tito. Sodium 138. Potassium 4.4. Creatinine 2.92. He remains on antibiotics in the form of Zosyn for his Acinetobacter Ivy/haemol sputum. We were reconsulted on the patient today 02/22/2020 after he had developed altered mental status and pulled out his dialysis catheter and IVs and had sign ificant blood loss. He did require 1 unit of packed blood cell replacement. The plan is for replacement of aged catheter tomorrow. He did have a follow-up chest x-ray that showed recurrent left-sided near complete opacity. He is maintaining O2 saturations in the mid 90s on 5 L high flow nasal cannula. Ultrasound of the left chest pending. Patient was reevaluated today on 02/23/20. This morning, patient had a CODE BLUE, arrested, went into pulseless electrical activity, this was at 8:21 AM this morning. CPR was started, his initial rhythm was asystole. Patient received epinephrine, total of 5 A. During the code he also received 3 A of bicarb. 1 g of calcium chloride and magnesium bolus. And patient was coded basically from 8: 21 until 8: 33. A.m. At 8:34, patient lost pulse again, CPR was resumed. Patient was shocked once, and then he had return of spontaneous circulation amiodarone was bolused. In the meantime the patient was intubated, and he was transferred to the intensive care unit. I saw the patient in the ICU, performed bronchoscopy on the patient for collapse of left lung, also placed lines in the patient including a right femoral triple-lumen catheter, and a left radial arterial line. Patient was supposed to undergo dialysis today, however he pulled out his dialysis catheter sometime yesterday, and this was basically the second catheter that he pulled out. Vascular surgery was supposed to have a catheter placed before he arrested. Post code ABG showed a pO2 of 175 pCO2 of 62 pH of 7.13. Apparently his daughter was notified by the physician who ran the code earlier today about his overall status. Patient is now on mechanical ventilation, he is on assist control rate of 34, tidal volume is 450 FiO2 is 100% and PEEP of 5. ABG showed a pO2 of 77 pCO2 of 37 and pH of 7.35. Follow-up chest x-ray showed reexpansion of the left lung, patient is also on propofol at 40 mcg/kg/m, considering his bicarb level, the sodium bicarb drip was discontinued, and the patient was given Lasix 80 mg IV push every 12 hours, seen by nephrology today, the plan is to hold dialysis today, repeat labs in the morning, and decide on placement of another dialysis catheter which will be deferred cath that he received on this admission. Objective - Vital Signs Vital signs: Vital Signs Temp 96.9 F L 02/23/20 00:00 Pulse 64 02/23/20 12:21 Resp 18 02/23/20 04:00 BP 93/57 02/23/20 04:00 Pulse Ox 90 L 02/23/20 04:00 Intake & Output 02/22/20 02/23/20 02/23/20 18:59 06:59 18:59 Intake Total 665 1230 Output Total 100 Balance 665 1230 -100 Weight 60 kg Intake: IV 70 Sodium Chloride 0.9% 1, 70 000 ml @ 10 mls/hr IV . Q24H JOSY Rx#:[id number] Intake, IV Titration 100 Amount Piperacillin-Tazobactam 3 100 .375 gm In Sodium Chloride 0.9% 100 ml @ 25 mls/hr IVPB Q8H JOSY Rx#: [id number] Oral 665 750 Blood Product 0 310 Rc As-1 Unit 0 310 [id number] Output: Urine 100 Other: Voiding Method Indwelling Catheter Indwelling Catheter # Voids 0 ABP, PAP, CO, CI - Last Documented Arterial Blood Pressure 183/72 - Exam GENERAL EXAM: Revealed 59-year-old white male intubated, mechanically ventilated, sedated, unresponsive to any stimuli. HEENT: Atraumatic, normocephalic, and orotracheal tube and orogastric tube are intact. CHEST: No chest wall deformity. LUNGS: Good breath sounds on the right side, diminished on the left side. No crackles or rhonchi or wheezes. Symmetrical chest expansion noted. CVS: S1 and S2 normal with no audible murmur, regular rhythm. ABDOMEN: No hepatosplenomegaly, normal bowel sounds, no guarding or rigidity. SPINE: No scoliosis or deformity SKIN: Multiple areas of ecchymosis and skin changes related to multiple catheters and secondary to multiple blood draws. CENTRAL NERVOUS SYSTEM: Sedated, cannot assess, unresponsive to any stimuli at present.. EXTREMITIES: One plus bipedal edema noted. Good pulses bilaterally - Labs CBC & Chem 7: 02/23/20 08:55 02/23/20 08:55 Labs: Abnormal Lab Results - Last 24 Hours (Table) 02/22/20 02/22/20 02/22/20 Range/Units 10:31 17:10 20:07 RBC (4.30-5.90) m/uL Hgb (13.0-17.5) gm/dL Hct (39.0-53.0) % MCHC (31.0-37.0) g/dL RDW (11.5-15.5) % Plt Count (150-450) k/uL Lymphocytes # (1.0-4.8) k/uL ABG pH (7.35-7.45) ABG pCO2 (35-45) mmHg ABG pO2 (83-108) mmHg ABG HCO3 (21-25) mmol/L ABG O2 Saturation (94-97) % Carbon Dioxide (22-30) mmol/L BUN (9-20) mg/dL Creatinine (0.66-1.25) mg/dL Glucose (74-99) mg/dL POC Glucose (mg/dL) 116 H 266 H (75-99) mg/dL Calcium (8.4-10.2) mg/dL Phosphorus (2.5-4.5) mg/dL Magnesium (1.6-2.3) mg/dL Total Protein (6.3-8.2) g/dL Crossmatch See Detail 02/22/20 02/23/20 02/23/20 Range/Units 20:26 04:37 05:40 RBC 3.07 L 3.06 L (4.30-5.90) m/uL Hgb 9.2 L 9.1 L (13.0-17.5) gm/dL Hct 28.8 L 28.7 L (39.0-53.0) % MCHC (31.0-37.0) g/dL RDW 15.6 H (11.5-15.5) % Plt Count 38 L 34 L (150-450) k/uL Lymphocytes # 0.3 L (1.0-4.8) k/uL ABG pH (7.35-7.45) ABG pCO2 (35-45) mmHg ABG pO2 (83-108) mmHg ABG HCO3 (21-25) mmol/L ABG O2 Saturation (94-97) % Carbon Dioxide (22-30) mmol/L BUN (9-20) mg/dL Creatinine (0.66-1.25) mg/dL Glucose (74-99) mg/dL POC Glucose (mg/dL) 271 H (75-99) mg/dL Calcium (8.4-10.2) mg/dL Phosphorus (2.5-4.5) mg/dL Magnesium (1.6-2.3) mg/dL Total Protein (6.3-8.2) g/dL Crossmatch 02/23/20 02/23/20 02/23/20 Range/Units 05:40 06:09 08:24 RBC (4.30-5.90) m/uL Hgb (13.0-17.5) gm/dL Hct (39.0-53.0) % MCHC (31.0-37.0) g/dL RDW (11.5-15.5) % Plt Count (150-450) k/uL Lymphocytes # (1.0-4.8) k/uL ABG pH (7.35-7.45) ABG pCO2 (35-45) mmHg ABG pO2 (83-108) mmHg ABG HCO3 (21-25) mmol/L ABG O2 Saturation (94-97) % Carbon Dioxide 21 L (22-30) mmol/L BUN 59 H (9-20) mg/dL Creatinine 5.03 H (0.66-1.25) mg/dL Glucose 242 H (74-99) mg/dL POC Glucose (mg/dL) 217 H 207 H (75-99) mg/dL Calcium 8.0 L (8.4-10.2) mg/dL Phosphorus (2.5-4.5) mg/dL Magnesium (1.6-2.3) mg/dL Total Protein 5.6 L (6.3-8.2) g/dL Crossmatch 02/23/20 02/23/20 02/23/20 Range/Units 08:52 08:55 08:55 RBC 3.20 L (4.30-5.90) m/uL Hgb 9.4 L (13.0-17.5) gm/dL Hct 30.6 L (39.0-53.0) % MCHC 30.5 L (31.0-37.0) g/dL RDW 15.6 H (11.5-15.5) % Plt Count 42 L (150-450) k/uL Lymphocytes # (1.0-4.8) k/uL ABG pH 7.14 L* (7.35-7.45) ABG pCO2 62 H (35-45) mmHg ABG pO2 175 H (83-108) mmHg ABG HCO3 (21-25) mmol/L ABG O2 Saturation 99.7 H (94-97) % Carbon Dioxide 19 L (22-30) mmol/L BUN 60 H (9-20) mg/dL Creatinine 4.83 H (0.66-1.25) mg/dL Glucose 200 H (74-99) mg/dL POC Glucose (mg/dL) (75-99) mg/dL Calcium (8.4-10.2) mg/dL Phosphorus 9.9 H* (2.5-4.5) mg/dL Magnesium 5.4 H* (1.6-2.3) mg/dL Total Protein (6.3-8.2) g/dL Crossmatch 02/23/20 02/23/20 02/23/20 Range/Units 10:00 11:37 12:16 RBC (4.30-5.90) m/uL Hgb (13.0-17.5) gm/dL Hct (39.0-53.0) % MCHC (31.0-37.0) g/dL RDW (11.5-15.5) % Plt Count (150-450) k/uL Lymphocytes # (1.0-4.8) k/uL ABG pH 7.11 L* (7.35-7.45) ABG pCO2 67 H (35-45) mmHg ABG pO2 51 L* 77 L (83-108) mmHg ABG HCO3 20 L (21-25) mmol/L ABG O2 Saturation 82.5 L (94-97) % Carbon Dioxide (22-30) mmol/L BUN (9-20) mg/dL Creatinine (0.66-1.25) mg/dL Glucose (74-99) mg/dL POC Glucose (mg/dL) 142 H (75-99) mg/dL Calcium (8.4-10.2) mg/dL Phosphorus (2.5-4.5) mg/dL Magnesium (1.6-2.3) mg/dL Total Protein (6.3-8.2) g/dL Crossmatch Microbiology - Last 24 Hours (Table) 02/20/20 17:18 Blood Culture - Preliminary Blood No Growth after 48 hours 02/20/20 17:28 Blood Culture - Preliminary Blood No Growth after 48 hours Assessment and Plan Assessment: Impression: Cardiopulmonary arrest on 02/23/20. Previous hypoxic and hypercapnic respiratory failure required intubation previously on 02/03/20, and on 02/04/20. Since the patient had self extubation. Acute hypoxic/hypercapnic rest or failure requiring intubation and mechanical ventilation from 02/02, extubated on 02/03 had to be reintubated and self extubated Recurrent left-sided pleural effusion status post thoracentesis, fluid positive for Enterobacter and Streptococcus. Left sided gram-negative pneumonia secondary to Enterobacter with a left lower lobe consolidation. Status post bronchoscopy and BAL on 02/02 and 02/05 Chronic systolic congestive heart failure with ejection fraction of 25%. Chronic obstructive lung disease. 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 Type 2 diabetes with diabetic neuropathy Hypertension. Dyslipidemia. Nonischemic cardiomyopathy and LV dysfunction with previous AICD placement. Chronic pancreatitis. History of pancreatic cysts. Nonoliguric acute kidney injury secondary to acute tubular necrosis and cardio renal syndrome been on hemodialysis since 02/10/20. Acid level and anoxic brain injury since the patient had a relatively prolonged cardiac arrest and CPR while inpatient Recommendation: Ventilatory support. Status post bronchoscopy and washing of the left lung, on 02/23/20. Continue hemodialysis, patient will need a dialysis catheter to be placed by vascular surgery. Continue present treatment plan, Continue antibiotics and bronchodilators. Patient is obviously critically ill, and may have to discuss his condition with family again, may have to consider comfort care measures. Prognosis is very poor. Reassess mental status in a.m., May have to consider neurological evaluation. Evaluate for possible anoxic brain injury. Critical care time is over 30 minutes, not including time spent on procedures on this patient. Time with Patient: Greater than 30
[2020-02-23] MEDS ORDERED: CHLORHEXIDINE GLUCONATE 15 ML CUP MUCOUS MEM ONE (17:30)
[2020-02-23 17:31] LABS: Glucose,Whole Blood 52 mg/dL (75-99)
[2020-02-23] MEDS ORDERED: DEXTROSE 50% SYRINGE 50 ML IVP ONE ×2 (17:33→22:42)
[2020-02-23 17:34] LABS: Glucose,Whole Blood 41 mg/dL (75-99)
[2020-02-23] MEDS: SODIUM CHLORIDE 0.9% 1,000 ML IV SCH (17:47)
[2020-02-23 17:53] LABS: Glucose,Whole Blood 140 mg/dL (75-99)
[2020-02-23 17:59] LABS: Albumin 2.5 g/dL (3.5-5.0); Calcium 7.8 mg/dL (8.4-10.2); Potassium 3.8 mmol/L (3.5-5.1); Total Bilirubin 0.5 mg/dL (0.2-1.3); Total Protein 4.1 g/dL (6.3-8.2)
[2020-02-23 18:47] LABS: Anisocytosis Slight; Basophils % (A) 0 %; Eosinophils # (A) 0.1 k/uL (0-0.7); Eosinophils % (A) 1 %; HCT 25.2 % (39.0-53.0); Lymphocytes # (A) 0.7 k/uL (1.0-4.8); Lymphocytes % (A) 9 %; MCH 28.4 pg (25.0-35.0); MCHC 31.8 g/dL (31.0-37.0); Mean Platelet Volume 12.4; Monocytes # (A) 0.4 k/uL (0-1.0); Monocytes % (A) 6 %; Neutrophils # (A) 6.6 k/uL (1.3-7.7); Neutrophils % (A) 84 %; RBC 2.82 m/uL (4.30-5.90); RDW 16.1 % (11.5-15.5); WBC 7.9 k/uL (3.8-10.6)
[2020-02-23 18:48] LABS: MCV 89.2 fL (80.0-100.0); Platelet Count 57 k/uL (150-450)
--- NOTE | 2020-02-23 20:48 | P.PN ---
Subjective On-call hospitalist covering Dr. Lind This is a 59 years old male with multiple medical problems was admitted for dyspnea and found to have acute on chronic systolic CHF with ejection fraction 25-30% Review of his history of nonischemic cardiomyopathy and his course was complicated by acute kidney injury secondary to ATN and cardiorenal syndrome that he needed hemodialysis since 02/09, where currently he is still undergoing hemodialysis with nephrology team on the case. Also he has cirrhosis secondary to left pneumonia with recurrent left pleural effusion status post thoracocentesis with culture growing Streptococcus, and Citrobacter and Enterobacter, infectious disease on the case and his been treated with Zosyn. Also recent steroids per pulmonary team recommendation. Today THE PATIENT IS AWAKE BUT IS MORE LETHARGIC PER STAFF THIS IS THE FIRST [facility] IN THE PATIENT WE GOING TO CHECK URINALYSIS HE IS HEMODYNAMICALLY STABLE AND HE IS SATURATING 95% ON 4 L OXYGEN, ACTUALLY PULMONARY TEAM. FOR DISCHARGE. ALSO PATIENT HAS BEEN FOLLOWED BY SEVERAL CONSULTANTS INCLUDING BUSINESS MANAGER COLLEGE OR [employer]IV[employer] AND [employer]LLAR SETTER 02/22/2020 Today patient was awake and alert, he answered my questions appropriately but by the end of the encounter he wanted to sleep, I suspect he is more lethargic related to his infection , he feels irritated at the bladder side and his lower abdomen. However heis in the hospital and Y his been hospitalized for. his vitals were stable in the morning and he is saturating 99% on 5 L oxygen Nasal cannula. Urine analysis from yesterday was still abnormal and suspicious for infection with large blood and large leukocyte esterase and more than 182 RBCs. Discussed with staff to send urine culture After rounding the patient was found in bed WITH blood after he pulled out his tubes and dialysis catheter, shortly he became unresponsive and DEEPAK RHODES was called however he regained consciousness and the code was stopped, Dr. Saab was at bedside and bleeding was stopped. Blood pressure was low 80/45 and 1 unit of blood transfusion was ordered. Please refer to the event note for more details. And we will check hemoglobin and resolved CBC after blood transfusion, further recommendation based on his clinical situation and lab results as well as vitals Currently he remains on Zosyn and prednisone 30 mg, we going to decrease the dose to 20 mg his prognosis remains critical 02/23/2020 Today morning patient developed asystole, DEEPAK RHODES was called and he underwent CPR per protocol. The [place] was about 17 minutes as per staff. Which patient got intubated and transferred to the ICU for further management. Patient currently remains on mechanical ventilation with pulmonary/critical care team R following closely. Patient remains on antibiotics with Zosyn. And some steroids. An anoxic brain injury is suspected Given the patient comorbidities and the complexities and needed several episodes of reintubation, with 2 episodes of Coding between yesterday and today, making the prognosis even more poor. Critical care team suggesting possible consideration of comfort care Review of systems:/A Active Medications Generic Name Dose Route Start Last Admin Trade Name Freq PRN Reason Stop Dose Admin Albuterol/Ipratropium 3 ml 02/04/20 10:06 02/14/20 23:19 Ipratropium-Albuterol 3 Ml Neb INHALATION 3 ml RT-Q2H PRN Administration Shortness Of Breath Or Wheezing Albuterol/Ipratropium 3 ml 02/07/20 08:00 02/23/20 19:50 Ipratropium-Albuterol 3 Ml Neb INHALATION 3 ml RT-QID JOSY Administration Alprazolam 0.25 mg 02/09/20 14:49 02/22/20 22:22 Alprazolam 0.25 Mg Tab PO 0.25 mg QID PRN Administration Anxiety Lipase/Protease/Amylase 4 each 02/03/20 07:30 02/23/20 07:00 Lipase 5,000/Protease 17,000/Amylase 24,000 PO 4 each W/BRKFST JOSY Administration Atorvastatin Calcium 10 mg 02/02/20 21:00 02/22/20 21:44 Atorvastatin 10 Mg Tab PO 10 mg HS JOSY Administration Budesonide/Formoterol Fumarate 2 puff 02/06/20 20:00 02/23/20 19:50 Symbicort 160-4.5 Mcg Inhaler INHALATION Not Given RT-BID JOSY Calcium Acetate 1,334 mg 02/19/20 17:30 02/23/20 17:41 Calcium Acetate 667 Mg Tab PO 1,334 mg TID-W/MEALS JOSY Administration Darbepoetin Van 40 mcg 02/13/20 09:00 02/20/20 13:48 Darbepoetin Van 40 Mcg/0.4 Ml Syringe SQ 40 mcg Q7D JOSY Administration Docusate Sodium 100 mg 02/13/20 20:39 02/21/20 09:54 Docusate 100 Mg Cap PO 100 mg BID PRN Administration Constipation Furosemide 80 mg 02/23/20 12:00 02/23/20 12:22 Furosemide 10 Mg/Ml 10 Ml Vial IV 80 mg Q12HR JOSY Administration Heparin Sodium (Porcine) 5,000 unit 02/17/20 16:00 02/23/20 15:42 Heparin Sodium,Porcine 5,000 Unit/Ml 1 Ml Vial SQ Not Given Q8HR JOSY Sodium Chloride 1,000 mls @ 10 mls/hr 02/09/20 13:30 02/23/20 17:47 Saline 0.9% IV 10 mls/hr .Q24H JOSY Administration Propofol 1,000 mg/ IV Solution 100 mls @ 0 mls/hr 02/23/20 12:30 02/23/20 12:50 IV 30 mcg/kg/min .Q0M JOSY 10.8 mls/hr Titration Protocol Titrate Norepinephrine Bitartrate 8 mg 258 mls @ 5.805 mls/hr 02/23/20 12:30 02/23/20 19:06 / Sodium Chloride IV 0.08 mcg/kg/min .Q24H JOSY 9.288 mls/hr Titration Protocol 0.05 MCG/KG/MIN Piperacillin Sod/Tazobactam 100 mls @ 25 mls/hr 02/24/20 00:00 Sod 3.375 gm/ Sodium Chloride IVPB Q12H [facility] Insulin Aspart 0 unit 02/23/20 12:00 02/23/20 17:41 Insulin Aspart (Novolog) 100 Unit/Ml Vial SQ Not Given Q6HR [facility] Protocol Insulin Detemir 22 unit 02/14/20 22:15 02/22/20 21:44 Insulin Detemir (Levemir) 100 Unit/Ml Syr SQ 22 unit HS JOSY Administration Insulin Human Regular 6.2 unit 02/07/20 07:30 Insulin Regular Bolus (From Drip Bag) 0.1 unit/kg (6.2 unit) IV ONCE PRN Blood Sugar - High Isosorbide Mononitrate 15 mg 02/22/20 09:00 02/23/20 10:40 Isosorbide Mononitrate Er 15 Mg Tab PO Not Given DAILY [facility] Metoprolol Succinate 25 mg 02/03/20 09:00 02/23/20 10:41 Metoprolol Succinate (Er) 25 Mg Tab.Er.24h PO Not Given DAILY [facility] Naloxone HCl 0.2 mg 02/02/20 17:14 02/10/20 19:26 Naloxone 0.4 Mg/Ml 1 Ml Vial IV 0.2 mg Q2M PRN Administration Opioid Reversal Nicotine 1 patch 02/02/20 23:08 Nicotine 7mg/24hr Patch TRANSDERM DAILY PRN NICOTINE ADDICTION Pantoprazole Sodium 40 mg 02/02/20 17:16 02/21/20 09:54 Pantoprazole 40 Mg Tablet PO 40 mg DAILY PRN Administration GERDS Phenazopyridine HCl 100 mg 02/22/20 16:00 02/23/20 17:36 Phenazopyridine 100 Mg Tab PO Not Given TID [facility] Prednisone 20 mg 02/23/20 09:00 02/23/20 10:43 Prednisone 10 Mg Tab PO Not Given DAILY [facility] Pregabalin 300 mg 02/03/20 09:00 02/23/20 10:42 Pregabalin 100 Mg Cap PO Not Given BID [facility] Tamsulosin HCl 0.4 mg 02/21/20 08:30 02/23/20 10:40 Tamsulosin 0.4 Mg Cap.Er.24h PO Not Given PC-BRKFST [facility] Objective - Vital Signs Vital signs: Vital Signs Temp 96.9 F L 02/23/20 00:00 Pulse 64 02/23/20 12:21 Resp 18 02/23/20 04:00 BP 93/57 02/23/20 04:00 Pulse Ox 90 L 02/23/20 04:00 Intake & Output 02/22/20 02/23/20 02/23/20 18:59 06:59 18:59 Intake Total 665 1230 Output Total 100 Balance 665 1230 -100 Weight 60 kg Intake: IV 70 Sodium Chloride 0.9% 1, 70 000 ml @ 10 mls/hr IV . Q24H [facility] Rx#:[id number] Intake, IV Titration 100 Amount Piperacillin-Tazobactam 3 100 .375 gm In Sodium Chloride 0.9% 100 ml @ 25 mls/hr IVPB Q8H [facility] Rx#: [id number] Oral 665 750 Blood Product 0 310 Rc As-1 Unit 0 310 [id number] Output: Urine 100 Other: Voiding Method Indwelling Catheter Indwelling Catheter # Voids 0 ABP, PAP, CO, CI - Last Documented Arterial Blood Pressure 183/72 - Exam -GENERAL: The patient is sedated and intubated HEENT: Pupils are round and equally reacting to light. EOMI. No scleral icterus. No conjunctival pallor. Normocephalic, atraumatic. No pharyngeal erythema. No thyromegaly. CARDIOVASCULAR: S1 and S2 present. No murmurs, rubs, or gallops. PULMONARY: Chest is clear to auscultation, no wheezing or crackles. ABDOMEN: Soft, nontender, nondistended, normoactive bowel sounds. No palpable organomegaly. MUSCULOSKELETAL: No joint swelling or deformity. EXTREMITIES: No cyanosis, clubbing, or pedal edema. NEUROLOGICAL: Gross neurological examination did not reveal any focal deficits. SKIN: No rashes. no petechiae. - Labs CBC & Chem 7: 02/23/20 17:39 02/23/20 17:39 Labs: Abnormal Lab Results - Last 24 Hours (Table) 02/22/20 02/22/20 02/22/20 Range/Units 10:31 17:10 20:07 RBC (4.30-5.90) m/uL Hgb (13.0-17.5) gm/dL Hct (39.0-53.0) % MCHC (31.0-37.0) g/dL RDW (11.5-15.5) % Plt Count (150-450) k/uL Lymphocytes # (1.0-4.8) k/uL ABG pH (7.35-7.45) ABG pCO2 (35-45) mmHg ABG pO2 (83-108) mmHg ABG HCO3 (21-25) mmol/L ABG O2 Saturation (94-97) % Carbon Dioxide (22-30) mmol/L BUN (9-20) mg/dL Creatinine (0.66-1.25) mg/dL Glucose (74-99) mg/dL POC Glucose (mg/dL) 116 H 266 H (75-99) mg/dL Calcium (8.4-10.2) mg/dL Phosphorus (2.5-4.5) mg/dL Magnesium (1.6-2.3) mg/dL Total Protein (6.3-8.2) g/dL Crossmatch See Detail 02/22/20 02/23/20 02/23/20 Range/Units 20:26 04:37 05:40 RBC 3.07 L 3.06 L (4.30-5.90) m/uL Hgb 9.2 L 9.1 L (13.0-17.5) gm/dL Hct 28.8 L 28.7 L (39.0-53.0) % MCHC (31.0-37.0) g/dL RDW 15.6 H (11.5-15.5) % Plt Count 38 L 34 L (150-450) k/uL Lymphocytes # 0.3 L (1.0-4.8) k/uL ABG pH (7.35-7.45) ABG pCO2 (35-45) mmHg ABG pO2 (83-108) mmHg ABG HCO3 (21-25) mmol/L ABG O2 Saturation (94-97) % Carbon Dioxide (22-30) mmol/L BUN (9-20) mg/dL Creatinine (0.66-1.25) mg/dL Glucose (74-99) mg/dL POC Glucose (mg/dL) 271 H (75-99) mg/dL Calcium (8.4-10.2) mg/dL Phosphorus (2.5-4.5) mg/dL Magnesium (1.6-2.3) mg/dL Total Protein (6.3-8.2) g/dL Crossmatch 02/23/20 02/23/20 02/23/20 Range/Units 05:40 06:09 08:24 RBC (4.30-5.90) m/uL Hgb (13.0-17.5) gm/dL Hct (39.0-53.0) % MCHC (31.0-37.0) g/dL RDW (11.5-15.5) % Plt Count (150-450) k/uL Lymphocytes # (1.0-4.8) k/uL ABG pH (7.35-7.45) ABG pCO2 (35-45) mmHg ABG pO2 (83-108) mmHg ABG HCO3 (21-25) mmol/L ABG O2 Saturation (94-97) % Carbon Dioxide 21 L (22-30) mmol/L BUN 59 H (9-20) mg/dL Creatinine 5.03 H (0.66-1.25) mg/dL Glucose 242 H (74-99) mg/dL POC Glucose (mg/dL) 217 H 207 H (75-99) mg/dL Calcium 8.0 L (8.4-10.2) mg/dL Phosphorus (2.5-4.5) mg/dL Magnesium (1.6-2.3) mg/dL Total Protein 5.6 L (6.3-8.2) g/dL Crossmatch 02/23/20 02/23/20 02/23/20 Range/Units 08:52 08:55 08:55 RBC 3.20 L (4.30-5.90) m/uL Hgb 9.4 L (13.0-17.5) gm/dL Hct 30.6 L (39.0-53.0) % MCHC 30.5 L (31.0-37.0) g/dL RDW 15.6 H (11.5-15.5) % Plt Count 42 L (150-450) k/uL Lymphocytes # (1.0-4.8) k/uL ABG pH 7.14 L* (7.35-7.45) ABG pCO2 62 H (35-45) mmHg ABG pO2 175 H (83-108) mmHg ABG HCO3 (21-25) mmol/L ABG O2 Saturation 99.7 H (94-97) % Carbon Dioxide 19 L (22-30) mmol/L BUN 60 H (9-20) mg/dL Creatinine 4.83 H (0.66-1.25) mg/dL Glucose 200 H (74-99) mg/dL POC Glucose (mg/dL) (75-99) mg/dL Calcium (8.4-10.2) mg/dL Phosphorus 9.9 H* (2.5-4.5) mg/dL Magnesium 5.4 H* (1.6-2.3) mg/dL Total Protein (6.3-8.2) g/dL Crossmatch 02/23/20 02/23/20 02/23/20 Range/Units 10:00 11:37 12:16 RBC (4.30-5.90) m/uL Hgb (13.0-17.5) gm/dL Hct (39.0-53.0) % MCHC (31.0-37.0) g/dL RDW (11.5-15.5) % Plt Count (150-450) k/uL Lymphocytes # (1.0-4.8) k/uL ABG pH 7.11 L* (7.35-7.45) ABG pCO2 67 H (35-45) mmHg ABG pO2 51 L* 77 L (83-108) mmHg ABG HCO3 20 L (21-25) mmol/L ABG O2 Saturation 82.5 L (94-97) % Carbon Dioxide (22-30) mmol/L BUN (9-20) mg/dL Creatinine (0.66-1.25) mg/dL Glucose (74-99) mg/dL POC Glucose (mg/dL) 142 H (75-99) mg/dL Calcium (8.4-10.2) mg/dL Phosphorus (2.5-4.5) mg/dL Magnesium (1.6-2.3) mg/dL Total Protein (6.3-8.2) g/dL Crossmatch Microbiology - Last 24 Hours (Table) 02/20/20 17:18 Blood Culture - Preliminary Blood No Growth after 48 hours 02/20/20 17:28 Blood Culture - Preliminary Blood No Growth after 48 hours Assessment and Plan Assessment: Acute and chronic systolic nonischemic cardiomyopathy, ejection fraction 25-30% Asystole, status post quadruple, status post resuscitation. Currently intubated on mechanical ventilation for hypoxic respiratory failure Acute kidney injury needing hemodialysis secondary to acute and cardiorenal syndrome Sepsis secondary to pneumonia. Also rule out UTI Acute blood loss anemia secondary to pulling dialysis catheter about, status post blood transfusion History of recurrent left pleural effusion, status post thoracocentesis this admission with culture showing enterobacter, Acetobacter and symmetrical Plan: This is a pleasant 59 years old male who presents with CHF, AKA I on hemodialysis and pneumonia with pleural effusion. Continue with Zosyn. Check urine culture. Follow-up recommendation by several consultants including neph rologist, customer care representative and supervisor quilting. Dialysis catheter placement per Dr. Saab Labs and medication were reviewed.. Continue same treatment. Continue with symptomatic treatment. Resume home medication. Monitor lytes and vitals. DVT and GI prophylaxis. Further recommendationsas per clinical course of the patient DVT prophylaxis: Subcutaneous heparin GI Prophylaxis: Ppi Prognosis is guarded and poor
[2020-02-23 22:43] LABS: Glucose,Whole Blood 38 mg/dL (75-99)
[2020-02-23] MEDS: INSULIN DETEMIR (LEVEMIR) 100 UNIT/ML SYR SQ SCH (22:54)
[2020-02-23] MEDS: ATORVASTATIN 10 MG TAB PO SCH (22:58)
[2020-02-23 23:08] LABS: Glucose,Whole Blood 141 mg/dL (75-99)
[2020-02-23] MEDS: CHLORHEXIDINE GLUCONATE 15 ML CUP MUCOUS MEM SCH (23:13)
--- NOTE | 2020-02-23 23:49 | PN ---
PROGRESS NOTE DATE OF SERVICE: 02/23/2020. INTERVAL HISTORY: Patient did have respiratory and cardiac arrest this morning. The patient has been resuscitated, intubated and has been transferred to the ICU. The patient is currently on low-dose pressor support. FiO2 is currently 100%. No significant purulent secretions through the ET reported by the nursing staff. The patient did pull out his PermCath yesterday and did have a small bruise on the right upper chest wall. PHYSICAL EXAMINATION: Blood pressure 113/69, pulse of 67, temperature is 98. He is 92% on 100% FiO2. General description is a middle-aged male, intubated on the vent. Respiratory system: Unlabored breathing, decreased breath sounds in the bases. No wheeze. HEART: S1, S2. Regular rate and rhythm. ABDOMEN: Soft, no tenderness. The patient did have a bruise over the chest wall. LABS: Hemoglobin is 8, white count 7.9, BUN of 62, creatinine 4.78. DIAGNOSTIC IMPRESSION AND PLAN: Patient with acute respiratory failure which is likely multifactorial. Status post cardiac arrest and concern for aspiration pneumonia and was recently treated for Enterobacter pneumonia. Patient is currently on Zosyn. He is status post bronchoscopy. Those cultures will be followed and bruise on the chest wall will be monitored by placing a line . This was discussed with the nursing staff and continue supportive care. MMODL / IJN: [id number] /
[2020-02-24] MEDS ORDERED: DEXTROSE 50% SYRINGE 50 ML IVP ONE ×2 (03:43→09:56)
[2020-02-24 03:44] LABS: Glucose,Whole Blood 41 mg/dL (75-99)
[2020-02-24 03:44] LABS: Glucose,Whole Blood 37 mg/dL (75-99)
[2020-02-24] MEDS: INSULIN ASPART (NovoLOG) 100 UNIT/ML VIAL SQ SCH (03:45)
[2020-02-24 04:02] LABS: Glucose,Whole Blood 141 mg/dL (75-99)
[2020-02-24 05:14] LABS: ABG Base Excess -3.5 mmol/L; ABG HCO3 20 mmol/L (21-25); ABG Oxygen Saturation 99.8 % (94-97); ABG PCO2 25 mmHg (35-45); ABG PO2 153 mmHg (83-108); ABG TCO2 20 mmol/L (19-24); Allen Test Performed? Yes
[2020-02-24 05:15] LABS: Glucose,Whole Blood 75 mg/dL (75-99)
[2020-02-24 05:28] LABS: Basophils % (A) 0 %; Eosinophils % (A) 1 %; HCT 22.5 % (39.0-53.0); HGB 7.8 gm/dL (13.0-17.5); Lymphocytes # (A) 0.9 k/uL (1.0-4.8); Lymphocytes % (A) 14 %; MCH 29.7 pg (25.0-35.0); MCHC 34.5 g/dL (31.0-37.0); MCV 86.2 fL (80.0-100.0); Mean Platelet Volume 12.9; Monocytes # (A) 0.3 k/uL (0-1.0); Monocytes % (A) 5 %; Neutrophils # (A) 5.4 k/uL (1.3-7.7); Platelet Count 52 k/uL (150-450); RBC 2.61 m/uL (4.30-5.90); RDW 15.7 % (11.5-15.5); WBC 6.8 k/uL (3.8-10.6)
[2020-02-24 05:59] LABS: Calcium 7.7 mg/dL (8.4-10.2); Magnesium 3.8 mg/dL (1.6-2.3); Phosphorus 7.1 mg/dL (2.5-4.5); Potassium 3.6 mmol/L (3.5-5.1)
--- NOTE | 2020-02-24 07:57 | XR ---
EXAMINATION TYPE: XR chest 1V portable DATE OF EXAM: 02/24/2020 CLINICAL HISTORY: Difficulty breathing progress study. TECHNIQUE: Single AP portable upright view of the chest is obtained. COMPARISON: Chest x-ray from one day earlier and older studies. FINDINGS: Stable endotracheal and oral gastric tubes. Persistent cardiomegaly with single lead pacemaker/defibrillator. Persistent bilateral opacities with relative sparing of the upper lungs. Osseous structures remain intact. IMPRESSION: Cardiomegaly with moderate central vascular congestion and [id number] bilateral pl eural effusions. Correlate for CHF exacerbation. Underlying infiltrate is not excluded. No significan t change from one day earlier.
--- NOTE | 2020-02-24 08:37 | CDI ---
Documentation Clarification Form Date: 02/24/2020 08:14:40 AM From: Gini Santo RN, CCDS Admit Date: 02/02/2020 05:14:00 PM Patient Name: Jamal Choudhury Visit Number: [id number] ATTENTION: The Clinical Documentation Specialists (CDI) and [facility] Coding Staff appreciate your assistance in clarifying documentation. Please respond to the clarification below the line at the bottom and electronically sign. The CDI & [facility] Coding staff will review the response and follow-up if needed. Please note: Queries are made part of the Legal Health Record. If you have any questions, please contact the author of this message via ITS. Dr. Hi E Sheet Hypotension is documented in a pt requiring vasopressors and requires further specificity. Patient history/risk factors: COPD on Home O2 4L, nonischemic cardiomyopathy, AICD, NINI with ATN on CKD stage 3, Acute on Chronic Systolic CHF, HTN, DM, S/P code blue x 2, HD dependant Clinical Indicators: 02/20-02/21 Cardiology: "History of nonischemic cardiomyopathy with previous AICD placement, EF 25-30% Hypotension." 02/21 Event Note: Code Blue: "Arrived to room to find patient covered in blood with blood on bed, floor, wall, and dialysis cath laying on the floor.Patient had removed all lines and tubes. Patient laying in bed with blood coming from dialysis cath site. BP was undetectable on manual cuff.He was lethargic and O2 sat was undetectable.2 large bore IV established and 0.9 NS bolus started. Patient became decreased responsiveness and A team was converted to code blue.1 unit O neg blood to bedside.Type and screened and CBC ordered.NRB applied and O2 sat 78 %/ Patient hooked to pads and monitors. CBC reviewed and HgB 8.5.However BP went 80/45 will order 1 unit pRBC, check HgB 2 hours later. second 1L bolus ordered. DX: acute symptomatic bleeding Hypotension Acute respiratory failure with hypoxemia." 02/22 Event Note: "Code Blue: Patient maintained high BPs on epi gtt, and this was tapered down and switched to small dose Levophed. Bicarb gtt was started." 02/22 Pulmonary Procedure Notes: "Acute hypoxic respiratory failure and hypotension." Infectious Process: Sepsis, Enterobacter pneumonia with concern for aspiration pneumonia 02/22 1300 Vitals:Temp 98.1, HR 77, RR 35, ABP 80/54, Spo2 95% on 100% MV Treatment: 02/22-Current: Levophed gtt titrate for B/P 02/21 1 U PRBC's 02/21 2L 0.9% NS IVF bolus 02/22 1 L 0.9% NS IVF bolus followed by D5 with 3amps HCO3 gtt at 100 cc/hr In your professional opinion, can you please further the specify the hypotension if known? Septic Shock Suspected or known causative organism Any associated organ failure Cardiogenic Shock Cause Hypovolemic Shock Cause Other, please specify Unable to determine (Last Revision: December 2016) Hypovolemia MTDD
[2020-02-24 08:55] LABS: Large Platelets Present
--- NOTE | 2020-02-24 08:56 | CDI ---
Documentation Clarification Form Date: 02/24/2020 08:39:10 AM From: Gini Santo RN, CCDS Admit Date: 02/02/2020 05:14:00 PM Patient Name: Jamal Choudhury Visit Number: [id number] ATTENTION: The Clinical Documentation Specialists (CDI) and [facility] Coding Staff appreciate your assistance in clarifying documentation. Please respond to the clarification below the line at the bottom and electronically sign. The CDI & [facility] Coding staff will review the response and follow-up if needed. Please note: Queries are made part of the Legal Health Record. If you have any questions, please contact the author of this message via ITS. Dr. Hi E Sterling Encephalopathy is documented in the 02/09 Psych and Vascular consults, and increasing confusion continues to be documented, and requires further specificity. History/Risk Factors: DM2, NINI with ATN on CKD stage 3, Cardiorenal syndrome with acute on chronic systolic CHF, Sepsis with gram negative pneumonia, acute on chronic hypoxic and hypercapnic respiratory failure, recurrent left pleura effusion with Enterobacter and streptococcus, COPD, HTN, nonischemic cardiomyopathy, cardiac arrest x 2 this admission Clinical Indicators: 02/09 Pysch Consult: "Psychiatry has been consulted for hallucinations, confusion, and forgetfulness. Due to the patient's fluctuating cognition likely secondary to acute encephalopathy secondary to his multiple medical problems including acute kidney injury and subsequent electrolyte, the patient is unable to engage in appropriate medical decision making." 02/09 Vascular Consult: "Patient is very restless and not cooperative a tall he has some kind of encephalopathy patient just ate his lunch patient also has history of 4 COPD congestive heart failure and his ejection fraction is 25%." 02/21 ID: progress Note: "The patient remains to be slightly confused, pulling out his IVs and lethargic." 02/22 Pulmonary Progress Note: "Evaluate for possible anoxic brain injury." 02/12 CT Brain: negative Labs: multiple metabolic abnormalities since admission Treatment: Consults: Psych Xanax .25 mg PO QID Solumedrol IVP tapering Dose to po Prednisone Levophed gtt titrate for b/p Mechanical ventilation Diprovan gtt- titrate for sedation 02/09 1.5L 0.9% NS IVF Bolus 02/21 2 L 0.9% IVF bolus 02/22 1L 0.9% NS IVF Bolus 02/05-Current:Zosyn 3.375 gm dose adjusted frequency per pharmacy based on renal function In your professional opinion, can you please clarify the specific type of Encephalopathy, if known? Anoxic Encephalopathy Metabolic Encephalopathy Septic Encephalopathy Toxic Encephalopathy Other, please specify Unable to determine (Last Revision: June 2017) Multifactorial including metabolic, septic and decompensated cardiac encephalopathy MTDD
[2020-02-24] MEDS: ISOSORBIDE MONONITRATE ER 15 MG TAB PO SCH (08:57)
[2020-02-24] MEDS: PHENAZOPYRIDINE 100 MG TAB PO SCH ×3 (08:57→22:54)
[2020-02-24] MEDS: METOPROLOL SUCCINATE (ER) 25 MG TAB.ER.24H PO SCH (08:57)
[2020-02-24] MEDS: HEPARIN SODIUM,PORCINE 5,000 UNIT/ML 1 ML VIAL SQ SCH ×3 (08:58→23:27)
[2020-02-24] MEDS: SYMBICORT 160-4.5 MCG INHALER INHALATION SCH ×2 (09:50→21:07)
[2020-02-24] MEDS: IPRATROPIUM-ALBUTEROL 3 ML NEB INHALATION SCH ×4 (09:50→21:07)
[2020-02-24 09:54] LABS: Glucose,Whole Blood 46 mg/dL (75-99)
[2020-02-24] MEDS: NOREPINEPHRINE 8 MG in SODIUM CHLORIDE 0.9% 250 ML IV SCH (10:00)
[2020-02-24] MEDS: PREGABALIN 100 MG CAP PO SCH ×2 (10:02→21:43)
[2020-02-24] MEDS: TAMSULOSIN 0.4 MG CAP.ER.24H PO SCH (10:03)
[2020-02-24] MEDS: FUROSEMIDE 10 MG/ML 10 ML VIAL IV SCH ×2 (10:03→21:43)
[2020-02-24] MEDS: predniSONE 10 MG TAB PO SCH (10:03)
[2020-02-24] MEDS: LIPASE 5,000/PROTEASE 17,000/AMYLASE 24,000 PO SCH (10:07)
[2020-02-24] MEDS: CALCIUM ACETATE 667 MG TAB PO SCH ×3 (10:08→17:29)
[2020-02-24] MEDS: CHLORHEXIDINE GLUCONATE 15 ML CUP MUCOUS MEM SCH ×2 (10:08→21:43)
[2020-02-24 10:15] VITALS: BMI 26.0
[2020-02-24 10:27] LABS: Glucose,Whole Blood 88 mg/dL (75-99)
[2020-02-24] MEDS ORDERED: DEXTROSE 10% IN WATER 500 ML in EMPTY BAG 1 BAG IV SCH (10:30)
[2020-02-24] MEDS: PIPERACILLIN-TAZOBACTAM 3.375 GM in SODIUM CHLORIDE 0.9% 100 ML IVPB SCH ×2 (12:19→23:27)
[2020-02-24 12:22] LABS: Glucose,Whole Blood 91 mg/dL (75-99)
--- NOTE | 2020-02-24 14:29 | P.PN ---
Subjective Progress Note Date: 02/24/20 Principal diagnosis: Acute on chronic hypoxic respiratory failure, multifactorial 59-year-old male patient is well-known to me and the patient is currently in the intensive care unit after being reintubated yesterday for respiratory support for an extensive left lung pneumonia. Note that the patient required intubation mechanical ventilation earlier and the patient was successfully extubated on 02/04/2020. His pulmonary workup that included a bronchoscopy and the lavage th at showed Enterobacter and the same micrograms and was also cultured from the pleural fluid that was aspirated on 02/03/2020. The patient currently remains on IV antibiotics and the patient is receiving IV Zosyn. Noted the chest exit shown significant consolidation and atelectasis of the left lung in addition to a small left-sided pleural effusion. Overnight, the patient became more hypoxic and less responsive. He had to be reintubated and he was brought into the intensive care unit for further care. This morning, the patient is on propofol running at 10 mg per KG per minute. He is easily arousable while being on sedation. He is also receiving normal sed rate of 75 mL an hour. He remains on assist control mode of ventilation at the rate of 24 the tidal volume of 450 and FiO2 of 40% with a PEEP of 5. The blood gas showed pH of 7.36 with a pCO2 of 37 and pO2 95. The patient is currently on no pressors. He is maintaining his own blood pressure. No fever. No chills. No leukocytosis with a white cell count 3.9. He has developed an acute kidney injury. As mentioned earlier creatinine came up to 5.8 and currently is down to 3.98 and the patient is going to require another session of hemodialysis today. The patient will be kept in ICU for now. I'm suggesting a repeat CAT scan of the chest to reevaluate the left lung. Based on my earlier review of the CAT scan that was done earlier, the patient has volume loss and extensive consolidation with a component of pleural fluid. I think this is essentially small at this point in time. He is on a prednisone burst taper currently on 30 mg by mouth daily. He is on Lovenox 30 mg subcu for DVT prophylaxis. He is on Levemir insulin 22 units at bedtime in addition to a size care coverage. The patient is also to be started enteral feeding for nutritional support. 02/12/2020, the patient is being seen for a follow-up. The patient is currently extubated. 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 He was kept on BiPAP at a pressure of 14/7 cm of water and FiO2 of 50%. He is much more comfortable at this point in time is breathing adequately. He is communicating and is awake and alert. Chest x-ray shows significant volume loss on the left with significant opacification of the left lung, however there is some slight improvement in the upper outer left lung with some improved aeration the left upper lobe area. The patient also has a mild right lower lobe pulmonary infiltration. Based on this, I contacted interventional radiology. I requested an ultrasound-guided thoracentesis and another 500 mL of pleural fluid was aspirated from the patient's lung s uccessfully. Postprocedure chest x-ray shows significant improvement in aeration of the left lung. Nevertheless distal constellation of the left lower lobe along with some volume loss. The patient will be kept on the BiPAP overnight. I contacted the sister and I also updated her on the condition. Meanwhile, the patient will be kept on DuoNeb nebulized treatments on the clock and the patient is also on IV Zosyn regarding the gram-negative pneumonia with a parapneumonic effusion that was attributed to be related to Enterobacter. Repeat sputum sample was also sent and it's still growing gram-negative bacillus and would awaiting final cultures and sensitivities. In addition, the patient i s going to undergo hemodialysis today. IV fluids at [facility] The patient is seen today 02/13/2020 in follow-up on the selective care unit. He was transferred out of the ICU earlier this morning. He is sitting up at the bedside. Awake and alert in no acute distress. He is currently maintaining good O2 saturations in the high 90s on 7 L high flow nasal cannula. She's been afebrile. Hemodynamically stable. Initial pleural fluid cultures from 02/03/2020 were positive for alpha hemolytic streptococcus, Enterobacter gergoviae, Enterobacter cloacae. Follow-up fluid cultures from 02/12/2020 are p ending. White count 5.3. Hemoglobin 9.3. Platelet count 53,000. Sodium 127. Potassium 4.3. Creatinine 2.69. Is currently on Zosyn along with bronchodilators, oral prednisone, IV diuretics. Lovenox for DVT prophylaxis. The patient is seen today 02/14/2020 in follow-up on the selective care unit. He is sitting up at the bedside. Awake and alert in no acute distress. Denies any worsening shortness of breath. He has a productive cough of grayish brown sputum. Cultures positive for Acinetobacter Ivy/haemol which is quite a resistant organism. White count 5.7. Hemoglobin 9.9. Sodium 131. Potassium 4.3. Creatinine 3.43. He remains on DuoNeb inhalations, Symbicort, redness hi m. Continued on IV diuretics. Currently on antibiotics in the form of Zosyn. Chest x-ray continues to show basilar effusion and associated atelectasis. The patient is seen today 02/15/2020 in follow-up on selective care unit. He is currently up ambulating with physical therapy. He is doing quite well. No worsening shortness of breath, cough or congestion. 18 O2 saturations in the high 90s on 3 L/m per nasal cannula. Cultures positive for Acinetobacter Ivy/haemol which is quite a resistant organism. Currently on Zosyn. White count 6.3. Hemoglobin 9.5. Sodium 132. Potassium 5.1. Creatinine 4.33. He remains on fluid restrictions. Chest x-ray reveals stable bilateral effusions. He remains on bronchodilators, prednisone. Remains on IV diuretics. The patient is seen today February 16 2020 follow-up on the selective care unit. He is currently resting fairly comfortably in bed. He is being concern today is continued significant edema the scrotum. He did receive hemodialysis yesterday. Hemodialysis is planned for today. His creatinine is 3.51. He is less short of breath. He started 2 L/m per nasal cannula to maintain O2 saturation in low 90s. White count 7.3. Hemoglobin 9.5. Platelet count 50,000. Sodium 135. Potassium 4.3. Creatinine 2.51. He remains on Lasix 40 mg IV twice a day. Patient is seen today 02/17/2020 in follow-up on selective care unit. He is awake and alert in no acute distress. Resting more comfortably in bed. He did receive hemodialysis yesterday and again today. His scrotal swelling has improved and the patient is hoping to go home soon. He plans to stay with his sister upon discharge. He denies any worsening shortness of breath, cough or congestion. He is maintaining O2 saturation the mid 90s on 2 L/m per nasal ruma tito. Sodium 138. Potassium 4.4. Creatinine 2.92. He remains on antibiotics in the form of Zosyn for his Acinetobacter Ivy/haemol sputum. We were reconsulted on the patient today 02/22/2020 after he had developed altered mental status and pulled out his dialysis catheter and IVs and had sign ificant blood loss. He did require 1 unit of packed blood cell replacement. The plan is for replacement of aged catheter tomorrow. He did have a follow-up chest x-ray that showed recurrent left-sided near complete opacity. He is maintaining O2 saturations in the mid 90s on 5 L high flow nasal cannula. Ultrasound of the left chest pending. Patient was reevaluated today on 02/23/20. This morning, patient had a CODE BLUE, arrested, went into pulseless electrical activity, this was at 8:21 AM this morning. CPR was started, his initial rhythm was asystole. Patient received epinephrine, total of 5 A. During the code he also received 3 A of bicarb. 1 g of calcium chloride and magnesium bolus. And patient was coded basically from 8: 21 until 8: 33. A.m. At 8:34, patient lost pulse again, CPR was resumed. Patient was shocked once, and then he had return of spontaneous circulation amiodarone was bolused. In the meantime the patient was intubated, and he was transferred to the intensive care unit. I saw the patient in the ICU, performed bronchoscopy on the patient for collapse of left lung, also placed lines in the patient including a right femoral triple-lumen catheter, and a left radial arterial line. Patient was supposed to undergo dialysis today, however he pulled out his dialysis catheter sometime yesterday, and this was basically the second catheter that he pulled out. Vascular surgery was supposed to have a catheter placed before he arrested. Post code ABG showed a pO2 of 175 pCO2 of 62 pH of 7.13. Apparently his daughter was notified by the physician who ran the code earlier today about his overall status. Patient is now on mechanical ventilation, he is on assist control rate of 34, tidal volume is 450 FiO2 is 100% and PEEP of 5. ABG showed a pO2 of 77 pCO2 of 37 and pH of 7.35. Follow-up chest x-ray showed reexpansion of the left lung, patient is also on propofol at 40 mcg/kg/m, considering his bicarb level, the sodium bicarb drip was discontinued, and the patient was given Lasix 80 mg IV push every 12 hours, seen by nephrology today, the plan is to hold dialysis today, repeat labs in the morning, and decide on placement of another dialysis catheter which will be deferred cath that he received on this admission. Patient was reevaluated today on 02/24/20. Remains intubated and mechanically ventilated. His ventilator settings are assist control rate of 34 FiO2 of 60% tidal volume is 450 and PEEP of 5. ABG showed a pO2 of 153 pCO2 of 25 pH of 7.50 hence the patient was placed on lower FiO2 of 50%, and lower rate of 28 instead of 34. Patient is sedated on propofol at 3 0 mcg/kg/m. Norepinephrine at 0.04 mcg/kg/m IV fluid at KVO and today instructed to start enteral feeding, considering the patient has intermittent episodes of hypoglycemia, I recommended a D10 at 20 mL per hour. Since yesterday, his CODE STATUS was changed to DO NOT RESUSCITATE CODE STATUS as. His sister. Chest x-ray this morning showed moderate bilateral pleural effusions, and it is consistent mostly with CHF. Patient may or may not be dialyzed today, he doesn't have a hemodialysis catheter in place yet, hence I recommended Lasix 80 mg to be given IV push every 12 hours. Patient does not make much urine but he does respond intermittently to Lasix. WBC count today is 6.8 hemoglobin is 7.8. Electrolytes are normal bicarb is 19, BUN is 70 creatinine is 4.67. Objective - Vital Signs Vital signs: Vital Signs Temp 98.0 F 02/24/20 12:00 Pulse 76 02/24/20 12:39 Resp 28 H 02/24/20 12:00 BP 105/67 02/23/20 11:00 Pulse Ox 99 02/24/20 12:00 Intake & Output 02/23/20 02/24/20 02/24/20 18:59 06:59 18:59 Intake Total 1.8 411.761 143.12 Output Total 100 225 95 Balance -98.2 186.761 48.12 Weight 80 kg 80 kg Intake: IV 210 65 Dextrose 10% in Water 500 20 ml In Empty Bag 1 bag @ 20 mls/hr IV .Q24H [facility] Rx #:[id number] Piperacillin-Tazobactam 3 100 .375 gm In Sodium Chloride 0.9% 100 ml @ 25 mls/hr IVPB Q12H [facility] Rx# :[id number] Sodium Chloride 0.9% 1, 110 45 000 ml @ 10 mls/hr IV . Q24H [facility]OSY Rx#:[id number] Intake, IV Titration 1.8 201.761 78.12 Amount Norepinephrine 8 mg In 103.561 Sodium Chloride 0.9% 250 ml @ 0.05 MCG/KG/MIN 5. 805 mls/hr IV .Q24H [facility] Rx#:[id number] propofoL 1,000 mg In 1.8 98.2 78.12 Empty Bag 1 bag @ Titrate IV .Q0M [facility]Y Rx#: [id number] Output: Urine 100 225 95 Other: Voiding Method Indwelling Catheter Indwelling Catheter Indwelling Catheter # Voids 0 ABP, PAP, CO, CI - Last Documented Arterial Blood Pressure 130/56 - Exam GENERAL EXAM: Revealed 59-year-old white male intubated, mechanically ventilated, sedated, unresponsive to any stimuli. HEENT: Atraumatic, normocephalic, and orotracheal tube and orogastric tube are intact. CHEST: No chest wall deformity. LUNGS: Good breath bilaterally. Crackles at the bases. Symmetrical chest expansion. CVS: S1 and S2 normal with no audible murmur, regular rhythm. ABDOMEN: No hepatosplenomegaly, normal bowel sounds, no guarding or rigidity. SPINE: No scoliosis or deformity SKIN: Multiple areas of ecchymosis and skin changes related to multiple catheters and secondary to multiple blood draws. CENTRAL NERVOUS SYSTEM: Sedated, cannot assess,. EXTREMITIES: One plus bipedal edema noted. Good pulses bilaterally - Labs CBC & Chem 7: 02/24/20 05:15 02/24/20 05:15 Labs: Abnormal Lab Results - Last 24 Hours (Table) 02/23/20 02/23/20 02/23/20 Range/Units 17:30 17:32 17:39 RBC 2.82 L (4.30-5.90) m/uL Hgb 8.0 L (13.0-17.5) gm/dL Hct 25.2 L (39.0-53.0) % RDW 16.1 H (11.5-15.5) % Plt Count 57 L (150-450) k/uL Lymphocytes # 0.7 L (1.0-4.8) k/uL ABG pH (7.35-7.45) ABG pCO2 (35-45) mmHg ABG pO2 (83-108) mmHg ABG HCO3 (21-25) mmol/L ABG O2 Saturation (94-97) % Sodium (137-145) mmol/L Carbon Dioxide (22-30) mmol/L BUN (9-20) mg/dL Creatinine (0.66-1.25) mg/dL Glucose (74-99) mg/dL POC Glucose (mg/dL) 52 L 41 L (75-99) mg/dL Calcium (8.4-10.2) mg/dL Phosphorus (2.5-4.5) mg/dL Magnesium (1.6-2.3) mg/dL Total Protein (6.3-8.2) g/dL Albumin (3.5-5.0) g/dL 02/23/20 02/23/20 02/23/20 Range/Units 17:39 17:49 22:41 RBC (4.30-5.90) m/uL Hgb (13.0-17.5) gm/dL Hct (39.0-53.0) % RDW (11.5-15.5) % Plt Count (150-450) k/uL Lymphocytes # (1.0-4.8) k/uL ABG pH (7.35-7.45) ABG pCO2 (35-45) mmHg ABG pO2 (83-108) mmHg ABG HCO3 (21-25) mmol/L ABG O2 Saturation (94-97) % Sodium 134 L (137-145) mmol/L Carbon Dioxide (22-30) mmol/L BUN 62 H (9-20) mg/dL Creatinine 4.78 H (0.66-1.25) mg/dL Glucose 349 H (74-99) mg/dL POC Glucose (mg/dL) 140 H 38 L (75-99) mg/dL Calcium 7.8 L (8.4-10.2) mg/dL Phosphorus (2.5-4.5) mg/dL Magnesium (1.6-2.3) mg/dL Total Protein 4.1 L (6.3-8.2) g/dL Albumin 2.5 L (3.5-5.0) g/dL 02/23/20 02/24/20 02/24/20 Range/Units 23:06 03:40 03:43 RBC (4.30-5.90) m/uL Hgb (13.0-17.5) gm/dL Hct (39.0-53.0) % RDW (11.5-15.5) % Plt Count (150-450) k/uL Lymphocytes # (1.0-4.8) k/uL ABG pH (7.35-7.45) ABG pCO2 (35-45) mmHg ABG pO2 (83-108) mmHg ABG HCO3 (21-25) mmol/L ABG O2 Saturation (94-97) % Sodium (137-145) mmol/L Carbon Dioxide (22-30) mmol/L BUN (9-20) mg/dL Creatinine (0.66-1.25) mg/dL Glucose (74-99) mg/dL POC Glucose (mg/dL) 141 H 37 L 41 L (75-99) mg/dL Calcium (8.4-10.2) mg/dL Phosphorus (2.5-4.5) mg/dL Magnesium (1.6-2.3) mg/dL Total Protein (6.3-8.2) g/dL Albumin (3.5-5.0) g/dL 02/24/20 02/24/20 02/24/20 Range/Units 04:01 05:09 05:15 RBC 2.61 L (4.30-5.90) m/uL Hgb 7.8 L (13.0-17.5) gm/dL Hct 22.5 L (39.0-53.0) % RDW 15.7 H (11.5-15.5) % Plt Count 52 L (150-450) k/uL Lymphocytes # 0.9 L (1.0-4.8) k/uL ABG pH 7.50 H (7.35-7.45) ABG pCO2 25 L (35-45) mmHg ABG pO2 153 H (83-108) mmHg ABG HCO3 20 L (21-25) mmol/L ABG O2 Saturation 99.8 H (94-97) % Sodium (137-145) mmol/L Carbon Dioxide (22-30) mmol/L BUN (9-20) mg/dL Creatinine (0.66-1.25) mg/dL Glucose (74-99) mg/dL POC Glucose (mg/dL) 141 H (75-99) mg/dL Calcium (8.4-10.2) mg/dL Phosphorus (2.5-4.5) mg/dL Magnesium (1.6-2.3) mg/dL Total Protein (6.3-8.2) g/dL Albumin (3.5-5.0) g/dL 02/24/20 02/24/20 Range/Units 05:15 09:52 RBC (4.30-5.90) m/uL Hgb (13.0-17.5) gm/dL Hct (39.0-53.0) % RDW (11.5-15.5) % Plt Count (150-450) k/uL Lymphocytes # (1.0-4.8) k/uL ABG pH (7.35-7.45) ABG pCO2 (35-45) mmHg ABG pO2 (83-108) mmHg ABG HCO3 (21-25) mmol/L ABG O2 Saturation (94-97) % Sodium 136 L (137-145) mmol/L Carbon Dioxide 19 L (22-30) mmol/L BUN 70 H (9-20) mg/dL Creatinine 4.67 H (0.66-1.25) mg/dL Glucose (74-99) mg/dL POC Glucose (mg/dL) 46 L (75-99) mg/dL Calcium 7.7 L (8.4-10.2) mg/dL Phosphorus 7.1 H (2.5-4.5) mg/dL Magnesium 3.8 H (1.6-2.3) mg/dL Total Protein (6.3-8.2) g/dL Albumin (3.5-5.0) g/dL Microbiology - Last 24 Hours (Table) 02/23/20 20:20 Sputum Culture - Preliminary Sputum 02/20/20 17:18 Blood Culture - Preliminary Blood No Growth after 72 hours 11/25/20 17:28 Blood Culture - Preliminary Blood No Growth after 72 hours Assessment and Plan Assessment: Impression: Cardiopulmonary arrest on 02/23/20. Previous hypoxic and hypercapnic respiratory failure required intubation previously on 02/03/20, and on 02/04/20. Since the patient had self extubation. Acute hypoxic/hypercapnic rest or failure requiring intubation and mechanical ventilation from 02/02, extubated on 02/03 had to be reintubated and self extubated Recurrent left-sided pleural effusion status post thoracentesis, fluid positive for Enterobacter and Streptococcus. Left sided gram-negative pneumonia secondary to Enterobacter with a left lower lobe consolidation. Status post bronchoscopy and BAL on 02/02 and 02/05 Chronic systolic congestive heart failure with ejection fraction of 25%. Chronic obstructive lung disease. 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 Type 2 diabetes with diabetic neuropathy Hypertension. Dyslipidemia. Nonischemic cardiomyopathy and LV dysfunction with previous AICD placement. Chronic pancreatitis. History of pancreatic cysts. Nonoliguric acute kidney injury secondary to acute tubular necrosis and cardiorenal syndrome been on hemodialysis since 02/10/20. Patient removed his dialysis catheter on multiple occasions, presently does not have a dialysis catheter in place, nephrology is to address this issue. anoxic brain injury since the patient had a relatively prolonged cardiac arrest and CPR while inpatient, on 02/23/20. Status post bronchoscopy on 02/23/20. Recommendation: Ventilatory support. FiO2 decreased today to 50%, and assist control rate decreased down to 28. Continue tidal volume is 450 and PEEP of 5 Status post bronchoscopy and washing of the left lung, on 02/23/20. Continue hemodialysis, patient will need a dialysis catheter to be placed by vascular surgery. In the meantime we'll recommend Lasix 80 mg IV push every 12 hours. Continue present supportive care measures., Enteral feeding to be started. D10 for now because of recurrent hypoglycemic episodes. Continue antibiotics and bronchodilators. Patient is obviously critically ill, CODE STATUS was changed yesterday to DO NOT RESUSCITATE. Overall prognosis is extremely poor, may have to address the possibility of comfort care measures with his sister again. Prognosis is extremely poor Critical care time is over 30 minutes Time with Patient: Greater than 30
--- NOTE | 2020-02-24 14:52 | P.PN ---
Subjective Progress Note Date: 02/24/20 Follow-up for acute kidney injury on dialysis. Coded yesterday morning, PEA and asystole downtime of 15 minutes. Currently on ventilator, levo fed. Minimal urine output Objective - Vital Signs Vital signs: Vital Signs Temp 98.0 F 02/24/20 12:00 Pulse 76 02/24/20 12:39 Resp 28 H 02/24/20 12:00 BP 105/67 02/23/20 11:00 Pulse Ox 99 02/24/20 12:00 Intake & Output 02/23/20 02/24/20 02/24/20 18:59 06:59 18:59 Intake Total 1.8 411.761 230.672 Output Total 100 225 95 Balance -98.2 186.761 135.672 Weight 80 kg 80 kg Intake: IV 210 65 Dextrose 10% in Water 500 20 ml In Empty Bag 1 bag @ 20 mls/hr IV .Q24H [facility] Rx #:[id number] Piperacillin-Tazobactam 3 100 .375 gm In Sodium Chloride 0.9% 100 ml @ 25 mls/hr IVPB Q12H [facility] Rx# :[id number] Sodium Chloride 0.9% 1, 110 45 000 ml @ 10 mls/hr IV . Q24H [facility] Rx#:[id number] Intake, IV Titration 1.8 201.761 165.672 Amount Norepinephrine 8 mg In 103.561 37.152 Sodium Chloride 0.9% 250 ml @ 0.05 MCG/KG/MIN 5. 805 mls/hr IV .Q24H [facility] Rx#:[id number] propofoL 1,000 mg In 1.8 98.2 128.52 Empty Bag 1 bag @ Titrate IV .Q0M [facility] Rx#: [id number] Output: Urine 100 225 95 Other: Voiding Method Indwelling Catheter Indwelling Catheter Indwelling Catheter # Voids 0 ABP, PAP, CO, CI - Last Documented Arterial Blood Pressure 130/56 - Exam No acute distress S1-S2 heard Decreased breath sounds Trace edema - Labs CBC & Chem 7: 02/24/20 05:15 02/24/20 05:15 Labs: Abnormal Lab Results - Last 24 Hours (Table) 02/23/20 02/23/20 02/23/20 Range/Units 17:30 17:32 17:39 RBC 2.82 L (4.30-5.90) m/uL Hgb 8.0 L (13.0-17.5) gm/dL Hct 25.2 L (39.0-53.0) % RDW 16.1 H (11.5-15.5) % Plt Count 57 L (150-450) k/uL Lymphocytes # 0.7 L (1.0-4.8) k/uL ABG pH (7.35-7.45) ABG pCO2 (35-45) mmHg ABG pO2 (83-108) mmHg ABG HCO3 (21-25) mmol/L ABG O2 Saturation (94-97) % Sodium (137-145) mmol/L Carbon Dioxide (22-30) mmol/L BUN (9-20) mg/dL Creatinine (0.66-1.25) mg/dL Glucose (74-99) mg/dL POC Glucose (mg/dL) 52 L 41 L (75-99) mg/dL Calcium (8.4-10.2) mg/dL Phosphorus (2.5-4.5) mg/dL Magnesium (1.6-2.3) mg/dL Total Protein (6.3-8.2) g/dL Albumin (3.5-5.0) g/dL 02/23/20 02/23/20 02/23/20 Range/Units 17:39 17:49 22:41 RBC (4.30-5.90) m/uL Hgb (13.0-17.5) gm/dL Hct (39.0-53.0) % RDW (11.5-15.5) % Plt Count (150-450) k/uL Lymphocytes # (1.0-4.8) k/uL ABG pH (7.35-7.45) ABG pCO2 (35-45) mmHg ABG pO2 (83-108) mmHg ABG HCO3 (21-25) mmol/L ABG O2 Saturation (94-97) % Sodium 134 L (137-145) mmol/L Carbon Dioxide (22-30) mmol/L BUN 62 H (9-20) mg/dL Creatinine 4.78 H (0.66-1.25) mg/dL Glucose 349 H (74-99) mg/dL POC Glucose (mg/dL) 140 H 38 L (75-99) mg/dL Calcium 7.8 L (8.4-10.2) mg/dL Phosphorus (2.5-4.5) mg/dL Magnesium (1.6-2.3) mg/dL Total Protein 4.1 L (6.3-8.2) g/dL Albumin 2.5 L (3.5-5.0) g/dL 02/23/20 02/24/20 02/24/20 Range/Units 23:06 03:40 03:43 RBC (4.30-5.90) m/uL Hgb (13.0-17.5) gm/dL Hct (39.0-53.0) % RDW (11.5-15.5) % Plt Count (150-450) k/uL Lymphocytes # (1.0-4.8) k/uL ABG pH (7.35-7.45) ABG pCO2 (35-45) mmHg ABG pO2 (83-108) mmHg ABG HCO3 (21-25) mmol/L ABG O2 Saturation (94-97) % Sodium (137-145) mmol/L Carbon Dioxide (22-30) mmol/L BUN (9-20) mg/dL Creatinine (0.66-1.25) mg/dL Glucose (74-99) mg/dL POC Glucose (mg/dL) 141 H 37 L 41 L (75-99) mg/dL Calcium (8.4-10.2) mg/dL Phosphorus (2.5-4.5) mg/dL Magnesium (1.6-2.3) mg/dL Total Protein (6.3-8.2) g/dL Albumin (3.5-5.0) g/dL 02/24/20 02/24/20 02/24/20 Range/Units 04:01 05:09 05:15 RBC 2.61 L (4.30-5.90) m/uL Hgb 7.8 L (13.0-17.5) gm/dL Hct 22.5 L (39.0-53.0) % RDW 15.7 H (11.5-15.5) % Plt Count 52 L (150-450) k/uL Lymphocytes # 0.9 L (1.0-4.8) k/uL ABG pH 7.50 H (7.35-7.45) ABG pCO2 25 L (35-45) mmHg ABG pO2 153 H (83-108) mmHg ABG HCO3 20 L (21-25) mmol/L ABG O2 Saturation 99.8 H (94-97) % Sodium (137-145) mmol/L Carbon Dioxide (22-30) mmol/L BUN (9-20) mg/dL Creatinine (0.66-1.25) mg/dL Glucose (74-99) mg/dL POC Glucose (mg/dL) 141 H (75-99) mg/dL Calcium (8.4-10.2) mg/dL Phosphorus (2.5-4.5) mg/dL Magnesium (1.6-2.3) mg/dL Total Protein (6.3-8.2) g/dL Albumin (3.5-5.0) g/dL 02/24/20 02/24/20 Range/Units 05:15 09:52 RBC (4.30-5.90) m/uL Hgb (13.0-17.5) gm/dL Hct (39.0-53.0) % RDW (11.5-15.5) % Plt Count (150-450) k/uL Lymphocytes # (1.0-4.8) k/uL ABG pH (7.35-7.45) ABG pCO2 (35-45) mmHg ABG pO2 (83-108) mmHg ABG HCO3 (21-25) mmol/L ABG O2 Saturation (94-97) % Sodium 136 L (137-145) mmol/L Carbon Dioxide 19 L (22-30) mmol/L BUN 70 H (9-20) mg/dL Creatinine 4.67 H (0.66-1.25) mg/dL Glucose (74-99) mg/dL POC Glucose (mg/dL) 46 L (75-99) mg/dL Calcium 7.7 L (8.4-10.2) mg/dL Phosphorus 7.1 H (2.5-4.5) mg/dL Magnesium 3.8 H (1.6-2.3) mg/dL Total Protein (6.3-8.2) g/dL Albumin (3.5-5.0) g/dL Microbiology - Last 24 Hours (Table) 02/23/20 20:20 Gram Stain - Preliminary Sputum Sputum Culture - Preliminary 02/20/20 17:18 Blood Culture - Preliminary Blood No Growth after 72 hours 02/20/20 17:28 Blood Culture - Preliminary Blood No Growth after 72 hours Assessment and Plan Assessment: #1 oliguric acute kidney injury secondary to ischemic ATN and cardiorenal syndrome. Started on hemodialysis 02/10/2020. #2 chronic kidney disease stage III secondary to nephrosclerosis/diabetic kidney disease with a baseline creatinine of 1.1-1.5 MG per DL. #3 systolic CHF with EF of 25% #4 volume overload #5 hyperkalemia resolved with dialysis #6 hypoxic respiratory failure on oxygen #7 Enterobacter pneumonia #8 cardiopulmonary arrest Plan: #1 hold dialysis today. Repeat labs tomorrow based on the labs plan dialysis with a Roge catheter. #2 monitor strict ins and outs for renal recovery #3 avoid nephrotoxic agents #4 ICU care
[2020-02-24 15:51] LABS: Glucose,Whole Blood 116 mg/dL (75-99)
[2020-02-24] MEDS: SODIUM CHLORIDE 0.9% 1,000 ML IV SCH (17:14)
[2020-02-24 21:39] LABS: Glucose,Whole Blood 182 mg/dL (75-99)
[2020-02-24] MEDS: ATORVASTATIN 10 MG TAB PO SCH (21:43)
[2020-02-24 23:45] LABS: Glucose,Whole Blood 207 mg/dL (75-99)
--- NOTE | 2020-02-25 04:07 | PN ---
PROGRESS NOTE DATE OF SERVICE: 02/24/2020 REASON FOR FOLLOWUP: Pneumonia. INTERVAL HISTORY: The patient is currently afebrile. The patient remains to be intubated on the vent. The patient is hemodynamically stable, off the pressor support. FiO2 is currently 50%. No significant purulent secretion through the ET or any diarrhea reported by the nursing staff. PHYSICAL EXAMINATION: Blood pressure is 125/48, pulse of 85, temperature 98. He is 99% on 50% FiO2. General description is a middle-aged male intubated on the vent. RESPIRATORY SYSTEM: Unlabored breathing, decreased breath sounds at the bases. No wheeze. HEART: S1, S2. Regular rate and rhythm. ABDOMEN: Soft, no tenderness. LABS: Hemoglobin 7.8, white count 6.8. BUN of 70, creatinine 4.67. Sputum culture currently pending. Repeat blood culture so far pending. DIAGNOSTIC IMPRESSION AND PLAN: Patient with acute respiratory failure which is multifactorial. This patient is status post cardiac arrest requiring resuscitation and recurrent history of Enterobacter pneumonia. Patient is covered with Zosyn to continue while waiting for the repeat culture to finalize and continue with supportive care. MMODL / IJN: [id number] /
[2020-02-25 04:12] LABS: Basophils % (A) 0 %; Eosinophils # (A) 0.1 k/uL (0-0.7); Eosinophils % (A) 1 %; HCT 21.6 % (39.0-53.0); HGB 7.6 gm/dL (13.0-17.5); Lymphocytes # (A) 0.8 k/uL (1.0-4.8); Lymphocytes % (A) 16 %; MCH 30.6 pg (25.0-35.0); MCHC 35.1 g/dL (31.0-37.0); MCV 87.4 fL (80.0-100.0); Mean Platelet Volume 12.7; Monocytes # (A) 0.3 k/uL (0-1.0); Monocytes % (A) 6 %; Neutrophils # (A) 3.9 k/uL (1.3-7.7); Neutrophils % (A) 75 %; RBC 2.47 m/uL (4.30-5.90); RDW 15.7 % (11.5-15.5); WBC 5.1 k/uL (3.8-10.6)
[2020-02-25 04:17] LABS: Platelet Count 52 k/uL (150-450)
[2020-02-25 04:22] LABS: Calcium 7.4 mg/dL (8.4-10.2); Magnesium 3.7 mg/dL (1.6-2.3); Phosphorus 8.6 mg/dL (2.5-4.5)
[2020-02-25 06:26] LABS: ABG Base Excess -6.8 mmol/L; ABG HCO3 18 mmol/L (21-25); ABG Oxygen Saturation 99.9 % (94-97); ABG PCO2 30 mmHg (35-45); ABG PH 7.39 (7.35-7.45); ABG PO2 208 mmHg (83-108); ABG TCO2 19 mmol/L (19-24); Allen Test Performed? Yes
[2020-02-25] MEDS: CALCIUM ACETATE 667 MG TAB PO SCH ×3 (06:41→18:03)
[2020-02-25] MEDS: LIPASE 5,000/PROTEASE 17,000/AMYLASE 24,000 PO SCH (06:41)
[2020-02-25] MEDS: IPRATROPIUM-ALBUTEROL 3 ML NEB INHALATION SCH ×4 (07:30→20:03)
[2020-02-25] MEDS: SYMBICORT 160-4.5 MCG INHALER INHALATION SCH (07:30)
--- NOTE | 2020-02-25 07:40 | XR ---
EXAMINATION TYPE: XR chest 1V portable DATE OF EXAM: 02/25/2020 Comparison: 02/24/2020 Clinical History: 59-year-old male Tube placement Findings: NG and ET tubes are satisfactory. Left anterior chest wall AICD generator with right ventricular lead . Patient is rotated toward the left altering the normal cardiac and mediastinal contours. Heart like ly borderline in size. Bilateral mid and lower lung airspace disease with bilateral pleural effusions . Slight improving aeration at the right base. Dense retrocardiac opacity. Impression: Mid and lower lung airspace disease with small effusions. Relatively similar to prior, slight improvi ng aeration at the right base.
--- NOTE | 2020-02-25 09:05 | P.PN ---
Subjective Principal diagnosis: CHF with COPD element The patient is a 59-year-old white male with known history of chronic pancreatitis diabetes CHF and COPD. The patient has lower extremity edema and has been being treated with dialysis. This has improved. Renal function is still poor.The patient has been taken for permanent type catheter. The Patient had worsening respiratory distress and Had to be reintubated 2 days ago \ Objective - Vital Signs Vital signs: Vital Signs Temp 98.2 F 02/25/20 04:00 Pulse 64 02/25/20 07:38 Resp 28 H 02/25/20 07:00 BP 105/67 02/23/20 11:00 Pulse Ox 97 02/25/20 07:00 Intake & Output 02/24/20 02/25/20 02/25/20 18:59 06:59 18:59 Intake Total 636.339 979.52 53 Output Total 250 400 30 Balance 386.339 579.52 23 Weight 80 kg 80.5 kg Intake: IV 320 438 23 Dextrose 10% in Water 500 160 300 20 ml In Empty Bag 1 bag @ 20 mls/hr IV .Q24H [facility] Rx #:[id number] Piperacillin-Tazobactam 3 100 100 .375 gm In Sodium Chloride 0.9% 100 ml @ 25 mls/hr IVPB Q12H [facility] Rx# :[id number] Sodium Chloride 0.9% 1, 60 5 000 ml @ 10 mls/hr IV . Q24H [facility] Rx#:[id number] pressure bag 33 3 Intake, IV Titration 226.339 161.52 Amount Norepinephrine 8 mg In 44.699 Sodium Chloride 0.9% 250 ml @ 0.05 MCG/KG/MIN 5. 805 mls/hr IV .Q24H [facility] Rx#:[id number] propofoL 1,000 mg In 181.64 161.52 Empty Bag 1 bag @ Titrate IV .Q0M [facility] Rx#: [id number] Tube Feeding 60 290 30 Other 30 90 Output: Urine 250 400 30 Other: Voiding Method Indwelling Catheter Indwelling Catheter ABP, PAP, CO, CI - Last Documented Arterial Blood Pressure 122/52 - Constitutional General appearance: Present: no acute distress - EENT Eyes: Absent: abnormal pupil - Neck Neck: Absent: lymphadenopathy - Respiratory Respiratory: bilateral: diminished, rhonchi - Cardiovascular Rhythm: regular Heart sounds: normal: S1, S2 Abnormal Heart Sounds: Absent: S3 Gallop - Gastrointestinal General gastrointestinal: Present: soft. Absent: tenderness - Psychiatric Psychiatric: Absent: A&O x's 3 - Labs CBC & Chem 7: 02/25/20 04:00 02/25/20 04:00 Labs: Abnormal Lab Results - Last 24 Hours (Table) 02/24/20 02/24/20 02/24/20 Range/Units 09:52 15:49 21:38 RBC (4.30-5.90) m/uL Hgb (13.0-17.5) gm/dL Hct (39.0-53.0) % RDW (11.5-15.5) % Plt Count (150-450) k/uL Lymphocytes # (1.0-4.8) k/uL ABG pCO2 (35-45) mmHg ABG pO2 (83-108) mmHg ABG HCO3 (21-25) mmol/L ABG O2 Saturation (94-97) % Sodium (137-145) mmol/L Carbon Dioxide (22-30) mmol/L BUN (9-20) mg/dL Creatinine (0.66-1.25) mg/dL Glucose (74-99) mg/dL POC Glucose (mg/dL) 46 L 116 H 182 H (75-99) mg/dL Calcium (8.4-10.2) mg/dL Phosphorus (2.5-4.5) mg/dL Magnesium (1.6-2.3) mg/dL 02/24/20 02/25/20 02/25/20 Range/Units 23:44 04:00 04:00 RBC 2.47 L (4.30-5.90) m/uL Hgb 7.6 L (13.0-17.5) gm/dL Hct 21.6 L (39.0-53.0) % RDW 15.7 H (11.5-15.5) % Plt Count 52 L (150-450) k/uL Lymphocytes # 0.8 L (1.0-4.8) k/uL ABG pCO2 (35-45) mmHg ABG pO2 (83-108) mmHg ABG HCO3 (21-25) mmol/L ABG O2 Saturation (94-97) % Sodium 132 L (137-145) mmol/L Carbon Dioxide 19 L (22-30) mmol/L BUN 80 H (9-20) mg/dL Creatinine 5.41 H (0.66-1.25) mg/dL Glucose 222 H (74-99) mg/dL POC Glucose (mg/dL) 207 H (75-99) mg/dL Calcium 7.4 L (8.4-10.2) mg/dL Phosphorus 8.6 H (2.5-4.5) mg/dL Magnesium 3.7 H (1.6-2.3) mg/dL 02/25/20 Range/Units 06:15 RBC (4.30-5.90) m/uL Hgb (13.0-17.5) gm/dL Hct (39.0-53.0) % RDW (11.5-15.5) % Plt Count (150-450) k/uL Lymphocytes # (1.0-4.8) k/uL ABG pCO2 30 L (35-45) mmHg ABG pO2 208 H (83-108) mmHg ABG HCO3 18 L (21-25) mmol/L ABG O2 Saturation 99.9 H (94-97) % Sodium (137-145) mmol/L Carbon Dioxide (22-30) mmol/L BUN (9-20) mg/dL Creatinine (0.66-1.25) mg/dL Glucose (74-99) mg/dL POC Glucose (mg/dL) (75-99) mg/dL Calcium (8.4-10.2) mg/dL Phosphorus (2.5-4.5) mg/dL Magnesium (1.6-2.3) mg/dL Microbiology - Last 24 Hours (Table) 02/20/20 17:18 Blood Culture - Preliminary Blood No Growth after 96 hours 02/20/20 17:28 Blood Culture - Preliminary Blood No Growth after 96 hours 02/23/20 20:20 Gram Stain - Preliminary Sputum Sputum Culture - Preliminary Assessment and Plan (1) Congestive heart failure Current Visit: Yes Status: Acute Code(s): I50.9 - HEART FAILURE, UNSPECIFIED SNOMED Code(s): 86516867 (2) Hyperglycemia Current Visit: Yes Status: Acute Code(s): R73.9 - HYPERGLYCEMIA, UNSPECIFIED SNOMED Code(s): 09622669 (3) Hyponatremia Current Visit: Yes Status: Acute Code(s): E87.1 - HYPO-OSMOLALITY AND HYPONATREMIA SNOMED Code(s): 02763565 (4) Respiratory failure Current Visit: No Status: Acute Code(s): J96.90 - RESPIRATORY FAILURE, UNSP, UNSP W HYPOXIA OR HYPERCAPNIA SNOMED Code(s): 623089789 Plan: Continue supportive care Check CBC and CMP in the a.m. The patient has required dialysis due to renal failure. Appreciate multiple consultants input. Prognosis is guarded secondary to his multiple comorbidities.
[2020-02-25] MEDS: HEPARIN SODIUM,PORCINE 5,000 UNIT/ML 1 ML VIAL SQ SCH ×2 (10:15→15:43)
[2020-02-25] MEDS: TAMSULOSIN 0.4 MG CAP.ER.24H PO SCH (10:16)
[2020-02-25] MEDS: FUROSEMIDE 10 MG/ML 10 ML VIAL IV SCH ×2 (10:16→20:08)
[2020-02-25] MEDS: CHLORHEXIDINE GLUCONATE 15 ML CUP MUCOUS MEM SCH ×2 (10:16→20:08)
[2020-02-25] MEDS: PREGABALIN 100 MG CAP PO SCH ×2 (10:16→20:08)
[2020-02-25] MEDS: predniSONE 10 MG TAB PO SCH (10:16)
[2020-02-25] MEDS: SODIUM CHLORIDE 0.9% 1,000 ML IV SCH (10:17)
[2020-02-25] MEDS: METOPROLOL SUCCINATE (ER) 25 MG TAB.ER.24H PO SCH (10:19)
[2020-02-25] MEDS: ISOSORBIDE MONONITRATE ER 15 MG TAB PO SCH (10:49)
[2020-02-25] MEDS: PHENAZOPYRIDINE 100 MG TAB PO SCH (10:50)
--- NOTE | 2020-02-25 11:39 | P.GSCN ---
History of Present Illness Consult date: 02/25/20 Reason for Consult: Respiratory failure History of present illness: 59-year-old male has been hospitalized for the last several weeks. Patient was initially admitted with respiratory failure and left-sided pneumonia. Patient was intubated twice prior to a CODE BLUE was called 2 days ago where he was reintubated again. Patient is on dialysis although lost his dialysis access to 3 days ago when he pulled out his PermCath. We were consulted today for tracheostomy and PEG tube placement. His CODE STATUS recently was changed to no code per the patient's sister who apparently has been involved in his medical decision making. Currently has endotracheal tube and oral gastric tube. Tolerating tube feeds. He is now off of his vasopressors. Covid has been negative on this patient. Past Medical History Past Medical History: Heart Failure, COPD, CVA/TIA, Diabetes Mellitus, GERD/Reflux, Hyperlipidemia, Hypertension, Osteoarthritis (OA), Pneumonia, Renal Disease Additional Past Medical History / Comment(s): Severe COPD, chronic hypoxic respiratory failure, home oxygen at 4L/NC ATC, nonishemic cardiomyopathy, AICD/pacer placement, TIA in 2018, pt denies past alcoholism, chronic pancreatitis, 3 pancreatic pseudocysts, IDDM type II, neuropathy biltaral legs/feet, chronic smoker, bilateral tinnitis occasionally, history of perforated left tympanic membranes-VENETIE left ear, pt states he has been treated for L arm pain with physical therapy but still having problems and has decreased ROM, chronic generalized pain, sinusitis History of Any Multi-Drug Resistant Organisms: Acinetobacter (MDRO) Year Discovered:: 02/10/20 MDRO Source:: MDRO SPUTUM Past Surgical History: AICD, Pacemaker Additional Past Surgical History / Comment(s): colonoscopy, "lump" removed from left side of neck. Past Anesthesia/Blood Transfusion Reactions: No Reported Reaction Type of Cardiac Device: Permanent Pacemaker, AICD Device Placement Date:: 09/2016 Past Psychological History: No Psychological Hx Reported Smoking Status: Current every day smoker Past Alcohol Use History: None Reported Past Drug Use History: None Reported - Past Family History Father Family Medical History: Congestive Heart Failure (CHF), COPD, Diabetes Mellitus Additional Family Medical History / Comment(s): Father is . He had mrsa, asbestoes exposure/lungs Mother Family Medical History: Diabetes Mellitus, Hypertension Additional Family Medical History / Comment(s): Mother is 87yrs old. Medications and Allergies Home Medications Medication Instructions Recorded Confirmed Type HYDROcodone/APAP 10-325MG [Reynolds 1 tab PO Q4HR PRN #120 tab 05/18/18 02/02/20 Rx 10-325] Ipratropium/Albuterol Sulfate 1 puff INHALATION RT-QID 02/06/19 02/02/20 History [Combivent Respimat Inhaler] Metoprolol Succinate (ER) [Toprol 25 mg PO DAILY 02/06/19 02/02/20 History XL] Famotidine [Pepcid] 20 mg PO BID PRN 09/23/19 02/02/20 History Furosemide [Lasix] 40 mg PO Q48H 09/23/19 02/02/20 History Nitroglycerin 0.1MG/Hr Patch 1 patch TRANSDERM DAILY PRN 09/23/19 02/02/20 History [Nitro-Dur 0.1MG/Hr Patch] Atorvastatin Calcium [Lipitor] 10 mg PO HS 02/02/20 02/02/20 History Insulin Degludec [Tresiba 12 units SQ DAILY 02/02/20 02/02/20 History Flextouch U-100] Insulin Lispro [humaLOG Kwikpen] See Protocol SQ AC-TID MDD 70 UNITS 02/02/20 02/02/20 History Isosorbide Mononitrate ER [Imdur] 30 mg PO DAILY 02/02/20 02/02/20 History Nicotine 7Mg/24Hr Patch [Habitrol 1 patch TRANSDERM DAILY PRN 02/02/20 02/02/20 History 7Mg/24Hr Patch] Pantoprazole Sodium [Protonix] 40 mg PO DAILY PRN 02/02/20 02/02/20 History Pregabalin 300 mg PO BID 02/02/20 02/02/20 History Zaleplon [Sonata] 10 mg PO HS PRN 02/02/20 02/02/20 History Zenpep 20,000 Iu 1 cap PO W/BRKFST 02/02/20 02/02/20 History diazePAM [Valium] 2 mg PO BID PRN 02/02/20 02/02/20 History Allergies Allergy/AdvReac Type Severity Reaction Status Date / Time meperidine HCl [From Demerol] AdvReac Severe Rapid Verified 02/02/20 14:36 Heart Rate/VOMITING ibuprofen [From Motrin] AdvReac Vomiting Verified 02/02/20 14:36 mayonnaise AdvReac Nausea & Verified 02/02/20 14:36 Vomiting & Diarrhea Surgical - Exam Vital Signs Temp Pulse Resp BP Pulse Ox 98.1 F 95 20 122/72 95 02/02/20 14:34 02/02/20 14:34 02/02/20 14:34 02/02/20 14:34 02/02/20 14:34 Physical exam: General: Elderly white male on ventilator, no distress HEENT: Normocephalic, sclerae nonicteric, endotracheal tube in place Abdomen: Nontender, nondistended, edematous abdominal wall Extremities: Diffuse edema Neuro: Intubated Results - Labs 02/25/20 04:00 02/25/20 04:00 Abnormal Lab Results - Last 24 Hours (Table) 02/24/20 02/24/20 02/24/20 Range/Units 15:49 21:38 23:44 RBC (4.30-5.90) m/uL Hgb (13.0-17.5) gm/dL Hct (39.0-53.0) % RDW (11.5-15.5) % Plt Count (150-450) k/uL Lymphocytes # (1.0-4.8) k/uL ABG pCO2 (35-45) mmHg ABG pO2 (83-108) mmHg ABG HCO3 (21-25) mmol/L ABG O2 Saturation (94-97) % Sodium (137-145) mmol/L Carbon Dioxide (22-30) mmol/L BUN (9-20) mg/dL Creatinine (0.66-1.25) mg/dL Glucose (74-99) mg/dL POC Glucose (mg/dL) 116 H 182 H 207 H (75-99) mg/dL Calcium (8.4-10.2) mg/dL Phosphorus (2.5-4.5) mg/dL Magnesium (1.6-2.3) mg/dL 02/25/20 02/25/20 02/25/20 Range/Units 04:00 04:00 06:15 RBC 2.47 L (4.30-5.90) m/uL Hgb 7.6 L (13.0-17.5) gm/dL Hct 21.6 L (39.0-53.0) % RDW 15.7 H (11.5-15.5) % Plt Count 52 L (150-450) k/uL Lymphocytes # 0.8 L (1.0-4.8) k/uL ABG pCO2 30 L (35-45) mmHg ABG pO2 208 H (83-108) mmHg ABG HCO3 18 L (21-25) mmol/L ABG O2 Saturation 99.9 H (94-97) % Sodium 132 L (137-145) mmol/L Carbon Dioxide 19 L (22-30) mmol/L BUN 80 H (9-20) mg/dL Creatinine 5.41 H (0.66-1.25) mg/dL Glucose 222 H (74-99) mg/dL POC Glucose (mg/dL) (75-99) mg/dL Calcium 7.4 L (8.4-10.2) mg/dL Phosphorus 8.6 H (2.5-4.5) mg/dL Magnesium 3.7 H (1.6-2.3) mg/dL Microbiology - Last 24 Hours (Table) 02/23/20 20:20 Gram Stain - Preliminary Sputum Sputum Culture - Preliminary 02/06/20 15:30 Fungal Culture - Preliminary Bronchial Washings - Left 02/20/20 17:18 Blood Culture - Preliminary Blood No Growth after 96 hours 02/20/20 17:28 Blood Culture - Preliminary Blood No Growth after 96 hours Diabetes panel 02/25/20 Range/Units 04:00 Sodium 132 L (137-145) mmol/L Potassium 4.0 (3.5-5.1) mmol/L Chloride 102 (98-107) mmol/L Carbon Dioxide 19 L (22-30) mmol/L BUN 80 H (9-20) mg/dL Creatinine 5.41 H (0.66-1.25) mg/dL Glucose 222 H (74-99) mg/dL Calcium 7.4 L (8.4-10.2) mg/dL Calcium panel 02/25/20 Range/Units 04:00 Calcium 7.4 L (8.4-10.2) mg/dL Phosphorus 8.6 H (2.5-4.5) mg/dL Pituitary panel 02/25/20 Range/Units 04:00 Sodium 132 L (137-145) mmol/L Potassium 4.0 (3.5-5.1) mmol/L Chloride 102 (98-107) mmol/L Carbon Dioxide 19 L (22-30) mmol/L BUN 80 H (9-20) mg/dL Creatinine 5.41 H (0.66-1.25) mg/dL Glucose 222 H (74-99) mg/dL Calcium 7.4 L (8.4-10.2) mg/dL Adrenal panel 02/25/20 Range/Units 04:00 Sodium 132 L (137-145) mmol/L Potassium 4.0 (3.5-5.1) mmol/L Chloride 102 (98-107) mmol/L Carbon Dioxide 19 L (22-30) mmol/L BUN 80 H (9-20) mg/dL Creatinine 5.41 H (0.66-1.25) mg/dL Glucose 222 H (74-99) mg/dL Calcium 7.4 L (8.4-10.2) mg/dL Assessment and Plan (1) Adult respiratory distress syndrome Narrative/Plan: 59-year-old male with respiratory failure. Will discuss with patient's family options of proceeding with tracheostomy and PEG tube placement in the next 24-48 hours. We'll tentatively schedule for tomorrow in the event that the patient is stable to proceed and his family desires us to do so. Current Visit: No Status: Acute Code(s): J80 - ACUTE RESPIRATORY DISTRESS SYNDROME SNOMED Code(s): 87469640
[2020-02-25 12:23] LABS: Glucose,Whole Blood 305 mg/dL (75-99)
[2020-02-25] MEDS: INSULIN ASPART (NovoLOG) 100 UNIT/ML VIAL SQ SCH ×2 (12:35→18:04)
[2020-02-25] MEDS: PIPERACILLIN-TAZOBACTAM 3.375 GM in SODIUM CHLORIDE 0.9% 100 ML IVPB SCH (12:35)
--- NOTE | 2020-02-25 14:22 | P.PN ---
Subjective Patient is seen in follow-up for acute kidney injury on chronic kidney disease, currently hemodialysis dependent. Patient had cardiac arrest on February 14. He is currently intubated. Urine output about 25 mL an hour. Creatinine 5.41 today. He is maintained on IV Lasix. Off vasopressors. Vital signs stable. Heart: Regular rhythm. Lungs: Breath sounds decreased. ABDOMEN: Soft, no distention noted. EXTREMITITES: 1+ edema. Objective - Vital Signs Vital signs: Vital Signs Temp 97.5 F L 02/25/20 12:00 Pulse 64 02/25/20 13:00 Resp 28 H 02/25/20 13:00 BP 105/67 02/23/20 11:00 Pulse Ox 98 02/25/20 13:00 Intake & Output 02/24/20 02/25/20 02/25/20 18:59 06:59 18:59 Intake Total 636.339 979.52 790.6 Output Total 250 400 164 Balance 386.339 579.52 626.6 Weight 80 kg 80.5 kg Intake: IV 320 438 391 Dextrose 10% in Water 500 160 300 80 ml In Empty Bag 1 bag @ 20 mls/hr IV .Q24H [facility] Rx #:[id number] Piperacillin-Tazobactam 3 100 100 200 .375 gm In Sodium Chloride 0.9% 100 ml @ 25 mls/hr IVPB Q12H [facility] Rx# :[id number] Sodium Chloride 0.9% 1, 60 5 000 ml @ 10 mls/hr IV . Q24H [facility] Rx#:[id number] Sodium Chloride 0.9% 1, 90 000 ml @ 30 mls/hr IV . Q24H [facility] Rx#:[id number] pressure bag 33 21 Intake, IV Titration 226.339 161.52 99.6 Amount Norepinephrine 8 mg In 44.699 Sodium Chloride 0.9% 250 ml @ 0.05 MCG/KG/MIN 5. 805 mls/hr IV .Q24H [facility] Rx#:[id number] propofoL 1,000 mg In 181.64 161.52 99.6 Empty Bag 1 bag @ Titrate IV .Q0M [facility] Rx#: [id number] Tube Feeding 60 290 240 Other 30 90 60 Output: Urine 250 400 164 Other: Voiding Method Indwelling Catheter Indwelling Catheter ABP, PAP, CO, CI - Last Documented Arterial Blood Pressure 129/54 - Labs CBC & Chem 7: 02/25/20 04:00 02/25/20 04:00 Labs: Abnormal Lab Results - Last 24 Hours (Table) 02/24/20 02/24/20 02/24/20 Range/Units 15:49 21:38 23:44 RBC (4.30-5.90) m/uL Hgb (13.0-17.5) gm/dL Hct (39.0-53.0) % RDW (11.5-15.5) % Plt Count (150-450) k/uL Lymphocytes # (1.0-4.8) k/uL ABG pCO2 (35-45) mmHg ABG pO2 (83-108) mmHg ABG HCO3 (21-25) mmol/L ABG O2 Saturation (94-97) % Sodium (137-145) mmol/L Carbon Dioxide (22-30) mmol/L BUN (9-20) mg/dL Creatinine (0.66-1.25) mg/dL Glucose (74-99) mg/dL POC Glucose (mg/dL) 116 H 182 H 207 H (75-99) mg/dL Calcium (8.4-10.2) mg/dL Phosphorus (2.5-4.5) mg/dL Magnesium (1.6-2.3) mg/dL 02/25/20 02/25/20 02/25/20 Range/Units 04:00 04:00 06:15 RBC 2.47 L (4.30-5.90) m/uL Hgb 7.6 L (13.0-17.5) gm/dL Hct 21.6 L (39.0-53.0) % RDW 15.7 H (11.5-15.5) % Plt Count 52 L (150-450) k/uL Lymphocytes # 0.8 L (1.0-4.8) k/uL ABG pCO2 30 L (35-45) mmHg ABG pO2 208 H (83-108) mmHg ABG HCO3 18 L (21-25) mmol/L ABG O2 Saturation 99.9 H (94-97) % Sodium 132 L (137-145) mmol/L Carbon Dioxide 19 L (22-30) mmol/L BUN 80 H (9-20) mg/dL Creatinine 5.41 H (0.66-1.25) mg/dL Glucose 222 H (74-99) mg/dL POC Glucose (mg/dL) (75-99) mg/dL Calcium 7.4 L (8.4-10.2) mg/dL Phosphorus 8.6 H (2.5-4.5) mg/dL Magnesium 3.7 H (1.6-2.3) mg/dL 02/25/20 Range/Units 12:22 RBC (4.30-5.90) m/uL Hgb (13.0-17.5) gm/dL Hct (39.0-53.0) % RDW (11.5-15.5) % Plt Count (150-450) k/uL Lymphocytes # (1.0-4.8) k/uL ABG pCO2 (35-45) mmHg ABG pO2 (83-108) mmHg ABG HCO3 (21-25) mmol/L ABG O2 Saturation (94-97) % Sodium (137-145) mmol/L Carbon Dioxide (22-30) mmol/L BUN (9-20) mg/dL Creatinine (0.66-1.25) mg/dL Glucose (74-99) mg/dL POC Glucose (mg/dL) 305 H (75-99) mg/dL Calcium (8.4-10.2) mg/dL Phosphorus (2.5-4.5) mg/dL Magnesium (1.6-2.3) mg/dL Microbiology - Last 24 Hours (Table) 02/12/20 16:21 Fungal Culture - Preliminary Pleural Fluid 02/23/20 20:20 Gram Stain - Preliminary Sputum Sputum Culture - Preliminary 02/06/20 15:30 Fungal Culture - Preliminary Bronchial Washings - Left 02/20/20 17:18 Blood Culture - Preliminary Blood No Growth after 96 hours 02/20/20 17:28 Blood Culture - Preliminary Blood No Growth after 96 hours Assessment and Plan Plan: Assessment: 1. Acute kidney injury secondary to ATN secondary to sepsis, cardiac arrest and cardiorenal syndrome. Started on hemodialysis February 09. Did undergo some treatments of ultrafiltration only. No hydronephrosis noted on kidney ultrasound. 2. Whiteout of the right lung. Possibly pneumonia. No fluid obtained with thoracentesis. Status post bronchoscopy with removal of mucous plugs. Underwent another thoracentesis on February 11 with 500 mL drained from the left pleural space. 3. Acute on chronic systolic CHF with ejection fraction of 25% with moderate mitral regurgitation. 4. Acute hypoxic respiratory failure. Currently intubated. 5. Hyperkalemia secondary to acute kidney injury and metabolic acidosis. Resolved. 6. Hyponatremia secondary to acute kidney injury. Hypervolemic. 7. Pleural space infection maintained on antibiotics; sputum culture positive for Acinetobacter. 8. Chronic kidney disease stage III with baseline creatinine in the range of 1.1-1.5. Etiology is most likely diabetic kidney disease. 9. Hypoglycemia s/p D5W. Better. 10. Hyperphosphatemia secondary to acute kidney injury. Maintained on PhosLo. 11. Anemia of chronic kidney disease. Maintained on Aranesp. 12. volume overload. 13. Status post cardiopulmonary arrest with 15 minute downtime on February 14. Plan: Patient does not have a dialysis catheter as he pulled it out over the weekend. Patient does need to continue with replacement therapy but family has decided for comfort care measures.
--- NOTE | 2020-02-25 15:11 | P.PN ---
Subjective Progress Note Date: 02/25/20 Principal diagnosis: Acute on chronic hypoxic rest failure, multifactorial 59-year-old male patient is well-known to me and the patient is currently in the intensive care unit after being reintubated yesterday for respiratory support for an extensive left lung pneumonia. Note that the patient required intubation mechanical ventilation earlier and the patient was successfully extubated on 02/04/2020. His pulmonary workup that included a bronchoscopy and the lavage that showed Enterobacter and the same micrograms and was also cultured from the pleural fluid that was aspirated on 02/03/2020. The patient currently remains on IV antibiotics and the patient is receiving IV Zosyn. Noted the chest exit shown significant consolidation and atelectasis of the left lung in addition to a small left-sided pleural effusion. Overnight, the patient became more hypoxic and less responsive. He had to be reintubated and he was brought into the intensive care unit for further care. This morning, the patient is on propofol running at 10 mg per KG per minute. He is easily arousable while being on sedation. He is also receiving normal sed rate of 75 mL an hour. He remains on assist control mode of ventilation at the rate of 24 the tidal volume of 450 and FiO2 of 40% with a PEEP of 5. The blood gas showed pH of 7.36 with a pCO2 of 37 and pO2 95. The patient is currently on no pressors. He is maintaining his own blood pressure. No fever. No chills. No leukocytosis with a white cell count 3.9. He has developed an acute kidney injury. As mentioned earlier creatinine came up to 5.8 and currently is down to 3.98 and the patient is going to require another session of hemodialysis today. The patient will be kept in ICU for now. I'm suggesting a repeat CAT scan of the chest to reevaluate the left lung. Based on my earlier review of the CAT scan that was done earlier, the patient has volume loss and extensive consolidation with a component of pleural fluid. I think this is essentially small at this point in time. He is on a prednisone burst taper currently on 30 mg by mouth daily. He is on Lovenox 30 mg subcu for DVT prophylaxis. He is on Levemir insulin 22 units at bedtime in addition to a size care coverage. The patient is also to be started enteral feeding for nutritional support. 02/12/2020, the patient is being seen for a follow-up. The patient is currently extubated. In the city detective hours, the patient self extubated and the patie nt was not reintubated. He was kept on BiPAP at a pressure of 14/7 cm of water and FiO2 of 50%. He is much more comfortable at this point in time is breathing adequately. He is communicating and is awake and alert. Chest x-ray shows significant volume loss on the left with significant opacification of the left lung, however there is some slight improvement in the upper outer left lung with some improved aeration the left upper lobe area. The patient also has a mild right lower lobe pulmonary infiltration. Based on this, I contacted interventional radiology. I requested an ultrasound-guided thoracentesis and another 500 mL of pleural fluid was aspirated from the patient's lung successf ully. Postprocedure chest x-ray shows significant improvement in aeration of the left lung. Nevertheless distal constellation of the left lower lobe along with some volume loss. The patient will be kept on the BiPAP overnight. I contacted the sister and I also updated her on the condition. Meanwhile, the patient will be kept on DuoNeb nebulized treatments on the clock and the patient is also on IV Zosyn regarding the gram-negative pneumonia with a parapneumonic effusion that was attributed to be related to Enterobacter. Repeat sputum sample was also sent and it's still growing gram-negative bacillus and would awaiting final cultures and sensitivities. In addition, the patient is going to undergo hemodialysis today. IV fluids at [facility] The patient is seen today 02/13/2020 in follow-up on the selective care unit. He was transferred out of the ICU earlier this morning. He is sitting up at the bedside. Awake and alert in no acute distress. He is currently maintaining good O2 saturations in the high 90s on 7 L high flow nasal cannula. She's been afebrile. Hemodynamically stable. Initial pleural fluid cultures from 02/03/2020 were positive for alpha hemolytic streptococcus, Enterobacter gergoviae, Enterobacter cloacae. Follow-up fluid cultures from 02/12/2020 are pending. White count 5.3. Hemoglobin 9.3. Platelet count 53,000. Sodium 127. Potassium 4.3. Creatinine 2.69. Is currently on Zosyn along with bronchodilators, oral prednisone, IV diuretics. Lovenox for DVT prophylaxis. The patient is seen today 02/14/2020 in follow-up on the selective care unit. He is sitting up at the bedside. Awake and alert in no acute distress. Denies any worsening shortness of breath. He has a productive cough of grayish brown sputum. Cultures positive for Acinetobacter Ivy/haemol which is quite a resistant organism. White count 5.7. Hemoglobin 9.9. Sodium 131. Potassium 4.3. Creatinine 3.43. He remains on DuoNeb inhalations, Symbicort, redness him. Continued on IV diuretics. Currently on antibiotics in the form of Zosyn. Chest x-ray continues to show basilar effusion and associated atelectasis. The patient is seen today 02/15/2020 in follow-up on selective care unit. He is currently up ambulating with physical therapy. He is doing quite well. No worsening shortness of breath, cough or congestion. 18 O2 saturations in the high 90s on 3 L/m per nasal cannula. Cultures positive for Acinetobacter Ivy/haemol which is quite a resistant organism. Currently on Zosyn. White count 6.3. Hemoglobin 9.5. Sodium 132. Potassium 5.1. Creatinine 4.33. He remains on fluid restrictions. Chest x-ray reveals stable bilateral effusions. He remains on bronchodilators, prednisone. Remains on IV diuretics. The patient is seen today February 16 2020 follow-up on the selective care unit. He is currently resting fairly comfortably in bed. He is being concern today is continued significant edema the scrotum. He did receive hemodialysis y esterday. Hemodialysis is planned for today. His creatinine is 3.51. He is less short of breath. He started 2 L/m per nasal cannula to maintain O2 saturation in low 90s. White count 7.3. Hemoglobin 9.5. Platelet count 50,000. Sodium 135. Potassium 4.3. Creatinine 2.51. He remains on Lasix 40 mg IV twice a day. Patient is seen today 02/17/2020 in follow-up on selective care unit. He is awake and alert in no acute distress. Resting more comfortably in bed. He did receive hemodialysis yesterday and again today. His scrotal swelling has improved and the patient is hoping to go home soon. He plans to stay with his sister upon discharge. He denies any worsening shortness of breath, cough or congestion. He is maintaining O2 saturation the mid 90s on 2 L/m per nasal cannula. Sodium 138. Potassium 4.4. Creatinine 2.92. He remains on antibiotics in the form of Zosyn for his Acinetobacter Ivy/haemol sputum. We were reconsulted on the patient today 02/22/2020 after he had developed altered mental status and pulled out his dialysis catheter and IVs and had significant blood loss. He did require 1 unit of packed blood cell replacement. The plan is for replacement of aged catheter tomorrow. He did have a follow-up chest x-ray that showed recurrent left-sided near complete opacity. He is maintaining O2 saturations in the mid 90s on 5 L high flow nasal cannula. Ultrasound of the left chest pending. Patient was reevaluated today on 02/23/20. This morning, patient had a CODE BLUE, arrested, went into pulseless electrical activity, this was at 8:21 AM this morning. CPR was started, his initial rhythm was asystole. Patient received epinephrine, total of 5 A. During the code he also received 3 A of bicarb. 1 g of calcium chloride and magnesium bolus. And patient was coded basically from 8: 21 until 8: 33. A.m. At 8:34, patient lost pulse again, CPR was resumed. Patient was shocked once, and then he had return of spontaneous circulation amiodarone was bolused. In the meantime the patient was intubated, and he was transferred to the intensive care unit. I saw the patient in the ICU, performed bronchoscopy on the patient for collapse of left lung, also placed lines in the patient including a right femoral triple-lumen catheter, and a left radial arterial line. Patient was supposed to undergo dialysis today, however he pulled out his dialysis catheter sometime yesterday, and this was basically the second catheter that he pulled out. Vascular surgery was supposed to have a catheter placed before he arrested. Post code ABG showed a pO2 of 175 pCO2 of 62 pH of 7.13. Apparently his daughter was notified by the physician who ran the code earlier today about his overall status. Patient is now on mechanical ventilation, he is on assist control rate of 34, tidal volume is 450 FiO2 is 100% and PEEP of 5. ABG showed a pO2 of 77 pCO2 of 37 and pH of 7.35. Follow-up chest x-ray showed reexpansion of the left lung, patient is also on propofol at 40 mcg/kg/m, considering his bicarb level, the sodium bicarb drip was discontinued, and the patient was given Lasix 80 mg IV push every 12 hours, seen by nephrology today, the plan is to hold dialysis today, repeat labs in the morning, and decide on placement of another dialysis catheter which will be deferred cath that he received on this admission. Patient was reevaluated today on 02/24/20. Remains intubated and mechanically ventilated. His ventilator settings are assist control rate of 34 FiO2 of 60% tidal volume is 450 and PEEP of 5. ABG showed a pO2 of 153 pCO2 of 25 pH of 7.50 hence the patient was placed on lower FiO2 of 50%, and lower rate of 28 instead of 34. Patient is sedated on propofol at 3 0 mcg/kg/m. Norepinephrine at 0.04 mcg/kg/m IV fluid at KVO and today instructed to start enteral feeding, considering the patient has intermittent episodes of hypoglycemia, I recommended a D10 at 20 mL per hour. Since yesterday, his CODE STATUS was changed to DO NOT RESUSCITATE CODE STATUS as. His sister. Chest x-ray this morning showed moderate bilateral pleural effusions, and it is consistent mostly with CHF. Patient may or may not be dialyzed today, he doesn't have a hemodialysis catheter in place yet, hence I recommended Lasix 80 mg to be given IV push every 12 hours. Patient does not make much urine but he does respond intermittently to Lasix. WBC count today is 6.8 hemoglobin is 7.8. Electrolytes are normal bicarb is 19, BUN is 70 creatinine is 4.67. On 02/25/2020 patient seen in follow-up in the intensive care unit. He remains intubated, sedated on assist control mode of ventilation with a rate of 28, tidal volume 450, FiO2 35% and PEEP of 5, this morning blood gases showed pO2 of 208, pCO2 of 30, and pH of 7.39, and this was done and FiO2 of 50% and FiO2 had since been dropped to 35%, currently on 0.9 normal saline at a rate of 30, depressive and at 50 mics per kilo per minute, and no other infusions, nutritional support in the form of Nepro at a rate of 30 with a goal of 40 ML per hour. Patient is off the vasopressors. Today's chest x-ray has been reviewed showing mid and lower lung airspace disease with small pleural effu sions. There was relatively similar to prior slight improvement in aeration of the right base. Patient remains on IV Lasix at 80 mg every 12 hours, and empiric antibiotics in the form of Zosyn. His microbiology has been reviewed, his most recent pleural fluid cultures from 02/12/2020 shown no growth, and most recent sputum culture from 02/15/2020, is still pending. His labs have been reviewed showing with blood cell count of 5.1, hemoglobin of 7.6, platelet count of 52, sodium of 132, potassium is 4.0, heart is 102, CO2 is 19, BUN of 80, and creatinine of 5.41. His net fluid balance is +965 ML over the last 24 hours, overall patient is 21.6 kg positive since admission, he has severe generalized edema, with significant swelling of his upper and lower extremities and truncal edema. Objective - Vital Signs Vital signs: Vital Signs Temp 97.5 F L 02/25/20 12:00 Pulse 64 02/25/20 13:00 Resp 28 H 02/25/20 13:00 BP 105/67 02/23/20 11:00 Pulse Ox 98 02/25/20 13:00 Intake & Output 02/24/20 02/25/20 02/25/20 18:59 06:59 18:59 Intake Total 636.339 979.52 790.6 Output Total 250 400 164 Balance 386.339 579.52 626.6 Weight 80 kg 80.5 kg Intake: IV 320 438 391 Dextrose 10% in Water 500 160 300 80 ml In Empty Bag 1 bag @ 20 mls/hr IV .Q24H JOSY Rx #:[id number] Piperacillin-Tazobactam 3 100 100 200 .375 gm In Sodium Chloride 0.9% 100 ml @ 25 mls/hr IVPB Q12H JOSY Rx# :[id number] Sodium Chloride 0.9% 1, 60 5 000 ml @ 10 mls/hr IV . Q24H JOSY Rx#:[id number] Sodium Chloride 0.9% 1, 90 000 ml @ 30 mls/hr IV . Q24H JOSY Rx#:[id number] pressure bag 33 21 Intake, IV Titration 226.339 161.52 99.6 Amount Norepinephrine 8 mg In 44.699 Sodium Chloride 0.9% 250 ml @ 0.05 MCG/KG/MIN 5. 805 mls/hr IV .Q24H JOSY Rx#:[id number] propofoL 1,000 mg In 181.64 161.52 99.6 Empty Bag 1 bag @ Titrate IV .Q0M JOSY Rx#: [id number] Tube Feeding 60 290 240 Other 30 90 60 Output: Urine 250 400 164 Other: Voiding Method Indwelling Catheter Indwelling Catheter ABP, PAP, CO, CI - Last Documented Arterial Blood Pressure 129/54 - Exam GENERAL EXAM: Sedated, intubated 59-year-old white male, on assist control mode of ventilation, with FiO2 of 50% comfortable in no apparent distress. HEAD: Normocephalic/atraumatic. EYES: Normal reaction of pupils, equal size. Conjunctiva pink, sclera white. NOSE: Clear with pink turbinates. THROAT: No erythema or exudates. NECK: No masses, no JVD, no thyroid enlargement, no adenopathy. CHEST: No chest wall deformity. Symmetrical expansion. Right upper chest hemodialysis catheter site is dry and intact, with a single suture in place, clean dry and intact LUNGS: Equal air entry with no crackles, wheeze, rhonchi or dullness. CVS: Regular rate and rhythm, normal S1 and S2, no gallops, no murmurs, no rubs ABDOMEN: Soft, nontender. No hepatosplenomegaly, normal bowel sounds, no guarding or rigidity. EXTREMITIES: No clubbing, severe generalized edema, anasarca, no cyanosis, 2+ pulses and upper and lower extremities. MUSCULOSKELETAL: Muscle strength and tone normal. SPINE: No scoliosis or deformity SKIN: No rashes CENTRAL NERVOUS SYSTEM: Intubated, sedated No focal deficits, tone is normal in all 4 extremities. - Labs CBC & Chem 7: 02/25/20 04:00 02/25/20 04:00 Labs: Abnormal Lab Results - Last 24 Hours (Table) 02/24/20 02/24/20 02/24/20 Range/Units 15:49 21:38 23:44 RBC (4.30-5.90) m/uL Hgb (13.0-17.5) gm/dL Hct (39.0-53.0) % RDW (11.5-15.5) % Plt Count (150-450) k/uL Lymphocytes # (1.0-4.8) k/uL ABG pCO2 (35-45) mmHg ABG pO2 (83-108) mmHg ABG HCO3 (21-25) mmol/L ABG O2 Saturation (94-97) % Sodium (137-145) mmol/L Carbon Dioxide (22-30) mmol/L BUN (9-20) mg/dL Creatinine (0.66-1.25) mg/dL Glucose (74-99) mg/dL POC Glucose (mg/dL) 116 H 182 H 207 H (75-99) mg/dL Calcium (8.4-10.2) mg/dL Phosphorus (2.5-4.5) mg/dL Magnesium (1.6-2.3) mg/dL 02/25/20 02/25/20 02/25/20 Range/Units 04:00 04:00 06:15 RBC 2.47 L (4.30-5.90) m/uL Hgb 7.6 L (13.0-17.5) gm/dL Hct 21.6 L (39.0-53.0) % RDW 15.7 H (11.5-15.5) % Plt Count 52 L (150-450) k/uL Lymphocytes # 0.8 L (1.0-4.8) k/uL ABG pCO2 30 L (35-45) mmHg ABG pO2 208 H (83-108) mmHg ABG HCO3 18 L (21-25) mmol/L ABG O2 Saturation 99.9 H (94-97) % Sodium 132 L (137-145) mmol/L Carbon Dioxide 19 L (22-30) mmol/L BUN 80 H (9-20) mg/dL Creatinine 5.41 H (0.66-1.25) mg/dL Glucose 222 H (74-99) mg/dL POC Glucose (mg/dL) (75-99) mg/dL Calcium 7.4 L (8.4-10.2) mg/dL Phosphorus 8.6 H (2.5-4.5) mg/dL Magnesium 3.7 H (1.6-2.3) mg/dL 02/25/20 Range/Units 12:22 RBC (4.30-5.90) m/uL Hgb (13.0-17.5) gm/dL Hct (39.0-53.0) % RDW (11.5-15.5) % Plt Count (150-450) k/uL Lymphocytes # (1.0-4.8) k/uL ABG pCO2 (35-45) mmHg ABG pO2 (83-108) mmHg ABG HCO3 (21-25) mmol/L ABG O2 Saturation (94-97) % Sodium (137-145) mmol/L Carbon Dioxide (22-30) mmol/L BUN (9-20) mg/dL Creatinine (0.66-1.25) mg/dL Glucose (74-99) mg/dL POC Glucose (mg/dL) 305 H (75-99) mg/dL Calcium (8.4-10.2) mg/dL Phosphorus (2.5-4.5) mg/dL Magnesium (1.6-2.3) mg/dL Microbiology - Last 24 Hours (Table) 02/12/20 16:21 Fungal Culture - Preliminary Pleural Fluid 02/23/20 20:20 Gram Stain - Preliminary Sputum Sputum Culture - Preliminary 02/06/20 15:30 Fungal Culture - Preliminary Bronchial Washings - Left 02/20/20 17:18 Blood Culture - Preliminary Blood No Growth after 96 hours 02/20/20 17:28 Blood Culture - Preliminary Blood No Growth after 96 hours Assessment and Plan Plan: Assessment: #1. Acute cardiopulmonary arrest on 02/23/2020, and patient was resuscitated, emergently intubated and placed on mechanical ventilator. Patient had previous hypoxic and hypercapnic respiratory failure requiring intubation and placement on mechanical ventilator on 02/03/2020 and on 02/04 2020. Patient had episode of self extubation on 02/04/2020 with subsequent acute hypoxic and hypercapnic respiratory failure requiring reintubation #2. Acute hypoxic/hypercapnic respiratory failure, related to fluid overload, and pneumonia with left parapneumonic effusion with pleural fluid cultures positive for Enterobacter and Streptococcus #3. Recurrent left-sided pleural effusion status post thoracentesis, fluid positive for Enterobacter and Streptococcus #4. Left-sided gram-negative pneumonia secondary to Enterobacter and Streptoco ccus, with a left lower lobe consolidation #5. Status post bronchoscopy and BAL on 02/03/2020 and 02/06/2020, and 02/23/2020 #6. Chronic systolic congestive heart failure with ejection fraction of 25% #7. Restrictive lung disease with diaphragm paralysis of the left side #8. Diabetes mellitus type 2 with diabetic neuropathy #9. Hypertension #10. Dyslipidemia #11. Nonischemic cardiomyopathy and LV dysfunction with previous AICD placement #12. Chronic pancreatitis #13. History of pancreatic cyst #14. Nonoliguric acute kidney injury secondary to acute tubular necrosis and cardiorenal syndrome, has been on hemodialysis however removed his hemodialysis catheter on multiple occasions, presently does not have a dialysis catheter in place, and patient is scheduled for Roge cath placement today on 02/25/2020 #15. Anoxic brain injury related to prolonged cardiac arrest and CPR while inpatient on 02/23/2020 Plan: Patient is scheduled for Roge Hemodialysis placement today, possible hemodialysis treatment following that, nephrology is following, managing the diuretics, and is quite fluid overloaded, with the generalized edema, remains on diuretics. Off vasopressor support, hemodynamically stable, we'll consult surgery for placement of tracheostomy and PEG tube in view of multiple episodes of respiratory failure and cardiac arrest, requiring ACLS and placement on mechanical ventilator, his CODE STATUS is DO NOT RESUSCITATE, as family was updated on patient's condition, and decided to proceed with comfort care tomorrow. We'll cancel the consultation for trach and PEG placement continue supportive treatment for now. I performed a history & physical examination of the patient and discussed their management with my nurse practitioner, Princess Epps. I reviewed the nurse practitioner's note and agree with the documented findings and plan of care. Rose ng sounds are positive for diminished breath sounds. The findings and the impression was discussed with the patient. I attest to the documentation by the nurse practitioner. Time with Patient: Greater than 30
[2020-02-25 18:01] LABS: Glucose,Whole Blood 272 mg/dL (75-99)
[2020-02-25] MEDS: ATORVASTATIN 10 MG TAB PO SCH (20:08)
--- NOTE | 2020-02-25 23:03 | PN ---
PROGRESS NOTE DATE OF SERVICE: 02/25/2020 REASON FOR FOLLOWUP: Pneumonia. INTERVAL HISTORY: The patient is currently afebrile. The patient is hemodynamically stable, not on pressor support. FiO2 is currently at 35%. No significant purulent secretions through the ET tube or diarrhea reported by the nursing staff. PHYSICAL EXAMINATION: Blood pressure 116/41, pulse of 71, temperature 98. He is 98% on 35% FiO2. General description is a middle-aged male, intubated on the vent. Respiratory system: Unlabored breathing, decreased breath sounds in the bases. No wheeze. Heart S1, S2. Regular rate and rhythm. ABDOMEN: Soft, no tenderness. LABORATORY DATA: Hemoglobin 7.2, white count 5.1, BUN of 80, creatinine 5.41. Bronch culture so far pending. DIAGNOSTIC IMPRESSION/PLAN: Patient with acute respiratory failure, multifactorial, possible component of pneumonia. The patient is currently covered with Zosyn with a possible plan for continue supportive care. MMODL / IJN: [id number] /
[2020-02-26] MEDS: INSULIN ASPART (NovoLOG) 100 UNIT/ML VIAL SQ SCH ×2 (00:03→05:25)
[2020-02-26 00:04] LABS: Glucose,Whole Blood 308 mg/dL (75-99)
[2020-02-26] MEDS: HEPARIN SODIUM,PORCINE 5,000 UNIT/ML 1 ML VIAL SQ SCH ×2 (00:06→09:37)
[2020-02-26] MEDS: PIPERACILLIN-TAZOBACTAM 3.375 GM in SODIUM CHLORIDE 0.9% 100 ML IVPB SCH (00:06)
[2020-02-26 00:14] VITALS: TEMP 97.8
[2020-02-26 05:17] LABS: Calcium 7.6 mg/dL (8.4-10.2); Magnesium 3.8 mg/dL (1.6-2.3); Phosphorus 8.6 mg/dL (2.5-4.5); Potassium 4.1 mmol/L (3.5-5.1)
[2020-02-26 05:25] LABS: ABG Base Excess -5.6 mmol/L; ABG HCO3 19 mmol/L (21-25); ABG Oxygen Saturation 99.2 % (94-97); ABG PCO2 27 mmHg (35-45); ABG PH 7.44 (7.35-7.45); ABG PO2 118 mmHg (83-108); ABG TCO2 19 mmol/L (19-24)
[2020-02-26 05:53] LABS: Basophils % (A) 0 %; Eosinophils # (A) 0.2 k/uL (0-0.7); Eosinophils % (A) 3 %; HCT 22.1 % (39.0-53.0); HGB 7.4 gm/dL (13.0-17.5); Lymphocytes % (A) 19 %; MCH 29.5 pg (25.0-35.0); MCHC 33.7 g/dL (31.0-37.0); MCV 87.5 fL (80.0-100.0); Mean Platelet Volume 11.2; Monocytes # (A) 0.3 k/uL (0-1.0); Monocytes % (A) 5 %; Neutrophils # (A) 3.7 k/uL (1.3-7.7); Neutrophils % (A) 70 %; RBC 2.52 m/uL (4.30-5.90); RDW 15.7 % (11.5-15.5); WBC 5.2 k/uL (3.8-10.6)
[2020-02-26 06:02] LABS: Platelet Count 66 k/uL (150-450)
--- NOTE | 2020-02-26 07:28 | XR ---
EXAMINATION TYPE: XR chest 1V portable DATE OF EXAM: 02/26/2020 COMPARISON: 02/25/2020 HISTORY: Tube placement TECHNIQUE: Single frontal view of the chest is obtained. FINDINGS: ET and NG tube stable. Left-sided cardiac device seen. Bilateral consolidation and pleural effusion. No pneumothorax. Heart size enlarged. Atherosclerotic change aorta. Diffuse osteopenia. IMPRESSION: 1. Diffuse pleural-parenchymal changes are stable correlate for pneumonia versus pulmonary edema.
[2020-02-26] MEDS: CALCIUM ACETATE 667 MG TAB PO SCH (07:35)
[2020-02-26] MEDS: LIPASE 5,000/PROTEASE 17,000/AMYLASE 24,000 PO SCH (07:35)
[2020-02-26] MEDS: TAMSULOSIN 0.4 MG CAP.ER.24H PO SCH (08:01)
[2020-02-26] MEDS: IPRATROPIUM-ALBUTEROL 3 ML NEB INHALATION SCH (08:17)
[2020-02-26] MEDS ORDERED: MORPHINE SULFATE 2 MG/ML SYRINGE IV PRN ×2 (09:30→11:14)
[2020-02-26] MEDS ORDERED: MORPHINE SULFATE 4 MG/ML SYRINGE IV PRN ×2 (09:30→11:14)
[2020-02-26] MEDS ORDERED: ATROPINE OPHTH SOLN 1% 5ML BTL SUBLINGUAL PRN (09:30)
[2020-02-26] MEDS ORDERED: ONDANSETRON 4 MG/2 ML VIAL IVP PRN ×2 (09:30→11:14)
[2020-02-26] MEDS ORDERED: LORazepam 2 MG/ML INJ IV PRN ×2 (09:30→11:14)
[2020-02-26] MEDS ORDERED: MORPHINE SULFATE (100 MG/2 ML) 100 MG in SODIUM CHLORIDE 0.9% 100 ML IV SCH ×2 (09:30→11:15)
[2020-02-26] MEDS: ISOSORBIDE MONONITRATE ER 15 MG TAB PO SCH (09:37)
[2020-02-26] MEDS: FUROSEMIDE 10 MG/ML 10 ML VIAL IV SCH (09:37)
[2020-02-26] MEDS: METOPROLOL SUCCINATE (ER) 25 MG TAB.ER.24H PO SCH (09:38)
[2020-02-26] MEDS: PREGABALIN 100 MG CAP PO SCH (09:38)
[2020-02-26] MEDS: CHLORHEXIDINE GLUCONATE 15 ML CUP MUCOUS MEM SCH (10:00)
[2020-02-26] MEDS ORDERED: SCOPOLAMINE 1.5MG/72HR PATCH TRANSDERM SCH (10:00)
[2020-02-26 10:11] VITALS: BP 110/68; PULSE 63; RESP 22
--- NOTE | 2020-02-26 10:50 | P.PN ---
Subjective Progress Note Date: 02/26/20 Principal diagnosis: Acute on chronic hypoxic rest failure, multifactorial 59-year-old male patient is well-known to me and the patient is currently in the intensive care unit after being reintubated yesterday for respiratory support for an extensive left lung pneumonia. Note that the patient required intubation mechanical ventilation earlier and the patient was successfully extubated on 02/04/2020. His pulmonary workup that included a bronchoscopy and the lavage that showed Enterobacter and the same micrograms and was also cultured from the pleural fluid that was aspirated on 02/03/2020. The patient currently remains on IV antibiotics and the patient is receiving IV Zosyn. Noted the chest exit shown significant consolidation and atelectasis of the left lung in addition to a small left-sided pleural effusion. Overnight, the patient became more hypoxic and less responsive. He had to be reintubated and he was brought into the intensive care unit for further care. This morning, the patient is on propofol running at 10 mg per KG per minute. He is easily arousable while being on sedation. He is also receiving normal sed rate of 75 mL an hour. He remains on assist control mode of ventilation at the rate of 24 the tidal volume of 450 and FiO2 of 40% with a PEEP of 5. The blood gas showed pH of 7.36 with a pCO2 of 37 and pO2 95. The patient is currently on no pressors. He is maintaining his own blood pressure. No fever. No chills. No leukocytosis with a white cell count 3.9. He has developed an acute kidney injury. As mentioned earlier creatinine came up to 5.8 and currently is down to 3.98 and the patient is going to require another session of hemodialysis today. The patient will be kept in ICU for now. I'm suggesting a repeat CAT scan of the chest to reevaluate the left lung. Based on my earlier review of the CAT scan that was done earlier, the patient has volume loss and extensive consolidation with a component of pleural fluid. I think this is essentially small at this point in time. He is on a prednisone burst taper currently on 30 mg by mouth daily. He is on Lovenox 30 mg subcu for DVT prophylaxis. He is on Levemir insulin 22 units at bedtime in addition to a size care coverage. The patient is also to be started enteral feeding for nutritional support. 02/12/2020, the patient is being seen for a follow-up. The patient is currently extubated. 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 He was kept on BiPAP at a pressure of 14/7 cm of water and FiO2 of 50%. He is much more comfortable at this point in time is breathing adequately. He is communicating and is awake and alert. Chest x-ray shows significant volume loss on the left with significant opacification of the left lung, however there is some slight improvement in the upper outer left lung with some improved aeration the left upper lobe area. The patient also has a mild right lower lobe pulmonary infiltration. Based on this, I contacted interventional radiology. I requested an ultrasound-guided thoracentesis and another 500 mL of pleural fluid was aspirated from the patient's lung successf ully. Postprocedure chest x-ray shows significant improvement in aeration of the left lung. Nevertheless distal constellation of the left lower lobe along with some volume loss. The patient will be kept on the BiPAP overnight. I contacted the sister and I also updated her on the condition. Meanwhile, the patient will be kept on DuoNeb nebulized treatments on the clock and the patient is also on IV Zosyn regarding the gram-negative pneumonia with a parapneumonic effusion that was attributed to be related to Enterobacter. Repeat sputum sample was also sent and it's still growing gram-negative bacillus and would awaiting final cultures and sensitivities. In addition, the patient is going to undergo hemodialysis today. IV fluids at [facility] The patient is seen today 02/13/2020 in follow-up on the selective care unit. He was transferred out of the ICU earlier this morning. He is sitting up at the bedside. Awake and alert in no acute distress. He is currently maintaining good O2 saturations in the high 90s on 7 L high flow nasal cannula. She's been afebrile. Hemodynamically stable. Initial pleural fluid cultures from 02/03/2020 were positive for alpha hemolytic streptococcus, Enterobacter gergoviae, Enterobacter cloacae. Follow-up fluid cultures from 02/12/2020 are pending. White count 5.3. Hemoglobin 9.3. Platelet count 53,000. Sodium 127. Potassium 4.3. Creatinine 2.69. Is currently on Zosyn along with bronchodilators, oral prednisone, IV diuretics. Lovenox for DVT prophylaxis. The patient is seen today 02/14/2020 in follow-up on the selective care unit. He is sitting up at the bedside. Awake and alert in no acute distress. Denies any worsening shortness of breath. He has a productive cough of grayish brown sputum. Cultures positive for Acinetobacter Ivy/haemol which is quite a resistant organism. White count 5.7. Hemoglobin 9.9. Sodium 131. Potassium 4.3. Creatinine 3.43. He remains on DuoNeb inhalations, Symbicort, redness him. Continued on IV diuretics. Currently on antibiotics in the form of Zosyn. Chest x-ray continues to show basilar effusion and associated atelectasis. The patient is seen today 02/15/2020 in follow-up on selective care unit. He is currently up ambulating with physical therapy. He is doing quite well. No worsening shortness of breath, cough or congestion. 18 O2 saturations in the high 90s on 3 L/m per nasal cannula. Cultures positive for Acinetobacter Ivy/haemol which is quite a resistant organism. Currently on Zosyn. White count 6.3. Hemoglobin 9.5. Sodium 132. Potassium 5.1. Creatinine 4.33. He remains on fluid restrictions. Chest x-ray reveals stable bilateral effusions. He remains on bronchodilators, prednisone. Remains on IV diuretics. The patient is seen today February 16 2020 follow-up on the selective care unit. He is currently resting fairly comfortably in bed. He is being concern today is continued significant edema the scrotum. He did receive hemodialysis y esterday. Hemodialysis is planned for today. His creatinine is 3.51. He is less short of breath. He started 2 L/m per nasal cannula to maintain O2 saturation in low 90s. White count 7.3. Hemoglobin 9.5. Platelet count 50,000. Sodium 135. Potassium 4.3. Creatinine 2.51. He remains on Lasix 40 mg IV twice a day. Patient is seen today 02/17/2020 in follow-up on selective care unit. He is awake and alert in no acute distress. Resting more comfortably in bed. He did receive hemodialysis yesterday and again today. His scrotal swelling has improved and the patient is hoping to go home soon. He plans to stay with his sister upon discharge. He denies any worsening shortness of breath, cough or congestion. He is maintaining O2 saturation the mid 90s on 2 L/m per nasal cannula. Sodium 138. Potassium 4.4. Creatinine 2.92. He remains on antibiotics in the form of Zosyn for his Acinetobacter Ivy/haemol sputum. We were reconsulted on the patient today 02/22/2020 after he had developed altered mental status and pulled out his dialysis catheter and IVs and had significant blood loss. He did require 1 unit of packed blood cell replacement. The plan is for replacement of aged catheter tomorrow. He did have a follow-up chest x-ray that showed recurrent left-sided near complete opacity. He is maintaining O2 saturations in the mid 90s on 5 L high flow nasal cannula. Ultrasound of the left chest pending. Patient was reevaluated today on 02/23/20. This morning, patient had a CODE BLUE, arrested, went into pulseless electrical activity, this was at 8:21 AM this morning. CPR was started, his initial rhythm was asystole. Patient received epinephrine, total of 5 A. During the code he also received 3 A of bicarb. 1 g of calcium chloride and magnesium bolus. And patient was coded basically from 8: 21 until 8: 33. A.m. At 8:34, patient lost pulse again, CPR was resumed. Patient was shocked once, and then he had return of spontaneous circulation amiodarone was bolused. In the meantime the patient was intubated, and he was transferred to the intensive care unit. I saw the patient in the ICU, performed bronchoscopy on the patient for collapse of left lung, also placed lines in the patient including a right femoral triple-lumen catheter, and a left radial arterial line. Patient was supposed to undergo dialysis today, however he pulled out his dialysis catheter sometime yesterday, and this was basically the second catheter that he pulled out. Vascular surgery was supposed to have a catheter placed before he arrested. Post code ABG showed a pO2 of 175 pCO2 of 62 pH of 7.13. Apparently his daughter was notified by the physician who ran the code earlier today about his overall status. Patient is now on mechanical ventilation, he is on assist control rate of 34, tidal volume is 450 FiO2 is 100% and PEEP of 5. ABG showed a pO2 of 77 pCO2 of 37 and pH of 7.35. Follow-up chest x-ray showed reexpansion of the left lung, patient is also on propofol at 40 mcg/kg/m, considering his bicarb level, the sodium bicarb drip was discontinued, and the patient was given Lasix 80 mg IV push every 12 hours, seen by nephrology today, the plan is to hold dialysis today, repeat labs in the morning, and decide on placement of another dialysis catheter which will be deferred cath that he received on this admission. Patient was reevaluated today on 02/24/20. Remains intubated and mechanically ventilated. His ventilator settings are assist control rate of 34 FiO2 of 60% tidal volume is 450 and PEEP of 5. ABG showed a pO2 of 153 pCO2 of 25 pH of 7.50 hence the patient was placed on lower FiO2 of 50%, and lower rate of 28 instead of 34. Patient is sedated on propofol at 3 0 mcg/kg/m. Norepinephrine at 0.04 mcg/kg/m IV fluid at KVO and today instructed to start enteral feeding, considering the patient has intermittent episodes of hypoglycemia, I recommended a D10 at 20 mL per hour. Since yesterday, his CODE STATUS was changed to DO NOT RESUSCITATE CODE STATUS as. His sister. Chest x-ray this morning showed moderate bilateral pleural effusions, and it is consistent mostly with CHF. Patient may or may not be dialyzed today, he doesn't have a hemodialysis catheter in place yet, hence I recommended Lasix 80 mg to be given IV push every 12 hours. Patient does not make much urine but he does respond intermittently to Lasix. WBC count today is 6.8 hemoglobin is 7.8. Electrolytes are normal bicarb is 19, BUN is 70 creatinine is 4.67. On 02/25/2020 patient seen in follow-up in the intensive care unit. He remains intubated, sedated on assist control mode of ventilation with a rate of 28, tidal volume 450, FiO2 35% and PEEP of 5, this morning blood gases showed pO2 of 208, pCO2 of 30, and pH of 7.39, and this was done and FiO2 of 50% and FiO2 had since been dropped to 35%, currently on 0.9 normal saline at a rate of 30, depressive and at 50 mics per kilo per minute, and no other infusions, nutritional support in the form of Nepro at a rate of 30 with a goal of 40 ML per hour. Patient is off the vasopressors. Today's chest x-ray has been reviewed showing mid and lower lung airspace disease with small pleural effu sions. There was relatively similar to prior slight improvement in aeration of the right base. Patient remains on IV Lasix at 80 mg every 12 hours, and empiric antibiotics in the form of Zosyn. His microbiology has been reviewed, his most recent pleural fluid cultures from 02/12/2020 shown no growth, and most recent sputum culture from 02/15/2020, is still pending. His labs have been reviewed showing with blood cell count of 5.1, hemoglobin of 7.6, platelet count of 52, sodium of 132, potassium is 4.0, heart is 102, CO2 is 19, BUN of 80, and creatinine of 5.41. His net fluid balance is +965 ML over the last 24 hours, overall patient is 21.6 kg positive since admission, he has severe generalized edema, with significant swelling of his upper and lower extremities and truncal edema. On 02/26/2020 patient seen in follow-up in intensive care unit, he remains sedated, intubated on mechanical ventilator current vent settings are assist- control with a rate of 20, tidal volume is 450, FiO2 35% and PEEP of 5 and this morning blood gases showing pO2 of 180, pCO2 27, and pH 7.44. Is on IV fluids with 0.9 normal saline at 30 mL per hour, Diprivan and is currently at 50 mics per kilo per minute, no vasoactive drips, nutritional support with Nepro at 40 with a goal of 40 ML per hour, patient has been on diuretics, he has been hemodialysis dependent, supposed to have a Roge hemodialysis catheter placed yesterday to continue on hemodialysis, urine output is in the order of 20-40 ML per hour, she has been very generally swollen. His been on in the form of Zosyn, most recent cultures have been negative including pleural fluid cultures from 02/12/2020, blood cultures and sputum cultures have shown no growth. His sputum culture from 02/10/2020 showed Acinetobacter baumanii, ID service is following. We place a consultation to surgical services for placement of tracheostomy and PEG tube placement which was tentatively scheduled for today with Dr. Johnson, however patient's family (sister) have decided to have the patient removed from life support, and proceed with comfort care measures today. Objective - Vital Signs Vital signs: Vital Signs Temp 97.8 F 12/01/20 08:00 Pulse 63 02/26/20 10:00 Resp 22 02/26/20 10:00 BP 110/68 02/26/20 10:00 Pulse Ox 100 02/26/20 10:00 Intake & Output 02/25/20 02/26/20 02/26/20 18:59 06:59 18:59 Intake Total 1155.6 1283 382 Output Total 294 346 120 Balance 861.6 937 262 Weight 82.5 kg Intake: IV 456 463 132 Dextrose 10% in Water 500 80 ml In Empty Bag 1 bag @ 20 mls/hr IV .Q24H [facility]OS[facility] Rx #:[id number] Piperacillin-Tazobactam 3 100 100 .375 gm In Sodium Chloride 0.9% 100 ml @ 25 mls/hr IVPB Q12H [facility] Rx# :[id number] Sodium Chloride 0.9% 1, 240 330 120 000 ml @ 30 mls/hr IV . Q24H [facility]OS[facility] Rx#:[id number] pressure bag 36 33 12 Intake, IV Titration 199.6 300 100 Amount propofoL 1,000 mg In 199.6 300 100 Empty Bag 1 bag @ Titrate IV .Q0M JOSY Rx#: [id number] Tube Feeding 440 430 120 Other 60 90 30 Output: Urine 294 345 120 Stool 1 Other: Voiding Method Indwelling Catheter Indwelling Catheter Indwelling Catheter ABP, PAP, CO, CI - Last Documented Arterial Blood Pressure 129/59 - Exam GENERAL EXAM: Sedated, intubated 59-year-old white male, on assist control mode of ventilation, with FiO2 of 50% comfortable in no apparent distress. HEAD: Normocephalic/atraumatic. EYES: Normal reaction of pupils, equal size. Conjunctiva pink, sclera white. NOSE: Clear with pink turbinates. THROAT: No erythema or exudates. NECK: No masses, no JVD, no thyroid enlargement, no adenopathy. CHEST: No chest wall deformity. Symmetrical expansion. Right upper chest hemodialysis catheter site is dry and intact, with a single suture in place, clean dry and intact LUNGS: Equal air entry with no crackles, wheeze, rhonchi or dullness. CVS: Regular rate and rhythm, normal S1 and S2, no gallops, no murmurs, no rubs ABDOMEN: Soft, nontender. No hepatosplenomegaly, normal bowel sounds, no guarding or rigidity. EXTREMITIES: No clubbing, severe generalized edema, anasarca, no cyanosis, 2+ pulses and upper and lower extremities. MUSCULOSKELETAL: Muscle strength and tone normal. SPINE: No scoliosis or deformity SKIN: No rashes CENTRAL NERVOUS SYSTEM: Intubated, sedated No focal deficits, tone is normal in all 4 extremities. - Labs CBC & Chem 7: 02/26/20 04:30 02/26/20 04:30 Labs: Abnormal Lab Results - Last 24 Hours (Table) 02/25/20 02/25/20 02/26/20 Range/Units 12:22 17:59 00:02 RBC (4.30-5.90) m/uL Hgb (13.0-17.5) gm/dL Hct (39.0-53.0) % RDW (11.5-15.5) % Plt Count (150-450) k/uL ABG pCO2 (35-45) mmHg ABG pO2 (83-108) mmHg ABG HCO3 (21-25) mmol/L ABG O2 Saturation (94-97) % Sodium (137-145) mmol/L Carbon Dioxide (22-30) mmol/L BUN (9-20) mg/dL Creatinine (0.66-1.25) mg/dL Glucose (74-99) mg/dL POC Glucose (mg/dL) 305 H 272 H 308 H (75-99) mg/dL Calcium (8.4-10.2) mg/dL Phosphorus (2.5-4.5) mg/dL Magnesium (1.6-2.3) mg/dL 02/26/20 02/26/20 02/26/20 Range/Units 04:30 04:30 05:00 RBC 2.52 L (4.30-5.90) m/uL Hgb 7.4 L (13.0-17.5) gm/dL Hct 22.1 L (39.0-53.0) % RDW 15.7 H (11.5-15.5) % Plt Count 66 L (150-450) k/uL ABG pCO2 27 L (35-45) mmHg ABG pO2 118 H (83-108) mmHg ABG HCO3 19 L (21-25) mmol/L ABG O2 Saturation 99.2 H (94-97) % Sodium 129 L (137-145) mmol/L Carbon Dioxide 18 L (22-30) mmol/L BUN 92 H (9-20) mg/dL Creatinine 6.15 H (0.66-1.25) mg/dL Glucose 273 H (74-99) mg/dL POC Glucose (mg/dL) (75-99) mg/dL Calcium 7.6 L (8.4-10.2) mg/dL Phosphorus 8.6 H (2.5-4.5) mg/dL Magnesium 3.8 H (1.6-2.3) mg/dL Microbiology - Last 24 Hours (Table) 02/23/20 20:20 Gram Stain - Final Sputum Sputum Culture - Final 02/06/20 15:30 Acid Fast Bacilli Smear - Final Bronchial Washings - Left Acid Fast Bacilli Culture - Preliminary 02/12/20 16:21 Acid Fast Bacilli Smear - Final Pleural Fluid Acid Fast Bacilli Culture - Preliminary 02/20/20 17:18 Blood Culture - Preliminary Blood No Growth after 120 hours 02/20/20 17:28 Blood Culture - Preliminary Blood No Growth after 120 hours 02/12/20 16:21 Fungal Culture - Preliminary Pleural Fluid 02/06/20 15:30 Fungal Culture - Preliminary Bronchial Washings - Left Assessment and Plan Plan: Assessment: #1. Acute cardiopulmonary arrest on 02/23/2020, and patient was resuscitated, emergently intubated and placed on mechanical ventilator. Patient had previous hypoxic and hypercapnic respiratory failure requiring intubation and placement on mechanical ventilator on 02/03/2020 and on 02/04 2020. Patient had episode of self extubation on 02/04/2020 with subsequent acute hypoxic and hypercapnic respiratory failure requiring reintubation #2. Acute hypoxic/hypercapnic respiratory failure, related to fluid overload, and pneumonia with left parapneumonic effusion with pleural fluid cultures positive for Enterobacter and Streptococcus #3. Recurrent left-sided pleural effusion status post thoracentesis, fluid positive for Enterobacter and Streptococcus #4. Left-sided gram-negative pneumonia secondary to Enterobacter and St reptococcus, with a left lower lobe consolidation #5. Status post bronchoscopy and BAL on 02/03/2020 and 02/06/2020, and 02/23/2020 #6. Chronic systolic congestive heart failure with ejection fraction of 25% #7. Restrictive lung disease with diaphragm paralysis of the left side #8. Diabetes mellitus type 2 with diabetic neuropathy #9. Hypertension #10. Dyslipidemia #11. Nonischemic cardiomyopathy and LV dysfunction with previous AICD placement #12. Chronic pancreatitis #13. History of pancreatic cyst #14. Nonoliguric acute kidney injury secondary to acute tubular necrosis and cardiorenal syndrome, has been on hemodialysis however removed his hemodialysis catheter on multiple occasions, presently does not have a dialysis catheter in place, and patient is scheduled for Roge cath placement today on 02/25/2020 #15. Anoxic brain injury related to prolonged cardiac arrest and CPR while inpatient on 02/23/2020 Plan: No acute events overnight, continue supportive treatment, proceed with extubation in terminal wean, and comfort care protocol once the family arrives. Patient has been DO NOT RESUSCITATE CODE STATUS, he has suffered multiple episodes of cardiopulmonary arrest during this admission, his multiple chronic and acute medical conditions. His prognosis is quite poor, and the family decided to proceed with comfort care measures only at this time we'll cancel tracheostomy and PEG tube placement I performed a history & physical examination of the patient and discussed their management with my nurse practitioner, Princess Epps. I reviewed the nurse practitioner's note and agree with the documented findings and plan of care. Lung sounds are positive for diminished breath sounds. The findings and the impression was discussed with the patient. I attest to the documentation by the nurse practitioner. Time with Patient: Greater than 30
[2020-02-26] MEDS: SODIUM CHLORIDE 0.9% 1,000 ML IV SCH (11:37)
--- NOTE | 2020-02-26 12:59 | P.DS ---
Providers Date of admission: 02/02/20 17:14 Attending physician: Yusuf Lind Consults: 02/02/20 17:16 Consult Physician Urgent Consulting Provider: Snow Perez Consult Reason/Comments: elevated troponin, CHF Do you want consulting provider notified?: Yes 02/03/20 12:26 Consult Physician Stat Consulting Provider: Adriana Steiner Consult Reason/Comments: respiratory distress Do you want consulting provider notified?: Yes 02/03/20 12:35 Consult Physician Stat Consulting Provider: Saundra Hernandez Consult Reason/Comments: renal failure Do you want consulting provider notified?: Yes 02/09/20 13:33 Consult Physician Stat Consulting Provider: Jordy Laird Consult Reason/Comments: hallucinations per family, frequently confused/forgetful, angry/irrational Do you want consulting provider notified?: Yes 02/10/20 12:05 Consult Physician Stat Consulting Provider: Guzman Saab Consult Reason/Comments: placment of dialysis cath. potassium =6.3 ,bun 123,cr 5.4 Do you want consulting provider notified?: Yes 02/14/20 10:19 Consult Physician Routine Consulting Provider: Chelita Max Consult Reason/Comments: Multi-drug resistant in sputum Do you want consulting provider notified?: Yes 02/14/20 11:29 Consult Physician Routine Consulting Provider: Chelita Max Consult Reason/Comments: Gram Neg pneumonia Do you want consulting provider notified?: Yes 02/25/20 10:27 Consult Physician Routine Consulting Provider: Gelacio Johnson Consult Reason/Comments: trach and peg insertion Do you want consulting provider notified?: Yes Primary care physician: Yusuf Lind - Discharge Diagnosis(es) (1) Congestive heart failure Current Visit: Yes Status: Acute (2) Hyperglycemia Current Visit: Yes Status: Acute (3) Hyponatremia Current Visit: Yes Status: Acute (4) Respiratory failure Current Visit: No Status: Acute Hospital Course: This is a summary on a 59-year-old white male with known history of cardiomyopathy, chronic pancreatitis COPD. He was admitted essentially for respiratory failure and had a haja course. He was found unconscious and ended up being reintubated twice after an initial intubation. After the second intubation, he developed acute renal requiring dialysis which the patient did not recover from. Given his multiple comorbidities it was made to mercilessly give him comfort care. The patient shortly after being placed on comfort care measures and peacefully. Patient Condition at Discharge: Stable Plan - Discharge Summary Discharge Rx Participant: No New Discharge Prescriptions: No Action HYDROcodone/APAP 10-325MG [[place] 10-325] 1 tab PO Q4HR PRN #120 tab PRN Reason: Pain Metoprolol Succinate (ER) [Toprol XL] 25 mg PO DAILY Ipratropium/Albuterol Sulfate [Combivent Respimat Inhaler] 1 puff INHALATION RT-QID Nitroglycerin 0.1MG/Hr Patch [Nitro-Dur 0.1MG/Hr Patch] 1 patch TRANSDERM DAILY PRN PRN Reason: Chest Pain Famotidine [Pepcid] 20 mg PO BID PRN PRN Reason: Gi Upset Furosemide [Lasix] 40 mg PO Q48H Atorvastatin Calcium [Lipitor] 10 mg PO HS Zenpep 20,000 Iu 1 cap PO W/BRKFST Zaleplon [Sonata] 10 mg PO HS PRN PRN Reason: Insomnia Pregabalin 300 mg PO BID Pantoprazole Sodium [Protonix] 40 mg PO DAILY PRN PRN Reason: GERDS Nicotine 7Mg/24Hr Patch [Habitrol 7Mg/24Hr Patch] 1 patch TRANSDERM DAILY PRN PRN Reason: NICOTINE ADDICTION Isosorbide Mononitrate ER [Imdur] 30 mg PO DAILY Insulin Lispro [humaLOG Kwikpen] See Protocol SQ AC-TID MDD 70 UNITS diazePAM [Valium] 2 mg PO BID PRN PRN Reason: Anxiety Insulin Degludec [Tresiba Flextouch U-100] 12 units SQ DAILY Discharge Medication List HYDROcodone/APAP 10-325MG [C[place] 10-325] 1 tab PO Q4HR PRN #120 tab 05/18/18 [Rx] Ipratropium/Albuterol Sulfate [Combivent Respimat Inhaler] 1 puff INHALATION RT- QID 02/06/19 [History] Metoprolol Succinate (ER) [Toprol XL] 25 mg PO DAILY 02/06/19 [History] Famotidine [Pepcid] 20 mg PO BID PRN 09/23/19 [History] Furosemide [Lasix] 40 mg PO Q48H 09/23/19 [History] Nitroglycerin 0.1MG/Hr Patch [Nitro-Dur 0.1MG/Hr Patch] 1 patch TRANSDERM DAILY PRN 09/23/19 [History] Atorvastatin Calcium [Lipitor] 10 mg PO HS 02/02/20 [History] Insulin Degludec [Tresiba Flextouch U-100] 12 units SQ DAILY 02/02/20 [History] Insulin Lispro [humaLOG Kwikpen] See Protocol SQ AC-TID MDD 70 UNITS 02/02/20 [History] Isosorbide Mononitrate ER [Imdur] 30 mg PO DAILY 02/02/20 [History] Nicotine 7Mg/24Hr Patch [Habitrol 7Mg/24Hr Patch] 1 patch TRANSDERM DAILY PRN 02/02/20 [History] Pantoprazole Sodium [Protonix] 40 mg PO DAILY PRN 02/02/20 [History] Pregabalin 300 mg PO BID 02/02/20 [History] Zaleplon [Sonata] 10 mg PO HS PRN 02/02/20 [History] Zenpep 20,000 Iu 1 cap PO W/BRKFST 02/02/20 [History] diazePAM [Valium] 2 mg PO BID PRN 02/02/20 [History] Follow up Appointment(s)/Referral(s): Harris Hernández [NON-STAFF] - Yusuf Lind MD [Primary Care Provider] - 1-2 days Brennen Ray DO [Doctor of Osteopathic Medicine] - 1 Week Activity/Diet/Wound Care/Special Instructions: Walker has been delivered to patient in his room - please send it home with him at discharge. Discharge Disposition: - Preliminary Cause of Preliminary Cause of : Respiratory failure and renal failure
--- NOTE | 2020-02-28 00:28 | P.PN ---
Subjective On-call hospitalist covering Dr. Lind This is a 59 years old male with multiple medical problems was admitted for dyspnea and found to have acute on chronic systolic CHF with ejection fraction 25-30% Review of his history of nonischemic cardiomyopathy and his course was complicated by acute kidney injury secondary to ATN and cardiorenal syndrome that he needed hemodialysis since 02/09, where currently he is still undergoing hemodialysis with nephrology team on the case. Also he has cirrhosis secondary to left pneumonia with recurrent left pleural effusion status post thoracocentesis with culture growing Streptococcus, and Citrobacter and Enterobacter, infectious disease on the case and his been treated with Zosyn. Also recent steroids per pulmonary team recommendation. Today THE PATIENT IS AWAKE BUT IS MORE LETHARGIC PER STAFF THIS IS THE FIRST [facility] IN THE PATIENT WE GOING TO CHECK URINALYSIS HE IS HEMODYNAMICALLY STABLE AND HE IS SATURATING 95% ON 4 L OXYGEN, ACTUALLY PULMONARY TEAM. FOR DISCHARGE. ALSO PATIENT HAS BEEN FOLLOWED BY SEVERAL CONSULTANTS INCLUDING [employer] INST[employer]ER AND [employer]ANCE AGENT 02/22/2020 Today patient was awake and alert, he answered my questions appropriately but by the end of the encounter he wanted to sleep, I suspect he is more lethargic related to his infection , he feels irritated at the bladder side and his lower abdomen. However heis in the hospital and Y his been hospitalized for. his vitals were stable in the morning and he is saturating 99% on 5 L oxygen Nasal cannula. Urine analysis from yesterday was still abnormal and suspicious for infection with large blood and large leukocyte esterase and more than 182 RBCs. Discussed with staff to send urine culture After rounding the patient was found in bed WITH blood after he pulled out his tubes and dialysis catheter, shortly he became unresponsive and DEEPAK RHODES was called however he regained consciousness and the code was stopped, Dr. Saab was at bedside and bleeding was stopped. Blood pressure was low 80/45 and 1 unit of blood transfusion was ordered. Please refer to the event note for more details. And we will check hemoglobin and resolved CBC after blood transfusion, further recommendation based on his clinical situation and lab results as well as vitals Currently he remains on Zosyn and prednisone 30 mg, we going to decrease the dose to 20 mg his prognosis remains critical 02/23/2020 Today morning patient developed asystole, DEEPAK RHODES was called and he underwent CPR per protocol. The [place] was about 17 minutes as per staff. Which patient got intubated and transferred to the ICU for further management. Patient currently remains on mechanical ventilation with pulmonary/critical care team R following closely. Patient remains on antibiotics with Zosyn. And some steroids. An anoxic brain injury is suspected Given the patient comorbidities and the complexities and needed several episodes of reintubation, with 2 episodes of Coding between yesterday and today, making the prognosis even more poor. Critical care team suggesting possible consideration of comfort care 02/24/2020 Patient remains in the ICU intubated with ulnar/critical care team are following. Patient is converted to DO NOT RESUSCITATE by his sister Patient is on hemodialysis but no dialysis catheter, hence Lasix has been added Doses remains very poor Objective - Vital Signs Vital signs: Vital Signs Temp 98.6 F 02/24/20 16:00 Pulse 71 02/24/20 17:00 Resp 28 H 02/24/20 17:00 BP 105/67 02/23/20 11:00 Pulse Ox 99 02/24/20 17:00 Intake & Output 02/23/20 02/24/20 02/24/20 18:59 06:59 18:59 Intake Total 1.8 411.761 530.672 Output Total 100 225 225 Balance -98.2 186.761 305.672 Weight 80 kg 80 kg Intake: IV 210 295 Dextrose 10% in Water 500 140 ml In Empty Bag 1 bag @ 20 mls/hr IV .Q24H [facility] Rx #:[id number] Piperacillin-Tazobactam 3 100 100 .375 gm In Sodium Chloride 0.9% 100 ml @ 25 mls/hr IVPB Q12H [facility] Rx# :[id number] Sodium Chloride 0.9% 1, 110 55 000 ml @ 10 mls/hr IV . Q24H [facility] Rx#:[id number] Intake, IV Titration 1.8 201.761 165.672 Amount Norepinephrine 8 mg In 103.561 37.152 Sodium Chloride 0.9% 250 ml @ 0.05 MCG/KG/MIN 5. 805 mls/hr IV .Q24H [facility] Rx#:[id number] propofoL 1,000 mg In 1.8 98.2 128.52 Empty Bag 1 bag @ Titrate IV .Q0M [facility] Rx#: [id number] Tube Feeding 40 Other 30 Output: Urine 100 225 225 Other: Voiding Method Indwelling Catheter Indwelling Catheter Indwelling Catheter # Voids 0 ABP, PAP, CO, CI - Last Documented Arterial Blood Pressure 106/48 - Exam -GENERAL: The patient is sedated and intubated HEENT: Pupils are round and equally reacting to light. EOMI. No scleral icterus. No conjunctival pallor. Normocephalic, atraumatic. No pharyngeal erythema. No th yromegaly. CARDIOVASCULAR: S1 and S2 present. No murmurs, rubs, or gallops. PULMONARY: Chest is clear to auscultation, no wheezing or crackles. ABDOMEN: Soft, nontender, nondistended, normoactive bowel sounds. No palpable organomegaly. MUSCULOSKELETAL: No joint swelling or deformity. EXTREMITIES: No cyanosis, clubbing, or pedal edema. NEUROLOGICAL: Gross neurological examination did not reveal any focal deficits. SKIN: No rashes. no petechiae. - Labs CBC & Chem 7: 02/26/20 04:30 02/26/20 04:30 Labs: Abnormal Lab Results - Last 24 Hours (Table) 02/23/20 02/23/20 02/23/20 Range/Units 17:30 17:32 17:39 RBC 2.82 L (4.30-5.90) m/uL Hgb 8.0 L (13.0-17.5) gm/dL Hct 25.2 L (39.0-53.0) % RDW 16.1 H (11.5-15.5) % Plt Count 57 L (150-450) k/uL Lymphocytes # 0.7 L (1.0-4.8) k/uL ABG pH (7.35-7.45) ABG pCO2 (35-45) mmHg ABG pO2 (83-108) mmHg ABG HCO3 (21-25) mmol/L ABG O2 Saturation (94-97) % Sodium (137-145) mmol/L Carbon Dioxide (22-30) mmol/L BUN (9-20) mg/dL Creatinine (0.66-1.25) mg/dL Glucose (74-99) mg/dL POC Glucose (mg/dL) 52 L 41 L (75-99) mg/dL Calcium (8.4-10.2) mg/dL Phosphorus (2.5-4.5) mg/dL Magnesium (1.6-2.3) mg/dL Total Protein (6.3-8.2) g/dL Albumin (3.5-5.0) g/dL 02/23/20 02/23/20 02/23/20 Range/Units 17:39 17:49 22:41 RBC (4.30-5.90) m/uL Hgb (13.0-17.5) gm/dL Hct (39.0-53.0) % RDW (11.5-15.5) % Plt Count (150-450) k/uL Lymphocytes # (1.0-4.8) k/uL ABG pH (7.35-7.45) ABG pCO2 (35-45) mmHg ABG pO2 (83-108) mmHg ABG HCO3 (21-25) mmol/L ABG O2 Saturation (94-97) % Sodium 134 L (137-145) mmol/L Carbon Dioxide (22-30) mmol/L BUN 62 H (9-20) mg/dL Creatinine 4.78 H (0.66-1.25) mg/dL Glucose 349 H (74-99) mg/dL POC Glucose (mg/dL) 140 H 38 L (75-99) mg/dL Calcium 7.8 L (8.4-10.2) mg/dL Phosphorus (2.5-4.5) mg/dL Magnesium (1.6-2.3) mg/dL Total Protein 4.1 L (6.3-8.2) g/dL Albumin 2.5 L (3.5-5.0) g/dL 02/23/20 02/24/20 02/24/20 Range/Units 23:06 03:40 03:43 RBC (4.30-5.90) m/uL Hgb (13.0-17.5) gm/dL Hct (39.0-53.0) % RDW (11.5-15.5) % Plt Count (150-450) k/uL Lymphocytes # (1.0-4.8) k/uL ABG pH (7.35-7.45) ABG pCO2 (35-45) mmHg ABG pO2 (83-108) mmHg ABG HCO3 (21-25) mmol/L ABG O2 Saturation (94-97) % Sodium (137-145) mmol/L Carbon Dioxide (22-30) mmol/L BUN (9-20) mg/dL Creatinine (0.66-1.25) mg/dL Glucose (74-99) mg/dL POC Glucose (mg/dL) 141 H 37 L 41 L (75-99) mg/dL Calcium (8.4-10.2) mg/dL Phosphorus (2.5-4.5) mg/dL Magnesium (1.6-2.3) mg/dL Total Protein (6.3-8.2) g/dL Albumin (3.5-5.0) g/dL 02/24/20 02/24/20 02/24/20 Range/Units 04:01 05:09 05:15 RBC 2.61 L (4.30-5.90) m/uL Hgb 7.8 L (13.0-17.5) gm/dL Hct 22.5 L (39.0-53.0) % RDW 15.7 H (11.5-15.5) % Plt Count 52 L (150-450) k/uL Lymphocytes # 0.9 L (1.0-4.8) k/uL ABG pH 7.50 H (7.35-7.45) ABG pCO2 25 L (35-45) mmHg ABG pO2 153 H (83-108) mmHg ABG HCO3 20 L (21-25) mmol/L ABG O2 Saturation 99.8 H (94-97) % Sodium (137-145) mmol/L Carbon Dioxide (22-30) mmol/L BUN (9-20) mg/dL Creatinine (0.66-1.25) mg/dL Glucose (74-99) mg/dL POC Glucose (mg/dL) 141 H (75-99) mg/dL Calcium (8.4-10.2) mg/dL Phosphorus (2.5-4.5) mg/dL Magnesium (1.6-2.3) mg/dL Total Protein (6.3-8.2) g/dL Albumin (3.5-5.0) g/dL 02/24/20 02/24/20 02/24/20 Range/Units 05:15 09:52 15:49 RBC (4.30-5.90) m/uL Hgb (13.0-17.5) gm/dL Hct (39.0-53.0) % RDW (11.5-15.5) % Plt Count (150-450) k/uL Lymphocytes # (1.0-4.8) k/uL ABG pH (7.35-7.45) ABG pCO2 (35-45) mmHg ABG pO2 (83-108) mmHg ABG HCO3 (21-25) mmol/L ABG O2 Saturation (94-97) % Sodium 136 L (137-145) mmol/L Carbon Dioxide 19 L (22-30) mmol/L BUN 70 H (9-20) mg/dL Creatinine 4.67 H (0.66-1.25) mg/dL Glucose (74-99) mg/dL POC Glucose (mg/dL) 46 L 116 H (75-99) mg/dL Calcium 7.7 L (8.4-10.2) mg/dL Phosphorus 7.1 H (2.5-4.5) mg/dL Magnesium 3.8 H (1.6-2.3) mg/dL Total Protein (6.3-8.2) g/dL Albumin (3.5-5.0) g/dL Microbiology - Last 24 Hours (Table) 02/23/20 20:20 Gram Stain - Preliminary Sputum Sputum Culture - Preliminary 02/20/20 17:18 Blood Culture - Preliminary Blood No Growth after 72 hours 02/20/20 17:28 Blood Culture - Preliminary Blood No Growth after 72 hours Assessment and Plan Assessment: Acute and chronic systolic nonischemic cardiomyopathy, ejection fraction 25-30% Asystole, status post quadruple, status post resuscitation. Currently intubated on mechanical ventilation for hypoxic respiratory failure Acute kidney injury needing hemodialysis secondary to acute and cardiorenal syndrome Sepsis secondary to pneumonia. Also rule out UTI Acute blood loss anemia secondary to pulling dialysis catheter about, status post blood transfusion History of recurrent left pleural effusion, status post thoracocentesis this admission with culture showing enterobacter, Acetobacter and symmetrical Plan: This is a pleasant 59 years old male who presents with CHF, AKA I on hemodialysis and pneumonia with pleural effusion. Continue with Zosyn. Check urine culture. Follow-up recommendation by several consultants including nep hrologist, director of vital statistics and it infrastructure architect. Dialysis catheter placement per Dr. Saab. Prognosis is poor and sister made him DO NOT RESUSCITATE with pulmonary team Labs and medication were reviewed.. Continue same treatment. Continue with symptomatic treatment. Resume home medication. Monitor lytes and vitals. DVT and GI prophylaxis. Further recommendationsas per clinical course of the areli lopez DVT prophylaxis: Subcutaneous heparin GI Prophylaxis: Ppi Prognosis is guarded and poor
== END 2020-02-26 14:47 | disposition expired | DRG 291 ==
LOC: EC 14:26 → 3SCARD 17:14 → 2SICU 02-03 13:01 → 6NMEDSUR 02-09 03:38 → 2SICU 02-10 20:12 → 3SCARD 02-13 07:36 → 2SICU 02-23 09:07
PROVIDERS: ADMIT Family Medicine; ATTEND Family Medicine
PROC: 0BH17EZ Insertion of Endotracheal Airway into Trachea, Via Natural or Artificial Opening (ICD-10-PCS; principal; 2020-02-03)
PROC: 5A1935Z Respiratory Ventilation, Less than 24 Consecutive Hours (ICD-10-PCS; 2020-02-03)
PROC: 5A09557 Assistance with Respiratory Ventilation, Greater than 96 Consecutive Hours, Continuous Positive Airway Pressure (ICD-10-PCS; 2020-02-03)
PROC: 03HY32Z Insertion of Monitoring Device into Upper Artery, Percutaneous Approach (ICD-10-PCS; 2020-02-03)
PROC: 4A133B1 Monitoring of Arterial Pressure, Peripheral, Percutaneous Approach (ICD-10-PCS; 2020-02-03)
PROC: 4A133J1 Monitoring of Arterial Pulse, Peripheral, Percutaneous Approach (ICD-10-PCS; 2020-02-03)
PROC: 02HV33Z Insertion of Infusion Device into Superior Vena Cava, Percutaneous Approach (ICD-10-PCS; 2020-02-03)
PROC: 0DH67UZ Insertion of Feeding Device into Stomach, Via Natural or Artificial Opening (ICD-10-PCS; 2020-02-03)
PROC: 0W9B3ZZ Drainage of Left Pleural Cavity, Percutaneous Approach (ICD-10-PCS; 2020-02-04)
PROC: 0B9J8ZX Drainage of Left Lower Lung Lobe, Via Natural or Artificial Opening Endoscopic, Diagnostic (ICD-10-PCS; 2020-02-04)
PROC: 0B9G8ZX Drainage of Left Upper Lung Lobe, Via Natural or Artificial Opening Endoscopic, Diagnostic (ICD-10-PCS; 2020-02-04)
PROC: 0B9H8ZX Drainage of Lung Lingula, Via Natural or Artificial Opening Endoscopic, Diagnostic (ICD-10-PCS; 2020-02-04)
PROC: 0BD78ZX Extraction of Left Main Bronchus, Via Natural or Artificial Opening Endoscopic, Diagnostic (ICD-10-PCS; 2020-02-04)
PROC: 0B9J8ZX Drainage of Left Lower Lung Lobe, Via Natural or Artificial Opening Endoscopic, Diagnostic (ICD-10-PCS; 2020-02-07)
PROC: 0BH17EZ Insertion of Endotracheal Airway into Trachea, Via Natural or Artificial Opening (ICD-10-PCS; 2020-02-10)
PROC: 5A1945Z Respiratory Ventilation, 24-96 Consecutive Hours (ICD-10-PCS; 2020-02-10)
PROC: 06HM33Z Insertion of Infusion Device into Right Femoral Vein, Percutaneous Approach (ICD-10-PCS; 2020-02-11)
PROC: 5A1D70Z Performance of Urinary Filtration, Intermittent, Less than 6 Hours Per Day (ICD-10-PCS; 2020-02-11)
PROC: 3E0G76Z Introduction of Nutritional Substance into Upper GI, Via Natural or Artificial Opening (ICD-10-PCS; 2020-02-11)
PROC: 02HV33Z Insertion of Infusion Device into Superior Vena Cava, Percutaneous Approach (ICD-10-PCS; 2020-02-20)
PROC: 06PYX3Z Removal of Infusion Device from Lower Vein, External Approach (ICD-10-PCS; 2020-02-20)
PROC: 30233N1 Transfusion of Nonautologous Red Blood Cells into Peripheral Vein, Percutaneous Approach (ICD-10-PCS; 2020-02-22)
PROC: 5A12012 Performance of Cardiac Output, Single, Manual (ICD-10-PCS; 2020-02-23)
PROC: 0B9J8ZX Drainage of Left Lower Lung Lobe, Via Natural or Artificial Opening Endoscopic, Diagnostic (ICD-10-PCS; 2020-02-23)
PROC: 0B9H8ZX Drainage of Lung Lingula, Via Natural or Artificial Opening Endoscopic, Diagnostic (ICD-10-PCS; 2020-02-23)
PROC: 06HM33Z Insertion of Infusion Device into Right Femoral Vein, Percutaneous Approach (ICD-10-PCS; 2020-02-23)
PROC: 03HY32Z Insertion of Monitoring Device into Upper Artery, Percutaneous Approach (ICD-10-PCS; 2020-02-23)
PROC: 4A133B1 Monitoring of Arterial Pressure, Peripheral, Percutaneous Approach (ICD-10-PCS; 2020-02-23)
PROC: 4A133J1 Monitoring of Arterial Pulse, Peripheral, Percutaneous Approach (ICD-10-PCS; 2020-02-23)
PROC: 0BH17EZ Insertion of Endotracheal Airway into Trachea, Via Natural or Artificial Opening (ICD-10-PCS; 2020-02-23)
PROC: 5A1945Z Respiratory Ventilation, 24-96 Consecutive Hours (ICD-10-PCS; 2020-02-23)
PROC: 3E033XZ Introduction of Vasopressor into Peripheral Vein, Percutaneous Approach (ICD-10-PCS; 2020-02-23)
DX: I13.0 Hypertensive heart and chronic kidney disease with heart failure and stage 1 through stage 4 chronic kidney disease, or unspecified chronic kidney disease (principal); I50.23 Acute on chronic systolic (congestive) heart failure; N17.0 Acute kidney failure with tubular necrosis; A41.59 Other Gram-negative sepsis; R65.20 Severe sepsis without septic shock; J86.9 Pyothorax without fistula; J80 Acute respiratory distress syndrome; J15.6 Pneumonia due to other Gram-negative bacteria; G93.41 Metabolic encephalopathy; G93.49 Other encephalopathy; J94.2 Hemothorax; K86.3 Pseudocyst of pancreas; J44.1 Chronic obstructive pulmonary disease with (acute) exacerbation; J44.0 Chronic obstructive pulmonary disease with (acute) lower respiratory infection; E87.2 Acidosis; G93.1 Anoxic brain damage, not elsewhere classified; D62 Acute posthemorrhagic anemia; E87.1 Hypo-osmolality and hyponatremia; Z16.24 Resistance to multiple antibiotics; K86.1 Other chronic pancreatitis; Z20.828 Contact with and (suspected) exposure to other viral communicable diseases; Z66 Do not resuscitate; Z51.5 Encounter for palliative care; E11.649 Type 2 diabetes mellitus with hypoglycemia without coma; E83.39 Other disorders of phosphorus metabolism; D63.1 Anemia in chronic kidney disease; J98.6 Disorders of diaphragm; K86.81 Exocrine pancreatic insufficiency; I95.9 Hypotension, unspecified; E86.1 Hypovolemia; I95.89 Other hypotension; Z99.81 Dependence on supplemental oxygen; N18.30 Chronic kidney disease, stage 3 unspecified; I42.8 Other cardiomyopathies; E11.42 Type 2 diabetes mellitus with diabetic polyneuropathy; E11.22 Type 2 diabetes mellitus with diabetic chronic kidney disease; E11.65 Type 2 diabetes mellitus with hyperglycemia; I46.9 Cardiac arrest, cause unspecified; I48.91 Unspecified atrial fibrillation; F17.200 Nicotine dependence, unspecified, uncomplicated; Z79.4 Long term (current) use of insulin; K21.9 Gastro-esophageal reflux disease without esophagitis; M19.90 Unspecified osteoarthritis, unspecified site; G89.29 Other chronic pain; E78.5 Hyperlipidemia, unspecified; E87.5 Hyperkalemia; F10.11 Alcohol abuse, in remission; I08.1 Rheumatic disorders of both mitral and tricuspid valves; H91.92 Unspecified hearing loss, left ear; T50.1X5A Adverse effect of loop [high-ceiling] diuretics, initial encounter; F41.9 Anxiety disorder, unspecified; G47.00 Insomnia, unspecified; R53.81 Other malaise; R33.9 Retention of urine, unspecified; Z71.3 Dietary counseling and surveillance; Z79.899 Other long term (current) drug therapy; Z86.73 Personal history of transient ischemic attack (TIA), and cerebral infarction without residual deficits; Z95.810 Presence of automatic (implantable) cardiac defibrillator; Z98.890 Other specified postprocedural states; Z88.6 Allergy status to analgesic agent; Z88.5 Allergy status to narcotic agent; Z91.018 Allergy to other foods; Z82.49 Family history of ischemic heart disease and other diseases of the circulatory system; Z82.5 Family history of asthma and other chronic lower respiratory diseases; Z83.3 Family history of diabetes mellitus
CPT/HCPCS: 31624; 31645; 32555; 36415; 36556; 36558; 36600; 70450; 71045; 71046; 71250; 76604; 76770; 76937; 77001; 80048; 80053; 81001; 82805; 82945; 83036; 83615; 83690; 83735; 83880; 84100; 84132; 84145; 84157; 84484; 85025; 85027; 85379; 85610; 85730; 86140; 86704; 86706; 86850; 86900; 86901; 86920; 87040; 87070; 87075; 87077; 87102; 87116; 87186; 87205; 87206; 87252; 87340; 87496; 87498; 87502; 87529; 87634; 87635; 87798; 88108; 88305; 89050; 90935; 93005; 93970; 94002; 94003; 94640; 94660; 94667; 94668; 94760; 96374; 96375; 99285